=== PATIENT | female | born 1980 | race Caucasian/White ===

== ENCOUNTER 2016-11-22 12:54 | Outpatient (RCR) | payer MEDICARE, MEDICAID ==
[2016-09-03 12:15] LABS: BASOPHILS % (AUTO) 1 % (0-10); EOSINOPHILS # (AUTO) 0.4 10^3/uL (0.0-0.3); EOSINOPHILS % (AUTO) 6 % (0-10); LYMPHOCYTES # (AUTO) 2.5 X 10^3 (1.0-4.0); LYMPHOCYTES % (AUTO) 33 % (12-44); MEAN CORPUSCULAR HEMOGLOBIN 30 PG (25-34); MEAN CORPUSCULAR HGB CONC 33 G/DL (32-36); MEAN CORPUSCULAR VOLUME 91 FL (80-99); MEAN PLATELET VOLUME 10.6 FL (7.4-10.4); MONOCYTES # (AUTO) 0.5 X 10^3 (0.0-1.0); MONOCYTES % (AUTO) 6 % (0-12); NEUTROPHILS # (AUTO) 4.2 X 10^3 (1.8-7.8); NEUTROPHILS % (AUTO) 55 % (42-75); PLATELET COUNT 184 10^3/uL (130-400); RED CELL DISTRIBUTION WIDTH 13.5 % (10.0-14.5); WHITE BLOOD COUNT 7.6 10^3/uL (4.3-11.0)
[2016-09-12 11:45] LABS: BASOPHILS % (AUTO) 0 % (0-10); EOSINOPHILS # (AUTO) 0.4 10^3/uL (0.0-0.3); EOSINOPHILS % (AUTO) 6 % (0-10); LYMPHOCYTES # (AUTO) 2.1 X 10^3 (1.0-4.0); LYMPHOCYTES % (AUTO) 33 % (12-44); MEAN CORPUSCULAR HEMOGLOBIN 30 PG (25-34); MEAN CORPUSCULAR HGB CONC 33 G/DL (32-36); MEAN CORPUSCULAR VOLUME 92 FL (80-99); MEAN PLATELET VOLUME 10.3 FL (7.4-10.4); MONOCYTES # (AUTO) 0.4 X 10^3 (0.0-1.0); MONOCYTES % (AUTO) 7 % (0-12); NEUTROPHILS # (AUTO) 3.4 X 10^3 (1.8-7.8); NEUTROPHILS % (AUTO) 55 % (42-75); PLATELET COUNT 226 10^3/uL (130-400); RED BLOOD COUNT 3.45 10^6/uL (4.35-5.85); RED CELL DISTRIBUTION WIDTH 13.9 % (10.0-14.5); WHITE BLOOD COUNT 6.3 10^3/uL (4.3-11.0)
[2016-09-26 14:36] LABS: BASOPHILS % (AUTO) 1 % (0-10); EOSINOPHILS # (AUTO) 0.4 10^3/uL (0.0-0.3); EOSINOPHILS % (AUTO) 5 % (0-10); LYMPHOCYTES # (AUTO) 2.8 X 10^3 (1.0-4.0); LYMPHOCYTES % (AUTO) 37 % (12-44); MEAN CORPUSCULAR HEMOGLOBIN 30 PG (25-34); MEAN CORPUSCULAR HGB CONC 32 G/DL (32-36); MEAN CORPUSCULAR VOLUME 93 FL (80-99); MEAN PLATELET VOLUME 10.9 FL (7.4-10.4); MONOCYTES # (AUTO) 0.6 X 10^3 (0.0-1.0); MONOCYTES % (AUTO) 8 % (0-12); NEUTROPHILS # (AUTO) 3.8 X 10^3 (1.8-7.8); NEUTROPHILS % (AUTO) 50 % (42-75); PLATELET COUNT 175 10^3/uL (130-400); WHITE BLOOD COUNT 7.6 10^3/uL (4.3-11.0)
[2016-10-10 14:41] LABS: BASOPHILS % (AUTO) 1 % (0-10); EOSINOPHILS # (AUTO) 0.3 10^3/uL (0.0-0.3); EOSINOPHILS % (AUTO) 5 % (0-10); LYMPHOCYTES # (AUTO) 2.1 X 10^3 (1.0-4.0); LYMPHOCYTES % (AUTO) 32 % (12-44); MEAN CORPUSCULAR HEMOGLOBIN 30 PG (25-34); MEAN CORPUSCULAR HGB CONC 33 G/DL (32-36); MEAN CORPUSCULAR VOLUME 91 FL (80-99); MEAN PLATELET VOLUME 10.5 FL (7.4-10.4); MONOCYTES # (AUTO) 0.5 X 10^3 (0.0-1.0); MONOCYTES % (AUTO) 7 % (0-12); NEUTROPHILS # (AUTO) 3.6 X 10^3 (1.8-7.8); NEUTROPHILS % (AUTO) 56 % (42-75); PLATELET COUNT 214 10^3/uL (130-400); RED BLOOD COUNT 3.89 10^6/uL (4.35-5.85); RED CELL DISTRIBUTION WIDTH 13.9 % (10.0-14.5); WHITE BLOOD COUNT 6.5 10^3/uL (4.3-11.0)
[2016-10-24 14:36] LABS: BASOPHILS % (AUTO) 1 % (0-10); EOSINOPHILS # (AUTO) 0.4 10^3/uL (0.0-0.3); EOSINOPHILS % (AUTO) 5 % (0-10); LYMPHOCYTES # (AUTO) 2.9 X 10^3 (1.0-4.0); LYMPHOCYTES % (AUTO) 40 % (12-44); MEAN CORPUSCULAR HEMOGLOBIN 30 PG (25-34); MEAN CORPUSCULAR HGB CONC 33 G/DL (32-36); MEAN CORPUSCULAR VOLUME 90 FL (80-99); MEAN PLATELET VOLUME 11.3 FL (7.4-10.4); MONOCYTES # (AUTO) 0.5 X 10^3 (0.0-1.0); MONOCYTES % (AUTO) 6 % (0-12); NEUTROPHILS # (AUTO) 3.6 X 10^3 (1.8-7.8); NEUTROPHILS % (AUTO) 49 % (42-75); PLATELET COUNT 153 10^3/uL (130-400); RED BLOOD COUNT 3.46 10^6/uL (4.35-5.85); RED CELL DISTRIBUTION WIDTH 12.9 % (10.0-14.5); WHITE BLOOD COUNT 7.3 10^3/uL (4.3-11.0)
[2016-11-07 13:52] LABS: BASOPHILS % (AUTO) 1 % (0-10); EOSINOPHILS # (AUTO) 0.3 10^3/uL (0.0-0.3); EOSINOPHILS % (AUTO) 5 % (0-10); LYMPHOCYTES # (AUTO) 1.9 X 10^3 (1.0-4.0); LYMPHOCYTES % (AUTO) 35 % (12-44); MEAN CORPUSCULAR HEMOGLOBIN 30 PG (25-34); MEAN CORPUSCULAR HGB CONC 32 G/DL (32-36); MEAN CORPUSCULAR VOLUME 93 FL (80-99); MEAN PLATELET VOLUME 10.9 FL (7.4-10.4); MONOCYTES # (AUTO) 0.3 X 10^3 (0.0-1.0); MONOCYTES % (AUTO) 6 % (0-12); NEUTROPHILS # (AUTO) 2.9 X 10^3 (1.8-7.8); NEUTROPHILS % (AUTO) 53 % (42-75); PLATELET COUNT 184 10^3/uL (130-400); RED BLOOD COUNT 3.48 10^6/uL (4.35-5.85); RED CELL DISTRIBUTION WIDTH 13.5 % (10.0-14.5); WHITE BLOOD COUNT 5.5 10^3/uL (4.3-11.0)
[~2016-11-22 12:54] MED LIST: AMOX500C2 PO; BUTA1CAP39 PO; CEPH500C PO; CITA10TA70 PO; DARBEPOETIN 40 MCG/1 ML ARANESP IJ SCH; DICY10CA26 PO; DICY20TA10 PO; DICY20TA57 PO; FLDR.1T PO; FLUD0.1T7 PO; GEMF600T3 PO; GENT3.5O18 OU; GMFB600T PO; INSASP10V SC; INSU100I14 SC; INSU100I16 SQ; INSU100I5 SC; INSU100V16 SC; INSU100V5 SQ; LEVO500T69 PO; LORA10TA7 PO; NITR-65 PO; NOVOLOG PUMP; ONDA8TAB6 PO; ONDAN4ODT PO; SULF1TAB38 PO; TRAM50TA2 PO; TRM50T PO
[2016-11-22 13:10] LABS: BASOPHILS % (AUTO) 1 % (0-10); EOSINOPHILS # (AUTO) 0.2 10^3/uL (0.0-0.3); EOSINOPHILS % (AUTO) 3 % (0-10); LYMPHOCYTES # (AUTO) 2.6 X 10^3 (1.0-4.0); LYMPHOCYTES % (AUTO) 33 % (12-44); MEAN CORPUSCULAR HEMOGLOBIN 31 PG (25-34); MEAN CORPUSCULAR HGB CONC 34 G/DL (32-36); MEAN CORPUSCULAR VOLUME 91 FL (80-99); MEAN PLATELET VOLUME 10.2 FL (7.4-10.4); MONOCYTES # (AUTO) 0.6 X 10^3 (0.0-1.0); MONOCYTES % (AUTO) 7 % (0-12); NEUTROPHILS # (AUTO) 4.5 X 10^3 (1.8-7.8); NEUTROPHILS % (AUTO) 56 % (42-75); PLATELET COUNT 174 10^3/uL (130-400); RED BLOOD COUNT 3.73 10^6/uL (4.35-5.85); RED CELL DISTRIBUTION WIDTH 14.1 % (10.0-14.5); WHITE BLOOD COUNT 7.9 10^3/uL (4.3-11.0)
== END 2016-12-02 | disposition home or self-care (01) ==
LOC: ONC 12:54
PROVIDERS: ATTEND Internal Medicine Hematology & Oncology
DX: N18.9 Chronic kidney disease, unspecified (principal); D63.1 Anemia in chronic kidney disease; E10.21 Type 1 diabetes mellitus with diabetic nephropathy; K58.9 Irritable bowel syndrome, unspecified; Z87.891 Personal history of nicotine dependence; Z79.899 Other long term (current) drug therapy; Z79.4 Long term (current) use of insulin
CPT/HCPCS: 36415; 85025; 96372

== ENCOUNTER → 2017-01-14 | Outpatient (CLI) | payer MEDICARE, MEDICAID ==
[~2017-01-14] MED LIST changes: -DARBEPOETIN 40 MCG/1 ML ARANESP IJ SCH
--- NOTE | 2017-01-16 09:09 | ECHOCARDIOGRAPHY REPORT ---
PROCEDURE PHYSICIAN: MELCHOR ALDANA DATE OF PROCEDURE: 01/14/2017 TWO DIMENSIONAL ECHOCARDIOGRAM REPORT PRIMARY PHYSICIAN: Dr. Peralta OTHER PHYSICIAN: Shanita Soto APRN REFERRING PHYSICIAN: ORDERING PHYSICIAN: Dr. Aldana INDICATION FOR THE PROCEDURE: Shortness of breath. MEASUREMENTS DERIVED VALUES LV DIAMETER (LAX) NORMALS NORMALS Diastolic 4.4 (3.6-5.2) Eject. Fract. (60%+/-6%) Systolic (2.3-3.9) Diastolic Vol. % Shortening (0.22-0.42) Systolic Vol. Aortic Root 2.4 IVS THICKNESS Diastolic 0.9 (0.6-1.1) LVPW THICKNESS Diastolic 0.9 (0.6-1.1) LA DIAMETER Systolic 3.4 (2.1-3.7) DESCRIPTION: Two-dimensional echocardiography shows normal global left ventricular systolic function with normal regional wall motion. Aortic, mitral and tricuspid valve leaflets show good leaflet excursion. There is no significant pericardial effusion. Only minimal amount of pericardial fluid is seen which does not appear to be of any hemodynamic significance. Aortic valve leaflet structure is not very well visualized. Doppler imaging did not indicate significant valvular regurgitation or stenosis. Pulmonary artery systolic pressure is estimated to be approximately 25 mmHg. Mitral inflow is consistent with grade 1 diastolic dysfunction of the left ventricle. There is no evidence of significant intracardiac shunt on this transthoracic echocardiographic study. Inferior vena cava is of normal size and appears mostly collapsed during this study. CONCLUSION: 1. Normal global left ventricular systolic function with an ejection fraction of approximately 65%. 2. No evidence of significant valvular regurgitation or stenosis. 3. Pulmonary artery systolic pressure is estimated to be approximately 25 mmHg. 4. Mild diastolic dysfunction of the left ventricle. Job ID: [id number] Dictated Date: 01/15/2017 16:48:01 Pig Machine Operator Date: 01/16/2017 09:04:29 / heather
== END ==
LOC: CARD 11:33
PROVIDERS: ATTEND Internal Medicine Cardiovascular Disease
DX: R06.02 Shortness of breath (principal)
CPT/HCPCS: 93306

== ENCOUNTER → 2017-01-22 | Outpatient (CLI) | payer MEDICARE, MEDICAID ==
[~2017-01-22] VITALS: Ht 157.5 cm; Wt 62.1 kg
[~2017-01-22] MED LIST changes: +CATHETER FLUSH 10 ML SYR IV PRN; +ONDANSETRON 4 MG/2 ML (SDV) Z0FRAN IVP ONE; +ONDANSETRON 4 MG/2 ML (SDV) Z0FRAN ONE; +REGADENOSON 0.4 MG/5 ML SYR (LEXISCAN) IV ONE
[2017-01-22 12:54] VITALS: BP 203/86
[2017-01-22 13:07] VITALS: BP 148/61
[2017-01-22 13:11] VITALS: BP 170/62
--- NOTE | 2017-01-23 10:16 | STRESS TEST ---
PROCEDURE PHYSICIAN: MELCHOR ALDANA DATE OF PROCEDURE: 01/22/2017 RESTING AND POST REGADENOSON TECHNETIUM 99M TETROFOSMIN SPECT CT IMAGING: ORDERING PHYSICIAN: Dr. Aldana PRIMARY PHYSICIAN: Dr. Peralta. OTHER PHYSICIAN: Shanita Soto APRN CLINICAL DIAGNOSIS: Shortness of breath. Baseline images were carried out after injection of 10.61 mCi of technetium 99m tetrofosmin. This was followed by 0.4 mg of regadenoson and 29 mCi of technetium 99m tetrofosmin for stress imaging. The electrocardiogram showed sinus rhythm at baseline and it did not change significantly with the Regadenoson infusion. The patient had a headache prior to regadenoson infusion, which remained unchanged. She had some nausea with regadenoson infusion, which was treated with intravenous Zofran with success. Review of images at rest and following stress, does not indicate any distinct perfusion defects consistent with significant myocardial ischemia or infarction. Gated images show normal global left ventricular systolic function with normal regional wall motion. Left ventricular ejection fraction is 68%. Left ventricular end diastolic volume is 48 mL. TID is absent (to 0.93). The evaluation of this study is somewhat compromised because of considerable patient motion during image acquisition. CONCLUSIONS: 1. No evidence of significant myocardial ischemia or infarction on this study. 2. Normal regional wall motion. 3. Normal global left ventricular systolic function with a calculated ejection fraction of 68%. 4. Normal left ventricular cavity size. Job ID: [id number] Dictated Date: 01/22/2017 16:25:10 Academic Interventionist Date: 01/23/2017 10:11:58 / heather
== END ==
LOC: CARD 11:06
PROVIDERS: ATTEND Internal Medicine Cardiovascular Disease
DX: R06.02 Shortness of breath (principal)
CPT/HCPCS: 78452; 93017

== ENCOUNTER 2017-02-27 13:33 | Outpatient (RCR) | payer MEDICARE, MEDICAID ==
[2016-12-05 14:14] LABS: BASOPHILS % (AUTO) 1 % (0-10); EOSINOPHILS # (AUTO) 0.4 10^3/uL (0.0-0.3); EOSINOPHILS % (AUTO) 7 % (0-10); LYMPHOCYTES # (AUTO) 2.3 X 10^3 (1.0-4.0); LYMPHOCYTES % (AUTO) 38 % (12-44); MEAN CORPUSCULAR HEMOGLOBIN 30 PG (25-34); MEAN CORPUSCULAR HGB CONC 33 G/DL (32-36); MEAN CORPUSCULAR VOLUME 91 FL (80-99); MEAN PLATELET VOLUME 10.5 FL (7.4-10.4); MONOCYTES # (AUTO) 0.5 X 10^3 (0.0-1.0); MONOCYTES % (AUTO) 8 % (0-12); NEUTROPHILS # (AUTO) 2.9 X 10^3 (1.8-7.8); NEUTROPHILS % (AUTO) 47 % (42-75); PLATELET COUNT 163 10^3/uL (130-400); RED BLOOD COUNT 3.22 10^6/uL (4.35-5.85); RED CELL DISTRIBUTION WIDTH 13.3 % (10.0-14.5); WHITE BLOOD COUNT 6.1 10^3/uL (4.3-11.0)
[2016-12-05 14:49] LABS: ALBUMIN 3.4 G/DL (3.2-4.5); BILIRUBIN,TOTAL 0.2 MG/DL (0.1-1.0); CALCIUM 7.8 MG/DL (8.5-10.1); CREATININE SERUM 1.89 MG/DL (0.60-1.30); POTASSIUM 4.9 MMOL/L (3.6-5.0)
[2016-12-05 16:37] LABS: %SAT TOTAL IRON BINDING CAPIC 51 % (15-50); TIBC 181 ug/dL (280-380)
[2016-12-06 07:43] LABS: FERRITIN 145 ng/mL (15-150); UIBC 89 ug/dL (55-450)
[2016-12-26 14:34] LABS: BASOPHILS # (AUTO) 0.1 10^3/uL (0.0-0.1); BASOPHILS % (AUTO) 1 % (0-10); EOSINOPHILS # (AUTO) 0.3 10^3/uL (0.0-0.3); EOSINOPHILS % (AUTO) 4 % (0-10); LYMPHOCYTES # (AUTO) 2.8 X 10^3 (1.0-4.0); LYMPHOCYTES % (AUTO) 43 % (12-44); MEAN CORPUSCULAR HEMOGLOBIN 30 PG (25-34); MEAN CORPUSCULAR HGB CONC 34 G/DL (32-36); MEAN CORPUSCULAR VOLUME 91 FL (80-99); MONOCYTES # (AUTO) 0.5 X 10^3 (0.0-1.0); MONOCYTES % (AUTO) 8 % (0-12); NEUTROPHILS # (AUTO) 2.9 X 10^3 (1.8-7.8); NEUTROPHILS % (AUTO) 45 % (42-75); PLATELET COUNT 168 10^3/uL (130-400); RED BLOOD COUNT 3.39 10^6/uL (4.35-5.85); RED CELL DISTRIBUTION WIDTH 13.8 % (10.0-14.5); WHITE BLOOD COUNT 6.5 10^3/uL (4.3-11.0)
[2017-01-16 14:07] LABS: BASOPHILS # (AUTO) 0.1 10^3/uL (0.0-0.1); BASOPHILS % (AUTO) 1 % (0-10); EOSINOPHILS # (AUTO) 0.4 10^3/uL (0.0-0.3); EOSINOPHILS % (AUTO) 4 % (0-10); LYMPHOCYTES # (AUTO) 2.5 X 10^3 (1.0-4.0); LYMPHOCYTES % (AUTO) 29 % (12-44); MEAN CORPUSCULAR HEMOGLOBIN 31 PG (25-34); MEAN CORPUSCULAR HGB CONC 33 G/DL (32-36); MEAN CORPUSCULAR VOLUME 92 FL (80-99); MEAN PLATELET VOLUME 10.6 FL (7.4-10.4); MONOCYTES # (AUTO) 0.7 X 10^3 (0.0-1.0); MONOCYTES % (AUTO) 8 % (0-12); NEUTROPHILS # (AUTO) 5.1 X 10^3 (1.8-7.8); NEUTROPHILS % (AUTO) 59 % (42-75); PLATELET COUNT 174 10^3/uL (130-400); RED BLOOD COUNT 2.99 10^6/uL (4.35-5.85); RED CELL DISTRIBUTION WIDTH 13.7 % (10.0-14.5); WHITE BLOOD COUNT 8.7 10^3/uL (4.3-11.0)
[2017-02-06 13:31] LABS: BASOPHILS % (AUTO) 0 % (0-10); EOSINOPHILS # (AUTO) 0.4 10^3/uL (0.0-0.3); EOSINOPHILS % (AUTO) 6 % (0-10); LYMPHOCYTES # (AUTO) 2.4 X 10^3 (1.0-4.0); LYMPHOCYTES % (AUTO) 36 % (12-44); MEAN CORPUSCULAR HEMOGLOBIN 30 PG (25-34); MEAN CORPUSCULAR HGB CONC 32 G/DL (32-36); MEAN CORPUSCULAR VOLUME 92 FL (80-99); MEAN PLATELET VOLUME 10.9 FL (7.4-10.4); MONOCYTES # (AUTO) 0.5 X 10^3 (0.0-1.0); MONOCYTES % (AUTO) 7 % (0-12); NEUTROPHILS # (AUTO) 3.4 X 10^3 (1.8-7.8); NEUTROPHILS % (AUTO) 51 % (42-75); PLATELET COUNT 181 10^3/uL (130-400); RED CELL DISTRIBUTION WIDTH 13.5 % (10.0-14.5); WHITE BLOOD COUNT 6.7 10^3/uL (4.3-11.0)
[2017-02-06 13:57] LABS: ALBUMIN 3.6 G/DL (3.2-4.5); BILIRUBIN,TOTAL 0.2 MG/DL (0.1-1.0); CALCIUM 8.2 MG/DL (8.5-10.1); CREATININE SERUM 2.05 MG/DL (0.60-1.30); POTASSIUM 4.7 MMOL/L (3.6-5.0); TOTAL PROTEIN 6.2 G/DL (6.4-8.2)
[~2017-02-27 13:33] MED LIST changes: +DARBEPOETIN 40 MCG/1 ML ARANESP IJ SCH
== END 2017-03-05 | disposition home or self-care (01) ==
LOC: ONC 13:33
PROVIDERS: ATTEND Internal Medicine Hematology & Oncology
DX: N18.9 Chronic kidney disease, unspecified (principal); D63.1 Anemia in chronic kidney disease; E10.21 Type 1 diabetes mellitus with diabetic nephropathy; K58.9 Irritable bowel syndrome, unspecified; Z87.891 Personal history of nicotine dependence; Z79.899 Other long term (current) drug therapy; Z79.4 Long term (current) use of insulin
CPT/HCPCS: 36415; 80053; 82728; 83540; 85025; 96372; 99213

== ENCOUNTER → 2017-02-27 | Outpatient (CLI) | payer MEDICARE, MEDICAID ==
[~2017-02-27] MED LIST changes: -CATHETER FLUSH 10 ML SYR IV PRN; -ONDANSETRON 4 MG/2 ML (SDV) Z0FRAN IVP ONE; -ONDANSETRON 4 MG/2 ML (SDV) Z0FRAN ONE; -REGADENOSON 0.4 MG/5 ML SYR (LEXISCAN) IV ONE
[2017-02-27 14:38] LABS: BASOPHILS % (AUTO) 1 % (0-10); EOSINOPHILS # (AUTO) 0.3 10^3/uL (0.0-0.3); EOSINOPHILS % (AUTO) 5 % (0-10); LYMPHOCYTES # (AUTO) 2.5 X 10^3 (1.0-4.0); LYMPHOCYTES % (AUTO) 38 % (12-44); MEAN CORPUSCULAR HEMOGLOBIN 31 PG (25-34); MEAN CORPUSCULAR HGB CONC 33 G/DL (32-36); MEAN CORPUSCULAR VOLUME 92 FL (80-99); MEAN PLATELET VOLUME 11.8 FL (7.4-10.4); MONOCYTES # (AUTO) 0.4 X 10^3 (0.0-1.0); MONOCYTES % (AUTO) 6 % (0-12); NEUTROPHILS # (AUTO) 3.3 X 10^3 (1.8-7.8); NEUTROPHILS % (AUTO) 51 % (42-75); PLATELET COUNT 168 10^3/uL (130-400); RED CELL DISTRIBUTION WIDTH 13.2 % (10.0-14.5); WHITE BLOOD COUNT 6.4 10^3/uL (4.3-11.0)
[2017-02-27 14:56] LABS: ALBUMIN 3.5 G/DL (3.2-4.5); CALCIUM 8.3 MG/DL (8.5-10.1); CREATININE SERUM 2.03 MG/DL (0.60-1.30); PHOSPHORUS 3.3 MG/DL (2.3-4.7); POTASSIUM 5.1 MMOL/L (3.6-5.0)
[2017-02-28 07:31] LABS: CALCIUM PARA THYROID HORMONE 8.7 mg/dL (8.5-10.5)
== END ==
LOC: LAB 13:39
PROVIDERS: ATTEND Internal Medicine Nephrology
DX: N18.3 Chronic kidney disease, stage 3 (moderate) (principal); R80.9 Proteinuria, unspecified; E10.9 Type 1 diabetes mellitus without complications; D64.9 Anemia, unspecified; I95.89 Other hypotension
CPT/HCPCS: 36415; 80069; 82306; 83970; 85025

== ENCOUNTER → 2017-05-22 | Outpatient (CLI) | payer MEDICARE, MEDICAID ==
[~2017-05-22] MED LIST changes: -DARBEPOETIN 40 MCG/1 ML ARANESP IJ SCH
== END ==
LOC: LAB 12:43
PROVIDERS: ATTEND Optometrist
DX: E11.9 Type 2 diabetes mellitus without complications (principal)
CPT/HCPCS: 36415; 83036

== ENCOUNTER 2017-06-05 12:46 | Outpatient (RCR) | payer MEDICARE, MEDICAID ==
[2017-03-20 08:37] LABS: BASOPHILS # (AUTO) 0.1 10^3/uL (0.0-0.1); BASOPHILS % (AUTO) 1 % (0-10); EOSINOPHILS # (AUTO) 0.4 10^3/uL (0.0-0.3); EOSINOPHILS % (AUTO) 4 % (0-10); LYMPHOCYTES # (AUTO) 2.9 X 10^3 (1.0-4.0); LYMPHOCYTES % (AUTO) 31 % (12-44); MEAN CORPUSCULAR HEMOGLOBIN 30 PG (25-34); MEAN CORPUSCULAR HGB CONC 33 G/DL (32-36); MEAN CORPUSCULAR VOLUME 91 FL (80-99); MEAN PLATELET VOLUME 11.4 FL (7.4-10.4); MONOCYTES # (AUTO) 0.7 X 10^3 (0.0-1.0); MONOCYTES % (AUTO) 7 % (0-12); NEUTROPHILS # (AUTO) 5.4 X 10^3 (1.8-7.8); NEUTROPHILS % (AUTO) 58 % (42-75); PLATELET COUNT 195 10^3/uL (130-400); RED BLOOD COUNT 3.57 10^6/uL (4.35-5.85); RED CELL DISTRIBUTION WIDTH 13.3 % (10.0-14.5); WHITE BLOOD COUNT 9.3 10^3/uL (4.3-11.0)
[2017-04-10 14:43] LABS: BASOPHILS # (AUTO) 0.1 10^3/uL (0.0-0.1); BASOPHILS % (AUTO) 1 % (0-10); EOSINOPHILS # (AUTO) 0.4 10^3/uL (0.0-0.3); EOSINOPHILS % (AUTO) 4 % (0-10); LYMPHOCYTES # (AUTO) 2.9 X 10^3 (1.0-4.0); LYMPHOCYTES % (AUTO) 27 % (12-44); MEAN CORPUSCULAR HEMOGLOBIN 30 PG (25-34); MEAN CORPUSCULAR HGB CONC 33 G/DL (32-36); MEAN CORPUSCULAR VOLUME 92 FL (80-99); MEAN PLATELET VOLUME 10.7 FL (7.4-10.4); MONOCYTES # (AUTO) 0.6 X 10^3 (0.0-1.0); MONOCYTES % (AUTO) 5 % (0-12); NEUTROPHILS # (AUTO) 6.8 X 10^3 (1.8-7.8); NEUTROPHILS % (AUTO) 64 % (42-75); PLATELET COUNT 165 10^3/uL (130-400); RED BLOOD COUNT 3.57 10^6/uL (4.35-5.85); RED CELL DISTRIBUTION WIDTH 13.7 % (10.0-14.5); WHITE BLOOD COUNT 10.6 10^3/uL (4.3-11.0)
[2017-05-01 13:40] LABS: BASOPHILS % (AUTO) 1 % (0-10); EOSINOPHILS # (AUTO) 0.3 10^3/uL (0.0-0.3); EOSINOPHILS % (AUTO) 4 % (0-10); LYMPHOCYTES # (AUTO) 2.4 X 10^3 (1.0-4.0); LYMPHOCYTES % (AUTO) 34 % (12-44); MEAN CORPUSCULAR HEMOGLOBIN 30 PG (25-34); MEAN CORPUSCULAR HGB CONC 33 G/DL (32-36); MEAN CORPUSCULAR VOLUME 90 FL (80-99); MEAN PLATELET VOLUME 11.8 FL (7.4-10.4); MONOCYTES # (AUTO) 0.3 X 10^3 (0.0-1.0); MONOCYTES % (AUTO) 4 % (0-12); NEUTROPHILS # (AUTO) 3.9 X 10^3 (1.8-7.8); NEUTROPHILS % (AUTO) 57 % (42-75); PLATELET COUNT 173 10^3/uL (130-400); RED BLOOD COUNT 3.88 10^6/uL (4.35-5.85); RED CELL DISTRIBUTION WIDTH 13.4 % (10.0-14.5); WHITE BLOOD COUNT 6.9 10^3/uL (4.3-11.0)
[2017-05-01 13:59] LABS: ALBUMIN 3.9 G/DL (3.2-4.5); BILIRUBIN,TOTAL 0.3 MG/DL (0.1-1.0); CALCIUM 8.5 MG/DL (8.5-10.1); CREATININE SERUM 2.28 MG/DL (0.60-1.30); POTASSIUM 4.3 MMOL/L (3.6-5.0)
[2017-05-22 13:08] LABS: BASOPHILS # (AUTO) 0.1 10^3/uL (0.0-0.1); BASOPHILS % (AUTO) 1 % (0-10); EOSINOPHILS # (AUTO) 0.2 10^3/uL (0.0-0.3); EOSINOPHILS % (AUTO) 3 % (0-10); LYMPHOCYTES # (AUTO) 2.6 X 10^3 (1.0-4.0); LYMPHOCYTES % (AUTO) 38 % (12-44); MEAN CORPUSCULAR HEMOGLOBIN 30 PG (25-34); MEAN CORPUSCULAR HGB CONC 34 G/DL (32-36); MEAN CORPUSCULAR VOLUME 88 FL (80-99); MEAN PLATELET VOLUME 10.6 FL (7.4-10.4); MONOCYTES # (AUTO) 0.6 X 10^3 (0.0-1.0); MONOCYTES % (AUTO) 9 % (0-12); NEUTROPHILS # (AUTO) 3.5 X 10^3 (1.8-7.8); NEUTROPHILS % (AUTO) 50 % (42-75); PLATELET COUNT 219 10^3/uL (130-400); RED CELL DISTRIBUTION WIDTH 13.1 % (10.0-14.5)
[2017-05-22 13:43] LABS: ALBUMIN 3.9 GM/DL (3.2-4.5); BILIRUBIN,TOTAL 0.3 MG/DL (0.1-1.0); CALCIUM 8.8 MG/DL (8.5-10.1); CREATININE SERUM 2.37 MG/DL (0.60-1.30); ICTERUS 0.6 (-100-1.9); POTASSIUM 4.5 MMOL/L (3.6-5.0); TOTAL PROTEIN 7.3 GM/DL (6.4-8.2)
[~2017-06-05 12:46] MED LIST changes: +DARBEPOETIN 40 MCG/1 ML ARANESP IJ SCH; +DARBEPOETIN 40 MCG/ML (ARANESP) 1 ML VIAL SC SCH
[2017-06-05 13:09] LABS: BASOPHILS % (AUTO) 1 % (0-10); EOSINOPHILS # (AUTO) 0.2 10^3/uL (0.0-0.3); EOSINOPHILS % (AUTO) 3 % (0-10); LYMPHOCYTES # (AUTO) 1.9 X 10^3 (1.0-4.0); LYMPHOCYTES % (AUTO) 30 % (12-44); MEAN CORPUSCULAR HEMOGLOBIN 29 PG (25-34); MEAN CORPUSCULAR HGB CONC 33 G/DL (32-36); MEAN CORPUSCULAR VOLUME 90 FL (80-99); MEAN PLATELET VOLUME 10.8 FL (7.4-10.4); MONOCYTES # (AUTO) 0.4 X 10^3 (0.0-1.0); MONOCYTES % (AUTO) 7 % (0-12); NEUTROPHILS # (AUTO) 3.9 X 10^3 (1.8-7.8); NEUTROPHILS % (AUTO) 60 % (42-75); PLATELET COUNT 181 10^3/uL (130-400); RED BLOOD COUNT 3.02 10^6/uL (4.35-5.85); RED CELL DISTRIBUTION WIDTH 13.1 % (10.0-14.5); WHITE BLOOD COUNT 6.4 10^3/uL (4.3-11.0)
[2017-06-05 13:49] LABS: CALCIUM 8.7 MG/DL (8.5-10.1); CREATININE SERUM 2.19 MG/DL (0.60-1.30); POTASSIUM 5.2 MMOL/L (3.6-5.0)
== END 2017-06-18 | disposition home or self-care (01) ==
LOC: ONC 12:46
PROVIDERS: ATTEND Internal Medicine Hematology & Oncology
DX: N18.3 Chronic kidney disease, stage 3 (moderate) (principal); D63.1 Anemia in chronic kidney disease; E10.21 Type 1 diabetes mellitus with diabetic nephropathy; K58.9 Irritable bowel syndrome, unspecified; Z87.891 Personal history of nicotine dependence; Z79.899 Other long term (current) drug therapy; Z79.4 Long term (current) use of insulin
CPT/HCPCS: 36415; 80048; 80053; 82728; 83540; 85025; 96372; 99213

== ENCOUNTER → 2017-06-17 | Outpatient (CLI) | payer MEDICARE, MEDICAID ==
[~2017-06-17] MED LIST changes: -DARBEPOETIN 40 MCG/1 ML ARANESP IJ SCH; -DARBEPOETIN 40 MCG/ML (ARANESP) 1 ML VIAL SC SCH
[2017-06-17 13:01] LABS: MEAN PLATELET VOLUME 10.7 FL (7.4-10.4); RED BLOOD COUNT 3.44 10^6/uL (4.35-5.85); RED CELL DISTRIBUTION WIDTH 14.1 % (10.0-14.5); WHITE BLOOD COUNT 8.2 10^3/uL (4.3-11.0)
[2017-06-17 13:09] LABS: BILIRUBIN,URINE NEGATIVE (NEGATIVE); KETONES,URINE NEGATIVE (NEGATIVE); LEUKOCYTE ESTERASE ,URINE NEGATIVE (NEGATIVE); NITRITE,URINE NEGATIVE (NEGATIVE); PH,URINE 6 (5-9); PROTEIN,URINE 3+ (NEGATIVE); UROBILINOGEN,URINE NORMAL (NORMAL)
[2017-06-17 13:18] LABS: ALBUMIN 3.7 GM/DL (3.2-4.5); CALCIUM 8.4 MG/DL (8.5-10.1); CREATININE SERUM 2.22 MG/DL (0.60-1.30); PHOSPHORUS 3.5 MG/DL (2.3-4.7); POTASSIUM 4.5 MMOL/L (3.6-5.0)
[2017-06-17 13:20] LABS: WBC,URINE RARE /HPF
[2017-06-17 13:28] LABS: PROTEIN/CREATININE RATIO 0.51
== END ==
LOC: LAB 12:31
PROVIDERS: ATTEND Internal Medicine Nephrology
DX: E10.22 Type 1 diabetes mellitus with diabetic chronic kidney disease (principal); R80.9 Proteinuria, unspecified; D64.9 Anemia, unspecified; I95.89 Other hypotension; I95.1 Orthostatic hypotension
CPT/HCPCS: 36415; 80069; 81000; 82306; 82570; 84156; 85027

== ENCOUNTER 2017-07-31 11:29 | Outpatient (RCR) | payer MEDICARE, MEDICAID ==
[2017-07-03 14:44] LABS: BASOPHILS % (AUTO) 1 % (0-10); EOSINOPHILS # (AUTO) 0.3 10^3/uL (0.0-0.3); EOSINOPHILS % (AUTO) 4 % (0-10); LYMPHOCYTES # (AUTO) 2.6 X 10^3 (1.0-4.0); LYMPHOCYTES % (AUTO) 37 % (12-44); MEAN CORPUSCULAR HGB CONC 33 G/DL (32-36); MEAN CORPUSCULAR VOLUME 90 FL (80-99); MEAN PLATELET VOLUME 10.2 FL (7.4-10.4); MONOCYTES # (AUTO) 0.5 X 10^3 (0.0-1.0); MONOCYTES % (AUTO) 7 % (0-12); NEUTROPHILS # (AUTO) 3.7 X 10^3 (1.8-7.8); NEUTROPHILS % (AUTO) 52 % (42-75); PLATELET COUNT 198 10^3/uL (130-400); RED BLOOD COUNT 3.36 10^6/uL (4.35-5.85); RED CELL DISTRIBUTION WIDTH 13.6 % (10.0-14.5); WHITE BLOOD COUNT 7.1 10^3/uL (4.3-11.0)
[2017-07-03 14:45] LABS: MEAN CORPUSCULAR HEMOGLOBIN 29 PG (25-34)
[~2017-07-31 11:29] MED LIST changes: +DARBEPOETIN 40 MCG/1 ML ARANESP IJ SCH; +DARBEPOETIN 40 MCG/ML (ARANESP) 1 ML VIAL SC SCH
[2017-07-31 11:51] LABS: BASOPHILS # (AUTO) 0.1 10^3/uL (0.0-0.1); BASOPHILS % (AUTO) 1 % (0-10); EOSINOPHILS # (AUTO) 0.4 10^3/uL (0.0-0.3); EOSINOPHILS % (AUTO) 7 % (0-10); LYMPHOCYTES # (AUTO) 2.7 X 10^3 (1.0-4.0); LYMPHOCYTES % (AUTO) 43 % (12-44); MEAN CORPUSCULAR HEMOGLOBIN 30 PG (25-34); MEAN CORPUSCULAR HGB CONC 32 G/DL (32-36); MEAN CORPUSCULAR VOLUME 92 FL (80-99); MEAN PLATELET VOLUME 11.5 FL (7.4-10.4); MONOCYTES # (AUTO) 0.3 X 10^3 (0.0-1.0); MONOCYTES % (AUTO) 5 % (0-12); NEUTROPHILS # (AUTO) 2.9 X 10^3 (1.8-7.8); NEUTROPHILS % (AUTO) 45 % (42-75); PLATELET COUNT 191 10^3/uL (130-400); RED BLOOD COUNT 3.23 10^6/uL (4.35-5.85); RED CELL DISTRIBUTION WIDTH 12.9 % (10.0-14.5); WHITE BLOOD COUNT 6.4 10^3/uL (4.3-11.0)
== END 2017-08-24 | disposition home or self-care (01) ==
LOC: ONC 11:29
PROVIDERS: ATTEND Internal Medicine Hematology & Oncology
DX: N18.3 Chronic kidney disease, stage 3 (moderate) (principal); D63.1 Anemia in chronic kidney disease; E10.21 Type 1 diabetes mellitus with diabetic nephropathy; K58.9 Irritable bowel syndrome, unspecified; Z87.891 Personal history of nicotine dependence; Z79.899 Other long term (current) drug therapy; Z79.4 Long term (current) use of insulin
CPT/HCPCS: 36415; 85025; 96372

== ENCOUNTER → 2017-08-26 | Outpatient (CLI) | payer MEDICARE, MEDICAID ==
[~2017-08-26] MED LIST changes: -DARBEPOETIN 40 MCG/1 ML ARANESP IJ SCH; -DARBEPOETIN 40 MCG/ML (ARANESP) 1 ML VIAL SC SCH
[2017-08-26 12:10] LABS: MEAN PLATELET VOLUME 11.5 FL (7.4-10.4); RED BLOOD COUNT 3.44 10^6/uL (4.35-5.85); RED CELL DISTRIBUTION WIDTH 12.9 % (10.0-14.5); WHITE BLOOD COUNT 7.3 10^3/uL (4.3-11.0)
[2017-08-26 12:15] LABS: BILIRUBIN,URINE NEGATIVE (NEGATIVE); KETONES,URINE NEGATIVE (NEGATIVE); LEUKOCYTE ESTERASE ,URINE NEGATIVE (NEGATIVE); NITRITE,URINE POSITIVE (NEGATIVE); PH,URINE 6 (5-9); PROTEIN,URINE 2+ (NEGATIVE); UROBILINOGEN,URINE NORMAL (NORMAL)
[2017-08-26 12:29] LABS: ALBUMIN 3.7 GM/DL (3.2-4.5); CALCIUM 8.8 MG/DL (8.5-10.1); CREATININE SERUM 2.25 MG/DL (0.60-1.30); PHOSPHORUS 3.2 MG/DL (2.3-4.7); POTASSIUM 4.2 MMOL/L (3.6-5.0); URIC ACID 6.1 MG/DL (2.6-7.2)
[2017-08-26 12:34] LABS: PROTEIN/CREATININE RATIO 0.36
[2017-08-27 08:07] LABS: CALCIUM PARA THYROID HORMONE 8.7 mg/dL (8.5-10.5)
== END ==
LOC: LAB 11:40
PROVIDERS: ATTEND Internal Medicine Nephrology
DX: E10.9 Type 1 diabetes mellitus without complications (principal); N18.3 Chronic kidney disease, stage 3 (moderate); I95.1 Orthostatic hypotension; R80.9 Proteinuria, unspecified; D64.9 Anemia, unspecified
CPT/HCPCS: 36415; 80069; 81000; 82306; 82570; 82728; 83540; 83970; 84156; 84550; 85027; 87088

== ENCOUNTER 2017-11-20 14:55 | Outpatient (RCR) | payer MEDICARE, MEDICAID ==
[2017-08-28 13:31] LABS: BASOPHILS # (AUTO) 0.1 10^3/uL (0.0-0.1); BASOPHILS % (AUTO) 1 % (0-10); EOSINOPHILS # (AUTO) 0.4 10^3/uL (0.0-0.3); EOSINOPHILS % (AUTO) 6 % (0-10); HEMATOCRIT 31 % (35-52); HEMOGLOBIN 10.1 G/DL (11.5-16.0); LYMPHOCYTES # (AUTO) 2.4 X 10^3 (1.0-4.0); LYMPHOCYTES % (AUTO) 39 % (12-44); MEAN CORPUSCULAR HEMOGLOBIN 30 PG (25-34); MEAN CORPUSCULAR HGB CONC 33 G/DL (32-36); MEAN CORPUSCULAR VOLUME 91 FL (80-99); MEAN PLATELET VOLUME 11.9 FL (7.4-10.4); MONOCYTES # (AUTO) 0.4 X 10^3 (0.0-1.0); MONOCYTES % (AUTO) 6 % (0-12); NEUTROPHILS % (AUTO) 48 % (42-75); PLATELET COUNT 178 10^3/uL (130-400); RED BLOOD COUNT 3.42 10^6/uL (4.35-5.85); RED CELL DISTRIBUTION WIDTH 12.9 % (10.0-14.5); WHITE BLOOD COUNT 6.2 10^3/uL (4.3-11.0)
[2017-08-28 13:51] LABS: ALBUMIN 3.6 GM/DL (3.2-4.5); BILIRUBIN,TOTAL 0.2 MG/DL (0.1-1.0); CALCIUM 8.6 MG/DL (8.5-10.1); CREATININE SERUM 2.26 MG/DL (0.60-1.30); POTASSIUM 4.3 MMOL/L (3.6-5.0); TOTAL PROTEIN 6.4 GM/DL (6.4-8.2)
[2017-09-26 16:26] LABS: BASOPHILS % (AUTO) 1 % (0-10); EOSINOPHILS # (AUTO) 0.2 10^3/uL (0.0-0.3); EOSINOPHILS % (AUTO) 3 % (0-10); HEMATOCRIT 32 % (35-52); HEMOGLOBIN 10.4 G/DL (11.5-16.0); LYMPHOCYTES # (AUTO) 2.7 X 10^3 (1.0-4.0); LYMPHOCYTES % (AUTO) 40 % (12-44); MEAN CORPUSCULAR HEMOGLOBIN 30 PG (25-34); MEAN CORPUSCULAR HGB CONC 33 G/DL (32-36); MEAN CORPUSCULAR VOLUME 92 FL (80-99); MEAN PLATELET VOLUME 11.9 FL (7.4-10.4); MONOCYTES # (AUTO) 0.4 X 10^3 (0.0-1.0); MONOCYTES % (AUTO) 6 % (0-12); NEUTROPHILS # (AUTO) 3.4 X 10^3 (1.8-7.8); NEUTROPHILS % (AUTO) 50 % (42-75); PLATELET COUNT 188 10^3/uL (130-400); RED BLOOD COUNT 3.48 10^6/uL (4.35-5.85); WHITE BLOOD COUNT 6.8 10^3/uL (4.3-11.0)
[2017-10-23 15:17] LABS: BASOPHILS % (AUTO) 0 % (0-10); EOSINOPHILS # (AUTO) 0.3 10^3/uL (0.0-0.3); EOSINOPHILS % (AUTO) 3 % (0-10); HEMATOCRIT 31 % (35-52); HEMOGLOBIN 10.6 G/DL (11.5-16.0); LYMPHOCYTES # (AUTO) 3.1 X 10^3 (1.0-4.0); LYMPHOCYTES % (AUTO) 35 % (12-44); MEAN CORPUSCULAR HEMOGLOBIN 31 PG (25-34); MEAN CORPUSCULAR HGB CONC 34 G/DL (32-36); MEAN CORPUSCULAR VOLUME 90 FL (80-99); MEAN PLATELET VOLUME 11.6 FL (7.4-10.4); MONOCYTES # (AUTO) 0.5 X 10^3 (0.0-1.0); MONOCYTES % (AUTO) 6 % (0-12); NEUTROPHILS # (AUTO) 5.1 X 10^3 (1.8-7.8); NEUTROPHILS % (AUTO) 57 % (42-75); PLATELET COUNT 208 10^3/uL (130-400); RED BLOOD COUNT 3.47 10^6/uL (4.35-5.85); RED CELL DISTRIBUTION WIDTH 13.4 % (10.0-14.5)
[~2017-11-20 14:55] MED LIST changes: +DARBEPOETIN 40 MCG/1 ML ARANESP IJ SCH; +DARBEPOETIN 40 MCG/ML (ARANESP) 1 ML VIAL SC SCH
[2017-11-20 15:06] LABS: BASOPHILS # (AUTO) 0.1 10^3/uL (0.0-0.1); BASOPHILS % (AUTO) 1 % (0-10); EOSINOPHILS # (AUTO) 0.4 10^3/uL (0.0-0.3); EOSINOPHILS % (AUTO) 4 % (0-10); HEMATOCRIT 33 % (35-52); HEMOGLOBIN 10.8 G/DL (11.5-16.0); LYMPHOCYTES # (AUTO) 3.2 X 10^3 (1.0-4.0); LYMPHOCYTES % (AUTO) 38 % (12-44); MEAN CORPUSCULAR HEMOGLOBIN 30 PG (25-34); MEAN CORPUSCULAR HGB CONC 33 G/DL (32-36); MEAN CORPUSCULAR VOLUME 91 FL (80-99); MEAN PLATELET VOLUME 11.3 FL (7.4-10.4); MONOCYTES # (AUTO) 0.6 X 10^3 (0.0-1.0); MONOCYTES % (AUTO) 7 % (0-12); NEUTROPHILS # (AUTO) 4.3 X 10^3 (1.8-7.8); NEUTROPHILS % (AUTO) 50 % (42-75); PLATELET COUNT 213 10^3/uL (130-400); RED BLOOD COUNT 3.59 10^6/uL (4.35-5.85); RED CELL DISTRIBUTION WIDTH 13.3 % (10.0-14.5); WHITE BLOOD COUNT 8.5 10^3/uL (4.3-11.0)
== END 2017-11-26 | disposition home or self-care (01) ==
LOC: ONC 14:55
PROVIDERS: ATTEND Internal Medicine Hematology & Oncology
DX: N18.3 Chronic kidney disease, stage 3 (moderate) (principal); D63.1 Anemia in chronic kidney disease; E10.21 Type 1 diabetes mellitus with diabetic nephropathy; K58.9 Irritable bowel syndrome, unspecified; Z87.891 Personal history of nicotine dependence; Z79.899 Other long term (current) drug therapy; Z79.4 Long term (current) use of insulin
CPT/HCPCS: 36415; 80053; 85025; 96372

== ENCOUNTER → 2018-02-21 | Outpatient (CLI) | payer MEDICARE, MEDICAID ==
[~2018-02-21] MED LIST changes: -DARBEPOETIN 40 MCG/1 ML ARANESP IJ SCH; -DARBEPOETIN 40 MCG/ML (ARANESP) 1 ML VIAL SC SCH
[2018-02-21 11:35] LABS: HEMOGLOBIN 9.9 G/DL (11.5-16.0); MEAN PLATELET VOLUME 10.9 FL (7.4-10.4); RED BLOOD COUNT 3.31 10^6/uL (4.35-5.85); RED CELL DISTRIBUTION WIDTH 13.2 % (10.0-14.5); WHITE BLOOD COUNT 9.3 10^3/uL (4.3-11.0)
[2018-02-21 11:42] LABS: BILIRUBIN,URINE NEGATIVE (NEGATIVE); CLARITY,URINE CLEAR; COLOR,URINE YELLOW; GLUCOSE, URINE (UA) NEGATIVE (NEGATIVE); KETONES,URINE NEGATIVE (NEGATIVE); LEUKOCYTE ESTERASE ,URINE NEGATIVE (NEGATIVE); NITRITE,URINE NEGATIVE (NEGATIVE); PH,URINE 7 (5-9); PROTEIN,URINE 2+ (NEGATIVE); UROBILINOGEN,URINE NORMAL (NORMAL)
[2018-02-21 11:55] LABS: ALBUMIN 3.5 GM/DL (3.2-4.5); CALCIUM 8.2 MG/DL (8.5-10.1); CREATININE SERUM 2.16 MG/DL (0.60-1.30); PHOSPHORUS 3.1 MG/DL (2.3-4.7); POTASSIUM 4.1 MMOL/L (3.6-5.0); URIC ACID 6.2 MG/DL (2.6-7.2)
[2018-02-21 11:59] LABS: BACTERIA,URINE TRACE /HPF
== END ==
LOC: LAB 11:18
PROVIDERS: ATTEND Internal Medicine Nephrology
DX: E10.9 Type 1 diabetes mellitus without complications (principal); N18.3 Chronic kidney disease, stage 3 (moderate); R80.9 Proteinuria, unspecified; D64.9 Anemia, unspecified; I95.89 Other hypotension; I95.1 Orthostatic hypotension; E55.9 Vitamin D deficiency, unspecified
CPT/HCPCS: 36415; 80069; 81000; 82570; 83735; 84156; 84550; 85027

== ENCOUNTER → 2018-03-04 | Outpatient (CLI) | payer MEDICARE, MEDICAID ==
[2018-03-04 09:24] LABS: FREE T4 (FREE THYROXINE) 1.22 NG/DL (0.70-1.48)
== END ==
LOC: LAB 08:10
DX: E10.8 Type 1 diabetes mellitus with unspecified complications (principal)
CPT/HCPCS: 36415; 82024; 82533; 82607; 82784; 83516; 84439; 84443; 86255; 86376

== ENCOUNTER 2018-04-23 05:40 | Outpatient (CLI) | payer MEDICARE, MEDICAID ==
[~2018-04-23] VITALS: Ht 157.5 cm; Wt 54.4 kg
[2018-04-23] MEDS ORDERED: CITA20TA9 PO (11:07)
[2018-04-23] MEDS ORDERED: CHOL400T PO (11:07)
[2018-04-23] MEDS ORDERED: ROPI0.25 PO (11:07)
[2018-04-23] MEDS ORDERED: BUTA1CAP17 PO (11:07)
[2018-04-23] MEDS ORDERED: ONDA4TAB8 SL (11:07)
[2018-04-23] MEDS ORDERED: RIZA10TA25 PO (11:07)
[2018-04-23] MEDS ORDERED: PNV11TAB5 PO (11:07)
[2018-04-23] MEDS ORDERED: FLDR.1T PO (11:07)
[2018-04-23] MEDS ORDERED: NORG1TAB83 PO (11:07)
[2018-04-23] MEDS ORDERED: TRAM50TA2 PO (11:07)
[2018-04-23] MEDS ORDERED: SODI650T PO (11:07)
[2018-04-23] MEDS ORDERED: DICY20TA10 PO (11:07)
[2018-04-23] MEDS ORDERED: TOPI25TA10 PO (11:07)
[2018-04-23] MEDS ORDERED: FERR325T5 PO (11:07)
[2018-04-23] MEDS ORDERED: DARB40DI IJ (11:07)
== END 2018-04-23 11:13 ==
LOC: PREOP 05:40
PROVIDERS: ATTEND Specialist
DX: Z01.818 Encounter for other preprocedural examination (principal); H25.11 Age-related nuclear cataract, right eye

== ENCOUNTER 2018-04-25 06:34 | Day surgery (SDC) | payer MEDICARE, MEDICAID ==
[~2018-04-25] VITALS: Ht 157.5 cm; Wt 54.4 kg
[~2018-04-25 06:34] MED LIST changes: +BUTA1CAP17 PO; +CHOL400T PO; +CITA20TA9 PO; +DARB40DI IJ; +FERR325T5 PO; +NORG1TAB83 PO; +ONDA4TAB8 SL; +PNV11TAB5 PO; +RIZA10TA25 PO; +ROPI0.25 PO; +SODI650T PO; +TOPI25TA10 PO
--- OUTSIDE RECORDS SUMMARY | 2018-04-25 06:37 | XMS REPORT | Clinical Summary ---
Author Author [facility] Organization [facility] Address Unknown Phone Unavailable Care Team Providers Care Lyft Driver Name Role Phone Charles Shanita [facility] DIRECTOR PCP Source Comments Some departments are not documenting in the electronic medical record. If you do not see the information that you expected, contact Release of Information in the Health Information Management department at [phone] for further assistance in locating additional records.[facility] Allergies Active Allergy Reactions Severity Noted Date Comments Losartan UNKNOWN Low 02/21/2018 Gabapentin UNKNOWN Low 02/21/2018 Lisinopril UNKNOWN Low 02/21/2018 Niacin UNKNOWN Low 02/21/2018 Zghgnim-Hkf-Zph Reductase HIVES, SEE COMMENTS, Medium 02/28/2018 Difficulty breathing Inhibitors EDEMA Current Medications Prescription Sig. Disp. Refills Start End Date Status Date vitamins, w/iron Take 1 tablet by mouth Active & folate 65/1 mg tab daily. darbepoetin goyo Inject 100 mcg under the Active (ARANESP) 100 mcg/0.5 mL skin once. syrg fludrocortisone Take 0.1 mg by mouth Active (FLORINEF) 0.1 mg tablet daily. ferrous sulfate (FEOSOL, Take 325 mg by mouth Active FEROSUL) 325 mg (65 mg daily. Take on an empty iron) tablet stomach at least 1 hour before or 2 hours after food. cholecalciferol (VITAMIN Take 400 Units by mouth Active D-3) 400 unit tab tablet daily. GLUCAGON IJ Inject to area(s) as Active directed. ondansetron (ZOFRAN) 4 mg Take 4 mg by mouth every Active tablet 8 hours as needed for Nausea or Vomiting. blood sugar diagnostic Use 1 strip as directed Active test strip ten times daily. citalopram (CELEXA) 20 mg Take 20 mg by mouth Active tablet daily. rOPINIRole (REQUIP) 0.25 Take 0.25 mg by mouth Active mg tablet three times daily. dicyclomine (BENTYL) 20 Take 20 mg by mouth every Active mg tablet 6 hours. sodium bicarbonate 325 mg Take 650 mg by mouth Active tablet twice daily. rizatriptan (MAXALT-OBSTETRICIAN AND GYNAECOLOGIST) Dissolve 10 mg by mouth Active 10 mg rapid dissolve once as needed for tablet Headache. butalbital/acetaminophen/ Take 1 tablet by mouth Active caffeine(+) (FIORICET) every 4 hours as needed 50/325/40 mg tablet for Headache. traMADol (ULTRAM) 50 mg Take 50 mg by mouth every Active tablet 6 hours as needed for Pain. topiramate (TOPAMAX) 25 Take 25 mg by mouth every Active mg tablet 12 hours. norgestimate/ethinyl Take 1 tablet by mouth Active estradiol(+) (ORTHO daily. TRI-CYCLEN; TRI-SPRINTEC) .18/.215/.25-35 mg-mcg (28) tablet NOVOLOG U-100 INSULIN Inject under the skin. 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); CKD (chronic kidney disease) stage 3, GFR 30-59 ml/min; Diabetic polyneuropathy associated with type 1 diabetes mellitus (HCC); Autonomic dysfunction; Orthostatic hypotension; Supine hypertension from Last 3 Months Family History Relation Name Status Comments Son Alive Social History Tobacco Use Types Packs/Day Years Used Date Former Smoker Smokeless Tobacco: Never Used Sex Assigned at Date Recorded Not on file Last Filed Vital Signs Vital Sign Reading Time Taken Blood Pressure 163/91 02/28/2018 10:31 AM CDT Pulse 96 02/28/2018 10:31 AM CDT Temperature - - Respiratory Rate - - Oxygen Saturation - - Inhaled Oxygen - - Concentration Weight 55.4 kg (122 lb 3.2 oz) 02/28/2018 10:10 AM CDT Height 157.5 cm (5' 2") 02/28/2018 10:10 AM CDT Body Mass Index 22.35 02/28/2018 10:10 AM CDT Plan of Treatment Health Maintenance Due Date Last Done Comments PHYSICAL (COMPREHENSIVE) 1988 EXAM PERTUSSIS VACCINE 1992 HIV SCREENING 1996 TETANUS VACCINE 1998 DILATED EYE EXAM 1999 FOOT EXAM 1999 MICROALBUMIN 1999 PNEUMONIA VACCINE (DM) 1999 CERVICAL CANCER SCREENING 2011 INFLUENZA VACCINE 08/25/2018 HBA1C 08/30/2018 02/28/2018 Procedures Procedure Name Priority Date/Time Associated Diagnosis Comments INSULIN PUMP DOWNLOAD Routine 02/28/2018 Uncontrolled type 1 10:20 AM CDT diabetes mellitus with complication (HCC) from Last 3 Months Results * INSULIN PUMP DOWNLOAD (02/28/2018 10:20 AM) Specimen Performing Laboratory IN CLINIC * POC HEMOGLOBIN A1C (02/28/2018 10:20 AM) Component Value Ref Range Poc Hemoglobin A1C 7.1 Specimen Performing Laboratory Blood, capillary - Blood IN CLINIC * POC GLUCOSE QUANTITATIVE BLOOD (02/28/2018 10:15 AM) Component Value Ref Range Glucose, POC 223 Specimen Performing Laboratory Blood, capillary IN CLINIC from Last 3 Months
--- OUTSIDE RECORDS SUMMARY | 2018-04-25 06:37 | XMS REPORT | Encounter Summary ---
Author Author [facility] Organization [facility] Address Unknown Phone Unavailable Care Team Providers Care Manager Environmental Health Name Role Phone CharlesShanita ORCHID HAND PCP Reason for Visit * Reason Comments Other Med Records Encounter Details Date Type Department Care Team Description 03/04/2018 Telephone [facility] Deisy Baeza MD Other ( Med Records) Physicians - Internal [address] [facility] Medicine [address] [place] [address] Medical Office Bldg 5th [phone] [address] [place] [address] Social History Tobacco Use Types Packs/Day Years Used Date Former Smoker Smokeless Tobacco: Never Used Sex Assigned at Date Recorded Not on file as of this encounter Miscellaneous Notes * Telephone Encounter - eRyes Valerio LPN - 03/04/2018 11:41 AM CDT Received medical records from [facility]. Routing to Dr. Baeza for her review. in this encounter Plan of Treatment Not on fileas of this encounter Visit Diagnoses Not on filein this encounter
--- OUTSIDE RECORDS SUMMARY | 2018-04-25 06:37 | XMS REPORT | Encounter Summary ---
Author Author [facility] Organization [facility] Address Unknown Phone Unavailable Care Team Providers Care Waste Disposal Plant Operator Name Role Phone Shanita Soto APRN PCP Reason for Visit * Reason Comments Referral Encounter Details Date Type Department Care Team Description 03/03/2018 Telephone [facility] Deisy Baeza MD Referral Physicians - Internal [address] [facility] Medicine [address] [place] [address] Medical Office [facility] [phone] [address] [place] [address] Social History Tobacco Use Types Packs/Day Years Used Date Former Smoker Smokeless Tobacco: Never Used Sex Assigned at Date Recorded Not on file as of this encounter Miscellaneous Notes * Telephone Encounter - Reyes Valerio LPN - 03/04/2018 8:38 AM CDT Fax verifications received 03/03 at 3:27 pm. * Telephone Encounter - Reyes Valerio LPN - 03/03/2018 3:36 PM CDT Faxed referrals to Dr. Neisha Cifuentes at [phone] Shanita Soto at [phone]. * Telephone Encounter - Reyes Valerio LPN - 03/03/2018 2:11 PM CDT Called patient. LVM per MARGO with provider message. * Telephone Encounter - Deisy Baeza MD - 03/03/2018 11:17 AM CDT Please call patient and let her know that I have sent a cardiology referral here at to discuss alternative options to bubba. in this encounter Plan of Treatment Not on fileas of this encounter Visit Diagnoses Not on filein this encounter
--- OUTSIDE RECORDS SUMMARY | 2018-04-25 06:37 | XMS REPORT | Encounter Summary ---
Author Author [facility] Organization [facility] Address Unknown Phone Unavailable Care Team Providers Care System Sales Consultant Name Role Phone Shanita Soto LOCK AND DAM OPERATOR PCP Reason for Visit * Reason Comments Paperwork [facility]/Dr. Shanita Soto's office Encounter Details Date Type Department Care Team Description 03/05/2018 Telephone [facility] Deisy Baeza MD Paperwork ([facility]LE/Dr. Diehl Physicians - Internal [address] Soto's office) Medicine [address] [facility] [address] [place] [address] [place], [place] [phone] [id number] [phone] Social History Tobacco Use Types Packs/Day Years Used Date Former Smoker Smokeless Tobacco: Never Used Sex Assigned at Date Recorded Not on file as of this encounter Miscellaneous Notes * Telephone Encounter - Gisel Keith RN - 03/05/2018 2:53 PM CDT Received requested information from Dr. Shanita Soto's office/[facility] Will place in Dr Bejarano's folder for her review Closing encounter in this encounter Plan of Treatment Not on fileas of this encounter Visit Diagnoses Not on filein this encounter
--- OUTSIDE RECORDS SUMMARY | 2018-04-25 06:37 | XMS REPORT | Encounter Summary ---
Author Author [facility] Organization [facility] Address Unknown Phone Unavailable Care Team Providers Care Truck Driver Name Role Phone CharlesShanita sanchez PET SITTER PCP Reason for Visit * Reason Comments Other Diabetic Supplies Encounter Details Date Type Department Care Team Description 03/27/2018 Telephone [facility] Deisy Baeza MD Other ( Diabetic Supplies) Physicians - Internal [address] [facility] Medicine [address] [place] [address] Medical Office Bldg 5th [phone] Fl Pod [address] [place] [address] Social History Tobacco Use Types Packs/Day Years Used Date Former Smoker Smokeless Tobacco: Never Used Sex Assigned at Date Recorded Not on file as of this encounter Miscellaneous Notes * Telephone Encounter - Reyes Valerio LPN - 04/03/2018 2:01 PM CDT Received LMN for insulin pump and supplies from [employer]. Routed to Dr. Linton for signature. Faxed signed LMN to [phone]. Fax verification received 03/31. * Telephone Encounter - Reyes Valerio LPN - 03/27/2018 1:42 PM CDT Patient called back. Patient stated DME company [employer] will fax request. Will call patient if not received by Saturday 03/31. * Telephone Encounter - Reyes Valerio LPN - 03/27/2018 1:27 PM CDT Patient called and LVM. Patient is wanting to have Dr. Baeza sign for diabetic supplies. Called patient. LVM letting her know DME company needs to send request to our office. Left fax number for her. in this encounter Plan of Treatment Not on fileas of this encounter Visit Diagnoses Not on filein this encounter
--- OUTSIDE RECORDS SUMMARY | 2018-04-25 06:38 | XMS REPORT ---
Author Author ALAN CARABALLO [facility] [employer] Address Unknown Phone Unavailable Care Team Providers Care Needle Loom Setter Name Role Phone ALAN CARABALLO CP Unavailable Allergies No Known Allergies Problems Problem Type Condition ICD-9 Code Onset Dates Condition Status Problem Pain in soft tissues of limb 729.5 Active Problem Chills (without fever) 780.64 Active Problem Diabetes with neurological manifestations, type I [juvenile type], not stated as uncontrolled 250.61 Active Problem Irritable bowel syndrome 564.1 Active Problem Abdominal pain, unspecified site 789.00 Active Problem Unspecified abnormal mammogram 793.80 Active Problem Unspecified infective otitis externa 380.10 Active Problem Restless legs syndrome [RLS] 333.94 Active Problem Unspecified disorder of kidney and ureter 593.9 Active Problem Unspecified anemia 285.9 Active Problem Routine general medical examination at health care facility V70.0 Active Problem Other general symptoms 780.99 Active Problem Dysuria 788.1 Active Problem Chest pain, unspecified 786.50 Active Problem Syncope and collapse 780.2 Active Problem Unspecified breast screening V76.10 Active Problem Lump or mass in breast 611.72 Active Problem Unspecified hypotension 458.9 Active Problem Migraine without aura, without mention of intractable migraine without mention of status migrainosus 346.10 Active Problem Acute upper respiratory infections of unspecified site 465.9 Active Problem Orthostatic hypotension 458.0 Active Problem Swelling of limb 729.81 Active Problem Diabetes mellitus without mention of complication, type I [juvenile type], not stated as uncontrolled 250.01 Active Problem Special screening examination, human papillomavirus [HPV] V73.81 Active Problem Screening for malignant neoplasm of the cervix V76.2 Active Problem Irregular menstrual cycle 626.4 Active Problem Routine gynecological examination V72.31 Active Problem Anemia in chronic kidney disease 285.21 Active Problem Epistaxis 784.7 Active Problem Nausea alone 787.02 Active Problem Peritonsillar abscess 475 Active Medications Medication Code System Code Instructions Start Date End Date Status Dosage Tramadol HCl [facility] [address]-36 50 MG Orally 1 tablet QAM/2 tabs QPM March 23, 2015 1 tablet Results No Known Results Summary Purpose eClinicalWorks Submission
--- OUTSIDE RECORDS SUMMARY | 2018-04-25 06:38 | XMS REPORT ---
Author Author ALAN CARABALLO [facility] [employer] Address Unknown Phone Unavailable Care Team Providers Care Adoption Manager Name Role Phone ALAN CARABALLO CP Unavailable Allergies No Known Allergies Problems Problem Type Condition Code Onset Dates Condition Status Problem Type 1 diabetes mellitus with hyperglycemia E10.65 Active Problem Proteinuria, unspecified R80.9 Active Problem Chronic kidney disease, unspecified N18.9 Active Problem Type 1 diabetes mellitus with hypoglycemia without coma E10.649 Active Problem Type 1 diabetes mellitus without complications E10.9 Active Problem Anemia, unspecified D64.9 Active Problem Low back pain M54.5 Active Problem Irritable bowel K58.9 Active 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
--- OUTSIDE RECORDS SUMMARY | 2018-04-25 06:38 | XMS REPORT ---
Author Author ALAN CARABALLO [facility] Address [address] [place] [address] Care Team Providers Care Fuel Technician Name Role Phone ALAN CARABALLO Unavailable PROBLEMS Type Condition ICD9-CM Code [id number] Code Onset Dates Condition Status SNOMED Code Problem Irritable bowel K58.9 Active 19789060 Problem Restless legs syndrome G25.81 Active 381537161 Problem Anemia, unspecified D64.9 Active 638338251 Problem Dysthymia F34.1 Active 61923605 Problem Chronic kidney disease, stage 4 (severe) N18.4 Active 257366883 Problem Low back pain M54.5 Active 958378853 Problem Type 1 diabetes mellitus without complications E10.9 Active 938196367 Problem Migraine without aura and without status migrainosus, not intractable G43.009 Active 879577987 Problem Other insomnia G47.09 Active 997699995 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 65225770 Problem Proteinuria, unspecified R80.9 Active 48612828 Problem Type 1 diabetes mellitus with hyperglycemia E10.65 Active 99613372 Problem Chronic kidney disease, unspecified N18.9 Active 192548080 Problem Type 1 diabetes mellitus with hypoglycemia without coma E10.649 Active 84523589 Problem Migraine G43.909 Active 03415710 ALLERGIES No Information SOCIAL HISTORY Never Assessed PLAN OF CARE VITAL SIGNS MEDICATIONS Medication Instructions Dosage Frequency Start Date End Date Duration Status NovoLog 100 UNIT/ML Subcutaneous per insulin pump as directed March, Active RESULTS No Results PROCEDURES No Known procedures IMMUNIZATIONS No Known Immunizations MEDICAL (GENERAL) HISTORY Type Description Date Medical History Diabetic Surgical History Bilat tubal ligation Hospitalization History Diabetic multiple hospitalizations
--- OUTSIDE RECORDS SUMMARY | 2018-04-25 06:38 | XMS REPORT ---
Author Author MELCHOR LOREDO [facility] Address [address] [place], [place] [address] Care Team Providers Care Transverse Abdominal Muscle Nurse Name Role Phone MELCHOR LOREDO Unavailable PROBLEMS Type Condition ICD9-CM Code [id number] Code Onset Dates Condition Status SNOMED Code Problem Irritable bowel K58.9 Active 55397263 Problem Restless legs syndrome G25.81 Active 634513703 Problem Anemia, unspecified D64.9 Active 679597416 Problem Dysthymia F34.1 Active 02143454 Problem Chronic kidney disease, stage 4 (severe) N18.4 Active 442548942 Problem Low back pain M54.5 Active 539106022 Problem Type 1 diabetes mellitus without complications E10.9 Active 776408542 Problem Migraine without aura and without status migrainosus, not intractable G43.009 Active 488543878 Problem Other insomnia G47.09 Active 788742264 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 33533565 Problem Proteinuria, unspecified R80.9 Active 29284438 Problem Type 1 diabetes mellitus with hyperglycemia E10.65 Active 97498449 Problem Chronic kidney disease, unspecified N18.9 Active 516665156 Problem Type 1 diabetes mellitus with hypoglycemia without coma E10.649 Active 04809951 Problem Migraine G43.909 Active 31851906 ALLERGIES No Information SOCIAL HISTORY Never Assessed PLAN OF CARE Activity Details Follow Up 4 Weeks Reason: VITAL SIGNS Height 62 in 2017-01-02 Weight 134 lbs 2017-01-02 Heart Rate 84 bpm 2017-01-02 Respiratory Rate 20 2017-01-02 Oximetry 99 % 2017-01-02 BMI 24.51 kg/m2 2017-01-02 Blood pressure systolic 118 mmHg 2017-01-02 Blood pressure diastolic 74 mmHg 2017-01-02 MEDICATIONS Medication Instructions Dosage Frequency Start Date End Date Duration Status Bentyl 20 MG Orally Four times a day PRN 1 tablet Active GlucaGen HypoKit 1 MG Injection PRN Inject 1 mg Jun, 14 days Active Ferrous Sulfate 65 mg Orally Once a day by Oral route 325mg QD by Dr Styles 24h Nov, Active fludrocortisone 0.1 mg take 1/2 tablet by Oral route 1 time per day Nov, Active Beyqbhghul-QMFZ-Csjh-Cod 80-563-11-30 MG TAKE ONE CAPSULE BY MOUTH EVERY 4 HOURS NEEDED (NOT TO EXCEED 6 CAPSULES/24 HOURS) 30 Active Tramadol HCl 50 MG Orally 1 tablet in the morning and 2 tablets in the evening 1 tablet Feb, 28 days Active Zofran ODT 4 MG Orally every 8 hrs 1 tablet on the tongue and allow to dissolve 8h Nov, 07 days Active Tbl-Wiwkmmba-Qtzo-FA 65-1 MG Active Celexa 10 MG 1 tablet by Oral route 1 time per day 90 Active Vitamin D (Cholecalciferol) 400 UNIT Orally Once a day 1 capsule 24h Active NovoLog 100 UNIT/ML Subcutaneous per insulin pump as directed March, Active Aranesp (Alb Free) SureClick Active Geoff Contour Next Test - test blood sugar 90 days Active Requip 0.25 MG TAKE ONE TABLET BY MOUTH ONCE DAILY 90 Active RESULTS Name Result Date Reference Range Lexiscan Stress Nuclear Test 2017-01-22 Echo 2D 2017-01-14 PROCEDURES Procedure Date Ordered Result Body Site MEASURE BLOOD OXYGEN LEVEL Jan 02, 2017 CR[facility] VISIT ESTABLISHED PATIENT Jan 02, 2017 IMMUNIZATIONS No Known Immunizations MEDICAL (GENERAL) HISTORY Type Description Date Medical History Diabetic Surgical History Bilat tubal ligation Hospitalization History Diabetic multiple hospitalizations
--- OUTSIDE RECORDS SUMMARY | 2018-04-25 06:38 | XMS REPORT ---
Author Author ALAN CARABALLO [facility] eClinicalWorks Address Unknown Phone Unavailable Care Team Providers Care Casing Puller Name Role Phone ALAN CARABALLO CP Unavailable Allergies No Known Allergies Problems Problem Type Condition Code Onset Dates Condition Status Problem Type 1 diabetes mellitus with hyperglycemia E10.65 Active Problem Type 1 diabetes mellitus with hypoglycemia without coma E10.649 Active Problem Migraine G43.909 Active Problem Restless legs syndrome G25.81 Active Problem Anemia, unspecified D64.9 Active Problem Proteinuria, unspecified R80.9 Active Problem Chronic kidney disease, unspecified N18.9 Active Problem Irritable bowel K58.9 Active 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
--- OUTSIDE RECORDS SUMMARY | 2018-04-25 06:38 | XMS REPORT ---
Author Author ALAN CARABALLO [facility] eClinicalWorks Address Unknown Phone Unavailable Care Team Providers Care Healthcare Economics Consultant Name Role Phone ALAN CARABALLO CP Unavailable Allergies No Known Allergies Problems Problem Type Condition Code Onset Dates Condition Status Problem Type 1 diabetes mellitus with hyperglycemia E10.65 Active Problem Irritable bowel syndrome 564.1 Active Problem Type 1 diabetes mellitus with ketoacidosis without coma E10.10 Active Problem Type 1 diabetes mellitus with hypoglycemia without coma E10.649 Active Problem Orthostatic hypotension 458.0 Active Problem Anemia in chronic kidney disease 285.21 Active Problem Diabetes mellitus without mention of complication, type I [juvenile type], not stated as uncontrolled 250.01 Active Problem Migraine without aura, without mention of intractable migraine without mention of status migrainosus 346.10 Active Problem Restless legs syndrome [RLS] 333.94 Active Problem Screening for malignant neoplasm of the cervix V76.2 Active Problem Irregular menstrual cycle 626.4 Active Medications Medication Code System Code Instructions Start Date End Date Status Dosage NovoLog [facility] [id number] 100 UNIT/ML per insulin pump April 22, 2014 as directed Results No Known Results Summary Purpose eClinicalWorks Submission
--- OUTSIDE RECORDS SUMMARY | 2018-04-25 06:38 | XMS REPORT | Encounter Summary ---
Author Author [facility] Organization [facility] Address Unknown Phone Unavailable Care Team Providers Care Fuselage Framer Name Role Phone CharlesShanita sanchez STUDENT OFFICER PCP Reason for Visit * Reason Comments Diabetes * Consult, Test & Treat (Routine) Status Reason Specialty Diagnoses / Referred By Referred To Procedures Contact Contact Pending Review Endocrinology / Diagnoses Aryan Cifuentes Abeer, Endocrinology, NEW-TYPE 1 DM MD JONATHAN Lynne [facility] [address] [facility] Genetics rocedures [place] [address] NEW PATIENT [place], [place] [address] [place], [place] Phone: [phone] Encounter Details Date Type Department Care Team Description 02/28/2018 Office Visit [facility] Deisy Baeza MD Uncontrolled type 1 Physicians - Internal [address] [facility] diabetes mellitus with Medicine MS [address] complication (HCC) [address] [place] [address] (Primary Dx); [address] [facility] MED [phone] Hypoglycemia; OFFICE BLDG Hypoglycemia unawareness [place], [place] in type 1 diabetes [id number] mellitus (HCC); [phone] CKD (chronic kidney disease) stage 3, GFR 30-59 ml/min; Diabetic polyneuropathy associated with type 1 diabetes mellitus (HCC); Autonomic dysfunction; Orthostatic hypotension; Supine hypertension Social History Tobacco Use Types Packs/Day Years Used Date Former Smoker Smokeless Tobacco: Never Used Sex Assigned at Date Recorded Not on file as of this encounter Last Filed Vital Signs Vital Sign Reading [...] Mass Index 22.35 02/28/2018 10:10 AM CDT in this encounter Progress Notes * Deisy Baeza MD - 02/28/2018 10:20 AM CDT Formatting of this note may be different from the original. Date of Service: 02/28/2018 Subjective: Betsy Telles is a 37 y.o. female presented to the diabetes clinic today in consultation for evaluation and management of type 1 diabetes as well as autonomic failure and symptomatic orthostatic hypotension. She is under the primary care of Shanita Holland. She also has history of chronic kidney disease, diabetic retinopathy. History of Present Illness Diabetes mellitus type 1 Diabetes was diagnosed at age 7, she is currently following with primary care physician. She has been on insulin pump for the past 5 years. She currently has Medtronic [id number]. She has been using NovoLog in the pump. Her pump was downloaded today and showed significant recurrent hypoglycemia, mostly fasting in the morning without any symptoms associated with that and told her glucose is down to the 40s. She does not have a continuous glucose monitor. She also has postprandial hyperglycemia after all of her meals. It appears that she sometimes gets hypoglycemia following correction for hyperglycemia. She usually eats 3 meals per day, her first meal is around 11 PM, lunch between 24 PM and dinner between 68 PM. She denies any history of coronary artery disease or strokes, she follows with a cyber systems engineer in [place], denies any history of heart failure. She has been following with nephrology as well for chronic kidney disease at least stage III, however, I do not have any records. She also has Neuropathy at both hands and feet, diabetic retinopathy, her last eye exam was 3 months ago, she had left eye hemorrhage in the past as well as cataracts. She has symptoms of nausea and vomiting only when she gets migraine. Pump Industrial Relations Manager: [employer] Model Paradigm 723 Carbohydrate Ratio: 20 Insulin Sensitivity Factor (ISF or correction factor): 70 Insulin type novolog Insulin Time (IOB): 4 hours Target premeal and fasting blood sugar: 100 to 120 mg/dl Basal Rates Time Rate Time Rate MN 0.426 noon 0100 1300 0200 1400 0300 1500 0400 1600 0500 1700 0600 1800 0700 0.325 1900 0800 2000 0900 2100 1000 2200 0.425 1100 0.40 2300 1200 MN Orthostatic hypotension Betsy has been having issues with orthostatic hypotension for the past 45 years. She follows with cyber systems engineer in [place] and is currently on Florinef 0.05 mg daily for the past 2 years. She continues to have issues with supine hypertension and orthostatic hypotension. She reported that her orthostatic hypotension gets worse with activity. She had tried to use of gastric stockings in the past and although they wear custom-made for her, she had skin breakdown and rash secondary to using them, she had tried different brands and the same problem persisted. She has chronic anemia related to her chronic kidney disease. She has been on oral contraceptives for the past 14 months, prior to that she had heavy periods with clots. Review of Systems Comprehensive 14 point review of system was obtained from patient today and was positive for fatigue, weakness, heat sensitivity, chronic diarrhea, abdominal cramping, headaches, depression, sleep problems, dizziness, joint pain and stiffness, back pain. Remainder of review of system is negative. Past Medical History: Diagnosis Date Anemia Diabetes mellitus type 1 (HCC) Generalized headaches IBS (irritable bowel syndrome) Kidney failure Neuropathy Restless leg syndrome Past Surgical History: Procedure Laterality Date TUBAL LIGATION Bilateral No family history on file. Social History Social History Marital status: Spouse name: N/A Number of children: N/A Years of education: N/A Occupational History Not on file. Social History Main Topics Smoking status: Former Smoker Smokeless tobacco: Never Used Alcohol use Not on file Drug use: Unknown Sexual activity: Yes Partners: Male control/ protection: Condom Other Topics Concern Not on file Social History Narrative No narrative on file Objective: blood sugar diagnostic test strip Use 1 strip as directed ten times daily. butalbital/acetaminophen/caffeine(+) (FIORICET) 50/325/40 mg tablet Take 1 tablet by mouth every 4 hours as needed for Headache. cholecalciferol (VITAMIN D-3) 400 unit tab tablet Take 400 Units by mouth daily. citalopram (CELEXA) 20 mg tablet Take 20 mg by mouth daily. darbepoetin goyo (ARANESP) 100 mcg/0.5 mL syrg Inject 100 mcg under the skin once. dicyclomine (BENTYL) 20 mg tablet Take 20 mg by mouth every 6 hours. ferrous sulfate (FEOSOL, FEROSUL) 325 mg (65 mg iron) tablet Take 325 mg by mouth daily. Take on an empty stomach at least 1 hour before or 2 hours after food. fludrocortisone (FLORINEF) 0.1 mg tablet Take 0.1 mg by mouth daily. GLUCAGON IJ Inject to area(s) as directed. norgestimate/ethinyl estradiol(+) (ORTHO TRI-CYCLEN; TRI-SPRINTEC) .18/.215/ .25-35 mg-mcg (28) tablet Take 1 tablet by mouth daily. NOVOLOG U-100 INSULIN ASPART SC Inject under the skin. novolog insulin via pump ondansetron (ZOFRAN) 4 mg tablet Take 4 mg by mouth every 8 hours as needed for Nausea or Vomiting. rizatriptan ([employer]CHNOLOGY METHODOLOGY CONSULTANT) 10 mg rapid dissolve tablet Dissolve 10 mg by mouth once as needed for Headache. rOPINIRole (REQUIP) 0.25 mg tablet Take 0.25 mg by mouth three times daily. sodium bicarbonate 325 mg tablet Take 650 mg by mouth twice daily. topiramate (TOPAMAX) 25 mg tablet Take 25 mg by mouth every 12 hours. traMADol (ULTRAM) 50 mg tablet Take 50 mg by mouth every 6 hours as needed for Pain. vitamins, w/iron & folate 65/1 mg tab Take 1 tablet by mouth daily. Vitals: 02/28/18 1010 BP: (!) 195/102 Pulse: 94 Weight: 55.4 kg (122 lb 3.2 oz) Height: 157.5 cm (62") Body mass index is 22.35 kg/m. Physical Exam Vitals reviewed. Constitutional: oriented to person, place, and time. appears well-developed and well-nourished. No distress. HENT: Head: Normocephalic and atraumatic. Mouth/Throat: Oropharynx is clear and moist. Eyes: Conjunctivae normal Neck: Normal range of motion. Neck supple. No thyromegaly present. Cardiovascular: Normal rate, regular rhythm and normal heart sounds. Pulmonary/Chest: Effort normal and breath sounds normal. has no wheezes. Abdominal: Soft. Bowel sounds are normal. exhibits no distension Musculoskeletal: exhibits no edema. Neurological: alert and oriented to person, place, and time. Neuro exam is grossly unremarkable Skin is warm and dry. No rash noted. No erythema. Psychiatric: has a normal mood and affect. behavior is normal. Judgment and thought content normal. I spent 60 minutes in evaluation today discussing 2 new problems, type 1 diabetes with serious complication of hypoglycemia and hypoglycemia unawareness , orthostatic hypotension with a chronic dysfunction. More than 50% was face-to -face with patient. Insulin pump download was personally reviewed by me today and discussed with the patient. Average glucose 159 mg/dL, standard deviation 70 Glucose checks per day 7.4 Readings above target 35% Readings below target 7% Average daily carbs 94 18 Average total daily insulin 16.4 2.1 Average daily basal 9.4 units (57%) Average daily bolus 7 units (43%). significant recurrent hypoglycemia, mostly fasting in the morning without any symptoms associated with that and told her glucose is down to the 40s. She also has postprandial hyperglycemia after all of her meals. It appears that she sometimes gets hypoglycemia following correction for hyperglycemia. Assessment and Plan: Diabetes mellitus type 1 Recurrent hypoglycemia Hypoglycemia unawareness Post prandial hyperglycemia Hemoglobin A1c in the clinic today was 7.1% with a random glucose of 223 mg/ dL, target hemoglobin A1c around 7.5% without hypoglycemia. She is currently on insulin pump with the above settings. Plan Insulin pump download was reviewed today and consistent with recurrent fasting and likely nocturnal hypoglycemia with hypoglycemia unawareness. I have reduced her basal rate throughout the day by around 10% as shown below. Due to persistent postprandial hyperglycemia, I have increased her insulin to carb ratio from 1: 20 to1:16. Continue current sensitivity of 74 now, however, will consider changing to less aggressive sensitivity due to occasional hypoglycemia following correction for hyperglycemia. I discussed with her to contact [employer] to see if she is eligible for a pump upgrade to obtain a continuous glucose monitor as she has recurrent hypoglycemia with hypoglycemia unawareness. Pump Industrial Relations Manager: [employer] Model Paradigm 723 Carbohydrate Ratio: 20 --> 16 Insulin Sensitivity Factor (ISF or correction factor): 70 Insulin type novolog Insulin Time (IOB): 4 hours Target premeal and fasting blood sugar: 100 to 120 mg/dl Basal Rates Time Rate Time Rate MN 0.4260--> 0.375 noon 0100 1300 0200 1400 0300 1500 0400 1600 0500 1700 0600 1800 0700 0.325--> 0.725 1900 0800 2000 0900 2100 1000 2200 0.425 --> 0.375 1100 0.40 2300 1200 MN Diabetic retinopathy History of left eye hemorrhage Cataracts Currently follows with ophthalmology, her most recent appointment was 3 months ago. Chronic kidney disease I did not have labs for her today, it appears that her chronic kidney disease is at least stage III stage IV as she is already receiving sodium bicarbonate treatment and Aransep treatment We will obtain Records from primary care physician. Diabetic neuropathy Supine hypertension with orthostatic hypotension. Autonomic dysfunction She has significant elevation of blood pressure in the clinic today with orthostatic hypotension. She is currently on Florinef 0.05 mg daily which has not been effective in controlling her symptoms of orthostatic hypotension and is likely contributing to her supine hypertension. She did not have symptoms mostly consistent with adrenal insufficiency, however, this can happen with more frequency with type 1 diabetes. I will screen for other autoimmune disease that can be associated with type 1 diabetes with fasting 8 AM cortisol, ACTH, adrenal cortex antibiotic, thyroid function test with TPO antibodies, vitamin B12 with antiparietal cell antibody as well as celiac disease. Will refer her to cardiology for consideration of Midodrine as an alternative therapy to Florinef. Return to clinic in 3 months. Orders Placed This Encounter GLUCOSE METER DOWNLOAD INSULIN PUMP DOWNLOAD CORTISOL-AM ACTH ADRENAL CORTEX ANTIBODY THYROID STIMULATING HORMONE-TSH FREE T4 (FREE THYROXINE) ONLY ANTI-THYROPEROXIDASE (MICROSOMAL)AB VITAMIN B12 ANTI-PARIETAL CELL ANTIBODY CELIAC DISEASE PANEL POC HEMOGLOBIN A1C POC GLUCOSE QUANTITATIVE BLOOD in this encounter Plan of Treatment Name Priority Associated Diagnoses Order Schedule CORTISOL-AM Routine Uncontrolled type 1 Expected: 02/28/2018 diabetes mellitus with (Approximate), Expires: complication (HCC) 02/28/2019 ACTH Routine Uncontrolled type 1 Expected: 02/28/2018 diabetes mellitus with (Approximate), Expires: complication (HCC) 02/28/2019 ADRENAL CORTEX ANTIBODY Routine Uncontrolled type 1 Expected: 02/28/2018 diabetes mellitus with (Approximate), Expires: complication (HCC) 02/28/2019 THYROID STIMULATING HORMONE-TSH Routine Uncontrolled type 1 Expected: diabetes mellitus with (Approximate), Expires: complication (HCC) 02/28/2019 FREE T4 (FREE THYROXINE) ONLY Routine Uncontrolled type 1 Expected: 04/2018 diabetes mellitus with (Approximate), Expires: complication (HCC) 02/28/2019 ANTI-THYROPEROXIDASE (MICROSOMAL)AB Routine Uncontrolled type 1 Expected : 02/28/2018 diabetes mellitus with (Approximate), Expires: complication (HCC) 02/28/2019 VITAMIN B12 Routine Uncontrolled type 1 Expected: 02/28/2018 diabetes mellitus with (Approximate), Expires: complication (HCC) 02/28/2019 ANTI-PARIETAL CELL ANTIBODY Routine Uncontrolled type 1 Expected: 2017 diabetes mellitus with (Approximate), Expires: complication (HCC) 02/28/2019 CELIAC DISEASE PANEL Routine Uncontrolled type 1 Expected: 02/28/2018 diabetes mellitus with (Approximate), Expires: complication (HCC) 02/28/2019 as of this encounter Procedures Procedure Name Priority Date/Time Associated Diagnosis Comments INSULIN PUMP DOWNLOAD Routine 02/28/2018 Uncontrolled type 1 10:20 AM CDT diabetes mellitus with complication (HCC) in this encounter Results * POC HEMOGLOBIN A1C (02/28/2018 10:20 AM) Component Value Ref Range Poc Hemoglobin A1C 7.1 Specimen Performing Laboratory Blood, capillary - Blood IN CLINIC * POC GLUCOSE QUANTITATIVE BLOOD (02/28/2018 10:15 AM) Component Value Ref Range Glucose, POC 223 Specimen Performing Laboratory Blood, capillary IN CLINIC in this encounter Visit Diagnoses Diagnosis Uncontrolled type 1 diabetes mellitus with complication (HCC) - Primary Hypoglycemia Hypoglycemia, unspecified Hypoglycemia unawareness in type 1 diabetes mellitus (HCC) Type I (juvenile type) diabetes mellitus with other specified manifestations, not stated as uncontrolled CKD (chronic kidney disease) stage 3, GFR 30-59 ml/min Chronic kidney disease, Stage III (moderate) Diabetic polyneuropathy associated with type 1 diabetes mellitus (HCC) Autonomic dysfunction Unspecified disorder of autonomic nervous system Orthostatic hypotension Supine hypertension Diabetic retinopathy without macular edema associated with diabetes mellitus due to underlying condition, unspecified laterality, unspecified retinopathy severity (HCC) Insulin pump in place Insulin pump status
--- OUTSIDE RECORDS SUMMARY | 2018-04-25 06:38 | XMS REPORT ---
Author Author ALAN CARABALLO [facility] eClinicalWorks Address Unknown Phone Unavailable Care Team Providers Care Administrative Medical Director Name Role Phone ALAN CARABLALO CP Unavailable Allergies No Known Allergies Problems [...] Start Date End Date Status Dosage NovoLog [facility] [id number] 100 UNIT/ML per insulin pump April 22, 2014 as directed Results No Known Results Summary Purpose eClinicalWorks Submission
--- OUTSIDE RECORDS SUMMARY | 2018-04-25 06:39 | XMS REPORT ---
Author Author ALAN CARABALLO [facility] Address [address] [place] [address] Care Team Providers Care Facilities Engineering Manager Name Role Phone ALAN CARABALLO Unavailable PROBLEMS Type Condition ICD9-CM Code FSX79-UD Code Onset Dates Condition Status SNOMED Code Problem Type 1 diabetes mellitus without complications E10.9 Active 215691348 Problem Other insomnia G47.09 Active 096937368 Problem Low back pain M54.5 Active 842903298 Problem Migraine with aura and without status migrainosus, not intractable G43.109 Active 2773244 Problem Menorrhagia with regular cycle N92.0 Active 679556113 Problem Chronic kidney disease, stage 4 (severe) N18.4 Active 483346998 Problem Migraine without aura and without status migrainosus, not intractable G43.009 Active 131698348 Problem Autonomic neuropathy G90.9 Active 512784487 Problem Dysthymia F34.1 Active 04222483 Problem Type 1 diabetes mellitus with hypoglycemia without coma E10.649 Active 10462120 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 66985285 Problem Type 1 diabetes mellitus with hyperglycemia E10.65 Active 01494962 Problem Migraine G43.909 Active 97214392 Problem Irritable bowel K58.9 Active 17312744 Problem Proteinuria, unspecified R80.9 Active 87645137 Problem Anemia, unspecified D64.9 Active 051026215 Problem Chronic kidney disease, unspecified N18.9 Active 622392535 Problem Restless legs syndrome G25.81 Active 652124578 ALLERGIES No Information ENCOUNTERS Encounter Location Date Diagnosis [facility] [id number], [place] [address] Jan, Low back pain M54.5 [facility] [id number], [place] [address] Jan, [place] [id number] [place] [address] 93039- 6885 Jan, Type 1 diabetes mellitus without complications E10.9 ; Low back pain M54.5 ; Cough R05 ; Diarrhea, unspecified type R19.7 ; Migraine without aura and without status migrainosus, not intractable G43.009 and Uses control Z30.9 [place] [address] 78341- 1675 Dec, Low back pain M54.5 [place] [address] 73591- 2440 Dec, [place] [address] 03191- 6394 Nov, Well woman exam Z01.419 ; Menorrhagia with regular cycle N92.0 ; Vaginal dryness N89.8 and Migraine with aura and without status migrainosus, not intractable G43.109 [place] [address] 89053- 5846 Nov, [place] [address] 17301- 5509 Nov, Low back pain M54.5 [place] [address] 26017- 0117 Oct, Low back pain M54.5 [place] [address] 42031- 4059 Oct, Migraine without aura and without status migrainosus, not intractable G43.009 [place] [id number] [place] [address] 90585- 1031 Sep, Low back pain M54.5 [place] [address] 76363- 4798 Sep, [place] [address] 16616- 3040 Sep, Migraine without aura and without status migrainosus, not intractable G43.009 [facility] [id number] [place] [address] 91727- 7360 Sep, Type 1 diabetes mellitus with hypoglycemia without coma E10.649 ; Anemia D64.9 ; Migraine without aura and without status migrainosus, not intractable G43.009 ; Chronic kidney disease, unspecified N18.9 ; Autonomic neuropathy G90.9 and Postural hypotension I95.1 [facility] [id number] [place] [address] 17073- 5313 Sep, Low back pain M54.5 [facility] [id number] [place] [address] 29734- 5305 Aug, Low back pain M54.5 [facility] [id number] [place] [address] 02040- 7538 Jul, [facility] [address] 72764- 6527 Jul, Low back pain M54.5 [facility] [id number] [place] [address] 70734- 4382 Jun, [facility] [id number] [place] [address] 25125- 8164 Jun, Low back pain M54.5 [facility] [id number] [place] [address] 56573- 9727 Jun, Migraine without aura and without status migrainosus, not intractable G43.009 [facility] [id number] [place] [address] 80965- 5780 Jun, Type 1 diabetes mellitus with hyperglycemia E10.65 ; Dysthymia F34.1 and Migraine without aura and without status migrainosus, not intractable G43.009 [facility] [id number] [place] [address] 93076- 4430 Jun, [facility] [id number] [place] [address] 18309- 7948 May, Type 1 diabetes mellitus with hyperglycemia E10.65 [facility] [id number] [place] [address] 39874- 0198 May, Low back pain M54.5 [facility] [id number] [place] [address] 45006- 5867 May, Type 1 diabetes mellitus with hyperglycemia E10.65 [facility] [address] 91360- 2601 Apr, [facility] [id number] [place] [address] 56100- 6251 Apr, Chronic kidney disease, stage 4 (severe) N18.4 [facility] [id number] [place] [address] 87344- 7799 Apr, Low back pain M54.5 [facility] [id number] [place] [address] 19885- 6214 March, [facility] [id number] [place] [address] 58780- 8920 March, Low back pain M54.5 [facility] [id number] [place] [address] 28512- 0968 Feb, [facility] [id number] [place] [address] 55490- 0708 Feb, [facility] [id number] [place] [address] 28689- 5968 Feb, Low back pain M54.5 [facility] [id number] [place] [address] 83683- 5230 Feb, Low back pain M54.5 [facility] [id number] [place] [address] 36213- 6964 Feb, Migraine without aura and without status migrainosus, not intractable G43.009 [facility] [id number] [place] [address] 05881- 0955 Feb, [facility] [id number] [place] [address] 45133- 5408 Jan, Low back pain M54.5 [facility] [id number] [place] [address] 59213- 6497 Jan, Type 1 diabetes mellitus without complications E10.9 ; Anemia D64.9 ; Chronic kidney disease, unspecified N18.9 ; Migraine without aura and without status migrainosus, not intractable G43.009 and Other insomnia G47.09 [facility] [address] 90707- 1093 Jan, [place] [address] 89624- 6733 Dec, Low back pain M54.5 [place] [address] 90971- 8589 Dec, [place] [address] 93780- 9115 Dec, [facility] [address] 37236- 7535 Dec, Shortness of breath R06.02 ; Type 1 diabetes mellitus without complications E10.9 and Leg swelling M79.89 [place] [id number] [place] [address] 19082- 0397 Nov, Low back pain M54.5 [place] [id number] [place] [address] 37787- 9227 Nov, Viral syndrome B34.9 [place] [address] 53016- 7264 Oct, Low back pain M54.5 [facility] [id number] [place] [address] 49245- 2952 Oct, [facility] [address] 40845- 2757 Oct, Low back pain M54.5 [facility] [id number] [place] [address] 09327- 9895 Sep, [facility] [id number] [place] [address] 14037- 8955 Sep, Fatigue, unspecified type R53.83 ; Type 1 diabetes mellitus without complications E10.9 and Anemia D64.9 [facility] [id number] [place] [address] 68817- 6189 Sep, Low back pain M54.5 [facility] [id number] [place] [address] 41281- 0605 Sep, Type 1 diabetes mellitus with hyperglycemia E10.65 [facility] [id number] [place] [address] 34451- 6331 Aug, Type 1 diabetes mellitus without complications E10.9 [facility] [id number] [place] [address] 53081- 9343 Aug, [facility] [id number] [place] [address] 26241- 0400 Aug, [facility] [id number] [place] [address] 73552- 7713 Jul, [facility] [id number] [place] [address] 48046- 7216 14 Jul, 2016 Low back pain M54.5 [facility] [id number] [place] [address] 92533- 7377 12 Jul, 2016 Hyperkalemia, diminished renal excretion E87.5 [facility] [id number] [place] [address] 71220- 4707 09 Jul, 2016 Hyperkalemia, diminished renal excretion E87.5 [facility] [id number] [place] [address] 00424- 9913 Jun, [facility] [id number] [place] [address] 76299- 3230 Jun, Low back pain M54.5 [facility] [id number] [place] [address] 59931- 9069 Jun, Anemia D64.9 ; Autonomic neuropathy G90.9 and Postural hypotension I95.1 [facility] [id number] [place] [address] 40980- 7264 Jun, [facility] [address] 03116- 3955 May, Type 1 diabetes mellitus with complications E10.8 and Anemia D64.9 [facility] [id number] [place] [address] 42115- 1870 May, Low back pain M54.5 [facility] [id number] [place] [address] 71207- 5533 Apr, [facility] [address] 70831- 1317 Apr, Low back pain M54.5 [facility] [id number] [place] [address] 59137- 1267 Apr, [facility] [id number] [place] [address] 54057- 7904 Apr, [facility] [id number] [place] [address] 86078- 0572 March, Low back pain M54.5 and Other chronic pain G89.29 [facility] [id number] [place] [address] 37236- 5774 March, Type 1 diabetes mellitus without complications E10.9 [facility] [id number] [place] [address] 78857- 2290 March, [facility] [id number] [place] [address] 26982- 9416 March, [facility] [id number] [place] [address] 97379- 6636 Feb, [facility] [id number] [place] [address] 62589- 4596 Feb, Type 1 diabetes mellitus without complications E10.9 [place] [id number] [place] [address] 36918- 9631 Feb, Trochanteric bursitis, right hip M70.61 [place] [address] 84632- 8536 Jan, [facility] [address] 81103- 7102 Jan, [place] [address] 36598- 2067 Dec, Type 1 diabetes mellitus with complications E10.8 [place] [address] 07330- 9969 Dec, [place] [address] 84467- 6172 Dec, Anemia D64.9 ; Autonomic neuropathy G90.9 and Postural hypotension I95.1 [place] [address] 59928- 6311 Dec, [place] [id number] [place] [address] 96217- 2624 Nov, Sore throat J02.9 [place] [id number] [place] [address] 40800- 1000 Nov, Type 1 diabetes mellitus with complications E10.8 [place] [id number] [place] [address] 15396- 2355 Nov, 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 ; Proteinuria, unspecified R80.9 and Chronic kidney disease, unspecified N18.9 [address] [id number] [place] [address] 28309- 8372 Nov, [place] [id number] [place] [address] 35896- 9978 Nov, Trochanteric bursitis, right hip M70.61 [facility] [id number] [place] [address] 81069- 4311 Nov, [facility] [id number] [place] [address] 23980- 0136 Oct, [facility] [id number] [place] [address] 91938- 5105 Oct, [facility] [id number] [place] [address] 21930- 6147 Oct, [facility] [id number] [place] [address] 93258- 3862 Sep, [facility] [id number] [place] [address] 32241- 7769 Sep, [facility] [id number] [place] [address] 23402- 9313 Sep, Type 2 diabetes mellitus with complication E11.8 and Right hip pain M25.551 [facility] [id number] [place] [address] 11058- 1073 Sep, [facility] [id number] [place] [address] 03843- 9504 Aug, [facility] [address] [place] [address] 34171- 3378 Aug, [facility] [id number] [place] [address] 20018- 0168 Aug, [facility] [id number] [place] [address] 99425- 1428 Aug, Type 1 diabetes mellitus without complications E10.9 [facility] [address], [place] [address]- 3069 16 Jul, 2015 [facility] [id number] [place] [address] 90568- 9947 Jul, [facility] [address], [place] [address]- 3632 Jul, [facility] [address] [place] [address] 94590- 2972 Jun, [facility] [address] 1225 Jun, [facility] [id number] [place] [address] 49114- 3347 Jun, [facility] [address] [place] [address] 95605- 1957 Jun, [facility] [id number] [place] [address] 48032- 2579 Jun, [facility] [id number] [place] [address] 59707- 0432 Jun, Diabetes mellitus without mention of complication, type I [ juvenile type], not stated as uncontrolled 250.01 [facility] [address] [address]- 3072 May, [facility] [id number] [place] [address] 34931- 4351 May, [facility] [address] [address]- 4953 May, [facility] [address] [place] [address] 87959- 7635 May, Autonomic neuropathy 337.9 ; Postural hypotension 458.0 and Anemia 285.9 [facility] [address] [address]- 1579 May, [facility] [address] [place] [address] 929567- 9735 Apr, [facility] [address], [place] [address]- 8208 Apr, [facility] [id number] [place] [address]- 0202 Apr, [facility] [place] [facility] [address] [id number] [place] [address]- 1761 Apr, [facility] [place] [facility] [address] [id number] [place] [address]- 7837 Apr, [facility] [place] [facility] [address] [id number] [place] [address]- 7810 March, [facility] [place] [facility] [address] [id number] [place] [address]- 6003 March, [facility] [place] [facility] [address] [id number] [place] [address]- 0646 March, [facility] [place] [facility] [address] [id number] [place] [address]- 3317 March, [facility] [place] [facility] [address] [id number] [place] [address]- 8258 March, [facility] [place] [facility] [address] [id number] [place] [address]- 3339 Feb, [facility] [place] [facility] [address] [id number] [place] [address]- 4819 Feb, [facility] [place] [facility] [address] [id number] [place] [address]- 5859 Feb, [facility] [place] [facility] [address] [id number] [place] [address]- 5635 30 Jan, 2015 [facility] [place] [facility] [address] [id number] [place] [address]- 2664 Jan, [facility] [place] [facility] [address] [id number] [place] [address]- 7502 Jan, [facility] [place] [facility] [address] [id number] [place] [address]- 2490 Jan, [facility] [place] [facility] [address] [id number] [place] [address]- 4675 Jan, [facility] [place] [facility] [address] [id number] [place] [address]- 6181 Jan, [facility] [place] [facility] [address] [id number] [place] [address]- 5861 Jan, [facility] [place] [facility] [address] [id number] [place] 8923 Jan, [facility] [place] [facility] [address] [id number] [place] [address]- 0077 Jan, [facility] [place] [facility] [address] [id number] [place] [address]- 0929 Jan, [facility] [place] [facility] [address] [id number] [place] [address]- 9633 Jan, [facility] [place] [facility] [address] [id number] [place] [address]- 6545 Jan, [facility] [place] [facility] [address] [id number] [place] [address]- 7640 Jan, [facility] [place] [facility] [address] [id number] [place] [address]- 5242 Dec, [facility] [place] [facility] [address] [id number] [place] [address]- 9418 Dec, [facility] [place] [facility] [address] [id number] [place] [address]- 0146 Dec, [facility] [place] [facility] [address] [id number] [address]- 1519 Dec, 2014 [facility] [place] [facility] [address] [id number] [place] [address]- 8692 Dec, [facility] [place] [facility] [address] [id number] [place] [address]- 9176 Dec, 2014 [facility] [place] [facility] [address] [id number] [place] [address]- 4094 Dec, [facility] [place] [facility] [address] [id number] [place] [address]- 8705 Dec, [facility] [place] [facility] [address] [id number] [place] [address]- 2477 Nov, [facility] [place] [facility] [address] [id number] [place] [address]- 2078 Nov, [facility] [place] [facility] [address] [id number] [place] [address]- 9682 Nov, [facility] [place] [facility] [address] [id number] [place] [address]- 9081 Nov, [facility] [place] [facility] [address] [id number] [place] [address]- 2711 Nov, [facility] [place] [facility] [address] [id number] [place] [address]- 9588 Nov, [facility] [place] [facility] [address] [id number] [place] [address]- 6950 Nov, [facility] [place] [facility] [address] [id number] [place] [address]- 6112 Nov, [facility] [place] [facility] [address] [id number] [place] [address]- 8528 Nov, [facility] [place] [facility] [address] [facility] [id number] [place] [address]- 2581 Oct, [facility] [place] [facility] [address] [id number] [place] [address]- 8881 Oct, [facility] [place] [facility] [address] [id number] [place] [address]- 4424 Oct, [facility] [place] [facility] [address] [id number] [place] [address]- 3690 Oct, [facility] [place] [facility] [address] [id number] [place] [address]- 5301 Oct, [facility] [place] [facility] [address] [id number] [place] [address]- 6671 Oct, [facility] [place] [facility] [address] [id number] [place] [address]- 1646 Oct, [facility] [place] [facility] [address] [id number] [place] 2980 Oct, [facility] [place] [facility] [address] [id number] [place] [address]- 9615 Oct, [facility] [place] [facility] [address] [id number] [place] 3641 Oct, [facility] [place] [facility] [address] [id number] [place] 3004 Oct, [facility] [place] [facility] [address] [id number] [place] [address]- 7526 Oct, [facility] [place] [facility] [address] [id number] [place] [address]- 2090 Oct, [facility] [place] [facility] [address] [id number] [place] [address]- 8980 Oct, [facility] [place] [facility] [address] [id number] [place] [address]- 7855 Sep, [facility] [place] [facility] [address] [id number] [place] [address]- 8161 Sep, [facility] [place] [facility] [address] [id number] [place] [address]- 0195 Sep, [facility] [place] [facility] [address] [id number] [place] [address]- 3017 Sep, [facility] [place] [facility] [address] [id number] [place] [address] Aug, [facility] [place] [facility] [address] [id number] [place] [address] Aug, [facility] [place] [facility] [address] [id number] [place] [address] Aug, [facility] [place] [facility] [address] [id number] [place] [address] Aug, [facility] [place] [facility] [address] [id number] [place] [address] Aug, [facility] [place] [facility] [address] [id number] [place] [address] Aug, [facility] [place] [facility] [address] [id number] [place] [address] Aug, [facility] [place] [facility] [address] [id number] [place] [address] Aug, [facility] [place] [facility] [address] [id number] [place] [address] Aug, [facility] [place] [facility] [address] [id number] [place] [address] Aug, [facility] [place] [facility] [address] [id number] [place] [address] 29 Jul, 2014 [facility] [place] [facility] [address] [id number] [place] [address] 29 Jul, 2013 [facility] [place] [facility] [address] [id number] [place] [address] 29 Jul, 2013 [facility] [place] [facility] [address] [id number] [place] [address] 29 Jul, 2013 [facility] [place] [facility] [address] [id number] [place] [address]- [address]61 22 Jul, 2013 [facility] [place] [facility] [address] [id number] [place] [address]- [address] 22 Jul, 2013 [facility] [place] [facility] [address] [id number] [place] [address]- [address] 19 Jul, 2013 [facility] [place] [facility] [address] [id number] [place] [address] 19 Jul, 2013 [facility] [place] [facility] [address] [id number] [place] [address]- [address] 11 Jul, 2013 [facility] [place] [facility] [address] [id number] [place] [address]- [address] 11 Jul, 2013 [facility] [place] [facility] [address] [id number] [place] [address] 10 Jul, 2013 [facility] [place] [facility] [address] [id number] [place] [address]- [address] 10 Jul, 2013 [facility] [place] [facility] [address] [id number] [place] [address] 08 Jul, 2013 [facility] [place] [facility] [address] [id number] [place] [address]- [address] 08 Jul, 2013 [facility] [place] [facility] [address] [id number] [place] [address] Jul, 2013 [facility] [place] [facility] [address] [id number] [place] [address] Jul, 2013 [facility] [place] [facility] [address] [id number] [place] [address] Jul, 2013 [facility] [place] [facility] [address] [id number] [place] [address] Jul, 2013 [facility] [place] [facility] [address] [id number] [place] [address] Jun, [facility] [place] [facility] [address] [id number] [place] [address] Jun, [facility] [place] [facility] [address] [id number] [place] [address] Jun, [facility] [place] [facility] [address] [id number] [place] [address] Jun, [facility] [place] [facility] [address] [id number] [place] [address] Jun, [facility] [place] [facility] [address] [id number] [place] [address] Jun, [facility] [place] [facility] [address] [id number] [place] [address] Jun, [facility] [place] [facility] [address] [id number] [place] [address] Jun, [facility] [place] [facility] [address] [id number] [place] [address] Jun, [facility] [place] [facility] [address] [id number] [place] [address] Jun, [facility] [place] [facility] [address] [id number] [place] [address] Jun, [facility] [place] [facility] [address] [id number] [place] [address] 20[address] Jun, [facility] [place] [facility] [address] [id number] [place] [address] 1246 Jun, [facility] [place] [facility] [address] [id number] [place] [address] 7528 Jun, [facility] [place] [facility] [address] [id number] [place] [address] 8297 Jun, [facility] [place] [facility] [address] [id number] [place] [address] 3456 May, [facility] [place] [facility] [address] [id number] [place] [address] 9340 May, [facility] [place] [facility] [address] [id number] [place] [address] 2302 May, [facility] [place] [facility] [address] [id number] [place] [address] 5290 May, [facility] [place] [facility] [address] [id number] [place] [address]- 9158 May, [facility] [place] [facility] [address] [id number] [place] [address] 5229 May, [facility] [place] [facility] [address] [id number] [place] [address]- 3929 May, [facility] [place] [facility] [address] [id number], [place] [address] 9[address] May, [facility] [place] [facility] [address] [id number] [place] [address]- 1005 Apr, [facility] [place] [facility] [address] [id number] [place] [address]- 9413 24 Apr, 2014 [facility] [place] [facility] [address] [id number] [place] [address]- 0043 Apr, [facility] [place] [facility] [address] [id number] [place] [address]- 9420 Apr, [facility] [place] [facility] [address] [id number] [place] [address]- 1572 Apr, [facility] [place] [facility] [address] [id number] [place] [address]- 6060 Apr, [facility] [place] [facility] [address] [id number] [place] [address]- 9941 Apr, [facility] [place] [facility] [address] [id number] [place] [address]- 4236 Apr, [facility] [place] [facility] [address] [id number] [place] [address] 9446 Apr, [facility] [place] [facility] [address] [facility] [id number] [place] [address]- 1803 Apr, [facility] [place] [facility] [address] [id number] [place] [address]- 1875 Apr, [facility] [place] [facility] [address] [id number], [place] [address]- 8[address] Apr, [facility] [place] [facility] [address] [id number] [place] [address]- 7485 Apr, [facility] [place] [facility] [address] [id number] [place] [address]- 1986 Apr, [facility] [place] [facility] [address] [id number] [place] [address]- 9051 Apr, [facility] [place] [facility] [address] [id number] [place] [address]- 0984 Apr, [facility] [place] [facility] [address] [id number] [place] [address]- 2718 Apr, [facility] [place] [facility] [address] [id number] [place] [address]- 6743 Apr, [facility] [place] [facility] [address] [id number] [place] [address] 9200 March, [facility] [place] [facility] [address] [id number] [place] [address] 1945 March, [facility] [place] [facility] [address] [id number] [place] [address]- 4917 March, [facility] [place] [facility] [address] [id number] [place] [address] 3736 March, [facility] [place] [facility] [address] [id number] [place] [address]- 3644 March, [facility] [place] [facility] [address] [id number] [place] [address]- 7537 March, [facility] [place] [facility] [address] [id number] [place] [address]- 9935 March, [facility] [place] [facility] [address] [id number] [place] [address]- 8096 March, [facility] [place] [facility] [address] [id number] [place] [address]- 3642 March, [facility] [place] [facility] [address] [id number] [place] [address]- 7061 Feb, [facility] [place] [facility] [address] [id number] [place] [address]- 6975 Feb, [facility] [place] [facility] [address] [id number] [place] [address]- 4917 Feb, [facility] [place] [facility] [address] [id number] [place] [address]- 0328 Feb, [facility] [place] [facility] [address] [id number] [place] [address]- 8826 Feb, [facility] [place] [facility] [address] [id number] [place] [address]- 7476 Feb, [facility] [place] [facility] [address] [id number] [place] [address]- 9838 Feb, [facility] [place] [facility] [address] [id number] [place] [address]- 1886 Feb, [facility] [place] [facility] [address] [id number] [place] [address]- 8307 Feb, [facility] [place] [facility] [address] [id number] [place] [address]- 9167 Feb, [facility] [place] [facility] [address] [id number] [place] [address]- 7395 Feb, [facility] [place] [facility] [address] [id number] [place] [address]- 8913 Feb, [facility] [place] [facility] [address] [id number] [place] [address]- 1856 Feb, [facility] [place] [facility] [address] [id number] [place] [address]- 6279 Jan, [facility] [place] [facility] [address] [id number] [place] [address]- 6748 31 Jan, 2014 [facility] [place] [facility] [address] [id number] [place] [address]- 4590 24 Jan, 2014 [facility] [place] [facility] [address] [id number] [place] [address]- 1313 24 Jan, 2014 [facility] [place] [facility] [address] [id number] [place] [address]- 1066 17 Jan, 2014 [facility] [place] [facility] [address] [id number] [place] [address] 17 Jan, 2014 [facility] [place] [facility] [address] [id number] [place] [address]- 2379 Jan, [facility] [place] [facility] [address] [id number] [place] [address]- 4487 Jan, [facility] [place] [facility] [address] [id number] [place] [address]- 0754 Dec, [facility] [place] [facility] [address] [id number] [place] [address]- 4683 Dec, [facility] [place] [facility] [address] [id number] [place] [address]- 7874 Dec, [facility] [place] [facility] [address] [id number] [place] [address]- 8656 Dec, [facility] [place] [facility] [address] [facility] [id number] [place] [address]- 1464 Dec, [facility] [place] [facility] [address] [id number] [place] [address]- 8452 Dec, [facility] [place] [facility] [address] [id number] [place] [address]- 3445 Dec, [facility] [place] [facility] [address] [facility] [id number] [place] [address]- 4037 Dec, [facility] [place] [facility] [address] [facility] [id number] [place] [address]- 3056 Dec, [facility] [place] [facility] [address] [facility] [id number] [place] [address]- 6650 Dec, [facility] [place] [facility] [address] [id number] [place] [address]- 2211 Nov, [facility] [place] [facility] [address] [id number] [place] [address]- 3017 Nov, [facility] [place] [facility] [address] [id number] [place] [address]- 6281 Nov, [facility] [place] [facility] [address] [facility] [id number] [place] [address]- 0478 Nov, [facility] [place] [facility] [address] [id number] [place] [address]- 3087 Nov, [facility] [place] [facility] [address] [id number] [place] [address]- 3216 Nov, [facility] [place] [facility] [address] [id number] [place] [address]- 7835 Nov, [facility] [place] [facility] [address] [id number] [place] [address]- 2406 Nov, [facility] [place] [facility] [address] [id number] [place] [address]- 4652 Nov, [facility] [place] [facility] [address] [id number] [place] [address]- 9319 Nov, [facility] [place] [facility] [address] [id number] [place] [address]- 7389 19 Oct, 2013 [facility] [place] [facility] [address] [id number] [place] [address]- 1494 19 Oct, 2013 [facility] [place] [facility] [address] [id number] [place] [address]- 9673 18 Oct, 2013 [facility] [place] [facility] [address] [id number] [place] [address]- 8899 18 Oct, 2013 [facility] [place] [facility] [address] [id number] [place] [address]- 0687 17 Oct, 2013 [facility] [place] [facility] [address] [id number], [place] [address]- 8498 17 Oct, 2013 [facility] [place] [facility] [address] [id number] [place] [address]- 4586 16 Oct, 2013 [facility] [place] [facility] [address] [id number] [place] [address]- 7228 16 Oct, 2013 [facility] [place] [facility] [address] [id number] [place] [address]- 9036 11 Oct, 2013 [facility] [place] [facility] [address] [id number] [place] [address]- 0595 Oct, [facility] [address] [id number] [place] [address]- 1487 Oct, [facility] [place] [facility] [address] [id number] [place] [address]38 Oct, [facility] [address] [id number] [place] [address]- 5254 Oct, [facility] [place] [facility] [address] [id number] [place] [address]- 2944 Oct, [facility] [address] [id number] [place] [address]- 9800 Sep, [facility] [place] [facility] [address] [id number] [place] [address]- 4260 Sep, [facility] [address] [id number] [place] [address]- 3163 Sep, [facility] [address] [id number] [place] [address]- 7615 18 Sep, 2013 [facility] [address] [id number] [place] [address]- 1801 Sep, [facility] [address] [facility] [id number] [place] [address]- 1001 Sep, [facility] [place] [facility] [address] [id number] [place] [address]- 4480 Aug, [facility] [place] [facility] [address] [id number] [place] [address]- 1357 31 Aug, 2013 [facility] [place] [facility] [address] [id number] [place] [address]- 4047 17 Aug, 2013 [facility] [place] [facility] [address] [id number] [place] [address]- 1365 17 Aug, 2013 [facility] [place] [facility] [address] [id number], [place] [address]- 3479 10 Aug, 2013 [facility] [place] [facility] [address] [id number] [place] [address]- 0060 10 Aug, 2012 [facility] [place] [facility] [address] [id number] [place] [address]- 2311 07 Aug, 2013 [facility] [place] [facility] [address] [id number] [place] [address]- 6588 02 Aug, 2013 [facility] [place] [facility] [address] [id number] [place] [address]- 6589 02 Aug, 2013 [facility] [place] [facility] [address] [id number] [place] [address]- 3485 25 Jul, 2012 [facility] [place] [facility] [address] [id number] [place] [address]- 1475 23 Jul, 2012 [facility] [place] [facility] [address] [id number] [place] [address]- 9981 21 Jul, 2012 [facility] [place] [facility] [address] [id number] [place] [address]- 4648 20 Jul, 2012 [facility] [place] [facility] [address] [id number] [place] [address]- 1859 18 Sep, 2012 [facility] [place] [facility] [address] [id number] [place] [address]- 4170 17 Sep, 2012 [facility] [place] [facility] [address] [id number] [place] [address]- 3419 16 Sep, 2012 [facility] [place] [facility] [address] [id number], [place] [address]- 9929 11 Sep, 2012 [facility] [place] [facility] [address] [id number] [place] [address]- 2541 09 Sep, 2012 [facility] [place] [facility] [address] [id number] [place] [address]- 2542 09 Sep, 2012 [facility] [place] [facility] [address] [id number], [place] [address]- 3360 06 Sep, 2012 [facility] [place] [facility] [address] [id number], [place] [address]- 0634 Jul, [facility] [place] [facility] [address] [id number] [place] [address]- 0644 Jun, [facility] [place] [facility] [address] [id number] [place] [address]- 3169 Jun, [facility] [place] [facility] [address] [id number] [place] [address]- 3489 Jun, [facility] [place] [facility] [address] [id number] [place] [address]- 2511 Jun, [facility] [place] [facility] [address] [id number] [place] [address]- 0781 Jun, [facility] [place] [facility] [address] [id number] [place] [address]- 4937 Jun, [facility] [place] [facility] [address] [id number] [place] [address]- 3356 Jun, [facility] [place] [facility] [address] [id number] [place] [address]- 2896 Jun, [facility] [place] [facility] [address] [id number] [place] [address]- 1049 Jun, [facility] [place] [facility] [address] [id number] [place] [address]- 5781 May, [facility] [place] [facility] [address] [id number] [place] [address]- 8321 May, [facility] [place] [facility] [address] [id number] [place] [address]- 5808 May, [facility] [place] [facility] [address] [id number] [place] [address]- 9057 May, [facility] [place] [facility] [address] [id number] [place] [address]- 4116 May, [facility] [place] [facility] [address] [id number] [place] [address]- 7497 May, [facility] [place] [facility] [address] [id number] [place] [address]- 2546 May, [facility] [address] [id number] [place] [address]- 6566 March, [facility] [place] [facility] [address] [id number] [place] [address]- 2546 March, [facility] [place] [facility] [address] [id number] [place] [address]- 2546 March, [facility] [place] [facility] [address] [id number] [place] [address]- 2546 Dec, [facility] [place] [facility] [address] [id number] [place] [address]- 2546 Nov, [facility] [place] [facility] [address] [id number] [place] [address]- 3726 Aug, [facility] [place] [facility] [address] [id number] [place] [address]- 7016 Aug, [facility] [place] [facility] [address] [id number] [place] [address]- 4555 Jun, [facility] [place] [facility] [address] [id number] [place] [address]- 3486 Jun, [facility] [place] [facility] [address] [id number] [place] [address]- 6836 Jun, [facility] [place] [facility] [address] [id number] [place] [address]- 2546 Jun, [facility] [place] [facility] [address] [id number] [place] [address]- 2546 May, [facility] [place] [facility] [address] [id number] [place] [address]- 2546 May, [facility] [place] [facility] [address] [id number] [place] [address]- 2546 May, [facility] [place] [facility] [address] [id number] [place] [address]- 6332 May, [facility] [place] [facility] [address] [id number] [place] [address]- 1554 May, [facility] [place] [facility] [address] [id number] [place] [address]- 2176 May, [facility] [place] [facility] [address] [id number] [place] [address]- 5477 May, [facility] [place] [facility] [address] [id number] [place] [address]- 7428 Apr, [facility] [place] [facility] [address] [id number] [place] [address]- 3716 Apr, [facility] [place] [facility] [address] [id number] [place] [address]- 2115 Apr, [facility] [place] [facility] [address] [id number] [place] [address]- 3090 Apr, [facility] [place] [facility] [address] [id number] [place] [address]- 8913 March, [facility] [place] [facility] [address] [id number] [place] [address]- 9196 March, [facility] [place] [facility] [address] [id number] [place] [address]- 1656 March, [facility] [place] [facility] [address] [id number] [place] [address]- 1193 March, [facility] [place] [facility] [address] [id number] [place] [address]- 5507 March, [facility] [place] [facility] [address] [id number] [place] [address]- 2999 March, [facility] [place] [facility] [address] [id number] [place] [address]- 6724 March, [facility] [place] [facility] [address] [id number] [place] [address]- 5643 March, [facility] [place] [facility] [address] [id number] [place] [address]- 0228 March, [facility] [address] [id number] [place] [address]- 6745 Feb, [facility] [place] [facility] [address] [id number] [place] [address]- 2366 Feb, [facility] [address] [id number] [place] [address]- 0853 Jan, [facility] [place] [facility] [address] [id number] [place] [address]- 0446 27 Jan, 2012 [facility] [address] [id number] [place] [address]- 5174 16 Jan, 2012 [facility] [place] [facility] [address] [id number] [place] [address] 2546 05 Jan, 2012 [facility] [address] [id number] [place] [address]- 3233 20 Dec, 2011 [facility] [address] [id number] [place] [address]- 7732 16 Dec, 2011 [facility] [address] [id number] [place] [address]- 7211 15 Dec, 2011 [facility] [address] [id number] [place] [address]- 4727 30 Nov, 2011 [facility] [address] [id number] [place] [address] 2546 19 Oct, 2011 [facility] [place] [facility] [address] [id number] [place] [address] 2546 15 Oct, 2011 [facility] [place] [facility] [address] [id number] [place] [address]- 3366 15 Oct, 2011 [facility] [place] [facility] [address] [id number] [place] [address] 2546 14 Oct, 2011 [facility] [place] [facility] [address] [id number] [place] [address]- 0261 14 Oct, 2011 [facility] [place] [facility] [address] [id number] [place] [address]- 2608 12 Oct, 2011 [facility] [place] [facility] [address] [id number] [place] [address]- 1590 09 Oct, 2011 [facility] [place] [facility] [address] [id number] [place] [address]72 Oct, [facility] [place] [facility] [address] [id number] [place] [address]- 9205 Sep, [facility] [place] [facility] [address] [id number] [place] [address]- 9682 17 Sep, 2011 [facility] [place] [facility] [address] [id number] [place] [address]- 7215 14 Sep, 2011 [facility] [place] [facility] [address] [id number] [place] [address] Sep, [facility] [place] [facility] [address] [id number] [place] [address] Sep, [facility] [place] [facility] [address] [id number] [place] [address] Sep, [facility] [place] [facility] [address] [id number] [place] [address] Sep, [facility] [place] [facility] [address] [id number] [place] [address] Sep, [facility] [place] [facility] [address] [id number], [place] [address] Sep, [facility] [place] [facility] [address] [id number] [place] [address] 24 Aug, 2011 [facility] [place] [facility] [address] [id number] [place] [address] 15 Jul, 2011 [facility] [place] [facility] [address] [id number] [place] [address] Oct, [facility] [place] [facility] [address] [id number], [place] [address] Oct, [facility] [address] [facility] [id number] [place] [address] Oct, IMMUNIZATIONS No Known Immunizations SOCIAL HISTORY Never Assessed REASON FOR VISIT Order Request PLAN OF CARE VITAL SIGNS MEDICATIONS Unknown Medications RESULTS No Results PROCEDURES No Known procedures INSTRUCTIONS MEDICATIONS ADMINISTERED No Known Medications MEDICAL (GENERAL) HISTORY Type Description Date Medical History Diabetic Surgical History Bilat tubal ligation Hospitalization History Diabetic multiple hospitalizations
--- OUTSIDE RECORDS SUMMARY | 2018-04-25 06:39 | XMS REPORT ---
Author Author ALAN CARABALLO [facility] eClinicalWorks Address Unknown Phone Unavailable Care Team Providers Care Boat Hoist Operator Helper Name Role Phone ALAN CARABALLO CP Unavailable Allergies, Adverse Reactions, Alerts Substance Reaction Event Type Lisinopril Info Not Available Drug Allergy Gabapentin Info Not Available Drug Allergy Cozaar 25 Mg Tablet Info Not Available Non Drug Allergy Niacin 500 Mg Tablet Info Not Available Non Drug Allergy Problems Problem Type Condition Code Onset Dates Condition Status Problem Type 1 diabetes mellitus with hyperglycemia E10.65 Active Problem Proteinuria, unspecified R80.9 Active Problem Chronic kidney disease, unspecified N18.9 Active Problem Type 1 diabetes mellitus without complications E10.9 Active Problem Anemia, unspecified D64.9 Active Problem Low back pain M54.5 Active Problem Irritable bowel K58.9 Active 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 Problem Migraine G43.909 Active Problem Restless legs syndrome G25.81 Active Assessment Anemia D64.9 Active Assessment Type 1 diabetes mellitus without complications E10.9 Active Assessment Fatigue, unspecified type R53.83 Active Problem Type 1 diabetes mellitus with hypoglycemia without coma E10.649 Active Medications Medication Code System Code Instructions Start Date End Date Status Dosage Dfzowwmcqy-ESWW-Ahdg-Cod [facility] [address]-38 10-836-80-30 MG TAKE ONE CAPSULE BY MOUTH EVERY 4 HOURS NEEDED (NOT TO EXCEED 6 CAPSULES/24 HOURS) Bentyl [facility] [address]-15 20 MG Orally Four times a day PRN 1 tablet Erg-Ochgljdj-Bros-FA NDC 0 65-1 MG Orally not defined Ferrous Sulfate [facility] [address]-47 65 mg Orally Once a day Dec 01, 2014 by Oral route 325mg QD by Dr Jensen Palacios [facility] [address]-96 0.25 MG TAKE ONE TABLET BY MOUTH ONCE DAILY Aranesp (Alb Free) SureClick NDC 0 not defined Geoff Contour Next Test [facility] [address]-00 - 10 times daily (Has insulin pump) test blood sugar Celexa [facility] 88080117357 10 MG 1 tablet by Oral route 1 time per day Tramadol HCl [facility] [address]-69 50 MG Orally 1 tablet in the morning and 2 tablets in the evening March 23, 2015 1 tablet fludrocortisone [facility] 0 0.1 mg Dec 02, 2013 take 1/2 tablet by Oral route 1 time per day Vitamin D (Cholecalciferol) [facility] 9[address]77[address] 400 UNIT Orally Once a day 1 capsule GlucaGen HypoKit [facility] [address]-76 1 MG Injection PRN Jul 25, 2016 Inject 1 mg NovoLog [facility] [address]-41 100 UNIT/ML Subcutaneous per insulin pump March as directed Procedures Procedure Coding System Code Date MICROALBUMIN, SEMIQUANT CPT-4 63813 Oct 02, 2016 SLEEP STUDY, UNATTENDED CPT-4 38980 Oct 02, 2016 GLYCATED HEMOGLOBIN TEST CPT-4 02416 Oct 02, 2016 Office Visit, Est Pt., Level 3 CPT-4 60591 Oct 02, 2016 [facility] VISIT ESTABLISHED PATIENT CPT-4 G0467 Oct 02, 2016 Vital Signs Date/Time: Oct 02, 2016 Cardiac Monitoring Heart Rate 80 bpm Weight 128.2 lbs Height 62 in BMI 23.45 Index Blood Pressure Diastolic 86 mmHg Blood Pressure Systolic 144 mmHg Results Name Result Date Reference Range Unit Abnormality Flag A1C (IN HOUSE) ----A1C IN HOUSE 6.3 20161002 4.3 - 5.6 % ----Previous A1c 6.9 20161002 ----Lot [id number] 20161002 ----Exp date 20161002 MICROALBUMIN, URINE (IN HOUSE) ----CRE 300 20161002 ----ALB 150 20161002 ----Control + 20161002 ----A:C (IN HOUSE) 30-300mg/g 20161002 ----Clarity clear 20161002 ----Color yellow 20161002 ----Lot # [id number] 20161002 ----Exp date 20161002 ----MICROALBUMIN abnormal 20161002 Summary Purpose eClinicalWorks Submission
--- OUTSIDE RECORDS SUMMARY | 2018-04-25 06:40 | XMS REPORT ---
Author Author ALAN CARABALLO [facility] eClinicalWorks Address Unknown Phone Unavailable Care Team Providers Care Aviation Operations Specialist Name Role Phone ALAN CARABALLO CP Unavailable Allergies No Known Allergies Problems Problem Type Condition Code Onset Dates Condition Status Problem Type 1 diabetes mellitus with hyperglycemia E10.65 Active Problem Proteinuria, unspecified R80.9 Active Problem Chronic kidney disease, unspecified N18.9 Active Assessment Low back pain M54.5 Active Problem Type 1 diabetes mellitus with hypoglycemia without coma E10.649 Active Problem Type 1 diabetes mellitus without complications E10.9 Active Problem Anemia, unspecified D64.9 Active Problem Low back pain M54.5 Active Problem Irritable bowel K58.9 Active 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
--- OUTSIDE RECORDS SUMMARY | 2018-04-25 06:40 | XMS REPORT ---
Author Author ALAN CARABALLO [facility] eClinicalWorks Address Unknown Phone Unavailable Care Team Providers Care Mat Tester Name Role Phone ALAN CARABALLO CP Unavailable Allergies, Adverse Reactions, Alerts Substance Reaction Event Type Lisinopril Info Not Available Drug Allergy Gabapentin Info Not Available Drug Allergy Cozaar 25 Mg Tablet Info Not Available Non Drug Allergy Niacin 500 Mg Tablet Info Not Available Non Drug Allergy Problems Problem Type Condition Code Onset Dates Condition Status Assessment Type 1 diabetes mellitus without complications E10.9 Active Problem Type 1 diabetes mellitus with hyperglycemia E10.65 Active Problem Type 1 diabetes mellitus with hypoglycemia without coma E10.649 Active Problem Migraine G43.909 Active Problem Restless legs syndrome G25.81 Active Problem Anemia, unspecified D64.9 Active Problem Proteinuria, unspecified R80.9 Active Problem Chronic kidney disease, unspecified N18.9 Active Problem Irritable bowel K58.9 Active 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 Medications Medication Code System Code Instructions Start Date End Date Status Dosage Tramadol HCl [facility] [address]-32 50 MG Orally 1 tablet in the morning and 2 tablets in the evening March 23, 2015 1 tablet Fioricet with Codeine NDC 0 50-032-67-30 mg February 11, 2015 take 1 capsule by Oral route as needed not to exceed 6 capsules per 24hrs every 4 hours Aranesp (Alb Free) SureClick NDC 0 not defined Requip [facility] 28094106254 0.25 MG 1 tablet by Oral route 1 time per day Ferrous Sulfate [facility] [address]-19 65 mg Orally Once a day Dec 01, 2014 by Oral route 325mg QD by Dr Jensen Gudino [facility] [address]-16 20 MG Orally Four times a day PRN 1 tablet Fwfbtcialz-ICCO-Tusb-Cod [facility] [address]-78 63-664-55-30 MG TAKE ONE CAPSULE BY MOUTH EVERY 4 HOURS NEEDED (NOT TO EXCEED 6 CAPSULES/24 HOURS) Geoff Contour Next Test NDC [id number] TEST 10 TIMES A DAY Fdc-Eqnqiehk-Pdjm-FA NDC 0 65-1 MG Orally not defined fludrocortisone NDC 0 0.1 mg Dec 02, 2013 take 1/2 tablet by Oral route 1 time per day Citalopram Hydrobromide [facility] [id number] 10 MG TAKE ONE TABLET BY MOUTH DAILY NovoLog [facility] [address]-12 100 UNIT/ML per insulin pump April 22, 2014 as directed Celexa [facility] [id number] 10 MG 1 tablet by Oral route 1 time per day Procedures Procedure Coding System Code Date MICROALBUMIN, SEMIQUANT CPT-4 22585 March 21, 2016 [facility] VISIT ESTABLISHED PATIENT CPT-4 G0467 March 21, 2016 GLYCATED HEMOGLOBIN TEST CPT-4 54093 March 21, 2016 Office Visit, Est Pt., Level 3 CPT-4 66575 March 21, 2016 Vital Signs Date/Time: March 21, 2016 Temperature 98.9 F Weight 121.2 lbs Height 62 in BMI 22.17 Index Blood Pressure Diastolic 70 mmHg Blood Pressure Systolic 120 mmHg Cardiac Monitoring Heart Rate 92 bpm Results No Known Results Summary Purpose eClinicalWorks Submission
--- OUTSIDE RECORDS SUMMARY | 2018-04-25 06:40 | XMS REPORT ---
Author Author ALAN CARABALLO [facility] eClinicalWorks Address Unknown Phone Unavailable Care Team Providers Care Blow Down Helper Name Role Phone ALAN CARABALLO CP [...] Date End Date Status Dosage Tramadol HCl [facility] [address]-72 50 MG Orally 1 tablet QAM/2 tabs QPM March 23, 2015 1 tablet Results No Known Results Summary Purpose eClinicalWorks Submission
--- OUTSIDE RECORDS SUMMARY | 2018-04-25 06:40 | XMS REPORT ---
Author Author ALAN CARABALLO [facility] eClinicalWorks Address Unknown Phone Unavailable Care Team Providers Care Game Trapper Name Role Phone ALAN CARABALLO CP Unavailable [...] Date End Date Status Dosage Tramadol HCl [facility] [address]-49 50 MG Orally 1 tablet QAM/2 tabs QPM March 23, 2015 1 tablet Results No Known Results Summary Purpose eClinicalWorks Submission
--- OUTSIDE RECORDS SUMMARY | 2018-04-25 06:41 | XMS REPORT ---
Author Author ALAN CARABALLO [facility] eClinicalWorks Address Unknown Phone Unavailable Care Team Providers Care Crm Developer Name Role Phone ALAN CARABALLO CP Unavailable [...] Start Date End Date Status Dosage NovoLog [facility] [address]-25 100 UNIT/ML per insulin pump April 22, 2014 as directed Results No Known Results Summary Purpose eClinicalWorks Submission
--- OUTSIDE RECORDS SUMMARY | 2018-04-25 06:41 | XMS REPORT ---
Author Author ALAN CARABALLO [facility] eClinicalWorks Address Unknown Phone Unavailable Care Team Providers Care Bottle House Pumper Name Role Phone ALAN CARABALLO CP Unavailable Allergies No Known Allergies Problems Problem Type Condition Code Onset Dates Condition Status Problem Restless legs syndrome [RLS] 333.94 Active Problem Irregular menstrual cycle 626.4 Active Problem Migraine without aura, without mention of intractable migraine without mention of status migrainosus 346.10 Active Problem Proteinuria, unspecified R80.9 Active Problem Chronic kidney disease, unspecified N18.9 Active 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 Problem Anemia in chronic kidney disease 285.21 Active Problem Screening for malignant neoplasm of the cervix V76.2 Active Problem Diabetes mellitus without mention of complication, type I [juvenile type], not stated as uncontrolled 250.01 Active Problem Orthostatic hypotension 458.0 Active Problem Type 1 diabetes mellitus with hypoglycemia without coma E10.649 Active Problem Type 1 diabetes mellitus with hyperglycemia E10.65 Active Problem Type 1 diabetes mellitus with ketoacidosis without coma E10.10 Active Assessment Type 1 diabetes mellitus with complications E10.8 Active Problem Irritable bowel syndrome 564.1 Active Medications No Known Medications Results No Known Results Summary Purpose eClinicalWorks Submission
--- OUTSIDE RECORDS SUMMARY | 2018-04-25 06:41 | XMS REPORT ---
Author Author ALAN CARABALLO [facility] Address [address] [place] [address] Care Team Providers Care Internet Sales Director Name Role Phone ALAN CARABALLO Unavailable PROBLEMS Type Condition ICD9-CM Code HBN57-UG Code Onset Dates Condition Status SNOMED Code Problem Type 1 diabetes mellitus without complications E10.9 Active 572143835 Problem Other insomnia G47.09 Active 870102530 Problem Low back pain M54.5 Active 161545956 Problem Migraine with aura and without status migrainosus, not intractable G43.109 Active 9297750 Problem Menorrhagia with regular cycle N92.0 Active 369713905 Problem Chronic kidney disease, stage 4 (severe) N18.4 Active 780328834 Problem Migraine without aura and without status migrainosus, not intractable G43.009 Active 667686448 Problem Autonomic neuropathy G90.9 Active 360899088 Problem Dysthymia F34.1 Active 85457185 Problem Type 1 diabetes mellitus with hypoglycemia without coma E10.649 Active 05398453 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 23949861 Problem Type 1 diabetes mellitus with hyperglycemia E10.65 Active 00297710 Problem Migraine G43.909 Active 87929912 Problem Irritable bowel K58.9 Active 92179098 Problem Proteinuria, unspecified R80.9 Active 19900794 Problem Anemia, unspecified D64.9 Active 549278406 Problem Chronic kidney disease, unspecified N18.9 Active 292281599 Problem Restless legs syndrome G25.81 Active 197399507 ALLERGIES No Information ENCOUNTERS Encounter Location Date Diagnosis [facility] [address] [facility] [id number] [address] Jan, Restless legs syndrome G25.81 [facility] [address] [facility] [id number] [address] Jan, Low back pain M54.5 [facility] [id number] [place] [address] 09292- 0887 Jan, [facility] [id number] [place] [address] 87983- 4451 Jan, Type 1 diabetes mellitus without complications E10.9 ; Low back pain M54.5 ; Cough R05 ; Diarrhea, unspecified type R19.7 ; Migraine without aura and without status migrainosus, not intractable G43.009 and Uses control Z30.9 [facility] [id number] [place] [address] 91585- 7148 Dec, Low back pain M54.5 [place] [address] 06720- 3143 Dec, [place] [address] 90212- 0621 Nov, Well woman exam Z01.419 ; Menorrhagia with regular cycle N92.0 ; Vaginal dryness N89.8 and Migraine with aura and without status migrainosus, not intractable G43.109 [place] [address] 76157- 6789 Nov, [facility] [id number] [place] [address] 12301- 7291 Nov, Low back pain M54.5 [place] [id number] [place] [address] 11464- 7472 Oct, Low back pain M54.5 [facility] [id number] [place] [address] 28873- 0273 Oct, Migraine without aura and without status migrainosus, not intractable G43.009 [facility] [id number] [place] [address] 05918- 1174 Sep, Low back pain M54.5 [facility] [address] 14593- 9554 Sep, [facility] [id number] [place] [address] 77923- 6647 Sep, Migraine without aura and without status migrainosus, not intractable G43.009 [facility] [id number] [place] [address] 32005- 2702 Sep, Type 1 diabetes mellitus with hypoglycemia without coma E10.649 ; Anemia D64.9 ; Migraine without aura and without status migrainosus, not intractable G43.009 ; Chronic kidney disease, unspecified N18.9 ; Autonomic neuropathy G90.9 and Postural hypotension I95.1 [facility] [address] 80652- 1945 Sep, Low back pain M54.5 [facility] [address] 73912- 4342 Aug, Low back pain M54.5 [facility] [address] 52695- 2094 Jul, [facility] [address] 35661- 5661 Jul, Low back pain M54.5 [facility] [address] 78397- 6789 Jun, [facility] [id number] [place] [address] 72037- 4886 Jun, Low back pain M54.5 [facility] [address] 35411- 4193 Jun, Migraine without aura and without status migrainosus, not intractable G43.009 [facility] [address] 47142- 6858 Jun, Type 1 diabetes mellitus with hyperglycemia E10.65 ; Dysthymia F34.1 and Migraine without aura and without status migrainosus, not intractable G43.009 [facility] [address] [id number]- 2546 Jun, [facility] [address] [address] 5955 May, Type 1 diabetes mellitus with hyperglycemia E10.65 [facility] [id number] [place] [address] 22427- 4341 May, Low back pain M54.5 [facility] [id number] [place] [address] 61527- 6942 May, Type 1 diabetes mellitus with hyperglycemia E10.65 [facility] [id number] [place] [address] 72542- 6631 Apr, [facility] [id number] [place] [address] 25347- 1632 Apr, Chronic kidney disease, stage 4 (severe) N18.4 [facility] [id number] [place] [address] 76835- 9098 Apr, Low back pain M54.5 [facility] [id number] [place] [address] 05889- 4772 March, [facility] [id number] [place] [address] 71999- 5390 March, Low back pain M54.5 [facility] [id number] [place] [address] 30056- 3564 Feb, [facility] [id number] [place] [address] 07796- 8642 Feb, [facility] [id number] [place] [address] 01504- 0646 Feb, Low back pain M54.5 [facility] [id number] [place] [address] 78863- 8763 Feb, Low back pain M54.5 [facility] [id number] [place] [address] 65184- 8494 Feb, Migraine without aura and without status migrainosus, not intractable G43.009 [facility] [id number] [place] [address] 24450- 7951 Feb, [facility] [id number] [place] [address] 57910- 4183 Jan, Low back pain M54.5 [place] [id number] [place] [address] 38172- 4275 Jan, Type 1 diabetes mellitus without complications E10.9 ; Anemia D64.9 ; Chronic kidney disease, unspecified N18.9 ; Migraine without aura and without status migrainosus, not intractable G43.009 and Other insomnia G47.09 [place] [address] 62773- 7545 Jan, [place] [address] 69366- 7998 Dec, Low back pain M54.5 [place] [address] 33840- 5168 Dec, [place] [address] 26893- 7849 Dec, [place] [id number] [place] [address] 02435- 7735 Dec, Shortness of breath R06.02 ; Type 1 diabetes mellitus without complications E10.9 and Leg swelling M79.89 [place] [id number] [place] [address] 00899- 3773 Nov, Low back pain M54.5 [place] [id number] [place] [address] 11224- 2387 Nov, Viral syndrome B34.9 [facility] [id number] [place] [address] 49985- 1686 Oct, Low back pain M54.5 [place] [address] 20669- 8377 Oct, [facility] [id number] [place] [address] 05857- 6643 Oct, Low back pain M54.5 [facility] [id number] [place] [address] 99965- 1078 Sep, [facility] [id number] [place] [address] 72861- 3972 Sep, Fatigue, unspecified type R53.83 ; Type 1 diabetes mellitus without complications E10.9 and Anemia D64.9 [facility] [id number] [place] [address] 50246- 3599 Sep, Low back pain M54.5 [facility] [id number] [place] [address] 60341- 3603 Sep, Type 1 diabetes mellitus with hyperglycemia E10.65 [facility] [id number] [place] [address] 23741- 6803 Aug, Type 1 diabetes mellitus without complications E10.9 [facility] [id number] [place] [address] 39480- 4300 Aug, [facility] [id number] [place] [address] 89273- 6595 Aug, [facility] [id number] [place] [address] 47969- 6587 Jul, [facility] [id number] [place] [address] 17816- 0442 14 Jul, 2016 Low back pain M54.5 [facility] [id number] [place] [address] 41444- 1089 12 Jul, 2016 Hyperkalemia, diminished renal excretion E87.5 [facility] [id number] [place] [address] 35895- 2232 09 Jul, 2016 Hyperkalemia, diminished renal excretion E87.5 [facility] [id number] [place] [address] 92959- 9889 Jun, [facility] [id number] [place] [address] 15576- 6685 Jun, Low back pain M54.5 [facility] [id number] [place] [address] 62247- 5149 Jun, Anemia D64.9 ; Autonomic neuropathy G90.9 and Postural hypotension I95.1 [facility] [address] 40940- 2071 Jun, [facility] [id number] [place] [address] 85487- 6309 May, Type 1 diabetes mellitus with complications E10.8 and Anemia D64.9 [facility] [id number] [place] [address] 45488- 8611 May, Low back pain M54.5 [facility] [id number] [place] [address] 98976- 9726 Apr, [facility] [id number] [place] [address] 76560- 8450 Apr, Low back pain M54.5 [facility] [id number] [place] [address] 87631- 7431 Apr, [facility] [id number] [place] [address] 06847- 4864 Apr, [facility] [id number] [place] [address] 43013- 4845 March, Low back pain M54.5 and Other chronic pain G89.29 [facility] [id number] [place] [address] 56328- 6286 March, Type 1 diabetes mellitus without complications E10.9 [facility] [id number] [place] [address] 66972- 2653 March, [facility] [id number] [place] [address] 04553- 3740 March, [facility] [id number] [place] [address] 84953- 3418 Feb, [facility] [id number] [place] [address] 24894- 1861 Feb, Type 1 diabetes mellitus without complications E10.9 [facility] [id number] [place] [address] 22039- 0663 Feb, Trochanteric bursitis, right hip M70.61 [facility] [id number] [place] [address] 01793- 5141 Jan, [facility] [address] 86043- 8630 Jan, [facility] [id number] [place] [address] 85442- 8707 Dec, Type 1 diabetes mellitus with complications E10.8 [facility] [id number] [place] [address] 95362- 9761 Dec, [facility] [id number] [place] [address] 50487- 6564 Dec, Anemia D64.9 ; Autonomic neuropathy G90.9 and Postural hypotension I95.1 [place] [id number] [place] [address] 75528- 7241 Dec, [facility] [id number] [place] [address] 17181- 7010 Nov, Sore throat J02.9 [facility] [id number] [place] [address] 72299- 6470 Nov, Type 1 diabetes mellitus with complications E10.8 [facility] [id number] [place] [address] 99184- 6261 Nov, 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 ; Proteinuria, unspecified R80.9 and Chronic kidney disease, unspecified N18.9 [facility] [address], [place] [address]- 3476 14 Nov, 2015 [facility] [id number] [place] [address] 81261- 6277 Nov, Trochanteric bursitis, right hip M70.61 [facility] [address] [address]- 5476 Nov, [facility] [id number] [place] [address] 21983- 7993 Oct, [facility] [id number] [place] [address] 04969- 4334 Oct, [facility] [id number] [place] [address] 51653- 5208 Oct, [facility] [id number] [place] [address] 10192- 6986 Sep, [facility] [id number] [place] [address] 25363- 1514 Sep, [facility] [id number] [place] [address] 15465- 3481 Sep, Type 2 diabetes mellitus with complication E11.8 and Right hip pain M25.551 [facility] [address], [place] [address]- 3889 Sep, [facility] [address], [place] [address]- 7514 Aug, [facility] [address], [place] [address]- 2605 Aug, [facility] [id number] [place] [address] 24788- 5071 Aug, [facility] [address], [place] [address]- 6868 Aug, Type 1 diabetes mellitus without complications E10.9 [facility] [id number] [place] [address] 48391- 6478 16 Jul, 2015 [facility] [id number] [place] [address] 29112- 0899 Jul, [facility] [id number] [place] [address] 12810- 1769 Jul, [facility] [id number] [place] [address] 93584- 2377 Jun, [facility] [id number] [place] [address] 39903- 2024 Jun, [facility] [id number] [place] [address] 14628- 5762 Jun, [facility] [id number] [place] [address] 70838- 3992 Jun, [facility] [id number] [place] [address] 55593- 2321 Jun, [facility] [id number] [place] [address] 64317- 6424 Jun, Diabetes mellitus without mention of complication, type I [ juvenile type], not stated as uncontrolled 250.01 [facility] [id number] [place] [address] 71146- 2694 May, [facility] [id number] [place] [address] 82659- 8436 May, [facility] [id number] [place] [address] 44832- 5996 May, [facility] [id number] [place] [address] 69698- 5428 May, Autonomic neuropathy 337.9 ; Postural hypotension 458.0 and Anemia 285.9 [facility] [address] [place] [address] 00994- 2393 May, [facility] [id number] [place] [address] 42548- 8914 Apr, [facility] [place] [facility] [address] [id number] [place] [address]- 3308 Apr, [facility] [place] [facility] [address] [id number] [place] [address]- 6409 Apr, [facility] [place] [facility] [address] [id number] [place] [address]- 9831 Apr, [facility] [place] [facility] [address] [id number] [place] [address]- 4900 Apr, [facility] [place] [facility] [address] [id number] [place] [address]- 0158 March, [facility] [place] [facility] [address] [id number] [place] [address]- 6669 March, [facility] [place] [facility] [address] [id number] [place] [address]- 0939 March, [facility] [place] [facility] [address] [id number] [place] [address]- 1027 March, [facility] [place] [facility] [address] [id number] [place] [address]- 7845 March, [facility] [place] [facility] [address] [id number] [place] [address]- 5342 Feb, [facility] [place] [facility] [address] [id number] [place] [address]- 6475 Feb, [facility] [place] [facility] [address] [id number] [place] [address]- 9627 Feb, [facility] [place] [facility] [address] [id number] [place] [address]- 6629 30 Jan, 2015 [facility] [place] [facility] [address] [id number] [place] [address]- 0002 Jan, [facility] [place] [facility] [address] [id number] [place] [address]- 7095 Jan, [facility] [place] [facility] [address] [id number] [place] [address]- 3620 Jan, [facility] [place] [facility] [address] [id number] [place] [address]- 5818 Jan, [facility] [place] [facility] [address] [id number] [place] [address]- 5945 Jan, [facility] [place] [facility] [address] [id number] [place] [address]- 5127 Jan, [facility] [place] [facility] [address] [id number] [place] [address]- 0426 Jan, [facility] [place] [facility] [address] [id number] [place] [address]- 5346 Jan, [facility] [place] [facility] [address] [id number] [place] [address]- 3193 Jan, [facility] [place] [facility] [address] [id number] [place] [address]- 9817 Jan, [facility] [place] [facility] [address] [id number] [place] [address]- 0942 Jan, [facility] [place] [facility] [address] [id number] [place] [address]- 3225 Jan, [facility] [place] [facility] [address] [facility] [id number] [place] [address]- 1199 Dec, [facility] [place] [facility] [address] [id number] [place] [address]- 9552 Dec, 2014 [facility] [place] [facility] [address] [id number] [place] [address]- 6802 Dec, 2014 [facility] [place] [facility] [address] [id number] [place] [address]- 9065 Dec, 2014 [facility] [place] [facility] [address] [id number] [place] [address]- 9883 Dec, 2014 [facility] [place] [facility] [address] [id number] [place] [address]- 3468 Dec, 2014 [facility] [place] [facility] [address] [id number] [place] [address]- 0172 Dec, [facility] [place] [facility] [address] [id number] [place] [address]- 4985 Dec, [facility] [place] [facility] [address] [id number] [place] [address]- 0119 Nov, [facility] [place] [facility] [address] [id number] [place] [address]- 8901 Nov, [facility] [place] [facility] [address] [id number] [place] [address]- 4601 Nov, [facility] [place] [facility] [address] [id number] [place] [address]- 4089 Nov, [facility] [place] [facility] [address] [id number] [place] [address]- 2080 Nov, [facility] [place] [facility] [address] [id number] [place] [address]- 7529 Nov, [facility] [place] [facility] [address] [id number] [place] [address]- 4311 Nov, [facility] [place] [facility] [address] [id number] [place] [address]- 4334 Nov, [facility] [place] [facility] [address] [id number] [place] [address]- 9378 Nov, [facility] [place] [facility] [address] [id number] [place] [address]- 5671 Oct, [facility] [place] [facility] [address] [id number] [place] [address]- 6364 Oct, [facility] [place] [facility] [address] [id number] [place] [address]- 2706 Oct, [facility] [place] [facility] [address] [id number] [place] [address] Oct, [facility] [place] [facility] [address] [id number] [place] [address] Oct, [facility] [place] [facility] [address] [id number] [place] [address] Oct, [facility] [place] [facility] [address] [id number] [place] [address] Oct, [facility] [place] [facility] [address] [id number] [place] [address] Oct, [facility] [place] [facility] [address] [id number] [place] [address] Oct, [facility] [place] [facility] [address] [id number] [place] [address] Oct, [facility] [place] [facility] [address] [id number] [place] [address] Oct, [facility] [place] [facility] [address] [id number] [place] [address] Oct, [facility] [place] [facility] [address] [id number] [place] [address] Oct, [facility] [place] [facility] [address] [id number] [place] [address] Oct, [facility] [place] [facility] [address] [id number] [place] [address] Sep, [facility] [place] [facility] [address] [id number], [place] [address] Sep, [facility] [place] [facility] [address] [id number], [place] [address] Sep, [facility] [place] [facility] [address] [id number] [place] [address] Sep, [facility] [place] [facility] [address] [id number] [place] [address] Aug, [facility] [place] [facility] [address] [id number] [place] [address] Aug, [facility] [place] [facility] [address] [id number] [place] [address] Aug, [facility] [place] [facility] [address] [id number] [place] [address] Aug, [facility] [place] [facility] [address] [id number] [place] [address] Aug, [facility] [place] [facility] [address] [id number] [place] [address] Aug, [facility] [place] [facility] [address] [id number] [place] [address] Aug, [facility] [place] [facility] [address] [id number] [place] [address] Aug, [facility] [place] [facility] [address] [id number] [place] [address] Aug, [facility] [place] [facility] [address] [id number] [place] [address] Aug, [facility] [place] [facility] [address] [id number] [place] [address] 29 Sep, 2013 [facility] [place] [facility] [address] [id number] [place] [address] 29 Sep, 2013 [facility] [place] [facility] [address] [id number] [place] [address]- [address] 29 Sep, 2013 [facility] [place] [facility] [address] [id number] [place] [address] 29 Sep, 2013 [facility] [place] [facility] [address] [id number] [place] [address]- [address] 22 Sep, 2013 [facility] [place] [facility] [address] [id number] [place] [address] 25[address] 22 Sep, 2013 [facility] [place] [facility] [address] [id number] [place] [address]- [address] 19 Sep, 2013 [facility] [place] [facility] [address] [id number] [place] [address] 19 Sep, 2013 [facility] [place] [facility] [address] [id number] [place] [address] Jul, 2013 [facility] [place] [facility] [address] [id number] [place] [address] Jul, 2013 [facility] [facility] [address] [id number] [place] [address] Jul, 2013 [facility] [place] [facility] [address] [id number] [place] [address] 8627 Jul, 2013 [facility] [place] [facility] [address] [id number] [place] [address]- 1559 Jul, 2013 [facility] [place] [facility] [address] [id number] [place] [address]- 7914 Jul, 2013 [facility] [place] [facility] [address] [id number] [place] [address]- 2398 Jul, 2013 [facility] [place] [facility] [address] [id number] [place] [address] 1870 Jul, 2013 [facility] [place] [facility] [address] [id number] [place] [address]- 0140 Jul, [facility] [place] [facility] [address] [id number] [place] [address]- 9653 Jul, 2013 [facility] [place] [facility] [address] [id number] [place] [address]- 1686 Jun, [facility] [place] [facility] [address] [id number] [place] [address] 6832 Jun, [facility] [place] [facility] [address] [id number] [place] [address]- 4221 Jun, [facility] [place] [facility] [address] [id number] [place] [address] 5000 Jun, [facility] [place] [facility] [address] [id number] [place] [address]- 1348 Jun, [facility] [place] [facility] [address] [id number] [place] [address]- 8664 Jun, [facility] [place] [address] [id number] [place] [address]- [address] Jun, [facility] [place] [facility] [address] [id number] [place] [address]- 8718 Jun, [facility] [place] [facility] [address] [id number] [place] [address]- 9694 Jun, [facility] [place] [facility] [address] [id number] [place] [address]- 8756 Jun, [facility] [place] [facility] [address] [id number] [place] [address]- 5200 Jun, [facility] [place] [facility] [address] [id number] [place] [address]- 4244 Jun, [facility] [place] [facility] [address] [id number] [place] [address]- 1659 Jun, [facility] [place] [facility] [address] [id number] [place] [address]- 0041 Jun, [facility] [place] [facility] [address] [id number] [place] [address]- 3990 Jun, [facility] [place] [facility] [address] [id number] [place] [address]- 2175 May, [facility] [place] [facility] [address] [id number] [place] [address]- 8601 May, [facility] [place] [facility] [address] [id number] [place] [address]- 4658 May, [facility] [place] [facility] [address] [id number] [place] [address]- 9261 May, [facility] [place] [facility] [address] [id number] [place] [address]- 6264 May, [facility] [place] [facility] [address] [id number] [place] [address]- 3126 May, [facility] [place] [facility] [address] [id number] [place] [address]- 5747 May, [facility] [place] [facility] [address] [id number] [place] [address]- 0914 May, [facility] [place] [facility] [address] [id number] [place] [address]- 1464 Apr, [facility] [place] [address] [id number] [place] [address]- 6580 Apr, [facility] [place] [facility] [address] [id number] [place] [address]- 9553 Apr, [facility] [place] [address] [id number] [place] [address]- 6705 Apr, [facility] [address] [id number] [place] [address]- 3909 Apr, [facility] [place] [facility] [address] [id number] [place] [address]- 8553 Apr, [facility] [place] [facility] [address] [id number] [place] [address]- 5042 Apr, [facility] [place] [facility] [address] [id number] [place] [address]- 1244 Apr, [facility] [place] [facility] [address] [id number] [place] [address]- 4716 Apr, [facility] [place] [facility] [address] [id number] [place] [address]- 3450 Apr, [facility] [address] [id number] [place] [address]- 0735 Apr, [facility] [place] [facility] [address] [id number] [place] [address]- 0937 Apr, [facility] [address] [id number] [place] [address]- 1193 Apr, [facility] [address] [id number] [place] [address]- 1198 Apr, [facility] [address] [id number] [place] [address]- 2756 Apr, [facility] [address] [id number] [place] [address]- 1363 Apr, [facility] [address] [id number] [place] [address]- 5944 Apr, [facility] [address] [id number] [place] [address]- 5072 Apr, [facility] [address] [id number] [place] [address]- 1410 March, [facility] [address] [id number] [place] [address]- 3875 March, [facility] [address] [id number] [place] [address]- 0651 March, [facility] [facility] [address] [id number] [place] [address]- 7151 March, [facility] [address] [id number] [place] [address]- 9398 March, [facility] [address] [id number] [place] [address]- 9790 March, [facility] [facility] [address] [id number] [place] [address]- 7485 March, [facility] [address] [id number] [place] [address]- 8320 March, [facility] [address] [id number] [place] [address]- 1005 March, [facility] [address] [id number] [place] [address]- 3608 Feb, [facility] [address] [id number] [place] [address]- 5063 Feb, [facility] [address] [id number] [place] [address]- 2622 Feb, [facility] [address] [id number] [place] [address]- 1012 Feb, [facility] [address] [id number] [place] [address]- 2145 Feb, [facility] [address] [id number] [place] [address]- 0541 Feb, [facility] [address] [id number] [place] [address]- 8066 Feb, [facility] [address] [id number] [place] [address]- 5067 Feb, [facility] [address] [id number] [place] [address]- 7745 Feb, [facility] [address] [id number] [place] [address]- 0847 Feb, [facility] [address] [id number] [place] [address]- 4336 Feb, [facility] [address] [id number] [place] [address]- 8201 Feb, [facility] [address] [id number] [place] [address]- 3449 Feb, [facility] [address] [id number] [place] [address]- 5579 Jan, [facility] [address] [id number] [place] [address]- 6303 31 Jan, 2014 [facility] [address] [id number] [place] [address]- 6545 24 Jan, 2014 [facility] [address] [id number] [place] [address]- 6034 24 Jan, 2014 [facility] [address] [id number] [place] [address]- 1288 17 Jan, 2014 [facility] [address] [id number] [place] [address]- 8947 Jan, [facility] [address] [id number] [place] [address]- 1471 Jan, [facility] [address] [id number] [place] [address]- 7845 Jan, [facility] [address] [id number] [place] [address]- 5530 Dec, [facility] [address] [id number] [place] [address]- 1763 Dec, [facility] [address] [id number] [place] [address]- 5946 Dec, [facility] [address] [id number] [place] [address]- 2510 Dec, [facility] [address] [id number] [place] [address]- 1931 Dec, [facility] [address] [id number] [place] [address]- 4694 Dec, [facility] [address] [id number] [place] [address]- 0397 Dec, [facility] [address] [id number] [place] [address]- 5786 Dec, [facility] [address] [id number] [place] [address]- 9434 Dec, [facility] [address] [id number] [place] [address]- 2851 Dec, [facility] [address] [id number] [place] [address]- 9141 Nov, [facility] [address] [id number] [place] [address]- 0738 Nov, [facility] [address] [id number] [place] [address]- 6404 Nov, [facility] [address] [id number] [place] [address]- 9856 Nov, [facility] [address] [id number] [place] [address]- 9209 Nov, [facility] [address] [id number] [place] [address]- 7018 Nov, [facility] [address] [id number] [place] [address]- 5475 Nov, [facility] [address] [id number] [place] [address]- 2573 Nov, [facility] [address] [id number] [place] [address]- 3782 Nov, [facility] [address] [id number] [place] [address]- 2852 Nov, [facility] [address] [id number] [place] [address]- 2542 19 Oct, 2013 [facility] [address] [id number] [place] [address]- 4455 19 Oct, 2013 [facility] [address] [facility] [id number] [place] [address]- 8672 18 Oct, 2013 [facility] [address] [id number] [place] [address]- 8147 18 Oct, 2013 [facility] [address] [id number] [place] [address]- 6997 17 Oct, 2013 [facility] [address] [id number] [place] [address]- 4018 17 Oct, 2013 [facility] [address] [id number] [place]60 16 Oct, 2013 [facility] [address] [id number] [place] [address]- 2159 16 Oct, 2013 [facility] [address] [id number] [place] [address]- 9276 Oct, [facility] [address] [id number] [place] [address]- 8477 Oct, [facility] [address] [id number] [place]29 Oct, [facility] [address] [id number] [place] [address]- 1352 Oct, [facility] [address] [id number] [place] [address]- 4339 Oct, [facility] [address] [id number] [place] [address]- 3112 Oct, [facility] [address] [id number] [place] [address]- 3669 Sep, [facility] [address] [id number] [place] [address]- 8532 Sep, [facility] [address] [id number] [place] [address]- 5336 Sep, [facility] [address] [id number] [place] [address]- 9515 Sep, [facility] [address] [id number] [place] [address]- 6092 Sep, [facility] [address] [id number] [place] [address]- 8164 Sep, [facility] [address] [id number] [place] [address]- 4174 Aug, [facility] [address] [id number] [place] [address]- 5599 Aug, [facility] [address] [id number] [place] [address]- 6058 17 Aug, 2013 [facility] [address] [id number] [place] [address]- 9729 17 Aug, 2013 [facility] [address] [id number] [place] [address]- 7530 10 Aug, 2013 [facility] [address] [id number] [place] [address]- 2263 10 Aug, 2013 [facility] [address] [id number] [place] [address]- 0543 07 Aug, 2013 [facility] [address] [id number] [place] [address]- 5254 02 Aug, 2013 [facility] [address] [id number] [place] [address]- 4226 02 Aug, 2013 [facility] [address] [id number] [place] [address]- 9684 25 Jul, 2012 [facility] [address] [id number] [place] [address]- 6756 23 Sep, 2012 [facility] [address] [id number], [place] [address]- 8861 21 Sep, 2012 [facility] [address] [id number] [place] [address]- 2521 20 Sep, 2012 [facility] [address] [id number] [place] [address]- 2345 18 Sep, 2012 [facility] [address] [id number], [place] [address]- 9760 17 Sep, 2012 [facility] [address] [id number], [place] [address]- 3175 16 Sep, 2012 [facility] [address] [id number] [place] [address]- 7127 11 Sep, 2012 [facility] [address] [id number], [place] [address]- 8933 09 Sep, 2012 [facility] [address] [id number], [place] [address]- 2549 09 Sep, 2012 [facility] [address] [id number] [place] [address]- 3230 Jul, [facility] [address] [id number] [place] [address]- 2461 Jul, [facility] [address] [id number] [place] [address]- 9777 Jun, [facility] [address] [id number] [place] [address]- 2550 Jun, [facility] [address] [id number] [place] [address]- 8295 Jun, [facility] [address] [id number] [place] [address]- 2061 Jun, [facility] [address] [id number] [place] [address]- 0503 Jun, [facility] [address] [id number] [place] [address]- 5685 Jun, [facility] [address] [id number] [place] [address]- 0385 Jun, [facility] [address] [id number] [place] [address]- 8080 Jun, [facility] [address] [id number] [place] [address]- 3917 Jun, [facility] [address] [id number] [place] [address]- 3348 May, [facility] [address] [id number] [place] [address]- 8838 May, [facility] [place] [facility] [address] [id number] [place] [address]- 1947 May, [facility] [place] [facility] [address] [id number] [place] [address] 2544 May, [facility] [place] [facility] [address] [id number] [place] [address]- 3144 May, [facility] [place] [facility] [address] [id number] [place] [address]- 5118 May, [facility] [place] [facility] [address] [id number] [place] [address]- 2534 May, [facility] [place] [facility] [address] [id number] [place] [address]- 2565 March, [facility] [place] [facility] [address] [id number] [place] [address]- 4980 March, [facility] [place] [facility] [address] [id number] [place] [address]- 7238 March, [facility] [place] [facility] [address] [id number] [place] [address]- 9730 Dec, [facility] [place] [facility] [address] [id number] [place] [address]- 2486 Nov, [facility] [place] [facility] [address] [id number] [place] [address]- 0748 Aug, [facility] [place] [facility] [address] [id number] [place] [address]- 5833 Aug, [facility] [place] [facility] [address] [id number] [place] [address]- 3132 Jun, [facility] [place] [facility] [address] [id number] [place] [address]- 9974 Jun, [facility] [place] [facility] [address] [id number] [place] [address]- 3287 Jun, [facility] [place] [facility] [address] [id number] [place] [address]- 3241 Jun, [facility] [place] [facility] [address] [id number] [place] [address]- 9435 May, [facility] [place] [facility] [address] [id number] [place] [address]- 3701 May, [facility] [place] [facility] [address] [id number] [place] [address]- 2951 May, [facility] [address] [id number] [place] [address]- 4723 May, [facility] [place] [facility] [address] [id number] [place] [address]- 4346 May, [facility] [place] [facility] [address] [id number] [place] [address]- 5280 May, [facility] [place] [facility] [address] [id number] [place] [address]- 4695 May, [facility] [place] [facility] [address] [id number] [place] [address]- 2061 Apr, [facility] [place] [facility] [address] [id number] [place] [address]- 0327 Apr, [facility] [place] [facility] [address] [id number] [place] [address]- 5722 Apr, [facility] [place] [facility] [address] [id number] [place] [address]- 3296 Apr, [facility] [place] [facility] [address] [id number] [place] [address]- 2619 March, [facility] [place] [facility] [address] [id number] [place] [address]- 0254 March, [facility] [place] [facility] [address] [id number] [place] [address]- 1065 March, [facility] [place] [facility] [address] [id number] [place] [address]- 7221 March, [facility] [place] [facility] [address] [id number] [place] [address]- 9338 March, [facility] [place] [facility] [address] [id number] [place] [address]- 0243 March, [facility] [place] [facility] [address] [id number] [place] [address]- 4639 March, [facility] [place] [facility] [address] [id number] [place] [address]- 7796 March, [facility] [place] [facility] [address] [id number] [place] [address]- 5727 March, [facility] [place] [facility] [address] [id number] [place] [address]- 9306 Feb, [facility] [place] [facility] [address] [id number] [place] [address]- 5894 Feb, [facility] [place] [facility] [address] [id number] [place] [address]- 9737 Jan, [facility] [place] [facility] [address] [id number] [place] [address]- 8079 27 Jan, 2012 [facility] [place] [facility] [address] [id number] [place] [address]- 0749 Jan, [facility] [place] [facility] [address] [id number] [place] [address]- 3037 Jan, [facility] [place] [facility] [address] [id number] [place] [address]- 7175 Dec, [facility] [place] [facility] [address] [id number] [place] [address]- 1576 Dec, [facility] [place] [facility] [address] [id number] [place] [address]- 6649 Dec, [facility] [place] [facility] [address] [id number] [place] [address] Nov, [facility] [place] [facility] [address] [id number] [place] [address] Oct, [facility] [place] [facility] [address] [id number] [place] [address] Oct, [facility] [place] [facility] [address] [id number] [place] [address] Oct, [facility] [place] [facility] [address] [id number] [place] [address] 14 Oct, 2011 [facility] [place] [facility] [address] [id number] [place] [address] 14 Oct, 2011 [facility] [place] [facility] [address] [id number] [place] [address] 12 Oct, 2011 [facility] [place] [facility] [address] [id number] [place] [address] Oct, [facility] [place] [facility] [address] [id number] [place] [address] Oct, [facility] [place] [facility] [address] [id number] [place] [address] Sep, [facility] [place] [facility] [address] [id number] [place] [address] 17 Sep, 2011 [facility] [place] [facility] [address] [id number] [place] [address] 14 Sep, 2011 [facility] [place] [facility] [address] [id number], [place] [address] Sep, [facility] [place] [facility] [address] [id number] [place] [address] Sep, [facility] [place] [facility] [address] [id number] [place] [address] Sep, [facility] [place] [facility] [address] [id number], [place] [address] Sep, [facility] [place] [facility] [address] [id number], [place] [address] Sep, [facility] [place] [facility] [address] [id number] [place] [address] Sep, [facility] [place] [facility] [address] [id number], [place] [address] 24 Aug, 2011 [facility] [place] [facility] [address] [id number] [place] [address] 15 Jul, 2011 [facility] [place] [facility] [address] [facility] [id number] [place] [address] Oct, [facility] [address] [facility] [id number] [place] [address] Oct, [facility] [address] [facility] [id number] [place] [address] Oct, IMMUNIZATIONS No Known Immunizations SOCIAL HISTORY Never Assessed REASON FOR VISIT Fioricet PLAN OF CARE VITAL SIGNS MEDICATIONS Medication Instructions Dosage Frequency Start Date End Date Duration Status Fioricet 50-325-40 MG Orally every 4 hrs 1 tablet as needed 4h Jun, Active RESULTS No Results PROCEDURES No Known procedures INSTRUCTIONS MEDICATIONS ADMINISTERED No Known Medications MEDICAL (GENERAL) HISTORY Type Description Date Medical History Diabetic Surgical History Bilat tubal ligation Hospitalization History Diabetic multiple hospitalizations
--- OUTSIDE RECORDS SUMMARY | 2018-04-25 06:41 | XMS REPORT ---
Author Author ALAN CARABALLO [facility] Address [address] [place] [address] Care Team Providers Care Agent Producer Name Role Phone ALAN CARABALLO Unavailable PROBLEMS Type Condition ICD9-CM Code [id number]-NI Code Onset Dates Condition Status SNOMED Code Problem Irritable bowel K58.9 Active 94517354 Problem Restless legs syndrome G25.81 Active 647971535 Problem Anemia, unspecified D64.9 Active 754300930 Problem Dysthymia F34.1 Active 91792620 Problem Chronic kidney disease, stage 4 (severe) N18.4 Active 329289086 Problem Low back pain M54.5 Active 322081132 Problem Type 1 diabetes mellitus without complications E10.9 Active 963897921 Problem Migraine without aura and without status migrainosus, not intractable G43.009 Active 294540507 Problem Other insomnia G47.09 Active 877666128 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 45747624 Problem Proteinuria, unspecified R80.9 Active 54604144 Problem Type 1 diabetes mellitus with hyperglycemia E10.65 Active 69253830 Problem Chronic kidney disease, unspecified N18.9 Active 528051288 Problem Type 1 diabetes mellitus with hypoglycemia without coma E10.649 Active 10552539 Problem Migraine G43.909 Active 79734921 ALLERGIES No Information SOCIAL HISTORY Never Assessed PLAN OF CARE VITAL SIGNS MEDICATIONS Medication Instructions Dosage Frequency Start Date End Date Duration Status Tramadol HCl 50 MG Orally 1 tablet in the morning and 2 tablets in the evening 1 tablet Feb, 28 days Active RESULTS No Results PROCEDURES No Known procedures IMMUNIZATIONS No Known Immunizations MEDICAL (GENERAL) HISTORY Type Description Date Medical History Diabetic Surgical History Bilat tubal ligation Hospitalization History Diabetic multiple hospitalizations
--- OUTSIDE RECORDS SUMMARY | 2018-04-25 06:41 | XMS REPORT ---
Author Author ALAN CARABALLO [facility] eClinicalWorks Address Unknown Phone Unavailable Care Team Providers Care Morgue Librarian Name Role Phone ALAN CARABALLO CP Unavailable [...] Start Date End Date Status Dosage NovoLog [facility] [address]-08 100 UNIT/ML per insulin pump April 22, 2014 as directed Results No Known Results Summary Purpose eClinicalWorks Submission
--- OUTSIDE RECORDS SUMMARY | 2018-04-25 06:41 | XMS REPORT ---
Author Author ALAN CARABALLO [facility] eClinicalWorks Address Unknown Phone Unavailable Care Team Providers Care Auto Air Conditioning Installer Name Role Phone ALAN CARABALLO CP Unavailable [...]
--- OUTSIDE RECORDS SUMMARY | 2018-04-25 06:41 | XMS REPORT ---
Author Author ALAN CARABALLO [facility] eClinicalWorks Address Unknown Phone Unavailable Care Team Providers Care Security Administrator Name Role Phone ALAN CARABALLO CP Unavailable [...] Instructions Start Date End Date Status Dosage Fioricet with Codeine NDC 0 50-626-17-30 mg February 11, 2015 take 1 capsule by Oral route as needed not to exceed 6 capsules per 24hrs every 4 hours Results No Known Results Summary Purpose eClinicalWorks Submission
--- OUTSIDE RECORDS SUMMARY | 2018-04-25 06:41 | XMS REPORT ---
Author Author ALAN CARABALLO [facility] Address [address] [place] [address] Care Team Providers Care Director Of Marketing Operations Name Role Phone ALAN CARABALLO Unavailable PROBLEMS Type Condition ICD9-CM Code [id number] Code Onset Dates Condition Status SNOMED Code Problem Irritable bowel K58.9 Active 90628835 Problem Restless legs syndrome G25.81 Active 235813147 Problem Anemia, unspecified D64.9 Active 661560645 Problem Dysthymia F34.1 Active 06523318 Problem Chronic kidney disease, stage 4 (severe) N18.4 Active 798197629 Problem Low back pain M54.5 Active 388114712 Problem Type 1 diabetes mellitus without complications E10.9 Active 924659472 Problem Migraine without aura and without status migrainosus, not intractable G43.009 Active 592920855 Problem Other insomnia G47.09 Active 771237600 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
--- OUTSIDE RECORDS SUMMARY | 2018-04-25 06:41 | XMS REPORT ---
Author Author ALAN CARABALLO [facility] eClinicalWorks Address Unknown Phone Unavailable Care Team Providers Care 411 Directory Assistance Operator Name Role Phone ALAN CARABALLO CP Unavailable [...] Date End Date Status Dosage Tramadol HCl [facility] [address]-88 50 MG Orally 1 tablet in the morning and 2 tablets in the evening March 23, 2015 1 tablet Results No Known Results Summary Purpose eClinicalWorks Submission
--- OUTSIDE RECORDS SUMMARY | 2018-04-25 06:42 | XMS REPORT ---
Author Author ALAN CARABALLO [facility] Address [address] [place] [address] Care Team Providers Care Vascular Ultrasound Technologist Name Role Phone ALAN CARABALLO Unavailable PROBLEMS Type Condition ICD9-CM Code [id number]-[id number] Code Onset Dates Condition Status SNOMED Code Problem Irritable bowel K58.9 Active 90884425 Problem Restless legs syndrome G25.81 Active 857446769 Problem Anemia, unspecified D64.9 Active 228800053 Problem Dysthymia F34.1 Active 22113013 Problem Chronic kidney disease, stage 4 (severe) N18.4 Active 395562396 Problem Low back pain M54.5 Active 426714253 Problem Type 1 diabetes mellitus without complications E10.9 Active 773409192 Problem Migraine without aura and without status migrainosus, not intractable G43.009 Active 306352267 Problem Other insomnia G47.09 Active 420021205 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 37282524 Problem Proteinuria, unspecified R80.9 Active 33946038 Problem Type 1 diabetes mellitus with hyperglycemia E10.65 Active 48526608 Problem Chronic kidney disease, unspecified N18.9 Active 079658187 Problem Type 1 diabetes mellitus with hypoglycemia without coma E10.649 Active 33983575 Problem Migraine G43.909 Active 94608055 ALLERGIES No Information SOCIAL HISTORY Never Assessed PLAN OF CARE VITAL SIGNS MEDICATIONS Unknown Medications RESULTS No Results PROCEDURES No Known procedures IMMUNIZATIONS No Known Immunizations MEDICAL (GENERAL) HISTORY Type Description Date Medical History Diabetic Surgical History Bilat tubal ligation Hospitalization History Diabetic multiple hospitalizations
--- OUTSIDE RECORDS SUMMARY | 2018-04-25 06:42 | XMS REPORT ---
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 Name Role Phone ALAN CARABALLO Unavailable PROBLEMS Type Condition ICD9-CM Code PXD83-[place] Code Onset Dates Condition Status SNOMED Code Problem Type 1 diabetes mellitus without complications E10.9 Active 184790281 Problem Other insomnia G47.09 Active 638652988 Problem Low back pain M54.5 Active 716689154 Problem Migraine with aura and without status migrainosus, not intractable G43.109 Active 3742072 Problem Menorrhagia with regular cycle N92.0 Active 000014010 Problem Chronic kidney disease, stage 4 (severe) N18.4 Active 399020002 Problem Migraine without aura and without status migrainosus, not intractable G43.009 Active 316158479 Problem Autonomic neuropathy G90.9 Active 727433133 Problem Dysthymia F34.1 Active 80373870 Problem Type 1 diabetes mellitus with hypoglycemia without coma E10.649 Active 96450685 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 91116253 Problem Type 1 diabetes mellitus with hyperglycemia E10.65 Active 02638808 Problem Migraine G43.909 Active 26626965 Problem Irritable bowel K58.9 Active 05630011 Problem Proteinuria, unspecified R80.9 Active 24582483 Problem Anemia, unspecified D64.9 Active 114302165 Problem Chronic kidney disease, unspecified N18.9 Active 002926502 Problem Restless legs syndrome G25.81 Active 622298414 ALLERGIES No Information ENCOUNTERS Encounter Location Date Diagnosis [facility] [address] [facility] [id number] [address] Feb, Low back pain M54.5 [facility] [address] [id number] [address] Jan, Restless legs syndrome G25.81 [place] [id number] [place] [address] 16620- 3589 Jan, Low back pain M54.5 [place] [address] 32472- 6968 Jan, [place] [address] 65785- 4590 Jan, Type 1 diabetes mellitus without complications E10.9 ; Low back pain M54.5 ; Cough R05 ; Diarrhea, unspecified type R19.7 ; Migraine without aura and without status migrainosus, not intractable G43.009 and Uses control Z30.9 [place] [address] 11537- 9465 Dec, Low back pain M54.5 [place] [address] 60423- 4733 Dec, [place] [address] 24277- 2528 Nov, Well woman exam Z01.419 ; Menorrhagia with regular cycle N92.0 ; Vaginal dryness N89.8 and Migraine with aura and without status migrainosus, not intractable G43.109 [place] [id number] [place] [address] 74720- 4564 Nov, [place] [address] 81923- 8004 Nov, Low back pain M54.5 [place] [id number] [place] [address] 88468- 9072 Oct, Low back pain M54.5 [place] [address] 86722- 2495 Oct, Migraine without aura and without status migrainosus, not intractable G43.009 [place] [address] 23107- 7035 Sep, Low back pain M54.5 [facility] [id number] [place] [address] 15877- 6023 Sep, [facility] [id number] [place] [address] 57411- 8552 Sep, Migraine without aura and without status migrainosus, not intractable G43.009 [facility] [id number] [place] [address] 62916- 6168 Sep, Type 1 diabetes mellitus with hypoglycemia without coma E10.649 ; Anemia D64.9 ; Migraine without aura and without status migrainosus, not intractable G43.009 ; Chronic kidney disease, unspecified N18.9 ; Autonomic neuropathy G90.9 and Postural hypotension I95.1 [facility] [id number] [place] [address] 71684- 1540 Sep, Low back pain M54.5 [facility] [id number] [place] [address] 33086- 9635 Aug, Low back pain M54.5 [facility] [id number] [place] [address] 39770- 7844 Jul, [facility] [address] 64202- 2284 Jul, Low back pain M54.5 [facility] [id number] [place] [address] 88909- 1765 Jun, [facility] [id number] [place] [address] 55089- 2613 Jun, Low back pain M54.5 [facility] [id number] [place] [address] 25787- 4445 Jun, Migraine without aura and without status migrainosus, not intractable G43.009 [facility] [id number] [place] [address] 94860- 2066 Jun, Type 1 diabetes mellitus with hyperglycemia E10.65 ; Dysthymia F34.1 and Migraine without aura and without status migrainosus, not intractable G43.009 [facility] [id number] [place] [address] 77384- 9346 Jun, [facility] [id number] [place] [address] 66557- 6894 May, Type 1 diabetes mellitus with hyperglycemia E10.65 [facility] [address] 36024- 3210 May, Low back pain M54.5 [facility] [id number] [place] [address] 46775- 4746 May, Type 1 diabetes mellitus with hyperglycemia E10.65 [facility] [id number] [place] [address] 70453- 7205 Apr, [facility] [id number] [place] [address] 61268- 5419 Apr, Chronic kidney disease, stage 4 (severe) N18.4 [facility] [id number] [place] [address] 37808- 1680 Apr, Low back pain M54.5 [facility] [id number] [place] [address] 83617- 5304 March, [facility] [id number] [place] [address] 31553- 7530 March, Low back pain M54.5 [facility] [id number] [place] [address] 85508- 2684 Feb, [facility] [id number] [place] [address] 04232- 8752 Feb, [facility] [id number] [place] [address] 36649- 3896 Feb, Low back pain M54.5 [facility] [id number] [place] [address] 38914- 7240 Feb, Low back pain M54.5 [facility] [address] [place] [address] 57663- 0533 Feb, Migraine without aura and without status migrainosus, not intractable G43.009 [facility] [id number] [place] [address] 69751- 9001 Feb, [facility] [id number] [place] [address] 03737- 3984 Jan, Low back pain M54.5 [facility] [id number] [place] [address] 73786- 4478 Jan, Type 1 diabetes mellitus without complications E10.9 ; Anemia D64.9 ; Chronic kidney disease, unspecified N18.9 ; Migraine without aura and without status migrainosus, not intractable G43.009 and Other insomnia G47.09 [place] [id number] [place] [address] 94979- 6019 Jan, [facility] [id number] [place] [address] 16416- 2171 Dec, Low back pain M54.5 [facility] [id number] [place] [address] 15062- 0096 Dec, [facility] [id number] [place] [address] 56270- 1326 Dec, [facility] [id number] [place] [address] 46186- 0954 Dec, Shortness of breath R06.02 ; Type 1 diabetes mellitus without complications E10.9 and Leg swelling M79.89 [place] [id number] [place] [address] 70967- 9256 Nov, Low back pain M54.5 [facility] [id number] [place] [address] 91763- 8215 Nov, Viral syndrome B34.9 [facility] [address] 51350- 1644 Oct, Low back pain M54.5 [facility] [id number] [place] [address] 14481- 1728 Oct, [facility] [id number] [place] [address] 11244- 7419 Oct, Low back pain M54.5 [facility] [address] 60730- 2544 Sep, [facility] [address] 95941- 0899 Sep, Fatigue, unspecified type R53.83 ; Type 1 diabetes mellitus without complications E10.9 and Anemia D64.9 [facility] [id number] [place] [address] 11356- 1361 Sep, Low back pain M54.5 [facility] [id number] [place] [address] 24961- 0128 Sep, Type 1 diabetes mellitus with hyperglycemia E10.65 [facility] [id number] [place] [address] 89597- 1895 Aug, Type 1 diabetes mellitus without complications E10.9 [facility] [id number] [place] [address] 89036- 1304 Aug, [facility] [id number] [place] [address] 88650- 9070 Aug, [facility] [id number] [place] [address] 88725- 0050 Jul, [facility] [id number] [place] [address] 90461- 7720 14 Jul, 2016 Low back pain M54.5 [facility] [id number] [place] [address] 93989- 1967 12 Jul, 2016 Hyperkalemia, diminished renal excretion E87.5 [facility] [id number] [place] [address] 80081- 6632 Jul, Hyperkalemia, diminished renal excretion E87.5 [facility] [id number] [place] [address] 94907- 3200 Jun, [facility] [id number] [place] [address] 05743- 3606 Jun, Low back pain M54.5 [facility] [address] 70941- 7709 Jun, Anemia D64.9 ; Autonomic neuropathy G90.9 and Postural hypotension I95.1 [facility] [address] 80181- 0590 Jun, [facility] [address] 31131- 2866 May, Type 1 diabetes mellitus with complications E10.8 and Anemia D64.9 [facility] [address] 55489- 3429 May, Low back pain M54.5 [facility] [id number] [place] [address] 08054- 7217 Apr, [facility] [address] 73753- 6928 Apr, Low back pain M54.5 [facility] [id number] [place] [address] 97342- 5654 Apr, [facility] [id number] [place] [address] 36996- 2770 Apr, [facility] [id number] [place] [address] 79465- 9714 March, Low back pain M54.5 and Other chronic pain G89.29 [facility] [id number] [place] [address] 88850- 0794 March, Type 1 diabetes mellitus without complications E10.9 [facility] [address] 08507- 5536 March, [facility] [id number] [place] [address] 92329- 8220 March, [facility] [id number] [place] [address] 61466- 4320 Feb, [facility] [id number] [place] [address] 34394- 0997 Feb, Type 1 diabetes mellitus without complications E10.9 [facility] [id number] [place] [address] 09191- 7051 Feb, Trochanteric bursitis, right hip M70.61 [facility] [id number] [place] [address] 12094- 8422 Jan, [facility] [id number] [place] [address] 68061- 0900 Jan, [facility] [id number] [place] [address] 05020- 7045 Dec, Type 1 diabetes mellitus with complications E10.8 [facility] [id number] [place] [address] 42090- 7065 Dec, [facility] [id number] [place] [address] 62436- 9406 Dec, Anemia D64.9 ; Autonomic neuropathy G90.9 and Postural hypotension I95.1 [facility] [id number] [place] [address] 42566- 7909 Dec, [facility] [id number] [place] [address] 82219- 2937 Nov, Sore throat J02.9 [facility] [id number] [place] [address] 84963- 3931 Nov, Type 1 diabetes mellitus with complications E10.8 [facility] [id number] [place] [address] 67616- 9347 Nov, 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 ; Proteinuria, unspecified R80.9 and Chronic kidney disease, unspecified N18.9 [facility] [id number] [place] [address] 66402- 4839 Nov, [facility] [id number] [place] [address] 59577- 9505 Nov, Trochanteric bursitis, right hip M70.61 [facility] [id number] [place] [address] 67773- 2811 Nov, [facility] [id number] [place] [address] 71421- 1655 Oct, [facility] [id number] [place] [address] 20158- 8287 Oct, [facility] [id number] [place] [address] 92746- 0207 Oct, [facility] [id number] [place] [address] 50288- 6910 Sep, [facility] [id number] [place] [address] 43378- 7384 Sep, [facility] [id number] [place] [address] 13948- 7190 Sep, Type 2 diabetes mellitus with complication E11.8 and Right hip pain M25.551 [facility] [id number] [place] [address] 27174- 2467 Sep, [facility] [id number] [place] [address] 33739- 8043 Aug, [facility] [id number] [place] [address] 33455- 4566 Aug, [facility] [id number] [place] [address] 32314- 5942 Aug, [facility] [id number] [place] [address] 28472- 5484 Aug, Type 1 diabetes mellitus without complications E10.9 [facility] [address] [place] [address] 51229- 8905 16 Jul, 2015 [facility] [id number] [place] [address] 22154- 2404 Jul, [facility] [id number] [place] [address] 04948- 1058 Jul, [facility] [id number] [place] [address] 30027- 8915 Jun, [facility] [id number] [place] [address] 81068- 2885 Jun, [facility] [id number] [place] [address] 56275- 3913 Jun, [facility] [id number] [place] [address] 54049- 9105 Jun, [facility] [id number] [place] [address] 05366- 3771 Jun, [facility] [id number] [place] [address] 16761- 1320 Jun, Diabetes mellitus without mention of complication, type I [ juvenile type], not stated as uncontrolled 250.01 [facility] [id number] [place] [address] 12286- 8571 May, [facility] [id number] [place] [address] 85765- 0748 May, [facility] [id number] [place] [address] 24843- 2323 May, [facility] [id number] [place] [address] 76800- 5011 May, Autonomic neuropathy 337.9 ; Postural hypotension 458.0 and Anemia 285.9 [facility] [id number] [place] [address] 62907- 8892 May, [facility] [place] [facility] [address] [id number] [place] [address]- 3320 Apr, [facility] [place] [facility] [address] [id number] [place] [address]- 5693 Apr, [facility] [place] [facility] [address] [id number] [place] [address]- 2490 Apr, [facility] [place] [facility] [address] [id number] [place] [address]- 3195 Apr, [facility] [place] [facility] [address] [id number] [place] [address]- 9970 Apr, [facility] [place] [facility] [address] [id number] [place] [address]- 3800 March, [facility] [place] [facility] [address] [id number] [place] [address]- 3106 March, [facility] [place] [facility] [address] [id number] [place] [address]- 1012 March, [facility] [place] [facility] [address] [id number] [place] [address]- 9077 March, [facility] [place] [facility] [address] [id number] [place] [address]- 8102 March, [facility] [place] [facility] [address] [id number] [place] [address]- 4121 Feb, [facility] [place] [facility] [address] [id number] [place] [address]- 7328 14 Feb, 2015 [facility] [place] [facility] [address] [id number] [place] [address]- 5553 Feb, [facility] [place] [facility] [address] [id number] [place] [address]- 0546 30 Jan, 2015 [facility] [place] [facility] [address] [id number] [place] [address]- 8269 Jan, [facility] [place] [facility] [address] [id number] [place] [address]- 5322 Jan, [facility] [place] [facility] [address] [id number] [place] [address]- 4325 Jan, [facility] [place] [facility] [address] [id number] [place] [address]- 5739 Jan, [facility] [place] [facility] [address] [facility] [id number] [place] [address]- 2385 Jan, [facility] [place] [facility] [address] [id number] [place] [address]- 3149 Jan, [facility] [place] [facility] [address] [id number] [place] [address]- 0925 Jan, [facility] [place] [facility] [address] [facility] [id number] [place] [address]- 5327 Jan, [facility] [place] [facility] [address] [facility] [id number] [place] [address]- 9002 Jan, [facility] [place] [facility] [address] [facility] [id number] [place] [address]- 3618 Jan, [facility] [place] [facility] [address] [facility] [id number] [place] [address]- 6731 Jan, [facility] [place] [facility] [address] [facility] [id number] [place] [address]- 7823 Jan, [facility] [place] [facility] [address] [id number] [place] [address]- 5942 Dec, 2014 [facility] [place] [facility] [address] [facility] [id number] [place] [address]- 0563 Dec, 2014 [facility] [place] [facility] [address] [id number] [place] [address]- 2691 Dec, 2014 [facility] [place] [facility] [address] [id number] [place] [address]- 9290 Dec, 2014 [facility] [place] [facility] [address] [facility] [id number] [place] [address]- 5172 16 Dec, 2014 [facility] [place] [facility] [address] [id number] [place] [address]- 7616 Dec, [facility] [place] [facility] [address] [id number] [place] [address]- 6756 Dec, [facility] [place] [facility] [address] [id number] [place] [address]- 9318 Dec, [facility] [place] [facility] [address] [id number] [place] [address]- 6082 Nov, [facility] [place] [facility] [address] [id number] [place] [address]- 0104 Nov, [facility] [place] [facility] [address] [id number] [place] [address]- 0861 Nov, [facility] [place] [facility] [address] [id number] [place] [address]- 5285 Nov, [facility] [place] [facility] [address] [id number] [place] [address]- 8583 Nov, [facility] [place] [facility] [address] [id number] [place] [address]- 9782 Nov, [facility] [place] [facility] [address] [id number] [place] [address]- 6408 Nov, [facility] [place] [facility] [address] [id number] [place] [address]- 0700 Nov, [facility] [place] [facility] [address] [id number] [place] [address]- 7244 Nov, [facility] [place] [facility] [address] [id number] [place] [address] Oct, [facility] [place] [facility] [address] [id number] [place] [address] Oct, [facility] [place] [facility] [address] [id number] [place] [address] Oct, [facility] [place] [facility] [address] [id number] [place] [address] Oct, [facility] [place] [facility] [address] [id number] [place] [address] Oct, [facility] [place] [facility] [address] [id number] [place] [address] Oct, [facility] [place] [facility] [address] [id number] [place] [address] Oct, [facility] [place] [facility] [address] [id number] [place] [address] Oct, [facility] [place] [facility] [address] [id number] [place] [address] Oct, [facility] [place] [facility] [address] [id number] [place] [address] Oct, [facility] [place] [facility] [address] [facility] [id number] [place] [address] Oct, [facility] [place] [facility] [address] [id number] [place] [address] Oct, [facility] [place] [facility] [address] [facility] [id number] [place] [address] Oct, [facility] [place] [facility] [address] [facility] [id number] [place] [address] Oct, [facility] [place] [facility] [address] [id number] [place] [address] Sep, [facility] [place] [facility] [address] [id number] [place] [address] Sep, [facility] [place] [facility] [address] [id number] [place] [address] Sep, [facility] [place] [facility] [address] [id number] [place] [address] Sep, [facility] [place] [facility] [address] [facility] [id number] [place] [address] Aug, [facility] [place] [facility] [address] [id number] [place] [address] Aug, [facility] [place] [facility] [address] [id number] [place] [address] Aug, [facility] [place] [facility] [address] [id number] [place] [address] Aug, [facility] [place] [facility] [address] [id number] [place] [address] Aug, [facility] [place] [facility] [address] [id number] [place] [address] Aug, [facility] [place] [facility] [address] [id number] [place] [address] Aug, [facility] [place] [facility] [address] [id number] [place] [address] Aug, [facility] [place] [facility] [address] [id number] [place] [address] Aug, [facility] [place] [facility] [address] [id number] [place] [address] Aug, [facility] [place] [facility] [address] [id number] [place] [address] 29 Jul, 2013 [facility] [place] [facility] [address] [id number] [place] [address] 29 Sep, 2013 [facility] [place] [facility] [address] [id number] [place] [address] 29 Sep, 2013 [facility] [place] [facility] [address] [id number] [place] [address] 29 Sep, 2013 [facility] [place] [facility] [address] [id number] [place] [address] 22 Jul, 2013 [facility] [place] [facility] [address] [id number] [place] [address] 22 Jul, 2013 [facility] [place] [facility] [address] [id number] [place] [address] 19 Sep, 2013 [facility] [place] [facility] [address] [id number] [place] [address] 19 Jul, 2013 [facility] [place] [facility] [address] [id number] [place] [address] 2619 11 Jul, 2013 [facility] [place] [facility] [address] [id number] [place] [address] 2069 11 Jul, 2013 [facility] [place] [facility] [address] [id number] [place] [address]- 5636 10 Jul, 2013 [facility] [place] [facility] [address] [id number] [place] [address]- 4525 10 Jul, 2013 [facility] [place] [facility] [address] [id number] [place] [address] 5856 08 Jul, 2013 [facility] [place] [facility] [address] [id number] [place] [address]- 2359 08 Jul, 2013 [facility] [place] [facility] [address] [id number] [place] [address]- 6547 Jul, 2013 [facility] [place] [facility] [address] [id number] [place] [address]- 2971 Jul, 2013 [facility] [place] [facility] [address] [id number] [place] [address] 0638 Jul, 2013 [facility] [place] [facility] [address] [id number] [place] [address]- 9209 Jul, 2013 [facility] [place] [facility] [address] [id number] [place] [address] 8170 Jun, [facility] [place] [facility] [address] [id number] [place] [address]- 1663 Jun, [facility] [place] [facility] [address] [id number] [place] [address]- 9242 Jun, [facility] [place] [facility] [address] [id number] [place] [address]- 2417 Jun, [facility] [place] [facility] [address] [id number] [place] [address]- 8693 Jun, [facility] [place] [facility] [address] [id number] [place] [address]- 8767 Jun, [facility] [place] [facility] [address] [id number] [place] [address]- 2918 Jun, [facility] [place] [facility] [address] [id number] [place] [address]- 7443 Jun, [facility] [place] [facility] [address] [id number] [place] [address]- 1025 Jun, [facility] [place] [facility] [address] [id number] [place] [address]- 2908 Jun, [facility] [place] [facility] [address] [id number] [place] [address]- 3241 Jun, [facility] [place] [facility] [address] [id number] [place] [address]- 9503 Jun, [facility] [place] [facility] [address] [id number] [place] [address]- 5949 Jun, [facility] [place] [facility] [address] [id number] [place] [address]- 5188 Jun, [facility] [place] [facility] [address] [id number] [place] [address]- 2520 Jun, [facility] [place] [facility] [address] [id number] [place] [address]- 8620 May, [facility] [place] [facility] [address] [id number] [place] [address]- 0906 May, [facility] [place] [facility] [address] [id number] [place] [address]- 1696 May, [facility] [place] [facility] [address] [id number] [place] [address]- 6282 May, [facility] [place] [facility] [address] [id number] [place] [address]- 5653 May, [facility] [place] [facility] [address] [id number] [place] [address]- 9165 May, [facility] [place] [facility] [address] [id number] [place] [address]- 5054 May, [facility] [place] [facility] [address] [id number] [place] [address]- 0231 May, [facility] [place] [facility] [address] [id number] [place] [address]- 6837 Apr, [facility] [place] [facility] [address] [id number] [place] [address]- 8523 Apr, [facility] [place] [facility] [address] [id number] [place] [address]- 9613 Apr, [facility] [place] [facility] [address] [id number] [place] [address]- 5792 Apr, [facility] [place] [facility] [address] [id number] [place] [address]- 4987 Apr, [facility] [place] [facility] [address] [id number] [place] [address]- 0081 Apr, [facility] [place] [facility] [address] [id number] [place] [address]- 2238 Apr, [facility] [place] [facility] [address] [id number] [place] [address]- 4441 Apr, [facility] [place] [facility] [address] [id number] [place] [address]- 4208 Apr, [facility] [place] [facility] [address] [id number] [place] [address]- 5796 Apr, [facility] [place] [facility] [address] [id number] [place] [address]- 4705 Apr, [facility] [place] [facility] [address] [id number] [place] [address]- 3460 Apr, [facility] [place] [facility] [address] [id number] [place] [address]- 2700 Apr, [facility] [place] [facility] [address] [id number] [place] [address]- 7475 Apr, [facility] [place] [facility] [address] [id number] [place] [address]- 0525 Apr, [facility] [place] [facility] [address] [id number] [place] [address]- 1397 Apr, [facility] [place] [facility] [address] [id number] [place] [address]- 8495 Apr, [facility] [place] [facility] [address] [id number] [place] [address]- 6419 Apr, [facility] [place] [facility] [address] [id number] [place] [address]- 6273 March, [facility] [place] [facility] [address] [id number] [place] [address]- 1247 March, [facility] [place] [facility] [address] [id number] [place] [address]- 4723 March, [facility] [place] [facility] [address] [id number] [place] [address]- 8103 March, [facility] [place] [facility] [address] [id number] [place] [address]- 0478 March, [facility] [place] [facility] [address] [id number] [place] [address]- 8583 March, [facility] [place] [facility] [address] [id number] [place] [address]- 9596 March, [facility] [place] [facility] [address] [id number] [place] [address]- 2739 March, [facility] [place] [facility] [address] [id number] [place] [address]- 0038 March, [facility] [place] [facility] [address] [id number] [place] [address]- 1018 Feb, [facility] [place] [facility] [address] [id number] [place] [address]- 6050 Feb, [facility] [address] [id number] [place] [address]- 3529 Feb, [facility] [place] [facility] [address] [id number] [place] [address]- 9685 Feb, [facility] [address] [id number] [place] [address]- 6095 Feb, [facility] [place] [facility] [address] [id number] [place] [address]- 9280 Feb, [facility] [address] [id number] [place] [address]- 5114 Feb, [facility] [address] [id number] [place] [address]- 6920 Feb, [facility] [place] [facility] [address] [id number] [place] [address]- 4539 Feb, [facility] [address] [id number] [place] [address]- 7567 Feb, [facility] [place] [facility] [address] [id number] [place] [address]- 7553 Feb, [facility] [address] [id number] [place] [address]- 3238 Feb, [facility] [place] [facility] [address] [id number] [place] [address]- 1181 Feb, [facility] [place] [facility] [address] [id number] [place] [address]- 9943 Jan, [facility] [place] [facility] [address] [id number] [place] [address]- 6943 Jan, [facility] [place] [facility] [address] [id number] [place] [address]- 7640 Jan, [facility] [place] [facility] [address] [id number] [place] [address]- 3645 Jan, [facility] [place] [facility] [address] [id number] [place] [address]- 5383 Jan, [facility] [place] [facility] [address] [id number] [place] [address]- 6836 Jan, [facility] [place] [facility] [address] [id number] [place] [address]- 4618 Jan, [facility] [place] [facility] [address] [id number] [place] [address]- 9698 Jan, [facility] [place] [facility] [address] [id number] [place] [address]- 9191 Dec, [facility] [place] [facility] [address] [id number] [place] [address]- 4792 Dec, [facility] [place] [facility] [address] [id number] [place] [address]- 1254 Dec, [facility] [place] [facility] [address] [id number] [place] [address]- 7557 Dec, [facility] [place] [facility] [address] [id number] [place] [address]- 5220 Dec, [facility] [place] [facility] [address] [id number] [place] [address]- 4317 Dec, [facility] [place] [facility] [address] [id number] [place] [address]- 2264 Dec, [facility] [place] [facility] [address] [id number] [place] [address]- 7757 Dec, [facility] [place] [facility] [address] [id number] [place] [address]- 6072 Dec, [facility] [place] [facility] [address] [id number] [place] [address]- 5368 Dec, [facility] [place] [facility] [address] [id number] [place] [address]- 9756 Nov, [facility] [place] [facility] [address] [id number] [place] [address]- 2817 Nov, [facility] [address] [id number] [place] [address]- 4039 Nov, [facility] [address] [id number] [place] [address]- 6428 Nov, [facility] [address] [id number] [place] [address]- 0019 Nov, [facility] [address] [id number] [place] [address]- 5943 Nov, [facility] [address] [id number] [place] [address]- 1862 Nov, [facility] [address] [id number] [place] [address]- 5941 Nov, [facility] [address] [id number] [place] [address]- 7815 Nov, [facility] [address] [id number] [place] [address]- 1390 Nov, [facility] [address] [id number] [place] [address]- 1821 Oct, [facility] [address] [id number] [place] [address]- 9926 19 Oct, 2013 [facility] [address] [id number] [place] [address]- 2507 18 Oct, 2013 [facility] [address] [id number] [place] [address]- 6573 18 Oct, 2013 [facility] [place] [facility] [address] [id number] [place] [address]- 8567 17 Oct, 2013 [facility] [address] [id number] [place] [address]- 9473 17 Oct, 2013 [facility] [address] [id number] [place] [address]- 2403 Oct, [facility] [place] [facility] [address] [id number] [place] [address]- 8044 16 Oct, 2013 [facility] [place] [facility] [address] [id number] [place] [address]- 2298 Oct, [facility] [place] [facility] [address] [id number] [place] [address]- 0097 Oct, [facility] [place] [facility] [address] [id number] [place] [address]- 2605 Oct, [facility] [place] [facility] [address] [id number] [place] [address]- 0503 Oct, [facility] [place] [facility] [address] [id number] [place] [address]- 0992 Oct, [facility] [place] [facility] [address] [id number] [place] [address]- 1430 Oct, [facility] [place] [facility] [address] [id number] [place] [address]- 7628 Sep, [facility] [place] [facility] [address] [id number] [place] [address]- 4140 Sep, [facility] [place] [facility] [address] [id number] [address]- 1859 Sep, [facility] [place] [facility] [address] [id number] [place] [address]- 0567 Sep, [facility] [place] [facility] [address] [id number] [address]- 7873 Sep, [facility] [place] [facility] [address] [id number] [place] [address]- 1014 Sep, [facility] [place] [facility] [address] [id number] [address]- 4904 Aug, [facility] [place] [facility] [address] [id number] [place] [address]- 9425 Aug, [facility] [place] [facility] [address] [id number] [place] [address]- 6549 17 Aug, 2012 [facility] [address] [id number] [place] [address]- 6162 17 Aug, 2012 [facility] [place] [facility] [address] [id number] [place] [address]- 8026 10 Aug, 2012 [facility] [address] [id number] [place] [address]- 0937 10 Aug, 2012 [facility] [place] [facility] [address] [id number] [place] [address]- 5329 07 Aug, 2012 [facility] [address] [id number] [place] [address]- 6502 02 Aug, 2012 [facility] [place] [facility] [address] [id number] [place] [address]- 0108 02 Aug, 2012 [facility] [address] [id number] [place] [address]- 4640 25 Sep, 2012 [facility] [place] [facility] [address] [id number] [place] [address]- 9525 23 Sep, 2012 [facility] [place] [facility] [address] [id number] [place] [address]- 4366 21 Sep, 2012 [facility] [place] [facility] [address] [id number] [place] [address]- 7505 20 Sep, 2012 [facility] [place] [facility] [address] [id number] [place] [address]- 4010 18 Sep, 2012 [facility] [place] [facility] [address] [id number] [address]- 2543 17 Sep, 2012 [facility] [place] [facility] [address] [id number] [place] [address]- 1230 16 Sep, 2012 [facility] [place] [facility] [address] [id number] [place] [address]- 2265 11 Sep, 2012 [facility] [place] [facility] [address] [id number] [address]- 9859 09 Sep, 2012 [facility] [place] [facility] [address] [id number] [place] [address]- 4315 09 Jul, 2012 [facility] [place] [facility] [address] [id number] [place] [address]- 1756 Jul, [facility] [place] [facility] [address] [id number] [place] [address] 2546 Jul, [facility] [place] [facility] [address] [id number] [place] [address]- 8906 Jun, [facility] [place] [facility] [address] [id number] [place] [address] 2547 Jun, [facility] [place] [facility] [address] [id number] [place] [address]- 5410 Jun, [facility] [place] [facility] [address] [id number] [place] [address]- 5154 Jun, [facility] [place] [facility] [address] [id number] [place] [address]- 2299 Jun, [facility] [place] [facility] [address] [id number] [place] [address]- 5357 Jun, [facility] [place] [facility] [address] [id number] [place] [address]- 0105 Jun, [facility] [place] [facility] [address] [id number] [place] [address]- 4001 Jun, [facility] [place] [facility] [address] [id number] [place] [address]- 6618 Jun, [facility] [place] [facility] [address] [id number] [place] [address]- 3019 May, [facility] [place] [facility] [address] [id number] [place] [address] 2548 May, [facility] [place] [facility] [address] [id number] [place] [address] 2549 May, [facility] [place] [facility] [address] [id number] [place] [address]- 0799 May, [facility] [place] [facility] [address] [id number] [place] [address]- 7149 May, [facility] [place] [facility] [address] [id number] [place] [address]- 0446 May, [facility] [place] [facility] [address] [id number] [place] [address]- 2003 May, [facility] [place] [facility] [address] [id number] [place] [address]- 5496 March, [facility] [place] [facility] [address] [id number] [place] [address]- 8567 March, [facility] [place] [facility] [address] [id number] [place] [address]- 3867 March, [facility] [place] [facility] [address] [id number] [place] [address]- 9283 Dec, [facility] [place] [facility] [address] [id number] [place] [address]- 4390 Nov, [facility] [place] [facility] [address] [id number] [place] [address]- 2457 Aug, [facility] [place] [facility] [address] [id number] [place] [address]- 2432 Aug, [facility] [place] [facility] [address] [id number] [place] [address]- 1741 Jun, [facility] [place] [facility] [address] [id number] [place] [address]- 3289 Jun, [facility] [place] [facility] [address] [id number] [place] [address]- 8330 Jun, [facility] [place] [facility] [address] [id number] [place] [address]- 1169 Jun, [facility] [place] [facility] [address] [id number] [place] [address]- 3738 May, [facility] [place] [facility] [address] [id number] [place] [address]- 3541 May, [facility] [address] [id number] [place] [address]- 8075 May, [facility] [address] [id number] [place] [address]- 5646 May, [facility] [address] [id number] [place] [address]- 7110 May, [facility] [address] [id number] [place] [address]- 0355 May, [facility] [address] [id number] [place] [address]- 8655 May, [facility] [address] [id number] [place] [address]- 1263 Apr, [facility] [address] [id number] [place] [address]- 1479 Apr, [facility] [address] [id number] [place] [address]- 5962 Apr, [facility] [address] [id number] [place] [address]- 4908 Apr, [facility] [address] [id number] [place] [address]- 4979 March, [facility] [address] [id number] [place] [address]- 6149 March, [facility] [address] [id number] [place] [address]- 7704 March, [facility] [place] [facility] [address] [id number] [place] [address]- 4445 March, [facility] [place] [facility] [address] [id number] [place] [address]- 4267 March, [facility] [address] [id number] [place] [address]- 2694 March, [facility] [address] [id number] [place] [address]- 8462 March, [facility] [address] [id number] [place] [address]- 1886 March, [facility] [place] [facility] [address] [id number] [place] [address]- 1776 March, [facility] [place] [facility] [address] [id number] [place] [address]- 1380 Feb, [facility] [address] [id number] [place] [address]- 9779 Feb, [facility] [place] [facility] [address] [id number] [place] [address]- 1297 Jan, [facility] [address] [id number] [place] [address]- 6234 Jan, [facility] [address] [id number] [place] [address] 16 Jan, 2012 [facility] [address] [id number] [place] [address] Jan, [facility] [address] [id number] [place] [address] Dec, [facility] [place] [facility] [address] [id number] [place] [address] 16 Dec, 2011 [facility] [place] [facility] [address] [id number] [place] [address] 15 Dec, 2011 [facility] [place] [facility] [address] [id number] [place] [address] Nov, [facility] [place] [facility] [address] [id number] [place] [address] Oct, [facility] [place] [facility] [address] [id number] [place] [address] Oct, [facility] [place] [facility] [address] [id number] [place] [address] 15 Oct, 2011 [facility] [place] [facility] [address] [id number] [place] [address] 14 Oct, 2011 [facility] [place] [facility] [address] [id number] [place] [address] 14 Oct, 2011 [facility] [place] [facility] [address] [id number] [place] [address] 12 Oct, 2011 [facility] [place] [facility] [address] [id number] [place] [address] 09 Oct, 2011 [facility] [place] [facility] [address] [id number] [place] [address] Oct, [facility] [place] [facility] [address] [id number] [place] [address] 22 Sep, 2011 [facility] [place] [facility] [address] [id number] [place] [address] 17 Sep, 2011 [facility] [place] [facility] [address] [id number] [place] [address] 14 Sep, 2011 [facility] [place] [facility] [address] [id number] [place] [address] Sep, [facility] [place] [facility] [address] [facility] [id number] [place] [address] 10 Sep, 2011 [facility] [place] [facility] [address] [id number] [place] [address] 09 Sep, 2011 [facility] [place] [facility] [address] [id number] [address] 08 Sep, 2011 [facility] [place] [facility] [address] [id number] [place] [address] 03 Sep, 2011 [facility] [place] [facility] [address] [id number] [place] [address] Sep, [facility] [place] [facility] [address] [id number] [place] [address] 24 Aug, 2011 [facility] [place] [facility] [address] [facility] [id number] [place] [address] Jul, [facility] [address] [facility] [id number] [place] [address] Oct, [facility] [address] [facility] [id number] [place] [address] Oct, [facility] [address] [facility] [id number] [place] [address] Oct, IMMUNIZATIONS No Known Immunizations SOCIAL HISTORY Never Assessed REASON FOR VISIT Controlled Med Refill 08/01/2017 PLAN OF CARE VITAL SIGNS MEDICATIONS Medication [...]
--- OUTSIDE RECORDS SUMMARY | 2018-04-25 06:43 | XMS REPORT ---
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 22413124 Problem Proteinuria, unspecified R80.9 Active 51406407 Assessment Hyperkalemia, diminished renal excretion E87.5 Jul, Active 19438755 Problem Type 1 diabetes mellitus with hypoglycemia without coma E10.649 Active 81121874 Problem Type 1 diabetes mellitus with hyperglycemia E10.65 Active 23269913 Problem Low back pain M54.5 Active 620144887 Problem Type 1 diabetes mellitus without complications E10.9 Active 63690941 Problem Restless legs syndrome G25.81 Active 683987893 Problem Irritable bowel K58.9 Active 35859140 Problem Anemia, unspecified D64.9 Active 996452391 Problem Migraine G43.909 Active 10265717 ALLERGIES Unknown Allergies SOCIAL HISTORY No smoking Hx information available PLAN OF CARE VITAL SIGNS MEDICATIONS Medication Instructions Dosage Frequency Start Date End Date Duration Status Sodium Polystyrene Sulfonate 15 GM/60ML Orally 2 times a day 60 ml 12h Jul, 30 day(s) Active RESULTS No Results PROCEDURES No Known procedures IMMUNIZATIONS No Known Immunizations
--- OUTSIDE RECORDS SUMMARY | 2018-04-25 06:43 | XMS REPORT ---
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 42538855 Problem Proteinuria, unspecified R80.9 Active 35930415 Assessment Hyperkalemia, diminished renal excretion E87.5 12 Jul, 2016 Active 33539838 Problem Type 1 diabetes mellitus with hypoglycemia without coma E10.649 Active 50201641 Problem Type 1 diabetes mellitus with hyperglycemia E10.65 Active 97406871 Problem Low back pain M54.5 Active 698901766 Problem Type 1 diabetes mellitus without complications E10.9 Active 65380707 Problem Restless legs syndrome G25.81 Active 435340556 Problem Irritable bowel K58.9 Active 37563801 Problem Anemia, unspecified D64.9 Active 112115444 Problem Migraine G43.909 Active 06150242 ALLERGIES Unknown Allergies SOCIAL HISTORY No smoking Hx information available PLAN OF CARE VITAL SIGNS MEDICATIONS Unknown Medications RESULTS Name Result Date Reference Range [facility] 2016-08-06 Glucose, Serum 219 65-99 BUN 19 6-20 Creatinine, Serum 1.54 0.57-1.00 eGFR If NonAfricn Am 43 >59 eGFR If Africn Am 50 >59 BUN/Creatinine Ratio 12 8-20 Sodium, Serum 140 134-144 Potassium, Serum 4.7 3.5-5.2 Chloride, Serum 101 97-108 Carbon Dioxide, Total 25 18-29 Calcium, Serum 8.1 8.7-10.2 Protein, Total, Serum 6.3 6.0-8.5 Albumin, Serum 3.5 3.5-5.5 Globulin, Total 2.8 1.5-4.5 A/G Ratio 1.3 1.1-2.5 Bilirubin, Total 0.2 0.0-1.2 Alkaline Phosphatase, S 69 39-117 AST (SGOT) 17 0-40 ALT (SGPT) 10 0-32 PROCEDURES Procedure Date Ordered Related Diagnosis Body [facility] Aug 06, 2016 VENIPUNCT, ROUTINE* Aug 06, 2016 IMMUNIZATIONS No Known Immunizations
--- OUTSIDE RECORDS SUMMARY | 2018-04-25 06:43 | XMS REPORT ---
Author Author ALAN CARABALLO [facility] eClinicalWorks Address Unknown Phone Unavailable Care Team Providers Care Operation Specialist Name Role Phone ALAN ACRABALLO CP Unavailable Allergies No Known Allergies Problems [...] Start Date End Date Status Dosage NovoLog [facility] [id number] UNIT/ML per insulin pump April 22, 2014 as directed Results No Known Results Summary Purpose eClinicalWorks Submission
--- OUTSIDE RECORDS SUMMARY | 2018-04-25 06:43 | XMS REPORT ---
Author Author ALAN CARABALLO [facility] Address [address] [place] [address] Care Team Providers Care Steam Shovel Operator Name Role Phone ALAN CARABALLO Unavailable PROBLEMS Type Condition ICD9-CM Code FEZ09-BE Code Onset Dates Condition Status SNOMED Code Problem Irritable bowel K58.9 Active 28733418 Problem Restless legs syndrome G25.81 Active 974292615 Problem Anemia, unspecified D64.9 Active 091492308 Problem Dysthymia F34.1 Active 20982436 Problem Chronic kidney disease, stage 4 (severe) N18.4 Active 455236688 Problem Low back pain M54.5 Active 477870332 Problem Type 1 diabetes mellitus without complications E10.9 Active 804620434 Problem Migraine without aura and without status migrainosus, not intractable G43.009 Active 722646087 Problem Other insomnia G47.09 Active 975418031 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
--- OUTSIDE RECORDS SUMMARY | 2018-04-25 06:43 | XMS REPORT ---
Author Author ALAN CARABALLO [facility] [place] eClinicalWorks Address Unknown Phone Unavailable Care Team Providers Care Golf Instructor Name Role Phone ALAN CARABALLO CP Unavailable [...] Start Date End Date Status Dosage NovoLog [facility] [address]-14 100 UNIT/ML per insulin pump April 22, 2014 as directed Results No Known Results Summary Purpose eClinicalWorks Submission
--- OUTSIDE RECORDS SUMMARY | 2018-04-25 06:43 | XMS REPORT ---
Author Author ALAN CARABALLO [facility] Address [address] [place] [address] Care Team Providers Care Gas Engineer Name Role Phone ALAN CARABALLO Unavailable PROBLEMS Type Condition ICD9-CM Code LOT74-IF Code Onset Dates Condition Status SNOMED Code Problem Irritable bowel K58.9 Active 02424842 Problem Restless legs syndrome G25.81 Active 734837016 Problem Anemia, unspecified D64.9 Active 557986128 Problem Dysthymia F34.1 Active 19725078 Problem Chronic kidney disease, stage 4 (severe) N18.4 Active 335582454 Problem Low back pain M54.5 Active 739103383 Problem Type 1 diabetes mellitus without complications E10.9 Active 560344719 Problem Migraine without aura and without status migrainosus, not intractable G43.009 Active 877642668 Problem Other insomnia G47.09 Active 480095485 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 57617429 Problem Proteinuria, unspecified R80.9 Active 22559561 Problem Type 1 diabetes mellitus with hyperglycemia E10.65 Active 26023368 Problem Chronic kidney disease, unspecified N18.9 Active 550013886 Problem Type 1 diabetes mellitus with hypoglycemia without coma E10.649 Active 09818857 Problem Migraine G43.909 Active 16260974 ALLERGIES No Information SOCIAL HISTORY Never Assessed PLAN OF CARE VITAL SIGNS MEDICATIONS Unknown Medications RESULTS No Results PROCEDURES No Known procedures IMMUNIZATIONS No Known Immunizations MEDICAL (GENERAL) HISTORY Type Description Date Medical History Diabetic Surgical History Bilat tubal ligation Hospitalization History Diabetic multiple hospitalizations
--- OUTSIDE RECORDS SUMMARY | 2018-04-25 06:43 | XMS REPORT ---
Author Author ALAN CARABALLO [facility] eClinicalWorks Address Unknown Phone Unavailable Care Team Providers Care Steam Boiler Fireman Name Role Phone ALAN CARABALLO CP Unavailable [...] Instructions Start Date End Date Status Dosage Ehrmjtdvuk-NMKI-Xidd-Cod [facility] [address]-45 51-254-22-30 MG TAKE ONE CAPSULE BY MOUTH EVERY 4 HOURS NEEDED (NOT TO EXCEED 6 CAPSULES/24 HOURS) Results No Known Results Summary Purpose eClinicalWorks Submission
--- OUTSIDE RECORDS SUMMARY | 2018-04-25 06:43 | XMS REPORT ---
Author Author ALAN CARABALLO [facility] eClinicalWorks Address Unknown Phone Unavailable Care Team Providers Care Experimental Mechanic Electrical Name Role Phone ALAN CARABALLO CP Unavailable Allergies No Known Allergies Problems Problem Type Condition Code Onset Dates Condition Status Problem Type 1 diabetes mellitus with hyperglycemia E10.65 Active Problem Proteinuria, unspecified R80.9 Active Problem Chronic kidney disease, unspecified N18.9 Active Assessment Type 1 diabetes mellitus with hyperglycemia E10.65 [...] Instructions Start Date End Date Status Dosage Celexa [facility] [id number] 10 MG 1 tablet by Oral route 1 time per day Requip [facility] [address]-02 0.25 MG TAKE ONE TABLET BY MOUTH ONCE DAILY GlucaGen HypoKit [facility] [address]-30 1 MG Injection PRN Jul 25, 2016 Inject 1 mg Aranesp (Alb Free) SureClick ND 0 not defined Vitamin D (Cholecalciferol) [facility] [address] 400 UNIT Orally Once a day 1 capsule NovoLog [facility] [address]-60 100 UNIT/ML Subcutaneous per insulin pump March as directed Cqqpwjokzh-FWQY-Jndz-Cod [facility] [address]-66 44-088-54-30 MG TAKE ONE CAPSULE BY MOUTH EVERY 4 HOURS NEEDED (NOT TO EXCEED 6 CAPSULES/24 HOURS) Fioricet with Codeine NDC 0 01-336-41-30 mg February 11, 2015 take 1 capsule by Oral route as needed not to exceed 6 capsules per 24hrs every 4 hours Bentyl [facility] [address]-52 20 MG Orally Four times a day PRN 1 tablet Ferrous Sulfate [facility] [address]-71 65 mg Orally Once a day Dec 01, 2014 by Oral route 325mg QD by Dr Styles fludrocortisone ND 0 0.1 mg Dec 02, 2013 take 1/2 tablet by Oral route 1 time per day Geoff Contour Next Test [facility] [address]-61 - 10 times daily (Has insulin pump) test blood sugar Sodium Polystyrene Sulfonate [facility] [address]-04 15 GM/60ML Orally 2 times a day Aug 03, 2016 60 ml Tramadol HCl [facility] [address]-87 50 MG Orally 1 tablet in the morning and 2 tablets in the evening March 23, 2015 1 tablet Xpg-Jnmxgbkh-Snig-FA [facility] 0 65-1 MG Orally not defined Results No Known Results Summary Purpose eClinicalWorks Submission
--- OUTSIDE RECORDS SUMMARY | 2018-04-25 06:43 | XMS REPORT ---
Author Author ALAN CARABALLO [facility] Address [address] [place] [address] Care Team Providers Care Malt House Kiln Operator Name Role Phone ALAN CARABALLO Unavailable PROBLEMS Type Condition ICD9-CM Code DUY20-OV Code Onset Dates Condition Status SNOMED Code Problem Restless legs syndrome G25.81 Active 368516366 Problem Anemia, unspecified D64.9 Active 322943821 Problem Migraine G43.909 Active 02963805 Problem Dysthymia F34.1 Active 87636099 Problem Chronic kidney disease, stage 4 (severe) N18.4 Active 398441876 Problem Low back pain M54.5 Active 247443107 Problem Type 1 diabetes mellitus without complications E10.9 Active 838643444 Problem Migraine without aura and without status migrainosus, not intractable G43.009 Active 221698033 Problem Other insomnia G47.09 Active 861711026 Problem Chronic kidney disease, unspecified N18.9 Active 564156592 Problem Proteinuria, unspecified R80.9 Active 42120339 Problem Type 1 diabetes mellitus with hypoglycemia without coma E10.649 Active 35378437 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
--- OUTSIDE RECORDS SUMMARY | 2018-04-25 06:43 | XMS REPORT ---
Author Author ALAN CARABALLO [facility] eClinicalWorks Address Unknown Phone Unavailable Care Team Providers Care Heat Engineering Teacher Name Role Phone ALAN CARABALLO CP Unavailable Allergies No Known Allergies Problems Problem Type Condition Code Onset Dates Condition Status Problem Type 1 diabetes mellitus with hyperglycemia E10.65 Active Problem Proteinuria, unspecified R80.9 Active Problem Chronic kidney disease, unspecified N18.9 Active Assessment Type 1 diabetes mellitus without [...] Start Date End Date Status Dosage NovoLog [facility] [address]-13 100 UNIT/ML Subcutaneous per insulin pump March as directed Results No Known Results Summary Purpose eClinicalWorks Submission
--- OUTSIDE RECORDS SUMMARY | 2018-04-25 06:44 | XMS REPORT ---
Author Author ALAN CARABALLO [facility] eClinicalWorks Address Unknown Phone Unavailable Care Team Providers Care Chiseler Head Name Role Phone ALAN CARABALLO CP Unavailable [...] Date End Date Status Dosage NovoLog [facility] [address]-22 100 UNIT/ML per insulin pump April 22, 2014 as directed Results No Known Results Summary Purpose eClinicalWorks Submission
--- OUTSIDE RECORDS SUMMARY | 2018-04-25 06:44 | XMS REPORT ---
Author Author ALAN CARABALLO [facility] eClinicalWorks Address Unknown Phone Unavailable Care Team Providers Care Library Customer Service Clerk Name Role Phone ALAN CARABALLO CP Unavailable [...] Date End Date Status Dosage Tramadol HCl [facility] [address]-06 50 MG Orally 1 tablet in the morning and 2 tablets in the evening March 23, 2015 1 tablet Results No Known Results Summary Purpose eClinicalWorks Submission
--- OUTSIDE RECORDS SUMMARY | 2018-04-25 06:44 | XMS REPORT ---
Author Author SAMANTHA DEE [facility] eClinicalWorks Address Unknown Phone Unavailable Care Team Providers Care Microbiological Lab Technician Name Role Phone SAMANTHA DEE CP Unavailable Allergies No Known Allergies Problems Problem Type Condition Code Onset Dates Condition Status Problem Type 1 diabetes mellitus with hyperglycemia E10.65 Active Problem Irritable bowel syndrome 564.1 Active Problem Type 1 diabetes mellitus with ketoacidosis without coma E10.10 Active Assessment Trochanteric bursitis, right hip M70.61 Active Problem Type 1 diabetes mellitus with [...] Problem Irregular menstrual cycle 626.4 Active Medications No Known Medications Procedures Procedure Coding System Code Date Office Visit, Est Pt., Level 2 CPT-4 80739 Dec 01, 2015 [facility] VISIT ESTABLISHED PATIENT CPT-4 G0467 Dec 01, 2015 Vital Signs Date/Time: Dec 01, 2015 Blood Pressure Diastolic 72 mmHg Blood Pressure Systolic 110 mmHg Height 62 in Results No Known Results Summary Purpose eClinicalWorks Submission
--- OUTSIDE RECORDS SUMMARY | 2018-04-25 06:44 | XMS REPORT ---
Author Author ALAN CARABALLO [facility] Address [address] [place] [address] Care Team Providers Care Allergy Physician Name Role Phone ALAN CARABALLO Unavailable PROBLEMS Type Condition ICD9-CM Code LCN79-GY Code Onset Dates Condition Status SNOMED Code Problem Irritable bowel K58.9 Active 56849773 Problem Restless legs syndrome G25.81 Active 090207153 Problem Anemia, unspecified D64.9 Active 993838644 Problem Dysthymia F34.1 Active 04312688 Problem Chronic kidney disease, stage 4 (severe) N18.4 Active 068547596 Problem Low back pain M54.5 Active 380180609 Problem Type 1 diabetes mellitus without complications E10.9 Active 577411418 Problem Migraine without aura and without status migrainosus, not intractable G43.009 Active 253484186 Problem Other insomnia G47.09 Active 271562462 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 34981704 Problem Proteinuria, unspecified R80.9 Active 55191501 Problem Type 1 diabetes mellitus with hyperglycemia E10.65 Active 20981955 Problem Chronic kidney disease, unspecified N18.9 Active 000995616 Problem Type 1 diabetes mellitus with hypoglycemia without coma E10.649 Active 84846152 Problem Migraine G43.909 Active 84694187 ALLERGIES Substance Reaction Event Type Date Status Lisinopril Unknown Drug Allergy Jan, Active Gabapentin Unknown Drug Allergy Jan, Active Cozaar 25 Mg Tablet Unknown Non Drug Allergy Jan, Active Niacin 500 Mg Tablet Unknown Non Drug Allergy Jan, Active SOCIAL HISTORY Never Assessed PLAN OF CARE Activity Details Follow Up 4 Weeks Reason:insomnia VITAL SIGNS Height 62 in 2017-02-11 Weight 137.1 lbs 2017-02-11 Temperature 98.4 degrees Fahrenheit 2017-02-11 Heart Rate 74 bpm 2017-02-11 Respiratory Rate 18 2017-02-11 BMI 25.07 kg/m2 2017-02-11 Blood pressure systolic 148 mmHg 2017-02-11 Blood pressure diastolic 80 mmHg 2017-02-11 MEDICATIONS Medication Instructions Dosage Frequency Start Date End Date Duration Status Pso-Vsypolvf-Mkhk-FA 65-1 MG Active Vitamin D (Cholecalciferol) 400 UNIT Orally Once a day 1 capsule 24h Active fludrocortisone 0.1 mg take 1/2 tablet by Oral route 1 time per day Nov, Active Aranesp (Alb Free) SureClick Active Ferrous Sulfate 65 mg Orally Once a day by Oral route 325mg QD by Dr Styles 24h Nov, Active Bentyl 20 MG Orally Four times a day PRN 1 tablet 30 Active Tramadol HCl 50 MG Orally 1 tablet in the morning and 2 tablets in the evening 1 tablet Feb, 28 days Active GlucaGen HypoKit 1 MG Injection PRN Inject 1 mg Jun, 14 days Active Requip 0.25 MG TAKE ONE TABLET BY MOUTH ONCE DAILY 90 Active Topamax 50 mg Orally Twice a day 1 tablet 12h Jan, 30 day(s) Active Zofran ODT 4 MG Orally every 8 hrs 1 tablet on the tongue and allow to dissolve 8h Nov, 07 days Active Geoff Contour Next Test - test blood sugar 90 days Active Celexa 10 MG 1 tablet by Oral route 1 time per day 90 Active NovoLog 100 UNIT/ML Subcutaneous per insulin pump as directed March, Active RESULTS Name Result Date Reference Range A1C (IN HOUSE) 2017-02-11 A1C IN HOUSE 7.1 4.3 - 5.6 % Previous A1c 6.3 Lot [id number] Exp date 11/2018 PROCEDURES Procedure Date Ordered Result Body Site [facility] VISIT ESTABLISHED PATIENT February 11, 2017 GLYCATED HEMOGLOBIN TEST February 11, 2017 IMMUNIZATIONS No Known Immunizations MEDICAL (GENERAL) HISTORY Type Description Date Medical History Diabetic Surgical History Bilat tubal ligation Hospitalization History Diabetic multiple hospitalizations
[2018-04-25 06:45] VITALS: BP 167/96
[2018-04-25] MEDS ORDERED: TIMOLOL MALEATE 0.5% 5 ML (TIMOPTIC) BTL OU PRN (06:45)
[2018-04-25] MEDS ORDERED: VANCOMYCIN/BSS (COMPOUNDED) 10 MG/ML SYR OP ONE (06:45)
[2018-04-25] MEDS ORDERED: LIDOCAINE PF 1% 2 ML AMP IR PRN (06:45)
[2018-04-25] MEDS ORDERED: EPINEPHrine INJECTION 1 MG/ML AMP INJ ONE (06:45)
[2018-04-25] MEDS ORDERED: POVIDONE (BETADINE) OPHTH SOLN 5% 30 ML OP ONE (06:45)
--- OUTSIDE RECORDS SUMMARY | 2018-04-25 06:45 | XMS REPORT ---
Author Author ALAN CARABALLO [facility] eClinicalWorks Address Unknown Phone Unavailable Care Team Providers Care Vp Strategic Planning Name Role Phone ALAN CARABALLO CP Unavailable [...] Date End Date Status Dosage Tramadol HCl [facility] [address]-89 50 MG Orally 1 tablet QAM/2 tabs QPM March 23, 2015 1 tablet Results No Known Results Summary Purpose eClinicalWorks Submission
--- OUTSIDE RECORDS SUMMARY | 2018-04-25 06:45 | XMS REPORT ---
Author Author ALAN CARABALLO [facility] Address [address] [place] [address] Care Team Providers Care [employer] Director Name Role Phone ALAN CARABALLO Unavailable PROBLEMS Type Condition ICD9-CM Code PGI11-UF Code Onset Dates Condition Status SNOMED Code Problem Type 1 diabetes mellitus without complications E10.9 Active 052431970 Problem Other insomnia G47.09 Active 791315909 Problem Low back pain M54.5 Active 938015162 Problem Migraine with aura and without status migrainosus, not intractable G43.109 Active 4280890 Problem Menorrhagia with regular cycle N92.0 Active 587529273 Problem Chronic kidney disease, stage 4 (severe) N18.4 Active 057684766 Problem Migraine without aura and without status migrainosus, not intractable G43.009 Active 316418326 Problem Autonomic neuropathy G90.9 Active 851673606 Problem Dysthymia F34.1 Active 58706650 Problem Type 1 diabetes mellitus with hypoglycemia without coma E10.649 Active 17871377 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 16335863 Problem Type 1 diabetes mellitus with hyperglycemia E10.65 Active 67998574 Problem Migraine G43.909 Active 72252852 Problem Irritable bowel K58.9 Active 50490962 Problem Proteinuria, unspecified R80.9 Active 48153575 Problem Anemia, unspecified D64.9 Active 054471545 Problem Chronic kidney disease, unspecified N18.9 Active 196585760 Problem Restless legs syndrome G25.81 Active 129368223 ALLERGIES No Information ENCOUNTERS Encounter Location Date Diagnosis [facility] [id number], [place] [address] March, [facility] [address] [facility] [id number] [address] March, Low back pain M54.5 [facility] [id number] [place] [address] 17961- 1347 March, [place] [id number] [place] [address] 11846- 1187 Feb, [facility] [id number] [place] [address] 68979- 7472 Feb, Low back pain M54.5 [place] [id number] [place] [address] 55087- 9567 Jan, Restless legs syndrome G25.81 [place] [id number] [place] [address] 12339- 4355 Jan, Low back pain M54.5 [place] [id number] [place] [address] 59999- 0177 Jan, [place] [id number] [place] [address] 20455- 0354 Jan, Type 1 diabetes mellitus without complications E10.9 ; Low back pain M54.5 ; Cough R05 ; Diarrhea, unspecified type R19.7 ; Migraine without aura and without status migrainosus, not intractable G43.009 and Uses control Z30.9 [place] [id number] [place] [address] 26868- 3365 Dec, Low back pain M54.5 [place] [id number] [place] [address] 80046- 6297 Dec, [place] [id number] [place] [address] 33626- 3544 Nov, Well woman exam Z01.419 ; Menorrhagia with regular cycle N92.0 ; Vaginal dryness N89.8 and Migraine with aura and without status migrainosus, not intractable G43.109 [place] [id number] [place] [address] 95405- 3298 Nov, [place] [id number] [place] [address] 06505- 3374 Nov, Low back pain M54.5 [facility] [id number] [place] [address] 37788- 9774 Oct, Low back pain M54.5 [facility] [id number] [place] [address] 37780- 8039 Oct, Migraine without aura and without status migrainosus, not intractable G43.009 [facility] [address] 23283- 4402 Sep, Low back pain M54.5 [facility] [id number] [place] [address] 44400- 8237 Sep, [facility] [address] 61913- 4886 Sep, Migraine without aura and without status migrainosus, not intractable G43.009 [facility] [id number] [place] [address] 62572- 1330 Sep, Type 1 diabetes mellitus with hypoglycemia without coma E10.649 ; Anemia D64.9 ; Migraine without aura and without status migrainosus, not intractable G43.009 ; Chronic kidney disease, unspecified N18.9 ; Autonomic neuropathy G90.9 and Postural hypotension I95.1 [facility] [id number] [place] [address] 65077- 3616 Sep, Low back pain M54.5 [facility] [id number] [place] [address] 97048- 1660 Aug, Low back pain M54.5 [facility] [id number] [place] [address] 65777- 4580 14 Jul, 2017 [facility] [address] 12717- 0923 Jul, Low back pain M54.5 [facility] [id number] [place] [address] 89709- 2489 Jun, [facility] [id number] [place] [address] 31468- 9567 Jun, Low back pain M54.5 [facility] [id number] [place] [address] 51961- 7130 Jun, Migraine without aura and without status migrainosus, not intractable G43.009 [facility] [id number] [place] [address] 05710- 5933 Jun, Type 1 diabetes mellitus with hyperglycemia E10.65 ; Dysthymia F34.1 and Migraine without aura and without status migrainosus, not intractable G43.009 [facility] [id number] [place] [address] 89654- 2144 Jun, [facility] [id number] [place] [address] 66356- 6260 May, Type 1 diabetes mellitus with hyperglycemia E10.65 [facility] [id number] [place] [address] 79434- 0701 May, Low back pain M54.5 [facility] [id number] [place] [address] 85764- 0723 May, Type 1 diabetes mellitus with hyperglycemia E10.65 [facility] [id number] [place] [address] 01237- 0588 Apr, [facility] [id number] [place] [address] 26178- 5780 Apr, Chronic kidney disease, stage 4 (severe) N18.4 [facility] [id number] [place] [address] 20379- 6416 Apr, Low back pain M54.5 [facility] [id number] [place] [address] 59170- 2893 March, [facility] [id number] [place] [address] 29255- 5597 March, Low back pain M54.5 [facility] [address], [place] [address]- 0653 Feb, [facility] [id number] [place] [address] 77875- 8283 Feb, [facility] [address], [place] [address]- 5895 Feb, Low back pain M54.5 [facility] [id number] [place] [address] 16195- 5403 Feb, Low back pain M54.5 [facility] [id number] [place] [address] 91385- 0276 Feb, Migraine without aura and without status migrainosus, not intractable G43.009 [facility] [id number] [place] [address] 04629- 1254 Feb, [facility] [id number] [place] [address] 19954- 0097 Jan, Low back pain M54.5 [facility] [address], [place] [address]- 2604 Jan, Type 1 diabetes mellitus without complications E10.9 ; Anemia D64.9 ; Chronic kidney disease, unspecified N18.9 ; Migraine without aura and without status migrainosus, not intractable G43.009 and Other insomnia G47.09 [facility] [address], [place] [address]- 9304 Jan, [facility] [address], [place] [address]- 9718 Dec, Low back pain M54.5 [facility] [id number] [place] [address] 96467- 1309 Dec, [facility] [address], [place] [address]- 3921 Dec, [facility] [id number] [place] [address] 76392- 3629 Dec, Shortness of breath R06.02 ; Type 1 diabetes mellitus without complications E10.9 and Leg swelling M79.89 [facility] [id number] [place] [address] 81673- 2576 Nov, Low back pain M54.5 [facility] [id number] [place] [address] 83760- 5858 Nov, Viral syndrome B34.9 [facility] [address] 95152- 4621 Oct, Low back pain M54.5 [facility] [address] 25617- 6511 Oct, [facility] [id number] [place] [address] 20899- 0818 Oct, Low back pain M54.5 [facility] [id number] [place] [address] 45855- 5352 Sep, [facility] [id number] [place] [address] 19465- 7057 Sep, Fatigue, unspecified type R53.83 ; Type 1 diabetes mellitus without complications E10.9 and Anemia D64.9 [facility] [id number] [place] [address] 75738- 8366 Sep, Low back pain M54.5 [facility] [id number] [place] [address] 99169- 7582 Sep, Type 1 diabetes mellitus with hyperglycemia E10.65 [facility] [id number] [place] [address] 77369- 5422 Aug, Type 1 diabetes mellitus without complications E10.9 [facility] [id number] [place] [address] 23301- 2770 Aug, [facility] [id number] [place] [address] 20655- 6415 Aug, [place] [id number] [place] [address] 57289- 5126 26 Jul, 2016 [facility] [address] 67563- 2878 14 Jul, 2016 Low back pain M54.5 [facility] [id number] [place] [address] 25088- 1930 12 Jul, 2016 Hyperkalemia, diminished renal excretion E87.5 [facility] [address] 29784- 8932 09 Jul, 2016 Hyperkalemia, diminished renal excretion E87.5 [facility] [address] 14878- 1945 Jun, [facility] [address] 15559- 9715 Jun, Low back pain M54.5 [facility] [address] 19150- 3284 Jun, Anemia D64.9 ; Autonomic neuropathy G90.9 and Postural hypotension I95.1 [facility] [address] 06346- 4337 Jun, [facility] [id number] [place] [address] 17366- 3459 May, Type 1 diabetes mellitus with complications E10.8 and Anemia D64.9 [facility] [id number] [place] [address] 89010- 1832 May, Low back pain M54.5 [facility] [id number] [place] [address] 87129- 5279 Apr, [facility] [address] 92876- 6989 Apr, Low back pain M54.5 [facility] [id number] [place] [address] 67487- 0147 Apr, [facility] [address], [place] [address]- 5153 Apr, [facility] [id number] [place] [address] 65919- 1458 March, Low back pain M54.5 and Other chronic pain G89.29 [facility] [id number] [place] [address] 86106- 4572 March, Type 1 diabetes mellitus without complications E10.9 [facility] [id number] [place] [address] 16120- 3650 March, [facility] [id number] [place] [address] 32046- 5972 March, [facility] [id number] [place] [address] 18548- 6544 Feb, [facility] [id number] [place] [address] 07903- 6867 Feb, Type 1 diabetes mellitus without complications E10.9 [facility] [id number] [place] [address] 87043- 2317 Feb, Trochanteric bursitis, right hip M70.61 [facility] [id number] [place] [address] 14386- 1985 Jan, [facility] [id number] [place] [address] 54566- 5256 Jan, [facility] [id number] [place] [address] 83632- 2161 Dec, Type 1 diabetes mellitus with complications E10.8 [facility] [id number] [place] [address] 57968- 9858 Dec, [facility] [id number] [place] [address] 48579- 9345 Dec, Anemia D64.9 ; Autonomic neuropathy G90.9 and Postural hypotension I95.1 [facility] [id number] [place] [address] 82137- 4709 Dec, [facility] [id number] [place] [address] 75040- 6855 Nov, Sore throat J02.9 [facility] [id number] [place] [address] 72804- 5515 Nov, Type 1 diabetes mellitus with complications E10.8 [place] [id number] [place] [address] 73843- 9655 Nov, 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 ; Proteinuria, unspecified R80.9 and Chronic kidney disease, unspecified N18.9 [place] [id number] [place] [address] 85513- 3156 Nov, [place] [id number] [place] [address] 97259- 3532 Nov, Trochanteric bursitis, right hip M70.61 [place] [id number] [place] [address] 78571- 3003 Nov, [place] [id number] [place] [address] 05826- 8318 Oct, [facility] [id number] [place] [address] 91164- 6356 Oct, [place] [id number] [place] [address] 54840- 8193 Oct, [facility] [id number] [place] [address] 71169- 6997 Sep, [facility] [id number] [place] [address] 59359- 2138 Sep, [facility] [id number] [place] [address] 88621- 6766 Sep, Type 2 diabetes mellitus with complication E11.8 and Right hip pain M25.551 [facility] [id number] [place] [address] 79254- 4071 Sep, [facility] [id number] [place] [address] 70707- 6003 Aug, [facility] [id number] [place] [address] 66160- 2039 Aug, [facility] [id number] [place] [address] 13324- 7337 Aug, [facility] [id number] [place] [address] 00392- 5151 Aug, Type 1 diabetes mellitus without complications E10.9 [facility] [id number] [place] [address] 43557- 2570 16 Jul, 2015 [facility] [id number] [place] [address] 94974- 3788 15 Jul, 2015 [facility] [id number] [place] [address] 70864- 2301 Jul, [facility] [id number] [place] [address] 94264- 9884 Jun, [facility] [id number] [place] [address] 83138- 4748 Jun, [facility] [address], [place] [address]- 4360 Jun, [facility] [id number] [place] [address] 63593- 6437 Jun, [facility] [address], [place] [address]- 2600 Jun, [facility] [id number] [place] [address] 60118- 0097 Jun, Diabetes mellitus without mention of complication, type I [ juvenile type], not stated as uncontrolled 250.01 [facility] [address], [place] [address]- 6458 May, [facility] [address] [facility] [id number] [address]- 0227 May, [facility] [address], [place] [address]- 8597 May, [facility] [address], [place] [address]- 4773 May, Autonomic neuropathy 337.9 ; Postural hypotension 458.0 and Anemia 285.9 [facility] [place] [facility] [address] [facility] [id number], [place] [address]- 1715 May, [facility] [id number], [place] [address]- 8665 Apr, [facility] [address], [place] [address]- 8319 Apr, [facility] [address], [place] [address]- 0023 Apr, [facility] [address], [place] [address]- 4993 Apr, [facility] [address], [place] [address]- 7710 Apr, [facility] [address], [place] [address]- 5158 March, [facility] [address], [place] [address]- 0591 March, [facility] [place] [facility] [id number], [place] [address]- 8291 March, [facility] [place] [facility] [id number], [place] [address]- 9179 March, [facility] [place] [facility] [id number], [place] [address]- 4516 March, [facility] [place] [facility] [id number], [place] [address]- 3283 Feb, [facility] [place] [facility] [id number] [place] [address]- 0088 14 Feb, 2015 [facility] [place] [facility] [address] [id number] [place] [address]- 8923 13 Feb, 2015 [facility] [place] [facility] [address] [id number] [place] [address]- 7466 30 Jan, 2015 [facility] [place] [facility] [address] [id number] [place] [address]- 8935 24 Jan, 2015 [facility] [place] [facility] [address] [id number] [place] [address]- 4064 24 Jan, 2015 [facility] [place] [facility] [address] [id number] [place] [address]- 1898 Jan, [facility] [place] [facility] [address] [id number] [place] [address]- 5594 Jan, [facility] [place] [facility] [address] [id number] [place] [address]- 1782 Jan, [facility] [place] [facility] [address] [id number] [place] [address]- 0286 Jan, [facility] [place] [facility] [address] [id number] [place] [address]- 5261 Jan, [facility] [place] [facility] [address] [id number] [place] [address]- 3652 Jan, [facility] [place] [facility] [address] [id number] [place] [address]- 7218 Jan, [facility] [place] [facility] [address] [id number] [place] [address]- 2520 Jan, [facility] [place] [facility] [address] [id number] [place] [address]- 1065 Jan, [facility] [place] [facility] [address] [id number] [place] [address]- 4336 Jan, [facility] [place] [facility] [address] [id number] [place] [address]- 7880 Dec, [facility] [place] [facility] [address] [id number] [place] [address]- 5648 Dec, [facility] [place] [facility] [address] [id number] [place] [address]- 2056 Dec, [facility] [place] [facility] [address] [id number] [place] [address]- 6159 Dec, 2014 [facility] [place] [facility] [address] [id number] [place] [address]- 1771 Dec, 2014 [facility] [place] [facility] [address] [id number] [place] [address]- 1713 Dec, [facility] [place] [facility] [address] [id number] [place] [address]- 7126 Dec, [facility] [place] [facility] [address] [id number] [place] [address]- 4949 Dec, [facility] [place] [facility] [address] [id number] [place] [address]- 9211 Nov, [facility] [place] [facility] [address] [id number] [place] [address]- 9549 Nov, [facility] [place] [facility] [address] [id number] [place] [address]- 2757 Nov, [facility] [place] [facility] [address] [id number] [place] [address] Nov, [facility] [place] [facility] [address] [id number] [place] [address] Nov, [facility] [place] [facility] [address] [id number] [place] [address] Nov, [facility] [place] [facility] [address] [id number] [place] [address] Nov, [facility] [place] [facility] [address] [id number] [place] [address] Nov, [facility] [place] [facility] [address] [id number] [place] [address] Nov, [facility] [address] [id number] [place] [address] Oct, [facility] [address] [id number] [place] [address] Oct, [facility] [address] [id number] [place] [address] Oct, [facility] [place] [facility] [address] [id number] [place] [address] Oct, [facility] [address] [id number] [place] [address] Oct, [facility] [address] [id number] [place] [address] Oct, [facility] [address] [id number] [place] [address] Oct, [facility] [address] [id number] [place] [address] Oct, [facility] [place] [facility] [address] [id number] [place] [address] Oct, [facility] [address] [id number] [place] [address] Oct, [facility] [place] [facility] [address] [id number] [place] [address] Oct, [facility] [place] [facility] [address] [id number] [place] [address] Oct, [facility] [place] [facility] [address] [id number] [place] [address] Oct, [facility] [place] [facility] [address] [id number] [place] [address] Oct, [facility] [place] [facility] [address] [id number] [place] [address] Sep, [facility] [place] [facility] [address] [id number] [place] [address] Sep, [facility] [place] [facility] [address] [id number] [place] [address] Sep, [facility] [place] [facility] [address] [id number] [place] [address] Sep, [facility] [place] [facility] [address] [id number] [place] [address] Aug, [facility] [place] [facility] [address] [id number] [place] [address] Aug, [facility] [place] [facility] [address] [id number] [place] [address]- [address] Aug, [facility] [place] [facility] [address] [id number] [place] [address] Aug, [facility] [place] [facility] [address] [id number] [place] [address] Aug, [facility] [place] [facility] [address] [id number] [place] [address] Aug, [facility] [place] [facility] [address] [id number] [place] [address] Aug, [facility] [place] [facility] [address] [id number], [place] [address] Aug, [facility] [place] [facility] [address] [id number], [place] [address] 87[address] Aug, [facility] [place] [facility] [address] [id number] [place] [address]- 4969 Aug, [facility] [place] [facility] [address] [id number] [place] [address] 3154 Jul, [facility] [place] [facility] [address] [id number], [place] [address] 39[address] Jul, [facility] [place] [facility] [address] [id number], [place] [address] 2544 29 Sep, 2013 [facility] [place] [facility] [address] [id number] [place] [address] 2546 29 Sep, 2013 [facility] [place] [facility] [address] [id number] [place] [address] 2546 22 Sep, 2013 [facility] [place] [facility] [address] [id number] [place] [address] 2546 22 Sep, 2013 [facility] [place] [facility] [address] [id number] [place] [address] 2549 19 Sep, 2013 [facility] [place] [facility] [address] [id number] [place] [address]- 8047 19 Jul, 2013 [facility] [place] [facility] [address] [id number] [place] [address]- 1488 11 Jul, 2013 [facility] [place] [facility] [address] [id number] [place] [address]- 6759 11 Jul, 2013 [facility] [place] [facility] [address] [id number] [place] [address]- 0894 10 Jul, 2013 [facility] [place] [facility] [address] [id number] [place] [address] 2540 10 Jul, 2013 [facility] [place] [facility] [address] [id number] [place] [address]- 2549 08 Sep, 2013 [facility] [place] [facility] [address] [id number] [place] [address] 2549 08 Sep, 2013 [facility] [place] [facility] [address] [id number] [place] [address]- 2544 03 Sep, 2013 [facility] [place] [facility] [address] [id number] [place] [address] 2545 03 Sep, 2013 [facility] [place] [facility] [address] [id number] [place] [address]- 2549 02 Sep, 2013 [facility] [place] [facility] [address] [id number] [place] [address]- 2543 02 Sep, 2013 [facility] [place] [facility] [address] [id number] [place] [address]- 2909 Jun, [facility] [place] [facility] [address] [id number] [place] [address]- 2762 Jun, [facility] [place] [facility] [address] [id number] [place] [address]- 4567 Jun, [facility] [place] [facility] [address] [id number] [place] [address]- 1648 Jun, [facility] [place] [facility] [address] [id number] [place] [address]- 8657 Jun, [facility] [place] [facility] [address] [id number] [place] [address]- 5347 Jun, [facility] [place] [facility] [address] [id number] [place] [address]- 9351 Jun, [facility] [place] [facility] [address] [id number] [place] [address]- 3473 Jun, [facility] [place] [facility] [address] [id number] [place] [address]- 6837 Jun, [facility] [place] [facility] [address] [id number] [place] [address]- 5405 Jun, [facility] [place] [facility] [address] [id number] [place] [address]- 1482 Jun, [facility] [place] [facility] [address] [id number] [place] [address]- 4554 Jun, [facility] [place] [facility] [address] [id number] [place] [address]- 0123 Jun, [facility] [place] [facility] [address] [id number] [place] [address]- 5318 Jun, [facility] [place] [facility] [address] [id number] [place] [address]- 2323 Jun, [facility] [place] [facility] [address] [id number] [place] [address]- 5363 May, [facility] [place] [facility] [address] [id number] [place] [address]- 5842 May, [facility] [place] [facility] [address] [id number] [place] [address]- 2301 May, [facility] [place] [facility] [address] [id number] [place] [address]- 7654 May, [facility] [place] [facility] [address] [id number] [place] [address]- 2762 May, [facility] [place] [facility] [address] [id number] [place] [address]- 8414 May, [facility] [place] [facility] [address] [id number] [place] [address]- 5560 May, [facility] [place] [facility] [address] [id number] [place] [address]- 5591 May, [facility] [place] [facility] [address] [id number] [place] [address]- 9468 Apr, [facility] [place] [facility] [address] [id number] [place] [address]- 2833 Apr, [facility] [place] [facility] [address] [id number] [place] [address]- 9108 Apr, [facility] [place] [facility] [address] [id number] [place] [address]- 2380 Apr, [facility] [place] [facility] [address] [id number], [place] [address]- 0421 Apr, [facility] [place] [facility] [address] [id number] [place] [address]- 3453 Apr, [facility] [place] [facility] [address] [id number] [place] [address]- 5763 Apr, [facility] [place] [facility] [address] [id number] [place] [address]- 2543 Apr, [facility] [place] [facility] [address] [id number] [place] [address]- 6502 Apr, [facility] [place] [facility] [address] [id number] [place] [address]- 5849 Apr, [facility] [place] [facility] [address] [id number] [place] [address]- 6983 Apr, [facility] [place] [facility] [address] [id number] [place] [address]- 4009 Apr, [facility] [place] [facility] [address] [id number] [place] [address]- 9711 Apr, [facility] [place] [facility] [address] [id number] [place] [address]- 4027 Apr, [facility] [place] [facility] [address] [id number] [place] [address]- 9241 Apr, [facility] [place] [facility] [address] [id number] [place] [address]- 7140 Apr, [facility] [place] [facility] [address] [id number] [place] [address]- 7023 Apr, [facility] [place] [facility] [address] [id number] [place] [address]- 3580 Apr, [facility] [place] [facility] [address] [id number] [place] [address]- 2735 March, [facility] [place] [facility] [address] [id number] [place] [address]- 0833 March, [facility] [place] [facility] [address] [id number] [place] [address]- 8286 March, [facility] [place] [facility] [address] [id number] [place] [address]- 8462 March, [facility] [place] [facility] [address] [id number] [place] [address]- 3300 March, [facility] [place] [facility] [address] [id number] [place] [address]- 3578 March, [facility] [place] [facility] [address] [id number] [place] [address]- 8748 March, [facility] [place] [facility] [address] [id number] [place] [address]- 8779 March, [facility] [place] [facility] [address] [id number] [place] [address]- 4846 March, [facility] [place] [facility] [address] [id number] [place] [address]- 4498 Feb, [facility] [place] [facility] [address] [id number] [place] [address]- 0371 Feb, [facility] [place] [facility] [address] [id number] [place] [address]- 8767 Feb, [facility] [place] [facility] [address] [id number] [place] [address]- 4936 Feb, [facility] [place] [facility] [address] [id number] [place] [address]- 6384 Feb, [facility] [place] [facility] [address] [id number] [place] [address]- 4245 Feb, [facility] [place] [facility] [address] [id number] [place] [address]- 4278 Feb, [facility] [place] [facility] [address] [id number] [place] [address]- 4657 Feb, [facility] [place] [facility] [address] [id number] [place] [address]- 9196 Feb, [facility] [place] [facility] [address] [id number] [place] [address]- 6036 Feb, [facility] [place] [facility] [address] [id number] [place] [address]- 7706 Feb, [facility] [place] [facility] [address] [id number] [place] [address]- 8115 Feb, [facility] [place] [facility] [address] [id number] [place] [address]- 7852 Feb, [facility] [place] [facility] [address] [id number] [place] [address]- 0321 Jan, [facility] [place] [facility] [address] [id number] [place] [address]- 6896 Jan, [facility] [place] [facility] [address] [facility] [id number] [place] [address]- 1732 Jan, [facility] [place] [facility] [address] [id number] [place] [address]- 6256 Jan, [facility] [place] [facility] [address] [id number] [place] [address]- 5036 Jan, [facility] [place] [facility] [address] [facility] [id number] [place] [address]- 8783 Jan, [facility] [place] [facility] [address] [facility] [id number] [place] [address]- 7898 Jan, [facility] [place] [facility] [address] [id number] [place] [address]- 0669 Jan, [facility] [place] [facility] [address] [facility] [id number] [place] [address]- 4240 Dec, [facility] [place] [facility] [address] [facility] [id number] [place] [address]- 5737 Dec, [facility] [place] [facility] [address] [id number] [place] [address]- 6228 Dec, [facility] [place] [facility] [address] [facility] [id number] [place] [address]- 1244 Dec, [facility] [place] [facility] [address] [id number] [place] [address]- 4892 Dec, [facility] [place] [facility] [address] [id number] [place] [address]- 6066 Dec, [facility] [place] [facility] [address] [facility] [id number] [place] [address]- 0148 Dec, [facility] [place] [facility] [address] [id number] [place] [address]- 4274 Dec, [facility] [place] [facility] [address] [id number] [place] [address]- 7752 Dec, [facility] [place] [facility] [address] [id number] [place] [address]- 3224 Dec, [facility] [place] [facility] [address] [id number] [place] [address]- 3554 Nov, [facility] [place] [facility] [address] [id number] [place] [address]- 0540 Nov, [facility] [place] [facility] [address] [id number] [place] [address]- 4437 Nov, [facility] [place] [facility] [address] [id number] [place] [address]- 2116 Nov, [facility] [place] [facility] [address] [id number] [place] [address]- 7961 Nov, [facility] [place] [facility] [address] [id number] [place] [address]- 0596 Nov, [facility] [place] [facility] [address] [id number] [place] [address]- 8643 Nov, [facility] [place] [facility] [address] [id number] [place] [address]- 1939 Nov, [facility] [place] [facility] [address] [id number] [place] [address]- 1258 Nov, [facility] [place] [facility] [address] [id number] [place] [address] Nov, [facility] [place] [facility] [address] [id number] [place] [address]- 3242 Oct, [facility] [place] [facility] [address] [id number] [place] [address]- 6983 Oct, [facility] [place] [facility] [address] [id number] [place] [address]- 0603 18 Oct, 2013 [facility] [place] [facility] [address] [id number] [place] [address]- 9969 18 Oct, 2013 [facility] [place] [facility] [address] [id number] [place] [address]- 4906 17 Oct, 2013 [facility] [place] [facility] [address] [id number] [place] [address]- 7835 17 Oct, 2013 [facility] [place] [facility] [address] [id number] [place] [address]- 5513 16 Oct, 2013 [facility] [place] [facility] [address] [id number] [place] 3991 16 Oct, 2013 [facility] [place] [facility] [address] [id number] [place] 7892 Oct, [facility] [place] [facility] [address] [id number] [place] 1588 Oct, [facility] [place] [facility] [address] [id number] [place] [address]- 1914 04 Oct, 2013 [facility] [place] [facility] [address] [id number] [place] [address]- 2285 04 Oct, 2013 [facility] [place] [facility] [address] [id number] [place] [address]- 0425 04 Oct, 2013 [facility] [place] [facility] [address] [id number] [place] 8835 Oct, [facility] [place] [facility] [address] [id number], [place] [address]- 0498 Sep, [facility] [place] [facility] [address] [id number] [place] [address]- 9306 Sep, [facility] [place] [facility] [address] [id number] [place] [address]- 1181 Sep, [facility] [place] [facility] [address] [id number] [place] [address]- 8947 Sep, [facility] [place] [facility] [address] [id number] [place] [address]- 1010 Sep, 2012 [facility] [address] [id number] [place] [address]- 2616 Sep, [facility] [place] [facility] [address] [id number] [place] [address]- 6228 31 Aug, 2013 [facility] [address] [id number] [place] [address]- 8260 31 Aug, 2012 [facility] [place] [facility] [address] [id number] [place] [address]- 4394 Aug, [facility] [address] [id number] [place] [address]- 0298 17 Aug, 2012 [facility] [place] [facility] [address] [id number] [place] [address]- 8518 10 Aug, 2013 [facility] [place] [facility] [address] [id number] [place] [address]- 8669 10 Aug, 2013 [facility] [address] [id number] [place] [address]- 4340 07 Aug, 2013 [facility] [place] [facility] [address] [id number] [place] [address]- 2669 02 Aug, 2013 [facility] [address] [id number] [place] [address]- 3559 02 Aug, 2013 [facility] [place] [facility] [address] [id number] [place] [address]- 7916 25 Jul, 2012 [facility] [place] [facility] [address] [id number] [place] [address]- 8235 23 Sep, 2012 [facility] [place] [facility] [address] [id number] [place] [address]- 1548 21 Jul, 2012 [facility] [place] [facility] [address] [id number] [place] [address]- 4564 20 Sep, 2012 [facility] [place] [facility] [address] [id number] [place] [address]- 2165 18 Jul, 2012 [facility] [place] [facility] [address] [id number] [place] [address]- 4725 17 Jul, 2012 [facility] [place] [facility] [address] [id number] [place] [address]- 9175 16 Jul, 2012 [facility] [place] [facility] [address] [id number] [place] [address]- 0584 11 Jul, 2012 [facility] [place] [facility] [address] [id number] [place] [address]- 8582 09 Jul, 2012 [facility] [place] [facility] [address] [id number] [place] [address]- 5551 09 Jul, 2012 [facility] [place] [facility] [address] [id number] [place] [address]- 2418 06 Jul, 2012 [facility] [place] [facility] [address] [id number] [place] [address]- 9191 03 Jul, 2012 [facility] [place] [facility] [address] [id number] [place] [address]- 9524 Jun, [facility] [place] [facility] [address] [id number] [place] [address]- 5782 Jun, [facility] [place] [facility] [address] [id number] [place] [address]- 0517 Jun, [facility] [place] [facility] [address] [id number] [place] [address]- 4592 Jun, [facility] [place] [facility] [address] [id number], [place] [address]- 1844 Jun, [facility] [place] [facility] [address] [id number] [place] [address]- 8758 Jun, [facility] [place] [facility] [address] [id number] [place] [address]- 3043 Jun, [facility] [place] [facility] [address] [id number] [place] [address]- 9454 Jun, [facility] [place] [facility] [address] [id number], [place] [address]- 6848 Jun, [facility] [address] [id number] [place] [address]- 5050 May, [facility] [place] [facility] [address] [id number] [place] [address]- 5884 May, [facility] [address] [id number] [place] [address]- 3718 May, [facility] [place] [facility] [address] [id number] [place] [address]- 4307 May, [facility] [address] [id number] [place] [address]- 4676 May, [facility] [address] [id number] [place] [address]- 4963 May, [facility] [address] [id number] [place] [address]- 7546 May, [facility] [address] [id number] [place] [address]- 8672 March, [facility] [address] [id number] [place] [address]- 6294 March, [facility] [address] [id number] [place] [address]- 5273 March, [facility] [address] [id number] [place] [address]- 0536 Dec, [facility] [place] [facility] [address] [id number] [place] [address]- 0037 Nov, [facility] [place] [facility] [address] [id number] [place] [address]- 5229 Aug, [facility] [place] [facility] [address] [id number] [place] [address]- 4087 Aug, [facility] [address] [id number] [place] [address]- 1584 Jun, [facility] [place] [facility] [address] [id number] [place] [address]- 9772 Jun, [facility] [place] [facility] [address] [id number] [place] [address]- 3176 Jun, [facility] [place] [facility] [address] [id number] [place] [address]- 3406 Jun, [facility] [place] [facility] [address] [id number] [place] [address]- 9431 May, [facility] [place] [facility] [address] [id number] [place] [address]- 8780 May, [facility] [place] [facility] [address] [id number] [place] [address]- 0971 May, [facility] [place] [facility] [address] [id number] [place] [address]- 6119 May, [facility] [place] [facility] [address] [id number] [place] [address] May, [facility] [place] [facility] [address] [id number] [place] [address] May, [facility] [place] [facility] [address] [id number] [place] [address] May, [facility] [place] [facility] [address] [id number] [place] [address] Apr, [facility] [place] [facility] [address] [id number] [place] [address] Apr, [facility] [place] [facility] [address] [id number] [place] [address] Apr, [facility] [place] [facility] [address] [id number] [place] [address] Apr, [facility] [place] [facility] [address] [id number] [place] [address] March, [facility] [place] [facility] [address] [id number] [place] [address] March, [facility] [address] [id number] [place] [address] March, [facility] [place] [facility] [address] [id number] [place] [address] March, [facility] [place] [facility] [address] [id number] [place] [address] March, [facility] [place] [facility] [address] [id number] [place] [address] March, [facility] [place] [facility] [address] [id number] [place] [address] March, [facility] [place] [facility] [address] [id number] [place] [address] March, [facility] [place] [facility] [address] [id number] [place] [address]- [address] March, [facility] [place] [facility] [address] [id number] [place] [address] Feb, [facility] [place] [facility] [address] [id number] [place] [address] Feb, [facility] [place] [facility] [address] [id number] [place] [address] Jan, [facility] [place] [facility] [address] [id number] [place] [address] Jan, [facility] [place] [facility] [address] [id number] [place] [address] Jan, [facility] [place] [facility] [address] [id number] [place] [address] Jan, [facility] [place] [facility] [address] [id number] [place] [address] Dec, [facility] [place] [facility] [address] [id number] [place] [address] Dec, [facility] [place] [facility] [address] [id number] [place] [address] 15 Dec, 2011 [facility] [address] [id number] [place] [address] Nov, [facility] [address] [id number] [place] [address] 19 Oct, 2011 [facility] [address] [id number] [place] [address] 15 Oct, 2011 [facility] [address] [id number] [place] [address] 15 Oct, 2011 [facility] [address] [id number] [place] [address] 14 Oct, 2011 [facility] [address] [id number] [place] [address] 14 Oct, 2011 [facility] [address] [id number] [place] [address] Oct, [facility] [address] [id number] [place] [address] Oct, [facility] [address] [id number] [place] [address] Oct, [facility] [address] [id number] [place] [address] Sep, [facility] [address] [id number] [place] [address] 17 Sep, 2011 [facility] [address] [id number] [place] [address] 14 Sep, 2011 [facility] [place] [facility] [address] [id number] [place] [address]- [address] 10 Sep, 2011 [facility] [place] [facility] [address] [id number] [place] [address] 10 Sep, 2011 [facility] [address] [id number] [place] [address] Sep, [facility] [address] [id number] [address] Sep, [facility] [id number] [place] [address] Sep, [facility] [id number] [place] [address] Sep, [facility] [id number] [place] [address] Aug, [facility] [address] [id number] [address] Jul, [facility] [id number] [place] [address] Oct, [facility] [id number], [place] [address] Oct, [facility] [address] [id number], [place] [address] Oct, IMMUNIZATIONS No Known Immunizations SOCIAL HISTORY Never Assessed REASON FOR VISIT Controlled Med Refill-10/24/17 PLAN OF CARE VITAL SIGNS MEDICATIONS Medication [...]
--- OUTSIDE RECORDS SUMMARY | 2018-04-25 06:46 | XMS REPORT ---
Author Author ALAN CARABALLO Organization [employer] Address Unknown Phone Unavailable Care Team Providers Care Training Officer Name Role Phone ALAN CARABALLO CP Unavailable [...]
--- OUTSIDE RECORDS SUMMARY | 2018-04-25 06:46 | XMS REPORT ---
Author Author ALAN CARABALLO [facility] Address [address] [place] [address] Care Team Providers Care Cans Vacuum Tester Name Role Phone ALAN CARABALLO Unavailable PROBLEMS Type Condition ICD9-CM Code OCA82-EJ Code Onset Dates Condition Status SNOMED Code Problem Type 1 diabetes mellitus without complications E10.9 Active 964065927 Problem Other insomnia G47.09 Active 531556358 Problem Low back pain M54.5 Active 751059648 Problem Migraine with aura and without status migrainosus, not intractable G43.109 Active 8823253 Problem Menorrhagia with regular cycle N92.0 Active 135060915 Problem Chronic kidney disease, stage 4 (severe) N18.4 Active 268574407 Problem Migraine without aura and without status migrainosus, not intractable G43.009 Active 188678370 Problem Autonomic neuropathy G90.9 Active 350212330 Problem Dysthymia F34.1 Active 14446548 Problem Type 1 diabetes mellitus with hypoglycemia without coma E10.649 Active 06009289 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 23641790 Problem Type 1 diabetes mellitus with hyperglycemia E10.65 Active 58476013 Problem Migraine G43.909 Active 08250642 Problem Irritable bowel K58.9 Active 06350982 Problem Proteinuria, unspecified R80.9 Active 60708733 Problem Anemia, unspecified D64.9 Active 127486685 Problem Chronic kidney disease, unspecified N18.9 Active 839634101 Problem Restless legs syndrome G25.81 Active 840982354 ALLERGIES No Information ENCOUNTERS Encounter Location Date Diagnosis [facility] [id number], [place] [address] Feb, [facility] [address] [facility] [id number], [place] [address] Feb, Low back pain M54.5 [place] [facility] [id number] [place] [address] 30178- 1867 Jan, Restless legs syndrome G25.81 [place] [facility] [address] [address]- 1639 Jan, Low back pain M54.5 [place] [address] 94992- 6009 Jan, [place] [address] 59129- 5133 Jan, Type 1 diabetes mellitus without complications E10.9 ; Low back pain M54.5 ; Cough R05 ; Diarrhea, unspecified type R19.7 ; Migraine without aura and without status migrainosus, not intractable G43.009 and Uses control Z30.9 [place] [address] [address]87- 4885 Dec, Low back pain M54.5 [place] [address] 28444- 7703 Dec, [place] [address] 07833- 0428 Nov, Well woman exam Z01.419 ; Menorrhagia with regular cycle N92.0 ; Vaginal dryness N89.8 and Migraine with aura and without status migrainosus, not intractable G43.109 [place] [id number] [place] [address] 68882- 2873 Nov, [facility] [id number] [place] [address] 04580- 7870 Nov, Low back pain M54.5 [place] [address] 37077- 1630 Oct, Low back pain M54.5 [place] [facility] [id number] [place] [address] 23958- 0551 Oct, Migraine without aura and without status migrainosus, not intractable G43.009 [facility] [id number] [place] [address] 90012- 8479 Sep, Low back pain M54.5 [facility] [id number] [place] [address] 99908- 6146 Sep, [facility] [id number] [place] [address] 15444- 6966 Sep, Migraine without aura and without status migrainosus, not intractable G43.009 [facility] [id number] [place] [address] 09900- 0716 Sep, Type 1 diabetes mellitus with hypoglycemia without coma E10.649 ; Anemia D64.9 ; Migraine without aura and without status migrainosus, not intractable G43.009 ; Chronic kidney disease, unspecified N18.9 ; Autonomic neuropathy G90.9 and Postural hypotension I95.1 [facility] [id number] [place] [address] 01758- 3914 Sep, Low back pain M54.5 [facility] [id number] [place] [address] 01741- 2311 Aug, Low back pain M54.5 [facility] [id number] [place] [address] 37628- 3636 14 Jul, 2017 [facility] [id number] [place] [address] 00469- 0364 Jul, Low back pain M54.5 [facility] [id number] [place] [address] 36661- 2136 Jun, [facility] [id number] [place] [address] 92685 2546 Jun, Low back pain M54.5 [facility] [id number] [place] [address] 17692 2546 Jun, Migraine without aura and without status migrainosus, not intractable G43.009 [facility] [id number] [place] [address] 49185- 8977 Jun, Type 1 diabetes mellitus with hyperglycemia E10.65 ; Dysthymia F34.1 and Migraine without aura and without status migrainosus, not intractable G43.009 [facility] [id number] [place] [address] 46281- 0055 Jun, [facility] [id number] [place] [address] 61782- 1269 May, Type 1 diabetes mellitus with hyperglycemia E10.65 [facility] [id number] [place] [address] 68344- 8309 May, Low back pain M54.5 [facility] [id number] [place] [address] 44326- 1321 May, Type 1 diabetes mellitus with hyperglycemia E10.65 [facility] [id number] [place] [address] 44696- 8629 Apr, [facility] [id number] [place] [address] 20866- 5538 Apr, Chronic kidney disease, stage 4 (severe) N18.4 [facility] [id number] [place] [address] 05096- 9705 Apr, Low back pain M54.5 [facility] [id number] [place] [address] 80271- 7123 March, [facility] [id number] [place] [address] 99067- 1215 March, Low back pain M54.5 [facility] [id number] [place] [address] 17799- 9963 Feb, [facility] [id number] [place] [address] 71275- 9056 Feb, [facility] [id number] [place] [address] 71416- 3775 Feb, Low back pain M54.5 [facility] [id number] [place] [address] 87594- 2785 Feb, Low back pain M54.5 [facility] [id number] [place] [address] 80380- 7106 Feb, Migraine without aura and without status migrainosus, not intractable G43.009 [facility] [id number] [place] [address] 68243- 6964 Feb, [facility] [id number] [place] [address] 59778- 4726 Jan, Low back pain M54.5 [place] [id number] [place] [address] 71014- 9021 Jan, Type 1 diabetes mellitus without complications E10.9 ; Anemia D64.9 ; Chronic kidney disease, unspecified N18.9 ; Migraine without aura and without status migrainosus, not intractable G43.009 and Other insomnia G47.09 [place] [id number] [place] [address] 98703- 2895 Jan, [place] [id number] [place] [address] 64748- 7240 Dec, Low back pain M54.5 [place] [id number] [place] [address] 96728- 1033 Dec, [place] [id number] [place] [address] 34834- 3043 Dec, [place] [id number] [place] [address] 56344- 3591 Dec, Shortness of breath R06.02 ; Type 1 diabetes mellitus without complications E10.9 and Leg swelling M79.89 [facility] [id number] [place] [address] 64201- 2281 Nov, Low back pain M54.5 [place] [id number] [place] [address] 06044- 3372 Nov, Viral syndrome B34.9 [facility] [id number] [place] [address] 42679- 6540 Oct, Low back pain M54.5 [facility] [id number] [place] [address] 54055- 2808 Oct, [facility] [id number] [place] [address] 60545- 1477 Oct, Low back pain M54.5 [facility] [id number] [place] [address] 04106- 0436 Sep, [facility] [address] 27400- 2100 Sep, Fatigue, unspecified type R53.83 ; Type 1 diabetes mellitus without complications E10.9 and Anemia D64.9 [facility] [id number] [place] [address] 38624- 6980 Sep, Low back pain M54.5 [facility] [id number] [place] [address] 83079- 0875 Sep, Type 1 diabetes mellitus with hyperglycemia E10.65 [facility] [id number] [place] [address] 37227- 6001 Aug, Type 1 diabetes mellitus without complications E10.9 [facility] [id number] [place] [address] 71075- 2995 Aug, [facility] [id number] [place] [address] 79623- 8613 Aug, [facility] [id number] [place] [address] 87691- 2544 Jul, [facility] [id number] [place] [address] 54640- 4766 14 Jul, 2016 Low back pain M54.5 [facility] [id number] [place] [address] 77356- 7138 12 Jul, 2016 Hyperkalemia, diminished renal excretion E87.5 [facility] [id number] [place] [address] 95750- 0782 Jul, Hyperkalemia, diminished renal excretion E87.5 [facility] [id number] [place] [address] 90432 2546 Jun, [facility] [id number] [place] [address] 17535- 5559 Jun, Low back pain M54.5 [facility] [id number] [place] [address] 99923 2544 Jun, Anemia D64.9 ; Autonomic neuropathy G90.9 and Postural hypotension I95.1 [facility] [id number] [place] [address] 14190- 1347 Jun, [facility] [id number] [place] [address] 56238- 7495 May, Type 1 diabetes mellitus with complications E10.8 and Anemia D64.9 [facility] [id number] [place] [address] 00901- 9078 May, Low back pain M54.5 [facility] [id number] [place] [address] 30084- 6190 Apr, [facility] [id number] [place] [address] 15473- 1780 Apr, Low back pain M54.5 [facility] [id number] [place] [address] 45851 2547 Apr, [facility] [id number] [place] [address] 71130- 2545 Apr, [facility] [id number] [place] [address] 77410- 2540 March, Low back pain M54.5 and Other chronic pain G89.29 [facility] [id number] [place] [address] 25066- 5394 March, Type 1 diabetes mellitus without complications E10.9 [facility] [id number] [place] [address] 98865- 8716 March, [facility] [id number] [place] [address] 11373- 2058 March, [facility] [id number] [place] [address] 21498- 5705 Feb, [facility] [address] 14262- 5861 Feb, Type 1 diabetes mellitus without complications E10.9 [facility] [address] 86439- 2544 Feb, Trochanteric bursitis, right hip M70.61 [facility] [id number] [place] [address] 83383- 0577 Jan, [facility] [address] 75986- 6518 Jan, [facility] [id number] [place] [address] 28535- 8304 Dec, Type 1 diabetes mellitus with complications E10.8 [facility] [id number] [place] [address] 67196- 0516 Dec, [facility] [id number] [place] [address] 54823- 0650 Dec, Anemia D64.9 ; Autonomic neuropathy G90.9 and Postural hypotension I95.1 [facility] [id number] [place] [address] 92966- 5552 Dec, [facility] [id number] [place] [address] 62094- 0102 Nov, Sore throat J02.9 [facility] [id number] [place] [address] 70390- 4226 Nov, Type 1 diabetes mellitus with complications E10.8 [facility] [address], [place] [address]- 5328 18 Nov, 2015 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 ; Proteinuria, unspecified R80.9 and Chronic kidney disease, unspecified N18.9 [facility] [id number] [place] [address] 81352- 2340 14 Nov, 2015 [facility] [id number] [place] [address] 97697- 8398 Nov, Trochanteric bursitis, right hip M70.61 [facility] [id number] [place] [address] 24081- 4655 Nov, [facility] [id number] [place] [address] 38452- 1216 Oct, [facility] [id number] [place] [address] 34281- 2112 Oct, [facility] [id number] [place] [address] 36611- 6324 Oct, [facility] [id number] [place] [address] 48295- 4640 Sep, [facility] [id number] [place] [address] 57824- 5883 Sep, [facility] [id number] [place] [address] 20338- 3183 Sep, Type 2 diabetes mellitus with complication E11.8 and Right hip pain M25.551 [facility] [id number] [place] [address] 42889- 1399 Sep, [facility] [id number] [place] [address] 41924- 9541 Aug, [facility] [id number] [place] [address] 96774- 4753 14 Aug, 2015 [facility] [id number] [place] [address] 78030- 1763 Aug, [facility] [address], [place] [address]- 0676 Aug, Type 1 diabetes mellitus without complications E10.9 [facility] [address] 8373 16 Jul, 2015 [facility] [id number] [place] [address] 70142- 6748 Jul, [facility] [address], [place] [address]- 5337 Jul, [facility] [id number] [place] [address] 01577- 9564 Jun, [facility] [id number] [place] [address] 89011- 1688 Jun, [facility] [id number] [place] [address] 08223- 9179 Jun, [facility] [address], [place] [address]- 5807 Jun, [facility] [id number] [place] [address] 37032- 6331 Jun, [facility] [address], [place] [address]- 8507 Jun, Diabetes mellitus without mention of complication, type I [ juvenile type], not stated as uncontrolled 250.01 [facility] [address], [place] [address]- 9544 May, [facility] [address], [place] [address]- 3547 May, [facility] [id number] [place] [address] 29735- 4470 May, [facility] [address], [place] [address]- 5819 May, Autonomic neuropathy 337.9 ; Postural hypotension 458.0 and Anemia 285.9 [facility] [place] [facility] [address] [id number] [place] [address]- 7611 May, [facility] [place] [facility] [address] [id number] [place] [address]- 8905 Apr, [facility] [place] [facility] [address] [id number] [place] [address]- 5466 Apr, [facility] [place] [facility] [address] [id number] [place] [address]- 6552 Apr, [facility] [place] [facility] [address] [id number] [place] [address]- 3998 Apr, [facility] [place] [facility] [address] [id number] [place] [address]- 5906 Apr, [facility] [place] [facility] [address] [facility] [id number] [place] [address]- 8034 March, [facility] [place] [facility] [address] [facility] [id number] [place] [address]- 3934 March, [facility] [place] [facility] [address] [facility] [id number] [place] [address]- 2644 March, [facility] [place] [facility] [address] [facility] [id number] [place] [address]- 6464 March, [facility] [place] [facility] [address] [facility] [id number] [place] [address]- 4885 March, [facility] [place] [facility] [address] [facility] [id number], [place] [address]- 5190 Feb, [facility] [place] [facility] [address] [id number] [place] [address]- 0100 Feb, [facility] [place] [facility] [address] [facility] [id number] [place] [address]- 8224 Feb, [facility] [place] [facility] [address] [facility] [id number] [place] [address]- 8637 Jan, [facility] [place] [facility] [address] [id number], [place] [address]- 7837 Jan, [facility] [place] [facility] [address] [id number] [place] [address]- 8325 Jan, [facility] [place] [facility] [address] [id number] [place] [address]- 7257 Jan, [facility] [place] [facility] [address] [id number] [place] [address]- 6699 Jan, [facility] [place] [facility] [address] [id number] [place] [address]- 0370 Jan, [facility] [place] [facility] [address] [id number] [place] [address]- 1635 Jan, [facility] [place] [facility] [address] [facility] [id number] [place] [address]- 0535 Jan, [facility] [place] [facility] [address] [facility] [id number] [place] [address]- 3183 Jan, [facility] [place] [facility] [address] [facility] [id number] [place] [address]- 2636 Jan, [facility] [place] [facility] [address] [id number] [place] [address]- 0206 Jan, [facility] [place] [facility] [address] [facility] [id number] [place] [address]- 2972 Jan, [facility] [place] [facility] [address] [id number] [place] [address]- 8001 Jan, [facility] [place] [facility] [address] [facility] [id number] [place] [address]- 5914 Dec, [facility] [place] [facility] [address] [id number] [place] [address]- 3082 Dec, [facility] [place] [facility] [address] [id number] [place] [address]- 5527 Dec, [facility] [place] [facility] [address] [facility] [id number] [place] [address]- 6424 Dec, [facility] [place] [facility] [address] [id number] [place] [address]- 6988 Dec, [facility] [place] [facility] [address] [id number] [place] [address]- 9990 Dec, [facility] [place] [facility] [address] [id number] [place] [address]- 8310 Dec, [facility] [place] [facility] [address] [id number] [place] [address]- 7988 Dec, [facility] [place] [facility] [address] [id number] [place] [address]- 1951 Nov, [facility] [place] [facility] [address] [id number] [place] [address]- 4049 Nov, [facility] [place] [facility] [address] [id number] [place] [address]- 6114 Nov, [facility] [place] [facility] [address] [id number] [place] [address]- 2182 Nov, [facility] [place] [facility] [address] [id number] [place] [address]- 1878 Nov, [facility] [place] [facility] [address] [id number] [place] [address]- 7175 Nov, [facility] [place] [facility] [address] [id number] [place] [address]- 3132 Nov, [facility] [place] [facility] [address] [id number], [place] [address]- 9768 Nov, [facility] [place] [facility] [address] [id number] [place] [address]- 6473 Nov, [facility] [place] [facility] [address] [id number] [place] [address]- 5886 Oct, [facility] [place] [facility] [address] [id number] [place] [address]- 5248 Oct, [facility] [place] [facility] [address] [id number] [place] [address]- 3070 Oct, [facility] [place] [facility] [address] [id number] [place] [address]- 1125 Oct, [facility] [place] [facility] [address] [id number] [place] [address]- 5736 Oct, [facility] [place] [facility] [address] [id number] [place] [address]- 0586 Oct, [facility] [place] [facility] [address] [id number] [place] [address] Oct, [facility] [place] [facility] [address] [id number] [place] [address] Oct, [facility] [place] [facility] [address] [id number] [place] [address] Oct, [facility] [place] [facility] [address] [id number] [place] [address] Oct, [facility] [place] [facility] [address] [id number] [place] [address] Oct, [facility] [place] [facility] [address] [id number] [place] [address] Oct, [facility] [place] [facility] [address] [facility] [id number] [place] [address] Oct, [facility] [place] [facility] [address] [id number] [place] [address] Oct, [facility] [place] [facility] [address] [id number] [place] [address] Sep, [facility] [place] [facility] [address] [id number] [place] [address] Sep, [facility] [place] [facility] [address] [id number] [place] [address] Sep, [facility] [place] [facility] [address] [facility] [id number] [place] [address] Sep, [facility] [place] [facility] [address] [id number] [place] [address] Aug, [facility] [place] [facility] [address] [id number] [place] [address] Aug, [facility] [place] [facility] [address] [id number] [place] [address] Aug, [facility] [place] [facility] [address] [id number] [place] [address] Aug, [facility] [place] [facility] [address] [id number] [place] [address] Aug, [facility] [place] [facility] [address] [id number] [place] [address] Aug, [facility] [place] [facility] [address] [id number] [place] [address] Aug, [facility] [place] [facility] [address] [id number] [place] [address] Aug, [facility] [place] [facility] [address] [id number] [place] [address] Aug, [facility] [place] [facility] [address] [id number] [place] [address] Aug, [facility] [place] [facility] [address] [id number] [place] [address] 29 Jul, 2013 [facility] [place] [facility] [address] [id number] [place] [address] 29 Jul, 2013 [facility] [place] [facility] [address] [id number] [place] [address] 29 Jul, 2013 [facility] [place] [facility] [address] [id number] [place] [address] 29 Jul, 2013 [facility] [place] [facility] [address] [id number] [place] [address]- [address] 22 Jul, 2013 [facility] [place] [facility] [address] [id number] [place] [address] 22 Jul, 2013 [facility] [place] [facility] [address] [id number] [place] [address] 19 Jul, 2013 [facility] [place] [facility] [address] [id number] [place] [address] 19 Jul, 2013 [facility] [place] [facility] [address] [id number] [place] [address] 11 Jul, 2013 [facility] [place] [facility] [address] [id number] [place] [address] 11 Jul, 2013 [facility] [place] [facility] [address] [id number] [place] [address] 10 Jul, 2013 [facility] [place] [facility] [address] [id number] [place] [address] 10 Jul, 2013 [facility] [place] [facility] [address] [id number] [place] [address] 08 Jul, 2013 [facility] [place] [facility] [address] [id number] [place] [address]- [address] 08 Jul, 2013 [facility] [place] [facility] [address] [id number] [place] [address] 03 Jul, 2013 [facility] [place] [facility] [address] [id number] [place] [address] 75[address] Jul, 2013 [facility] [place] [facility] [address] [id number] [place] [address] 1728 Jul, 2013 [facility] [place] [facility] [address] [id number] [place] [address] 9922 Jul, 2013 [facility] [place] [facility] [address] [id number] [place] [address] 2106 Jun, [facility] [place] [facility] [address] [id number] [place] [address] 2415 Jun, [facility] [place] [facility] [address] [id number] [place] [address] 3511 Jun, [facility] [place] [facility] [address] [id number] [place] [address]- 4967 Jun, [facility] [place] [facility] [address] [id number] [place] [address]- 1873 Jun, [facility] [place] [facility] [address] [id number] [place] [address]- 7631 Jun, [facility] [place] [facility] [address] [id number] [place] [address]- 7595 Jun, [facility] [place] [facility] [address] [id number] [place] [address]- 9785 Jun, [facility] [place] [facility] [address] [id number] [place] [address]- 0421 Jun, [facility] [place] [facility] [address] [id number] [place] [address]- 0973 Jun, [facility] [place] [facility] [address] [id number] [place] [address]- 1261 Jun, [facility] [place] [facility] [address] [id number] [place] [address]- 5313 Jun, [facility] [place] [facility] [address] [id number] [place] [address]- 2550 Jun, [facility] [place] [facility] [address] [id number] [place] [address]- 1711 Jun, [facility] [place] [facility] [address] [id number] [place] [address]- 6458 Jun, [facility] [place] [facility] [address] [id number] [place] [address]- 4981 May, [facility] [place] [facility] [address] [id number] [place] [address]- 8322 May, [facility] [place] [facility] [address] [id number] [place] [address]- 3067 May, [facility] [place] [facility] [address] [id number] [place] [address]- 9818 May, [facility] [place] [facility] [address] [id number] [place] [address]- 4417 May, [facility] [place] [facility] [address] [id number] [place] [address]- 2053 May, [facility] [place] [facility] [address] [id number] [place] [address]- 3470 May, [facility] [place] [facility] [address] [id number] [place] [address]- 1140 May, [facility] [place] [facility] [address] [id number] [place] [address]- 5944 Apr, [facility] [place] [facility] [address] [id number] [place] [address]- 2486 Apr, [facility] [place] [facility] [address] [id number] [place] [address]- 5755 Apr, [facility] [place] [facility] [address] [id number] [place] [address]- 8732 Apr, [facility] [place] [facility] [address] [id number] [place] [address]- 3404 Apr, [facility] [place] [facility] [address] [id number] [place] [address]- 8984 Apr, [facility] [place] [facility] [address] [id number] [place] [address]- 4301 Apr, [facility] [place] [facility] [address] [id number] [place] [address]- 2634 Apr, [facility] [place] [facility] [address] [id number] [place] [address]- 5024 Apr, [facility] [place] [facility] [address] [id number] [place] [address]- 3540 Apr, [facility] [place] [facility] [address] [id number] [place] [address]- 7910 16 Apr, 2014 [facility] [place] [facility] [address] [id number] [place] [address]- 7929 Apr, [facility] [place] [facility] [address] [id number] [place] [address]- 3139 Apr, [facility] [place] [facility] [address] [id number] [place] [address]- 2995 Apr, [facility] [place] [facility] [address] [id number] [place] [address]- 0111 Apr, [facility] [place] [facility] [address] [id number] [place] [address]- 1644 Apr, [facility] [place] [facility] [address] [id number] [place] [address]- 4521 Apr, [facility] [place] [facility] [address] [id number] [place] [address]- 0448 Apr, [facility] [place] [facility] [address] [id number] [place] [address]- 6829 March, [facility] [place] [facility] [address] [id number] [place] [address]- 7083 March, [facility] [place] [facility] [address] [id number] [place] [address]- 1169 March, [facility] [place] [facility] [address] [id number] [place] [address]- 5374 March, [facility] [place] [facility] [address] [id number] [place] [address]- 2528 March, [facility] [place] [facility] [address] [id number] [place] [address]- 3163 March, [facility] [place] [facility] [address] [id number] [place] [address] 0001 March, [facility] [place] [facility] [address] [id number] [place] [address]- 8748 March, [facility] [place] [facility] [address] [id number] [place] [address]- 5371 March, [facility] [place] [facility] [address] [id number] [place] [address]- 1879 Feb, [facility] [address] [id number] [place] [address]- 0192 Feb, [facility] [place] [facility] [address] [id number] [place] [address]- 4975 Feb, [facility] [address] [id number] [place] [address]- 6364 Feb, [facility] [place] [facility] [address] [id number] [place] [address] 6593 Feb, [facility] [address] [id number] [place] [address]- 2812 Feb, [facility] [address] [id number] [place] [address]- 9878 Feb, [facility] [place] [facility] [address] [id number] [place] [address]- 2608 Feb, [facility] [address] [id number] [place] [address]- 0916 Feb, [facility] [place] [facility] [address] [id number] [place] [address]- 0302 Feb, [facility] [address] [id number] [place] [address]- 0236 Feb, [facility] [place] [facility] [address] [id number] [place] [address]- 8048 Feb, [facility] [place] [facility] [address] [id number] [place] [address]- 2285 Feb, [facility] [place] [facility] [address] [id number] [place] [address]- 7058 Jan, [facility] [place] [facility] [address] [id number] [place] [address]- 4485 Jan, [facility] [place] [facility] [address] [id number] [place] [address]- 8259 Jan, [facility] [place] [facility] [address] [id number] [place] [address]- 4772 Jan, [facility] [place] [facility] [address] [id number] [place] [address]- 3420 Jan, [facility] [place] [facility] [address] [id number] [place] [address]- 9020 Jan, [facility] [place] [facility] [address] [id number] [place] [address]- 5054 Jan, [facility] [place] [facility] [address] [id number] [place] [address]- 5986 Jan, [facility] [place] [facility] [address] [id number] [place] [address]- 0500 Dec, [facility] [place] [facility] [address] [id number] [place] [address]- 5994 Dec, [facility] [place] [facility] [address] [id number] [place] [address]- 3276 Dec, [facility] [place] [facility] [address] [id number] [place] [address]- 3897 Dec, [facility] [place] [facility] [address] [id number] [place] [address]- 5932 Dec, [facility] [place] [facility] [address] [id number] [place] [address]- 7120 Dec, [facility] [place] [facility] [address] [id number] [place] [address]- 3628 Dec, [facility] [place] [facility] [address] [id number] [place] [address]- 9712 Dec, [facility] [place] [facility] [address] [id number] [place] Dec, [facility] [place] [facility] [address] [id number] [place] [address]- 6729 Dec, [facility] [place] [facility] [address] [id number] [place] [address]- 2456 Nov, [facility] [address] [id number] [place] [address]- 0927 Nov, [facility] [address] [id number] [place] [address]- 4479 Nov, [facility] [address] [id number] [place] [address]- 4395 Nov, [facility] [address] [id number] [place] [address]- 9818 Nov, [facility] [address] [id number] [place] [address]- 8598 Nov, [facility] [address] [id number] [place] [address]- 1372 Nov, [facility] [address] [id number] [place] [address]- 6062 Nov, [facility] [address] [id number] [place] [address]- 4305 Nov, [facility] [address] [id number] [place] [address]- 4980 Nov, [facility] [address] [id number] [place] [address]- 2806 Oct, [facility] [address] [id number] [place] [address]- 7667 Oct, [facility] [address] [id number] [place] [address]- 6574 18 Oct, 2013 [facility] [place] [facility] [address] [id number] [place] [address]- 7628 18 Oct, 2013 [facility] [address] [id number] [place] [address]- 1422 17 Oct, 2013 [facility] [address] [id number] [place] [address]- 3013 17 Oct, 2013 [facility] [place] [facility] [address] [id number] [place] [address]- 5777 16 Oct, 2013 [facility] [place] [facility] [address] [id number] [place] [address]- 7143 16 Oct, 2013 [facility] [place] [facility] [address] [id number] [place] Oct, [facility] [place] [facility] [address] [id number] [place] [address]- 9125 Oct, [facility] [place] [facility] [address] [id number] [place] Oct, [facility] [place] [facility] [address] [id number] [place] [address]- 6723 Oct, [facility] [place] [facility] [address] [id number] [place] [address]- 8884 Oct, [facility] [place] [facility] [address] [id number] [place] [address]- 8778 Oct, [facility] [place] [facility] [address] [id number] [place] [address]- 9709 Sep, [facility] [place] [facility] [address] [id number] [place] [address]- 2663 27 Sep, 2013 [facility] [place] [facility] [address] [id number] [address]- 6373 18 Sep, 2013 [facility] [place] [facility] [address] [id number], [place] [address]- 8644 18 Sep, 2013 [facility] [place] [facility] [address] [id number] [place] [address]- 0880 Sep, [facility] [place] [facility] [address] [id number] [place] [address]- 4672 Sep, [facility] [place] [facility] [address] [id number] [place] [address]- 8981 31 Aug, 2013 [facility] [place] [facility] [address] [id number] [place] [address]- 9145 31 Aug, 2012 [facility] [address] [id number] [place] [address]- 3874 17 Aug, 2012 [facility] [place] [facility] [address] [id number] [place] [address]- 2243 17 Aug, 2012 [facility] [place] [facility] [address] [id number] [place] [address]- 7631 10 Aug, 2012 [facility] [place] [facility] [address] [id number] [place] [address]- 8676 10 Aug, 2012 [facility] [place] [facility] [address] [id number] [place] [address]- 2515 07 Aug, 2012 [facility] [place] [facility] [address] [id number] [place] [address]- 9771 02 Aug, 2013 [facility] [address] [id number] [place] [address]- 0477 02 Aug, 2012 [facility] [place] [facility] [address] [id number] [place] [address]- 1477 25 Sep, 2012 [facility] [place] [facility] [address] [id number] [place] [address]- 5489 23 Sep, 2012 [facility] [place] [facility] [address] [id number] [place] [address]- 3428 21 Sep, 2012 [facility] [place] [facility] [address] [id number] [place] [address]- 5442 20 Sep, 2012 [facility] [place] [facility] [address] [id number], [place] [address]- 254 18 Sep, 2012 [facility] [place] [facility] [address] [id number] [place] [address]- 6330 17 Sep, 2012 [facility] [place] [facility] [address] [id number] [place] [address]- 8571 16 Sep, 2012 [facility] [place] [facility] [address] [id number], [place] [address]- 5838 11 Sep, 2012 [facility] [place] [facility] [address] [id number] [place] [address] 2540 09 Jul, 2012 [facility] [place] [facility] [address] [id number] [place] [address]- 8706 Jul, 2012 [facility] [place] [facility] [address] [id number] [place] [address] 2546 Jul, 2012 [facility] [place] [facility] [address] [id number] [place] [address] 2546 Jul, 2012 [facility] [place] [facility] [address] [id number] [place] [address] 2542 Jun, [facility] [place] [facility] [address] [id number] [place] [address]- 7191 Jun, [facility] [place] [facility] [address] [id number] [place] [address]- 7557 Jun, [facility] [place] [facility] [address] [id number] [place] [address]- 6521 Jun, [facility] [place] [facility] [address] [id number] [place] [address]- 7269 Jun, [facility] [place] [facility] [address] [id number] [place] [address]- 7145 Jun, [facility] [place] [facility] [address] [id number] [place] [address]- 5715 Jun, [facility] [place] [facility] [address] [id number] [place] [address]- 5087 Jun, [facility] [place] [facility] [address] [id number] [place] [address]- 7982 Jun, [facility] [place] [facility] [address] [id number] [place] [address]- 1051 May, [facility] [place] [facility] [address] [id number] [place] [address] 2549 May, [facility] [place] [facility] [address] [id number] [place] [address]- 5321 May, [facility] [address] [id number] [place] [address]- 0080 May, [facility] [place] [facility] [address] [id number] [place] [address]- 2374 May, [facility] [place] [facility] [address] [id number] [place] [address]- 0655 May, [facility] [place] [facility] [address] [id number] [place] [address]- 6016 May, [facility] [place] [facility] [address] [id number] [place] [address]- 5098 March, [facility] [place] [facility] [address] [id number] [place] [address]- 1548 March, [facility] [place] [facility] [address] [id number] [place] [address]- 4404 March, [facility] [place] [facility] [address] [id number] [place] [address]- 4748 Dec, [facility] [place] [facility] [address] [id number] [place] [address]- 2195 Nov, [facility] [place] [facility] [address] [id number] [place] [address]- 8515 Aug, [facility] [place] [facility] [address] [id number] [place] [address]- 1984 Aug, [facility] [place] [facility] [address] [id number] [place] [address]- 9879 Jun, [facility] [place] [facility] [address] [id number] [place] [address]- 7746 Jun, [facility] [place] [facility] [address] [id number] [place] [address]- 7884 Jun, [facility] [place] [facility] [address] [id number] [place] [address]- 7376 Jun, [facility] [place] [facility] [address] [id number] [place] [address]- 7994 May, [facility] [address] [id number] [place] [address]- 1909 May, [facility] [address] [id number] [place] [address]- 1706 May, [facility] [address] [id number] [place] [address]- 5859 May, [facility] [address] [id number] [place] [address]- 4907 May, [facility] [address] [id number] [place] [address]- 8330 May, [facility] [address] [id number] [place] [address]- 6861 May, [facility] [address] [id number] [place] [address]- 2689 Apr, [facility] [address] [id number] [place] [address]- 2711 Apr, [facility] [address] [id number] [place] [address]- 9010 Apr, [facility] [address] [id number] [place] [address]- 3152 Apr, [facility] [address] [id number] [place] [address]- 3615 March, [facility] [address] [id number] [place] [address]- 1303 March, [facility] [place] [facility] [address] [id number] [place] [address]- 8896 March, [facility] [place] [facility] [address] [id number] [place] [address]- 7872 March, [facility] [address] [id number] [place] [address]- 4232 March, [facility] [place] [facility] [address] [id number] [place] [address]- 4933 March, [facility] [place] [facility] [address] [id number] [place] [address]- 2179 March, [facility] [place] [facility] [address] [id number] [place] [address]- 6246 March, [facility] [place] [facility] [address] [id number] [place] [address] March, [facility] [address] [id number] [place] [address] Feb, [facility] [place] [facility] [address] [id number] [place] [address] Feb, [facility] [address] [id number] [place] [address] Jan, [facility] [address] [id number] [place] [address] Jan, [facility] [place] [facility] [address] [id number] [place] [address] Jan, [facility] [place] [facility] [address] [id number] [place] [address] Jan, [facility] [place] [facility] [address] [id number] [place] [address] Dec, [facility] [place] [facility] [address] [id number] [place] [address] Dec, [facility] [place] [facility] [address] [id number] [place] [address] Dec, [facility] [place] [facility] [address] [id number] [place] [address] Nov, [facility] [place] [facility] [address] [id number] [place] [address] Oct, [facility] [place] [facility] [address] [id number] [place] [address] 15 Oct, 2011 [facility] [place] [facility] [address] [id number] [place] [address] 15 Oct, 2011 [facility] [place] [facility] [address] [id number] [place] [address] 14 Oct, 2011 [facility] [place] [facility] [address] [id number] [place] [address] 14 Oct, 2011 [facility] [place] [facility] [address] [id number] [place] [address] 12 Oct, 2011 [facility] [place] [facility] [address] [id number] [place] [address] 09 Oct, 2011 [facility] [place] [facility] [address] [id number] [place] [address] Oct, [facility] [place] [facility] [address] [id number] [place] [address] 22 Sep, 2011 [facility] [place] [facility] [address] [id number] [place] [address] 17 Sep, 2011 [facility] [place] [facility] [address] [id number] [place] [address] 14 Sep, 2011 [facility] [place] [facility] [address] [id number] [place] [address] Sep, [facility] [place] [facility] [address] [id number] [place] [address] 10 Sep, 2011 [facility] [place] [facility] [address] [id number], [place] [address] Sep, [facility] [place] [facility] [address] [id number] [place] [address] 08 Sep, 2011 [facility] [place] [facility] [address] [id number] [place] [address] Sep, [facility] [place] [facility] [address] [id number] [place] [address] Sep, [facility] [place] [facility] [address] [facility] [id number], [place] [address] Aug, [facility] [address] [facility] [id number], [place] [address] Jul, [facility] [address] [id number], [place] [address] Oct, [facility] [address] [facility] [id number], [place] [address] Oct, [facility] [address] [facility] [id number], [place] [address] Oct, IMMUNIZATIONS No Known Immunizations SOCIAL HISTORY Never Assessed REASON FOR VISIT Refill request PLAN OF CARE VITAL SIGNS MEDICATIONS Unknown Medications RESULTS No Results PROCEDURES No Known procedures INSTRUCTIONS MEDICATIONS ADMINISTERED No Known Medications MEDICAL (GENERAL) HISTORY Type Description Date Medical History Diabetic Surgical History Bilat tubal ligation Hospitalization History Diabetic multiple hospitalizations
--- OUTSIDE RECORDS SUMMARY | 2018-04-25 06:46 | XMS REPORT ---
Author Author ALAN CARABALLO [facility] e[employer] Address Unknown Phone Unavailable Care Team Providers Care Chiller Tender Name Role Phone ALAN CARABALLO CP Unavailable [...] Instructions Start Date End Date Status Dosage GlucaGen HypoKit [facility] [address]-62 1 MG Injection PRN Jul 25, 2016 Inject 1 mg Results No Known Results Summary Purpose eClinicalWorks Submission
--- OUTSIDE RECORDS SUMMARY | 2018-04-25 06:46 | XMS REPORT ---
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 Assessment Trochanteric bursitis, right hip M70.61 Active Problem Type 1 diabetes mellitus with hyperglycemia E10.65 Active Problem Type 1 diabetes mellitus with hypoglycemia without coma E10.649 Active Medications No Known Medications Procedures Procedure Coding System Code Date Office Visit, Est Pt., Level 3 CPT-4 23593 March 15, 2016 [facility] VISIT ESTABLISHED PATIENT CPT-4 G0467 March 15, 2016 Vital Signs Date/Time: March 15, 2016 Blood Pressure Diastolic 71 mmHg Blood Pressure Systolic 116 mmHg Height 62 in Results No Known Results Summary Purpose eClinicalWorks Submission
--- OUTSIDE RECORDS SUMMARY | 2018-04-25 06:47 | XMS REPORT ---
Author Author ALAN CARABALLO Organization [employer] Address Unknown Phone Unavailable Care Team Providers Care Dice Person Name Role Phone ALAN CARABALLO CP Unavailable [...]
--- OUTSIDE RECORDS SUMMARY | 2018-04-25 06:47 | XMS REPORT ---
Author Author ALAN CARABALLO [facility] Address [address] [place] [address] Care Team Providers Care Exterminator Helper Termite Name Role Phone ALAN CARABALLO Unavailable PROBLEMS Type Condition ICD9-CM Code [id number] Code Onset Dates Condition Status SNOMED Code Problem Type 1 diabetes mellitus without complications E10.9 Active 623159782 Problem Other insomnia G47.09 Active 539993288 Problem Low back pain M54.5 Active 491369450 Problem Migraine with aura and without status migrainosus, not intractable G43.109 Active 4107825 Problem Menorrhagia with regular cycle N92.0 Active 971085720 Problem Chronic kidney disease, stage 4 (severe) N18.4 Active 291520235 Problem Migraine without aura and without status migrainosus, not intractable G43.009 Active 486468839 Problem Autonomic neuropathy G90.9 Active 413849923 Problem Dysthymia F34.1 Active 20205754 Problem Type 1 diabetes mellitus with hypoglycemia without coma E10.649 Active 02623130 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 68259735 Problem Type 1 diabetes mellitus with hyperglycemia E10.65 Active 23566464 Problem Migraine G43.909 Active 65778723 Problem Irritable bowel K58.9 Active 17207531 Problem Proteinuria, unspecified R80.9 Active 41962463 Problem Anemia, unspecified D64.9 Active 254273077 Problem Chronic kidney disease, unspecified N18.9 Active 714426678 Problem Restless legs syndrome G25.81 Active 868273414 ALLERGIES No Information ENCOUNTERS Encounter Location Date Diagnosis [facility] [id number] [address] March, Low back pain M54.5 [facility] [id number], [place] [address]68 March, [facility] [id number] [place] [address] 90378- 6962 Feb, [facility] [id number] [place] [address] 09953- 3289 Feb, Low back pain M54.5 [facility] [id number] [place] [address] 09257- 8778 Jan, Restless legs syndrome G25.81 [facility] [address] [address]- 4567 Jan, Low back pain M54.5 [facility] [id number] [place] [address] 61789- 5936 Jan, [facility] [id number] [place] [address] 86855- 0123 Jan, Type 1 diabetes mellitus without complications E10.9 ; Low back pain M54.5 ; Cough R05 ; Diarrhea, unspecified type R19.7 ; Migraine without aura and without status migrainosus, not intractable G43.009 and Uses control Z30.9 [facility] [id number] [place] [address] 27987- 2819 Dec, Low back pain M54.5 [facility] [id number] [place] [address] 57510- 6091 Dec, [facility] [id number] [place] [address] 43307- 7157 Nov, Well woman exam Z01.419 ; Menorrhagia with regular cycle N92.0 ; Vaginal dryness N89.8 and Migraine with aura and without status migrainosus, not intractable G43.109 [facility] [address] 81698- 7112 Nov, [facility] [id number] [place] [address] 83868- 4715 Nov, Low back pain M54.5 [facility] [address] [place] [address]- 0706 Oct, Low back pain M54.5 [facility] [address] 84990- 6563 Oct, Migraine without aura and without status migrainosus, not intractable G43.009 [facility] [address] 11113- 7535 Sep, Low back pain M54.5 [facility] [address] 95146- 8301 Sep, [facility] [address] 56766- 1021 Sep, Migraine without aura and without status migrainosus, not intractable G43.009 [facility] [address] 38751- 0697 Sep, Type 1 diabetes mellitus with hypoglycemia without coma E10.649 ; Anemia D64.9 ; Migraine without aura and without status migrainosus, not intractable G43.009 ; Chronic kidney disease, unspecified N18.9 ; Autonomic neuropathy G90.9 and Postural hypotension I95.1 [facility] [address] 25760- 6245 Sep, Low back pain M54.5 [facility] [id number] [place] [address] 11836- 4014 Aug, Low back pain M54.5 [facility] [address] 86927- 8705 Jul, [facility] [address] 95285- 5843 Jul, Low back pain M54.5 [facility] [id number] [place] [address] 21110- 0445 Jun, [facility] [address] 99477- 8531 Jun, Low back pain M54.5 [facility] [address], [place] [address]- 6157 Jun, Migraine without aura and without status migrainosus, not intractable G43.009 [facility] [id number] [place] [address] 86900- 1174 Jun, Type 1 diabetes mellitus with hyperglycemia E10.65 ; Dysthymia F34.1 and Migraine without aura and without status migrainosus, not intractable G43.009 [facility] [id number] [place] [address] 71611- 6849 Jun, [facility] [id number] [place] [address] 61544- 3757 May, Type 1 diabetes mellitus with hyperglycemia E10.65 [facility] [id number] [place] [address] 82729- 2343 May, Low back pain M54.5 [facility] [id number] [place] [address] 64755- 4202 May, Type 1 diabetes mellitus with hyperglycemia E10.65 [facility] [id number] [place] [address] 03495- 2968 Apr, [facility] [id number] [place] [address] 75124- 0879 Apr, Chronic kidney disease, stage 4 (severe) N18.4 [facility] [id number] [place] [address] 24481- 7220 Apr, Low back pain M54.5 [facility] [id number] [place] [address] 48636- 5971 March, [facility] [id number] [place] [address] 31067- 7713 March, Low back pain M54.5 [facility] [id number] [place] [address] 01182- 5928 Feb, [facility] [address], [place] [address]- 1136 Feb, [facility] [id number] [place] [address] 82705- 1862 Feb, Low back pain M54.5 [facility] [id number] [place] [address] 22280- 6740 Feb, Low back pain M54.5 [facility] [id number] [place] [address] 07454- 2384 Feb, Migraine without aura and without status migrainosus, not intractable G43.009 [facility] [id number] [place] [address] 20907- 2404 Feb, [facility] [id number] [place] [address] 93036- 2402 Jan, Low back pain M54.5 [facility] [id number] [place] [address] 82780- 3637 Jan, Type 1 diabetes mellitus without complications E10.9 ; Anemia D64.9 ; Chronic kidney disease, unspecified N18.9 ; Migraine without aura and without status migrainosus, not intractable G43.009 and Other insomnia G47.09 [facility] [id number] [place] [address] 20677- 1321 Jan, [facility] [id number] [place] [address] 34459- 1734 Dec, Low back pain M54.5 [facility] [id number] [place] [address] 78313- 3495 Dec, [facility] [id number] [place] [address] 85626- 0908 Dec, [facility] [id number] [place] [address] 10784- 1489 08 Dec, 2016 Shortness of breath R06.02 ; Type 1 diabetes mellitus without complications E10.9 and Leg swelling M79.89 [facility] [id number] [place] [address] 73894- 7462 Nov, Low back pain M54.5 [facility] [id number] [place] [address] 85771- 0037 Nov, Viral syndrome B34.9 [facility] [id number] [place] [address] 49908- 8169 Oct, Low back pain M54.5 [facility] [address] 38283- 5540 Oct, [facility] [address] 25554- 4163 Oct, Low back pain M54.5 [facility] [id number] [place] [address] 68224- 1774 Sep, [facility] [address] 48862- 3988 Sep, Fatigue, unspecified type R53.83 ; Type 1 diabetes mellitus without complications E10.9 and Anemia D64.9 [facility] [id number] [place] [address] 88162- 5262 Sep, Low back pain M54.5 [facility] [id number] [place] [address] 06090- 7549 Sep, Type 1 diabetes mellitus with hyperglycemia E10.65 [facility] [id number] [place] [address] 89966- 4224 Aug, Type 1 diabetes mellitus without complications E10.9 [facility] [id number] [place] [address] 22089- 6059 Aug, [facility] [id number] [place] [address] 33808- 6154 Aug, [facility] [id number] [place] [address] 01421- 0208 Jul, [facility] [address], [place] [address]- 8033 14 Jul, 2016 Low back pain M54.5 [facility] [id number] [place] [address] 61808- 9348 12 Jul, 2016 Hyperkalemia, diminished renal excretion E87.5 [facility] [id number] [place] [address] 79623- 2311 09 Jul, 2016 Hyperkalemia, diminished renal excretion E87.5 [facility] [id number] [place] [address] 27018- 9225 30 Jun, 2016 [facility] [id number] [place] [address] 91209- 2306 Jun, Low back pain M54.5 [facility] [id number] [place] [address] 69459- 8042 Jun, Anemia D64.9 ; Autonomic neuropathy G90.9 and Postural hypotension I95.1 [facility] [id number] [place] [address] 87963- 9649 Jun, [facility] [id number] [place] [address] 83839- 0944 May, Type 1 diabetes mellitus with complications E10.8 and Anemia D64.9 [facility] [id number] [place] [address] 63479- 9619 May, Low back pain M54.5 [facility] [id number] [place] [address] 24001- 8083 Apr, [facility] [id number] [place] [address] 51764- 6499 Apr, Low back pain M54.5 [facility] [id number] [place] [address] 61246- 6815 Apr, [facility] [id number] [place] [address] 31159- 4245 Apr, [facility] [id number] [place] [address] 25314- 2734 March, Low back pain M54.5 and Other chronic pain G89.29 [facility] [id number] [place] [address] 85544- 8797 March, Type 1 diabetes mellitus without complications E10.9 [facility] [id number] [place] [address] 08883- 9082 March, [facility] [id number] [place] [address] 99060- 4435 March, [facility] [id number] [place] [address] 61374- 5531 Feb, [facility] [id number] [place] [address] 10180- 0658 Feb, Type 1 diabetes mellitus without complications E10.9 [facility] [id number] [place] [address] 37109- 0608 Feb, Trochanteric bursitis, right hip M70.61 [facility] [id number] [place] [address] 91844- 2707 Jan, [facility] [id number] [place] [address] 59747- 9627 Jan, [facility] [id number] [place] [address] 46761- 0815 Dec, Type 1 diabetes mellitus with complications E10.8 [facility] [id number] [place] [address] 96867- 3060 Dec, [facility] [id number] [place] [address] 45430- 4816 Dec, Anemia D64.9 ; Autonomic neuropathy G90.9 and Postural hypotension I95.1 [facility] [id number] [place] [address] 06999- 4471 Dec, [facility] [id number] [place] [address] 23923- 7105 Nov, Sore throat J02.9 [facility] [address] 24794- 8555 Nov, Type 1 diabetes mellitus with complications E10.8 [facility] [id number] [place] [address] 97554- 4660 Nov, 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 ; Proteinuria, unspecified R80.9 and Chronic kidney disease, unspecified N18.9 [facility] [id number] [place] [address] 99237- 7666 Nov, [facility] [address] 20868- 6145 Nov, Trochanteric bursitis, right hip M70.61 [facility] [id number] [place] [address] 14391- 9861 Nov, [facility] [id number] [place] [address] 09660- 7896 Oct, [facility] [id number] [place] [address] 96076- 0751 Oct, [facility] [id number] [place] [address] 31753- 4392 Oct, [facility] [id number] [place] [address] 10898- 8947 Sep, [facility] [id number] [place] [address] 38443- 6679 Sep, [facility] [id number] [place] [address] 98396- 7560 Sep, Type 2 diabetes mellitus with complication E11.8 and Right hip pain M25.551 [facility] [id number] [place] [address] 06987- 8011 Sep, [facility] [id number] [place] [address] 89259- 9322 Aug, [facility] [address], [place] [address]- 5022 Aug, [facility] [address], [place] [address]- 9869 Aug, [facility] [address] 9827 Aug, Type 1 diabetes mellitus without complications E10.9 [facility] [address], [place] [address]- 1028 16 Jul, 2015 [facility] [id number] [place] [address] 52956- 3555 15 Jul, 2015 [facility] [address], [place] [address]- 7233 14 Jul, 2015 [facility] [id number] [place] [address] 78750- 9949 Jun, [facility] [address], [place] [address]- 6883 Jun, [facility] [id number] [place] [address] 11574- 6266 Jun, [facility] [address], [place] [address]- 4678 Jun, [facility] [address], [place] [address]- 2289 Jun, [facility] [address], [place] [address]- 7229 Jun, Diabetes mellitus without mention of complication, type I [ juvenile type], not stated as uncontrolled 250.01 [facility] [address] 0771 May, [facility] [address], [place] [address]- 0162 May, [facility] [address] [facility] [id number] [address]- 4191 May, [facility] [address], [place] [address]- 2643 May, Autonomic neuropathy 337.9 ; Postural hypotension 458.0 and Anemia 285.9 [facility] [place] [facility] [address], [place] [address]- 3571 May, [facility] [address] [facility] [id number] [address]- 9245 Apr, [facility] [address] [facility] [id number] [place] [address]- 9133 Apr, [facility] [id number], [place] [address]- 9962 Apr, [facility] [address], [place] [address]- 4683 Apr, [facility] [id number] [address]- 0308 Apr, [facility] [id number] [address]- 3025 March, [facility] [address], [place] [address]- 3294 March, [facility] [id number], [place] [address]- 5298 March, [facility] [place] [facility] [address] [facility] [id number], [place] [address]- 1539 March, [facility] [place] [facility] [id number]- 3770 March, [facility] [place] [facility] [id number], [place] [address]- 6312 Feb, [facility] [place] [facility] [id number] [address]- 0616 Feb, [facility] [place] [facility] [address] [facility] [id number] [place] [address]- 9646 13 Feb, 2015 [facility] [place] [facility] [address] [id number] [place] [address]- 2487 30 Jan, 2015 [facility] [place] [facility] [address] [id number] [place] [address]- 2057 Jan, [facility] [place] [facility] [address] [id number] [place] [address]- 3942 Jan, [facility] [place] [facility] [address] [id number] [place] [address]- 7458 Jan, [facility] [place] [facility] [address] [id number] [place] [address]- 1488 Jan, [facility] [place] [facility] [address] [id number] [place] [address]- 7693 Jan, [facility] [place] [facility] [address] [id number] [place] [address]- 8968 Jan, [facility] [place] [facility] [address] [id number] [place] [address]- 5853 Jan, [facility] [place] [facility] [address] [id number] [place] [address]- 1600 Jan, [facility] [place] [facility] [address] [id number] [place] [address]- 0400 Jan, [facility] [place] [facility] [address] [id number] [place] [address]- 5768 Jan, [facility] [place] [facility] [address] [id number] [place] [address]- 6554 Jan, [facility] [place] [facility] [address] [id number] [place] [address]- 3342 Jan, [facility] [place] [facility] [address] [id number] [place] [address]- 0456 Dec, [facility] [place] [facility] [address] [id number] [place] [address]- 3856 Dec, [facility] [place] [facility] [address] [id number] [place] [address]- 7105 Dec, [facility] [place] [facility] [address] [id number] [place] [address]- 8596 Dec, [facility] [place] [facility] [address] [id number] [place] [address]- 8622 Dec, [facility] [place] [facility] [address] [id number] [place] [address]- 7698 Dec, [facility] [place] [facility] [address] [id number] [place] [address] Dec, [facility] [place] [facility] [address] [id number] [place] [address] Dec, [facility] [place] [facility] [address] [id number] [place] [address] Nov, [facility] [place] [facility] [address] [id number] [place] [address] Nov, [facility] [place] [facility] [address] [id number] [place] [address] Nov, [facility] [place] [facility] [address] [id number] [place] [address] Nov, [facility] [place] [facility] [address] [id number] [place] [address] Nov, [facility] [place] [facility] [address] [id number] [address] Nov, [facility] [place] [facility] [address] [id number] [place] [address] Nov, [facility] [place] [facility] [address] [id number] [place] [address] Nov, [facility] [place] [facility] [address] [id number] [place] [address] Nov, [facility] [place] [facility] [address] [id number] [place] [address] 30 Oct, 2014 [facility] [address] [id number] [place] [address] Oct, [facility] [place] [facility] [address] [id number] [place] [address] Oct, [facility] [address] [id number] [place] [address]- [address] Oct, [facility] [place] [facility] [address] [id number] [place] [address] Oct, [facility] [address] [id number] [place] [address] Oct, [facility] [place] [facility] [address] [id number] [place] [address] Oct, [facility] [address] [id number] [place] [address] Oct, [facility] [address] [id number] [place] [address] Oct, [facility] [place] [facility] [address] [id number] [place] [address]- [address] Oct, [facility] [address] [id number] [place] [address] Oct, [facility] [place] [facility] [address] [id number] [place] [address] Oct, [facility] [place] [facility] [address] [id number] [place] [address] Oct, [facility] [place] [facility] [address] [id number] [place] [address] Oct, [facility] [place] [facility] [address] [id number] [place] [address] Sep, [facility] [place] [facility] [address] [id number] [place] [address] Sep, [facility] [place] [facility] [address] [id number] [place] [address] Sep, [facility] [place] [facility] [address] [id number] [place] [address] Sep, [facility] [place] [facility] [address] [id number] [place] [address] Aug, [facility] [place] [facility] [address] [id number] [place] [address] Aug, [facility] [place] [facility] [address] [id number] [place] [address]- [address] Aug, [facility] [place] [facility] [address] [id number] [place] [address] Aug, [facility] [place] [facility] [address] [id number] [place] [address]- [address] Aug, [facility] [place] [facility] [address] [id number] [place] [address] Aug, [facility] [place] [facility] [address] [id number] [place] [address]- [address] Aug, [facility] [place] [facility] [address] [id number] [place] [address]70 Aug, [facility] [place] [facility] [address] [id number], [place] [address] Aug, [facility] [place] [facility] [address] [id number], [place] [address]855 Aug, [facility] [place] [facility] [address] [id number] [place] [address]- 7952 Jul, [facility] [place] [facility] [address] [id number] [place] [address] 1854 Jul, [facility] [place] [facility] [address] [id number] [address] Jul, [facility] [place] [facility] [address] [id number], [place] [address] 2827 29 Jul, 2013 [facility] [place] [facility] [address] [id number] [place] [address] 2546 22 Jul, 2013 [facility] [place] [facility] [address] [id number] [place] [address] 2546 22 Jul, 2013 [facility] [place] [facility] [address] [id number] [place] [address] 2546 19 Jul, 2013 [facility] [place] [facility] [address] [id number] [place] [address] 2544 19 Jul, 2013 [facility] [place] [facility] [address] [id number] [place] [address]- 1127 11 Jul, 2013 [facility] [place] [facility] [address] [id number] [place] [address]- 5812 11 Jul, 2013 [facility] [place] [facility] [address] [id number] [place] [address]- 0220 10 Jul, 2013 [facility] [place] [facility] [address] [id number] [place] [address]- 9104 10 Jul, 2013 [facility] [place] [facility] [address] [id number] [place] [address]- 3363 08 Jul, 2013 [facility] [place] [facility] [address] [id number] [place] [address]- 4180 08 Jul, 2013 [facility] [place] [facility] [address] [id number] [place] [address] 2549 Jul, 2013 [facility] [place] [facility] [address] [id number] [place] [address]- 2549 03 Jul, 2013 [facility] [place] [facility] [address] [id number] [place] [address] 2547 02 Jul, 2013 [facility] [place] [facility] [address] [id number] [place] [address]- 0755 Jul, 2013 [facility] [place] [facility] [address] [id number] [place] [address]- 6714 29 Jun, 2014 [facility] [place] [facility] [address] [id number] [place] [address]- 8422 Jun, [facility] [place] [facility] [address] [id number] [place] [address]- 1892 Jun, [facility] [place] [facility] [address] [id number] [place] [address]- 3666 Jun, [facility] [place] [facility] [address] [id number] [place] [address]- 4070 Jun, [facility] [place] [facility] [address] [id number] [place] [address]- 9015 Jun, [facility] [place] [facility] [address] [id number] [place] [address]- 1470 Jun, [facility] [place] [facility] [address] [id number] [place] [address]- 1896 Jun, [facility] [place] [facility] [address] [id number] [place] [address]- 2699 Jun, [facility] [place] [facility] [address] [id number] [place] [address]- 1834 Jun, [facility] [place] [facility] [address] [id number] [place] [address]- 4440 Jun, [facility] [place] [facility] [address] [id number] [place] [address]- 1053 Jun, [facility] [place] [facility] [address] [id number] [place] [address]- 5105 Jun, [facility] [place] [facility] [address] [id number] [place] [address]- 9237 Jun, [facility] [place] [facility] [address] [id number] [place] [address]- 0371 Jun, [facility] [place] [facility] [address] [id number] [place] [address]- 8748 May, [facility] [place] [facility] [address] [id number] [place] [address]- 4656 May, [facility] [place] [facility] [address] [id number] [place] [address]- 9689 May, [facility] [place] [facility] [address] [id number] [place] [address]- 7363 May, [facility] [place] [facility] [address] [id number] [place] [address]- 9739 May, [facility] [place] [facility] [address] [id number] [place] [address]- 2904 May, [facility] [place] [facility] [address] [id number] [place] [address]- 6284 May, [facility] [place] [facility] [address] [id number] [place] [address]- 5351 May, [facility] [place] [facility] [address] [id number] [place] [address]- 8973 Apr, [facility] [place] [facility] [address] [id number] [place] [address]- 6058 Apr, [facility] [place] [facility] [address] [id number] [place] [address]- 3205 Apr, [facility] [place] [facility] [address] [id number] [place] [address]- 7432 Apr, [facility] [place] [facility] [address] [id number] [place] [address]- 6106 Apr, [facility] [place] [facility] [address] [id number], [place] [address]- 1895 Apr, [facility] [place] [facility] [address] [id number] [place] [address]- 9833 Apr, [facility] [place] [facility] [address] [id number] [place] [address]- 5517 Apr, [facility] [place] [facility] [address] [id number] [place] [address]- 1491 Apr, [facility] [place] [facility] [address] [id number] [place] [address]- 6655 Apr, [facility] [place] [facility] [address] [id number] [place] [address]- 9406 Apr, [facility] [place] [facility] [address] [id number] [place] [address]- 6564 Apr, [facility] [place] [facility] [address] [id number] [place] [address]- 1430 Apr, [facility] [place] [facility] [address] [id number] [place] [address]- 6221 Apr, [facility] [place] [facility] [address] [id number] [place] [address]- 4969 Apr, [facility] [place] [facility] [address] [id number] [place] [address]- 1377 Apr, [facility] [place] [facility] [address] [id number] [place] [address]- 4633 Apr, [facility] [place] [facility] [address] [id number] [place] [address]- 4253 Apr, [facility] [place] [facility] [address] [id number] [place] [address]- 4305 March, [facility] [place] [facility] [address] [id number] [place] [address]- 9471 March, [facility] [place] [facility] [address] [id number] [place] [address]- 5901 March, [facility] [place] [facility] [address] [id number] [place] [address]- 5812 March, [facility] [place] [facility] [address] [id number] [place] [address]- 7120 March, [facility] [place] [facility] [address] [id number] [place] [address]- 8425 March, [facility] [place] [facility] [address] [id number] [place] [address] March, [facility] [place] [facility] [address] [id number] [place] [address]- 8522 March, [facility] [place] [facility] [address] [id number] [place] [address]- 1014 March, [facility] [place] [facility] [address] [id number] [place] [address]- 7492 Feb, [facility] [place] [facility] [address] [id number] [place] [address]- 7945 Feb, [facility] [place] [facility] [address] [id number] [place] [address]- 3529 Feb, [facility] [place] [facility] [address] [id number] [place] [address]- 2973 Feb, [facility] [place] [facility] [address] [id number] [place] [address]- 2330 Feb, [facility] [place] [facility] [address] [id number] [place] [address]- 2249 Feb, [facility] [place] [facility] [address] [id number] [place] [address]- 8095 Feb, [facility] [place] [facility] [address] [id number] [place] [address]- 3349 Feb, [facility] [place] [facility] [address] [id number] [place] [address]- 4592 Feb, [facility] [place] [facility] [address] [id number] [place] [address]- 8014 Feb, [facility] [place] [facility] [address] [id number] [place] [address]- 6114 Feb, [facility] [place] [facility] [address] [id number] [place] [address]- 8239 Feb, [facility] [place] [facility] [address] [id number] [place] [address]- 8552 Feb, [facility] [place] [facility] [address] [id number] [place] [address]- 4659 Jan, [facility] [place] [facility] [address] [id number] [place] [address]- 2843 Jan, [facility] [place] [facility] [address] [id number] [place] [address]- 3859 Jan, [facility] [place] [facility] [address] [facility] [id number] [place] [address]- 7478 Jan, [facility] [place] [facility] [address] [id number] [place] [address]- 2621 Jan, [facility] [place] [facility] [address] [id number] [place] [address]- 5669 Jan, [facility] [place] [facility] [address] [facility] [id number] [place] [address]- 7216 Jan, [facility] [place] [facility] [address] [facility] [id number] [place] [address]- 9180 Jan, [facility] [place] [facility] [address] [id number] [place] [address]- 1194 Dec, [facility] [place] [facility] [address] [id number] [place] [address]- 1550 Dec, [facility] [place] [facility] [address] [facility] [id number] [place] [address]- 9680 Dec, [facility] [place] [facility] [address] [id number] [place] [address]- 9041 Dec, [facility] [place] [facility] [address] [facility] [id number] [place] [address]- 1734 Dec, [facility] [place] [facility] [address] [id number] [place] [address]- 1663 Dec, [facility] [place] [facility] [address] [facility] [id number] [place] 1855 Dec, [facility] [place] [facility] [address] [facility] [id number] [place] [address]- 1356 Dec, [facility] [place] [facility] [address] [id number] [place] [address]- 7256 Dec, [facility] [place] [facility] [address] [id number] [place] [address]- 5578 Dec, [facility] [place] [facility] [address] [id number] [place] [address]- 8197 Nov, [facility] [place] [facility] [address] [id number] [place] [address]- 1153 Nov, [facility] [place] [facility] [address] [id number] [place] [address]- 2271 Nov, [facility] [place] [facility] [address] [id number] [place] [address]- 6243 Nov, [facility] [place] [facility] [address] [id number] [place] [address]- 5894 Nov, [facility] [place] [facility] [address] [id number] [place] [address]- 8382 Nov, [facility] [place] [facility] [address] [id number] [place] [address]- 5713 Nov, [facility] [place] [facility] [address] [id number] [place] [address]- 8231 Nov, [facility] [place] [facility] [address] [id number] [place] [address]- 9200 Nov, [facility] [place] [facility] [address] [id number] [place] [address]- 5610 Nov, [facility] [place] [facility] [address] [id number] [place] [address]- 2989 Oct, [facility] [place] [facility] [address] [id number] [place] [address]- 3777 Oct, [facility] [place] [facility] [address] [id number] [place] [address]- 5831 Oct, [facility] [place] [facility] [address] [id number] [place] [address]- 8247 18 Oct, 2013 [facility] [place] [facility] [address] [id number] [place] [address]- 5434 17 Oct, 2013 [facility] [place] [facility] [address] [id number] [place] [address]- 7796 17 Oct, 2013 [facility] [place] [facility] [address] [id number] [place] [address]- 6875 16 Oct, 2013 [facility] [place] [facility] [address] [id number] [place] 9941 16 Oct, 2013 [facility] [place] [facility] [address] [id number] [place] [address]- 3560 Oct, [facility] [place] [facility] [address] [id number] [place] [address]- 8299 Oct, [facility] [place] [facility] [address] [id number] [place] [address]99 Oct, [facility] [place] [facility] [address] [id number] [place] [address]- 4537 04 Oct, 2013 [facility] [place] [facility] [address] [id number] [place] [address]- 3885 04 Oct, 2013 [facility] [place] [facility] [address] [id number] [place] [address]- 0348 04 Oct, 2013 [facility] [place] [facility] [address] [id number], [place] [address]- 0974 Sep, [facility] [place] [facility] [address] [id number], [place] [address]- 2513 27 Sep, 2013 [facility] [place] [facility] [address] [id number] [place]2 18 Sep, 2013 [facility] [place] [facility] [address] [id number] [place] [address]- 4488 18 Sep, 2013 [facility] [place] [facility] [address] [id number] [place] [address]- 9764 13 Sep, 2013 [facility] [place] [facility] [address] [id number] [place] [address]- 3722 13 Sep, 2012 [facility] [place] [facility] [address] [id number] [place] [address]- 6256 31 Aug, 2012 [facility] [place] [facility] [address] [id number] [place] [address]- 7211 31 Aug, 2012 [facility] [place] [facility] [address] [id number] [place] [address]- 1573 17 Aug, 2012 [facility] [place] [facility] [address] [id number] [place] [address]- 6911 17 Aug, 2012 [facility] [place] [facility] [address] [id number] [place] [address]- 4749 10 Aug, 2012 [facility] [place] [facility] [address] [id number] [place] [address]- 5419 10 Aug, 2012 [facility] [place] [facility] [address] [id number] [place] [address]- 1283 07 Aug, 2013 [facility] [place] [facility] [address] [id number] [place] [address]- 2960 02 Aug, 2013 [facility] [place] [facility] [address] [id number] [place] [address]- 0991 02 Aug, 2013 [facility] [place] [facility] [address] [id number] [place] [address]- 5204 25 Jul, 2012 [facility] [place] [facility] [address] [id number] [place] [address]- 2549 23 Sep, 2012 [facility] [place] [facility] [address] [id number] [place] [address]- 2543 21 Sep, 2012 [facility] [place] [facility] [address] [id number] [place] [address]- 2135 20 Sep, 2012 [facility] [place] [facility] [address] [id number] [place] [address]- 7994 18 Sep, 2012 [facility] [place] [facility] [address] [id number] [place] [address]- 5240 17 Sep, 2012 [facility] [place] [facility] [address] [id number] [place] [address]- 4086 16 Jul, 2012 [facility] [place] [facility] [address] [id number] [place] [address]- 7199 11 Jul, 2012 [facility] [place] [facility] [address] [id number] [place] [address]- 2894 09 Jul, 2012 [facility] [place] [facility] [address] [id number] [place] [address]- 9711 09 Jul, 2012 [facility] [place] [facility] [address] [id number] [place] [address]- 4742 06 Jul, 2012 [facility] [place] [facility] [address] [id number] [place] [address]- 6520 03 Jul, 2012 [facility] [place] [facility] [address] [id number] [place] [address]- 3614 Jun, [facility] [place] [facility] [address] [id number] [place] [address]- 3247 Jun, [facility] [place] [facility] [address] [id number] [place] [address]- 7708 Jun, [facility] [place] [facility] [address] [id number] [place] [address]- 2394 Jun, [facility] [place] [facility] [address] [id number] [place] [address]- 1029 Jun, [facility] [place] [facility] [address] [id number], [place] [address]- 9259 Jun, [facility] [place] [facility] [address] [id number] [place] [address]- 6505 Jun, [facility] [place] [facility] [address] [id number] [place] [address]- 4587 Jun, [facility] [place] [facility] [address] [id number] [place] [address]- 1527 Jun, [facility] [place] [facility] [address] [id number], [place] [address]- 8303 May, [facility] [address] [id number] [place] [address]- 4825 May, [facility] [place] [facility] [address] [id number] [place] [address]- 6936 May, [facility] [address] [id number] [place] [address]- 2869 May, [facility] [place] [facility] [address] [id number] [place] [address]- 7080 May, [facility] [place] [address] [id number] [place] [address]- 8410 May, [facility] [place] [facility] [address] [id number] [place] [address]- 2690 May, [facility] [place] [address] [id number] [place] [address]- 1537 March, [facility] [address] [id number] [place] [address]- 2530 March, [facility] [place] [address] [id number] [place] [address]- 1370 March, [facility] [place] [address] [id number] [place] [address]- 1167 Dec, [facility] [place] [facility] [address] [id number] [place] [address]- 3084 Nov, [facility] [place] [facility] [address] [id number] [place] [address]- 1486 Aug, [facility] [place] [facility] [address] [id number] [place] [address]- 1169 Aug, [facility] [place] [facility] [address] [id number] [place] [address]- 2220 Jun, [facility] [place] [facility] [address] [id number] [place] [address]- 1315 Jun, [facility] [place] [facility] [address] [id number] [place] [address] Jun, [facility] [place] [facility] [address] [id number] [place] [address] Jun, [facility] [place] [facility] [address] [id number] [place] [address] May, [facility] [place] [facility] [address] [id number] [place] [address] May, [facility] [place] [facility] [address] [id number] [place] [address] May, [facility] [place] [facility] [address] [id number] [place] [address] May, [facility] [place] [facility] [address] [id number] [place] [address] May, [facility] [place] [facility] [address] [id number] [place] [address] May, [facility] [place] [facility] [address] [id number] [place] [address] May, [facility] [place] [facility] [address] [id number] [place] [address] Apr, [facility] [place] [facility] [address] [id number] [place] [address] Apr, [facility] [place] [facility] [address] [id number] [place] [address] Apr, [facility] [place] [facility] [address] [id number] [place] [address]- [address] Apr, [facility] [place] [facility] [address] [id number] [place] [address] March, [facility] [place] [facility] [address] [id number] [place] [address] March, [facility] [place] [facility] [address] [id number] [place] [address] March, [facility] [place] [facility] [address] [id number] [place] [address] March, [facility] [place] [facility] [address] [id number] [place] [address] March, [facility] [place] [facility] [address] [id number] [place] [address] March, [facility] [place] [facility] [address] [id number] [place] [address] March, [facility] [place] [facility] [address] [id number] [place] [address] March, [facility] [place] [facility] [address] [id number] [place] [address] March, [facility] [place] [facility] [address] [id number] [place] [address] Feb, [facility] [place] [facility] [address] [id number] [place] [address] Feb, [facility] [place] [facility] [address] [id number] [place] [address] Jan, [facility] [place] [facility] [address] [id number] [place] [address] Jan, [facility] [place] [facility] [address] [id number] [place] [address]- [address] Jan, [facility] [place] [facility] [address] [id number] [place] [address] 05 Jan, 2012 [facility] [place] [facility] [address] [id number] [place] [address] Dec, [facility] [place] [facility] [address] [id number] [place] [address] 16 Dec, 2011 [facility] [place] [facility] [address] [id number] [place] [address] 15 Dec, 2011 [facility] [place] [facility] [address] [id number] [place] [address] 30 Nov, 2011 [facility] [address] [id number] [place] [address] 19 Oct, 2011 [facility] [place] [facility] [address] [id number] [place] [address] 15 Oct, 2011 [facility] [address] [id number] [place] [address] 15 Oct, 2011 [facility] [address] [id number] [place] [address] 14 Oct, 2011 [facility] [address] [id number] [place] [address] 14 Oct, 2011 [facility] [address] [id number] [place] [address] 12 Oct, 2011 [facility] [address] [id number] [place] [address] Oct, [facility] [address] [id number] [place] [address] Oct, [facility] [address] [id number] [place] [address] 22 Sep, 2011 [facility] [address] [id number] [place] [address] 17 Sep, 2011 [facility] [address] [id number] [place] [address]- [address] 14 Sep, 2011 [facility] [address] [id number] [place] [address] Sep, [facility] [place] [facility] [address] [id number] [place] [address]- 9069 10 Sep, 2011 [facility] [place] [facility] [address] [id number] [place] [address] 09 Sep, 2011 [facility] [address] [id number] [place] [address] Sep, [facility] [address] [facility] [id number] [address] Sep, [facility] [address] [id number] [address] Sep, [facility] [address] [id number] [address] Aug, [facility] [id number] [address] Jul, [facility] [address] [id number] [address] Oct, [facility] [id number] [address] Oct, [facility] [address] [id number] [address] Oct, IMMUNIZATIONS No Known Immunizations SOCIAL HISTORY Never Assessed REASON FOR VISIT Controlled Med Refill 09/26/2017 PLAN OF CARE VITAL SIGNS MEDICATIONS Medication [...]
--- OUTSIDE RECORDS SUMMARY | 2018-04-25 06:48 | XMS REPORT ---
Author Author ALAN CARABALLO [facility] Address [address] [place] [address] Care Team Providers Care Cast [employer] Name Role Phone ALAN CARABALLO Unavailable PROBLEMS Type Condition ICD9-CM Code QEX69-IV Code Onset Dates Condition Status SNOMED Code Problem Irritable bowel K58.9 Active 27433516 Problem Restless legs syndrome G25.81 Active 237192417 Problem Anemia, unspecified D64.9 Active 319624620 Problem Dysthymia F34.1 Active 97789158 Problem Chronic kidney disease, stage 4 (severe) N18.4 Active 817024400 Problem Low back pain M54.5 Active 083904640 Problem Type 1 diabetes mellitus without complications E10.9 Active 345045057 Problem Migraine without aura and without status migrainosus, not intractable G43.009 Active 515429623 Problem Other insomnia G47.09 Active 289658033 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 27179004 Problem Proteinuria, unspecified R80.9 Active 25305324 Problem Type 1 diabetes mellitus with hyperglycemia E10.65 Active 51631648 Problem Chronic kidney disease, unspecified N18.9 Active 215072070 Problem Type 1 diabetes mellitus with hypoglycemia without coma E10.649 Active 84514004 Problem Migraine G43.909 Active 80535544 ALLERGIES No Information SOCIAL HISTORY Never Assessed PLAN OF CARE VITAL SIGNS MEDICATIONS Unknown Medications RESULTS No Results PROCEDURES No Known procedures IMMUNIZATIONS No Known Immunizations MEDICAL (GENERAL) HISTORY Type Description Date Medical History Diabetic Surgical History Bilat tubal ligation Hospitalization History Diabetic multiple hospitalizations
--- OUTSIDE RECORDS SUMMARY | 2018-04-25 06:48 | XMS REPORT ---
Author Author ALAN CARABALLO 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 84910216 Problem Proteinuria, unspecified R80.9 Active 32099374 Problem Type 1 diabetes mellitus with hypoglycemia without coma E10.649 Active 95997955 Problem Type 1 diabetes mellitus with hyperglycemia E10.65 Active 57083022 Problem Low back pain M54.5 Active 859819289 Problem Type 1 diabetes mellitus without complications E10.9 Active 60875454 Problem Restless legs syndrome G25.81 Active 123922784 Problem Irritable bowel K58.9 Active 17290624 Problem Anemia, unspecified D64.9 Active 222697382 Problem Migraine G43.909 Active 09299930 ALLERGIES Unknown Allergies SOCIAL HISTORY No smoking Hx information available PLAN OF CARE VITAL SIGNS MEDICATIONS Unknown Medications RESULTS No Results PROCEDURES No Known procedures IMMUNIZATIONS No Known Immunizations
--- OUTSIDE RECORDS SUMMARY | 2018-04-25 06:48 | XMS REPORT ---
Author Author ALAN CARABALLO [facility] Address [address] [place] [address] Care Team Providers Care Licensed Funeral Director And Embalmer Name Role Phone ALAN CARABALLO Unavailable PROBLEMS Type Condition ICD9-CM Code [id number] Code Onset Dates Condition Status SNOMED Code Problem Restless legs syndrome G25.81 Active 971519882 Problem Anemia, unspecified D64.9 Active 817570632 Problem Migraine G43.909 Active 38628868 Problem Dysthymia F34.1 Active 22294113 Problem Chronic kidney disease, stage 4 (severe) N18.4 Active 050126549 Problem Low back pain M54.5 Active 850364644 Problem Type 1 diabetes mellitus without complications E10.9 Active 031533389 Problem Migraine without aura and without status migrainosus, not intractable G43.009 Active 320579814 Problem Other insomnia G47.09 Active 102437977 Problem Chronic kidney disease, unspecified N18.9 Active 018047494 Problem Proteinuria, unspecified R80.9 Active 96862973 Problem Type 1 diabetes mellitus with hypoglycemia without coma E10.649 Active 73071206 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
--- OUTSIDE RECORDS SUMMARY | 2018-04-25 06:48 | XMS REPORT ---
Author Author PRECIOUS OLMEDO [facility] Address Unknown Phone Unavailable Care Team Providers Care Database Admin Name Role Phone PRECIOUS OLMEDO Unavailable Allergies No Known Allergies Problems Problem [...] Problem Restless legs syndrome G25.81 Active Assessment Postural hypotension I95.1 Active Assessment Autonomic neuropathy G90.9 Active Assessment Anemia D64.9 Active Problem Type 1 diabetes mellitus with hypoglycemia without coma E10.649 Active Medications Medication Code System Code Instructions Start Date End Date Status Dosage Geoff Contour Next Test [facility] [id number] TEST 10 TIMES A DAY Fioricet with Codeine ND 0 54-210-81-30 mg February 11, 2015 take 1 capsule by Oral route as needed not to exceed 6 capsules per 24hrs every 4 hours Ferrous Sulfate [facility] [address]-95 65 mg Orally Once a day Dec 01, 2014 by Oral route 325mg QD by Dr Jensen Brooks [facility] [address]-48 100 UNIT/ML Subcutaneous per insulin pump March as directed Requip [facility] 74838833952 0.25 MG 1 tablet by Oral route 1 time per day Tramadol HCl [facility] [address]-04 50 MG Orally 1 tablet in the morning and 2 tablets in the evening March 23, 2015 1 tablet Uowabseodf-DFYZ-Yfav-Cod [facility] [address]-90 27-474-53-30 MG TAKE ONE CAPSULE BY MOUTH EVERY 4 HOURS NEEDED (NOT TO EXCEED 6 CAPSULES/24 HOURS) fludrocortisone ND 0 0.1 mg Dec 02, 2013 take 1/2 tablet by Oral route 1 time per day Bentyl [facility] [address]-43 20 MG Orally Four times a day PRN 1 tablet Dma-Jutprdxg-Dbkf-FA ND 0 65-1 MG Orally not defined Vitamin D (Cholecalciferol) [facility] 31468-[address]83 400 UNIT Orally Once a day 1 capsule Celexa [facility] 71672568812 10 MG 1 tablet by Oral route 1 time per day Aranesp (Alb Free) SureClick [facility] 0 not defined Procedures Procedure Coding System Code Date [facility] VISIT ESTABLISHED PATIENT CPT-4 G0467 Jul 04, 2016 Office Visit, Est Pt., Level 3 CPT-4 87063 Jul 04, 2016 MEASURE BLOOD OXYGEN LEVEL CPT-4 96398 Jul 04, 2016 Vital Signs Date/Time: Jul 04, 2016 Cardiac Monitoring Heart Rate 70 bpm Weight 124 lbs Height 62 in BMI 22.68 Index Oximetry 100 % Blood Pressure Diastolic 62 mmHg Blood Pressure Systolic 104 mmHg Results No Known Results Summary Purpose [employer] Submission
--- OUTSIDE RECORDS SUMMARY | 2018-04-25 06:48 | XMS REPORT ---
Author Author ALAN CARABALLO Organization [employer] Address Unknown Phone Unavailable Care Team Providers Care Emery Wheel Molder Name Role Phone ALAN CARABALLO CP Unavailable [...] Active Problem Peritonsillar abscess 475 Active Medications No Known Medications Results No Known Results Summary Purpose [employer] Submission
--- OUTSIDE RECORDS SUMMARY | 2018-04-25 06:48 | XMS REPORT ---
Author Author ALAN CARABALLO [facility] Address Unknown Phone Unavailable Care Team Providers Care Agricultural Technical Officer Name Role Phone ALAN CARABALLO CP Unavailable Allergies, Adverse Reactions, Alerts Substance Reaction Event Type Lisinopril Info Not Available Drug Allergy Gabapentin Info Not Available Drug Allergy Niacin 500 Mg Tablet Info Not Available Non Drug Allergy Cozaar 25 Mg Tablet Info [...] D64.9 Active Assessment Type 1 diabetes mellitus with complications E10.8 Active Problem Type 1 diabetes mellitus with hypoglycemia without coma E10.649 Active Medications Medication Code System Code Instructions Start Date End Date Status Dosage Aranesp (Alb Free) SureClick NDC 0 not defined Gmkvvogfbh-FHZF-Pind-Cod [facility] [address]-73 69-230-81-30 MG TAKE ONE CAPSULE BY MOUTH EVERY 4 HOURS NEEDED (NOT TO EXCEED 6 CAPSULES/24 HOURS) Requip [facility] 72784295688 0.25 MG 1 tablet by Oral route 1 time per day Djm-Mgepjpia-Ntwh-FA NDC 0 65-1 MG Orally not defined Geoff Contour Next Test [facility] [id number] TEST 10 TIMES A DAY Vitamin D (Cholecalciferol) [facility] 595[address]-92112 400 UNIT Orally Once a day 1 capsule Tramadol HCl [facility] [address]-48 50 MG Orally 1 tablet in the morning and 2 tablets in the evening March 23, 2015 1 tablet Bentyl [facility] [address]-49 20 MG Orally Four times a day PRN 1 tablet NovoLog [facility] [address]-86 100 UNIT/ML Subcutaneous per insulin pump March as directed Celexa [facility] 49909606791 10 MG 1 tablet by Oral route 1 time per day Ferrous Sulfate [facility] [address]-14 65 mg Orally Once a day Dec 01, 2014 by Oral route 325mg QD by Dr Styles fludrocortisone NDC 0 0.1 mg Dec 02, 2013 take 1/2 tablet by Oral route 1 time per day Fioricet with Codeine NDC 0 87-604-82-30 mg February 11, 2015 take 1 capsule by Oral route as needed not to exceed 6 capsules per 24hrs every 4 hours Procedures Procedure Coding System Code Date Office Visit, Est Pt., Level 3 CPT-4 28889 June 20, 2016 GLYCATED HEMOGLOBIN TEST CPT-4 38507 June 20, 2016 [facility] VISIT ESTABLISHED PATIENT CPT-4 G0467 June 20, 2016 Vital Signs Date/Time: June 20, 2016 Cardiac Monitoring Heart Rate 72 bpm Weight 124.7 lbs Height 62 in BMI 22.81 Index Blood Pressure Diastolic 72 mmHg Blood Pressure Systolic 121 mmHg Results No Known Results Summary Purpose [employer]ClinicalWorks Submission
--- OUTSIDE RECORDS SUMMARY | 2018-04-25 06:48 | XMS REPORT ---
Author Author ALAN CARABALLO [facility]Clinical[employer] Address Unknown Phone Unavailable Care Team Providers Care Manufacturing Maintenance Technician Name Role Phone ALAN CARABALLO CP Unavailable [...]
--- OUTSIDE RECORDS SUMMARY | 2018-04-25 06:49 | XMS REPORT ---
Author Author ALAN CARABALLO [facility] Address [address] [place] [address] Care Team Providers Care Mlt Name Role Phone ALAN CARABALLO Unavailable PROBLEMS Type Condition ICD9-CM Code TZM11-OB Code Onset Dates Condition Status SNOMED Code Problem Type 1 diabetes mellitus without complications E10.9 Active 849598329 Problem Other insomnia G47.09 Active 865070105 Problem Low back pain M54.5 Active 203031084 Problem Migraine with aura and without status migrainosus, not intractable G43.109 Active 3030220 Problem Menorrhagia with regular cycle N92.0 Active 963272117 Problem Chronic kidney disease, stage 4 (severe) N18.4 Active 263717946 Problem Migraine without aura and without status migrainosus, not intractable G43.009 Active 595132637 Problem Autonomic neuropathy G90.9 Active 474925307 Problem Dysthymia F34.1 Active 38102758 Problem Type 1 diabetes mellitus with hypoglycemia without coma E10.649 Active 97129968 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 34665003 Problem Type 1 diabetes mellitus with hyperglycemia E10.65 Active 03007903 Problem Migraine G43.909 Active 57665171 Problem Irritable bowel K58.9 Active 41031217 Problem Proteinuria, unspecified R80.9 Active 58088327 Problem Anemia, unspecified D64.9 Active 277088872 Problem Chronic kidney disease, unspecified N18.9 Active 584303491 Problem Restless legs syndrome G25.81 Active 332462993 ALLERGIES No Information ENCOUNTERS Encounter Location Date Diagnosis [facility] [address] [id number], [place] [address] March, [facility] [address] [facility] [id number], [place] [address] Feb, [facility] [id number] [place] [address] 92030- 8252 Feb, Low back pain M54.5 [place] [address] 8[address]39- 7242 Jan, Restless legs syndrome G25.81 [facility] [address] 83307- 9406 Jan, Low back pain M54.5 [place] [address] 43612- 9710 Jan, [facility] [address] 98364- 6224 Jan, Type 1 diabetes mellitus without complications E10.9 ; Low back pain M54.5 ; Cough R05 ; Diarrhea, unspecified type R19.7 ; Migraine without aura and without status migrainosus, not intractable G43.009 and Uses control Z30.9 [place] [address] 02508- 9237 Dec, Low back pain M54.5 [place] [address] 82177- 9863 Dec, [facility] [id number] [place] [address] 08154- 4552 Nov, Well woman exam Z01.419 ; Menorrhagia with regular cycle N92.0 ; Vaginal dryness N89.8 and Migraine with aura and without status migrainosus, not intractable G43.109 [facility] [id number] [place] [address] 95202- 6249 Nov, [place] [address] 39351- 9886 Nov, Low back pain M54.5 [facility] [place] [id number] [place] [address] 29468- 9758 Oct, Low back pain M54.5 [place] [address] [place] [address]- 8860 Oct, Migraine without aura and without status migrainosus, not intractable G43.009 [facility] [id number] [place] [address] 36014- 5124 Sep, Low back pain M54.5 [facility] [address] 34423- 2223 Sep, [facility] [address] 86419- 3855 Sep, Migraine without aura and without status migrainosus, not intractable G43.009 [facility] [address] 28562- 0870 Sep, Type 1 diabetes mellitus with hypoglycemia without coma E10.649 ; Anemia D64.9 ; Migraine without aura and without status migrainosus, not intractable G43.009 ; Chronic kidney disease, unspecified N18.9 ; Autonomic neuropathy G90.9 and Postural hypotension I95.1 [facility] [id number] [place] [address] 02714- 7404 Sep, Low back pain M54.5 [facility] [address] 85010- 8593 Aug, Low back pain M54.5 [facility] [id number] [place] [address] 05338- 4364 14 Jul, 2017 [facility] [id number] [place] [address] 44551- 8844 Jul, Low back pain M54.5 [facility] [id number] [place] [address] 84828- 8953 Jun, [facility] [id number] [place] [address] 66982- 3267 Jun, Low back pain M54.5 [facility] [id number] [place] [address] 78324- 6942 Jun, Migraine without aura and without status migrainosus, not intractable G43.009 [facility] [id number] [place] [address] 44619- 3941 Jun, Type 1 diabetes mellitus with hyperglycemia E10.65 ; Dysthymia F34.1 and Migraine without aura and without status migrainosus, not intractable G43.009 [facility] [id number] [place] [address] 50676- 0412 Jun, [facility] [id number] [place] [address] 72897- 2800 May, Type 1 diabetes mellitus with hyperglycemia E10.65 [facility] [id number] [place] [address] 78183- 9185 May, Low back pain M54.5 [facility] [id number] [place] [address] 55401- 6608 May, Type 1 diabetes mellitus with hyperglycemia E10.65 [facility] [id number] [place] [address] 33996- 0708 Apr, [facility] [id number] [place] [address] 13669- 5057 Apr, Chronic kidney disease, stage 4 (severe) N18.4 [facility] [id number] [place] [address] 80007- 2185 Apr, Low back pain M54.5 [facility] [id number] [place] [address] 11401- 0400 March, [facility] [id number] [place] [address] 49670- 0019 March, Low back pain M54.5 [facility] [id number] [place] [address] 40356061- 7046 Feb, [facility] [address] [id number], [place] [address]- 4258 Feb, [facility] [id number] [place] [address] 32968- 3749 Feb, Low back pain M54.5 [facility] [id number] [place] [address] 23746- 6954 Feb, Low back pain M54.5 [facility] [id number] [place] [address] 67515- 0025 Feb, Migraine without aura and without status migrainosus, not intractable G43.009 [facility] [id number] [place] [address] 40279- 9472 Feb, [facility] [id number] [place] [address] 78487- 2424 Jan, Low back pain M54.5 [facility] [id number] [place] [address] 32266- 3269 Jan, Type 1 diabetes mellitus without complications E10.9 ; Anemia D64.9 ; Chronic kidney disease, unspecified N18.9 ; Migraine without aura and without status migrainosus, not intractable G43.009 and Other insomnia G47.09 [facility] [id number] [place] [address] 15129- 3663 Jan, [facility] [id number] [place] [address] 34803- 7527 Dec, Low back pain M54.5 [facility] [id number] [place] [address] 56927- 8137 Dec, [facility] [id number] [place] [address] 82648- 2742 Dec, [facility] [id number] [place] [address] 13618- 6207 08 Dec, 2016 Shortness of breath R06.02 ; Type 1 diabetes mellitus without complications E10.9 and Leg swelling M79.89 [facility] [id number] [place] [address] 02926- 4621 Nov, Low back pain M54.5 [facility] [address] [place] [address] 13950- 5945 Nov, Viral syndrome B34.9 [facility] [id number] [place] [address] 17295- 6686 Oct, Low back pain M54.5 [facility] [id number] [place] [address] 75630- 5094 Oct, [facility] [id number] [place] [address] 76281- 1699 Oct, Low back pain M54.5 [facility] [id number] [place] [address] 32499- 4998 Sep, [facility] [id number] [place] [address] 51849- 4170 Sep, Fatigue, unspecified type R53.83 ; Type 1 diabetes mellitus without complications E10.9 and Anemia D64.9 [facility] [id number] [place] [address] 98734- 7338 Sep, Low back pain M54.5 [facility] [id number] [place] [address] 26159- 6933 Sep, Type 1 diabetes mellitus with hyperglycemia E10.65 [facility] [id number] [place] [address] 92045- 7182 Aug, Type 1 diabetes mellitus without complications E10.9 [facility] [id number] [place] [address] 80882- 2291 Aug, [facility] [id number] [place] [address] 84793- 8780 Aug, [facility] [id number] [place] [address] 71249- 6083 Jul, [facility] [id number] [place] [address] 38254- 8722 14 Jul, 2016 Low back pain M54.5 [facility] [id number] [place] [address] 32907- 2388 Jul, Hyperkalemia, diminished renal excretion E87.5 [facility] [id number] [place] [address] 52015- 7512 Jul, Hyperkalemia, diminished renal excretion E87.5 [facility] [id number] [place] [address] 85924- 3058 Jun, [facility] [id number] [place] [address] 17471- 6994 Jun, Low back pain M54.5 [facility] [id number] [place] [address] 70052- 7308 Jun, Anemia D64.9 ; Autonomic neuropathy G90.9 and Postural hypotension I95.1 [place] [id number] [place] [address] 69490- 8661 Jun, [facility] [id number] [place] [address] 41553- 0074 May, Type 1 diabetes mellitus with complications E10.8 and Anemia D64.9 [facility] [id number] [place] [address] 86326- 8826 May, Low back pain M54.5 [facility] [id number] [place] [address] 96541- 6414 Apr, [facility] [id number] [place] [address] 62005- 7061 Apr, Low back pain M54.5 [facility] [id number] [place] [address] 08172- 3431 Apr, [facility] [id number] [place] [address] 55075- 8469 Apr, [facility] [id number] [place] [address] 41091- 3925 March, Low back pain M54.5 and Other chronic pain G89.29 [facility] [address] [place] [address] 50083- 4623 March, Type 1 diabetes mellitus without complications E10.9 [facility] [id number] [place] [address] 36986- 0209 March, [facility] [id number] [place] [address] 26570- 5369 March, [facility] [id number] [place] [address] 40888- 5836 Feb, [facility] [id number] [place] [address] 15717- 6776 Feb, Type 1 diabetes mellitus without complications E10.9 [facility] [id number] [place] [address] 01651- 2883 Feb, Trochanteric bursitis, right hip M70.61 [facility] [id number] [place] [address] 66409- 6766 Jan, [facility] [id number] [place] [address] 77828- 0982 Jan, [facility] [id number] [place] [address] 43964- 5441 Dec, Type 1 diabetes mellitus with complications E10.8 [facility] [id number] [place] [address] 73320- 5028 Dec, [facility] [id number] [place] [address] 06731- 3806 Dec, Anemia D64.9 ; Autonomic neuropathy G90.9 and Postural hypotension I95.1 [facility] [id number] [place] [address] 08953- 0559 Dec, [facility] [id number] [place] [address] 07777- 6267 Nov, Sore throat J02.9 [facility] [id number] [place] [address] 49282- 7620 Nov, Type 1 diabetes mellitus with complications E10.8 [facility] [id number] [place] [address] 18463- 4766 18 Nov, 2015 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 ; Proteinuria, unspecified R80.9 and Chronic kidney disease, unspecified N18.9 [facility] [address] 63510- 5985 14 Nov, 2015 [facility] [address] 22684- 4675 Nov, Trochanteric bursitis, right hip M70.61 [place] [address] 79802- 6238 Nov, [facility] [id number] [place] [address] 01335- 2824 30 Oct, 2015 [facility] [address] 00971- 8786 Oct, [facility] [id number] [place] [address] 04595- 1951 09 Oct, 2015 [facility] [id number] [place] [address] 24844- 1671 24 Sep, 2015 [facility] [id number] [place] [address] 97390- 5724 Sep, [facility] [id number] [place] [address] 20591- 3129 Sep, Type 2 diabetes mellitus with complication E11.8 and Right hip pain M25.551 [facility] [id number] [place] [address] 35188- 0024 Sep, [facility] [id number] [place] [address] 88234- 2017 26 Aug, 2015 [facility] [id number] [place] [address] 51039- 0840 Aug, [facility] [address], [place] [address]- 0967 Aug, [facility] [id number] [place] [address] 38801- 5276 Aug, Type 1 diabetes mellitus without complications E10.9 [facility] [id number] [address]- 5435 16 Jul, 2015 [facility] [id number] [place] [address] 32980- 7199 15 Jul, 2015 [facility] [id number] [place] [address] 25241- 1412 Jul, [facility] [id number] [place] [address] 09871- 2707 Jun, [facility] [id number] [place] [address] 52218- 7327 Jun, [facility] [address], [place] [address]- 7169 Jun, [facility] [address] [place] [address] 52444- 7454 Jun, [facility] [address], [place] [address]- 3704 Jun, [facility] [address], [place] [address]- 8267 Jun, Diabetes mellitus without mention of complication, type I [ juvenile type], not stated as uncontrolled 250.01 [facility] [address], [place] [address]- 1769 May, [facility] [id number] [place] [address] 89830- 7834 May, [facility] [address], [place] [address]- 6414 May, [facility] [id number] [address]- 7242 May, Autonomic neuropathy 337.9 ; Postural hypotension 458.0 and Anemia 285.9 [facility] [place] [facility] [id number] [address]- 6996 May, [facility] [place] [facility] [address], [place] [address]- 1954 Apr, [facility] [place] [facility] [id number] [place] [address] 39224- 1950 Apr, [facility] [place] [facility] [address], [place] [address]- 2482 Apr, [facility] [place] [facility] [id number] [place] [address] 40279- 3472 Apr, [facility] [place] [facility] [id number] [place] [address] 54313- 5603 Apr, [facility] [address] [place] [address] 54740- 7422 March, [facility] [place] [facility] [address], [place] [address]- 2760 March, [facility] [address], [place] [address]- 5635 March, [facility] [place] [facility] [address] [address]- 6535 March, [facility] [place] [facility] [address], [place] [address]- 3562 March, [facility] [place] [facility] [address], [place] [address]- 9460 Feb, [facility] [place] [facility] [address], [place] [address]- 9682 Feb, [facility] [place] [facility] [address], [place] [address]- 1878 Feb, [facility] [place] [facility] [address], [place] [address]- 3828 Jan, [facility] [place] [facility] [address] [id number] [place] [address]- 0385 Jan, [facility] [place] [facility] [address] [id number] [place] [address]- 7476 Jan, [facility] [place] [facility] [address] [id number] [place] [address]- 3498 Jan, [facility] [place] [facility] [address] [id number] [place] [address]- 1618 Jan, [facility] [place] [facility] [address] [id number] [place] [address]- 0334 Jan, [facility] [place] [facility] [address] [id number] [place] [address]- 7889 Jan, [facility] [place] [facility] [address] [facility] [id number] [place] [address]- 4371 Jan, [facility] [place] [facility] [address] [facility] [id number] [place] [address]- 1484 Jan, [facility] [place] [facility] [address] [facility] [id number] [place] [address]- 1165 Jan, [facility] [place] [facility] [address] [facility] [id number] [place] [address]- 0011 Jan, [facility] [place] [facility] [address] [id number] [place] [address]- 5326 Jan, [facility] [place] [facility] [address] [facility] [id number] [place] [address]- 7065 Jan, [facility] [place] [facility] [address] [id number] [place] [address]- 3396 Dec, [facility] [place] [facility] [address] [id number] [place] [address]- 3045 Dec, [facility] [place] [facility] [address] [facility] [id number] [place] [address]- 4394 Dec, [facility] [place] [facility] [address] [id number] [place] [address]- 7389 Dec, [facility] [place] [facility] [address] [id number] [place] [address]- 4852 Dec, [facility] [place] [facility] [address] [id number] [place] [address]- 2069 Dec, 2014 [facility] [place] [facility] [address] [id number] [place] [address]- 9912 Dec, [facility] [place] [facility] [address] [id number] [place] [address]- 5419 Dec, [facility] [place] [facility] [address] [id number] [place] [address]- 5389 Nov, [facility] [place] [facility] [address] [id number] [place] [address]- 4327 Nov, [facility] [place] [facility] [address] [id number] [place] [address]- 2816 Nov, [facility] [place] [facility] [address] [id number] [place] [address]- 2144 Nov, [facility] [place] [facility] [address] [id number] [place] [address]- 3006 Nov, [facility] [place] [facility] [address] [facility] [id number], [place] [address]- 6609 Nov, [facility] [place] [facility] [address] [id number], [place] [address]- 6042 Nov, [facility] [place] [facility] [address] [id number] [place] [address]- 7198 Nov, [facility] [place] [facility] [address] [id number] [place] [address]- 7674 Nov, [facility] [place] [facility] [address] [id number], [place] [address]- 1133 Oct, [facility] [place] [facility] [address] [id number], [place] [address]- 4540 Oct, [facility] [place] [facility] [address] [id number] [place] [address]- 2076 Oct, [facility] [place] [facility] [address] [id number] [place] [address]- 0866 Oct, [facility] [place] [facility] [address] [facility] [id number] [place] [address]- 4307 Oct, [facility] [place] [facility] [address] [id number] [place] [address] Oct, [facility] [place] [facility] [address] [id number] [place] [address] Oct, [facility] [place] [facility] [address] [id number] [place] [address] Oct, [facility] [place] [facility] [address] [facility] [id number] [place] [address] Oct, [facility] [place] [facility] [address] [id number] [place] [address] Oct, [facility] [place] [facility] [address] [id number] [place] [address] Oct, [facility] [place] [facility] [address] [facility] [id number] [place] [address] Oct, [facility] [place] [facility] [address] [id number] [place] [address] Oct, [facility] [place] [facility] [address] [id number] [place] [address] Oct, [facility] [place] [facility] [address] [id number] [place] [address] Sep, [facility] [place] [facility] [address] [id number] [place] [address] Sep, [facility] [place] [facility] [address] [facility] [id number] [place] [address] Sep, [facility] [place] [facility] [address] [id number] [place] [address] Sep, [facility] [place] [facility] [address] [id number] [place] [address] Aug, [facility] [place] [facility] [address] [id number] [place] [address] Aug, [facility] [place] [facility] [address] [id number] [place] [address] Aug, [facility] [place] [facility] [address] [id number] [place] [address] Aug, [facility] [place] [facility] [address] [id number] [place] [address] Aug, [facility] [place] [facility] [address] [id number] [place] [address] Aug, [facility] [place] [facility] [address] [id number] [place] [address] Aug, [facility] [place] [facility] [address] [id number] [place] [address] Aug, [facility] [place] [facility] [address] [id number] [place] [address]- [address]99 Aug, [facility] [place] [facility] [address] [id number] [place] [address] Aug, [facility] [place] [facility] [address] [id number] [place] [address]- [address] 29 Jul, 2013 [facility] [place] [facility] [address] [id number] [place] [address] 29 Jul, 2013 [facility] [place] [facility] [address] [id number] [place] [address]- [address] 29 Jul, 2013 [facility] [place] [facility] [address] [id number] [place] [address]- [address] 29 Jul, 2013 [facility] [place] [facility] [address] [id number] [place] [address]- [address] 22 Jul, 2013 [facility] [place] [facility] [address] [id number] [place] [address]- 408[address] 22 Jul, 2013 [facility] [place] [facility] [address] [id number] [place] [address]- [address] 19 Jul, 2013 [facility] [place] [facility] [address] [id number] [place] [address]- [address] 19 Jul, 2013 [facility] [place] [facility] [address] [id number] [place] [address] 11 Jul, 2013 [facility] [place] [facility] [address] [id number] [place] [address]- 74[address] 11 Jul, 2013 [facility] [place] [facility] [address] [id number] [place] [address]44 10 Jul, 2013 [facility] [place] [facility] [address] [id number] [place] [address]- [address] 10 Jul, 2013 [facility] [place] [facility] [address] [id number] [place] [address] 08 Jul, 2013 [facility] [place] [facility] [address] [id number] [place] [address] 08 Jul, 2013 [facility] [place] [facility] [address] [id number] [place] [address]- [address] 03 Jul, 2013 [facility] [place] [facility] [address] [id number] [place] [address]- [address] 03 Jul, 2013 [facility] [place] [facility] [address] [id number], [place] [address] Jul, 2013 [facility] [place] [facility] [address] [id number] [place] [address] Jul, 2013 [facility] [place] [facility] [address] [id number] [place] [address]- 3961 29 Jun, 2014 [facility] [place] [facility] [address] [id number] [place] [address] Jun, [facility] [place] [facility] [address] [id number] [place] [address] 8[address] Jun, [facility] [place] [facility] [address] [id number] [place] [address] 8561 Jun, [facility] [place] [facility] [address] [id number] [place] [address] 1455 Jun, [facility] [place] [facility] [address] [id number] [place] [address] 5522 Jun, [facility] [place] [facility] [address] [id number] [place] [address] 9955 Jun, [facility] [place] [facility] [address] [id number] [place] [address] 8084 Jun, [facility] [place] [facility] [address] [id number] [place] [address] 8155 Jun, [facility] [place] [facility] [address] [id number] [place] [address] 6557 Jun, [facility] [place] [facility] [address] [id number] [place] [address] 6298 Jun, [facility] [place] [facility] [address] [id number] [place] [address] 3462 Jun, [facility] [place] [facility] [address] [id number] [place] [address]- 3530 Jun, [facility] [place] [facility] [address] [id number] [place] [address]- 8883 Jun, [facility] [place] [facility] [address] [id number] [place] [address]- 2900 Jun, [facility] [place] [facility] [address] [id number] [place] [address]- 3845 May, [facility] [place] [facility] [address] [id number] [place] [address]- 1120 May, [facility] [place] [facility] [address] [id number] [place] [address]- 7683 May, [facility] [place] [facility] [address] [id number] [place] [address]- 4486 May, 2013 [facility] [place] [facility] [address] [id number] [place] [address]- 5846 May, [facility] [place] [facility] [address] [id number] [place] [address]- 5211 May, [facility] [place] [facility] [address] [id number] [place] [address]- 5573 May, [facility] [place] [facility] [address] [id number] [place] [address] 1300 May, [facility] [place] [facility] [address] [id number] [place] [address]- 7298 Apr, [facility] [place] [facility] [address] [id number] [place] [address]- 6487 Apr, [facility] [place] [facility] [address] [id number] [place] [address]- 5415 Apr, [facility] [place] [facility] [address] [id number] [place] [address]- 9422 Apr, [facility] [place] [facility] [address] [id number] [place] [address]- 3272 Apr, [facility] [place] [facility] [address] [id number] [place] [address]- 6177 Apr, [facility] [place] [facility] [address] [id number] [place] [address]- 9979 Apr, [facility] [place] [facility] [address] [id number] [place] [address]- 8886 Apr, [facility] [place] [facility] [address] [id number] [place] [address]- 6795 Apr, [facility] [place] [facility] [address] [id number] [place] [address]- 9285 16 Apr, 2014 [facility] [place] [facility] [address] [id number] [place] [address]- 5750 Apr, [facility] [place] [facility] [address] [id number] [place] [address]- 2320 Apr, [facility] [place] [facility] [address] [id number] [place] [address]- 0808 Apr, [facility] [place] [facility] [address] [id number] [place] [address]- 1976 Apr, [facility] [place] [facility] [address] [id number] [place] [address]- 5374 Apr, [facility] [place] [facility] [address] [id number] [place] [address]- 8593 Apr, [facility] [place] [facility] [address] [id number] [place] [address]- 5769 Apr, [facility] [place] [facility] [address] [id number] [place] [address]- 4123 Apr, [facility] [place] [facility] [address] [id number] [place] [address]- 1522 March, [facility] [place] [facility] [address] [id number] [place] [address]- 2787 March, [facility] [place] [facility] [address] [id number] [place] [address]- 3568 March, [facility] [place] [facility] [address] [id number] [place] [address]- 6720 March, [facility] [place] [facility] [address] [id number] [place] [address]- 6675 March, [facility] [place] [facility] [address] [id number] [place] [address]- 5023 March, [facility] [place] [facility] [address] [id number] [place] [address]- 0753 March, [facility] [place] [facility] [address] [id number] [place] [address]- 8207 March, [facility] [place] [facility] [address] [id number] [place] [address]- 0018 March, [facility] [address] [id number] [place] [address]- 8047 Feb, [facility] [place] [facility] [address] [id number] [place] [address]- 9756 Feb, [facility] [address] [id number] [place] [address]- 8617 Feb, [facility] [place] [facility] [address] [id number] [place] [address]- 1173 Feb, [facility] [address] [id number] [place] [address]- 8877 Feb, [facility] [address] [id number] [place] [address]- 4692 Feb, [facility] [place] [facility] [address] [id number] [place] [address]- 9259 Feb, [facility] [address] [id number] [place] [address]- 5457 Feb, [facility] [place] [facility] [address] [id number] [place] [address]- 0878 Feb, [facility] [address] [id number] [place] [address]- 9112 Feb, [facility] [place] [facility] [address] [id number] [place] [address]- 0149 Feb, [facility] [place] [facility] [address] [id number] [place] [address]- 8448 Feb, [facility] [place] [facility] [address] [id number] [place] [address]- 7985 Feb, [facility] [place] [facility] [address] [id number] [place] [address]- 6378 Jan, [facility] [place] [facility] [address] [id number] [place] [address]- 8035 Jan, [facility] [place] [facility] [address] [id number] [place] [address]- 5354 Jan, [facility] [place] [facility] [address] [id number] [place] [address]- 5170 Jan, [facility] [place] [facility] [address] [id number] [place] [address] Jan, [facility] [place] [facility] [address] [id number] [place] [address]- 8221 Jan, [facility] [place] [facility] [address] [id number] [place] [address]- 8200 Jan, [facility] [place] [facility] [address] [id number] [place] [address]- 6766 Jan, [facility] [place] [facility] [address] [id number] [place] [address]- 7597 Dec, [facility] [place] [facility] [address] [id number] [place] [address]- 5759 Dec, [facility] [place] [facility] [address] [id number] [place] [address]- 4703 Dec, [facility] [place] [facility] [address] [id number] [place] [address]- 2915 Dec, [facility] [place] [facility] [address] [id number] [place] [address]- 1500 Dec, [facility] [place] [facility] [address] [id number] [place] [address]- 3584 Dec, [facility] [place] [facility] [address] [id number] [place] [address]- 3562 Dec, [facility] [place] [facility] [address] [id number] [place] [address] Dec, [facility] [place] [facility] [address] [id number] [place] [address]- 3817 Dec, [facility] [place] [facility] [address] [id number] [place] [address]- 1756 Dec, [facility] [address] [id number] [place] [address]- 0004 Nov, [facility] [address] [id number] [place] [address]- 3316 Nov, [facility] [address] [id number] [place] [address]- 6198 Nov, [facility] [address] [id number] [place] [address]- 0744 Nov, [facility] [address] [id number] [place] [address]- 2031 Nov, [facility] [address] [id number] [place] [address]- 4024 Nov, [facility] [address] [id number] [place] [address]- 3979 Nov, [facility] [address] [id number] [place] [address]- 7601 Nov, [facility] [address] [id number] [place] [address]- 8062 Nov, [facility] [address] [id number] [place] [address]- 1901 Nov, [facility] [address] [id number] [place] [address]- 6417 Oct, [facility] [address] [id number] [place] [address]- 9883 Oct, [facility] [place] [facility] [address] [id number] [place] [address]- 9240 Oct, [facility] [address] [id number] [place] [address]- 2976 Oct, [facility] [address] [id number] [place] [address]- 0092 17 Oct, 2013 [facility] [address] [id number] [place] 4024 17 Oct, 2013 [facility] [place] [facility] [address] [id number] [place] [address]- 1608 16 Oct, 2013 [facility] [place] [facility] [address] [id number] [place] [address]- 4127 16 Oct, 2013 [facility] [place] [facility] [address] [id number] [place] [address]- 4289 Oct, [facility] [place] [facility] [address] [id number] [place] 9934 Oct, [facility] [place] [facility] [address] [id number] [place] [address]- 0226 Oct, [facility] [place] [facility] [address] [id number] [place] [address]- 9502 Oct, [facility] [place] [facility] [address] [id number] [place] [address]- 1154 04 Oct, 2013 [facility] [place] [facility] [address] [id number] [place] [address]- 9444 Oct, [facility] [place] [facility] [address] [id number] [place] [address]- 6424 27 Sep, 2013 [facility] [place] [facility] [address] [id number] [place] [address]- 3935 27 Sep, 2013 [facility] [place] [facility] [address] [id number], [place] [address]- 3895 18 Sep, 2013 [facility] [place] [facility] [address] [id number] [place] [address]- 3769 18 Sep, 2013 [facility] [place] [facility] [address] [id number] [place] [address]- 5856 13 Sep, 2013 [facility] [place] [facility] [address] [id number] [place] 2282 13 Sep, 2013 [facility] [place] [facility] [address] [id number] [place] [address]- 1316 31 Aug, 2012 [facility] [address] [id number] [place] [address]- 8786 31 Aug, 2012 [facility] [place] [facility] [address] [id number] [place] [address]- 3230 17 Aug, 2012 [facility] [place] [facility] [address] [id number] [place] [address]- 9052 17 Aug, 2012 [facility] [place] [facility] [address] [id number] [place] [address]- 2814 10 Aug, 2012 [facility] [place] [facility] [address] [id number] [place] [address]- 2905 10 Aug, 2012 [facility] [place] [facility] [address] [id number] [place] [address]- 5370 07 Aug, 2012 [facility] [address] [id number] [place] [address]- 2761 02 Aug, 2012 [facility] [place] [facility] [address] [id number] [place] [address]- 4111 02 Aug, 2012 [facility] [place] [facility] [address] [id number] [place] [address]- 3691 25 Sep, 2012 [facility] [place] [facility] [address] [id number] [place] [address]- 2581 23 Sep, 2012 [facility] [place] [facility] [address] [id number] [place] [address]- 9977 21 Sep, 2012 [facility] [place] [facility] [address] [id number], [place] [address]- 2545 20 Sep, 2012 [facility] [place] [facility] [address] [id number] [place] [address]- 8971 18 Sep, 2012 [facility] [place] [facility] [address] [id number] [place] [address]- 9105 17 Sep, 2012 [facility] [place] [facility] [address] [id number], [place] [address]- 7587 16 Sep, 2012 [facility] [place] [facility] [address] [id number] [place] [address]- 9793 11 Jul, 2012 [facility] [place] [facility] [address] [id number] [place] [address]- 6076 09 Jul, 2012 [facility] [place] [facility] [address] [id number] [place] [address] 2546 Jul, 2012 [facility] [place] [facility] [address] [id number] [place] [address] 2546 06 Jul, 2012 [facility] [place] [facility] [address] [id number] [place] [address] 2549 Jul, 2012 [facility] [place] [facility] [address] [id number] [place] [address]- 8053 Jun, [facility] [place] [facility] [address] [id number] [place] [address]- 4021 Jun, [facility] [place] [facility] [address] [id number] [place] [address]- 8325 Jun, [facility] [place] [facility] [address] [id number] [place] [address]- 7284 Jun, [facility] [place] [facility] [address] [id number] [place] [address]- 4293 Jun, [facility] [place] [facility] [address] [id number] [place] [address]- 5056 Jun, [facility] [place] [facility] [address] [id number] [place] [address]- 6405 Jun, [facility] [place] [facility] [address] [id number] [place] [address] 254 Jun, [facility] [place] [facility] [address] [id number] [place] [address] 254 Jun, [facility] [place] [facility] [address] [id number] [place] [address] 2544 May, [facility] [place] [facility] [address] [id number] [place] [address]- 2897 May, [facility] [address] [id number] [place] [address]- 4605 May, [facility] [place] [facility] [address] [id number] [place] [address]- 3274 May, [facility] [place] [facility] [address] [id number] [place] [address]- 2720 May, [facility] [place] [facility] [address] [id number] [place] [address]- 1351 May, [facility] [place] [facility] [address] [id number] [place] [address]- 2793 May, [facility] [place] [facility] [address] [id number] [place] [address]- 5024 March, [facility] [place] [facility] [address] [id number] [place] [address]- 3787 March, [facility] [place] [facility] [address] [id number] [place] [address]- 7227 March, [facility] [place] [facility] [address] [id number] [place] [address]- 4375 Dec, [facility] [place] [facility] [address] [id number] [place] [address]- 2652 Nov, [facility] [place] [facility] [address] [id number] [place] [address]- 5697 Aug, [facility] [place] [facility] [address] [id number] [place] [address] 2545 Aug, [facility] [place] [facility] [address] [id number] [place] [address]- 0453 Jun, [facility] [place] [facility] [address] [id number] [place] [address]- 6528 Jun, [facility] [place] [facility] [address] [id number] [place] [address]- 5755 Jun, [facility] [place] [facility] [address] [id number] [place] [address]- 6815 Jun, [facility] [address] [id number] [place] [address]- 2863 May, [facility] [address] [id number] [place] [address]- 0977 May, [facility] [address] [id number] [place] [address]- 6935 May, [facility] [address] [id number] [place] [address]- 5738 May, [facility] [address] [id number] [place] [address]- 0902 May, [facility] [address] [id number] [place] [address]- 2333 May, [facility] [address] [id number] [place] [address]- 6886 May, [facility] [address] [id number] [place] [address]- 3461 Apr, [facility] [address] [id number] [place] [address]- 3282 Apr, [facility] [address] [id number] [place] [address]- 4261 Apr, [facility] [place] [facility] [address] [id number] [place] [address]- 0234 Apr, [facility] [place] [facility] [address] [id number] [place] [address]- 0068 March, [facility] [place] [facility] [address] [id number] [place] [address]- 4756 March, [facility] [place] [facility] [address] [id number] [place] [address]- 5295 March, [facility] [address] [id number] [place] [address]- 3243 March, [facility] [place] [facility] [address] [id number] [place] [address]- 9514 March, [facility] [place] [facility] [address] [id number] [place] [address]- 0665 March, [facility] [place] [facility] [address] [id number] [place] [address]- 9956 March, [facility] [place] [facility] [address] [id number] [place] [address]- 5567 March, [facility] [address] [id number] [place] [address]- 8188 March, [facility] [place] [facility] [address] [id number] [place] [address]- 3590 Feb, [facility] [place] [facility] [address] [id number] [place] [address]- 0125 Feb, [facility] [place] [facility] [address] [id number] [place] [address]- 6718 Jan, [facility] [place] [facility] [address] [id number] [place] [address]- 5914 Jan, [facility] [place] [facility] [address] [id number] [place] [address]- 9908 Jan, [facility] [place] [facility] [address] [id number] [place] [address]- 7826 Jan, [facility] [place] [facility] [address] [id number] [place] [address]- 2310 Dec, [facility] [place] [facility] [address] [id number] [place] [address]- 8472 Dec, [facility] [place] [facility] [address] [id number] [place] [address]- 9526 15 Dec, 2011 [facility] [place] [facility] [address] [id number] [place] [address]- 4956 Nov, [facility] [place] [facility] [address] [id number] [place] [address]- 8736 19 Oct, 2011 [facility] [place] [facility] [address] [id number] [place] [address]- 8364 15 Oct, 2011 [facility] [place] [facility] [address] [id number] [place] [address]- 2151 15 Oct, 2011 [facility] [place] [facility] [address] [id number] [place] [address] 14 Oct, 2011 [facility] [place] [facility] [address] [id number] [place] [address] 14 Oct, 2011 [facility] [place] [facility] [address] [id number] [place] [address] 12 Oct, 2011 [facility] [place] [facility] [address] [id number] [place] [address] 09 Oct, 2011 [facility] [place] [facility] [address] [id number] [place] [address] Oct, [facility] [place] [facility] [address] [id number] [place] [address] 22 Sep, 2011 [facility] [place] [facility] [address] [id number] [place] [address] 17 Sep, 2011 [facility] [place] [facility] [address] [id number] [place] [address] 14 Sep, 2011 [facility] [place] [facility] [address] [id number] [place] [address] 10 Sep, 2011 [facility] [place] [facility] [address] [id number] [place] [address] Sep, [facility] [place] [facility] [address] [id number] [place] [address] 09 Sep, 2011 [facility] [place] [facility] [address] [id number] [place] [address] 08 Sep, 2011 [facility] [place] [facility] [address] [id number] [place] [address] 03 Sep, 2011 [facility] [place] [facility] [address] [facility] [id number], [place] [address] Sep, [facility] [address] [id number], [place] [address] Aug, [facility] [id number], [place] [address] Jul, [facility] [address] [id number], [place] [address] Oct, [facility] [address] [id number], [place] [address] Oct, [facility] [address] [id number] [address] Oct, IMMUNIZATIONS No Known Immunizations SOCIAL HISTORY Never Assessed REASON FOR VISIT Controlled Med Refill 08/29/2017 PLAN OF CARE VITAL SIGNS MEDICATIONS Medication [...]
--- OUTSIDE RECORDS SUMMARY | 2018-04-25 06:49 | XMS REPORT ---
Author Author ALAN CARABALLO [facility] eClinicalWorks Address Unknown Phone Unavailable Care Team Providers Care Primary Operator Name Role Phone ALAN CARABALLO CP [...] Date End Date Status Dosage Tramadol HCl [facility] [address]-44 50 MG Orally 1 tablet QAM/2 tabs QPM March 23, 2015 1 tablet Results No Known Results Summary Purpose eClinicalWorks Submission
--- OUTSIDE RECORDS SUMMARY | 2018-04-25 06:50 | XMS REPORT ---
Author Author ALAN CARABALLO [facility] eClinicalWorks Address Unknown Phone Unavailable Care Team Providers Care Louver Door Assembler Name Role Phone ALAN CARABALLO CP Unavailable [...] with ketoacidosis without coma E10.10 Active Problem Orthostatic hypotension 458.0 Active Problem [...] Active Problem Irregular menstrual cycle 626.4 Active Assessment Right hip pain M25.551 Active Assessment Type 2 diabetes mellitus with complication E11.8 Active Problem Type 1 diabetes mellitus with hypoglycemia without coma E10.649 Active Medications Medication Code System Code Instructions Start Date End Date Status Dosage Geoff Contour Next Test [facility] [id number] TEST 10 TIMES A DAY Requip [facility] 62617349865 0.25 MG 1 tablet by Oral route 1 time per day Aranesp (Alb Free) SureClick NDC 0 not defined Ferrous Sulfate [facility] [address]-34 65 mg Orally Once a day Dec 01, 2014 by Oral route 325mg QD by Dr Jensen HahnCifvyddjmk-PAJL-Foxu-Cod [facility] [id number] MG TAKE ONE CAPSULE BY MOUTH EVERY 4 HOURS NEEDED (NOT TO EXCEED 6 CAPSULES/24 HOURS) NovoLog [facility] [address]-85 100 UNIT/ML per insulin pump April 22, 2014 as directed Tramadol HCl [facility] [address]-15 50 MG Orally 1 tablet QAM/2 tabs QPM March 23, 2015 1 tablet Gemfibrozil [facility] [address]-98 600 MG Orally Twice a day 1 tablet fludrocortisone NDC 0 0.1 mg Dec 02, 2013 take 0.5 tablet by Oral route 1 time per day Wkc-Zyjjqyah-Eict-FA NDC 0 65-1 MG Orally not defined Celexa [facility] 65881967364 10 MG 1 tablet by Oral route 1 time per day Procedures Procedure Coding System Code Date MICROALBUMIN, SEMIQUANT CPT-4 12054 Oct 05, 2015 [facility] NOBLL Oct 05, 2015 GLYCATED HEMOGLOBIN TEST CPT-4 80152 Oct 05, 2015 Office Visit, Est Pt., Level 3 CPT-4 36389 Oct 05, 2015 [facility] VISIT ESTABLISHED PATIENT CPT-4 G0467 Oct 05, 2015 Vital Signs Date/Time: Oct 05, 2015 Temperature 97.7 F Weight 122.3 lbs Height 62 in BMI 22.37 Index Blood Pressure Diastolic 60 mmHg Blood Pressure Systolic 100 mmHg Cardiac Monitoring Heart Rate 76 bpm Results Name Result Date Reference Range Unit Abnormality Flag CULTURE, URINE A1C (IN HOUSE) MICROALBUMIN/CREATININE RATIO, URINE Summary Purpose eClinicalWorks Submission
--- OUTSIDE RECORDS SUMMARY | 2018-04-25 06:51 | XMS REPORT ---
Author Author ALAN CARABALLO [facility] eClinicalWorks Address Unknown Phone Unavailable Care Team Providers Care Personal Finance Instructor Name Role Phone ALAN CARABALLO CP [...] Date End Date Status Dosage Tramadol HCl [facility] [address]-95 50 MG Orally 1 tablet QAM/2 tabs QPM March 23, 2015 1 tablet Results No Known Results Summary Purpose eClinicalWorks Submission
--- OUTSIDE RECORDS SUMMARY | 2018-04-25 06:51 | XMS REPORT ---
Author Author ALAN CARABALLO [facility] Address [address] [place] [address] Care Team Providers Care Conveyor Mechanic Name Role Phone ALAN CARABALLO Unavailable PROBLEMS Type Condition ICD9-CM Code [id number] Code Onset Dates Condition Status SNOMED Code Problem Irritable bowel K58.9 Active 19178838 Problem Restless legs syndrome G25.81 Active 955597432 Problem Anemia, unspecified D64.9 Active 542902560 Problem Dysthymia F34.1 Active 55630627 Problem Chronic kidney disease, stage 4 (severe) N18.4 Active 696092562 Problem Low back pain M54.5 Active 028960513 Problem Type 1 diabetes mellitus without complications E10.9 Active 970212840 Problem Migraine without aura and without status migrainosus, not intractable G43.009 Active 797088701 Problem Other insomnia G47.09 Active 550451369 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 04663160 Problem Proteinuria, unspecified R80.9 Active 72257185 Problem Type 1 diabetes mellitus with hyperglycemia E10.65 Active 55133486 Problem Chronic kidney disease, unspecified N18.9 Active 076910975 Problem Type 1 diabetes mellitus with hypoglycemia without coma E10.649 Active 67921806 Problem Migraine G43.909 Active 89349530 ALLERGIES Substance Reaction Event Type Date Status Lisinopril Unknown Drug Allergy Nov, Active Gabapentin Unknown Drug Allergy Nov, Active Cozaar 25 Mg Tablet Unknown Non Drug Allergy Nov, Active Niacin 500 Mg Tablet Unknown Non Drug Allergy Nov, Active SOCIAL HISTORY No smoking Hx information available PLAN OF CARE Activity Details Follow Up prn Reason: VITAL SIGNS Height 62 in 2016-12-12 Weight 134.1 lbs 2016-12-12 Temperature 98.5 degrees Fahrenheit 2016-12-12 Heart Rate 86 bpm 2016-12-12 Respiratory Rate 20 2016-12-12 BMI 24.52 kg/m2 2016-12-12 Blood pressure systolic 130 mmHg 2016-12-12 Blood pressure diastolic 88 mmHg 2016-12-12 MEDICATIONS Medication Instructions Dosage Frequency Start Date End Date Duration Status Tramadol HCl 50 MG Orally 1 tablet in the morning and 2 tablets in the evening 1 tablet Feb, 28 days Active Vitamin D (Cholecalciferol) 400 UNIT Orally Once a day 1 capsule 24h Active Pgj-Pxxcxqrv-Fsbw-FA 65-1 MG Active Aranesp (Alb Free) SureClick Active fludrocortisone 0.1 mg take 1/2 tablet by Oral route 1 time per day Nov, Active NovoLog 100 UNIT/ML Subcutaneous per insulin pump as directed March, Active GlucaGen HypoKit 1 MG Injection PRN Inject 1 mg Jun, 14 days Active Ferrous Sulfate 65 mg Orally Once a day by Oral route 325mg QD by Dr Styles 24h Nov, Active Bentyl 20 MG Orally Four times a day PRN 1 tablet Active Hfdjnbcnfh-HIMB-Egvi-Cod 75-578-77-30 MG TAKE ONE CAPSULE BY MOUTH EVERY 4 HOURS NEEDED (NOT TO EXCEED 6 CAPSULES/24 HOURS) 30 Active Requip 0.25 MG TAKE ONE TABLET BY MOUTH ONCE DAILY 90 Active Zofran ODT 4 MG Orally every 8 hrs 1 tablet on the tongue and allow to dissolve 8h Nov, 07 days Active Celexa 10 MG 1 tablet by Oral route 1 time per day 90 Active Geoff Contour Next Test - test blood sugar 90 days Active RESULTS Name Result Date Reference Range INFLUENZA A & B (IN HOUSE) 2016-12-12 INFLUENZA A negative INFLUENZA B negative Control + Lot # [id number] Exp date 11/16/2107 PROCEDURES Procedure Date Ordered Related Diagnosis Body Site INFLUENZA ASSAY W/OPTIC Dec 12, 2016 COUNT INCLUDES THE [facility] VISIT ESTABLISHED PATIENT Dec 12, 2016 Office Visit, Est Pt., Level 3 Dec 12, 2016 IMMUNIZATIONS No Known Immunizations
--- OUTSIDE RECORDS SUMMARY | 2018-04-25 06:51 | XMS REPORT ---
Author Author ALAN CARABALLO [facility] Address [address] [place] [address] Care Team Providers Care Manager Relationship Name Role Phone ALAN CARABALLO Unavailable PROBLEMS Type Condition ICD9-CM Code FAR65-HI Code Onset Dates Condition Status SNOMED Code Problem Type 1 diabetes mellitus without complications E10.9 Active 555411057 Problem Other insomnia G47.09 Active 936209872 Problem Low back pain M54.5 Active 600055803 Problem Migraine with aura and without status migrainosus, not intractable G43.109 Active 8858260 Problem Menorrhagia with regular cycle N92.0 Active 996490056 Problem Chronic kidney disease, stage 4 (severe) N18.4 Active 823830401 Problem Migraine without aura and without status migrainosus, not intractable G43.009 Active 904947882 Problem Autonomic neuropathy G90.9 Active 245938046 Problem Dysthymia F34.1 Active 82455174 Problem Type 1 diabetes mellitus with hypoglycemia without coma E10.649 Active 56283625 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 49820271 Problem Type 1 diabetes mellitus with hyperglycemia E10.65 Active 20581822 Problem Migraine G43.909 Active 06880894 Problem Irritable bowel K58.9 Active 17880091 Problem Proteinuria, unspecified R80.9 Active 54503178 Problem Anemia, unspecified D64.9 Active 276728305 Problem Chronic kidney disease, unspecified N18.9 Active 913386124 Problem Restless legs syndrome G25.81 Active 450733971 ALLERGIES No Information ENCOUNTERS Encounter Location Date Diagnosis [facility] [id number], [place] [address] Jan, Low back pain M54.5 [facility] [id number], [place] [address] Jan, [id number] [place] [address] 02362- 7210 Jan, Type 1 diabetes mellitus without complications E10.9 ; Low back pain M54.5 ; Cough R05 ; Diarrhea, unspecified type R19.7 ; Migraine without aura and without status migrainosus, not intractable G43.009 and Uses control Z30.9 [address] [address] [address]- 6078 Dec, Low back pain M54.5 [facility] [address] 29958- 9544 Dec, [place] [address] 35819- 5023 Nov, Well woman exam Z01.419 ; Menorrhagia with regular cycle N92.0 ; Vaginal dryness N89.8 and Migraine with aura and without status migrainosus, not intractable G43.109 [address] [address] 76838- 7815 Nov, [place] [address] 46666- 5850 Nov, Low back pain M54.5 [facility] [address] 72689- 2968 Oct, Low back pain M54.5 [place] [address] 22157- 7831 Oct, Migraine without aura and without status migrainosus, not intractable G43.009 [facility] [place] [id number] [place] [address] 81097- 1186 Sep, Low back pain M54.5 [place] [address] 87158- 4540 Sep, [place] [address] 77579- 5934 Sep, Migraine without aura and without status migrainosus, not intractable G43.009 [facility] [id number] [place] [address] 53892- 1751 Sep, Type 1 diabetes mellitus with hypoglycemia without coma E10.649 ; Anemia D64.9 ; Migraine without aura and without status migrainosus, not intractable G43.009 ; Chronic kidney disease, unspecified N18.9 ; Autonomic neuropathy G90.9 and Postural hypotension I95.1 [facility] [id number] [place] [address] 39381- 0343 Sep, Low back pain M54.5 [facility] [id number] [place] [address] 89517- 7052 Aug, Low back pain M54.5 [facility] [id number] [place] [address] 32411- 2685 Jul, [facility] [address] 61037- 6184 Jul, Low back pain M54.5 [facility] [id number] [place] [address] 15513- 8646 Jun, [facility] [id number] [place] [address] 69790- 1924 Jun, Low back pain M54.5 [facility] [id number] [place] [address] 26008- 0784 Jun, Migraine without aura and without status migrainosus, not intractable G43.009 [facility] [id number] [place] [address] 46956- 1859 Jun, Type 1 diabetes mellitus with hyperglycemia E10.65 ; Dysthymia F34.1 and Migraine without aura and without status migrainosus, not intractable G43.009 [facility] [id number] [place] [address] 13471- 8089 Jun, [facility] [id number] [place] [address] 16014- 4902 May, Type 1 diabetes mellitus with hyperglycemia E10.65 [facility] [id number] [place] [address] 00464- 9410 May, Low back pain M54.5 [facility] [id number] [place] [address] 65105- 1224 May, Type 1 diabetes mellitus with hyperglycemia E10.65 [facility] [address] 52547- 1241 Apr, [facility] [id number] [place] [address] 69397- 0641 Apr, Chronic kidney disease, stage 4 (severe) N18.4 [facility] [id number] [place] [address] 93928- 8893 Apr, Low back pain M54.5 [facility] [id number] [place] [address] 35886- 4944 March, [facility] [id number] [place] [address] 40108- 4305 March, Low back pain M54.5 [facility] [id number] [place] [address] 91114- 1900 Feb, [facility] [id number] [place] [address] 69683- 5382 Feb, [facility] [id number] [place] [address] 10210- 8372 Feb, Low back pain M54.5 [facility] [id number] [place] [address] 83373- 7348 Feb, Low back pain M54.5 [facility] [id number] [place] [address] 98360- 5137 Feb, Migraine without aura and without status migrainosus, not intractable G43.009 [facility] [id number] [place] [address] 91762- 2761 Feb, [facility] [id number] [place] [address] 22461- 2234 Jan, Low back pain M54.5 [facility] [id number] [place] [address] 15895- 5790 Jan, Type 1 diabetes mellitus without complications E10.9 ; Anemia D64.9 ; Chronic kidney disease, unspecified N18.9 ; Migraine without aura and without status migrainosus, not intractable G43.009 and Other insomnia G47.09 [facility] [address] 84356- 9841 Jan, [address] 82560- 8692 Dec, Low back pain M54.5 [place] [address] 41627- 5149 Dec, [place] [address] 44456- 6876 Dec, [facility] [address] 99173- 6908 Dec, Shortness of breath R06.02 ; Type 1 diabetes mellitus without complications E10.9 and Leg swelling M79.89 [facility] [place] [id number] [place] [address] 70705- 3552 Nov, Low back pain M54.5 [facility] [id number] [place] [address] 50327- 5515 Nov, Viral syndrome B34.9 [facility] [address] 83879- 2314 Oct, Low back pain M54.5 [facility] [id number] [place] [address] 05679- 8207 Oct, [facility] [address] 79083- 4260 Oct, Low back pain M54.5 [facility] [id number] [place] [address] 35036- 3860 Sep, [facility] [id number] [place] [address] 72345- 1292 Sep, Fatigue, unspecified type R53.83 ; Type 1 diabetes mellitus without complications E10.9 and Anemia D64.9 [facility] [id number] [place] [address] 30633- 4251 Sep, Low back pain M54.5 [facility] [id number] [place] [address] 31977- 1372 Sep, Type 1 diabetes mellitus with hyperglycemia E10.65 [facility] [id number] [place] [address] 62893- 0214 Aug, Type 1 diabetes mellitus without complications E10.9 [facility] [id number] [place] [address] 75053- 0470 Aug, [facility] [id number] [place] [address] 48380- 7149 Aug, [facility] [id number] [place] [address] 41778- 9108 Jul, [facility] [id number] [place] [address] 33256- 3615 14 Jul, 2016 Low back pain M54.5 [facility] [id number] [place] [address] 67766- 5604 12 Jul, 2016 Hyperkalemia, diminished renal excretion E87.5 [facility] [id number] [place] [address] 64742- 3857 09 Jul, 2016 Hyperkalemia, diminished renal excretion E87.5 [facility] [id number] [place] [address] 18641- 0873 Jun, [facility] [id number] [place] [address] 01628- 7223 Jun, Low back pain M54.5 [facility] [id number] [place] [address] 05483- 5426 Jun, Anemia D64.9 ; Autonomic neuropathy G90.9 and Postural hypotension I95.1 [facility] [id number] [place] [address] 32578- 2846 Jun, [facility] [address] 65321- 5726 May, Type 1 diabetes mellitus with complications E10.8 and Anemia D64.9 [facility] [id number] [place] [address] 90524- 6007 May, Low back pain M54.5 [facility] [id number] [place] [address] 88766- 0488 Apr, [facility] [address] 43757- 4099 Apr, Low back pain M54.5 [facility] [id number] [place] [address] 97277- 6049 Apr, [facility] [id number] [place] [address] 64062- 7451 Apr, [facility] [id number] [place] [address] 58330- 2760 March, Low back pain M54.5 and Other chronic pain G89.29 [facility] [id number] [place] [address] 79061- 8275 March, Type 1 diabetes mellitus without complications E10.9 [facility] [id number] [place] [address] 98726- 4806 March, [facility] [id number] [place] [address] 04335- 6472 March, [facility] [id number] [place] [address] 49026- 8845 Feb, [facility] [id number] [place] [address] 29639- 7675 Feb, Type 1 diabetes mellitus without complications E10.9 [facility] [place] [id number] [place] [address] 19371- 0783 Feb, Trochanteric bursitis, right hip M70.61 [address] [address] 20071- 6781 Jan, [facility] [address] 03923- 5366 Jan, [address] [place] [address] 05151- 0232 Dec, Type 1 diabetes mellitus with complications E10.8 [address] [address] 87298- 2040 Dec, [address] [address] 40194- 7072 Dec, Anemia D64.9 ; Autonomic neuropathy G90.9 and Postural hypotension I95.1 [address] [place] [address] 18199- 2360 Dec, [facility] [id number] [place] [address] 60015- 9503 Nov, Sore throat J02.9 [address] [id number] [place] [address] 33445- 7928 Nov, Type 1 diabetes mellitus with complications E10.8 [address] [place] [id number] [place] [address] 71892- 3255 Nov, 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 ; Proteinuria, unspecified R80.9 and Chronic kidney disease, unspecified N18.9 [address] [place] [id number] [place] [address] 02909- 3551 Nov, [facility] [place] [id number] [place] [address] 38934- 8341 Nov, Trochanteric bursitis, right hip M70.61 [facility] [id number] [place] [address] 07807- 9133 Nov, [facility] [id number] [place] [address] 09770- 9575 Oct, [facility] [id number] [place] [address] 44775- 2173 Oct, [facility] [id number] [place] [address] 46739- 9864 Oct, [facility] [id number] [place] [address] 31360- 2593 Sep, [facility] [id number] [place] [address] 89844- 8912 Sep, [facility] [id number] [place] [address] 55218- 2530 Sep, Type 2 diabetes mellitus with complication E11.8 and Right hip pain M25.551 [facility] [id number] [place] [address] 58111- 7599 Sep, [facility] [id number] [place] [address] 34036- 5061 Aug, [facility] [address] [place] [address] 17421- 7581 Aug, [facility] [id number] [place] [address] 28481- 3182 Aug, [facility] [id number] [place] [address] 57815- 9823 Aug, Type 1 diabetes mellitus without complications E10.9 [facility] [address], [place] [address]- 6817 16 Jul, 2015 [facility] [id number] [place] [address] 72578- 8246 Jul, [facility] [address], [place] [address]- 0324 Jul, [facility] [address] [place] [address] 39072- 5642 Jun, [facility] [address] 0148 Jun, [facility] [id number] [place] [address] 49747- 9534 Jun, [facility] [address] [place] [address] 26588- 5169 Jun, [facility] [id number] [place] [address] 66014- 7074 Jun, [facility] [id number] [place] [address] 78555- 3098 Jun, Diabetes mellitus without mention of complication, type I [ juvenile type], not stated as uncontrolled 250.01 [facility] [address], [place] [address]- 0856 May, [facility] [id number] [place] [address] 67483- 6828 May, [facility] [address], [place] [address]- 0829 May, [facility] [address] [place] [address] 57905- 0695 May, Autonomic neuropathy 337.9 ; Postural hypotension 458.0 and Anemia 285.9 [facility] [address], [place] [address]- 5586 May, [facility] [address] [place] [address] 640306- 9312 Apr, [facility] [address], [place] [address]- 5942 Apr, [facility] [id number] [place] [address]- 5272 Apr, [facility] [place] [facility] [address] [id number] [place] [address]- 0373 Apr, [facility] [place] [facility] [address] [id number] [place] [address]- 0362 Apr, [facility] [place] [facility] [address] [id number] [place] [address]- 4696 March, [facility] [place] [facility] [address] [id number] [place] [address]- 6280 March, [facility] [place] [facility] [address] [id number] [place] [address]- 4386 March, [facility] [place] [facility] [address] [id number] [place] [address]- 6645 March, [facility] [place] [facility] [address] [id number] [place] [address]- 4152 March, [facility] [place] [facility] [address] [id number] [place] [address]- 3676 Feb, [facility] [place] [facility] [address] [id number] [place] [address]- 2452 Feb, [facility] [place] [facility] [address] [id number] [place] [address]- 9287 Feb, [facility] [place] [facility] [address] [id number] [place] [address]- 2407 30 Jan, 2015 [facility] [place] [facility] [address] [id number] [place] [address]- 3217 Jan, [facility] [place] [facility] [address] [id number] [place] [address]- 4020 Jan, [facility] [place] [facility] [address] [id number] [place] [address]- 7619 Jan, [facility] [place] [facility] [address] [id number] [place] [address]- 9967 Jan, [facility] [place] [facility] [address] [id number] [place] [address]- 0387 Jan, [facility] [place] [facility] [address] [id number] [place] [address]- 5091 Jan, [facility] [place] [facility] [address] [id number] [place] 4958 Jan, [facility] [place] [facility] [address] [id number] [place] [address]- 9799 Jan, [facility] [place] [facility] [address] [id number] [place] [address]- 0155 Jan, [facility] [place] [facility] [address] [id number] [place] [address]- 1103 Jan, [facility] [place] [facility] [address] [id number] [place] [address]- 2394 Jan, [facility] [place] [facility] [address] [id number] [place] [address]- 2839 Jan, [facility] [place] [facility] [address] [id number] [place] [address]- 5271 Dec, [facility] [place] [facility] [address] [id number] [place] [address]- 2153 Dec, [facility] [place] [facility] [address] [id number] [place] [address]- 1972 Dec, [facility] [place] [facility] [address] [id number], [place] [address]- 1620 Dec, 2014 [facility] [place] [facility] [address] [id number] [place] [address]- 4254 Dec, [facility] [place] [facility] [address] [id number] [place] [address]- 9297 Dec, 2014 [facility] [place] [facility] [address] [id number] [place] [address]- 8858 Dec, [facility] [place] [facility] [address] [id number] [place] [address]- 7131 Dec, [facility] [place] [facility] [address] [id number] [place] [address]- 3951 Nov, [facility] [place] [facility] [address] [id number] [place] [address]- 3055 Nov, [facility] [place] [facility] [address] [id number] [place] [address]- 3509 Nov, [facility] [place] [facility] [address] [id number] [place] [address]- 3609 Nov, [facility] [place] [facility] [address] [id number] [place] [address]- 9210 Nov, [facility] [place] [facility] [address] [id number] [place] [address]- 4542 Nov, [facility] [place] [facility] [address] [id number] [place] [address]- 4175 Nov, [facility] [place] [facility] [address] [id number] [place] [address]- 9293 Nov, [facility] [place] [facility] [address] [id number] [place] [address]- 4584 Nov, [facility] [place] [facility] [address] [facility] [id number] [place] [address]- 5570 Oct, [facility] [place] [facility] [address] [id number] [place] [address]- 8047 Oct, [facility] [place] [facility] [address] [id number] [place] [address]- 0614 Oct, [facility] [place] [facility] [address] [id number] [place] [address]- 9544 Oct, [facility] [place] [facility] [address] [id number] [place] [address] Oct, [facility] [place] [facility] [address] [id number] [place] [address] Oct, [facility] [place] [facility] [address] [id number] [place] [address] Oct, [facility] [place] [facility] [address] [id number] [place] [address] Oct, [facility] [place] [facility] [address] [id number] [place] [address] Oct, [facility] [place] [facility] [address] [id number] [place] [address] Oct, [facility] [place] [facility] [address] [id number] [place] [address] Oct, [facility] [place] [facility] [address] [id number] [place] [address] Oct, [facility] [place] [facility] [address] [id number] [place] [address] Oct, [facility] [place] [facility] [address] [id number] [place] [address] Oct, [facility] [place] [facility] [address] [id number] [place] [address] Sep, [facility] [place] [facility] [address] [id number] [place] [address] Sep, [facility] [place] [facility] [address] [id number] [place] [address] Sep, [facility] [place] [facility] [address] [id number] [place] [address] Sep, [facility] [place] [facility] [address] [id number] [place] [address] Aug, [facility] [place] [facility] [address] [id number] [place] [address] Aug, [facility] [place] [facility] [address] [id number] [place] [address] Aug, [facility] [place] [facility] [address] [id number] [place] [address] Aug, [facility] [place] [facility] [address] [id number] [place] [address] Aug, [facility] [place] [facility] [address] [id number] [place] [address] Aug, [facility] [place] [facility] [address] [id number] [place] [address] Aug, [facility] [place] [facility] [address] [id number] [place] [address] Aug, [facility] [place] [facility] [address] [id number] [place] [address] Aug, [facility] [place] [facility] [address] [id number] [place] [address] Aug, [facility] [place] [facility] [address] [id number] [place] [address] 29 Jul, 2014 [facility] [place] [facility] [address] [id number] [place] [address] 29 Jul, 2013 [facility] [place] [facility] [address] [id number] [place] [address] 29 Jul, 2013 [facility] [place] [facility] [address] [id number] [place] [address] 29 Jul, 2013 [facility] [place] [facility] [address] [id number] [place] [address] 22 Jul, 2013 [facility] [place] [facility] [address] [id number] [place] [address] 22 Jul, 2013 [facility] [place] [facility] [address] [id number] [place] [address] 19 Jul, 2013 [facility] [place] [facility] [address] [id number] [place] [address] 19 Jul, 2013 [facility] [place] [facility] [address] [id number] [place] [address] 11 Jul, 2013 [facility] [place] [facility] [address] [id number] [place] [address] 11 Jul, 2013 [facility] [place] [facility] [address] [id number] [place] [address] 10 Jul, 2013 [facility] [place] [facility] [address] [id number] [place] [address] 10 Jul, 2013 [facility] [place] [facility] [address] [id number] [place] [address] 08 Jul, 2013 [facility] [place] [facility] [address] [id number] [place] [address] 08 Jul, 2013 [facility] [place] [facility] [address] [id number] [place] [address] Jul, 2013 [facility] [place] [facility] [address] [id number] [place] [address] Jul, 2013 [facility] [place] [facility] [address] [id number] [place] [address] 0647 Jul, 2013 [facility] [place] [facility] [address] [id number] [place] [address] 90[address] Jul, 2013 [facility] [place] [facility] [address] [id number] [place] [address]- 1071 Jun, [facility] [place] [facility] [address] [id number] [place] [address]- 0348 Jun, [facility] [place] [facility] [address] [id number] [place] [address]- 2548 Jun, [facility] [place] [facility] [address] [id number] [place] [address]- 2542 Jun, [facility] [place] [facility] [address] [id number] [place] [address]- 3184 Jun, [facility] [place] [facility] [address] [id number] [place] [address]- 7289 Jun, [facility] [place] [facility] [address] [id number] [place] [address]- 3941 Jun, [facility] [place] [facility] [address] [id number] [place] [address] 9840 Jun, [facility] [place] [facility] [address] [id number] [place] [address]- 2335 Jun, [facility] [place] [facility] [address] [id number] [place] [address]- 8254 Jun, [facility] [place] [facility] [address] [id number] [place] [address]- 5577 Jun, [facility] [place] [facility] [address] [id number] [place] [address]- 6599 Jun, [facility] [place] [facility] [address] [id number] [place] [address]- 4339 Jun, [facility] [place] [facility] [address] [id number] [place] [address]- 2077 Jun, [facility] [place] [facility] [address] [id number] [place] [address] 1906 Jun, [facility] [place] [facility] [address] [id number] [place] [address]- 2350 May, [facility] [place] [facility] [address] [id number] [place] [address] 1976 May, [facility] [place] [facility] [address] [id number] [place] [address]- 7917 May, [facility] [place] [facility] [address] [id number] [place] [address]- 5837 May, [facility] [place] [facility] [address] [id number] [place] [address]- 7842 May, [facility] [place] [facility] [address] [id number] [place] [address]- 3181 May, [facility] [place] [facility] [address] [id number] [place] [address]- 9668 May, [facility] [place] [facility] [address] [id number], [place] [address] May, [facility] [place] [facility] [address] [id number] [place] [address]- 6962 Apr, [facility] [place] [facility] [address] [id number] [place] [address]- 3354 24 Apr, 2014 [facility] [place] [facility] [address] [id number] [place] [address]- 8745 Apr, [facility] [place] [facility] [address] [id number] [place] [address]- 6814 Apr, [facility] [place] [facility] [address] [id number] [place] [address]- 6719 Apr, [facility] [place] [facility] [address] [id number] [place] [address]- 2037 Apr, [facility] [place] [facility] [address] [id number] [place] [address]- 0604 Apr, [facility] [place] [facility] [address] [id number] [place] [address]- 8551 Apr, [facility] [place] [facility] [address] [id number] [place] [address] 1911 Apr, [facility] [place] [facility] [address] [facility] [id number] [place] [address]- 8425 Apr, [facility] [place] [facility] [address] [id number] [place] [address]- 8990 Apr, [facility] [place] [facility] [address] [id number], [place] [address]- 3[address] Apr, [facility] [place] [facility] [address] [id number] [place] [address]- 6183 Apr, [facility] [place] [facility] [address] [id number] [place] [address]- 9499 Apr, [facility] [place] [facility] [address] [id number] [place] [address]- 8957 Apr, [facility] [place] [facility] [address] [id number] [place] [address]- 7129 Apr, [facility] [place] [facility] [address] [id number] [place] [address]- 7509 Apr, [facility] [place] [facility] [address] [id number] [place] [address]- 0246 Apr, [facility] [place] [facility] [address] [id number] [place] [address]- 8466 March, [facility] [place] [facility] [address] [id number] [place] [address]- 6197 March, [facility] [place] [facility] [address] [id number] [place] [address]- 0012 March, [facility] [place] [facility] [address] [id number] [place] [address]- 4524 March, [facility] [place] [facility] [address] [id number] [place] [address]- 4513 March, [facility] [place] [facility] [address] [id number] [place] [address]- 4170 March, [facility] [place] [facility] [address] [id number] [place] [address]- 8209 March, [facility] [place] [facility] [address] [id number] [place] [address]- 9348 March, [facility] [place] [facility] [address] [id number] [place] [address]- 6591 March, [facility] [place] [facility] [address] [id number] [place] [address]- 1144 Feb, [facility] [place] [facility] [address] [id number] [place] [address]- 7589 Feb, [facility] [place] [facility] [address] [id number] [place] [address]- 4464 Feb, [facility] [place] [facility] [address] [id number] [place] [address]- 9520 Feb, [facility] [place] [facility] [address] [id number] [place] [address]- 2665 Feb, [facility] [place] [facility] [address] [id number] [place] [address]- 1337 Feb, [facility] [place] [facility] [address] [id number] [place] [address]- 6328 Feb, [facility] [place] [facility] [address] [id number] [place] [address]- 6247 Feb, [facility] [place] [facility] [address] [id number] [place] [address]- 5875 Feb, [facility] [place] [facility] [address] [id number] [place] [address]- 7595 Feb, [facility] [place] [facility] [address] [id number] [place] [address]- 4197 Feb, [facility] [place] [facility] [address] [id number] [place] [address]- 7515 Feb, [facility] [place] [facility] [address] [id number] [place] [address]- 2080 Feb, [facility] [place] [facility] [address] [id number] [place] [address]- 7612 Jan, [facility] [place] [facility] [address] [id number] [place] [address]- 6220 31 Jan, 2014 [facility] [place] [facility] [address] [id number] [place] [address]- 2197 24 Jan, 2014 [facility] [place] [facility] [address] [id number] [place] [address]- 9021 24 Jan, 2014 [facility] [place] [facility] [address] [id number] [place] [address]- 1581 17 Jan, 2014 [facility] [place] [facility] [address] [id number] [place] [address] 17 Jan, 2014 [facility] [place] [facility] [address] [id number] [place] [address]- 1394 Jan, [facility] [place] [facility] [address] [id number] [place] [address]- 4035 Jan, [facility] [place] [facility] [address] [id number] [place] [address]- 2418 Dec, [facility] [place] [facility] [address] [id number] [place] [address]- 5603 Dec, [facility] [place] [facility] [address] [id number] [place] [address]- 8616 Dec, [facility] [place] [facility] [address] [id number] [place] [address]- 8756 Dec, [facility] [place] [facility] [address] [facility] [id number] [place] [address]- 5466 Dec, [facility] [place] [facility] [address] [id number] [place] [address]- 0545 Dec, [facility] [place] [facility] [address] [id number] [place] [address]- 3982 Dec, [facility] [place] [facility] [address] [facility] [id number] [place] [address]- 0106 Dec, [facility] [place] [facility] [address] [facility] [id number] [place] [address]- 4695 Dec, [facility] [place] [facility] [address] [facility] [id number] [place] [address]- 6174 Dec, [facility] [place] [facility] [address] [id number] [place] [address]- 9642 Nov, [facility] [place] [facility] [address] [id number] [place] [address]- 4802 Nov, [facility] [place] [facility] [address] [id number] [place] [address]- 2319 Nov, [facility] [place] [facility] [address] [facility] [id number] [place] [address]- 1859 Nov, [facility] [place] [facility] [address] [id number] [place] [address]- 0665 Nov, [facility] [place] [facility] [address] [id number] [place] [address]- 9133 Nov, [facility] [place] [facility] [address] [id number] [place] [address]- 9429 Nov, [facility] [place] [facility] [address] [id number] [place] [address]- 9467 Nov, [facility] [place] [facility] [address] [id number] [place] [address]- 8380 Nov, [facility] [place] [facility] [address] [id number] [place] [address]- 0825 Nov, [facility] [place] [facility] [address] [id number] [place] [address]- 5720 19 Oct, 2013 [facility] [place] [facility] [address] [id number] [place] [address]- 4145 19 Oct, 2013 [facility] [place] [facility] [address] [id number] [place] [address]- 4944 18 Oct, 2013 [facility] [place] [facility] [address] [id number] [place] [address]- 1876 18 Oct, 2013 [facility] [place] [facility] [address] [id number] [place] [address]- 8730 17 Oct, 2013 [facility] [place] [facility] [address] [id number], [place] [address]- 2595 17 Oct, 2013 [facility] [place] [facility] [address] [id number] [place] [address]- 2418 16 Oct, 2013 [facility] [place] [facility] [address] [id number] [place] [address]- 3122 16 Oct, 2013 [facility] [place] [facility] [address] [id number] [place] [address]- 9770 11 Oct, 2013 [facility] [place] [facility] [address] [id number] [place] [address]- 4661 Oct, [facility] [address] [id number] [place] [address]- 5979 Oct, [facility] [place] [facility] [address] [id number] [place] [address] Oct, [facility] [address] [id number] [place] [address]- 4308 Oct, [facility] [place] [facility] [address] [id number] [place] [address]- 7191 Oct, [facility] [address] [id number] [place] [address]- 5033 Sep, [facility] [place] [facility] [address] [id number] [place] [address]- 5074 Sep, [facility] [address] [id number] [place] [address]- 0638 Sep, [facility] [address] [id number] [place] [address]- 2760 18 Sep, 2013 [facility] [address] [id number] [place] [address]- 0554 Sep, [facility] [address] [facility] [id number] [place] [address]- 6602 Sep, [facility] [place] [facility] [address] [id number] [place] [address]- 9553 Aug, [facility] [place] [facility] [address] [id number] [place] [address]- 3057 31 Aug, 2013 [facility] [place] [facility] [address] [id number] [place] [address]- 1718 17 Aug, 2013 [facility] [place] [facility] [address] [id number] [place] [address]- 4966 17 Aug, 2013 [facility] [place] [facility] [address] [id number], [place] [address]- 6866 10 Aug, 2013 [facility] [place] [facility] [address] [id number] [place] [address]- 5946 10 Aug, 2012 [facility] [place] [facility] [address] [id number] [place] [address]- 9003 07 Aug, 2013 [facility] [place] [facility] [address] [id number] [place] [address]- 0329 02 Aug, 2013 [facility] [place] [facility] [address] [id number] [place] [address]- 0284 02 Aug, 2013 [facility] [place] [facility] [address] [id number] [place] [address]- 2308 25 Jul, 2012 [facility] [place] [facility] [address] [id number] [place] [address]- 0777 23 Jul, 2012 [facility] [place] [facility] [address] [id number] [place] [address]- 1202 21 Jul, 2012 [facility] [place] [facility] [address] [id number] [place] [address]- 2037 20 Jul, 2012 [facility] [place] [facility] [address] [id number] [place] [address]- 1448 18 Sep, 2012 [facility] [place] [facility] [address] [id number] [place] [address]- 2979 17 Sep, 2012 [facility] [place] [facility] [address] [id number] [place] [address]- 4243 16 Sep, 2012 [facility] [place] [facility] [address] [id number], [place] [address]- 0311 11 Sep, 2012 [facility] [place] [facility] [address] [id number] [place] [address]- 2541 09 Sep, 2012 [facility] [place] [facility] [address] [id number] [place] [address]- 2544 09 Sep, 2012 [facility] [place] [facility] [address] [id number], [place] [address]- 7487 06 Sep, 2012 [facility] [place] [facility] [address] [id number], [place] [address]- 3557 Jul, [facility] [place] [facility] [address] [id number] [place] [address]- 1703 Jun, [facility] [place] [facility] [address] [id number] [place] [address]- 1506 Jun, [facility] [place] [facility] [address] [id number] [place] [address]- 4220 Jun, [facility] [place] [facility] [address] [id number] [place] [address]- 7984 Jun, [facility] [place] [facility] [address] [id number] [place] [address]- 5263 Jun, [facility] [place] [facility] [address] [id number] [place] [address]- 6317 Jun, [facility] [place] [facility] [address] [id number] [place] [address]- 9278 Jun, [facility] [place] [facility] [address] [id number] [place] [address]- 9320 Jun, [facility] [place] [facility] [address] [id number] [place] [address]- 8828 Jun, [facility] [place] [facility] [address] [id number] [place] [address]- 0567 May, [facility] [place] [facility] [address] [id number] [place] [address]- 0660 May, [facility] [place] [facility] [address] [id number] [place] [address]- 2578 May, [facility] [place] [facility] [address] [id number] [place] [address]- 7392 May, [facility] [place] [facility] [address] [id number] [place] [address]- 5201 May, [facility] [place] [facility] [address] [id number] [place] [address]- 1984 May, [facility] [place] [facility] [address] [id number] [place] [address]- 2546 May, [facility] [address] [id number] [place] [address]- 5696 March, [facility] [place] [facility] [address] [id number] [place] [address]- 2546 March, [facility] [place] [facility] [address] [id number] [place] [address]- 2546 March, [facility] [place] [facility] [address] [id number] [place] [address]- 2546 Dec, [facility] [place] [facility] [address] [id number] [place] [address]- 2546 Nov, [facility] [place] [facility] [address] [id number] [place] [address]- 1056 Aug, [facility] [place] [facility] [address] [id number] [place] [address]- 9926 Aug, [facility] [place] [facility] [address] [id number] [place] [address]- 2367 Jun, [facility] [place] [facility] [address] [id number] [place] [address]- 2216 Jun, [facility] [place] [facility] [address] [id number] [place] [address]- 9846 Jun, [facility] [place] [facility] [address] [id number] [place] [address]- 2546 Jun, [facility] [place] [facility] [address] [id number] [place] [address]- 2546 May, [facility] [place] [facility] [address] [id number] [place] [address]- 2546 May, [facility] [place] [facility] [address] [id number] [place] [address]- 2546 May, [facility] [place] [facility] [address] [id number] [place] [address]- 0351 May, [facility] [place] [facility] [address] [id number] [place] [address]- 5931 May, [facility] [place] [facility] [address] [id number] [place] [address]- 5446 May, [facility] [place] [facility] [address] [id number] [place] [address]- 9169 May, [facility] [place] [facility] [address] [id number] [place] [address]- 1453 Apr, [facility] [place] [facility] [address] [id number] [place] [address]- 3282 Apr, [facility] [place] [facility] [address] [id number] [place] [address]- 8257 Apr, [facility] [place] [facility] [address] [id number] [place] [address]- 9143 Apr, [facility] [place] [facility] [address] [id number] [place] [address]- 9029 March, [facility] [place] [facility] [address] [id number] [place] [address]- 6764 March, [facility] [place] [facility] [address] [id number] [place] [address]- 1572 March, [facility] [place] [facility] [address] [id number] [place] [address]- 1889 March, [facility] [place] [facility] [address] [id number] [place] [address]- 1193 March, [facility] [place] [facility] [address] [id number] [place] [address]- 6482 March, [facility] [place] [facility] [address] [id number] [place] [address]- 6741 March, [facility] [place] [facility] [address] [id number] [place] [address]- 4962 March, [facility] [place] [facility] [address] [id number] [place] [address]- 6354 March, [facility] [address] [id number] [place] [address] Feb, [facility] [place] [facility] [address] [id number] [place] [address] Feb, [facility] [address] [id number] [place] [address] Jan, [facility] [place] [facility] [address] [id number] [place] [address] 27 Jan, 2012 [facility] [address] [id number] [place] [address] 16 Jan, 2012 [facility] [place] [facility] [address] [id number] [place] [address] 05 Jan, 2012 [facility] [address] [id number] [place] [address] 20 Dec, 2011 [facility] [address] [id number] [place] [address] 16 Dec, 2011 [facility] [address] [id number] [place] [address] 15 Dec, 2011 [facility] [address] [id number] [place] [address] 30 Nov, 2011 [facility] [address] [id number] [place] [address] 19 Oct, 2011 [facility] [place] [facility] [address] [id number] [place] [address] 15 Oct, 2011 [facility] [place] [facility] [address] [id number] [place] [address] 15 Oct, 2011 [facility] [place] [facility] [address] [id number] [place] [address] 14 Oct, 2011 [facility] [place] [facility] [address] [id number] [place] [address] 14 Oct, 2011 [facility] [place] [facility] [address] [id number] [place] [address] 12 Oct, 2011 [facility] [place] [facility] [address] [id number] [place] [address] 09 Oct, 2011 [facility] [place] [facility] [address] [id number] [place] [address] Oct, [facility] [place] [facility] [address] [id number] [place] [address] Sep, [facility] [place] [facility] [address] [id number] [place] [address] 17 Sep, 2011 [facility] [place] [facility] [address] [id number] [place] [address] 14 Sep, 2011 [facility] [place] [facility] [address] [id number] [place] [address] Sep, [facility] [place] [facility] [address] [id number] [place] [address] Sep, [facility] [place] [facility] [address] [id number] [place] [address] Sep, [facility] [place] [facility] [address] [id number] [place] [address] Sep, [facility] [place] [facility] [address] [id number] [place] [address] Sep, [facility] [place] [facility] [address] [id number], [place] [address] Sep, [facility] [place] [facility] [address] [id number] [place] [address] 24 Aug, 2011 [facility] [place] [facility] [address] [id number] [place] [address] 15 Jul, 2011 [facility] [place] [facility] [address] [id number] [place] [address] Oct, [facility] [place] [facility] [address] [id number], [place] [address] Oct, [facility] [address] [facility] [id number] [place] [address] Oct, IMMUNIZATIONS No Known Immunizations SOCIAL HISTORY Never Assessed REASON FOR VISIT upload PLAN OF CARE VITAL SIGNS MEDICATIONS Medication [...]
--- OUTSIDE RECORDS SUMMARY | 2018-04-25 06:51 | XMS REPORT ---
Author Author ALAN CARABALLO [facility] eClinicalWorks Address Unknown Phone Unavailable Care Team Providers Care Explosives Engineer Name Role Phone ALAN CARABALLO CP Unavailable [...] End Date Status Dosage Tramadol HCl [facility] [address]-88 50 MG Orally 1 tablet in the morning and 2 tablets in the evening March 23, 2015 1 tablet Results No Known Results Summary Purpose eClinicalWorks Submission
--- OUTSIDE RECORDS SUMMARY | 2018-04-25 06:52 | XMS REPORT ---
Author Author ALAN CARABALLO [facility] eClinicalWorks Address Unknown Phone Unavailable Care Team Providers Care Central Supply Worker Name Role Phone ALAN CARABALLO CP Unavailable [...] 250.01 Active Problem Orthostatic hypotension 458.0 Active Assessment Chronic kidney disease, unspecified N18.9 Active Problem Type 1 diabetes mellitus with hypoglycemia without coma E10.649 Active Problem Type 1 diabetes mellitus with hyperglycemia E10.65 Active Assessment Proteinuria, unspecified R80.9 Active Problem Type 1 diabetes mellitus with ketoacidosis without coma E10.10 Active Assessment 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 Contour Next Test [facility] [id number] TEST 10 TIMES A DAY Ferrous Sulfate [facility] [address]-86 65 mg Orally Once a day Dec 01, 2014 by Oral route 325mg QD by Dr Jensen HahnZmsaganuez-WGKA-Ztbk-Cod [facility] [address]-22 [id number] MG TAKE ONE CAPSULE BY MOUTH EVERY 4 HOURS NEEDED (NOT TO EXCEED 6 CAPSULES/24 HOURS) Gig-Thdyavgi-Zsar-FA NDC 0 65-1 MG Orally not defined Tramadol HCl [facility] [address]-43 50 MG Orally 1 tablet QAM/2 tabs QPM March 23, 2015 1 tablet fludrocortisone NDC 0 0.1 mg Dec 02, 2013 take 0.5 tablet by Oral route 1 time per day Gemfibrozil [facility] [address]-66 600 MG Orally Twice a day 1 tablet Aranesp (Alb Free) SureClick NDC 0 not defined Celexa [facility] 81170790189 10 MG 1 tablet by Oral route 1 time per day Requip [facility] 48660667345 0.25 MG 1 tablet by Oral route 1 time per day Procedures Procedure Coding System Code Date Office Visit, Est Pt., Level 3 CPT-4 82978 Dec 12, 2015 [facility] VISIT ESTABLISHED PATIENT CPT-4 G0467 Dec 12, 2015 Vital Signs Date/Time: Dec 12, 2015 Temperature 98.6 F Weight 124 lbs Height 62 in BMI 22.68 Index Blood Pressure Diastolic 88 mmHg Blood Pressure Systolic 130 mmHg Cardiac Monitoring Heart Rate 78 bpm Results No Known Results Summary Purpose eClinicalWorks Submission
[2018-04-25] MEDS: TETRACAINE 0.5% OPHTH SOLN 4 ML BTL (SINGLE DOSE ONLY) OU PRN ×4 (06:55→07:05)
--- OUTSIDE RECORDS SUMMARY | 2018-04-25 06:56 | XMS REPORT | Continuity of Care Document ---
Author Author [facility] Address Unknown Phone Unavailable Allergies Active Description Code Type Severity Reaction Onset Reported/Identified Relationship to Patient Clinical Status Yes simvastatin Drug Allergy N/A N/A 10/02/2011 Yes simvastatin Drug Allergy 10/02/2011 Yes lisinopril Drug Allergy N/A N/A 01/09/2012 Yes lisinopril Drug Allergy 01/09/2012 Yes Cozaar 25 mg Tablet Drug Allergy N/A N/A 02/27/2012 Yes niacin 500 mg Tablet Drug Allergy N/A N/A 02/27/2012 Yes Cozaar 25 mg Tablet Drug Allergy 02/27/2012 Yes niacin 500 mg Tablet Drug Allergy 02/27/2012 Yes lisinopril [id number] Drug Allergy Severe ANAPHYLAXIS 03/18/2012 Yes Byeqwej-Dag-Ifa Reductase Inhibitor [id number] Drug Allergy Severe ANAPHYLAXIS 03/18/2012 Yes gabapentin Drug Allergy N/A N/A 11/09/2013 Yes Cozaar,Niacin, Simvastatin Cozaar,Niacin, Simvastatin Unknown N/A 03/10/2015 Medications There is no data. 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 10/24/1011 COREY NGUYEN MD, Ot Z79.899 OTHER [facility] (CURRENT) DRUG THERAPY 10/24/1011 COREY NGUYEN MD, Ot Z87.891 PERSONAL HISTORY OF NICOTINE DEPENDENCE 11/04/2009 RASHMI GRAVES, ALAN S 250.01 Diabetes Mellitus Type I 11/04/2009 250.01 Diabetes Mellitus Type I 11/04/2009 250.01 Diabetes Mellitus Type I 11/04/2009 250.01 Diabetes Mellitus Type I 11/04/2009 250.01 Diabetes Mellitus Type I 11/04/2009 250.01 Diabetes Mellitus Type I 11/04/2009 PIERSON DO, LORENA K 250.01 Diabetes Mellitus Type I 11/04/2009 PIERSON DO, LORENA K 250.01 Diabetes Mellitus Type I 11/04/2009 PIERSON DO, LORENA K 250.01 Diabetes Mellitus Type I 11/04/2009 PIERSON DO, LORENA K 250.01 Diabetes Mellitus Type I 11/04/2009 RASHMI GRAVES ALAN S 250.01 Diabetes Mellitus Type I 11/04/2009 PIERSON DO, LORENA K 250.01 Diabetes Mellitus Type I 11/04/2009 RASHMI GRAVES ALAN S 250.01 Diabetes Mellitus Type I 11/04/2009 RASHMI GRAVES ALAN S 250.01 Diabetes Mellitus Type I 11/04/2009 RASHMI GRAVES ALAN S 250.01 Diabetes Mellitus Type I 11/04/2009 RASHMI GRAVES, ALAN S 250.01 Diabetes Mellitus Type I 11/04/2009 PIERSON DO, LORENA K 250.01 Diabetes Mellitus Type I 11/04/2009 PIERSON DO, LORENA K 250.01 Diabetes Mellitus Type I 11/04/2009 RASHMI GRAVES, ALAN S 250.01 Diabetes Mellitus Type I 11/04/2009 RASHMI GRAVES LAAN S 250.01 Diabetes Mellitus Type I 11/04/2009 NADINE GRAVES CHEN A 250.01 Diabetes Mellitus Type I 11/04/2009 RASHMI GRAVES, ALAN S 250.01 Diabetes Mellitus Type I 11/04/2009 250.01 Diabetes Mellitus Type I 11/04/2009 RASHMI GRAVES ALAN S 250.01 Diabetes Mellitus Type I 11/04/2009 RASHMI GRAVES ALAN S 250.01 Diabetes Mellitus Type I 11/04/2009 RASHMI GRAVES ALAN S 250.01 Diabetes Mellitus Type I 11/04/2009 RASHMI GRAVES ALAN S 250.01 Diabetes Mellitus Type I 12/14/2009 RASHMI CHINESE TEACHER, ALAN S 250.03 DIABETES MELLITUS TYPE 1 - UNCONTROLLED 12/14/2009 250.03 DIABETES MELLITUS TYPE 1 - UNCONTROLLED 12/14/2009 250.03 DIABETES MELLITUS TYPE 1 - UNCONTROLLED 12/14/2009 250.03 DIABETES MELLITUS TYPE 1 - UNCONTROLLED 12/14/2009 250.03 DIABETES MELLITUS TYPE 1 - UNCONTROLLED 12/14/2009 250.03 DIABETES MELLITUS TYPE 1 - UNCONTROLLED 12/14/2009 PIERSON DO, LORENA K 250.03 DIABETES MELLITUS TYPE 1 - UNCONTROLLED 12/14/2009 PIERSON DO, LORENA K 250.03 DIABETES MELLITUS TYPE 1 - UNCONTROLLED 12/14/2009 PIERSON DO, LORENA K 250.03 DIABETES MELLITUS TYPE 1 - UNCONTROLLED 12/14/2009 PIERSON DO, LORENA K 250.03 DIABETES MELLITUS TYPE 1 - UNCONTROLLED 12/14/2009 RASHMI CHINESE TEACHER, ALAN S 250.03 DIABETES MELLITUS TYPE 1 - UNCONTROLLED 12/14/2009 PIERSON DO, LORENA K 250.03 DIABETES MELLITUS TYPE 1 - UNCONTROLLED 12/14/2009 RASHMI CHINESE TEACHER, ALAN S 250.03 DIABETES MELLITUS TYPE 1 - UNCONTROLLED 12/14/2009 RASHMI CHINESE TEACHER, ALAN S 250.03 DIABETES MELLITUS TYPE 1 - UNCONTROLLED 12/14/2009 RASHMI CHINESE TEACHER, ALAN S 250.03 DIABETES MELLITUS TYPE 1 - UNCONTROLLED 12/14/2009 RASHMI CHINESE TEACHER, ALAN S 250.03 DIABETES MELLITUS TYPE 1 - UNCONTROLLED 12/14/2009 PIERSON DO, LORENA K 250.03 DIABETES MELLITUS TYPE 1 - UNCONTROLLED 12/14/2009 PIERSON DO, LORENA K 250.03 DIABETES MELLITUS TYPE 1 - UNCONTROLLED 12/14/2009 RASHMI CHINESE TEACHER, ALAN S 250.03 DIABETES MELLITUS TYPE 1 - UNCONTROLLED 12/14/2009 RASHMI CHINESE TEACHER, ALAN S 250.03 DIABETES MELLITUS TYPE 1 - UNCONTROLLED 12/14/2009 CHEN MCCOY APRN A 250.03 DIABETES MELLITUS TYPE 1 - UNCONTROLLED 12/14/2009 RASHMI CHINESE TEACHER, ALAN S 250.03 DIABETES MELLITUS TYPE 1 - UNCONTROLLED 12/14/2009 250.03 DIABETES MELLITUS TYPE 1 - UNCONTROLLED 12/14/2009 RASHMI CHINESE TEACHER ALAN S 250.03 DIABETES MELLITUS TYPE 1 - UNCONTROLLED 12/14/2009 ALAN CARABALLO APRN S 250.03 DIABETES MELLITUS TYPE 1 - UNCONTROLLED 12/14/2009 ANTONIO CARABALLO APRNA S 250.03 DIABETES MELLITUS TYPE 1 - UNCONTROLLED 12/14/2009 ANTONIO CARABALLO APRNA S 250.03 DIABETES MELLITUS TYPE 1 - UNCONTROLLED 05/29/2010 Ot 250.81 05/29/2010 Ot 780.39 05/29/2010 Ot V58.67 06/07/2010 Ot 250.81 06/07/2010 Ot 599.0 12/17/2010 Ot 250.01 12/17/2010 Ot 789.00 12/17/2010 Ot V58.67 05/25/2011 Ot 782.1 NONSPECIF SKIN ERUPT NEC 08/05/2011 Ot 372.30 CONJUNCTIVITIS NOS 08/09/2011 NATONIO CARABALLO APRNA S 372.00 Acute Conjunctivitis Unspecified 08/09/2011 372.00 Acute Conjunctivitis Unspecified 08/09/2011 372.00 Acute Conjunctivitis Unspecified 08/09/2011 372.00 Acute Conjunctivitis Unspecified 08/09/2011 372.00 Acute Conjunctivitis Unspecified 08/09/2011 372.00 Acute Conjunctivitis Unspecified 08/09/2011 PIERSON DO, LORENA K 372.00 Acute Conjunctivitis Unspecified 08/09/2011 PIERSON DO, LORENA K 372.00 Acute Conjunctivitis Unspecified 08/09/2011 PIERSON DO, LORENA K 372.00 Acute Conjunctivitis Unspecified 08/09/2011 PIERSON DO, LORENA K 372.00 Acute Conjunctivitis Unspecified 08/09/2011 ANTONIO CARABALLO APRNA S 372.00 Acute Conjunctivitis Unspecified 08/09/2011 PIERSON DO, LORENA K 372.00 Acute Conjunctivitis Unspecified 08/09/2011 NATONIO CARABALLO APRNA S 372.00 Acute Conjunctivitis Unspecified 08/09/2011 ANTONIO CARABALLO APRNA S 372.00 Acute Conjunctivitis Unspecified 08/09/2011 ANTONIO CARABALLO APRNA S 372.00 Acute Conjunctivitis Unspecified 08/09/2011 ANTONIO CARABALLO APRNA S 372.00 Acute Conjunctivitis Unspecified 08/09/2011 PIERSON DO, LORENA K 372.00 Acute Conjunctivitis Unspecified 08/09/2011 PIERSON DO, LORENA K 372.00 Acute Conjunctivitis Unspecified 08/09/2011 RASHMI CHINESE TEACHER, ALAN S 372.00 Acute Conjunctivitis Unspecified 08/09/2011 RASHMI CHINESE TEACHER, ALAN S 372.00 Acute Conjunctivitis Unspecified 08/09/2011 NADINE CHINESE TEACHER, CHEN A 372.00 Acute Conjunctivitis Unspecified 08/09/2011 RASHMI CHINESE TEACHER, ALAN S 372.00 Acute Conjunctivitis Unspecified 08/09/2011 372.00 Acute Conjunctivitis Unspecified 08/09/2011 RASHMI CHINESE TEACHER, ALAN S 372.00 Acute Conjunctivitis Unspecified 08/09/2011 RASHMI CHINESE TEACHER, ALAN S 372.00 Acute Conjunctivitis Unspecified 08/09/2011 RASHMI CHINESE TEACHER, ALAN S 372.00 Acute Conjunctivitis Unspecified 08/09/2011 RASHMI CHINESE TEACHER, ALAN S 372.00 Acute Conjunctivitis Unspecified 08/22/2011 RASHMI GRAVES, ALAN S 272.4 HYPERLIPIDEMIA 08/22/2011 RASHMI GRAVES, ALAN S V58.69 taking high-risk medication 08/22/2011 272.4 HYPERLIPIDEMIA 08/22/2011 V58.69 taking high- risk medication 08/22/2011 272.4 HYPERLIPIDEMIA 08/22/2011 V58.69 taking high- risk medication 08/22/2011 272.4 HYPERLIPIDEMIA 08/22/2011 V58.69 taking high- risk medication 08/22/2011 272.4 HYPERLIPIDEMIA 08/22/2011 V58.69 taking high- risk medication 08/22/2011 272.4 HYPERLIPIDEMIA 08/22/2011 V58.69 taking high- risk medication 08/22/2011 PIERSON DO, LORENA K 272.4 HYPERLIPIDEMIA 08/22/2011 PIERSON DO LORENA K V58.69 taking high-risk medication 08/22/2011 PIERSON DO, LORENA K 272.4 HYPERLIPIDEMIA 08/22/2011 PIERSON DO LORENA K V58.69 taking high-risk medication 08/22/2011 PIERSON DO, LORENA K 272.4 HYPERLIPIDEMIA 08/22/2011 PIERSON DO, LORENA K V58.69 taking high-risk medication 08/22/2011 PIERSON DO LORENA K 272.4 HYPERLIPIDEMIA 08/22/2011 PIERSON DO LORENA K V58.69 taking high-risk medication 08/22/2011 RASHMI GRAVES ALAN S 272.4 HYPERLIPIDEMIA 08/22/2011 RASHMI GRAVES ALAN S V58.69 taking high-risk medication 08/22/2011 PIERSON DO, LORENA K 272.4 HYPERLIPIDEMIA 08/22/2011 PIERSON DO, LORENA K V58.69 taking high-risk medication 08/22/2011 RASHMI HARVEYN ALAN S 272.4 HYPERLIPIDEMIA 08/22/2011 RASHMI HARVEYN ALAN S V58.69 taking high-risk medication 08/22/2011 RASHMI HARVEYN ALAN S 272.4 HYPERLIPIDEMIA 08/22/2011 RASHMIMARGUERITE HARVEYN ALAN S V58.69 taking high-risk medication 08/22/2011 RASHMI GRAVES ALAN S 272.4 HYPERLIPIDEMIA 08/22/2011 RASHMI GRAVES ALAN S V58.69 taking high-risk medication 08/22/2011 RASHMI GRAVES ALAN S 272.4 HYPERLIPIDEMIA 08/22/2011 RASHMI GRAVES ALAN S V58.69 taking high-risk medication 08/22/2011 PIERSON DO, LORENA K 272.4 HYPERLIPIDEMIA 08/22/2011 PIERSON DO, LORENA K V58.69 taking high-risk medication 08/22/2011 PIERSON DO, LORENA K 272.4 HYPERLIPIDEMIA 08/22/2011 PIERSON DO, LORENA K V58.69 taking high-risk medication 08/22/2011 RASHMI GRAVES ALAN S 272.4 HYPERLIPIDEMIA 08/22/2011 RASHMI GRAVES ALAN S V58.69 taking high-risk medication 08/22/2011 RASHMI GRAVES ALAN S 272.4 HYPERLIPIDEMIA 08/22/2011 RASHMI GRAVES ALAN S V58.69 taking high-risk medication 08/22/2011 NADINE APRN, CHEN A 272.4 HYPERLIPIDEMIA 08/22/2011 NADINE CHINESE TEACHER, CHEN A V58.69 taking high-risk medication 08/22/2011 RASHMI GRAVES ALAN S 272.4 HYPERLIPIDEMIA 08/22/2011 MARTIN CARABALLO APRNNDA S V58.69 taking high-risk medication 08/22/2011 272.4 HYPERLIPIDEMIA 08/22/2011 V58.69 taking high- risk medication 08/22/2011 RASHMI CHINESE TEACHER, ALAN S 272.4 HYPERLIPIDEMIA 08/22/2011 RASHMI CHINESE TEACHER, ALAN S V58.69 taking high-risk medication 08/22/2011 RASHMI CHINESE TEACHER, ALAN S 272.4 HYPERLIPIDEMIA 08/22/2011 RASHMI CHINESE TEACHER, ALAN S V58.69 taking high-risk medication 08/22/2011 RASHMI CHINESE TEACHER, ALAN S 272.4 HYPERLIPIDEMIA 08/22/2011 RASHMI CHINESE TEACHER, ALAN S V58.69 taking high-risk medication 08/22/2011 RASHMI CHINESE TEACHER, ALAN S 272.4 HYPERLIPIDEMIA 08/22/2011 RASHMI CHINESE TEACHER, ALAN S V58.69 taking high-risk medication 11/02/2011 RASHMI CHINESE TEACHER, ALAN S 250.80 Hypoglycemia (diabetic) 11/02/2011 250.80 Hypoglycemia (diabetic) 11/02/2011 250.80 Hypoglycemia (diabetic) 11/02/2011 250.80 Hypoglycemia (diabetic) 11/02/2011 250.80 Hypoglycemia (diabetic) 11/02/2011 250.80 Hypoglycemia (diabetic) 11/02/2011 PIERSON DO, LORENA K 250.80 Hypoglycemia (diabetic) 11/02/2011 PIERSON DO, LORENA K 250.80 Hypoglycemia (diabetic) 11/02/2011 PIERSON DO, LORENA K 250.80 Hypoglycemia (diabetic) 11/02/2011 PIERSON DO, LORENA K 250.80 Hypoglycemia (diabetic) 11/02/2011 RASHMI CHINESE TEACHER, ALAN S 250.80 Hypoglycemia (diabetic) 11/02/2011 PIERSON DO, LORENA K 250.80 Hypoglycemia (diabetic) 11/02/2011 RASHMI CHINESE TEACHER, ALAN S 250.80 Hypoglycemia (diabetic) 11/02/2011 RASHMI CHINESE TEACHER, ALAN S 250.80 Hypoglycemia (diabetic) 11/02/2011 RASHMI CHINESE TEACHER, ALAN S 250.80 Hypoglycemia (diabetic) 11/02/2011 RASHMI CHINESE TEACHER, ALAN S 250.80 Hypoglycemia (diabetic) 11/02/2011 PIERSON DO, LORENA K 250.80 Hypoglycemia (diabetic) 11/02/2011 PIERSON DO, LORENA K 250.80 Hypoglycemia (diabetic) 11/02/2011 RASHMI CHINESE TEACHER, ALAN S 250.80 Hypoglycemia (diabetic) 11/02/2011 RASHMI CHINESE TEACHER, ALAN S 250.80 Hypoglycemia (diabetic) 11/02/2011 NADINE CHINESE TEACHER, CHEN A 250.80 Hypoglycemia (diabetic) 11/02/2011 RASHMI CHINESE TEACHER, ALAN S 250.80 Hypoglycemia (diabetic) 11/02/2011 250.80 Hypoglycemia (diabetic) 11/02/2011 RASHMI CHINESE TEACHER, ALAN S 250.80 Hypoglycemia (diabetic) 11/02/2011 RASHMI CHINESE TEACHER, ALAN S 250.80 Hypoglycemia (diabetic) 11/02/2011 RASHMI CHINESE TEACHER, ALAN S 250.80 Hypoglycemia (diabetic) 11/02/2011 RASHMI CHINESE TEACHER, ALAN S 250.80 Hypoglycemia (diabetic) 11/07/2011 RASHMI CHINESE TEACHER, ALAN S 791.0 MICROALBUMINURIA 11/07/2011 791.0 MICROALBUMINURIA 11/07/2011 791.0 MICROALBUMINURIA 11/07/2011 791.0 MICROALBUMINURIA 11/07/2011 791.0 MICROALBUMINURIA 11/07/2011 791.0 MICROALBUMINURIA 11/07/2011 PIERSON DO, LORENA K 791.0 MICROALBUMINURIA 11/07/2011 PIERSON DO, LORENA K 791.0 MICROALBUMINURIA 11/07/2011 PIERSON DO, LORENA K 791.0 MICROALBUMINURIA 11/07/2011 PIERSON DO, LORENA K 791.0 MICROALBUMINURIA 11/07/2011 RASHMI CHINESE TEACHER, ALAN S 791.0 MICROALBUMINURIA 11/07/2011 PIERSON DO, LORENA K 791.0 MICROALBUMINURIA 11/07/2011 RASHMI CHINESE TEACHER, ALAN S 791.0 MICROALBUMINURIA 11/07/2011 RASHMI CHINESE TEACHER, ALAN S 791.0 MICROALBUMINURIA 11/07/2011 RASHMI CHINESE TEACHER, ALAN S 791.0 MICROALBUMINURIA 11/07/2011 RASHMI CHINESE TEACHER, ALNA S 791.0 MICROALBUMINURIA 11/07/2011 PIERSON DO, LORENA K 791.0 MICROALBUMINURIA 11/07/2011 PIERSON DO, LORENA K 791.0 MICROALBUMINURIA 11/07/2011 RASHMI CHINESE TEACHER, ALAN S 791.0 MICROALBUMINURIA 11/07/2011 RASHMI CHINESE TEACHER, ALAN S 791.0 MICROALBUMINURIA 11/07/2011 NADINE CHINESE TEACHER, CHEN A 791.0 MICROALBUMINURIA 11/07/2011 RASHMI CHINESE TEACHER, ALAN S 791.0 MICROALBUMINURIA 11/07/2011 791.0 MICROALBUMINURIA 11/07/2011 RASHIM CHINESE TEACHER, ALAN S 791.0 MICROALBUMINURIA 11/07/2011 RASHMI CHINESE TEACHER, ALAN S 791.0 MICROALBUMINURIA 11/07/2011 RASHMI CHINESE TEACHER, ALAN S 791.0 MICROALBUMINURIA 11/07/2011 RASHMI CHINESE TEACHER, ALAN S 791.0 MICROALBUMINURIA 12/24/2011 RASHMI CHINESE TEACHER, ALAN S 564.1 IRRITABLE BOWEL SYNDROME 12/24/2011 RASHMI CHINESE TEACHER, ALAN S 789.00 Abdominal Pain Unspecified Site 12/24/2011 564.1 IRRITABLE BOWEL SYNDROME 12/24/2011 789.00 Abdominal Pain Unspecified Site 12/24/2011 564.1 IRRITABLE BOWEL SYNDROME 12/24/2011 789.00 Abdominal Pain Unspecified Site 12/24/2011 564.1 IRRITABLE BOWEL SYNDROME 12/24/2011 789.00 Abdominal Pain Unspecified Site 12/24/2011 564.1 IRRITABLE BOWEL SYNDROME 12/24/2011 789.00 Abdominal Pain Unspecified Site 12/24/2011 564.1 IRRITABLE BOWEL SYNDROME 12/24/2011 789.00 Abdominal Pain Unspecified Site 12/24/2011 PIERSON DO, LORENA K 564.1 IRRITABLE BOWEL SYNDROME 12/24/2011 PIERSON DO, LORENA K 789.00 Abdominal Pain Unspecified Site 12/24/2011 PIERSON DO, LORENA K 564.1 IRRITABLE BOWEL SYNDROME 12/24/2011 PIERSON DO, LORENA K 789.00 Abdominal Pain Unspecified Site 12/24/2011 PIERSON DO, LORENA K 564.1 IRRITABLE BOWEL SYNDROME 12/24/2011 PIERSON DO, LORENA K 789.00 Abdominal Pain Unspecified Site 12/24/2011 PIERSON DO, LORENA K 564.1 IRRITABLE BOWEL SYNDROME 12/24/2011 PIERSON DO, LORENA K 789.00 Abdominal Pain Unspecified Site 12/24/2011 RASHMI CHINESE TEACHER, ALAN S 564.1 IRRITABLE BOWEL SYNDROME 12/24/2011 RASHMI CHINESE TEACHER, ALAN S 789.00 Abdominal Pain Unspecified Site 12/24/2011 PIERSON DO, LORENA K 564.1 IRRITABLE BOWEL SYNDROME 12/24/2011 PIERSON DO, LORENA K 789.00 Abdominal Pain Unspecified Site 12/24/2011 RASHMI CHINESE TEACHER, ALAN S 564.1 IRRITABLE BOWEL SYNDROME 12/24/2011 RASHMI CHINESE TEACHER, ALAN S 789.00 Abdominal Pain Unspecified Site 12/24/2011 RASHMI CHINESE TEACHER, ALAN S 564.1 IRRITABLE BOWEL SYNDROME 12/24/2011 RASHMI CHINESE TEACHER, ALAN S 789.00 Abdominal Pain Unspecified Site 12/24/2011 RASHMI CHINESE TEACHER, ALAN S 564.1 IRRITABLE BOWEL SYNDROME 12/24/2011 RASHMI CHINESE TEACHER, ALAN S 789.00 Abdominal Pain Unspecified Site 12/24/2011 RASHMI CHINESE TEACHER, ALAN S 564.1 IRRITABLE BOWEL SYNDROME 12/24/2011 RASHMI CHINESE TEACHER, ALAN S 789.00 Abdominal Pain Unspecified Site 12/24/2011 PIERSON DO, LORENA K 564.1 IRRITABLE BOWEL SYNDROME 12/24/2011 PIERSON DO, LORENA K 789.00 Abdominal Pain Unspecified Site 12/24/2011 PIERSON DO, LORENA K 564.1 IRRITABLE BOWEL SYNDROME 12/24/2011 PEIRSON DO, LORENA K 789.00 Abdominal Pain Unspecified Site 12/24/2011 RASHMI CHINESE TEACHER, ALAN S 564.1 IRRITABLE BOWEL SYNDROME 12/24/2011 RASHMI CHINESE TEACHER, ALAN S 789.00 Abdominal Pain Unspecified Site 12/24/2011 RASHMI CHINESE TEACHER, ALNA S 564.1 IRRITABLE BOWEL SYNDROME 12/24/2011 RASHMI CHINESE TEACHER, ALAN S 789.00 Abdominal Pain Unspecified Site 12/24/2011 NADINE CHINESE TEACHER, CHEN A 564.1 IRRITABLE BOWEL SYNDROME 12/24/2011 NADINE CHINESE TEACHER, CHEN A 789.00 Abdominal Pain Unspecified Site 12/24/2011 RASHMI CHINESE TEACHER, ALAN S 564.1 IRRITABLE BOWEL SYNDROME 12/24/2011 RASHMI CHINESE TEACHER, ALAN S 789.00 Abdominal Pain Unspecified Site 12/24/2011 564.1 IRRITABLE BOWEL SYNDROME 12/24/2011 789.00 Abdominal Pain Unspecified Site 12/24/2011 RASHMI CHINESE TEACHER, ALAN S 564.1 IRRITABLE BOWEL SYNDROME 12/24/2011 RASHMI CHINESE TEACHER, ALAN S 789.00 Abdominal Pain Unspecified Site 12/24/2011 RASHMI CHINESE TEACHER, ALAN S 564.1 IRRITABLE BOWEL SYNDROME 12/24/2011 RASHMI CHINESE TEACHER, ALAN S 789.00 Abdominal Pain Unspecified Site 12/24/2011 RASHMI CHINESE TEACHER, ALAN S 564.1 IRRITABLE BOWEL SYNDROME 12/24/2011 RASHMI CHINESE TEACHER, ALAN S 789.00 Abdominal Pain Unspecified Site 12/24/2011 RASHMI CHINESE TEACHER, ALAN S 564.1 IRRITABLE BOWEL SYNDROME 12/24/2011 RASHMI CHINESE TEACHER, ALAN S 789.00 Abdominal Pain Unspecified Site 01/28/2012 RASHMI CHINESE TEACHER, ALAN S 465.9 Upper Respiratory Infection 01/28/2012 465.9 Upper Respiratory Infection 01/28/2012 465.9 Upper Respiratory Infection 01/28/2012 465.9 Upper Respiratory Infection 01/28/2012 465.9 Upper Respiratory Infection 01/28/2012 465.9 Upper Respiratory Infection 01/28/2012 PIERSON DO, LORENA K 465.9 Upper Respiratory Infection 01/28/2012 PIERSON DO, LORENA K 465.9 Upper Respiratory Infection 01/28/2012 PIERSON DO, LORENA K 465.9 Upper Respiratory Infection 01/28/2012 PIERSON DO, LORENA K 465.9 Upper Respiratory Infection 01/28/2012 RASHMI CHINESE TEACHER, ALAN S 465.9 Upper Respiratory Infection 01/28/2012 PIERSON DO, LORENA K 465.9 Upper Respiratory Infection 01/28/2012 RASHMI CHINESE TEACHER, ALAN S 465.9 Upper Respiratory Infection 01/28/2012 RASHMI CHINESE TEACHER, ALAN S 465.9 Upper Respiratory Infection 01/28/2012 RASHMI CHINESE TEACHER, ALAN S 465.9 Upper Respiratory Infection 01/28/2012 RASHMI CHINESE TEACHER, ALAN S 465.9 Upper Respiratory Infection 01/28/2012 PIERSON DO, LORENA K 465.9 Upper Respiratory Infection 01/28/2012 PIERSON DO, LORENA K 465.9 Upper Respiratory Infection 01/28/2012 RASHMI CHINESE TEACHER, ALAN S 465.9 Upper Respiratory Infection 01/28/2012 RASHMI CHINESE TEACHER, ALAN S 465.9 Upper Respiratory Infection 01/28/2012 NADINE CHINESE TEACHER, CHEN A 465.9 Upper Respiratory Infection 01/28/2012 RASHMI CHINESE TEACHER, ALAN S 465.9 Upper Respiratory Infection 01/28/2012 465.9 Upper Respiratory Infection 01/28/2012 RASHMI CHINESE TEACHER, ALAN S 465.9 Upper Respiratory Infection 01/28/2012 RASHMI CHINESE TEACHER, ALAN S 465.9 Upper Respiratory Infection 01/28/2012 RASHMI CHINESE TEACHER, ALAN S 465.9 Upper Respiratory Infection 01/28/2012 RASHMI CHINESE TEACHER, ALAN S 465.9 Upper Respiratory Infection 04/02/2012 RASHMI CHINESE TEACHER, ALAN S 780.99 ANHEDONIA 04/02/2012 780.99 ANHEDONIA 04/02/2012 780.99 ANHEDONIA 04/02/2012 780.99 ANHEDONIA 04/02/2012 780.99 ANHEDONIA 04/02/2012 780.99 ANHEDONIA 04/02/2012 PIERSON DO, LORENA K 780.99 ANHEDONIA 04/02/2012 PIERSON DO, LORENA K 780.99 ANHEDONIA 04/02/2012 PIERSON DO, LORENA K 780.99 ANHEDONIA 04/02/2012 PIERSON DO, LORENA K 780.99 ANHEDONIA 04/02/2012 RASHMI CHINESE TEACHER, ALAN S 780.99 ANHEDONIA 04/02/2012 PIERSON DO, LORENA K 780.99 ANHEDONIA 04/02/2012 RASHMI CHINESE TEACHER, ALAN S 780.99 ANHEDONIA 04/02/2012 RASHMI CHINESE TEACHER, ALAN S 780.99 ANHEDONIA 04/02/2012 RASHMI CHINESE TEACHER, ALAN S 780.99 ANHEDONIA 04/02/2012 RASHMI CHINESE TEACHER, ALAN S 780.99 ANHEDONIA 04/02/2012 PIERSON DO, LORENA K 780.99 ANHEDONIA 04/02/2012 PIERSON DO, LORENA K 780.99 ANHEDONIA 04/02/2012 RASHMI CHINESE TEACHER, ALAN S 780.99 ANHEDONIA 04/02/2012 RASHMI CHINESE TEACHER, ALAN S 780.99 ANHEDONIA 04/02/2012 NADINE CHINESE TEACHER, CHEN A 780.99 ANHEDONIA 04/02/2012 RASHMI CHINESE TEACHER, ALAN S 780.99 ANHEDONIA 04/02/2012 780.99 ANHEDONIA 04/02/2012 RASHMI CHINESE TEACHER, ALAN S 780.99 ANHEDONIA 04/02/2012 RASHMI CHINESE TEACHER, ALAN S 780.99 ANHEDONIA 04/02/2012 RASHMI CHINESE TEACHER, ALAN S 780.99 ANHEDONIA 04/02/2012 RASHMI CHINESE TEACHER, ALAN S 780.99 ANHEDONIA 05/26/2012 RASHMI CHINESE TEACHER, ALAN S 458.9 HYPOTENSION 05/26/2012 458.9 HYPOTENSION 05/26/2012 458.9 HYPOTENSION 05/26/2012 458.9 HYPOTENSION 05/26/2012 458.9 HYPOTENSION 05/26/2012 458.9 HYPOTENSION 05/26/2012 PIERSON DO, LORENA K 458.9 HYPOTENSION 05/26/2012 PIERSON DO, LORENA K 458.9 HYPOTENSION 05/26/2012 PIERSON DO, LORENA K 458.9 HYPOTENSION 05/26/2012 PIERSON DO, LORENA K 458.9 HYPOTENSION 05/26/2012 RASHMI CHINESE TEACHER, ALAN S 458.9 HYPOTENSION 05/26/2012 PIERSON DO, LORENA K 458.9 HYPOTENSION 05/26/2012 RASHMI CHINESE TEACHER, ALAN S 458.9 HYPOTENSION 05/26/2012 RASHMI CHINESE TEACHER, ALAN S 458.9 HYPOTENSION 05/26/2012 RASHMI CHINESE TEACHER, ALAN S 458.9 HYPOTENSION 05/26/2012 RASHMI CHINESE TEACHER, ALAN S 458.9 HYPOTENSION 05/26/2012 PIERSON DO, LORENA K 458.9 HYPOTENSION 05/26/2012 PIERSON DO, LORENA K 458.9 HYPOTENSION 05/26/2012 RASHMI CHINESE TEACHER, ALAN S 458.9 HYPOTENSION 05/26/2012 RASHMI CHINESE TEACHER, ALAN S 458.9 HYPOTENSION 05/26/2012 NADINE CHINESE TEACHER, CHEN A 458.9 HYPOTENSION 05/26/2012 RASHMI CHINESE TEACHER, ALAN S 458.9 HYPOTENSION 05/26/2012 458.9 HYPOTENSION 05/26/2012 RASHMI CHINESE TEACHER, ALAN S 458.9 HYPOTENSION 05/26/2012 RASHMI CHINESE TEACHER, ALAN S 458.9 HYPOTENSION 05/26/2012 RASHMI CHINESE TEACHER, ALAN S 458.9 HYPOTENSION 05/26/2012 RASHMI CHINESE TEACHER, ALAN S 458.9 HYPOTENSION 05/30/2012 Ot 250.01 05/30/2012 Ot 272.4 05/30/2012 Ot 276.51 05/30/2012 Ot 300.00 05/30/2012 Ot 311 05/30/2012 Ot 564.1 06/10/2012 ANTONIO CARABALLO APRNA S 380.10 Infective Otitis Externa Unspecified 06/10/2012 MARTIN CARABALLO APRNNDA S 784.7 Epistaxis 06/10/2012 380.10 Infective Otitis Externa Unspecified 06/10/2012 784.7 Epistaxis 06/10/2012 380.10 Infective Otitis Externa Unspecified 06/10/2012 784.7 Epistaxis 06/10/2012 380.10 Infective Otitis Externa Unspecified 06/10/2012 784.7 Epistaxis 06/10/2012 380.10 Infective Otitis Externa Unspecified 06/10/2012 784.7 Epistaxis 06/10/2012 380.10 Infective Otitis Externa Unspecified 06/10/2012 784.7 Epistaxis 06/10/2012 PIERSON DO, LORENA K 380.10 Infective Otitis Externa Unspecified 06/10/2012 PIERSON DO, LORENA K 784.7 Epistaxis 06/10/2012 PIERSON DO, LORENA K 380.10 Infective Otitis Externa Unspecified 06/10/2012 PIERSON DO, LORENA K 784.7 Epistaxis 06/10/2012 PIERSON DO, LORENA K 380.10 Infective Otitis Externa Unspecified 06/10/2012 PIERSON DO, LORENA K 784.7 Epistaxis 06/10/2012 PIERSON DO, LORENA K 380.10 Infective Otitis Externa Unspecified 06/10/2012 PIERSON DO, LORENA K 784.7 Epistaxis 06/10/2012 MARTIN CARABALLO APRNNDA S 380.10 Infective Otitis Externa Unspecified 06/10/2012 RASHMI CHINESE TEACHER, ALAN S 784.7 Epistaxis 06/10/2012 PIERSON DO, LORENA K 380.10 Infective Otitis Externa Unspecified 06/10/2012 PIERSON DO, LORENA K 784.7 Epistaxis 06/10/2012 RASHMI CHINESE TEACHER, ALAN S 380.10 Infective Otitis Externa Unspecified 06/10/2012 RASHMI CHINESE TEACHER, ALAN S 784.7 Epistaxis 06/10/2012 RASHMI CHINESE TEACHER, ALAN S 380.10 Infective Otitis Externa Unspecified 06/10/2012 RASHMI CHINESE TEACHER, ALAN S 784.7 Epistaxis 06/10/2012 RASHMI CHINESE TEACHER, ALAN S 380.10 Infective Otitis Externa Unspecified 06/10/2012 RASHMI CHINESE TEACHER, ALAN S 784.7 Epistaxis 06/10/2012 RASHMI CHINESE TEACHER, ALAN S 380.10 Infective Otitis Externa Unspecified 06/10/2012 RASHMI CHINESE TEACHER, ALAN S 784.7 Epistaxis 06/10/2012 PIERSON DO, LORENA K 380.10 Infective Otitis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 COREY NGUYEN MD Ot 564.1 IRRITABLE BOWEL SYNDROME 11/01/2014 COREY NGUYEN MD Ot V15.82 HISTORY OF TOBACCO USE 11/01/2014 COREY NGUYEN MD Ot V45.85 INSULIN PUMP STATUS 11/01/2014 COREY NGUYEN MD Ot V58.69 OTH MED,LT,CURRENT USE 11/22/2014 RASHMI GRAVES ALAN S 333.94 RESTLESS LEGS SYNDROME (RLS) 11/22/2014 RASHMI GRAVES ALAN S 333.94 RESTLESS LEGS SYNDROME (RLS) 11/22/2014 RASHMI GRAVES, ALAN S 333.94 RESTLESS LEGS SYNDROME (RLS) 11/22/2014 RASHMI GRAVES ALAN S 333.94 RESTLESS LEGS SYNDROME (RLS) 12/01/2014 RASHMI GRAVES ALAN S 458.0 ORTHOSTATIC HYPOTENSION 12/01/2014 RASHMI GRAVES ALAN S 458.0 ORTHOSTATIC HYPOTENSION 12/01/2014 RASHMI GRAVES ALAN S 458.0 ORTHOSTATIC HYPOTENSION 02/15/2015 RASHMI CHINESE TEACHER, ALAN S 475 PERITONSILLAR ABSCESS 02/15/2015 RASHMI CHINESE TEACHER, ALAN S 475 PERITONSILLAR ABSCESS 02/23/2015 PATRICK CASTILLO, COREY Ot 250.01 02/23/2015 PATRICK CASTILLO, COREY Ot 285.9 02/23/2015 PATRICK CASTILLO, COREY Ot 564.1 02/23/2015 PATRICK CASTILLO, COREY Ot V15.82 02/23/2015 PATRICK CASTILLO, COREY Ot V45.85 02/23/2015 PATRICK CASTILLO, COREY Ot V58.69 03/02/2015 FACUNDO CASTILLO FACC, ALI FACP CCDS Ot 780.2 03/02/2015 FACUNDO CASTILLO FACC, ALI FACP CCDS Ot 786.59 03/02/2015 FACUNDO CASTILLO FACC, ALI FACP CCDS Ot 780.2 03/02/2015 FACUNDO CASTILLO FACC, ALI FACP CCDS Ot 786.59 03/02/2015 FACUNDO CASTILLO FACC, ALI FACP CCDS Ot 729.81 03/02/2015 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 Ot 611.72 03/02/2015 PATRICK CASTILLO, COREY Ot 250.01 03/02/2015 PATRICK CASTILLO, COREY Ot 285.9 03/02/2015 PATRICK CASTILLO, COREY Ot 564.1 03/02/2015 PATRICK CASTILLO, COREY Ot V15.82 03/02/2015 PATRICK CASTILLO, CROEY Ot V45.85 03/02/2015 PATRICK CASTILLO, COREY Ot V58.69 03/02/2015 PATRICK CASTILLO, COREY Ot 250.01 03/02/2015 PATRICK CASTILLO, COREY Ot 285.9 03/02/2015 PATRICK CASTILLO, COREY Ot 564.1 03/02/2015 PATRICK CASTILLO, COREY Ot V15.82 03/02/2015 PATRICK CASTILLO, COREY Ot V45.85 03/02/2015 PATRICK CASTILLO, COREY Ot V58.69 03/03/2015 PATRICK CASTILLO, COREY Ot 250.01 03/03/2015 PATRICK CASTILLO, COREY Ot 285.9 03/03/2015 PATRICK CASTILLO, COREY Ot 564.1 03/03/2015 PATRICK CASTILLO, MANISHA-YING Ot V15.82 03/03/2015 PATRICK CASTILLO, COREY Ot V45.85 03/03/2015 PATRICK CASTILLO, COREY Ot V58.69 03/09/2015 PATRICK CASTILLO, COREY Ot 250.01 03/09/2015 PATRICK CASTILLO, COREY Ot 285.9 03/09/2015 PATRICK CASTILLO, COREY Ot 564.1 03/09/2015 PATRICK CASTILLO, COREY Ot V15.82 03/09/2015 PATRICK CASTILLO, COREY Ot V45.85 03/09/2015 PATRICK CASTILLO, COREY Ot V58.69 03/10/2015 PATRICK CASTILLO, COREY Ot 250.01 03/10/2015 PATRICK CASTILLO, COREY Ot 285.9 03/10/2015 PATRICK CASTILLO, COREY Ot 564.1 03/10/2015 PATRICK CASTILLO, COREY Ot V15.82 03/10/2015 PATRICK CASTILLO, COREY Ot V45.85 03/10/2015 PATRICK CASTILLO, COREY Ot V58.69 05/31/2015 PATRICK CASTILLO, COREY Ot 250.01 DIAB JIMY WO COMPL, TYPE I [JUVENILE TYP 05/31/2015 PATRICK CASTILLO, COREY Ot 285.9 ANEMIA NOS 05/31/2015 PATRICK CASTILLO, COREY Ot 564.1 IRRITABLE BOWEL SYNDROME 05/31/2015 PATRICK CASTILLO, COREY Ot V15.82 HISTORY OF TOBACCO USE 05/31/2015 PATRICK CASTILLO, COREY Ot V45.85 INSULIN PUMP STATUS 05/31/2015 PATRICK CASTILLO, COREY Ot V58.69 OT MED,LT,CURRENT USE 06/03/2015 PATRICK CASTILLO, COREY Ot 250.01 06/03/2015 PATRICK CASTILLO, COREY Ot 285.9 06/03/2015 PATRICK CASTILLO, COREY Ot 564.1 06/03/2015 PATRICK CASTILLO, COREY Ot V15.82 06/03/2015 PATRICK CASTILLO, COREY Ot V45.85 06/03/2015 PATRICK CASTILLO, COREY Ot V58.69 06/03/2015 PATRICK CASTILLO, COREY Ot 250.01 06/03/2015 PATRICK CASTILLO, COREY Ot 285.9 06/03/2015 PATRICK CASTILLO, COREY Ot 564.1 06/03/2015 PATRICK CASTILLO, COREY Ot V15.82 06/03/2015 PATRICK CASTILLO, MANISHA-YING Ot V45.85 06/03/2015 PATRICK CASTILLO, COREY Ot V58.69 06/06/2015 PATRICK CASTILLO, COREY Ot 250.01 06/06/2015 PATRICK CASTILLO, COREY Ot 285.9 06/06/2015 PATRICK CASTILLO, COREY Ot 564.1 06/06/2015 PATRICK CASTILLO, COREY Ot V15.82 06/06/2015 PATRICK CASTILLO, COREY Ot V45.85 06/06/2015 PATRICK CASTILLO, MANISHA-YING Ot V58.69 06/07/2015 PATRICK CASTILLO, COREY Ot 250.01 06/07/2015 PATRICK CASTILLO, COREY Ot 285.9 06/07/2015 PATRICK CASTILLO, COREY Ot 564.1 06/07/2015 PATRICK CASTILLO, COREY Ot V15.82 06/07/2015 PATRICK CASTILLO, COREY Ot V45.85 06/07/2015 PATRICK CASTILLO, COREY Ot V58.69 08/24/2015 PATRICK CASTILLO, COREY Ot 250.01 DIAB JIMY WO COMPL, TYPE I [JUVENILE TYP 08/24/2015 PATRICK CASTILLO, COREY Ot 285.9 ANEMIA NOS 08/24/2015 PATRICK CASTILLO, COREY Ot 564.1 IRRITABLE BOWEL SYNDROME 08/24/2015 PATRICK CASTILLO, COREY Ot V15.82 HISTORY OF TOBACCO USE 08/24/2015 PATRICK CASTILLO, COREY Ot V45.85 INSULIN PUMP STATUS 08/24/2015 PATRICK CASTILLO, COREY Ot V58.69 OT MED,LT,CURRENT USE 08/29/2015 PATRICK CASTILLO, COREY Ot 250.01 08/29/2015 PATRICK CASTILLO, COREY Ot 285.9 08/29/2015 PATRICK CASTILLO, COREY Ot 564.1 08/29/2015 PATRICK CASTILLO, COREY Ot V15.82 08/29/2015 PATRICK CASTILLO, COREY Ot V45.85 08/29/2015 PATRICK CASTILLO, DYER-YING Ot V58.69 10/25/2015 PATRICK CASTILLO, DYER-YING Ot 250.01 10/25/2015 PATRICK CASTILLO, DYER-YING Ot 285.9 10/25/2015 PATRICK CASTILLO, DYER-YING Ot 564.1 10/25/2015 PATRICK CASTILLO, DYER-YING Ot V15.82 10/25/2015 PATRICK CASTILLO, DYER-YING Ot V45.85 10/25/2015 PATRICK CASTILLO, MANISHA-YING Ot V58.69 11/16/2015 PATRICK CASTILLO, MANISHA-YING Ot D64.9 11/16/2015 PATRICK CASTILLO, MANISHA-YING Ot E11.9 11/16/2015 PATRICK CASTILLO, MANISHA-YING Ot K58.9 11/16/2015 PATRICK CASTILLO, COREY Ot Z79.899 11/16/2015 PATRICK CASTILLO, COREY Ot Z87.891 11/22/2015 PATRICK CASTILLO, COREY Ot D64.9 11/22/2015 PATRICK CASTILLO, COREY Ot E11.9 11/22/2015 PATRICK CASTILLO, COREY Ot K58.9 11/22/2015 PATRICK CASTILLO, COREY Ot Z79.899 11/22/2015 PATRICK CASTILLO, COREY Ot Z87.891 11/28/2015 PATRICK CASTILLO, COREY Ot D63.1 ANEMIA IN CHRONIC KIDNEY DISEASE 11/28/2015 PATRICK CASTILLO, COREY Ot D64.9 11/28/2015 PATRICK CASTILLO, COREY Ot 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 11/28/2015 PATRICK CASTILLO, COREY Ot E11.9 11/28/2015 PATRICK CASTILLO, COREY Ot K58.9 IRRITABLE BOWEL SYNDROME WITHOUT DIARRHE 11/28/2015 PATRICK CASTILLO, COREY Ot N18.9 CHRONIC KIDNEY DISEASE, UNSPECIFIED 11/28/2015 PATRICK CASTILLO, COREY Ot Z79.899 OTHER [facility] (CURRENT) DRUG THERAPY 11/28/2015 PATRICK CASTILLO, COREY Ot Z87.891 PERSONAL HISTORY OF NICOTINE DEPENDENCE 12/02/2015 PATRICK CASTILLO, COREY Ot D64.9 12/02/2015 PATRICK CASTILLO, DYER-YING Ot E11.9 12/02/2015 PATRICK CASTILLO, MANISHA-YING Ot K58.9 12/02/2015 PATRICK CASTILLO, MANIHSA-YING Ot Z79.899 12/02/2015 PATRICK CASITLLO, MANISHA-YING Ot Z87.891 12/08/2015 PATRICK CASTILLO, MANISHA-YING Ot D64.9 12/08/2015 PATRICK CASTILLO, DYER-YING Ot E11.9 12/08/2015 PATRICK CASTILLO, MANISHA-YING Ot K58.9 12/08/2015 PATRICK CASTILLO, MANISHA-YING Ot Z79.899 12/08/2015 PATRICK CASTILLO, MANISHA-YING Ot Z87.891 12/27/2015 SAMANTHA DEE SPAR FINISHER Ot M70.61 01/11/2016 APTRICK CASTILLO, MANISHA-YING Ot D63.1 01/11/2016 PATRICK CASTILLO, MANISHA-YING Ot E10.21 01/11/2016 PATRICK CASTILLO, MANISHA-YING Ot K58.9 01/11/2016 PATRICK CASTILLO, MANISHA-YING Ot N18.9 01/11/2016 PATRICK CASTILLO, MANISHA-YING Ot Z79.4 01/11/2016 PATRICK CASTILLO, MANISHA-YING Ot Z79.899 01/11/2016 PATRICK CASTILLO, MANISHA-YING Ot Z87.891 01/19/2016 SAMANTHA DEE SPAR FINISHER Ot M70.61 01/19/2016 SAMANTHA DEE SPAR FINISHER Ot M70.61 TROCHANTERIC BURSITIS, RIGHT HIP 01/30/2016 FACUNDO CASTILLO FACC, ALI FACP CCDS Ot 780.2 01/30/2016 FACUNDO CASTILLO FACC, ALI FACP CCDS Ot 786.59 01/30/2016 FACUNDO CASTILLO FACC, ALI FACP CCDS Ot 780.2 01/30/2016 FACUNDO CASTILLO FACC, ALI FACP CCDS Ot 786.59 01/30/2016 FACUNDO CASTILLO FACC, ALI FACP CCDS Ot 729.81 01/30/2016 CHEN MCCOY APRN Ot 611.72 01/30/2016 PATRICK CASTILLO, COREY Ot D63.1 01/30/2016 PATRICK CASTILLO, DYER-YING Ot E10.21 01/30/2016 PATRICK CASTILLO, MANISHA-YING Ot K58.9 01/30/2016 PATRICK CASTILLO, TRISTENYING Ot N18.9 01/30/2016 PATRICK CASTILLO, DYER-YING Ot Z79.4 01/30/2016 PATRICK CASTILLO, MANISHA-YING Ot Z79.899 01/30/2016 PATRICK CASTILLO, DYER-YING Ot Z87.891 02/21/2016 HANNAH CASTILLO, LOR Ot D64.9 02/21/2016 HANNAH CASTILLO, LOR Ot E10.22 02/21/2016 HANNAH CASTILLO, LOR Ot I12.9 02/21/2016 HANNAH CASTILLO, LOR Ot N18.3 02/21/2016 HANNAH CASTILLO, LOR Ot R80.9 02/29/2016 PATRICK CASTILLO, COREY Ot D63.1 02/29/2016 PATRICK CASTILLO, COREY Ot E10.21 02/29/2016 PATRICK CASTILLO, COREY Ot K58.9 02/29/2016 PATRICK CASTILLO, COREY Ot N18.9 02/29/2016 PATRICK CASTILLO, COREY Ot Z79.4 02/29/2016 PATRICK CASTILLO, TRISTENYING Ot Z79.899 02/29/2016 PATRICK CASTILLO, COREY Ot Z87.891 03/05/2016 HANNAH CASTILLO, LOR Ot D64.9 03/05/2016 HANNAH CASTILLO, LOR Ot E10.22 03/05/2016 HANNAH CASTILLO, LOR Ot I12.9 03/05/2016 HANNAH CASTILLO, LOR Ot N18.3 03/05/2016 HANNAH CASTILLO, LOR Ot R80.9 03/05/2016 HANNAH CASTILLO, LOR Ot D64.9 03/05/2016 HANNAH CASTILLO, LOR Ot E10.22 03/05/2016 HANNAH CASTILLO, LOR Ot I12.9 03/05/2016 HANNAH CASTILLO, LOR Ot N18.3 03/05/2016 HANNAH CASTILLO, LOR Ot R80.9 03/06/2016 PATRICK CASTILLO, COREY Ot D63.1 ANEMIA IN CHRONIC KIDNEY DISEASE 03/06/2016 XUN COREY CASTILLO Ot E10.21 TYPE 1 DIABETES MELLITUS WITH DIABETIC N 03/06/2016 COREY NGUYEN MD Ot K58.9 IRRITABLE BOWEL SYNDROME WITHOUT DIARRHE 03/06/2016 COREY NGUYEN MD Ot N18.9 CHRONIC KIDNEY DISEASE, UNSPECIFIED 03/06/2016 COREY NGUYEN MD Ot Z79.4 [facility] (CURRENT) USE OF INSULIN 03/06/2016 COREY NGUYEN MD Ot 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 03/06/2016 COREY NGUYEN MD Ot Z87.891 PERSONAL HISTORY OF NICOTINE DEPENDENCE 03/22/2016 COREY NGUYEN MD, Ot D63.1 ANEMIA IN CHRONIC KIDNEY DISEASE 03/22/2016 COREY NGUYEN MD, Ot E10.21 TYPE 1 DIABETES MELLITUS WITH DIABETIC N 03/22/2016 COREY NGUYEN MD, Ot K58.9 IRRITABLE BOWEL SYNDROME WITHOUT DIARRHE 03/22/2016 COREY NGUYEN MD, Ot N18.9 CHRONIC KIDNEY DISEASE, UNSPECIFIED 03/22/2016 COREY NGUYEN MD, Ot Z79.4 [facility] (CURRENT) USE OF INSULIN 03/22/2016 COREY NGUYEN MD Ot Z79.899 OTHER [facility] (CURRENT) DRUG THERAPY 03/22/2016 COREY NGUYEN MD, Ot Z87.891 PERSONAL HISTORY OF NICOTINE DEPENDENCE 04/16/2016 COREY NGUYEN MD Ot D63.1 ANEMIA IN CHRONIC KIDNEY DISEASE 04/16/2016 COREY NGUYEN MD Ot E10.21 TYPE 1 DIABETES MELLITUS WITH DIABETIC N 04/16/2016 COREY NGUYEN MD Ot K58.9 IRRITABLE BOWEL SYNDROME WITHOUT DIARRHE 04/16/2016 COREY NGUYEN MD, Ot N18.9 CHRONIC KIDNEY DISEASE, UNSPECIFIED 04/16/2016 COREY NGUYEN MD Ot 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 04/16/2016 COREY NGUYEN MD Ot Z79.899 OTHER [facility] (CURRENT) DRUG THERAPY 04/16/2016 COREY NGUYEN MD Ot Z87.891 PERSONAL HISTORY OF NICOTINE DEPENDENCE 04/24/2016 COREY NGUYEN MD Ot D63.1 ANEMIA IN CHRONIC KIDNEY DISEASE 04/24/2016 COREY NGUYEN MD Ot E10.21 TYPE 1 DIABETES MELLITUS WITH DIABETIC N 04/24/2016 COREY NGUYEN MD Ot K58.9 IRRITABLE BOWEL SYNDROME WITHOUT DIARRHE 04/24/2016 COREY NGUYEN MD, Ot N18.9 CHRONIC KIDNEY DISEASE, UNSPECIFIED 04/24/2016 COREY NGUYEN MD Ot 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 04/24/2016 COREY NGUYEN MD Ot 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 04/24/2016 COREY NGUYEN MD, Ot Z87.891 PERSONAL HISTORY OF NICOTINE DEPENDENCE 04/24/2016 COREY NGUYEN MD Ot D63.1 ANEMIA IN CHRONIC KIDNEY DISEASE 04/24/2016 COREY NGUYEN MD, Ot E10.21 TYPE 1 DIABETES MELLITUS WITH DIABETIC N 04/24/2016 COREY NGUYEN MD Ot K58.9 IRRITABLE BOWEL SYNDROME WITHOUT DIARRHE 04/24/2016 COREY NGUYEN MD, Ot N18.9 CHRONIC KIDNEY DISEASE, UNSPECIFIED 04/24/2016 COREY NGUYEN MD Ot 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 04/24/2016 COREY NGUYEN MD Ot 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 04/24/2016 COREY NGUYEN MD, Ot Z87.891 PERSONAL HISTORY OF NICOTINE DEPENDENCE 04/30/2016 LOR YOUNG MD Ot D64.9 ANEMIA, UNSPECIFIED 04/30/2016 LOR YOUNG MD Ot 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 04/30/2016 LRO YOUNG MD Ot I12.9 HYPERTENSIVE CHRONIC KIDNEY DISEASE W ST 04/30/2016 LOR YOUNG MD Ot N18.3 CHRONIC KIDNEY DISEASE, STAGE 3 (MODERAT 04/30/2016 LOR YOUNG MD Ot R80.9 PROTEINURIA, UNSPECIFIED 05/01/2016 LOR YOUNG MD Ot D64.9 ANEMIA, UNSPECIFIED 05/01/2016 KEVIN YOUNG MDINE Ot 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 05/01/2016 KEVIN YOUNG MDINE Ot I12.9 HYPERTENSIVE CHRONIC KIDNEY DISEASE W ST 05/01/2016 LOR YOUNG MD Ot N18.3 CHRONIC KIDNEY DISEASE, STAGE 3 (MODERAT 05/01/2016 LOR YOUNG MD Ot R80.9 PROTEINURIA, UNSPECIFIED 05/04/2016 COREY NGUYEN MD Ot D63.1 ANEMIA IN CHRONIC KIDNEY DISEASE 05/04/2016 COREY NGUYEN MD Ot E10.21 TYPE 1 DIABETES MELLITUS WITH DIABETIC N 05/04/2016 COREY NGUYEN MD Ot K58.9 IRRITABLE BOWEL SYNDROME WITHOUT DIARRHE 05/04/2016 COREY NGUYEN MD, Ot N18.9 CHRONIC KIDNEY DISEASE, UNSPECIFIED 05/04/2016 COREY NGUYEN MD, Ot Z79.4 [facility] (CURRENT) USE OF INSULIN 05/04/2016 COREY NGUYEN MD, Ot Z79.899 OTHER [facility] (CURRENT) DRUG THERAPY 05/04/2016 COREY NGUYEN MD, Ot Z87.891 PERSONAL HISTORY OF NICOTINE DEPENDENCE 05/17/2016 LOR YOUNG MD Ot D64.9 ANEMIA, UNSPECIFIED 05/17/2016 LOR YOUNG MD Ot 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 05/17/2016 LOR YOUNG MD Ot I12.9 HYPERTENSIVE CHRONIC KIDNEY DISEASE W ST 05/17/2016 LOR YOUNG MD Ot N18.3 CHRONIC KIDNEY DISEASE, STAGE 3 (MODERAT 05/17/2016 LOR YOUNG MD Ot R80.9 PROTEINURIA, UNSPECIFIED 05/22/2016 KEVIN YOUNG MDINE Ot D64.9 ANEMIA, UNSPECIFIED 05/22/2016 LOR YOUNG MD Ot 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 05/22/2016 KEVIN YOUNG MDINE Ot I12.9 HYPERTENSIVE CHRONIC KIDNEY DISEASE W ST 05/22/2016 LOR YOUNG MD Ot N18.3 CHRONIC KIDNEY DISEASE, STAGE 3 (MODERAT 05/22/2016 LOR YOUNG MD Ot R80.9 PROTEINURIA, UNSPECIFIED 06/19/2016 COREY NGUYEN MD Ot D63.1 ANEMIA IN CHRONIC KIDNEY DISEASE 06/19/2016 COREY NGUYEN MD Ot E10.21 TYPE 1 DIABETES MELLITUS WITH DIABETIC N 06/19/2016 COREY NGUYEN MD Ot K58.9 IRRITABLE BOWEL SYNDROME WITHOUT DIARRHE 06/19/2016 COREY NGUYEN MD, Ot N18.9 CHRONIC KIDNEY DISEASE, UNSPECIFIED 06/19/2016 COREY NGUYEN MD Ot Z79.4 [facility] (CURRENT) USE OF INSULIN 06/19/2016 COREY NGUYEN MD Ot Z79.899 OTHER [facility] (CURRENT) DRUG THERAPY 06/19/2016 COREY NGUYEN MD Ot Z87.891 PERSONAL HISTORY OF NICOTINE DEPENDENCE 07/05/2016 COREY NGUYEN MD Ot D63.1 ANEMIA IN CHRONIC KIDNEY DISEASE 07/05/2016 COREY NGUYEN MD, Ot E10.21 TYPE 1 DIABETES MELLITUS WITH DIABETIC N 07/05/2016 COREY NGUYEN MD Ot K58.9 IRRITABLE BOWEL SYNDROME WITHOUT DIARRHE 07/05/2016 COERY NGUYEN MD, Ot N18.9 CHRONIC KIDNEY DISEASE, UNSPECIFIED 07/05/2016 COREY NGUYEN MD, Ot Z79.4 [facility] (CURRENT) USE OF INSULIN 07/05/2016 COREY NGUYEN MD Ot Z79.899 OTHER [facility] (CURRENT) DRUG THERAPY 07/05/2016 COREY NGUYEN MD, Ot Z87.891 PERSONAL HISTORY OF NICOTINE DEPENDENCE 08/06/2016 HANNAH CASTILLO, FADI S Ot D64.9 ANEMIA, UNSPECIFIED 08/06/2016 HANNAH CASTILLO, FADI S Ot 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 08/06/2016 HANNAH CASTILLO, FADI S Ot I95.89 OTHER HYPOTENSION 08/06/2016 HANNAH CASTILLO, FADI S Ot N18.3 CHRONIC KIDNEY DISEASE, STAGE 3 (MODERAT 08/06/2016 HANNAH CASTILLO, FADI S Ot R80.9 PROTEINURIA, UNSPECIFIED 08/06/2016 HANNAH CASTILLO, FADI S Ot D64.9 ANEMIA, UNSPECIFIED 08/06/2016 HANNAH CASTILLO, FADI S Ot 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 08/06/2016 HANNAH CASTILLO, FADI S Ot I95.89 OTHER HYPOTENSION 08/06/2016 HANNAH CASTILLO, FADI S Ot N18.3 CHRONIC KIDNEY DISEASE, STAGE 3 (MODERAT 08/06/2016 HANNAH CASTILLO, GONZALOMED S Ot R80.9 PROTEINURIA, UNSPECIFIED 08/16/2016 HANNAH CASTILLO, LOR Ot D64.9 ANEMIA, UNSPECIFIED 08/16/2016 HANNAH CASTILLO, LOR Ot E10.9 TYPE 1 DIABETES MELLITUS WITHOUT COMPLIC 08/16/2016 HANNAH CASTILLO, LOR Ot I95.89 OTHER HYPOTENSION 08/16/2016 HANNAH CASTILLO, LOR Ot N18.3 CHRONIC KIDNEY DISEASE, STAGE 3 (MODERAT 08/16/2016 HANNAH CASTILLO, LOR Ot R80.9 PROTEINURIA, UNSPECIFIED 08/16/2016 COREY NGUYEN MD, Ot D63.1 ANEMIA IN CHRONIC KIDNEY DISEASE 08/16/2016 COREY NGUYEN MD Ot E10.21 TYPE 1 DIABETES MELLITUS WITH DIABETIC N 08/16/2016 COREY NGUYEN MD Ot K58.9 IRRITABLE BOWEL SYNDROME WITHOUT DIARRHE 08/16/2016 COREY NGUYEN MD Ot N18.9 CHRONIC KIDNEY DISEASE, UNSPECIFIED 08/16/2016 COREY NGUYEN MD Ot 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 08/16/2016 COREY NGUYEN MD Ot 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 08/16/2016 COREY NGUYEN MD, Ot Z87.891 PERSONAL HISTORY OF NICOTINE DEPENDENCE 08/22/2016 COREY NGUYEN MD Ot D63.1 ANEMIA IN CHRONIC KIDNEY DISEASE 08/22/2016 COREY NGUYEN MD Ot E10.21 TYPE 1 DIABETES MELLITUS WITH DIABETIC N 08/22/2016 COREY NGUYEN MD Ot K58.9 IRRITABLE BOWEL SYNDROME WITHOUT DIARRHE 08/22/2016 COREY NGUYEN MD Ot N18.9 CHRONIC KIDNEY DISEASE, UNSPECIFIED 08/22/2016 COREY NGUYEN MD Ot Z79.4 [facility] (CURRENT) USE OF INSULIN 08/22/2016 COREY NGUYEN MD Ot Z79.899 OTHER [facility] (CURRENT) DRUG THERAPY 08/22/2016 COREY NGUYEN MD Ot Z87.891 PERSONAL HISTORY OF NICOTINE DEPENDENCE 08/22/2016 LOR YOUNG MD Ot D64.9 ANEMIA, UNSPECIFIED 08/22/2016 LOR YOUNG MD Ot E10.9 TYPE 1 DIABETES MELLITUS WITHOUT COMPLIC 08/22/2016 HANNAH CASTILLO, LOR Ot I95.89 OTHER HYPOTENSION 08/22/2016 LOR YOUNG MD Ot N18.3 CHRONIC KIDNEY DISEASE, STAGE 3 (MODERAT 08/22/2016 LOR YONUG MD Ot R80.9 PROTEINURIA, UNSPECIFIED 08/22/2016 LOR YOUNG MD Ot D64.9 ANEMIA, UNSPECIFIED 08/22/2016 LOR YOUNG MD Ot E10.9 TYPE 1 DIABETES MELLITUS WITHOUT COMPLIC 08/22/2016 HANNAH CASTILLO LOR Ot I95.89 OTHER HYPOTENSION 08/22/2016 LOR YOUNG MD Ot N18.3 CHRONIC KIDNEY DISEASE, STAGE 3 (MODERAT 08/22/2016 LOR YOUNG MD Ot R80.9 PROTEINURIA, UNSPECIFIED 08/22/2016 KEVIN YOUNG MDINE Ot D64.9 ANEMIA, UNSPECIFIED 08/22/2016 KEVIN YOUNG MDINE Ot E10.9 TYPE 1 DIABETES MELLITUS WITHOUT COMPLIC 08/22/2016 HANNAH CASTILLO LOR Ot I95.89 OTHER HYPOTENSION 08/22/2016 LOR YOUNG MD Ot N18.3 CHRONIC KIDNEY DISEASE, STAGE 3 (MODERAT 08/22/2016 LOR YOUNG MD Ot R80.9 PROTEINURIA, UNSPECIFIED 08/22/2016 HANNAH CASTILLO LOR Ot D64.9 ANEMIA, UNSPECIFIED 08/22/2016 KEVIN YOUNG MDINE Ot E10.9 TYPE 1 DIABETES MELLITUS WITHOUT COMPLIC 08/22/2016 KEIVN YOUNG MDINE Ot I95.89 OTHER HYPOTENSION 08/22/2016 KEVIN YOUNG MDINE Ot N18.3 CHRONIC KIDNEY DISEASE, STAGE 3 (MODERAT 08/22/2016 LOR YOUNG MD Ot R80.9 PROTEINURIA, UNSPECIFIED 08/22/2016 HANNAH CASTILLO LOR Ot D64.9 ANEMIA, UNSPECIFIED 08/22/2016 HANNHA CASTILLO, LOR Ot E10.9 TYPE 1 DIABETES MELLITUS WITHOUT COMPLIC 08/22/2016 LOR OYUNG MD Ot I95.89 OTHER HYPOTENSION 08/22/2016 HANNAH CASTILLO, LOR Ot N18.3 CHRONIC KIDNEY DISEASE, STAGE 3 (MODERAT 08/22/2016 KEVIN YOUNG MDINE Ot R80.9 PROTEINURIA, UNSPECIFIED 08/22/2016 LOR YOUNG MD Ot D64.9 ANEMIA, UNSPECIFIED 08/22/2016 HANNAH CASTILLO, LOR Ot E10.9 TYPE 1 DIABETES MELLITUS WITHOUT COMPLIC 08/22/2016 KEVIN YOUNG MDINE Ot I95.89 OTHER HYPOTENSION 08/22/2016 LOR YOUNG MD Ot N18.3 CHRONIC KIDNEY DISEASE, STAGE 3 (MODERAT 08/22/2016 LOR YOUNG MD Ot R80.9 PROTEINURIA, UNSPECIFIED 08/27/2016 COREY NGUYEN MD Ot D63.1 ANEMIA IN CHRONIC KIDNEY DISEASE 08/27/2016 COREY NGUYEN MD Ot E10.21 TYPE 1 DIABETES MELLITUS WITH DIABETIC N 08/27/2016 COREY NGUYEN MD Ot K58.9 IRRITABLE BOWEL SYNDROME WITHOUT DIARRHE 08/27/2016 COREY NGUYEN MD, Ot N18.9 CHRONIC KIDNEY DISEASE, UNSPECIFIED 08/27/2016 COREY NGUYEN MD Ot 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 08/27/2016 COREY NGUYEN MD, Ot Z79.899 OTHER [facility] (CURRENT) DRUG THERAPY 08/27/2016 COREY NGUYEN MD, Ot Z87.891 PERSONAL HISTORY OF NICOTINE DEPENDENCE 08/27/2016 FADI YOUNG MD S Ot D64.9 ANEMIA, UNSPECIFIED 08/27/2016 GONZALO YOUNG MDMED S Ot 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 08/27/2016 GONZALO YOUNG MDMED S Ot I95.89 OTHER HYPOTENSION 08/27/2016 HANNAH CASTILLO, GONZALOMED S Ot N18.3 CHRONIC KIDNEY DISEASE, STAGE 3 (MODERAT 08/27/2016 GONZALO YOUNG MDMED S Ot R80.9 PROTEINURIA, UNSPECIFIED 08/30/2016 HANNAH CASTILLO, GONZALOMED S Ot D64.9 ANEMIA, UNSPECIFIED 08/30/2016 HANNAH CASTILLO, FADI S Ot 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 08/30/2016 HANNAH CASTILLO, GONZALOMED S Ot I95.89 OTHER HYPOTENSION 08/30/2016 HANNAH CASTILLO, FADI S Ot N18.3 CHRONIC KIDNEY DISEASE, STAGE 3 (MODERAT 08/30/2016 HANNAH CASTILLO, GONZALOMED S Ot R80.9 PROTEINURIA, UNSPECIFIED 09/04/2016 COREY NGUYEN MD Ot D63.1 ANEMIA IN CHRONIC KIDNEY DISEASE 09/04/2016 COREY NGUYEN MD Ot E10.21 TYPE 1 DIABETES MELLITUS WITH DIABETIC N 09/04/2016 COREY NGUYEN MD Ot K58.9 IRRITABLE BOWEL SYNDROME WITHOUT DIARRHE 09/04/2016 COREY NGUYEN MD Ot N18.9 CHRONIC KIDNEY DISEASE, UNSPECIFIED 09/04/2016 COREY NGUYEN MD Ot 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 09/04/2016 COREY NGUYEN MD Ot 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 09/04/2016 COREY NGUYEN MD Ot Z87.891 PERSONAL HISTORY OF NICOTINE DEPENDENCE 09/05/2016 LOR YOUNG MD Ot D64.9 ANEMIA, UNSPECIFIED 09/05/2016 LOR YOUNG MD Ot E10.9 TYPE 1 DIABETES MELLITUS WITHOUT COMPLIC 09/05/2016 LOR YOUNG MD Ot I95.89 OTHER HYPOTENSION 09/05/2016 LOR YOUNG MD Ot N18.3 CHRONIC KIDNEY DISEASE, STAGE 3 (MODERAT 09/05/2016 LOR YOUNG MD Ot R80.9 PROTEINURIA, UNSPECIFIED 09/07/2016 LOR YOUNG MD Ot D64.9 ANEMIA, UNSPECIFIED 09/07/2016 LOR YOUNG MD Ot E10.9 TYPE 1 DIABETES MELLITUS WITHOUT COMPLIC 09/07/2016 KEVIN YOUNG MDINE Ot I95.89 OTHER HYPOTENSION 09/07/2016 LOR YOUNG MD Ot N18.3 CHRONIC KIDNEY DISEASE, STAGE 3 (MODERAT 09/07/2016 LOR YOUNG MD Ot R80.9 PROTEINURIA, UNSPECIFIED 10/09/2016 COREY NGUYEN MD Ot D63.1 ANEMIA IN CHRONIC KIDNEY DISEASE 10/09/2016 COREY NGUYEN MD Ot E10.21 TYPE 1 DIABETES MELLITUS WITH DIABETIC N 10/09/2016 COREY NGUYEN MD Ot K58.9 IRRITABLE BOWEL SYNDROME WITHOUT DIARRHE 10/09/2016 COREY NGUYEN MD, Ot N18.9 CHRONIC KIDNEY DISEASE, UNSPECIFIED 10/09/2016 COREY NGUYEN MD, Ot Z79.4 [facility] (CURRENT) USE OF INSULIN 10/09/2016 COREY NGUYEN MD, Ot 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 10/09/2016 COREY NGUYEN MD, Ot Z87.891 PERSONAL HISTORY OF NICOTINE DEPENDENCE 10/09/2016 FACUNDO CASTILLO FACC, ALI FACP CCDS Ot 780.2 SYNCOPE AND COLLAPSE 10/09/2016 FACUNDO CASTILLO FACC, ALI FACP CCDS Ot 786.59 CHEST PAIN NEC 10/09/2016 FACUNDO CASTILLO FACC, ALI FACP CCDS Ot 780.2 SYNCOPE AND COLLAPSE 10/09/2016 FACUNDO CSATILLO FACC, ALI FACP CCDS Ot 786.59 CHEST PAIN NEC 10/09/2016 FACUNDO CASTILLO FACC, ALI FACP CCDS Ot 729.81 SWELLING OF LIMB 10/09/2016 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 Ot 611.72 LUMP OR MASS IN BREAST 10/09/2016 LOR YOUNG MD Ot D64.9 ANEMIA, UNSPECIFIED 10/09/2016 LOR YOUNG MD Ot 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 10/09/2016 LOR YOUNG MD Ot I12.9 HYPERTENSIVE CHRONIC KIDNEY DISEASE W ST 10/09/2016 LOR YOUNG MD Ot N18.3 CHRONIC KIDNEY DISEASE, STAGE 3 (MODERAT 10/09/2016 LOR YOUNG MD Ot R80.9 PROTEINURIA, UNSPECIFIED 10/09/2016 LOR YOUNG MD Ot D64.9 ANEMIA, UNSPECIFIED 10/09/2016 LOR YOUNG MD Ot 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 10/09/2016 LOR YOUNG MD Ot I12.9 HYPERTENSIVE CHRONIC KIDNEY DISEASE W ST 10/09/2016 LOR YOUNG MD Ot N18.3 CHRONIC KIDNEY DISEASE, STAGE 3 (MODERAT 10/09/2016 LOR YOUNG MD Ot R80.9 PROTEINURIA, UNSPECIFIED 10/09/2016 FADI YOUNG MD S Ot D64.9 ANEMIA, UNSPECIFIED 10/09/2016 FADI YOUNG MD S Ot 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 10/09/2016 GONZALO YOUNG MDMED S Ot I95.89 OTHER HYPOTENSION 10/09/2016 GONZALO YOUNG MDMED S Ot N18.3 CHRONIC KIDNEY DISEASE, STAGE 3 (MODERAT 10/09/2016 FADI YOUNG MD S Ot R80.9 PROTEINURIA, UNSPECIFIED 10/09/2016 LOR YOUNG MD Ot D64.9 ANEMIA, UNSPECIFIED 10/09/2016 LOR YOUNG MD Ot E10.9 TYPE 1 DIABETES MELLITUS WITHOUT COMPLIC 10/09/2016 LOR YOUNG MD Ot I95.89 OTHER HYPOTENSION 10/09/2016 LOR YOUNG MD Ot N18.3 CHRONIC KIDNEY DISEASE, STAGE 3 (MODERAT 10/09/2016 LOR YOUNG MD Ot R80.9 PROTEINURIA, UNSPECIFIED 10/09/2016 COREY NGUYEN MD Ot D63.1 ANEMIA IN CHRONIC KIDNEY DISEASE 10/09/2016 COREY NGUYEN MD Ot E10.21 TYPE 1 DIABETES MELLITUS WITH DIABETIC N 10/09/2016 COREY NGUYEN MD Ot K58.9 IRRITABLE BOWEL SYNDROME WITHOUT DIARRHE 10/09/2016 COREY NGUYEN MD, Ot N18.9 CHRONIC KIDNEY DISEASE, UNSPECIFIED 10/09/2016 COREY NGUYEN MD, Ot 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 10/09/2016 COREY NGUYEN MD, Ot 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 10/09/2016 COREY NGUYEN MD, Ot Z87.891 PERSONAL HISTORY OF NICOTINE DEPENDENCE 10/16/2016 COREY NGUYEN MD Ot D63.1 ANEMIA IN CHRONIC KIDNEY DISEASE 10/16/2016 COREY NGUYEN MD Ot E10.21 TYPE 1 DIABETES MELLITUS WITH DIABETIC N 10/16/2016 COREY NGUYEN MD Ot K58.9 IRRITABLE BOWEL SYNDROME WITHOUT DIARRHE 10/16/2016 COREY GNUYEN MD, Ot N18.9 CHRONIC KIDNEY DISEASE, UNSPECIFIED 10/16/2016 COREY NGUYEN MD Ot 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 10/16/2016 COREY NGUYEN MD Ot 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 10/16/2016 COREY NGUYEN MD, Ot Z87.891 PERSONAL HISTORY OF NICOTINE DEPENDENCE 10/23/2016 COREY NGUYEN MD, Ot D63.1 ANEMIA IN CHRONIC KIDNEY DISEASE 10/23/2016 COREY NGUYEN MD Ot E10.21 TYPE 1 DIABETES MELLITUS WITH DIABETIC N 10/23/2016 COREY NGUYEN MD, Ot K58.9 IRRITABLE BOWEL SYNDROME WITHOUT DIARRHE 10/23/2016 COREY NGUYEN MD, Ot N18.9 CHRONIC KIDNEY DISEASE, UNSPECIFIED 10/23/2016 COREY NGUYEN MD Ot Z79.4 [facility] (CURRENT) USE OF INSULIN 10/23/2016 COREY NGUYEN MD Ot Z79.899 OTHER [facility] (CURRENT) DRUG THERAPY 10/23/2016 COREY NGUYEN MD, Ot Z87.891 PERSONAL HISTORY OF NICOTINE DEPENDENCE 10/31/2016 FACUNDO CASTILLO FACRandolph, ALI FACP CCDS Ot 780.2 SYNCOPE AND COLLAPSE 10/31/2016 FACUNDO CASTILLO FACC, ALI FACP CCDS Ot 786.59 CHEST PAIN NEC 10/31/2016 FACUNDO CASTILLO FACC, ALI FACP CCDS Ot 780.2 SYNCOPE AND COLLAPSE 10/31/2016 FACUNDO CASTILLO FACC, ALI FACP CCDS Ot 786.59 CHEST PAIN NEC 10/31/2016 FACUNDO CASTILLO FACC, ALI FACP CCDS Ot 729.81 SWELLING OF LIMB 10/31/2016 CHEN MCCOY APRN Ot 611.72 LUMP OR MASS IN BREAST 10/31/2016 HANNAH CASTILLO, LOR Ot D64.9 ANEMIA, UNSPECIFIED 10/31/2016 HANNAH CASTILLO, LOR Ot 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 10/31/2016 HANNAH CASTILLO, LOR Ot I12.9 HYPERTENSIVE CHRONIC KIDNEY DISEASE W ST 10/31/2016 HANNAH CASTILLO, LOR Ot N18.3 CHRONIC KIDNEY DISEASE, STAGE 3 (MODERAT 10/31/2016 HANNAH CASTILLO, LOR Ot R80.9 PROTEINURIA, UNSPECIFIED 10/31/2016 HANNAH CASTILLO, LOR Ot D64.9 ANEMIA, UNSPECIFIED 10/31/2016 HANNAH CASTILLO, LOR Ot 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 10/31/2016 HANNAH CASTILLO, LOR Ot I12.9 HYPERTENSIVE CHRONIC KIDNEY DISEASE W ST 10/31/2016 LOR YOUNG MD Ot N18.3 CHRONIC KIDNEY DISEASE, STAGE 3 (MODERAT 10/31/2016 LOR YOUNG MD Ot R80.9 PROTEINURIA, UNSPECIFIED 10/31/2016 FADI YOUNG MD S Ot D64.9 ANEMIA, UNSPECIFIED 10/31/2016 HANNAH CASTILLO, FADI S Ot 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 10/31/2016 HANNAH CASTILLO, FADI Hughes Ot I95.89 OTHER HYPOTENSION 10/31/2016 HANNAH CASTILLO, FADI S Ot N18.3 CHRONIC KIDNEY DISEASE, STAGE 3 (MODERAT 10/31/2016 FADI YOUNG MD Ot R80.9 PROTEINURIA, UNSPECIFIED 10/31/2016 HANNAH CASTILLO, LOR Ot D64.9 ANEMIA, UNSPECIFIED 10/31/2016 HANNAH CASTILLO, LOR Ot E10.9 TYPE 1 DIABETES MELLITUS WITHOUT COMPLIC 10/31/2016 HANNAH CASTILLO, LOR Ot I95.89 OTHER HYPOTENSION 10/31/2016 HANNAH CASTILLO, LOR Ot N18.3 CHRONIC KIDNEY DISEASE, STAGE 3 (MODERAT 10/31/2016 LOR YOUNG MD Ot R80.9 PROTEINURIA, UNSPECIFIED 10/31/2016 PATRICK CASTILLO, COREY Ot D63.1 ANEMIA IN CHRONIC KIDNEY DISEASE 10/31/2016 COREY NGUYEN MD Ot E10.21 TYPE 1 DIABETES MELLITUS WITH DIABETIC N 10/31/2016 COREY NGUYEN MD Ot K58.9 IRRITABLE BOWEL SYNDROME WITHOUT DIARRHE 10/31/2016 COREY NGUYEN MD, Ot N18.9 CHRONIC KIDNEY DISEASE, UNSPECIFIED 10/31/2016 COREY NGUYEN MD, Ot 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 10/31/2016 COREY NGUYEN MD Ot 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 10/31/2016 COREY NGUYEN MD, Ot Z87.891 PERSONAL HISTORY OF NICOTINE DEPENDENCE 11/22/2016 LOR YOUNG MD Ot D64.9 ANEMIA, UNSPECIFIED 11/22/2016 LRO YOUNG MD Ot 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 11/22/2016 KEVIN YOUNG MDINE Ot I95.89 OTHER HYPOTENSION 11/22/2016 LOR YOUNG MD Ot N18.3 CHRONIC KIDNEY DISEASE, STAGE 3 (MODERAT 11/22/2016 LOR YOUNG MD Ot R80.9 PROTEINURIA, UNSPECIFIED 11/27/2016 LOR YOUNG MD Ot D64.9 ANEMIA, UNSPECIFIED 11/27/2016 KEVIN YOUNG MDINE Ot 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 11/27/2016 HANNAH CASTILLO LOR Ot I95.89 OTHER HYPOTENSION 11/27/2016 LOR YOUNG MD Ot N18.3 CHRONIC KIDNEY DISEASE, STAGE 3 (MODERAT 11/27/2016 LOR YOUNG MD Ot R80.9 PROTEINURIA, UNSPECIFIED 12/02/2016 COREY NGUYEN MD Ot D63.1 ANEMIA IN CHRONIC KIDNEY DISEASE 12/02/2016 COREY NGUYEN MD Ot E10.21 TYPE 1 DIABETES MELLITUS WITH DIABETIC N 12/02/2016 COREY NGUYEN MD Ot K58.9 IRRITABLE BOWEL SYNDROME WITHOUT DIARRHE 12/02/2016 COREY NGUYEN MD Ot N18.9 CHRONIC KIDNEY DISEASE, UNSPECIFIED 12/02/2016 COREY NGUYEN MD, Ot 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 12/02/2016 COREY NGUYEN MD Ot 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 12/02/2016 COREY NGUYEN MD, Ot Z87.891 PERSONAL HISTORY OF NICOTINE DEPENDENCE 12/06/2016 COREY NGUYEN MD, Ot D63.1 ANEMIA IN CHRONIC KIDNEY DISEASE 12/06/2016 COREY NGUYEN MD Ot E10.21 TYPE 1 DIABETES MELLITUS WITH DIABETIC N 12/06/2016 COREY NGUYEN MD, Ot K58.9 IRRITABLE BOWEL SYNDROME WITHOUT DIARRHE 12/06/2016 COREY NGUYEN MD, Ot N18.9 CHRONIC KIDNEY DISEASE, UNSPECIFIED 12/06/2016 COREY NGUYEN MD Ot Z79.4 [facility] (CURRENT) USE OF INSULIN 12/06/2016 COREY NGUYEN MD Ot 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 12/06/2016 COREY NGUYEN MD Ot Z87.891 PERSONAL HISTORY OF NICOTINE DEPENDENCE 12/08/2016 COREY NGUYEN MD Ot D63.1 ANEMIA IN CHRONIC KIDNEY DISEASE 12/08/2016 COREY NGUYEN MD Ot E10.21 TYPE 1 DIABETES MELLITUS WITH DIABETIC N 12/08/2016 COREY NGUYEN MD Ot K58.9 IRRITABLE BOWEL SYNDROME WITHOUT DIARRHE 12/08/2016 COREY NGUYEN MD Ot N18.9 CHRONIC KIDNEY DISEASE, UNSPECIFIED 12/08/2016 COREY NGUYEN MD Ot Z79.4 [facility] (CURRENT) USE OF INSULIN 12/08/2016 COREY NGUYEN MD Ot Z79.899 OTHER [facility] (CURRENT) DRUG THERAPY 12/08/2016 COREY NGUYEN MD Ot Z87.891 PERSONAL HISTORY OF NICOTINE DEPENDENCE 01/17/2017 FACUNDO CASTILLO FACC, MELCHOR ALAN CCDS Ot R06.02 SHORTNESS OF BREATH 01/17/2017 COREY NGUYEN MD Ot D63.1 ANEMIA IN CHRONIC KIDNEY DISEASE 01/17/2017 COREY NGUYEN MD Ot E10.21 TYPE 1 DIABETES MELLITUS WITH DIABETIC N 01/17/2017 COREY NGUYEN MD Ot K58.9 IRRITABLE BOWEL SYNDROME WITHOUT DIARRHE 01/17/2017 COREY NGUYEN MD Ot N18.9 CHRONIC KIDNEY DISEASE, UNSPECIFIED 01/17/2017 COREY NGUYEN MD Ot Z79.4 [facility] (CURRENT) USE OF INSULIN 01/17/2017 COREY NGUYEN MD Ot 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 01/17/2017 COREY NGUYEN MD Ot Z87.891 PERSONAL HISTORY OF NICOTINE DEPENDENCE 01/20/2017 FACUNDO CASTILLO FACC, ALI FACP CCDS Ot R06.02 SHORTNESS OF BREATH 01/23/2017 COREY NGUYEN MD Ot D63.1 ANEMIA IN CHRONIC KIDNEY DISEASE 01/23/2017 COREY NGUYEN MD Ot E10.21 TYPE 1 DIABETES MELLITUS WITH DIABETIC N 01/23/2017 COREY NGUYEN MD Ot K58.9 IRRITABLE BOWEL SYNDROME WITHOUT DIARRHE 01/23/2017 COREY NGUYEN MD Ot N18.9 CHRONIC KIDNEY DISEASE, UNSPECIFIED 01/23/2017 COREY NGUYEN MD Ot 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 01/23/2017 COREY NGUYEN MD Ot Z79.899 OTHER [facility] (CURRENT) DRUG THERAPY 01/23/2017 COREY NGUYEN MD Ot Z87.891 PERSONAL HISTORY OF NICOTINE DEPENDENCE 01/23/2017 FACUNDO CASTILLO FACC, ALI FACP CCDS Ot R06.02 SHORTNESS OF BREATH 02/05/2017 FACUNDO CASTILLO FACC, ALI FACP CCDS Ot R06.02 SHORTNESS OF BREATH 02/12/2017 FACUNDO CASTILLO FACC, ALI FACP CCDS Ot R06.02 SHORTNESS OF BREATH 02/12/2017 FACUNDO CASTILLO FACC, ALI FACP CCDS Ot R06.02 SHORTNESS OF BREATH 02/19/2017 FACUNDO CASTILLO FACC, ALI FACP CCDS Ot R06.02 SHORTNESS OF BREATH 02/27/2017 HANNAH CASTILLO, LOR Ot N18.3 CHRONIC KIDNEY DISEASE, STAGE 3 (MODERAT 02/27/2017 HANNAH CASTILLO, LOR Ot N18.3 CHRONIC KIDNEY DISEASE, STAGE 3 (MODERAT 02/27/2017 HANNAH CASTILLO, LOR Ot N18.3 CHRONIC KIDNEY DISEASE, STAGE 3 (MODERAT 02/27/2017 HANNAH CASTILLO, LOR Ot N18.3 CHRONIC KIDNEY DISEASE, STAGE 3 (MODERAT 03/05/2017 COREY NGUYEN MD Ot D63.1 ANEMIA IN CHRONIC KIDNEY DISEASE 03/05/2017 COREY NGUYEN MD Ot E10.21 TYPE 1 DIABETES MELLITUS WITH DIABETIC N 03/05/2017 COREY NGUYEN MD Ot K58.9 IRRITABLE BOWEL SYNDROME WITHOUT DIARRHE 03/05/2017 COREY NGUYEN MD, Ot N18.9 CHRONIC KIDNEY DISEASE, UNSPECIFIED 03/05/2017 COREY NGUYEN MD Ot 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 03/05/2017 COREY NGUYEN MD Ot 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 03/05/2017 COREY NGUYEN MD, Ot Z87.891 PERSONAL HISTORY OF NICOTINE DEPENDENCE 03/21/2017 COREY NGUYEN MD, Ot D63.1 ANEMIA IN CHRONIC KIDNEY DISEASE 03/21/2017 COREY NGUYEN MD Ot E10.21 TYPE 1 DIABETES MELLITUS WITH DIABETIC N 03/21/2017 COREY NGUYEN MD, Ot K58.9 IRRITABLE BOWEL SYNDROME WITHOUT DIARRHE 03/21/2017 COREY NGUYEN MD, Ot N18.9 CHRONIC KIDNEY DISEASE, UNSPECIFIED 03/21/2017 COREY NGUYEN MD Ot Z79.4 [facility] (CURRENT) USE OF INSULIN 03/21/2017 COREY NGUYEN MD Ot 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 03/21/2017 COREY NGUYEN MD, Ot Z87.891 PERSONAL HISTORY OF NICOTINE DEPENDENCE 04/08/2017 LOR YOUNG MD Ot D64.9 ANEMIA, UNSPECIFIED 04/08/2017 LOR YOUNG MD Ot E10.9 TYPE 1 DIABETES MELLITUS WITHOUT COMPLIC 04/08/2017 KEVIN YOUNG MDINE Ot I95.89 OTHER HYPOTENSION 04/08/2017 LOR YOUNG MD Ot N18.3 CHRONIC KIDNEY DISEASE, STAGE 3 (MODERAT 04/08/2017 KEVIN YOUNG MDINE Ot R80.9 PROTEINURIA, UNSPECIFIED 04/17/2017 COREY NGUYEN MD Ot D63.1 ANEMIA IN CHRONIC KIDNEY DISEASE 04/17/2017 COREY NGUYEN MD Ot E10.21 TYPE 1 DIABETES MELLITUS WITH DIABETIC N 04/17/2017 COREY NGUYEN MD Ot K58.9 IRRITABLE BOWEL SYNDROME WITHOUT DIARRHE 04/17/2017 COREY NGUYEN MD, Ot N18.3 CHRONIC KIDNEY DISEASE, STAGE 3 (MODERAT 04/17/2017 COREY NGUYEN MD Ot Z79.4 [facility] (CURRENT) USE OF INSULIN 04/17/2017 COREY NGUYEN MD, Ot 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 04/17/2017 COREY NGUYEN MD, Ot Z87.891 PERSONAL HISTORY OF NICOTINE DEPENDENCE 04/22/2017 LOR YOUNG MD Ot D64.9 ANEMIA, UNSPECIFIED 04/22/2017 LOR YOUNG MD Ot E10.9 TYPE 1 DIABETES MELLITUS WITHOUT COMPLIC 04/22/2017 KEVIN YOUNG MDINE Ot I95.89 OTHER HYPOTENSION 04/22/2017 LOR YOUNG MD Ot N18.3 CHRONIC KIDNEY DISEASE, STAGE 3 (MODERAT 04/22/2017 LOR YOUNG MD Ot R80.9 PROTEINURIA, UNSPECIFIED 04/29/2017 COREY NGUYEN MD Ot D63.1 ANEMIA IN CHRONIC KIDNEY DISEASE 04/29/2017 COREY NGUYEN MD Ot E10.21 TYPE 1 DIABETES MELLITUS WITH DIABETIC N 04/29/2017 COREY NGUYEN MD, Ot K58.9 IRRITABLE BOWEL SYNDROME WITHOUT DIARRHE 04/29/2017 COREY NGYUEN MD, Ot N18.3 CHRONIC KIDNEY DISEASE, STAGE 3 (MODERAT 04/29/2017 COREY NGUYEN MD, Ot Z79.4 [facility] (CURRENT) USE OF INSULIN 04/29/2017 COREY NGUYEN MD, Ot 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 04/29/2017 COREY NGUYEN MD, Ot Z87.891 PERSONAL HISTORY OF NICOTINE DEPENDENCE 05/22/2017 ALAYNA ZUÑIGA OD Ot E11.9 TYPE 2 DIABETES MELLITUS WITHOUT COMPLIC 05/22/2017 ALAYNA ZUÑIGA OD Ot E11.9 TYPE 2 DIABETES MELLITUS WITHOUT COMPLIC 05/22/2017 ALAYNA ZUÑIGA OD Ot E11.9 TYPE 2 DIABETES MELLITUS WITHOUT COMPLIC 05/22/2017 KANNARR, ALAYNA R OD Ot E11.9 TYPE 2 DIABETES MELLITUS WITHOUT COMPLIC 05/22/2017 ALAYNA ZUÑIGA R OD Ot E11.9 TYPE 2 DIABETES MELLITUS WITHOUT COMPLIC 06/13/2017 ALAYNA ZUÑIGA R OD Ot E11.9 TYPE 2 DIABETES MELLITUS WITHOUT COMPLIC 2017 COREY NGUYEN MD, Ot D63.1 ANEMIA IN CHRONIC KIDNEY DISEASE 2017 COREY NGUYEN MD, Ot E10.21 TYPE 1 DIABETES MELLITUS WITH DIABETIC N 2017 COREY NGUYEN MD, Ot K58.9 IRRITABLE BOWEL SYNDROME WITHOUT DIARRHE 2017 COREY NGUYEN MD, Ot N18.3 CHRONIC KIDNEY DISEASE, STAGE 3 (MODERAT 2017 COREY NGUYEN MD, Ot Z79.4 [facility] (CURRENT) USE OF INSULIN 2017 COREY NGUYEN MD, Ot Z79.899 OTHER [facility] (CURRENT) DRUG THERAPY 2017 COREY NGUYEN MD, Ot Z87.891 PERSONAL HISTORY OF NICOTINE DEPENDENCE 2017 LOR YOUNG MD Ot D64.9 ANEMIA, UNSPECIFIED 2017 OLR YOUNG MD Ot 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 2017 LOR YOUNG MD Ot I95.1 ORTHOSTATIC HYPOTENSION 2017 HANNAH CASTILLO, LOR Ot I95.89 OTHER HYPOTENSION 2017 HANNAH CASTILLO, LOR Ot R80.9 PROTEINURIA, UNSPECIFIED 06/21/2017 ALAYNA ZUÑIGA R OD Ot E11.9 TYPE 2 DIABETES MELLITUS WITHOUT COMPLIC 06/21/2017 ALAYNA ZUÑIGA R OD Ot E11.9 TYPE 2 DIABETES MELLITUS WITHOUT COMPLIC 07/04/2017 COREY NGUYEN MD, Ot D63.1 ANEMIA IN CHRONIC KIDNEY DISEASE 07/04/2017 COREY NGUYEN MD, Ot E10.21 TYPE 1 DIABETES MELLITUS WITH DIABETIC N 07/04/2017 COREY NGUYEN MD, Ot K58.9 IRRITABLE BOWEL SYNDROME WITHOUT DIARRHE 07/04/2017 COREY NGUYEN MD, Ot N18.3 CHRONIC KIDNEY DISEASE, STAGE 3 (MODERAT 07/04/2017 COREY NGUYEN MD, Ot 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 07/04/2017 COREY NGUYEN MD Ot 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 07/04/2017 COREY NGUYEN MD Ot Z87.891 PERSONAL HISTORY OF NICOTINE DEPENDENCE 07/24/2017 LOR YOUNG MD Ot D64.9 ANEMIA, UNSPECIFIED 07/24/2017 LOR YOUNG MD Ot 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 07/24/2017 HANNAH CASTILLO LOR Ot I95.1 ORTHOSTATIC HYPOTENSION 07/24/2017 HANNAH CASTILLO, LOR Ot I95.89 OTHER HYPOTENSION 07/24/2017 LOR YOUNG MD Ot R80.9 PROTEINURIA, UNSPECIFIED 08/05/2017 HANNAH CASTILLO LOR Ot D64.9 ANEMIA, UNSPECIFIED 08/05/2017 LOR YOUNG MD Ot 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 08/05/2017 HANNAH CASTILLO LOR Ot I95.1 ORTHOSTATIC HYPOTENSION 08/05/2017 HANNAH CASTILLO LOR Ot I95.89 OTHER HYPOTENSION 08/05/2017 LOR YOUNG MD Ot R80.9 PROTEINURIA, UNSPECIFIED 08/05/2017 HANNAH CASTILLO, LOR Ot D64.9 ANEMIA, UNSPECIFIED 08/05/2017 HANNAH CASTILLO, LOR Ot 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 08/05/2017 HANNAH CASTILLO LOR Ot I95.1 ORTHOSTATIC HYPOTENSION 08/05/2017 HANNAH CASTILLO, LOR Ot I95.89 OTHER HYPOTENSION 08/05/2017 KEVIN YOUNG MDINE Ot R80.9 PROTEINURIA, UNSPECIFIED 08/16/2017 COREY NGUYEN MD Ot D63.1 ANEMIA IN CHRONIC KIDNEY DISEASE 08/16/2017 COREY NGUYEN MD Ot E10.21 TYPE 1 DIABETES MELLITUS WITH DIABETIC N 08/16/2017 COREY NGUYEN MD Ot K58.9 IRRITABLE BOWEL SYNDROME WITHOUT DIARRHE 08/16/2017 COREY NGUYEN MD Ot N18.3 CHRONIC KIDNEY DISEASE, STAGE 3 (MODERAT 08/16/2017 COREY NGUYEN MD Ot 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 08/16/2017 COREY NGUYEN MD Ot Z79.899 OTHER [facility] (CURRENT) DRUG THERAPY 08/16/2017 COREY NGUYEN MD Ot Z87.891 PERSONAL HISTORY OF NICOTINE DEPENDENCE 08/23/2017 COREY NGUYEN MD Ot D63.1 ANEMIA IN CHRONIC KIDNEY DISEASE 08/23/2017 COREY NGUYEN MD Ot E10.21 TYPE 1 DIABETES MELLITUS WITH DIABETIC N 08/23/2017 COREY NGUYEN MD Ot K58.9 IRRITABLE BOWEL SYNDROME WITHOUT DIARRHE 08/23/2017 COREY NGUYEN MD Ot N18.3 CHRONIC KIDNEY DISEASE, STAGE 3 (MODERAT 08/23/2017 COREY NGUYEN MD Ot 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 08/23/2017 COREY NGUYEN MD Ot Z79.899 OTHER [facility] (CURRENT) DRUG THERAPY 08/23/2017 COREY NGUYEN MD Ot Z87.891 PERSONAL HISTORY OF NICOTINE DEPENDENCE 08/24/2017 COREY NGUYEN MD Ot D63.1 ANEMIA IN CHRONIC KIDNEY DISEASE 08/24/2017 COREY NGUYEN MD Ot E10.21 TYPE 1 DIABETES MELLITUS WITH DIABETIC N 08/24/2017 COREY NGUYEN MD Ot K58.9 IRRITABLE BOWEL SYNDROME WITHOUT DIARRHE 08/24/2017 COREY NGUYEN MD Ot N18.3 CHRONIC KIDNEY DISEASE, STAGE 3 (MODERAT 08/24/2017 COREY NGUYEN MD Ot 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 08/24/2017 COREY NGUYEN MD Ot 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 08/24/2017 COREY NGUYEN MD Ot Z87.891 PERSONAL HISTORY OF NICOTINE DEPENDENCE 08/29/2017 COREY NGUYEN MD Ot D63.1 ANEMIA IN CHRONIC KIDNEY DISEASE 08/29/2017 COREY NGUYEN MD Ot E10.21 TYPE 1 DIABETES MELLITUS WITH DIABETIC N 08/29/2017 COREY NGUYEN MD Ot K58.9 IRRITABLE BOWEL SYNDROME WITHOUT DIARRHE 08/29/2017 COREY NGUYEN MD Ot N18.3 CHRONIC KIDNEY DISEASE, STAGE 3 (MODERAT 08/29/2017 COREY NGUYEN MD, Ot Z79.4 [facility] (CURRENT) USE OF INSULIN 08/29/2017 COREY NGUYEN MD, Ot 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 08/29/2017 COREY NGUYEN MD, Ot Z87.891 PERSONAL HISTORY OF NICOTINE DEPENDENCE 08/30/2017 COREY NGUYEN MD Ot D63.1 ANEMIA IN CHRONIC KIDNEY DISEASE 08/30/2017 COREY NGUYEN MD Ot E10.21 TYPE 1 DIABETES MELLITUS WITH DIABETIC N 08/30/2017 COREY NGUYEN MD, Ot K58.9 IRRITABLE BOWEL SYNDROME WITHOUT DIARRHE 08/30/2017 COREY NGUYEN MD, Ot N18.9 CHRONIC KIDNEY DISEASE, UNSPECIFIED 08/30/2017 COREY NGUYEN MD, Ot 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 08/30/2017 COREY NGUYEN MD, Ot 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 08/30/2017 COREY NGUYEN MD, Ot Z87.891 PERSONAL HISTORY OF NICOTINE DEPENDENCE 08/30/2017 FACUNDO CASTILLO FACC, ALI FACP CCDS Ot 780.2 SYNCOPE AND COLLAPSE 08/30/2017 FACUNDO CASTILLO FACC, ALI FACP CCDS Ot 786.59 CHEST PAIN NEC 08/30/2017 FACUNDO CASTILLO FACC, ALI FACP CCDS Ot 780.2 SYNCOPE AND COLLAPSE 08/30/2017 FACUNDO CASTILLO FACC, ALI FACP CCDS Ot 786.59 CHEST PAIN NEC 08/30/2017 FACUNDO CASTILLO FACC, ALI FACP CCDS Ot 729.81 SWELLING OF LIMB 08/30/2017 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 Ot 611.72 LUMP OR MASS IN BREAST 08/30/2017 LOR YOUNG MD Ot D64.9 ANEMIA, UNSPECIFIED 08/30/2017 LOR YOUNG MD Ot 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 08/30/2017 LOR YOUNG MD Ot I12.9 HYPERTENSIVE CHRONIC KIDNEY DISEASE W ST 08/30/2017 LOR YOUNG MD Ot N18.3 CHRONIC KIDNEY DISEASE, STAGE 3 (MODERAT 08/30/2017 ABOUL-MAGD MD, LOR Ot R80.9 PROTEINURIA, UNSPECIFIED 08/30/2017 HANNAH CASTILLO, LOR Ot D64.9 ANEMIA, UNSPECIFIED 08/30/2017 HANNAH CASTILLO, LOR Ot 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 08/30/2017 KEVIN YOUNG MDINE Ot I12.9 HYPERTENSIVE CHRONIC KIDNEY DISEASE W ST 08/30/2017 LOR YOUNG MD Ot N18.3 CHRONIC KIDNEY DISEASE, STAGE 3 (MODERAT 08/30/2017 KEVIN YOUNG MDINE Ot R80.9 PROTEINURIA, UNSPECIFIED 08/30/2017 HANNAH CASTILLO, AHMED S Ot D64.9 ANEMIA, UNSPECIFIED 08/30/2017 HANNAH CASTILLO, AHMED S Ot 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 08/30/2017 HANNAH CASTILLO, AHMED S Ot I95.89 OTHER HYPOTENSION 08/30/2017 HANNAH CASTILLO, AHMED S Ot N18.3 CHRONIC KIDNEY DISEASE, STAGE 3 (MODERAT 08/30/2017 HANNAH CASTILLO, AHMED S Ot R80.9 PROTEINURIA, UNSPECIFIED 08/30/2017 LOR YOUNG MD Ot D64.9 ANEMIA, UNSPECIFIED 08/30/2017 HANNAH CASTILLO, LOR Ot E10.9 TYPE 1 DIABETES MELLITUS WITHOUT COMPLIC 08/30/2017 HANNAH CASTILLO, LOR Ot I95.89 OTHER HYPOTENSION 08/30/2017 LOR YOUNG MD Ot N18.3 CHRONIC KIDNEY DISEASE, STAGE 3 (MODERAT 08/30/2017 KEVIN YOUNG MDINE Ot R80.9 PROTEINURIA, UNSPECIFIED 08/30/2017 LOR YOUNG MD Ot D64.9 ANEMIA, UNSPECIFIED 08/30/2017 HANNAH CASTILLO, LOR Ot 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 08/30/2017 HANNAH CASTILLO LOR Ot I95.89 OTHER HYPOTENSION 08/30/2017 LOR YOUNG MD Ot N18.3 CHRONIC KIDNEY DISEASE, STAGE 3 (MODERAT 08/30/2017 ABOUL-MAGD MD, LOR Ot R80.9 PROTEINURIA, UNSPECIFIED 08/30/2017 FACUNDO CASTILLO FAC, ALI DIEGOP CCDS Ot R06.02 SHORTNESS OF BREATH 08/30/2017 FACUNDO CASTILLO FACC, ALI FACP CCDS Ot R06.02 SHORTNESS OF BREATH 08/30/2017 LOR YOUNG MD Ot D64.9 ANEMIA, UNSPECIFIED 08/30/2017 LOR YOUNG MD Ot E10.9 TYPE 1 DIABETES MELLITUS WITHOUT COMPLIC 08/30/2017 LOR YOUNG MD Ot I95.89 OTHER HYPOTENSION 08/30/2017 LOR YOUNG MD Ot N18.3 CHRONIC KIDNEY DISEASE, STAGE 3 (MODERAT 08/30/2017 LOR YOUNG MD Ot R80.9 PROTEINURIA, UNSPECIFIED 08/30/2017 ALAYNA ZUÑIGA OD Ot E11.9 TYPE 2 DIABETES MELLITUS WITHOUT COMPLIC 08/30/2017 LOR YOUNG MD Ot D64.9 ANEMIA, UNSPECIFIED 08/30/2017 LOR YOUNG MD Ot 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 08/30/2017 LOR YOUNG MD Ot I95.1 ORTHOSTATIC HYPOTENSION 08/30/2017 LOR YOUNG MD Ot I95.89 OTHER HYPOTENSION 08/30/2017 LOR YOUNG MD Ot R80.9 PROTEINURIA, UNSPECIFIED 08/30/2017 COREY NGUYEN MD Ot D63.1 ANEMIA IN CHRONIC KIDNEY DISEASE 08/30/2017 COREY NGUYEN MD Ot E10.21 TYPE 1 DIABETES MELLITUS WITH DIABETIC N 08/30/2017 COREY NGUYEN MD Ot K58.9 IRRITABLE BOWEL SYNDROME WITHOUT DIARRHE 08/30/2017 COREY NGUYEN MD Ot N18.3 CHRONIC KIDNEY DISEASE, STAGE 3 (MODERAT 08/30/2017 COREY NGUYEN MD, Ot 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 08/30/2017 COREY NGUYEN MD, Ot 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 08/30/2017 COREY NGUYEN MD, Ot Z87.891 PERSONAL HISTORY OF NICOTINE DEPENDENCE 08/30/2017 LOR YOUNG MD Ot D64.9 ANEMIA, UNSPECIFIED 08/30/2017 KEVIN YOUNG MDINE Ot E10.9 TYPE 1 DIABETES MELLITUS WITHOUT COMPLIC 08/30/2017 KEVIN YOUNG MDINE Ot I95.1 ORTHOSTATIC HYPOTENSION 08/30/2017 LOR YOUNG MD Ot N18.3 CHRONIC KIDNEY DISEASE, STAGE 3 (MODERAT 08/30/2017 LOR YOUNG MD Ot R80.9 PROTEINURIA, UNSPECIFIED 09/02/2017 COREY NGUYEN MD Ot D63.1 ANEMIA IN CHRONIC KIDNEY DISEASE 09/02/2017 COREY NGUYEN MD Ot E10.21 TYPE 1 DIABETES MELLITUS WITH DIABETIC N 09/02/2017 COREY NGUYEN MD Ot K58.9 IRRITABLE BOWEL SYNDROME WITHOUT DIARRHE 09/02/2017 COREY NGUYEN MD Ot N18.3 CHRONIC KIDNEY DISEASE, STAGE 3 (MODERAT 09/02/2017 COREY NGUYEN MD Ot Z79.4 [facility] (CURRENT) USE OF INSULIN 09/02/2017 COREY NGUYEN MD Ot 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 09/02/2017 COREY NGUYEN MD Ot Z87.891 PERSONAL HISTORY OF NICOTINE DEPENDENCE 09/06/2017 COREY NGUYEN MD Ot D63.1 ANEMIA IN CHRONIC KIDNEY DISEASE 09/06/2017 COREY NGUYEN MD Ot E10.21 TYPE 1 DIABETES MELLITUS WITH DIABETIC N 09/06/2017 COREY NGUYEN MD Ot K58.9 IRRITABLE BOWEL SYNDROME WITHOUT DIARRHE 09/06/2017 COREY NGUYEN MD Ot N18.9 CHRONIC KIDNEY DISEASE, UNSPECIFIED 09/06/2017 COREY NGUYEN MD Ot 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 09/06/2017 COREY NGUYEN MD Ot Z79.899 OTHER [facility] (CURRENT) DRUG THERAPY 09/06/2017 COREY NGUYEN MD Ot Z87.891 PERSONAL HISTORY OF NICOTINE DEPENDENCE 09/18/2017 LOR YOUNG MD Ot D64.9 ANEMIA, UNSPECIFIED 09/18/2017 LOR YOUNG MD Ot E10.9 TYPE 1 DIABETES MELLITUS WITHOUT COMPLIC 09/18/2017 KEVIN YOUNG MDINE Ot I95.1 ORTHOSTATIC HYPOTENSION 09/18/2017 HANNAH CASTILLO, LOR Ot N18.3 CHRONIC KIDNEY DISEASE, STAGE 3 (MODERAT 09/18/2017 HANNAH CASTILLO, LOR Ot R80.9 PROTEINURIA, UNSPECIFIED 10/18/2017 COREY NGUYEN MD Ot D63.1 ANEMIA IN CHRONIC KIDNEY DISEASE 10/18/2017 COREY NGUYEN MD Ot E10.21 TYPE 1 DIABETES MELLITUS WITH DIABETIC N 10/18/2017 COREY NGUYEN MD Ot K58.9 IRRITABLE BOWEL SYNDROME WITHOUT DIARRHE 10/18/2017 COREY NGUYEN MD Ot N18.3 CHRONIC KIDNEY DISEASE, STAGE 3 (MODERAT 10/18/2017 COREY NGUYEN MD Ot 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 10/18/2017 COREY NGUYEN MD Ot 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 10/18/2017 COREY NGUYEN MD Ot Z87.891 PERSONAL HISTORY OF NICOTINE DEPENDENCE 10/25/2017 COREY NGUYEN MD Ot D63.1 ANEMIA IN CHRONIC KIDNEY DISEASE 10/25/2017 CORYE NGUYEN MD Ot E10.21 TYPE 1 DIABETES MELLITUS WITH DIABETIC N 10/25/2017 COREY NGUYEN MD Ot K58.9 IRRITABLE BOWEL SYNDROME WITHOUT DIARRHE 10/25/2017 COREY NGUYEN MD Ot N18.3 CHRONIC KIDNEY DISEASE, STAGE 3 (MODERAT 10/25/2017 COREY NGUYEN MD Ot 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 10/25/2017 COREY NGUYEN MD Ot 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 10/25/2017 CORYE NGUYEN MD Ot Z87.891 PERSONAL HISTORY OF NICOTINE DEPENDENCE 10/30/2017 COREY NGUYEN MD Ot D63.1 ANEMIA IN CHRONIC KIDNEY DISEASE 10/30/2017 COREY NGUYEN MD Ot E10.21 TYPE 1 DIABETES MELLITUS WITH DIABETIC N 10/30/2017 COREY NGUYEN MD Ot K58.9 IRRITABLE BOWEL SYNDROME WITHOUT DIARRHE 10/30/2017 COREY NGUYEN MD Ot N18.3 CHRONIC KIDNEY DISEASE, STAGE 3 (MODERAT 10/30/2017 COREY NGUYEN MD Ot Z79.4 [facility] (CURRENT) USE OF INSULIN 10/30/2017 COREY NGUYEN MD Ot Z79.899 OTHER [facility] (CURRENT) DRUG THERAPY 10/30/2017 COREY NGUYEN MD Ot Z87.891 PERSONAL HISTORY OF NICOTINE DEPENDENCE 10/30/2017 COREY NGUYEN MD Ot D63.1 ANEMIA IN CHRONIC KIDNEY DISEASE 10/30/2017 COREY NGUYEN MD Ot E10.21 TYPE 1 DIABETES MELLITUS WITH DIABETIC N 10/30/2017 COREY NGUYEN MD Ot K58.9 IRRITABLE BOWEL SYNDROME WITHOUT DIARRHE 10/30/2017 COREY NGUYEN MD Ot N18.3 CHRONIC KIDNEY DISEASE, STAGE 3 (MODERAT 10/30/2017 COREY NGUYEN MD Ot 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 10/30/2017 COREY NGUYEN MD Ot 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 10/30/2017 COREY NGUYEN MD Ot Z87.891 PERSONAL HISTORY OF NICOTINE DEPENDENCE 11/26/2017 COREY NGUYEN MD Ot D63.1 ANEMIA IN CHRONIC KIDNEY DISEASE 11/26/2017 COREY NGUYEN MD Ot E10.21 TYPE 1 DIABETES MELLITUS WITH DIABETIC N 11/26/2017 COREY NGUYEN MD Ot K58.9 IRRITABLE BOWEL SYNDROME WITHOUT DIARRHE 11/26/2017 COREY NGUYEN MD Ot N18.3 CHRONIC KIDNEY DISEASE, STAGE 3 (MODERAT 11/26/2017 COREY NGUYEN MD Ot Z79.4 [facility] (CURRENT) USE OF INSULIN 11/26/2017 COREY NGUYEN MD Ot 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 11/26/2017 COREY NGUYEN MD Ot Z87.891 PERSONAL HISTORY OF NICOTINE DEPENDENCE 01/17/2018 COREY NGUYEN MD Ot D63.1 ANEMIA IN CHRONIC KIDNEY DISEASE 01/17/2018 COREY NGUYEN MD Ot E10.21 TYPE 1 DIABETES MELLITUS WITH DIABETIC N 01/17/2018 COREY NGUYEN MD Ot K58.9 IRRITABLE BOWEL SYNDROME WITHOUT DIARRHE 01/17/2018 COREY NGUYEN MD Ot N18.3 CHRONIC KIDNEY DISEASE, STAGE 3 (MODERAT 01/17/2018 COREY NGUYEN MD Ot 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 01/17/2018 COREY NGUYEN MD Ot 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 01/17/2018 COREY NGUYEN MD Ot Z87.891 PERSONAL HISTORY OF NICOTINE DEPENDENCE 02/24/2018 LOR YOUNG MD Ot D64.9 ANEMIA, UNSPECIFIED 02/24/2018 LOR YOUNG MD Ot E10.9 TYPE 1 DIABETES MELLITUS WITHOUT COMPLIC 02/24/2018 LOR YOUNG MD Ot E55.9 VITAMIN D DEFICIENCY, UNSPECIFIED 02/24/2018 KEVIN YOUNG MDINE Ot I95.1 ORTHOSTATIC HYPOTENSION 02/24/2018 HANNAH CASTILLO, LOR Ot I95.89 OTHER HYPOTENSION 02/24/2018 LOR YOUNG MD Ot N18.3 CHRONIC KIDNEY DISEASE, STAGE 3 (MODERAT 02/24/2018 LOR YOUNG MD Ot R80.9 PROTEINURIA, UNSPECIFIED 03/05/2018 REJI CASTILLO, DARNELL W Ot E10.8 TYPE 1 DIABETES MELLITUS WITH UNSPECIFIE 03/12/2018 DARNELL MENDOZA MD W Ot E10.8 TYPE 1 DIABETES MELLITUS WITH UNSPECIFIE 03/14/2018 LOR YOUNG MD Ot D64.9 ANEMIA, UNSPECIFIED 03/14/2018 LOR YOUNG MD Ot E10.9 TYPE 1 DIABETES MELLITUS WITHOUT COMPLIC 03/14/2018 LOR YOUNG MD Ot E55.9 VITAMIN D DEFICIENCY, UNSPECIFIED 03/14/2018 HANNAH CASTILLO, LOR Ot I95.1 ORTHOSTATIC HYPOTENSION 03/14/2018 HANNAH CASTILLO, LOR Ot I95.89 OTHER HYPOTENSION 03/14/2018 LOR YOUNG MD Ot N18.3 CHRONIC KIDNEY DISEASE, STAGE 3 (MODERAT 03/14/2018 LOR YOUNG MD Ot R80.9 PROTEINURIA, UNSPECIFIED 03/18/2018 COREY NGUYEN MD Ot D63.1 ANEMIA IN CHRONIC KIDNEY DISEASE 03/18/2018 COREY NGUYEN MD Ot E10.21 TYPE 1 DIABETES MELLITUS WITH DIABETIC N 03/18/2018 COREY NGUYEN MD Ot K58.9 IRRITABLE BOWEL SYNDROME WITHOUT DIARRHE 03/18/2018 COREY NGUYEN MD, Ot N18.3 CHRONIC KIDNEY DISEASE, STAGE 3 (MODERAT 03/18/2018 COREY NGUYEN MD Ot Z79.4 [facility] (CURRENT) USE OF INSULIN 03/18/2018 COREY NGUYEN MD Ot 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 03/18/2018 COREY NGUYEN MD, Ot Z87.891 PERSONAL HISTORY OF NICOTINE DEPENDENCE 03/19/2018 COREY NGUYEN MD Ot D63.1 ANEMIA IN CHRONIC KIDNEY DISEASE 03/19/2018 COREY NGUYEN MD Ot E10.21 TYPE 1 DIABETES MELLITUS WITH DIABETIC N 03/19/2018 COREY NGUYEN MD Ot K58.9 IRRITABLE BOWEL SYNDROME WITHOUT DIARRHE 03/19/2018 COREY NGUYEN MD Ot N18.3 CHRONIC KIDNEY DISEASE, STAGE 3 (MODERAT 03/19/2018 COREY NGUYEN MD Ot Z79.4 [facility] (CURRENT) USE OF INSULIN 03/19/2018 COREY NGUYEN MD Ot Z79.899 OTHER [facility] (CURRENT) DRUG THERAPY 03/19/2018 COREY NGUYEN MD, Ot Z87.891 PERSONAL HISTORY OF NICOTINE DEPENDENCE 03/21/2018 LOR YOUNG MD Ot D64.9 ANEMIA, UNSPECIFIED 03/21/2018 LOR YOUNG MD Ot E10.9 TYPE 1 DIABETES MELLITUS WITHOUT COMPLIC 03/21/2018 LOR YOUNG MD Ot E55.9 VITAMIN D DEFICIENCY, UNSPECIFIED 03/21/2018 LOR YOUNG MD Ot I95.1 ORTHOSTATIC HYPOTENSION 03/21/2018 KEVIN YOUNG MDINE Ot I95.89 OTHER HYPOTENSION 03/21/2018 LOR YOUNG MD Ot N18.3 CHRONIC KIDNEY DISEASE, STAGE 3 (MODERAT 03/21/2018 LOR YOUNG MD Ot R80.9 PROTEINURIA, UNSPECIFIED 03/28/2018 REJI CASTILLO, DARNELL Johnson Ot E10.8 TYPE 1 DIABETES MELLITUS WITH UNSPECIFIE 04/04/2018 COREY NGUYEN MD, Ot D63.1 ANEMIA IN CHRONIC KIDNEY DISEASE 04/04/2018 COREY NGUYEN MD, Ot E10.21 TYPE 1 DIABETES MELLITUS WITH DIABETIC N 04/04/2018 COREY NGUYEN MD, Ot K58.9 IRRITABLE BOWEL SYNDROME WITHOUT DIARRHE 04/04/2018 COREY NGUYEN MD, Ot N18.3 CHRONIC KIDNEY DISEASE, STAGE 3 (MODERAT 04/04/2018 COREY NGUYEN MD, Ot 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 04/04/2018 COREY NGUYEN MD, Ot Z79.899 OTHER [facility] (CURRENT) DRUG THERAPY 04/04/2018 COREY NGUYEN MD, Ot Z87.891 PERSONAL HISTORY OF NICOTINE DEPENDENCE Procedures Code Description [place] [address] ROUTINE VENIPUNCTURE 04/08/2013 50023 MICRO ALBUMIN-IN HOUSE 04/08/2013 02811 CBC 04/08/2013 59406 CMP 04/08/2013 71103 LIPID PANEL 04/08/2013 [id number] GFR CALC (RESULT ONLY) 04/08/2013 85006 MICROALBUMIN 04/08/2013 31416 A1C (RML) 04/09/2013 01924 ROUTINE VENIPUNCTURE 07/20/2013 83266 CMP 07/20/2013 70405 LIPID PANEL 07/20/2013 24607 A1C (IN-HOUSE) 07/20/2013 40166 MICRO ALBUMIN-IN HOUSE 08/03/2013 07706 A1C (IN-HOUSE) 08/03/2013 32025 CULTURE URINE 08/05/2013 91634 ROUTINE VENIPUNCTURE 08/14/2013 70219 EKG, TRACING (IN-HOUSE) 08/14/2013 34020 MAGNESIUM 08/14/2013 40407 TSH 08/14/2013 03588 CULTURE URINE 08/15/2013 02138 STRESS TEST, CARDIAC ( SPECIFY TYPE) 08/26/2013 96786 ECHO 2D 08/26/2013 28624 VENOUS DOPPLER UNILATERAL/ LIMITED 10/28/2013 39766 OXIMETRY 10/28/2013 76448 ROUTINE VENIPUNCTURE 11/09/2013 88423 MICRO ALBUMIN-IN HOUSE 11/09/2013 33831 A1C (IN-HOUSE) 11/09/2013 36188 UA LONG DIP 11/09/2013 31097 CBC 11/09/2013 5286046 GFR CALC (RESULT ONLY) 11/09/2013 97920 CMP 11/09/2013 76362 LIPID PANEL 11/09/2013 84104 TSH 11/09/2013 21730 MICROALBUMIN 11/09/2013 83253 MICRO ALBUMIN-IN HOUSE 03/02/2014 14056 A1C (IN-HOUSE) 03/02/2014 13133 MICROALBUMIN 03/03/2014 30841 ROUTINE VENIPUNCTURE 03/23/2014 2007164 GFR CALC (RESULT ONLY) 03/23/2014 28695 CMP 03/23/2014 56102 IRON SERUM 03/23/2014 64872 IRON BNDNG CAP 03/23/2014 98687 CBC 03/23/2014 34567 FERRITIN 03/23/2014 76011 VIT B 12 03/23/2014 28323 FOLATE 03/23/2014 General S Patricia Saavedra 03/24/2014 IRGROUP IRON GROUP (Iron,TIBC, Ferritin) 03/24/2014 40306 EKG, TRACING (IN-HOUSE) 04/28/2014 33263 ROUTINE VENIPUNCTURE 05/13/2014 87763 CBC 05/13/2014 99619 LIPID PANEL 05/13/2014 0944755 IMMATURE PLATELET FRACTION (RESULT ONLY) 05/13/2014 61944 RETICULOCYTE COUNT 05/13/2014 4991986 ANEM JI 05/14/2014 [id number] HEMATOLOGY OTHER REPORT 05/14/2014 ANEMIAANA ANEMIA ANALYZER 05/18/2014 55376 ROUTINE VENIPUNCTURE 07/08/2014 27726 A1C (IN-HOUSE) 07/08/2014 06948 CBC 07/08/2014 63961 CMP 07/08/2014 5856225 GFR CALC (RESULT ONLY) 07/08/2014 93899 MICROALBUMIN 07/08/2014 16511 MAMMOGRAM DX, DIONNE 07/21/2014 21254 PAP SMEAR 07/21/2014 64359 OXIMETRY 07/21/2014 Medical O [facility] 07/21/2014 Q0091 PAP SMEAR OBTAIN SMEAR 07/21/2014 35960 MRI BREAST LEFT 08/02/2014 23200 ROUTINE VENIPUNCTURE 11/22/2014 36080 A1C (IN-HOUSE) 11/22/2014 61942 TEST, URINE (IN- HOUSE) 11/22/2014 14885 MICROALBUMIN 11/22/2014 4332999 GFR CALC (RESULT ONLY) 11/22/2014 09413 BMP 11/22/2014 25405 LIPID PANEL 11/22/2014 32719 OXIMETRY 02/15/2015 51438 A1C (IN-HOUSE) 03/16/2015 01148 MICROALBUMIN 03/17/2015 Results Test Result Range Automated blood complete blood count (hemogram) panel - 08/03/16 12:25 Blood leukocytes automated count (number/volume) 8.3 10*3/uL 4.3-11.0 Blood erythrocytes automated count (number/volume) 3.44 10*6/uL 4.35-5.85 Venous blood hemoglobin measurement (mass/volume) 10.5 g/dL 11.5-16.0 Blood hematocrit (volume fraction) 31 % 35-52 Automated erythrocyte mean corpuscular volume 91 [foz_us] 80-99 Automated erythrocyte mean corpuscular hemoglobin (mass per erythrocyte) 31 pg 25-34 Automated erythrocyte mean corpuscular hemoglobin concentration measurement ( mass/volume) 34 g/dL 32-36 Automated erythrocyte distribution width ratio 13.1 % 10.0-14.5 Automated blood platelet count (count/volume) 221 10*3/uL 130-400 Automated blood platelet mean volume measurement 11.1 [foz_us] 7.4-10.4 Complete urinalysis with reflex to culture - 08/03/16 12:25 Urine color determination YELLOW NRG Urine clarity determination CLEAR NRG Urine pH measurement by test strip 7 5-9 Specific gravity of urine by test strip 1.005 1.016- 1.022 Urine protein assay by test strip, semi-quantitative 2+ NEGATIVE Urine glucose detection by automated test strip 4+ NEGATIVE Erythrocytes detection in urine sediment by light microscopy NEGATIVE NEGATIVE Urine ketones detection by automated test strip NEGATIVE NEGATIVE Urine nitrite detection by test strip NEGATIVE NEGATIVE Urine total bilirubin detection by test strip NEGATIVE NEGATIVE Urine urobilinogen measurement by automated test strip (mass/volume) NORMAL NORMAL Urine leukocyte esterase detection by dipstick NEGATIVE NEGATIVE Automated urine sediment erythrocyte count by microscopy (number/high power field) NONE NRG Automated urine sediment leukocyte count by microscopy (number/high power field ) [HPF] NRG Bacteria detection in urine sediment by light microscopy FEW NRG Squamous epithelial cells detection in urine sediment by light microscopy 25-50 NRG Crystals detection in urine sediment by light microscopy NONE NRG Casts detection in urine sediment by light microscopy NONE NRG Mucus detection in urine sediment by light microscopy NEGATIVE NRG Complete urinalysis with reflex to culture NO NRG Urine protein/creatinine mass ratio - 08/03/16 12:25 Urine protein measurement (mass/volume) 37 mg/dL 6-12 Urine creatinine measurement (mass/volume) 71 mg/dL 30- 125 Urine protein/creatinine mass ratio 0.52 NRG Serum or plasma renal function panel (Na, K, Cl, CO2, BUN, Cr, glucose,Ca, phos , alb) - 08/03/16 12:25 Serum or plasma sodium measurement (moles/volume) 131 mmol/L 135-145 Serum or plasma potassium measurement (moles/volume) 6.0 mmol/L 3.6-5.0 Serum or plasma chloride measurement (moles/volume) 101 mmol/L 98-107 Carbon dioxide 22 mmol/L 21-32 Serum or plasma anion gap determination (moles/volume) 8 mmol/L 5-14 Serum or plasma urea nitrogen measurement (mass/volume) 29 mg/dL 7-18 Serum or plasma creatinine measurement (mass/volume) 2.32 mg/dL 0.60-1.30 Serum or plasma urea nitrogen/creatinine mass ratio 13 NRG Serum or plasma creatinine measurement with calculation of estimated glomerular filtration rate 24 NRG Serum or plasma glucose measurement (mass/volume) 543 mg/dL 70-105 Serum or plasma calcium measurement (mass/volume) 8.6 mg/dL 8.5-10.1 Serum or plasma albumin measurement (mass/volume) 3.7 g/dL 3.2-4.5 Serum or plasma phosphate measurement (mass/volume) 2.3 mg/dL 2.3-4.7 Serum or plasma uric acid measurement (mass/volume) - 08/03/16 12:25 Serum or plasma uric acid measurement (mass/volume) 5.8 mg/dL 2.6-7.2 Comp. Metabolic Panel (14) - 08/06/16 08:44 Glucose, Serum 219 mg/dL 65-99 BUN 19 mg/dL 6-20 Creatinine, Serum 1.54 mg/dL 0.57-1.00 eGFR If NonAfricn Am 43 mL/min/1.73 >59 eGFR If Africn Am 50 mL/min/1.73 >59 BUN/Creatinine Ratio 12 8-20 Sodium, Serum 140 mmol/L 134-144 Potassium, Serum 4.7 mmol/L 3.5-5.2 Chloride, Serum 101 mmol/L 97-108 Carbon Dioxide, Total 25 mmol/L 18-29 Calcium, Serum 8.1 mg/dL 8.7-10.2 Protein, Total, Serum 6.3 g/dL 6.0-8.5 Albumin, Serum 3.5 g/dL 3.5-5.5 Globulin, Total 2.8 g/dL 1.5-4.5 A/G Ratio 1.3 1.1-2.5 Bilirubin, Total 0.2 mg/dL 0.0-1.2 Alkaline Phosphatase, S 69 IU/L 39-117 AST (SGOT) 17 IU/L 0-40 ALT (SGPT) 10 IU/L 0-32 Serum or plasma renal function panel (Na, K, Cl, CO2, BUN, Cr, glucose,Ca, phos , alb) - 08/15/16 13:30 Serum or plasma sodium measurement (moles/volume) 141 mmol/L 135-145 Serum or plasma potassium measurement (moles/volume) 4.5 mmol/L 3.6-5.0 Serum or plasma chloride measurement (moles/volume) 111 mmol/L 98-107 Carbon dioxide 27 mmol/L 21-32 Serum or plasma anion gap determination (moles/volume) 3 mmol/L 5-14 Serum or plasma urea nitrogen measurement (mass/volume) 20 mg/dL 7-18 Serum or plasma creatinine measurement (mass/volume) 1.51 mg/dL 0.60-1.30 Serum or plasma urea nitrogen/creatinine mass ratio 13 NRG Serum or plasma creatinine measurement with calculation of estimated glomerular filtration rate 39 NRG Serum or plasma glucose measurement (mass/volume) 122 mg/dL 70-105 Serum or plasma calcium measurement (mass/volume) 8.6 mg/dL 8.5-10.1 Serum or plasma albumin measurement (mass/volume) 3.4 g/dL 3.2-4.5 Serum or plasma phosphate measurement (mass/volume) 3.2 mg/dL 2.3-4.7 Complete blood count (CBC) with automated white blood cell (WBC) differential - 10/31/16 12:58 Blood leukocytes automated count (number/volume) 6.7 10*3/uL 4.3-11.0 Blood erythrocytes automated count (number/volume) 3.61 10*6/uL 4.35-5.85 Venous blood hemoglobin measurement (mass/volume) 10.9 g/dL 11.5-16.0 Blood hematocrit (volume fraction) 33 % 35-52 Automated erythrocyte mean corpuscular volume 90 [foz_us] 80-99 Automated erythrocyte mean corpuscular hemoglobin (mass per erythrocyte) 30 pg 25-34 Automated erythrocyte mean corpuscular hemoglobin concentration measurement ( mass/volume) 34 g/dL 32-36 Automated erythrocyte distribution width ratio 13.0 % 10.0-14.5 Automated blood platelet count (count/volume) 216 10*3/uL 130-400 Automated blood platelet mean volume measurement 10.4 [foz_us] 7.4-10.4 Automated blood neutrophils/100 leukocytes 50 % 42-75 Automated blood lymphocytes/100 leukocytes 37 % 12-44 Blood monocytes/100 leukocytes 7 % 0-12 Automated blood eosinophils/100 leukocytes 6 % 0-10 Automated blood basophils/100 leukocytes 1 % 0-10 Blood neutrophils automated count (number/volume) 3.3 10*3 1.8-7.8 Blood lymphocytes automated count (number/volume) 2.5 10*3 1.0-4.0 Blood monocytes automated count (number/volume) 0.5 10*3 0.0-1.0 Automated eosinophil count 0.4 10*3/uL 0.0-0.3 Automated blood basophil count (count/volume) 0.0 10*3/uL 0.0-0.1 Urine protein/creatinine mass ratio - 10/31/16 12:58 Urine protein measurement (mass/volume) 122 mg/dL 6-12 Urine creatinine measurement (mass/volume) 65 mg/dL 30- 125 Urine protein/creatinine mass ratio 1.88 NR Serum or plasma renal function panel (Na, K, Cl, CO2, BUN, Cr, glucose,Ca, phos , alb) - 10/31/16 12:58 Serum or plasma sodium measurement (moles/volume) 139 mmol/L 135-145 Serum or plasma potassium measurement (moles/volume) 4.1 mmol/L 3.6-5.0 Serum or plasma chloride measurement (moles/volume) 109 mmol/L 98-107 Carbon dioxide 23 mmol/L 21-32 Serum or plasma anion gap determination (moles/volume) 7 mmol/L 5-14 Serum or plasma urea nitrogen measurement (mass/volume) 21 mg/dL 7-18 Serum or plasma creatinine measurement (mass/volume) 1.68 mg/dL 0.60-1.30 Serum or plasma urea nitrogen/creatinine mass ratio 13 NRG Serum or plasma creatinine measurement with calculation of estimated glomerular filtration rate 35 NRG Serum or plasma glucose measurement (mass/volume) 58 mg/dL 70-105 Serum or plasma calcium measurement (mass/volume) 8.4 mg/dL 8.5-10.1 Serum or plasma albumin measurement (mass/volume) 3.5 g/dL 3.2-4.5 Serum or plasma phosphate measurement (mass/volume) 3.8 mg/dL 2.3-4.7 Hemoglobin A1c - 05/22/17 13:05 Hemoglobin A1c 6.3 % 4.5-6.2 Automated blood complete blood count (hemogram) panel - 06/17/17 12:55 Blood leukocytes automated count (number/volume) 8.2 10*3/uL 4.3-11.0 Blood erythrocytes automated count (number/volume) 3.44 10*6/uL 4.35-5.85 Venous blood hemoglobin measurement (mass/volume) 10.3 g/dL 11.5-16.0 Blood hematocrit (volume fraction) 31 % 35-52 Automated erythrocyte mean corpuscular volume 91 [foz_us] 80-99 Automated erythrocyte mean corpuscular hemoglobin (mass per erythrocyte) 30 pg 25-34 Automated erythrocyte mean corpuscular hemoglobin concentration measurement ( mass/volume) 33 g/dL 32-36 Automated erythrocyte distribution width ratio 14.1 % 10.0-14.5 Automated blood platelet count (count/volume) 220 10*3/uL 130-400 Automated blood platelet mean volume measurement 10.7 [foz_us] 7.4-10.4 Serum or plasma renal function panel (Na, K, Cl, CO2, BUN, Cr, glucose,Ca, phos , alb) - 06/17/17 12:55 Serum or plasma sodium measurement (moles/volume) 138 mmol/L 135-145 Serum or plasma potassium measurement (moles/volume) 4.5 mmol/L 3.6-5.0 Serum or plasma chloride measurement (moles/volume) 112 mmol/L 98-107 Carbon dioxide 19 mmol/L 21-32 Serum or plasma anion gap determination (moles/volume) 7 mmol/L 5-14 Serum or plasma urea nitrogen measurement (mass/volume) 32 mg/dL 7-18 Serum or plasma creatinine measurement (mass/volume) 2.22 mg/dL 0.60-1.30 Serum or plasma urea nitrogen/creatinine mass ratio 14 NRG Serum or plasma creatinine measurement with calculation of estimated glomerular filtration rate 25 NRG Serum or plasma glucose measurement (mass/volume) 179 mg/dL 70-105 Serum or plasma calcium measurement (mass/volume) 8.4 mg/dL 8.5-10.1 Serum or plasma albumin measurement (mass/volume) 3.7 g/dL 3.2-4.5 Serum or plasma phosphate measurement (mass/volume) 3.5 mg/dL 2.3-4.7 25-hydroxyvitamin D measurement - 06/17/17 12:55 25-hydroxy vitamin D measurement 18 % 30-100 Complete urinalysis with reflex to culture - 06/17/17 13:05 Urine color determination YELLOW NRG Urine clarity determination CLEAR NRG Urine pH measurement by test strip 6 5-9 Specific gravity of urine by test strip 1.015 1.016- 1.022 Urine protein assay by test strip, semi-quantitative 3+ NEGATIVE Urine glucose detection by automated test strip NEGATIVE NEGATIVE Erythrocytes detection in urine sediment by light microscopy NEGATIVE NEGATIVE Urine ketones detection by automated test strip NEGATIVE NEGATIVE Urine nitrite detection by test strip NEGATIVE NEGATIVE Urine total bilirubin detection by test strip NEGATIVE NEGATIVE Urine urobilinogen measurement by automated test strip (mass/volume) NORMAL NORMAL Urine leukocyte esterase detection by dipstick NEGATIVE NEGATIVE Automated urine sediment erythrocyte count by microscopy (number/high power field) NONE NRG Automated urine sediment leukocyte count by microscopy (number/high power field ) RARE NRG Bacteria detection in urine sediment by light microscopy TRACE NRG Squamous epithelial cells detection in urine sediment by light microscopy 10-25 NRG Crystals detection in urine sediment by light microscopy NONE NRG Casts detection in urine sediment by light microscopy NONE NRG Mucus detection in urine sediment by light microscopy NEGATIVE NRG Complete urinalysis with reflex to culture NO NRG Urine protein/creatinine mass ratio - 06/17/17 13:05 Urine protein measurement (mass/volume) 46 mg/dL 6-12 Urine creatinine measurement (mass/volume) 90 mg/dL 30- 125 Urine protein/creatinine mass ratio 0.51 NRG Bacterial urine culture - 08/26/17 12:10 Bacterial urine culture [id number] NRG COLONY COUNT >100,000/ML NRG FTX;REPORTABLE PLUS, MIXED CHRISTIANE <10,000/ML NRG Complete blood count (CBC) with automated white blood cell (WBC) differential - 11/20/17 15:00 Blood leukocytes automated count (number/volume) 8.5 10*3/uL 4.3-11.0 Blood erythrocytes automated count (number/volume) 3.59 10*6/uL 4.35-5.85 Venous blood hemoglobin measurement (mass/volume) 10.8 g/dL 11.5-16.0 Blood hematocrit (volume fraction) 33 % 35-52 Automated erythrocyte mean corpuscular volume 91 [foz_us] 80-99 Automated erythrocyte mean corpuscular hemoglobin (mass per erythrocyte) 30 pg 25-34 Automated erythrocyte mean corpuscular hemoglobin concentration measurement ( mass/volume) 33 g/dL 32-36 Automated erythrocyte distribution width ratio 13.3 % 10.0-14.5 Automated blood platelet count (count/volume) 213 10*3/uL 130-400 Automated blood platelet mean volume measurement 11.3 [foz_us] 7.4-10.4 Automated blood neutrophils/100 leukocytes 50 % 42-75 Automated blood lymphocytes/100 leukocytes 38 % 12-44 Blood monocytes/100 leukocytes 7 % 0-12 Automated blood eosinophils/100 leukocytes 4 % 0-10 Automated blood basophils/100 leukocytes 1 % 0-10 Blood neutrophils automated count (number/volume) 4.3 10*3 1.8-7.8 Blood lymphocytes automated count (number/volume) 3.2 10*3 1.0-4.0 Blood monocytes automated count (number/volume) 0.6 10*3 0.0-1.0 Automated eosinophil count 0.4 10*3/uL 0.0-0.3 Automated blood basophil count (count/volume) 0.1 10*3/uL 0.0-0.1 SUREPATH PAP AND HPV mRNA E6/E7 - 12/25/17 16:48 CLINICAL INFORMATION: NRG LMP: 12/16/2017 NRG PREV. PAP: 2014 NRG PREV. BX: NONE NRG SOURCE: [employer] NRG STATEMENT OF ADEQUACY: NRG INTERPRETATION/RESULT: NRG COREMAKER EXPERIMENTAL: NRG HPV mRNA E6/E7, SUREPATH VIAL Not Detected NOT DETECTED Automated blood complete blood count (hemogram) panel - 02/21/18 11:31 Blood leukocytes automated count (number/volume) 9.3 10*3/uL 4.3-11.0 Blood erythrocytes automated count (number/volume) 3.31 10*6/uL 4.35-5.85 Venous blood hemoglobin measurement (mass/volume) 9.9 g/dL 11.5-16.0 Blood hematocrit (volume fraction) 30 % 35-52 Automated erythrocyte mean corpuscular volume 90 [foz_us] 80-99 Automated erythrocyte mean corpuscular hemoglobin (mass per erythrocyte) 30 pg 25-34 Automated erythrocyte mean corpuscular hemoglobin concentration measurement ( mass/volume) 33 g/dL 32-36 Automated erythrocyte distribution width ratio 13.2 % 10.0-14.5 Automated blood platelet count (count/volume) 163 10*3/uL 130-400 Automated blood platelet mean volume measurement 10.9 [foz_us] 7.4-10.4 Serum or plasma renal function panel (Na, K, Cl, CO2, BUN, Cr, glucose,Ca, phos , alb) - 02/21/18 11:31 Serum or plasma sodium measurement (moles/volume) 141 mmol/L 135-145 Serum or plasma potassium measurement (moles/volume) 4.1 mmol/L 3.6-5.0 Serum or plasma chloride measurement (moles/volume) 112 mmol/L 98-107 Carbon dioxide 24 mmol/L 21-32 Serum or plasma anion gap determination (moles/volume) 5 mmol/L 5-14 Serum or plasma urea nitrogen measurement (mass/volume) 35 mg/dL 7-18 Serum or plasma creatinine measurement (mass/volume) 2.16 mg/dL 0.60-1.30 Serum or plasma urea nitrogen/creatinine mass ratio 16 NRG Serum or plasma creatinine measurement with calculation of estimated glomerular filtration rate 26 NRG Serum or plasma glucose measurement (mass/volume) 124 mg/dL 70-105 Serum or plasma calcium measurement (mass/volume) 8.2 mg/dL 8.5-10.1 Serum or plasma albumin measurement (mass/volume) 3.5 g/dL 3.2-4.5 Serum or plasma phosphate measurement (mass/volume) 3.1 mg/dL 2.3-4.7 Serum or plasma uric acid measurement (mass/volume) - 02/21/18 11:31 Serum or plasma uric acid measurement (mass/volume) 6.2 mg/dL 2.6-7.2 Magnesium - 02/21/18 11:31 Magnesium 2.0 mg/dL 1.8-2.4 Complete urinalysis with reflex to culture - 02/21/18 11:37 Urine color determination YELLOW NRG Urine clarity determination CLEAR NRG Urine pH measurement by test strip 7 5-9 Specific gravity of urine by test strip 1.010 1.016- 1.022 Urine protein assay by test strip, semi-quantitative 2+ NEGATIVE Urine glucose detection by automated test strip NEGATIVE NEGATIVE Erythrocytes detection in urine sediment by light microscopy 1+ NEGATIVE Urine ketones detection by automated test strip NEGATIVE NEGATIVE Urine nitrite detection by test strip NEGATIVE NEGATIVE Urine total bilirubin detection by test strip NEGATIVE NEGATIVE Urine urobilinogen measurement by automated test strip (mass/volume) NORMAL NORMAL Urine leukocyte esterase detection by dipstick NEGATIVE NEGATIVE Automated urine sediment erythrocyte count by microscopy (number/high power field) NONE NRG Automated urine sediment leukocyte count by microscopy (number/high power field ) NONE NRG Bacteria detection in urine sediment by light microscopy TRACE NRG Squamous epithelial cells detection in urine sediment by light microscopy 2-5 NRG Crystals detection in urine sediment by light microscopy NONE NRG Casts detection in urine sediment by light microscopy NONE NRG Mucus detection in urine sediment by light microscopy NEGATIVE NRG Complete urinalysis with reflex to culture NO NRG Urine protein/creatinine mass ratio - 02/21/18 11:37 Urine protein measurement (mass/volume) 26 mg/dL 6-12 Urine creatinine measurement (mass/volume) 78 mg/dL 30- 125 Urine protein/creatinine mass ratio 0.33 NRG THYROID STIMULATING HORMONE - 03/04/18 08:37 THYROID STIMULATING HORMONE 3.79 u[iU]/mL 0.35-4.94 Serum or plasma thyroxine (T4) free measurement (mass/volume) - 03/04/18 08:37 Serum or plasma thyroxine (T4) free measurement (mass/volume) 1.22 ng/dL 0.70-1.48 Adrenocorticotropic hormone (ACTH) measurement - 03/04/18 08:37 Adrenocorticotropic hormone (ACTH) measurement 59 pg/mL 5 -27 Serum or plasma thyroperoxidase antibody assay (units/volume) - 03/04/18 08:37 Serum or plasma thyroperoxidase antibody assay (units/volume) 25.69 % 0.00-100.00 Morning cortisol measurement - 03/04/18 08:37 Cortisol AM 40.8 % 6.0-28.0 Cyanocobalamin measurement - 03/04/18 08:37 Vitamin B12 1929 pg/mL 200-1000 [id number] - 03/04/18 08:37 Serum tissue transglutaminase IgA antibody detection <20.0 0.0-19.9 Serum gliadin IgA antibody assay (units/volume) < % 0.0- 19.9 Gliadin IgG antibody assay < % 0.0-19.9 Serum or plasma IgA measurement (mass/volume) 144 % 71- 263 Gastric fluid parietal cell antibody detection by immunofluorescence - 08:37 Gastric parietal cell antibody titer < <1:20 ADRENAL ANTIBODY SCREEN T TITE - 03/04/18 08:37 [id number] NEGATIVE NRG Encounters ACCT No. Visit Date/Time Discharge Status Pt. Type Provider Facility Loc./Unit Complaint [id number] 03/16/2015 15:58:00 03/16/2015 23:59:59 [facility] Outpatient ALAN CARABALLO APRN [id number] 02/15/2015 15:37:00 02/15/2015 23:59:59 [facility] Outpatient ALAN CARABALLO APRN [id number] 11/22/2014 10:38:00 11/22/2014 23:59:59 [facility] Outpatient ALAN CARABALLO APRN [id number] 11/22/2014 10:38:00 11/22/2014 23:59:59 CLS Outpatient ALAN CARABALLO APRN [id number] 08/02/2014 15:15:00 08/02/2014 23:59:59 CLS Outpatient [id number] 07/21/2014 11:01:00 07/21/2014 23:59:59 CLS Outpatient CHEN MCCOY APRN [id number] 07/08/2014 11:50:00 07/08/2014 23:59:59 CLS Outpatient ALAN CARABALLO APRN [id number] 07/08/2014 11:50:00 07/08/2014 23:59:59 CLS Outpatient RASHMI GRAVES, ALAN S [id number] 05/13/2014 11:35:00 05/13/2014 23:59:59 CLS Outpatient RASHMI CHINESE TEACHERANTONIOA S [id number] 04/28/2014 08:39:00 04/28/2014 23:59:59 CLS Outpatient PIERSON DOLORENA [id number] 04/28/2014 08:39:00 04/28/2014 23:59:59 CLS Outpatient PIERSON DOLORENA [id number] 03/23/2014 08:40:00 03/23/2014 23:59:59 CLS Outpatient RASHMI CHINESE TEACHERALAN S [id number] 03/02/2014 14:51:00 03/02/2014 23:59:59 CLS Outpatient RASHMI CHINESE TEACHERALAN S [id number] 03/02/2014 14:51:00 03/02/2014 23:59:59 CLS Outpatient RASHMIALAN INTERIANO APRN S [id number] 11/09/2013 10:26:00 11/09/2013 23:59:59 CLS Outpatient RASHMI CHINESE TEACHERALAN Anderson S [id number] 11/09/2013 10:26:00 11/09/2013 23:59:59 CLS Outpatient RASHMI CHINESE TEACHERANTONIOA S [id number] 10/28/2013 09:30:00 10/28/2013 23:59:59 CLS Outpatient PIERSON DOLORENA [id number] 10/28/2013 09:30:00 10/28/2013 23:59:59 CLS Outpatient PIERSON DOLORENA Richard [id number] 08/26/2013 10:49:00 08/26/2013 23:59:59 CLS Outpatient PIERSON DOLORENA [id number] 08/14/2013 12:12:00 08/14/2013 23:59:59 CLS Outpatient PIERSON DOLORENA [id number] 08/03/2013 10:51:00 08/03/2013 23:59:59 CLS Outpatient PIERSON DOLORENA [id number] 10/20/2012 00:00:00 10/20/2012 23:59:59 CLS Outpatient RASHMI CHINESE TEACHERMARTINALAN S [id number] 08/03/2013 10:51:00 Document Registration [id number] 07/20/2013 10:23:00 Document Registration [id number] 06/24/2013 10:11:00 Document Registration [id number] 04/08/2013 10:13:00 Document Registration [id number] 04/08/2013 10:13:00 Document Registration [id number] 04/03/2018 08:20:00 04/03/2018 23:59:59 CLS Outpatient COREY NGUYEN MD [facility] ONC [id number] 03/12/2018 13:21:00 03/18/2018 00:01:00 DIS Outpatient COREY NGUYEN MD [facility] ONC [id number] 03/04/2018 08:10:00 03/04/2018 23:59:59 CLS Outpatient DARNELL MENDOZA MD [facility] LAB E10.8 E10.65 [id number] 02/21/2018 11:18:00 02/21/2018 23:59:59 CLS Outpatient LOR YOUNG MD [facility] LAB N18.3,R80.9,E10.9, D64.9 [id number] 11/20/2017 14:55:00 11/26/2017 00:01:00 DIS Outpatient COREY NGUYEN MD [facility] ONC [id number] 08/26/2017 11:40:00 08/26/2017 23:59:59 CLS Outpatient LOR YOUNG MD [facility] LAB N18.3 R80.9 E10.9 I95.1 [id number] 07/31/2017 11:29:00 08/24/2017 00:01:00 DIS Outpatient COREY NGUYEN MD [facility] ONC [id number] 06/05/2017 12:46:00 2017 00:01:00 DIS Outpatient COREY NGUYEN MD [facility] ONC [id number] 06/17/2017 12:31:00 06/17/2017 23:59:59 CLS Outpatient LOR YOUNG MD [facility] LAB N18.3 R80.9 [id number] 05/22/2017 12:43:00 05/22/2017 23:59:59 CLS Outpatient ALAYNA ZUÑIGA BAILEY [facility] LAB [id number] 02/27/2017 13:33:00 03/05/2017 00:01:00 DIS Outpatient COREY NGUYEN MD [facility] ONC [id number] 02/27/2017 13:39:00 02/27/2017 23:59:59 CLS Outpatient LOR YOUNG MD [facility] LAB [id number] 01/22/2017 11:06:00 01/22/2017 23:59:59 CLS Outpatient FACUNDO CASTILLO FACC, ALI FACP CCDS [facility] CARD SOB [id number] 01/14/2017 11:33:00 01/14/2017 23:59:59 CLS Outpatient FACUNDO CASTILLO FACC, ALI FACP CCDS [facility] CARD SOB [id number] 11/22/2016 12:54:00 12/02/2016 00:01:00 DIS Outpatient COREY NGUYEN MD [facility] ONC [id number] 10/31/2016 12:38:00 10/31/2016 23:59:59 CLS Outpatient LOR YOUNG MD [facility] LAB N18.3,R80.9,E10.9, D64.9,I95.89 [id number] 08/15/2016 13:17:00 08/27/2016 10:12:00 DIS Outpatient COREY NGUYEN MD [facility] ONC [id number] 08/15/2016 13:19:00 08/15/2016 23:59:59 CLS Outpatient LOR YOUNG MD [facility] LAB [id number] 08/03/2016 12:14:00 08/03/2016 23:59:59 CLS Outpatient FADI YOUNG MD [facility] LAB CHRONIC KIDNEY DISEASE,PROTEINURIA,ANEMIA [id number] 06/13/2016 11:26:00 06/19/2016 00:01:00 DIS Outpatient COREY NGUYEN MD [facility] ONC [id number] 04/27/2016 14:33:00 04/27/2016 23:59:59 CLS Outpatient LOR YOUNG MD [facility] LAB CKD STAGE III, PROTEINURIA, DM W/O COMPLICATION [id number] 02/29/2016 13:09:00 03/06/2016 00:01:00 DIS Outpatient COREY NGUYEN MD [facility] ONC [id number] 01/30/2016 11:12:00 01/30/2016 23:59:59 CLS Outpatient LOR YOUNG MD [facility] RAD CHRONIC KIDNEY DISEASE [id number] 01/19/2016 11:02:00 01/19/2016 12:24:00 DIS Outpatient SAMANTHA DEE [facility] REHAB R HIP TROCHANTERIC BURSITIS [id number] 11/15/2015 13:57:00 11/28/2015 00:01:00 DIS Outpatient COREY NGUYEN MD [facility] ONC [id number] 08/24/2015 13:29:00 08/24/2015 00:01:00 DIS Outpatient COREY NGUYEN MD [facility] ONC [id number] 05/26/2015 14:25:00 05/31/2015 00:01:00 DIS Outpatient COREY NGUYEN MD [facility] ONC [id number] 09/01/2014 13:20:00 11/01/2014 00:01:00 DIS Outpatient COREY NGUYEN MD [facility] ONC [id number] 09/13/2014 10:44:00 09/13/2014 12:25:00 DIS Emergency ROLANDA MENDES [facility] ER LEFT THUMB LAC [id number] 07/28/2014 07:59:00 07/28/2014 23:59:59 CLS Outpatient CHEN MCCOY APRN [facility] RAD LEFT BREAST LUMP [id number] 03/17/2014 20:41:00 03/17/2014 22:37:00 DIS Emergency TIESHA MCKEON CHINESE TEACHER [facility] ER HEADACHE [id number] 11/02/2013 14:30:00 11/02/2013 23:59:59 CLS Outpatient FACUNDO CASTILLO FACRandolph, ALI FACP CCDS [facility] RAD RT LEG SWELLING [id number] 09/17/2013 10:46:00 09/18/2013 11:45:00 DIS Inpatient FACUNDO CASTILLO FACRandolph, ALI FACP CCDS [facility] CSD CP [id number] 09/17/2013 07:25:00 09/17/2013 23:59:59 CLS Outpatient FACUNDO CASTILLO FACRandolph, ALI FACP CCDS [facility] RAD CHEST DISCOMFORT, POSTURAL SYNCOPE [id number] 09/15/2013 08:49:00 09/15/2013 23:59:59 CLS Outpatient FACUNDO CASTILLO FACC, ALI FACP CCDS [facility] CARD CHEST DISCOMFORT, POSTURAL SYNCOPE [id number] 07/14/2013 18:32:00 07/14/2013 23:59:59 CLS Outpatient [id number] 05/28/2013 19:45:00 05/28/2013 20:28:00 DIS Emergency JOANNE ALLEN MD [facility] ER HYPOGLYCEMIA [id number] 04/25/2018 08:00:00 PEN Preadmit DAYAN ORTEGA MD [facility] CATARACT RIGHT EYE [id number] 10/06/2012 19:47:00 Document Registration [id number] 05/29/2012 14:40:00 Document Registration [id number] 08/05/2011 22:38:00 Document Registration [id number] 05/25/2011 01:24:00 Document Registration [id number] 12/17/2010 05:54:00 Document Registration [id number] 06/07/2010 13:04:00 Document Registration [id number] 05/29/2010 18:44:00 Document Registration [id number] 01/27/2018 14:20:00 01/27/2018 23:59:59 CLS Outpatient ALAN CARABALLO APRN [facility] [id number] 12/25/2017 14:20:00 Document Registration [id number] 08/07/2016 08:06:00 Document Registration
[2018-04-25] MEDS: CYCLOPENTOLATE 1% (CYCLOGYL) 2 ML DROPS OP SCH ×3 (06:58→07:05)
[2018-04-25] MEDS: PHENYLEPHRINE 10% OPHTH (NEO-SYN) 5 ML BTL OU SCH ×3 (06:58→07:05)
[2018-04-25] MEDS ORDERED: MIDAZOLAM 2 MG/2 ML (VERSED) VIAL ONE (07:17)
--- NOTE | 2018-04-25 07:31 | Ophthalmologist Pre-Op Note ---
Pre-Operative Progress Note H&P Reviewed The H&P was reviewed, patient examined and no changes noted. Date H&P Reviewed: Apr 25, 2018 Time H&P Reviewed: 07:31 Pre-Op Dx Cataract, Right Eye DAYAN ORTEGA MD Apr 25, 2018 07:31
--- NOTE | 2018-04-25 07:54 | Ophthalmology Operative Report ---
Cataract removal/placement IOL PREOPERATIVE DIAGNOSIS: Cataract Right Eye POSTOPERATIVE DIAGNOSIS: Cataract Right Eye PROCEDURE: Cataract removal and placement of posterior chamber implant, right eye SURGEON: Sami Ortega ANESTHESIA: Topical with sedation COMPLICATIONS: None ESTIMATED BLOOD LOSS: Minimal DESCRIPTION OF PROCEDURE: After proper informed consent was obtained, the patient, a 37 female, was taken to the Operating Room and the right eye was anesthetized with tetracaine. The right eye was then prepped and draped in the usual manner. A wire lid speculum was placed. A paracentesis was made at the left hand position. Preservative free lidocaine was injected into the anterior chamber followed by viscoelastic. A clear corneal incision was made in the temporal position. A capsulorrhexis was preformed and the central nuclear and cortical material were removed. The posterior capsule was polished and Fabiano 25.5 SN6CWS IOL was placed into the capsular bag. The residual viscoelastic was aspirated and balanced saline solution was injected into the anterior chamber. 0.1ml of Vancomycin (10mg/0.1ml ) was injected into the anterior chamber. The wound was checked and found to be water tight. The patient tolerated the procedure well without complications. SAMI ORTEGA MD Apr 25, 2018 07:54
[2018-04-25 08:00] VITALS: BP 180/90
--- NOTE | 2018-04-25 13:45 | Anesthesia-General Post-Op ---
MAC Patient Condition Mental Status/LOC: Same as Preop Cardiovascular: Satisfactory Nausea/Vomiting: Absent Respiratory: Satisfactory Pain: Controlled Complications: Absent Post Op Complications Complications None Follow Up Care/Instructions Patient Instructions None needed. Anesthesiology Discharge Order Discharge Order Patient is doing well, no complaints, stable vital signs, no apparent adverse anesthesia problems. No complications reported per nursing. BRAULIO RAMSEY CRNA Apr 25, 2018 13:45
--- NOTE | 2018-05-05 12:56 | Progress Note-Standard ---
Standard Progress Note Progress Notes/Assess & Plan Date Seen by Provider: Apr 25, 2018 Time Seen by Provider: 07:05 Progress/Assessment & Plan Addendum to Anesthesia Record ASA Class 2 MORRO IRVIN DO May 05, 2018 12:55
== END 2018-04-25 08:00 | disposition home or self-care (01) ==
LOC: SDC 06:34
PROVIDERS: ATTEND Specialist
DX: H25.11 Age-related nuclear cataract, right eye (principal); E10.9 Type 1 diabetes mellitus without complications; Z79.899 Other long term (current) drug therapy
CPT/HCPCS: 84703

== ENCOUNTER 2018-06-04 05:41 | Outpatient (CLI) | payer MEDICARE, MEDICAID ==
[~2018-06-04] VITALS: Ht 157.5 cm; Wt 54.4 kg
== END 2018-06-04 13:17 | disposition home or self-care (01) ==
LOC: PREOP 05:41
PROVIDERS: ATTEND Specialist
DX: Z01.818 Encounter for other preprocedural examination (principal)

== ENCOUNTER → 2018-06-04 | Outpatient (CLI) | payer MEDICARE, MEDICAID ==
[2018-06-04 15:14] LABS: BASOPHILS % (AUTO) 1 % (0-10); EOSINOPHILS # (AUTO) 0.2 10^3/uL (0.0-0.3); EOSINOPHILS % (AUTO) 2 % (0-10); HEMATOCRIT 30 % (35-52); LYMPHOCYTES # (AUTO) 2.2 X 10^3 (1.0-4.0); LYMPHOCYTES % (AUTO) 28 % (12-44); MEAN CORPUSCULAR HEMOGLOBIN 31 PG (25-34); MEAN CORPUSCULAR HGB CONC 33 G/DL (32-36); MEAN CORPUSCULAR VOLUME 92 FL (80-99); MEAN PLATELET VOLUME 11.3 FL (7.4-10.4); MONOCYTES # (AUTO) 0.3 X 10^3 (0.0-1.0); MONOCYTES % (AUTO) 3 % (0-12); NEUTROPHILS # (AUTO) 5.3 X 10^3 (1.8-7.8); NEUTROPHILS % (AUTO) 66 % (42-75); PLATELET COUNT 218 10^3/uL (130-400); RED BLOOD COUNT 3.26 10^6/uL (4.35-5.85); RED CELL DISTRIBUTION WIDTH 14.3 % (10.0-14.5)
[2018-06-04 15:17] LABS: BILIRUBIN,URINE NEGATIVE (NEGATIVE); CLARITY,URINE VERY CLOUDY; COLOR,URINE YELLOW; GLUCOSE, URINE (UA) NEGATIVE (NEGATIVE); KETONES,URINE NEGATIVE (NEGATIVE); LEUKOCYTE ESTERASE ,URINE 3+ (NEGATIVE); NITRITE,URINE POSITIVE (NEGATIVE); PH,URINE 5 (5-9); PROTEIN,URINE 3+ (NEGATIVE); UROBILINOGEN,URINE NORMAL (NORMAL)
[2018-06-04 15:29] LABS: BACTERIA,URINE MODERATE /HPF; RBC,URINE 0-2 /HPF; WBC,URINE TNTC /HPF
[2018-06-04 15:32] LABS: ALBUMIN 3.6 GM/DL (3.2-4.5); CALCIUM 8.7 MG/DL (8.5-10.1); CREATININE SERUM 2.74 MG/DL (0.60-1.30); PHOSPHORUS 2.8 MG/DL (2.3-4.7); POTASSIUM 4.4 MMOL/L (3.6-5.0)
== END ==
LOC: LAB 14:41
PROVIDERS: ATTEND Internal Medicine
DX: E10.22 Type 1 diabetes mellitus with diabetic chronic kidney disease (principal); N18.3 Chronic kidney disease, stage 3 (moderate); R80.9 Proteinuria, unspecified; D64.9 Anemia, unspecified; I95.89 Other hypotension; I95.1 Orthostatic hypotension; E55.9 Vitamin D deficiency, unspecified
CPT/HCPCS: 36415; 80069; 81000; 82306; 82570; 83970; 84156; 85025; 87077; 87088; 87186

== ENCOUNTER 2018-06-06 09:00 | Day surgery (SDC) | payer MEDICARE, MEDICAID ==
[~2018-06-06] VITALS: Ht 157.5 cm; Wt 54.4 kg
--- OUTSIDE RECORDS SUMMARY | 2018-06-06 09:04 | XMS REPORT | Encounter Summary ---
Author Author [facility] Organization [facility] Address Unknown Phone Unavailable Care Team Providers Care Membership Secretary Name Role Phone CharlesShanita sanchez TRIM STENCIL MAKER PCP Reason for Visit * Reason Comments Other Diabetic Supplies Encounter Details Date Type Department Care Team Description 03/27/2018 Telephone [facility] Deisy Baeza MD Other ( Diabetic Supplies) Physicians - Internal [address] [facility] Medicine [address] [place] [address] Medical [address] [phone] [address] [place] [address] Social History Tobacco Use Types Packs/Day Years Used Date Former Smoker Smokeless Tobacco: Never Used Sex Assigned at Date Recorded Not on file as of this encounter Miscellaneous Notes * Telephone Encounter - Reyes Valerio LPN - 04/03/2018 2:01 PM CDT Received LMN for insulin pump and supplies from [employer]. Routed to Dr. Linton for signature. Faxed signed LMN to [phone]. Fax verification received 03/31. * Telephone Encounter - Reyes Valerio LPN - 03/27/2018 1:42 PM CDT Patient called back. Patient stated DME company [employer] will fax request. Will call patient if [...]
--- OUTSIDE RECORDS SUMMARY | 2018-06-06 09:04 | XMS REPORT | Clinical Summary ---
Author Author [facility] Organization [facility] Address Unknown Phone Unavailable Care Team Providers Care Meeting Manager Name Role Phone Charles Shanita TALENT ASSISTANT PCP Source Comments Some departments are not documenting in the electronic medical record. If you do not see the information that you expected, contact Release of Information in the Health Information Management department at [phone] for further assistance in locating additional records.[facility] Allergies Active Allergy Reactions Severity Noted Date Comments Losartan UNKNOWN Low 02/21/2018 Gabapentin UNKNOWN Low 02/21/2018 Lisinopril UNKNOWN Low 02/21/2018 Niacin UNKNOWN Low 02/21/2018 Hqfbnln-Fva-Dub Reductase HIVES, SEE COMMENTS, Medium 02/28/2018 Difficulty [...] by mouth Active tablet twice daily. rizatriptan (MAXALT-PITCH WORKER) Dissolve 10 mg by mouth Active 10 [...] kidney disease) stage 3, GFR 30-59 ml/min ([facility]) 03/03/2018 Diabetic polyneuropathy associated with type 1 diabetes mellitus (HCC) 03/03 Autonomic dysfunction 03/03/2018 Orthostatic hypotension 03/03/2018 Diabetic retinopathy without macular edema associated with diabetes 2017 mellitus due to underlying condition ([facility]) Encounters Date Type Specialty Care Team Description 03/27/2018 Telephone Endocrinology, Metabolism Deisy Baeza MD Other (Diabetic Supplies) & Genetics from Last 3 Months Family History Relation [...] 2011 INFLUENZA VACCINE 08/25/2018 HBA1C 08/30/2018 02/28/2018 Results Not on filefrom Last 3 Months
--- OUTSIDE RECORDS SUMMARY | 2018-06-06 09:05 | XMS REPORT ---
Author Author ALAN CARABALLO [facility] Address [address] [place] [address] Care Team Providers Care Restaurant Recruiter Name Role Phone ALAN CARABALLO Unavailable PROBLEMS Type Condition ICD9-CM Code IUB69-BO Code Onset Dates Condition Status SNOMED Code Problem Low back pain M54.5 Active 961241514 Problem Migraine without aura and without status migrainosus, not intractable G43.009 Active 596401188 Problem Other insomnia G47.09 Active 217263273 Problem Type 1 diabetes mellitus with complications E10.8 Active 738109585 Problem Migraine with aura and without status migrainosus, not intractable G43.109 Active 2701812 Problem Dysthymia F34.1 Active 90883879 Problem Chronic kidney disease, stage 4 (severe) N18.4 Active 149101184 Problem Menorrhagia with regular cycle N92.0 Active 563754402 Problem Autonomic neuropathy G90.9 Active 717600742 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 36546909 Problem Proteinuria, unspecified R80.9 Active 86400062 Problem Type 1 diabetes mellitus with hyperglycemia E10.65 Active 36574104 Problem Type 1 diabetes mellitus with hypoglycemia without coma E10.649 Active 02104696 Problem Irritable bowel K58.9 Active 41415477 Problem Anemia, unspecified D64.9 Active 138788985 Problem Chronic kidney disease, unspecified N18.9 Active 707886415 Problem Restless legs syndrome G25.81 Active 051840492 Problem Migraine G43.909 Active 03595019 Problem Type 1 diabetes mellitus without complications E10.9 Active 158304247 ALLERGIES No Information ENCOUNTERS Encounter Location Date Diagnosis [facility] [facility] [address] [facility] [id number] [address] Jun, [facility] [facility] [address] [facility] [id number], [place] [address] May, [facility] [place] [facility] [address], [place] [address] May, Orthostatic hypotension I95.1 ; Shortness of breath R06.02 ; Type 1 diabetes mellitus with complications E10.8 and Leg swelling M79.89 [facility] [place] [facility] [address], [place] [address] May, [facility] [place] [facility] [address] [place] [id number] [place] [address] 56498- 1090 May, Low back pain M54.5 [facility] [place] [facility] [id number] [place] [address] 15786- 7294 Apr, Type 1 diabetes mellitus with hyperglycemia E10.65 [facility] [place] [facility] [id number] [place] [address] 57993- 1825 Apr, Low back pain M54.5 [facility] [place] [facility] [id number] [place] [address] 08733- 6464 Apr, [facility] [place] [facility] [id number] [place] [address] 87287- 8866 Apr, [facility] [place] [facility] [id number] [place] [address] 94731- 2125 March, [facility] [place] [facility] [address], [place] [address] 8602 March, Low back pain M54.5 [facility] [place] [facility] [id number] [place] [address] 85678- 0454 March, [facility] [place] [facility] [address], [place] [address] 0881 Feb, [facility] [place] [facility] [id number] [place] [address] 47952- 8646 Feb, Low back pain M54.5 [facility] [place] [facility] [address], [place] [address] 9179 Jan, Restless legs syndrome G25.81 [facility] [id number] [place] [address] 10656- 7717 Jan, Low back pain M54.5 [facility] [address] 67903- 3779 Jan, [facility] [facility] [address] 43808- 8762 Jan, Type 1 diabetes mellitus without complications E10.9 ; Low back pain M54.5 ; Cough R05 ; Diarrhea, unspecified type R19.7 ; Migraine without aura and without status migrainosus, not intractable G43.009 and Uses control Z30.9 [facility] [facility] [address] 04330- 3731 Dec, Low back pain M54.5 [facility] [address] 00949- 3859 Dec, [facility] [address] 21288- 2745 Nov, Well woman exam Z01.419 ; Menorrhagia with regular cycle N92.0 ; Vaginal dryness N89.8 and Migraine with aura and without status migrainosus, not intractable G43.109 [facility] [address] [id number] [place] [address] 92847- 1056 Nov, [facility] [address] 80143- 3767 Nov, Low back pain M54.5 [facility] [address] [id number] [place] [address] 27641- 5257 Oct, Low back pain M54.5 [facility] [facility] [address] 82303- 9293 Oct, Migraine without aura and without status migrainosus, not intractable G43.009 [facility] [address] [id number] [place] [address] 97760- 4228 Sep, Low back pain M54.5 [facility] [place] [facility] [id number] [place] [address] 21175- 1381 Sep, [facility] [place] [facility] [id number] [place] [address] 10373- 7295 Sep, Migraine without aura and without status migrainosus, not intractable G43.009 [facility] [place] [facility] [id number] [place] [address] 18353- 2179 Sep, Type 1 diabetes mellitus with hypoglycemia without coma E10.649 ; Anemia D64.9 ; Migraine without aura and without status migrainosus, not intractable G43.009 ; Chronic kidney disease, unspecified N18.9 ; Autonomic neuropathy G90.9 and Postural hypotension I95.1 [facility] [place] [facility] [id number] [place] [address] 13570- 9723 Sep, Low back pain M54.5 [facility] [place] [facility] [id number] [place] [address] 17916- 0288 Aug, Low back pain M54.5 [facility] [place] [facility] [id number] [place] [address] 13204- 2886 Jul, [facility] [place] [facility] [id number] [place] [address] 33812- 7825 Jul, Low back pain M54.5 [facility] [place] [facility] [id number] [place] [address] 78018- 7000 Jun, [facility] [place] [facility] [id number] [place] [address] 82519- 1780 Jun, Low back pain M54.5 [facility] [place] [facility] [id number] [place] [address] 35453- 1307 Jun, Migraine without aura and without status migrainosus, not intractable G43.009 [facility] [place] [facility] [id number] [place] [address] 85631- 3437 Jun, Type 1 diabetes mellitus with hyperglycemia E10.65 ; Dysthymia F34.1 and Migraine without aura and without status migrainosus, not intractable G43.009 [facility] [facility] [address] [id number] [address] 9246 Jun, [facility] [facility] [id number] [place] [address] 06236- 8989 May, Type 1 diabetes mellitus with hyperglycemia E10.65 [facility] [place] [facility] [id number] [place] [address] 83915- 4913 May, Low back pain M54.5 [facility] [facility] [id number] [place] [address] 87529- 9049 May, Type 1 diabetes mellitus with hyperglycemia E10.65 [facility] [place] [facility] [id number] [place] [address] 50827- 0827 Apr, [facility] [place] [facility] [id number] [place] [address] 35312- 3843 Apr, Chronic kidney disease, stage 4 (severe) N18.4 [facility] [facility] [id number] [place] [address] 37066- 0203 Apr, Low back pain M54.5 [facility] [place] [facility] [id number] [place] [address] 11277- 8312 March, [facility] [place] [facility] [id number] [place] [address] 08928- 5635 March, Low back pain M54.5 [facility] [facility] [id number] [place] [address] 17084- 9839 Feb, [facility] [facility] [id number] [place] [address] 19403- 3036 Feb, [facility] [facility] [id number] [place] [address] 40100- 3616 Feb, Low back pain M54.5 [facility] [facility] [id number] [place] [address] 90607- 5260 Feb, Low back pain M54.5 [facility] [facility] [id number] [place] [address] 01689- 3612 Feb, Migraine without aura and without status migrainosus, not intractable G43.009 [facility] [facility] [id number] [place] [address] 45174- 8905 Feb, [facility] [facility] [address] [address] [id number] [place] [address] 51409- 6495 Jan, Low back pain M54.5 [facility] [facility] [id number] [place] [address] 40875- 4730 Jan, Type 1 diabetes mellitus without complications E10.9 ; Anemia D64.9 ; Chronic kidney disease, unspecified N18.9 ; Migraine without aura and without status migrainosus, not intractable G43.009 and Other insomnia G47.09 [place] [id number] [place] [address] 82209- 3139 Jan, [facility] [facility] [id number] [place] [address] 83663- 6343 Dec, Low back pain M54.5 [facility] [id number] [place] [address] 80976- 1865 Dec, [place] [id number] [place] [address] 59581- 4836 Dec, [facility] [id number] [place] [address] 04212- 7725 08 Dec, 2016 Shortness of breath R06.02 ; Type 1 diabetes mellitus without complications E10.9 and Leg swelling M79.89 [place] [id number] [place] [address] 93919- 7379 Nov, Low back pain M54.5 [facility] [id number] [place] [address] 41347- 8092 Nov, Viral syndrome B34.9 [facility] [id number] [place] [address] 53665- 4359 Oct, Low back pain M54.5 [facility] [facility] [id number] [place] [address] 43242- 9957 Oct, [facility] [facility] [id number] [place] [address] 78148- 9514 Oct, Low back pain M54.5 [facility] [facility] [id number] [place] [address] 97711- 9615 Sep, [facility] [facility] [id number] [place] [address] 89349- 5960 Sep, Fatigue, unspecified type R53.83 ; Type 1 diabetes mellitus without complications E10.9 and Anemia D64.9 [facility] [id number] [place] [address] 01606- 2787 Sep, Low back pain M54.5 [facility] [facility] [id number] [place] [address] 60316- 0712 Sep, Type 1 diabetes mellitus with hyperglycemia E10.65 [facility] [facility] [id number] [place] [address] 80119- 8312 Aug, Type 1 diabetes mellitus without complications E10.9 [facility] [id number] [place] [address] 08214- 1591 Aug, [facility] [facility] [id number] [place] [address] 36918- 6189 Aug, [facility] [facility] [id number] [place] [address] 28991- 6818 Jul, [facility] [facility] [id number] [place] [address] 22429- 8128 14 Jul, 2016 Low back pain M54.5 [facility] [facility] [id number] [place] [address] 88123- 7914 12 Jul, 2016 Hyperkalemia, diminished renal excretion E87.5 [facility] [id number] [place] [address] 67691- 0967 Jul, Hyperkalemia, diminished renal excretion E87.5 [facility] [facility] [id number] [place] [address] 10725- 9824 Jun, [facility] [id number] [place] [address] 75421- 2121 Jun, Low back pain M54.5 [facility] [address] 48958- 9780 Jun, Anemia D64.9 ; Autonomic neuropathy G90.9 and Postural hypotension I95.1 [facility] [id number] [place] [address] 38574- 3643 Jun, [facility] [id number] [place] [address] 80861- 3449 May, Type 1 diabetes mellitus with complications E10.8 and Anemia D64.9 [facility] [id number] [place] [address] 32237- 3122 May, Low back pain M54.5 [facility] [id number] [place] [address] 62199- 6333 Apr, [facility] [facility] [id number] [place] [address] 69124- 1110 Apr, Low back pain M54.5 [facility] [facility] [id number] [place] [address] 15608- 2270 Apr, [facility] [facility] [id number] [place] [address] 49672- 9997 Apr, [facility] [facility] [id number] [place] [address] 65285- 7376 March, Low back pain M54.5 and Other chronic pain G89.29 [facility] [facility] [id number] [place] [address] 41918- 7629 March, Type 1 diabetes mellitus without complications E10.9 [facility] [facility] [address] 13503- 1229 March, [facility] [facility] [id number] [place] [address] 02249- 0759 March, [facility] [facility] [address] [id number] [place] [address] 31820- 5988 Feb, [facility] [facility] [address] [id number] [place] [address] 55168- 0431 Feb, Type 1 diabetes mellitus without complications E10.9 [facility] [facility] [id number] [place] [address] 98588- 7877 Feb, Trochanteric bursitis, right hip M70.61 [facility] [facility] [id number] [place] [address] 14769- 8724 Jan, [facility] [facility] [id number] [place] [address] 91834- 0463 Jan, [facility] [facility] [address] [id number] [place] [address] 24385- 3388 Dec, Type 1 diabetes mellitus with complications E10.8 [facility] [facility] [address] [address] [id number] [place] [address] 36006- 1640 Dec, [facility] [facility] [address] [address] [id number] [place] [address] 64042- 3313 Dec, Anemia D64.9 ; Autonomic neuropathy G90.9 and Postural hypotension I95.1 [facility] [facility] [address] [address] [id number] [place] [address] 17314- 2918 Dec, [facility] [facility] [id number] [place] [address] 86456- 7036 Nov, Sore throat J02.9 [facility] [facility] [id number] [place] [address] 21505- 4274 Nov, Type 1 diabetes mellitus with complications E10.8 [facility] [facility] [id number] [place] [address] 40875- 4513 Nov, 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 ; Proteinuria, unspecified R80.9 and Chronic kidney disease, unspecified N18.9 [facility] [facility] [id number] [place] [address] 51582- 0308 Nov, [facility] [facility] [id number] [place] [address] 42949- 4107 Nov, Trochanteric bursitis, right hip M70.61 [facility] [facility] [id number] [place] [address] 40691- 8133 Nov, [facility] [facility] [id number] [place] [address] 26003- 0924 Oct, [facility] [facility] [id number] [place] [address] 71864- 4193 Oct, [facility] [facility] [id number] [place] [address] 90202- 9397 Oct, [facility] [facility] [id number] [place] [address] 04222- 9859 Sep, [facility] [facility] [id number] [place] [address] 00589- 1593 Sep, [facility] [facility] [id number] [place] [address] 04381- 3556 Sep, Type 2 diabetes mellitus with complication E11.8 and Right hip pain M25.551 [facility] [facility] [id number] [place] [address] 26586- 3129 Sep, [facility] [facility] [id number] [place] [address] 35761- 8933 Aug, [facility] [facility] [id number] [place] [address] 25775- 6880 Aug, [facility] [facility] [id number] [place] [address] 56616- 8639 Aug, [facility] [facility] [id number] [place] [address] 05076- 9634 Aug, Type 1 diabetes mellitus without complications E10.9 [facility] [facility] [address], [place] [address]- 0428 Jul, [facility] [facility] [id number] [place] [address] 703357- 8181 Jul, [facility] [facility] [address], [place] [address]- 1928 Jul, [facility] [facility] [id number] [place] [address] 484947- 2299 Jun, [facility] [facility] [id number] [place] [address] 42518- 9040 Jun, [facility] [facility] [id number] [place] [address] 91558- 6561 Jun, [facility] [place] [facility] [id number] [place] [address] 32710- 7227 Jun, [facility] [place] [facility] [id number] [place] [address] 63371- 3779 Jun, [facility] [place] [facility] [id number] [place] [address] 45562- 7206 Jun, Diabetes mellitus without mention of complication, type I [ juvenile type], not stated as uncontrolled 250.01 [facility] [facility] [address], [place] [address]- 1878 May, [facility] [place] [facility] [id number] [place] [address] 37894- 8210 May, [facility] [place] [facility] [address], [place] [address]- 8607 May, [facility] [place] [facility] [id number] [place] [address] 46172- 1740 May, Autonomic neuropathy 337.9 ; Postural hypotension 458.0 and Anemia 285.9 [facility] [facility] [address] [address]- 4255 May, [facility] [place] [facility] [address] [id number] [place] [address]- 8569 Apr, [facility] [place] [facility] [address] [id number] [place] [address]- 5513 Apr, [facility] [place] [facility] [address] [id number] [place] [address]- 0974 Apr, [facility] [place] [facility] [address] [id number] [place] [address]- 7201 Apr, [facility] [place] [facility] [address] [id number] [place] [address]- 6315 Apr, [facility] [place] [facility] [address] [id number] [place] [address]- 4442 March, [facility] [place] [facility] [address] [id number] [place] [address]- 1924 March, [facility] [place] [facility] [address] [id number] [place] [address]- 7694 March, [facility] [place] [facility] [address] [id number] [place] [address]- 7720 March, [facility] [place] [facility] [address] [id number] [place] [address]- 2309 March, [facility] [place] [facility] [address] [id number] [place] [address]- 4013 Feb, [facility] [place] [facility] [address] [id number] [place] [address]- 8429 14 Feb, 2015 [facility] [place] [facility] [address] [id number] [place] [address]- 7693 Feb, [facility] [place] [facility] [address] [id number] [place] 8833 30 Jan, 2015 [facility] [place] [facility] [address] [id number] [place] [address]- 9775 24 Jan, 2015 [facility] [place] [facility] [address] [id number] [place] [address]- 4626 Jan, [facility] [place] [facility] [address] [id number] [place] [address]- 2235 Jan, [facility] [place] [facility] [address] [id number] [place] [address]- 9680 Jan, [facility] [place] [facility] [address] [id number] [place] 4983 Jan, [facility] [place] [facility] [address] [id number] [place] [address] Jan, [facility] [place] [facility] [address] [id number] [place] [address] Jan, [facility] [place] [facility] [address] [id number] [place] [address] Jan, [facility] [place] [facility] [address] [id number] [place] [address] Jan, [facility] [place] [facility] [address] [id number] [place] [address] Jan, [facility] [place] [facility] [address] [id number] [place] [address] Jan, [facility] [place] [facility] [address] [id number] [place] [address] Jan, [facility] [place] [facility] [address] [id number] [place] [address] Dec, [facility] [place] [facility] [address] [id number] [place] [address] Dec, [facility] [place] [facility] [address] [id number] [place] [address] Dec, 2014 [facility] [place] [facility] [address] [id number] [place] [address] Dec, 2014 [facility] [place] [facility] [address] [id number] [place] [address] 16 Dec, 2014 [facility] [place] [facility] [address] [id number] [place] [address] 16 Dec, 2014 [facility] [place] [facility] [address] [id number] [place] [address] Dec, [facility] [place] [facility] [address] [id number] [place] [address] Dec, [facility] [place] [facility] [address] [id number] [place] [address] Nov, [facility] [place] [facility] [address] [id number] [place] [address] Nov, [facility] [place] [facility] [address] [id number] [place] [address] Nov, [facility] [place] [facility] [address] [id number] [place] [address] Nov, [facility] [place] [facility] [address] [id number] [place] [address] Nov, [facility] [place] [facility] [address] [id number] [place] [address] Nov, [facility] [place] [facility] [address] [id number] [place] [address] Nov, [facility] [place] [facility] [address] [id number] [place] [address] Nov, [facility] [place] [facility] [address] [id number] [place] [address] Nov, [facility] [place] [facility] [address] [id number] [place] [address] Oct, [facility] [place] [facility] [address] [id number] [place] [address] Oct, [facility] [place] [facility] [address] [id number] [place] [address] Oct, [facility] [place] [facility] [address] [id number] [place] [address] Oct, [facility] [place] [facility] [address] [id number] [place] [address] Oct, [facility] [place] [facility] [address] [id number] [place] [address] Oct, [facility] [place] [facility] [address] [id number] [place] [address] Oct, [facility] [place] [facility] [address] [id number] [place] [address] Oct, [facility] [place] [facility] [address] [id number] [place] [address] Oct, [facility] [place] [facility] [address] [id number] [place] [address] Oct, [facility] [place] [facility] [address] [id number] [place] [address] Oct, [facility] [place] [facility] [address] [id number] [place] [address] Oct, [facility] [place] [facility] [address] [id number] [place] [address] Oct, [facility] [place] [facility] [address] [id number] [place] [address] Oct, [facility] [place] [facility] [address] [id number], [place] [address] Sep, [facility] [place] [facility] [address] [id number], [place] [address] Sep, [facility] [place] [facility] [address] [id number] [place] [address] Sep, [facility] [place] [facility] [address] [id number], [place] [address] Sep, [facility] [place] [facility] [address] [id number] [place] [address] Aug, [facility] [place] [facility] [address] [id number] [place] [address] Aug, [facility] [place] [facility] [address] [id number] [place] [address] 3[address] Aug, [facility] [place] [facility] [address] [id number] [place] [address] 8056 Aug, [facility] [place] [facility] [address] [id number] [place] [address] 3520 Aug, [facility] [place] [facility] [address] [id number] [place] [address] 7428 Aug, [facility] [place] [facility] [address] [id number] [place] [address] 7395 Aug, [facility] [place] [facility] [address] [id number] [place] [address] Aug, [facility] [place] [facility] [address] [id number] [place] [address] 2018 Aug, [facility] [place] [facility] [address] [id number] [place] [address] 1750 Aug, [facility] [place] [facility] [address] [id number] [place] [address]- 0039 29 Jul, 2013 [facility] [place] [facility] [address] [id number] [place] [address] 6377 29 Sep, 2013 [facility] [place] [facility] [address] [id number] [place] [address]- 2546 29 Sep, 2013 [facility] [place] [facility] [address] [id number] [place] [address]- 2545 29 Sep, 2013 [facility] [place] [facility] [address] [id number] [place] [address] 2549 22 Sep, 2013 [facility] [place] [facility] [address] [id number] [place] [address]- 2545 22 Jul, 2013 [facility] [place] [facility] [address] [id number] [place] [address]- 0677 19 Sep, 2013 [facility] [place] [facility] [address] [id number] [place] [address]- 5643 19 Jul, 2013 [facility] [place] [facility] [address] [id number] [place] [address]- 2183 11 Jul, 2013 [facility] [place] [facility] [address] [id number] [place] [address]- 2776 11 Jul, 2013 [facility] [place] [facility] [address] [id number] [place] [address]- 7449 10 Jul, 2013 [facility] [place] [facility] [address] [id number] [place] [address]- 0667 10 Jul, 2013 [facility] [place] [facility] [address] [id number] [place] [address]- 4342 08 Jul, 2013 [facility] [place] [facility] [address] [id number] [place] [address]- 9682 08 Jul, 2013 [facility] [place] [facility] [address] [id number] [place] [address]- 7216 Jul, 2013 [facility] [place] [facility] [address] [id number] [place] [address]- 2857 Jul, 2013 [facility] [place] [facility] [address] [id number] [place] [address]- 0059 02 Jul, 2013 [facility] [place] [facility] [address] [id number] [place] [address]- 3353 Jul, 2013 [facility] [place] [facility] [address] [id number] [place] [address]- 6079 Jun, [facility] [place] [facility] [address] [id number] [place] [address]- 8383 Jun, [facility] [place] [facility] [address] [id number] [place] [address]- 2602 Jun, [facility] [place] [facility] [address] [id number] [place] [address]- 8805 Jun, [facility] [place] [facility] [address] [id number] [place] [address]- 9563 Jun, [facility] [place] [facility] [address] [id number] [place] [address]- 3806 Jun, [facility] [place] [facility] [address] [id number] [place] [address]- 0430 Jun, [facility] [place] [facility] [address] [id number] [place] [address]- 3958 Jun, [facility] [place] [facility] [address] [id number] [place] [address]- 8168 Jun, [facility] [place] [facility] [address] [id number] [place] [address]- 2020 Jun, [facility] [place] [facility] [address] [id number] [place] [address]- 5834 Jun, [facility] [place] [facility] [address] [id number] [place] [address]- 6792 Jun, [facility] [place] [facility] [address] [id number] [place] [address]- 2105 Jun, [facility] [place] [facility] [address] [id number] [place] [address]- 2183 Jun, [facility] [place] [facility] [address] [id number] [place] [address]- 4887 Jun, [facility] [place] [facility] [address] [id number] [place] [address]- 3593 May, [facility] [place] [facility] [address] [id number] [place] [address]- 4098 May, [facility] [place] [facility] [address] [id number] [place] [address]- 0594 May, [facility] [place] [facility] [address] [id number] [place] [address]- 9506 May, [facility] [place] [facility] [address] [id number] [place] [address]- 7751 May, [facility] [place] [facility] [address] [id number] [place] [address]- 8234 May, [facility] [place] [facility] [address] [id number] [place] [address]- 4688 May, [facility] [place] [facility] [address] [id number] [place] [address]- 0092 May, [facility] [place] [facility] [address] [id number] [place] [address]- 7861 Apr, [facility] [place] [facility] [address] [id number] [place] [address]- 5288 Apr, [facility] [place] [facility] [address] [id number] [place] [address]- 0396 Apr, [facility] [place] [facility] [address] [id number] [place] [address]- 0926 Apr, [facility] [place] [facility] [address] [id number] [place] [address]- 6958 Apr, [facility] [place] [facility] [address] [id number] [place] [address]- 2496 Apr, [facility] [place] [facility] [address] [id number] [place] [address]- 2091 Apr, [facility] [place] [facility] [address] [id number] [place] [address]- 7934 Apr, [facility] [place] [facility] [address] [id number] [place] [address]- 5803 Apr, [facility] [place] [facility] [address] [id number] [place] [address]- 8376 Apr, [facility] [place] [facility] [address] [id number] [place] [address]- 8652 Apr, [facility] [place] [facility] [address] [id number] [place] [address]- 3225 Apr, [facility] [place] [facility] [address] [id number] [place] [address]- 4693 Apr, [facility] [place] [facility] [address] [id number] [place] [address]- 7048 Apr, [facility] [place] [facility] [address] [id number] [place] [address]- 6326 Apr, [facility] [place] [facility] [address] [id number] [place] [address]- 7587 Apr, [facility] [place] [facility] [address] [id number] [place] [address]- 7610 Apr, [facility] [place] [facility] [address] [id number] [place] [address]- 1057 Apr, [facility] [place] [facility] [address] [id number] [place] [address]- 2303 March, [facility] [place] [facility] [address] [id number] [place] [address]- 7067 March, [facility] [place] [facility] [address] [id number] [place] [address]- 1382 March, [facility] [place] [facility] [address] [id number] [place] [address]- 0970 March, [facility] [place] [facility] [address] [id number] [place] [address]- 5620 March, [facility] [place] [facility] [address] [id number] [place] [address]- 7910 March, [facility] [place] [facility] [address] [id number] [place] [address]- 8983 March, [facility] [place] [facility] [address] [id number] [place] [address]- 1065 March, [facility] [place] [facility] [address] [id number] [place] [address]- 7686 March, [facility] [place] [facility] [address] [id number] [place] [address]- 6460 Feb, [facility] [place] [facility] [address] [id number] [place] [address]- 6101 Feb, [facility] [place] [facility] [address] [id number] [place] [address]- 6236 Feb, [facility] [place] [facility] [address] [id number] [place] [address]- 3103 Feb, [facility] [place] [facility] [address] [id number] [place] [address]- 2661 Feb, [facility] [place] [facility] [address] [id number] [place] [address]- 3132 Feb, [facility] [place] [facility] [address] [id number] [place] [address]- 1692 Feb, [facility] [place] [facility] [address] [id number] [place] [address]- 5275 Feb, [facility] [place] [facility] [address] [id number] [place] [address]- 3334 Feb, [facility] [place] [facility] [address] [id number] [place] [address]- 2312 Feb, [facility] [place] [facility] [address] [id number] [place] [address]- 0143 Feb, [facility] [place] [facility] [address] [id number] [place] [address]- 7296 Feb, [facility] [place] [facility] [address] [id number] [place] [address]- 2423 Feb, [facility] [place] [facility] [address] [id number] [place] [address]- 6635 Jan, [facility] [place] [facility] [address] [id number] [place] [address]- 9953 Jan, [facility] [place] [facility] [address] [id number] [place] [address]- 4370 Jan, [facility] [place] [facility] [address] [id number] [place] [address]- 5128 Jan, [facility] [place] [facility] [address] [id number] [place] [address]- 5181 Jan, [facility] [place] [facility] [address] [id number] [place] [address]- 8036 Jan, [facility] [place] [facility] [address] [id number] [place] [address]- 9991 Jan, [facility] [place] [facility] [address] [id number] [place] [address]- 3917 Jan, [facility] [place] [facility] [address] [id number] [place] [address]- 4258 Dec, [facility] [place] [facility] [address] [id number] [place] [address]- 5722 Dec, [facility] [place] [facility] [address] [id number] [place] [address]- 0184 Dec, [facility] [place] [facility] [address] [id number] [place] [address]- 7631 Dec, [facility] [place] [facility] [address] [id number] [place] [address]- 2001 Dec, [facility] [place] [facility] [address] [id number] [place] [address]- 3683 Dec, [facility] [place] [facility] [address] [id number] [place] [address]- 5474 Dec, [facility] [place] [facility] [address] [id number] [place] [address]- 1857 Dec, [facility] [place] [facility] [address] [id number] [place] [address]- 8247 Dec, [facility] [place] [facility] [address] [id number] [place] [address]- 5162 Dec, [facility] [place] [facility] [address] [id number] [place] [address]- 5295 Nov, [facility] [place] [facility] [address] [id number] [place] [address]- 8517 Nov, [facility] [address] [id number] [place] [address]- 2400 Nov, [facility] [place] [facility] [address] [id number] [place] [address]- 2117 Nov, [facility] [address] [id number] [place] [address]- 1009 Nov, [facility] [place] [facility] [address] [id number] [place] [address]- 0402 Nov, [facility] [address] [id number] [place] [address]- 7719 Nov, [facility] [place] [facility] [address] [id number] [place] [address]- 2638 Nov, [facility] [address] [id number] [place] [address]- 4014 Nov, [facility] [place] [facility] [address] [id number] [place] [address]- 3470 Nov, [facility] [address] [id number] [place] [address]- 9492 Oct, [facility] [address] [id number] [place] [address]- 8430 Oct, [facility] [place] [facility] [address] [id number] [place] [address]- 2497 18 Oct, 2013 [facility] [place] [facility] [address] [id number] [place] [address]- 0510 18 Oct, 2013 [facility] [place] [facility] [address] [id number] [place] [address]- 0609 17 Oct, 2013 [facility] [place] [facility] [address] [id number] [place] [address]- 1907 17 Oct, 2013 [facility] [place] [facility] [address] [id number] [place] [address]- 4603 16 Oct, 2013 [facility] [place] [facility] [address] [id number] [place] [address]- 3587 16 Oct, 2013 [facility] [place] [facility] [address] [id number] [place] [address]- 0422 Oct, [facility] [place] [facility] [address] [id number] [place] [address]- 1783 Oct, [facility] [place] [facility] [address] [id number] [place] [address]- 4150 Oct, [facility] [place] [facility] [address] [id number] [place] [address]- 8486 Oct, [facility] [place] [facility] [address] [id number] [place] [address]- 3443 Oct, [facility] [place] [facility] [address] [id number] [place] [address]- 5012 Oct, [facility] [place] [facility] [address] [id number] [place] [address]- 0275 Sep, [facility] [place] [facility] [address] [id number] [place] [address]- 2995 Sep, [facility] [place] [facility] [address] [id number] [place] [address]- 4285 Sep, [facility] [place] [facility] [address] [id number] [place] [address]- 6546 18 Sep, 2013 [facility] [place] [facility] [address] [id number] [place] [address]- 9995 Sep, [facility] [place] [facility] [address] [id number] [place] [address]- 4430 Sep, [facility] [place] [facility] [address] [id number] [place] [address]- 0483 Aug, [facility] [place] [facility] [address] [id number] [place] [address]- 3328 31 Aug, 2013 [facility] [place] [facility] [address] [id number], [place] [address]- 7074 17 Aug, 2013 [facility] [place] [facility] [address] [id number] [place] [address]- 9897 17 Aug, 2013 [facility] [place] [facility] [address] [id number] [place] [address]- 1114 10 Aug, 2013 [facility] [place] [facility] [address] [id number] [place] [address]- 6859 10 Aug, 2013 [facility] [place] [facility] [address] [id number] [place] [address]- 5611 07 Aug, 2013 [facility] [place] [facility] [address] [id number] [place] [address]- 4102 02 Aug, 2013 [facility] [place] [facility] [address] [id number] [place] [address]- 6538 02 Aug, 2013 [facility] [place] [facility] [address] [id number] [place] [address]- 7904 25 Jul, 2012 [facility] [place] [facility] [address] [id number] [place] [address]- 4525 23 Sep, 2012 [facility] [place] [facility] [address] [id number], [place] [address]- 6248 21 Sep, 2012 [facility] [place] [facility] [address] [id number] [place] [address]- 3086 20 Sep, 2012 [facility] [place] [facility] [address] [id number], [place] [address]- 0410 18 Sep, 2012 [facility] [place] [facility] [address] [id number], [place] [address]- 9886 17 Sep, 2012 [facility] [place] [facility] [address] [id number] [place] [address]- 9688 16 Sep, 2012 [facility] [place] [facility] [address] [id number], [place] [address]- 0293 11 Sep, 2012 [facility] [place] [facility] [address] [id number], [place] [address]- 2543 09 Sep, 2012 [facility] [place] [facility] [address] [id number] [place] [address]- 0257 Jul, 2012 [facility] [address] [id number] [place] [address]- 0739 Jul, [facility] [address] [id number] [place] [address]- 2546 Jul, [facility] [address] [id number] [place] [address]- 0005 Jun, [facility] [address] [id number] [place] [address]- 9862 Jun, [facility] [address] [id number] [place] [address]- 1657 Jun, [facility] [address] [id number] [place] [address]- 2193 Jun, [facility] [address] [id number] [place] [address]- 7466 Jun, [facility] [address] [id number] [place] [address]- 3223 Jun, [facility] [address] [id number] [place] [address]- 5776 Jun, [facility] [address] [id number] [place] [address]- 2808 Jun, [facility] [place] [facility] [address] [id number] [place] [address]- 0722 Jun, [facility] [address] [id number] [place] [address]- 9660 May, [facility] [place] [facility] [address] [id number] [place] [address]- 8788 May, [facility] [place] [facility] [address] [id number] [place] [address]- 8140 May, [facility] [place] [facility] [address] [id number] [place] [address]- 7683 May, [facility] [place] [facility] [address] [id number] [place] [address]- 3438 May, [facility] [place] [facility] [address] [id number] [place] [address]- 8816 May, [facility] [place] [facility] [address] [id number] [place] [address]- 3706 May, [facility] [place] [facility] [address] [id number] [place] [address]- 8146 March, [facility] [place] [facility] [address] [id number] [place] [address]- 9267 March, [facility] [place] [facility] [address] [id number] [place] [address]- 6026 March, [facility] [place] [facility] [address] [id number] [place] [address]- 9916 Dec, [facility] [place] [facility] [address] [id number] [place] [address]- 2007 Nov, [facility] [place] [facility] [address] [id number] [place] [address] Aug, [facility] [place] [facility] [address] [id number] [place] [address] Aug, [facility] [place] [facility] [address] [id number] [place] [address] Jun, [facility] [place] [facility] [address] [id number] [place] [address] Jun, [facility] [place] [facility] [address] [id number] [place] [address] Jun, [facility] [place] [facility] [address] [id number] [place] [address] Jun, [facility] [place] [facility] [address] [id number] [place] [address] May, [facility] [place] [facility] [address] [id number] [place] [address] May, [facility] [address] [id number] [place] [address] May, [facility] [place] [facility] [address] [id number] [place] [address] May, [facility] [place] [facility] [address] [id number] [place] [address] May, [facility] [place] [facility] [address] [id number] [place] [address] May, [facility] [place] [facility] [address] [id number] [place] [address] May, [facility] [place] [facility] [address] [id number] [place] [address] Apr, [facility] [address] [id number] [place] [address] Apr, [facility] [place] [facility] [address] [id number] [place] [address] Apr, [facility] [place] [facility] [address] [id number] [place] [address] Apr, [facility] [place] [facility] [address] [id number] [place] [address] March, [facility] [place] [facility] [address] [id number] [place] [address] March, [facility] [place] [facility] [address] [id number] [place] [address] March, [facility] [place] [facility] [address] [id number] [place] [address] March, [facility] [place] [facility] [address] [id number] [place] [address] March, [facility] [place] [facility] [address] [id number] [place] [address] March, [facility] [place] [facility] [address] [id number] [place] [address] March, [facility] [place] [facility] [address] [id number] [place] [address] March, [facility] [place] [facility] [address] [id number] [place] [address] March, [facility] [place] [facility] [address] [id number] [place] [address] Feb, [facility] [place] [facility] [address] [id number] [place] [address] Feb, [facility] [place] [facility] [address] [id number] [place] [address] Jan, [facility] [place] [facility] [address] [id number] [place] [address] Jan, [facility] [place] [facility] [address] [id number] [place] [address] 16 Jan, 2012 [facility] [place] [facility] [address] [id number] [place] [address] 05 Jan, 2012 [facility] [place] [facility] [address] [id number] [place] [address] Dec, [facility] [place] [facility] [address] [id number] [place] [address] 16 Dec, 2011 [facility] [place] [facility] [address] [id number] [place] [address] 15 Dec, 2011 [facility] [place] [facility] [address] [id number] [place] [address] Nov, [facility] [place] [facility] [address] [id number] [place] [address] Oct, [facility] [place] [facility] [address] [id number] [place] [address] Oct, [facility] [place] [facility] [address] [id number], [place] [address] 15 Oct, 2011 [facility] [place] [facility] [address] [id number] [place] [address] 14 Oct, 2011 [facility] [place] [facility] [address] [id number] [place] [address] 14 Oct, 2011 [facility] [place] [facility] [address] [id number] [place] [address] 12 Oct, 2011 [facility] [place] [facility] [address] [id number] [place] [address] 09 Oct, 2011 [facility] [place] [facility] [address] [id number] [place] [address] Oct, [facility] [place] [facility] [address] [id number] [place] [address] 22 Sep, 2011 [facility] [place] [facility] [address] [id number] [place] [address] 17 Sep, 2011 [facility] [place] [facility] [address] [id number] [place] [address] 14 Sep, 2011 [facility] [place] [facility] [address] [id number], [place] [address] Sep, [facility] [place] [facility] [address] [id number] [place] [address] Sep, [facility] [place] [facility] [address] [id number], [place] [address] Sep, [facility] [place] [facility] [address] [id number], [place] [address] 08 Sep, 2011 [facility] [place] [facility] [address] [id number] [place] [address] Sep, [facility] [place] [facility] [address] [id number], [place] [address] Sep, [facility] [place] [facility] [address] [id number] [place] [address] 24 Aug, 2011 [facility] [place] [facility] [address] [facility] [id number] [place] [address] 15 Jul, 2011 [facility] [place] [facility] [address] [facility] [id number], [place] [address] Oct, [facility] [place] [facility] [address] [facility] [id number] [address] Oct, [facility] [place] [facility] [address] [facility] [id number], [place] [address] Oct, IMMUNIZATIONS No Known Immunizations SOCIAL HISTORY Never Assessed REASON FOR VISIT medication change PLAN OF CARE VITAL SIGNS MEDICATIONS Unknown Medications RESULTS No Results PROCEDURES No Known procedures INSTRUCTIONS MEDICATIONS ADMINISTERED No Known Medications MEDICAL (GENERAL) HISTORY Type Description Date Medical History Diabetic Surgical History Bilat tubal ligation Hospitalization History Diabetic multiple hospitalizations
--- OUTSIDE RECORDS SUMMARY | 2018-06-06 09:07 | XMS REPORT ---
Author Author ALAN CARABALLO [facility] Address [address] [place] [address] Care Team Providers Care Package Line Relief Operator Name Role Phone ALAN CARABALLO Unavailable PROBLEMS Type Condition ICD9-CM Code DSO32-OA Code Onset Dates Condition Status SNOMED Code Problem Type 1 diabetes mellitus without complications E10.9 Active 535309565 Problem Other insomnia G47.09 Active 457073352 Problem Low back pain M54.5 Active 605122660 Problem Migraine with aura and without status migrainosus, not intractable G43.109 Active 7631826 Problem Menorrhagia with regular cycle N92.0 Active 342265743 Problem Chronic kidney disease, stage 4 (severe) N18.4 Active 610680700 Problem Migraine without aura and without status migrainosus, not intractable G43.009 Active 100438805 Problem Autonomic neuropathy G90.9 Active 933645746 Problem Dysthymia F34.1 Active 34490067 Problem Type 1 diabetes mellitus with hypoglycemia without coma E10.649 Active 10403255 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 51557293 Problem Type 1 diabetes mellitus with hyperglycemia E10.65 Active 45417191 Problem Migraine G43.909 Active 81751397 Problem Irritable bowel K58.9 Active 63949098 Problem Proteinuria, unspecified R80.9 Active 91993210 Problem Anemia, unspecified D64.9 Active 871538530 Problem Chronic kidney disease, unspecified N18.9 Active 828713017 Problem Restless legs syndrome G25.81 Active 094797201 ALLERGIES No Information ENCOUNTERS Encounter Location Date Diagnosis [facility] [address] [facility] [id number], [place] [address] May, [facility] [address] [facility] [id number], [place] [address] 2519 Apr, Low back pain M54.5 [facility] [address], [place] [address] 6[address] Apr, [facility] [id number] [place] [address] 19346- 8893 Apr, [facility] [id number] [place] [address] 54573- 8811 March, [facility] [id number] [place] [address] 36771- 8109 March, Low back pain M54.5 [facility] [id number] [place] [address] 10526- 7072 March, [facility] [id number] [place] [address] 24297- 5306 Feb, [facility] [id number] [place] [address] 40050- 8236 Feb, Low back pain M54.5 [facility] [id number] [place] [address] 50476- 0918 Jan, Restless legs syndrome G25.81 [facility] [id number] [place] [address] 78100- 8282 Jan, Low back pain M54.5 [facility] [id number] [place] [address] 67033- 8825 Jan, [facility] [id number] [place] [address] 75008- 6307 Jan, Type 1 diabetes mellitus without complications E10.9 ; Low back pain M54.5 ; Cough R05 ; Diarrhea, unspecified type R19.7 ; Migraine without aura and without status migrainosus, not intractable G43.009 and Uses control Z30.9 [facility] [address], [place] [address] 1686 Dec, Low back pain M54.5 [facility] [id number] [place] [address] 11970- 7836 Dec, [facility] [id number] [place] [address] 40535- 7478 Nov, Well woman exam Z01.419 ; Menorrhagia with regular cycle N92.0 ; Vaginal dryness N89.8 and Migraine with aura and without status migrainosus, not intractable G43.109 [facility] [address] [address]39- 6040 Nov, [facility] [address] 18436- 9262 Nov, Low back pain M54.5 [facility] [address] 33303- 9527 Oct, Low back pain M54.5 [facility] [address] 09254- 2758 Oct, Migraine without aura and without status migrainosus, not intractable G43.009 [facility] [address] 19116- 7618 Sep, Low back pain M54.5 [facility] [address] 78521- 8465 Sep, [facility] [address] 00864- 3432 Sep, Migraine without aura and without status migrainosus, not intractable G43.009 [facility] [address] 29666- 5399 Sep, Type 1 diabetes mellitus with hypoglycemia without coma E10.649 ; Anemia D64.9 ; Migraine without aura and without status migrainosus, not intractable G43.009 ; Chronic kidney disease, unspecified N18.9 ; Autonomic neuropathy G90.9 and Postural hypotension I95.1 [facility] [address] 13283- 1911 Sep, Low back pain M54.5 [facility] [address], [place] [address] 3649 Aug, Low back pain M54.5 [facility] [id number] [place] [address] 09512- 2236 Jul, [facility] [id number] [place] [address] 89426- 2649 Jul, Low back pain M54.5 [facility] [id number] [place] [address] 39535- 1898 Jun, [facility] [id number] [place] [address] 54974- 9928 Jun, Low back pain M54.5 [facility] [id number] [place] [address] 37883- 8334 Jun, Migraine without aura and without status migrainosus, not intractable G43.009 [facility] [id number] [place] [address] 97206- 8277 Jun, Type 1 diabetes mellitus with hyperglycemia E10.65 ; Dysthymia F34.1 and Migraine without aura and without status migrainosus, not intractable G43.009 [facility] [address] [place] [address] 19271- 2213 Jun, [facility] [address] [place] [address] 70708- 1761 May, Type 1 diabetes mellitus with hyperglycemia E10.65 [facility] [id number] [place] [address] 41878- 0351 May, Low back pain M54.5 [facility] [id number] [place] [address] 29327- 8565 May, Type 1 diabetes mellitus with hyperglycemia E10.65 [facility] [address], [place] [address]- 8136 Apr, [facility] [id number] [place] [address] 67263- 2274 Apr, Chronic kidney disease, stage 4 (severe) N18.4 [facility] [id number] [place] [address] 11896- 9606 Apr, Low back pain M54.5 [facility] [id number] [place] [address] 52674- 0408 March, [facility] [id number] [place] [address] 26598- 6884 March, Low back pain M54.5 [facility] [id number] [place] [address] 80674- 6882 Feb, [facility] [id number] [place] [address] 53453- 6033 Feb, [facility] [id number] [place] [address] 77107- 2881 Feb, Low back pain M54.5 [facility] [id number] [place] [address] 00125- 8628 Feb, Low back pain M54.5 [facility] [id number] [place] [address] 48120- 1056 Feb, Migraine without aura and without status migrainosus, not intractable G43.009 [facility] [id number] [place] [address] 44861- 2575 Feb, [facility] [id number] [place] [address] 39398- 6215 Jan, Low back pain M54.5 [facility] [id number] [place] [address] 48670- 4317 Jan, Type 1 diabetes mellitus without complications E10.9 ; Anemia D64.9 ; Chronic kidney disease, unspecified N18.9 ; Migraine without aura and without status migrainosus, not intractable G43.009 and Other insomnia G47.09 [facility] [id number] [place] [address] 43518- 6672 Jan, [facility] [address] [place] [address] 57654- 9819 Dec, Low back pain M54.5 [facility] [id number] [place] [address] 54791- 6966 Dec, [facility] [id number] [place] [address] 91755- 3601 Dec, [facility] [address] 56719- 2878 Dec, Shortness of breath R06.02 ; Type 1 diabetes mellitus without complications E10.9 and Leg swelling M79.89 [facility] [id number] [place] [address] 84498- 6209 Nov, Low back pain M54.5 [facility] [id number] [place] [address] 75557- 5934 Nov, Viral syndrome B34.9 [facility] [id number] [place] [address] 07702- 6668 Oct, Low back pain M54.5 [facility] [id number] [place] [address] 42417- 7416 Oct, [facility] [id number] [place] [address] 26606- 2114 Oct, Low back pain M54.5 [facility] [id number] [place] [address] 53007- 1662 Sep, [facility] [id number] [place] [address] 23304- 1239 Sep, Fatigue, unspecified type R53.83 ; Type 1 diabetes mellitus without complications E10.9 and Anemia D64.9 [facility] [id number] [place] [address] 00801- 8913 03 Sep, 2016 Low back pain M54.5 [facility] [address] [place] [address]- 5827 Sep, Type 1 diabetes mellitus with hyperglycemia E10.65 [facility] [id number] [place] [address] 56675- 5321 Aug, Type 1 diabetes mellitus without complications E10.9 [facility] [id number] [place] [address] 57616- 1852 Aug, [facility] [id number] [place] [address] 78177- 8330 Aug, [facility] [id number] [place] [address] 74970- 1621 Jul, [facility] [id number] [place] [address] 78757- 6791 14 Jul, 2016 Low back pain M54.5 [facility] [id number] [place] [address] 78625- 0390 12 Jul, 2016 Hyperkalemia, diminished renal excretion E87.5 [facility] [id number] [place] [address] 57493- 0794 09 Jul, 2016 Hyperkalemia, diminished renal excretion E87.5 [facility] [id number] [place] [address] 94180- 7806 Jun, [facility] [id number] [place] [address] 09732- 9645 Jun, Low back pain M54.5 [facility] [id number] [place] [address] 69110- 7686 Jun, Anemia D64.9 ; Autonomic neuropathy G90.9 and Postural hypotension I95.1 [facility] [id number] [place] [address] 18407- 9516 Jun, [facility] [id number] [place] [address] 27104- 2115 May, Type 1 diabetes mellitus with complications E10.8 and Anemia D64.9 [facility] [address], [place] [address]- 8486 May, Low back pain M54.5 [facility] [address] [facility] [id number], [place] [address]- 8593 Apr, [facility] [address] [facility] [id number], [place] [address]- 3634 Apr, Low back pain M54.5 [facility] [id number] [place] [address] 51971- 3601 Apr, [facility] [address] [facility] [id number] [place] [address] 60274- 8698 Apr, [facility] [id number] [place] [address] 19469- 9475 March, Low back pain M54.5 and Other chronic pain G89.29 [facility] [id number] [place] [address] 78450- 2708 March, Type 1 diabetes mellitus without complications E10.9 [facility] [address], [place] [address]- 2641 March, [facility] [address] [place] [address] 69389- 0230 March, [facility] [address], [place] [address]- 9073 Feb, [facility] [address], [place] [address]- 4573 Feb, Type 1 diabetes mellitus without complications E10.9 [facility] [address] [facility] [id number], [place] [address]- 3377 Feb, Trochanteric bursitis, right hip M70.61 [facility] [id number], [place] [address]- 4949 Jan, [facility] [address], [place] [address]- 5005 Jan, [facility] [address] [place] [address] 86264- 2497 Dec, Type 1 diabetes mellitus with complications E10.8 [facility] [id number] [place] [address] 34461- 1624 Dec, [facility] [id number] [place] [address] 90871- 5867 Dec, Anemia D64.9 ; Autonomic neuropathy G90.9 and Postural hypotension I95.1 [facility] [id number] [place] [address] 29920- 8776 Dec, [facility] [id number] [place] [address] 93085- 4336 Nov, Sore throat J02.9 [facility] [id number] [place] [address] 41308- 5435 Nov, Type 1 diabetes mellitus with complications E10.8 [facility] [id number] [place] [address] 45965- 5282 Nov, 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 ; Proteinuria, unspecified R80.9 and Chronic kidney disease, unspecified N18.9 [facility] [address] [place] [address] 38742- 4495 Nov, [facility] [id number] [place] [address] 23385- 0743 Nov, Trochanteric bursitis, right hip M70.61 [facility] [address] [place] [address] 22066- 3663 Nov, [facility] [id number] [place] [address] 65581- 5110 Oct, [facility] [id number] [place] [address] 81226- 2132 Oct, [facility] [id number] [place] [address] 26038- 1345 Oct, [facility] [address] [facility] [id number], [place] [address]- 3136 Sep, [facility] [id number] [place] [address] 82735- 3319 Sep, [facility] [address] [place] [address] 68819- 4072 Sep, Type 2 diabetes mellitus with complication E11.8 and Right hip pain M25.551 [facility] [address] [facility] [id number] [place] [address] 36187- 2437 Sep, [facility] [id number] [place] [address] 56063- 4403 Aug, [facility] [id number] [place] [address] 41893- 7036 Aug, [facility] [id number] [place] [address] 74134- 4345 Aug, [facility] [address] [place] [address] 59971- 1704 Aug, Type 1 diabetes mellitus without complications E10.9 [facility] [address] [place] [address] 85699- 0942 16 Jul, 2015 [facility] [address] [place] [address] 38744- 9002 15 Jul, 2015 [facility] [address] [place] [address] 63230- 2106 14 Jul, 2015 [facility] [id number], [place] [address]- 4550 Jun, [facility] [id number] [place] [address] 76484- 2155 Jun, [facility] [address], [place] [address]- 3491 Jun, [facility] [id number] [place] [address] 51643- 4499 Jun, [facility] [address] [place] [address] 68015- 5894 Jun, [facility] [address] [place] [address] 13343- 2834 Jun, Diabetes mellitus without mention of complication, type I [ juvenile type], not stated as uncontrolled 250.01 [facility] [id number] [place] [address] 36514- 3108 May, [facility] [id number] [place] [address] 22889- 9792 May, [facility] [id number] [place] [address] 87600- 0064 May, [facility] [id number] [place] [address] 14363- 1795 May, Autonomic neuropathy 337.9 ; Postural hypotension 458.0 and Anemia 285.9 [facility] [address], [place] [address]- 3891 May, [facility] [id number] [place] [address] 63208- 8947 Apr, [facility] [id number] [place] [address] 23886- 4740 Apr, [facility] [address] [place] [address] 16059- 1070 Apr, [facility] [address], [place] [address]- 1268 Apr, [facility] [id number] [place] [address] 78020- 4342 Apr, [facility] [id number] [place] [address] 93334- 4733 March, [facility] [id number] [place] [address] 11415- 7916 March, [facility] [place] [facility] [address] [id number] [place] [address]- 4808 March, [facility] [place] [facility] [address] [id number] [place] [address]- 5202 March, [facility] [place] [facility] [address] [id number] [place] [address]- 4206 March, [facility] [place] [facility] [address] [id number] [place] [address]- 6070 Feb, [facility] [place] [facility] [address] [id number] [place] [address]- 6898 Feb, [facility] [place] [facility] [address] [id number] [place] [address]- 1680 Feb, [facility] [place] [facility] [address] [id number] [place] [address]- 6646 Jan, [facility] [place] [facility] [address] [id number] [place] [address]- 1956 Jan, [facility] [place] [facility] [address] [id number] [place] [address]- 1324 Jan, [facility] [place] [facility] [address] [id number] [place] [address]- 8043 Jan, [facility] [place] [facility] [address] [id number] [place] [address]- 7795 Jan, [facility] [place] [facility] [address] [id number] [place] [address]- 7662 Jan, [facility] [place] [facility] [address] [id number] [place] [address]- 4001 Jan, [facility] [place] [facility] [address] [id number] [place] [address]- 4320 Jan, [facility] [place] [facility] [address] [id number] [place] [address]- 3646 Jan, [facility] [place] [facility] [address] [id number] [place] [address]- 6687 Jan, [facility] [place] [facility] [address] [id number] [place] [address]- 2129 Jan, [facility] [place] [facility] [address] [id number] [place] [address]- 4073 Jan, [facility] [place] [facility] [address] [facility] [id number] [place] [address]- 7681 Jan, [facility] [place] [facility] [address] [facility] [id number] [place] [address]- 5949 Dec, [facility] [place] [facility] [address] [id number] [place] [address]- 4827 Dec, [facility] [place] [facility] [address] [facility] [id number] [place] [address]- 2754 Dec, [facility] [place] [facility] [address] [facility] [id number] [place] [address]- 6427 Dec, [facility] [place] [facility] [address] [facility] [id number], [place] [address]- 7379 Dec, [facility] [place] [facility] [address] [facility] [id number] [place] [address]- 8954 Dec, [facility] [place] [facility] [address] [facility] [id number] [place] [address]- 7554 Dec, [facility] [place] [facility] [address] [facility] [id number], [place] [address]- 6226 Dec, [facility] [place] [facility] [address] [facility] [id number], [place] [address]- 6969 Nov, [facility] [place] [facility] [address] [facility] [id number], [place] [address]- 3870 Nov, [facility] [place] [facility] [address] [facility] [id number], [place] [address]- 3530 Nov, [facility] [place] [facility] [address] [facility] [id number], [place] [address]- 6927 Nov, [facility] [place] [facility] [address] [id number] [place] [address]- 7332 Nov, [facility] [place] [facility] [address] [id number] [place] 4467 Nov, [facility] [place] [facility] [address] [id number] [place] [address]- 3716 Nov, [facility] [place] [facility] [address] [id number] [place] [address]- 4018 Nov, [facility] [place] [facility] [address] [id number] [place] [address]- 6630 Nov, [facility] [place] [facility] [address] [id number] [place] [address]- 9458 Oct, [facility] [place] [facility] [address] [id number] [place] [address] Oct, [facility] [place] [facility] [address] [id number] [place] [address] Oct, [facility] [place] [facility] [address] [id number] [place] [address] Oct, [facility] [place] [facility] [address] [id number] [place] [address] Oct, [facility] [place] [facility] [address] [id number] [place] [address] Oct, [facility] [place] [facility] [address] [id number] [place] [address] Oct, [facility] [place] [facility] [address] [id number] [place] [address] 29 Oct, 2014 [facility] [place] [facility] [address] [id number] [place] [address] Oct, [facility] [place] [facility] [address] [id number] [place] [address] 17 Oct, 2014 [facility] [place] [facility] [address] [id number] [place] [address] Oct, [facility] [place] [facility] [address] [id number] [place] [address] Oct, [facility] [place] [facility] [address] [id number] [place] [address] Oct, [facility] [place] [facility] [address] [id number] [place] [address] Oct, [facility] [place] [facility] [address] [id number] [place] [address] Sep, [facility] [place] [facility] [address] [id number] [place] [address] Sep, [facility] [place] [facility] [address] [id number] [place] [address] Sep, [facility] [place] [facility] [address] [id number] [place] [address] Sep, [facility] [place] [facility] [address] [id number], [place] [address] Aug, [facility] [place] [facility] [address] [id number], [place] [address] Aug, [facility] [place] [facility] [address] [id number], [place] [address] Aug, [facility] [place] [facility] [address] [id number], [place] [address] Aug, [facility] [place] [facility] [address] [id number], [place] [address] Aug, [facility] [place] [facility] [address] [id number], [place] [address] Aug, [facility] [place] [facility] [address] [id number], [place] [address] Aug, [facility] [place] [facility] [address] [id number], [place] [address] Aug, [facility] [place] [facility] [address] [id number] [place] [address] 02 Aug, 2014 [facility] [place] [facility] [address] [id number] [place] [address] 02 Aug, 2014 [facility] [place] [facility] [address] [id number] [place] [address] 29 Jul, 2013 [facility] [place] [facility] [address] [id number] [place] [address] 29 Jul, 2013 [facility] [facility] [address] [id number] [place] [address] 2542 29 Jul, 2013 [facility] [place] [facility] [address] [id number] [place] [address] 6322 29 Jul, 2013 [facility] [place] [facility] [address] [id number] [place] [address] 5007 22 Jul, 2013 [facility] [place] [facility] [address] [id number] [place] [address]- 0732 22 Jul, 2013 [facility] [place] [facility] [address] [id number] [place] [address]- 2540 19 Jul, 2013 [facility] [place] [facility] [address] [id number] [place] [address] 2548 19 Jul, 2013 [facility] [place] [facility] [address] [id number] [place] [address]- 2548 11 Jul, 2013 [facility] [place] [facility] [address] [id number] [place] [address] 2546 11 Jul, 2013 [facility] [place] [facility] [address] [id number] [place] [address]- 2547 10 Jul, 2013 [facility] [place] [facility] [address] [id number] [place] [address] 254 10 Jul, 2013 [facility] [place] [facility] [address] [id number] [place] [address]- 2548 08 Jul, 2013 [facility] [place] [facility] [address] [id number] [place] [address] 2546 Jul, 2013 [facility] [place] [facility] [address] [id number] [place] [address]- 6070 Jul, 2013 [facility] [place] [facility] [address] [id number] [place] [address]- 1195 Jul, [facility] [place] [facility] [address] [id number] [place] [address]- 1618 Jul, [facility] [place] [address] [id number] [place] [address]- 1471 Jul, [facility] [place] [facility] [address] [id number] [place] [address]- 1290 Jun, [facility] [place] [facility] [address] [id number] [place] [address]- 1607 Jun, [facility] [place] [facility] [address] [id number] [place] [address]- 2460 Jun, [facility] [place] [address] [id number] [place] [address]- 6229 Jun, [facility] [place] [facility] [address] [id number] [place] [address]- 6543 Jun, [facility] [address] [id number] [place] [address]- 3765 Jun, [facility] [address] [id number] [place] [address]- 8809 Jun, [facility] [place] [facility] [address] [id number] [place] [address]- 8089 Jun, [facility] [address] [id number] [place] [address]- 1491 Jun, [facility] [address] [id number] [place] [address]- 4712 Jun, [facility] [place] [address] [id number] [place] [address]- 6018 Jun, [facility] [address] [id number] [place] [address]- 9790 Jun, [facility] [address] [id number] [place] [address]- 4322 Jun, [facility] [place] [address] [id number] [place] [address]- 4778 Jun, [facility] [address] [id number] [place] [address]- 6087 Jun, [facility] [address] [id number] [place] [address]- 0350 May, [facility] [address] [id number] [place] [address]- 7115 May, [facility] [address] [id number] [place] [address]- 9734 May, [facility] [place] [facility] [address] [id number] [place] [address]- 5403 May, [facility] [address] [id number] [place] [address]- 4655 May, [facility] [address] [id number] [place] [address]- 4068 May, [facility] [place] [address] [id number] [place] [address]- 0143 May, [facility] [place] [address] [id number] [place] [address]- 5043 May, [facility] [address] [id number] [place] [address]- 3334 Apr, [facility] [address] [id number] [place] [address]- 2918 Apr, [facility] [address] [id number] [place] [address]- 2889 Apr, [facility] [address] [id number] [place] [address]- 0185 Apr, [facility] [address] [id number] [place] [address]- 1297 Apr, [facility] [address] [id number] [place] [address]- 4628 Apr, [facility] [address] [id number] [place] [address]- 9361 Apr, [facility] [address] [id number] [place] [address]- 0015 Apr, [facility] [address] [id number] [place] [address]- 4179 Apr, [facility] [address] [id number] [place] [address]- 1341 Apr, [facility] [address] [id number] [place] [address]- 7665 Apr, [facility] [address] [id number] [place] [address]- 6993 Apr, [facility] [address] [id number] [place] [address]- 5301 Apr, [facility] [address] [id number] [place] [address]- 7141 Apr, [facility] [address] [id number] [place] [address]- 1714 Apr, [facility] [address] [id number] [place] [address]- 7821 Apr, [facility] [address] [id number] [place] [address]- 5330 Apr, [facility] [address] [id number] [place] [address]- 0230 Apr, [facility] [address] [id number] [place] [address]- 7935 March, [facility] [address] [id number] [place] [address]- 9076 March, [facility] [address] [id number] [place] [address]- 0962 March, [facility] [address] [id number] [place] [address]- 0931 March, [facility] [address] [id number] [place] [address]- 0035 March, [facility] [address] [id number] [place] [address]- 7942 March, [facility] [address] [id number] [place] [address]- 2565 March, [facility] [address] [id number] [place] [address]- 2799 March, [facility] [address] [id number] [place] [address]- 9031 March, [facility] [address] [id number] [place] [address]- 4621 Feb, [facility] [address] [id number] [place] [address]- 0971 Feb, [facility] [address] [id number] [place] [address]- 3123 Feb, [facility] [address] [id number] [place] [address]- 9668 Feb, [facility] [address] [id number] [place] [address]- 9522 Feb, [facility] [address] [id number] [place] [address]- 1596 Feb, [facility] [address] [id number] [place] [address]- 9395 Feb, [facility] [address] [id number] [place] [address]- 8894 Feb, [facility] [address] [id number] [place] [address]- 5922 Feb, [facility] [address] [id number] [place] [address]- 1405 Feb, [facility] [address] [id number] [place] [address]- 4888 Feb, [facility] [address] [id number] [place] [address]- 1175 Feb, [facility] [address] [id number] [place] [address]- 3455 Feb, [facility] [address] [id number] [place] [address]- 0778 Jan, [facility] [address] [id number] [place] [address]- 5546 Jan, [facility] [address] [id number] [place] [address]- 0878 Jan, [facility] [address] [id number] [place] [address]- 2180 Jan, [facility] [address] [id number] [place] [address]- 8795 Jan, [facility] [address] [id number] [place] [address]- 5123 Jan, [facility] [address] [id number] [place] [address]- 4663 Jan, [facility] [address] [id number] [place] [address]- 1541 Jan, [facility] [address] [id number] [place] [address]- 6333 Dec, [facility] [address] [id number] [place] [address]- 7233 Dec, [facility] [address] [id number] [place] [address]- 4127 Dec, [facility] [address] [id number] [place] [address]- 1206 Dec, [facility] [address] [id number] [place] [address]- 6196 Dec, [facility] [address] [id number] [place] [address]- 6486 Dec, [facility] [address] [id number] [place] [address]- 8790 Dec, [facility] [address] [id number] [place] [address]- 7408 Dec, [facility] [address] [id number] [place] [address]- 2862 Dec, [facility] [address] [id number] [place] [address]- 6403 Dec, [facility] [address] [id number] [place] [address]- 4621 Nov, [facility] [address] [id number] [place] [address]- 0997 Nov, [facility] [address] [id number] [place] [address]- 8831 Nov, [facility] [address] [id number] [place] [address]- 4371 Nov, [facility] [address] [id number], [place] [address]- 8133 Nov, [facility] [address] [id number] [place] [address]- 4479 Nov, [facility] [address] [id number] [place] [address]- 5905 Nov, [facility] [address] [id number] [place] [address]- 5865 Nov, [facility] [address] [id number] [place] [address]- 7985 02 Nov, 2013 [facility] [address] [id number] [place] [address]- 6484 02 Nov, 2013 [facility] [address] [id number] [place] [address]188 19 Oct, 2013 [facility] [address] [id number] [place] [address]- 1478 19 Oct, 2013 [facility] [address] [id number] [place] [address]- 7080 18 Oct, 2013 [facility] [address] [id number] [place] [address]- 8036 18 Oct, 2013 [facility] [address] [id number] [place] [address]- 7966 17 Oct, 2013 [facility] [address] [id number] [place] [address]- 7493 17 Oct, 2013 [facility] [address] [id number] [place] [address]- 3928 16 Oct, 2013 [facility] [address] [id number] [place] [address]- 3057 16 Oct, 2013 [facility] [address] [id number] [place] [address]- 3083 11 Oct, 2013 [facility] [address] [id number] [place] [address]- 7550 11 Oct, 2013 [facility] [address] [id number] [place] [address]- 5284 04 Oct, 2013 [facility] [address] [id number] [place] [address]- 4101 04 Oct, 2013 [facility] [address] [id number] [place] [address]- 9149 04 Oct, 2013 [facility] [address] [id number] [place]8 04 Oct, 2013 [facility] [address] [id number] [place] [address]- 0623 Sep, [facility] [address] [id number] [place] [address]- 3697 Sep, [facility] [address] [id number] [place] [address]- 9501 Sep, [facility] [address] [id number] [place] [address]- 3974 Sep, [facility] [address] [id number] [place] [address]- 7473 Sep, [facility] [address] [id number] [place] [address]- 2012 Sep, [facility] [address] [id number] [place] [address]- 8759 Aug, [facility] [address] [id number] [place] [address]- 3601 Aug, [facility] [address] [id number] [place] [address]- 8623 Aug, [facility] [address] [id number] [place] [address]- 4177 Aug, [facility] [address] [id number] [place] [address]- 7774 Aug, [facility] [address] [id number] [place] [address]- 5928 10 Aug, 2013 [facility] [address] [id number] [place] [address]- 5674 Aug, [facility] [address] [id number] [place] [address]- 8727 Aug, [facility] [address] [id number] [place] [address]- 2995 Aug, [facility] [address] [id number] [place] [address]- 0066 25 Jul, 2012 [facility] [address] [id number] [place] [address] 2546 23 Jul, 2012 [facility] [address] [id number] [place] [address] 2546 21 Jul, 2012 [facility] [address] [id number] [place] [address] 2546 20 Jul, 2012 [facility] [address] [id number] [place] [address] 2545 18 Jul, 2012 [facility] [address] [id number] [place] [address]- 8999 17 Jul, 2012 [facility] [address] [id number] [place] [address]- 9469 16 Jul, 2012 [facility] [place] [address] [id number] [place] [address]- 8768 11 Jul, 2012 [facility] [place] [address] [id number] [place] [address]- 4392 09 Jul, 2012 [facility] [place] [address] [id number] [place] [address] 2541 09 Jul, 2012 [facility] [place] [facility] [address] [id number] [place] [address]- 9222 06 Jul, 2012 [facility] [place] [address] [id number] [place] [address]- 3276 Jul, 2012 [facility] [place] [facility] [address] [id number] [place] [address]- 8694 Jun, [facility] [place] [facility] [address] [id number] [place] [address]- 0002 Jun, [facility] [place] [facility] [address] [id number] [place] [address]- 4953 Jun, [facility] [place] [facility] [address] [id number] [place] [address]- 1984 Jun, [facility] [place] [facility] [address] [id number] [place] [address]- 9971 Jun, [facility] [address] [id number] [place] [address]- 1213 Jun, [facility] [address] [id number] [place] [address] 2546 Jun, [facility] [address] [id number] [place] [address]- 8966 Jun, [facility] [address] [id number] [place] [address] 2549 Jun, [facility] [address] [id number] [place] [address]- 7528 May, [facility] [address] [id number] [place] [address]- 3190 May, [facility] [address] [id number] [place] [address]- 7794 May, [facility] [address] [id number] [place] [address]- 3397 May, [facility] [address] [id number] [place] [address]- 1061 May, [facility] [address] [id number] [place] [address]- 8203 May, [facility] [address] [id number] [place] [address]- 2549 May, [facility] [address] [id number] [place] [address]- 254 March, [facility] [address] [id number] [place] [address]- 2542 March, [facility] [address] [id number] [place] [address]- 2546 March, [facility] [address] [id number] [place] [address]- 2333 Dec, [facility] [place] [facility] [address] [id number] [place] [address]- 5001 Nov, [facility] [place] [facility] [address] [id number] [place] [address]- 5069 Aug, [facility] [place] [facility] [address] [id number] [place] [address]- 4262 Aug, [facility] [place] [facility] [address] [id number] [place] [address]- 1936 Jun, [facility] [place] [facility] [address] [id number] [place] [address]- 1977 Jun, [facility] [place] [facility] [address] [id number] [place] [address]- 5467 Jun, [facility] [place] [facility] [address] [id number] [place] [address]- 0280 Jun, [facility] [place] [facility] [address] [id number] [place] [address]- 5531 May, [facility] [place] [facility] [address] [id number] [place] [address]- 0668 May, [facility] [place] [facility] [address] [id number] [place] [address]- 2602 May, [facility] [place] [facility] [address] [id number] [place] [address]- 5226 May, [facility] [place] [facility] [address] [id number], [place] [address]- 1662 May, [facility] [place] [facility] [address] [id number] [place] [address]- 4932 May, [facility] [place] [facility] [address] [id number] [place] [address]- 8026 May, [facility] [place] [facility] [address] [id number] [place] [address] Apr, [facility] [place] [facility] [address] [id number], [place] [address] Apr, [facility] [address] [id number] [place] [address] Apr, [facility] [place] [facility] [address] [id number] [place] [address] Apr, [facility] [address] [id number] [place] [address] March, [facility] [address] [id number] [place] [address] March, [facility] [address] [id number] [place] [address] March, [facility] [address] [id number] [place] [address] March, [facility] [address] [id number] [place] [address] March, [facility] [address] [id number] [place] [address] March, [facility] [address] [id number] [place] [address] March, [facility] [address] [id number] [place] [address] March, [facility] [address] [id number] [place] [address] March, [facility] [place] [facility] [address] [id number] [place] [address] Feb, [facility] [place] [facility] [address] [id number] [place] [address] Feb, [facility] [place] [facility] [address] [id number] [place] [id number] [address] Jan, [facility] [place] [facility] [address] [id number] [place] [address] Jan, [facility] [place] [facility] [address] [id number] [place] [address] 16 Jan, 2012 [facility] [address] [id number] [place] [address] 05 Jan, 2012 [facility] [place] [facility] [address] [id number] [place] [address] 20 Dec, 2011 [facility] [place] [facility] [address] [id number] [place] [address] 16 Dec, 2011 [facility] [place] [facility] [address] [id number] [place] [address] 15 Dec, 2011 [facility] [place] [facility] [address] [id number] [place] [address] Nov, [facility] [address] [id number] [place] [address] Oct, [facility] [place] [facility] [address] [id number] [place] [address] 15 Oct, 2011 [facility] [place] [facility] [address] [id number] [place] [address] 15 Oct, 2011 [facility] [place] [facility] [address] [id number] [place] [address] 14 Oct, 2011 [facility] [place] [facility] [address] [id number] [place] [address] 14 Oct, 2011 [facility] [place] [facility] [address] [id number] [place] [address] 12 Oct, 2011 [facility] [place] [facility] [address] [id number] [place] [address] 09 Oct, 2011 [facility] [place] [facility] [address] [id number] [place] [address] Oct, [facility] [place] [facility] [address] [id number] [place] [address] 22 Sep, 2011 [facility] [place] [facility] [address] [id number], [place] [address] Sep, [facility] [address] [facility] [id number], [place] [address] 14 Sep, 2011 [facility] [address] [facility] [id number], [place] [address] Sep, [facility] [address] [facility] [id number], [place] [address] Sep, [facility] [address] [facility] [id number], [place] [address] Sep, [facility] [address] [facility] [id number], [place] [address] Sep, [facility] [address] [facility] [id number], [place] [address] Sep, [facility] [id number], [place] [address] Sep, [facility] [address] [facility] [id number], [place] [address] Aug, [facility] [id number], [place] [address] Jul, [facility] [id number], [place] [address] Oct, [facility] [address] [id number], [place] [address] Oct, [facility] [id number], [place] [address] Oct, IMMUNIZATIONS No Known Immunizations SOCIAL HISTORY Never Assessed REASON FOR VISIT Controlled Med Refill 11/21 PLAN OF CARE VITAL SIGNS MEDICATIONS Medication Instructions Dosage Frequency Start Date End Date Duration Status Topamax 25 MG Orally Twice a day 1 tablet 12h 20 Jan, 2017 30 days Active RESULTS No Results PROCEDURES No Known procedures INSTRUCTIONS MEDICATIONS ADMINISTERED No Known Medications MEDICAL (GENERAL) HISTORY Type Description Date Medical History Diabetic Surgical History Bilat tubal ligation Hospitalization History Diabetic multiple hospitalizations
--- OUTSIDE RECORDS SUMMARY | 2018-06-06 09:08 | XMS REPORT ---
Author Author ALAN CARABALLO [facility] Address [address] [place] [address] Care Team Providers Care Dress Fitter Name Role Phone ALAN CARABALLO Unavailable PROBLEMS Type Condition ICD9-CM Code INH88-GA Code Onset Dates Condition Status SNOMED Code Problem Type 1 diabetes mellitus without complications E10.9 Active 082526694 Problem Other insomnia G47.09 Active 819698632 Problem Low back pain M54.5 Active 030540403 Problem Migraine with aura and without status migrainosus, not intractable G43.109 Active 7819752 Problem Menorrhagia with regular cycle N92.0 Active 134150460 Problem Chronic kidney disease, stage 4 (severe) N18.4 Active 934278102 Problem Migraine without aura and without status migrainosus, not intractable G43.009 Active 101938611 Problem Autonomic neuropathy G90.9 Active 265750002 Problem Dysthymia F34.1 Active 92317072 Problem Type 1 diabetes mellitus with hypoglycemia without coma E10.649 Active 26895159 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 24089099 Problem Type 1 diabetes mellitus with hyperglycemia E10.65 Active 36816201 Problem Migraine G43.909 Active 96332923 Problem Irritable bowel K58.9 Active 88421466 Problem Proteinuria, unspecified R80.9 Active 33697718 Problem Anemia, unspecified D64.9 Active 856063848 Problem Chronic kidney disease, unspecified N18.9 Active 073452100 Problem Restless legs syndrome G25.81 Active [id number] ALLERGIES No Information ENCOUNTERS Encounter Location Date Diagnosis [facility] [id number], [place] [address] May, [facility] [address] [facility] [id number], [place] [address] 0[address] May, [facility] [id number], [place] [address] 6489 May, [facility] [address] [facility] [id number] [place] [address] 58440- 6897 May, Low back pain M54.5 [facility] [address] [facility] [id number], [place] [address] Apr, Type 1 diabetes mellitus with hyperglycemia E10.65 [facility] [address] [facility] [id number] [place] [address] 04830- 9188 Apr, Low back pain M54.5 [facility] [address] [facility] [id number] [place] [address], [place] [address]- 9865 Apr, [facility] [id number] [place] [address] 27896- 5516 Apr, [facility] [id number] [place] [address] 29775- 8952 March, [facility] [id number] [place] [address] 59865- 3738 March, Low back pain M54.5 [facility] [id number] [place] [address] 29452- 7144 March, [facility] [address], [place] [address] 2567 Feb, [facility] [address], [place] [address] 9592 Feb, Low back pain M54.5 [facility] [address] [facility] [id number], [place] [address] 1618 Jan, Restless legs syndrome G25.81 [facility] [id number], [place] [address] 5402 Jan, Low back pain M54.5 [facility] [address], [place] [address] 7938 Jan, [facility] [id number] [place] [address] 71623- 9624 Jan, Type 1 diabetes mellitus without complications E10.9 ; Low back pain M54.5 ; Cough R05 ; Diarrhea, unspecified type R19.7 ; Migraine without aura and without status migrainosus, not intractable G43.009 and Uses control Z30.9 [facility] [address] [address]- [address]99 Dec, Low back pain M54.5 [facility] [address] [address]- 9799 Dec, [place] [address] [address]- 3926 Nov, Well woman exam Z01.419 ; Menorrhagia with regular cycle N92.0 ; Vaginal dryness N89.8 and Migraine with aura and without status migrainosus, not intractable G43.109 [place] [address] 12903- 9320 Nov, [facility] [address] 40137- 8286 Nov, Low back pain M54.5 [facility] [address] [address]- 3519 Oct, Low back pain M54.5 [facility] [address] 07845- 6460 Oct, Migraine without aura and without status migrainosus, not intractable G43.009 [facility] [id number] [place] [address] 31436- 4806 Sep, Low back pain M54.5 [facility] [address] 46143- 9095 Sep, [facility] [address] 61218- 8107 Sep, Migraine without aura and without status migrainosus, not intractable G43.009 [facility] [id number] [place] [address] 44556- 5284 Sep, Type 1 diabetes mellitus with hypoglycemia without coma E10.649 ; Anemia D64.9 ; Migraine without aura and without status migrainosus, not intractable G43.009 ; Chronic kidney disease, unspecified N18.9 ; Autonomic neuropathy G90.9 and Postural hypotension I95.1 [facility] [id number] [place] [address] 56494- 9155 Sep, Low back pain M54.5 [facility] [id number] [place] [address] 89492- 1520 Aug, Low back pain M54.5 [facility] [id number] [place] [address] 48501- 5127 Jul, [facility] [address] 17471- 7959 Jul, Low back pain M54.5 [facility] [id number] [place] [address] 84723- 9557 Jun, [facility] [address] 43836- 5687 Jun, Low back pain M54.5 [facility] [id number] [place] [address] 87849- 9523 Jun, Migraine without aura and without status migrainosus, not intractable G43.009 [facility] [id number] [place] [address] 52256- 5112 Jun, Type 1 diabetes mellitus with hyperglycemia E10.65 ; Dysthymia F34.1 and Migraine without aura and without status migrainosus, not intractable G43.009 [facility] [id number] [place] [address] 58557- 6377 Jun, [facility] [id number] [place] [address] 78893- 5144 May, Type 1 diabetes mellitus with hyperglycemia E10.65 [facility] [id number] [place] [address] 73962- 5546 May, Low back pain M54.5 [facility] [id number] [place] [address] 66264 2546 May, Type 1 diabetes mellitus with hyperglycemia E10.65 [facility] [id number] [place] [address] 58704- 8125 Apr, [facility] [id number] [place] [address] 21581- 5935 Apr, Chronic kidney disease, stage 4 (severe) N18.4 [facility] [id number] [place] [address] 28838- 0168 Apr, Low back pain M54.5 [facility] [id number] [place] [address] 15864- 0589 March, [facility] [id number] [place] [address] 74723- 3053 March, Low back pain M54.5 [facility] [id number] [place] [address] 30508- 5872 Feb, [facility] [id number] [place] [address] 02086- 3312 Feb, [facility] [id number] [place] [address] 72760- 7111 Feb, Low back pain M54.5 [facility] [id number] [place] [address] 24299- 0796 Feb, Low back pain M54.5 [facility] [id number] [place] [address] 31114- 0376 Feb, Migraine without aura and without status migrainosus, not intractable G43.009 [facility] [id number] [place] [address] 99446- 8537 Feb, [facility] [id number] [place] [address] 40467- 4166 Jan, Low back pain M54.5 [place] [address] 44568- 1654 Jan, Type 1 diabetes mellitus without complications E10.9 ; Anemia D64.9 ; Chronic kidney disease, unspecified N18.9 ; Migraine without aura and without status migrainosus, not intractable G43.009 and Other insomnia G47.09 [facility] [address] 75414- 9792 Jan, [place] [address] 66357- 5135 Dec, Low back pain M54.5 [place] [address] 91471- 6798 Dec, [place] [address] 41085- 8404 Dec, [place] [id number] [place] [address] 72966- 2902 Dec, Shortness of breath R06.02 ; Type 1 diabetes mellitus without complications E10.9 and Leg swelling M79.89 [place] [id number] [place] [address] 07664- 7517 Nov, Low back pain M54.5 [place] [id number] [place] [address] 41997- 5961 Nov, Viral syndrome B34.9 [place] [id number] [place] [address] 85897- 1116 Oct, Low back pain M54.5 [place] [id number] [place] [address] 21502- 1226 Oct, [facility] [id number] [place] [address] 58963- 9805 Oct, Low back pain M54.5 [facility] [id number] [place] [address] 00870- 1653 15 Sep, 2016 [facility] [id number] [place] [address] 49383- 2956 Sep, Fatigue, unspecified type R53.83 ; Type 1 diabetes mellitus without complications E10.9 and Anemia D64.9 [facility] [id number] [place] [address] 60048- 4679 Sep, Low back pain M54.5 [facility] [id number] [place] [address] 72619- 0319 Sep, Type 1 diabetes mellitus with hyperglycemia E10.65 [facility] [id number] [place] [address] 88996- 7154 Aug, Type 1 diabetes mellitus without complications E10.9 [facility] [id number] [place] [address] 69862- 5201 Aug, [facility] [id number] [place] [address] 59879- 4453 Aug, [facility] [id number] [place] [address] 10608- 5097 Jul, [facility] [id number] [place] [address] 22397- 1677 14 Jul, 2016 Low back pain M54.5 [facility] [id number] [place] [address] 92456 2545 12 Jul, 2016 Hyperkalemia, diminished renal excretion E87.5 [facility] [id number] [place] [address] 61491- 2210 09 Jul, 2016 Hyperkalemia, diminished renal excretion E87.5 [facility] [id number] [place] [address] 51565- 7839 Jun, [facility] [id number] [place] [address] 08322- 9866 Jun, Low back pain M54.5 [facility] [id number] [place] [address] 87020- 2361 Jun, Anemia D64.9 ; Autonomic neuropathy G90.9 and Postural hypotension I95.1 [facility] [id number] [place] [address] 38972- 9735 Jun, [facility] [id number] [place] [address] 96201- 8568 May, Type 1 diabetes mellitus with complications E10.8 and Anemia D64.9 [facility] [id number] [place] [address] 44855- 9836 May, Low back pain M54.5 [facility] [id number] [place] [address] 61943- 6830 Apr, [facility] [id number] [place] [address] 29398- 6865 Apr, Low back pain M54.5 [facility] [id number] [place] [address] 64510- 7309 Apr, [facility] [id number] [place] [address] 30405- 1347 Apr, [facility] [id number] [place] [address] 73288- 4500 March, Low back pain M54.5 and Other chronic pain G89.29 [facility] [id number] [place] [address] 74204- 2768 March, Type 1 diabetes mellitus without complications E10.9 [facility] [id number] [place] [address] 36947- 3840 March, [facility] [id number] [place] [address] 36294- 0753 March, [facility] [id number] [place] [address] 65260- 1335 Feb, [facility] [id number] [place] [address] 67923- 8464 Feb, Type 1 diabetes mellitus without complications E10.9 [facility] [id number] [place] [address] 07469- 5183 Feb, Trochanteric bursitis, right hip M70.61 [facility] [id number] [place] [address] 76582- 2400 Jan, [facility] [address] 80340- 5493 Jan, [facility] [id number] [place] [address] 01249- 6755 Dec, Type 1 diabetes mellitus with complications E10.8 [place] [id number] [place] [address] 77994- 2696 Dec, [place] [address] 06671- 9506 Dec, Anemia D64.9 ; Autonomic neuropathy G90.9 and Postural hypotension I95.1 [place] [id number] [place] [address] 32549- 5447 Dec, [facility] [id number] [place] [address] 52900- 9961 Nov, Sore throat J02.9 [place] [id number] [place] [address] 76607- 0786 Nov, Type 1 diabetes mellitus with complications E10.8 [place] [id number] [place] [address] 25123- 0088 Nov, 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 ; Proteinuria, unspecified R80.9 and Chronic kidney disease, unspecified N18.9 [place] [id number] [place] [address] 07728- 1426 Nov, [facility] [id number] [place] [address] 89525- 4334 Nov, Trochanteric bursitis, right hip M70.61 [facility] [id number] [place] [address] 62238- 4856 Nov, [facility] [id number] [place] [address] 41648- 7576 Oct, [facility] [id number] [place] [address] 78774- 5134 Oct, [facility] [id number] [place] [address] 18023- 8188 Oct, [facility] [id number] [place] [address] 90066- 5085 Sep, [facility] [id number] [place] [address] 79207- 2540 Sep, [facility] [id number] [place] [address] 51365- 1878 Sep, Type 2 diabetes mellitus with complication E11.8 and Right hip pain M25.551 [facility] [id number] [place] [address] 56333- 1124 Sep, [facility] [id number] [place] [address] 17545- 4123 Aug, [facility] [id number] [place] [address] 35602- 1270 Aug, [facility] [id number] [place] [address] 79338- 3018 Aug, [facility] [id number] [place] [address] 82608- 7564 Aug, Type 1 diabetes mellitus without complications E10.9 [facility] [id number] [place] [address] 739534- 0412 16 Jul, 2015 [facility] [id number] [place] [address] 63344- 7754 15 Jul, 2015 [facility] [address], [place] [address]- 6447 Jul, [facility] [address], [place] [address]- 0925 Jun, [facility] [address], [place] [address]- 3702 Jun, [facility] [id number] [place] [address] 50656- 1760 Jun, [facility] [id number] [place] [address] 92251- 2094 Jun, [facility] [id number] [place] [address] 59557- 2472 Jun, [facility] [id number] [place] [address] 26185- 7440 Jun, Diabetes mellitus without mention of complication, type I [ juvenile type], not stated as uncontrolled 250.01 [facility] [address], [place] [address]- 7362 May, [facility] [id number] [place] [address] 70795- 9828 May, [facility] [address], [place] [address]- 6565 May, [facility] [id number] [place] [address] 95825- 1147 May, Autonomic neuropathy 337.9 ; Postural hypotension 458.0 and Anemia 285.9 [facility] [address] [address]- 7190 May, [facility] [id number] [place] [address] 02792- 1277 Apr, [facility] [address], [place] [address]- 4089 Apr, [facility] [id number] [place] [address] 37412- 5108 Apr, [facility] [place] [facility] [address] [id number] [place] [address]- 0093 Apr, [facility] [place] [facility] [address] [id number] [place] [address]- 8147 Apr, [facility] [place] [facility] [address] [id number] [place] [address]- 1853 March, [facility] [place] [facility] [address] [id number] [place] [address]- 9056 March, [facility] [place] [facility] [address] [id number] [place] [address]- 7333 March, [facility] [place] [facility] [address] [id number] [place] [address]- 5869 March, [facility] [place] [facility] [address] [id number] [place] [address]- 6667 March, [facility] [place] [facility] [address] [id number] [place] [address]- 7517 Feb, [facility] [place] [facility] [address] [id number] [place] [address]- 9542 Feb, [facility] [place] [facility] [address] [id number] [place] [address]- 8587 Feb, [facility] [place] [facility] [address] [id number] [place] [address]- 1542 Jan, [facility] [place] [facility] [address] [id number] [place] [address]- 7696 Jan, [facility] [place] [facility] [address] [id number] [place] [address]- 4392 Jan, [facility] [place] [facility] [address] [id number] [place] [address]- 8856 Jan, [facility] [place] [facility] [address] [id number] [place] [address]- 1943 Jan, [facility] [place] [facility] [address] [id number] [place] [address]- 9366 Jan, [facility] [place] [facility] [address] [id number] [place] [address]- 4013 Jan, [facility] [place] [facility] [address] [id number] [place] [address]- 3012 Jan, [facility] [place] [facility] [address] [id number] [place] [address]- 8251 Jan, 2014 [facility] [place] [facility] [address] [id number] [place] [address]- 4283 Jan, [facility] [place] [facility] [address] [id number] [place] [address]- 5212 Jan, [facility] [place] [facility] [address] [facility] [id number] [place] [address]- 7810 Jan, [facility] [place] [facility] [address] [facility] [id number] [place] [address] Jan, [facility] [place] [facility] [address] [facility] [id number] [place] [address] Dec, 2014 [facility] [place] [facility] [address] [facility] [id number] [place] [address] Dec, 2014 [facility] [place] [facility] [address] [facility] [id number] [place] [address] Dec, 2014 [facility] [place] [facility] [address] [facility] [id number] [place] [address] Dec, 2014 [facility] [place] [facility] [address] [facility] [id number] [place] [address] Dec, 2014 [facility] [place] [facility] [address] [id number] [place] [address] Dec, 2014 [facility] [place] [facility] [address] [facility] [id number] [place] [address] Dec, 2014 [facility] [place] [facility] [address] [facility] [id number], [place] [address] Dec, [facility] [place] [facility] [address] [id number] [place] [address] Nov, [facility] [place] [facility] [address] [id number] [place] [address] Nov, [facility] [place] [facility] [address] [id number] [place] [address] Nov, [facility] [place] [facility] [address] [id number] [place] [address] Nov, [facility] [place] [facility] [address] [id number] [place] [address] Nov, [facility] [place] [facility] [address] [id number] [place] [address] Nov, [facility] [place] [facility] [address] [id number] [place] [address] Nov, [facility] [place] [facility] [address] [id number] [place] [address] Nov, [facility] [place] [facility] [address] [id number] [place] [address] Nov, [facility] [place] [facility] [address] [id number] [place] [address] Oct, [facility] [place] [facility] [address] [id number] [place] [address] Oct, [facility] [place] [facility] [address] [id number] [place] [address] Oct, [facility] [place] [facility] [address] [id number] [place] [address] Oct, [facility] [place] [facility] [address] [id number] [place] [address] Oct, [facility] [place] [facility] [address] [id number] [place] [address] Oct, [facility] [place] [facility] [address] [id number] [place] [address] Oct, [facility] [place] [facility] [address] [id number] [place] [address] Oct, [facility] [place] [facility] [address] [id number] [place] [address] Oct, [facility] [place] [facility] [address] [id number] [place] [address] Oct, [facility] [place] [facility] [address] [id number] [place] [address] Oct, [facility] [place] [facility] [address] [id number] [place] [address] Oct, [facility] [place] [facility] [address] [id number] [place] [address] Oct, [facility] [place] [facility] [address] [id number] [place] [address] Oct, [facility] [place] [facility] [address] [id number] [place] [address] Sep, [facility] [place] [facility] [address] [id number] [place] [address] Sep, [facility] [place] [facility] [address] [id number] [place] [address] Sep, [facility] [place] [facility] [address] [id number] [place] [address] Sep, [facility] [place] [facility] [address] [id number] [place] [address] Aug, [facility] [place] [facility] [address] [id number] [place] [address] Aug, [facility] [place] [facility] [address] [id number] [place] [address] Aug, [facility] [place] [facility] [address] [id number] [place] [id number] Aug, [facility] [place] [facility] [address] [id number] [place] [address]- 1088 Aug, [facility] [place] [facility] [address] [id number] [place] [address] 9870 Aug, [facility] [place] [facility] [address] [id number] [place] [address] 4037 Aug, [facility] [place] [facility] [address] [id number] [place] [address] Aug, [facility] [place] [facility] [address] [id number] [place] [address] 4332 Aug, [facility] [place] [facility] [address] [id number] [place] [address]- 9783 Aug, [facility] [place] [facility] [address] [id number] [place] [address]- 5800 29 Jul, 2014 [facility] [place] [facility] [address] [id number] [place] [address]- 4930 29 Jul, 2013 [facility] [place] [facility] [address] [id number] [place] [address]- 7962 29 Jul, 2013 [facility] [place] [facility] [address] [id number] [place] [address]- 2401 29 Jul, 2013 [facility] [place] [facility] [address] [id number] [place] [address]- 2540 22 Jul, 2013 [facility] [place] [facility] [address] [id number] [place] [address]- 8229 22 Jul, 2013 [facility] [place] [facility] [address] [id number] [place] [address] 2540 19 Jul, 2013 [facility] [place] [facility] [address] [id number] [place] [address]- 2543 19 Jul, 2013 [facility] [place] [facility] [address] [id number] [place] [address]- 0446 11 Jul, 2013 [facility] [place] [facility] [address] [id number] [place] [address]- 6839 11 Jul, 2013 [facility] [place] [facility] [address] [id number] [place] [address]- 5826 10 Jul, 2013 [facility] [place] [facility] [address] [id number] [place] [address]- 0986 10 Jul, 2013 [facility] [place] [facility] [address] [id number] [place] [address]- 5746 08 Jul, 2013 [facility] [place] [facility] [address] [id number] [place] [address]- 5191 08 Jul, 2013 [facility] [place] [facility] [address] [id number] [place] [address]- 1952 03 Jul, 2013 [facility] [place] [facility] [address] [id number] [place] [address]- 8651 Jul, 2013 [facility] [place] [facility] [address] [id number] [place] [address]- 3434 Jul, 2013 [facility] [place] [facility] [address] [id number] [place] [address]- 2419 Jul, 2013 [facility] [place] [facility] [address] [id number] [place] [address]- 8479 Jun, [facility] [place] [facility] [address] [id number] [place] [address]- 3440 Jun, [facility] [place] [facility] [address] [id number] [place] [address]- 3234 Jun, [facility] [place] [facility] [address] [id number] [place] [address]- 254 Jun, [facility] [place] [facility] [address] [id number] [place] [address]- 6695 Jun, [facility] [place] [facility] [address] [id number] [place] [address]- 8022 Jun, [facility] [place] [facility] [address] [id number] [place] [address]- 2187 Jun, [facility] [place] [facility] [address] [id number] [place] [address]- 2454 Jun, [facility] [place] [facility] [address] [id number] [place] [address]- 2229 Jun, [facility] [place] [facility] [address] [id number] [place] [address]- 2109 Jun, [facility] [place] [facility] [address] [id number] [place] [address]- 1378 Jun, [facility] [place] [facility] [address] [id number] [place] [address]- 0991 Jun, [facility] [place] [facility] [address] [id number] [place] [address]- 6652 Jun, [facility] [place] [facility] [address] [id number] [place] [address]- 4679 Jun, [facility] [place] [facility] [address] [id number] [place] [address]- 5074 Jun, [facility] [place] [facility] [address] [id number] [place] [address]- 4895 May, [facility] [place] [facility] [address] [id number] [place] [address]- 7502 May, [facility] [place] [facility] [address] [id number] [place] [address]- 1025 May, [facility] [place] [facility] [address] [id number] [place] [address]- 5968 May, [facility] [place] [facility] [address] [id number] [place] [address]- 4157 May, [facility] [place] [facility] [address] [id number] [place] [address]- 2654 May, [facility] [place] [facility] [address] [id number] [place] [address]- 3281 May, [facility] [place] [facility] [address] [id number] [place] [address]- 9950 May, [facility] [place] [facility] [address] [id number] [place] [address]- 1718 Apr, [facility] [place] [facility] [address] [id number] [place] [address]- 3856 24 Apr, 2014 [facility] [place] [facility] [address] [id number] [place] [address]- 2755 Apr, [facility] [place] [facility] [address] [id number] [place] [address]- 6118 Apr, [facility] [place] [facility] [address] [id number] [place] [address]- 6796 Apr, [facility] [place] [facility] [address] [id number] [place] [address]- 6178 Apr, [facility] [place] [facility] [address] [id number] [place] [address]- 8995 Apr, [facility] [place] [facility] [address] [id number], [place] [address]- 2764 Apr, [facility] [place] [facility] [address] [id number] [place] [address]- 3272 Apr, [facility] [place] [facility] [address] [id number] [place] [address]- 7930 Apr, [facility] [place] [facility] [address] [id number], [place] [address]- 5117 Apr, [facility] [place] [facility] [address] [id number], [place] [address]- 9947 Apr, [facility] [place] [facility] [address] [id number] [place] [address]- 4745 Apr, [facility] [place] [facility] [address] [id number], [place] [address]- 0455 Apr, [facility] [place] [facility] [address] [id number], [place] [address]- 4563 Apr, [facility] [place] [facility] [address] [id number] [place] [address]- 5584 Apr, [facility] [place] [facility] [address] [id number] [place] [address]- 5780 Apr, [facility] [place] [facility] [address] [id number] [place] [address]- 3935 Apr, [facility] [place] [facility] [address] [id number] [place] [address]- 5454 March, [facility] [place] [facility] [address] [id number] [place] [address]- 7064 March, [facility] [place] [facility] [address] [id number] [place] [address]- 5540 March, [facility] [place] [facility] [address] [id number] [place] [address]- 3538 March, [facility] [place] [facility] [address] [id number] [place] [address]- 6206 March, [facility] [place] [facility] [address] [id number] [place] [address]- 7619 March, [facility] [place] [facility] [address] [id number] [place] [address]- 8194 March, [facility] [place] [facility] [address] [id number] [place] [address]- 4698 March, [facility] [place] [facility] [address] [id number] [place] [address]- 5351 March, [facility] [place] [facility] [address] [id number] [place] [address]- 8503 Feb, [facility] [place] [facility] [address] [id number] [place] [address]- 2258 Feb, [facility] [place] [facility] [address] [id number] [place] [address]- 7734 Feb, [facility] [place] [facility] [address] [id number] [place] [address]- 5638 Feb, [facility] [place] [facility] [address] [id number] [place] [address]- 0538 Feb, [facility] [place] [facility] [address] [id number] [place] [address]- 5451 Feb, [facility] [place] [facility] [address] [id number] [place] [address]- 4691 Feb, [facility] [place] [facility] [address] [id number] [place] [address]- 8215 Feb, [facility] [place] [facility] [address] [id number] [place] [address]- 9439 Feb, [facility] [place] [facility] [address] [id number] [place] [address]- 7076 Feb, [facility] [place] [facility] [address] [id number] [place] [address]- 3931 Feb, [facility] [place] [facility] [address] [id number] [place] [address]- 5963 Feb, [facility] [place] [facility] [address] [id number] [place] [address]- 6223 Feb, [facility] [place] [facility] [address] [id number] [place] [address]- 6769 Jan, [facility] [place] [facility] [address] [id number] [place] [address]- 2429 Jan, [facility] [place] [facility] [address] [id number] [place] [address]- 6865 Jan, [facility] [place] [facility] [address] [id number] [place] [address]- 5548 24 Jan, 2014 [facility] [place] [facility] [address] [id number] [place] [address]- 1489 Jan, [facility] [place] [facility] [address] [id number] [place] [address]- 8454 Jan, [facility] [place] [facility] [address] [id number] [place] [address]- 1586 Jan, [facility] [place] [facility] [address] [id number] [place] [address]- 8016 Jan, [facility] [place] [facility] [address] [id number] [place] [address]- 1716 Dec, [facility] [place] [facility] [address] [id number] [place] [address]- 6426 Dec, [facility] [place] [facility] [address] [id number] [place] [address]- 9731 Dec, [facility] [place] [facility] [address] [id number] [place] [address]- 4642 Dec, [facility] [place] [facility] [address] [id number] [place] [address]- 0846 Dec, [facility] [place] [facility] [address] [id number] [place] [address]- 2216 Dec, [facility] [place] [facility] [address] [id number] [place] [address]- 3104 Dec, [facility] [place] [facility] [address] [id number] [place] [address]- 3394 Dec, [facility] [place] [facility] [address] [facility] [id number] [place] [address]- 8735 Dec, [facility] [place] [facility] [address] [id number] [place] [address]- 2547 Dec, [facility] [place] [facility] [address] [id number] [place] [address]- 5644 Nov, [facility] [place] [facility] [address] [id number] [place] [address]- 0967 Nov, [facility] [place] [facility] [address] [id number] [place] [address]- 7188 Nov, [facility] [place] [facility] [address] [id number] [place] [address]- 9123 Nov, [facility] [address] [id number] [place] [address]- 0305 Nov, [facility] [place] [facility] [address] [id number] [place] [address]- 9442 Nov, [facility] [place] [facility] [address] [id number] [place] [address]- 4853 Nov, [facility] [place] [facility] [address] [id number] [place] [address]- 2606 Nov, [facility] [place] [facility] [address] [id number] [place] [address]- 1495 Nov, [facility] [place] [facility] [address] [id number] [place] [address]- 0833 Nov, [facility] [place] [facility] [address] [id number] [place] [address]- 0777 19 Oct, 2013 [facility] [place] [facility] [address] [id number] [place] [address]- 6473 19 Oct, 2013 [facility] [place] [facility] [address] [id number] [place] [address]- 3943 18 Oct, 2013 [facility] [place] [facility] [address] [id number] [place] [address]- 3790 18 Oct, 2013 [facility] [place] [facility] [address] [id number] [place] [address]- 0072 17 Oct, 2013 [facility] [place] [facility] [address] [id number], [place] [address]- 2810 17 Oct, 2013 [facility] [place] [facility] [address] [id number] [place] [address]- 2249 16 Oct, 2013 [facility] [place] [facility] [address] [id number] [place] [address]- 8990 16 Oct, 2013 [facility] [place] [facility] [address] [id number], [place] [address]- 4069 11 Oct, 2013 [facility] [place] [facility] [address] [id number], [place] [address]- 9605 Oct, [facility] [place] [facility] [address] [id number] [place] [address]- 4930 Oct, [facility] [place] [facility] [address] [id number] 9537 Oct, [facility] [place] [facility] [address] [facility] [id number] [place] [address]- 0708 Oct, [facility] [place] [facility] [address] [id number], [place] [address]- 2285 Oct, [facility] [place] [facility] [address] [id number] [place] [address]- 6132 Sep, [facility] [place] [facility] [address] [id number] [place] [address]- 2274 Sep, [facility] [place] [facility] [address] [facility] [id number], [place] [address]- 2822 Sep, [facility] [place] [facility] [address] [facility] [id number] [place] [address]- 9431 Sep, [facility] [place] [facility] [address] [facility] [id number], [place] [address]- 3879 Sep, [facility] [place] [facility] [address] [facility] [id number], [place] [address]- 0387 Sep, [facility] [place] [facility] [address] [facility] [id number], [place] [address]- 2259 Aug, [facility] [place] [facility] [address] [id number], [place] [address]- 1297 31 Aug, 2013 [facility] [place] [facility] [address] [id number], [place] [address]- 7254 17 Aug, 2013 [facility] [place] [facility] [address] [facility] [id number], [place] [address]- 8715 17 Aug, 2013 [facility] [place] [facility] [address] [facility] [id number], [place] [address]- 1221 10 Aug, 2013 [facility] [place] [facility] [address] [id number] [place] [address]- 9291 10 Aug, 2012 [facility] [place] [facility] [address] [id number] [place] [address]- 5360 07 Aug, 2012 [facility] [place] [facility] [address] [id number] [place] [address]- 9038 02 Aug, 2012 [facility] [place] [facility] [address] [id number] [place] [address]- 6310 02 Aug, 2012 [facility] [place] [facility] [address] [id number] [place] [address]- 5511 25 Jul, 2012 [facility] [place] [facility] [address] [id number] [place] [address]- 6341 23 Sep, 2012 [facility] [place] [facility] [address] [id number] [place] [address]- 4340 21 Jul, 2012 [facility] [place] [facility] [address] [id number] [place] [address]- 6141 20 Jul, 2012 [facility] [place] [facility] [address] [id number] [place] [address]- 2542 18 Sep, 2012 [facility] [place] [facility] [address] [id number] [place] [address]- 7110 17 Sep, 2012 [facility] [place] [facility] [address] [id number] [place] [address]- 9775 16 Sep, 2012 [facility] [place] [facility] [address] [id number] [place] [address]- 2540 11 Sep, 2012 [facility] [place] [facility] [address] [id number] [place] [address] 2540 09 Sep, 2012 [facility] [place] [facility] [address] [id number] [place] [address] 2546 09 Sep, 2012 [facility] [place] [facility] [address] [id number] [place] [address]- 2546 06 Sep, 2012 [facility] [place] [facility] [address] [id number] [place] [address]- 7618 Jul, [facility] [place] [facility] [address] [id number] [place] [address]- 1198 Jun, [facility] [place] [facility] [address] [id number] [place] [address]- 0954 Jun, [facility] [place] [facility] [address] [id number] [place] [address]- 6981 Jun, [facility] [place] [facility] [address] [id number] [place] [address]- 6481 Jun, [facility] [place] [facility] [address] [id number] [place] [address]- 2117 Jun, [facility] [place] [facility] [address] [id number] [place] [address]- 7117 Jun, [facility] [place] [facility] [address] [id number] [place] [address]- 4988 Jun, [facility] [place] [facility] [address] [id number] [place] [address]- 1640 Jun, [facility] [place] [facility] [address] [id number] [place] [address]- 6769 Jun, [facility] [place] [facility] [address] [id number] [place] [address]- 8954 May, [facility] [place] [facility] [address] [id number] [place] [address]- 6034 May, [facility] [place] [facility] [address] [id number] [place] [address]- 3530 May, [facility] [place] [facility] [address] [id number] [place] [address]- 5141 May, [facility] [place] [facility] [address] [id number] [place] [address]- 2806 May, [facility] [place] [facility] [address] [id number] [place] [address]- 8879 May, [facility] [place] [facility] [address] [id number] [place] [address]- 3249 May, [facility] [place] [facility] [address] [id number] [place] [address]- 4635 March, [facility] [place] [facility] [address] [id number] [place] [address] 2546 March, [facility] [place] [facility] [address] [id number] [place] [address]- 3596 March, [facility] [place] [facility] [address] [id number] [place] [address] 2548 Dec, [facility] [place] [facility] [address] [id number] [place] [address]- 1488 Nov, [facility] [place] [facility] [address] [id number] [place] [address]- 2458 Aug, [facility] [place] [facility] [address] [id number] [place] [address]- 0822 Aug, [facility] [place] [facility] [address] [id number] [place] [address]- 3905 Jun, [facility] [place] [facility] [address] [id number] [place] [address]- 5455 Jun, [facility] [place] [facility] [address] [id number] [place] [address]- 0604 Jun, [facility] [place] [facility] [address] [id number] [place] [address]- 3131 Jun, [facility] [place] [facility] [address] [id number] [place] [address] 2542 May, [facility] [place] [facility] [address] [id number] [place] [address]- 1823 May, [facility] [place] [facility] [address] [id number] [place] [address]- 2546 May, [facility] [place] [facility] [address] [id number] [place] [address]- 5331 May, [facility] [place] [facility] [address] [id number] [place] [address]- 6385 May, [facility] [place] [facility] [address] [id number] [place] [address]- 7780 May, [facility] [place] [facility] [address] [id number] [place] [address] May, [facility] [place] [facility] [address] [id number] [place] [address] Apr, [facility] [address] [id number] [place] [address] Apr, [facility] [place] [facility] [address] [id number] [place] [address] Apr, [facility] [address] [id number] [place] [address] Apr, [facility] [address] [id number] [place] [address] March, [facility] [address] [id number] [place] [address] March, [facility] [address] [id number] [place] [address] March, [facility] [place] [facility] [address] [id number] [place] [address] March, [facility] [place] [facility] [address] [id number] [place] [address] March, [facility] [place] [facility] [address] [id number] [place] [address] March, [facility] [place] [facility] [address] [id number] [place] [address] March, [facility] [place] [facility] [address] [id number] [place] [address] March, [facility] [place] [facility] [address] [id number] [place] [address] March, [facility] [address] [id number] [place] [address] Feb, [facility] [place] [facility] [address] [id number] [place] [address] Feb, [facility] [place] [facility] [address] [id number] [place] [address] Jan, [facility] [place] [facility] [address] [id number] [place] [address] 27 Jan, 2012 [facility] [place] [facility] [address] [id number] [place] [address] Jan, [facility] [place] [facility] [address] [id number] [place] [address] 05 Jan, 2012 [facility] [place] [facility] [address] [facility] [id number] [place] [address] 20 Dec, 2011 [facility] [place] [facility] [address] [id number] [place] [address] 16 Dec, 2011 [facility] [place] [facility] [address] [facility] [id number] [place] [address] 15 Dec, 2011 [facility] [place] [facility] [address] [facility] [id number] [place] [address] Nov, [facility] [place] [facility] [address] [facility] [id number] [place] [address] 19 Oct, 2011 [facility] [place] [facility] [address] [id number] [place] [address] 15 Oct, 2011 [facility] [place] [facility] [address] [id number] [place] [address] 15 Oct, 2011 [facility] [place] [facility] [address] [id number] [place] [address] 14 Oct, 2011 [facility] [place] [facility] [address] [facility] [id number] [place] [address] 14 Oct, 2011 [facility] [place] [facility] [address] [id number] [place] [address] 12 Oct, 2011 [facility] [place] [facility] [address] [id number] [place] [address] Oct, [facility] [place] [facility] [address] [id number] [place] [address] Oct, [facility] [place] [facility] [address] [id number] [place] [address] Sep, [facility] [place] [facility] [address] [id number] [place] [address] 17 Sep, 2011 [facility] [place] [facility] [address] [id number] [place] [address] 14 Sep, 2011 [facility] [place] [facility] [address] [id number] [place] [address] Sep, [facility] [place] [facility] [address] [id number] [place] [address] Sep, [facility] [place] [facility] [address] [id number] [place] [address] Sep, [facility] [place] [facility] [address] [id number] [place] [address] Sep, [facility] [place] [facility] [address] [id number] [place] [address] Sep, [facility] [place] [facility] [address] [id number] [place] [address] Sep, [facility] [place] [facility] [address] [id number] [place] [address] 24 Aug, 2011 [facility] [place] [facility] [address] [id number] [place] [address] 15 Jul, 2011 [facility] [place] [facility] [address] [id number] [place] [address] 31 Oct, 2009 [facility] [place] [facility] [address] [id number] [place] [address] Oct, [facility] [address] [facility] [id number] [place] [address] Oct, IMMUNIZATIONS No Known Immunizations SOCIAL HISTORY Never Assessed REASON FOR VISIT Controlled Med Refill 01/16/18 PLAN OF CARE VITAL SIGNS MEDICATIONS Medication [...]
--- OUTSIDE RECORDS SUMMARY | 2018-06-06 09:09 | XMS REPORT ---
Author Author ALAN CARABALLO [facility] Address [address] [place] [address] Care Team Providers Care Clinical Physician Assistant Name Role Phone ALAN CARABALLO Unavailable PROBLEMS Type Condition ICD9-CM Code IDX87-SE Code Onset Dates Condition Status SNOMED Code Problem Type 1 diabetes mellitus without complications E10.9 Active 046371164 Problem Other insomnia G47.09 Active 346942985 Problem Low back pain M54.5 Active 497325590 Problem Migraine with aura and without status migrainosus, not intractable G43.109 Active 3411098 Problem Menorrhagia with regular cycle N92.0 Active 660604631 Problem Chronic kidney disease, stage 4 (severe) N18.4 Active 039850975 Problem Migraine without aura and without status migrainosus, not intractable G43.009 Active 723456555 Problem Autonomic neuropathy G90.9 Active 565457296 Problem Dysthymia F34.1 Active 76758588 Problem Type 1 diabetes mellitus with hypoglycemia without coma E10.649 Active 00948359 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 29196270 Problem Type 1 diabetes mellitus with hyperglycemia E10.65 Active 36759841 Problem Migraine G43.909 Active 49278509 Problem Irritable bowel K58.9 Active 11509311 Problem Proteinuria, unspecified R80.9 Active 19579357 Problem Anemia, unspecified D64.9 Active 561882812 Problem Chronic kidney disease, unspecified N18.9 Active 590976432 Problem Restless legs syndrome G25.81 Active 702810801 ALLERGIES Substance Reaction Event Type Date Status Lisinopril Unknown Drug Allergy Sep, Active Gabapentin Unknown Drug Allergy Sep, Active Cozaar 25 Mg Tablet Unknown Non Drug Allergy Sep, Active Niacin 500 Mg Tablet Unknown Non Drug Allergy Sep, Active ENCOUNTERS Encounter Location Date Diagnosis [facility] [address] [facility] [id number] [address] March, [facility] [id number] [place] [address] 94262- 2167 March, Low back pain M54.5 [facility] [id number] [place] [address] 28809- 6279 March, [facility] [id number] [place] [address] 44159- 0785 Feb, [facility] [id number] [place] [address] 95749- 3953 Feb, Low back pain M54.5 [facility] [address] 55021- 2581 Jan, Restless legs syndrome G25.81 [facility] [id number] [place] [address] 93951- 4304 Jan, Low back pain M54.5 [facility] [id number] [place] [address] 42574- 1534 Jan, [facility] [id number] [place] [address] 89742- 7511 Jan, Type 1 diabetes mellitus without complications E10.9 ; Low back pain M54.5 ; Cough R05 ; Diarrhea, unspecified type R19.7 ; Migraine without aura and without status migrainosus, not intractable G43.009 and Uses control Z30.9 [facility] [id number] [place] [address] 06073- 8343 Dec, Low back pain M54.5 [facility] [id number] [place] [address] 39480- 3777 Dec, [facility] [id number] [place] [address] 48233- 4512 Nov, Well woman exam Z01.419 ; Menorrhagia with regular cycle N92.0 ; Vaginal dryness N89.8 and Migraine with aura and without status migrainosus, not intractable G43.109 [facility] [id number] [place] [address] 14572- 6340 Nov, [facility] [address] 24176- 6481 Nov, Low back pain M54.5 [facility] [address] 66880- 4091 Oct, Low back pain M54.5 [facility] [address] 86477- 6349 Oct, Migraine without aura and without status migrainosus, not intractable G43.009 [place] [address] 83207- 1126 Sep, Low back pain M54.5 [place] [address] 37964- 0590 Sep, [facility] [address] 88836- 3305 Sep, Migraine without aura and without status migrainosus, not intractable G43.009 [place] [address] 89559- 9809 Sep, Type 1 diabetes mellitus with hypoglycemia without coma E10.649 ; Anemia D64.9 ; Migraine without aura and without status migrainosus, not intractable G43.009 ; Chronic kidney disease, unspecified N18.9 ; Autonomic neuropathy G90.9 and Postural hypotension I95.1 [facility] [id number] [place] [address] 01755- 6203 Sep, Low back pain M54.5 [place] [address] 20320- 3230 Aug, Low back pain M54.5 [facility] [id number] [place] [address] 61104- 9005 14 Jul, 2017 [place] [address] [id number] 2546 Jul, Low back pain M54.5 [facility] [address] [place] [address] 64214- 8958 Jun, [facility] [id number] [place] [address] 50336- 5641 Jun, Low back pain M54.5 [facility] [id number] [place] [address] 70598- 4459 Jun, Migraine without aura and without status migrainosus, not intractable G43.009 [facility] [address] [place] [address] 44875- 0831 Jun, Type 1 diabetes mellitus with hyperglycemia E10.65 ; Dysthymia F34.1 and Migraine without aura and without status migrainosus, not intractable G43.009 [facility] [id number] [place] [address] 88582- 0768 Jun, [facility] [address] [place] [address] 28407- 6736 May, Type 1 diabetes mellitus with hyperglycemia E10.65 [facility] [id number] [place] [address] 21856- 5163 May, Low back pain M54.5 [facility] [address] [place] [address] 92232- 7997 May, Type 1 diabetes mellitus with hyperglycemia E10.65 [facility] [address] [place] [address] 15636- 7498 Apr, [facility] [address] [place] [address] 21542- 2997 Apr, Chronic kidney disease, stage 4 (severe) N18.4 [facility] [address] [place] [address] 61168- 0272 Apr, Low back pain M54.5 [facility] [id number] [place] [address] 41197- 9248 March, [facility] [address] [place] [address] 16532- 6200 March, Low back pain M54.5 [facility] [id number] [place] [address] 67309- 7238 Feb, [facility] [id number] [place] [address] 42277- 9135 Feb, [facility] [id number] [place] [address] 09195- 6506 Feb, Low back pain M54.5 [facility] [id number] [place] [address] 42714- 5223 Feb, Low back pain M54.5 [facility] [id number] [place] [address] 11206- 5507 Feb, Migraine without aura and without status migrainosus, not intractable G43.009 [facility] [id number] [place] [address] 98095- 1947 Feb, [facility] [id number] [place] [address] 59542- 8576 Jan, Low back pain M54.5 [facility] [id number] [place] [address] 89722- 7592 Jan, Type 1 diabetes mellitus without complications E10.9 ; Anemia D64.9 ; Chronic kidney disease, unspecified N18.9 ; Migraine without aura and without status migrainosus, not intractable G43.009 and Other insomnia G47.09 [facility] [address] [place] [address] 78132- 5650 Jan, [facility] [id number] [place] [address] 00958- 0387 Dec, Low back pain M54.5 [facility] [id number] [place] [address] 16327- 7042 Dec, [facility] [id number] [place] [address] 30169- 0840 Dec, [facility] [address] 86021- 1403 Dec, Shortness of breath R06.02 ; Type 1 diabetes mellitus without complications E10.9 and Leg swelling M79.89 [place] [address] 33177- 0130 Nov, Low back pain M54.5 [place] [address] 38881- 8684 Nov, Viral syndrome B34.9 [place] [address] 91501- 2249 Oct, Low back pain M54.5 [place] [address] 71047- 1471 Oct, [facility] [address] 55416- 6128 Oct, Low back pain M54.5 [place] [address] 19670- 3230 Sep, [facility] [id number] [place] [address] 39454- 2579 Sep, Fatigue, unspecified type R53.83 ; Type 1 diabetes mellitus without complications E10.9 and Anemia D64.9 [facility] [id number] [place] [address] 22611- 3024 Sep, Low back pain M54.5 [facility] [address] 13896- 4231 Sep, Type 1 diabetes mellitus with hyperglycemia E10.65 [place] [id number] [place] [address] 00908- 0148 Aug, Type 1 diabetes mellitus without complications E10.9 [place] [address] [place] [address]- 9069 Aug, [facility] [id number] [place] [address] 00003- 8275 Aug, [facility] [id number] [place] [address] 44408- 0947 Jul, [facility] [id number] [place] [address] 30407- 0960 14 Jul, 2016 Low back pain M54.5 [facility] [id number] [place] [address] 76446- 3428 12 Jul, 2016 Hyperkalemia, diminished renal excretion E87.5 [facility] [id number] [place] [address] 81671- 6738 09 Jul, 2016 Hyperkalemia, diminished renal excretion E87.5 [facility] [id number] [place] [address] 90241- 4243 Jun, [facility] [id number] [place] [address] 93027- 2337 Jun, Low back pain M54.5 [facility] [id number] [place] [address] 82669- 7004 Jun, Anemia D64.9 ; Autonomic neuropathy G90.9 and Postural hypotension I95.1 [facility] [id number] [place] [address] 41801- 8399 Jun, [facility] [id number] [place] [address] 60876- 6979 May, Type 1 diabetes mellitus with complications E10.8 and Anemia D64.9 [facility] [id number] [place] [address] 78244- 1045 May, Low back pain M54.5 [facility] [id number] [place] [address] 09760- 0830 Apr, [facility] [id number] [place] [address] 74811- 6752 Apr, Low back pain M54.5 [facility] [address] [place] [address]- 3759 Apr, [facility] [address] [place] [address]- 5057 Apr, [facility] [address] [place] [address] 98864- 8101 March, Low back pain M54.5 and Other chronic pain G89.29 [facility] [address] [place] [address]- 1370 March, Type 1 diabetes mellitus without complications E10.9 [facility] [address] [place] [address] 91290- 9746 March, [facility] [id number] [place] [address] 58655- 8347 March, [facility] [address] [place] [address]- 7756 Feb, [facility] [address] [place] [address] 60923- 5199 Feb, Type 1 diabetes mellitus without complications E10.9 [facility] [address] [place] [address]- 3017 Feb, Trochanteric bursitis, right hip M70.61 [facility] [address] [place] [address]- 5446 Jan, [facility] [address] [place] [address]- 0075 Jan, [facility] [address] [place] [address]- 7211 Dec, Type 1 diabetes mellitus with complications E10.8 [facility] [address] [place] [address]- 9161 Dec, [facility] [id number] [place] [address] 69076- 4217 10 Dec, 2015 Anemia D64.9 ; Autonomic neuropathy G90.9 and Postural hypotension I95.1 [facility] [id number] [place] [address] 15981- 6973 03 Dec, 2015 [facility] [id number] [place] [address] 96601- 2075 Nov, Sore throat J02.9 [facility] [id number] [place] [address] 23540- 9332 Nov, Type 1 diabetes mellitus with complications E10.8 [place] [address] 48963- 2553 Nov, 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 ; Proteinuria, unspecified R80.9 and Chronic kidney disease, unspecified N18.9 [place] [address] 70407- 6519 Nov, [place] [address] 18565- 9753 Nov, Trochanteric bursitis, right hip M70.61 [place] [id number] [place] [address] 65911- 0594 Nov, [place] [id number] [place] [address] 83603- 2370 Oct, [facility] [id number] [place] [address] 66312- 3589 Oct, [facility] [id number] [place] [address] 25475- 6526 Oct, [facility] [id number] [place] [address] 19342- 6648 Sep, [facility] [id number] [place] [address] 36027- 1189 Sep, [facility] [address] [place] [address]- 9653 Sep, Type 2 diabetes mellitus with complication E11.8 and Right hip pain M25.551 [facility] [id number] [place] [address] 46391- 3305 Sep, [facility] [id number] [place] [address] 01973- 2284 Aug, [facility] [id number] [place] [address] 52670- 8727 Aug, [facility] [id number] [place] [address] 03281- 5059 Aug, [facility] [id number] [place] [address] 19557- 0738 Aug, Type 1 diabetes mellitus without complications E10.9 [facility] [id number] [place] [address] 98603- 3558 16 Jul, 2015 [facility] [id number] [place] [address] 43161- 6115 15 Jul, 2015 [facility] [id number] [place] [address] 50513- 3195 Jul, [facility] [id number] [place] [address] 64328- 7812 Jun, [facility] [id number] [place] [address] 86111- 9614 Jun, [facility] [id number] [place] [address] 37465- 5538 Jun, [facility] [id number] [place] [address] 00151- 6390 Jun, [facility] [id number] [place] [address] 20512- 0493 Jun, [facility] [address] [place] [address] 33433- 5371 Jun, Diabetes mellitus without mention of complication, type I [ juvenile type], not stated as uncontrolled 250.01 [facility] [id number] [place] [address] 11346- 1505 May, [facility] [id number] [place] [address] 39693- 4853 May, [facility] [id number] [place] [address] 44332- 1681 May, [facility] [address] 33119- 4557 May, Autonomic neuropathy 337.9 ; Postural hypotension 458.0 and Anemia 285.9 [facility] [id number] [place] [address] 58490- 1008 May, [facility] [id number] [place] [address] 08694- 8704 Apr, [facility] [id number] [place] [address] 75756- 8876 Apr, [facility] [id number] [place] [address] 68379- 3867 Apr, [facility] [id number] [place] [address] 46611- 7611 Apr, [facility] [id number] [place] [address] 43659- 4228 Apr, [facility] [id number] [place] [address] 50929- 8805 March, [facility] [id number] [place] [address] 49743- 4119 March, [facility] [id number] [place] [address] 91109- 3296 March, [facility] [id number] [place] [address] 28711- 8924 March, [facility] [id number] [place] [address] 24745- 2546 March, [facility] [place] [facility] [address] [id number] [place] [address]- 4926 29 Feb, 2015 [facility] [place] [facility] [address] [id number] [place] [address]- 7242 Feb, [facility] [place] [facility] [address] [id number] [place] [address]- 9191 Feb, [facility] [place] [facility] [address] [id number] [place] [address]- 5419 30 Jan, 2015 [facility] [place] [facility] [address] [id number] [place] [address]- 0849 Jan, [facility] [place] [facility] [address] [id number] [place] [address]- 2486 Jan, [facility] [place] [facility] [address] [id number] [place] [address]- 2331 Jan, [facility] [place] [facility] [address] [id number] [place] [address]- 5601 Jan, [facility] [place] [facility] [address] [id number] [place] [address]- 7176 Jan, [facility] [place] [facility] [address] [id number] [place] [address]- 0207 Jan, [facility] [place] [facility] [address] [id number] [place] [address]- 2765 Jan, [facility] [place] [facility] [address] [id number] [place] [address]- 0676 Jan, [facility] [place] [facility] [address] [id number] [place] [address]- 5708 Jan, [facility] [place] [facility] [address] [id number] [place] [address]- 3817 Jan, [facility] [place] [facility] [address] [id number] [place] [address]- 4930 Jan, [facility] [place] [facility] [address] [id number] [place] [address]- 3793 Jan, [facility] [place] [facility] [address] [id number] [place] [address]- 4626 Dec, 2014 [facility] [place] [facility] [address] [id number] [place] [address]- 2136 Dec, 2014 [facility] [place] [facility] [address] [id number] [place] [address]- 2520 Dec, 2014 [facility] [place] [facility] [address] [id number] [place] [address]- 0332 Dec, 2014 [facility] [place] [facility] [address] [id number] [place] [address]- 8313 Dec, 2014 [facility] [place] [facility] [address] [id number] [place] [address]- 6426 Dec, 2014 [facility] [place] [facility] [address] [id number] [place] [address]- 1031 Dec, [facility] [place] [facility] [address] [id number] [place] [address]- 7283 Dec, [facility] [place] [facility] [address] [facility] [id number] [place] [address]- 7732 Nov, [facility] [place] [facility] [address] [id number] [place] [address]- 1319 Nov, [facility] [place] [facility] [address] [id number] [place] [address]- 2323 Nov, [facility] [place] [facility] [address] [id number] [place] [address]- 2714 Nov, [facility] [place] [facility] [address] [id number] [place] [address]- 9048 Nov, [facility] [place] [facility] [address] [id number] [place] [address]- 3914 Nov, [facility] [place] [facility] [address] [id number] [place] [address]- 8153 Nov, [facility] [place] [facility] [address] [id number] [place] [address]- 8033 Nov, [facility] [place] [facility] [address] [id number] [place] 7396 Nov, [facility] [place] [facility] [address] [id number] [place] [address]- 4369 Oct, [facility] [place] [facility] [address] [id number] [place] [address]- 0811 Oct, [facility] [place] [facility] [address] [id number] [place] [address]- 4594 Oct, [facility] [place] [facility] [address] [id number] [place] [address]- [address] Oct, [facility] [place] [facility] [address] [id number] [place] [address] Oct, [facility] [place] [facility] [address] [id number] [place] [address] Oct, [facility] [place] [facility] [address] [id number] [place] [address] Oct, [facility] [place] [facility] [address] [id number] [place] [address] Oct, [facility] [place] [facility] [address] [id number] [place] [address] Oct, [facility] [place] [facility] [address] [id number] [place] [address] Oct, [facility] [place] [facility] [address] [id number] [place] [address] Oct, [facility] [place] [facility] [address] [id number] [place] [address] Oct, [facility] [place] [facility] [address] [id number] [place] [address] Oct, [facility] [place] [facility] [address] [id number] [place] [address] Oct, [facility] [place] [facility] [address] [id number] [place] [address] Sep, [facility] [place] [facility] [address] [id number] [place] [address] Sep, [facility] [place] [facility] [address] [id number] [place] [address] Sep, [facility] [place] [facility] [address] [id number] [place] [address] Sep, [facility] [place] [facility] [address] [id number] [place] [address] Aug, [facility] [place] [facility] [address] [id number] [place] [address] Aug, [facility] [place] [facility] [address] [id number] [place] [address] Aug, [facility] [place] [facility] [address] [id number] [place] [address] Aug, [facility] [place] [facility] [address] [id number] [place] [address] Aug, [facility] [place] [facility] [address] [facility] [id number] [place] [address] Aug, [facility] [place] [facility] [address] [id number] [place] [address] Aug, [facility] [place] [facility] [address] [id number] [place] [address] Aug, [facility] [place] [facility] [address] [id number] [place] [address] Aug, [facility] [place] [facility] [address] [id number] [place] [address] Aug, [facility] [place] [facility] [address] [id number] [place] [address] Jul, [facility] [place] [facility] [address] [id number] [place] [address] 29 Sep, 2013 [facility] [place] [facility] [address] [id number] [place] [address] 29 Sep, 2013 [facility] [place] [facility] [address] [id number] [place] [address] 29 Sep, 2013 [facility] [place] [facility] [address] [id number] [place] [address] 22 Sep, 2013 [facility] [place] [facility] [address] [id number] [place] [address] 22 Jul, 2013 [facility] [place] [facility] [address] [id number] [place] [address]- [address] 19 Jul, 2013 [facility] [place] [facility] [address] [id number] [place] [address] 19 Jul, 2013 [facility] [place] [facility] [address] [id number] [place] [address] 11 Jul, 2013 [facility] [place] [facility] [address] [id number] [place] [address]- [address] 11 Jul, 2013 [facility] [place] [facility] [address] [id number] [place] [address] 10 Jul, 2013 [facility] [place] [facility] [address] [id number] [place] [address] 10 Jul, 2013 [facility] [place] [facility] [address] [id number] [place] [address] 08 Sep, 2013 [facility] [place] [facility] [address] [id number] [place] [address] 08 Sep, 2013 [facility] [place] [facility] [address] [id number] [place] [address] 8970 03 Sep, 2013 [facility] [place] [facility] [address] [id number] [place] [address] 03 Sep, 2013 [facility] [place] [facility] [address] [id number] [place] [address] 0810 Jul, [facility] [place] [facility] [address] [id number] [place] [address] 4112 Jul, [facility] [place] [facility] [address] [id number] [place] [address]- 6194 Jun, [facility] [place] [facility] [address] [id number] [place] [address] 3804 Jun, [facility] [place] [facility] [address] [id number] [place] [address]- 3430 Jun, [facility] [place] [facility] [address] [id number] [place] [address]- 9236 Jun, [facility] [place] [facility] [address] [id number] [place] [address]- 9827 Jun, [facility] [place] [facility] [address] [id number] [place] [address]- 8848 Jun, [facility] [place] [facility] [address] [id number] [place] [address]- 4389 Jun, [facility] [place] [facility] [address] [id number] [place] [address]- 6457 Jun, [facility] [place] [facility] [address] [id number] [place] [address]- 4954 Jun, [facility] [place] [facility] [address] [id number] [place] [address]- 8746 Jun, [facility] [place] [facility] [address] [id number] [place] [address]- 2646 Jun, [facility] [place] [facility] [address] [id number] [place] [address]- 5636 Jun, [facility] [place] [facility] [address] [id number] [place] [address]- 9884 Jun, [facility] [place] [facility] [address] [id number] [place] [address]- 6505 Jun, [facility] [place] [facility] [address] [id number] [place] [address]- 4616 Jun, [facility] [place] [facility] [address] [id number] [place] [address]- 4098 May, [facility] [place] [facility] [address] [id number] [place] [address]- 3650 May, [facility] [place] [facility] [address] [id number] [place] [address]- 8266 May, [facility] [place] [facility] [address] [id number] [place] [address]- 8022 May, [facility] [place] [facility] [address] [id number] [place] [address]- 7467 May, [facility] [place] [facility] [address] [id number] [place] [address]- 2188 May, [facility] [place] [facility] [address] [id number] [place] [address]- 7599 May, [facility] [place] [facility] [address] [id number] [place] [address]- 0190 May, [facility] [place] [facility] [address] [id number] [place] [address]- 4266 Apr, [facility] [place] [facility] [address] [id number] [place] [address]- 4306 Apr, [facility] [place] [facility] [address] [id number] [place] [address]- 7807 Apr, [facility] [place] [facility] [address] [id number] [place] [address]- 1663 Apr, [facility] [place] [facility] [address] [id number] [place] [address]- 2445 Apr, [facility] [place] [facility] [address] [id number] [place] [address]- 7149 Apr, [facility] [place] [facility] [address] [id number] [place] [address]- 5880 Apr, [facility] [place] [facility] [address] [id number] [place] [address]- 4576 Apr, [facility] [place] [facility] [address] [id number] [place] [address]- 8134 Apr, [facility] [place] [facility] [address] [id number] [place] [address]- 2442 Apr, [facility] [place] [facility] [address] [id number] [place] [address]- 2879 Apr, [facility] [place] [facility] [address] [id number] [place] [address]- 1902 Apr, [facility] [place] [facility] [address] [id number] [place] [address]- 5975 Apr, [facility] [place] [facility] [address] [id number] [place] [address]- 9975 Apr, [facility] [place] [facility] [address] [id number] [place] [address]- 7585 Apr, [facility] [place] [facility] [address] [id number] [place] [address]- 4531 Apr, [facility] [place] [facility] [address] [id number] [place] [address]- 2082 Apr, [facility] [place] [facility] [address] [id number] [place] [address]- 1753 Apr, [facility] [place] [facility] [address] [id number] [place] [address]- 0970 March, [facility] [place] [facility] [address] [id number] [place] [address]- 5977 March, [facility] [place] [facility] [address] [id number] [place] [address]- 4850 March, [facility] [place] [facility] [address] [id number] [place] [address]- 1110 March, [facility] [place] [facility] [address] [id number] [place] [address]- 3550 March, [facility] [place] [facility] [address] [id number] [place] [address]- 0284 March, [facility] [place] [facility] [address] [id number] [place] [address]- 1217 March, [facility] [place] [facility] [address] [id number] [place] [address]- 9906 March, [facility] [place] [facility] [address] [id number] [place] [address]- 8811 March, [facility] [place] [facility] [address] [id number] [place] [address]- 2808 Feb, [facility] [place] [facility] [address] [id number] [place] [address]- 8789 Feb, [facility] [place] [facility] [address] [id number] [place] [address]- 5425 Feb, [facility] [place] [facility] [address] [id number] [place] [address]- 4961 Feb, [facility] [place] [facility] [address] [id number] [place] [address]- 3396 Feb, [facility] [place] [facility] [address] [id number] [place] [address]- 1262 Feb, [facility] [place] [facility] [address] [id number] [place] [address]- 1266 Feb, [facility] [place] [facility] [address] [id number] [place] [address]- 6162 Feb, [facility] [place] [facility] [address] [id number] [place] [address]- 5394 Feb, [facility] [place] [facility] [address] [id number] [place] [address]- 5297 Feb, [facility] [place] [facility] [address] [id number] [place] [address]- 7914 Feb, [facility] [place] [facility] [address] [id number] [place] [address]- 4814 Feb, [facility] [place] [facility] [address] [id number] [place] [address]- 5605 Feb, [facility] [place] [facility] [address] [id number] [place] [address]- 4535 Jan, [facility] [place] [facility] [address] [id number] [place] [address]- 8068 Jan, [facility] [place] [facility] [address] [id number] [place] [address]- 5739 Jan, [facility] [place] [facility] [address] [id number] [place] [address]- 6331 Jan, [facility] [place] [facility] [address] [id number] [place] [address]- 3412 Jan, [facility] [place] [facility] [address] [id number] [place] [address]- 4596 Jan, [facility] [place] [facility] [address] [id number] [place] [address]- 3463 Jan, [facility] [place] [facility] [address] [id number] [place] [address]- 0209 Jan, [facility] [place] [facility] [address] [id number] [place] [address]- 6805 Dec, [facility] [place] [facility] [address] [id number] [place] [address]- 4733 Dec, [facility] [place] [facility] [address] [id number] [place] [address]- 0096 Dec, [facility] [place] [facility] [address] [id number] [place] [address]- 1886 Dec, [facility] [place] [facility] [address] [id number] [place] [address]- 5496 Dec, [facility] [place] [facility] [address] [id number] [place] [address]- 7617 17 Dec, 2013 [facility] [address] [id number] [place] [address]- 4546 Dec, [facility] [place] [facility] [address] [id number] [place] [address]- 3056 Dec, [facility] [place] [facility] [address] [id number] [place] [address]- 2526 Dec, [facility] [place] [facility] [address] [id number] [place] [address]- 6331 Dec, [facility] [place] [facility] [address] [id number] [place] [address]- 6365 Nov, [facility] [place] [facility] [address] [id number] [place] [address]- 1483 Nov, [facility] [place] [facility] [address] [id number] [place] [address]- 7116 Nov, [facility] [place] [facility] [address] [id number] [place] [address]- 9206 Nov, [facility] [place] [facility] [address] [id number] [place] [address]- 5479 Nov, [facility] [place] [facility] [address] [id number] [place] [address]- 2325 Nov, [facility] [place] [facility] [address] [id number] [place] [address]- 6380 Nov, [facility] [place] [facility] [address] [id number] [place] [address]- 1806 Nov, [facility] [place] [facility] [address] [id number] [place] [address]- 7425 Nov, [facility] [place] [facility] [address] [id number] [place] [address]- 5824 Nov, [facility] [place] [facility] [address] [id number] [place] [address]- 6758 Oct, [facility] [place] [facility] [address] [id number] [place] [address]- 3483 19 Oct, 2013 [facility] [address] [id number] [place] [address]61 18 Oct, 2013 [facility] [address] [id number] [place] [address]- 9214 18 Oct, 2013 [facility] [place] [facility] [address] [id number] [place] [address]- 8391 17 Oct, 2013 [facility] [address] [id number] [place] [address]- 2074 17 Oct, 2013 [facility] [address] [id number] [place] 3785 16 Oct, 2013 [facility] [address] [id number] [place] [address]- 9963 16 Oct, 2013 [facility] [address] [id number] [place] [address]- 2073 Oct, [facility] [place] [facility] [address] [id number] [place] [address]- 0147 Oct, [facility] [place] [facility] [address] [id number] [place] [address]600 Oct, [facility] [place] [facility] [address] [id number] [place] [address]- 4149 Oct, [facility] [place] [facility] [address] [id number] [place] [address]- 3032 Oct, [facility] [place] [facility] [address] [id number] [place] [address]- 7493 Oct, [facility] [place] [facility] [address] [id number] [place] [address]- 7921 Sep, [facility] [place] [facility] [address] [id number] [place] [address]- 3088 Sep, [facility] [place] [facility] [address] [id number] [place] [address]- 1789 Sep, [facility] [place] [facility] [address] [id number] [place] [address]- 1689 Sep, [facility] [place] [facility] [address] [id number] [place] 9379 Sep, [facility] [place] [facility] [address] [id number] [place] [address]- 6384 Sep, [facility] [place] [facility] [address] [id number] [place] [address]- 2728 Aug, [facility] [place] [facility] [address] [id number] [place] [address]- 0459 Aug, [facility] [place] [facility] [address] [id number] [place] [address]- 9307 Aug, [facility] [place] [facility] [address] [id number] [place] [address]- 8408 Aug, [facility] [place] [facility] [address] [id number] [place] [address]- 5599 Aug, [facility] [place] [facility] [address] [id number] [place] [address]- 1580 Aug, [facility] [place] [facility] [address] [id number] [place] [address]- 6722 Aug, [facility] [place] [facility] [address] [id number] [place] [address]- 3860 Aug, [facility] [place] [facility] [address] [id number] [place] [address]- 6631 Aug, [facility] [place] [facility] [address] [id number] [place] [address]- 5171 25 Jul, 2013 [facility] [place] [facility] [address] [id number] [place] 6247 23 Jul, 2013 [facility] [place] [facility] [address] [id number] [place] [address]- 7699 Jul, [facility] [place] [facility] [address] [id number] [place] [address]- 5649 20 Jul, 2012 [facility] [place] [facility] [address] [id number] [place] [address]- 0620 18 Sep, 2012 [facility] [place] [facility] [address] [id number] [place] [address]- 2546 17 Jul, 2012 [facility] [place] [facility] [address] [id number] [place] [address] 2546 16 Sep, 2012 [facility] [place] [facility] [address] [id number] [place] [address]- 2541 11 Jul, 2012 [facility] [place] [facility] [address] [id number] [place] [address]- 6154 09 Jul, 2012 [facility] [place] [facility] [address] [id number] [place] [address]- 2547 09 Jul, 2012 [facility] [place] [facility] [address] [id number] [place] [address]- 0398 06 Jul, 2012 [facility] [place] [facility] [address] [id number] [place] [address]- 8166 03 Jul, 2012 [facility] [place] [facility] [address] [id number] [place] [address]- 9322 Jun, [facility] [place] [facility] [address] [id number] [place] [address]- 7832 Jun, [facility] [place] [facility] [address] [id number] [place] [address]- 2544 Jun, [facility] [place] [facility] [address] [id number] [place] [address]- 2547 Jun, [facility] [place] [facility] [address] [id number] [place] [address]- 6091 Jun, [facility] [place] [facility] [address] [id number] [place] [address]- 2546 Jun, [facility] [place] [facility] [address] [id number] [place] [address]- 2543 Jun, [facility] [address] [id number] [place] [address]- 7550 Jun, [facility] [place] [facility] [address] [id number] [place] [address]- 0744 Jun, [facility] [place] [facility] [address] [id number] [place] [address]- 5948 May, [facility] [place] [facility] [address] [id number] [place] [address]- 1868 May, [facility] [place] [facility] [address] [id number] [place] [address]- 1977 May, [facility] [place] [facility] [address] [id number] [place] [address]- 7080 May, [facility] [place] [facility] [address] [id number] [place] [address]- 0558 May, [facility] [place] [facility] [address] [id number] [place] [address]- 5685 May, [facility] [place] [facility] [address] [id number] [place] [address]- 2630 May, [facility] [place] [facility] [address] [id number] [place] [address]- 6923 March, [facility] [place] [facility] [address] [id number] [place] [address]- 9349 March, [facility] [place] [facility] [address] [id number] [place] [address]- 7157 March, [facility] [place] [facility] [address] [id number] [place] [address]- 2237 Dec, [facility] [place] [facility] [address] [id number] [place] [address]- 6983 Nov, [facility] [place] [facility] [address] [id number] [place] [address]- 2524 Aug, [facility] [place] [facility] [address] [id number] [place] [address]- 7381 Aug, [facility] [place] [facility] [address] [id number] [place] [address]- 2295 Jun, [facility] [place] [facility] [address] [id number] [place] [address]- 2772 Jun, [facility] [place] [facility] [address] [id number] [place] [address]- 9729 Jun, [facility] [place] [facility] [address] [id number] [place] [address]- 3890 Jun, [facility] [place] [facility] [address] [id number] [place] [address]- 8105 May, [facility] [place] [facility] [address] [id number] [place] [address]- 3830 May, [facility] [place] [facility] [address] [id number] [place] [address]- 1406 May, [facility] [place] [facility] [address] [id number] [place] [address]- 8503 May, [facility] [place] [facility] [address] [id number] [place] [address]- 0153 May, [facility] [place] [facility] [address] [id number] [place] [address]- 5684 May, [facility] [place] [facility] [address] [id number] [place] [address]- 6697 May, [facility] [place] [facility] [address] [id number] [place] [address]- 5113 Apr, [facility] [place] [facility] [address] [id number] [place] [address]- 2766 Apr, [facility] [place] [facility] [address] [id number] [place] [address]- 5019 Apr, [facility] [place] [facility] [address] [id number] [place] [address]- 9824 Apr, [facility] [place] [facility] [address] [id number] [place] [address]- 2090 March, [facility] [address] [id number] [place] [address]- 7243 March, [facility] [place] [facility] [address] [id number] [place] [address]- 3057 March, [facility] [address] [id number] [place] [address]- 2541 March, [facility] [address] [id number] [place] [address]- 9576 March, [facility] [address] [id number] [place] [address]- 3887 March, [facility] [address] [id number] [place] [address]- 6642 March, [facility] [address] [id number] [place] [address]- 7391 March, [facility] [address] [id number] [place] [address]- 8296 March, [facility] [address] [id number] [place] [address]- 4214 Feb, [facility] [place] [facility] [address] [id number] [place] [address]- 1086 Feb, [facility] [place] [facility] [address] [id number] [place] [address]- 9116 Jan, [facility] [place] [facility] [address] [id number] [place] [address]- 0637 27 Jan, 2012 [facility] [place] [facility] [address] [id number] [place] [address]- 5199 16 Jan, 2012 [facility] [place] [facility] [address] [id number] [place] [address]- 0481 05 Jan, 2012 [facility] [place] [facility] [address] [id number] [place] [address]- 2248 20 Dec, 2011 [facility] [address] [id number] [place] [address]- 7746 16 Dec, 2011 [facility] [place] [facility] [address] [id number] [place] [address]- 3406 15 Dec, 2011 [facility] [address] [id number] [place] [address]- 5471 30 Nov, 2011 [facility] [address] [id number] [place] [address]- 1749 19 Oct, 2011 [facility] [address] [id number] [place] [address]- 9658 15 Oct, 2011 [facility] [place] [facility] [address] [id number] [place] [address]- 1436 15 Oct, 2011 [facility] [address] [id number] [place] [address]- 0839 14 Oct, 2011 [facility] [place] [facility] [address] [id number] [place] [address]- 4838 14 Oct, 2011 [facility] [address] [id number] [place] [address]- 2832 Oct, [facility] [place] [facility] [address] [id number] [place] [address]- 0005 09 Oct, 2011 [facility] [address] [id number] [place] [address]- 7561 Oct, [facility] [place] [facility] [address] [id number] [place] [address] 22 Sep, 2011 [facility] [place] [facility] [address] [id number] [place] [address] 17 Sep, 2011 [facility] [place] [facility] [address] [id number] [place] [address] 14 Sep, 2011 [facility] [place] [facility] [address] [id number] [place] [address] 10 Sep, 2011 [facility] [place] [facility] [id number] [address] Sep, [facility] [id number] [place] [address] Sep, [facility] [id number] [address] Sep, [facility] [id number] [address] Sep, [facility] [id number] [address] Sep, [facility] [id number] [place] [address] Aug, [facility] [id number] [address] Jul, [facility] [id number] [place] [address] Oct, [facility] [id number] [place] [address] Oct, [facility] [id number] [place] [address] Oct, IMMUNIZATIONS No Known Immunizations SOCIAL HISTORY Never Assessed REASON FOR VISIT DM, with no other concerns-Moris PULIDO PLAN OF CARE Activity Details Follow Up 3 Months Reason:DM VITAL SIGNS Height 62 in 2017-10-07 Weight 123.6 lbs 2017-10-07 Temperature 98.5 degrees Fahrenheit 2017-10-07 Heart Rate 82 bpm 2017-10-07 Respiratory Rate 18 2017-10-07 BMI 22.60 kg/m2 2017-10-07 Blood pressure systolic 106 mmHg 2017-10-07 Blood pressure diastolic 68 mmHg 2017-10-07 MEDICATIONS Medication Instructions Dosage Frequency Start Date End Date Duration Status Aranesp (Alb Free) SureClick Active Celexa 20 MG 1 tablet by Oral route 1 time per day 90 Active Vitamin D (Cholecalciferol) 400 UNIT Orally Once a day 1 capsule 24h Active fludrocortisone 0.1 mg take 1/2 tablet by Oral route 1 time per day Nov, Active Geoff Contour Next Test - subcutaneously 10 times daily (Has insulin pump) test blood sugar 30 days Active NovoLog 100 UNIT/ML Subcutaneous per insulin pump as directed 28 Active Sodium Bicarbonate Orally 2 times a day 1 tablet 12h Active Zofran ODT 4 MG Orally every 8 hrs 1 tablet on the tongue and allow to dissolve 8h Nov, 07 days Active Bentyl 20 MG Orally Four times a day PRN 1 tablet 30 Active Requip 0.25 MG TAKE ONE TABLET BY MOUTH ONCE DAILY 90 Active Topamax 25 MG Orally Twice a day 1 tablet 12h Jan, Active Tramadol HCl 50 MG Orally 1 tablet in the morning and 2 tablets in the evening 1 tablet Feb, 28 days Active Ferrous Sulfate 65 mg Orally Once a day by Oral route 325mg QD by Dr Styles 24h Nov, Active GlucaGen HypoKit 1 MG Injection PRN Inject 1 mg Jun, 14 days Active Fioricet 50-300-40 mg Orally every 4 hrs 1 tablet as needed 4h Jun, Active Pzu-Ghxqslsr-Npkb-FA 65-1 MG Active Rizatriptan Benzoate 10 mg Orally Once a day May repeat in 2 hours if needed 1 tablet on the tongue and allow to dissolve as needed one time Sep, 1 day(s) Active RESULTS Name Result Date Reference Range A1C (IN HOUSE) 2017-10-07 A1C IN HOUSE 6.5 4.3 - 5.6 % Previous A1c 6.4 Lot [id number] Exp date 05/2019 PROCEDURES Procedure Date Ordered Result Body Site GLYCATED HEMOGLOBIN TEST Oct 07, 2017 [facility] VISIT ESTABLISHED PATIENT Oct 07, 2017 INSTRUCTIONS MEDICATIONS ADMINISTERED No Known Medications MEDICAL (GENERAL) HISTORY Type Description Date Medical History Diabetic Surgical History Bilat tubal ligation Hospitalization History Diabetic multiple hospitalizations
--- OUTSIDE RECORDS SUMMARY | 2018-06-06 09:10 | XMS REPORT ---
Author Author ALAN CARABALLO [facility] Address [address] [place] [address] Care Team Providers Care Employment Manager Name Role Phone ALAN CARABALLO Unavailable PROBLEMS Type Condition ICD9-CM Code IUW77-TB Code Onset Dates Condition Status SNOMED Code Problem Type 1 diabetes mellitus without complications E10.9 Active 207615644 Problem Other insomnia G47.09 Active 914565233 Problem Low back pain M54.5 Active 406765552 Problem Migraine with aura and without status migrainosus, not intractable G43.109 Active 6878395 Problem Menorrhagia with regular cycle N92.0 Active 774017406 Problem Chronic kidney disease, stage 4 (severe) N18.4 Active 262998454 Problem Migraine without aura and without status migrainosus, not intractable G43.009 Active 478087388 Problem Autonomic neuropathy G90.9 Active 134437167 Problem Dysthymia F34.1 Active 02053841 Problem Type 1 diabetes mellitus with hypoglycemia without coma E10.649 Active 22177934 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 02418798 Problem Type 1 diabetes mellitus with hyperglycemia E10.65 Active 88326835 Problem Migraine G43.909 Active 28805790 Problem Irritable bowel K58.9 Active 43404059 Problem Proteinuria, unspecified R80.9 Active 05236163 Problem Anemia, unspecified D64.9 Active 308351844 Problem Chronic kidney disease, unspecified N18.9 Active 763992498 Problem Restless legs syndrome G25.81 Active 024267951 ALLERGIES No Information ENCOUNTERS Encounter Location Date Diagnosis [facility] [id number] [address] 8024 May, [facility] [address] [facility] [id number] [address] May, [facility] [id number] [address] 0857 Apr, Type 1 diabetes mellitus with hyperglycemia E10.65 [facility] [id number] [place] [address] 02157- 1054 Apr, Low back pain M54.5 [facility] [id number] [place] [address] 51219- 3390 Apr, [facility] [id number] [place] [address] 11157- 5275 Apr, [facility] [id number] [place] [address] 70453- 2035 March, [facility] [id number] [place] [address] 32344- 4871 March, Low back pain M54.5 [facility] [id number] [place] [address] 12230- 4334 March, [facility] [id number] [place] [address] 35154- 9070 Feb, [facility] [id number] [place] [address] 76297- 1672 Feb, Low back pain M54.5 [facility] [id number] [place] [address] 03079- 1467 Jan, Restless legs syndrome G25.81 [facility] [id number] [place] [address] 49884- 0942 Jan, Low back pain M54.5 [facility] [id number] [place] [address] 53797- 4361 Jan, [facility] [id number] [place] [address] 78950- 5086 Jan, Type 1 diabetes mellitus without complications E10.9 ; Low back pain M54.5 ; Cough R05 ; Diarrhea, unspecified type R19.7 ; Migraine without aura and without status migrainosus, not intractable G43.009 and Uses control Z30.9 [facility] [id number] [place] [address] 24000- 4140 Dec, Low back pain M54.5 [facility] [id number] [place] [id number]46 Dec, [facility] [address]202 875 Nov, Well woman exam Z01.419 ; Menorrhagia with regular cycle N92.0 ; Vaginal dryness N89.8 and Migraine with aura and without status migrainosus, not intractable G43.109 [address] 72759- 0886 Nov, [facility] [address] 00030- 6695 Nov, Low back pain M54.5 [place] [address] 87175- 2826 Oct, Low back pain M54.5 [facility] [address] 84270- 4226 Oct, Migraine without aura and without status migrainosus, not intractable G43.009 [facility] [id number] [place] [address] 43878- 4154 Sep, Low back pain M54.5 [facility] [id number] [place] [address] 35762- 6666 Sep, [facility] [id number] [place] [address] 39075- 2547 Sep, Migraine without aura and without status migrainosus, not intractable G43.009 [facility] [id number] [place] [address] 62071- 2541 Sep, Type 1 diabetes mellitus with hypoglycemia without coma E10.649 ; Anemia D64.9 ; Migraine without aura and without status migrainosus, not intractable G43.009 ; Chronic kidney disease, unspecified N18.9 ; Autonomic neuropathy G90.9 and Postural hypotension I95.1 [facility] [id number] [place] [address] 30236- 4034 Sep, Low back pain M54.5 [facility] [id number] [place] [address] 29848- 9999 Aug, Low back pain M54.5 [facility] [id number] [place] [address] 17522- 7917 Jul, [facility] [id number] [place] [address] 41149- 0028 Jul, Low back pain M54.5 [facility] [id number] [place] [address] 76596- 4059 Jun, [facility] [address] 73850- 1014 Jun, Low back pain M54.5 [facility] [id number] [place] [address] 84605- 3209 Jun, Migraine without aura and without status migrainosus, not intractable G43.009 [facility] [id number] [place] [address] 64516- 8729 Jun, Type 1 diabetes mellitus with hyperglycemia E10.65 ; Dysthymia F34.1 and Migraine without aura and without status migrainosus, not intractable G43.009 [facility] [id number] [place] [address] 51540- 2005 Jun, [facility] [id number] [place] [address] 11387- 8248 May, Type 1 diabetes mellitus with hyperglycemia E10.65 [facility] [id number] [place] [address] 79458- 9034 May, Low back pain M54.5 [facility] [id number] [place] [address] 80057- 9492 May, Type 1 diabetes mellitus with hyperglycemia E10.65 [facility] [id number] [place] [address] 52571- 7161 Apr, [facility] [id number] [place] [address] 94515- 6497 Apr, Chronic kidney disease, stage 4 (severe) N18.4 [facility] [id number] [place] [address] 06385- 0185 Apr, Low back pain M54.5 [facility] [id number] [place] [address] 78097- 5762 March, [facility] [id number] [place] [address] 72032- 2842 March, Low back pain M54.5 [facility] [id number] [place] [address] 72221- 2965 Feb, [facility] [id number] [place] [address] 14810- 0107 Feb, [facility] [id number] [place] [address] 21481- 9065 Feb, Low back pain M54.5 [facility] [id number] [place] [address] 52760- 4950 Feb, Low back pain M54.5 [facility] [id number] [place] [address] 72130- 2539 Feb, Migraine without aura and without status migrainosus, not intractable G43.009 [facility] [address] [place] [address] 30420- 0020 Feb, [facility] [id number] [place] [address] 15760- 9132 Jan, Low back pain M54.5 [facility] [id number] [place] [address] 29447- 7901 20 Mar, 2017 Type 1 diabetes mellitus without complications E10.9 ; Anemia D64.9 ; Chronic kidney disease, unspecified N18.9 ; Migraine without aura and without status migrainosus, not intractable G43.009 and Other insomnia G47.09 [place] [id number] [place] [address] 59220- 2764 Jan, [place] [address] 43919- 6566 Dec, Low back pain M54.5 [place] [address] 11714- 4822 Dec, [place] [address] 40935- 9688 Dec, [place] [address] 82646- 3676 08 Dec, 2016 Shortness of breath R06.02 ; Type 1 diabetes mellitus without complications E10.9 and Leg swelling M79.89 [place] [address] 23915- 3799 Nov, Low back pain M54.5 [place] [address] 11346- 1532 Nov, Viral syndrome B34.9 [place] [address] 99202- 0859 Oct, Low back pain M54.5 [place] [id number] [place] [address] 49217- 9381 Oct, [place] [id number] [place] [address] 97716- 3240 Oct, Low back pain M54.5 [place] [id number] [place] [address] 80608- 2262 Sep, [place] [address] 75353- 2060 Sep, Fatigue, unspecified type R53.83 ; Type 1 diabetes mellitus without complications E10.9 and Anemia D64.9 [facility] [id number] [place] [address] 38191- 6398 Sep, Low back pain M54.5 [facility] [id number] [place] [address] 12135- 9814 Sep, Type 1 diabetes mellitus with hyperglycemia E10.65 [facility] [address] 64802- 4232 Aug, Type 1 diabetes mellitus without complications E10.9 [facility] [id number] [place] [address] 45717- 1902 Aug, [facility] [address] 00957- 7843 Aug, [facility] [address] 44308- 5691 Jul, [facility] [id number] [place] [address] 19143- 0108 14 Jul, 2016 Low back pain M54.5 [place] [address] 73330- 8535 Jul, Hyperkalemia, diminished renal excretion E87.5 [place] [id number] [place] [address] 84490- 9892 09 Jul, 2016 Hyperkalemia, diminished renal excretion E87.5 [facility] [id number] [place] [address] 11322- 4747 Jun, [facility] [id number] [place] [address] 53604- 8954 Jun, Low back pain M54.5 [facility] [id number] [place] [address] 07134- 5652 Jun, Anemia D64.9 ; Autonomic neuropathy G90.9 and Postural hypotension I95.1 [place] [address] [place] [address]- 3507 Jun, [facility] [id number] [place] [address] 38143- 7257 May, Type 1 diabetes mellitus with complications E10.8 and Anemia D64.9 [facility] [id number] [place] [address] 56909- 8825 May, Low back pain M54.5 [facility] [id number] [place] [address] 68381- 2117 Apr, [facility] [id number] [place] [address] 29413- 2443 Apr, Low back pain M54.5 [facility] [id number] [place] [address] 21610- 5820 Apr, [facility] [id number] [place] [address] 03568- 6586 Apr, [facility] [id number] [place] [address] 56477- 6707 March, Low back pain M54.5 and Other chronic pain G89.29 [facility] [id number] [place] [address] 79819- 5475 March, Type 1 diabetes mellitus without complications E10.9 [facility] [id number] [place] [address] 15130- 2457 March, [facility] [id number] [place] [address] 29124- 7708 March, [facility] [id number] [place] [address] 87800- 3879 Feb, [facility] [id number] [place] [address] 50528- 2268 Feb, Type 1 diabetes mellitus without complications E10.9 [facility] [address] [place] [address] 71711- 2898 Feb, Trochanteric bursitis, right hip M70.61 [facility] [id number] [place] [address] 06956- 5952 Jan, [facility] [address] 37027- 5240 Jan, [facility] [id number] [place] [address] 65988- 7149 Dec, Type 1 diabetes mellitus with complications E10.8 [facility] [address] 70648- 2332 Dec, [place] [address] 79535- 1583 Dec, Anemia D64.9 ; Autonomic neuropathy G90.9 and Postural hypotension I95.1 [place] [address] 68811- 5471 Dec, [place] [id number] [place] [address] 41725- 8244 Nov, Sore throat J02.9 [place] [address] 32986- 1955 Nov, Type 1 diabetes mellitus with complications E10.8 [place] [id number] [place] [address] 00846- 8943 Nov, 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 ; Proteinuria, unspecified R80.9 and Chronic kidney disease, unspecified N18.9 [place] [id number] [place] [address] 16824- 6571 Nov, [place] [address] 60883- 9114 Nov, Trochanteric bursitis, right hip M70.61 [facility] [id number] [place] [address] 76375- 6220 Nov, [facility] [id number] [place] [address] 34804- 8328 Oct, [facility] [address], [place] [address]- 7555 Oct, [facility] [address] [place] [address] 942364- 7450 Oct, [facility] [address], [place] [address]- 3269 Sep, [facility] [id number] [place] [address] 15141- 5000 Sep, [facility] [address] [place] [address] 75772- 5621 Sep, Type 2 diabetes mellitus with complication E11.8 and Right hip pain M25.551 [facility] [address], [place] [address]- 6113 Sep, [facility] [id number] [place] [address] 80124- 1122 Aug, [facility] [address], [place] [address]- 0641 Aug, [facility] [address] [place] [address] 79698- 3644 Aug, [facility] [address], [place] [address]- 4948 Aug, Type 1 diabetes mellitus without complications E10.9 [facility] [address], [place] [address]- 3718 16 Jul, 2015 [facility] [address] [address]- 1746 15 Jul, 2015 [facility] [address] [place] [address] 54919- 0587 14 Jul, 2015 [facility] [address] [address]- 0316 Jun, [facility] [address] [place] [address]- 3158 Jun, [facility] [address] [place] [address] 62405- 3421 Jun, [facility] [address], [place] [address]- 8045 Jun, [facility] [id number] [place] [address] 532935- 2874 Jun, [facility] [id number] [place] [address] 99762- 1132 Jun, Diabetes mellitus without mention of complication, type I [ juvenile type], not stated as uncontrolled 250.01 [facility] [id number] [place] [address] 24468- 7315 May, [facility] [id number] [place] [address] 96814- 9276 May, [facility] [id number] [place] [address] 36830- 9371 May, [facility] [id number] [place] [address] 20572- 3745 May, Autonomic neuropathy 337.9 ; Postural hypotension 458.0 and Anemia 285.9 [facility] [address], [place] [address]- 7721 May, [facility] [address], [place] [address]- 5498 Apr, [facility] [address], [place] [address]- 1104 Apr, [facility] [id number] [place] [address] 06814- 0225 Apr, [facility] [address]- 0581 Apr, [facility] [address] [place] [address] 689424- 0897 Apr, [facility] [place] [facility] [address] [id number] [place] [address]- 7334 March, [facility] [place] [facility] [address] [id number] [place] [address]- 0743 March, [facility] [place] [facility] [address] [id number] [place] [address]- 4385 March, [facility] [place] [facility] [address] [id number] [place] [address]- 6075 March, [facility] [place] [facility] [address] [id number] [place] [address]- 9770 March, [facility] [place] [facility] [address] [id number] [place] [address]- 2447 Feb, [facility] [place] [facility] [address] [id number] [place] [address]- 8855 Feb, [facility] [place] [facility] [address] [id number] [place] [address]- 7403 Feb, [facility] [place] [facility] [address] [id number] [place] [address]- 3174 Jan, [facility] [place] [facility] [address] [id number] [place] [address]- 6897 Jan, [facility] [place] [facility] [address] [id number] [place] [address]- 2468 Jan, [facility] [place] [facility] [address] [id number] [place] [address]- 1087 Jan, [facility] [place] [facility] [address] [id number] [place] [address]- 9578 Jan, [facility] [place] [facility] [address] [id number] [place] [address]- 4906 Jan, [facility] [place] [facility] [address] [id number] [place] [address]- 0938 Jan, [facility] [place] [facility] [address] [id number] [place] [address]- 2270 Jan, [facility] [place] [facility] [address] [id number] [place] [address]- 5212 Jan, [facility] [place] [facility] [address] [id number] [place] [address]- 5048 Jan, [facility] [place] [facility] [address] [id number] [place] [address]- 1613 Jan, [facility] [place] [facility] [address] [id number] [place] [address]- 6688 Jan, [facility] [place] [facility] [address] [id number] [place] [address]- 1240 Jan, [facility] [place] [facility] [address] [id number] [place] [address]- 9113 Dec, [facility] [place] [facility] [address] [id number] [place] [address]- 0379 Dec, [facility] [place] [facility] [address] [id number] [place] [address]- 3345 Dec, [facility] [place] [facility] [address] [id number] [place] [address]- 8094 Dec, [facility] [place] [facility] [address] [facility] [id number] [place] [address]- 0133 Dec, [facility] [place] [facility] [address] [id number] [place] [address]- 6000 Dec, [facility] [place] [facility] [address] [id number] [place] [address]- 2288 Dec, [facility] [place] [facility] [address] [id number] [place] [address]- 5911 Dec, [facility] [place] [facility] [address] [facility] [id number] [place] [address]- 2100 Nov, [facility] [place] [facility] [address] [facility] [id number] [place] [address]- 2827 Nov, [facility] [place] [facility] [address] [id number] [place] [address]- [address] Nov, [facility] [place] [facility] [address] [id number] [place] [address] Nov, [facility] [place] [facility] [address] [id number] [place] [address] Nov, [facility] [place] [facility] [address] [id number] [place] [address] Nov, [facility] [place] [facility] [address] [id number] [place] [address] Nov, [facility] [place] [facility] [address] [id number] [place] [address] Nov, [facility] [place] [facility] [address] [id number] [place] [address] Nov, [facility] [place] [facility] [address] [id number] [place] [address] Oct, [facility] [place] [facility] [address] [id number] [place] [address] Oct, [facility] [place] [facility] [address] [id number] [place] [address] Oct, [facility] [place] [facility] [address] [id number] [place] [address] Oct, [facility] [place] [facility] [address] [id number] [place] [address] Oct, [facility] [place] [facility] [address] [id number] [place] [address] Oct, [facility] [place] [facility] [address] [id number] [place] [address] Oct, [facility] [place] [facility] [address] [id number] [place] [address] Oct, [facility] [place] [facility] [address] [id number] [place] [address] Oct, [facility] [place] [facility] [address] [id number] [place] [address] Oct, [facility] [place] [facility] [address] [id number] [place] [address] Oct, [facility] [place] [facility] [address] [id number] [place] [address] Oct, [facility] [place] [facility] [address] [id number] [place] [address] Oct, [facility] [place] [facility] [address] [id number] [place] [address] Oct, [facility] [place] [facility] [address] [id number] [place] [address] Sep, [facility] [place] [facility] [address] [id number] [place] [address] Sep, [facility] [place] [facility] [address] [id number] [place] [address] Sep, [facility] [place] [facility] [address] [id number] [place] [address] Sep, [facility] [place] [facility] [address] [facility] [id number] [place] [address] Aug, [facility] [place] [facility] [address] [id number] [place] [address] Aug, [facility] [place] [facility] [address] [id number] [place] [address] Aug, [facility] [place] [facility] [address] [id number] [place] [address] Aug, [facility] [place] [facility] [address] [id number] [place] [address] Aug, [facility] [place] [facility] [address] [facility] [id number] [place] [address] Aug, [facility] [place] [facility] [address] [id number] [place] [address] Aug, [facility] [place] [facility] [address] [id number] [place] [address] Aug, [facility] [place] [facility] [address] [id number] [place] [address] Aug, [facility] [place] [facility] [address] [id number] [place] [address] Aug, [facility] [place] [facility] [address] [id number] [place] [address]- [address] 29 Jul, 2013 [facility] [place] [facility] [address] [id number] [place] [address]- [address] 29 Jul, 2013 [facility] [place] [facility] [address] [id number] [place] [address] 29 Jul, 2013 [facility] [place] [facility] [address] [id number] [place] [address]- [address] 29 Jul, 2013 [facility] [place] [facility] [address] [id number] [place] [address]- 0389 22 Jul, 2013 [facility] [place] [facility] [address] [id number] [place] [address] 2548 22 Jul, 2013 [facility] [place] [facility] [address] [id number] [place] [address] 2540 19 Jul, 2013 [facility] [place] [facility] [address] [id number] [place] [address]- 2541 19 Jul, 2013 [facility] [place] [facility] [address] [id number] [place] [address] 2546 11 Jul, 2013 [facility] [place] [facility] [address] [id number] [place] [address] 2546 11 Jul, 2013 [facility] [place] [facility] [address] [id number] [place] [address]- 2543 10 Jul, 2013 [facility] [place] [facility] [address] [id number] [place] [address]- 2470 10 Jul, 2013 [facility] [place] [facility] [address] [id number] [place] [address]- 3897 08 Jul, 2013 [facility] [place] [facility] [address] [id number] [place] [address]- 6296 08 Jul, 2013 [facility] [place] [facility] [address] [id number] [place] [address]- 9677 Jul, 2013 [facility] [place] [facility] [address] [id number] [place] [address]- 4510 Jul, 2013 [facility] [place] [facility] [address] [id number] [place] [address]- 4323 Jul, [facility] [place] [facility] [address] [id number] [place] [address]- 9822 Jul, [facility] [place] [facility] [address] [id number] [place] [address]- 5444 Jun, [facility] [place] [facility] [address] [id number] [place] [address]- 7750 Jun, [facility] [place] [facility] [address] [id number] [place] [address]- 0260 Jun, [facility] [place] [facility] [address] [id number] [place] [address]- 8075 Jun, [facility] [place] [facility] [address] [id number] [place] [address]- 0015 Jun, [facility] [place] [facility] [address] [id number] [place] [address]- 8737 Jun, [facility] [place] [facility] [address] [id number] [place] [address]- 4293 Jun, [facility] [place] [facility] [address] [id number] [place] [address]- 7301 Jun, [facility] [place] [facility] [address] [id number] [place] [address]- 0266 Jun, [facility] [place] [facility] [address] [id number] [place] [address]- 4434 Jun, [facility] [place] [facility] [address] [id number] [place] [address]- 6387 Jun, [facility] [place] [facility] [address] [id number] [place] [address]- 0430 Jun, [facility] [place] [facility] [address] [id number] [place] [address]- 0514 Jun, [facility] [place] [facility] [address] [id number] [place] [address]- 2633 Jun, [facility] [place] [facility] [address] [id number] [place] [address]- 0171 Jun, [facility] [place] [facility] [address] [id number] [place] [address]- 8706 May, [facility] [place] [facility] [address] [id number] [place] [address]- 7171 May, [facility] [place] [facility] [address] [id number] [place] [address]- 1908 May, [facility] [place] [facility] [address] [id number] [place] [address]- 9784 May, [facility] [place] [facility] [address] [id number] [place] [address]- 9192 May, [facility] [place] [facility] [address] [id number] [place] [address]- 0570 May, [facility] [place] [facility] [address] [id number] [place] [address]- 3626 May, [facility] [place] [facility] [address] [id number] [place] [address]- 1759 May, [facility] [place] [facility] [address] [id number] [place] [address]- 1695 Apr, [facility] [place] [facility] [address] [id number] [place] [address]- 2515 Apr, [facility] [place] [facility] [address] [id number] [place] [address]- 8037 Apr, [facility] [place] [facility] [address] [id number] [place] [address]- 9409 Apr, [facility] [place] [facility] [address] [id number] [place] [address]- 7541 Apr, [facility] [place] [facility] [address] [id number] [place] [address]- 4218 Apr, [facility] [place] [facility] [address] [id number] [place] [address]- 1716 Apr, [facility] [place] [facility] [address] [id number] [place] [address]- 6135 Apr, [facility] [place] [facility] [address] [id number] [place] [address]- 5139 Apr, [facility] [place] [facility] [address] [id number] [place] [address]- 2462 Apr, [facility] [place] [facility] [address] [id number] [place] [address]- 3603 Apr, [facility] [place] [facility] [address] [id number] [place] [address]- 4824 Apr, [facility] [place] [facility] [address] [id number] [place] [address]- 7660 Apr, [facility] [place] [facility] [address] [id number] [address]- 6468 Apr, [facility] [place] [facility] [address] [id number] [place] [address]- 6204 Apr, [facility] [place] [facility] [address] [id number] [place] [address]- 3101 Apr, [facility] [place] [facility] [address] [id number] [place] [address]- 0640 Apr, [facility] [place] [facility] [address] [id number], [place] [address]- 4887 Apr, [facility] [place] [facility] [address] [id number] [place] [address]- 6542 March, [facility] [place] [facility] [address] [id number] [place] [address]- 3115 March, [facility] [place] [facility] [address] [id number] [place] [address]- 6861 March, [facility] [place] [facility] [address] [id number] [place] [address]- 4937 March, [facility] [place] [facility] [address] [id number] [place] [address]- 6598 March, [facility] [place] [facility] [address] [id number] [place] [address]- 7405 March, [facility] [place] [facility] [address] [id number] [place] [address]- 5177 March, [facility] [place] [facility] [address] [id number] [place] [address]- 1548 March, [facility] [place] [facility] [address] [id number] [place] [address]- 6448 March, [facility] [place] [facility] [address] [id number] [place] [address]- 8365 Feb, [facility] [place] [facility] [address] [id number] [place] [address]- 6998 Feb, [facility] [place] [facility] [address] [id number] [place] [address]- 5148 Feb, [facility] [place] [facility] [address] [id number] [place] [address]- 2191 Feb, [facility] [place] [facility] [address] [id number] [place] [address]- 3529 Feb, [facility] [place] [facility] [address] [id number] [place] [address]- 3052 Feb, [facility] [place] [facility] [address] [id number] [place] [address]- 3640 Feb, [facility] [place] [facility] [address] [id number] [place] [address]- 6786 Feb, [facility] [place] [facility] [address] [id number] [place] [address]- 5126 Feb, [facility] [place] [facility] [address] [id number] [place] [address]- 9706 Feb, [facility] [place] [facility] [address] [id number] [place] [address]- 3898 Feb, [facility] [place] [facility] [address] [id number] [place] [address]- 9794 Feb, [facility] [place] [facility] [address] [id number] [place] [address]- 6868 Feb, [facility] [place] [facility] [address] [id number] [place] [address]- 4285 Jan, [facility] [place] [facility] [address] [id number] [place] [address]- 6480 Jan, [facility] [place] [facility] [address] [id number] [place] [address]- 4062 Jan, [facility] [place] [facility] [address] [id number] [place] [address]- 0287 Jan, [facility] [place] [facility] [address] [id number] [place] [address]- 0858 Jan, [facility] [place] [facility] [address] [id number] [place] [address]- 8051 Jan, [facility] [place] [facility] [address] [id number] [place] [address]- 1166 Jan, [facility] [place] [facility] [address] [id number] [place] [address]- 2546 Jan, [facility] [place] [facility] [address] [id number] [place] [address]- 9303 Dec, [facility] [place] [facility] [address] [id number] [place] [address]- 6978 Dec, [facility] [place] [facility] [address] [id number] [place] [address]- 9326 Dec, [facility] [place] [facility] [address] [facility] [id number] [place] [address]- 3056 Dec, [facility] [place] [facility] [address] [id number] [place] [address]- 8638 Dec, [facility] [place] [facility] [address] [id number] [place] [address]- 9178 Dec, [facility] [place] [facility] [address] [facility] [id number] [place] [address]- 1681 Dec, [facility] [place] [facility] [address] [facility] [id number] [place] [address]- 5215 Dec, [facility] [place] [facility] [address] [facility] [id number] [place] [address]- 4027 Dec, [facility] [place] [facility] [address] [facility] [id number] [place] [address]- 1902 Dec, [facility] [place] [facility] [address] [facility] [id number] [place] [address]- 7994 Nov, [facility] [place] [facility] [address] [facility] [id number] [place] [address]- 1128 Nov, [facility] [place] [facility] [address] [id number] [place] [address]- 3536 Nov, [facility] [place] [facility] [address] [id number] [place] [address]- 0185 Nov, [facility] [place] [facility] [address] [facility] [id number] [place] [address]- 2204 Nov, [facility] [place] [facility] [address] [facility] [id number] [place] [address]- 6237 Nov, [facility] [place] [facility] [address] [id number] [place] [address]- 3200 Nov, [facility] [place] [facility] [address] [id number] [place] Nov, [facility] [place] [facility] [address] [id number] [place] [address]- 5964 Nov, [facility] [place] [facility] [address] [id number] [place] [address]- 5319 Nov, [facility] [place] [facility] [address] [id number] [place] [address]- 7324 Oct, [facility] [place] [facility] [address] [id number] [place] [address]- 6205 19 Oct, 2013 [facility] [place] [facility] [address] [id number] [place] [address]- 9365 18 Oct, 2013 [facility] [place] [facility] [address] [id number] [place] [address]- 3616 18 Oct, 2013 [facility] [place] [facility] [address] [id number] [place] [address]- 9762 17 Oct, 2013 [facility] [place] [facility] [address] [id number] [place] [address]- 4099 17 Oct, 2013 [facility] [place] [facility] [address] [id number] [place] [address]- 3146 16 Oct, 2013 [facility] [place] [facility] [address] [id number] [place] [address]- 3141 16 Oct, 2013 [facility] [place] [facility] [address] [id number] [place] [address]- 5239 11 Oct, 2013 [facility] [place] [facility] [address] [id number] [place] [address]- 2509 11 Oct, 2013 [facility] [place] [facility] [address] [id number] [place] [address]- 1069 04 Oct, 2013 [facility] [place] [facility] [address] [id number] [place] [address] Oct, [facility] [place] [facility] [address] [id number] [place] [address]- 2348 Oct, [facility] [place] [facility] [address] [id number] [place] [address]- 5643 Oct, [facility] [place] [facility] [address] [id number] [place] [address]- 0904 Sep, [facility] [place] [facility] [address] [id number] [place] [address]- 9705 Sep, [facility] [place] [facility] [address] [id number] [place] [address]- 9498 Sep, [facility] [place] [facility] [address] [id number] [place] [address]- 4381 Sep, [facility] [place] [facility] [address] [id number] [place] [address]- 7468 Sep, [facility] [place] [facility] [address] [id number], [place] [address]- 7988 Sep, [facility] [place] [facility] [address] [id number], [place] [address]- 7697 Aug, [facility] [place] [facility] [address] [id number], [place] [address]- 5013 31 Aug, 2013 [facility] [place] [facility] [address] [id number], [place] [address]- 1127 Aug, [facility] [place] [facility] [address] [id number][place] [address]- 1250 17 Aug, 2013 [facility] [place] [facility] [address] [id number][place] [address]- 3087 10 Aug, 2013 [facility] [place] [facility] [address] [id number][place] [address]- 7594 10 Aug, 2013 [facility] [place] [facility] [address] [facility] [id number][place] [address]- 4564 07 Aug, 2013 [facility] [place] [facility] [address] [id number] [place] [address]- 7861 02 Aug, 2013 [facility] [address] [id number] [place] [address]- 8207 02 Aug, 2013 [facility] [place] [facility] [address] [id number] [place] [address]- 2006 25 Jul, 2012 [facility] [address] [id number] [place] [address] 2544 23 Jul, 2012 [facility] [place] [facility] [address] [id number] [place] [address] 2547 21 Jul, 2012 [facility] [address] [id number] [place] [address]- 3157 20 Jul, 2012 [facility] [address] [id number] [place] [address]- 7603 18 Jul, 2012 [facility] [address] [id number] [place] [address]- 0151 17 Jul, 2012 [facility] [address] [id number] [place] [address]- 8069 16 Jul, 2012 [facility] [place] [facility] [address] [id number] [place] [address]- 9047 11 Jul, 2012 [facility] [address] [id number] [place] [address]- 2540 09 Jul, 2012 [facility] [place] [facility] [address] [id number] [place] [address] 2542 09 Jul, 2012 [facility] [place] [facility] [address] [id number] [place] [address] 2541 06 Jul, 2012 [facility] [place] [facility] [address] [id number] [place] [address] 2545 03 Jul, 2012 [facility] [place] [facility] [address] [id number] [place] [address]- 2542 Jun, [facility] [place] [facility] [address] [id number] [place] [address]- 2429 Jun, [facility] [place] [facility] [address] [id number] [place] [address]- 2433 Jun, [facility] [place] [facility] [address] [id number] [place] [address]- 4240 Jun, [facility] [place] [facility] [address] [id number] [place] [address]- 0911 Jun, [facility] [place] [facility] [address] [id number] [place] [address]- 9303 Jun, [facility] [address] [id number] [place] [address]- 1027 Jun, [facility] [place] [facility] [address] [id number] [place] [address]- 6479 Jun, [facility] [address] [id number] [place] [address]- 2795 Jun, [facility] [address] [id number] [place] [address]- 0324 May, [facility] [place] [facility] [address] [id number] [place] [address]- 6114 May, [facility] [place] [facility] [address] [id number] [place] [address]- 6628 May, [facility] [place] [facility] [address] [id number] [place] [address]- 0416 May, [facility] [place] [facility] [address] [id number] [place] [address]- 5060 May, [facility] [place] [facility] [address] [id number] [place] [address]- 0035 May, [facility] [place] [facility] [address] [id number] [place] [address]- 6405 May, [facility] [place] [facility] [address] [id number] [place] [address]- 1468 March, [facility] [place] [facility] [address] [id number] [place] [address]- 2546 March, [facility] [place] [facility] [address] [id number] [place] [address]46 March, [facility] [place] [facility] [address] [id number] [place] [address]- 9826 Dec, [facility] [place] [facility] [address] [id number] [place] [address]- 4787 Nov, [facility] [place] [facility] [address] [id number] [place] [address]- 7104 Aug, [facility] [place] [facility] [address] [id number] [place] [address]- 5821 Aug, [facility] [place] [facility] [address] [id number] [place] [address]- 4646 Jun, [facility] [place] [facility] [address] [id number] [place] [address]- 1450 Jun, [facility] [place] [facility] [address] [id number] [place] [address]- 7185 Jun, [facility] [place] [facility] [address] [id number] [place] [address]- 7483 Jun, [facility] [place] [facility] [address] [id number] [place] [address]- 3872 May, [facility] [place] [facility] [address] [id number] [place] [address]- 0484 May, [facility] [place] [facility] [address] [id number] [place] [address]- 8816 May, [facility] [place] [facility] [address] [id number] [place] [address]- 1109 May, [facility] [place] [facility] [address] [id number] [place] [address]- 0121 May, [facility] [place] [facility] [address] [id number] [place] [address]- 2485 May, [facility] [place] [facility] [address] [id number] [place] [address]- 5316 May, [facility] [address] [id number] [place] [address]- 4252 Apr, [facility] [address] [id number] [place] [address]- 7516 Apr, [facility] [address] [id number] [place] [address]- 0674 Apr, [facility] [address] [id number] [place] [address]- 7707 Apr, [facility] [address] [id number] [place] [address]- 5404 March, [facility] [address] [id number] [place] [address] March, [facility] [address] [id number] [place] [address] March, [facility] [address] [id number] [place] [address] March, [facility] [address] [id number] [place] [address] March, [facility] [address] [id number] [place] [address] March, [facility] [address] [id number] [place] [address] March, [facility] [address] [id number] [place] [address] March, [facility] [place] [facility] [address] [id number] [place] [address] March, [facility] [address] [id number] [place] [address] Feb, [facility] [address] [id number] [place] [address] Feb, [facility] [address] [id number] [place] [address] 28 Jan, 2012 [facility] [place] [facility] [address] [id number] [place] [address] 27 Jan, 2012 [facility] [place] [facility] [address] [id number] [place] [address] 16 Jan, 2012 [facility] [place] [facility] [address] [id number] [place] [address] 05 Jan, 2012 [facility] [place] [facility] [address] [id number] [place] [address] 20 Dec, 2011 [facility] [place] [facility] [address] [id number] [place] [address] 16 Dec, 2011 [facility] [place] [facility] [address] [id number] [place] [address] 15 Dec, 2011 [facility] [place] [facility] [address] [id number] [place] [address] 30 Nov, 2011 [facility] [place] [facility] [address] [id number] [place] [address] Oct, [facility] [place] [facility] [address] [id number] [place] [address] 15 Oct, 2011 [facility] [place] [facility] [address] [id number] [place] [address] 15 Oct, 2011 [facility] [place] [facility] [address] [id number] [place] [address] 14 Oct, 2011 [facility] [place] [facility] [address] [id number] [place] [address] 14 Oct, 2011 [facility] [place] [facility] [address] [id number] [place] [address] 12 Oct, 2011 [facility] [place] [facility] [address] [id number] [place] [address] 09 Oct, 2011 [facility] [place] [facility] [id number] [address] Oct, [facility] [id number] [address] Sep, [facility] [id number] [address] Sep, [facility] [id number] [address] 14 Sep, 2011 [facility] [id number] [address] Sep, [facility] [id number] [place] [address] Sep, [facility] [id number] [address] Sep, [facility] [id number] [place] [address] Sep, [facility] [id number] [address] Sep, [facility] [id number] [address] Sep, [facility] [id number] [place] [address] 24 Aug, 2011 [facility] [address] [place] [address] Jul, [facility] [id number] [place] [address] Oct, [facility] [id number] [address] Oct, [facility] [id number] [address] Oct, IMMUNIZATIONS No Known Immunizations SOCIAL HISTORY Never Assessed REASON FOR VISIT Photoengraver hx updated--ADaviedRN PLAN OF CARE VITAL SIGNS MEDICATIONS Unknown Medications RESULTS No Results PROCEDURES No Known procedures INSTRUCTIONS MEDICATIONS ADMINISTERED No Known Medications MEDICAL (GENERAL) HISTORY Type Description Date Medical History Diabetic Surgical History Bilat tubal ligation Hospitalization History Diabetic multiple hospitalizations
--- OUTSIDE RECORDS SUMMARY | 2018-06-06 09:13 | XMS REPORT ---
Author Author ALAN CARABALLO [facility] Address [address] [place] [address] Care Team Providers Care Cost Accounting Analyst Name Role Phone ALAN CARABALLO Unavailable PROBLEMS Type Condition ICD9-CM Code PQM48-XN Code Onset Dates Condition Status SNOMED Code Problem Type 1 diabetes mellitus without complications E10.9 Active 966401519 Problem Other insomnia G47.09 Active 298127137 Problem Low back pain M54.5 Active 546936282 Problem Migraine with aura and without status migrainosus, not intractable G43.109 Active 3431702 Problem Menorrhagia with regular cycle N92.0 Active 971793615 Problem Chronic kidney disease, stage 4 (severe) N18.4 Active 859307199 Problem Migraine without aura and without status migrainosus, not intractable G43.009 Active 133840623 Problem Autonomic neuropathy G90.9 Active 607976638 Problem Dysthymia F34.1 Active 73145317 Problem Type 1 diabetes mellitus with hypoglycemia without coma E10.649 Active 72663377 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 96721131 Problem Type 1 diabetes mellitus with hyperglycemia E10.65 Active 48412977 Problem Migraine G43.909 Active 80325238 Problem Irritable bowel K58.9 Active 58446394 Problem Proteinuria, unspecified R80.9 Active 71686454 Problem Anemia, unspecified D64.9 Active 032544034 Problem Chronic kidney disease, unspecified N18.9 Active 975530977 Problem Restless legs syndrome G25.81 Active 344057946 ALLERGIES No Information ENCOUNTERS Encounter Location Date Diagnosis [facility] [id number], [place] [address] May, [facility] [address] [facility] [id number], [place] [address] May, [facility] [address], [place] [address] 20[address] Apr, Low back pain M54.5 [facility] [id number] [place] [address] 41082- 6792 Apr, [facility] [id number] [place] [address] 87249- 4666 Apr, [facility] [id number] [place] [address] 41684- 1475 March, [facility] [id number] [place] [address] 92957- 4083 March, Low back pain M54.5 [facility] [id number] [place] [address] 27712- 9486 March, [facility] [id number] [place] [address] 28806- 3243 Feb, [facility] [id number] [place] [address] 34653- 7868 Feb, Low back pain M54.5 [facility] [id number] [place] [address] 05464- 9169 Jan, Restless legs syndrome G25.81 [facility] [id number] [place] [address] 57108- 3393 Jan, Low back pain M54.5 [facility] [id number] [place] [address] 98416- 1209 Jan, [facility] [id number] [place] [address] 75145- 8154 Jan, Type 1 diabetes mellitus without complications E10.9 ; Low back pain M54.5 ; Cough R05 ; Diarrhea, unspecified type R19.7 ; Migraine without aura and without status migrainosus, not intractable G43.009 and Uses control Z30.9 [facility] [address], [place] [address] 4381 Dec, Low back pain M54.5 [facility] [id number] [place] [address] 39700- 9797 Dec, [facility] [address] [address] 908 Nov, Well woman exam Z01.419 ; Menorrhagia with regular cycle N92.0 ; Vaginal dryness N89.8 and Migraine with aura and without status migrainosus, not intractable G43.109 [facility] [address] [address]12- 8056 Nov, [place] [address] 37715- 1739 Nov, Low back pain M54.5 [place] [address] 67195- 0759 Oct, Low back pain M54.5 [facility] [address] 33476- 3057 Oct, Migraine without aura and without status migrainosus, not intractable G43.009 [place] [address] 29044- 1539 Sep, Low back pain M54.5 [facility] [address] 28743- 0437 Sep, [facility] [address] 99139- 5533 Sep, Migraine without aura and without status migrainosus, not intractable G43.009 [facility] [id number] [place] [address] 05306- 6110 Sep, Type 1 diabetes mellitus with hypoglycemia without coma E10.649 ; Anemia D64.9 ; Migraine without aura and without status migrainosus, not intractable G43.009 ; Chronic kidney disease, unspecified N18.9 ; Autonomic neuropathy G90.9 and Postural hypotension I95.1 [place] [address] [place] [address]- 6818 Sep, Low back pain M54.5 [facility] [id number] [place] [address] 89200- 2102 Aug, Low back pain M54.5 [facility] [id number] [place] [address] 43977- 0931 Jul, [facility] [id number] [place] [address] 68551- 7846 Jul, Low back pain M54.5 [facility] [id number] [place] [address] 64211- 0133 Jun, [facility] [id number] [place] [address] 47332- 3287 Jun, Low back pain M54.5 [facility] [id number] [place] [address] 07358- 0364 Jun, Migraine without aura and without status migrainosus, not intractable G43.009 [facility] [id number] [place] [address] 79377- 0844 Jun, Type 1 diabetes mellitus with hyperglycemia E10.65 ; Dysthymia F34.1 and Migraine without aura and without status migrainosus, not intractable G43.009 [facility] [id number] [place] [address] 25628- 1128 Jun, [facility] [id number] [place] [address] 23350- 4224 May, Type 1 diabetes mellitus with hyperglycemia E10.65 [facility] [id number] [place] [address] 78136- 7067 May, Low back pain M54.5 [facility] [id number] [place] [address] 38136- 6065 May, Type 1 diabetes mellitus with hyperglycemia E10.65 [facility] [id number] [place] [address] 20266- 2801 Apr, [facility] [address], [place] [address]- 0325 Apr, Chronic kidney disease, stage 4 (severe) N18.4 [facility] [id number] [place] [address] 63101- 9703 Apr, Low back pain M54.5 [facility] [id number] [place] [address] 33662- 3749 March, [facility] [id number] [place] [address] 70015- 4512 March, Low back pain M54.5 [facility] [id number] [place] [address] 43763- 3119 Feb, [facility] [id number] [place] [address] 15912- 3656 Feb, [facility] [id number] [place] [address] 60511- 1730 Feb, Low back pain M54.5 [facility] [id number] [place] [address] 90947- 4971 Feb, Low back pain M54.5 [facility] [id number] [place] [address] 17978- 1364 Feb, Migraine without aura and without status migrainosus, not intractable G43.009 [facility] [id number] [place] [address] 08947- 8654 Feb, [facility] [id number] [place] [address] 14341- 9598 Jan, Low back pain M54.5 [facility] [id number] [place] [address] 79945- 8162 Jan, Type 1 diabetes mellitus without complications E10.9 ; Anemia D64.9 ; Chronic kidney disease, unspecified N18.9 ; Migraine without aura and without status migrainosus, not intractable G43.009 and Other insomnia G47.09 [facility] [id number] [place] [address] 79844- 7205 Jan, [facility] [id number] [place] [address] 87145- 0914 Dec, Low back pain M54.5 [facility] [id number] [place] [address] 78252- 5311 Dec, [facility] [address] 90829- 6728 Dec, [place] [id number] [place] [address] 18916- 7581 Dec, Shortness of breath R06.02 ; Type 1 diabetes mellitus without complications E10.9 and Leg swelling M79.89 [place] [id number] [place] [address] 24274- 2576 Nov, Low back pain M54.5 [facility] [id number] [place] [address] 92502- 3939 Nov, Viral syndrome B34.9 [place] [address] 33338- 3989 Oct, Low back pain M54.5 [facility] [id number] [place] [address] 14182- 2775 Oct, [facility] [id number] [place] [address] 55290- 5551 Oct, Low back pain M54.5 [facility] [id number] [place] [address] 33668- 8719 Sep, [facility] [id number] [place] [address] 02163- 5377 Sep, Fatigue, unspecified type R53.83 ; Type 1 diabetes mellitus without complications E10.9 and Anemia D64.9 [facility] [id number] [place] [address] 62212- 3357 Sep, Low back pain M54.5 [facility] [id number] [place] [address] 42150- 9082 Sep, Type 1 diabetes mellitus with hyperglycemia E10.65 [facility] [id number] [place] [address] 35076- 2766 Aug, Type 1 diabetes mellitus without complications E10.9 [facility] [id number] [place] [address] 27071- 9016 Aug, [facility] [id number] [place] [address] 98355- 4154 Aug, [facility] [id number] [place] [address] 61269- 1483 Jul, [facility] [id number] [place] [address] 49724- 7419 14 Jul, 2016 Low back pain M54.5 [facility] [id number] [place] [address] 50738- 5784 12 Jul, 2016 Hyperkalemia, diminished renal excretion E87.5 [facility] [id number] [place] [address] 62074- 3202 09 Jul, 2016 Hyperkalemia, diminished renal excretion E87.5 [facility] [id number] [place] [address] 46615- 1520 Jun, [facility] [id number] [place] [address] 91487- 8273 Jun, Low back pain M54.5 [facility] [id number] [place] [address] 24890- 8243 Jun, Anemia D64.9 ; Autonomic neuropathy G90.9 and Postural hypotension I95.1 [facility] [id number] [place] [address] 60511- 2357 Jun, [facility] [id number] [place] [address] 99947- 3596 May, Type 1 diabetes mellitus with complications E10.8 and Anemia D64.9 [facility] [id number] [place] [address] 54434- 0981 May, Low back pain M54.5 [facility] [address] [facility] [id number] [place] [address] 82222- 4511 Apr, [facility] [id number] [place] [address] 59964- 9616 Apr, Low back pain M54.5 [facility] [id number] [place] [address] 93746- 0096 Apr, [facility] [id number] [place] [address] 55703- 0220 Apr, [facility] [id number] [place] [address] 35102- 0870 March, Low back pain M54.5 and Other chronic pain G89.29 [facility] [id number] [place] [address] 26167- 7954 March, Type 1 diabetes mellitus without complications E10.9 [facility] [id number] [place] [address] 93635- 1343 March, [facility] [id number] [place] [address] 73161- 3995 March, [facility] [id number] [place] [address] 53589- 9429 Feb, [facility] [id number] [place] [address] 97544- 2595 Feb, Type 1 diabetes mellitus without complications E10.9 [facility] [id number] [place] [address] 02011- 8297 Feb, Trochanteric bursitis, right hip M70.61 [facility] [id number] [place] [address] 61925- 1370 Jan, [place] [id number] [place] [address] 82346- 9096 Jan, [place] [address] 80252- 2470 Dec, Type 1 diabetes mellitus with complications E10.8 [place] [address] 12297- 1137 Dec, [place] [address] 51483- 8841 Dec, Anemia D64.9 ; Autonomic neuropathy G90.9 and Postural hypotension I95.1 [place] [address] 74058- 0196 Dec, [place] [address] 48900- 3315 Nov, Sore throat J02.9 [place] [address] 35741- 6841 Nov, Type 1 diabetes mellitus with complications E10.8 [place] [address] 32535- 9122 Nov, 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 ; Proteinuria, unspecified R80.9 and Chronic kidney disease, unspecified N18.9 [place] [id number] [place] [address] 81287- 7658 Nov, [place] [address] 22886- 8578 Nov, Trochanteric bursitis, right hip M70.61 [place] [address] 07234- 3767 Nov, [place] [id number] [place] [address] 92289- 9776 Oct, [place] [address] 05296- 7517 Oct, [facility] [address], [place] [address]- 4792 Oct, [facility] [id number] [place] [address] 00498- 9701 Sep, [facility] [id number] [place] [address] 59480- 0007 Sep, [facility] [id number] [place] [address] 73544- 9427 Sep, Type 2 diabetes mellitus with complication E11.8 and Right hip pain M25.551 [facility] [id number] [place] [address] 19847- 8999 Sep, [facility] [id number] [place] [address] 21154- 3070 Aug, [facility] [id number] [place] [address] 84033- 4857 Aug, [facility] [id number] [place] [address] 90789- 4659 Aug, [facility] [id number] [place] [address] 21290- 5395 Aug, Type 1 diabetes mellitus without complications E10.9 [facility] [address] [place] [address] 98538- 4968 16 Jul, 2015 [facility] [address] [place] [address] 63012- 1105 15 Jul, 2015 [facility] [address] [place] [address] 23101- 9902 14 Jul, 2015 [facility] [id number] [place] [address] 89914- 2802 Jun, [facility] [id number] [place] [address] 61918- 8322 Jun, [facility] [id number] [place] [address] 23793- 1281 Jun, [facility] [address], [place] [address]- 3470 Jun, [facility] [id number] [place] [address] 900308- 7893 Jun, [facility] [id number] [place] [address] 84780- 9259 Jun, Diabetes mellitus without mention of complication, type I [ juvenile type], not stated as uncontrolled 250.01 [facility] [id number] [place] [address] 72283- 9326 May, [facility] [id number] [place] [address] 51399- 5393 May, [facility] [id number] [place] [address] 32012- 6643 May, [facility] [id number] [place] [address] 43459- 8477 May, Autonomic neuropathy 337.9 ; Postural hypotension 458.0 and Anemia 285.9 [facility] [id number] [place] [address] 72461- 0487 May, [facility] [id number] [place] [address] 96816- 4472 Apr, [facility] [id number] [place] [address] 22827- 1582 Apr, [facility] [id number] [place] [address] 33467- 8009 Apr, [facility] [id number] [place] [address] 67178- 1276 Apr, [facility] [id number] [place] [address] 81442- 8484 Apr, [facility] [id number] [place] [address] 49485- 0548 March, [facility] [place] [facility] [address] [id number] [place] [address]- 7347 March, [facility] [place] [facility] [address] [id number] [place] [address]- 2257 March, [facility] [place] [facility] [address] [id number] [place] [address]- 6006 March, [facility] [place] [facility] [address] [id number] [place] [address]- 0787 March, [facility] [place] [facility] [address] [id number] [place] [address]- 7027 Feb, [facility] [place] [facility] [address] [id number] [place] [address]- 4816 Feb, [facility] [place] [facility] [address] [id number] [place] [address]- 5122 Feb, [facility] [place] [facility] [address] [id number] [place] [address]- 1641 30 Jan, 2015 [facility] [place] [facility] [address] [id number] [place] [address]- 3886 Jan, [facility] [place] [facility] [address] [id number] [place] [address]- 8955 24 Jan, 2015 [facility] [place] [facility] [address] [id number] [place] [address]- 4228 Jan, [facility] [place] [facility] [address] [id number] [place] [address]- 0324 Jan, [facility] [place] [facility] [address] [id number] [place] [address]- 3274 Jan, [facility] [place] [facility] [address] [id number] [place] [address]- 7928 Jan, [facility] [place] [facility] [address] [id number] [place] [address]- 8594 04 Jan, 2015 [facility] [place] [facility] [address] [id number] [place] [address]- 5610 Jan, [facility] [place] [facility] [address] [id number] [place] [address]- 4794 Jan, [facility] [place] [facility] [address] [id number] [place] [address]- 0814 Jan, [facility] [place] [facility] [address] [facility] [id number] [place] [address]- 7375 Jan, [facility] [place] [facility] [address] [id number] [place] [address]- 9713 Jan, [facility] [place] [facility] [address] [id number] [place] [address]- 4550 Dec, [facility] [place] [facility] [address] [id number] [place] [address]- 4907 Dec, [facility] [place] [facility] [address] [facility] [id number] [place] [address]- 7898 Dec, [facility] [place] [facility] [address] [id number] [place] [address]- 1480 Dec, [facility] [place] [facility] [address] [facility] [id number], [place] [address]- 7005 Dec, [facility] [place] [facility] [address] [facility] [id number] [place] [address]- 5495 Dec, [facility] [place] [facility] [address] [facility] [id number], [place] [address]- 9207 Dec, [facility] [place] [facility] [address] [facility] [id number], [place] [address]- 4033 Dec, [facility] [place] [facility] [address] [facility] [id number], [place] [address]- 5678 Nov, [facility] [place] [facility] [address] [facility] [id number], [place] [address]- 0016 Nov, [facility] [place] [facility] [address] [facility] [id number], [place] [address]- 4618 Nov, [facility] [place] [facility] [address] [id number] [place] [address]- 9472 14 Nov, 2014 [facility] [place] [facility] [address] [id number] [place] [address]- 8225 14 Nov, 2014 [facility] [place] [facility] [address] [id number] [place] [address]- 0066 Nov, [facility] [place] [facility] [address] [id number] [place] [address]- 6133 Nov, [facility] [place] [facility] [address] [id number] [place] [address]- 4329 Nov, [facility] [place] [facility] [address] [id number] [place] [address]- 6569 Nov, [facility] [place] [facility] [address] [id number] [place] [address]- 9223 Oct, [facility] [place] [facility] [address] [id number] [place] [address]- 4837 30 Oct, 2014 [facility] [place] [facility] [address] [id number] [place] [address]- 9114 Oct, [facility] [place] [facility] [address] [id number] [place] [address]- 5734 Oct, [facility] [place] [facility] [address] [id number] [place] [address]- 5130 Oct, [facility] [place] [facility] [address] [id number] [place] [address]- 3541 Oct, [facility] [place] [facility] [address] [id number] [place] [address]- 0366 Oct, [facility] [place] [facility] [address] [id number] [place] [address] 2546 Oct, [facility] [place] [facility] [address] [id number] [place] [address]- 8856 17 Oct, 2014 [facility] [place] [facility] [address] [id number] [place] [address] Oct, [facility] [place] [facility] [address] [id number] [place] [address] Oct, [facility] [place] [facility] [address] [id number] [place] [address] Oct, [facility] [place] [facility] [address] [id number] [place] [address] Oct, [facility] [place] [facility] [address] [id number] [place] [address] Oct, [facility] [place] [facility] [address] [id number] [place] [address] Sep, [facility] [place] [facility] [address] [id number] [place] [address] Sep, [facility] [place] [facility] [address] [id number] [place] [address] Sep, [facility] [place] [facility] [address] [id number], [place] [address] Sep, [facility] [place] [facility] [address] [id number] [place] [address] Aug, [facility] [place] [facility] [address] [id number] [place] [address] Aug, [facility] [place] [facility] [address] [id number], [place] [address] Aug, [facility] [place] [facility] [address] [id number], [place] [address] Aug, [facility] [place] [facility] [address] [id number] [place] [address] Aug, [facility] [place] [facility] [address] [id number], [place] [address] Aug, [facility] [place] [facility] [address] [id number], [place] [address] Aug, [facility] [place] [facility] [address] [id number] [place] [address] 06 Aug, 2013 [facility] [place] [facility] [address] [id number] [place] [address] 02 Aug, 2014 [facility] [place] [facility] [address] [id number] [place] [address] 02 Aug, 2014 [facility] [place] [facility] [address] [id number] [place] [address] 29 Jul, 2013 [facility] [place] [facility] [address] [id number] [place] [address] 29 Jul, 2013 [facility] [place] [facility] [address] [id number] [place] [address] 29 Jul, 2013 [facility] [place] [facility] [address] [id number] [place] [address] 29 Jul, 2013 [facility] [place] [facility] [address] [id number] [place] [address]- [address] 22 Jul, 2013 [facility] [place] [facility] [address] [id number] [place] [address] 22 Jul, 2013 [facility] [place] [facility] [address] [id number] [place] [address] 19 Jul, 2013 [facility] [place] [facility] [address] [id number] [place] [address] 19 Jul, 2013 [facility] [place] [facility] [address] [id number] [place] [address] 2546 11 Jul, 2013 [facility] [place] [facility] [address] [id number] [place] [address] 2541 11 Jul, 2013 [facility] [place] [facility] [address] [id number] [place] [address] 2540 10 Jul, 2013 [facility] [place] [facility] [address] [id number] [place] [address]- 2546 10 Jul, 2013 [facility] [place] [facility] [address] [id number] [place] [address] 2546 08 Jul, 2013 [facility] [place] [facility] [address] [id number] [place] [address]- 4748 08 Jul, 2013 [facility] [place] [facility] [address] [id number] [place] [address]- 2239 Jul, 2013 [facility] [place] [facility] [address] [id number] [place] [address]- 4194 Jul, 2013 [facility] [place] [facility] [address] [id number] [place] [address]- 6359 Jul, 2013 [facility] [place] [facility] [address] [id number] [place] [address]- 4252 Jul, [facility] [place] [facility] [address] [id number] [place] [address] Jun, [facility] [place] [facility] [address] [id number] [place] [address]- 8021 Jun, [facility] [place] [facility] [address] [id number] [place] [address]- 0282 Jun, [facility] [place] [facility] [address] [id number] [place] [address]- 0308 Jun, [facility] [place] [facility] [address] [id number] [place] [address]- 1168 Jun, [facility] [place] [facility] [address] [id number] [place] [address]- 2440 Jun, [facility] [place] [facility] [address] [id number] [place] [address]- 8266 Jun, [facility] [place] [facility] [address] [id number] [place] [address]- 6211 Jun, [facility] [place] [facility] [address] [id number] [place] [address]- 3715 Jun, [facility] [place] [facility] [address] [id number] [place] [address]- 4101 Jun, [facility] [place] [facility] [address] [id number] [place] [address]- 2248 Jun, [facility] [place] [facility] [address] [id number] [place] [address]- 7472 Jun, [facility] [place] [facility] [address] [id number] [place] [address]- 9823 Jun, [facility] [place] [facility] [address] [id number] [place] [address]- 5067 Jun, [facility] [place] [facility] [address] [id number] [place] [address]- 9993 Jun, [facility] [place] [facility] [address] [id number] [place] [address]- 1401 May, [facility] [place] [facility] [address] [id number] [place] [address]- 3521 May, [facility] [place] [facility] [address] [id number] [place] [address]- 1684 May, [facility] [place] [facility] [address] [id number] [place] [address]- 5890 May, [facility] [place] [facility] [address] [id number] [place] [address]- 3186 May, [facility] [place] [facility] [address] [id number] [place] [address]- 0266 May, [facility] [place] [facility] [address] [id number] [place] [address]- 7429 May, [facility] [place] [facility] [address] [id number] [place] [address]- 0861 May, [facility] [place] [facility] [address] [id number] [place] [address]- 4316 Apr, [facility] [place] [facility] [address] [id number] [place] [address]- 5573 Apr, [facility] [place] [facility] [address] [id number] [place] [address]- 4681 Apr, [facility] [place] [facility] [address] [id number] [place] [address]- 2656 Apr, [facility] [place] [facility] [address] [id number] [place] [address]- 3285 Apr, [facility] [place] [facility] [address] [id number] [place] [address]- 3400 Apr, [facility] [place] [facility] [address] [id number] [place] [address]- 4232 Apr, [facility] [place] [facility] [address] [id number] [place] [address]- 4563 Apr, [facility] [place] [facility] [address] [id number] [place] [address]- 2679 Apr, [facility] [place] [facility] [address] [id number] [place] [address]- 5733 Apr, [facility] [place] [facility] [address] [id number] [place] [address]- 6172 Apr, [facility] [place] [facility] [address] [id number] [place] [address]- 7993 Apr, [facility] [place] [facility] [address] [id number] [place] [address]- 6368 Apr, [facility] [place] [facility] [address] [id number] [place] [address]- 4126 Apr, [facility] [place] [facility] [address] [id number] [place] [address]- 2494 Apr, [facility] [place] [facility] [address] [id number] [place] [address]- 7263 Apr, [facility] [place] [facility] [address] [id number] [place] [address]- 5165 Apr, [facility] [place] [facility] [address] [id number] [place] [address]- 3222 Apr, [facility] [place] [facility] [address] [id number] [place] [address]- 2282 March, [facility] [place] [facility] [address] [id number] [place] [address]- 2160 March, [facility] [place] [facility] [address] [id number] [place] [address]- 3863 March, [facility] [place] [facility] [address] [id number] [place] [address]- 8957 March, [facility] [place] [facility] [address] [id number] [place] [address]- 4525 March, [facility] [place] [facility] [address] [id number] [place] [address]- 8955 March, [facility] [place] [facility] [address] [id number] [place] [address]- 3245 March, [facility] [place] [facility] [address] [id number] [place] [address]- 1670 March, [facility] [place] [facility] [address] [id number] [place] [address]- 6167 March, [facility] [place] [facility] [address] [id number] [place] [address]- 5416 Feb, [facility] [place] [facility] [address] [id number] [place] [address]- 1751 Feb, [facility] [place] [facility] [address] [id number] [place] [address]- 0489 Feb, [facility] [place] [facility] [address] [id number] [place] [address]- 9581 Feb, [facility] [place] [facility] [address] [id number] [place] [address]- 0398 Feb, [facility] [place] [facility] [address] [id number] [place] [address]- 4078 Feb, [facility] [place] [facility] [address] [id number] [place] [address]- 1044 Feb, [facility] [place] [facility] [address] [id number] [place] [address]- 0636 Feb, [facility] [place] [facility] [address] [id number] [place] [address]- 2339 Feb, [facility] [place] [facility] [address] [id number] [place] [address]- 6508 Feb, [facility] [place] [facility] [address] [id number] [place] [address]- 7884 Feb, [facility] [place] [facility] [address] [id number] [place] [address]- 9616 Feb, [facility] [place] [facility] [address] [id number] [place] [address]- 8430 Feb, [facility] [place] [facility] [address] [id number] [place] [address]- 4153 Jan, [facility] [place] [facility] [address] [id number] [place] [address]- 5787 Jan, [facility] [place] [facility] [address] [id number] [place] [address]- 6867 Jan, [facility] [place] [facility] [address] [id number] [place] [address]- 0252 Jan, [facility] [place] [facility] [address] [id number] [place] [address]- 8802 Jan, [facility] [place] [facility] [address] [id number] [place] [address]- 4015 Jan, [facility] [place] [facility] [address] [id number] [place] [address]- 8210 Jan, [facility] [place] [facility] [address] [id number] [place] [address]- 6262 Jan, [facility] [place] [facility] [address] [id number] [place] [address]- 7183 Dec, [facility] [place] [facility] [address] [id number] [place] [address]- 6446 Dec, [facility] [place] [facility] [address] [id number] [place] [address]- 2423 Dec, [facility] [place] [facility] [address] [id number] [place] [address]- 1316 Dec, [facility] [place] [facility] [address] [id number] [place] [address]- 5096 Dec, [facility] [place] [facility] [address] [id number] [place] [address]- 2886 Dec, [facility] [place] [facility] [address] [id number] [place] [address]- 1196 Dec, [facility] [place] [facility] [address] [id number] [place] [address]- 2246 Dec, [facility] [place] [facility] [address] [id number] [place] [address]- 4306 Dec, [facility] [place] [facility] [address] [id number] [place] [address]- 3071 Dec, [facility] [place] [facility] [address] [id number] [place] [address]- 3277 Nov, [facility] [place] [facility] [address] [id number] [place] [address]- 2473 Nov, [facility] [place] [facility] [address] [id number] [place] [address]- 5762 Nov, [facility] [place] [facility] [address] [id number] [place] [address]- 7110 Nov, [facility] [place] [facility] [address] [id number] [place] [address]- 2963 Nov, [facility] [place] [facility] [address] [id number] [place] [address]- 1441 Nov, [facility] [place] [facility] [address] [id number] [place] [address]- 3049 Nov, [facility] [place] [facility] [address] [id number] [place] [address]- 0233 03 Nov, 2013 [facility] [address] [id number] [place] [address]- 1514 Nov, [facility] [address] [id number] [place] [address]- 3721 Nov, [facility] [address] [id number] [place] [address]- 4758 19 Oct, 2013 [facility] [address] [id number] [place] [address]- 7657 19 Oct, 2013 [facility] [address] [id number] [place] [address]- 5178 18 Oct, 2013 [facility] [address] [id number] [place] [address]- 8981 18 Oct, 2013 [facility] [address] [id number] [place] [address]- 7984 17 Oct, 2013 [facility] [address] [id number] [place] [address]- 9653 17 Oct, 2013 [facility] [address] [id number] [place] [address]- 4194 16 Oct, 2013 [facility] [address] [id number] [place] [address]- 8106 16 Oct, 2013 [facility] [address] [id number] [place] [address]- 9043 11 Oct, 2013 [facility] [place] [facility] [address] [id number] [place] [address]- 4145 11 Oct, 2013 [facility] [place] [facility] [address] [id number] [place] [address]- 8961 04 Oct, 2013 [facility] [place] [facility] [address] [id number] [place] [address]- 4156 04 Oct, 2013 [facility] [address] [id number] [place] [address]- 7115 04 Oct, 2013 [facility] [place] [facility] [address] [id number] [place] [address]- 8526 Oct, [facility] [place] [facility] [address] [id number] [place] [address]- 3811 Sep, [facility] [place] [facility] [address] [id number] [place] [address]- 9755 Sep, [facility] [place] [facility] [address] [id number] [place] [address]- 6573 Sep, [facility] [place] [facility] [address] [id number] [place] [address]- 1309 Sep, [facility] [place] [facility] [address] [id number] [place] [address]- 8150 Sep, [facility] [place] [facility] [address] [id number] [place] [address]- 3798 Sep, [facility] [place] [facility] [address] [id number] [place] [address]- 3931 Aug, [facility] [place] [facility] [address] [id number] [place] [address]- 0157 Aug, [facility] [place] [facility] [address] [id number] [place] [address]- 3868 Aug, [facility] [place] [facility] [address] [id number] [place] [address]- 6047 Aug, [facility] [place] [facility] [address] [id number] [place] [address]- 5876 Aug, [facility] [place] [facility] [address] [id number] [place] [address]- 1796 10 Aug, 2013 [facility] [place] [facility] [address] [id number] [place] [address]- 4134 Aug, [facility] [place] [facility] [address] [id number] [place] [address]- 6221 Aug, [facility] [place] [facility] [address] [id number] [place] [address]- 3289 02 Aug, 2013 [facility] [address] [id number] [place] [address]- 7954 25 Jul, 2012 [facility] [place] [facility] [address] [id number] [place] [address]- 1196 23 Jul, 2012 [facility] [place] [facility] [address] [id number] [place] [address] 254 21 Jul, 2012 [facility] [place] [facility] [address] [id number] [place] [address]- 7192 20 Jul, 2012 [facility] [place] [facility] [address] [id number] [place] [address]- 3063 18 Jul, 2012 [facility] [place] [facility] [address] [id number] [place] [address]- 0296 17 Jul, 2012 [facility] [place] [facility] [address] [id number] [place] [address]- 2433 16 Jul, 2012 [facility] [place] [facility] [address] [id number] [place] [address]- 5016 11 Jul, 2012 [facility] [place] [facility] [address] [id number] [place] [address]- 0420 09 Jul, 2012 [facility] [place] [facility] [address] [id number] [place] [address]- 3836 09 Jul, 2012 [facility] [place] [facility] [address] [id number] [place] [address]- 5582 06 Jul, 2012 [facility] [place] [facility] [address] [id number], [place] [address]- 2295 03 Jul, 2012 [facility] [place] [facility] [address] [id number] [place] [address]- 3267 Jun, [facility] [place] [facility] [address] [id number] [place] [address]- 7781 Jun, [facility] [place] [facility] [address] [id number] [place] [address]- 8703 Jun, [facility] [place] [facility] [address] [id number] [place] [address]- 1122 Jun, [facility] [address] [id number] [place] [address]- 3158 Jun, [facility] [address] [id number] [place] [address]- 8812 Jun, [facility] [address] [id number] [place] [address]- 7805 Jun, [facility] [address] [id number] [place] [address]- 1267 Jun, [facility] [address] [id number] [place] [address]- 9776 Jun, [facility] [address] [id number] [place] [address]- 9969 May, [facility] [address] [id number] [place] [address]- 1910 May, [facility] [address] [id number] [place] [address]- 0624 May, [facility] [address] [id number] [place] [address]- 4476 May, [facility] [address] [id number] [place] [address]- 2734 May, [facility] [address] [id number] [place] [address]- 5033 May, [facility] [address] [id number] [place] [address]- 2540 May, [facility] [place] [facility] [address] [id number] [place] [address]- 4886 March, [facility] [address] [id number] [place] [address]- 2546 March, [facility] [address] [id number] [place] [address]- 8930 March, [facility] [place] [facility] [address] [id number] [place] [address]- 8669 Dec, [facility] [place] [facility] [address] [id number] [place] [address]- 8206 Nov, [facility] [place] [facility] [address] [id number] [place] [address]- 2440 Aug, [facility] [place] [facility] [address] [id number] [place] [address]- 7376 Aug, [facility] [place] [facility] [address] [id number] [place] [address]- 8830 Jun, [facility] [place] [facility] [address] [id number] [place] [address]- 6489 Jun, [facility] [place] [facility] [address] [id number] [place] [address]- 6469 Jun, [facility] [place] [facility] [address] [id number] [place] [address]- 6920 Jun, [facility] [place] [facility] [address] [id number] [place] [address]- 7021 May, [facility] [place] [facility] [address] [id number] [place] [address]- 5030 May, [facility] [place] [facility] [address] [id number] [place] [address]- 4536 May, [facility] [place] [facility] [address] [id number] [place] [address]- 8692 May, [facility] [place] [facility] [address] [id number] [place] [address]- 8189 May, [facility] [place] [facility] [address] [id number] [place] [address]- 0496 May, [facility] [place] [facility] [address] [id number] [place] [address]- 8926 May, [facility] [place] [facility] [address] [id number], [place] [address]- 3251 Apr, [facility] [address] [id number] [place] [address]- 7836 Apr, [facility] [place] [facility] [address] [id number] [place] [address]- 8340 Apr, [facility] [address] [id number] [place] [address]- 0843 Apr, [facility] [place] [facility] [address] [id number] [place] [address]- 2630 March, [facility] [address] [id number] [place] [address]- 8387 March, [facility] [place] [facility] [address] [id number] [place] [address]- 8018 March, [facility] [address] [id number] [place] [address]- 9876 March, [facility] [address] [id number] [place] [address]- 3288 March, [facility] [address] [id number] [place] [address]- 0512 March, [facility] [place] [facility] [address] [id number] [place] [address]- 7515 March, [facility] [address] [id number] [place] [address]- 9893 March, [facility] [place] [facility] [address] [id number] [place] [address]- 1480 March, [facility] [place] [facility] [address] [id number] [place] [address]- 3106 Feb, [facility] [place] [facility] [address] [id number] [place] [address] Feb, [facility] [place] [facility] [address] [id number] [place] [address] Jan, [facility] [place] [facility] [address] [id number] [place] [address] 27 Jan, 2012 [facility] [place] [facility] [address] [id number] [place] [address] 16 Jan, 2012 [facility] [place] [facility] [address] [id number] [place] [address] 05 Jan, 2012 [facility] [place] [facility] [address] [id number] [place] [address] 20 Dec, 2011 [facility] [place] [facility] [address] [id number] [place] [address] 16 Dec, 2011 [facility] [place] [facility] [address] [id number] [place] [address] 15 Dec, 2011 [facility] [place] [facility] [address] [id number] [place] [address] 30 Nov, 2011 [facility] [place] [facility] [address] [id number] [place] [address] Oct, [facility] [place] [facility] [address] [id number] [place] [address] 15 Oct, 2011 [facility] [place] [facility] [address] [id number] [place] [address] 15 Oct, 2011 [facility] [place] [facility] [address] [id number] [place] [address] 14 Oct, 2011 [facility] [place] [facility] [address] [id number] [place] [address] 14 Oct, 2011 [facility] [place] [facility] [address] [id number] [place] [address] 12 Oct, 2011 [facility] [place] [facility] [address] [id number] [place] [address]- [address]46 09 Oct, 2011 [facility] [place] [facility] [address] [id number] [place] [address] Oct, [facility] [place] [facility] [address] [id number], [place] [address] Sep, [facility] [id number], [place] [address] Sep, [facility] [id number] [address] Sep, [facility] [id number], [place] [address] Sep, [facility] [address] [facility] [id number] [address] Sep, [facility] [id number] [address] Sep, [facility] [id number] [place] [address] Sep, [facility] [id number] [place] [id number]- [address] Sep, [facility] [id number] [place] [address] Sep, [facility] [id number], [place] [address] Aug, [facility] [id number], [place] [address] Jul, [facility] [id number] [address] Oct, [facility] [id number], [place] [address] Oct, [facility] [id number], [place] [address] Oct, IMMUNIZATIONS No Known Immunizations SOCIAL HISTORY Never Assessed REASON FOR VISIT Controlled Med Refill 11/21/2017 PLAN OF CARE VITAL SIGNS MEDICATIONS Medication [...]
--- OUTSIDE RECORDS SUMMARY | 2018-06-06 09:14 | XMS REPORT ---
Author Author ALAN CARABALLO [facility] Address [address] [place] [address] Care Team Providers Care Stepdown Nurse Name Role Phone ALAN CARABALLO Unavailable PROBLEMS Type Condition ICD9-CM Code MMQ13-ZP Code Onset Dates Condition Status SNOMED Code Problem Type 1 diabetes mellitus without complications E10.9 Active 461864218 Problem Other insomnia G47.09 Active 316912634 Problem Low back pain M54.5 Active 662034468 Problem Migraine with aura and without status migrainosus, not intractable G43.109 Active 2940215 Problem Menorrhagia with regular cycle N92.0 Active 803074090 Problem Chronic kidney disease, stage 4 (severe) N18.4 Active 645138143 Problem Migraine without aura and without status migrainosus, not intractable G43.009 Active 716553714 Problem Autonomic neuropathy G90.9 Active 637789754 Problem Dysthymia F34.1 Active 25380641 Problem Type 1 diabetes mellitus with hypoglycemia without coma E10.649 Active 21133748 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 61861899 Problem Type 1 diabetes mellitus with hyperglycemia E10.65 Active 63931200 Problem Migraine G43.909 Active 25062823 Problem Irritable bowel K58.9 Active 04364897 Problem Proteinuria, unspecified R80.9 Active 57517881 Problem Anemia, unspecified D64.9 Active 441526442 Problem Chronic kidney disease, unspecified N18.9 Active 524751394 Problem Restless legs syndrome G25.81 Active 728267192 ALLERGIES No Information ENCOUNTERS Encounter Location Date Diagnosis [facility] [id number] [address] May, [facility] [address] [id number], [place] [address] May, [facility] [address], [place] [address] Apr, Low back pain M54.5 [facility] [id number] [place] [address] 79910- 6888 Apr, [facility] [id number] [place] [address] 76202- 3399 Apr, [facility] [id number] [place] [address] 46506- 2832 March, [facility] [id number] [place] [address] 85113- 8142 March, Low back pain M54.5 [facility] [id number] [place] [address] 40915- 7311 March, [facility] [id number] [place] [address] 28188- 4206 Feb, [facility] [id number] [place] [address] 60103- 6035 Feb, Low back pain M54.5 [facility] [id number] [place] [address] 08613- 1724 Jan, Restless legs syndrome G25.81 [facility] [id number] [place] [address] 45376- 5241 Jan, Low back pain M54.5 [facility] [id number] [place] [address] 95338- 4054 Jan, [facility] [id number] [place] [address] 43227- 2193 Jan, Type 1 diabetes mellitus without complications E10.9 ; Low back pain M54.5 ; Cough R05 ; Diarrhea, unspecified type R19.7 ; Migraine without aura and without status migrainosus, not intractable G43.009 and Uses control Z30.9 [facility] [address], [place] [address] 5813 Dec, Low back pain M54.5 [facility] [id number] [place] [address] 78347- 9411 Dec, [facility] [address] 335162 080 Nov, Well woman exam Z01.419 ; Menorrhagia with regular cycle N92.0 ; Vaginal dryness N89.8 and Migraine with aura and without status migrainosus, not intractable G43.109 [facility] [address] 46464- 5159 Nov, [place] [address] 03844- 8807 Nov, Low back pain M54.5 [place] [facility] [address] 56776- 9574 Oct, Low back pain M54.5 [facility] [address] 47425- 9014 Oct, Migraine without aura and without status migrainosus, not intractable G43.009 [place] [address] 17109- 8366 Sep, Low back pain M54.5 [facility] [address] 87728- 8426 Sep, [facility] [address] 09373- 4971 Sep, Migraine without aura and without status migrainosus, not intractable G43.009 [facility] [id number] [place] [address] 96254- 3313 Sep, Type 1 diabetes mellitus with hypoglycemia without coma E10.649 ; Anemia D64.9 ; Migraine without aura and without status migrainosus, not intractable G43.009 ; Chronic kidney disease, unspecified N18.9 ; Autonomic neuropathy G90.9 and Postural hypotension I95.1 [place] [address] [place] [address]- 0875 Sep, Low back pain M54.5 [facility] [id number] [place] [address] 51443- 1456 Aug, Low back pain M54.5 [facility] [id number] [place] [address] 65118- 0942 Jul, [facility] [id number] [place] [address] 27150- 3626 Jul, Low back pain M54.5 [facility] [id number] [place] [address] 05088- 0779 Jun, [facility] [id number] [place] [address] 29836- 0389 Jun, Low back pain M54.5 [facility] [id number] [place] [address] 91686- 2980 Jun, Migraine without aura and without status migrainosus, not intractable G43.009 [facility] [id number] [place] [address] 23119- 9060 Jun, Type 1 diabetes mellitus with hyperglycemia E10.65 ; Dysthymia F34.1 and Migraine without aura and without status migrainosus, not intractable G43.009 [facility] [id number] [place] [address] 75335- 1012 Jun, [facility] [id number] [place] [address] 62672- 4334 May, Type 1 diabetes mellitus with hyperglycemia E10.65 [facility] [id number] [place] [address] 07940- 7064 May, Low back pain M54.5 [facility] [id number] [place] [address] 61376- 9950 May, Type 1 diabetes mellitus with hyperglycemia E10.65 [facility] [id number] [place] [address] 19469- 0774 Apr, [facility] [address], [place] [address] 2765 Apr, Chronic kidney disease, stage 4 (severe) N18.4 [facility] [id number] [place] [address] 86093- 1676 Apr, Low back pain M54.5 [facility] [id number] [place] [address] 38974- 0347 March, [facility] [id number] [place] [address] 91241- 8558 March, Low back pain M54.5 [facility] [id number] [place] [address] 34136- 7753 Feb, [facility] [id number] [place] [address] 52895- 2470 Feb, [facility] [id number] [place] [address] 83924- 1823 Feb, Low back pain M54.5 [facility] [id number] [place] [address] 54018- 2184 Feb, Low back pain M54.5 [facility] [id number] [place] [address] 89040- 4561 Feb, Migraine without aura and without status migrainosus, not intractable G43.009 [facility] [id number] [place] [address] 93364- 6952 Feb, [facility] [id number] [place] [address] 38033- 8264 Jan, Low back pain M54.5 [facility] [id number] [place] [address] 30182- 0278 Jan, Type 1 diabetes mellitus without complications E10.9 ; Anemia D64.9 ; Chronic kidney disease, unspecified N18.9 ; Migraine without aura and without status migrainosus, not intractable G43.009 and Other insomnia G47.09 [facility] [id number] [place] [address] 86796- 3984 Jan, [facility] [id number] [place] [address] 48433- 7220 Dec, Low back pain M54.5 [facility] [id number] [place] [address] 84366- 8304 Dec, [facility] [address] 84430- 2013 Dec, [place] [facility] [id number] [place] [address] 00057- 7765 Dec, Shortness of breath R06.02 ; Type 1 diabetes mellitus without complications E10.9 and Leg swelling M79.89 [place] [facility] [id number] [place] [address] 23617- 8309 Nov, Low back pain M54.5 [facility] [id number] [place] [address] 62419- 8634 Nov, Viral syndrome B34.9 [place] [address] 69703- 9701 Oct, Low back pain M54.5 [facility] [id number] [place] [address] 28006- 4189 Oct, [facility] [id number] [place] [address] 50095- 0852 Oct, Low back pain M54.5 [facility] [id number] [place] [address] 34193- 0789 Sep, [facility] [id number] [place] [address] 95056- 7971 Sep, Fatigue, unspecified type R53.83 ; Type 1 diabetes mellitus without complications E10.9 and Anemia D64.9 [facility] [id number] [place] [address] 16046- 9655 Sep, Low back pain M54.5 [facility] [id number] [place] [address] 20533- 7058 Sep, Type 1 diabetes mellitus with hyperglycemia E10.65 [facility] [id number] [place] [address] 44329- 4286 Aug, Type 1 diabetes mellitus without complications E10.9 [facility] [id number] [place] [address] 18097- 6780 Aug, [facility] [id number] [place] [address] 46378- 9394 Aug, [facility] [id number] [place] [address] 19458- 8233 Jul, [facility] [id number] [place] [address] 11229- 1794 14 Jul, 2016 Low back pain M54.5 [facility] [id number] [place] [address] 60848- 3515 12 Jul, 2016 Hyperkalemia, diminished renal excretion E87.5 [facility] [id number] [place] [address] 74509- 5465 09 Jul, 2016 Hyperkalemia, diminished renal excretion E87.5 [facility] [id number] [place] [address] 38864- 1802 Jun, [facility] [id number] [place] [address] 07711- 3791 Jun, Low back pain M54.5 [facility] [id number] [place] [address] 22541- 6324 Jun, Anemia D64.9 ; Autonomic neuropathy G90.9 and Postural hypotension I95.1 [facility] [id number] [place] [address] 83697- 8081 Jun, [facility] [id number] [place] [address] 99931- 0060 May, Type 1 diabetes mellitus with complications E10.8 and Anemia D64.9 [facility] [id number] [place] [address] 31247- 9997 May, Low back pain M54.5 [facility] [id number] [place] [address] 58123- 3976 Apr, [facility] [id number] [place] [address] 58481- 0812 Apr, Low back pain M54.5 [facility] [id number] [place] [address] 35798- 0597 Apr, [facility] [id number] [place] [address] 56783- 8984 Apr, [facility] [id number] [place] [address] 86566- 0411 March, Low back pain M54.5 and Other chronic pain G89.29 [facility] [id number] [place] [address] 45878- 3574 March, Type 1 diabetes mellitus without complications E10.9 [facility] [id number] [place] [address] 93908- 1222 March, [facility] [id number] [place] [address] 97615- 9205 March, [facility] [id number] [place] [address] 53466- 5323 Feb, [facility] [id number] [place] [address] 29112- 8411 Feb, Type 1 diabetes mellitus without complications E10.9 [facility] [id number] [place] [address] 96029- 6361 Feb, Trochanteric bursitis, right hip M70.61 [facility] [id number] [place] [address] 54102- 0363 Jan, [place] [place] [id number] [place] [address] 46853- 3322 Jan, [place] [address] 62006- 1136 Dec, Type 1 diabetes mellitus with complications E10.8 [place] [address] 87255- 7962 Dec, [place] [address] 52400- 8860 Dec, Anemia D64.9 ; Autonomic neuropathy G90.9 and Postural hypotension I95.1 [place] [address] 96933- 9591 Dec, [place] [address] 45553- 0935 Nov, Sore throat J02.9 [place] [address] 15391- 8231 Nov, Type 1 diabetes mellitus with complications E10.8 [place] [address] 96135- 5942 Nov, 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 ; Proteinuria, unspecified R80.9 and Chronic kidney disease, unspecified N18.9 [place] [facility] [id number] [place] [address] 96453- 7262 Nov, [place] [address] 56611- 5983 Nov, Trochanteric bursitis, right hip M70.61 [place] [address] 32301- 0058 Nov, [place] [facility] [id number] [place] [address] 50007- 1547 Oct, [place] 33361- 6256 Oct, [facility] [address], [place] [address]- 6215 Oct, [facility] [id number] [place] [address] 03003- 7908 Sep, [facility] [id number] [place] [address] 19928- 9123 Sep, [facility] [id number] [place] [address] 73167- 8653 Sep, Type 2 diabetes mellitus with complication E11.8 and Right hip pain M25.551 [facility] [id number] [place] [address] 74223- 5278 Sep, [facility] [id number] [place] [address] 86344- 4137 Aug, [facility] [id number] [place] [address] 38504- 1839 Aug, [facility] [id number] [place] [address] 61182- 3663 Aug, [facility] [id number] [place] [address] 69856- 7806 Aug, Type 1 diabetes mellitus without complications E10.9 [facility] [id number] [place] [address] 65871- 2412 16 Jul, 2015 [facility] [id number] [place] [address] 76856- 8789 15 Jul, 2015 [facility] [id number] [place] [address] 00988- 9012 14 Jul, 2015 [facility] [id number] [place] [address] 29145- 0073 Jun, [facility] [id number] [place] [address] 06841- 1906 Jun, [facility] [id number] [place] [address] 36465- 8052 Jun, [facility] [address], [place] [address]- 6094 Jun, [facility] [id number] [place] [address] 661343- 7747 Jun, [facility] [id number] [place] [address] 48702- 3758 Jun, Diabetes mellitus without mention of complication, type I [ juvenile type], not stated as uncontrolled 250.01 [facility] [id number] [place] [address] 68664- 4220 May, [facility] [id number] [place] [address] 56606- 1411 May, [facility] [id number] [place] [address] 17564- 6499 May, [facility] [id number] [place] [address] 99838- 8752 May, Autonomic neuropathy 337.9 ; Postural hypotension 458.0 and Anemia 285.9 [facility] [id number] [place] [address] 79136- 1536 May, [facility] [id number] [place] [address] 90429- 2999 Apr, [facility] [id number] [place] [address] 33922- 2031 Apr, [facility] [id number] [place] [address] 39035- 6711 Apr, [facility] [id number] [place] [address] 15099- 4653 Apr, [facility] [id number] [place] [address] 20743- 4278 Apr, [facility] [id number] [place] [address] 93098- 9036 March, [facility] [place] [facility] [address] [id number] [place] [address]- 9506 March, [facility] [place] [facility] [address] [id number] [place] [address]- 8515 March, [facility] [place] [facility] [address] [id number] [place] [address]- 5916 March, [facility] [place] [facility] [address] [id number] [place] [address]- 2888 March, [facility] [place] [facility] [address] [id number] [place] [address]- 2701 Feb, [facility] [place] [facility] [address] [id number] [place] [address]- 0061 Feb, [facility] [place] [facility] [address] [id number] [place] [address]- 8759 Feb, [facility] [place] [facility] [address] [id number] [place] [address]- 6710 30 Jan, 2015 [facility] [place] [facility] [address] [id number] [place] [address]- 0456 Jan, [facility] [place] [facility] [address] [id number] [place] [address]- 0945 24 Jan, 2015 [facility] [place] [facility] [address] [id number] [place] [address]- 0777 Jan, [facility] [place] [facility] [address] [id number] [place] [address]- 8157 Jan, [facility] [place] [facility] [address] [id number] [place] [address]- 3572 Jan, [facility] [place] [facility] [address] [id number] [place] [address]- 0937 Jan, [facility] [place] [facility] [address] [id number] [place] [address]- 9206 04 Jan, 2015 [facility] [place] [facility] [address] [id number] [place] [address]- 9210 Jan, [facility] [place] [facility] [address] [id number] [place] [address]- 8469 Jan, [facility] [place] [facility] [address] [id number] [place] [address]- 1841 Jan, [facility] [place] [facility] [address] [id number] [place] [address]- 3763 Jan, [facility] [place] [facility] [address] [id number] [place] [address]- 1809 Jan, [facility] [place] [facility] [address] [id number] [place] [address]- 8492 Dec, [facility] [place] [facility] [address] [id number] [place] [address]- 8237 Dec, [facility] [place] [facility] [address] [id number] [place] [address]- 4501 Dec, [facility] [place] [facility] [address] [id number] [place] [address]- 7137 Dec, [facility] [place] [facility] [address] [id number], [place] [address] Dec, [facility] [place] [facility] [address] [id number] [place] [address] Dec, [facility] [place] [facility] [address] [id number], [place] [address] Dec, [facility] [place] [facility] [address] [id number], [place] [address] Dec, [facility] [place] [facility] [address] [id number], [place] [address] Nov, [facility] [place] [facility] [address] [id number], [place] [address] Nov, [facility] [place] [facility] [address] [id number], [place] [address] Nov, [facility] [place] [facility] [address] [id number] [place] [address] 14 Nov, 2014 [facility] [place] [facility] [address] [id number] [place] [address] 14 Nov, 2014 [facility] [place] [facility] [address] [id number] [place] [address] Nov, [facility] [place] [facility] [address] [id number] [place] [address] Nov, [facility] [place] [facility] [address] [id number] [place] [address] Nov, [facility] [place] [facility] [address] [id number] [place] [address] Nov, [facility] [place] [facility] [address] [id number] [place] [address] Oct, [facility] [place] [facility] [address] [id number] [place] [address] 30 Oct, 2014 [facility] [place] [facility] [address] [id number] [place] [address] Oct, [facility] [place] [facility] [address] [id number] [place] [address] Oct, [facility] [place] [facility] [address] [id number] [place] [address] 49[address] Oct, [facility] [place] [facility] [address] [id number] [place] [address] Oct, [facility] [place] [facility] [address] [id number] [place] [address] Oct, [facility] [place] [facility] [address] [id number] [place] [address] 2546 Oct, [facility] [place] [facility] [address] [id number] [place] [address] 17 Oct, 2014 [facility] [place] [facility] [address] [id number] [place] [address]- [address] Oct, [facility] [place] [facility] [address] [id number] [place] [address] Oct, [facility] [place] [facility] [address] [id number] [place] [address] Oct, [facility] [place] [facility] [address] [id number] [place] [address] 97[address] Oct, [facility] [place] [facility] [address] [id number] [place] [address] Oct, [facility] [place] [facility] [address] [id number] [place] [address] Sep, [facility] [place] [facility] [address] [id number] [place] [address] Sep, [facility] [place] [facility] [address] [id number] [place] [address]841 Sep, [facility] [place] [facility] [address] [id number], [place] [address] Sep, [facility] [place] [facility] [address] [id number] [place] [address] Aug, [facility] [place] [facility] [address] [id number] [place] [address] 1066 Aug, [facility] [place] [facility] [address] [id number], [place] [address] Aug, [facility] [place] [facility] [address] [id number], [place] [address] Aug, [facility] [place] [facility] [address] [id number] [place] [address] Aug, [facility] [place] [facility] [address] [id number], [place] [address] Aug, [facility] [place] [facility] [address] [id number], [place] [address] Aug, [facility] [place] [facility] [address] [id number] [place] [address] 06 Aug, 2013 [facility] [place] [facility] [address] [id number] [place] [address]- [address] 02 Aug, 2014 [facility] [place] [facility] [address] [id number] [place] [address] 02 Aug, 2014 [facility] [place] [facility] [address] [id number] [place] [address] 254 29 Jul, 2013 [facility] [place] [facility] [address] [id number] [place] [address]46 29 Jul, 2013 [facility] [place] [facility] [address] [id number] [place] [address] 29 Jul, 2013 [facility] [facility] [address] [id number] [place] [address] 29 Jul, 2013 [facility] [place] [facility] [address] [id number] [place] [address] 5438 22 Jul, 2013 [facility] [place] [facility] [address] [id number] [place] [address]- 2543 22 Jul, 2013 [facility] [place] [facility] [address] [id number] [place] [address] 2540 19 Jul, 2013 [facility] [place] [facility] [address] [id number] [place] [address]- 2541 19 Jul, 2013 [facility] [place] [facility] [address] [id number] [place] [address] 2546 11 Jul, 2013 [facility] [place] [facility] [address] [id number] [place] [address]- 2549 11 Jul, 2013 [facility] [place] [facility] [address] [id number] [place] [address] 2543 10 Jul, 2013 [facility] [place] [facility] [address] [id number] [place] [address]- 2546 10 Jul, 2013 [facility] [place] [facility] [address] [id number] [place] [address] 2546 08 Jul, 2013 [facility] [place] [facility] [address] [id number] [place] [address]- 7770 08 Jul, 2013 [facility] [place] [facility] [address] [id number] [place] [address]- 4601 Jul, 2013 [facility] [place] [facility] [address] [id number] [place] [address]- 7522 Jul, 2013 [facility] [place] [facility] [address] [id number] [place] [address]- 5109 Jul, 2013 [facility] [place] [facility] [address] [id number] [place] [address]- 6821 Jul, [facility] [place] [facility] [address] [id number] [place] [address]- 4417 Jun, [facility] [place] [facility] [address] [id number] [place] [address]- 4991 Jun, [facility] [place] [facility] [address] [id number] [place] [address]- 9500 Jun, [facility] [place] [facility] [address] [id number] [place] [address]- 6723 Jun, [facility] [place] [facility] [address] [id number] [place] [address]- 6796 Jun, [facility] [place] [facility] [address] [id number] [place] [address]- 7470 Jun, [facility] [place] [facility] [address] [id number] [place] [address]- 6641 Jun, [facility] [place] [address] [id number] [place] [address]- 4116 Jun, [facility] [place] [address] [id number] [place] [address]- 6904 Jun, [facility] [place] [facility] [address] [id number] [place] [address]- 5170 Jun, [facility] [place] [address] [id number] [place] [address]- 0723 Jun, [facility] [place] [address] [id number] [place] [address]- 9592 Jun, [facility] [place] [facility] [address] [id number] [place] [address]- 6881 Jun, [facility] [address] [id number] [place] [address]- 3575 Jun, [facility] [address] [id number] [place] [address]- 5331 Jun, [facility] [place] [facility] [address] [id number] [place] [address]- 8078 May, [facility] [place] [address] [id number] [place] [address]- 3700 May, [facility] [address] [id number] [place] [address]- 9641 May, [facility] [place] [address] [id number] [place] [address]- 6647 May, [facility] [place] [address] [id number] [place] [address]- 8568 May, [facility] [address] [id number] [place] [address]- 2152 May, [facility] [place] [address] [id number] [place] [address]- 1187 May, [facility] [place] [address] [id number] [place] [address]- 2777 May, [facility] [place] [address] [id number] [place] [address]- 1330 Apr, [facility] [place] [address] [id number] [place] [address]- 6625 Apr, [facility] [place] [address] [id number] [place] [address]- 5337 Apr, [facility] [address] [id number] [place] [address]- 3369 Apr, [facility] [address] [id number] [place] [address]- 4430 Apr, [facility] [address] [id number] [place] [address]- 4866 Apr, [facility] [address] [id number] [place] [address]- 0207 Apr, [facility] [address] [id number] [place] [address]- 4874 Apr, [facility] [address] [id number] [place] [address]- 9342 Apr, [facility] [address] [id number] [place] [address]- 9779 Apr, [facility] [address] [id number] [place] [address]- 4356 Apr, [facility] [address] [id number] [place] [address]- 8331 Apr, [facility] [address] [id number] [place] [address]- 0800 Apr, [facility] [address] [id number] [place] [address]- 1638 Apr, [facility] [address] [id number] [place] [address]- 0297 Apr, [facility] [address] [id number] [place] [address]- 2282 Apr, [facility] [address] [id number] [place] [address]- 1189 Apr, [facility] [address] [id number] [place] [address]- 0840 Apr, [facility] [address] [id number] [place] [address]- 6712 March, [facility] [address] [id number] [place] [address]- 4204 March, [facility] [address] [id number] [place] [address]- 1535 March, [facility] [address] [id number] [place] [address]- 8699 March, [facility] [address] [id number] [place] [address]- 2800 March, [facility] [address] [id number] [place] [address]- 6170 March, [facility] [address] [id number] [place] [address]- 5368 March, [facility] [address] [id number] [place] [address]- 1296 March, [facility] [address] [id number] [place] [address]- 9246 March, [facility] [address] [id number] [place] [address]- 7524 Feb, [facility] [address] [id number] [place] [address]- 4766 Feb, [facility] [address] [id number] [place] [address]- 4385 Feb, [facility] [address] [id number] [place] [address]- 2014 Feb, [facility] [address] [id number] [place] [address]- 2634 Feb, [facility] [address] [id number] [place] [address]- 5083 Feb, [facility] [address] [id number] [place] [address]- 7785 Feb, [facility] [address] [id number] [place] [address]- 2246 Feb, [facility] [address] [id number] [place] [address]- 6143 Feb, [facility] [address] [id number] [place] [address]- 4018 Feb, [facility] [address] [id number] [place] [address]- 3106 Feb, [facility] [address] [id number] [place] [address]- 4770 Feb, [facility] [address] [id number] [place] [address]- 8486 Feb, [facility] [address] [id number] [place] [address]- 8175 Jan, [facility] [address] [id number] [place] [address]- 4680 Jan, [facility] [address] [id number] [place] [address]- 7234 Jan, [facility] [address] [id number] [place] [address]- 4999 Jan, [facility] [address] [id number] [place] [address]- 0576 Jan, [facility] [address] [id number] [place] [address]- 0904 Jan, [facility] [address] [id number] [place] [address]- 8206 Jan, [facility] [address] [id number] [place] [address]- 8756 Jan, [facility] [address] [id number] [place] [address]- 3022 Dec, [facility] [address] [id number] [place] [address]- 3805 Dec, [facility] [address] [id number] [place] [address]- 0073 Dec, [facility] [address] [id number] [place] [address]- 8466 Dec, [facility] [address] [id number] [place] [address]- 6676 Dec, [facility] [address] [id number] [place] [address]- 8296 Dec, [facility] [address] [id number] [place] [address]- 6176 Dec, [facility] [address] [id number] [place] [address]- 4266 Dec, [facility] [address] [id number] [place] [address]- 1996 Dec, [facility] [address] [id number] [place] [address]- 1237 Dec, [facility] [address] [id number] [place] [address]- 0015 Nov, [facility] [address] [id number] [place] [address]- 5206 Nov, [facility] [address] [id number] [place] [address]- 1603 Nov, [facility] [address] [id number] [place] [address]- 3885 Nov, [facility] [address] [id number] [place] [address]- 2274 Nov, [facility] [address] [id number] [place] [address]- 6717 Nov, [facility] [address] [id number] [place] [address]- 9841 Nov, [facility] [address] [id number] [place] [address]- 0206 03 Nov, 2013 [facility] [address] [id number] [place] [address]- 2437 Nov, [facility] [address] [id number] [place] [address]- 3994 Nov, [facility] [address] [id number] [place] [address]- 1089 19 Oct, 2013 [facility] [address] [id number] [place] [address]- 4183 19 Oct, 2013 [facility] [address] [id number] [place] [address]- 9030 18 Oct, 2013 [facility] [address] [id number] [place] [address]- 2499 18 Oct, 2013 [facility] [address] [id number] [place] [address]- 8308 17 Oct, 2013 [facility] [address] [id number] [place] [address]- 7341 17 Oct, 2013 [facility] [address] [id number] [place] [address]- 2154 16 Oct, 2013 [facility] [address] [id number] [place] [address]- 2425 16 Oct, 2013 [facility] [address] [id number] [place] [address]- 6322 11 Oct, 2013 [facility] [address] [id number] [place] [address]- 8712 11 Oct, 2013 [facility] [address] [id number] [place] [address]- 1039 04 Oct, 2013 [facility] [address] [id number] [place] [address]- 7477 04 Oct, 2013 [facility] [address] [id number] [place] [address]- 9337 04 Oct, 2013 [facility] [address] [id number] [place] [address]- 8097 Oct, [facility] [address] [id number] [place] [address]- 7076 Sep, [facility] [address] [id number] [place] [address]- 4297 Sep, [facility] [address] [id number] [place] [address]- 4196 Sep, [facility] [address] [id number] [place] [address]- 7204 Sep, [facility] [address] [id number] [place] [address]- 9638 Sep, [facility] [address] [id number] [place] [address]- 5715 Sep, [facility] [address] [id number] [place] [address]- 6203 Aug, [facility] [address] [id number] [place] [address]- 6425 Aug, [facility] [address] [id number] [place] [address]- 2114 Aug, [facility] [address] [id number] [place] [address]- 5728 Aug, [facility] [address] [id number] [place] [address]- 0417 Aug, [facility] [address] [id number] [place] [address]- 5612 10 Aug, 2013 [facility] [address] [id number] [place] [address]- 9883 Aug, [facility] [address] [id number] [place] [address]- 2925 Aug, [facility] [address] [id number] [place] [address]- 4255 02 Aug, 2013 [facility] [address] [id number] [place] [address]- 3781 25 Jul, 2012 [facility] [address] [id number] [place] [address]- 8776 23 Jul, 2012 [facility] [address] [id number] [place] [address] 2540 21 Jul, 2012 [facility] [address] [id number] [place] [address]- 3613 20 Jul, 2012 [facility] [address] [id number] [place] [address]- 3398 18 Jul, 2012 [facility] [address] [id number] [place] [address]- 4444 17 Jul, 2012 [facility] [place] [address] [id number] [place] [address]- 1359 16 Jul, 2012 [facility] [place] [address] [id number] [place] [address]- 7558 11 Jul, 2012 [facility] [address] [id number] [place] [address]- 0668 09 Jul, 2012 [facility] [place] [address] [id number] [place] [address]- 6032 09 Jul, 2012 [facility] [place] [address] [id number] [place] [address]- 8423 06 Jul, 2012 [facility] [place] [address] [id number], [place] [address]- 0471 03 Jul, 2012 [facility] [address] [id number] [place] [address]- 7794 Jun, [facility] [place] [facility] [address] [id number] [place] [address]- 0927 Jun, [facility] [place] [facility] [address] [id number] [place] [address]- 6118 Jun, [facility] [place] [facility] [address] [id number] [place] [address]- 6283 Jun, [facility] [address] [id number] [place] [address]- 6024 Jun, [facility] [address] [id number] [place] [address]- 0590 Jun, [facility] [address] [id number] [place] [address]- 6390 Jun, [facility] [address] [id number] [place] [address]- 2983 Jun, [facility] [address] [id number] [place] [address]- 2183 Jun, [facility] [address] [id number] [place] [address]- 8688 May, [facility] [address] [id number] [place] [address]- 6899 May, [facility] [address] [id number] [place] [address]- 0059 May, [facility] [address] [id number] [place] [address]- 4157 May, [facility] [address] [id number] [place] [address]- 9045 May, [facility] [address] [id number] [place] [address]- 8234 May, [facility] [address] [id number] [place] [address]- 254 May, [facility] [place] [facility] [address] [id number] [place] [address]- 7673 March, [facility] [address] [id number] [place] [address]- 2546 March, [facility] [address] [id number] [place] [address]- 1019 March, [facility] [place] [facility] [address] [id number] [place] [address]- 1548 Dec, [facility] [place] [facility] [address] [id number] [place] [address]- 8346 Nov, [facility] [place] [facility] [address] [id number] [place] [address]- 0908 Aug, [facility] [place] [facility] [address] [id number] [place] [address]- 5806 Aug, [facility] [place] [facility] [address] [id number] [place] [address]- 9929 Jun, [facility] [place] [facility] [address] [id number] [place] [address]- 8836 Jun, [facility] [place] [facility] [address] [id number] [place] [address]- 3365 Jun, [facility] [place] [facility] [address] [id number] [place] [address]- 3722 Jun, [facility] [place] [facility] [address] [id number] [place] [address]- 7535 May, [facility] [place] [facility] [address] [id number] [place] [address]- 6810 May, [facility] [place] [facility] [address] [id number] [place] [address]- 3946 May, [facility] [place] [facility] [address] [id number] [place] [address]- 0985 May, [facility] [place] [facility] [address] [id number] [place] [address]- 1688 May, [facility] [place] [facility] [address] [id number] [place] [address]- 4306 May, [facility] [place] [facility] [address] [id number] [place] [address]- 8546 May, [facility] [place] [facility] [address] [id number], [place] [address]- 0393 Apr, [facility] [address] [id number] [place] [address]- 9117 Apr, [facility] [place] [facility] [address] [id number] [place] [address]- 8988 Apr, [facility] [address] [id number] [place] [address]- 7709 Apr, [facility] [place] [facility] [address] [id number] [place] [address]- 8395 March, [facility] [address] [id number] [place] [address]- 4749 March, [facility] [place] [facility] [address] [id number] [place] [address]- 6406 March, [facility] [address] [id number] [place] [address]- 1268 March, [facility] [address] [id number] [place] [address]- 4847 March, [facility] [address] [id number] [place] [address]- 2651 March, [facility] [place] [facility] [address] [id number] [place] [address]- 9734 March, [facility] [address] [id number] [place] [address]- 0590 March, [facility] [place] [facility] [address] [id number] [place] [address]- 7767 March, [facility] [place] [facility] [address] [id number] [place] [address] Feb, [facility] [place] [facility] [address] [id number] [place] [address] Feb, [facility] [place] [facility] [address] [id number] [place] [address] Jan, [facility] [place] [facility] [address] [id number] [place] [address] 27 Jan, 2012 [facility] [place] [facility] [address] [id number] [place] [address] 16 Jan, 2012 [facility] [place] [facility] [address] [id number] [place] [address] 05 Jan, 2012 [facility] [place] [facility] [address] [id number] [place] [address] 20 Dec, 2011 [facility] [place] [facility] [address] [id number] [place] [address] 16 Dec, 2011 [facility] [place] [facility] [address] [id number] [place] [address] 15 Dec, 2011 [facility] [place] [facility] [address] [id number] [place] [address] 30 Nov, 2011 [facility] [place] [facility] [address] [id number] [place] [address] Oct, [facility] [place] [facility] [address] [id number] [place] [address] 15 Oct, 2011 [facility] [place] [facility] [address] [id number] [place] [address] 15 Oct, 2011 [facility] [place] [facility] [address] [id number] [place] [address] 14 Oct, 2011 [facility] [place] [facility] [address] [id number] [place] [address] 14 Oct, 2011 [facility] [place] [facility] [address] [id number] [place] [address] 12 Oct, 2011 [facility] [place] [facility] [address] [id number] [place] [address] 09 Oct, 2011 [facility] [place] [facility] [address] [id number] [place] [address] Oct, [facility] [place] [facility] [address] [id number], [place] [address] Sep, [facility] [address] [id number], [place] [address] Sep, [facility] [address] [id number], [place] [address] Sep, [facility] [address] [id number], [place] [address] Sep, [facility] [address] [id number], [place] [address] Sep, [facility] [address] [id number], [place] [address] Sep, [facility] [id number] [place] [address] Sep, [facility] [id number], [place] [address] Sep, [facility] [id number], [place] [address] Sep, [facility] [address] [id number], [place] [address] Aug, [facility] [id number], [place] [address] Jul, [facility] [address] [id number], [place] [address] Oct, [facility] [id number], [place] [address] Oct, [facility] [address] [id number], [place] [address] Oct, IMMUNIZATIONS No Known Immunizations SOCIAL HISTORY Never Assessed REASON FOR VISIT refill PLAN OF CARE VITAL SIGNS MEDICATIONS Medication Instructions Dosage Frequency Start Date End Date Duration Status NovoLog 100 UNIT/ML Subcutaneous per insulin pump as directed 28 Active RESULTS No Results PROCEDURES No Known procedures INSTRUCTIONS MEDICATIONS ADMINISTERED No Known Medications MEDICAL (GENERAL) HISTORY Type Description Date Medical History Diabetic Surgical History Bilat tubal ligation Hospitalization History Diabetic multiple hospitalizations
[2018-06-06] MEDS: TETRACAINE 0.5% OPHTH SOLN 4 ML BTL (SINGLE DOSE ONLY) OU PRN ×4 (09:15→09:31)
[2018-06-06] MEDS ORDERED: POVIDONE (BETADINE) OPHTH SOLN 5% 30 ML OP ONE (09:15)
[2018-06-06] MEDS ORDERED: EPINEPHrine INJECTION 1 MG/ML AMP INJ ONE (09:15)
[2018-06-06] MEDS ORDERED: TIMOLOL MALEATE 0.5% 5 ML (TIMOPTIC) BTL OU PRN (09:15)
[2018-06-06] MEDS ORDERED: VANCOMYCIN/BSS (COMPOUNDED) 10 MG/ML SYR OP ONE (09:15)
[2018-06-06] MEDS ORDERED: LIDOCAINE PF 1% 2 ML AMP IR PRN (09:15)
--- OUTSIDE RECORDS SUMMARY | 2018-06-06 09:15 | XMS REPORT ---
Author Author ALAN CARABALLO [facility] Address [address] [place] [address] Care Team Providers Care Manager Of Construction Name Role Phone ALAN CARABALLO Unavailable PROBLEMS Type Condition ICD9-CM Code [id number] Code Onset Dates Condition Status SNOMED Code Problem Type 1 diabetes mellitus without complications E10.9 Active 132729325 Problem Other insomnia G47.09 Active 965216840 Problem Low back pain M54.5 Active 626073233 Problem Migraine with aura and without status migrainosus, not intractable G43.109 Active 2339658 Problem Menorrhagia with regular cycle N92.0 Active 548048667 Problem Chronic kidney disease, stage 4 (severe) N18.4 Active 157199190 Problem Migraine without aura and without status migrainosus, not intractable G43.009 Active 033648661 Problem Autonomic neuropathy G90.9 Active 970554874 Problem Dysthymia F34.1 Active 24186257 Problem Type 1 diabetes mellitus with hypoglycemia without coma E10.649 Active 72036613 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 96222927 Problem Type 1 diabetes mellitus with hyperglycemia E10.65 Active 86266710 Problem Migraine G43.909 Active 47409799 Problem Irritable bowel K58.9 Active 68250896 Problem Proteinuria, unspecified R80.9 Active 32036913 Problem Anemia, unspecified D64.9 Active 526975343 Problem Chronic kidney disease, unspecified N18.9 Active 061606073 Problem Restless legs syndrome G25.81 Active 939713485 ALLERGIES No Information ENCOUNTERS Encounter Location Date Diagnosis [facility] [id number] [address] May, [facility] [address] [facility] [id number] [address] May, [facility] [address] [address] 7362 Apr, Low back pain M54.5 [facility] [id number] [place] [address] 60819- 0050 Apr, [facility] [id number] [place] [address] 10308- 8415 Apr, [facility] [id number] [place] [address] 07800- 4520 March, [facility] [id number] [place] [address] 58930- 4605 March, Low back pain M54.5 [facility] [id number] [place] [address] 31823- 4478 March, [facility] [id number] [place] [address] 56516- 2767 Feb, [facility] [id number] [place] [address] 75119- 7887 Feb, Low back pain M54.5 [facility] [id number] [place] [address] 69550- 9956 Jan, Restless legs syndrome G25.81 [facility] [id number] [place] [address] 61663- 0969 Jan, Low back pain M54.5 [facility] [id number] [place] [address] 08865- 9579 Jan, [facility] [id number] [place] [address] 38498- 8966 Jan, Type 1 diabetes mellitus without complications E10.9 ; Low back pain M54.5 ; Cough R05 ; Diarrhea, unspecified type R19.7 ; Migraine without aura and without status migrainosus, not intractable G43.009 and Uses control Z30.9 [facility] [address] [address] 7633 Dec, Low back pain M54.5 [facility] [id number] [place] [address] 02369- 7930 Dec, [facility] [address] [address]372 360 Nov, Well woman exam Z01.419 ; Menorrhagia with regular cycle N92.0 ; Vaginal dryness N89.8 and Migraine with aura and without status migrainosus, not intractable G43.109 [facility] [address] [address]- 1428 Nov, [address] [address] 27403- 1235 Nov, Low back pain M54.5 [place] [address] 35570- 4244 Oct, Low back pain M54.5 [facility] [address] 21493- 0407 Oct, Migraine without aura and without status migrainosus, not intractable G43.009 [place] [address] 40859- 0984 Sep, Low back pain M54.5 [facility] [address] 28761- 7184 Sep, [facility] [address] 69346- 6058 Sep, Migraine without aura and without status migrainosus, not intractable G43.009 [facility] [id number] [place] [address] 06925- 8259 Sep, Type 1 diabetes mellitus with hypoglycemia without coma E10.649 ; Anemia D64.9 ; Migraine without aura and without status migrainosus, not intractable G43.009 ; Chronic kidney disease, unspecified N18.9 ; Autonomic neuropathy G90.9 and Postural hypotension I95.1 [place] [address] [place] [address]- 5418 Sep, Low back pain M54.5 [facility] [id number] [place] [address] 79621- 6608 Aug, Low back pain M54.5 [facility] [id number] [place] [address] 25341- 9483 Jul, [facility] [id number] [place] [address] 61074- 2930 Jul, Low back pain M54.5 [facility] [id number] [place] [address] 85741- 1140 Jun, [facility] [id number] [place] [address] 05645- 9926 Jun, Low back pain M54.5 [facility] [id number] [place] [address] 16390- 3031 Jun, Migraine without aura and without status migrainosus, not intractable G43.009 [facility] [id number] [place] [address] 05189- 9554 Jun, Type 1 diabetes mellitus with hyperglycemia E10.65 ; Dysthymia F34.1 and Migraine without aura and without status migrainosus, not intractable G43.009 [facility] [id number] [place] [address] 00323- 0608 Jun, [facility] [id number] [place] [address] 55212- 5791 May, Type 1 diabetes mellitus with hyperglycemia E10.65 [facility] [id number] [place] [address] 74759- 0456 May, Low back pain M54.5 [facility] [id number] [place] [address] 27165- 0429 May, Type 1 diabetes mellitus with hyperglycemia E10.65 [facility] [id number] [place] [address] 10542- 9559 Apr, [facility] [address] [address]- 0607 Apr, Chronic kidney disease, stage 4 (severe) N18.4 [facility] [id number] [place] [address] 43435- 6514 Apr, Low back pain M54.5 [facility] [id number] [place] [address] 57214- 0205 March, [facility] [id number] [place] [address] 09515- 6861 March, Low back pain M54.5 [facility] [id number] [place] [address] 32923- 3471 Feb, [facility] [id number] [place] [address] 22669- 1036 Feb, [facility] [id number] [place] [address] 06260- 1961 Feb, Low back pain M54.5 [facility] [id number] [place] [address] 24064- 5884 Feb, Low back pain M54.5 [facility] [id number] [place] [address] 22688- 1723 Feb, Migraine without aura and without status migrainosus, not intractable G43.009 [facility] [id number] [place] [address] 42404- 4528 Feb, [facility] [id number] [place] [address] 38040- 2923 Jan, Low back pain M54.5 [facility] [address] [place] [address] 98019- 8369 Jan, Type 1 diabetes mellitus without complications E10.9 ; Anemia D64.9 ; Chronic kidney disease, unspecified N18.9 ; Migraine without aura and without status migrainosus, not intractable G43.009 and Other insomnia G47.09 [facility] [id number] [place] [address] 47490- 7986 Jan, [facility] [id number] [place] [address] 47342- 3582 Dec, Low back pain M54.5 [facility] [id number] [place] [address] 80472- 7690 Dec, [facility] [address] 98529- 0315 Dec, [facility] [facility] [id number] [place] [address] 99143- 3455 Dec, Shortness of breath R06.02 ; Type 1 diabetes mellitus without complications E10.9 and Leg swelling M79.89 [place] [facility] [id number] [place] [address] 84297- 1126 Nov, Low back pain M54.5 [facility] [id number] [place] [address] 52578- 0758 Nov, Viral syndrome B34.9 [place] [address] 51204- 5755 Oct, Low back pain M54.5 [facility] [id number] [place] [address] 10714- 3414 Oct, [facility] [id number] [place] [address] 25796- 2857 Oct, Low back pain M54.5 [facility] [id number] [place] [address] 56905- 0244 Sep, [facility] [id number] [place] [address] 70144- 1244 Sep, Fatigue, unspecified type R53.83 ; Type 1 diabetes mellitus without complications E10.9 and Anemia D64.9 [facility] [id number] [place] [address] 55933- 5941 Sep, Low back pain M54.5 [facility] [id number] [place] [address] 18708- 5584 Sep, Type 1 diabetes mellitus with hyperglycemia E10.65 [facility] [id number] [place] [address] 00594- 3446 Aug, Type 1 diabetes mellitus without complications E10.9 [facility] [id number] [place] [address] 32059- 9040 Aug, [facility] [id number] [place] [address] 81165- 2305 Aug, [facility] [id number] [place] [address] 31526- 8812 Jul, [facility] [id number] [place] [address] 92785- 6793 14 Jul, 2016 Low back pain M54.5 [facility] [id number] [place] [address] 54058- 9578 12 Jul, 2016 Hyperkalemia, diminished renal excretion E87.5 [facility] [id number] [place] [address] 00012- 4642 09 Jul, 2016 Hyperkalemia, diminished renal excretion E87.5 [facility] [id number] [place] [address] 04535- 9826 Jun, [facility] [id number] [place] [address] 79250- 8686 Jun, Low back pain M54.5 [facility] [id number] [place] [address] 07622- 6089 Jun, Anemia D64.9 ; Autonomic neuropathy G90.9 and Postural hypotension I95.1 [facility] [id number] [place] [address] 89640- 8395 Jun, [facility] [id number] [place] [address] 85918- 1190 May, Type 1 diabetes mellitus with complications E10.8 and Anemia D64.9 [facility] [id number] [place] [address] 19857- 5013 May, Low back pain M54.5 [facility] [address] [facility] [id number] [place] [address] 04179- 3454 Apr, [facility] [id number] [place] [address] 69964- 7953 Apr, Low back pain M54.5 [facility] [id number] [place] [address] 65153- 3870 Apr, [facility] [id number] [place] [address] 59097- 6422 Apr, [facility] [id number] [place] [address] 30360- 0849 March, Low back pain M54.5 and Other chronic pain G89.29 [facility] [id number] [place] [address] 29095- 5202 March, Type 1 diabetes mellitus without complications E10.9 [facility] [id number] [place] [address] 42164- 4806 March, [facility] [id number] [place] [address] 85569- 6571 March, [facility] [id number] [place] [address] 37260- 2520 Feb, [facility] [address] [place] [address] 52856- 2946 Feb, Type 1 diabetes mellitus without complications E10.9 [facility] [id number] [place] [address] 05232- 0758 Feb, Trochanteric bursitis, right hip M70.61 [facility] [address] [place] [address] 74377- 9491 Jan, [facility] [facility] [id number] [place] [address] 10911- 2890 Jan, [place] [address] 30031- 9235 Dec, Type 1 diabetes mellitus with complications E10.8 [place] [address] 17356- 0036 Dec, [place] [address] 43237- 2512 Dec, Anemia D64.9 ; Autonomic neuropathy G90.9 and Postural hypotension I95.1 [place] [address] 03710- 9544 Dec, [place] [address] 36474- 2200 Nov, Sore throat J02.9 [place] [address] 88676- 4666 Nov, Type 1 diabetes mellitus with complications E10.8 [place] [address] 41961- 9725 Nov, 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 ; Proteinuria, unspecified R80.9 and Chronic kidney disease, unspecified N18.9 [place] [id number] [place] [address] 58192- 9824 Nov, [place] [address] 64407- 6085 Nov, Trochanteric bursitis, right hip M70.61 [place] [address] 69960- 7401 Nov, [place] [id number] [place] [address] 32252- 6528 Oct, [place] [address] 80794- 0821 Oct, [facility] [address] [address]- 0103 Oct, [facility] [id number] [place] [address] 82266- 1499 Sep, [facility] [id number] [place] [address] 65608- 5135 Sep, [facility] [id number] [place] [address] 10112- 1439 Sep, Type 2 diabetes mellitus with complication E11.8 and Right hip pain M25.551 [facility] [id number] [place] [address] 05243- 2878 Sep, [facility] [id number] [place] [address] 47207- 0519 Aug, [facility] [id number] [place] [address] 27702- 3036 Aug, [facility] [id number] [place] [address] 10034- 8779 Aug, [facility] [id number] [place] [address] 12305- 3275 Aug, Type 1 diabetes mellitus without complications E10.9 [facility] [id number] [place] [address] 62748- 1804 16 Jul, 2015 [facility] [address] [place] [address] 61043- 8449 15 Jul, 2015 [facility] [address] [place] [address] 90973- 4503 14 Jul, 2015 [facility] [id number] [place] [address] 46988- 1995 Jun, [facility] [address] [place] [address] 09273- 3323 Jun, [facility] [id number] [place] [address] 55083- 0980 Jun, [facility] [address] [address]- 1171 Jun, [facility] [address] [place] [address] 391551- 1228 Jun, [facility] [id number] [place] [address] 98571- 0546 Jun, Diabetes mellitus without mention of complication, type I [ juvenile type], not stated as uncontrolled 250.01 [facility] [id number] [place] [address] 54807- 3542 May, [facility] [id number] [place] [address] 69701- 0958 May, [facility] [id number] [place] [address] 68250- 0206 May, [facility] [id number] [place] [address] 09633- 0788 May, Autonomic neuropathy 337.9 ; Postural hypotension 458.0 and Anemia 285.9 [facility] [id number] [place] [address] 25098- 0388 May, [facility] [id number] [place] [address] 27173- 8878 Apr, [facility] [address] [place] [address] 62524- 4429 Apr, [facility] [address] [place] [address] 66728- 4071 Apr, [facility] [id number] [place] [address] 72020- 4870 Apr, [facility] [id number] [place] [address] 36438- 5858 Apr, [facility] [id number] [place] [address] 80549- 7538 March, [facility] [place] [facility] [address] [id number] [place] [address]- 6641 March, [facility] [place] [facility] [address] [id number] [place] [address]- 9149 March, [facility] [place] [facility] [address] [id number] [place] [address]- 6306 March, [facility] [place] [facility] [address] [id number] [place] [address]- 0697 March, [facility] [place] [facility] [address] [id number] [place] [address]- 8958 Feb, [facility] [place] [facility] [address] [id number] [place] [address]- 5594 Feb, [facility] [place] [facility] [address] [id number] [place] [address]- 1417 Feb, [facility] [place] [facility] [address] [id number] [place] [address]- 3319 30 Jan, 2015 [facility] [place] [facility] [address] [id number] [place] [address]- 7276 Jan, [facility] [place] [facility] [address] [id number] [place] [address]- 2966 24 Jan, 2015 [facility] [place] [facility] [address] [id number] [place] [address]- 9025 Jan, [facility] [place] [facility] [address] [id number] [place] [address]- 5225 Jan, [facility] [place] [facility] [address] [id number] [place] [address]- 0262 Jan, [facility] [place] [facility] [address] [id number] [place] [address]- 1514 Jan, [facility] [place] [facility] [address] [id number] [place] [address]- 4036 04 Jan, 2015 [facility] [place] [facility] [address] [id number] [place] [address]- 3726 Jan, [facility] [place] [facility] [address] [id number] [place] [address]- 7134 Jan, [facility] [place] [facility] [address] [id number] [place] [address]- 0201 Jan, [facility] [place] [facility] [address] [facility] [id number] [place] [address]- 5704 Jan, [facility] [place] [facility] [address] [id number] [place] [address]- 6356 Jan, [facility] [place] [facility] [address] [id number] [place] [address]- 4114 Dec, [facility] [place] [facility] [address] [id number] [place] [address]- 8516 Dec, [facility] [place] [facility] [address] [facility] [id number] [place] [address]- 0455 Dec, [facility] [place] [facility] [address] [id number] [place] [address]- 5661 Dec, [facility] [place] [facility] [address] [facility] [id number] [address]- 4979 Dec, [facility] [place] [facility] [address] [facility] [id number] [place] [address]- 0106 Dec, [facility] [place] [facility] [address] [facility] [id number] [place] [address]- 8602 Dec, [facility] [place] [facility] [address] [facility] [id number] [place] [address]- 2167 Dec, [facility] [place] [facility] [address] [facility] [id number] [place] [address]- 6929 Nov, [facility] [place] [facility] [address] [facility] [id number] [place] [address]- 5248 Nov, [facility] [place] [facility] [address] [facility] [id number] [place] [address]- 0059 Nov, [facility] [place] [facility] [address] [id number] [place] [address]- 2800 14 Nov, 2014 [facility] [place] [facility] [address] [id number] [place] [address]- 3978 14 Nov, 2014 [facility] [place] [facility] [address] [id number] [place] [address] Nov, [facility] [place] [facility] [address] [id number] [place] [address] Nov, [facility] [place] [facility] [address] [id number] [place] [address] Nov, [facility] [place] [facility] [address] [id number] [place] [address] Nov, [facility] [place] [facility] [address] [id number] [place] [address] Oct, [facility] [place] [facility] [address] [id number] [place] [address] 30 Oct, 2014 [facility] [place] [facility] [address] [id number] [place] [address] Oct, [facility] [place] [facility] [address] [id number] [place] [address] Oct, [facility] [place] [facility] [address] [id number] [place] [address] Oct, [facility] [place] [facility] [address] [id number] [place] [address] Oct, [facility] [place] [facility] [address] [id number] [place] [address] Oct, [facility] [place] [facility] [address] [id number] [place] [address] Oct, [facility] [place] [facility] [address] [id number] [place] [address] 17 Oct, 2014 [facility] [place] [facility] [address] [id number] [place] [address] Oct, [facility] [place] [facility] [address] [id number] [place] [address] Oct, [facility] [place] [facility] [address] [id number] [place] [address] Oct, [facility] [place] [facility] [address] [id number] [place] [address] Oct, [facility] [place] [facility] [address] [id number] [place] [address] Oct, [facility] [place] [facility] [address] [id number] [place] [address] Sep, [facility] [place] [facility] [address] [id number] [place] [address] Sep, [facility] [place] [facility] [address] [id number] [place] [address] Sep, [facility] [place] [facility] [address] [id number] [place] [address] Sep, [facility] [place] [facility] [address] [id number] [place] [address] Aug, [facility] [place] [facility] [address] [id number] [place] [address] Aug, [facility] [place] [facility] [address] [id number] [place] [address] Aug, [facility] [place] [facility] [address] [id number] [place] [address] Aug, [facility] [place] [facility] [address] [id number] [place] [address] Aug, [facility] [place] [facility] [address] [id number] [place] [address] Aug, [facility] [place] [facility] [address] [id number] [place] [address] Aug, [facility] [place] [facility] [address] [id number] [place] [address] 06 Aug, 2013 [facility] [place] [facility] [address] [id number] [place] [address] 02 Aug, 2014 [facility] [place] [facility] [address] [id number] [place] [address] 02 Aug, 2014 [facility] [place] [facility] [address] [id number] [place] [address] 29 Jul, 2013 [facility] [place] [facility] [address] [id number] [place] [address] 29 Jul, 2013 [facility] [place] [facility] [address] [id number] [place] [address] 2569 29 Jul, 2013 [facility] [place] [facility] [address] [id number] [place] [address] 6604 29 Jul, 2013 [facility] [place] [facility] [address] [id number] [place] [address] 6711 22 Jul, 2013 [facility] [place] [facility] [address] [id number] [place] [address]- 2544 22 Jul, 2013 [facility] [place] [facility] [address] [id number] [place] [address] 254 19 Jul, 2013 [facility] [place] [facility] [address] [id number] [place] [address]- 2540 19 Jul, 2013 [facility] [place] [facility] [address] [id number] [place] [address] 2546 11 Jul, 2013 [facility] [place] [facility] [address] [id number] [place] [address]- 254 11 Jul, 2013 [facility] [place] [facility] [address] [id number] [place] [address] 2548 10 Jul, 2013 [facility] [place] [facility] [address] [id number] [place] [address]- 2546 10 Jul, 2013 [facility] [place] [facility] [address] [id number] [place] [address] 2546 08 Jul, 2013 [facility] [place] [facility] [address] [id number] [place] [address]- 6041 08 Jul, 2013 [facility] [place] [facility] [address] [id number] [place] [address]- 0796 Jul, 2013 [facility] [place] [facility] [address] [id number] [place] [address]- 2681 Jul, 2013 [facility] [place] [facility] [address] [id number] [place] [address]- 8548 Jul, 2013 [facility] [place] [facility] [address] [id number] [place] [address]- 0227 Jul, [facility] [place] [facility] [address] [id number] [place] [address]- 8340 Jun, [facility] [place] [facility] [address] [id number] [place] [address]- 0754 Jun, [facility] [place] [facility] [address] [id number] [place] [address]- 5790 Jun, [facility] [place] [facility] [address] [id number] [place] [address]- 3875 Jun, [facility] [place] [facility] [address] [id number] [place] [address]- 6682 Jun, [facility] [place] [facility] [address] [id number] [place] [address] 1941 Jun, [facility] [place] [facility] [address] [id number] [place] [address]- 0888 Jun, [facility] [place] [facility] [address] [id number] [place] [address]- 9188 Jun, [facility] [place] [facility] [address] [id number] [place] [address]- 8622 Jun, [facility] [place] [facility] [address] [id number] [place] [address]- 7769 Jun, [facility] [place] [facility] [address] [id number] [place] [address]- 3296 Jun, [facility] [place] [facility] [address] [id number] [place] [address]- 0529 Jun, [facility] [place] [facility] [address] [id number] [place] [address]- 7237 Jun, [facility] [place] [facility] [address] [id number] [place] [address]- 3533 Jun, [facility] [place] [facility] [address] [id number] [place] [address]- 1355 Jun, [facility] [place] [facility] [address] [id number] [place] [address]- 9566 May, [facility] [place] [facility] [address] [id number] [place] [address]- 0992 May, [facility] [place] [facility] [address] [id number] [place] [address]- 3819 May, [facility] [place] [facility] [address] [id number] [place] [address]- 0100 May, [facility] [place] [facility] [address] [id number] [place] [address]- 9185 May, [facility] [place] [facility] [address] [id number] [place] [address]- 7986 May, [facility] [place] [facility] [address] [id number] [place] [address]- 7780 May, [facility] [place] [facility] [address] [id number] [place] [address]- 1727 May, [facility] [place] [facility] [address] [id number] [place] [address]- 2290 Apr, [facility] [place] [facility] [address] [id number] [place] [address]- 6254 Apr, [facility] [place] [facility] [address] [id number] [place] [address]- 1539 Apr, [facility] [place] [facility] [address] [id number] [place] [address]- 2416 Apr, [facility] [place] [facility] [address] [id number] [place] [address]- 4084 Apr, [facility] [place] [facility] [address] [id number] [place] [address]- 4705 Apr, [facility] [place] [facility] [address] [id number] [place] [address]- 1028 Apr, [facility] [place] [facility] [address] [id number] [place] [address]- 5475 Apr, [facility] [place] [facility] [address] [id number] [place] [address]- 0989 Apr, [facility] [place] [facility] [address] [id number] [place] [address]- 0526 Apr, [facility] [place] [facility] [address] [id number] [place] [address]- 2767 Apr, [facility] [place] [facility] [address] [id number] [place] [address]- 4028 Apr, [facility] [place] [facility] [address] [id number] [place] [address]- 5845 Apr, [facility] [place] [facility] [address] [id number] [place] [address]- 9791 Apr, [facility] [place] [facility] [address] [id number] [place] [address]- 4241 Apr, [facility] [place] [facility] [address] [id number] [place] [address]- 5428 Apr, [facility] [place] [facility] [address] [id number] [place] [address]- 5447 Apr, [facility] [place] [facility] [address] [id number] [place] [address]- 1679 Apr, [facility] [place] [facility] [address] [id number] [place] [address]- 8610 March, [facility] [place] [facility] [address] [id number] [place] [address]- 2835 March, [facility] [place] [facility] [address] [id number] [place] [address]- 3405 March, [facility] [place] [facility] [address] [id number] [place] [address]- 3930 March, [facility] [place] [facility] [address] [id number] [place] [address]- 9709 March, [facility] [place] [facility] [address] [id number] [place] [address]- 2108 March, [facility] [place] [facility] [address] [id number] [place] [address]- 9071 March, [facility] [place] [facility] [address] [id number] [place] [address]- 8910 March, [facility] [place] [facility] [address] [id number] [place] [address]- 9950 March, [facility] [place] [facility] [address] [id number] [place] [address]- 2854 Feb, [facility] [place] [facility] [address] [id number] [place] [address]- 5375 Feb, [facility] [place] [facility] [address] [id number] [place] [address]- 1521 Feb, [facility] [place] [facility] [address] [id number] [place] [address]- 8503 Feb, [facility] [place] [facility] [address] [id number] [place] [address]- 4313 Feb, [facility] [place] [facility] [address] [id number] [place] [address]- 4334 Feb, [facility] [place] [facility] [address] [id number] [place] [address]- 5079 Feb, [facility] [place] [facility] [address] [id number] [place] [address]- 4273 Feb, [facility] [place] [facility] [address] [id number] [place] [address]- 0283 Feb, [facility] [place] [facility] [address] [id number] [place] [address]- 8623 Feb, [facility] [place] [facility] [address] [id number] [place] [address]- 5330 Feb, [facility] [place] [facility] [address] [id number] [place] [address]- 6286 Feb, [facility] [place] [facility] [address] [id number] [place] [address]- 9277 Feb, [facility] [place] [facility] [address] [id number] [place] [address]- 3564 Jan, [facility] [place] [facility] [address] [id number] [place] [address]- 1959 Jan, [facility] [place] [facility] [address] [id number] [place] [address]- 6154 Jan, [facility] [place] [facility] [address] [id number] [place] [address]- 1097 Jan, [facility] [place] [facility] [address] [id number] [place] [address]- 3326 Jan, [facility] [place] [facility] [address] [id number] [place] [address]- 6194 Jan, [facility] [place] [facility] [address] [id number] [place] [address]- 6747 Jan, [facility] [place] [facility] [address] [id number] [place] [address]- 5333 Jan, [facility] [place] [facility] [address] [id number] [place] [address]- 3623 Dec, [facility] [place] [facility] [address] [id number] [place] [address]- 3921 Dec, [facility] [place] [facility] [address] [id number] [place] [address]- 8999 Dec, [facility] [place] [facility] [address] [id number] [place] [address]- 8626 Dec, [facility] [place] [facility] [address] [id number] [place] [address]- 9976 Dec, [facility] [place] [facility] [address] [id number] [place] [address]- 5136 Dec, [facility] [place] [facility] [address] [id number] [place] [address]- 7446 Dec, [facility] [place] [facility] [address] [id number] [place] [address]- 7356 Dec, [facility] [place] [facility] [address] [id number] [place] [address]- 1426 Dec, [facility] [place] [facility] [address] [id number] [place] [address]- 0500 Dec, [facility] [place] [facility] [address] [id number] [place] [address]- 7299 Nov, [facility] [place] [facility] [address] [id number] [place] [address]- 4505 Nov, [facility] [place] [facility] [address] [id number] [place] [address]- 6166 Nov, [facility] [place] [facility] [address] [id number] [place] [address]- 1329 Nov, [facility] [place] [facility] [address] [id number] [place] [address]- 3399 Nov, [facility] [place] [facility] [address] [id number] [place] [address]- 5170 Nov, [facility] [place] [facility] [address] [id number] [place] [address]- 3130 Nov, [facility] [place] [facility] [address] [id number] [place] [address]- 5025 03 Nov, 2013 [facility] [address] [id number] [place] [address]- 0178 Nov, [facility] [address] [id number] [place] [address]- 9630 Nov, [facility] [address] [id number] [place] [address]- 1032 19 Oct, 2013 [facility] [address] [id number] [place] [address]- 5094 19 Oct, 2013 [facility] [address] [id number] [place] [address]- 0612 18 Oct, 2013 [facility] [address] [id number] [place] [address]- 0461 18 Oct, 2013 [facility] [address] [id number] [place] [address]- 9326 17 Oct, 2013 [facility] [address] [id number] [place] [address]- 3862 17 Oct, 2013 [facility] [address] [id number] [place] [address]- 7656 16 Oct, 2013 [facility] [address] [id number] [place] [address]- 6693 16 Oct, 2013 [facility] [address] [id number] [place] [address]- 1709 11 Oct, 2013 [facility] [place] [facility] [address] [id number] [place] [address]- 6351 11 Oct, 2013 [facility] [place] [facility] [address] [id number] [place] [address]- 6268 04 Oct, 2013 [facility] [place] [facility] [address] [id number] [place] [address]- 1107 04 Oct, 2013 [facility] [address] [id number] [place] [address]- 3710 04 Oct, 2013 [facility] [place] [facility] [address] [id number] [place] [address]- 9367 Oct, [facility] [place] [facility] [address] [id number] [place] [address]- 0067 Sep, [facility] [place] [facility] [address] [id number] [place] [address]- 3691 Sep, [facility] [place] [facility] [address] [id number] [place] [address]- 7484 Sep, [facility] [place] [facility] [address] [id number] [place] [address]- 5189 Sep, [facility] [place] [facility] [address] [id number] [place] [address]- 6511 Sep, [facility] [place] [facility] [address] [id number] [place] [address]- 8615 Sep, [facility] [place] [facility] [address] [id number] [place] [address]- 5090 Aug, [facility] [place] [facility] [address] [id number] [place] [address]- 5941 Aug, [facility] [place] [facility] [address] [id number] [place] [address]- 2830 Aug, [facility] [place] [facility] [address] [id number] [place] [address]- 3102 Aug, [facility] [place] [facility] [address] [id number] [place] [address]- 8374 Aug, [facility] [place] [facility] [address] [id number] [place] [address]- 4870 10 Aug, 2013 [facility] [place] [facility] [address] [id number] [place] [address]- 0638 Aug, [facility] [place] [facility] [address] [id number] [place] [address]- 3356 Aug, [facility] [place] [facility] [address] [id number] [place] [address]- 8801 02 Aug, 2013 [facility] [address] [id number] [place] [address]- 4817 25 Jul, 2012 [facility] [place] [facility] [address] [id number] [place] [address]- 0186 23 Jul, 2012 [facility] [place] [facility] [address] [id number] [place] [address] 2541 21 Jul, 2012 [facility] [place] [facility] [address] [id number] [place] [address]- 3040 20 Jul, 2012 [facility] [place] [facility] [address] [id number] [place] [address]- 2333 18 Jul, 2012 [facility] [place] [facility] [address] [id number] [place] [address]- 8279 17 Jul, 2012 [facility] [place] [facility] [address] [id number] [place] [address]- 2969 16 Jul, 2012 [facility] [place] [facility] [address] [id number] [place] [address]- 7479 11 Jul, 2012 [facility] [place] [facility] [address] [id number] [place] [address]- 9816 09 Jul, 2012 [facility] [place] [facility] [address] [id number] [place] [address]- 6255 09 Jul, 2012 [facility] [place] [facility] [address] [id number] [place] [address]- 7510 06 Jul, 2012 [facility] [place] [facility] [address] [id number] [address]- 9175 03 Jul, 2012 [facility] [place] [facility] [address] [id number] [place] [address]- 6176 Jun, [facility] [place] [facility] [address] [id number] [place] [address]- 1697 Jun, [facility] [place] [facility] [address] [id number] [place] [address]- 8178 Jun, [facility] [place] [facility] [address] [id number] [place] [address]- 8556 Jun, [facility] [address] [id number] [place] [address]- 8179 Jun, [facility] [address] [id number] [place] [address]- 3979 Jun, [facility] [address] [id number] [place] [address]- 2141 Jun, [facility] [address] [id number] [place] [address]- 0547 Jun, [facility] [address] [id number] [place] [address]- 0905 Jun, [facility] [address] [id number] [place] [address]- 7268 May, [facility] [address] [id number] [place] [address]- 3045 May, [facility] [address] [id number] [place] [address]- 4777 May, [facility] [address] [id number] [place] [address]- 7073 May, [facility] [address] [id number] [place] [address]- 5904 May, [facility] [address] [id number] [place] [address]- 8891 May, [facility] [address] [id number] [place] [address]- 254 May, [facility] [place] [facility] [address] [id number] [place] [address]- 4439 March, [facility] [address] [id number] [place] [address]- 2546 March, [facility] [address] [id number] [place] [address]- 0360 March, [facility] [place] [facility] [address] [id number] [place] [address]- 9275 Dec, [facility] [place] [facility] [address] [id number] [place] [address]- 9556 Nov, [facility] [place] [facility] [address] [id number] [place] [address]- 9591 Aug, [facility] [place] [facility] [address] [id number] [place] [address]- 7786 Aug, [facility] [place] [facility] [address] [id number] [place] [address]- 7253 Jun, [facility] [place] [facility] [address] [id number] [place] [address]- 2359 Jun, [facility] [place] [facility] [address] [id number] [place] [address]- 0701 Jun, [facility] [place] [facility] [address] [id number] [place] [address]- 5491 Jun, [facility] [place] [facility] [address] [id number] [place] [address]- 5234 May, [facility] [place] [facility] [address] [id number] [place] [address]- 1331 May, [facility] [place] [facility] [address] [id number] [place] [address]- 5526 May, [facility] [place] [facility] [address] [id number] [place] [address]- 5202 May, [facility] [place] [facility] [address] [id number] [place] [address]- 4440 May, [facility] [place] [facility] [address] [id number] [place] [address]- 7606 May, [facility] [place] [facility] [address] [id number] [place] [address]- 9146 May, [facility] [place] [facility] [address] [id number] [address]- 3879 Apr, [facility] [address] [id number] [place] [address]- 8240 Apr, [facility] [place] [facility] [address] [id number] [place] [address]- 7923 Apr, [facility] [address] [id number] [place] [address]- 9071 Apr, [facility] [place] [facility] [address] [id number] [place] [address]- 2784 March, [facility] [address] [id number] [place] [address]- 8763 March, [facility] [place] [facility] [address] [id number] [place] [address] March, [facility] [address] [id number] [place] [address] March, [facility] [address] [id number] [place] [address] March, [facility] [address] [id number] [place] [address] March, [facility] [place] [facility] [address] [id number] [place] [address] March, [facility] [address] [id number] [place] [address] March, [facility] [place] [facility] [address] [id number] [place] [address] March, [facility] [place] [facility] [address] [id number] [place] [address] Feb, [facility] [place] [facility] [address] [id number] [place] [address] Feb, [facility] [place] [facility] [address] [id number] [place] [address] Jan, [facility] [place] [facility] [address] [id number] [place] [address] 27 Jan, 2012 [facility] [place] [facility] [address] [id number] [place] [address] 16 Jan, 2012 [facility] [place] [facility] [address] [id number] [place] [address] 05 Jan, 2012 [facility] [place] [facility] [address] [id number] [place] [address] 20 Dec, 2011 [facility] [place] [facility] [address] [id number] [place] [address] 16 Dec, 2011 [facility] [place] [facility] [address] [id number] [place] [address] 15 Dec, 2011 [facility] [place] [facility] [address] [id number] [place] [address] 30 Nov, 2011 [facility] [place] [facility] [address] [id number] [place] [address] Oct, [facility] [place] [facility] [address] [id number] [place] [address] 15 Oct, 2011 [facility] [place] [facility] [address] [id number] [place] [address] 15 Oct, 2011 [facility] [place] [facility] [address] [id number] [place] [address] 14 Oct, 2011 [facility] [place] [facility] [address] [id number] [place] [address] 14 Oct, 2011 [facility] [place] [facility] [address] [id number] [place] [address] 12 Oct, 2011 [facility] [place] [facility] [address] [id number] [place] [address] 09 Oct, 2011 [facility] [place] [facility] [address] [id number] [place] [address] Oct, [facility] [place] [facility] [address] [id number] [address] Sep, [facility] [id number] [address] Sep, [facility] [id number] [address] 2011 Sep, [facility] [id number] Sep, [facility] [address] [facility] [id number] [address] Sep, [facility] [id number] [address] Sep, [facility] [id number] [place] [address]40[address] Sep, [facility] [id number] [place] [address] Sep, [facility] [id number] [place] [address]- [address] Sep, [facility] [id number] [address] Aug, [facility] [id number] [address] Jul, [facility] [id number] [address] [address] Oct, [facility] [id number] [address] Oct, [facility] [id number] [address] Oct, IMMUNIZATIONS No Known Immunizations SOCIAL HISTORY Never Assessed REASON FOR VISIT Controlled Med Refill 12/19/17 PLAN OF CARE VITAL SIGNS MEDICATIONS Medication [...]
[2018-06-06 09:23] VITALS: BP 180/69
[2018-06-06] MEDS: PHENYLEPHRINE 10% OPHTH (NEO-SYN) 5 ML BTL OU SCH ×3 (09:23→09:31)
[2018-06-06] MEDS: CYCLOPENTOLATE 1% (CYCLOGYL) 2 ML DROPS OP SCH ×3 (09:23→09:31)
--- OUTSIDE RECORDS SUMMARY | 2018-06-06 09:29 | XMS REPORT | Continuity of Care Document ---
Author Author [facility] Address Unknown Phone Unavailable Allergies Active [...] mg Tablet Drug Allergy 02/27/2012 Yes lisinopril [id number] Drug Allergy Severe ANAPHYLAXIS 03/18/2012 Yes Uosbong-Hxg-Roe Reductase Inhibitor [id number] Drug Allergy Severe ANAPHYLAXIS 03/18/2012 Yes gabapentin Drug Allergy N/A N/A 11/09/2013 Yes Cozaar,Niacin, Simvastatin Cozaar,Niacin, Simvastatin Unknown N/A 03/10/2015 Yes gabapentin [id number] Drug Allergy Unknown N/A 04/23/2018 Yes losartan [id number] Drug Allergy Unknown N/A 04/23/2018 Yes niacin [id number] Drug Allergy Unknown N/A 04/23/2018 Medications There is no data. 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 10/24/1011 PATRICK CASTILLO, MANISHAYING Ot Z87.891 PERSONAL HISTORY OF NICOTINE DEPENDENCE 11/04/2009 MARTIN CARABALLO APRNNDA S 250.01 Diabetes Mellitus Type I 11/04/2009 [...] S 250.01 Diabetes Mellitus Type I 11/04/2009 CHEN MCCOY APRN A 250.01 Diabetes Mellitus Type I 11/04/2009 RASHMI GRAVES ALAN S 250.01 Diabetes Mellitus Type I 11/04/2009 250.01 Diabetes Mellitus Type I 11/04/2009 RASHMI GRAVES ALAN S 250.01 Diabetes Mellitus Type I 11/04/2009 RASHMI MUD MILL TENDER, ALAN S 250.01 Diabetes Mellitus Type I 11/04/2009 RASHMI MUD MILL TENDER, ALAN S 250.01 Diabetes Mellitus Type I 11/04/2009 RASHMI MUD MILL TENDER, ALAN S 250.01 Diabetes Mellitus Type I 12/14/2009 RASHMI MUD MILL TENDER, ALAN S 250.03 DIABETES MELLITUS TYPE 1 - UNCONTROLLED 12/14/2009 250.03 DIABETES MELLITUS TYPE 1 - UNCONTROLLED 12/14/2009 250.03 DIABETES MELLITUS TYPE 1 - UNCONTROLLED 12/14/2009 250.03 DIABETES MELLITUS TYPE 1 - UNCONTROLLED 12/14/2009 250.03 DIABETES MELLITUS TYPE 1 - UNCONTROLLED 12/14/2009 250.03 DIABETES MELLITUS TYPE 1 - UNCONTROLLED 12/14/2009 PIERSON DO LORENA K 250.03 DIABETES MELLITUS TYPE 1 - UNCONTROLLED 12/14/2009 PIERSON DO, LORENA K 250.03 DIABETES MELLITUS TYPE 1 - UNCONTROLLED 12/14/2009 PIERSON DO, LORENA K 250.03 DIABETES MELLITUS TYPE 1 - UNCONTROLLED 12/14/2009 PIERSON DO, LORENA K 250.03 DIABETES MELLITUS TYPE 1 - UNCONTROLLED 12/14/2009 RASHMI HARVEYN, ALAN S 250.03 DIABETES MELLITUS TYPE 1 - UNCONTROLLED 12/14/2009 PIERSON DO, LORENA K 250.03 DIABETES MELLITUS TYPE 1 - UNCONTROLLED 12/14/2009 RASHMI HARVEYN, ALAN S 250.03 DIABETES MELLITUS TYPE 1 - UNCONTROLLED 12/14/2009 RASHMI MUD MILL TENDER, ALAN S 250.03 DIABETES MELLITUS TYPE 1 - UNCONTROLLED 12/14/2009 RASHMI HARVEYN, ALAN S 250.03 DIABETES MELLITUS TYPE 1 - UNCONTROLLED 12/14/2009 RASHMI HARVEYN, ALAN S 250.03 DIABETES MELLITUS TYPE 1 - UNCONTROLLED 12/14/2009 PIERSON DO LORENA K 250.03 DIABETES MELLITUS TYPE 1 - UNCONTROLLED 12/14/2009 PIERSON DO, LORENA K 250.03 DIABETES MELLITUS TYPE 1 - UNCONTROLLED 12/14/2009 RASHMI HARVEYN, ALAN S 250.03 DIABETES MELLITUS TYPE 1 - UNCONTROLLED 12/14/2009 RASHMI MUD MILL TENDER, ALAN S 250.03 DIABETES MELLITUS TYPE 1 - UNCONTROLLED 12/14/2009 CHEN MCCOY APRN 250.03 DIABETES MELLITUS TYPE 1 - UNCONTROLLED 12/14/2009 RASHMI HARVEYN, ALAN S 250.03 DIABETES MELLITUS TYPE 1 - UNCONTROLLED 12/14/2009 250.03 DIABETES MELLITUS TYPE 1 - UNCONTROLLED 12/14/2009 ANTONIO CARABALLO APRNA S 250.03 DIABETES MELLITUS TYPE 1 - UNCONTROLLED 12/14/2009 RASHMI GRAVES, ALAN S 250.03 DIABETES MELLITUS TYPE 1 - UNCONTROLLED 12/14/2009 RASHMI GRAVES, ALAN S 250.03 DIABETES MELLITUS TYPE 1 - UNCONTROLLED 12/14/2009 RASHMI GRAVES, ALAN S 250.03 DIABETES MELLITUS TYPE 1 - UNCONTROLLED 05/29/2010 Ot 250.81 05/29/2010 Ot 780.39 05/29/2010 Ot V58.67 06/07/2010 Ot 250.81 06/07/2010 Ot 599.0 12/17/2010 Ot 250.01 12/17/2010 Ot 789.00 12/17/2010 Ot V58.67 05/25/2011 Ot 782.1 NONSPECIF SKIN ERUPT NEC 08/05/2011 Ot 372.30 CONJUNCTIVITIS NOS 08/09/2011 ANTONIO CARABALLO APRNA S 372.00 Acute [...] APRNA S 372.00 Acute Conjunctivitis Unspecified 08/09/2011 RASHMI MUD MILL TENDER, ALAN S 372.00 Acute Conjunctivitis Unspecified 08/09/2011 PIERSON DO, LORENA K 372.00 Acute Conjunctivitis Unspecified 08/09/2011 PIERSON DO, LORENA K 372.00 Acute Conjunctivitis Unspecified 08/09/2011 RASHMI MUD MILL TENDER, ALAN S 372.00 Acute Conjunctivitis Unspecified 08/09/2011 RASHMI MUD MILL TENDER, ALAN S 372.00 Acute Conjunctivitis Unspecified 08/09/2011 NADINE MUD MILL TENDER, CHEN A 372.00 Acute Conjunctivitis Unspecified 08/09/2011 RASHMI MUD MILL TENDER, ALAN S 372.00 Acute Conjunctivitis Unspecified 08/09/2011 372.00 Acute Conjunctivitis Unspecified 08/09/2011 RASHMI MUD MILL TENDER, ALAN S 372.00 Acute Conjunctivitis Unspecified 08/09/2011 RASHMI MUD MILL TENDER, ALAN S 372.00 Acute Conjunctivitis Unspecified 08/09/2011 RASHMI MUD MILL TENDER, ALAN S 372.00 Acute Conjunctivitis Unspecified 08/09/2011 RASHMI MUD MILL TENDER, ALAN S 372.00 Acute Conjunctivitis Unspecified 08/22/2011 RASHMI MUD MILL TENDER, ALAN S 272.4 HYPERLIPIDEMIA 08/22/2011 MARTIN CARABALLO APRNNDA S V58.69 taking high-risk medication 08/22/2011 272.4 HYPERLIPIDEMIA 08/22/2011 V58.69 taking high- risk medication 08/22/2011 272.4 HYPERLIPIDEMIA 08/22/2011 V58.69 taking high- risk medication 08/22/2011 272.4 HYPERLIPIDEMIA 08/22/2011 V58.69 taking high- risk medication 08/22/2011 272.4 HYPERLIPIDEMIA 08/22/2011 V58.69 taking high- risk medication 08/22/2011 272.4 HYPERLIPIDEMIA 08/22/2011 V58.69 taking high- risk medication 08/22/2011 PIERSON DO LORENA K 272.4 HYPERLIPIDEMIA 08/22/2011 PIERSON DO, LORENA K V58.69 taking high-risk medication 08/22/2011 PIERSON DO, LORENA K 272.4 HYPERLIPIDEMIA 08/22/2011 PIERSON DO LORENA K V58.69 taking high-risk medication 08/22/2011 PIERSON DO LORENA K 272.4 HYPERLIPIDEMIA 08/22/2011 PIERSON DO, LORENA K V58.69 taking high-risk medication 08/22/2011 PIERSON DO, LORENA K 272.4 HYPERLIPIDEMIA 08/22/2011 PIERSON DO, LORENA K V58.69 taking high-risk medication 08/22/2011 RASHMI MUD MILL TENDER, ALAN S 272.4 HYPERLIPIDEMIA 08/22/2011 RASHMI GRAVES ALAN S V58.69 taking high-risk medication 08/22/2011 PIERSON DO, LORENA K 272.4 HYPERLIPIDEMIA 08/22/2011 PIERSON DO, LORENA K V58.69 taking high-risk medication 08/22/2011 RASHMI MUD MILL TENDER, ALAN S 272.4 HYPERLIPIDEMIA 08/22/2011 RASHMI MUD MILL TENDER, ALAN S V58.69 taking high-risk medication 08/22/2011 [...] ALAN S V58.69 taking high-risk medication 08/22/2011 NADINEJustin GRAVES CHEN A 272.4 HYPERLIPIDEMIA 08/22/2011 NADINEJustin GRAVES CHEN A V58.69 taking high-risk medication 08/22/2011 RASHMI MUD MILL TENDER, ALAN S 272.4 HYPERLIPIDEMIA 08/22/2011 RASHMI MUD MILL TENDER, ALAN S V58.69 taking high-risk medication 08/22/2011 272.4 HYPERLIPIDEMIA 08/22/2011 V58.69 taking high- risk medication 08/22/2011 RASHMI MUD MILL TENDER, ALAN S 272.4 HYPERLIPIDEMIA 08/22/2011 RASHMI MUD MILL TENDER, ALAN S V58.69 taking high-risk medication 08/22/2011 RASHMI MUD MILL TENDER, ALAN S 272.4 HYPERLIPIDEMIA 08/22/2011 RASHMI MUD MILL TENDER, ALAN S V58.69 taking high-risk medication 08/22/2011 RASHMI MUD MILL TENDER, ALAN S 272.4 HYPERLIPIDEMIA 08/22/2011 RASHMI MUD MILL TENDER, ALAN S V58.69 taking high-risk medication 08/22/2011 RASHMI MUD MILL TENDER, ALAN S 272.4 HYPERLIPIDEMIA 08/22/2011 RASHMI MUD MILL TENDER, ALAN S V58.69 taking high-risk medication 11/02/2011 RASHMI MUD MILL TENDER, ALAN S 250.80 Hypoglycemia (diabetic) 11/02/2011 250.80 Hypoglycemia (diabetic) 11/02/2011 250.80 Hypoglycemia (diabetic) 11/02/2011 250.80 Hypoglycemia (diabetic) 11/02/2011 250.80 Hypoglycemia (diabetic) 11/02/2011 250.80 Hypoglycemia (diabetic) 11/02/2011 PIERSON DO, LORENA K 250.80 Hypoglycemia (diabetic) 11/02/2011 PIERSON DO, LORENA K 250.80 Hypoglycemia (diabetic) 11/02/2011 PIERSON DO, LORENA K 250.80 Hypoglycemia (diabetic) 11/02/2011 PIERSON DO, LORENA K 250.80 Hypoglycemia (diabetic) 11/02/2011 RASHMI MUD MILL TENDER, ALAN S 250.80 Hypoglycemia (diabetic) 11/02/2011 PIERSON DO, LORENA K 250.80 Hypoglycemia (diabetic) 11/02/2011 RASHMI MUD MILL TENDER, ALAN S 250.80 Hypoglycemia (diabetic) 11/02/2011 RASHMI MUD MILL TENDER, ALAN S 250.80 Hypoglycemia (diabetic) 11/02/2011 RASHMI HARVEYN, ALAN S 250.80 Hypoglycemia (diabetic) 11/02/2011 RASHMI MUD MILL TENDER, ALAN S 250.80 Hypoglycemia (diabetic) 11/02/2011 PIERSON DO, LORENA K 250.80 Hypoglycemia (diabetic) 11/02/2011 PIERSON DO, LORENA K 250.80 Hypoglycemia (diabetic) 11/02/2011 RASHMI MUD MILL TENDER, ALAN S 250.80 Hypoglycemia (diabetic) 11/02/2011 RASHMI MUD MILL TENDER, ALAN S 250.80 Hypoglycemia (diabetic) 11/02/2011 NADINE MUD MILL TENDER, CHEN A 250.80 Hypoglycemia (diabetic) 11/02/2011 RASHMI MUD MILL TENDER, ALAN S 250.80 Hypoglycemia (diabetic) 11/02/2011 250.80 Hypoglycemia (diabetic) 11/02/2011 RASHMI MUD MILL TENDER, ALAN S 250.80 Hypoglycemia (diabetic) 11/02/2011 RASHMI MUD MILL TENDER, ALAN S 250.80 Hypoglycemia (diabetic) 11/02/2011 RASHMI MUD MILL TENDER, ALAN S 250.80 Hypoglycemia (diabetic) 11/02/2011 RASHMI MUD MILL TENDER, ALAN S 250.80 Hypoglycemia (diabetic) 11/07/2011 RASHMI MUD MILL TENDER, ALAN S 791.0 MICROALBUMINURIA 11/07/2011 791.0 MICROALBUMINURIA 11/07/2011 791.0 MICROALBUMINURIA 11/07/2011 791.0 MICROALBUMINURIA 11/07/2011 791.0 MICROALBUMINURIA 11/07/2011 791.0 MICROALBUMINURIA 11/07/2011 PIERSON DO, LORENA K 791.0 MICROALBUMINURIA 11/07/2011 PIERSON DO, LORENA K 791.0 MICROALBUMINURIA 11/07/2011 PIERSON DO, LORENA K 791.0 MICROALBUMINURIA 11/07/2011 PIERSON DO, LORENA K 791.0 MICROALBUMINURIA 11/07/2011 RASHMI MUD MILL TENDER, ALAN S 791.0 MICROALBUMINURIA 11/07/2011 PIERSON DO, LORENA K 791.0 MICROALBUMINURIA 11/07/2011 RASHMI MUD MILL TENDER, ALAN S 791.0 MICROALBUMINURIA 11/07/2011 RASHMI MUD MILL TENDER, ALAN S 791.0 MICROALBUMINURIA 11/07/2011 RASHMI MUD MILL TENDER, ALAN S 791.0 MICROALBUMINURIA 11/07/2011 RASHMI MUD MILL TENDER, ALAN S 791.0 MICROALBUMINURIA 11/07/2011 PIERSON DO, LORENA K 791.0 MICROALBUMINURIA 11/07/2011 PIERSON DO, LORENA K 791.0 MICROALBUMINURIA 11/07/2011 RASHMI MUD MILL TENDER, ALAN S 791.0 MICROALBUMINURIA 11/07/2011 RASHMI MUD MILL TENDER, ALAN S 791.0 MICROALBUMINURIA 11/07/2011 NADINE MUD MILL TENDER, CHEN A 791.0 MICROALBUMINURIA 11/07/2011 RASHMI MUD MILL TENDER, ALAN S 791.0 MICROALBUMINURIA 11/07/2011 791.0 MICROALBUMINURIA 11/07/2011 RASHMI MUD MILL TENDER, ALAN S 791.0 MICROALBUMINURIA 11/07/2011 RASHMI MUD MILL TENDER, ALAN S 791.0 MICROALBUMINURIA 11/07/2011 RASHMI MUD MILL TENDER, ALAN S 791.0 MICROALBUMINURIA 11/07/2011 RASHMI MUD MILL TENDER, ALAN S 791.0 MICROALBUMINURIA 12/24/2011 RASHMI MUD MILL TENDER, ALAN S 564.1 IRRITABLE BOWEL SYNDROME 12/24/2011 RASHMI MUD MILL TENDER, ALAN S 789.00 Abdominal Pain Unspecified Site [...] 789.00 Abdominal Pain Unspecified Site 12/24/2011 RASHMI MUD MILL TENDER, ALAN S 564.1 IRRITABLE BOWEL SYNDROME 12/24/2011 RASHMI MUD MILL TENDER, ALAN S 789.00 Abdominal Pain Unspecified Site 12/24/2011 PIERSON DO, LORENA K 564.1 IRRITABLE BOWEL SYNDROME 12/24/2011 PIERSON DO, LORENA K 789.00 Abdominal Pain Unspecified Site 12/24/2011 RASHMI MUD MILL TENDER, ALAN S 564.1 IRRITABLE BOWEL SYNDROME 12/24/2011 RASHMI MUD MILL TENDER, ALAN S 789.00 Abdominal Pain Unspecified Site 12/24/2011 RASHMI MUD MILL TENDER, ALAN S 564.1 IRRITABLE BOWEL SYNDROME 12/24/2011 RASHMI MUD MILL TENDER, ALAN S 789.00 Abdominal Pain Unspecified Site 12/24/2011 RASHMI MUD MILL TENDER, ALAN S 564.1 IRRITABLE BOWEL SYNDROME 12/24/2011 RASHMI MUD MILL TENDER, ALAN S 789.00 Abdominal Pain Unspecified Site 12/24/2011 RASHMI MUD MILL TENDER, ALAN S 564.1 IRRITABLE BOWEL SYNDROME 12/24/2011 RASHMI MUD MILL TENDER, ALAN S 789.00 Abdominal Pain Unspecified Site 12/24/2011 PIERSON DO, LORENA K 564.1 IRRITABLE BOWEL SYNDROME 12/24/2011 PIERSON DO, LORENA K 789.00 Abdominal Pain Unspecified Site 12/24/2011 PIERSON DO, LORENA K 564.1 IRRITABLE BOWEL SYNDROME 12/24/2011 PIERSON DO, LORENA K 789.00 Abdominal Pain Unspecified Site 12/24/2011 RASHMI MUD MILL TENDER, ALAN S 564.1 IRRITABLE BOWEL SYNDROME 12/24/2011 RASHMI MUD MILL TENDER, ALAN S 789.00 Abdominal Pain Unspecified Site 12/24/2011 RASHMI MUD MILL TENDER, ALAN S 564.1 IRRITABLE BOWEL SYNDROME 12/24/2011 RASHMI MUD MILL TENDER, ALAN S 789.00 Abdominal Pain Unspecified Site 12/24/2011 NADINE MUD MILL TENDER, CHEN A 564.1 IRRITABLE BOWEL SYNDROME 12/24/2011 NADINE MUD MILL TENDER, CHEN A 789.00 Abdominal Pain Unspecified Site 12/24/2011 RASHMI MUD MILL TENDER, ALAN S 564.1 IRRITABLE BOWEL SYNDROME 12/24/2011 RASHMI MUD MILL TENDER, ALAN S 789.00 Abdominal Pain Unspecified Site 12/24/2011 564.1 IRRITABLE BOWEL SYNDROME 12/24/2011 789.00 Abdominal Pain Unspecified Site 12/24/2011 RASHMI MUD MILL TENDER, ALAN S 564.1 IRRITABLE BOWEL SYNDROME 12/24/2011 RASHMI MUD MILL TENDER, ALAN S 789.00 Abdominal Pain Unspecified Site 12/24/2011 RASHMI MUD MILL TENDER, ALAN S 564.1 IRRITABLE BOWEL SYNDROME 12/24/2011 RASHMI MUD MILL TENDER, ALAN S 789.00 Abdominal Pain Unspecified Site 12/24/2011 RASHMI MUD MILL TENDER, ALAN S 564.1 IRRITABLE BOWEL SYNDROME 12/24/2011 RASHMI MUD MILL TENDER, ALAN S 789.00 Abdominal Pain Unspecified Site 12/24/2011 RASHMI MUD MILL TENDER, ALAN S 564.1 IRRITABLE BOWEL SYNDROME 12/24/2011 RASHMI MUD MILL TENDER, ALAN S 789.00 Abdominal Pain Unspecified Site 01/28/2012 RASHMI MUD MILL TENDER, ALAN S 465.9 Upper Respiratory Infection 01/28/2012 465.9 Upper Respiratory Infection 01/28/2012 465.9 Upper Respiratory Infection 01/28/2012 465.9 Upper Respiratory Infection 01/28/2012 465.9 Upper Respiratory Infection 01/28/2012 465.9 Upper Respiratory Infection 01/28/2012 PIERSON DOJOSÉA K 465.9 Upper Respiratory Infection 01/28/2012 PIERSON DOLORENA K 465.9 Upper Respiratory Infection 01/28/2012 DANGELO DOLORENA K 465.9 Upper Respiratory Infection 01/28/2012 PIERSON DOJOSÉA K 465.9 Upper Respiratory Infection 01/28/2012 RASHMI GRAVES, ALAN S 465.9 Upper Respiratory Infection 01/28/2012 PIERSON DOLORENA K 465.9 Upper Respiratory Infection 01/28/2012 RASHMI MUD MILL TENDER, ALAN S 465.9 Upper Respiratory Infection 01/28/2012 RASHMI MUD MILL TENDER, ALAN S 465.9 Upper Respiratory Infection 01/28/2012 RASHMI MUD MILL TENDER, ALAN S 465.9 Upper Respiratory Infection 01/28/2012 RASHMI MUD MILL TENDER, ALAN S 465.9 Upper Respiratory Infection 01/28/2012 PIERSON DO, LORENA K 465.9 Upper Respiratory Infection 01/28/2012 PIERSON DO, LORENA K 465.9 Upper Respiratory Infection 01/28/2012 RASHMI MUD MILL TENDER, ALAN S 465.9 Upper Respiratory Infection 01/28/2012 RASHMI MUD MILL TENDER, ALAN S 465.9 Upper Respiratory Infection 01/28/2012 NADINE MUD MILL TENDER, CHEN A 465.9 Upper Respiratory Infection 01/28/2012 RASHMI MUD MILL TENDER, ALAN S 465.9 Upper Respiratory Infection 01/28/2012 465.9 Upper Respiratory Infection 01/28/2012 RASHMI MUD MILL TENDER, ALAN S 465.9 Upper Respiratory Infection 01/28/2012 RASHMI MUD MILL TENDER, ALAN S 465.9 Upper Respiratory Infection 01/28/2012 RASHMI MUD MILL TENDER, ALAN S 465.9 Upper Respiratory Infection 01/28/2012 RASHMI MUD MILL TENDER, ALAN S 465.9 Upper Respiratory Infection 04/02/2012 RASHMI MUD MILL TENDER, ALAN S 780.99 ANHEDONIA 04/02/2012 780.99 ANHEDONIA 04/02/2012 780.99 ANHEDONIA 04/02/2012 780.99 ANHEDONIA 04/02/2012 780.99 ANHEDONIA 04/02/2012 780.99 ANHEDONIA 04/02/2012 PIERSON DO, LORENA K 780.99 ANHEDONIA 04/02/2012 PIERSON DO, LORENA K 780.99 ANHEDONIA 04/02/2012 PIERSON DO, LORENA K 780.99 ANHEDONIA 04/02/2012 PIERSON DO, LORENA K 780.99 ANHEDONIA 04/02/2012 RASHMI MUD MILL TENDER, ALAN S 780.99 ANHEDONIA 04/02/2012 PIERSON DO, LORENA K 780.99 ANHEDONIA 04/02/2012 RASHMI MUD MILL TENDER, ALAN S 780.99 ANHEDONIA 04/02/2012 RASHMI MUD MILL TENDER, ALAN S 780.99 ANHEDONIA 04/02/2012 RASHMI MUD MILL TENDER, ALAN S 780.99 ANHEDONIA 04/02/2012 RASHMI MUD MILL TENDER, ALAN S 780.99 ANHEDONIA 04/02/2012 PIERSON DO, LORENA K 780.99 ANHEDONIA 04/02/2012 PIERSON DO, LORENA K 780.99 ANHEDONIA 04/02/2012 RASHMI MUD MILL TENDER, ALAN S 780.99 ANHEDONIA 04/02/2012 RASHMI MUD MILL TENDER, ALAN S 780.99 ANHEDONIA 04/02/2012 NADINE MUD MILL TENDER, CHEN A 780.99 ANHEDONIA 04/02/2012 RASHMI MUD MILL TENDER, ALAN S 780.99 ANHEDONIA 04/02/2012 780.99 ANHEDONIA 04/02/2012 RASHMI MUD MILL TENDER, ALAN S 780.99 ANHEDONIA 04/02/2012 RASHMI MUD MILL TENDER, ALAN S 780.99 ANHEDONIA 04/02/2012 RASHMI MUD MILL TENDER, ALAN S 780.99 ANHEDONIA 04/02/2012 RASHMI MUD MILL TENDER, ALAN S 780.99 ANHEDONIA 05/26/2012 RASHMI MUD MILL TENDER, ALAN S 458.9 HYPOTENSION 05/26/2012 458.9 HYPOTENSION 05/26/2012 458.9 HYPOTENSION 05/26/2012 458.9 HYPOTENSION 05/26/2012 458.9 HYPOTENSION 05/26/2012 458.9 HYPOTENSION 05/26/2012 PIERSON DO, LORENA K 458.9 HYPOTENSION 05/26/2012 PIERSON DO, LORENA K 458.9 HYPOTENSION 05/26/2012 PIERSON DO, LORENA K 458.9 HYPOTENSION 05/26/2012 PIERSON DO, LORENA K 458.9 HYPOTENSION 05/26/2012 RASHMI MUD MILL TENDER, ALAN S 458.9 HYPOTENSION 05/26/2012 PIERSON DO, LORENA K 458.9 HYPOTENSION 05/26/2012 RASHMI MUD MILL TENDER, ALAN S 458.9 HYPOTENSION 05/26/2012 RASHMI MUD MILL TENDER, ALAN S 458.9 HYPOTENSION 05/26/2012 RASHMI MUD MILL TENDER, ALAN S 458.9 HYPOTENSION 05/26/2012 RASHMI MUD MILL TENDER, ALAN S 458.9 HYPOTENSION 05/26/2012 PIERSON DO, LORENA K 458.9 HYPOTENSION 05/26/2012 PIERSON DO, LORENA K 458.9 HYPOTENSION 05/26/2012 RASHMI MUD MILL TENDER, ALAN S 458.9 HYPOTENSION 05/26/2012 RASHMI MUD MILL TENDER, ALAN S 458.9 HYPOTENSION 05/26/2012 NADINE HARVEYJustin CHEN A 458.9 HYPOTENSION 05/26/2012 RASHMI MUD MILL TENDER, ALAN S 458.9 HYPOTENSION 05/26/2012 458.9 HYPOTENSION 05/26/2012 RASHMI MUD MILL TENDER, ALAN S 458.9 HYPOTENSION 05/26/2012 RASHMI MUD MILL TENDER, ALAN S 458.9 HYPOTENSION 05/26/2012 RASHMI MUD MILL TENDER, ALAN S 458.9 HYPOTENSION 05/26/2012 RASHMI MUD MILL TENDER, ALAN S 458.9 HYPOTENSION 05/30/2012 Ot 250.01 DIAB JIMY WO COMPL, TYPE I [JUVENILE TYP 05/30/2012 Ot 272.4 HYPERLIPIDEMIA NEC/NOS 05/30/2012 Ot 276.51 DEHYDRATION 05/30/2012 Ot 300.00 ANXIETY STATE NOS 05/30/2012 Ot 311 DEPRESSIVE DISORDER NEC 05/30/2012 Ot 564.1 IRRITABLE BOWEL SYNDROME 06/10/2012 MARTIN CARABALLO APRNNDA S 380.10 Infective Otitis Externa Unspecified 06/10/2012 MARTIN CARABALLO APRNNDA S 784.7 Epistaxis 06/10/2012 380.10 Infective Otitis Externa Unspecified 06/10/2012 784.7 Epistaxis 06/10/2012 380.10 Infective Otitis Externa Unspecified 06/10/2012 784.7 Epistaxis 06/10/2012 380.10 Infective Otitis Externa Unspecified 06/10/2012 784.7 Epistaxis 06/10/2012 380.10 Infective Otitis Externa Unspecified 06/10/2012 784.7 Epistaxis 06/10/2012 380.10 Infective Otitis Externa Unspecified 06/10/2012 784.7 Epistaxis 06/10/2012 DANGELO YOUSSEF LORENA K 380.10 Infective Otitis Externa Unspecified 06/10/2012 PIERSON DO LORENA K 784.7 Epistaxis 06/10/2012 PIERSON DO LORENA K 380.10 Infective Otitis Externa Unspecified 06/10/2012 PIERSON DO LORENA K 784.7 Epistaxis 06/10/2012 PIERSON DO LORENA K 380.10 Infective Otitis Externa Unspecified 06/10/2012 PIERSON DO, LORENA K 784.7 Epistaxis 06/10/2012 PIERSON DO, LORENA K 380.10 Infective Otitis Externa Unspecified 06/10/2012 PIERSON DO, LORENA K 784.7 Epistaxis 06/10/2012 RASHMI MUD MILL TENDER, ALAN S 380.10 Infective Otitis Externa Unspecified 06/10/2012 RASHMI MUD MILL TENDER, ALAN S 784.7 Epistaxis 06/10/2012 PIERSON DO, LORENA K 380.10 Infective Otitis Externa Unspecified 06/10/2012 PIERSON DO, LORENA K 784.7 Epistaxis 06/10/2012 RASHMI MUD MILL TENDER, ALAN S 380.10 Infective Otitis Externa Unspecified 06/10/2012 RASHMI MUD MILL TENDER, ALAN S 784.7 Epistaxis 06/10/2012 RASHMI MUD MILL TENDER, ALAN S 380.10 Infective Otitis Externa Unspecified 06/10/2012 RASHMI MUD MILL TENDER, ALAN S 784.7 Epistaxis 06/10/2012 RASHMI MUD MILL TENDER, ALAN S 380.10 Infective Otitis Externa Unspecified 06/10/2012 RASHMI MUD MILL TENDER, ALAN S 784.7 Epistaxis 06/10/2012 RASHMI MUD MILL TENDER, ALAN S 380.10 Infective Otitis Externa Unspecified 06/10/2012 RASHMI MUD MILL TENDER, ALAN S 784.7 Epistaxis 06/10/2012 PIERSON DO, LORENA K 380.10 Infective Otitis Externa Unspecified 06/10/2012 PIERSON DO, LORENA K 784.7 Epistaxis 06/10/2012 PIERSON DO, LORENA K 380.10 Infective Otitis Externa Unspecified 06/10/2012 PIERSON DO, LORENA K 784.7 Epistaxis 06/10/2012 RSAHMI MUD MILL TENDER, ALAN S 380.10 Infective Otitis Externa Unspecified 06/10/2012 RASHMI MUD MILL TENDER, ALAN S 784.7 Epistaxis 06/10/2012 RASHMI MUD MILL TENDER, ALAN S 380.10 Infective Otitis Externa Unspecified 06/10/2012 RASHMI MUD MILL TENDER, ALAN S 784.7 Epistaxis 06/10/2012 NADINE MUD MILL TENDER, CHEN A 380.10 Infective Otitis Externa Unspecified 06/10/2012 NADINE MUD MILL TENDER, CHEN A 784.7 Epistaxis 06/10/2012 RASHMI MUD MILL TENDER, ALAN S 380.10 Infective Otitis Externa Unspecified 06/10/2012 RASHMI MUD MILL TENDER, ALAN S 784.7 Epistaxis 06/10/2012 380.10 Infective Otitis Externa Unspecified 06/10/2012 784.7 Epistaxis 06/10/2012 RASHMI MUD MILL TENDER, ALAN S 380.10 Infective Otitis Externa Unspecified 06/10/2012 RASHMI MUD MILL TENDER, ALAN S 784.7 Epistaxis 06/10/2012 RASHMI MUD MILL TENDER, ALAN S 380.10 Infective Otitis Externa Unspecified 06/10/2012 RASHMI MUD MILL TENDER, ALAN S 784.7 Epistaxis 06/10/2012 RASHMI MUD MILL TENDER, ALAN S 380.10 Infective Otitis Externa Unspecified 06/10/2012 RASHMI MUD MILL TENDER, ALAN S 784.7 Epistaxis 06/10/2012 RASHMI MUD MILL TENDER, ALAN S 380.10 Infective Otitis Externa Unspecified 06/10/2012 RASMHI MUD MILL TENDER, ALAN S 784.7 Epistaxis 06/23/2012 RASHMI MUD MILL TENDER, ALAN S 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 06/23/2012 RASHMI MUD MILL TENDER, ALAN S 458.0 Orthostatic Hypotension 06/23/2012 250.61 [...] AUTONOMIC NEUROPATHY 06/23/2012 458.0 Orthostatic Hypotension 06/23/2012 LORENA PIERSON DO 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 06/23/2012 LORENA PIERSON DO 458.0 Orthostatic Hypotension 06/23/2012 PIERSON DO, LORENA [...] LORENA K 458.0 Orthostatic Hypotension 06/23/2012 RASHMI MUD MILL TENDER, ALAN S 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 06/23/2012 RASHMI MUD MILL TENDER, ALAN S 458.0 Orthostatic Hypotension 06/23/2012 PIERSON DO, LORENA K 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 06/23/2012 PIERSON DO, LORENA K 458.0 Orthostatic Hypotension 06/23/2012 RASHMI MUD MILL TENDER, ALAN S 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 06/23/2012 RASHMI MUD MILL TENDER, ALAN S 458.0 Orthostatic Hypotension 06/23/2012 RASHMI MUD MILL TENDER, ALAN S 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 06/23/2012 RASHMI MUD MILL TENDER, ALAN S 458.0 Orthostatic Hypotension 06/23/2012 RASHMI MUD MILL TENDER, ALAN S 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 06/23/2012 RASHMI MUD MILL TENDER, ALAN S 458.0 Orthostatic Hypotension 06/23/2012 RASHMI MUD MILL TENDER, ALAN S 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 06/23/2012 RASHMI MUD MILL TENDER, ALAN S 458.0 Orthostatic Hypotension 06/23/2012 PIERSON DO, LORENA K 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 06/23/2012 PIERSON DO, LORENA K 458.0 Orthostatic Hypotension 06/23/2012 PIERSON DO, LORENA K 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 06/23/2012 PIERSON DO, LORENA K 458.0 Orthostatic Hypotension 06/23/2012 RASHMI MUD MILL TENDER, ALAN S 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 06/23/2012 RASHMI MUD MILL TENDER, ALAN S 458.0 Orthostatic Hypotension 06/23/2012 RASHMI MUD MILL TENDER, ALAN S 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 06/23/2012 RASHMI MUD MILL TENDER, ALAN S 458.0 Orthostatic Hypotension 06/23/2012 NADINE MUD MILL TENDER, CHEN A 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 06/23/2012 NADINE MUD MILL TENDER, CHEN A 458.0 Orthostatic Hypotension 06/23/2012 RASHMI MUD MILL TENDER, ALAN S 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 06/23/2012 RASHMI MUD MILL TENDER, ALAN S 458.0 Orthostatic Hypotension 06/23/2012 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 06/23/2012 458.0 Orthostatic Hypotension 06/23/2012 RASHMI MUD MILL TENDER, ALAN S 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 06/23/2012 RASHMI MUD MILL TENDER, ALAN S 458.0 Orthostatic Hypotension 06/23/2012 RASHMI MUD MILL TENDER, ALAN S 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 06/23/2012 RASHMI MUD MILL TENDER, ALAN S 458.0 Orthostatic Hypotension 06/23/2012 RASHMI MUD MILL TENDER, ALAN S 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 06/23/2012 RASHMI MUD MILL TENDER, ALAN S 458.0 Orthostatic Hypotension 06/23/2012 RASHMI MUD MILL TENDER, ALAN S 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 06/23/2012 RASHMI MUD MILL TENDER, ALAN S 458.0 Orthostatic Hypotension 10/06/2012 Ot 372.30 CONJUNCTIVITIS NOS 10/06/2012 Ot 379.93 REDNESS/ DISCHARGE OF EYE 05/28/2013 JOANNE ALLEN MD Ot 250.80 DIAB W OTH SPEC MANIFEST, TYPE II OR UNS 05/28/2013 JOANNE ALLEN MD Ot V58.67 LONG-TERM (CURRENT) USE OF INSULIN 06/24/2013 729.5 PAIN IN LIMB 06/24/2013 780.64 CHILLS ( WITHOUT FEVER) 06/24/2013 729.5 PAIN IN LIMB 06/24/2013 780.64 CHILLS ( WITHOUT FEVER) 06/24/2013 729.5 PAIN IN LIMB 06/24/2013 780.64 CHILLS ( WITHOUT FEVER) 06/24/2013 PIERSON DO, LORENA K 729.5 [...] K 780.64 CHILLS (WITHOUT FEVER) 06/24/2013 RASHMI MUD MILL TENDER, ALAN S 729.5 PAIN IN LIMB 06/24/2013 RASHMI MUD MILL TENDER, ALAN S 780.64 CHILLS (WITHOUT FEVER) 06/24/2013 PIERSON DO, LORENA K 729.5 PAIN IN LIMB 06/24/2013 PIERSON DO, LORENA K 780.64 CHILLS (WITHOUT FEVER) 06/24/2013 RASHMI MUD MILL TENDER, ALAN S 729.5 PAIN IN LIMB 06/24/2013 RASHMI MUD MILL TENDER, ALAN S 780.64 CHILLS (WITHOUT FEVER) 06/24/2013 RASHMI MUD MILL TENDER, ALAN S 729.5 PAIN IN LIMB 06/24/2013 RASHMI MUD MILL TENDER, ALAN S 780.64 CHILLS (WITHOUT FEVER) 06/24/2013 RASHMI MUD MILL TENDER, ALAN S 729.5 PAIN IN LIMB 06/24/2013 RASHMI MUD MILL TENDER, ALAN S 780.64 CHILLS (WITHOUT FEVER) 06/24/2013 RASHMI MUD MILL TENDER, ALAN S 729.5 PAIN IN LIMB 06/24/2013 RASHMI MUD MILL TENDER, ALAN S 780.64 CHILLS (WITHOUT FEVER) 06/24/2013 PIERSON DO, LORENA K 729.5 PAIN IN LIMB 06/24/2013 PIERSON DO, LORENA K 780.64 CHILLS (WITHOUT FEVER) 06/24/2013 PIERSON DO, LORENA K 729.5 PAIN IN LIMB 06/24/2013 PIERSON DO, LORENA K 780.64 CHILLS (WITHOUT FEVER) 06/24/2013 RASHMI MUD MILL TENDER, ALAN S 729.5 PAIN IN LIMB 06/24/2013 RASHMI MUD MILL TENDER, ALAN S 780.64 CHILLS (WITHOUT FEVER) 06/24/2013 RASHMI MUD MILL TENDER, ALAN S 729.5 PAIN IN LIMB 06/24/2013 RASHMI MUD MILL TENDER, ALAN S 780.64 CHILLS (WITHOUT FEVER) 06/24/2013 NADINE MUD MILL TENDER, CHEN A 729.5 PAIN IN LIMB 06/24/2013 NADINE MUD MILL TENDER, HCEN A 780.64 CHILLS (WITHOUT FEVER) 06/24/2013 RASHMI MUD MILL TENDER, ALAN S 729.5 PAIN IN LIMB 06/24/2013 RASHMI MUD MILL TENDER, ALAN S 780.64 CHILLS (WITHOUT FEVER) 06/24/2013 729.5 PAIN IN LIMB 06/24/2013 780.64 CHILLS ( WITHOUT FEVER) 06/24/2013 RASHMI MUD MILL TENDER, ALAN S 729.5 PAIN IN LIMB 06/24/2013 RASHMI MUD MILL TENDER, ALAN S 780.64 CHILLS (WITHOUT FEVER) 06/24/2013 RASHMI MUD MILL TENDER, ALAN S 729.5 PAIN IN LIMB 06/24/2013 RASHMI MUD MILL TENDER, ALAN S 780.64 CHILLS (WITHOUT FEVER) 06/24/2013 RASHMI MUD MILL TENDER, ALAN S 729.5 PAIN IN LIMB 06/24/2013 RASHMI MUD MILL TENDER, ALAN S 780.64 CHILLS (WITHOUT FEVER) 06/24/2013 RASHMI MUD MILL TENDER, ALAN S 729.5 PAIN IN LIMB 06/24/2013 RASHMI MUD MILL TENDER, ALAN S 780.64 CHILLS (WITHOUT FEVER) 07/20/2013 787.02 NAUSEA ALONE 07/20/2013 787.02 NAUSEA ALONE 07/20/2013 PIERSON DO, LORENA K 787.02 NAUSEA ALONE 07/20/2013 PIERSON DO, LORENA K 787.02 NAUSEA ALONE 07/20/2013 PIERSON DO, LORENA K 787.02 NAUSEA ALONE 07/20/2013 PIERSON DO, LORENA K 787.02 NAUSEA ALONE 07/20/2013 RASHMI MUD MILL TENDER, ALAN S 787.02 NAUSEA ALONE 07/20/2013 PIERSON DO, LORENA K 787.02 NAUSEA ALONE 07/20/2013 RASHMI MUD MILL TENDER ALAN S 787.02 NAUSEA ALONE 07/20/2013 RASHMI MUD MILL TENDER, ALAN S 787.02 NAUSEA ALONE 07/20/2013 RASHMI MUD MILL TENDER, ALAN S 787.02 NAUSEA ALONE 07/20/2013 RASHMI MUD MILL TENDER, ALAN S 787.02 NAUSEA ALONE 07/20/2013 PIERSON DO, LORENA K 787.02 NAUSEA ALONE 07/20/2013 PIERSON DO, LORENA K 787.02 NAUSEA ALONE 07/20/2013 RASHMI MUD MILL TENDER, ALAN S 787.02 NAUSEA ALONE 07/20/2013 RASHMI MUD MILL TENDER, ALAN S 787.02 NAUSEA ALONE 07/20/2013 NADINE GRAVES CHEN A 787.02 NAUSEA ALONE 07/20/2013 RASHMI MUD MILL TENDER, ALAN S 787.02 NAUSEA ALONE 07/20/2013 787.02 NAUSEA ALONE 07/20/2013 RASHMI MUD MILL TENDER, ALAN S 787.02 NAUSEA ALONE 07/20/2013 RASHMI MUD MILL TENDER, ALAN S 787.02 NAUSEA ALONE 07/20/2013 RASHMI MUD MILL TENDER, ALAN S 787.02 NAUSEA ALONE 07/20/2013 RASHMI MUD MILL TENDER, ALAN S 787.02 NAUSEA ALONE 08/03/2013 788.1 DYSURIA 08/03/2013 PIERSON DO, LORENA K 788.1 DYSURIA 08/03/2013 PIERSON DO, LORENA K 788.1 DYSURIA 08/03/2013 PIERSON DO, LORENA K 788.1 DYSURIA 08/03/2013 PIERSON DO, LORENA K 788.1 DYSURIA 08/03/2013 RASHMI MUD MILL TENDER, ALAN S 788.1 DYSURIA 08/03/2013 PIERSON DO, LORENA K 788.1 DYSURIA 08/03/2013 RASHMI MUD MILL TENDER, ALAN S 788.1 DYSURIA 08/03/2013 RASHMI MUD MILL TENDER ALAN S 788.1 DYSURIA 08/03/2013 RASHMI MUD MILL TENDER, ALAN S 788.1 DYSURIA 08/03/2013 RASHMI MUD MILL TENDER, ALAN S 788.1 DYSURIA 08/03/2013 PIERSON DO, LORENA K 788.1 DYSURIA 08/03/2013 PIERSON DO, LORENA K 788.1 DYSURIA 08/03/2013 RASHMI MUD MILL TENDER, ALAN S 788.1 DYSURIA 08/03/2013 RASHMI MUD MILL TENDER, ALAN S 788.1 DYSURIA 08/03/2013 NADINE MUD MILL TENDER, CHEN A 788.1 DYSURIA 08/03/2013 RASHMI MUD MILL TENDER, ALAN S 788.1 DYSURIA 08/03/2013 788.1 DYSURIA 08/03/2013 RASHMI MUD MILL TENDER, ALAN S 788.1 DYSURIA 08/03/2013 RASHMI MUD MILL TENDER, ALAN S 788.1 DYSURIA 08/03/2013 RASHMI MUD MILL TENDER, ALAN S 788.1 DYSURIA 08/03/2013 RASHMI MUD MILL TENDER, ALAN S 788.1 DYSURIA 08/26/2013 PIERSON DO, LORENA K 780.2 SYNCOPE 08/26/2013 PIERSON DO, LORENA K 786.50 CHEST PAIN 08/26/2013 PIERSON DO, LORENA K 780.2 SYNCOPE 08/26/2013 PIERSON DO, LORENA K 786.50 CHEST PAIN 08/26/2013 PIERSON DO, LORENA K 780.2 SYNCOPE 08/26/2013 PIERSON DO, LORENA K 786.50 CHEST PAIN 08/26/2013 RASHMI MUD MILL TENDER, ALAN S 780.2 SYNCOPE 08/26/2013 RASHMI MUD MILL TENDER, ALAN S 786.50 CHEST PAIN 08/26/2013 PIERSON DO, LORENA K 780.2 SYNCOPE 08/26/2013 PIERSON DO, LORENA K 786.50 CHEST PAIN 08/26/2013 RASHMI MUD MILL TENDER, ALAN S 780.2 SYNCOPE 08/26/2013 RASHMI MUD MILL TENDER, ALAN S 786.50 CHEST PAIN 08/26/2013 RASHMI MUD MILL TENDER, ALAN S 780.2 SYNCOPE 08/26/2013 RASHMI MUD MILL TENDER, ALAN S 786.50 CHEST PAIN 08/26/2013 RASHMI MUD MILL TENDER, ALAN S 780.2 SYNCOPE 08/26/2013 RASHMI MUD MILL TENDER, ALAN S 786.50 CHEST PAIN 08/26/2013 RASHMI MUD MILL TENDER, ALAN S 780.2 SYNCOPE 08/26/2013 RASHMI MUD MILL TENDER, ALAN S 786.50 CHEST PAIN 08/26/2013 PIERSON DO, LORENA K 780.2 SYNCOPE 08/26/2013 PIERSON DO, LORENA K 786.50 CHEST PAIN 08/26/2013 PIERSON DO, LORENA K 780.2 SYNCOPE 08/26/2013 PIERSON DO, LORENA K 786.50 CHEST PAIN 08/26/2013 RASHMI MUD MILL TENDER, ALAN S 780.2 SYNCOPE 08/26/2013 RASHMI MUD MILL TENDER, ALAN S 786.50 CHEST PAIN 08/26/2013 RASHMI MUD MILL TENDER, ALAN S 780.2 SYNCOPE 08/26/2013 RASHMI MUD MILL TENDER, ALAN S 786.50 CHEST PAIN 08/26/2013 NADINE MUD MILL TENDER, CHEN A 780.2 SYNCOPE 08/26/2013 NADINE MUD MILL TENDER, CHEN A 786.50 CHEST PAIN 08/26/2013 RASHMI MUD MILL TENDER, ALAN S 780.2 SYNCOPE 08/26/2013 RASHMI MUD MILL TENDER, ALAN S 786.50 CHEST PAIN 08/26/2013 780.2 SYNCOPE 08/26/2013 786.50 CHEST PAIN 08/26/2013 RASHMI MUD MILL TENDER, ALAN S 780.2 SYNCOPE 08/26/2013 RASHMI MUD MILL TENDER, ALAN S 786.50 CHEST PAIN 08/26/2013 RASHMI MUD MILL TENDER, ALAN S 780.2 SYNCOPE 08/26/2013 RASHMI MUD MILL TENDER, ALAN S 786.50 CHEST PAIN 08/26/2013 RASHMI MUD MILL TENDER, ALAN S 780.2 SYNCOPE 08/26/2013 RASHMI MUD MILL TENDER, ALAN S 786.50 CHEST PAIN 08/26/2013 RASHMI MUD MILL TENDER, ALAN S 780.2 SYNCOPE 08/26/2013 RASHMI MUD MILL TENDER, ALAN S 786.50 CHEST PAIN 09/18/2013 FACUNDO CASTILLO FACC, MELCHOR CORTEZP CCDS Ot 250.01 DIAB JIMY WO COMPL, TYPE I [JUVENILE TYP 09/18/2013 FACUNDO CASTILLO FACC, MELCHOR ALAN CCDS Ot 305.1 TOBACCO USE DISORDER 09/18/2013 FACUNDO CASTILLO [facility], [facility] CCDS Ot 458.0 ORTHOSTATIC HYPOTENSION 09/18/2013 FACUNDO CORTEZ, [facility] CCDS Ot 786.59 CHEST PAIN NEC 09/18/2013 FACUNDO CORTEZ, [facility] CCDS Ot V45.85 INSULIN PUMP STATUS 10/28/2013 JOSÉ PIERSON DOA K 729.81 SWELLING OF LIMB 10/28/2013 RASHMI GRAVES ALAN S 729.81 SWELLING OF LIMB 10/28/2013 JOSÉ PIERSON DOA K 729.81 SWELLING OF LIMB 10/28/2013 RASHMI MUD MILL TENDER, ALAN S 729.81 SWELLING OF LIMB 10/28/2013 RASHMI GRAVES, ALAN S 729.81 SWELLING OF LIMB 10/28/2013 RASHMI GRAVES, ALAN S 729.81 SWELLING OF LIMB 10/28/2013 RASHMI GRAVES ALAN S 729.81 SWELLING OF LIMB 10/28/2013 LORENA PIERSON DO K 729.81 SWELLING OF LIMB 10/28/2013 LORENA PIERSON DO K 729.81 SWELLING OF LIMB 10/28/2013 RASHMI MUD MILL TENDER, ALAN S 729.81 SWELLING OF LIMB 10/28/2013 RASHMI MUD MILL TENDER, ALAN S 729.81 SWELLING OF LIMB 10/28/2013 NADINE GRAVES CHEN A 729.81 SWELLING OF LIMB 10/28/2013 RASHMI MUD MILL TENDER, ALAN S 729.81 SWELLING OF LIMB 10/28/2013 729.81 SWELLING OF LIMB 10/28/2013 RASHMI MUD MILL TENDER, ALAN S 729.81 SWELLING OF LIMB 10/28/2013 RASHMI MUD MILL TENDER, ALAN S 729.81 SWELLING OF LIMB 10/28/2013 RASHMI MUD MILL TENDER, ALAN S 729.81 SWELLING OF LIMB 10/28/2013 RASHMI MUD MILL TENDER, ALAN S 729.81 SWELLING OF LIMB 11/09/2013 RASHMI GRAVES, ALAN S V70.0 EXAM - ROUTINE H&P 11/09/2013 LORENA PIERSON DO K V70.0 EXAM - ROUTINE H&P 11/09/2013 RASHMI MUD MILL TENDER, ALAN S V70.0 EXAM - ROUTINE H&P 11/09/2013 RASHMI MUD MILL TENDER, ALAN S V70.0 EXAM - ROUTINE H&P 11/09/2013 RASHMI MUD MILL TENDER, ALAN S V70.0 EXAM - ROUTINE H&P 11/09/2013 RASHMI MUD MILL TENDER, ALAN S V70.0 EXAM - ROUTINE H&P 11/09/2013 PIERSON DO, LORENA K V70.0 EXAM - ROUTINE H&P 11/09/2013 PIERSON DO, LORENA K V70.0 EXAM - ROUTINE H&P 11/09/2013 RASHMI MUD MILL TENDER, ALAN S V70.0 EXAM - ROUTINE H&P 11/09/2013 RASHMI MUD MILL TENDER, ALAN S V70.0 EXAM - ROUTINE H&P 11/09/2013 NADINE MUD MILL TENDER, CHEN A V70.0 EXAM - ROUTINE H&P 11/09/2013 RASHMI MUD MILL TENDER, ALAN S V70.0 EXAM - ROUTINE H&P 11/09/2013 V70.0 EXAM - ROUTINE H&P 11/09/2013 RASHMI MUD MILL TENDER, ALAN S V70.0 EXAM - ROUTINE H&P 11/09/2013 RASHMI MUD MILL TENDER, ALAN S V70.0 EXAM - ROUTINE H&P 11/09/2013 RASHMI MUD MILL TENDER, ALAN S V70.0 EXAM - ROUTINE H&P 11/09/2013 RASHMI MUD MILL TENDER, ALAN S V70.0 EXAM - ROUTINE H&P 11/10/2013 RASHMI MUD MILL TENDER, ALAN S 593.9 RENAL INSUFFICIENCY 11/10/2013 PIERSON DO, LORENA K 593.9 RENAL INSUFFICIENCY 11/10/2013 RASHMI MUD MILL TENDER, ALAN S 593.9 RENAL INSUFFICIENCY 11/10/2013 RASHMI MUD MILL TENDER, ALAN S 593.9 RENAL INSUFFICIENCY 11/10/2013 RASHMI MUD MILL TENDER, ALAN S 593.9 RENAL INSUFFICIENCY 11/10/2013 RASHMI MUD MILL TENDER, ALAN S 593.9 RENAL INSUFFICIENCY 11/10/2013 PIERSON DO, LORENA K 593.9 RENAL INSUFFICIENCY 11/10/2013 PIERSON DO, LORENA K 593.9 RENAL INSUFFICIENCY 11/10/2013 RASHMI MUD MILL TENDER, ALAN S 593.9 RENAL INSUFFICIENCY 11/10/2013 RASHMI MUD MILL TENDER, ALAN S 593.9 RENAL INSUFFICIENCY 11/10/2013 NADINE MUD MILL TENDER, CHEN A 593.9 RENAL INSUFFICIENCY 11/10/2013 RASHMI MUD MILL TENDER, ALAN S 593.9 RENAL INSUFFICIENCY 11/10/2013 593.9 RENAL INSUFFICIENCY 11/10/2013 RASHMI MUD MILL TENDER, ALAN S 593.9 RENAL INSUFFICIENCY 11/10/2013 RASHMI MUD MILL TENDER, ALAN S 593.9 RENAL INSUFFICIENCY 11/10/2013 RASHMI MUD MILL TENDER, ALAN S 593.9 RENAL INSUFFICIENCY 11/10/2013 RASHMI MUD MILL TENDER, ALAN S 593.9 RENAL INSUFFICIENCY 03/17/2014 TIESHA MCKEON MUD MILL TENDER Ot 784.0 HEADACHE 03/23/2014 RASHMI MUD MILL TENDER, ALAN S 285.9 ANEMIA 03/23/2014 RASHMI MUD MILL TENDER, ALAN S 346.10 MIGRAINE WITHOUT AURA WITHOUT [...] WITHOUT MENTION OF STATUS MIGRAINOSUS 03/23/2014 RASHMI MUD MILL TENDER, ALAN S 285.9 ANEMIA 03/23/2014 RASHMI MUD MILL TENDER, ALAN S 346.10 MIGRAINE WITHOUT AURA WITHOUT MENTION OF INTRACTABLE MIGRAINE WITHOUT MENTION OF STATUS MIGRAINOSUS 03/23/2014 RASHMI MUD MILL TENDER, ALAN S 285.9 ANEMIA 03/23/2014 RASHMI MUD MILL TENDER, ALAN S 346.10 MIGRAINE WITHOUT AURA WITHOUT MENTION OF INTRACTABLE MIGRAINE WITHOUT MENTION OF STATUS MIGRAINOSUS 03/23/2014 NADINE MUD MILL TENDER, CHEN A 285.9 ANEMIA 03/23/2014 NADINE MUD MILL TENDER, HCEN A 346.10 MIGRAINE WITHOUT AURA WITHOUT MENTION OF INTRACTABLE MIGRAINE WITHOUT MENTION OF STATUS MIGRAINOSUS 03/23/2014 RASHMI MUD MILL TENDER, ALAN S 285.9 ANEMIA 03/23/2014 RASHMI MUD MILL TENDER, ALAN S 346.10 MIGRAINE WITHOUT AURA WITHOUT MENTION OF INTRACTABLE MIGRAINE WITHOUT MENTION OF STATUS MIGRAINOSUS 03/23/2014 285.9 ANEMIA 03/23/2014 346.10 MIGRAINE WITHOUT AURA WITHOUT MENTION OF INTRACTABLE MIGRAINE WITHOUT MENTION OF STATUS MIGRAINOSUS 03/23/2014 RASHMI MUD MILL TENDER, ALAN S 285.9 ANEMIA 03/23/2014 RASHMI MUD MILL TENDER, ALAN S 346.10 MIGRAINE WITHOUT AURA WITHOUT MENTION OF INTRACTABLE MIGRAINE WITHOUT MENTION OF STATUS MIGRAINOSUS 03/23/2014 RASHMI MUD MILL TENDER, ALAN S 285.9 ANEMIA 03/23/2014 RASHMI MUD MILL TENDER ALAN S 346.10 MIGRAINE WITHOUT AURA WITHOUT MENTION OF INTRACTABLE MIGRAINE WITHOUT MENTION OF STATUS MIGRAINOSUS 03/23/2014 RASHMI MUD MILL TENDER, ALAN S 285.9 ANEMIA 03/23/2014 RASHMI GRAVES ALAN S 346.10 MIGRAINE WITHOUT AURA WITHOUT MENTION OF INTRACTABLE MIGRAINE WITHOUT MENTION OF STATUS MIGRAINOSUS 03/23/2014 RASHMI MUD MILL TENDER, ALAN S 285.9 ANEMIA 03/23/2014 RASHMI MUD MILL TENDER, ALAN S 346.10 MIGRAINE WITHOUT AURA WITHOUT MENTION OF INTRACTABLE MIGRAINE WITHOUT MENTION OF STATUS MIGRAINOSUS 04/28/2014 PIERSON DO, LORENA K 250.01 DIABETES 1 CONTROLLED 04/28/2014 PIERSON DO, LORENA K 250.01 DIABETES 1 CONTROLLED 04/28/2014 RASHMI MUD MILL TENDERMARTIN AndersonNDA S 250.01 DIABETES 1 CONTROLLED 04/28/2014 RASHMI MUD MILL TENDERMARTIN AndersonNDA S 250.01 DIABETES 1 CONTROLLED 04/28/2014 NADINE GRAVES CHEN A 250.01 DIABETES 1 CONTROLLED 04/28/2014 RASHMI MUD MILL TENDERMARTIN AndersonNDA S 250.01 DIABETES 1 CONTROLLED 04/28/2014 250.01 DIABETES 1 CONTROLLED 04/28/2014 RASHMI MUD MILL TENDER, ALAN S 250.01 DIABETES 1 CONTROLLED 04/28/2014 RASHMI MUD MILL TENDER ALAN S 250.01 DIABETES 1 CONTROLLED 04/28/2014 RASHMI MUD MILL TENDER, ALAN S 250.01 DIABETES 1 CONTROLLED 04/28/2014 ALAN CARABALLO APRN S 250.01 DIABETES 1 CONTROLLED 05/18/2014 ANTONIO CARABALLO APRNA S 285.21 ANEMIA IN CHRONIC KIDNEY DISEASE 05/18/2014 ANTONIO CARABALLO APRNA S 285.21 ANEMIA IN CHRONIC KIDNEY DISEASE 05/18/2014 CHEN MCCOY APRN A 285.21 ANEMIA IN CHRONIC KIDNEY DISEASE [...] 285.21 ANEMIA IN CHRONIC KIDNEY DISEASE 07/21/2014 CHEN MCCOY APRN A 611.72 LUMP OR MASS IN BREAST 07/21/2014 CHEN MCCOY APRN A 626.4 IRREGULAR MENSTRUAL CYCLE 07/21/2014 CHEN MCCOY APRN A V72.31 ERGONOMICS TECHNICIAN EXAM, ROUTINE 07/21/2014 CHEN MCCOY APRN A V73.81 HPV SCREENING 07/21/2014 CHEN MCCOY APRN A V76.10 BREAST CANCER SCREENING 07/21/2014 CHEN MCCOY APRN A V76.2 CERVICAL CANCER SCREENING (PAP SMEAR) 07/21/2014 ALAN CARABALLO APRN S 611.72 LUMP OR MASS IN BREAST 07/21/2014 ALAN CARABALLO APRN S 626.4 IRREGULAR MENSTRUAL CYCLE 07/21/2014 ALAN CARABALLO APRN S V72.31 ERGONOMICS TECHNICIAN EXAM, ROUTINE 07/21/2014 ALAN CARABALLO APRN S V73.81 HPV SCREENING 07/21/2014 ALAN CARABALLO APRN S V76.10 BREAST CANCER SCREENING 07/21/2014 ALAN CARABALLO APRN S V76.2 CERVICAL CANCER SCREENING (PAP SMEAR) 07/21/2014 611.72 LUMP OR MASS IN BREAST 07/21/2014 626.4 IRREGULAR MENSTRUAL CYCLE 07/21/2014 V72.31 ERGONOMICS TECHNICIAN EXAM, ROUTINE 07/21/2014 V73.81 HPV SCREENING 07/21/2014 V76.10 BREAST CANCER SCREENING 07/21/2014 V76.2 CERVICAL CANCER SCREENING (PAP SMEAR) 07/21/2014 RASHMI MUD MILL TENDER, ALAN S 611.72 LUMP OR MASS IN BREAST 07/21/2014 RASHMI MUD MILL TENDER, ALAN S 626.4 IRREGULAR MENSTRUAL CYCLE 07/21/2014 RASHMI HARVEYN, ALAN S V72.31 ERGONOMICS TECHNICIAN EXAM, ROUTINE 07/21/2014 RASHMI MUD MILL TENDER, ALAN S V73.81 HPV SCREENING 07/21/2014 RASHMI MUD MILL TENDER, ALAN S V76.10 BREAST CANCER SCREENING 07/21/2014 RASHMI MUD MILL TENDER, ALAN S V76.2 CERVICAL CANCER SCREENING (PAP SMEAR) 07/21/2014 RASHMI MUD MILL TENDER, ALAN S 611.72 LUMP OR MASS IN BREAST 07/21/2014 RASHMI MUD MILL TENDER, LAAN S 626.4 IRREGULAR MENSTRUAL CYCLE 07/21/2014 RASHMI MUD MILL TENDER, ALAN S V72.31 ERGONOMICS TECHNICIAN EXAM, ROUTINE 07/21/2014 RASHMI GRAEVS, ALAN S V73.81 HPV SCREENING 07/21/2014 RASHMI MUD MILL TENDER, ALAN S V76.10 BREAST CANCER SCREENING 07/21/2014 RASHMI MUD MILL TENDER, ALAN S V76.2 CERVICAL CANCER SCREENING (PAP SMEAR) 07/21/2014 RASHMI GRAVES, ALAN S 611.72 LUMP OR MASS IN BREAST 07/21/2014 RASHMI MUD MILL TENDER, ALAN S 626.4 IRREGULAR MENSTRUAL CYCLE 07/21/2014 RASHMI MUD MILL TENDER, ALAN S V72.31 ERGONOMICS TECHNICIAN EXAM, ROUTINE 07/21/2014 RASHMI MUD MILL TENDER, ALAN S V73.81 HPV SCREENING 07/21/2014 RASHMI MUD MILL TENDER, ALAN S V76.10 BREAST CANCER SCREENING 07/21/2014 RASHMI MUD MILL TENDER, ALAN S V76.2 CERVICAL CANCER SCREENING (PAP SMEAR) 07/21/2014 RASHMI GRAVES, ALAN S 611.72 LUMP OR MASS IN BREAST 07/21/2014 ANTONIO CARABALLO APRNA S 626.4 IRREGULAR MENSTRUAL CYCLE 07/21/2014 ANTONIO CARABALLO APRNA S V72.31 ERGONOMICS TECHNICIAN EXAM, ROUTINE 07/21/2014 MARTIN CARABALLO APRNNDA S V73.81 HPV SCREENING 07/21/2014 MARTIN CARABALLO APRNNDA S V76.10 BREAST CANCER SCREENING 07/21/2014 MARTIN CARABALLO APRNNDA S V76.2 CERVICAL CANCER SCREENING (PAP SMEAR) 08/23/2014 793.80 ABNORMAL MAMMOGRAM 08/23/2014 MARTIN CARABALLO APRNNDA S 793.80 ABNORMAL MAMMOGRAM 08/23/2014 MARTIN CARABALLO APRNNDA S 793.80 ABNORMAL MAMMOGRAM 08/23/2014 MARTIN CARABALLO APRNNDA S 793.80 ABNORMAL MAMMOGRAM 08/23/2014 MARTIN CARABALLO APRNNDA S 793.80 ABNORMAL MAMMOGRAM 09/13/2014 ROLANDA MENDES [...] MD Ot V58.69 OTH MED,LT,CURRENT USE 11/22/2014 ANTONIO CARABALLO APRNA S 333.94 RESTLESS LEGS SYNDROME (RLS) 11/22/2014 MARTIN CARABALLO APRNNDA S 333.94 RESTLESS LEGS SYNDROME (RLS) 11/22/2014 MARTIN CARABALLO APRNNDA S 333.94 RESTLESS LEGS SYNDROME (RLS) 11/22/2014 RASHMI MUD MILL TENDER, ALAN S 333.94 RESTLESS LEGS SYNDROME (RLS) 12/01/2014 RASHMI MUD MILL TENDER, ALAN S 458.0 ORTHOSTATIC HYPOTENSION 12/01/2014 RASHMI MUD MILL TENDER, ALAN S 458.0 ORTHOSTATIC HYPOTENSION 12/01/2014 RASHMI MUD MILL TENDER, ALAN S 458.0 ORTHOSTATIC HYPOTENSION 02/15/2015 RASHMI MUD MILL TENDER, ALAN S 475 PERITONSILLAR ABSCESS 02/15/2015 RASHMI MUD MILL TENDER, ALAN S 475 PERITONSILLAR ABSCESS 02/23/2015 PATRICK [...] FACP CCDS Ot 729.81 03/02/2015 CHEN MCCOY MUD MILL TENDER Ot 611.72 03/02/2015 PATRICK CASTILLO, COREY Ot [...] CASTILLO, COREY Ot V15.82 03/02/2015 PATRICK CASTILLO, MANISHA-YING Ot V45.85 03/02/2015 PATRICK CASTILLO, MANISHA-YING Ot V58.69 03/03/2015 PATRICK CASTILLO, MANISHA-YING Ot 250.01 03/03/2015 PATRICK CASTILLO, DYER-YING Ot 285.9 03/03/2015 PATRICK CASTILLO, MANISHA-YING Ot 564.1 03/03/2015 PATRICK CASTILLO, COREY Ot V15.82 03/03/2015 PATRICK CASTILLO, MANISHA-YING Ot V45.85 03/03/2015 PATRICK CASTILLO, COREY Ot V58.69 03/09/2015 PATRICK CASTILLO, COREY Ot 250.01 03/09/2015 PATRICK CASTILLO, COREY Ot 285.9 03/09/2015 PATRICK CASTILLO, COREY Ot 564.1 03/09/2015 PATRICK CASTILLO, COREY Ot V15.82 03/09/2015 PATRICK CASTILLO, COREY Ot V45.85 03/09/2015 PATRICK CASTILLO, COREY Ot V58.69 03/10/2015 PATRICK CASTILLO, MANISHA-YING Ot 250.01 03/10/2015 PATRICK CASTILLO, COREY Ot [...] STATUS 05/31/2015 PATRICK CASTILLO, COREY Ot V58.69 OTH MED,LT,CURRENT USE 06/03/2015 PATRICK CASTILLO, COREY Ot 250.01 06/03/2015 PATRICK CASTILLO, COREY Ot 285.9 06/03/2015 PATRICK CASTILLO, COREY Ot 564.1 06/03/2015 PATRICK CASTILLO, COREY Ot V15.82 06/03/2015 PATRICK CASTILLO, MANISHA-YING Ot V45.85 06/03/2015 PATRICK CASTILLO, MANISHA-YING Ot V58.69 06/03/2015 PATRICK CASTILLO, MANISHA-YING Ot 250.01 06/03/2015 PATRIKC CASTILLO, MANISHA-YING Ot 285.9 06/03/2015 PATRICK CASTILLO, COREY Ot 564.1 06/03/2015 PATRICK CASTILLO, COREY Ot V15.82 06/03/2015 PATRICK CASTILLO, COREY Ot V45.85 06/03/2015 PATRICK CASTILLO, COREY Ot V58.69 06/06/2015 PATRICK CASTILLO, COREY Ot 250.01 06/06/2015 PATRICK CASTILLO, COREY Ot 285.9 06/06/2015 PATRICK CASTILLO, COREY Ot 564.1 06/06/2015 PATRICK CASTILLO, COREY Ot V15.82 06/06/2015 PATRICK CASTILLO, COREY Ot V45.85 06/06/2015 PATRICK CASTILLO, COREY Ot V58.69 06/07/2015 PATRICK CASTILLO, COREY Ot [...] STATUS 08/24/2015 PATRICK CASTILLO, COREY Ot V58.69 OTH MED,LT,CURRENT USE 08/29/2015 PATRICK CASTILLO, DYER-YING Ot 250.01 08/29/2015 PATRICK CASTILLO, DYER-YING Ot 285.9 08/29/2015 PATRICK CASTILLO, DYER-YING Ot 564.1 08/29/2015 PATRICK CASTILLO, DYER-YING Ot V15.82 08/29/2015 PATRICK CASTILLO, DYER-YING Ot V45.85 08/29/2015 PATRICK CASTILLO, DYER-YING Ot V58.69 10/25/2015 PATRICK CASTILLO, DYER-YING Ot 250.01 10/25/2015 PATRICK CASTILLO, DYER-YING Ot 285.9 10/25/2015 PATRICK CASTILLO, DYER-YING Ot 564.1 10/25/2015 PATRICK CASTILLO, MANISHA-YING Ot V15.82 10/25/2015 PATRICK CASTILLO, MANISHA-YING Ot V45.85 10/25/2015 PATRICK CASTILLO, COREY Ot V58.69 11/16/2015 PATRICK CASTILLO, COREY Ot D64.9 11/16/2015 PATRICK CASTILLO, COREY Ot E11.9 11/16/2015 PATRICK CASTILLO, MANISHA-YING Ot K58.9 11/16/2015 PATRICK CASTILLO, MANISHA-YING Ot Z79.899 11/16/2015 PATRICK CASTILLO, COREY Ot Z87.891 11/22/2015 PATRICK CASTILLO, COREY Ot D64.9 11/22/2015 PATRICK CASTILLO, COREY Ot E11.9 11/22/2015 PATRICK CASTILLO, MANISHA-YING Ot K58.9 11/22/2015 PATRICK CASTILLO, MANISHA-YING Ot Z79.899 11/22/2015 PATRICK CASTILLO, MANISHA-YING Ot Z87.891 11/28/2015 PATRICK CASTILLO, COREY Ot D63.1 ANEMIA IN CHRONIC KIDNEY DISEASE 11/28/2015 PATRICK CASTILLO, COREY Ot D64.9 11/28/2015 PATRICK CASTILLO, COREY Ot 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 ADMINISTRATIVE PROCESSOR 11/28/2015 PATRICK CASTILLO, COREY Ot E11.9 11/28/2015 PATRICK CASTILLO, COREY Ot K58.9 IRRITABLE BOWEL SYNDROME WITHOUT DIARRHE 11/28/2015 PATRICK CASTILLO, COREY Ot N18.9 CHRONIC KIDNEY DISEASE, UNSPECIFIED 11/28/2015 PATRICK CASTILLO, DYERFELICITAS Ot Z79.899 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 PATROLLER (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) DRUG THERAPY 11/28/2015 PATRICK CASTILLO, DYER-YING Ot Z87.891 PERSONAL HISTORY OF NICOTINE DEPENDENCE 12/02/2015 PATRICK CASTILLO, DYER-YING Ot D64.9 12/02/2015 PATRICK CASTILLO, DYER-YING Ot E11.9 12/02/2015 PATRICK CASTILLO, DYER-YING Ot K58.9 12/02/2015 PATRICK CASTILLO, DYER-YING Ot Z79.899 12/02/2015 PATRICK CASTILLO, DYER-YING Ot Z87.891 12/08/2015 PATRICK CASTILLO, DYER-YING Ot D64.9 12/08/2015 PATRICK CASTILLO, DYER-YING Ot E11.9 12/08/2015 PATRICK CASTILLO, DYER-YING Ot K58.9 12/08/2015 PATRICK CASTILLO, MANISHA-YING Ot Z79.899 12/08/2015 PATRICK CASTILLO, DYER-YING Ot Z87.891 12/27/2015 SAMANTHA DEE MEDICAL PHYSICS PROFESSOR Ot M70.61 01/11/2016 PATRICK CASTILLO, DYER-YING Ot D63.1 01/11/2016 PATRICK CASTILLO, DYER-YING Ot E10.21 01/11/2016 PATRICK CASTILLO, DYER-YING Ot K58.9 01/11/2016 PATRICK CASTILLO, DYER-YING Ot N18.9 01/11/2016 PATRICK CASTILLO, MANISHA-YING Ot Z79.4 01/11/2016 PATRICK CASTILLO, DYER-YING Ot Z79.899 01/11/2016 PATRICK CASTILLO, DYER-YING Ot Z87.891 01/19/2016 SAMANTHA DEE MEDICAL PHYSICS PROFESSOR Ot M70.61 01/19/2016 SAMANTHA DEE MEDICAL PHYSICS PROFESSOR Ot M70.61 TROCHANTERIC BURSITIS, RIGHT HIP 01/30/2016 FACUNDO CASTILLO FACC, ALI FACP CCDS Ot 780.2 01/30/2016 FACUNDO CASTILLO FACC, ALI FACP CCDS Ot 786.59 01/30/2016 FACUNDO CASTILLO FACC, ALI FACP CCDS Ot 780.2 01/30/2016 FACUNDO CASTILLO FACC, ALI FACP CCDS Ot 786.59 01/30/2016 FACUNDO CASTILLO FACC, ALI FACP CCDS Ot 729.81 01/30/2016 CHEN MCCOY MUD MILL TENDER Ot 611.72 01/30/2016 PATRICK CASTILLO, COREY Ot D63.1 01/30/2016 PATRICK CASTILLO, DYERFELICITAS Ot E10.21 01/30/2016 PATRICK CASTILLO, COREY Ot K58.9 01/30/2016 PATRICK CASTILLO, MANISHA-YING Ot N18.9 01/30/2016 PATRICK CASTILLO, MANISHAYING Ot Z79.4 01/30/2016 PATRICK CASTILLO, COREY Ot Z79.899 01/30/2016 PATRICK CASTILLO, COREY Ot Z87.891 02/21/2016 HANNAH CASTILLO, LOR Ot D64.9 02/21/2016 HANNAH CASTILLO, LOR Ot E10.22 02/21/2016 HANNAH CASTILLO, LOR Ot I12.9 02/21/2016 HANNAH CASTILLO, LOR Ot N18.3 02/21/2016 HANNAH CASTILLO, LOR Ot R80.9 02/29/2016 PATRICK CASTILLO, COREY Ot D63.1 02/29/2016 PATRICK CASTILLO, MANISHA-YING Ot E10.21 02/29/2016 PATRICK CASTILLO, COREY Ot K58.9 02/29/2016 PATRICK CASTILLO, DYERStoneYING Ot N18.9 02/29/2016 PATRICK CASTILLO, COREY Ot Z79.4 02/29/2016 PATRICK CASTILLO, COREY Ot Z79.899 02/29/2016 PATRICK CASTILLO, COREY Ot Z87.891 03/05/2016 HANNAH CASTILLO, LOR Ot D64.9 03/05/2016 HANNAH CASTILLO, LOR Ot E10.22 03/05/2016 HANNAH CASTILLO, LOR Ot I12.9 03/05/2016 HANNAH CASTILLO, LOR Ot N18.3 03/05/2016 HANNAH CASTILLO, LOR Ot R80.9 03/05/2016 HANNAH CASTILLO, OLR Ot D64.9 03/05/2016 HANNAH CASTILLO, LOR Ot E10.22 03/05/2016 HANNAH CASTILLO, LOR Ot I12.9 03/05/2016 HANNAH CASTILLO, LOR Ot N18.3 03/05/2016 HANNAH CASTILLO, LOR Ot R80.9 03/06/2016 COREY NGUYEN MD, Ot D63.1 ANEMIA IN CHRONIC KIDNEY DISEASE 03/06/2016 COREY NGUYEN MD Ot E10.21 TYPE 1 DIABETES MELLITUS WITH DIABETIC N 03/06/2016 COREY NGUYEN MD, Ot K58.9 IRRITABLE BOWEL SYNDROME WITHOUT DIARRHE 03/06/2016 COREY NGUYEN MD, Ot N18.9 CHRONIC KIDNEY DISEASE, UNSPECIFIED 03/06/2016 COREY NGUYEN MD, Ot Z79.4 FPC (CURRENT) USE OF INSULIN 03/06/2016 COREY NGUYEN MD, Ot Z79.899 OTHER PARKING PATROLLER (CURRENT) DRUG THERAPY 03/06/2016 COREY NGUYEN MD, Ot Z87.891 PERSONAL HISTORY OF NICOTINE DEPENDENCE 03/22/2016 COREY NGUYEN MD, Ot D63.1 ANEMIA IN CHRONIC KIDNEY DISEASE 03/22/2016 COREY NGUYEN MD Ot E10.21 TYPE 1 DIABETES MELLITUS WITH DIABETIC N 03/22/2016 COREY NGUYEN MD, Ot K58.9 IRRITABLE BOWEL SYNDROME WITHOUT DIARRHE 03/22/2016 COREY NGUYEN MD, Ot N18.9 CHRONIC KIDNEY DISEASE, UNSPECIFIED 03/22/2016 COREY NGUYEN MD, Ot Z79.4 PARKING PATROLLER (CURRENT) USE OF INSULIN 03/22/2016 COREY NGUYEN MD, Ot Z79.899 OTHER PARKING PATROLLER (CURRENT) DRUG THERAPY 03/22/2016 COREY NGUYEN MD, Ot Z87.891 PERSONAL HISTORY OF NICOTINE DEPENDENCE 04/16/2016 COREY NGUYEN MD, Ot D63.1 ANEMIA IN CHRONIC KIDNEY DISEASE 04/16/2016 COREY NGUYEN MD Ot E10.21 TYPE 1 DIABETES MELLITUS WITH DIABETIC N 04/16/2016 COREY NGUYEN MD, Ot K58.9 IRRITABLE BOWEL SYNDROME WITHOUT DIARRHE 04/16/2016 COREY NGUYEN MD, Ot N18.9 CHRONIC KIDNEY DISEASE, UNSPECIFIED 04/16/2016 COREY NGUYEN MD, Ot Z79.4 FPC (CURRENT) USE OF INSULIN 04/16/2016 COREY NGUYEN MD Ot Z79.899 OTHER FPC (CURRENT) DRUG THERAPY 04/16/2016 COREY NGUYEN MD Ot Z87.891 PERSONAL HISTORY OF NICOTINE DEPENDENCE 04/24/2016 COREY NGUYEN MD Ot D63.1 ANEMIA IN CHRONIC KIDNEY DISEASE 04/24/2016 COREY NGUYEN MD Ot E10.21 TYPE 1 DIABETES MELLITUS WITH DIABETIC N 04/24/2016 COREY NGUYEN MD Ot K58.9 IRRITABLE BOWEL SYNDROME WITHOUT DIARRHE 04/24/2016 COREY NGUYEN MD Ot N18.9 CHRONIC KIDNEY DISEASE, UNSPECIFIED 04/24/2016 COREY NGUYEN MD Ot Z79.4 FPC (CURRENT) USE OF INSULIN 04/24/2016 COREY NGUYEN MD Ot Z79.899 OTHER FPC (CURRENT) DRUG THERAPY 04/24/2016 COREY NGUYEN MD, Ot Z87.891 PERSONAL HISTORY OF NICOTINE DEPENDENCE 04/24/2016 COREY NGUYEN MD, Ot D63.1 ANEMIA IN CHRONIC KIDNEY DISEASE 04/24/2016 COREY NGUYEN MD Ot E10.21 TYPE 1 DIABETES MELLITUS WITH DIABETIC N 04/24/2016 COREY NGUYEN MD Ot K58.9 IRRITABLE BOWEL SYNDROME WITHOUT DIARRHE 04/24/2016 COREY NGUYEN MD Ot N18.9 CHRONIC KIDNEY DISEASE, UNSPECIFIED 04/24/2016 COREY NGUYEN MD Ot Z79.4 PARKING PATROLLER (CURRENT) USE OF INSULIN 04/24/2016 COREY NGUYEN MD Ot Z79.899 OTHER FPC (CURRENT) DRUG THERAPY 04/24/2016 COREY NGUYEN MD Ot Z87.891 PERSONAL HISTORY OF NICOTINE DEPENDENCE 04/30/2016 LOR YOUNG MD Ot D64.9 ANEMIA, UNSPECIFIED 04/30/2016 LOR YOUNG MD Ot 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 ADMINISTRATIVE PROCESSOR 04/30/2016 KEVIN YOUNG MDINE Ot I12.9 HYPERTENSIVE CHRONIC KIDNEY DISEASE W ST 04/30/2016 KEVIN YOUNG MDINE Ot N18.3 CHRONIC KIDNEY DISEASE, STAGE 3 (MODERAT 04/30/2016 KEVIN YOUNG MDINE Ot R80.9 PROTEINURIA, UNSPECIFIED 05/01/2016 HANNAH CASTILLO, LOR Ot D64.9 ANEMIA, UNSPECIFIED 05/01/2016 HANNAH CASTILLO, LOR Ot 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 ADMINISTRATIVE PROCESSOR 05/01/2016 HANNAH CASTILLO, LOR Ot I12.9 HYPERTENSIVE CHRONIC KIDNEY DISEASE W ST 05/01/2016 HANNAH CASTILLO, LOR Ot N18.3 CHRONIC KIDNEY DISEASE, STAGE 3 (MODERAT 05/01/2016 LOR YOUNG MD Ot R80.9 PROTEINURIA, UNSPECIFIED 05/04/2016 COREY NGUYEN MD Ot D63.1 ANEMIA IN CHRONIC KIDNEY DISEASE 05/04/2016 COREY NGUYEN MD Ot E10.21 TYPE 1 DIABETES MELLITUS WITH DIABETIC N 05/04/2016 COREY NGUYEN MD Ot K58.9 IRRITABLE BOWEL SYNDROME WITHOUT DIARRHE 05/04/2016 COREY NGUYEN MD Ot N18.9 CHRONIC KIDNEY DISEASE, UNSPECIFIED 05/04/2016 COREY NGUYEN MD Ot Z79.4 PARKING PATROLLER (CURRENT) USE OF INSULIN 05/04/2016 COREY NGUYEN MD Ot Z79.899 OTHER PARKING PATROLLER (CURRENT) DRUG THERAPY 05/04/2016 COREY NGUYEN MD Ot Z87.891 PERSONAL HISTORY OF NICOTINE DEPENDENCE 05/17/2016 LOR YOUNG MD Ot D64.9 ANEMIA, UNSPECIFIED 05/17/2016 LOR YOUNG MD Ot 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 ADMINISTRATIVE PROCESSOR 05/17/2016 KEVIN YOUNG MDINE Ot I12.9 HYPERTENSIVE CHRONIC KIDNEY DISEASE W ST 05/17/2016 HANNAH CASTILLO, LOR Ot N18.3 CHRONIC KIDNEY DISEASE, STAGE 3 (MODERAT 05/17/2016 LOR YOUNG MD Ot R80.9 PROTEINURIA, UNSPECIFIED 05/22/2016 HANNAH CASTILLO, LOR Ot D64.9 ANEMIA, UNSPECIFIED 05/22/2016 HANNAH CASTILLO, LOR Ot 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 ADMINISTRATIVE PROCESSOR 05/22/2016 KEVIN YOUNG MDINE Ot I12.9 HYPERTENSIVE CHRONIC KIDNEY DISEASE W ST 05/22/2016 LOR YOUNG MD Ot N18.3 CHRONIC KIDNEY DISEASE, STAGE 3 (MODERAT 05/22/2016 HANNAH CASTILLO, LOR Ot R80.9 PROTEINURIA, UNSPECIFIED 06/19/2016 COREY NGUYEN MD, Ot D63.1 ANEMIA IN CHRONIC KIDNEY DISEASE 06/19/2016 COREY NGUYEN MD Ot E10.21 TYPE 1 DIABETES MELLITUS WITH DIABETIC N 06/19/2016 COREY NGUYEN MD Ot K58.9 IRRITABLE BOWEL SYNDROME WITHOUT DIARRHE 06/19/2016 COREY NGUYEN MD, Ot N18.9 CHRONIC KIDNEY DISEASE, UNSPECIFIED 06/19/2016 COREY NGUYEN MD, Ot Z79.4 FPC (CURRENT) USE OF INSULIN 06/19/2016 COREY NGUYEN MD Ot Z79.899 OTHER PARKING PATROLLER (CURRENT) DRUG THERAPY 06/19/2016 COREY NGUYEN MD, Ot Z87.891 PERSONAL HISTORY OF NICOTINE DEPENDENCE 07/05/2016 OCREY NGUYEN MD Ot D63.1 ANEMIA IN CHRONIC KIDNEY DISEASE 07/05/2016 COREY NGUYEN MD Ot E10.21 TYPE 1 DIABETES MELLITUS WITH DIABETIC N 07/05/2016 COREY NGUYEN MD Ot K58.9 IRRITABLE BOWEL SYNDROME WITHOUT DIARRHE 07/05/2016 COREY NGUYEN MD, Ot N18.9 CHRONIC KIDNEY DISEASE, UNSPECIFIED 07/05/2016 COREY NGUYEN MD, Ot Z79.4 FPC (CURRENT) USE OF INSULIN 07/05/2016 COREY NGUYEN MD, Ot Z79.899 OTHER FPC (CURRENT) DRUG THERAPY 07/05/2016 COREY NGUYEN MD, Ot Z87.891 PERSONAL HISTORY OF NICOTINE DEPENDENCE 08/06/2016 HANNAH CASTILLO, FADI S Ot D64.9 ANEMIA, UNSPECIFIED 08/06/2016 HANNAH CASTILLO, FADI S Ot 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 ADMINISTRATIVE PROCESSOR 08/06/2016 HANNAH CASTILLO, GONZALOMED S Ot I95.89 OTHER HYPOTENSION 08/06/2016 HANNAH CASTILLO, FADI S Ot N18.3 CHRONIC KIDNEY DISEASE, STAGE 3 (MODERAT 08/06/2016 HANNAH CASTILLO, GONZALOMED S Ot R80.9 PROTEINURIA, UNSPECIFIED 08/06/2016 HANNAH CASTILLO, FADI S Ot D64.9 ANEMIA, UNSPECIFIED 08/06/2016 HANNAH CASTILLO, FADI S Ot 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 ADMINISTRATIVE PROCESSOR 08/06/2016 HANNAH CASTILLO, AHMED S Ot I95.89 OTHER HYPOTENSION 08/06/2016 HANNAH CASTILLO, GONZALOMED S Ot N18.3 CHRONIC KIDNEY DISEASE, STAGE 3 (MODERAT 08/06/2016 HANNAH CASTILLO, FADI S Ot R80.9 PROTEINURIA, UNSPECIFIED 08/16/2016 HANNAH [...] MELLITUS WITH DIABETIC N 08/16/2016 COREY NGUYEN MD, Ot K58.9 IRRITABLE BOWEL SYNDROME WITHOUT DIARRHE 08/16/2016 COREY NGUYEN MD, Ot N18.9 CHRONIC KIDNEY DISEASE, UNSPECIFIED 08/16/2016 COREY NGUYEN MD, Ot Z79.4 PARKING PATROLLER (CURRENT) USE OF INSULIN 08/16/2016 COREY NGUYEN MD Ot Z79.899 OTHER PARKING PATROLLER (CURRENT) DRUG THERAPY 08/16/2016 COREY NGUYEN MD, Ot Z87.891 PERSONAL HISTORY OF NICOTINE DEPENDENCE 08/22/2016 COREY NGUYEN MD, Ot D63.1 ANEMIA IN CHRONIC KIDNEY DISEASE 08/22/2016 COREY NGUYEN MD Ot E10.21 TYPE 1 DIABETES MELLITUS WITH DIABETIC N 08/22/2016 COREY NGUYEN MD Ot K58.9 IRRITABLE BOWEL SYNDROME WITHOUT DIARRHE 08/22/2016 COREY NGUYEN MD, Ot N18.9 CHRONIC KIDNEY DISEASE, UNSPECIFIED 08/22/2016 COREY NGUYEN MD Ot Z79.4 FPC (CURRENT) USE OF INSULIN 08/22/2016 COREY NGUYEN MD Ot Z79.899 OTHER FPC (CURRENT) DRUG THERAPY 08/22/2016 COREY NGUYEN MD Ot Z87.891 PERSONAL HISTORY OF NICOTINE DEPENDENCE 08/22/2016 LOR YOUNG MD Ot D64.9 ANEMIA, UNSPECIFIED 08/22/2016 KEVIN YOUNG MDINE Ot E10.9 TYPE 1 DIABETES MELLITUS WITHOUT COMPLIC 08/22/2016 HANNAH CASTILLO LOR Ot I95.89 OTHER HYPOTENSION 08/22/2016 LOR YOUNG MD Ot N18.3 CHRONIC KIDNEY DISEASE, STAGE 3 (MODERAT 08/22/2016 LOR YOUNG MD Ot R80.9 PROTEINURIA, UNSPECIFIED 08/22/2016 LOR YOUNG MD Ot D64.9 ANEMIA, UNSPECIFIED 08/22/2016 HANNAH CASTILLO LOR Ot E10.9 TYPE 1 DIABETES MELLITUS WITHOUT COMPLIC 08/22/2016 HANNAH CASTILLO LOR Ot I95.89 OTHER HYPOTENSION 08/22/2016 LOR YOUNG MD Ot N18.3 CHRONIC KIDNEY DISEASE, STAGE 3 (MODERAT 08/22/2016 HANNAH CASTILLO LOR Ot R80.9 PROTEINURIA, UNSPECIFIED 08/22/2016 HANNAH CASTILLO LOR Ot D64.9 ANEMIA, UNSPECIFIED 08/22/2016 HANNAH CASTILLO LOR Ot E10.9 TYPE 1 DIABETES MELLITUS WITHOUT COMPLIC 08/22/2016 HANNAH CASTILLO LOR Ot I95.89 OTHER HYPOTENSION 08/22/2016 LOR YOUNG MD Ot N18.3 CHRONIC KIDNEY DISEASE, STAGE 3 (MODERAT 08/22/2016 KEVIN YOUNG MDINE Ot R80.9 PROTEINURIA, UNSPECIFIED 08/22/2016 HANNAH CASTILLO LOR Ot D64.9 ANEMIA, UNSPECIFIED 08/22/2016 HANNAH CASTILLO LOR Ot E10.9 TYPE 1 DIABETES MELLITUS WITHOUT COMPLIC 08/22/2016 HANNAH CASTILLO LOR Ot I95.89 OTHER HYPOTENSION 08/22/2016 LOR YOUNG MD Ot N18.3 CHRONIC KIDNEY DISEASE, STAGE 3 (MODERAT 08/22/2016 LOR YOUNG MD Ot R80.9 PROTEINURIA, UNSPECIFIED 08/22/2016 LOR YOUNG MD Ot D64.9 ANEMIA, UNSPECIFIED 08/22/2016 LOR YOUNG MD Ot E10.9 TYPE 1 DIABETES MELLITUS WITHOUT COMPLIC 08/22/2016 LOR YOUNG MD Ot I95.89 OTHER HYPOTENSION 08/22/2016 LOR YOUNG MD Ot N18.3 CHRONIC KIDNEY DISEASE, STAGE 3 (MODERAT 08/22/2016 LOR YOUNG MD Ot R80.9 PROTEINURIA, UNSPECIFIED 08/22/2016 LOR YOUNG MD Ot D64.9 ANEMIA, UNSPECIFIED 08/22/2016 LOR YOUNG MD Ot E10.9 TYPE 1 DIABETES MELLITUS WITHOUT COMPLIC 08/22/2016 LOR YOUNG MD Ot I95.89 OTHER HYPOTENSION 08/22/2016 LOR YOUNG MD Ot N18.3 CHRONIC KIDNEY DISEASE, STAGE 3 (MODERAT 08/22/2016 LOR YOUNG MD Ot R80.9 PROTEINURIA, UNSPECIFIED 08/27/2016 COREY NGUYEN MD Ot D63.1 ANEMIA IN CHRONIC KIDNEY DISEASE 08/27/2016 COREY NGUYEN MD Ot E10.21 TYPE 1 DIABETES MELLITUS WITH DIABETIC N 08/27/2016 COREY NGUYEN MD Ot K58.9 IRRITABLE BOWEL SYNDROME WITHOUT DIARRHE 08/27/2016 COREY NGUYEN MD Ot N18.9 CHRONIC KIDNEY DISEASE, UNSPECIFIED 08/27/2016 COREY NGUYEN MD Ot Z79.4 FPC (CURRENT) USE OF INSULIN 08/27/2016 COERY NGUYEN MD Ot Z79.899 OTHER PARKING PATROLLER (CURRENT) DRUG THERAPY 08/27/2016 COREY NGUYEN MD, Ot Z87.891 PERSONAL HISTORY OF NICOTINE DEPENDENCE 08/27/2016 FADI YOUNG MD S Ot D64.9 ANEMIA, UNSPECIFIED 08/27/2016 HANNAH CASTILLO AHMED S Ot 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 ADMINISTRATIVE PROCESSOR 08/27/2016 HANNAH CASTILLO, FADI S Ot I95.89 OTHER HYPOTENSION 08/27/2016 HANNAH CASTILLO, FADI S Ot N18.3 CHRONIC KIDNEY DISEASE, STAGE 3 (MODERAT 08/27/2016 HANNAH CASTILLO, GONZALOMED S Ot R80.9 PROTEINURIA, UNSPECIFIED 08/30/2016 HANNAH CASTILLO, GONZALOMED S Ot D64.9 ANEMIA, UNSPECIFIED 08/30/2016 HANNAH CASTILLO, FADI S Ot 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 ADMINISTRATIVE PROCESSOR 08/30/2016 FADI YOUNG MD S Ot I95.89 OTHER HYPOTENSION 08/30/2016 HANNAH CASTILLO, FADI S Ot N18.3 CHRONIC KIDNEY DISEASE, STAGE 3 (MODERAT 08/30/2016 FADI YOUNG MD S Ot R80.9 PROTEINURIA, UNSPECIFIED 09/04/2016 COREY NGUYEN MD Ot D63.1 ANEMIA IN CHRONIC KIDNEY DISEASE 09/04/2016 COREY NGUYEN MD Ot E10.21 TYPE 1 DIABETES MELLITUS WITH DIABETIC N 09/04/2016 COREY NGUYEN MD Ot K58.9 IRRITABLE BOWEL SYNDROME WITHOUT DIARRHE 09/04/2016 COREY NGUYEN MD, Ot N18.9 CHRONIC KIDNEY DISEASE, UNSPECIFIED 09/04/2016 COREY NGUYEN MD Ot Z79.4 PARKING PATROLLER (CURRENT) USE OF INSULIN 09/04/2016 COREY NGUYEN MD Ot Z79.899 OTHER FPC (CURRENT) DRUG THERAPY 09/04/2016 COREY NGUYEN MD Ot Z87.891 PERSONAL HISTORY OF NICOTINE DEPENDENCE 09/05/2016 LOR YOUNG MD Ot D64.9 ANEMIA, UNSPECIFIED 09/05/2016 LOR YOUNG MD Ot E10.9 TYPE 1 DIABETES MELLITUS WITHOUT COMPLIC 09/05/2016 KEVIN YOUNG MDINE Ot I95.89 OTHER HYPOTENSION 09/05/2016 LOR YOUNG MD Ot N18.3 CHRONIC KIDNEY DISEASE, STAGE 3 (MODERAT 09/05/2016 KEVIN YOUNG MDINE Ot R80.9 PROTEINURIA, UNSPECIFIED 09/07/2016 LOR YOUNG MD Ot D64.9 ANEMIA, UNSPECIFIED 09/07/2016 LOR YOUNG MD Ot E10.9 TYPE 1 DIABETES MELLITUS WITHOUT COMPLIC 09/07/2016 LOR YOUNG MD Ot I95.89 OTHER HYPOTENSION 09/07/2016 LOR YOUNG MD Ot N18.3 CHRONIC KIDNEY DISEASE, STAGE 3 (MODERAT 09/07/2016 LOR YOUNG MD Ot R80.9 PROTEINURIA, UNSPECIFIED 10/09/2016 COREY NGUYEN MD, Ot D63.1 ANEMIA IN CHRONIC KIDNEY DISEASE 10/09/2016 COREY NGUYEN MD Ot E10.21 TYPE 1 DIABETES MELLITUS WITH DIABETIC N 10/09/2016 COREY NGUYEN MD, Ot K58.9 IRRITABLE BOWEL SYNDROME WITHOUT DIARRHE 10/09/2016 COREY NGUYEN MD, Ot N18.9 CHRONIC KIDNEY DISEASE, UNSPECIFIED 10/09/2016 COREY NGUYEN MD, Ot Z79.4 FPC (CURRENT) USE OF INSULIN 10/09/2016 COREY NGUYEN MD, Ot Z79.899 OTHER PARKING PATROLLER (CURRENT) DRUG THERAPY 10/09/2016 COREY NGUYEN MD, Ot Z87.891 PERSONAL HISTORY OF NICOTINE DEPENDENCE 10/09/2016 FACUNDO CASTILLO FACC, MELCHOR FACP CCDS Ot 780.2 SYNCOPE AND COLLAPSE 10/09/2016 FACUNDO CASTILLO FACC, ALI FACP CCDS Ot 786.59 CHEST PAIN NEC 10/09/2016 FACUNDO CASTILLO FACC, ALI FACP CCDS Ot 780.2 SYNCOPE AND COLLAPSE 10/09/2016 FACUNDO CASTILLO FACC, ALI FACP CCDS Ot 786.59 CHEST PAIN NEC 10/09/2016 FACUNDO CASTILLO FACRandolph, ALI FACP CCDS Ot 729.81 SWELLING OF LIMB 10/09/2016 CHEN MCCOY APRN Ot 611.72 LUMP OR MASS IN BREAST 10/09/2016 LOR YOUNG MD Ot D64.9 ANEMIA, UNSPECIFIED 10/09/2016 LOR YOUNG MD Ot 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 ADMINISTRATIVE PROCESSOR 10/09/2016 LOR YOUNG MD Ot I12.9 HYPERTENSIVE CHRONIC KIDNEY DISEASE W ST 10/09/2016 HANNAH CASTILLO, LOR Ot N18.3 CHRONIC KIDNEY DISEASE, STAGE 3 (MODERAT 10/09/2016 HANNAH CASTILLO, LOR Ot R80.9 PROTEINURIA, UNSPECIFIED 10/09/2016 HANNAH CASTILLO, LOR Ot D64.9 ANEMIA, UNSPECIFIED 10/09/2016 HANNAH CASTILLO, LOR Ot 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 ADMINISTRATIVE PROCESSOR 10/09/2016 HANNAH CASTILLO, LOR Ot I12.9 HYPERTENSIVE CHRONIC KIDNEY DISEASE W ST 10/09/2016 HANNAH CASTILLO, LOR Ot N18.3 CHRONIC KIDNEY DISEASE, STAGE 3 (MODERAT 10/09/2016 LOR YOUNG MD Ot R80.9 PROTEINURIA, UNSPECIFIED 10/09/2016 HANNAH CASTILLO, GONZALOMED S Ot D64.9 ANEMIA, UNSPECIFIED 10/09/2016 HANNAH CASTILLO, GONZALOMED S Ot 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 ADMINISTRATIVE PROCESSOR 10/09/2016 HANNAH CASTILLO, AHMED S Ot I95.89 OTHER HYPOTENSION 10/09/2016 HANNAH CASTILLO, GONZALOMED S Ot N18.3 CHRONIC KIDNEY DISEASE, STAGE 3 (MODERAT 10/09/2016 HANNAH CASTILLO, FADI S Ot R80.9 PROTEINURIA, UNSPECIFIED 10/09/2016 HANNAH CASTILLO, LOR Ot D64.9 ANEMIA, UNSPECIFIED 10/09/2016 HANNAH CASTILLO, LOR Ot E10.9 TYPE 1 DIABETES MELLITUS WITHOUT COMPLIC 10/09/2016 HANNAH CASTILLO, LOR Ot I95.89 OTHER HYPOTENSION 10/09/2016 HANNAH CASTILLO, LOR Ot N18.3 CHRONIC KIDNEY DISEASE, STAGE 3 (MODERAT 10/09/2016 LOR YOUNG MD Ot R80.9 PROTEINURIA, UNSPECIFIED 10/09/2016 COREY NGUYEN MD Ot D63.1 ANEMIA IN CHRONIC KIDNEY DISEASE 10/09/2016 COREY NGUYEN MD Ot E10.21 TYPE 1 DIABETES MELLITUS WITH DIABETIC N 10/09/2016 COREY NGUYEN MD Ot K58.9 IRRITABLE BOWEL SYNDROME WITHOUT DIARRHE 10/09/2016 COREY NGUYEN MD Ot N18.9 CHRONIC KIDNEY DISEASE, UNSPECIFIED 10/09/2016 COREY NGUYEN MD Ot Z79.4 PARKING PATROLLER (CURRENT) USE OF INSULIN 10/09/2016 COREY NGUYEN MD Ot Z79.899 OTHER FPC (CURRENT) DRUG THERAPY 10/09/2016 COREY NGUYEN MD Ot Z87.891 PERSONAL HISTORY OF NICOTINE DEPENDENCE 10/16/2016 COREY NGUYEN MD Ot D63.1 ANEMIA IN CHRONIC KIDNEY DISEASE 10/16/2016 COREY NGUYEN MD Ot E10.21 TYPE 1 DIABETES MELLITUS WITH DIABETIC N 10/16/2016 COREY NGUYEN MD Ot K58.9 IRRITABLE BOWEL SYNDROME WITHOUT DIARRHE 10/16/2016 COREY NGUYEN MD, Ot N18.9 CHRONIC KIDNEY DISEASE, UNSPECIFIED 10/16/2016 COREY NGUYEN MD Ot Z79.4 PARKING PATROLLER (CURRENT) USE OF INSULIN 10/16/2016 COREY NGUYEN MD Ot Z79.899 OTHER PARKING PATROLLER (CURRENT) DRUG THERAPY 10/16/2016 COREY NGUYEN MD Ot Z87.891 PERSONAL HISTORY OF NICOTINE DEPENDENCE 10/23/2016 COREY NGUYEN MD Ot D63.1 ANEMIA IN CHRONIC KIDNEY DISEASE 10/23/2016 COREY NGUYEN MD Ot E10.21 TYPE 1 DIABETES MELLITUS WITH DIABETIC N 10/23/2016 COREY NGUYEN MD Ot K58.9 IRRITABLE BOWEL SYNDROME WITHOUT DIARRHE 10/23/2016 COREY NGUYEN MD, Ot N18.9 CHRONIC KIDNEY DISEASE, UNSPECIFIED 10/23/2016 COREY NGUYEN MD Ot Z79.4 FPC (CURRENT) USE OF INSULIN 10/23/2016 COREY NGUYEN MD Ot Z79.899 OTHER FPC (CURRENT) DRUG THERAPY 10/23/2016 COREY NGUYEN MD Ot Z87.891 PERSONAL HISTORY OF NICOTINE DEPENDENCE 10/31/2016 FACUNDO CASTILLO FACC, ALI FACP CCDS Ot 780.2 SYNCOPE AND COLLAPSE 10/31/2016 FACUNDO CASTILLO FACC, ALI FACP CCDS Ot 786.59 CHEST PAIN NEC 10/31/2016 FACUNDO CASTILLO FACC, ALI FACP CCDS Ot 780.2 SYNCOPE AND COLLAPSE 10/31/2016 FACUNDO CASTILLO FACC, ALI FACP CCDS Ot 786.59 CHEST PAIN NEC 10/31/2016 FACUNDO CASTILLO FAC, ALI FACP CCDS Ot 729.81 SWELLING OF LIMB 10/31/2016 CHEN MCCOY ELY Ot 611.72 LUMP OR MASS IN BREAST 10/31/2016 LOR YOUNG MD Ot D64.9 ANEMIA, UNSPECIFIED 10/31/2016 LOR YOUNG MD Ot 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 ADMINISTRATIVE PROCESSOR 10/31/2016 LOR YOUNG MD Ot I12.9 HYPERTENSIVE CHRONIC KIDNEY DISEASE W ST 10/31/2016 LOR YOUNG MD Ot N18.3 CHRONIC KIDNEY DISEASE, STAGE 3 (MODERAT 10/31/2016 LOR YOUNG MD Ot R80.9 PROTEINURIA, UNSPECIFIED 10/31/2016 LOR YOUNG MD Ot D64.9 ANEMIA, UNSPECIFIED 10/31/2016 LOR YOUNG MD Ot 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 ADMINISTRATIVE PROCESSOR 10/31/2016 LOR YOUNG MD Ot I12.9 HYPERTENSIVE CHRONIC KIDNEY DISEASE W ST 10/31/2016 LOR YOUNG MD Ot N18.3 CHRONIC KIDNEY DISEASE, STAGE 3 (MODERAT 10/31/2016 LOR YOUNG MD Ot R80.9 PROTEINURIA, UNSPECIFIED 10/31/2016 FADI YOUNG MD S Ot D64.9 ANEMIA, UNSPECIFIED 10/31/2016 FADI YOUNG MD S Ot 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 ADMINISTRATIVE PROCESSOR 10/31/2016 FADI YOUNG MD S Ot I95.89 OTHER HYPOTENSION 10/31/2016 FADI YOUNG MD S Ot N18.3 CHRONIC KIDNEY DISEASE, STAGE 3 (MODERAT 10/31/2016 FADI YOUNG MD S Ot R80.9 PROTEINURIA, UNSPECIFIED 10/31/2016 LOR YOUNG MD Ot D64.9 ANEMIA, UNSPECIFIED 10/31/2016 LOR YOUNG MD Ot E10.9 TYPE 1 DIABETES MELLITUS WITHOUT COMPLIC 10/31/2016 KEVIN YOUNG MDINE Ot I95.89 OTHER HYPOTENSION 10/31/2016 LOR YOUNG MD Ot N18.3 CHRONIC KIDNEY DISEASE, STAGE 3 (MODERAT 10/31/2016 LOR YOUNG MD Ot R80.9 PROTEINURIA, UNSPECIFIED 10/31/2016 COREY NGUYEN MD Ot D63.1 ANEMIA IN CHRONIC KIDNEY DISEASE 10/31/2016 COREY NGUYEN MD Ot E10.21 TYPE 1 DIABETES MELLITUS WITH DIABETIC N 10/31/2016 COREY NGUYEN MD Ot K58.9 IRRITABLE BOWEL SYNDROME WITHOUT DIARRHE 10/31/2016 COREY NGUYEN MD, Ot N18.9 CHRONIC KIDNEY DISEASE, UNSPECIFIED 10/31/2016 COREY NGUYEN MD, Ot Z79.4 FPC (CURRENT) USE OF INSULIN 10/31/2016 COREY NGUYEN MD, Ot Z79.899 OTHER PARKING PATROLLER (CURRENT) DRUG THERAPY 10/31/2016 COREY NGUYEN MD, Ot Z87.891 PERSONAL HISTORY OF NICOTINE DEPENDENCE 11/22/2016 LOR YOUNG MD Ot D64.9 ANEMIA, UNSPECIFIED 11/22/2016 LOR YOUNG MD Ot 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 ADMINISTRATIVE PROCESSOR 11/22/2016 HANNAH CASTILLO LOR Ot I95.89 OTHER HYPOTENSION 11/22/2016 LOR YOUNG MD Ot N18.3 CHRONIC KIDNEY DISEASE, STAGE 3 (MODERAT 11/22/2016 LOR YOUNG MD Ot R80.9 PROTEINURIA, UNSPECIFIED 11/27/2016 LOR YOUNG MD Ot D64.9 ANEMIA, UNSPECIFIED 11/27/2016 LOR YOUNG MD Ot 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 ADMINISTRATIVE PROCESSOR 11/27/2016 KEVIN YOUNG MDINE Ot I95.89 OTHER HYPOTENSION 11/27/2016 LOR YOUNG [...] CHRONIC KIDNEY DISEASE, UNSPECIFIED 12/02/2016 COREY NGUYEN MD Ot Z79.4 FPC (CURRENT) USE OF INSULIN 12/02/2016 COREY NGUYEN MD Ot Z79.899 OTHER FPC (CURRENT) DRUG THERAPY 12/02/2016 COREY NGUYEN MD Ot Z87.891 PERSONAL HISTORY OF NICOTINE DEPENDENCE 12/06/2016 COREY NGUYEN MD Ot D63.1 ANEMIA IN CHRONIC KIDNEY DISEASE 12/06/2016 COREY NGUYEN MD Ot E10.21 TYPE 1 DIABETES MELLITUS WITH DIABETIC N 12/06/2016 COREY NGUYEN MD Ot K58.9 IRRITABLE BOWEL SYNDROME WITHOUT DIARRHE 12/06/2016 COREY NGUYEN MD, Ot N18.9 CHRONIC KIDNEY DISEASE, UNSPECIFIED 12/06/2016 COREY NGUYEN MD Ot Z79.4 FPC (CURRENT) USE OF INSULIN 12/06/2016 COREY NGUYEN MD Ot Z79.899 OTHER FPC (CURRENT) DRUG THERAPY 12/06/2016 COREY NGUYEN MD Ot Z87.891 PERSONAL HISTORY OF NICOTINE DEPENDENCE 12/08/2016 COREY NGUYEN MD Ot D63.1 ANEMIA IN CHRONIC KIDNEY DISEASE 12/08/2016 COREY NGUYEN MD Ot E10.21 TYPE 1 DIABETES MELLITUS WITH DIABETIC N 12/08/2016 COREY NGYUEN MD Ot K58.9 IRRITABLE BOWEL SYNDROME WITHOUT DIARRHE 12/08/2016 COREY NGUYEN MD Ot N18.9 CHRONIC KIDNEY DISEASE, UNSPECIFIED 12/08/2016 COREY NGUYEN MD Ot Z79.4 PARKING PATROLLER (CURRENT) USE OF INSULIN 12/08/2016 COREY NGUYEN MD Ot Z79.899 OTHER FPC (CURRENT) DRUG THERAPY 12/08/2016 COREY NGUYEN MD [...] UNSPECIFIED 01/17/2017 COREY NGUYEN MD Ot Z79.4 FPC (CURRENT) USE OF INSULIN 01/17/2017 COREY NGUYEN MD Ot Z79.899 OTHER FPC (CURRENT) DRUG THERAPY 01/17/2017 COREY NGUYEN MD [...] UNSPECIFIED 01/23/2017 COREY NGUYEN MD Ot Z79.4 PARKING PATROLLER (CURRENT) USE OF INSULIN 01/23/2017 COREY NGUYEN MD Ot Z79.899 OTHER FPC (CURRENT) DRUG THERAPY 01/23/2017 COREY NGUYEN MD [...] BOWEL SYNDROME WITHOUT DIARRHE 03/05/2017 COREY NGUYEN MD Ot N18.9 CHRONIC KIDNEY DISEASE, UNSPECIFIED 03/05/2017 COREY NGUYEN MD Ot Z79.4 FPC (CURRENT) USE OF INSULIN 03/05/2017 COREY NGUYEN MD Ot Z79.899 OTHER FPC (CURRENT) DRUG THERAPY 03/05/2017 COREY NGUYEN MD Ot Z87.891 PERSONAL HISTORY OF NICOTINE DEPENDENCE 03/21/2017 COREY NGUYEN MD Ot D63.1 ANEMIA IN CHRONIC KIDNEY DISEASE 03/21/2017 COREY NGUYEN MD Ot E10.21 TYPE 1 DIABETES MELLITUS WITH DIABETIC N 03/21/2017 COREY NGUYEN MD Ot K58.9 IRRITABLE BOWEL SYNDROME WITHOUT DIARRHE 03/21/2017 COREY NGUYEN MD Ot N18.9 CHRONIC KIDNEY DISEASE, UNSPECIFIED 03/21/2017 COREY NGUYEN MD Ot Z79.4 FPC (CURRENT) USE OF INSULIN 03/21/2017 COREY NGUYEN MD Ot Z79.899 OTHER PARKING PATROLLER (CURRENT) DRUG THERAPY 03/21/2017 COREY NGUYEN MD Ot Z87.891 PERSONAL HISTORY OF NICOTINE DEPENDENCE 04/08/2017 LOR YOUNG MD Ot D64.9 ANEMIA, UNSPECIFIED 04/08/2017 LOR YOUNG MD Ot E10.9 TYPE 1 DIABETES MELLITUS WITHOUT COMPLIC 04/08/2017 KEVIN YOUNG MDINE Ot I95.89 OTHER HYPOTENSION 04/08/2017 LOR YOUNG MD Ot N18.3 CHRONIC KIDNEY DISEASE, STAGE 3 (MODERAT 04/08/2017 LOR YOUNG MD Ot R80.9 PROTEINURIA, UNSPECIFIED 04/17/2017 COREY NGUYEN MD Ot D63.1 ANEMIA IN CHRONIC KIDNEY DISEASE 04/17/2017 COREY NGUYEN MD Ot E10.21 TYPE 1 DIABETES MELLITUS WITH DIABETIC N 04/17/2017 COREY NGUYEN MD Ot K58.9 IRRITABLE BOWEL SYNDROME WITHOUT DIARRHE 04/17/2017 COREY NGUYEN MD, Ot N18.3 CHRONIC KIDNEY DISEASE, STAGE 3 (MODERAT 04/17/2017 COREY NGUYEN MD, Ot Z79.4 PARKING PATROLLER (CURRENT) USE OF INSULIN 04/17/2017 COREY NGUYEN MD, Ot Z79.899 OTHER FPC (CURRENT) DRUG THERAPY 04/17/2017 COREY NGUYEN MD, Ot Z87.891 PERSONAL HISTORY OF NICOTINE DEPENDENCE 04/22/2017 LOR YOUNG MD Ot D64.9 ANEMIA, UNSPECIFIED 04/22/2017 LOR YOUNG MD Ot E10.9 TYPE 1 DIABETES MELLITUS WITHOUT COMPLIC 04/22/2017 KEVIN YOUNG MDINE Ot I95.89 OTHER HYPOTENSION 04/22/2017 OLR YOUNG MD Ot N18.3 CHRONIC KIDNEY DISEASE, STAGE 3 (MODERAT 04/22/2017 LOR YOUNG MD Ot R80.9 PROTEINURIA, UNSPECIFIED 04/29/2017 COREY NGUYEN MD Ot D63.1 ANEMIA IN CHRONIC KIDNEY DISEASE 04/29/2017 COREY NGUYEN MD Ot E10.21 TYPE 1 DIABETES MELLITUS WITH DIABETIC N 04/29/2017 COREY NGUYEN MD, Ot K58.9 IRRITABLE BOWEL SYNDROME WITHOUT DIARRHE 04/29/2017 COREY NGUYEN MD, Ot N18.3 CHRONIC KIDNEY DISEASE, STAGE 3 (MODERAT 04/29/2017 COREY NGUYEN MD Ot Z79.4 PARKING PATROLLER (CURRENT) USE OF INSULIN 04/29/2017 COREY NGUYEN MD Ot Z79.899 OTHER FPC (CURRENT) DRUG THERAPY 04/29/2017 COREY NGUYEN MD, Ot Z87.891 PERSONAL HISTORY OF NICOTINE DEPENDENCE 05/22/2017 BONIFACIO ZUÑIGAE R OD Ot E11.9 TYPE 2 DIABETES MELLITUS WITHOUT COMPLIC 05/22/2017 KANSEJALR, ALAYNA R OD Ot E11.9 TYPE 2 DIABETES MELLITUS WITHOUT COMPLIC 05/22/2017 KANSEJALR, ALAYNA R OD Ot E11.9 TYPE 2 DIABETES MELLITUS WITHOUT COMPLIC 05/22/2017 KANNARR, ALAYNA R OD Ot E11.9 TYPE 2 DIABETES MELLITUS WITHOUT COMPLIC 05/22/2017 KANSEJALR, ALAYNA R OD Ot E11.9 TYPE 2 DIABETES MELLITUS WITHOUT COMPLIC 06/13/2017 ZARA, ALAYNA R OD Ot E11.9 TYPE 2 DIABETES MELLITUS WITHOUT COMPLIC 2017 COREY NGUYEN MD, Ot D63.1 ANEMIA IN CHRONIC KIDNEY DISEASE 2017 COREY NGUYEN MD, Ot E10.21 TYPE 1 DIABETES MELLITUS WITH DIABETIC N 2017 CORYE NGUYEN MD, Ot K58.9 IRRITABLE BOWEL SYNDROME WITHOUT DIARRHE 2017 COREY NGUYEN MD, Ot N18.3 CHRONIC KIDNEY DISEASE, STAGE 3 (MODERAT 2017 COREY NGUYEN MD, Ot Z79.4 PARKING PATROLLER (CURRENT) USE OF INSULIN 2017 COREY NGUYEN MD, Ot Z79.899 OTHER [facility] (CURRENT) DRUG THERAPY 2017 COREY NGUYEN MD, Ot Z87.891 PERSONAL HISTORY OF NICOTINE DEPENDENCE 2017 LOR YOUNG MD Ot D64.9 ANEMIA, UNSPECIFIED 2017 LOR YOUNG MD Ot 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 ADMINISTRATIVE PROCESSOR 2017 LOR YOUNG MD Ot I95.1 ORTHOSTATIC HYPOTENSION 2017 LOR YOUNG MD Ot I95.89 OTHER HYPOTENSION 2017 LOR YOUNG MD Ot R80.9 PROTEINURIA, UNSPECIFIED 06/21/2017 BONIFACIO ZUÑIGAE R OD Ot E11.9 TYPE 2 DIABETES MELLITUS WITHOUT COMPLIC 06/21/2017 BONIFACIO ZUÑIGAE R OD Ot E11.9 TYPE 2 DIABETES MELLITUS WITHOUT COMPLIC 07/04/2017 COREY NGUYEN MD, Ot D63.1 ANEMIA IN CHRONIC KIDNEY DISEASE 07/04/2017 COREY NGUYEN MD Ot E10.21 TYPE 1 DIABETES MELLITUS WITH DIABETIC N 07/04/2017 COREY NGUYEN MD Ot K58.9 IRRITABLE BOWEL SYNDROME WITHOUT DIARRHE 07/04/2017 COREY NGUYEN MD Ot N18.3 CHRONIC KIDNEY DISEASE, STAGE 3 (MODERAT 07/04/2017 COREY NGUYEN MD Ot Z79.4 PARKING PATROLLER (CURRENT) USE OF INSULIN 07/04/2017 COREY NGUYEN MD Ot Z79.899 OTHER PARKING PATROLLER (CURRENT) DRUG THERAPY 07/04/2017 COREY NGUYEN MD, Ot Z87.891 PERSONAL HISTORY OF NICOTINE DEPENDENCE 07/24/2017 LOR YOUNG MD Ot D64.9 ANEMIA, UNSPECIFIED 07/24/2017 LOR YOUNG MD Ot 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 ADMINISTRATIVE PROCESSOR 07/24/2017 HANNAH CASTILLO LOR Ot I95.1 ORTHOSTATIC HYPOTENSION 07/24/2017 HANNAH CASTILLO LOR Ot I95.89 OTHER HYPOTENSION 07/24/2017 KEVIN YOUNG MDINE Ot R80.9 PROTEINURIA, UNSPECIFIED 08/05/2017 HANNAH CASTILLO LOR Ot D64.9 ANEMIA, UNSPECIFIED 08/05/2017 LOR YOUNG MD Ot 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 ADMINISTRATIVE PROCESSOR 08/05/2017 HANNAH CASTILLO LOR Ot I95.1 ORTHOSTATIC HYPOTENSION 08/05/2017 HANNAH CASTILLO LOR Ot I95.89 OTHER HYPOTENSION 08/05/2017 KEVIN YOUNG MDINE Ot R80.9 PROTEINURIA, UNSPECIFIED 08/05/2017 KEVIN YOUNG MDINE Ot D64.9 ANEMIA, UNSPECIFIED 08/05/2017 KEVIN YOUNG MDINE Ot 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 ADMINISTRATIVE PROCESSOR 08/05/2017 HANNAH CASTILLO LOR Ot I95.1 ORTHOSTATIC HYPOTENSION 08/05/2017 HANNAH CASTILLO LOR Ot I95.89 OTHER HYPOTENSION 08/05/2017 LOR YOUNG MD Ot R80.9 PROTEINURIA, UNSPECIFIED 08/16/2017 COREY NGUYEN MD Ot D63.1 ANEMIA IN CHRONIC KIDNEY DISEASE 08/16/2017 COREY NGUYEN MD Ot E10.21 TYPE 1 DIABETES MELLITUS WITH DIABETIC N 08/16/2017 COREY NGUYEN MD Ot K58.9 IRRITABLE BOWEL SYNDROME WITHOUT DIARRHE 08/16/2017 COREY NGUYEN MD Ot N18.3 CHRONIC KIDNEY DISEASE, STAGE 3 (MODERAT 08/16/2017 COREY NGUYEN MD Ot Z79.4 PARKING PATROLLER (CURRENT) USE OF INSULIN 08/16/2017 COREY NGUYEN MD Ot Z79.899 OTHER PARKING PATROLLER (CURRENT) DRUG THERAPY 08/16/2017 COREY NGUYEN MD Ot Z87.891 PERSONAL HISTORY OF NICOTINE DEPENDENCE 08/23/2017 COREY NGUYEN MD, Ot D63.1 ANEMIA IN CHRONIC KIDNEY DISEASE 08/23/2017 COREY NGUYEN MD Ot E10.21 TYPE 1 DIABETES MELLITUS WITH DIABETIC N 08/23/2017 COREY NGUYEN MD Ot K58.9 IRRITABLE BOWEL SYNDROME WITHOUT DIARRHE 08/23/2017 COREY NGUYEN MD Ot N18.3 CHRONIC KIDNEY DISEASE, STAGE 3 (MODERAT 08/23/2017 COREY NGUYEN MD Ot Z79.4 PARKING PATROLLER (CURRENT) USE OF INSULIN 08/23/2017 COREY NGUYEN MD Ot Z79.899 OTHER FPC (CURRENT) DRUG THERAPY 08/23/2017 COREY NGUYEN MD [...] (MODERAT 08/24/2017 COREY NGUYEN MD Ot Z79.4 PARKING PATROLLER (CURRENT) USE OF INSULIN 08/24/2017 COREY NGUYEN MD Ot Z79.899 OTHER FPC (CURRENT) DRUG THERAPY 08/24/2017 COREY NGUYEN MD Ot Z87.891 PERSONAL HISTORY OF NICOTINE DEPENDENCE 08/29/2017 COREY NGUYEN MD, Ot D63.1 ANEMIA IN CHRONIC KIDNEY DISEASE 08/29/2017 COREY NGUYEN MD Ot E10.21 TYPE 1 DIABETES MELLITUS WITH DIABETIC N 08/29/2017 COREY NGUYEN MD, Ot K58.9 IRRITABLE BOWEL SYNDROME WITHOUT DIARRHE 08/29/2017 COREY NGUYEN MD, Ot N18.3 CHRONIC KIDNEY DISEASE, STAGE 3 (MODERAT 08/29/2017 COREY NGUYEN MD Ot Z79.4 PARKING PATROLLER (CURRENT) USE OF INSULIN 08/29/2017 COREY NGUYEN MD Ot Z79.899 OTHER FPC (CURRENT) DRUG THERAPY 08/29/2017 COREY NGUYEN MD, Ot Z87.891 PERSONAL HISTORY OF NICOTINE DEPENDENCE 08/30/2017 COREY NGUYEN MD, Ot D63.1 ANEMIA IN CHRONIC KIDNEY DISEASE 08/30/2017 OCREY NGUYEN MD Ot E10.21 TYPE 1 DIABETES MELLITUS WITH DIABETIC N 08/30/2017 COREY NGUYEN MD, Ot K58.9 IRRITABLE BOWEL SYNDROME WITHOUT DIARRHE 08/30/2017 COREY NGUYEN MD, Ot N18.9 CHRONIC KIDNEY DISEASE, UNSPECIFIED 08/30/2017 COREY NGUYEN MD Ot Z79.4 FPC (CURRENT) USE OF INSULIN 08/30/2017 COREY NGUYEN MD, Ot Z79.899 OTHER FPC (CURRENT) DRUG THERAPY 08/30/2017 COREY NGUYEN MD, [...] 729.81 SWELLING OF LIMB 08/30/2017 CHEN MCCOY APRN Ot 611.72 LUMP OR MASS IN BREAST 08/30/2017 LOR YOUNG MD Ot D64.9 ANEMIA, UNSPECIFIED 08/30/2017 LOR YOUNG MD Ot 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 ADMINISTRATIVE PROCESSOR 08/30/2017 LOR YOUNG MD Ot I12.9 HYPERTENSIVE CHRONIC KIDNEY DISEASE W ST 08/30/2017 LOR YOUNG MD Ot N18.3 CHRONIC KIDNEY DISEASE, STAGE 3 (MODERAT 08/30/2017 LOR YOUNG MD Ot R80.9 PROTEINURIA, UNSPECIFIED 08/30/2017 LOR YOUNG MD Ot D64.9 ANEMIA, UNSPECIFIED 08/30/2017 HANNAH CASTILLO, LOR Ot 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 ADMINISTRATIVE PROCESSOR 08/30/2017 LOR YOUNG MD Ot I12.9 HYPERTENSIVE CHRONIC KIDNEY DISEASE W ST 08/30/2017 LOR YOUNG MD Ot N18.3 CHRONIC KIDNEY DISEASE, STAGE 3 (MODERAT 08/30/2017 LOR YOUNG MD Ot R80.9 PROTEINURIA, UNSPECIFIED 08/30/2017 FADI YOUNG MD S Ot D64.9 ANEMIA, UNSPECIFIED 08/30/2017 FADI YOUNG MD S Ot 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 ADMINISTRATIVE PROCESSOR 08/30/2017 HANNAH CASTILLO, FADI S Ot I95.89 OTHER HYPOTENSION 08/30/2017 HANNAH CASTILLO, FADI S Ot N18.3 CHRONIC KIDNEY DISEASE, STAGE 3 (MODERAT 08/30/2017 HANNAH CASTILLO, GONZALOMED S Ot R80.9 PROTEINURIA, UNSPECIFIED 08/30/2017 LOR YOUNG MD Ot D64.9 ANEMIA, UNSPECIFIED 08/30/2017 HANNAH CASTILLO, LOR Ot E10.9 TYPE 1 DIABETES MELLITUS WITHOUT COMPLIC 08/30/2017 LOR YOUNG MD Ot I95.89 OTHER HYPOTENSION 08/30/2017 LOR YOUNG MD Ot N18.3 CHRONIC KIDNEY DISEASE, STAGE 3 (MODERAT 08/30/2017 LOR YOUNG MD Ot R80.9 PROTEINURIA, UNSPECIFIED 08/30/2017 LOR YOUNG MD Ot D64.9 ANEMIA, UNSPECIFIED 08/30/2017 OLR YOUNG MD Ot 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 ADMINISTRATIVE PROCESSOR 08/30/2017 HANNAH CASTILLO LOR Ot I95.89 OTHER HYPOTENSION 08/30/2017 LOR YOUNG MD Ot N18.3 CHRONIC KIDNEY DISEASE, STAGE 3 (MODERAT 08/30/2017 KEVIN YOUNG MDINE Ot R80.9 PROTEINURIA, UNSPECIFIED 08/30/2017 FACUNDO CASTILLO FAC, ALI FACP CCDS Ot R06.02 SHORTNESS OF BREATH 08/30/2017 FACUNDO CASTILLO FACC, ALI FACP CCDS Ot R06.02 SHORTNESS OF BREATH 08/30/2017 LOR YOUNG MD Ot D64.9 ANEMIA, UNSPECIFIED 08/30/2017 LOR YOUNG MD Ot E10.9 TYPE 1 DIABETES MELLITUS WITHOUT COMPLIC 08/30/2017 HANNAH CASTILLO LOR Ot I95.89 OTHER HYPOTENSION 08/30/2017 LOR YOUNG MD Ot N18.3 CHRONIC KIDNEY DISEASE, STAGE 3 (MODERAT 08/30/2017 HANNAH CASTILLO LOR Ot R80.9 PROTEINURIA, UNSPECIFIED 08/30/2017 ALAYNA ZUÑIGA OD Ot E11.9 TYPE 2 DIABETES MELLITUS WITHOUT COMPLIC 08/30/2017 LOR YOUNG MD Ot D64.9 ANEMIA, UNSPECIFIED 08/30/2017 HANNAH CASTILLO LOR Ot 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 ADMINISTRATIVE PROCESSOR 08/30/2017 LOR YOUNG MD Ot I95.1 ORTHOSTATIC HYPOTENSION 08/30/2017 HANNAH CASTILLO LOR Ot I95.89 OTHER [...] CHRONIC KIDNEY DISEASE, STAGE 3 (MODERAT 08/30/2017 XUCOREY Anderson MD, Ot Z79.4 PARKING PATROLLER (CURRENT) USE OF INSULIN 08/30/2017 COREY NGUYEN MD Ot Z79.899 OTHER FPC (CURRENT) DRUG THERAPY 08/30/2017 COREY NGUYEN MD, Ot Z87.891 PERSONAL HISTORY OF NICOTINE DEPENDENCE 08/30/2017 LOR YOUNG MD Ot D64.9 ANEMIA, UNSPECIFIED 08/30/2017 LOR YOUNG MD Ot E10.9 TYPE 1 DIABETES MELLITUS WITHOUT COMPLIC 08/30/2017 LOR YOUNG MD Ot I95.1 ORTHOSTATIC [...] DISEASE, STAGE 3 (MODERAT 09/02/2017 COREY NGUYEN MD, Ot Z79.4 PARKING PATROLLER (CURRENT) USE OF INSULIN 09/02/2017 COREY NGUYEN MD Ot Z79.899 OTHER PARKING PATROLLER (CURRENT) DRUG THERAPY 09/02/2017 COREY NGUYEN MD, Ot Z87.891 PERSONAL HISTORY OF NICOTINE DEPENDENCE 09/06/2017 COREY NGUYEN MD, Ot D63.1 ANEMIA IN CHRONIC KIDNEY DISEASE 09/06/2017 COREY NGUYEN MD Ot E10.21 TYPE 1 DIABETES MELLITUS WITH DIABETIC N 09/06/2017 COREY NGUYEN MD Ot K58.9 IRRITABLE BOWEL SYNDROME WITHOUT DIARRHE 09/06/2017 COREY NGUYEN MD Ot N18.9 CHRONIC KIDNEY DISEASE, UNSPECIFIED 09/06/2017 COREY NGUYEN MD Ot Z79.4 PARKING PATROLLER (CURRENT) USE OF INSULIN 09/06/2017 COREY NGUYEN MD Ot Z79.899 OTHER FPC (CURRENT) DRUG THERAPY 09/06/2017 COREY NGUYEN MD Ot Z87.891 PERSONAL HISTORY OF NICOTINE DEPENDENCE 09/18/2017 HANNAH CASTILLO, LOR Ot D64.9 ANEMIA, UNSPECIFIED 09/18/2017 HANNAH CASTILLO, LOR Ot E10.9 TYPE 1 DIABETES MELLITUS WITHOUT COMPLIC 09/18/2017 HANNAH CASTILLO, LOR Ot I95.1 ORTHOSTATIC HYPOTENSION 09/18/2017 HANNAH CASTILLO, [...] (MODERAT 10/18/2017 COREY NGUYEN MD Ot Z79.4 PARKING PATROLLER (CURRENT) USE OF INSULIN 10/18/2017 COREY NGUYEN MD Ot Z79.899 OTHER FPC (CURRENT) DRUG THERAPY 10/18/2017 COREY NGUYEN MD Ot Z87.891 PERSONAL HISTORY OF NICOTINE DEPENDENCE 10/25/2017 COREY NGUYEN MD Ot D63.1 ANEMIA IN CHRONIC KIDNEY DISEASE 10/25/2017 COREY NGUYEN MD Ot E10.21 TYPE 1 DIABETES MELLITUS WITH DIABETIC N 10/25/2017 COREY NGUYEN MD Ot K58.9 IRRITABLE BOWEL SYNDROME WITHOUT DIARRHE 10/25/2017 COREY NGUYEN MD Ot N18.3 CHRONIC KIDNEY DISEASE, STAGE 3 (MODERAT 10/25/2017 COREY NGUYEN MD Ot Z79.4 PARKING PATROLLER (CURRENT) USE OF INSULIN 10/25/2017 COREY NGUYEN MD Ot Z79.899 OTHER FPC (CURRENT) DRUG THERAPY 10/25/2017 COREY NGUYEN MD Ot Z87.891 PERSONAL HISTORY OF NICOTINE DEPENDENCE 10/30/2017 COREY NGUYEN MD Ot D63.1 ANEMIA IN CHRONIC KIDNEY DISEASE 10/30/2017 COREY NGUYEN MD Ot E10.21 TYPE 1 DIABETES MELLITUS WITH DIABETIC N 10/30/2017 COREY NGUYEN MD Ot K58.9 IRRITABLE BOWEL SYNDROME WITHOUT DIARRHE 10/30/2017 COREY NGUYEN MD Ot N18.3 CHRONIC KIDNEY DISEASE, STAGE 3 (MODERAT 10/30/2017 COREY NGUYEN MD Ot Z79.4 PARKING PATROLLER (CURRENT) USE OF INSULIN 10/30/2017 COREY NGUYEN MD Ot Z79.899 OTHER PARKING PATROLLER (CURRENT) DRUG THERAPY 10/30/2017 COREY NGUYEN MD Ot Z87.891 PERSONAL HISTORY OF NICOTINE DEPENDENCE 10/30/2017 COREY NGUYEN MD Ot D63.1 ANEMIA IN CHRONIC KIDNEY DISEASE 10/30/2017 CORYE NGUYEN MD Ot E10.21 TYPE 1 DIABETES MELLITUS WITH DIABETIC N 10/30/2017 COREY NGUYEN MD Ot K58.9 IRRITABLE BOWEL SYNDROME WITHOUT DIARRHE 10/30/2017 COREY NGUYEN MD Ot N18.3 CHRONIC KIDNEY DISEASE, STAGE 3 (MODERAT 10/30/2017 COREY NGUYEN MD Ot Z79.4 FPC (CURRENT) USE OF INSULIN 10/30/2017 COREY NGUYEN MD Ot Z79.899 OTHER FPC (CURRENT) DRUG THERAPY 10/30/2017 COREY NGUYEN MD [...] (MODERAT 11/26/2017 COREY NGUYEN MD Ot Z79.4 PARKING PATROLLER (CURRENT) USE OF INSULIN 11/26/2017 COREY NGUYEN MD Ot Z79.899 OTHER PARKING PATROLLER (CURRENT) DRUG THERAPY 11/26/2017 COREY NGUYEN MD Ot Z87.891 PERSONAL HISTORY OF NICOTINE DEPENDENCE 01/17/2018 COREY NGUYEN MD Ot D63.1 ANEMIA IN CHRONIC KIDNEY DISEASE 01/17/2018 COREY NGUYEN MD Ot E10.21 TYPE 1 DIABETES MELLITUS WITH DIABETIC N 01/17/2018 COREY NGUYEN MD Ot K58.9 IRRITABLE BOWEL SYNDROME WITHOUT DIARRHE 01/17/2018 COREY NGUYEN MD, Ot N18.3 CHRONIC KIDNEY DISEASE, STAGE 3 (MODERAT 01/17/2018 COREY NGUYEN MD Ot Z79.4 FPC (CURRENT) USE OF INSULIN 01/17/2018 COREY NGUYEN MD Ot Z79.899 OTHER FPC (CURRENT) DRUG THERAPY 01/17/2018 COREY NGUYEN MD Ot Z87.891 PERSONAL HISTORY OF NICOTINE DEPENDENCE 02/24/2018 LOR YOUNG MD Ot D64.9 ANEMIA, UNSPECIFIED 02/24/2018 LOR YOUNG MD Ot E10.9 TYPE 1 DIABETES MELLITUS WITHOUT COMPLIC 02/24/2018 LOR YOUNG MD Ot E55.9 VITAMIN D DEFICIENCY, UNSPECIFIED 02/24/2018 HANNAH CASTILLO LOR Ot I95.1 ORTHOSTATIC HYPOTENSION 02/24/2018 HANNAH CASTILLO LOR Ot I95.89 OTHER HYPOTENSION 02/24/2018 LOR YOUNG MD Ot N18.3 CHRONIC KIDNEY DISEASE, STAGE 3 (MODERAT 02/24/2018 KEVIN YOUNG MDINE Ot R80.9 PROTEINURIA, UNSPECIFIED 03/05/2018 DARNELL MENDOZA MD Ot E10.8 TYPE 1 DIABETES MELLITUS WITH UNSPECIFIE 03/12/2018 DARNELL MENDOZA MD Ot E10.8 TYPE 1 DIABETES MELLITUS WITH UNSPECIFIE 03/14/2018 LOR YOUNG MD Ot D64.9 ANEMIA, UNSPECIFIED 03/14/2018 LOR YOUNG MD Ot E10.9 TYPE 1 DIABETES MELLITUS WITHOUT COMPLIC 03/14/2018 LOR YOUNG MD Ot E55.9 VITAMIN D DEFICIENCY, UNSPECIFIED 03/14/2018 HANNAH CASTILLO LOR Ot I95.1 ORTHOSTATIC HYPOTENSION 03/14/2018 HANNAH CASTILLO LOR Ot I95.89 OTHER HYPOTENSION 03/14/2018 LOR YOUNG MD Ot N18.3 CHRONIC KIDNEY DISEASE, STAGE 3 (MODERAT 03/14/2018 LOR YOUNG MD Ot R80.9 PROTEINURIA, UNSPECIFIED 03/18/2018 COREY NGUYEN MD Ot D63.1 ANEMIA IN CHRONIC KIDNEY DISEASE 03/18/2018 COREY NGUYEN MD Ot E10.21 TYPE 1 DIABETES MELLITUS WITH DIABETIC N 03/18/2018 COREY NGUYEN MD Ot K58.9 IRRITABLE BOWEL SYNDROME WITHOUT DIARRHE 03/18/2018 COREY NGUYEN MD Ot N18.3 CHRONIC KIDNEY DISEASE, STAGE 3 (MODERAT 03/18/2018 COREY NGUYEN MD Ot Z79.4 FPC (CURRENT) USE OF INSULIN 03/18/2018 COREY NGUYEN MD Ot Z79.899 OTHER PARKING PATROLLER (CURRENT) DRUG THERAPY 03/18/2018 COREY NGUYEN MD Ot Z87.891 PERSONAL HISTORY OF NICOTINE DEPENDENCE 03/19/2018 COREY NGUYEN MD Ot D63.1 ANEMIA IN CHRONIC KIDNEY DISEASE 03/19/2018 COREY NGUYEN MD Ot E10.21 TYPE 1 DIABETES MELLITUS WITH DIABETIC N 03/19/2018 COREY NGUYEN MD Ot K58.9 IRRITABLE BOWEL SYNDROME WITHOUT DIARRHE 03/19/2018 COREY NGUYEN MD, Ot N18.3 CHRONIC KIDNEY DISEASE, STAGE 3 (MODERAT 03/19/2018 COREY NGUYEN MD Ot Z79.4 FPC (CURRENT) USE OF INSULIN 03/19/2018 COREY NGUYEN MD Ot Z79.899 OTHER FPC (CURRENT) DRUG THERAPY 03/19/2018 COREY NGUYEN MD Ot Z87.891 PERSONAL HISTORY OF NICOTINE DEPENDENCE 03/21/2018 LOR YOUNG MD Ot D64.9 ANEMIA, UNSPECIFIED 03/21/2018 LOR YOUNG MD Ot E10.9 TYPE 1 DIABETES MELLITUS WITHOUT COMPLIC 03/21/2018 LOR YOUNG MD Ot E55.9 VITAMIN D DEFICIENCY, UNSPECIFIED 03/21/2018 LOR YOUNG MD Ot I95.1 ORTHOSTATIC HYPOTENSION 03/21/2018 KEVIN YOUNG MDINE Ot I95.89 OTHER HYPOTENSION 03/21/2018 HANNAH CASTILLO, LOR Ot N18.3 CHRONIC KIDNEY DISEASE, STAGE 3 (MODERAT 03/21/2018 HANNAH CASTILLO, LOR Ot R80.9 PROTEINURIA, UNSPECIFIED 03/28/2018 REJI CASTILLO, DARNELL Johnson Ot E10.8 TYPE 1 DIABETES MELLITUS WITH UNSPECIFIE 04/04/2018 COREY NGUYEN MD Ot D63.1 ANEMIA IN CHRONIC KIDNEY DISEASE 04/04/2018 COREY NGUYEN MD Ot E10.21 TYPE 1 DIABETES MELLITUS WITH DIABETIC N 04/04/2018 COREY NGUYEN MD, Ot K58.9 IRRITABLE BOWEL SYNDROME WITHOUT DIARRHE 04/04/2018 COREY NGUYEN MD, Ot N18.3 CHRONIC KIDNEY DISEASE, STAGE 3 (MODERAT 04/04/2018 COREY NGUYEN MD Ot Z79.4 PARKING PATROLLER (CURRENT) USE OF INSULIN 04/04/2018 COREY NGUYEN MD, Ot Z79.899 OTHER FPC (CURRENT) DRUG THERAPY 04/04/2018 COREY NGUYEN MD, Ot Z87.891 PERSONAL HISTORY OF NICOTINE DEPENDENCE 04/23/2018 DAYAN ORTEGA MD Ot H25.11 AGE-RELATED NUCLEAR CATARACT, RIGHT EYE 04/23/2018 DAYAN ORTEGA MD Ot Z01.818 ENCOUNTER FOR OTHER PREPROCEDURAL EXAMIN 04/25/2018 DAYAN ORTEGA MD Ot E10.9 TYPE 1 DIABETES MELLITUS WITHOUT COMPLIC 04/25/2018 DAYAN ORTEGA MD Ot H25.11 AGE-RELATED NUCLEAR CATARACT, RIGHT EYE 04/25/2018 DAYAN ORTEGA MD Ot Z79.899 OTHER PARKING PATROLLER (CURRENT) DRUG THERAPY 04/28/2018 DAYAN ORTEGA MD Ot E10.9 TYPE 1 DIABETES MELLITUS WITHOUT COMPLIC 04/28/2018 DAYAN ORTEGA MD Ot H25.11 AGE-RELATED NUCLEAR CATARACT, RIGHT EYE 04/28/2018 DAYAN ORTEGA MD Ot Z79.899 OTHER FPC (CURRENT) DRUG THERAPY 06/04/2018 DAYAN ORTEGA MD Ot Z01.818 ENCOUNTER FOR OTHER PREPROCEDURAL EXAMIN Procedures Code Description [place] [address] ROUTINE VENIPUNCTURE 04/08/2013 06950 MICRO ALBUMIN-IN HOUSE 04/08/2013 26733 CBC 04/08/2013 50471 CMP 04/08/2013 94944 LIPID PANEL 04/08/2013 9245883 GFR CALC (RESULT ONLY) 04/08/2013 42107 MICROALBUMIN 04/08/2013 39477 A1C (RML) 04/09/2013 52142 ROUTINE VENIPUNCTURE 07/20/2013 66434 CMP 07/20/2013 10864 LIPID PANEL 07/20/2013 30227 A1C (IN-HOUSE) 07/20/2013 95144 MICRO ALBUMIN-IN HOUSE 08/03/2013 71979 A1C (IN-HOUSE) 08/03/2013 36923 CULTURE URINE 08/05/2013 23045 ROUTINE VENIPUNCTURE 08/14/2013 94879 EKG, TRACING (IN-HOUSE) 08/14/2013 72103 MAGNESIUM 08/14/2013 88445 TSH 08/14/2013 01703 CULTURE URINE 08/15/2013 89781 STRESS TEST, CARDIAC ( SPECIFY TYPE) 08/26/2013 57652 ECHO 2D 08/26/2013 32994 VENOUS DOPPLER UNILATERAL/ LIMITED 10/28/2013 92278 OXIMETRY 10/28/2013 10553 ROUTINE VENIPUNCTURE 11/09/2013 54990 MICRO ALBUMIN-IN HOUSE 11/09/2013 20656 A1C (IN-HOUSE) 11/09/2013 16295 UA LONG DIP 11/09/2013 55413 CBC 11/09/2013 [id number] GFR CALC (RESULT ONLY) 11/09/2013 96255 CMP 11/09/2013 01898 LIPID PANEL 11/09/2013 30777 TSH 11/09/2013 61730 MICROALBUMIN 11/09/2013 04277 MICRO ALBUMIN-IN HOUSE 03/02/2014 98699 A1C (IN-HOUSE) 03/02/2014 26939 MICROALBUMIN 03/03/2014 48865 ROUTINE VENIPUNCTURE 03/23/2014 0929360 GFR CALC (RESULT ONLY) 03/23/2014 79967 CMP 03/23/2014 20679 IRON SERUM 03/23/2014 19961 IRON BNDNG CAP 03/23/2014 15118 CBC 03/23/2014 14745 FERRITIN 03/23/2014 53034 VIT B 12 03/23/2014 45724 FOLATE 03/23/2014 Patricia Cortés 03/24/2014 IRGROUP IRON GROUP (Iron,TIBC, Ferritin) 03/24/2014 66307 EKG, TRACING (IN-HOUSE) 04/28/2014 50428 ROUTINE VENIPUNCTURE 05/13/2014 75351 CBC 05/13/2014 30812 LIPID PANEL 05/13/2014 8604824 IMMATURE PLATELET FRACTION (RESULT ONLY) 05/13/2014 82548 RETICULOCYTE COUNT 05/13/2014 1986198 ANEM JIC 05/14/2014 [id number] HEMATOLOGY OTHER REPORT 05/14/2014 ANEMIAANA ANEMIA ANALYZER 05/18/2014 70646 ROUTINE VENIPUNCTURE 07/08/2014 40160 A1C (IN-HOUSE) 07/08/2014 18691 CBC 07/08/2014 97225 CMP 07/08/2014 8457880 GFR CALC (RESULT ONLY) 07/08/2014 64358 MICROALBUMIN 07/08/2014 14638 MAMMOGRAM DX, DIONNE 07/21/2014 63706 PAP SMEAR 07/21/2014 63975 OXIMETRY 07/21/2014 Medical O [facility] 07/21/2014 Q0091 PAP SMEAR OBTAIN SMEAR 07/21/2014 25958 MRI BREAST LEFT 08/02/2014 87558 ROUTINE VENIPUNCTURE 11/22/2014 97439 A1C (IN-HOUSE) 11/22/2014 91323 TEST, URINE (IN- HOUSE) 11/22/2014 61881 MICROALBUMIN 11/22/2014 5039022 GFR CALC (RESULT ONLY) 11/22/2014 38972 BMP 11/22/2014 23185 LIPID PANEL 11/22/2014 55785 OXIMETRY 02/15/2015 73457 A1C (IN-HOUSE) 03/16/2015 80397 MICROALBUMIN 03/17/2015 Results Test Result Range Automated [...] 30- 125 Urine protein/creatinine mass ratio 1.88 NRG Serum or plasma renal function panel [...] culture - 08/26/17 12:10 Bacterial urine culture [id number] NRG COLONY COUNT >100,000/ML NRG FTX;REPORTABLE PLUS, [...] NRG STATEMENT OF ADEQUACY: NRG INTERPRETATION/RESULT: NRG FLAG DECORATOR: [place] HPV mRNA E6/E7, SUREPATH VIAL Not Detected [...] 03/04/18 08:37 Vitamin B12 1929 pg/mL 200-1000 [id number] - 03/04/18 08:37 Serum tissue transglutaminase IgA antibody detection <20.0 0.0-19.9 Serum gliadin IgA antibody assay (units/volume) < % 0.0- 19.9 Gliadin IgG antibody assay < % 0.0-19.9 Serum or plasma IgA measurement (mass/volume) 144 % 71- 263 Gastric fluid parietal cell antibody detection by immunofluorescence - 08:37 Gastric parietal cell antibody titer < <1:20 ADRENAL ANTIBODY SCREEN T TITE - 03/04/18 08:37 [id number] NEGATIVE NRG Urine beta human chorionic gonadotropin (hCG) measurement - 04/25/18 06:42 Urine beta human chorionic gonadotropin (hCG) measurement NEGATIVE NEGATIVE Bacterial urine culture - 06/04/18 15:05 Bacterial urine culture RML NRG COLONY COUNT . NRG Encounters ACCT No. Visit Date/Time Discharge Status Pt. Type Provider Facility Loc./Unit Complaint [id number] 03/16/2015 15:58:00 03/16/2015 23:59:59 CLS Outpatient ALAN CARABALLO APRN [id number] 02/15/2015 15:37:00 02/15/2015 23:59:59 CLS Outpatient ALAN CARABALLO APRN S [id number] 11/22/2014 10:38:00 11/22/2014 23:59:59 CLS Outpatient ALAN CARABALLO APRN S [id number] 11/22/2014 10:38:00 11/22/2014 23:59:59 CLS Outpatient ANTONIO CARABALLO APRNA S [id number] 08/02/2014 15:15:00 08/02/2014 23:59:59 CLS Outpatient [id number] 07/21/2014 11:01:00 07/21/2014 23:59:59 CLS Outpatient CHEN MCCOY APRN [id number] 07/08/2014 11:50:00 07/08/2014 23:59:59 CLS Outpatient ANTONIO CARABALLO APRNA S [id number] 07/08/2014 11:50:00 07/08/2014 23:59:59 CLS Outpatient ANTONIO CARABALLO APRNA S [id number] 05/13/2014 11:35:00 05/13/2014 23:59:59 CLS Outpatient ANTONIO CARABALLO APRNA S [id number] 04/28/2014 08:39:00 04/28/2014 23:59:59 CLS Outpatient LORENA PIERSON DO [id number] 04/28/2014 08:39:00 04/28/2014 23:59:59 CLS Outpatient LORENA IPERSON DO [id number] 03/23/2014 08:40:00 03/23/2014 23:59:59 CLS Outpatient ALAN CARABALLO APRN [id number] 03/02/2014 14:51:00 03/02/2014 23:59:59 CLS Outpatient ALAN CARABALLO APRN [id number] 03/02/2014 14:51:00 03/02/2014 23:59:59 CLS Outpatient ALAN CARABALLO APRN [id number] 11/09/2013 10:26:00 11/09/2013 23:59:59 CLS Outpatient ALAN CARABALLO APRN S [id number] 11/09/2013 10:26:00 11/09/2013 23:59:59 CLS Outpatient ALAN CARABALLO APRN S [id number] 10/28/2013 09:30:00 10/28/2013 23:59:59 CLS Outpatient LORENA PIERSON DO [id number] 10/28/2013 09:30:00 10/28/2013 23:59:59 CLS Outpatient LORENA PIERSON DO [id number] 08/26/2013 10:49:00 08/26/2013 23:59:59 CLS Outpatient LORENA PIERSON DO [id number] 08/14/2013 12:12:00 08/14/2013 23:59:59 CLS Outpatient LORENA PIERSON DO [id number] 08/03/2013 10:51:00 08/03/2013 23:59:59 CLS Outpatient LORENA PIERSON DO [id number] 10/20/2012 00:00:00 10/20/2012 23:59:59 CLS Outpatient ALAN CARABALLO APRN [id number] 08/03/2013 10:51:00 Document Registration [id number] 07/20/2013 10:23:00 Document Registration [id number] 06/24/2013 10:11:00 Document Registration [id number] 04/08/2013 10:13:00 Document Registration [id number] 04/08/2013 10:13:00 Document Registration [id number] 06/04/2018 05:41:00 06/04/2018 13:17:00 DIS Outpatient DAYAN ORTEGA MD [facility] PREOP CATARACT LEFT EYE [id number] 04/25/2018 06:34:00 04/25/2018 08:00:00 DIS Outpatient DAYAN ORTEGA MD [facility] SDC CATARACT RIGHT EYE [id number] 04/23/2018 05:40:00 04/23/2018 11:13:00 DIS Outpatient DAYAN ORTEGA MD [facility] PREOP CATARACT RIGHT EYE [id number] 03/12/2018 13:21:00 03/18/2018 00:01:00 DIS Outpatient COREY NGUYEN MD [facility] ONC [id number] 03/04/2018 08:10:00 03/04/2018 23:59:59 CLS Outpatient DARNELL MENDOZA MD [facility] LAB E10.8 E10.65 [id number] 02/21/2018 11:18:00 02/21/2018 23:59:59 CLS Outpatient LOR YOUNG MD [facility] LAB N18.3,R80.9,E10.9, D64.9 [id number] 11/20/2017 14:55:00 11/26/2017 00:01:00 DIS Outpatient COREY NGUYEN MD [facility] ONC [id number] 08/26/2017 11:40:00 08/26/2017 23:59:59 CLS Outpatient LOR YOUNG MD [facility] LAB N18.3 R80.9 E10.9 I95.1 [id number] 07/31/2017 11:29:00 08/24/2017 00:01:00 DIS Outpatient COREY NGUYEN MD [facility] ONC [id number] 06/05/2017 12:46:00 2017 00:01:00 DIS Outpatient COREY NGUYEN MD [facility] ONC [id number] 06/17/2017 12:31:00 06/17/2017 23:59:59 CLS Outpatient LOR YOUNG MD [facility] LAB N18.3 R80.9 [id number] 05/22/2017 12:43:00 05/22/2017 23:59:59 CLS Outpatient ALAYNA ZUÑIGA OD [facility] LAB [id number] 02/27/2017 13:33:00 03/05/2017 00:01:00 DIS Outpatient COREY NGUYEN MD [facility] ONC [id number] 02/27/2017 13:39:00 02/27/2017 23:59:59 CLS Outpatient LOR YOUNG MD [facility] LAB [id number] 01/22/2017 11:06:00 01/22/2017 23:59:59 CLS Outpatient FACUNDO CASTILLO FACC, ALI FACP CCDS [facility] CARD SOB [id number] 01/14/2017 11:33:00 01/14/2017 23:59:59 CLS Outpatient FACUNDO CASTILLO FAC, ALI FACP CCDS [facility] CARD SOB [id number] 11/22/2016 12:54:00 12/02/2016 00:01:00 DIS Outpatient COREY NGUYEN MD [facility] ONC [id number] 10/31/2016 12:38:00 10/31/2016 23:59:59 CLS Outpatient LOR YOUNG MD [facility] LAB N18.3,R80.9,E10.9, D64.9,I95.89 [id number] 08/15/2016 13:17:00 08/27/2016 10:12:00 DIS Outpatient COREY NGUYEN MD [facility] ONC [id number] 08/15/2016 13:19:00 08/15/2016 23:59:59 CLS Outpatient LOR YOUNG MD [facility] LAB [id number] 08/03/2016 12:14:00 08/03/2016 23:59:59 CLS Outpatient FADI YOUNG MD [facility] LAB CHRONIC KIDNEY DISEASE,PROTEINURIA,ANEMIA [id number] 06/13/2016 11:26:00 06/19/2016 00:01:00 DIS Outpatient COREY NGUYEN MD [facility] ONC [id number] 04/27/2016 14:33:00 04/27/2016 23:59:59 CLS Outpatient LOR YOUNG MD [facility] LAB CKD STAGE III, PROTEINURIA, DM W/O COMPLICATION [id number] 02/29/2016 13:09:00 03/06/2016 00:01:00 DIS Outpatient CORYE NGUYEN MD [facility] ONC [id number] 01/30/2016 11:12:00 01/30/2016 23:59:59 CLS Outpatient LOR YOUNG MD [facility] RAD CHRONIC KIDNEY DISEASE [id number] 01/19/2016 11:02:00 01/19/2016 12:24:00 DIS Outpatient SAMANTHA DEE [facility] REHAB R HIP TROCHANTERIC BURSITIS [id number] 11/15/2015 13:57:00 11/28/2015 00:01:00 DIS Outpatient COREY NGUYEN MD [facility] ONC [id number] 08/24/2015 13:29:00 08/24/2015 00:01:00 DIS Outpatient COREY NGUYEN MD [facility] ONC [id number] 05/26/2015 14:25:00 05/31/2015 00:01:00 DIS Outpatient COREY NGUYEN MD [facility] ONC [id number] 09/01/2014 13:20:00 11/01/2014 00:01:00 DIS Outpatient COREY NGUYEN MD [facility] ONC [id number] 09/13/2014 10:44:00 09/13/2014 12:25:00 DIS Emergency ROLANDA MENDES [facility] ER LEFT THUMB LAC [id number] 07/28/2014 07:59:00 07/28/2014 23:59:59 CLS Outpatient CHEN MCCOY APRN [facility] RAD LEFT BREAST LUMP [id number] 03/17/2014 20:41:00 03/17/2014 22:37:00 DIS Emergency TIESHA MCKEON APRN [facility] ER HEADACHE [id number] 11/02/2013 14:30:00 11/02/2013 23:59:59 CLS Outpatient FACUNDO CASTILLO FACC, ALI FACP CCDS [facility] RAD RT LEG SWELLING [id number] 09/17/2013 10:46:00 09/18/2013 11:45:00 DIS Inpatient FACUNDO CASTILLO FACC, ALI FACP CCDS [facility] CSD CP [id number] 09/17/2013 07:25:00 09/17/2013 23:59:59 CLS Outpatient FACUNDO CASTILLO FACC, ALI FACP CCDS [facility] RAD CHEST DISCOMFORT, POSTURAL SYNCOPE [id number] 09/15/2013 08:49:00 09/15/2013 23:59:59 CLS Outpatient FACUNDO CASTILLO FACC, ALI FACP CCDS [facility] CARD CHEST DISCOMFORT, POSTURAL SYNCOPE [id number] 07/14/2013 18:32:00 07/14/2013 23:59:59 CLS Outpatient [id number] 05/28/2013 19:45:00 05/28/2013 20:28:00 DIS Emergency TIFFANY CASTILLO, JOANNE Gutierrez [facility] ER HYPOGLYCEMIA [id number] 06/06/2018 10:30:00 PEN Preadmit DAYAN ORTEGA MD [facility] CATARACT LEFT EYE [id number] 06/04/2018 14:41:00 ACT Outpatient FADI TYLER MD [facility] LAB [id number] 06/04/2018 14:36:00 ACT Outpatient COREY NGUYEN MD [facility] ONC [id number] 10/06/2012 19:47:00 Document Registration [id number] 05/29/2012 14:40:00 Document Registration [id number] 08/05/2011 22:38:00 Document Registration [id number] 05/25/2011 01:24:00 Document Registration [id number] 12/17/2010 05:54:00 Document Registration [id number] 06/07/2010 13:04:00 Document Registration [id number] 05/29/2010 18:44:00 Document Registration [id number] 06/04/2018 08:45:00 ACT Outpatient ALAN CARABALLO APRN [facility] [id number] 12/25/2017 14:20:00 Document Registration [id number] 08/07/2016 08:06:00 Document Registration
[2018-06-06] MEDS ORDERED: fentaNYL INJECTION 100 MCG/2 ML AMP ONE (09:33)
--- NOTE | 2018-06-06 09:42 | Ophthalmologist Pre-Op Note ---
Pre-Operative Progress Note H&P Reviewed The H&P was reviewed, patient examined and no changes noted. Date H&P Reviewed: Jun 06, 2018 Time H&P Reviewed: 09:42 Pre-Op Dx Cataract, Left Eye DAYAN ORTEGA MD Jun 06, 2018 09:42
--- NOTE | 2018-06-06 10:04 | Ophthalmology Operative Report ---
Cataract removal/placement IOL PREOPERATIVE DIAGNOSIS: Cataract Left Eye POSTOPERATIVE DIAGNOSIS: Cataract Left Eye PROCEDURE: Cataract removal and placement of posterior chamber implant, left eye SURGEON: Sami Ortega ANESTHESIA: Topical with sedation COMPLICATIONS: None ESTIMATED BLOOD LOSS: Minimal DESCRIPTION OF PROCEDURE: After proper informed consent was obtained, the patient, a 37 female, was taken to the Operating Room and the left eye was anesthetized with tetracaine. The left eye was then prepped and draped in the usual manner. A wire lid speculum was placed. A paracentesis was made at the left hand position. Preservative free lidocaine was injected into the anterior chamber followed by viscoelastic. A clear corneal incision was made in the temporal position. A capsulorrhexis was preformed and the central nuclear and cortical material were removed. The posterior capsule was polished and an Fabiano 25.0 [id number] IOL was placed into the capsular bag. The residual viscoelastic was aspirated and balanced saline solution was injected into the anterior chamber. Vancomycin was injected into the anterior chamber. The wound was checked and found to be water tight. The patient tolerated the procedure well without complications. SAMI ORTEGA MD Jun 06, 2018 10:04
[2018-06-06 10:15] VITALS: BP 172/87
--- NOTE | 2018-06-06 12:25 | Anesthesia-General Post-Op ---
MAC Patient Condition Mental Status/LOC: Same as Preop Cardiovascular: Satisfactory Nausea/Vomiting: Absent Respiratory: Satisfactory Pain: Controlled Complications: Absent Post Op Complications Complications None Follow Up Care/Instructions Patient Instructions None needed. Anesthesiology Discharge Order Discharge Order Patient is doing well, no complaints, stable vital signs, no apparent adverse anesthesia problems. No complications reported per nursing. JULISSA DRAKE CRNA Jun 06, 2018 12:25
== END 2018-06-06 10:15 | disposition home or self-care (01) ==
LOC: SDC 09:00
PROVIDERS: ATTEND Specialist
DX: E10.36 Type 1 diabetes mellitus with diabetic cataract (principal); E10.22 Type 1 diabetes mellitus with diabetic chronic kidney disease; N18.3 Chronic kidney disease, stage 3 (moderate); R80.9 Proteinuria, unspecified; D64.9 Anemia, unspecified; I95.89 Other hypotension; I95.1 Orthostatic hypotension; E55.9 Vitamin D deficiency, unspecified; R56.9 Unspecified convulsions; Z79.4 Long term (current) use of insulin; Z79.899 Other long term (current) drug therapy
CPT/HCPCS: 36415; 80069; 81000; 82306; 82570; 83970; 84156; 84703; 85025; 87077; 87088; 87186

== ENCOUNTER 2018-06-24 13:04 | Outpatient (RCR) | payer MEDICARE, MEDICAID ==
[2018-04-03 08:07] LABS: BASOPHILS # (AUTO) 0.1 10^3/uL (0.0-0.1); BASOPHILS % (AUTO) 1 % (0-10); EOSINOPHILS # (AUTO) 0.4 10^3/uL (0.0-0.3); EOSINOPHILS % (AUTO) 5 % (0-10); HEMATOCRIT 32 % (35-52); HEMOGLOBIN 10.7 G/DL (11.5-16.0); LYMPHOCYTES # (AUTO) 3.6 X 10^3 (1.0-4.0); LYMPHOCYTES % (AUTO) 42 % (12-44); MEAN CORPUSCULAR HEMOGLOBIN 30 PG (25-34); MEAN CORPUSCULAR HGB CONC 33 G/DL (32-36); MEAN CORPUSCULAR VOLUME 90 FL (80-99); MONOCYTES # (AUTO) 0.5 X 10^3 (0.0-1.0); MONOCYTES % (AUTO) 6 % (0-12); NEUTROPHILS # (AUTO) 3.9 X 10^3 (1.8-7.8); NEUTROPHILS % (AUTO) 47 % (42-75); PLATELET COUNT 181 10^3/uL (130-400); RED BLOOD COUNT 3.56 10^6/uL (4.35-5.85); RED CELL DISTRIBUTION WIDTH 13.9 % (10.0-14.5); WHITE BLOOD COUNT 8.5 10^3/uL (4.3-11.0)
[2018-04-23 15:15] LABS: BASOPHILS # (AUTO) 0.1 10^3/uL (0.0-0.1); BASOPHILS % (AUTO) 1 % (0-10); EOSINOPHILS # (AUTO) 0.4 10^3/uL (0.0-0.3); EOSINOPHILS % (AUTO) 5 % (0-10); HEMATOCRIT 33 % (35-52); HEMOGLOBIN 11.1 G/DL (11.5-16.0); LYMPHOCYTES # (AUTO) 3.1 X 10^3 (1.0-4.0); LYMPHOCYTES % (AUTO) 37 % (12-44); MEAN CORPUSCULAR HEMOGLOBIN 31 PG (25-34); MEAN CORPUSCULAR HGB CONC 33 G/DL (32-36); MEAN CORPUSCULAR VOLUME 92 FL (80-99); MEAN PLATELET VOLUME 11.1 FL (7.4-10.4); MONOCYTES # (AUTO) 0.5 X 10^3 (0.0-1.0); MONOCYTES % (AUTO) 7 % (0-12); NEUTROPHILS # (AUTO) 4.2 X 10^3 (1.8-7.8); NEUTROPHILS % (AUTO) 51 % (42-75); PLATELET COUNT 194 10^3/uL (130-400); RED BLOOD COUNT 3.62 10^6/uL (4.35-5.85); RED CELL DISTRIBUTION WIDTH 14.6 % (10.0-14.5); WHITE BLOOD COUNT 8.3 10^3/uL (4.3-11.0)
[2018-05-14 16:42] LABS: BASOPHILS % (AUTO) 1 % (0-10); EOSINOPHILS # (AUTO) 0.3 10^3/uL (0.0-0.3); EOSINOPHILS % (AUTO) 5 % (0-10); HEMATOCRIT 30 % (35-52); HEMOGLOBIN 10.2 G/DL (11.5-16.0); LYMPHOCYTES # (AUTO) 2.3 X 10^3 (1.0-4.0); LYMPHOCYTES % (AUTO) 30 % (12-44); MEAN CORPUSCULAR HEMOGLOBIN 31 PG (25-34); MEAN CORPUSCULAR HGB CONC 35 G/DL (32-36); MEAN CORPUSCULAR VOLUME 88 FL (80-99); MEAN PLATELET VOLUME 11.5 FL (7.4-10.4); MONOCYTES # (AUTO) 0.3 X 10^3 (0.0-1.0); MONOCYTES % (AUTO) 4 % (0-12); NEUTROPHILS # (AUTO) 4.6 X 10^3 (1.8-7.8); NEUTROPHILS % (AUTO) 61 % (42-75); PLATELET COUNT 182 10^3/uL (130-400); RED BLOOD COUNT 3.34 10^6/uL (4.35-5.85); RED CELL DISTRIBUTION WIDTH 13.1 % (10.0-14.5); WHITE BLOOD COUNT 7.6 10^3/uL (4.3-11.0)
[~2018-06-24 13:04] MED LIST changes: +DARBEPOETIN 40 MCG/ML (ARANESP) 1 ML VIAL SC SCH
[2018-06-24 13:19] LABS: BASOPHILS # (AUTO) 0.1 10^3/uL (0.0-0.1); BASOPHILS % (AUTO) 1 % (0-10); EOSINOPHILS # (AUTO) 0.2 10^3/uL (0.0-0.3); EOSINOPHILS % (AUTO) 3 % (0-10); HEMATOCRIT 34 % (35-52); HEMOGLOBIN 11.1 G/DL (11.5-16.0); LYMPHOCYTES # (AUTO) 1.8 X 10^3 (1.0-4.0); LYMPHOCYTES % (AUTO) 28 % (12-44); MEAN CORPUSCULAR HEMOGLOBIN 31 PG (25-34); MEAN CORPUSCULAR HGB CONC 33 G/DL (32-36); MEAN CORPUSCULAR VOLUME 93 FL (80-99); MEAN PLATELET VOLUME 10.7 FL (7.4-10.4); MONOCYTES # (AUTO) 0.4 X 10^3 (0.0-1.0); MONOCYTES % (AUTO) 5 % (0-12); NEUTROPHILS # (AUTO) 4.2 X 10^3 (1.8-7.8); NEUTROPHILS % (AUTO) 63 % (42-75); PLATELET COUNT 197 10^3/uL (130-400); RED BLOOD COUNT 3.63 10^6/uL (4.35-5.85); RED CELL DISTRIBUTION WIDTH 14.6 % (10.0-14.5); WHITE BLOOD COUNT 6.7 10^3/uL (4.3-11.0)
[2018-06-24 13:37] LABS: ALBUMIN 3.6 GM/DL (3.2-4.5); BILIRUBIN,TOTAL 0.3 MG/DL (0.1-1.0); CALCIUM 8.8 MG/DL (8.5-10.1); CREATININE SERUM 2.57 MG/DL (0.60-1.30); POTASSIUM 4.3 MMOL/L (3.6-5.0); TOTAL PROTEIN 6.7 GM/DL (6.4-8.2)
== END 2018-07-02 | disposition home or self-care (01) ==
LOC: ONC 13:04
PROVIDERS: ATTEND Internal Medicine Hematology & Oncology
DX: N18.3 Chronic kidney disease, stage 3 (moderate) (principal); D63.1 Anemia in chronic kidney disease; E10.21 Type 1 diabetes mellitus with diabetic nephropathy; K58.9 Irritable bowel syndrome, unspecified; Z87.891 Personal history of nicotine dependence; Z79.899 Other long term (current) drug therapy; Z79.4 Long term (current) use of insulin
CPT/HCPCS: 36415; 80053; 85025; 96372; 99213

== ENCOUNTER 2018-08-05 13:36 | Outpatient (RCR) | payer MEDICARE, MEDICAID ==
[2018-07-15 14:50] LABS: HEMOGLOBIN 10.1 G/DL (11.5-16.0); RED BLOOD COUNT 3.35 10^6/uL (4.35-5.85); WHITE BLOOD COUNT 8.3 10^3/uL (4.3-11.0)
[2018-07-15 14:51] LABS: BASOPHILS % (AUTO) 1 % (0-10); EOSINOPHILS # (AUTO) 0.3 10^3/uL (0.0-0.3); EOSINOPHILS % (AUTO) 4 % (0-10); HEMATOCRIT 30 % (35-52); LYMPHOCYTES # (AUTO) 2.6 X 10^3 (1.0-4.0); LYMPHOCYTES % (AUTO) 31 % (12-44); MEAN CORPUSCULAR HEMOGLOBIN 30 PG (25-34); MEAN CORPUSCULAR HGB CONC 33 G/DL (32-36); MEAN CORPUSCULAR VOLUME 90 FL (80-99); MEAN PLATELET VOLUME 11.4 FL (7.4-10.4); MONOCYTES # (AUTO) 0.5 X 10^3 (0.0-1.0); MONOCYTES % (AUTO) 6 % (0-12); NEUTROPHILS # (AUTO) 4.9 X 10^3 (1.8-7.8); NEUTROPHILS % (AUTO) 60 % (42-75); PLATELET COUNT 201 10^3/uL (130-400); RED CELL DISTRIBUTION WIDTH 13.5 % (10.0-14.5)
[~2018-08-05 13:36] MED LIST changes: +DARBEPOETIN 40 MCG/ML (ARANESP) 1 ML VIAL SC SCH
[2018-08-05 13:51] LABS: BASOPHILS % (AUTO) 1 % (0-10); EOSINOPHILS # (AUTO) 0.2 10^3/uL (0.0-0.3); EOSINOPHILS % (AUTO) 3 % (0-10); HEMATOCRIT 31 % (35-52); HEMOGLOBIN 10.5 G/DL (11.5-16.0); LYMPHOCYTES # (AUTO) 2.5 X 10^3 (1.0-4.0); LYMPHOCYTES % (AUTO) 41 % (12-44); MEAN CORPUSCULAR HEMOGLOBIN 31 PG (25-34); MEAN CORPUSCULAR HGB CONC 34 G/DL (32-36); MEAN CORPUSCULAR VOLUME 92 FL (80-99); MEAN PLATELET VOLUME 10.8 FL (7.4-10.4); MONOCYTES # (AUTO) 0.4 X 10^3 (0.0-1.0); MONOCYTES % (AUTO) 6 % (0-12); NEUTROPHILS # (AUTO) 3.1 X 10^3 (1.8-7.8); NEUTROPHILS % (AUTO) 50 % (42-75); PLATELET COUNT 219 10^3/uL (130-400); RED BLOOD COUNT 3.37 10^6/uL (4.35-5.85); RED CELL DISTRIBUTION WIDTH 13.8 % (10.0-14.5); WHITE BLOOD COUNT 6.2 10^3/uL (4.3-11.0)
[2018-08-26 14:36] LABS: BASOPHILS # (AUTO) 0.1 10^3/uL (0.0-0.1); BASOPHILS % (AUTO) 1 % (0-10); EOSINOPHILS # (AUTO) 0.3 10^3/uL (0.0-0.3); EOSINOPHILS % (AUTO) 4 % (0-10); HEMATOCRIT 29 % (35-52); HEMOGLOBIN 9.9 G/DL (11.5-16.0); LYMPHOCYTES # (AUTO) 2.8 X 10^3 (1.0-4.0); LYMPHOCYTES % (AUTO) 36 % (12-44); MEAN CORPUSCULAR HEMOGLOBIN 32 PG (25-34); MEAN CORPUSCULAR HGB CONC 34 G/DL (32-36); MEAN CORPUSCULAR VOLUME 93 FL (80-99); MEAN PLATELET VOLUME 10.6 FL (7.4-10.4); MONOCYTES # (AUTO) 0.5 X 10^3 (0.0-1.0); MONOCYTES % (AUTO) 6 % (0-12); NEUTROPHILS # (AUTO) 4.2 X 10^3 (1.8-7.8); NEUTROPHILS % (AUTO) 54 % (42-75); PLATELET COUNT 156 10^3/uL (130-400); RED BLOOD COUNT 3.12 10^6/uL (4.35-5.85); RED CELL DISTRIBUTION WIDTH 13.1 % (10.0-14.5); WHITE BLOOD COUNT 7.9 10^3/uL (4.3-11.0)
== END 2018-08-26 13:59 | disposition home or self-care (01) ==
LOC: ONC 13:36
PROVIDERS: ATTEND Internal Medicine Hematology & Oncology
DX: N18.3 Chronic kidney disease, stage 3 (moderate) (principal); D63.1 Anemia in chronic kidney disease; E10.21 Type 1 diabetes mellitus with diabetic nephropathy; K58.9 Irritable bowel syndrome, unspecified; Z87.891 Personal history of nicotine dependence; Z79.899 Other long term (current) drug therapy; Z79.4 Long term (current) use of insulin
CPT/HCPCS: 36415; 85025; 96372

== ENCOUNTER → 2018-08-05 | Outpatient (CLI) | payer MEDICARE, MEDICAID ==
[~2018-08-05] MED LIST changes: -DARBEPOETIN 40 MCG/ML (ARANESP) 1 ML VIAL SC SCH; -ROPI0.25 PO; +ROPI0.253 PO
[2018-08-05 13:55] LABS: RED CELL DISTRIBUTION WIDTH 13.8 % (10.0-14.5)
[2018-08-05 13:56] LABS: HEMOGLOBIN 10.5 G/DL (11.5-16.0); MEAN PLATELET VOLUME 10.8 FL (7.4-10.4); RED BLOOD COUNT 3.37 10^6/uL (4.35-5.85); WHITE BLOOD COUNT 6.2 10^3/uL (4.3-11.0)
[2018-08-05 14:23] LABS: ALBUMIN 3.9 GM/DL (3.2-4.5); CALCIUM 9.2 MG/DL (8.5-10.1); CREATININE SERUM 2.62 MG/DL (0.60-1.30); PHOSPHORUS 2.9 MG/DL (2.3-4.7); POTASSIUM 4.6 MMOL/L (3.6-5.0); URIC ACID 6.4 MG/DL (2.6-7.2)
== END ==
LOC: LAB 13:40
PROVIDERS: ATTEND Internal Medicine Nephrology
DX: N18.3 Chronic kidney disease, stage 3 (moderate) (principal); R80.9 Proteinuria, unspecified; E10.22 Type 1 diabetes mellitus with diabetic chronic kidney disease; I95.89 Other hypotension; E55.9 Vitamin D deficiency, unspecified; I95.1 Orthostatic hypotension
CPT/HCPCS: 36415; 80069; 82306; 82570; 83970; 84156; 84550; 85027

== ENCOUNTER → 2018-10-07 | Outpatient (CLI) | payer MEDICARE, MEDICAID ==
[~2018-10-07] MED LIST changes: -DARBEPOETIN 40 MCG/ML (ARANESP) 1 ML VIAL SC SCH
== END ==
LOC: LAB 13:45
PROVIDERS: ATTEND Internal Medicine Endocrinology, Diabetes & Metabolism
DX: E10.65 Type 1 diabetes mellitus with hyperglycemia (principal)
CPT/HCPCS: 82784; 83516; 86255

== ENCOUNTER 2018-10-29 15:20 | Outpatient (RCR) | payer MEDICARE, MEDICAID ==
[2018-09-16 15:07] LABS: BASOPHILS % (AUTO) 1 % (0-10); EOSINOPHILS # (AUTO) 0.2 10^3/uL (0.0-0.3); EOSINOPHILS % (AUTO) 3 % (0-10); HEMATOCRIT 30 % (35-52); HEMOGLOBIN 9.6 G/DL (11.5-16.0); LYMPHOCYTES # (AUTO) 2.5 X 10^3 (1.0-4.0); LYMPHOCYTES % (AUTO) 39 % (12-44); MEAN CORPUSCULAR HEMOGLOBIN 30 PG (25-34); MEAN CORPUSCULAR HGB CONC 32 G/DL (32-36); MEAN CORPUSCULAR VOLUME 94 FL (80-99); MEAN PLATELET VOLUME 10.8 FL (7.4-10.4); MONOCYTES # (AUTO) 0.4 X 10^3 (0.0-1.0); MONOCYTES % (AUTO) 7 % (0-12); NEUTROPHILS # (AUTO) 3.2 X 10^3 (1.8-7.8); NEUTROPHILS % (AUTO) 51 % (42-75); PLATELET COUNT 207 10^3/uL (130-400); RED BLOOD COUNT 3.16 10^6/uL (4.35-5.85); RED CELL DISTRIBUTION WIDTH 12.9 % (10.0-14.5); WHITE BLOOD COUNT 6.4 10^3/uL (4.3-11.0)
[2018-10-07 14:15] LABS: BASOPHILS % (AUTO) 1 % (0-10); EOSINOPHILS # (AUTO) 0.3 10^3/uL (0.0-0.3); EOSINOPHILS % (AUTO) 5 % (0-10); HEMATOCRIT 28 % (35-52); HEMOGLOBIN 9.1 G/DL (11.5-16.0); LYMPHOCYTES # (AUTO) 1.9 X 10^3 (1.0-4.0); LYMPHOCYTES % (AUTO) 31 % (12-44); MEAN CORPUSCULAR HEMOGLOBIN 31 PG (25-34); MEAN CORPUSCULAR HGB CONC 32 G/DL (32-36); MEAN CORPUSCULAR VOLUME 95 FL (80-99); MEAN PLATELET VOLUME 10.1 FL (7.4-10.4); MONOCYTES # (AUTO) 0.5 X 10^3 (0.0-1.0); MONOCYTES % (AUTO) 7 % (0-12); NEUTROPHILS # (AUTO) 3.5 X 10^3 (1.8-7.8); NEUTROPHILS % (AUTO) 57 % (42-75); PLATELET COUNT 117 10^3/uL (130-400); RED BLOOD COUNT 2.96 10^6/uL (4.35-5.85); RED CELL DISTRIBUTION WIDTH 13.2 % (10.0-14.5); WHITE BLOOD COUNT 6.2 10^3/uL (4.3-11.0)
[~2018-10-29 15:20] MED LIST changes: +DARBEPOETIN 40 MCG/ML (ARANESP) 1 ML VIAL SC SCH
[2018-10-29 15:59] LABS: BASOPHILS % (AUTO) 1 % (0-10); EOSINOPHILS # (AUTO) 0.3 10^3/uL (0.0-0.3); EOSINOPHILS % (AUTO) 4 % (0-10); HEMATOCRIT 25 % (35-52); LYMPHOCYTES # (AUTO) 1.9 X 10^3 (1.0-4.0); LYMPHOCYTES % (AUTO) 31 % (12-44); MEAN CORPUSCULAR HEMOGLOBIN 31 PG (25-34); MEAN CORPUSCULAR HGB CONC 32 G/DL (32-36); MEAN CORPUSCULAR VOLUME 96 FL (80-99); MEAN PLATELET VOLUME 11.7 FL (7.4-10.4); MONOCYTES # (AUTO) 0.3 X 10^3 (0.0-1.0); MONOCYTES % (AUTO) 5 % (0-12); NEUTROPHILS # (AUTO) 3.6 X 10^3 (1.8-7.8); NEUTROPHILS % (AUTO) 59 % (42-75); PLATELET COUNT 128 10^3/uL (130-400); RED BLOOD COUNT 2.58 10^6/uL (4.35-5.85); RED CELL DISTRIBUTION WIDTH 13.1 % (10.0-14.5); WHITE BLOOD COUNT 6.1 10^3/uL (4.3-11.0)
[2018-10-29] MEDS ORDERED: DARBEPOETIN 40 MCG/ML (ARANESP) 1 ML VIAL SC SCH (16:15)
== END 2018-11-24 | disposition home or self-care (01) ==
LOC: ONC 15:20
PROVIDERS: ATTEND Internal Medicine Hematology & Oncology
DX: N18.3 Chronic kidney disease, stage 3 (moderate) (principal); D63.1 Anemia in chronic kidney disease; E10.21 Type 1 diabetes mellitus with diabetic nephropathy; K58.9 Irritable bowel syndrome, unspecified; Z87.891 Personal history of nicotine dependence; Z79.899 Other long term (current) drug therapy; Z79.4 Long term (current) use of insulin
CPT/HCPCS: 36415; 85025; 96372; 99213

== ENCOUNTER → 2018-10-29 | Outpatient (CLI) | payer MEDICARE, MEDICAID ==
[2018-10-29 16:00] LABS: BILIRUBIN,URINE NEGATIVE (NEGATIVE); CLARITY,URINE CLEAR; COLOR,URINE YELLOW; GLUCOSE, URINE (UA) NEGATIVE (NEGATIVE); KETONES,URINE NEGATIVE (NEGATIVE); LEUKOCYTE ESTERASE ,URINE 1+ (NEGATIVE); NITRITE,URINE NEGATIVE (NEGATIVE); PH,URINE 7 (5-9); PROTEIN,URINE 4+ (NEGATIVE); UROBILINOGEN,URINE NORMAL (NORMAL)
[2018-10-29 16:02] LABS: RED BLOOD COUNT 2.58 10^6/uL (4.35-5.85); WHITE BLOOD COUNT 6.1 10^3/uL (4.3-11.0)
[2018-10-29 16:03] LABS: MEAN PLATELET VOLUME 11.7 FL (7.4-10.4); RED CELL DISTRIBUTION WIDTH 13.1 % (10.0-14.5)
[2018-10-29 16:15] LABS: BACTERIA,URINE FEW /HPF; SQUAMOUS EPITHELIAL CELL,UR >50 /HPF; WBC,URINE 25-50 /HPF
[2018-10-29 16:21] LABS: ALBUMIN 3.5 GM/DL (3.2-4.5); CALCIUM 8.4 MG/DL (8.5-10.1); CREATININE SERUM 3.19 MG/DL (0.60-1.30); PHOSPHORUS 3.6 MG/DL (2.3-4.7); POTASSIUM 4.5 MMOL/L (3.6-5.0)
== END ==
LOC: LAB 15:27
PROVIDERS: ATTEND Internal Medicine Nephrology
DX: D64.9 Anemia, unspecified (principal); N18.3 Chronic kidney disease, stage 3 (moderate); R80.9 Proteinuria, unspecified; E10.9 Type 1 diabetes mellitus without complications; I95.89 Other hypotension; I95.1 Orthostatic hypotension; E55.9 Vitamin D deficiency, unspecified; N39.0 Urinary tract infection, site not specified
CPT/HCPCS: 36415; 80069; 81000; 82306; 82570; 82728; 83540; 83970; 84156; 87077; 87088

== ENCOUNTER → 2018-11-11 | Outpatient (CLI) | payer MEDICARE, MEDICAID ==
[~2018-11-11] MED LIST changes: -DARBEPOETIN 40 MCG/ML (ARANESP) 1 ML VIAL SC SCH
--- NOTE | 2018-11-11 13:36 | Diagnostic Imaging Report ---
PROCEDURE: US right lower extremity venous. TECHNIQUE: Multiple real-time grayscale images were obtained over the right lower extremity in various projections. Additional spectral analysis and color Doppler duplex images were also obtained. INDICATION: Right leg swelling. FINDINGS: There is no evidence of a right lower extremity DVT. Right lower extremity deep venous system shows normal compressibility with normal response to augmentation and Valsalva. No fluid collection or mass is seen. IMPRESSION: No evidence of right lower extremity DVT. Dictated by: Dictated on workstation # [id number]
== END ==
LOC: RAD 12:16
PROVIDERS: ATTEND Nurse Practitioner Family
DX: I73.9 Peripheral vascular disease, unspecified (principal); E10.9 Type 1 diabetes mellitus without complications; I95.1 Orthostatic hypotension; M79.89 Other specified soft tissue disorders
CPT/HCPCS: 93923

== ENCOUNTER → 2018-12-18 | Outpatient (CLI) | payer MEDICARE, MEDICAID ==
[~2018-12-18] MED LIST changes: +CATHETER FLUSH 10 ML SYR IV PRN
--- NOTE | 2018-12-18 14:32 | Diagnostic Imaging Report ---
CLINICAL INDICATION: Patient with irritable bowel syndrome. COMPARISON: None. PROCEDURE: The patient was administered 4.75 millicuries of technetium-99m Choletec. After 60 minutes of the images, one can of Ensure was drunk followed by another 60 minutes of imaging. A nuclear medicine hepatobiliary scan with ejection fraction was performed. FINDINGS: There is prompt uptake and excretion of radiotracer by the liver. Activity is visible in the gallbladder by 15 minutes and the small bowel by 30 minutes. Ejection fraction of the gallbladder is calculated at 77% (normal >33%). The gallbladder visibly empties on the scans following the ingestion of Ensure. IMPRESSION: Normal hepatobiliary scan with normal gallbladder ejection fraction. Dictated by: Dictated on workstation # [id number]
== END ==
LOC: CARD 09:53
PROVIDERS: ATTEND Nurse Practitioner Community Health
DX: K58.0 Irritable bowel syndrome with diarrhea (principal)
CPT/HCPCS: 78227

== ENCOUNTER → 2019-01-07 | Outpatient (CLI) | payer MEDICARE, MEDICAID ==
[~2019-01-07] MED LIST changes: -CATHETER FLUSH 10 ML SYR IV PRN
[2019-01-07 11:10] LABS: BASOPHILS # (AUTO) 0.1 10^3/uL (0.0-0.1); BASOPHILS % (AUTO) 1 % (0-10); EOSINOPHILS # (AUTO) 0.3 10^3/uL (0.0-0.3); EOSINOPHILS % (AUTO) 4 % (0-10); HEMATOCRIT 28 % (35-52); HEMOGLOBIN 9.1 G/DL (11.5-16.0); LYMPHOCYTES # (AUTO) 2.3 X 10^3 (1.0-4.0); LYMPHOCYTES % (AUTO) 31 % (12-44); MEAN CORPUSCULAR HEMOGLOBIN 32 PG (25-34); MEAN CORPUSCULAR HGB CONC 33 G/DL (32-36); MEAN CORPUSCULAR VOLUME 97 FL (80-99); MEAN PLATELET VOLUME 10.7 FL (7.4-10.4); MONOCYTES # (AUTO) 0.5 X 10^3 (0.0-1.0); MONOCYTES % (AUTO) 7 % (0-12); NEUTROPHILS # (AUTO) 4.3 X 10^3 (1.8-7.8); NEUTROPHILS % (AUTO) 59 % (42-75); PLATELET COUNT 143 10^3/uL (130-400); WHITE BLOOD COUNT 7.4 10^3/uL (4.3-11.0)
[2019-01-07 11:38] LABS: CALCIUM 8.4 MG/DL (8.5-10.1); CREATININE SERUM 3.51 MG/DL (0.60-1.30); PHOSPHORUS 4.6 MG/DL (2.3-4.7); POTASSIUM 4.4 MMOL/L (3.6-5.0); URIC ACID 5.8 MG/DL (2.6-7.2)
== END ==
LOC: LAB 10:40
PROVIDERS: ATTEND Internal Medicine Nephrology
DX: E10.22 Type 1 diabetes mellitus with diabetic chronic kidney disease (principal); N18.3 Chronic kidney disease, stage 3 (moderate); R80.9 Proteinuria, unspecified; D64.9 Anemia, unspecified; I95.89 Other hypotension; I95.1 Orthostatic hypotension; E55.9 Vitamin D deficiency, unspecified; N39.0 Urinary tract infection, site not specified
CPT/HCPCS: 36415; 80069; 82570; 83883; 84155; 84156; 84165; 84550; 85025; 86021; 86038; 86160; 86334

== ENCOUNTER → 2019-01-16 | Outpatient (CLI) | payer MEDICARE, MEDICAID ==
--- NOTE | 2019-01-16 07:52 | Diagnostic Imaging Report ---
PROCEDURE: US Gallbladder. TECHNIQUE: Multiple real-time grayscale images were obtained over the right upper quadrant in various projections. INDICATION: Epigastric pain. FINDINGS: Liver parenchyma is homogeneous with normal echotexture. Gallbladder is clear with no stones or wall thickening. The common duct is not dilated. Portal vein is patent with hepatopetal flow. Pancreas is obscured by bowel gas. Right kidney measured 8.6 cm in length and appears normal. There is no ascites. IMPRESSION: Negative gallbladder sonogram. Dictated by: Dictated on workstation # [id number]
== END ==
LOC: RAD 06:50
PROVIDERS: ATTEND Surgery
DX: R10.13 Epigastric pain (principal); R11.0 Nausea; R19.7 Diarrhea, unspecified
CPT/HCPCS: 76705

== ENCOUNTER 2019-01-19 13:45 | Outpatient (RCR) | payer MEDICARE, MEDICAID | END 2019-01-19 16:29 | disposition home or self-care (01) | PROVIDERS: ATTEND Nurse Practitioner Community Health | DX: M25.511 Pain in right shoulder (principal) ==

== ENCOUNTER → 2019-01-21 | Outpatient (CLI) | payer MEDICARE, MEDICAID ==
[~2019-01-21] MED LIST changes: +HYDR-3923 PO
[2019-01-21 12:45] LABS: ALBUMIN 3.3 GM/DL (3.2-4.5); CALCIUM 9.8 MG/DL (8.5-10.1); CREATININE SERUM 4.08 MG/DL (0.60-1.30); PHOSPHORUS 4.6 MG/DL (2.3-4.7)
== END ==
LOC: LAB 12:09
PROVIDERS: ATTEND Internal Medicine Nephrology
DX: N18.3 Chronic kidney disease, stage 3 (moderate) (principal); E10.22 Type 1 diabetes mellitus with diabetic chronic kidney disease; R80.9 Proteinuria, unspecified; D64.9 Anemia, unspecified; I95.89 Other hypotension; I95.1 Orthostatic hypotension; E55.9 Vitamin D deficiency, unspecified; N39.0 Urinary tract infection, site not specified
CPT/HCPCS: 36415; 80069

== ENCOUNTER 2019-01-23 17:11 | Emergency (ER) | payer MEDICARE, MEDICAID ==
[~2019-01-23] VITALS: Ht 157.5 cm; Wt 58.1 kg
[~2019-01-23 17:11] MED LIST changes: -HYDR-3923 PO
[2019-01-23] MEDS ORDERED: hydrALAZINE (APESOLINE) 20 MG/ML VIAL IV ONE (18:00)
--- NOTE | 2019-01-23 18:17 | ED Cardiac General ---
History of Present Illness General Chief Complaint: Cardiac/General Problems Stated Complaint: BLOOD PRESSURE HIGH Nursing Triage Note: PT STATES HAS HTN, PT STATES WAS GOING TO ADMIT HERE FOR HTN BUT WANTS TO BE HERE IN HER HOME TOWN. STATES B/P WAS 250/180. PT IS AN IDDM AND HAS A PUMP Source: patient, family Exam Limitations: no limitations (LIBBY GODOY MD) History of Present Illness Date Seen by Provider: Jan 23, 2019 Time Seen by Provider: 18:13 Initial Comments This 38-year-old white female presents with history of uncontrolled hypertension. The patient was seen at today and declined admission for treatment of same. The patient relates that she has had marked hypertension for the last several weeks secondary to her progressive renal disease. Patient is a type I diabetic. The patient has had headaches but no other symptoms potentially related to her hypertension. (LIBBY GODOY MD) Allergies and Home Medications Allergies Coded Allergies: Ghxxale-Xrc-Egv Reductase Inhibitor (Verified Allergy, Severe, ANAPHYLAXIS , 03/18/12) difficulty breathing, BLE swelling lisinopril (Verified Allergy, Severe, ANAPHYLAXIS, 03/18/12) difficulty breathing, swelling of extremities gabapentin (Verified Allergy, Unknown, 04/23/18) losartan (Verified Allergy, Unknown, 04/23/18) midazolam (Verified Allergy, Unknown, HIVES, 06/06/18) niacin (Verified Allergy, Unknown, 04/23/18) Home Medications Butalbital/Aspirin/Caffeine 1 Each Capsule, 1 EACH PO Q4H PRN for MIGRAINE, ( Reported) Cholecalciferol (Vitamin D3) 400 Unit Tablet, 400 UNIT PO DAILY, (Reported) Citalopram Hydrobromide 20 Mg Tablet, 20 MG PO DAILY, (Reported) Darbepoetin Benjie in Polysorbat 40 Mcg/0.4 Ml Syringe, 40 MCG IJ every 3 weeks PRN for hgb less than 11, (Reported) Dicyclomine HCl 20 Mg Tablet, 20 MG PO QID PRN for STOMACH UPSET, (Reported) Ferrous Sulfate 325 Mg Tablet.dr, 325 MG PO DAILY, (Reported) Fludrocortisone Acetate 0.1 Mg Tab, 0.5 MG PO DAILY, (Reported) Norgestimate-Ethinyl Estradiol 1 Each Tablet, 1 EACH PO DAILY, (Reported) Ondansetron 4 Mg Tab.rapdis, 4 MG SL Q4H PRN for NAUSEA/VOMITING-1ST LINE, ( Reported) Xgd181/FA/Omega3/Dha/Fish Oil 1 Each Tab.chew, 1 EACH PO BID, (Reported) Rizatriptan Benzoate 10 Mg Tab.rapdis, 10 MG PO UD, (Reported) take at onset of migraine Ropinirole HCl 0.25 Mg Tablet, 0.25 MG PO HS, (Reported) Sodium Bicarbonate 650 Mg Tablet, 650 MG PO BID, (Reported) Topiramate 25 Mg Tablet, 25 MG PO BID, (Reported) Tramadol HCl 50 Mg Tablet, 50 MG PO BID, (Reported) Patient Home Medication List Home Medication List Reviewed: Yes (LIBBY GODOY MD) Review of Systems Review of Systems Constitutional: No chills, No fever EENTM: No Double Vision; Other (headache) Respiratory: Denies Cough, Denies Shortness of Air Cardiovascular: Denies Chest Pain Gastrointestinal: Denies Abdominal Pain Genitourinary: Denies Burning Musculoskeletal: No back pain Skin: No rash Psychiatric/Neurological: No Symptoms Reported Endocrine: No Symptoms Reported Hematologic/Lymphatic: No Symptoms Reported (LIBBY GODOY MD) Past Nicllks-Gezlvc-Tpmynl Hx Past Med/Social Hx: Reviewed Nursing Past Med/Soc Hx (LIBBY GODOY MD) Patient Social History Alcohol Use: Denies Use Recreational Drug Use: No Smoking Status: Never a Smoker Recent Foreign Travel: No Contact w/Someone Who Travel: No Recent Infectious Disease Expo: No (LIBBY GODOY MD) Immunizations Up To Date Tetanus Booster (TDap): Less than 5yrs (LIBBY GODOY MD) Seasonal Allergies Seasonal Allergies: No (LIBBY GODOY MD) Past Medical History Tubal Ligation Reproductive Disorders: No 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 0.0oz. 58.409777ml; 25.1 BMI Method:Stated General Appearance: No Apparent Distress, WD/WN HEENT: Normal ENT Inspection Neck: Normal Inspection Respiratory: Lungs Clear Cardiovascular: Regular Rate, Rhythm Gastrointestinal: Normal Bowel Sounds Extremity: Normal Inspection Neurologic/Psychiatric: Oriented x3, No Motor/Sensory Deficits Skin: Normal Color, Warm/Dry (LIBBY GODOY MD) Progress/Results/Core Measures Results/Orders Lab Results Laboratory Tests Test 01/23/19 18:10 01/23/19 18:28 Range/Units White Blood Count 8.8 4.3-11.0 10^3/uL Red Blood Count 2.69 L 4.35-5.85 10^6/uL Hemoglobin 8.7 L 11.5-16.0 G/DL Hematocrit 26 L 35-52 % Mean Corpuscular Volume 97 80-99 FL Mean Corpuscular Hemoglobin 32 25-34 PG Mean Corpuscular Hemoglobin Concent 34 32-36 G/DL Red Cell Distribution Width 14.3 10.0-14.5 % Platelet Count 194 130-400 10^3/uL Mean Platelet Volume 10.3 7.4-10.4 FL Neutrophils (%) (Auto) 55 42-75 % Lymphocytes (%) (Auto) 32 12-44 % Monocytes (%) (Auto) 8 0-12 % Eosinophils (%) (Auto) 5 0-10 % Basophils (%) (Auto) 1 0-10 % Neutrophils # (Auto) 4.8 1.8-7.8 X 10^3 Lymphocytes # (Auto) 2.8 1.0-4.0 X 10^3 Monocytes # (Auto) 0.7 0.0-1.0 X 10^3 Eosinophils # (Auto) 0.4 H 0.0-0.3 10^3/uL Basophils # (Auto) 0.1 0.0-0.1 10^3/uL Sodium Level 139 135-145 MMOL/L Potassium Level 4.4 3.6-5.0 MMOL/L Chloride Level 101 98-107 MMOL/L Carbon Dioxide Level 27 21-32 MMOL/L Anion Gap 11 5-14 MMOL/L Blood Urea Nitrogen 72 H 7-18 MG/DL Creatinine 4.01 H 0.60-1.30 MG/DL Estimat Glomerular Filtration Rate 13 BUN/Creatinine Ratio 18 Glucose Level 140 H 70-105 MG/DL Calcium Level 9.7 8.5-10.1 MG/DL Corrected Calcium 10.0 8.5-10.1 MG/DL Total Bilirubin 0.2 0.1-1.0 MG/DL Aspartate Amino Transf (AST/SGOT) 16 5-34 U/L Alanine Aminotransferase (ALT/SGPT) 8 0-55 U/L Alkaline Phosphatase 45 40-136 U/L Total Protein 6.8 6.4-8.2 GM/DL Albumin 3.6 3.2-4.5 GM/DL Urine Color YELLOW Urine Clarity CLEAR Urine pH 7 5-9 Urine Specific [place] 1.010 L 1.016-1.022 Urine Protein 3+ H NEGATIVE Urine Glucose (UA) 2+ H NEGATIVE Urine Ketones NEGATIVE NEGATIVE Urine Nitrite NEGATIVE NEGATIVE Urine Bilirubin NEGATIVE NEGATIVE Urine Urobilinogen NORMAL NORMAL MG/DL Urine Leukocyte Esterase NEGATIVE NEGATIVE Urine RBC (Auto) 1+ H NEGATIVE Urine RBC RARE /HPF Urine WBC RARE /HPF Urine Squamous Epithelial Cells RARE /HPF Urine Crystals NONE /LPF Urine Bacteria NEGATIVE /HPF Urine Casts NONE /LPF Urine Mucus NEGATIVE /LPF Urine Culture Indicated NO (LUI VILLAFANA) Medications Given in ED Current Medications Medications Dose Ordered Sig/Iza Route Start Time Stop Time Status Last Admin Dose Admin Hydralazine HCl 10 mg ONCE ONCE IV 01/23/19 18:00 01/23/19 18:01 DC 01/23/19 18:14 10 MG (LUI VILLAFANA) Vital Signs/I&O 01/23/19 17:25 Temp 97.5 Pulse 80 Resp 18 B/P (MAP) 164/94 (117) Pulse Ox 100 (LUI VILLAFANA) Blood Pressure Mean: 117 Progress Progress Note : Time: 18:16 Progress Note I gave the patient [address] Villafana was kind enough to accept the patient at change of shifts. (LIBBY GODOY MD) Progress Note #1: Progress Note Assume care of the patient at shift change. I agree with the history and physical as documented above the Dr. Godoy. We will attempt for blood pressure with some IV hydralazine. She has an appointment with her supervisor electronics testing in 2 days on Saturday. We can try and get her to that with some by mouth hydralazine to control her blood pressure. She is currently asymptomatic except for a mild headache for which she usually uses Fioricet historically for. She's declining any Tylenol at this time. Progress Note #2: Time: 19:16 Progress Note Blood pressure went down 164/88. She is comfortable has no headache or any symptoms. Written and allow her to go home on some hydralazine and follow-up with a supervisor electronics testing in 2 days. She is okay with the plan. Since prescription [facility] to cover her through the weekend and then she can follow up with nephrology. (LUI VILLAFANA) Diagnostic Imaging Diagonstic Imaging: Xray Plain Films/CT/US/NM/MRI: chest (1v) Comments NAME: [facility] REC#: [id number] PHYSICIAN: LIBBY GODOY MD CC: ALEYDA AVILA MD; LIBBY GODOY MD Page 1 of 1 RADIOLOGY REPORT [facility] [place], [place] CC: ALEYDA AVILA MD; LIBBY GODOY MD Page 1 of 1 RADIOLOGY REPORT NAME: [facility] PAT[facility] REC#: [id number] PT STATUS: REG ER : 1980 PHYSICIAN: LIBBY GODOY MD ADMIT DATE: 01/23/19/ER Signed Date of Exam: 01/23/19 CHEST 1 VIEW, AP/PA ONLY INDICATION: Hypertension. FINDINGS: The heart size, mediastinal configuration, and pulmonary vascularity are within normal limits. There is no pleural effusion, pneumothorax, or pneumonia. The osseous structures are unremarkable. IMPRESSION: No acute cardiopulmonary abnormality. Dictated by: Dictated on workstation # [id number] Dict: 01/23/191836 Trans: 01/23/191857 Interpreted by: ALEYDA AVILA MD Electronically signed by: ALEYDA AVILA MD 01/23/191857 Reviewed: Reviewed by Me (LUI VILLAFANA) Departure Impression Primary Impression: Asymptomatic hypertensive urgency Disposition: HOME, SELF-CARE Condition: Improved Departure-Patient Inst. Decision time for Depature: 19:17 (LUI VILLAFANA) Referrals: [facility] (PCP) Primary Care Physician ALAN CARABALLO (Family) Primary Care Physician Patient Instructions: High Blood Pressure (DC) Add. Discharge Instructions: Take the hydralazine 1 tablet 4 times a day until you see the supervisor electronics testing on Saturday. All discharge instructions reviewed with patient and/or family. Voiced understanding. Scripts Hydralazine HCl (Hydralazine HCl) 25 Mg Tablet 25 MG PO QID for 7 Days, #28 TAB 0 Refills Prov: LUI VILLAFANA 01/23/19 LIBBY GODOY MD Jan 23, 2019 18:17 LUI VILLAFANA Jan 23, 2019 18:24
[2019-01-23 18:21] LABS: BASOPHILS # (AUTO) 0.1 10^3/uL (0.0-0.1); BASOPHILS % (AUTO) 1 % (0-10); EOSINOPHILS # (AUTO) 0.4 10^3/uL (0.0-0.3); EOSINOPHILS % (AUTO) 5 % (0-10); HEMATOCRIT 26 % (35-52); HEMOGLOBIN 8.7 G/DL (11.5-16.0); LYMPHOCYTES # (AUTO) 2.8 X 10^3 (1.0-4.0); LYMPHOCYTES % (AUTO) 32 % (12-44); MEAN CORPUSCULAR HEMOGLOBIN 32 PG (25-34); MEAN CORPUSCULAR HGB CONC 34 G/DL (32-36); MEAN CORPUSCULAR VOLUME 97 FL (80-99); MEAN PLATELET VOLUME 10.3 FL (7.4-10.4); MONOCYTES # (AUTO) 0.7 X 10^3 (0.0-1.0); MONOCYTES % (AUTO) 8 % (0-12); NEUTROPHILS # (AUTO) 4.8 X 10^3 (1.8-7.8); NEUTROPHILS % (AUTO) 55 % (42-75); PLATELET COUNT 194 10^3/uL (130-400); RED CELL DISTRIBUTION WIDTH 14.3 % (10.0-14.5); WHITE BLOOD COUNT 8.8 10^3/uL (4.3-11.0)
[2019-01-23 18:32] LABS: BILIRUBIN,URINE NEGATIVE (NEGATIVE); CLARITY,URINE CLEAR; COLOR,URINE YELLOW; GLUCOSE, URINE (UA) 2+ (NEGATIVE); KETONES,URINE NEGATIVE (NEGATIVE); LEUKOCYTE ESTERASE ,URINE NEGATIVE (NEGATIVE); NITRITE,URINE NEGATIVE (NEGATIVE); PH,URINE 7 (5-9); PROTEIN,URINE 3+ (NEGATIVE); UROBILINOGEN,URINE NORMAL (NORMAL)
[2019-01-23 18:39] LABS: BACTERIA,URINE NEGATIVE /HPF; RBC,URINE RARE /HPF; SQUAMOUS EPITHELIAL CELL,UR RARE /HPF; WBC,URINE RARE /HPF
[2019-01-23 18:40] LABS: ALBUMIN 3.6 GM/DL (3.2-4.5); BILIRUBIN,TOTAL 0.2 MG/DL (0.1-1.0); CALCIUM 9.7 MG/DL (8.5-10.1); CREATININE SERUM 4.01 MG/DL (0.60-1.30); POTASSIUM 4.4 MMOL/L (3.6-5.0); TOTAL PROTEIN 6.8 GM/DL (6.4-8.2)
--- NOTE | 2019-01-23 18:41 | Diagnostic Imaging Report ---
INDICATION: Hypertension. FINDINGS: The heart size, mediastinal configuration, and pulmonary vascularity are within normal limits. There is no pleural effusion, pneumothorax, or pneumonia. The osseous structures are unremarkable. IMPRESSION: No acute cardiopulmonary abnormality. Dictated by: Dictated on workstation # [id number]
[2019-01-23] MEDS ORDERED: HYDR-3923 PO (19:19)
[2019-01-23] MEDS ORDERED: RX-CLOnidine 0.1 MG TAB PPK# 6 PO STA (19:20)
[2019-01-23 19:27] VITALS: BP 181/84
== END 2019-01-23 19:27 | disposition home or self-care (01) ==
LOC: EDUNIT# 17:11 → ER 17:12
DX: I16.0 Hypertensive urgency (principal); E11.9 Type 2 diabetes mellitus without complications; K58.9 Irritable bowel syndrome, unspecified; F32.9 Major depressive disorder, single episode, unspecified; Z88.8 Allergy status to other drugs, medicaments and biological substances; Z79.51 Long term (current) use of inhaled steroids; Z98.51 Tubal ligation status; Z87.448 Personal history of other diseases of urinary system
CPT/HCPCS: 36415; 71045; 80053; 81000; 85025; 93005

== ENCOUNTER → 2019-02-09 | Outpatient (CLI) | payer MEDICARE, MEDICAID ==
[~2019-02-09] MED LIST changes: +HYDR-3923 PO
== END | disposition home or self-care (01) ==
LOC: PREOP 05:41
PROVIDERS: ATTEND Surgery
DX: Z01.818 Encounter for other preprocedural examination (principal)

== ENCOUNTER 2019-02-10 14:21 | Outpatient (RCR) | payer MEDICARE, MEDICAID ==
[2018-11-26 15:24] LABS: BASOPHILS % (AUTO) 1 % (0-10); EOSINOPHILS # (AUTO) 0.4 10^3/uL (0.0-0.3); EOSINOPHILS % (AUTO) 6 % (0-10); HEMATOCRIT 24 % (35-52); HEMOGLOBIN 7.8 G/DL (11.5-16.0); LYMPHOCYTES # (AUTO) 2.3 X 10^3 (1.0-4.0); LYMPHOCYTES % (AUTO) 35 % (12-44); MEAN CORPUSCULAR HEMOGLOBIN 31 PG (25-34); MEAN CORPUSCULAR HGB CONC 32 G/DL (32-36); MEAN CORPUSCULAR VOLUME 96 FL (80-99); MONOCYTES # (AUTO) 0.3 X 10^3 (0.0-1.0); MONOCYTES % (AUTO) 4 % (0-12); NEUTROPHILS # (AUTO) 3.6 X 10^3 (1.8-7.8); NEUTROPHILS % (AUTO) 54 % (42-75); PLATELET COUNT 154 10^3/uL (130-400); RED CELL DISTRIBUTION WIDTH 13.6 % (10.0-14.5); WHITE BLOOD COUNT 6.6 10^3/uL (4.3-11.0)
[2018-12-16 13:50] LABS: BASOPHILS % (AUTO) 1 % (0-10); EOSINOPHILS # (AUTO) 0.3 10^3/uL (0.0-0.3); EOSINOPHILS % (AUTO) 5 % (0-10); HEMATOCRIT 26 % (35-52); HEMOGLOBIN 8.6 G/DL (11.5-16.0); LYMPHOCYTES # (AUTO) 2.6 X 10^3 (1.0-4.0); LYMPHOCYTES % (AUTO) 41 % (12-44); MEAN CORPUSCULAR HEMOGLOBIN 32 PG (25-34); MEAN CORPUSCULAR HGB CONC 33 G/DL (32-36); MEAN CORPUSCULAR VOLUME 95 FL (80-99); MEAN PLATELET VOLUME 10.6 FL (7.4-10.4); MONOCYTES # (AUTO) 0.3 X 10^3 (0.0-1.0); MONOCYTES % (AUTO) 5 % (0-12); NEUTROPHILS # (AUTO) 3.1 X 10^3 (1.8-7.8); NEUTROPHILS % (AUTO) 49 % (42-75); PLATELET COUNT 139 10^3/uL (130-400); RED CELL DISTRIBUTION WIDTH 13.8 % (10.0-14.5); WHITE BLOOD COUNT 6.3 10^3/uL (4.3-11.0)
[2018-12-16 14:14] LABS: ALANINE AMINOTRANSFERASE < 6 U/L (0-55); ALBUMIN 3.2 GM/DL (3.2-4.5); ALKALINE PHOSPHATASE 33 U/L (40-136); BILIRUBIN,TOTAL 0.2 MG/DL (0.1-1.0); BUN/CREATININE RATIO 17; CALCIUM 8.9 MG/DL (8.5-10.1); CARBON DIOXIDE 29 MMOL/L (21-32); CHLORIDE 98 MMOL/L (98-107); GFR ESTIMATED 12; GLUCOSE 235 MG/DL (70-105); POTASSIUM 4.1 MMOL/L (3.6-5.0); SODIUM 137 MMOL/L (135-145)
[2019-01-07 11:10] LABS: BASOPHILS % (AUTO) 1 % (0-10); EOSINOPHILS # (AUTO) 0.3 10^3/uL (0.0-0.3); EOSINOPHILS % (AUTO) 4 % (0-10); HEMATOCRIT 28 % (35-52); HEMOGLOBIN 9.1 G/DL (11.5-16.0); LYMPHOCYTES # (AUTO) 2.2 X 10^3 (1.0-4.0); LYMPHOCYTES % (AUTO) 30 % (12-44); MEAN CORPUSCULAR HEMOGLOBIN 32 PG (25-34); MEAN CORPUSCULAR HGB CONC 33 G/DL (32-36); MEAN CORPUSCULAR VOLUME 98 FL (80-99); MEAN PLATELET VOLUME 10.9 FL (7.4-10.4); MONOCYTES # (AUTO) 0.5 X 10^3 (0.0-1.0); MONOCYTES % (AUTO) 7 % (0-12); NEUTROPHILS # (AUTO) 4.4 X 10^3 (1.8-7.8); NEUTROPHILS % (AUTO) 59 % (42-75); PLATELET COUNT 148 10^3/uL (130-400); RED CELL DISTRIBUTION WIDTH 14.1 % (10.0-14.5); WHITE BLOOD COUNT 7.5 10^3/uL (4.3-11.0)
[2019-01-27 13:20] LABS: BASOPHILS % (AUTO) 0 % (0-10); EOSINOPHILS # (AUTO) 0.3 10^3/uL (0.0-0.3); EOSINOPHILS % (AUTO) 4 % (0-10); HEMATOCRIT 26 % (35-52); HEMOGLOBIN 8.6 G/DL (11.5-16.0); LYMPHOCYTES % (AUTO) 28 % (12-44); MEAN CORPUSCULAR HEMOGLOBIN 32 PG (25-34); MEAN CORPUSCULAR HGB CONC 33 G/DL (32-36); MEAN CORPUSCULAR VOLUME 96 FL (80-99); MEAN PLATELET VOLUME 10.6 FL (7.4-10.4); MONOCYTES # (AUTO) 0.6 X 10^3 (0.0-1.0); MONOCYTES % (AUTO) 8 % (0-12); NEUTROPHILS # (AUTO) 4.4 X 10^3 (1.8-7.8); NEUTROPHILS % (AUTO) 60 % (42-75); PLATELET COUNT 159 10^3/uL (130-400); RED CELL DISTRIBUTION WIDTH 14.3 % (10.0-14.5); WHITE BLOOD COUNT 7.3 10^3/uL (4.3-11.0)
[2019-01-27 13:43] LABS: ALBUMIN 3.6 GM/DL (3.2-4.5); BILIRUBIN,TOTAL 0.2 MG/DL (0.1-1.0); CREATININE SERUM 4.25 MG/DL (0.60-1.30); POTASSIUM 4.6 MMOL/L (3.6-5.0); TOTAL PROTEIN 6.8 GM/DL (6.4-8.2)
[~2019-02-10 14:21] MED LIST changes: +DARBEPOETIN 40 MCG/ML (ARANESP) 1 ML VIAL SC SCH
[2019-02-10 14:34] LABS: BASOPHILS % (AUTO) 0 % (0-10); EOSINOPHILS % (AUTO) 0 % (0-10); HEMATOCRIT 23 % (35-52); HEMOGLOBIN 7.8 G/DL (11.5-16.0); LYMPHOCYTES # (AUTO) 1.4 X 10^3 (1.0-4.0); LYMPHOCYTES % (AUTO) 27 % (12-44); MEAN CORPUSCULAR HEMOGLOBIN 32 PG (25-34); MEAN CORPUSCULAR HGB CONC 34 G/DL (32-36); MEAN CORPUSCULAR VOLUME 94 FL (80-99); MEAN PLATELET VOLUME 11.1 FL (7.4-10.4); MONOCYTES # (AUTO) 0.2 X 10^3 (0.0-1.0); MONOCYTES % (AUTO) 3 % (0-12); NEUTROPHILS # (AUTO) 3.6 X 10^3 (1.8-7.8); NEUTROPHILS % (AUTO) 69 % (42-75); PLATELET COUNT 171 10^3/uL (130-400); WHITE BLOOD COUNT 5.2 10^3/uL (4.3-11.0)
[2019-02-10 14:58] LABS: CALCIUM 8.3 MG/DL (8.5-10.1); CREATININE SERUM 4.19 MG/DL (0.60-1.30); POTASSIUM 4.2 MMOL/L (3.6-5.0)
== END 2019-02-24 | disposition home or self-care (01) ==
LOC: ONC 14:21
PROVIDERS: ATTEND Internal Medicine Hematology & Oncology
DX: N18.3 Chronic kidney disease, stage 3 (moderate) (principal); D63.1 Anemia in chronic kidney disease; E10.21 Type 1 diabetes mellitus with diabetic nephropathy; K58.9 Irritable bowel syndrome, unspecified; Z87.891 Personal history of nicotine dependence; Z79.899 Other long term (current) drug therapy; Z79.4 Long term (current) use of insulin
CPT/HCPCS: 36415; 80048; 80053; 85025; 96372; 99213

== ENCOUNTER → 2019-05-01 | Outpatient (CLI) | payer MEDICARE, MEDICAID ==
[~2019-05-01] MED LIST changes: -DARBEPOETIN 40 MCG/ML (ARANESP) 1 ML VIAL SC SCH
[2019-05-01 13:23] LABS: BASOPHILS % (AUTO) 1 % (0-10); EOSINOPHILS # (AUTO) 0.3 10^3/uL (0.0-0.3); EOSINOPHILS % (AUTO) 4 % (0-10); HEMATOCRIT 24 % (35-52); HEMOGLOBIN 8.1 G/DL (11.5-16.0); LYMPHOCYTES % (AUTO) 39 % (12-44); MEAN CORPUSCULAR HEMOGLOBIN 33 PG (25-34); MEAN CORPUSCULAR HGB CONC 33 G/DL (32-36); MEAN CORPUSCULAR VOLUME 98 FL (80-99); MEAN PLATELET VOLUME 10.9 FL (7.4-10.4); MONOCYTES # (AUTO) 0.5 X 10^3 (0.0-1.0); MONOCYTES % (AUTO) 6 % (0-12); NEUTROPHILS # (AUTO) 3.9 X 10^3 (1.8-7.8); NEUTROPHILS % (AUTO) 51 % (42-75); PLATELET COUNT 152 10^3/uL (130-400); WHITE BLOOD COUNT 7.7 10^3/uL (4.3-11.0)
[2019-05-01 13:34] LABS: BILIRUBIN,URINE NEGATIVE (NEGATIVE); CLARITY,URINE CLEAR; COLOR,URINE YELLOW; GLUCOSE, URINE (UA) 4+ (NEGATIVE); KETONES,URINE NEGATIVE (NEGATIVE); LEUKOCYTE ESTERASE ,URINE 1+ (NEGATIVE); NITRITE,URINE NEGATIVE (NEGATIVE); PH,URINE 7 (5-9); PROTEIN,URINE 3+ (NEGATIVE); UROBILINOGEN,URINE NORMAL (NORMAL)
[2019-05-01 13:35] LABS: BACTERIA,URINE TRACE /HPF; WBC,URINE 0-2 /HPF
[2019-05-01 13:42] LABS: ALBUMIN 3.5 GM/DL (3.2-4.5); CALCIUM 8.7 MG/DL (8.5-10.1); CREATININE SERUM 5.01 MG/DL (0.60-1.30); PHOSPHORUS 5.9 MG/DL (2.3-4.7); POTASSIUM 4.6 MMOL/L (3.6-5.0); URIC ACID 5.1 MG/DL (2.6-7.2)
== END ==
LOC: LAB 13:00
PROVIDERS: ATTEND Internal Medicine Nephrology
DX: N18.3 Chronic kidney disease, stage 3 (moderate) (principal); R80.9 Proteinuria, unspecified; E10.9 Type 1 diabetes mellitus without complications; D64.9 Anemia, unspecified; I95.89 Other hypotension; I95.1 Orthostatic hypotension; E55.9 Vitamin D deficiency, unspecified; N39.0 Urinary tract infection, site not specified
CPT/HCPCS: 36415; 80069; 81000; 82306; 82570; 83970; 84156; 84550; 85025

== ENCOUNTER 2019-05-26 14:06 | Outpatient (RCR) | payer MEDICARE, MEDICAID ==
[2019-02-27 11:22] LABS: BASOPHILS % (AUTO) 1 % (0-10); EOSINOPHILS # (AUTO) 0.1 10^3/uL (0.0-0.3); EOSINOPHILS % (AUTO) 1 % (0-10); HEMATOCRIT 28 % (35-52); HEMOGLOBIN 9.4 G/DL (11.5-16.0); LYMPHOCYTES # (AUTO) 2.1 X 10^3 (1.0-4.0); LYMPHOCYTES % (AUTO) 28 % (12-44); MEAN CORPUSCULAR HEMOGLOBIN 33 PG (25-34); MEAN CORPUSCULAR HGB CONC 34 G/DL (32-36); MEAN CORPUSCULAR VOLUME 98 FL (80-99); MEAN PLATELET VOLUME 10.2 FL (7.4-10.4); MONOCYTES # (AUTO) 0.5 X 10^3 (0.0-1.0); MONOCYTES % (AUTO) 7 % (0-12); NEUTROPHILS # (AUTO) 4.9 X 10^3 (1.8-7.8); NEUTROPHILS % (AUTO) 64 % (42-75); PLATELET COUNT 150 10^3/uL (130-400); RED CELL DISTRIBUTION WIDTH 14.6 % (10.0-14.5); WHITE BLOOD COUNT 7.7 10^3/uL (4.3-11.0)
[2019-03-26 13:43] LABS: BASOPHILS % (AUTO) 0 % (0-10); EOSINOPHILS # (AUTO) 0.5 10^3/uL (0.0-0.3); EOSINOPHILS % (AUTO) 6 % (0-10); HEMATOCRIT 23 % (35-52); HEMOGLOBIN 7.7 G/DL (11.5-16.0); LYMPHOCYTES # (AUTO) 2.1 X 10^3 (1.0-4.0); LYMPHOCYTES % (AUTO) 28 % (12-44); MEAN CORPUSCULAR HEMOGLOBIN 32 PG (25-34); MEAN CORPUSCULAR HGB CONC 33 G/DL (32-36); MEAN CORPUSCULAR VOLUME 98 FL (80-99); MEAN PLATELET VOLUME 10.4 FL (7.4-10.4); MONOCYTES # (AUTO) 0.5 X 10^3 (0.0-1.0); MONOCYTES % (AUTO) 6 % (0-12); NEUTROPHILS # (AUTO) 4.6 X 10^3 (1.8-7.8); NEUTROPHILS % (AUTO) 60 % (42-75); PLATELET COUNT 166 10^3/uL (130-400); RED CELL DISTRIBUTION WIDTH 13.5 % (10.0-14.5); WHITE BLOOD COUNT 7.7 10^3/uL (4.3-11.0)
[2019-03-26 13:57] LABS: ALBUMIN 3.1 GM/DL (3.2-4.5); BILIRUBIN,TOTAL 0.2 MG/DL (0.1-1.0); CREATININE SERUM 4.67 MG/DL (0.60-1.30); POTASSIUM 4.3 MMOL/L (3.6-5.0); TOTAL PROTEIN 6.1 GM/DL (6.4-8.2)
[2019-05-06 14:44] LABS: BASOPHILS % (AUTO) 0 % (0-10); EOSINOPHILS # (AUTO) 0.3 10^3/uL (0.0-0.3); EOSINOPHILS % (AUTO) 5 % (0-10); HEMATOCRIT 21 % (35-52); LYMPHOCYTES # (AUTO) 2.3 X 10^3 (1.0-4.0); LYMPHOCYTES % (AUTO) 37 % (12-44); MEAN CORPUSCULAR HEMOGLOBIN 32 PG (25-34); MEAN CORPUSCULAR HGB CONC 33 G/DL (32-36); MEAN CORPUSCULAR VOLUME 98 FL (80-99); MEAN PLATELET VOLUME 10.2 FL (7.4-10.4); MONOCYTES # (AUTO) 0.4 X 10^3 (0.0-1.0); MONOCYTES % (AUTO) 7 % (0-12); NEUTROPHILS # (AUTO) 3.2 X 10^3 (1.8-7.8); NEUTROPHILS % (AUTO) 52 % (42-75); PLATELET COUNT 156 10^3/uL (130-400); RED CELL DISTRIBUTION WIDTH 13.2 % (10.0-14.5); WHITE BLOOD COUNT 6.2 10^3/uL (4.3-11.0)
[~2019-05-26 14:06] MED LIST changes: -CATHETER FLUSH 10 ML SYR IV PRN; +DARBEPOETIN 40 MCG/ML (ARANESP) 1 ML VIAL SC SCH; -ONDANSETRON 4 MG/2 ML (SDV) Z0FRAN IVP ONE; -ONDANSETRON 4 MG/2 ML (SDV) Z0FRAN ONE; -REGADENOSON 0.4 MG/5 ML SYR (LEXISCAN) IV ONE
[2019-05-26 14:21] LABS: BASOPHILS % (AUTO) 0 % (0-10); EOSINOPHILS # (AUTO) 0.1 10^3/uL (0.0-0.3); EOSINOPHILS % (AUTO) 2 % (0-10); HEMATOCRIT 24 % (35-52); LYMPHOCYTES # (AUTO) 1.3 X 10^3 (1.0-4.0); LYMPHOCYTES % (AUTO) 18 % (12-44); MEAN CORPUSCULAR HEMOGLOBIN 33 PG (25-34); MEAN CORPUSCULAR HGB CONC 34 G/DL (32-36); MEAN CORPUSCULAR VOLUME 98 FL (80-99); MONOCYTES # (AUTO) 0.6 X 10^3 (0.0-1.0); MONOCYTES % (AUTO) 9 % (0-12); NEUTROPHILS # (AUTO) 4.9 X 10^3 (1.8-7.8); NEUTROPHILS % (AUTO) 70 % (42-75); PLATELET COUNT 194 10^3/uL (130-400)
== END 2019-05-28 | disposition home or self-care (01) ==
LOC: ONC 14:06
PROVIDERS: ATTEND Internal Medicine Hematology & Oncology
DX: N18.3 Chronic kidney disease, stage 3 (moderate) (principal); D63.1 Anemia in chronic kidney disease; E10.21 Type 1 diabetes mellitus with diabetic nephropathy; K58.9 Irritable bowel syndrome, unspecified; Z87.891 Personal history of nicotine dependence; Z79.899 Other long term (current) drug therapy; Z79.4 Long term (current) use of insulin
CPT/HCPCS: 36415; 80053; 85025; 96372

== ENCOUNTER → 2019-05-26 | Outpatient (CLI) | payer MEDICARE, MEDICAID ==
[~2019-05-26] MED LIST changes: +CATHETER FLUSH 10 ML SYR IV PRN; +ONDANSETRON 4 MG/2 ML (SDV) Z0FRAN IVP ONE; +ONDANSETRON 4 MG/2 ML (SDV) Z0FRAN ONE; +REGADENOSON 0.4 MG/5 ML SYR (LEXISCAN) IV ONE
[2019-05-26 12:47] VITALS: BP 237/90
[2019-05-26 12:48] VITALS: BP 243/83
--- NOTE | 2019-05-26 23:58 | STRESS TEST ---
DATE OF SERVICE: 05/26/2019 RESTING AND POST REGADENOSON TECHNETIUM-99M TETROFOSMIN SPECT CT IMAGING CLINICAL DIAGNOSES: Hypertension, diabetes, chronic kidney disease stage IV, preoperative evaluation. Baseline images were carried out after injection of 10.75 mCi technetium-99m Tetrofosmin. This was followed by 0.4 mg regadenoson and 28.7 mCi of technetium-99m Tetrofosmin for stress imaging. The electrocardiogram showed sinus rhythm at baseline. The patient remained in sinus rhythm and the electrocardiogram did not change significantly with regadenoson infusion. He did experience nausea during the study for which he received 4 mg of intravenous Zofran. He did not report any other symptoms. Review of images at rest and following stress does not indicate any significant perfusion defects consistent with myocardial ischemia or infarction. Gated images show normal global left ventricular systolic function with normal regional wall motion. Left ventricular ejection fraction is calculated to be 71%. Left ventricular end-diastolic volume is 50 mL. TID is absent (0.85). CONCLUSIONS: 1. No evidence of any significant myocardial ischemia or infarction on this study. 2. Normal regional wall motion. 3. Normal global left ventricular systolic function with a calculated ejection fraction 71%. 4. Normal left ventricular cavity size. Job ID: [id number] DocumentID: [id number] Dictated Date: 05/26/2019 19:55:37 Individual Small Group Instructor Date: 05/26/2019 23:57:42 Dictated By: MELCHOR LOREDO MD, MA, FACP, FACC,
== END ==
LOC: CARD 11:26
PROVIDERS: ATTEND Internal Medicine Cardiovascular Disease
DX: E11.22 Type 2 diabetes mellitus with diabetic chronic kidney disease (principal); N18.4 Chronic kidney disease, stage 4 (severe); I12.9 Hypertensive chronic kidney disease with stage 1 through stage 4 chronic kidney disease, or unspecified chronic kidney disease
CPT/HCPCS: 78452; 93017; 93306

== ENCOUNTER → 2019-06-09 | Outpatient (CLI) | payer MEDICARE, MEDICAID ==
[~2019-06-09] MED LIST changes: -DARBEPOETIN 40 MCG/ML (ARANESP) 1 ML VIAL SC SCH
[2019-06-09 13:52] LABS: HEMOGLOBIN 8.1 G/DL (11.5-16.0); MEAN PLATELET VOLUME 10.7 FL (7.4-10.4); RED CELL DISTRIBUTION WIDTH 13.5 % (10.0-14.5); WHITE BLOOD COUNT 7.2 10^3/uL (4.3-11.0)
[2019-06-09 14:01] LABS: BILIRUBIN,URINE NEGATIVE (NEGATIVE); CLARITY,URINE CLEAR; COLOR,URINE YELLOW; GLUCOSE, URINE (UA) 4+ (NEGATIVE); KETONES,URINE NEGATIVE (NEGATIVE); LEUKOCYTE ESTERASE ,URINE NEGATIVE (NEGATIVE); NITRITE,URINE NEGATIVE (NEGATIVE); PH,URINE 6.5 (5-9); PROTEIN,URINE 3+ (NEGATIVE); UROBILINOGEN,URINE NORMAL (NORMAL)
[2019-06-09 14:09] LABS: BACTERIA,URINE NEGATIVE /HPF; RBC,URINE RARE /HPF; SQUAMOUS EPITHELIAL CELL,UR RARE /HPF
[2019-06-09 14:11] LABS: ALBUMIN 3.3 GM/DL (3.2-4.5); CALCIUM 8.5 MG/DL (8.5-10.1); CREATININE SERUM 6.28 MG/DL (0.60-1.30); PHOSPHORUS 5.9 MG/DL (2.3-4.7); POTASSIUM 4.6 MMOL/L (3.6-5.0); URIC ACID 7.2 MG/DL (2.6-7.2)
== END ==
LOC: LAB 13:12
PROVIDERS: ATTEND Internal Medicine Nephrology
DX: E55.9 Vitamin D deficiency, unspecified (principal); E10.9 Type 1 diabetes mellitus without complications; D63.1 Anemia in chronic kidney disease; I95.89 Other hypotension; I95.1 Orthostatic hypotension; N39.0 Urinary tract infection, site not specified; N18.5 Chronic kidney disease, stage 5
CPT/HCPCS: 36415; 80069; 81000; 82306; 82570; 83970; 84156; 84550; 85027

== ENCOUNTER 2019-07-08 14:02 | Outpatient (RCR) | payer MEDICARE, MEDICAID, OTHER ==
[2019-06-15 13:07] LABS: BASOPHILS # (AUTO) 0.1 10^3/uL (0.0-0.1); BASOPHILS % (AUTO) 1 % (0-10); EOSINOPHILS # (AUTO) 0.4 10^3/uL (0.0-0.3); EOSINOPHILS % (AUTO) 6 % (0-10); HEMATOCRIT 23 % (35-52); HEMOGLOBIN 7.8 G/DL (11.5-16.0); LYMPHOCYTES # (AUTO) 1.9 X 10^3 (1.0-4.0); LYMPHOCYTES % (AUTO) 32 % (12-44); MEAN CORPUSCULAR HEMOGLOBIN 33 PG (25-34); MEAN CORPUSCULAR HGB CONC 34 G/DL (32-36); MEAN CORPUSCULAR VOLUME 97 FL (80-99); MONOCYTES # (AUTO) 0.4 X 10^3 (0.0-1.0); MONOCYTES % (AUTO) 6 % (0-12); NEUTROPHILS # (AUTO) 3.2 X 10^3 (1.8-7.8); NEUTROPHILS % (AUTO) 55 % (42-75); PLATELET COUNT 142 10^3/uL (130-400); WHITE BLOOD COUNT 5.8 10^3/uL (4.3-11.0)
[~2019-07-08 14:02] MED LIST changes: +DARBEPOETIN 40 MCG/ML (ARANESP) 1 ML VIAL SC SCH
== END 2019-08-27 | disposition home or self-care (01) ==
LOC: ONC 14:02
PROVIDERS: ATTEND Internal Medicine Hematology & Oncology
DX: N18.3 Chronic kidney disease, stage 3 (moderate) (principal); D63.1 Anemia in chronic kidney disease; E10.21 Type 1 diabetes mellitus with diabetic nephropathy; K58.9 Irritable bowel syndrome, unspecified; Z87.891 Personal history of nicotine dependence; Z79.899 Other long term (current) drug therapy; Z79.4 Long term (current) use of insulin
CPT/HCPCS: 36415; 85025; 96372; 99213

== ENCOUNTER → 2019-08-28 | Outpatient (CLI) | payer MEDICARE, MEDICAID ==
[~2019-08-28] MED LIST changes: -DARBEPOETIN 40 MCG/ML (ARANESP) 1 ML VIAL SC SCH
[2019-08-28 15:00] LABS: TSH (THYROID ANALYZER) 5.27 UIU/ML (0.35-4.94)
[2019-08-28 15:45] LABS: FREE T4 (FREE THYROXINE) 0.89 NG/DL (0.70-1.48)
--- NOTE | 2019-08-28 17:14 | Diagnostic Imaging Report ---
PROCEDURE: CT abdomen and pelvis without contrast. TECHNIQUE: Multiple contiguous axial images were obtained through the abdomen and pelvis without the use of intravenous contrast. Auto Exposure Controls were utilized during the CT exam to meet ALARA standards for radiation dose reduction. DATE: August 28, 2019. COMPARISON: Right upper quadrant abdominal ultrasound January 16, 2019. INDICATION: 39-year-old female, proteinuria. Patient is on dialysis. Left lower quadrant abdominal pain. FINDINGS: There are limitations for evaluation of the abdominal organs, neoplastic processes, abscess, and limited evaluation of the vasculature relating to the lack of intravenous contrast. The visualized portions of the lung bases are clear. The heart is not enlarged. There is no pericardial effusion. The liver is unremarkable in size and contour. There is a small amount of fluid immediately subjacent to the liver as well as a small amount of free intraperitoneal air seen on axial image 17. The gallbladder is unremarkable. There is an area of very high attenuation near the duodenal insertion of the common bile duct which is not projecting definitely within the common bile duct. There is also no intrahepatic bile duct dilation. Recommend correlation with laboratory values. Comparison imaging is not available to assess for possible stability. There is no evidence of acute pancreatitis. The spleen is normal in size. The adrenal glands are unremarkable. Unremarkable appearance of the renal parenchyma. The urinary collecting systems are not distended. There is no identified renal or ureteral stone. The urinary bladder is unremarkable. Gross unremarkable appearance of the uterus and adnexa. The intestinal tract is not distended. There is an abdominal drainage catheter with tip in the right lower quadrant. There is adjacent fluid. The appendix is unremarkable. There is no well-demarcated drainable fluid collection. There is minimal additional free fluid in the pelvis. There is no identified abnormally enlarged lymph node in the abdomen or pelvis which meet CT size criteria for adenopathy. There is no identified acute bony abnormality. IMPRESSION: CT abdomen and pelvis: 1. Small amount of free intraperitoneal air and very small volume of free fluid in the abdomen and pelvis. Recommend correlation with timing of placement of abdominal drainage catheter or other recent intervention. 2. No focal drainable fluid collection. 3. No additionally identified potential acute abnormality in the abdomen or pelvis. Report was called to Dr. Naye Cifuentes at 5:06 p.m., by cali, and report was faxed to his office. Dictated by: Dictated on workstation # [id number]
== END ==
LOC: RAD 14:03
PROVIDERS: ATTEND Internal Medicine Nephrology
DX: E10.22 Type 1 diabetes mellitus with diabetic chronic kidney disease (principal); N18.3 Chronic kidney disease, stage 3 (moderate); E10.65 Type 1 diabetes mellitus with hyperglycemia; R18.8 Other ascites
CPT/HCPCS: 36415; 74176; 84439; 84443

== ENCOUNTER → 2019-08-28 | Outpatient (CLI) | payer MEDICARE, MEDICAID | LOC: LAB 01:24 | PROVIDERS: ATTEND Internal Medicine Endocrinology, Diabetes & Metabolism | DX: E10.22 Type 1 diabetes mellitus with diabetic chronic kidney disease (principal); E10.65 Type 1 diabetes mellitus with hyperglycemia; N18.3 Chronic kidney disease, stage 3 (moderate) ==

== ENCOUNTER 2019-10-15 14:37 | Emergency (ER) | payer MEDICARE, MEDICAID ==
[~2019-10-15] VITALS: Ht 157 cm; Wt 63.5 kg
[2019-10-15] MEDS ORDERED: NS IV 1000 ML 1,000 ML IV SCH ×2 (14:52→15:44)
--- NOTE | 2019-10-15 14:59 | ED General ---
General Chief Complaint: Glucose Problems Stated Complaint: ELEVATED BLOOD SUGAR Nursing Triage Note: HAS METER IN L ARM THAT HAS BEEN READING "HIGH" SINCE LAST NIGHT AT 2330, PT ALSO HAS AN INSULIN PUMP AND HAS BEEN TAKING, ALONG WITH PUMP, 10 U OF NOVOLOG EVERY TWO HOURS AND IS NOT ABLE TO GET BLOOD SUGAR DOWN Nursing Sepsis Screen: No Definite Risk Source of Information: Patient Exam Limitations: No Limitations History of Present Illness Date Seen by Provider: Oct 15, 2019 Time Seen by Provider: 14:50 Initial Comments 39-year-old female presents to the high blood sugar reading. Patient reports she has an anal arm blood sugar monitoring with an insulin pump. She reports that since 11 PM last night her meter has been reading high. She reports she changed her insulin pump today, has been taking 10 units of NovoLog every 2 hours but has been unable to get the views were read in the high. Patient reports some generalized malaise. No nausea, vomiting, fever, chills or other systemic complaints at this time. Allergies and Home Medications Allergies Coded Allergies: Bxxszij-Nlh-Fjv Reductase Inhibitor (Verified Allergy, Severe, ANAPHYLAXIS, 03/18/12) difficulty breathing, BLE swelling lisinopril (Verified Allergy, Severe, ANAPHYLAXIS, 03/18/12) difficulty breathing, swelling of extremities gabapentin (Verified Allergy, Unknown, 04/23/18) losartan (Verified Allergy, Unknown, 04/23/18) midazolam (Verified Allergy, Unknown, HIVES, 06/06/18) niacin (Verified Allergy, Unknown, 04/23/18) Home Medications Butalbital/Aspirin/Caffeine 1 Each Capsule, 1 EACH PO Q4H PRN for MIGRAINE, (Reported) Cholecalciferol (Vitamin D3) 400 Unit Tablet, 400 UNIT PO DAILY, (Reported) Citalopram Hydrobromide 20 Mg Tablet, 20 MG PO DAILY, (Reported) Darbepoetin Benjie in Polysorbat 40 Mcg/0.4 Ml Syringe, 40 MCG IJ every 3 weeks PRN for hgb less than 11, (Reported) Dicyclomine HCl 20 Mg Tablet, 20 MG PO QID PRN for STOMACH UPSET, (Reported) Ferrous Sulfate 325 Mg Tablet.dr, 325 MG PO DAILY, (Reported) Fludrocortisone Acetate 0.1 Mg Tab, 0.5 MG PO DAILY, (Reported) Hydralazine HCl 25 Mg Tablet, 25 MG PO QID Prescribed by: LUI GARCIA on 01/23/191918 Norgestimate-Ethinyl Estradiol 1 Each Tablet, 1 EACH PO DAILY, (Reported) Ondansetron 4 Mg Tab.rapdis, 4 MG SL Q4H PRN for NAUSEA/VOMITING-1ST LINE, ( Reported) Bev107/FA/Omega3/Dha/Fish Oil 1 Each Tab.chew, 1 EACH PO BID, (Reported) Rizatriptan Benzoate 10 Mg Tab.rapdis, 10 MG PO UD, (Reported) take at onset of migraine Ropinirole HCl 0.25 Mg Tablet, 0.25 MG PO HS, (Reported) Sodium Bicarbonate 650 Mg Tablet, 650 MG PO BID, (Reported) Topiramate 25 Mg Tablet, 25 MG PO BID, (Reported) Tramadol HCl 50 Mg Tablet, 50 MG PO BID, (Reported) Patient Home Medication List Home Medication List Reviewed: Yes Review of Systems Review of Systems Constitutional: No chills, No fever EENTM: no symptoms reported Respiratory: No cough, No short of breath Cardiovascular: No chest pain Gastrointestinal: No diarrhea, No nausea, No vomiting Genitourinary: no symptoms reported Musculoskeletal: no symptoms reported Skin: no symptoms reported Hematologic/Lymphatic: See HPI Past Jycisjo-Rsfebt-Ossnbt Hx Past Med/Social Hx: Reviewed Nursing Past Med/Soc Hx Patient Social History Alcohol Use: Denies Use Recreational Drug Use: No 2nd Hand Smoke Exposure: No Recent Foreign Travel: No Contact w/Someone Who Travel: No Recent Infectious Disease Expo: No Recent Hopitalizations: Yes (diabetes) Physical Abuse: No Sexual Abuse: No Mistreated: No Fear: No Immunizations Up To Date Tetanus Booster (TDap): Less than 5yrs Seasonal Allergies Seasonal Allergies: No Past Medical History Surgeries: Yes (bilat tubal ligation) Tubal Ligation Respiratory: No Cardiac: Yes (Hypotension) Neurological: No Reproductive 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 0.0oz. 58.099107vt; 25.00 BMI Method:Stated General Appearance: No Apparent Distress, WD/WN HEENT: PERRL/EOMI Neck: Non Tender, Supple Respiratory: Chest Non Tender, Lungs Clear Cardiovascular: Regular Rate, Rhythm Back: Normal Inspection Extremity: Normal Capillary Refill, Normal Inspection Neurologic/Psychiatric: Oriented x3, No Motor/Sensory Deficits, Normal Mood/Affect, stereo operator II-XII Norm as Tested Progress/Results/Core Measures Suspected Sepsis Recent Fever Within 48 Hours: No Infection Criteria Present: None New/Unexplained Altered Menta: No Sepsis Screen: No Definite Risk SIRS Temperature: Pulse: 106 Respiratory Rate: 18 Laboratory Tests 10/15/19 15:05: White Blood Count 10.4 Blood Pressure 109 /65 Mean: 80 Laboratory Tests 10/15/19 15:05: Creatinine 6.46H, Platelet Count 244, Total Bilirubin 0.3 Results/Orders Lab Results Laboratory Tests Test 10/15/19 14:48 10/15/19 15:05 10/15/19 15:15 10/15/19 15:27 Range/Units Glucometer > 600 *H 70-110 MG/DL White Blood Count 10.4 4.3-11.0 10^3/uL Red Blood Count 2.62 L 4.35-5.85 10^6/uL Hemoglobin 8.4 L 11.5-16.0 G/DL Hematocrit 25 L 35-52 % Mean Corpuscular Volume 96 80-99 FL Mean Corpuscular Hemoglobin 32 25-34 PG Mean Corpuscular Hemoglobin Concent 33 32-36 G/DL Red Cell Distribution Width 12.9 10.0-14.5 % Platelet Count 244 130-400 10^3/uL Mean Platelet Volume 10.2 7.4-10.4 FL Urine Test NEGATIVE NEGATIVE Sodium Level 124 *L 135-145 MMOL/L Potassium Level 4.6 3.6-5.0 MMOL/L Chloride Level 89 L 98-107 MMOL/L Carbon Dioxide Level 10 L 21-32 MMOL/L Anion Gap 25 H 5-14 MMOL/L Blood Urea Nitrogen 94 H 7-18 MG/DL Creatinine 6.46 H 0.60-1.30 MG/DL Estimat Glomerular Filtration Rate 7 BUN/Creatinine Ratio 15 Glucose Level 751 *H 70-105 MG/DL Calcium Level 8.0 L 8.5-10.1 MG/DL Corrected Calcium 8.6 8.5-10.1 MG/DL Total Bilirubin 0.3 0.1-1.0 MG/DL Aspartate Amino Transf (AST/SGOT) 18 5-34 U/L Alanine Aminotransferase (ALT/SGPT) 15 0-55 U/L Alkaline Phosphatase 78 40-136 U/L Total Protein 6.0 L 6.4-8.2 GM/DL Albumin 3.3 3.2-4.5 GM/DL Urine Color YELLOW Urine Clarity SL CLOUDY Urine pH 5.5 5-9 Urine Specific Cocoa 1.010 L 1.016-1.022 Urine Protein TRACE NEGATIVE Urine Glucose (UA) 3+ H NEGATIVE Urine Ketones 2+ H NEGATIVE Urine Nitrite POSITIVE NEGATIVE Urine Bilirubin NEGATIVE NEGATIVE Urine Urobilinogen 0.2 < = 1.0 MG/DL Urine Leukocyte Esterase 1+ H NEGATIVE Urine RBC (Auto) 1+ H NEGATIVE Urine RBC 2-5 H /HPF Urine WBC 50-100 H /HPF Urine Squamous Epithelial Cells 2-5 /HPF Urine Crystals NONE /LPF Urine Bacteria MODERATE H /HPF Urine Casts NONE /LPF Urine Mucus NEGATIVE /LPF Urine Culture Indicated YES Blood Gas Puncture Site RIGHT RADIAL Blood Gas Patient Temperature 36.8 Arterial Blood pH 7.24 *L 7.37-7.43 Arterial Blood Partial Pressure CO2 31 L 35-45 MMHG Arterial Blood Partial Pressure O2 38 *L 79-93 MMHG Arterial Blood HCO3 13 *L 23-27 MMOL/L Arterial Blood Total CO2 13.6 L 21.0-31.0 MMOL/L Arterial Blood Oxygen Saturation 64 L 94-100 % Arterial Blood Base Excess -13.3 L -2.5-2.5 MMOL/L Hang Test POSITIVE Blood Gas Ventilator Setting NO Blood Gas Inspired Oxygen N/A My Orders Orders - MRAY LOU GREENEVOR L DO Cbc No Diff (10/15/19 14:52) Comprehensive Metabolic Panel (10/15/19 14:52) Hcg,Qualitative Urine (10/15/19 14:52) Ua Culture If Indicated (10/15/19 14:52) Accucheck Stat ONCE (10/15/19 14:52) Ed Iv/Invasive Line Start (10/15/19 14:52) Ed Iv/Invasive Line Start (10/15/19 14:52) Ns Iv 1000 Ml (Sodium Chloride 0.9%) (10/15/19 14:52) Arterial Blood Gas (10/15/19 14:52) Urine Culture (10/15/19 15:15) Ed Iv/Invasive Line Start (10/15/19 15:44) Ns Iv 1000 Ml (Sodium Chloride 0.9%) (10/15/19 15:44) Insulin Regular Tpn/Drip Only (Humulin R (10/15/19 15:45) Vital Signs/I&O 10/15/19 14:41 Temp 37.2 Pulse 106 Resp 18 B/P (MAP) 109/65 (80) Capillary Refill : Less Than 3 Seconds Blood Pressure Mean: 80 POS Departure Impression Primary Impression: DKA, type 1 Qualified Codes: E10.10 - Type 1 diabetes mellitus with ketoacidosis without coma Additional Impression: Dependence on peritoneal dialysis Disposition: XFER SHT-TRM HOSP Condition: Critical Transfer Transfer Reason: Exceeds level of care Time Spoke to Accepting Phy: 16:09 Transfer Progress Notes Patient is in DKA and dependent on peritoneal dialysis. We're unable to care for dialysis patients in this facility so she will be transferred to Dr. Gustafson in the ICU at [facility] Transfer Facility: [facility] Method of Transfer: EMS Departure-Patient Inst. Referrals: [facility] (PCP) Primary Care Physician ALAN CARABALLO (Family) Primary Care Physician DUANE GREENE DO Oct 15, 2019 14:59 POS
[2019-10-15 15:14] LABS: HEMOGLOBIN 8.4 G/DL (11.5-16.0); MEAN PLATELET VOLUME 10.2 FL (7.4-10.4); RED CELL DISTRIBUTION WIDTH 12.9 % (10.0-14.5); WHITE BLOOD COUNT 10.4 10^3/uL (4.3-11.0)
[2019-10-15 15:25] LABS: BILIRUBIN,URINE NEGATIVE (NEGATIVE); CLARITY,URINE SL CLOUDY; COLOR,URINE YELLOW; GLUCOSE, URINE (UA) 3+ (NEGATIVE); KETONES,URINE 2+ (NEGATIVE); LEUKOCYTE ESTERASE ,URINE 1+ (NEGATIVE); NITRITE,URINE POSITIVE (NEGATIVE); PH,URINE 5.5 (5-9); PROTEIN,URINE TRACE (NEGATIVE)
[2019-10-15 15:37] LABS: ALBUMIN 3.3 GM/DL (3.2-4.5); BILIRUBIN,TOTAL 0.3 MG/DL (0.1-1.0); CREATININE SERUM 6.46 MG/DL (0.60-1.30); POTASSIUM 4.6 MMOL/L (3.6-5.0)
[2019-10-15 15:39] LABS: BACTERIA,URINE MODERATE /HPF; WBC,URINE 50-100 /HPF
[2019-10-15 15:45] LABS: ABG BASE EXCESS -13.3 MMOL/L (-2.5-2.5); ABG OXYGEN SATURATION 64 % (94-100); ABG PCO2 31 MMHG (35-45); ABG TCO2 13.6 MMOL/L (21.0-31.0)
[2019-10-15] MEDS ORDERED: inSUlin REGULAR TPN/DRIP ONLY 250 UNITS in NORMAL SALINE 250 ML IV SCH (15:45)
[2019-10-15 15:46] LABS: ABG PH 7.24 (7.37-7.43); ABG PO2 38 MMHG (79-93)
[2019-10-15 15:47] LABS: ALLENS TEST POSITIVE; PATIENT TEMP 36.8; VENTILATOR NO
[2019-10-15] MEDS ORDERED: ONDANSETRON 4 MG/2 ML (SDV) Z0FRAN IVP ONE (17:00)
[2019-10-15 17:12] VITALS: BP 133/77
== END 2019-10-15 17:17 | disposition short-term general hospital (02) ==
LOC: EDUNIT# 14:37 → ER 14:38
DX: E10.10 Type 1 diabetes mellitus with ketoacidosis without coma (principal); K58.9 Irritable bowel syndrome, unspecified; F32.9 Major depressive disorder, single episode, unspecified; Z99.2 Dependence on renal dialysis; Z79.4 Long term (current) use of insulin; Z88.8 Allergy status to other drugs, medicaments and biological substances; Z98.51 Tubal ligation status
CPT/HCPCS: 36415; 80053; 81000; 82805; 82962; 84703; 85027; 87077; 87088; 87186

== ENCOUNTER 2020-03-19 05:39 | Emergency (ER) | payer MEDICARE, MEDICAID ==
[~2020-03-19] VITALS: Ht 157 cm; Wt 63.5 kg
[~2020-03-19 05:39] MED LIST changes: -RIZA10TA25 PO; +RIZA10TA94 PO
--- OUTSIDE RECORDS SUMMARY | 2020-03-19 05:45 | XMS REPORT | Clinical Summary ---
Author Author [facility] Organization [facility] Address Unknown Phone Unavailable Care Team Providers Care Mobile Sales Technician Name Role Phone Shanita Soto APRN PCP Kendra Aldana MD Unavailable Guera Cifuentes MD 21 Source Comments Some departments are not documenting in the electronic medical record. If you d o not see the information that you expected, contact Release of Information in [facility] [employer] Information Management department at [phone] for further assistan ce in locating additional records.[facility] Allergies Comments Active Allergy Reactions Severity Noted Date Losartan RASH, Medium 02/21/2018 ITCHING, EDEMA Gabapentin ANAPHYLAXIS, High 02/21/2018 EDEMA Joint swelling Lisinopril FEVER, HIVES, Medium 02/21/2018 SHORTNESS OF BREATH Niacin ANAPHYLAXIS, High 02/21/2018 HIVES, EDEMA Difficulty breathing Uqjiahw-Lov-Vox Reductase ANAPHYLAXIS, High 04/04/2018 Inhibitors HIVES, SEE COMMENTS, EDEMA Midazolam HIVES Medium 05/04/2019 Medications End Date Status Medication Sig Dispensed Refills Start Date Active vitamins, w/iron Take 1 tablet 0 & folate 65/1 mg tab by mouth twice daily. Active darbepoetin goyo Inject 40 mcg 0 (ARANESP) 100 mcg/0.5 mL under the syrg skin every 21 days. Active ferrous sulfate (FEOSOL, Take 325 mg 0 FEROSUL) 325 mg (65 mg by mouth iron) tablet daily. Take on an empty stomach at least 1 hour before or 2 hours after food. Active cholecalciferol (VITAMIN Take 500 0 D-3) 400 unit tab tablet Units by mouth daily. Active ondansetron (ZOFRAN) 4 mg Take 4 mg by 0 tablet mouth every 8 hours as needed for Nausea or Vomiting. Active citalopram (CELEXA) 20 mg Take 20 mg by 0 tablet mouth daily. Active rOPINIRole (REQUIP) 0.25 Take 0.5 mg 0 mg tablet by mouth daily. Active sodium bicarbonate 325 mg Take 1,300 mg 0 tablet by mouth twice daily. Active butalbital/acetaminophen/ Take 1 tablet 0 caffeine(+) (FIORICET) by mouth 50/325/40 mg tablet every 4 hours as needed for Headache. Active traMADol (ULTRAM) 50 mg Take 25 mg by 0 tablet mouth at bedtime daily. Active norgestimate/ethinyl Take 1 tablet 0 estradiol(+) (ORTHO by mouth TRI-CYCLEN; TRI-SPRINTEC) daily. .18/.215/.25-35 mg-mcg (28) tablet Active cyanocobalamin (vitamin Place 5,000 0 B-12) (VITAMIN B-12) mcg under 5,000 mcg subl tongue daily. Active vitamin E 400 unit Take 400 0 capsule Units by mouth daily. Active midodrine (PROAMATINE) Take 2.5 mg 0 2.5 mg tablet by mouth daily as needed (BP<100/70). Active CONTOUR NEXT TEST STRIPS Test up to 8 700 strip 3 test strip times per 8 day. Active divalproex (DEPAKOTE ER) Take 750 mg 0 500 mg ER tablet by mouth daily. Take with food. Active fluticasone (FLONASE) 50 Apply to 0 mcg/actuation nasal spray each nostril as directed daily. Shake bottle gently before using. Active calcitriol (ROCALTROL) Take 0.25 mcg 0 0.25 mcg capsule by mouth daily. Active fexofenadine(+) (EDWIN) Take 60 mg by 0 60 mg tablet mouth daily. Active blood sugar diagnostic Use one strip 360 strip 3 1 test strip as directed 8 four times daily. Please fill with only BGStar Blood Glucose Test Strips Active hyoscyamine sulfate Take 125 mcg 0 (LEVSIN) 0.125 mg tablet by mouth every 4 hours as needed for Cramps. Active propranolol (INDERAL) 10 Take 10 mg by 0 mg tablet mouth twice daily. Active cloNIDine (CATAPRESS) 0.1 Take 0.1 mg 0 mg tablet by mouth daily as needed (BP >160/90). Active oxymetazoline (AFRIN) Apply 2 0 0.05 % nasal spray sprays to each nostril as directed twice daily as needed. Active aspirin/acetaminophen/caf Take 1 tablet 0 feine (EXCEDRIN MIGRAINE) by mouth 250/250/65 mg tab every 8 hours as needed. Active insulin aspart U-100 Up to 30 30 mL 3 05/18 (NOVOLOG) 100 unit/mL units/ day 9 injectionIndications: Indications: type 1 diabetes mellitus type 1 diabetes mellitus Active insulin glargine (LANTUS Take 8 units 15 mL 3 SOLOSTAR, BASAGLAR) 100 once every 24 9 unit/mL (3 mL) injection hours for PENIndications: type 1 pump failure diabetes mellitus Indications: type 1 diabetes mellitus Active heparin 0-4,000 0 sodium,porcine/D5W Units/hr by (HEPARIN (PORCINE)) Apheresis 30,000 unit/30mL solp route. Active cefTAZidime (TAZICEF) 1 Administer 1 0 G/5 mL injection g through vein. Active ceFAZolin (ANCEF) 1 g/5 Administer 1 0 mL injection g through vein every 8 hours. Active LEUCINE PO Take by 0 mouth. Active furosemide (LASIX PO) Take by 0 mouth. Active epoetin beta, methoxy peg Inject to 0 (MIRCERA) 50 mcg/0.3 mL area(s) as syrg directed. Active levothyroxine (SYNTHROID) Take 25 mcg 0 25 mcg tablet by mouth daily 30 minutes before breakfast. Active traZODone (DESYREL) 100 Take 100 mg 0 mg tablet by mouth at bedtime daily. Active calcium carbonate (TUMS Take by 0 PO) mouth. Active calcium carb/vitamin Take by 0 D3/vit K1 (SOFT CHEWS mouth. CALCIUM PO) Active Problems Problem Noted Date Hypocalcemia 01/01/2020 Uncontrolled type 1 diabetes with stage 3 chronic kid aki disease 03/03/2018 CKD (chronic kidney disease) stage 3, GFR 30-59 ml/mi n 03/03/2018 Diabetic polyneuropathy associated with type 1 diabet es mellitus 03/03/2018 Autonomic dysfunction 03/03/2018 Orthostatic hypertension 03/03/2018 Diabetic retinopathy without macular edema associated with diabetes 03/03/2018 mellitus due to underlying condition Encounters Care Team Description Date Type Specialty Marli Moffett RN Kidney/Pancreas Evaluation 03/15/2020 Telephone Transplant Surgery Marli Moffett RN Kidney/Pancreas Evaluation 03/14/2020 Telephone Transplant Surgery Marli Moffett RN Kidney/Pancreas Evaluation 03/11/2020 Telephone Transplant Surgery Dipika Rodriguez APRN Paperwork ([facility]) 02/29/2020 Telephone Endocrinology, [place] [facility] Marli Moffett RN Kidney/Pancreas Evaluation 01/19/2020 Telephone Transplant Surgery Dipika Rodriguez APRN Low Blood Sugar 01/15/2020 Telephone Diabetes Services Dipika Rodriguez APRN Low Blood Sugar 01/15/2020 Telephone Endocrinology, [place] [facility] Marli Moffett RN Kidney Evaluation 01/08/2020 Telephone Transplant Surgery Dipika Rodriguez APRN Type 1 diabetes mellitus with diabetic c hronic kidney disease (HCC) 01/01/2020 Hospital Lab Encounter Dipika Rodriguez APRN Uncontrolled type 1 diabetes with stage 3 chronic kidney disease (HCC) (Primary Dx); Hypocalcemia 01/01/2020 Office Visit Diabetes Services from Last 3 Months Family History Medical History Relation Name Comments None Reported Father None Reported Mother adopted parents None Reported Son Relation Name Status Comments Father Alive Mother Alive Son Alive Social History Date Tobacco Use Types Packs/Day Years Used Quit: 09/2013 Former Smoker 1 16 Smokeless Tobacco: Never Used Drinks/Week oz/Week Comments Alcohol Use No Education Answer Date Recorded What is the highest level of school you have 12th grade 05/04/2019 completed or the highest degree you hav e received? Sex Assigned at Date Recorded Not on file Industry Job Start Date Occupation Not on file Not on file Not on file Travel End Travel History Travel Start No recent travel history available. Last Filed Vital Signs Reading Time Taken Comments Vital Sign 152/81 01/01/2020 1:46 PM MEDICAL ASSISTING INSTRUCTOR Blood Pressure 74 01/01/2020 1:46 PM MEDICAL ASSISTING INSTRUCTOR Pulse 36.6 C (97.8 F) 05/04/2019 11:15 AM CDT Temperature 16 01/01/2020 1:46 PM MEDICAL ASSISTING INSTRUCTOR Respiratory Rate 100% 01/01/2020 1:46 PM MEDICAL ASSISTING INSTRUCTOR Oxygen Saturation - - Inhaled Oxygen Concentration 63 kg (139 lb) 01/01/2020 1:46 PM MEDICAL ASSISTING INSTRUCTOR Weight 157.5 cm (5' 2") 01/01/2020 1:46 PM MEDICAL ASSISTING INSTRUCTOR Height 25.42 01/01/2020 1:46 PM MEDICAL ASSISTING INSTRUCTOR Body Mass Index Plan of Treatment Health Maintenance Due Date Last Done Comments MEDICARE ANNUAL WELLNESS 1981 VISIT DILATED EYE EXAM 1999 DTAP/TDAP VACCINES (1 - 1999 Tdap) FOOT EXAM 1999 MICROALBUMIN 1999 PHYSICAL (COMPREHENSIVE) 1999 EXAM PNEUMONIA VACCINE (DM) 1999 CERVICAL CANCER SCREENING 2002 HBA1C 02/24/2020 08/25/2019, 05/15/2019, 01/23/2019, Additional history exists INFLUENZA VACCINE 06/25/2020 HEPATITIS C SCREENING Completed 05/04/2019 HIV SCREENING Completed 05/04/2019 Procedures Comments Procedure Name Priority Date/Time Associated Diag nosis HC 25-OH VITAMIN D Routine 01/01/2020 Hypocalcemi a 3:09 PM MEDICAL ASSISTING INSTRUCTOR HC COMPREHENSIVE Routine 01/01/2020 Hypocalcemia METABOLIC PANEL 3:09 PM MEDICAL ASSISTING INSTRUCTOR Uncontrolled type 1 diabetes with stage 3 chronic kidney disease (HCC) INSULIN PUMP DOWNLOAD Routine 01/01/2020 Uncontro lled type 1 diabetes with stage 3 chronic kidney disease (HCC) GLUCOSE METER DOWNLOAD Routine 01/01/2020 Uncontr olled type 1 diabetes with stage 3 chronic kidney disease (HCC) from Last 3 Months Results * 25-OH VITAMIN D (D2 + D3) (01/01/2020 3:09 PM MEDICAL ASSISTING INSTRUCTOR) Vitamin 30.1 30 - 80 NG/ML [facility] D(25-OH)Total Specimen Blood Performing Organization Address City/State/Zipcode Ph one Number [facility] [address] [place] [address] * COMPREHENSIVE METABOLIC PANEL (01/01/2020 3:09 PM MEDICAL ASSISTING INSTRUCTOR) Sodium 138 137 - 147 MMOL/L [facility] Potassium 4.0 3.5 - 5.1 MMOL/L [facility] Chloride 101 98 - 110 MMOL/L [facility] Glucose 144 (H) 70 - 100 MG/DL [facility] Blood Urea 47 (H) 7 - 25 MG/DL [facility] Nitrogen Creatinine 4.71 (H) 0.4 - 1.00 MG/DL [facility] Calcium 8.5 8.5 - 10.6 MG/DL [facility] Total Protein 6.3 6.0 - 8.0 G/DL [facility] Total Bilirubin 0.2 (L) 0.3 - 1.2 MG/DL [facility] Albumin 3.2 (L) 3.5 - 5.0 G/DL [facility] Alk Phosphatase 37 25 - 110 U/L [facility] AST (SGOT) 10 7 - 40 U/L [facility] CO2 32 (H) 21 - 30 MMOL/L [facility] ALT (SGPT) 5 (L) 7 - 56 U/L [facility] Anion Gap 5 3 - 12 [facility] eGFR Non 10 (L) >60 mL/min [facility] Comment: Samoan The eGFR is not validated f or use in drug dosing adjustments. Continue to use estimated creatinine clearance per dosing reference text. Please contact the Clinical Pharmacist for questions. eGFR 13 (L) >60 mL/min [facility] [place] Comment: The eGFR is not validated for use in drug dosing adjustments. Continue to use estimated creatinine clearance per dosing reference text. Please contact the Clinical Pharmacist for questions. Specimen Blood Performing Organization Address City/[facility] Ph one Number [facility] [address] [place] [address] * INSULIN PUMP DOWNLOAD (01/01/2020) Narrative Performed At This result has an attachment that is n ot available. Performing Organization Address City/State/[facility] * GLUCOSE METER DOWNLOAD (01/01/2020) Narrative Performed At This result has an attachment that is n ot available. Performing Organization Address [facility] from Last 3 Months Insurance Type Payer Benefit Subscriber ID Effective Phone Address Plan / Dates Group Medicare MEDICARE MEDICARE xxxxxxxxxxx 2014-P PART [place] 2018-P [place], [place] Medicare MEDICARE MEDICARE xxxxxxxxxxx 2019- TRANSPL[place] 2019- [place], [place] Advance Directives Patient Trimmer Press Clippings Explanation Type Date Recorded Advance Directive/DPOA
--- OUTSIDE RECORDS SUMMARY | 2020-03-19 05:46 | XMS REPORT | Encounter Summary ---
Author Author [facility] Organization [facility] Address Unknown Phone Unavailable Care Team Providers Care Row Boss Hoeing Name Role Phone Charles Shanita APRN PCP Kendra Aldana MD Unavailable Guera Cifuentes MD 21 Reason for Visit * Reason Comments Kidney Evaluation Encounter Details Care Team Description Date Type Department Marli Moffett RN Kidney Evaluation 01/08/[address] [phone] Social History Date Tobacco Use Types Packs/Day [...] Travel Start No recent travel history available. documented as of this encounter Functional Status Date of Assessment Functional Status Response 05/04/2019 Does the patient have a hearing impairment: No 05/04/2019 Does the patient have a visual impairment: Yes 05/04/2019 Does the patient have impaired ambulation: No 05/04/2019 Does the patient have an activity of daily living No (ADL) impairment: 05/04/2019 Does the patient have an instrumental activity of No daily living (IADL) impairment: Date of Assessment Cognitive Status Response 05/04/2019 Does the patient have a cognitive impairment: No documented as of this encounter Miscellaneous Notes * Telephone Encounter - Marli Moffett RN - 01/08/2020 12:10 PM REPRODUCTION ARTIST Called and left a message for Betsy to call me back to talk about her progress t hrough the evaluation. ODUCTION ARTIST documented in this encounter Plan of Treatment Not on filedocumented as of this encounter Visit Diagnoses Not on filedocumented in this encounter
--- OUTSIDE RECORDS SUMMARY | 2020-03-19 05:46 | XMS REPORT | Encounter Summary ---
Author Author [facility] Organization [facility] Address Unknown Phone Unavailable Care Team Providers Care Laminating Machine Operator Helper Name Role Phone CharlesShanita sanchez MARBLE SUPERVISOR PCP Kendra Aldana MD Unavailable Guera Cifuentes MD 21 Reason for Visit * Reason Comments Paperwork [facility] s Encounter Details Care Team Description Date Type Department Dipika Rodriguez APRN [address] [facility] [address] [place] [address] [phone] Paperwork ([facility]) 02/29/2020 Telephone [facility] [address] [place] [address] Social History Date Tobacco Use Types Packs/Day [...] encounter Miscellaneous Notes * Telephone Encounter - Kiara Hodges LPN - 03/03/2020 8:15 AM CDT Faxed signed and dated LMN for Insulin pump and insulin pump supplies to [facility] at [phone]. * Telephone Encounter - Kiara Hodges LPN - 02/29/2020 11:45 AM CDT Completed LMN for Insulin Pump and Insulin Pump Supplies and placed for Dipika song APRN to sign. documented in this encounter Plan of Treatment Not on filedocumented as of this encounter Visit Diagnoses Not on filedocumented in this encounter
--- OUTSIDE RECORDS SUMMARY | 2020-03-19 05:46 | XMS REPORT | Encounter Summary ---
Author Author [facility] Organization [facility] Address Unknown Phone Unavailable Care Team Providers Care Traveling Construction Superintendent Name Role Phone Charles Shanita APRN PCP Kendra Aldana MD Unavailable Guera Cifuentes MD 21 Reason for Visit * Reason Comments Kidney/Pancreas Evaluation Encounter Details Care Team Description Date Type Department Marli Moffett RN Kidney/Pancreas Evaluation 03/15/[address] [address] Social History Date Tobacco Use Types Packs/Day [...] Telephone Encounter - Marli Moffett RN - 03/15/2020 3:20 PM CDT Returned Betsy's voicemail again. She stated she has a lot of pain issues with h er lower back and shoulder. She [place] done physical therapy and [place] for [place] pain but she wanted to try CBD oil to see if that would be approved t hrough our team to use. RN stated she could use CBD oil but not the ones with TH C in them. She stated understanding and will give it a try. documented in this encounter Plan of Treatment Not on filedocumented as of this encounter Visit Diagnoses Not on filedocumented in this encounter
--- OUTSIDE RECORDS SUMMARY | 2020-03-19 05:46 | XMS REPORT | Encounter Summary ---
Author Author [facility] Organization [facility] Address Unknown Phone Unavailable Care Team Providers Care Ditto Machine Operator Name Role Phone CharlesShanita sanchez SCIENTIST PCP Kendra Aldana MD Unavailable Guera Cifuentes MD 21 Reason for Visit * Reason Comments Diabetes Encounter Details Care Team Description Date Type Department Dipika Rodriguez APRN [address] [facility] [address] [place] [address] Uncontrolled type 1 diabetes with stage 3 chronic kidney disease (HCC) (Primary Dx); Hypocalcemia 01/01/2020 Office Visit The [facility] [address] [address] Social History Date Tobacco Use Types Packs/Day [...] history available. documented as of this encounter Last Filed Vital Signs Reading Time Taken Comments Vital Sign 152/81 01/01/2020 1:46 PM CARGO VESSEL STEWARDESS Blood Pressure 74 01/01/2020 1:46 PM CARGO VESSEL STEWARDESS Pulse - - Temperature 16 01/01/2020 1:46 PM CARGO VESSEL STEWARDESS Respiratory Rate 100% 01/01/2020 1:46 PM CARGO VESSEL STEWARDESS Oxygen Saturation - - Inhaled Oxygen Concentration 63 kg (139 lb) 01/01/2020 1:46 PM CARGO VESSEL STEWARDESS Weight 157.5 cm (5' 2") 01/01/2020 1:46 PM CARGO VESSEL STEWARDESS Height 25.42 01/01/2020 1:46 PM CARGO VESSEL STEWARDESS Body Mass Index documented in this encounter Functional Status Date of Assessment [...] impairment: No documented as of this encounter Patient Instructions * Patient Instructions* Dipika Rodriguez APRN - 01/01/2020 1:30 PM CARGO VESSEL STEWARDESS It was nice to see you today! Goals we discussed today: Use temp basal at 140% during dialysis Once you change to the 1.5 dialysis solution you can use a temp basal at 110% Please contact [facility] for any questions or abnorma l glucose values (above 300 or less than 70 repeatedly). [phone] My nurse, Chikis, can be reached at [phone] Helpful Resources: Books - Bright Spots and [place] by Julio Cesar Hernandez, free online download, paper back $6 .42, tere $1.99 - Diabetes Friendly Table (cookbook) by [employer] [place] and [facility] MS RD Alycia CHAN Online: - Stockpile, learn about what's new in diabetes, sign up for their weekly caro il - Diabetes.org, the [place] [employer] Association's website is full of great inf ormation and resources - TapFunder, online cooking class, options $10/ month or $50/ 60 day course Health goals for a person with diabetes to avoid complications are: Check your FingerStick blood glucose: Each time you take medications for your g lucose, goals are: Fasting and pre-meal glucose: 70-130 mg/dl Bedtime blood glucose: 90-180 mg/dl LDL Cholesterol: <100 mg/dl Triglycerides: <150 mg/dl HDL >40 for men, >50 for women Blood pressure: Less than 130/90 mm HG Maintain a Healthy Weight , Exercise: 30 minutes 5 times per week Foot care: Take good care of your feet. Never cut your nails close to the tips of the toes. Promptly call your doctor if you have an infection, ulcer or cut a nywhere on your feet. Wear shoes with a wide toe box and that fit comfortably. Avoid walking barefoot. Your recent lab values: Glucose, POC Date/Time Value Ref Range Status 05/15/2019 198 Final Glucose POC Date/Time Value Ref Range Status 08/25/2019 197 (A) 65 - 110 mg/dL Final No results found for: CHOL, HDL, LDL No results found for: TRIG Diabetes Support Group Monthly DM Support Group facilitated by UDSTIN. There is no fee or Registration required for attendance. Meets the first Saturday of each month from 6-7:30pm at the [facility], [address] [place] [address], [address], [place] [address]. [facility] Diabetes Classes and Education Opportunities To schedule Diabetes Education please call , Option 3 Contact your insurance company to determine coverage for diabetes education. O VESSEL STEWARDESS documented in this encounter Progress Notes * Dipika Rodriguez APRN - 01/01/2020 1:30 PM CARGO VESSEL STEWARDESS Date of Service: 01/01/2020 Subjective: Betsy Telles is a 39 y.o. female presented to the diabetes clinic today f or ongoing evaluation and management of type 1 diabetes. She was last seen by me in April [address] Baeza in September,. She also has autonomic failure and symptomatic orthostatic hypotension. She is under the primary care of Shanita Holland. She also has history of diabetic retinopathy and ESRD she follows with Nephrolog y in [place] with Dr. Guera Roberts. She is currently working on getting a kidn ey/ pancrease transplant. She met with our transplant team May 04, 2019. She is working on all the pre-steps needed to be a candidate. She also struggles with memory issues Also, went into DKA in September,, treated in [place], [place]. History of Present Illness Diabetes mellitus type 1 Diabetes was diagnosed at age 7, previously followed by primary care physician. She has been on an insulin pump since 2013. She currently has Medtronic 630G, w ithout CGM. She has been using NovoLog in the pump. Since her last visit she has started using a Dexcom CGM and has started peritone al dialysis, currently using 2.5 dextrose solution, this will change next week t o 1.5. She runs her dialysis from 10 PM to 6:30 AM, she increases her basal 1 h our before and continues 1 hour after at 160% temp basal. She continues to have overnight global hyperglycemia into the mid to upper 200s She is now changing sites every 4 days Since starting dialysis has been having low calcium levels, has been taking tums 1000 mg QID, viactive calcium chews, and having 3-4 servings of dairy/ day. She does have a hx of broken fingers and toes. She denies any history of coronary artery disease or strokes, she follows with a baby attendant in [place], denies any history of heart failure. She has been following with nephrology as well for ESRD. She also has Neuropathy at both silva ds and feet, diabetic retinopathy, her last eye exam was October 2019. Last de ntal exam December 31, 2019previously not seen for many years, she needs to henry ve a few tooth extractions prior to transplant. Pump Teacher Learning Disabled: Medtronic 630G without CGM Infusion Set: Bledsoe Insulin type Novolog Insulin Time: 4 hours Insulin Pump Settings Time Basal Rate ISF I:C Ratio Time Basal Rate ISF I:C Ratio MN 0.35 --> 0.425 77 25 noon 0100 1330 70 16 0200 1400 0300 1500 0400 1600 0500 1700 0600 1800 0700 0.325 1900 0800 2000 0900 2100 1000 2200 0.375 --> 0.45 1100 0.4 2300 1200 MN BG Targets: 100-120 Basal Conversion: 10 units Average B 102 BG readings: 3.6/day Reading above target: 64% Readings below target: 0% TDD: 20.86 per day Average Basal 10.22 units (49%) Average Bolus 10.65 units (51%) Review of Systems Comprehensive 14 point review of system was obtained from patient today and was positive for heat sensitivity, cold sensitivity, fatigue, weakness, dry skin, sk in itching, dental infection, neck stiffness, shortness of breath, abdominal aviation 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 TO LIVE" Medical History: Diagnosis Date Anemia Diabetes mellitus type 1 (HCC) Generalized headaches IBS (irritable bowel syndrome) Kidney failure Lymphoma (HCC) Neuropathy Restless leg syndrome Surgical History: Procedure Laterality Date TUBAL LIGATION Bilateral Family History Problem Relation Age of Onset None Reported Son None Reported Mother adopted parents None Reported Father Social History Socioeconomic History Marital status: Spouse name: Not on file Number of children: 1 Years of education: 12th grade Highest education level: 12th grade Occupational History Occupation: disabled Tobacco Use Smoking status: Former Smoker Packs/day: 1.00 Years: 16.00 Pack years: 16.00 Last attempt to quit: 09/2013 Years since quittin.2 Smokeless tobacco: Never Used Substance and Sexual Activity Alcohol use: No Drug use: No Sexual activity: Yes Partners: Male Other Topics Concern Service Not Asked Blood Transfusions No Caffeine Concern Not Asked Occupational Exposure Not Asked Hobby Hazards Not Asked Sleep Concern Not Asked Stress Concern Not Asked Weight Concern Not Asked Special Diet Not Asked Back Care Not Asked Exercise No Bike Helmet Not Asked Seat Belt Not Asked Self-Exams Not Asked Social History Narrative Not on file Objective: aspirin/acetaminophen/caffeine (EXCEDRIN MIGRAINE) 250/250/65 mg tab Take 1 tablet by mouth every 8 hours as needed. blood sugar diagnostic test strip Use one strip as directed four times daily . Please fill with only BGStar Blood Glucose Test Strips butalbital/acetaminophen/caffeine(+) (FIORICET) 50/325/40 mg tablet Take 1 t ablet by mouth every 4 hours as needed for Headache. calcitriol (ROCALTROL) 0.25 mcg capsule Take 0.25 mcg by mouth daily. calcium carb/vitamin D3/vit K1 (SOFT CHEWS CALCIUM PO) Take by mouth. calcium carbonate (TUMS PO) Take by mouth. ceFAZolin (ANCEF) 1 g/5 mL injection Administer 1 g through vein every 8 [place] rs. cefTAZidime (TAZICEF) 1 G/5 mL injection Administer 1 g through vein. cholecalciferol (VITAMIN D-3) 400 unit tab tablet Take 500 Units by mouth da jessee. citalopram (CELEXA) 20 mg tablet Take 20 mg by mouth daily. cloNIDine (CATAPRESS) 0.1 mg tablet Take 0.1 mg by mouth daily as needed (BP >160/90). CONTOUR NEXT TEST STRIPS test strip Test up to 8 times per day. cyanocobalamin (vitamin B-12) (VITAMIN B-12) 5,[address] 5,000 mcg under tongue daily. darbepoetin goyo (ARANESP) 100 mcg/0.5 mL syrg Inject 40 mcg under the skin every 21 days. divalproex (DEPAKOTE ER) 500 mg ER tablet Take 750 mg by mouth daily. Take w ith food. epoetin beta, methoxy peg (MIRCERA) 50 mcg/0.3 mL syrg Inject to area(s) as directed. ferrous sulfate (FEOSOL, FEROSUL) 325 mg (65 mg iron) tablet Take 325 mg by mouth daily. Take on an empty stomach at least 1 hour before or 2 hours after fo od. fexofenadine(+) (EDWIN) 60 mg tablet Take 60 mg by mouth daily. fluticasone (FLONASE) 50 mcg/actuation nasal spray Apply to each nostril as directed daily. Shake bottle gently before using. furosemide (LASIX PO) Take by mouth. heparin sodium,porcine/D5W (HEPARIN (PORCINE)) 30,000 unit/30mL solp 0-4,000 Units/hr by Apheresis route. hyoscyamine sulfate (LEVSIN) 0.125 mg tablet Take 125 mcg by mouth every 4 h ours as needed for Cramps. insulin aspart U-100 (NOVOLOG) 100 unit/mL injection Up to 30 units/ day In dications: type 1 diabetes mellitus insulin glargine (LANTUS SOLOSTAR, BASAGLAR) 100 unit/mL (3 mL) injection PE N Take 8 units once every 24 hours for pump failure Indications: type 1 diabete s mellitus LEUCINE PO Take by mouth. levothyroxine (SYNTHROID) 25 mcg tablet Take 25 mcg by mouth daily 30 minute s before breakfast. midodrine (PROAMATINE) 2.5 mg tablet Take 2.5 mg by mouth daily as needed (B P<100/70). norgestimate/ethinyl estradiol(+) (ORTHO TRI-CYCLEN; TRI-SPRINTEC) .18/.215/ .25-35 mg-mcg (28) tablet Take 1 tablet by mouth daily. ondansetron (ZOFRAN) 4 mg tablet Take 4 mg by mouth every 8 hours as needed for Nausea or Vomiting. oxymetazoline (AFRIN) 0.05 % nasal spray Apply 2 sprays to each nostril as d irected twice daily as needed. propranolol (INDERAL) 10 mg tablet Take 10 mg by mouth twice daily. rOPINIRole (REQUIP) 0.25 mg tablet Take 0.5 mg by mouth daily. sodium bicarbonate 325 mg tablet Take 1,300 mg by mouth twice daily. traMADol (ULTRAM) 50 mg tablet Take 25 mg by mouth at bedtime daily. traZODone (DESYREL) 100 mg tablet Take 100 mg by mouth at bedtime daily. vitamin E 400 unit capsule Take 400 Units by mouth daily. vitamins, w/iron & folate 65/1 mg tab Take 1 tablet by mouth twice daily. There were no vitals filed for this visit. There is no height or weight on file to calculate BMI. Physical Exam Constitutional: Appearance: She is well-developed. HENT: Head: Normocephalic and atraumatic. Mouth/Throat: Dentition: Abnormal dentition (multiple missing teeth). Eyes: Pupils: Pupils are equal, round, and reactive to light. Neck: Musculoskeletal: Normal range of motion. Cardiovascular: Rate and Rhythm: Regular rhythm. Heart sounds: Normal heart sounds. Pulmonary: Effort: Pulmonary effort is normal. Breath sounds: Normal breath sounds. Musculoskeletal: Normal range of motion. Skin: General: Skin is warm and dry. Neurological: Mental Status: She is alert and oriented to person, place, and time. Psychiatric: Behavior: Behavior normal. Thought Content: Thought content normal. Assessment and Plan: Diabetes mellitus type 1, uncontrolled Hemoglobin A1c in the clinic today was 6.9%-- unreliable due to dialysis Random glucose of 143 mg/dL, target hemoglobin A1c around 7.5% without hypogl ycemia. She is currently on insulin pump with the above settings. Plan Insulin pump download was reviewed today Most nights glucose runs 200-250 even with increased basal of 160% We've increased her overnight basals by 20%, next week dialysis solution will change to 1.5 dextrose. At that time use 110% temp basal. Continue current I:C ratios Continue Dexcom Pt is due for pump upgrade in 2 years, would benefit from hybrid closed loop system Hypocalcemia Pt reports having low Ca+ since starting dialysis, Also reports frequent falls, has had broken fingers and toes, Currently taking tums 1000 mg QID viactive calcium chews, and eating 3-4 serv ings of dairy/ day Pt also with a hx of low vitamin D Plan: Check Vitamin D and CMP Diabetic retinopathy History of left eye hemorrhage Cataracts Following with ophthalmology Last seen Mar, 2019 Chronic kidney disease Follows with Nephrology, Dr. Guera Roberts, in [place], [place] Is being worked up for a kidney/ pancrease transplant at [facility] Total time 40 minutes. Estimated counseling time 30 minutes. Counseled patient regarding diabetes and hypertension. Return to clinic in 3 months with MD. Patient Instructions It was nice to see you today! Goals we discussed today: Use temp basal at 140% during dialysis Once you change to the 1.5 dialysis solution you can use a temp basal at 110% Please contact [facility] for any questions or abnorma l glucose values (above 300 or less than 70 repeatedly). [phone] My nurse, Chikis, can be reached at [phone] Helpful Resources: Books - Bright Spots and [place] by Julio Cesar Hernandez, free online download, paper back $6 .42, tere $1.99 - Diabetes Friendly Table (cookbook) by [employer] [place] and [facility] MS RD CDEAlycia Online: - Stockpile, learn about what's new in diabetes, sign up for their weekly caro il - Diabetes.org, the [place] [employer]'s website is full of great inf ormation and resources - TapFunder, online cooking class, options $10/ month or $50/ 60 day course Health goals for a person with diabetes to avoid complications are: Check your FingerStick blood glucose: Each time you take medications for your g lucose, goals are: Fasting and pre-meal glucose: 70-130 mg/dl Bedtime blood glucose: 90-180 mg/dl LDL Cholesterol: <100 mg/dl Triglycerides: <150 mg/dl HDL >40 for men, >50 for women Blood pressure: Less than 130/90 mm HG Maintain a Healthy Weight , Exercise: 30 minutes 5 times per week Foot care: Take good care of your feet. Never cut your nails close to the tips of the toes. Promptly call your doctor if you have an infection, ulcer or cut a nywhere on your feet. Wear shoes with a wide toe box and that fit comfortably. Avoid walking barefoot. Your recent lab values: Glucose, POC Date/Time Value Ref Range Status 05/15/2019 198 Final Glucose POC Date/Time Value Ref Range Status 08/25/2019 197 (A) 65 - 110 mg/dL Final No results found for: CHOL, HDL, LDL No results found for: TRIG Diabetes Support Group Monthly DM Support Group facilitated by DUSTIN. There is no fee or Registration required for attendance. Meets the first Saturday of each month from 6-7:30pm at the [facility], [address] [place] [address], [address], [place] [address]. [facility] Diabetes Classes and Education Opportunities To schedule Diabetes Education please call , Option 3 Contact your insurance company to determine coverage for diabetes education. Future Appointments Date Time Provider Department Center 05/17/2020 1:00 PM Deisy Baeza MD [facility] O VESSEL STEWARDESS documented in this encounter Plan of Treatment Order Schedule Name Type Priority Associated Diag noses Ordered: 01/01/2020 POC GLUCOSE QUANTITATIVE Point of Care Routine Uncon trolled type 1 BLOOD Testing diabetes with stage 3 chronic kidney disease (HCC) Ordered: 01/01/2020 POC HEMOGLOBIN A1C Point of Care Routine Uncontrolle d type 1 Testing diabetes with stage 3 chronic kidney disease (HCC) documented as of this encounter Procedures Comments Procedure Name Priority Date/Time Associated Diag nosis INSULIN PUMP DOWNLOAD Routine 01/01/2020 Uncontro lled type 1 diabetes with stage 3 chronic kidney disease (HCC) GLUCOSE METER DOWNLOAD Routine 01/01/2020 Uncontr olled type 1 diabetes with stage 3 chronic kidney disease (HCC) documented in this encounter Results * COMPREHENSIVE METABOLIC PANEL (01/01/2020 3:09 PM CARGO VESSEL STEWARDESS) Sodium 138 137 - 147 MMOL/L [facility] [...] (L) >60 mL/min [facility] Comment: [place] The eGFR is not validated f or use in drug dosing adjustments. Continue to use estimated creatinine clearance per dosing reference text. Please contact the Clinical Pharmacist for questions. eGFR 13 (L) >60 mL/min [facility] [place] Comment: The eGFR is not validated for use in drug dosing adjustments. Continue to use estimated creatinine clearance per dosing reference text. Please contact the Clinical Pharmacist for questions. Specimen Blood Performing Organization Address [facility] [address] [place] [address] * 25-OH VITAMIN D (D2 + D3) (01/01/2020 3:09 PM CARGO VESSEL STEWARDESS) Vitamin 30.1 30 - 80 NG/ML [facility] D(25-OH)Total Specimen Blood Performing Organization Address [facility] [address] [place] [address] documented in this encounter Visit Diagnoses Diagnosis Hypocalcemia Uncontrolled type 1 diabetes with stage 3 chronic kidney disease (HCC) Type I (juvenile type) diabetes mellitu s with renal manifestations, uncontrolled documented in this encounter
--- OUTSIDE RECORDS SUMMARY | 2020-03-19 05:46 | XMS REPORT | Encounter Summary ---
Author Author [facility] Organization [facility] Address Unknown Phone Unavailable Care Team Providers Care Sand Cleaning Machine Operator Name Role Phone Charles Shanita APRN PCP Kendra Aldana MD Unavailable Guera Cifuentes MD 21 Reason for Visit * Reason Comments Kidney/Pancreas Evaluation Encounter Details Care Team Description Date Type Department Marli Moffett RN Kidney/Pancreas Evaluation 03/11/2020 Telephone [address] [address] Social History Date Tobacco Use [...] Telephone Encounter - Marli Moffett RN - 03/11/2020 4:13 PM CDT Returned Betsy's call and left a voicemail with contact information so she can r eturn my message. She was reaching out about pain management questions but would explain when I called her. 03/11/2020 4:37 PM Received another message from Betsy. Called her back and left a message detailin g current situation leaving us calling from blocked numbers. Her phone sends my calls directly to voicemail so she needed to unblock the feature on her phone to block blocked calls. Left contact information for a return call. documented in this encounter Plan of Treatment Not on filedocumented as of this encounter Visit Diagnoses Not on filedocumented in this encounter
--- OUTSIDE RECORDS SUMMARY | 2020-03-19 05:46 | XMS REPORT | Encounter Summary ---
Author Author [facility] Organization [facility] Address Unknown Phone Unavailable Care Team Providers Care Watch Leader Name Role Phone CharlesShanita sanchez ROLLER PRESSER OPERATOR PCP Kendra Aldana MD Unavailable Guera Cifuentes MD 21 Encounter Details Care Team Description Date Type Department Dipika Rodriguez APRN [address] Ortho[facility] [address] [place] [address] [phone] Type 1 diabetes mellitus with diabetic c hronic kidney disease (HCC) 01/01/2020 [facility] [address] [address] Social History Date Tobacco Use Types Packs/Day [...] impairment: No documented as of this encounter Medications at Time of Discharge Start Date End Date Medication Sig Dispensed Refills aspirin/acetaminophen/caf Take 1 tablet 0 feine (EXCEDRIN MIGRAINE) by mouth 250/250/65 mg tab every 8 hours as needed. 10/20/2018 blood sugar diagnostic Use one strip 360 strip 3 test strip as directed four times daily. Please fill with only [facility]Star Blood Glucose Test Strips butalbital/acetaminophen/ Take 1 tablet 0 caffeine(+) (FIORICET) by mouth 50/325/40 mg tablet every 4 hours as needed for Headache. calcitriol (ROCALTROL) Take 0.25 mcg 0 0.25 mcg capsule by mouth daily. calcium carb/vitamin Take by 0 D3/vit K1 (SOFT CHEWS mouth. CALCIUM PO) calcium carbonate (TUMS Take by 0 PO) mouth. ceFAZolin (ANCEF) 1 g/5 Administer 1 0 mL injection g through vein every 8 hours. cefTAZidime (TAZICEF) 1 Administer 1 0 G/5 mL injection g through vein. cholecalciferol (VITAMIN Take 500 0 D-3) 400 unit tab tablet Units by mouth daily. citalopram (CELEXA) 20 mg Take 20 mg by 0 tablet mouth daily. cloNIDine (CATAPRESS) 0.1 Take 0.1 mg 0 mg tablet by mouth daily as needed (BP >160/90). 07/04/2018 CONTOUR NEXT TEST STRIPS Test up to 8 700 strip 3 test strip times per day. cyanocobalamin (vitamin Place 5,000 0 B-12) (VITAMIN B-12) mcg under 5,000 mcg subl tongue daily. darbepoetin goyo Inject 40 mcg 0 (ARANESP) 100 mcg/0.5 mL under the syrg skin every 21 days. divalproex (DEPAKOTE ER) Take 750 mg 0 500 mg ER tablet by mouth daily. Take with food. epoetin beta, methoxy peg Inject to 0 (MIRCERA) 50 mcg/0.3 mL area(s) as syrg directed. ferrous sulfate (FEOSOL, Take 325 mg 0 FEROSUL) 325 mg (65 mg by mouth iron) tablet daily. Take on an empty stomach at least 1 hour before or 2 hours after food. fexofenadine(+) (EDWNI) Take 60 mg by 0 60 mg tablet mouth daily. fluticasone (FLONASE) 50 Apply to 0 mcg/actuation nasal spray each nostril as directed daily. Shake bottle gently before using. furosemide (LASIX PO) Take by 0 mouth. heparin 0-4,000 0 sodium,porcine/D5W Units/hr by (HEPARIN (PORCINE)) Apheresis 30,000 unit/30mL solp route. hyoscyamine sulfate Take 125 mcg 0 (LEVSIN) 0.125 mg tablet by mouth every 4 hours as needed for Cramps. 05/18/2019 insulin aspart U-100 Up to 30 30 mL 3 (NOVOLOG) 100 unit/mL units/ day injectionIndications: Indications: type 1 diabetes mellitus type 1 diabetes mellitus 05/18/2019 insulin glargine (LANTUS Take 8 units 15 mL 3 SOLOSTAR, BASAGLAR) 100 once every 24 unit/mL (3 mL) injection hours for PENIndications: type 1 pump failure diabetes mellitus Indications: type 1 diabetes mellitus LEUCINE PO Take by 0 mouth. levothyroxine (SYNTHROID) Take 25 mcg 0 25 mcg tablet by mouth daily 30 minutes before breakfast. midodrine (PROAMATINE) Take 2.5 mg 0 2.5 mg tablet by mouth daily as needed (BP<100/70). norgestimate/ethinyl Take 1 tablet 0 estradiol(+) (ORTHO by mouth TRI-CYCLEN; TRI-SPRINTEC) daily. .18/.215/.25-35 mg-mcg (28) tablet ondansetron (ZOFRAN) 4 mg Take 4 mg by 0 tablet mouth every 8 hours as needed for Nausea or Vomiting. oxymetazoline (AFRIN) Apply 2 0 0.05 % nasal spray sprays to each nostril as directed twice daily as needed. propranolol (INDERAL) 10 Take 10 mg by 0 mg tablet mouth twice daily. rOPINIRole (REQUIP) 0.25 Take 0.5 mg 0 mg tablet by mouth daily. sodium bicarbonate 325 mg Take 1,300 mg 0 tablet by mouth twice daily. traMADol (ULTRAM) 50 mg Take 25 mg by 0 tablet mouth at bedtime daily. traZODone (DESYREL) 100 Take 100 mg 0 mg tablet by mouth at bedtime daily. vitamin E 400 unit Take 400 0 capsule Units by mouth daily. vitamins, w/iron Take 1 tablet 0 & folate 65/1 mg tab by mouth twice daily. documented as of this encounter Plan of Treatment Not on filedocumented as of this encounter Procedures Comments Procedure Name Priority Date/Time Associated Diag nosis HC 25-OH VITAMIN D Routine 01/01/2020 Hypocalcemi a 3:09 PM WELT CUTTER HC COMPREHENSIVE Routine 01/01/2020 Hypocalcemia METABOLIC PANEL 3:09 PM WELT CUTTER Uncontrolled type 1 diabetes with stage 3 chronic kidney disease (HCC) documented in this encounter Results * 25-OH VITAMIN D (D2 + D3) (01/01/2020 3:09 PM WELT CUTTER) Vitamin 30.1 30 - 80 NG/ML [facility] D(25-OH)Total Specimen Blood Performing Organization Address City/State/Zipcode Ph one Number [facility] [address] [place] [address] * COMPREHENSIVE METABOLIC PANEL (01/01/2020 3:09 PM WELT CUTTER) Sodium 138 137 - 147 MMOL/L [facility] [...] (L) >60 mL/min [facility] Comment: [place] The eGFR is not validated f or use in drug dosing adjustments. Continue to use estimated creatinine clearance per dosing reference text. Please contact the Clinical Pharmacist for questions. eGFR 13 (L) >60 mL/min [facility] [place] Comment: The eGFR is not validated for use in drug dosing adjustments. Continue to use estimated creatinine clearance per dosing reference text. Please contact the Clinical Pharmacist for questions. Specimen Blood Performing Organization Address City/State/Zipcode Ph one Number [facility] [address] [place] [address] documented in this encounter Visit Diagnoses Diagnosis Hypocalcemia Uncontrolled type 1 diabetes with stage 3 chronic kidney disease (HCC) Type I (juvenile type) diabetes mellitu s with renal manifestations, uncontrolled documented in this encounter
--- OUTSIDE RECORDS SUMMARY | 2020-03-19 05:46 | XMS REPORT | Encounter Summary ---
Author Author [facility] Organization [facility] Address Unknown Phone Unavailable Care Team Providers Care District Manager Name Role Phone CharlesShanita sanchez ELY PCP Kendra Aldana MD Unavailable Guera Cifuentes MD 21 Reason for Visit * Reason Comments Low Blood Sugar Encounter Details Care Team Description Date Type Department Dipika Rodriguez APRN [address] Ortho[facility]Med [facility] [address] [place] [address] [phone] Low Blood Sugar 01/15/2020 Telephone [facility] [address] [place] [address] Social History Date Tobacco Use Types Packs/Day [...] Telephone Encounter - Kiara Hodges LPN - 01/15/2020 2:28 PM ANESTHETIC ASSISTANT Patient states that since her last visit with Dipika she has been having issues with her blood sugars running between 70 and 32 almost every day. She is asking what adjustments she should be making. THETIC ASSISTANT documented in this encounter Plan of Treatment Not on filedocumented as of this encounter Visit Diagnoses Not on filedocumented in this encounter
--- OUTSIDE RECORDS SUMMARY | 2020-03-19 05:46 | XMS REPORT | Encounter Summary ---
Author Author [facility] Organization [facility] Address Unknown Phone Unavailable Care Team Providers Care On Car Supervisor Name Role Phone Shanita Soto APRN PCP Kendra Aldana MD Unavailable Guera Cifuentes MD 21 Reason for Visit * Reason Comments Kidney/Pancreas Evaluation Encounter Details Care Team Description Date Type Department Marli Moffett RN Kidney/Pancreas Evaluation 01/19/[address] [address] Social History Date Tobacco Use [...] Telephone Encounter - Marli Moffett RN - 01/19/2020 11:48 AM HEBER Meyer called returning my phone call. She stated that she had been working with her dentist in her community called [facility] and they offered to obinna tami the dental work for $35/ tooth. She could not afford that amount for her teeth being pulled and they offered no assistance with dentures. She finally heard raj wooten from a group called [facility] and they accepted her application . She is waiting to hear back from them on what dentist is going to do all her d ental work for free and provide assistance with the cost of dentures. She also w as able to find a support person. She has a friend that lives in [place] and is willing to come up and live with her for a month to help her post transplant. S he is still dialyzing through [facility] in [place] doing PD. It is going well. Melissa e also just upgraded to a newer Dexcom pump and it is going well as well. FREDY fournier ised with this information we will just wait for her to complete her dental work . Once it is done then we will just bring her back into clinic for her annual up date in order to list her. She could bring her friend with her to this appointme nt to complete the SW eval. She stated understanding. RN gave her my direct numb er so she can reach me easily in the future. EAR RADIATION ENGINEER documented in this encounter Plan of Treatment Not on filedocumented as of this encounter Visit Diagnoses Not on filedocumented in this encounter
--- OUTSIDE RECORDS SUMMARY | 2020-03-19 05:46 | XMS REPORT | Encounter Summary ---
Author Author [facility] Organization [facility] Address Unknown Phone Unavailable Care Team Providers Care Coring Machine Operator Name Role Phone CharlesShanita sanchez ELY PCP Kendra Aldana MD Unavailable Guera Cifuentes MD 21 Reason for Visit * Reason Comments Low Blood Sugar Encounter Details Care Team Description Date Type Department Dipika Rodriguez APRN [address] [facility] Ortho/Med [place] [address] [place] [address] Low Blood Sugar 01/15/2020 Telephone [facility] [address] [place] [address] Social History Date Tobacco Use Types Packs/Day [...] encounter Miscellaneous Notes * Telephone Encounter - Dipika Rodriguez APRN - 01/15/2020 4:57 PM OB/GYN DOCTOR Returned pt's call. Reports low BG throughout the day. During peritoneal dialysi s with 1.5 solution she's using 110% temp basal, with 3.5 solution she's using 1 40% temp basal Plan: Decrease Basal settings by 20%, if she continues to run low during the day may use temp basal at 20% less. During peritoneal dialysis 1.5 solution do not use temp basal, with 3.5 solution use 120% temp basal Pump Retail Sales Merchandiser: [employer] 630G without CGM Infusion Set: Micheal Insulin type Novolog Insulin Time: 4 hours Insulin Pump Settings Time Basal Rate ISF I:C Ratio Time Basal Rate ISF I:C Ratio MN 0.425--> 0.35 77 25 noon 0100 1330 70 16 0200 1400 0300 1500 0400 1600 0500 1700 0600 1800 0700 0.325--> 0.25 1900 0800 2000 0900 2100 1000 2200 0.45 --> 0.375 1100 0.4 --> 0.3 2300 1200 [place] /GYN DOCTOR documented in this encounter Plan of Treatment Not on filedocumented as of this encounter Visit Diagnoses Not on filedocumented in this encounter
--- OUTSIDE RECORDS SUMMARY | 2020-03-19 05:46 | XMS REPORT | Encounter Summary ---
Author Author [facility] Organization [facility] Address Unknown Phone Unavailable Care Team Providers Care Tax Intern Name Role Phone CharlesShanita ELY PCP Kendra Aldana MD Unavailable Guera Cifuentes MD 21 Reason for Visit * Reason Comments Other Trazadone-blood sugar probl ems Encounter Details Care Team Description Date Type Department eDisy Baeza MD [address] Ortho/Med Pav[facility] [address] [place] [address] [phone] Other (Trazadone-blood sugar problems) 10/15/2019 Telephone [facility] [address] [place] [address] Social History Date Tobacco Use Types Packs/Day [...] encounter Miscellaneous Notes * Telephone Encounter - Angie Joe RN - 10/15/2019 2:20 PM WARP SPINNER Called pt to relay provider recommendations Pt's roommate is driving her to ER SPINNER * Telephone Encounter - Deisy Baeza MD - 10/15/2019 2:16 PM WARP SPINNER I agree if she is vomiting she should proceed to the ER for evaluation, not urge nt care. Either someone drive her or call 911. SPINNER * Telephone Encounter - Angie Joe RN - 10/15/2019 1:53 PM WARP SPINNER Pt called States PCP started her on Trazadone 50mg daily yesterday Pt took first dose yesterday evening at 2130 Started to feel poorly around 2 hours after taking new medication Checked blood sugar at 2330, read [facility] Every 2 hours since then she has been checking it still says [facility] Started at 2330 last night, pt has given herself 10 units novolog bolus through pump It has still read [facility] all night and throughout the day today Pt reports she feels "cruddy feeling," throwing up on and off all day, urine odo r, excessive thirst Medications given: RN asked if patient has changed her infusion site Pt changed infusion site about 30 minutes ago (1330) Would like advisement on what to do next RN asked if she had ketone strips at home, she does not RN advised it might be time to head to urgent care or ER if able to drive Pt does not think she can drive, but states she has roommate that can drive her Routing to Dr. Baeza for advisement SPINNER documented in this encounter Plan of Treatment Not on filedocumented as of this encounter Visit Diagnoses Not on filedocumented in this encounter
--- OUTSIDE RECORDS SUMMARY | 2020-03-19 05:46 | XMS REPORT | Encounter Summary ---
Author Author [facility] Organization [facility] Address Unknown Phone Unavailable Care Team Providers Care Nascar Racer Name Role Phone Charles Shanita APRN PCP Kendra Aldana MD Unavailable Guera Cifuentes MD 21 Reason for Visit * Reason Comments Kidney/Pancreas Evaluation Encounter Details Care Team Description Date Type Department Marli Moffett RN Kidney/Pancreas Evaluation 03/14/[address] [address] Social History Date Tobacco Use [...] Telephone Encounter - Marli Moffett RN - 03/14/2020 1:07 PM CDT Returned message and left a voicemail with contact information to return my call . documented in this encounter Plan of Treatment Not on filedocumented as of this encounter Visit Diagnoses Not on filedocumented in this encounter
--- OUTSIDE RECORDS SUMMARY | 2020-03-19 05:49 | XMS REPORT ---
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 41671208 Problem Chronic kidney disease, unspecified N18.9 Active 613945829 Problem Anemia, unspecified D64.9 Active 606388998 Problem Irritable bowel K58.9 Active 1074 3008 Problem Type 1 diabetes mellitus without complications E10 .9 Active 599424250 Problem Migraine G43.909 Active 96485853 Problem Irritable bowel syndrome with diarrhea K58.0 Active 009247635 Problem Peritoneal dialysis status Z99.2 Act moody 437506532 Problem Essential hypertension I10 Active 84802154 Problem Intractable migraine without aura and with status migr ainosus G43.011 Active 304946141 Problem Type 1 diabetes mellitus with hypoglycemia without coma E10.649 Active 83343841 Problem Type 1 diabetes mellitus with hyperglycemia E10.65 Active 00189941 Problem Dysthymia F34.1 Active 19489680 Problem Chronic kidney disease, stage 4 (severe) N18.4 Active 111924501 Problem Migraine with aura and without status migrainosu s, not intractable G43.109 Active 4508438 Problem Autonomic neuropathy G90.9 Active 230723628 Problem Type 1 diabetes mellitus with complications E10.8 Active 002693211 Problem Menorrhagia with regular cycle N92.0 Active 828605020 Problem Lymphedema I89.0 Active 288447664 Problem Claudication I73.9 Active 6098484 6 Problem Other chronic pain G89.29 Active 8 7959352 Problem Diastolic dysfunction I51.89 Active 6133897 Problem ESRF (end stage renal failure) N18.6 Active 31668390 Problem 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 Active 831231460 Problem Migraine without aura and without status migrain osus, not intractable G43.009 Active 511900895 Problem Type 1 diabetes mellitus with foot ulcer E10.621 Active [id number] Problem Low back pain M54.5 Active 425962 009 Problem Other insomnia G47.09 Active 84049 2000 Problem Restless legs G25.81 Active 563569 08 Problem Hyperthyroidism E05.90 Active 3448 6009 Problem Moderate episode of recurrent major depressive disorder F33.1 Active 914080958 Problem Primary insomnia F51.01 Active 397 2004 ALLERGIES No Information ENCOUNTERS Encounter Location Date Diagnosis [facility] [address] [facility] [id number] [address] [place] [id number] 15 Apr, 2020 [place] [address] [place] [id number] [place] [phone] 19 Feb, 2020 Migraine without aura and wi thout status migrainosus, not intractable G43.009 ; Restless legs G25.81 and Peritoneal dialysis status Z99.2 [place] [address] [facility] [id number] [address] [place] [id number] 13 Feb, 2020 Irritable bowel syndrome wit h diarrhea K58.0 [facility] [address] [facility] [id number] [address] [place] [id number] 13 Feb, 2020 Irritable bowel syndrome wit h diarrhea K58.0 [facility] [address] [facility] [id number] [address] [place] [id number] 13 Feb, 2020 [facility] [address] [facility] [id number] [address] [place] [id number] 28 Jan, 2020 Type 1 diabetes mellitus wit h foot ulcer E10.621 and Non-pressure chronic ulcer of other part of right foot limited to breakdown of skin L97.511 [facility] [address] [facility] [id number] [address] [place] [id number] 23 Jan, 2020 Type 1 diabetes mellitus wit h diabetic nephropathy E10.21 [facility] [address] [facility] [id number] [address] [place] [id number] 20 Jan, 2020 [facility] [address] [place] [id number] [address] [place] [id number] 16 Jan, 2020 Migraine without aura and wi thout status migrainosus, not intractable G43.009 and Type 1 diabetes mellitus with hypoglycemia without coma E10.649 [facility] [address] [facility] [id number] [address] [place] [id number] 11 Jan, 2020 [facility] [address] [facility] [id number] [address] [place] [id number] 10 Jan, 2020 Type 1 diabetes mellitus wit h hyperglycemia E10.65 ; Orthostatic hypotension I95.1 and Restless legs G25.81 [facility] [address] [facility] [id number] [address] [place] [address] [id number] 06 Dec, 2019 Caries K02.9 and Dental exam ination Z01.20 [place] [address] [place] [id number] [address] [place] [id number] 30 Oct, 2019 Restless legs G25.81 [place] [id number] [place] [id number] Oct, Encounter for Medicare annua l wellness exam Z00.00 ; 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 ; Migraine without aura and without status migrainosus, not intractable G43.009 ; Chronic kidney disease, stage 4 (severe) N18.4 ; Claudication I73.9 ; Peritoneal dialysis status Z99.2 ; Diastolic dysfunction I51.89 ; Primary insomnia F51.01 and Burn T30.0 [place] [address] [place] [id number] [address] [place] [id number] Sep, Moderate episode of recurren t major depressive disorder F33.1 and Primary insomnia F51.01 [place] [address] [facility] [id number] [address] [place] [id number] Aug, Hyperthyroidism E05.90 [place] [address] [place] [id number] [address] [place] [id number] May, Restless legs G25.81 [place] [address] [place] [id number] [address] [place] [id number] May, [facility] [address] [id number] [address] [place] [id number] May, [facility] [address] [id number] [address] [place] [id number] May, Type 1 diabetes mellitus wit h hypoglycemia without coma E10.649 ; ESRF (end stage renal failure) N18.6 ; Leg cramps R25.2 ; Restless legs G25.81 and Low back pain M54.5 [facility] [address] [id number] [address] [place] [id number] Apr, Low back pain M54.5 [facility] [address] [id number] [address] [place] [id number] Apr, [facility] [address] [id number] [address] [place] [id number] March, Low back pain M54.5 [facility] [address] [id number] [address] [place] [id number] March, [facility] [address] [id number] [address] [place] [id number] Feb, Low back pain M54.5 [facility] [address] [id number] [address] [place] [phone] Jan, Low back pain M54.5 [facility] [address] [id number] [address] [place] [id number] Jan, [facility] [address] [id number] [place] [id number] Jan, [facility] [address] [id number] [address] [place] [id number] Jan, [facility] [address] [id number] [address] [place] [id number] Dec, Type 1 diabetes mellitus wit h hypoglycemia without coma E10.649 and Low back pain M54.5 [facility] [address] [id number] 21 Dec, 2018 Low back pain M54.5 [place] [address] [address] 13 Dec, 2018 Diastolic dysfunction I51.89 ; Essential hypertension I10 and Chronic kidney disease, stage 4 (severe) N18.4 [place] [address] [id number] 11 Dec, 2018 RUQ abdominal pain R10.11 ; Type 1 diabetes mellitus without complications E10.9 ; Therapeutic drug monitoring Z51.81 ; Migraine with aura and without status migrainosus, not intractable G43.109 and Intractable migraine without aura and with status migrainosus G43.011 [place] [address] [address] Nov, Low back pain M54.5 [place] [address] [address] Nov, [place] [address] [address] Nov, Intractable migraine without aura and with status migrainosus G43.011 ; Lymphedema I89.0 ; Pain in right shoulder M25.511 ; Other chronic pain G89.29 ; Irritable bowel syndrome with diarrhea K58.0 ; Type 1 diabetes mellitus without complications E10.9 and Essential hypertension I10 [place] [address] [address] Oct, Low back pain M54.5 [place] [address] [address] Oct, [address] [address] Oct, Orthostatic hypotension I95. 1 ; Shortness of breath R06.02 ; Leg swelling M79.89 ; Type 1 diabetes mellitus without complications E10.9 and Claudication I73.[address] [place] [id number] Sep, Low back pain M54.5 [facility] [address] [facility] [id number] [address] [place] [id number] Sep, Low back pain M54.5 [facility] [address] [facility] [id number] [address] [place] [id number] Aug, [facility] [address] [facility] [id number] [address] [place] [id number] Aug, Migraine without aura and wi thout status migrainosus, not intractable G43.009 [facility] [address] [facility] [id number] [address] [place] [id number] Aug, Low back pain M54.5 [facility] [address] [facility] [id number] [address] [place] [id number] Aug, Acute rhinosinusitis J01.90 [address] Sore throat [address]02.9 [facility] [address] [facility] [id number] [address] [place] [id number] 28 Jul, 2018 Low back pain M54.5 [facility] [address] [facility] [id number] [address] [place] [id number] Jul, Migraine without aura and wi thout status migrainosus, not intractable G43.009 [facility] [address] [facility] [id number] [address] [place] [id number] Jun, Low back pain M54.5 [facility] [address] [facility] [id number] [address] [place] [id number] Jun, [facility] [address] [facility] [id number] [address] [place] [id number] Jun, Orthostatic hypotension I95. 1 ; Shortness of breath R06.02 ; Type 1 diabetes mellitus without complications E10.9 [address] Leg [address]79.89 [facility] [address] [facility] [id number] [address] [place] [id number] Jun, Low back pain M54.5 [facility] [address] [place] [id number] [address] [place] [id number] Jun, [facility] [address] [facility] [id number] [address] [place] [id number] May, Migraine without aura and wi thout status migrainosus, not intractable G43.009 [facility] [address] [place] [id number] [address] [place] [id number] May, Migraine without aura and wi thout status migrainosus, not intractable G43.009 ; Restless legs syndrome G25.81 ; Leg cramps R25.2 ; Chronic kidney disease, unspecified N18.9 ; Postural hypotension I95.1 ; Diarrhea, unspecified type R19.7 and Cough R05 [place] [address] [place] [id number] [address] [place] [id number] May, [place] [address] [place] [id number] [address] [place] [id number] May, [place] [address] [place] [id number] [address] [place] [id number] May, Orthostatic hypotension I95. 1 ; Shortness of breath R06.02 ; Type 1 diabetes mellitus with complications E10.8 and Leg swelling M79.89 [place] [id number] [place] [id number] [address] [place] [id number] May, [place] [address] [place] [id number] [address] [place] [id number] May, Low back pain M54.5 [place] [address] [place] [id number] [address] [place] [id number] Apr, Type 1 diabetes mellitus wit h hyperglycemia E10.65 [place] [address] [facility] [id number] [address] [place] [phone] Apr, Low back pain M54.5 [place] [address] [place] [id number] [address] [place] [id number] Apr, [facility] [address] [id number] [address] [place] [phone] Apr, [facility] [address] [id number] [address] [place] [id number] March, [facility] [address] [facility] [id number] [address] [place] [id number] March, Low back pain M54.5 [facility] [address] [facility] [id number] [address] [place] [phone] March, [facility] [address] [id number] [place] [id number] Feb, [facility] [address] [facility] [id number] [address] [place] [id number] Feb, Low back pain M54.5 [facility] [address] [facility] [id number] [address] [place] [id number] Jan, Restless legs syndrome G25.[address] [facility] [address] [id number] [address] [place] [id number] Jan, Low back pain M54.5 [facility] [address] [facility] [id number] [address] [place] [id number] Jan, [facility] [address] [facility] [id number] [address] [place] [id number] Jan, Type 1 diabetes mellitus wit hout complications E10.9 ; Low back pain M54.5 ; Cough R05 ; Diarrhea, unspecified type R19.7 ; Migraine without aura and without status migrainosus, not intractable G43.009 and Uses control Z30.9 [facility] [address] [facility] [id number] [address] [place] [id number] Dec, Low back pain M54.5 [facility] [address] [facility] [id number] [address] [place] [id number] Dec, [facility] [address] [place] [id number] [place] [phone] Nov, Well woman exam Z01.419 ; Me norrhagia with regular cycle N92.0 ; Vaginal dryness N89.8 and Migraine with aura and without status migrainosus, not intractable G43.109 [facility] [address] [place] [id number] [address] [place] [id number] Nov, [facility] [address] [place] [id number] [place] [phone] Nov, Low back pain M54.5 [facility] [address] [place] [id number] [place] [phone] Oct, Low back pain M54.5 [facility] [address] [place] [id number] [place] [address] Oct, Migraine without aura and wi thout status migrainosus, not intractable G43.009 [place] [address] [address] Sep, Low back pain M54.5 [facility] [address] [id number] Sep, [facility] [address] [address] Sep, Migraine without aura and wi thout status migrainosus, not intractable G43.009 [facility] [address] [address] Sep, Type 1 diabetes mellitus wit h hypoglycemia without coma E10.649 ; Anemia D64.9 ; Migraine without aura and without status migrainosus, not intractable G43.009 ; Chronic kidney disease, unspecified N18.9 ; Autonomic neuropathy G90.9 and Postural hypotension I95.1 [facility] [address] [place] [id number] [address] [place] [id number] Sep, Low back pain M54.5 [facility] [address] [place] [id number] [place] [address] Aug, Low back pain M54.5 [facility] [address] [id number] [address] [place] [id number] Jul, [facility] [address] [facility] [id number] [address] [place] [id number] Jul, Low back pain M54.5 [facility] [address] [id number] [address] [place] [id number] Jun, [facility] [address] [id number] [address] [place] [id number] Jun, Low back pain M54.5 [facility] [address] [id number] [address] [place] [id number] Jun, Migraine without aura and wi thout status migrainosus, not intractable G43.009 [facility] [address] [facility] [id number] [address] [place] [id number] Jun, Type 1 diabetes mellitus wit h hyperglycemia E10.65 ; Dysthymia F34.1 and Migraine without aura and without status migrainosus, not intractable G43.009 [facility] [address] [id number] [address] [place] [id number] Jun, [facility] [address] [id number] [address] [place] [id number] May, Type 1 diabetes mellitus wit h hyperglycemia E10.65 [facility] [address] [id number] [address] [place] [id number] May, Low back pain M54.5 [facility] [address] [id number] [address] [place] [id number] May, Type 1 diabetes mellitus wit h hyperglycemia E10.65 [facility] [address] [id number] [address] [place] [id number] Apr, [facility] [address] [facility] [id number] [address] [place] [id number] Apr, Chronic kidney disease, stag e 4 (severe) N18.4 [facility] [address] [id number] [address] [place] [id number] Apr, Low back pain M54.5 [facility] [address] [id number] [address] [place] [id number] March, [facility] [address] [id number] [address] [place] [id number] March, Low back pain M54.5 [facility] [address] [id number] [address] [place] [id number] Feb, [facility] [address] [id number] [place] [id number] Feb, [facility] [address] [id number] [address] [place] [id number] Feb, Low back pain M54.5 [facility] [address] [id number] [address] [place] [id number] Feb, Low back pain M54.5 [facility] [address] [id number] [address] [place] [id number] Feb, Migraine without aura and wi thout status migrainosus, not intractable G43.009 [facility] [address] [id number] [address] [place] [id number] Feb, [facility] [address] [id number] [address] [place] [id number] Jan, Low back pain M54.5 [facility] [address] [id number] [address] [place] [id number] Jan, Type 1 diabetes mellitus wit hout complications E10.9 ; Anemia D64.9 ; Chronic kidney disease, unspecified N18.9 ; Migraine without aura and without status migrainosus, not intractable G43.009 and Other insomnia G47.09 [facility] [address] [id number] [address] [place] [id number] Jan, [facility] [address] [facility] [id number] [address] [place] [id number] Dec, Low back pain M54.5 [facility] [address] [id number] [address] [place] [id number] Dec, [facility] [address] [facility] [id number] [address] [place] [id number] Dec, [facility] [address] [facility] [id number] [address] [place] [id number] Dec, Shortness of breath R06.02 ; Type 1 diabetes mellitus without complications E10.9 and Leg swelling M79.89 [facility] [address] [facility] [id number] [address] [place] [id number] Nov, Low back pain M54.5 [facility] [address] [facility] [id number] [address] [place] [id number] Nov, Viral syndrome B34.9 [facility] [address] [id number] [address] [place] [phone] Oct, Low back pain M54.5 [facility] [address] [facility] [id number] [address] [place] [id number] Oct, [facility] [address] [facility] [id number] [address] [place] [id number] Oct, Low back pain M54.5 [facility] [address] [facility] [id number] [address] [place] [id number] Sep, [facility] [address] [facility] [id number] [address] [place] [id number] Sep, Fatigue, unspecified type R5 3.83 ; Type 1 diabetes mellitus without complications E10.[address] [facility] [address] [id number] [address] [place] [id number] Sep, Low back pain M54.5 [facility] [address] [id number] [address] [place] [id number] Sep, Type 1 diabetes mellitus wit h hyperglycemia E10.65 [facility] [address] [facility] [id number] [place] [id number] Aug, Type 1 diabetes mellitus wit hout complications E10.9 [facility] [address] [facility] [id number] [place] [id number] Aug, [facility] [address] [id number] Aug, [facility] [address] [facility] [id number] [address] [place] [phone] Jul, [facility] [address] [id number] 14 Jul, 2016 Low back pain M54.5 [place] [address] [id number] 12 Jul, 2016 Hyperkalemia, diminished anna al excretion E87.5 [facility] [address] [id number] 09 Jul, 2016 Hyperkalemia, diminished anna al excretion E87.5 [facility] [address] [id number] Jun, [place] [address] [id number] Jun, Low back pain M54.5 [facility] [address] [address] Jun, Anemia D64.9 ; Autonomic ayush ropathy G90.9 and Postural hypotension I95.1 [facility] [address] [id number] Jun, [facility] [address] [id number] May, Type 1 diabetes mellitus wit h complications E10.8 and Anemia D64.9 [facility] [address] [id number] [address] [place] [id number] May, Low back pain M54.5 [facility] [address] [id number] [address] [place] [id number] Apr, [facility] [address] [id number] [address] [place] [phone] Apr, Low back pain M54.5 [facility] [address] [id number] [address] [place] [id number] Apr, [facility] [address] [id number] [address] [place] [id number] Apr, [facility] [address] [id number] [address] [place] [id number] March, Low back pain M54.5 and Othe r chronic pain G89.29 [facility] [address] [id number] [address] [place] [id number] March, Type 1 diabetes mellitus wit hout complications E10.9 [facility] [address] [id number] [address] [place] [id number] March, [facility] [address] [id number] [address] [place] [id number] March, [facility] [address] [id number] [address] [place] [id number] Feb, [facility] [address] [id number] [address] [place] [id number] Feb, Type 1 diabetes mellitus wit hout complications E10.9 [facility] [address] [id number] [address] [place] [id number] Feb, Trochanteric bursitis, right hip M70.61 [facility] [address] [id number] [address] [place] [id number] Jan, [facility] [address] [id number] [address] [place] [id number] Jan, [facility] [address] [facility] [id number] [address] [place] [id number] Dec, Type 1 diabetes mellitus wit complications E10.8 [facility] [address] [facility] [id number] [address] [place] [id number] Dec, [facility] [address] [facility] [id number] [address] [place] [id number] Dec, Anemia D64.9 ; Autonomic ayush ropathy G90.9 and Postural hypotension I95.1 [facility] [address] [facility] [id number] [address] [place] [id number] Dec, [facility] [address] [facility] [id number] [address] [place] [id number] Nov, Sore throat J02.9 [facility] [address] [place] [id number] [address] [place] [id number] Nov, Type 1 diabetes mellitus wit h complications E10.8 [facility] [address] [facility] [id number] [address] [place] [id number] Nov, Type 1 diabetes mellitus wit diabetic nephropathy E10.21 ; Proteinuria, unspecified R80.9 and Chronic kidney disease, unspecified N18.9 [facility] [address] [place] [id number] [address] [place] [id number] Nov, [facility] [address] [facility] [id number] [address] [place] [id number] Nov, Trochanteric bursitis, right hip M70.61 [facility] [address] [facility] [id number] [address] [place] [id number] Nov, [facility] [address] [place] [id number] [address] [place] [id number] Oct, [facility] [address] [place] [id number] [address] [place] [id number] Oct, [facility] [address] [place] [id number] [address] [place] [phone] Oct, [facility] [address] [id number] [address] [place] [phone] Sep, [facility] [address] [id number] [address] [place] [id number] Sep, [facility] [address] [id number] [address] [place] [id number] Sep, Type 2 diabetes mellitus wit h complication E11.8 and Right hip pain M25.551 [facility] [address] [id number] [address] [place] [id number] Sep, [facility] [address] [id number] [address] [place] [id number] Aug, [facility] [address] [id number] [address] [place] [id number] Aug, [facility] [address] [id number] [address] [place] [id number] Aug, [facility] [address] [id number] [address] [place] [id number] Aug, Type 1 diabetes mellitus wit hout complications E10.9 [facility] [address] [id number] [address] [place] [id number] [address], 2015 [facility] [address] [id number] [address] [place] [id number] [address], [address] [facility] [address] [id number] [address] [place] [id number] 14 [address], 2015 [facility] [address] [id number] [address] [place] [id number] Jun, [facility] [address] [id number] [address] [place] [phone] Jun, [facility] [address] [id number] [address] [place] [id number] Jun, [facility] [address] [id number] [address] [place] [phone] Jun, [facility] [address] [id number] [address] [place] [id number] Jun, [facility] [address] [id number] [address] [place] [id number] Jun, Diabetes mellitus without me ntion of complication, type I [juvenile type], not stated as uncontrolled 250.01 [facility] [address] [id number] [address] [place] [id number] May, [facility] [address] [id number] [address] [place] [id number] May, [facility] [address] [id number] [address] [place] [id number] May, [facility] [address] [facility] [id number] [address] [place] [id number] May, Autonomic neuropathy 337.9 ; Postural hypotension 458.[address] [facility] [address] [id number] [address] [place] [id number] May, [facility] [address] [facility] [id number] [address] [place] [phone] Apr, [facility] [address] [id number] [address] [place] [phone] Apr, [facility] [address] [id number] [address] [place] [phone] Apr, [facility] [address] [id number] [address] [place] [phone] Apr, [facility] [address] [id number] [address] [place] [phone] Apr, [facility] [address] [facility] [id number] [address] [place] [id number] March, [facility] [address] [id number] [address] [place] [address] [place] [id number] March, [facility] [address] [id number] [address] [place] [address], [place] [id number] March, [facility] [address] [id number] [address] [place] [address], [place] [id number] March, [facility] [address] [id number] [address] [place] [address], [place] [id number] March, [facility] [address] [id number] [address] [place] [address], [place] [id number] Feb, [facility] [address] [id number] [address] [place] [address], [place] [id number] Feb, [facility] [address] [id number] [address] [place] [address], [place] [id number] Feb, [facility] [address] [id number] [address] [place] [address], [place] [id number] Jan, [facility] [address] [id number] [address] [place] [address], [place] [id number] Jan, [facility] [address] [id number] [address] [place] [address], [place] [id number] Jan, [facility] [address] [id number] [address] [place] [address], [place] [id number] Jan, [facility] [address] [id number] [address] [place] [address], [place] [id number] Jan, [facility] [address] [id number] [address] [place] [address], [place] [id number] Jan, [facility] [address] [id number] [address] [place] [address], [place] [id number] Jan, [facility] [address] [id number] [address] [place] [address], [place] [id number] Jan, [facility] [address] [id number] [address] [place] [address], [place] [id number] Jan, [facility] [address] [id number] [address] [place] [address], [place] [id number] Jan, [facility] [address] [id number] [address] [place] [address], [place] [id number] Jan, [facility] [address] [id number] [address] [place] [address], [place] [id number] Jan, [facility] [address] [id number] [address] [place] [address], [place] [id number] Jan, [facility] [address] [id number] [address] [place] [address], [place] [id number] Dec, [facility] [address] [id number] [address] [place] [address], [place] [id number] Dec, [facility] [address] [id number] [address] [place] [address], [place] [id number] Dec, [facility] [address] [id number] [address] [place] [address], [place] [id number] Dec, [facility] [address] [id number] [address] [place] [address], [place] [id number] Dec, [facility] [address] [id number] [address] [place] [address], [place] [id number] Dec, [facility] [address] [id number] [address] [place] [address], [place] [id number] Dec, [facility] [address] [id number] [address] [place] [address], [place] [id number] Dec, [facility] [address] [id number] [address] [place] [address], [place] [id number] Nov, [facility] [address] [id number] [address] [place] [address], [place] [id number] Nov, [facility] [address] [id number] [address] [place] [address], [place] [id number] Nov, [facility] [address] [id number] [address] [place] [address] [place] [id number] 14 Nov, 2014 [facility] [address] [id number] [address] [place] [address], [place] [id number] 14 Nov, 2014 [facility] [address] [id number] [address] [place] [address], [place] [id number] Nov, [facility] [address] [id number] [address] [place] [address], [place] [id number] Nov, [facility] [address] [id number] [address] [place] [address], [place] [id number] Nov, [facility] [address] [id number] [address] [place] [address], [place] [id number] Nov, [facility] [address] [id number] [address] [place] [address], [place] [id number] Oct, [facility] [address] [id number] [address] [place] [address], [place] [id number] Oct, [facility] [address] [id number] [address] [place] [address], [place] [id number] Oct, [facility] [address] [id number] [address] [place] [address], [place] [id number] Oct, [facility] [address] [id number] [address] [place] [address], [place] [id number] Oct, [facility] [address] [id number] [address] [place] [address], [place] [id number] Oct, [facility] [address] [id number] [address] [place] [address], [place] [id number] Oct, [facility] [address] [id number] [address] [place] [address], [place] [id number] Oct, [facility] [address] [id number] [address] [place] [address], [place] [id number] Oct, [facility] [address] [id number] [address] [place] [address], [place] [id number] Oct, [facility] [address] [id number] [address] [place] [address], [place] [id number] Oct, [facility] [address] [id number] [address] [place] [address], [place] [id number] Oct, [facility] [address] [id number] [address] [place] [address], [place] [id number] Oct, [facility] [address] [id number] [address] [place] [address], [place] [id number] Oct, [facility] [address] [id number] [address] [place] [address], [place] [id number] Sep, [facility] [address] [id number] [address] [place] [address], [place] [id number] Sep, [facility] [address] [id number] [address] [place] [address], [place] [id number] Sep, [facility] [address] [id number] [address] [place] [address], [place] [id number] Sep, [facility] [address] [id number] [address] [place] [address], [place] [id number] Aug, [facility] [address] [id number] [address] [place] [address], [place] [id number] Aug, [facility] [address] [id number] [address] [place] [address], [place] [id number] Aug, [facility] [address] [id number] [address] [place] [address], [place] [id number] Aug, [facility] [address] [id number] [address] [place] [address], [place] [id number] Aug, [facility] [address] [id number] [address] [place] [address], [place] [id number] Aug, [facility] [address] [id number] [address] [place] [address], [place] [id number] Aug, [facility] [address] [id number] [address] [place] [address], [place] [id number] Aug, [facility] [address] [id number] [address] [place] [address], [place] [id number] Aug, [facility] [address] [id number] [address] [place] [address], [place] [id number] Aug, [facility] [address] [id number] [address] [place] [address], [place] [id number] 29 Jul, 2013 [facility] [address] [id number] [address] [place] [address], [place] [id number] 29 Jul, 2013 [facility] [address] [id number] [address] [place] [address], [place] [id number] 29 Jul, 2013 [facility] [address] [id number] [address] [place] [address], [place] [id number] 29 Jul, 2013 [facility] [address] [id number] [address] [place] [address], [place] [id number] 22 Jul, 2013 [facility] [address] [id number] [address] [place] [address], [place] [id number] 22 Jul, 2013 [facility] [address] [id number] [address] [place] [address], [place] [id number] 19 Jul, 2013 [facility] [address] [id number] [address] [place] [address], [place] [id number] 19 Jul, 2013 [facility] [address] [id number] [address] [place] [address], [place] [id number] 11 Jul, 2013 [facility] [address] [id number] [address] [place] [address], [place] [id number] 11 Jul, 2013 [facility] [address] [id number] [address] [place] [address], [place] [id number] 10 Jul, 2013 [facility] [address] [id number] [address] [place] [address], [place] [id number] 10 Jul, 2013 [facility] [address] [id number] [address] [place] [address], [place] [id number] 08 Jul, 2013 [facility] [address] [id number] [facility] [id number] 08 Jul, 2013 [facility] [address] [id number] [facility] [place] [id number] 03 Jul, 2013 [facility] [address] [id number] [facility] [place] [id number] 03 Jul, 2013 [facility] [address] [id number] [address] [place] [address], [place] [id number] 02 Jul, 2013 [facility] [address] [id number] [address] [place] [address], [place] [id number] Jul, 2013 [facility] [address] [id number] [address] [place] [address], [place] [id number] Jun, [facility] [address] [id number] [address] [place] [address], [place] [id number] Jun, [facility] [address] [id number] [address] [place] [address], [place] [id number] Jun, [facility] [address] [id number] [address] [place] [address], [place] [id number] Jun, [facility] [address] [id number] [address] [place] [address], [place] [id number] Jun, [facility] [address] [id number] [address] [place] [address], [place] [id number] Jun, [facility] [address] [id number] [address] [place] [address], [place] [id number] Jun, [facility] [address] [id number] [address] [place] [address], [place] [id number] Jun, [facility] [address] [id number] [address] [place] [address], [place] [id number] Jun, [facility] [address] [id number] [address] [place] [address], [place] [id number] Jun, [facility] [address] [id number] [address] [place] [address], [place] [id number] Jun, [facility] [address] [id number] [address] [place] [address], [place] [id number] Jun, [facility] [address] [id number] [address] [place] [address], [place] [id number] Jun, [facility] [address] [id number] [address] [place] [address], [place] [id number] Jun, [facility] [address] [id number] [address] [place] [address], [place] [id number] Jun, [facility] [address] [id number] [address] [place] [address], [place] [id number] May, [facility] [address] [id number] [address] [place] [address], [place] [id number] May, [facility] [address] [id number] [address] [place] [address], [place] [id number] May, [facility] [address] [id number] [address] [place] [address], [place] [id number] May, [facility] [address] [id number] [address] [place] [address], [place] [id number] May, [facility] [address] [id number] [address] [place] [address], [place] [id number] May, [facility] [address] [id number] [address] [place] [address], [place] [id number] May, [facility] [address] [id number] [address] [place] [address], [place] [id number] May, [facility] [address] [id number] [address] [place] [address], [place] [id number] Apr, [facility] [address] [id number] [address] [place] [address], [place] [id number] Apr, [facility] [address] [id number] [address] [place] [address], [place] [id number] Apr, [facility] [address] [id number] [address] [place] [address], [place] [id number] Apr, [facility] [address] [id number] [facility] [place] [id number] Apr, [facility] [address] [id number] [address] [place] [address], [place] [id number] Apr, [facility] [address] [id number] [address] [place] [address], [place] [id number] Apr, [facility] [address] [id number] [address] [place] [address], [place] [id number] Apr, [facility] [address] [id number] [address] [place] [address], [place] [id number] Apr, [facility] [address] [id number] [address] [place] [address], [place] [id number] Apr, [facility] [address] [id number] [address] [place] [address], [place] [id number] Apr, [facility] [address] [id number] [address] [place] [address], [place] [id number] Apr, [facility] [address] [id number] [address] [place] [address], [place] [id number] Apr, [facility] [address] [id number] [address] [place] [address], [place] [id number] Apr, [facility] [address] [id number] [address] [place] [address], [place] [id number] Apr, [facility] [address] [id number] [address] [place] [address], [place] [id number] Apr, [facility] [address] [id number] [address] [place] [address], [place] [id number] Apr, [facility] [address] [id number] [address] [place] [address], [place] [id number] Apr, [facility] [address] [id number] [address] [place] [address], [place] [id number] March, [facility] [address] [id number] [address] [place] [address], [place] [id number] March, [facility] [address] [id number] [address] [place] [address], [place] [id number] March, [facility] [address] [id number] [address] [place] [address], [place] [id number] March, [facility] [address] [id number] [address] [place] [address], [place] [id number] March, [facility] [address] [id number] [address] [place] [address], [place] [id number] March, [facility] [address] [id number] [address] [place] [address], [place] [id number] March, [facility] [address] [id number] [address] [place] [address], [place] [id number] March, [facility] [address] [id number] [address] [place] [address], [place] [id number] March, [facility] [address] [id number] [address] [place] [address], [place] [id number] Feb, [facility] [address] [id number] [address] [place] [address], [place] [id number] Feb, [facility] [address] [id number] [address] [place] [address], [place] [id number] Feb, [facility] [address] [id number] [address] [place] [address], [place] [id number] Feb, [facility] [address] [id number] [address] [place] [address], [place] [id number] Feb, [facility] [address] [id number] [address] [place] [address], [place] [id number] Feb, [facility] [address] [id number] [address] [place] [address], [place] [id number] Feb, [facility] [address] [id number] [address] [place] [address], [place] [id number] Feb, [facility] [address] [id number] [facility] [place] [id number] Feb, [facility] [address] [id number] [address] [place] [address], [place] [id number] Feb, [facility] [address] [id number] [address] [place] [address], [place] [id number] Feb, [facility] [address] [id number] [address] [place] [address], [place] [id number] Feb, [facility] [address] [id number] [address] [place] [address], [place] [id number] Feb, [facility] [address] [id number] [address] [place] [address], [place] [id number] Jan, [facility] [address] [id number] [address] [place] [address], [place] [id number] Jan, [facility] [address] [id number] [address] [place] [address], [place] [id number] Jan, [facility] [address] [id number] [address] [place] [address], [place] [id number] Jan, [facility] [address] [id number] [address] [place] [address], [place] [id number] Jan, [facility] [address] [id number] [address] [place] [address], [place] [id number] Jan, [facility] [address] [id number] [address] [place] [address], [place] [id number] Jan, [facility] [address] [id number] [address] [place] [address], [place] [id number] Jan, [facility] [address] [id number] [address] [place] [address], [place] [id number] Dec, [facility] [address] [id number] [address] [place] [address], [place] [id number] Dec, [facility] [address] [id number] [address] [place] [address], [place] [id number] Dec, [facility] [address] [id number] [address] [place] [address], [place] [id number] Dec, [facility] [address] [id number] [address] [place] [address], [place] [id number] Dec, [facility] [address] [id number] [address] [place] [address], [place] [id number] Dec, [facility] [address] [id number] [address] [place] [address], [place] [id number] Dec, [facility] [address] [id number] [address] [place] [address], [place] [id number] Dec, [facility] [address] [id number] [address] [place] [address], [place] [id number] Dec, [facility] [address] [id number] [address] [place] [address], [place] [id number] Dec, [facility] [address] [id number] [address] [place] [address], [place] [id number] Nov, [facility] [address] [id number] [address] [place] [address], [place] [id number] Nov, [facility] [address] [id number] [address] [place] [address], [place] [id number] Nov, [facility] [address] [id number] [address] [place] [address], [place] [id number] Nov, [facility] [address] [id number] [address] [place] [address], [place] [id number] Nov, [facility] [address] [id number] [address] [place] [address], [place] [id number] Nov, [facility] [address] [id number] [address] [place] [address], [place] [id number] Nov, [facility] [address] [id number] [address] [place] [address], [place] [id number] Nov, [facility] [address] [id number] [address] [place] [address], [place] [id number] Nov, [facility] [address] [id number] [address] [place] [address], [place] [id number] Nov, [facility] [address] [id number] [address] [place] [address], [place] [id number] 19 Oct, 2013 [facility] [address] [id number] [address] [place] [address], [place] [id number] 19 Oct, 2013 [facility] [address] [id number] [address] [place] [address], [place] [id number] 18 Oct, 2013 [facility] [address] [id number] [address] [place] [address], [place] [id number] 18 Oct, 2013 [facility] [address] [id number] [address] [place] [address], [place] [id number] 17 Oct, 2013 [facility] [address] [id number] [address] [place] [address], [place] [id number] 17 Oct, 2013 [facility] [address] [id number] [address] [place] [address], [place] [id number] 16 Oct, 2013 [facility] [address] [id number] [address] [place] [address], [place] [id number] 16 Oct, 2013 [facility] [address] [id number] [address] [place] [address], [place] [id number] 11 Oct, 2013 [facility] [address] [id number] [address] [place] [address], [place] [id number] 11 Oct, 2013 [facility] [address] [id number] [address] [place] [address], [place] [id number] 04 Oct, 2013 [facility] [address] [id number] [address] [place] [address], [place] [id number] 04 Oct, 2013 [facility] [address] [id number] [address] [place] [address], [place] [id number] 04 Oct, 2013 [facility] [address] [id number] [address] [place] [address], [place] [id number] 04 Oct, 2013 [facility] [address] [id number] [address] [place] [address], [place] [id number] Sep, [facility] [address] [id number] [address] [place] [address], [place] [id number] Sep, [facility] [address] [id number] [address] [place] [address], [place] [id number] Sep, [facility] [address] [id number] [address] [place] [address], [place] [id number] Sep, [facility] [address] [id number] [address] [place] [address], [place] [id number] Sep, [facility] [address] [id number] [address] [place] [address], [place] [id number] Sep, [facility] [address] [id number] [address] [place] [address], [place] [id number] Aug, [facility] [address] [id number] [address] [place] [address], [place] [id number] Aug, [facility] [address] [id number] [address] [place] [address], [place] [id number] Aug, [facility] [address] [id number] [address] [place] [address], [place] [id number] 17 Aug, 2013 [facility] [address] [id number] [address] [place] [address], [place] [id number] 10 Aug, 2013 [facility] [address] [id number] [address] [place] [id number] 10 Aug, 2013 [facility] [address] [id number] [address] [place] [address], [place] [id number] 07 Aug, 2013 [facility] [address] [id number] [address] [place] [address], [place] [id number] 02 Aug, 2013 [facility] [address] [id number] [address] [place] [id number] 02 Aug, 2013 [facility] [address] [id number] [address] [place] [address], [place] [id number] 25 Jul, 2012 [facility] [address] [id number] [address] [place] [address], [place] [id number] 23 Jul, 2012 [facility] [address] [id number] [address] [place] [address], [place] [id number] 21 Jul, 2012 [facility] [address] [id number] [address] [place] [address], [place] [id number] 20 Jul, 2012 [facility] [address] [id number] [address] [place] [address], [place] [id number] 18 Jul, 2012 [facility] [address] [id number] [address] [place] [address], [place] [id number] 17 Jul, 2012 [facility] [address] [id number] [address] [place] [address], [place] [id number] 16 Jul, 2012 [facility] [address] [id number] [address] [place] [address], [place] [id number] 11 Jul, 2012 [facility] [address] [id number] [address] [place] [address], [place] [id number] 09 Jul, 2012 [facility] [address] [id number] [address] [place] [address], [place] [id number] 09 Jul, 2012 [facility] [address] [id number] [address] [place] [address], [place] [id number] 06 Jul, 2012 [facility] [address] [id number] [address] [place] [address], [place] [id number] 03 Jul, 2012 [facility] [address] [id number] [address] [place] [address], [place] [id number] Jun, [facility] [address] [id number] [address] [place] [address], [place] [id number] Jun, [facility] [address] [id number] [address] [place] [address], [place] [id number] 22 Jun, 2013 [facility] [address] [id number] [address] [place] [address], [place] [id number] Jun, [facility] [address] [id number] [address] [place] [address], [place] [id number] Jun, [facility] [address] [id number] [address] [place] [address], [place] [id number] Jun, [facility] [address] [id number] [address] [place] [address], [place] [id number] Jun, [facility] [address] [id number] [address] [place] [address], [place] [id number] Jun, [facility] [address] [id number] [address] [place] [address], [place] [id number] Jun, [facility] [address] [id number] [address] [place] [address], [place] [id number] May, [facility] [address] [id number] [address] [place] [address], [place] [id number] May, [facility] [address] [id number] [address] [place] [address], [place] [id number] May, [facility] [address] [id number] [address] [place] [address], [place] [id number] May, [facility] [address] [id number] [address] [place] [address], [place] [id number] May, [facility] [address] [id number] [address] [place] [address], [place] [id number] May, [facility] [address] [id number] [address] [place] [address], [place] [id number] May, [facility] [address] [id number] [address] [place] [address], [place] [id number] March, [facility] [address] [id number] [address] [place] [address], [place] [id number] March, [facility] [address] [id number] [address] [place] [address], [place] [id number] March, [facility] [address] [id number] [address] [place] [address], [place] [id number] Dec, [facility] [address] [id number] [address] [place] [address], [place] [id number] Nov, [facility] [address] [id number] [address] [place] [address], [place] [id number] Aug, [facility] [address] [id number] [address] [place] [address], [place] [id number] Aug, [facility] [address] [id number] [address] [place] [address], [place] [id number] Jun, [facility] [address] [id number] [address] [place] [address], [place] [id number] Jun, [facility] [address] [id number] [address] [place] [address], [place] [id number] Jun, [facility] [address] [id number] [address] [place] [address], [place] [id number] Jun, [facility] [address] [id number] [address] [place] [address], [place] [id number] May, [facility] [address] [id number] [address] [place] [address], [place] [id number] May, [facility] [address] [id number] [address] [place] [address], [place] [id number] May, [facility] [address] [id number] [address] [place] [address], [place] [id number] May, [facility] [address] [id number] [address] [place] [address], [place] [id number] May, [facility] [address] [id number] [address] [place] [address], [place] [id number] May, [facility] [address] [id number] [address] [place] [address], [place] [id number] May, [facility] [address] [id number] [address] [place] [address], [place] [id number] Apr, [facility] [address] [id number] [address] [place] [address], [place] [id number] Apr, [facility] [address] [id number] [address] [place] [address], [place] [id number] Apr, [facility] [address] [id number] [address] [place] [address], [place] [id number] Apr, [facility] [address] [id number] [address] [place] [address], [place] [id number] March, [facility] [address] [id number] [address] [place] [address], [place] [id number] March, [facility] [address] [id number] [address] [place] [address], [place] [id number] March, [facility] [address] [id number] [address] [place] [address], [place] [id number] March, [facility] [address] [id number] [address] [place] [address], [place] [id number] March, [facility] [address] [id number] [address] [place] [address], [place] [id number] March, [facility] [address] [id number] [address] [place] [address], [place] [id number] March, [facility] [address] [id number] [address] [place] [address], [place] [id number] March, [facility] [address] [id number] [address] [place] [address], [place] [id number] March, [facility] [address] [id number] [address] [place] [address], [place] [id number] Feb, [facility] [address] [id number] [address] [place] [address], [place] [id number] Feb, [facility] [address] [id number] [address] [place] [address], [place] [id number] Jan, [facility] [address] [id number] [address] [place] [address], [place] [id number] 27 Jan, 2012 [facility] [address] [id number] [address] [place] [address], [place] [id number] 16 Jan, 2012 [facility] [address] [id number] [address] [place] [address], [place] [id number] 05 Jan, 2012 [facility] [address] [id number] [address] [place] [address], [place] [id number] 20 Dec, 2011 [facility] [address] [id number] [address] [place] [address], [place] [id number] 16 Dec, 2011 [facility] [address] [id number] [address] [place] [address], [place] [id number] 15 Dec, 2011 [facility] [address] [id number] [address] [place] [address], [place] [id number] 30 Nov, 2011 [facility] [address] [id number] [address] [place] [address], [place] [id number] 19 Oct, 2011 [facility] [address] [id number] [address] [place] [address], [place] [id number] 15 Oct, 2011 [facility] [address] [id number] [address] [place] [address], [place] [id number] 15 Oct, 2011 [facility] [address] [id number] [address] [place] [address], [place] [id number] 14 Oct, 2011 [facility] [address] [id number] [address] [place] [address], [place] [id number] 14 Oct, 2011 [facility] [address] [id number] [address] [place] [address], [place] [id number] 12 Oct, 2011 [facility] [address] [id number] [address] [place] [address], [place] [id number] 09 Oct, 2011 [facility] [address] [id number] [address] [place] [address], [place] [id number] Oct, [facility] [address] [id number] [address] [place] [address], [place] [id number] [place], [facility] [address] [id number] [address] [place] [id number] 17 Sep, [address] [facility] [address] [id number] [address] [place] [id number] 14 Sep, [address] [facility] [address] [id number] [address] [place] [id number] Sep, [facility] [address] [id number] [address] [place] [id number] Sep, [facility] [address] [id number] [address] [place] [id number] Sep, [facility] [address] [id number] [address] [place] [id number] Sep, [facility] [address] [id number] [address] [place] [id number] Sep, [facility] [address] [id number] [address] [place] [id number] Sep, [facility] [address] [id number] [address] [place] [id number] Aug, [facility] [address] [id number] [address] [place] [id number] Jul, [facility] [address] [id number] [address] [place] [id number] Oct, [facility] [address] [id number] [address] [place] [id number] Oct, [facility] [address] [id number] [address] [place] [id number] Oct, IMMUNIZATIONS No Known Immunizations SOCIAL HISTORY Never Assessed REASON FOR VISIT PLAN OF CARE VITAL SIGNS MEDICATIONS Unknown Medications RESULTS No Results PROCEDURES No Known procedures INSTRUCTIONS MEDICATIONS ADMINISTERED No Known Medications MEDICAL (GENERAL) HISTORY Type Description Date Medical History Diabetic Medical History kidney failure,and pancreatic failure Surgical History Bilat tubal ligation Surgical History Lt cataract surgery 04/2018 Surgical History Rt cataract surgery 05/2018 Surgical History pearateeal tube 05/2019 Hospitalization History Diabetic multiple hospitalizations Hospitalization History [facility] 10/14-10/19
--- OUTSIDE RECORDS SUMMARY | 2020-03-19 05:50 | XMS REPORT ---
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 14164803 Problem Chronic kidney disease, unspecified N18.9 Active 073274636 Problem Anemia, unspecified D64.9 Active 004527296 Problem Irritable bowel K58.9 Active 1074 3008 Problem Type 1 diabetes mellitus without complications E10 .9 Active 209814805 Problem Migraine G43.909 Active 36923193 Problem Irritable bowel syndrome with diarrhea K58.0 Active 604819037 Problem Peritoneal dialysis status Z99.2 Act moody 689616786 Problem Essential hypertension I10 Active 63003852 Problem Intractable migraine without aura and with status migr ainosus G43.011 Active 436730977 Problem Type 1 diabetes mellitus with hypoglycemia without coma E10.649 Active 70795450 Problem Type 1 diabetes mellitus with hyperglycemia E10.65 Active 14071198 Problem Dysthymia F34.1 Active 65083736 Problem Chronic kidney disease, stage 4 (severe) N18.4 Active 961997138 Problem Migraine with aura and without status migrainosu s, not intractable G43.109 Active 1485645 Problem Autonomic neuropathy G90.9 Active 479291876 Problem Type 1 diabetes mellitus with complications E10.8 Active 497619148 Problem Menorrhagia with regular cycle N92.0 Active 961811335 Problem Lymphedema I89.0 Active 191461535 Problem Claudication I73.9 Active 4865801 6 Problem Other chronic pain G89.29 Active 8 3232001 Problem Diastolic dysfunction I51.89 Active 9760434 Problem ESRF (end stage renal failure) N18.6 Active 75867491 Problem 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 Active 868491314 Problem Migraine without aura and without status migrain osus, not intractable G43.009 Active 544136234 Problem Type 1 diabetes mellitus with foot ulcer E10.621 Active [id number] Problem Low back pain M54.5 Active 914056 009 Problem Other insomnia G47.09 Active 74666 2000 Problem Restless legs G25.81 Active 912822 08 Problem Hyperthyroidism E05.90 Active 3448 6009 Problem Moderate episode of recurrent major depressive disorder F33.1 Active 729133389 Problem Primary insomnia F51.01 Active 397 2004 ALLERGIES No Information ENCOUNTERS Encounter Location Date Diagnosis [facility] [address] [id number] 15 Apr, 2020 [place] [address] [phone] 13 Feb, 2020 Irritable bowel syndrome wit h diarrhea K58.0 [facility] [address] [place] [id number] [place] [phone] 13 Feb, 2020 Irritable bowel syndrome wit h diarrhea K58.0 [facility] [address] [place] [id number] [place] [id number] 13 Feb, 2020 [facility] [address] [place] [id number] [address] [place] [phone] 28 Jan, 2020 Type 1 diabetes mellitus wit h foot ulcer E10.621 and Non-pressure chronic ulcer of other part of right foot limited to breakdown of skin L97.511 [facility] [address] [place] [id number] [address] [place] [id number] 23 Jan, 2020 Type 1 diabetes mellitus wit h diabetic nephropathy E10.21 [facility] [address] [place] [id number] [address] [place] [phone] 20 Jan, 2020 [facility] [address] [place] [id number] [address] [place] [id number] 16 Jan, 2020 Migraine without aura and wi thout status migrainosus, not intractable G43.009 and Type 1 diabetes mellitus with hypoglycemia without coma E10.649 [facility] [address] [place] [id number] [address] [place] [phone] Jan, [facility] [address] [place] [id number] [address] [place] [id number] 10 Jan, 2020 Type 1 diabetes mellitus wit h hyperglycemia E10.65 ; Orthostatic hypotension I95.1 and Restless legs G25.81 [facility] [address] [facility] [id number] [address] [place] [id number] 06 Dec, 2019 Caries K02.9 and Dental exam ination Z01.20 [facility] [address] [place] [id number] [place] [id number] 30 Oct, 2019 Restless legs G25.81 [place] [address] [place] [id number] [place] [phone] 16 Oct, 2019 Encounter for Medicare annua l wellness exam Z00.00 ; 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 ; Migraine without aura and without status migrainosus, not intractable G43.009 ; Chronic kidney disease, stage 4 (severe) N18.4 ; Claudication I73.9 ; Peritoneal dialysis status Z99.2 ; Diastolic dysfunction I51.89 ; Primary insomnia F51.01 and Burn T30.0 [facility] [address] [place] [id number] [address] [place] [phone] Sep, Moderate episode of recurren t major depressive disorder F33.1 and Primary insomnia F51.01 [facility] [address] [place] [id number] [address] [place] [phone] Aug, Hyperthyroidism E05.90 [facility] [address] [place] [id number] [address] [place] [phone] May, Restless legs G25.81 [facility] [address] [place] [id number] [address] [place] [phone] May, [facility] [address] [place] [id number] [place] [phone] May, [facility] [address] [id number] [address] [place] [id number] May, Type 1 diabetes mellitus wit h hypoglycemia without coma E10.649 ; ESRF (end stage renal failure) N18.6 ; Leg cramps R25.2 ; Restless legs G25.81 and Low back pain M54.5 [facility] [address] [id number] [address] [place] [phone] Apr, Low back pain M54.5 [facility] [address] [id number] [address] [place] [phone] Apr, [facility] [address] [id number] [address] [place] [phone] March, Low back pain M54.5 [facility] [address] [id number] [address] [place] [phone] March, [facility] [address] [id number] [address] [place] [phone] Feb, Low back pain M54.5 [facility] [address] [id number] [address] [place] [phone] Jan, Low back pain M54.5 [facility] [address] [id number] [address] [place] [phone] Jan, [facility] [address] [id number] [address] [place] [phone] Jan, [facility] [address] [id number] [address] [place] [phone] Jan, [facility] [address] [id number] [address] [place] [phone] Dec, Type 1 diabetes mellitus wit h hypoglycemia without coma E10.649 and Low back pain M54.5 [facility] [address] [id number] [address] [place] [phone] Dec, Low back pain M54.5 [facility] [address] [id number] [address] [place] [phone] 13 Dec, 2018 Diastolic dysfunction I51.89 ; Essential hypertension I10 and Chronic kidney disease, stage 4 (severe) N18.4 [place] [address] [place] [id number] [address] [place] [id number] 11 Dec, 2018 RUQ abdominal pain R10.11 ; Type 1 diabetes mellitus without complications E10.9 ; Therapeutic drug monitoring Z51.81 ; Migraine with aura and without status migrainosus, not intractable G43.109 and Intractable migraine without aura and with status migrainosus G43.011 [place] [address] [place] [id number] [address] [place] [phone] Nov, Low back pain M54.5 [place] [address] [place] [id number] [place] [phone] Nov, [place] [address] [place] [id number] [place] [phone] Nov, Intractable migraine without aura and with status migrainosus G43.011 ; Lymphedema I89.0 ; Pain in right shoulder M25.511 ; Other chronic pain G89.29 ; Irritable bowel syndrome with diarrhea K58.0 ; Type 1 diabetes mellitus without complications E10.9 and Essential hypertension I10 [place] [address] [place] [id number] [place] [phone] Oct, Low back pain M54.5 [place] [address] [place] [id number] [address] [place] [phone] Oct, [place] [address] [place] [id number] [address] [place] [phone] Oct, Orthostatic hypotension I95. 1 ; Shortness of breath R06.02 ; Leg swelling M79.89 ; Type 1 diabetes mellitus without complications E10.9 and Claudication I73.9 [place] [address] [place] [id number] [place] [phone] Sep, Low back pain M54.5 [place] [address] [id number] [address] [place] [phone] Sep, Low back pain M54.5 [facility] [address] [facility] [id number] [address] [place] [phone] Aug, [facility] [address] [facility] [id number] [address] [place] [phone] Aug, Migraine without aura and wi thout status migrainosus, not intractable G43.009 [facility] [address] [id number] [address] [place] [phone] Aug, Low back pain M54.5 [facility] [address] [facility] [id number] [address] [place] [phone] Aug, Acute rhinosinusitis J01.90 and Sore throat J02.9 [facility] [address] [facility] [id number] [address] [place] [phone] Jul, Low back pain M54.5 [facility] [address] [facility] [id number] [address] [place] [phone] Jul, Migraine without aura and wi thout status migrainosus, not intractable G43.009 [facility] [address] [facility] [id number] [address] [place] [phone] Jun, Low back pain M54.5 [facility] [address] [facility] [id number] [address] [place] [phone] Jun, [facility] [address] [facility] [id number] [address] [place] [id number] Jun, Orthostatic hypotension I95. 1 ; Shortness of breath R06.02 ; Type 1 diabetes mellitus without complications E10.9 and Leg swelling M79.89 [facility] [address] [facility] [id number] [address] [place] [phone] Jun, Low back pain M54.5 [facility] [address] [facility] [id number] [address] [place] [phone] Jun, [facility] [address] [facility] [id number] [address] [place] [phone] May, Migraine without aura and wi thout status migrainosus, not intractable G43.009 [facility] [address] [facility] [id number] [address] [place] [phone] May, Migraine without aura and wi thout status migrainosus, not intractable G43.009 ; Restless legs syndrome G25.81 ; Leg cramps R25.2 ; Chronic kidney disease, unspecified N18.9 ; Postural hypotension I95.1 ; Diarrhea, unspecified type R19.7 and Cough R05 [facility] [address] [facility] [id number] [address] [place] [phone] May, [facility] [address] [facility] [id number] [address] [place] [phone] May, [facility] [address] [place] [id number] [address] [place] [phone] May, Orthostatic hypotension I95. 1 ; Shortness of breath R06.02 ; Type 1 diabetes mellitus with complications E10.8 and Leg swelling M79.89 [facility] [address] [place] [id number] [address] [place] [id number] May, [facility] [address] [place] [id number] [address] [place] [phone] May, Low back pain M54.5 [facility] [address] [place] [id number] [address] [place] [id number] Apr, Type 1 diabetes mellitus wit h hyperglycemia E10.65 [facility] [address] [facility] [id number] [address] [place] [phone] Apr, Low back pain M54.5 [facility] [address] [facility] [id number] [address] [place] [id number] Apr, [facility] [address] [place] [id number] [address] [place] [phone] Apr, [facility] [address] [facility] [id number] [address] [place] [phone] March, [facility] [address] [facility] [id number] [address] [place] [phone] March, Low back pain M54.5 [facility] [address] [facility] [id number] [address] [place] [id number] March, [facility] [address] [facility] [id number] [address] [place] [phone] Feb, [facility] [address] [facility] [id number] [address] [place] [id number] Feb, Low back pain M54.5 [facility] [address] [facility] [id number] [address] [place] [phone] Jan, Restless legs syndrome G25.8 1 [facility] [address] [place] [id number] [place] [phone] Jan, Low back pain M54.5 [facility] [address] [facility] [id number] [address] [place] [phone] Jan, [facility] [address] [facility] [id number] [address] [place] [phone] Jan, Type 1 diabetes mellitus wit hout complications E10.9 ; Low back pain M54.5 ; Cough R05 ; Diarrhea, unspecified type R19.7 ; Migraine without aura and without status migrainosus, not intractable G43.009 and Uses control Z30.9 [facility] [address] [facility] [id number] [address] [place] [phone] Dec, Low back pain M54.5 [facility] [address] [facility] [id number] [address] [place] [phone] Dec, [facility] [address] [facility] [id number] [address] [place] [phone] Nov, Well woman exam Z01.419 ; Me norrhagia with regular cycle N92.0 ; Vaginal dryness N89.8 and Migraine with aura and without status migrainosus, not intractable G43.109 [facility] [address] [facility] [id number] [address] [place] [phone] Nov, [facility] [address] [facility] [id number] [address] [place] [phone] Nov, Low back pain M54.5 [facility] [address] [place] [id number] [address] [place] [phone] Oct, Low back pain M54.5 [facility] [address] [place] [id number] [place] [phone] Oct, Migraine without aura and wi thout status migrainosus, not intractable G43.009 [facility] [address] [place] [id number] [address] [place] [phone] Sep, Low back pain M54.5 [facility] [address] [place] [id number] [address] [place] [phone] Sep, [facility] [address] [place] [id number] [place] [phone] Sep, Migraine without aura and wi thout status migrainosus, not intractable G43.009 [facility] [address] [place] [id number] [place] [phone] Sep, Type 1 diabetes mellitus wit h hypoglycemia without coma E10.649 ; Anemia D64.9 ; Migraine without aura and without status migrainosus, not intractable G43.009 ; Chronic kidney disease, unspecified N18.9 ; Autonomic neuropathy G90.9 and Postural hypotension I95.1 [facility] [address] [facility] [id number] [address] [place] [phone] Sep, Low back pain M54.5 [facility] [address] [place] [id number] [address] [place] [phone] Aug, Low back pain M54.5 [facility] [address] [place] [id number] [place] [phone] 14 Jul, 2017 [facility] [address] [facility] [id number] [address] [place] [phone] Jul, Low back pain M54.5 [facility] [address] [facility] [id number] [address] [place] [phone] Jun, [facility] [address] [facility] [id number] [address] [place] [phone] Jun, Low back pain M54.5 [facility] [address] [facility] [id number] [address] [place] [phone] Jun, Migraine without aura and wi thout status migrainosus, not intractable G43.009 [facility] [address] [facility] [id number] [address] [place] [phone] Jun, Type 1 diabetes mellitus wit h hyperglycemia E10.65 ; Dysthymia F34.1 and Migraine without aura and without status migrainosus, not intractable G43.009 [facility] [address] [facility] [id number] [address] [place] [phone] Jun, [facility] [address] [facility] [id number] [address] [place] [phone] May, Type 1 diabetes mellitus wit h hyperglycemia E10.65 [facility] [address] [facility] [id number] [address] [place] [phone] May, Low back pain M54.5 [facility] [address] [facility] [id number] [address] [place] [phone] May, Type 1 diabetes mellitus wit h hyperglycemia E10.65 [facility] [address] [facility] [id number] [address] [place] [id number] Apr, [facility] [address] [facility] [id number] [address] [place] [phone] Apr, Chronic kidney disease, stag e 4 (severe) N18.4 [facility] [address] [facility] [id number] [address] [place] [phone] Apr, Low back pain M54.5 [facility] [address] [id number] [address] [place] [phone] March, [facility] [address] [facility] [id number] [address] [place] [id number] March, Low back pain M54.5 [facility] [address] [id number] [address] [place] [phone] Feb, [facility] [address] [facility] [id number] [address] [place] [phone] Feb, [facility] [address] [facility] [id number] [address] [place] [phone] Feb, Low back pain M54.5 [facility] [address] [facility] [id number] [address] [place] [phone] Feb, Low back pain M54.5 [facility] [address] [facility] [id number] [address] [place] [phone] Feb, Migraine without aura and wi thout status migrainosus, not intractable G43.009 [facility] [address] [facility] [id number] [address] [place] [id number] Feb, [facility] [address] [facility] [id number] [address] [place] [phone] Jan, Low back pain M54.5 [facility] [address] [facility] [id number] [address] [place] [id number] Jan, Type 1 diabetes mellitus wit hout complications E10.9 ; Anemia D64.9 ; Chronic kidney disease, unspecified N18.9 ; Migraine without aura and without status migrainosus, not intractable G43.009 and Other insomnia G47.09 [facility] [address] [facility] [id number] [address] [place] [phone] Jan, [facility] [address] [facility] [id number] [address] [place] [phone] Dec, Low back pain M54.5 [facility] [address] [facility] [id number] [address] [place] [phone] Dec, [facility] [address] [facility] [id number] [address] [place] [phone] Dec, [facility] [address] [facility] [id number] [address] [place] [phone] Dec, Shortness of breath R06.02 ; Type 1 diabetes mellitus without complications E10.9 and Leg swelling M79.89 [facility] [address] [id number] [address] [place] [phone] Nov, Low back pain M54.5 [facility] [address] [facility] [id number] [address] [place] [id number] Nov, Viral syndrome B34.9 [facility] [address] [facility] [id number] [address] [place] [phone] Oct, Low back pain M54.5 [facility] [address] [facility] [id number] [address] [place] [phone] Oct, [facility] [address] [facility] [id number] [address] [place] [phone] Oct, Low back pain M54.5 [facility] [address] [facility] [id number] [address] [place] [phone] Sep, [facility] [address] [facility] [id number] [address] [place] [phone] Sep, Fatigue, unspecified type R5 3.83 ; Type 1 diabetes mellitus without complications E10.9 and Anemia D64.9 [facility] [address] [facility] [id number] [address] [place] [phone] Sep, Low back pain M54.5 [facility] [address] [facility] [id number] [address] [place] [id number] Sep, Type 1 diabetes mellitus wit h hyperglycemia E10.65 [facility] [address] [facility] [id number] [address] [place] [phone] Aug, Type 1 diabetes mellitus wit hout complications E10.9 [facility] [address] [facility] [id number] [place] [phone] Aug, [facility] [address] [facility] [id number] [address] [place] [phone] Aug, [facility] [address] [place] [id number] [place] [phone] Jul, [facility] [address] [facility] [id number] [address] [place] [phone] 14 Jul, 2016 Low back pain M54.5 [facility] [id number] [place] [id number] 12 Jul, 2016 Hyperkalemia, diminished anna al excretion E87.5 [facility] [address] [id number] 09 Jul, 2016 Hyperkalemia, diminished anna al excretion E87.5 [facility] [address] [id number] [address] [place] [phone] Jun, [facility] [id number] [place] [id number] Jun, Low back pain M54.5 [facility] [address] [id number] [address] [place] [phone] Jun, Anemia D64.9 ; Autonomic ayush ropathy G90.9 and Postural hypotension I95.1 [facility] [address] [facility] [id number] [address] [place] [id number] Jun, [facility] [id number] [place] [phone] May, Type 1 diabetes mellitus wit h complications E10.8 and Anemia D64.9 [facility] [address] [id number] [address] [place] [id number] May, Low back pain M54.5 [facility] [address] [id number] [address] [place] [phone] Apr, [facility] [address] [id number] [address] [place] [phone] Apr, Low back pain M54.5 [facility] [address] [id number] [address] [place] [id number] Apr, [facility] [address] [id number] [address] [place] [phone] Apr, [facility] [address] [id number] [address] [place] [phone] March, Low back pain M54.5 and Othe r chronic pain G89.29 [facility] [address] [id number] [address] [place] [id number] March, Type 1 diabetes mellitus wit hout complications E10.9 [facility] [address] [id number] [address] [place] [phone] March, [facility] [address] [id number] [address] [place] [id number] March, [facility] [address] [id number] [address] [place] [phone] Feb, [facility] [address] [id number] [address] [place] [id number] Feb, Type 1 diabetes mellitus wit hout complications E10.9 [facility] [address] [id number] [address] [place] [id number] Feb, Trochanteric bursitis, right hip M70.61 [facility] [address] [id number] [address] [place] [id number] Jan, [facility] [address] [id number] [address] [place] [id number] Jan, [facility] [address] [id number] [address] [place] [phone] Dec, Type 1 diabetes mellitus wit h complications E10.8 [facility] [id number] [place] [address] Dec, [facility] [address] [id number] Dec, Anemia D64.9 ; Autonomic ayush ropathy G90.9 and Postural hypotension I95.1 [facility] [address] [address] Dec, [facility] [address] [id number] Nov, Sore throat J02.9 [place] [address] [id number] Nov, Type 1 diabetes mellitus wit h complications E10.8 [place] [address] [id number] Nov, Type 1 diabetes mellitus wit h diabetic nephropathy E10.21 ; Proteinuria, unspecified R80.9 and Chronic kidney disease, unspecified N18.9 [place] [address] [id number] Nov, [facility] [address] [address] Nov, Trochanteric bursitis, right hip M70.61 [facility] [address] [address] [id number] [address] [place] [address] Nov, [facility] [address] [id number] [address] [place] [phone] Oct, [facility] [address] [address] Oct, [facility] [address] [id number] Oct, [facility] [address] [id number] Sep, [facility] [address] [id number] [address] [place] [phone] Sep, [facility] [address] [id number] [address] [place] [phone] Sep, Type 2 diabetes mellitus wit h complication E11.8 and Right hip pain M25.551 [facility] [address] [id number] [address] [place] [phone] Sep, [facility] [address] [id number] [address] [place] [phone] Aug, [facility] [address] [id number] [address] [place] [phone] Aug, [facility] [address] [id number] [address] [place] [phone] Aug, [facility] [address] [id number] [address] [place] [id number] Aug, Type 1 diabetes mellitus wit hout complications E10.9 [facility] [address] [id number] [address] [place] [phone] 16 Jul, 2015 [facility] [address] [id number] [address] [place] [id number] 15 Jul, 2015 [facility] [address] [id number] [address] [place] [phone] 14 Jul, 2015 [facility] [address] [id number] [address] [place] [phone] Jun, [facility] [address] [id number] [address] [place] [id number] Jun, [facility] [address] [id number] [address] [place] [phone] Jun, [facility] [address] [id number] [address] [place] [phone] Jun, [facility] [address] [id number] [address] [place] [phone] Jun, [facility] [address] [id number] [address] [place] [id number] Jun, Diabetes mellitus without me ntion of complication, type I [juvenile type], not stated as uncontrolled 250.01 [facility] [address] [id number] [address] [place] [phone] May, [facility] [address] [id number] [address] [place] [phone] May, [facility] [address] [id number] [address] [place] [phone] May, [facility] [address] [facility] [id number] [address] [place] [address] May, Autonomic neuropathy 337.9 ; Postural hypotension 458.0 and Anemia 285.9 [facility] [address] [facility] [id number] [address] [place] [phone] May, [facility] [address] [facility] [id number] [address] [place] [phone] Apr, [facility] [address] [facility] [id number] [address] [place] [phone] Apr, [facility] [address] [facility] [id number] [address] [place] [phone] Apr, [facility] [address] [id number] [address] [place] [phone] Apr, [facility] [address] [facility] [id number] [address] [place] [phone] Apr, [facility] [address] [facility] [id number] [address] [place] [phone] March, [facility] [address] [facility] [id number] [address] [place] [phone] March, [facility] [address] [id number] [address] [place] [phone] March, [facility] [address] [id number] [address] [place] [address], [place] [address] March, [facility] [address] [id number] [address] [place] [address], [place] [address] March, [facility] [address] [id number] [address] [place] [address], [place] [id number] Feb, [facility] [address] [id number] [address] [place] [address], [place] [address] Feb, [facility] [address] [id number] [address] [place] [address], [place] [address] Feb, [facility] [address] [id number] [address] [place] [address], [place] [address] Jan, [facility] [address] [id number] [address] [place] [address], [place] [address] Jan, [facility] [address] [id number] [address] [place] [address], [place] [address] Jan, [facility] [address] [id number] [address] [place] [address], [place] [address] Jan, [facility] [address] [id number] [address] [place] [address], [place] [address] Jan, [facility] [address] [id number] [address] [place] [address], [place] [address] Jan, [facility] [address] [id number] [address] [place] [address], [place] [address] Jan, [facility] [address] [id number] [address] [place] [address], [place] [address] Jan, [facility] [address] [id number] [address] [place] [address], [place] [address] Jan, [facility] [address] [id number] [address] [place] [address], [place] [address] Jan, [facility] [address] [id number] [address] [place] [address], [place] [address] Jan, [facility] [address] [id number] [address] [place] [address], [place] [address] Jan, [facility] [address] [id number] [address] [place] [address], [place] [address] Jan, [facility] [address] [id number] [address] [place] [address], [place] [address] Dec, [facility] [address] [id number] [address] [place] [address], [place] [id number] Dec, [facility] [address] [id number] [address] [place] [address], [place] [address] Dec, [facility] [address] [id number] [address] [place] [address], [place] [address] Dec, [facility] [address] [id number] [address] [place] [address], [place] [id number] Dec, [facility] [address] [id number] [address] [place] [address], [place] [address] Dec, [facility] [address] [id number] [address] [place] [address], [place] [id number] Dec, [facility] [address] [id number] [address] [place] [address], [place] [address] Dec, [facility] [address] [id number] [address] [place] [address], [place] [address] Nov, [facility] [address] [id number] [address] [place] [address], [place] [address] Nov, [facility] [address] [id number] [address] [place] [address], [place] [address] Nov, [facility] [address] [id number] [address] [place] [address], [place] [address] Nov, [facility] [address] [id number] [address] [place] [address], [place] [address] Nov, [facility] [address] [id number] [address] [place] [address], [place] [address] Nov, [facility] [address] [id number] [address] [place] [address], [place] [address] Nov, [facility] [address] [id number] [address] [place] [address], [place] [address] Nov, [facility] [address] [id number] [address] [place] [address], [place] [address] Nov, [facility] [address] [id number] [address] [place] [address], [place] [address] Oct, [facility] [address] [id number] [address] [place] [address], [place] [address] Oct, [facility] [address] [id number] [address] [place] [address], [place] [address] Oct, [facility] [address] [id number] [address] [place] [address], [place] [address] Oct, [facility] [address] [id number] [address] [place] [address], [place] [address] Oct, [facility] [address] [id number] [address] [place] [address], [place] [address] Oct, [facility] [address] [id number] [address] [place] [address], [place] [address] Oct, [facility] [address] [id number] [address] [place] [address], [place] [id number] Oct, [facility] [address] [id number] [address] [place] [address], [place] [address] Oct, [facility] [address] [id number] [address] [place] [address], [place] [address] Oct, [facility] [address] [id number] [address] [place] [address], [place] [address] Oct, [facility] [address] [id number] [address] [place] [address], [place] [address] Oct, [facility] [address] [id number] [address] [place] [address], [place] [address] Oct, [facility] [address] [id number] [address] [place] [address], [place] [address] Oct, [facility] [address] [id number] [address] [place] [address], [place] [address] Sep, [facility] [address] [id number] [address] [place] [address], [place] [address] Sep, [facility] [address] [id number] [address] [place] [address], [place] [address] Sep, [facility] [address] [id number] [address] [place] [address], [place] [address] Sep, [facility] [address] [id number] [address] [place] [address], [place] [address] Aug, [facility] [address] [id number] [address] [place] [address], [place] [address] Aug, [facility] [address] [id number] [address] [place] [address], [place] [address] Aug, [facility] [address] [id number] [address] [place] [address], [place] [address] Aug, [facility] [address] [id number] [address] [place] [address], [place] [address] Aug, [facility] [address] [id number] [address] [place] [address], [place] [address] Aug, [facility] [address] [id number] [address] [place] [address], [place] [address] Aug, [facility] [address] [id number] [address] [place] [address], [place] [address] Aug, [facility] [address] [id number] [address] [place] [address], [place] [address] Aug, [facility] [address] [id number] [address] [place] [address], [place] [address] Aug, [facility] [address] [id number] [address] [place] [address], [place] [address] 29 Jul, 2013 [facility] [address] [id number] [address] [place] [address], [place] [address] 29 Jul, 2013 [facility] [address] [id number] [address] [place] [address], [place] [address] 29 Jul, 2013 [facility] [address] [id number] [address] [place] [address], [place] [address] 29 Jul, 2013 [facility] [address] [id number] [address] [place] [address], [place] [address] 22 Jul, 2013 [facility] [address] [id number] [address] [place] [address], [place] [address] Jul, 2013 [facility] [address] [id number] [address] [place] [address], [place] [address] Jul, 2013 [facility] [address] [id number] [address] [place] [address], [place] [address] 19 Jul, 2013 [facility] [address] [id number] [address] [place] [address], [place] [address] 11 Jul, 2013 [facility] [address] [id number] [address] [place] [address], [place] [address] 11 Jul, 2013 [facility] [address] [id number] [address] [place] [address], [place] [address] 10 Jul, 2013 [facility] [address] [id number] [address] [place] [address], [place] [address] 10 Jul, 2013 [facility] [address] [id number] [address] [place] [address], [place] [address] 08 Jul, 2013 [facility] [address] [id number] [address] [place] [address], [place] [address] 08 Jul, 2013 [facility] [address] [id number] [address] [place] [id number] Jul, 2013 [facility] [address] [id number] [facility] [address] 03 Jul, 2013 [facility] [address] [id number] [address] [place] [address], [place] [address] Jul, [facility] [address] [id number] [address] [place] [address], [place] [address] Jul, [facility] [address] [id number] [address] [place] [address], [place] [address] Jun, [facility] [address] [id number] [address] [place] [address], [place] [address] Jun, [facility] [address] [id number] [address] [place] [address], [place] [address] Jun, [facility] [address] [id number] [address] [place] [address], [place] [address] Jun, [facility] [address] [id number] [address] [place] [address], [place] [address] Jun, [facility] [address] [id number] [address] [place] [address], [place] [address] Jun, [facility] [address] [id number] [address] [place] [address], [place] [address] Jun, [facility] [address] [id number] [address] [place] [address], [place] [address] Jun, [facility] [address] [id number] [address] [place] [address], [place] [address] Jun, [facility] [address] [id number] [address] [place] [address], [place] [address] Jun, [facility] [address] [id number] [address] [place] [address], [place] [address] Jun, [facility] [address] [id number] [address] [place] [address], [place] [address] Jun, [facility] [address] [id number] [facility] [address] Jun, [facility] [address] [id number] [facility] [address] Jun, [facility] [address] [id number] [address] [place] [address], [place] [address] Jun, [facility] [address] [id number] [address] [place] [address], [place] [address] May, [facility] [address] [id number] [address] [place] [address], [place] [address] May, [facility] [address] [id number] [address] [place] [address], [place] [address] May, [facility] [address] [id number] [address] [place] [address], [place] [address] May, [facility] [address] [id number] [address] [place] [address], [place] [address] May, [facility] [place] [facility] [address] [id number] [address] [place] [address], [place] [address] May, [facility] [place] [facility] [address] [id number] [address] [place] [address], [place] [address] May, [facility] [place] [facility] [address] [id number] [address] [place] [address], [place] [address] May, [facility] [place] [facility] [address] [id number] [address] [place] [address], [place] [address] Apr, [facility] [place] [facility] [address] [id number] [address] [place] [address], [place] [address] Apr, [facility] [place] [facility] [address] [id number] [address] [place] [address], [place] [address] Apr, [facility] [place] [facility] [address] [id number] [address] [place] [address], [place] [address] Apr, [facility] [place] [facility] [address] [id number] [address] [place] [address], [place] [address] Apr, [facility] [place] [facility] [address] [id number] [facility] [address] Apr, [facility] [place] [facility] [address] [id number] [facility] [place] [address] Apr, [facility] [place] [facility] [address] [id number] [facility] [address] Apr, [facility] [place] [facility] [address] [id number] [facility] [address] Apr, [facility] [place] [facility] [address] [id number] [facility] [address] Apr, [facility] [place] [facility] [address] [id number] [address] [place] [address], [place] [address] Apr, [facility] [place] [facility] [address] [id number] [address] [place] [address], [place] [address] Apr, [facility] [place] [facility] [address] [id number] [address] [place] [address], [place] [address] Apr, [facility] [place] [facility] [address] [id number] [address] [place] [address], [place] [address] Apr, [facility] [place] [facility] [address] [id number] [address] [place] [address], [place] [address] Apr, [facility] [place] [facility] [address] [id number] [address] [place] [address], [place] [address] Apr, [facility] [place] [facility] [address] [id number] [address] [place] [address], [place] [address] Apr, [facility] [place] [facility] [address] [id number] [address] [place] [address], [place] [address] Apr, [facility] [place] [facility] [address] [id number] [address] [place] [address], [place] [address] March, [facility] [place] [facility] [address] [id number] [address] [place] [address], [place] [address] March, [facility] [place] [facility] [address] [id number] [address] [place] [address] March, [facility] [address] [id number] [address] [place] [address], [place] [address] March, [facility] [address] [id number] [address] [place] [address], [place] [address] March, [facility] [address] [id number] [address] [place] [address], [place] [address] March, [facility] [address] [id number] [address] [place] [address], [place] [address] March, [facility] [address] [id number] [address] [place] [address], [place] [address] March, [facility] [address] [id number] [address] [place] [address], [place] [address] March, [facility] [address] [id number] [address] [place] [address], [place] [address] Feb, [facility] [address] [id number] [address] [place] [address], [place] [address] Feb, [facility] [address] [id number] [address] [place] [address], [place] [address] Feb, [facility] [address] [id number] [address] [place] [address], [place] [address] Feb, [facility] [address] [id number] [address] [place] [address], [place] [address] Feb, [facility] [address] [id number] [address] [place] [address], [place] [address] Feb, [facility] [address] [id number] [address] [place] [address], [place] [address] Feb, [facility] [address] [id number] [address] [place] [address], [place] [address] Feb, [facility] [address] [id number] [address] [place] [address], [place] [address] Feb, [facility] [facility] [address] [id number] [address] [place] [address], [place] [id number] Feb, [facility] [address] [id number] [address] [place] [address], [place] [address] Feb, [facility] [address] [id number] [address] [place] [address], [place] [address] Feb, [facility] [address] [id number] [address] [place] [address], [place] [address] Feb, [facility] [address] [id number] [address] [place] [address], [place] [address] Jan, [facility] [address] [id number] [address] [place] [address], [place] [address] Jan, [facility] [address] [id number] [address] [place] [address], [place] [address] Jan, [facility] [address] [id number] [address] [place] [address], [place] [address] Jan, [facility] [address] [id number] [address] [place] [address], [place] [address] Jan, [facility] [address] [id number] [address] [place] [address], [place] [address] Jan, [facility] [address] [id number] [address] [place] [address], [place] [address] Jan, [facility] [address] [id number] [address] [place] [address], [place] [address] Jan, [facility] [address] [id number] [address] [place] [address], [place] [address] Dec, [facility] [address] [id number] [address] [place] [address], [place] [address] Dec, [facility] [address] [id number] [address] [place] [address], [place] [id number] Dec, [facility] [address] [id number] [address] [place] [address], [place] [address] Dec, [facility] [address] [id number] [address] [place] [address], [place] [address] Dec, [facility] [address] [id number] [address] [place] [address], [place] [id number] Dec, [facility] [address] [id number] [address] [place] [address], [place] [address] Dec, [facility] [address] [id number] [address] [place] [address], [place] [address] Dec, [facility] [address] [id number] [address] [place] [address], [place] [address] Dec, [facility] [address] [id number] [address] [place] [address], [place] [address] Dec, [facility] [address] [id number] [address] [place] [address], [place] [address] Nov, [facility] [address] [id number] [address] [place] [address], [place] [address] Nov, [facility] [address] [id number] [address] [place] [address], [place] [address] Nov, [facility] [address] [id number] [address] [place] [address], [place] [address] Nov, [facility] [address] [id number] [address] [place] [address], [place] [address] Nov, [facility] [address] [id number] [address] [place] [address], [place] [address] Nov, [facility] [address] [id number] [address] [place] [address], [place] [address] Nov, [facility] [address] [id number] [address] [place] [address], [place] [address] Nov, [facility] [address] [id number] [address] [place] [address], [place] [address] Nov, [facility] [address] [id number] [address] [place] [address], [place] [address] Nov, [facility] [address] [id number] [address] [place] [address], [place] [address] Oct, [facility] [address] [id number] [address] [place] [address], [place] [address] Oct, [facility] [address] [id number] [address] [place] [address], [place] [address] 18 Oct, 2013 [facility] [address] [id number] [address] [place] [address], [place] [address] 18 Oct, 2013 [facility] [address] [id number] [address] [place] [address], [place] [address] 17 Oct, 2013 [facility] [address] [id number] [address] [place] [address], [place] [address] 17 Oct, 2013 [facility] [address] [id number] [address] [place] [address], [place] [address] 16 Oct, 2013 [facility] [address] [id number] [address] [place] [address], [place] [address] 16 Oct, 2013 [facility] [address] [id number] [address] [place] [address], [place] [address] Oct, [facility] [address] [id number] [address] [place] [address], [place] [address] Oct, [facility] [address] [id number] [address] [place] [address], [place] [address] 04 Oct, 2013 [facility] [address] [id number] [address] [place] [address], [place] [address] Oct, [facility] [address] [id number] [address] [place] [address], [place] [address] 04 Oct, 2013 [facility] [address] [id number] [address] [place] [address], [place] [id number] 04 Oct, 2013 [facility] [address] [id number] [address] [place] [phone] Sep, [facility] [address] [id number] [address] [place] [address], [place] [address] Sep, [facility] [address] [id number] [address] [place] [id number] Sep, [facility] [address] [id number] [address] [place] [phone] Sep, [facility] [address] [id number] [address] [place] [phone] Sep, [facility] [address] [id number] [address] [place] [address], [place] [address] Sep, [facility] [address] [id number] [address] [place] [phone] Aug, [facility] [address] [id number] [address] [place] [phone] Aug, [facility] [address] [id number] [address] [place] [phone] Aug, [facility] [address] [id number] [address] [place] [id number] Aug, [facility] [address] [id number] [address] [place] [phone] Aug, [facility] [address] [id number] [address] [place] [phone] Aug, [facility] [address] [id number] [address] [place] [phone] Aug, [facility] [address] [id number] [address] [place] [phone] Aug, [facility] [address] [id number] [address] [place] [phone] Aug, [facility] [address] [id number] [address] [place] [phone] 25 Jul, 2013 [facility] [address] [id number] [address] [place] [address], [place] [address] 23 Jul, 2012 [facility] [address] [id number] [address] [place] [address], [place] [address] 21 Jul, 2012 [facility] [address] [id number] [address] [place] [address], [place] [address] 20 Jul, 2012 [facility] [address] [id number] [address] [place] [address], [place] [address] 18 Jul, 2012 [facility] [address] [id number] [address] [place] [address], [place] [address] 17 Jul, 2012 [facility] [address] [id number] [address] [place] [address], [place] [address] 16 Jul, 2012 [facility] [address] [id number] [address] [place] [address], [place] [address] 11 Jul, 2012 [facility] [address] [id number] [address] [place] [address], [place] [address] 09 Jul, 2012 [facility] [address] [id number] [address] [place] [address], [place] [address] 09 Jul, 2012 [facility] [address] [id number] [address] [place] [address], [place] [address] 06 Jul, 2012 [facility] [address] [id number] [address] [place] [address], [place] [address] 03 Jul, 2012 [facility] [address] [id number] [address] [place] [address], [place] [address] Jun, [facility] [address] [id number] [address] [place] [address], [place] [address] Jun, [facility] [address] [id number] [address] [place] [address], [place] [address] Jun, [facility] [address] [id number] [address] [place] [address], [place] [address] Jun, [facility] [address] [id number] [address] [place] [address], [place] [address] Jun, [facility] [address] [id number] [address] [place] [address], [place] [address] Jun, [facility] [address] [id number] [address] [place] [address], [place] [address] Jun, [facility] [address] [id number] [address] [place] [address], [place] [address] Jun, [facility] [address] [id number] [address] [place] [address], [place] [address] Jun, [facility] [address] [id number] [address] [place] [address], [place] [address] May, [facility] [address] [id number] [address] [place] [address], [place] [address] May, [facility] [address] [id number] [address] [place] [address], [place] [address] May, [facility] [address] [id number] [address] [place] [address], [place] [address] May, [facility] [address] [id number] [address] [place] [address], [place] [address] May, [facility] [address] [id number] [address] [place] [address], [place] [address] May, [facility] [address] [id number] [address] [place] [address], [place] [address] May, [facility] [address] [id number] [address] [place] [address], [place] [address] March, [facility] [address] [id number] [address] [place] [address], [place] [address] March, [facility] [address] [id number] [address] [place] [address], [place] [address] March, [facility] [address] [id number] [address] [place] [address], [place] [address] Dec, [facility] [address] [id number] [address] [place] [address], [place] [address] Nov, [facility] [address] [id number] [address] [place] [address], [place] [address] Aug, [facility] [address] [id number] [address] [place] [address], [place] [address] Aug, [facility] [address] [id number] [address] [place] [address], [place] [address] Jun, [facility] [address] [id number] [address] [place] [address], [place] [address] Jun, [facility] [address] [id number] [address] [place] [address], [place] [address] Jun, [facility] [address] [id number] [address] [place] [address], [place] [address] Jun, [facility] [address] [id number] [address] [place] [address], [place] [address] May, [facility] [address] [id number] [address] [place] [address], [place] [address] May, [facility] [address] [id number] [address] [place] [address], [place] [address] May, [facility] [address] [id number] [address] [place] [address], [place] [address] May, [facility] [address] [id number] [address] [place] [address], [place] [address] May, [facility] [address] [id number] [address] [place] [address], [place] [address] May, [facility] [address] [id number] [address] [place] [address], [place] [address] May, [facility] [address] [id number] [address] [place] [address], [place] [address] Apr, [facility] [address] [id number] [address] [place] [address], [place] [address] Apr, [facility] [address] [id number] [address] [place] [address], [place] [address] Apr, [facility] [address] [id number] [address] [place] [address], [place] [address] Apr, [facility] [address] [id number] [address] [place] [address], [place] [address] March, [facility] [address] [id number] [address] [place] [address], [place] [address] March, [facility] [address] [id number] [address] [place] [address], [place] [address] March, [facility] [address] [id number] [address] [place] [address], [place] [address] March, [facility] [address] [id number] [address] [place] [address], [place] [address] March, [facility] [address] [id number] [address] [place] [address], [place] [address] March, [facility] [address] [id number] [address] [place] [address], [place] [address] March, [facility] [address] [id number] [address] [place] [address], [place] [address] March, [facility] [address] [id number] [address] [place] [address], [place] [address] March, [facility] [address] [id number] [address] [place] [address], [place] [address] Feb, [facility] [address] [id number] [address] [place] [address], [place] [address] Feb, [facility] [address] [id number] [address] [place] [address], [place] [address] Jan, [facility] [address] [id number] [address] [place] [address], [place] [address] Jan, [facility] [address] [id number] [address] [place] [address], [place] [address] 16 Jan, 2012 [facility] [address] [id number] [address] [place] [address], [place] [address] 05 Jan, 2012 [facility] [address] [id number] [address] [place] [address], [place] [address] 20 Dec, 2011 [facility] [address] [id number] [address] [place] [address], [place] [address] 16 Dec, 2011 [facility] [address] [id number] [address] [place] [address], [place] [address] 15 Dec, 2011 [facility] [address] [id number] [address] [place] [address], [place] [address] 30 Nov, 2011 [facility] [address] [id number] [address] [place] [address], [place] [address] 19 Oct, 2011 [facility] [address] [id number] [address] [place] [address], [place] [address] 15 Oct, 2011 [facility] [address] [id number] [address] [place] [address], [place] [address] 15 Oct, 2011 [facility] [address] [id number] [address] [place] [address], [place] [address] 14 Oct, 2011 [facility] [address] [id number] [address] [place] [address], [place] [address] 14 Oct, 2011 [facility] [address] [id number] [address] [place] [address], [place] [address] 12 Oct, 2011 [facility] [address] [id number] [address] [place] [address], [place] [address] 09 Oct, 2011 [facility] [address] [id number] [address] [place] [address], [place] [address] Oct, [facility] [address] [id number] [address] [place] [address], [place] [id number] 22 Sep, 2011 [facility] [address] [id number] [address] [place] [address], [place] [address] 17 Sep, 2011 [facility] [address] [id number] [address] [place] [id number] 14 Sep, 2011 [facility] [address] [id number] [address] [place] [id number] 10 Sep, 2011 [facility] [address] [id number] [address] [place] [id number] 10 Sep, 2011 [facility] [address] [id number] [address] [place] [id number] 09 Sep, 2011 [facility] [address] [id number] [address] [place] [phone] Sep, [facility] [address] [id number] [address] [place] [id number] Sep, [facility] [address] [id number] [address] [place] [id number] Sep, [facility] [address] [id number] [address] [place] [id number] Aug, [facility] [address] [id number] [address] [place] [id number] Jul, [facility] [address] [id number] [address] [place] [id number] Oct, [facility] [address] [id number] [address] [place] [id number] Oct, [facility] [address] [id number] [address] [place] [id number] Oct, IMMUNIZATIONS No Known Immunizations SOCIAL HISTORY [...]
--- OUTSIDE RECORDS SUMMARY | 2020-03-19 05:50 | XMS REPORT ---
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 03161795 Problem Chronic kidney disease, unspecified N18.9 Active 801361243 Problem Anemia, unspecified D64.9 Active 907200026 Problem Irritable bowel K58.9 Active 1074 3008 Problem Type 1 diabetes mellitus without complications E10 .9 Active 202624228 Problem Migraine G43.909 Active 82768576 Problem Irritable bowel syndrome with diarrhea K58.0 Active 767907688 Problem Peritoneal dialysis status Z99.2 Act moody 290187277 Problem Essential hypertension I10 Active 86585743 Problem Intractable migraine without aura and with status migr ainosus G43.011 Active 974760532 Problem Type 1 diabetes mellitus with hypoglycemia without coma E10.649 Active 56553229 Problem Type 1 diabetes mellitus with hyperglycemia E10.65 Active 64966609 Problem Dysthymia F34.1 Active 79778907 Problem Chronic kidney disease, stage 4 (severe) N18.4 Active 361447169 Problem Migraine with aura and without status migrainosu s, not intractable G43.109 Active 9681186 Problem Autonomic neuropathy G90.9 Active 101782574 Problem Type 1 diabetes mellitus with complications E10.8 Active 769173295 Problem Menorrhagia with regular cycle N92.0 Active 899238317 Problem Lymphedema I89.0 Active 456018142 Problem Claudication I73.9 Active 6346184 6 Problem Other chronic pain G89.29 Active 8 5774749 Problem Diastolic dysfunction I51.89 Active 6014084 Problem ESRF (end stage renal failure) N18.6 Active 99420623 Problem 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 Active 857669706 Problem Migraine without aura and without status migrain osus, not intractable G43.009 Active 299192075 Problem Type 1 diabetes mellitus with foot ulcer E10.621 Active 36863675960967819 Problem Low back pain M54.5 Active 560797 009 Problem Other insomnia G47.09 Active 53617 2000 Problem Restless legs G25.81 Active 116708 08 Problem Hyperthyroidism E05.90 Active 3448 6009 Problem Moderate episode of recurrent major depressive disorder F33.1 Active 089688118 Problem Primary insomnia F51.01 Active 397 2004 ALLERGIES No Information ENCOUNTERS Encounter Location Date Diagnosis [facility] [address] [address] 15 Apr, 2020 [place] [address] [address] 13 Feb, 2020 Irritable bowel syndrome wit h diarrhea K58.0 [facility] [address] [place] [id number] [address] [place] [id number] 13 Feb, 2020 Irritable bowel syndrome wit h diarrhea K58.0 [facility] [address] [place] [id number] [address] [place] [address] 13 Feb, 2020 [facility] [address] [place] [id number] [place] [id number] 28 Jan, 2020 Type 1 diabetes mellitus wit h foot ulcer E10.621 and Non-pressure chronic ulcer of other part of right foot limited to breakdown of skin L97.511 [facility] [address] [place] [id number] [address] [place] [id number] 23 Jan, 2020 Type 1 diabetes mellitus wit h diabetic nephropathy E10.21 [facility] [address] [place] [id number] [address] [place] [id number] 20 Jan, 2020 [facility] [address] [place] [id number] [place] [id number] 16 Jan, 2020 Migraine without aura and wi thout status migrainosus, not intractable G43.009 and Type 1 diabetes mellitus with hypoglycemia without coma E10.649 [facility] [address] [place] [id number] [address] [place] [address] Jan, [facility] [address] [place] [id number] [place] [id number] 10 Jan, 2020 Type 1 diabetes mellitus wit h hyperglycemia E10.65 ; Orthostatic hypotension I95.1 and Restless legs G25.81 [facility] [address] [facility] [id number] [address] [place] [id number] 06 Dec, 2019 Caries K02.9 and Dental exam ination Z01.20 [facility] [address] [place] [id number] [place] [id number] 30 Oct, 2019 Restless legs G25.81 [place] [address] [place] [id number] [place] [address] 16 Oct, 2019 Encounter for Medicare annua l wellness exam Z00.00 ; 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 ; Migraine without aura and without status migrainosus, not intractable G43.009 ; Chronic kidney disease, stage 4 (severe) N18.4 ; Claudication I73.9 ; Peritoneal dialysis status Z99.2 ; Diastolic dysfunction I51.89 ; Primary insomnia F51.01 and Burn T30.0 [facility] [address] [place] [id number] [place] [id number] Sep, Moderate episode of recurren t major depressive disorder F33.1 and Primary insomnia F51.01 [facility] [address] [place] [id number] [place] [address] Aug, Hyperthyroidism E05.90 [facility] [address] [place] [id number] [place] [address] May, Restless legs G25.81 [facility] [address] [place] [id number] [place] [id number] May, [facility] [address] [place] [id number] [place] [id number] May, [facility] [address] [id number] [address] [place] [id number] May, Type 1 diabetes mellitus wit h hypoglycemia without coma E10.649 ; ESRF (end stage renal failure) N18.6 ; Leg cramps R25.2 ; Restless legs G25.81 and Low back pain M54.5 [facility] [address] [id number] [address] [place] [phone] Apr, Low back pain M54.5 [facility] [address] [id number] [address] [place] [phone] Apr, [facility] [address] [id number] [address] [place] [id number] March, Low back pain M54.5 [facility] [address] [id number] [address] [place] [phone] March, [facility] [address] [id number] [address] [place] [id number] Feb, Low back pain M54.5 [facility] [address] [id number] [address] [place] [phone] Jan, Low back pain M54.5 [facility] [address] [id number] [address] [place] [phone] Jan, [facility] [address] [id number] [address] [place] [id number] Jan, [facility] [address] [id number] [address] [place] [address] Jan, [facility] [address] [id number] [address] [place] [phone] Dec, Type 1 diabetes mellitus wit h hypoglycemia without coma E10.649 and Low back pain M54.5 [facility] [address] [id number] [address] [place] [phone] Dec, Low back pain M54.5 [facility] [address] [id number] [address] [place] [id number] 13 Dec, 2018 Diastolic dysfunction I51.89 ; Essential hypertension I10 and Chronic kidney disease, stage 4 (severe) N18.4 [place] [address] [place] [id number] [place] [id number] 11 Dec, 2018 RUQ abdominal pain R10.11 ; Type 1 diabetes mellitus without complications E10.9 ; Therapeutic drug monitoring Z51.81 ; Migraine with aura and without status migrainosus, not intractable G43.109 and Intractable migraine without aura and with status migrainosus G43.011 [place] [address] [place] [id number] [place] [phone] Nov, Low back pain M54.5 [place] [address] [place] [id number] [place] [address] Nov, [place] [address] [place] [id number] [place] [address] Nov, Intractable migraine without aura and with status migrainosus G43.011 ; Lymphedema I89.0 ; Pain in right shoulder M25.511 ; Other chronic pain G89.29 ; Irritable bowel syndrome with diarrhea K58.0 ; Type 1 diabetes mellitus without complications E10.9 and Essential hypertension I10 [place] [address] [place] [id number] [place] [phone] Oct, Low back pain M54.5 [place] [address] [place] [id number] [place] [id number] Oct, [place] [address] [place] [id number] [place] [id number] Oct, Orthostatic hypotension I95. 1 ; Shortness of breath R06.02 ; Leg swelling M79.89 ; Type 1 diabetes mellitus without complications E10.9 and Claudication I73.9 [place] [address] [place] [id number] [place] [address] Sep, Low back pain M54.5 [place] [address] [id number] [address] [place] [phone] Sep, Low back pain M54.5 [facility] [address] [facility] [id number] [address] [place] [id number] Aug, [facility] [address] [facility] [id number] [address] [place] [address] Aug, Migraine without aura and wi thout status migrainosus, not intractable G43.009 [facility] [address] [id number] [address] [place] [address] Aug, Low back pain M54.5 [facility] [address] [facility] [id number] [address] [place] [address] Aug, Acute rhinosinusitis J01.90 and Sore throat J02.9 [facility] [address] [facility] [id number] [address] [place] [address] Jul, Low back pain M54.5 [facility] [address] [facility] [id number] [address] [place] [address] Jul, Migraine without aura and wi thout status migrainosus, not intractable G43.009 [facility] [address] [facility] [id number] [address] [place] [address] Jun, Low back pain M54.5 [facility] [address] [facility] [id number] [address] [place] [id number] Jun, [facility] [address] [facility] [id number] [address] [place] [address] Jun, Orthostatic hypotension I95. 1 ; Shortness of breath R06.02 ; Type 1 diabetes mellitus without complications E10.9 and Leg swelling M79.89 [facility] [address] [facility] [id number] [address] [place] [phone] Jun, Low back pain M54.5 [facility] [address] [facility] [id number] [address] [place] [phone] Jun, [facility] [address] [facility] [id number] [address] [place] [address] May, Migraine without aura and wi thout status migrainosus, not intractable G43.009 [facility] [address] [facility] [id number] [address] [place] [address] May, Migraine without aura and wi thout status migrainosus, not intractable G43.009 ; Restless legs syndrome G25.81 ; Leg cramps R25.2 ; Chronic kidney disease, unspecified N18.9 ; Postural hypotension I95.1 ; Diarrhea, unspecified type R19.7 and Cough R05 [facility] [address] [facility] [id number] [address] [place] [phone] May, [facility] [address] [facility] [id number] [address] [place] [phone] May, [facility] [address] [place] [id number] [place] [address] May, Orthostatic hypotension I95. 1 ; Shortness of breath R06.02 ; Type 1 diabetes mellitus with complications E10.8 and Leg swelling M79.89 [facility] [address] [place] [id number] [place] [address] May, [facility] [address] [place] [id number] [place] [phone] May, Low back pain M54.5 [facility] [address] [place] [id number] [place] [id number] Apr, Type 1 diabetes mellitus wit h hyperglycemia E10.65 [facility] [address] [facility] [id number] [address] [place] [address] Apr, Low back pain M54.5 [facility] [address] [facility] [id number] [address] [place] [address] Apr, [facility] [address] [place] [id number] [place] [phone] Apr, [facility] [address] [facility] [id number] [address] [place] [phone] March, [facility] [address] [facility] [id number] [address] [place] [address] March, Low back pain M54.5 [facility] [address] [facility] [id number] [address] [place] [id number] March, [facility] [address] [facility] [id number] [address] [place] [phone] Feb, [facility] [address] [facility] [id number] [address] [place] [id number] Feb, Low back pain M54.5 [facility] [address] [facility] [id number] [address] [place] [phone] Jan, Restless legs syndrome G25.8 1 [facility] [address] [place] [id number] [place] [phone] Jan, Low back pain M54.5 [facility] [address] [facility] [id number] [address] [place] [phone] Jan, [facility] [address] [facility] [id number] [address] [place] [address] Jan, Type 1 diabetes mellitus wit hout complications E10.9 ; Low back pain M54.5 ; Cough R05 ; Diarrhea, unspecified type R19.7 ; Migraine without aura and without status migrainosus, not intractable G43.009 and Uses control Z30.9 [facility] [address] [facility] [id number] [address] [place] [id number] Dec, Low back pain M54.5 [facility] [address] [facility] [id number] [address] [place] [phone] Dec, [facility] [address] [facility] [id number] [address] [place] [address] Nov, Well woman exam Z01.419 ; Me norrhagia with regular cycle N92.0 ; Vaginal dryness N89.8 and Migraine with aura and without status migrainosus, not intractable G43.109 [facility] [address] [facility] [id number] [address] [place] [address] Nov, [facility] [address] [facility] [id number] [address] [place] [phone] Nov, Low back pain M54.5 [facility] [address] [place] [id number] [place] [phone] Oct, Low back pain M54.5 [facility] [address] [place] [id number] [place] [address] Oct, Migraine without aura and wi thout status migrainosus, not intractable G43.009 [facility] [address] [place] [id number] [place] [id number] Sep, Low back pain M54.5 [facility] [address] [place] [id number] [place] [address] Sep, [facility] [address] [place] [id number] [place] [address] Sep, Migraine without aura and wi thout status migrainosus, not intractable G43.009 [facility] [address] [place] [id number] [place] [address] Sep, Type 1 diabetes mellitus wit h hypoglycemia without coma E10.649 ; Anemia D64.9 ; Migraine without aura and without status migrainosus, not intractable G43.009 ; Chronic kidney disease, unspecified N18.9 ; Autonomic neuropathy G90.9 and Postural hypotension I95.1 [facility] [address] [facility] [id number] [address] [place] [address] Sep, Low back pain M54.5 [facility] [address] [place] [id number] [address] [place] [id number] Aug, Low back pain M54.5 [facility] [address] [place] [id number] [place] [phone] 14 Jul, 2017 [facility] [address] [facility] [id number] [address] [place] [address] Jul, Low back pain M54.5 [facility] [address] [facility] [id number] [address] [place] [phone] Jun, [facility] [address] [facility] [id number] [address] [place] [address] Jun, Low back pain M54.5 [facility] [address] [facility] [id number] [address] [place] [address] Jun, Migraine without aura and wi thout status migrainosus, not intractable G43.009 [facility] [address] [facility] [id number] [address] [place] [address] Jun, Type 1 diabetes mellitus wit h hyperglycemia E10.65 ; Dysthymia F34.1 and Migraine without aura and without status migrainosus, not intractable G43.009 [facility] [address] [facility] [id number] [address] [place] [address] Jun, [facility] [address] [facility] [id number] [address] [place] [id number] May, Type 1 diabetes mellitus wit h hyperglycemia E10.65 [facility] [address] [facility] [id number] [address] [place] [address] May, Low back pain M54.5 [facility] [address] [facility] [id number] [address] [place] [address] May, Type 1 diabetes mellitus wit h hyperglycemia E10.65 [facility] [address] [facility] [id number] [address] [place] [address] Apr, [facility] [address] [facility] [id number] [address] [place] [id number] Apr, Chronic kidney disease, stag e 4 (severe) N18.4 [facility] [address] [facility] [id number] [address] [place] [address] Apr, Low back pain M54.5 [facility] [address] [id number] [address] [place] [id number] March, [facility] [address] [facility] [id number] [address] [place] [address] March, Low back pain M54.5 [facility] [address] [id number] [address] [place] [phone] Feb, [facility] [address] [facility] [id number] [address] [place] [id number] Feb, [facility] [address] [facility] [id number] [address] [place] [address] Feb, Low back pain M54.5 [facility] [address] [facility] [id number] [address] [place] [address] Feb, Low back pain M54.5 [facility] [address] [facility] [id number] [address] [place] [id number] Feb, Migraine without aura and wi thout status migrainosus, not intractable G43.009 [facility] [address] [facility] [id number] [address] [place] [address] Feb, [facility] [address] [facility] [id number] [address] [place] [id number] Jan, Low back pain M54.5 [facility] [address] [facility] [id number] [address] [place] [address] Jan, Type 1 diabetes mellitus wit hout complications E10.9 ; Anemia D64.9 ; Chronic kidney disease, unspecified N18.9 ; Migraine without aura and without status migrainosus, not intractable G43.009 and Other insomnia G47.09 [facility] [address] [facility] [id number] [address] [place] [phone] Jan, [facility] [address] [facility] [id number] [address] [place] [address] Dec, Low back pain M54.5 [facility] [address] [facility] [id number] [address] [place] [id number] Dec, [facility] [address] [facility] [id number] [address] [place] [address] Dec, [facility] [address] [facility] [id number] [address] [place] [id number] Dec, Shortness of breath R06.02 ; Type 1 diabetes mellitus without complications E10.9 and Leg swelling M79.89 [facility] [address] [id number] [address] [place] [address] Nov, Low back pain M54.5 [facility] [address] [facility] [id number] [address] [place] [address] Nov, Viral syndrome B34.9 [facility] [address] [facility] [id number] [address] [place] [phone] Oct, Low back pain M54.5 [facility] [address] [facility] [id number] [address] [place] [phone] Oct, [facility] [address] [facility] [id number] [address] [place] [phone] Oct, Low back pain M54.5 [facility] [address] [facility] [id number] [address] [place] [phone] Sep, [facility] [address] [facility] [id number] [address] [place] [address] Sep, Fatigue, unspecified type R5 3.83 ; Type 1 diabetes mellitus without complications E10.9 and Anemia D64.9 [facility] [address] [facility] [id number] [address] [place] [id number] Sep, Low back pain M54.5 [facility] [address] [facility] [id number] [address] [place] [phone] Sep, Type 1 diabetes mellitus wit h hyperglycemia E10.65 [facility] [address] [facility] [id number] [address] [place] [address] Aug, Type 1 diabetes mellitus wit hout complications E10.9 [facility] [address] [facility] [id number] [place] [phone] Aug, [facility] [address] [facility] [id number] [address] [place] [phone] Aug, [facility] [address] [place] [id number] [place] [phone] Jul, [facility] [address] [facility] [id number] [address] [place] [id number] 14 Jul, 2016 Low back pain M54.5 [facility] [id number] [place] [id number] 12 Jul, 2016 Hyperkalemia, diminished anna al excretion E87.5 [facility] [address] [phone] 09 Jul, 2016 Hyperkalemia, diminished anna al excretion E87.5 [facility] [address] [id number] [address] [place] [id number] Jun, [facility] [id number] [place] [phone] Jun, Low back pain M54.5 [facility] [id number] [place] [phone] Jun, Anemia D64.9 ; Autonomic ayush ropathy G90.9 and Postural hypotension I95.1 [facility] [address] [facility] [id number] [address] [place] [phone] Jun, [facility] [id number] [place] [phone] May, Type 1 diabetes mellitus wit h complications E10.8 and Anemia D64.9 [facility] [address] [id number] [place] [id number] May, Low back pain M54.5 [facility] [address] [id number] [address] [place] [phone] Apr, [facility] [address] [id number] [address] [place] [phone] Apr, Low back pain M54.5 [facility] [address] [id number] [address] [place] [id number] Apr, [facility] [address] [id number] [address] [place] [id number] Apr, [facility] [address] [id number] [address] [place] [id number] March, Low back pain M54.5 and Othe r chronic pain G89.29 [facility] [address] [id number] [address] [place] [id number] March, Type 1 diabetes mellitus wit hout complications E10.9 [facility] [address] [id number] [address] [place] [id number] March, [facility] [address] [id number] [address] [place] [id number] March, [facility] [address] [id number] [address] [place] [id number] Feb, [facility] [address] [id number] [address] [place] [id number] Feb, Type 1 diabetes mellitus wit hout complications E10.9 [facility] [address] [id number] [address] [place] [address] Feb, Trochanteric bursitis, right hip M70.61 [facility] [address] [id number] [address] [place] [id number] Jan, [facility] [address] [id number] [address] [place] [address] Jan, [facility] [address] [id number] [address] [place] [id number] Dec, Type 1 diabetes mellitus wit h complications E10.8 [facility] [id number] [place] [address] Dec, [facility] [address] [address] Dec, Anemia D64.9 ; Autonomic ayush ropathy G90.9 and Postural hypotension I95.1 [facility] [address] [address] Dec, [facility] [address] [address] Nov, Sore throat J02.9 [facility] [address] [address] Nov, Type 1 diabetes mellitus wit h complications E10.8 [facility] [address] [address] Nov, Type 1 diabetes mellitus wit h diabetic nephropathy E10.21 ; Proteinuria, unspecified R80.9 and Chronic kidney disease, unspecified N18.9 [facility] [address] [address] Nov, [facility] [address] [address] Nov, Trochanteric bursitis, right hip M70.61 [facility] [address] [place] [id number] [address] [place] [address] Nov, [facility] [address] [place] [id number] [address] [place] [phone] Oct, [facility] [address] [address] Oct, [facility] [address] [address] Oct, [facility] [address] [address] Sep, [facility] [address] [id number] [address] [place] [address] Sep, [facility] [address] [id number] [address] [place] [id number] Sep, Type 2 diabetes mellitus wit h complication E11.8 and Right hip pain M25.551 [facility] [address] [id number] [address] [place] [address] Sep, [facility] [address] [id number] [address] [place] [phone] Aug, [facility] [address] [id number] [address] [place] [address] Aug, [facility] [address] [id number] [address] [place] [address] Aug, [facility] [address] [id number] [address] [place] [id number] Aug, Type 1 diabetes mellitus wit hout complications E10.9 [facility] [address] [id number] [address] [place] [id number] 16 Jul, 2015 [facility] [address] [id number] [address] [place] [id number] 15 Jul, 2015 [facility] [address] [id number] [address] [place] [id number] 14 Jul, 2015 [facility] [address] [id number] [address] [place] [phone] Jun, [facility] [address] [id number] [address] [place] [phone] Jun, [facility] [address] [id number] [address] [place] [id number] Jun, [facility] [address] [id number] [address] [place] [id number] Jun, [facility] [address] [id number] [address] [place] [address] Jun, [facility] [address] [id number] [address] [place] [address] Jun, Diabetes mellitus without me ntion of complication, type I [juvenile type], not stated as uncontrolled 250.01 [facility] [address] [id number] [address] [place] [address] May, [facility] [address] [id number] [address] [place] [phone] May, [facility] [address] [id number] [address] [place] [address] May, [facility] [address] [facility] [id number] [address] [place] [address] May, Autonomic neuropathy 337.9 ; Postural hypotension 458.0 and Anemia 285.9 [facility] [address] [facility] [id number] [address] [place] [address] May, [facility] [address] [facility] [id number] [address] [place] [id number] Apr, [facility] [address] [facility] [id number] [address] [place] [address] Apr, [facility] [address] [facility] [id number] [address] [place] [phone] Apr, [facility] [address] [id number] [address] [place] [phone] Apr, [facility] [address] [facility] [id number] [address] [place] [phone] Apr, [facility] [address] [facility] [id number] [address] [place] [address] March, [facility] [address] [facility] [id number] [address] [place] [phone] March, [facility] [address] [id number] [address] [place] [address] March, [facility] [address] [id number] [address] [place] [address], [place] [address] March, [facility] [address] [id number] [address] [place] [address], [place] [address] March, [facility] [address] [id number] [address] [place] [address], [place] [id number] Feb, [facility] [address] [id number] [address] [place] [address], [place] [id number] Feb, [facility] [address] [id number] [address] [place] [address], [place] [id number] Feb, [facility] [address] [id number] [address] [place] [address], [place] [address] Jan, [facility] [address] [id number] [address] [place] [address], [place] [id number] Jan, [facility] [address] [id number] [address] [place] [address], [place] [id number] Jan, [facility] [address] [id number] [address] [place] [address], [place] [id number] Jan, [facility] [address] [id number] [address] [place] [address], [place] [id number] Jan, [facility] [address] [id number] [address] [place] [address], [place] [id number] Jan, [facility] [address] [id number] [address] [place] [address], [place] [address] Jan, [facility] [address] [id number] [address] [place] [address], [place] [id number] Jan, [facility] [address] [id number] [address] [place] [address], [place] [id number] Jan, [facility] [address] [id number] [address] [place] [address], [place] [id number] Jan, [facility] [address] [id number] [address] [place] [address], [place] [id number] Jan, [facility] [address] [id number] [address] [place] [address], [place] [id number] Jan, [facility] [address] [id number] [address] [place] [address], [place] [id number] Jan, [facility] [address] [id number] [address] [place] [address], [place] [id number] Dec, [facility] [address] [id number] [address] [place] [address], [place] [id number] Dec, [facility] [address] [id number] [address] [place] [address], [place] [id number] Dec, [facility] [address] [id number] [address] [place] [address], [place] [id number] Dec, [facility] [address] [id number] [address] [place] [address], [place] [id number] Dec, [facility] [address] [id number] [address] [place] [address], [place] [id number] Dec, [facility] [address] [id number] [address] [place] [address], [place] [id number] Dec, [facility] [address] [id number] [address] [place] [address], [place] [id number] Dec, [facility] [address] [id number] [address] [place] [address], [place] [address] Nov, [facility] [address] [id number] [address] [place] [address], [place] [id number] Nov, [facility] [address] [id number] [address] [place] [address], [place] [id number] Nov, [facility] [address] [id number] [address] [place] [address], [place] [id number] Nov, [facility] [address] [id number] [address] [place] [address], [place] [id number] Nov, [facility] [address] [id number] [address] [place] [address], [place] [address] Nov, [facility] [address] [id number] [address] [place] [address], [place] [id number] Nov, [facility] [address] [id number] [address] [place] [address], [place] [address] Nov, [facility] [address] [id number] [address] [place] [address], [place] [id number] Nov, [facility] [address] [id number] [address] [place] [address], [place] [id number] Oct, [facility] [address] [id number] [address] [place] [address], [place] [id number] Oct, [facility] [address] [id number] [address] [place] [address], [place] [id number] Oct, [facility] [address] [id number] [address] [place] [address], [place] [id number] Oct, [facility] [address] [id number] [address] [place] [address], [place] [address] Oct, [facility] [address] [id number] [address] [place] [address], [place] [id number] Oct, [facility] [address] [id number] [address] [place] [address], [place] [id number] Oct, [facility] [address] [id number] [address] [place] [address], [place] [id number] Oct, [facility] [address] [id number] [address] [place] [address], [place] [id number] Oct, [facility] [address] [id number] [address] [place] [address], [place] [id number] Oct, [facility] [address] [id number] [address] [place] [address], [place] [id number] Oct, [facility] [address] [id number] [address] [place] [address], [place] [id number] Oct, [facility] [address] [id number] [address] [place] [address], [place] [id number] Oct, [facility] [address] [id number] [address] [place] [address], [place] [id number] Oct, [facility] [address] [id number] [address] [place] [address], [place] [id number] Sep, [facility] [address] [id number] [address] [place] [address], [place] [id number] Sep, [facility] [address] [id number] [address] [place] [address], [place] [id number] Sep, [facility] [address] [id number] [address] [place] [address], [place] [id number] Sep, [facility] [address] [id number] [address] [place] [address], [place] [id number] Aug, [facility] [address] [id number] [address] [place] [address], [place] [id number] Aug, [facility] [address] [id number] [address] [place] [address], [place] [id number] Aug, [facility] [address] [id number] [address] [place] [address], [place] [address] Aug, [facility] [address] [id number] [address] [place] [address], [place] [id number] Aug, [facility] [address] [id number] [address] [place] [address], [place] [id number] Aug, [facility] [address] [id number] [address] [place] [address], [place] [id number] Aug, [facility] [address] [id number] [address] [place] [address], [place] [id number] Aug, [facility] [address] [id number] [address] [place] [address], [place] [id number] Aug, [facility] [address] [id number] [address] [place] [address], [place] [id number] Aug, [facility] [address] [id number] [address] [place] [address], [place] [id number] 29 Jul, 2013 [facility] [address] [id number] [address] [place] [address], [place] [id number] 29 Jul, 2013 [facility] [address] [id number] [address] [place] [address], [place] [id number] 29 Jul, 2013 [facility] [address] [id number] [address] [place] [address], [place] [id number] 29 Jul, 2013 [facility] [address] [id number] [address] [place] [address], [place] [id number] 22 Jul, 2013 [facility] [address] [id number] [address] [place] [address], [place] [id number] Jul, 2013 [facility] [address] [id number] [address] [place] [address], [place] [id number] Jul, 2013 [facility] [address] [id number] [address] [place] [address], [place] [id number] 19 Jul, 2013 [facility] [address] [id number] [address] [place] [address], [place] [id number] 11 Jul, 2013 [facility] [address] [id number] [address] [place] [address], [place] [id number] 11 Jul, 2013 [facility] [address] [id number] [address] [place] [address], [place] [id number] 10 Jul, 2013 [facility] [address] [id number] [address] [place] [address], [place] [id number] 10 Jul, 2013 [facility] [address] [id number] [address] [place] [address], [place] [id number] 08 Jul, 2013 [facility] [address] [id number] [address] [place] [address], [place] [id number] 08 Jul, 2013 [facility] [address] [id number] [address] [place] [id number] Jul, 2013 [facility] [address] [id number] [facility] [place] [address] 03 Jul, 2013 [facility] [address] [id number] [address] [place] [address], [place] [id number] Jul, [facility] [address] [id number] [address] [place] [address], [place] [id number] Jul, [facility] [address] [id number] [address] [place] [address], [place] [id number] Jun, [facility] [address] [id number] [address] [place] [address], [place] [address] Jun, [facility] [address] [id number] [address] [place] [address], [place] [id number] Jun, [facility] [address] [id number] [address] [place] [address], [place] [id number] Jun, [facility] [address] [id number] [address] [place] [address], [place] [id number] Jun, [facility] [address] [id number] [address] [place] [address], [place] [id number] Jun, [facility] [address] [id number] [address] [place] [address], [place] [id number] Jun, [facility] [address] [id number] [address] [place] [address], [place] [id number] Jun, [facility] [address] [id number] [address] [place] [address], [place] [id number] Jun, [facility] [address] [id number] [address] [place] [address], [place] [id number] Jun, [facility] [address] [id number] [address] [place] [address], [place] [id number] Jun, [facility] [address] [id number] [address] [place] [address], [place] [address] Jun, [facility] [address] [id number] [facility] [place] [address] Jun, [facility] [address] [id number] [facility] [place] [address] Jun, [facility] [address] [id number] [address] [place] [address], [place] [id number] Jun, [facility] [address] [id number] [address] [place] [address], [place] [address] May, [facility] [address] [id number] [address] [place] [address], [place] [id number] May, [facility] [address] [id number] [address] [place] [address], [place] [id number] May, [facility] [address] [id number] [address] [place] [address], [place] [id number] May, [facility] [address] [id number] [address] [place] [address], [place] [id number] May, [facility] [address] [id number] [address] [place] [address], [place] [id number] May, [facility] [address] [id number] [address] [place] [address], [place] [id number] May, [facility] [address] [id number] [address] [place] [address], [place] [address] May, [facility] [address] [id number] [address] [place] [address], [place] [address] Apr, [facility] [address] [id number] [address] [place] [address], [place] [id number] Apr, [facility] [address] [id number] [address] [place] [address], [place] [id number] Apr, [facility] [address] [id number] [address] [place] [address], [place] [id number] Apr, [facility] [address] [id number] [address] [place] [address], [place] [id number] Apr, [facility] [address] [id number] [facility] [place] [id number] Apr, [facility] [place] [facility] [address] [id number] [facility] [place] [place] [id number] Apr, [facility] [place] [facility] [address] [id number] [facility] [place] [place] [id number] Apr, [facility] [place] [facility] [address] [id number] [facility] [place] [id number] Apr, [facility] [place] [facility] [address] [id number] [facility] [place] [id number] Apr, [facility] [place] [facility] [address] [id number] [address] [place] [address], [place] [id number] Apr, [facility] [place] [facility] [address] [id number] [address] [place] [address], [place] [id number] Apr, [facility] [place] [facility] [address] [id number] [address] [place] [address], [place] [id number] Apr, [facility] [place] [facility] [address] [id number] [address] [place] [address], [place] [id number] Apr, [facility] [place] [facility] [address] [id number] [address] [place] [address], [place] [id number] Apr, [facility] [place] [facility] [address] [id number] [address] [place] [address], [place] [id number] Apr, [facility] [place] [facility] [address] [id number] [address] [place] [address], [place] [id number] Apr, [facility] [place] [facility] [address] [id number] [address] [place] [address], [place] [id number] Apr, [facility] [place] [facility] [address] [id number] [address] [place] [address], [place] [id number] March, [facility] [place] [facility] [address] [id number] [address] [place] [address], [place] [id number] March, [facility] [place] [facility] [address] [id number] [address] [place] [address] March, [facility] [address] [id number] [address] [place] [address], [place] [id number] March, [facility] [address] [id number] [address] [place] [address], [place] [id number] March, [facility] [address] [id number] [address] [place] [address], [place] [id number] March, [facility] [address] [id number] [address] [place] [address], [place] [id number] March, [facility] [address] [id number] [address] [place] [address], [place] [id number] March, [facility] [address] [id number] [address] [place] [address], [place] [id number] March, [facility] [address] [id number] [address] [place] [address], [place] [id number] Feb, [facility] [address] [id number] [address] [place] [address], [place] [id number] Feb, [facility] [address] [id number] [address] [place] [address], [place] [id number] Feb, [facility] [address] [id number] [address] [place] [address], [place] [id number] Feb, [facility] [address] [id number] [address] [place] [address], [place] [id number] Feb, [facility] [address] [id number] [address] [place] [address], [place] [id number] Feb, [facility] [address] [id number] [address] [place] [address], [place] [id number] Feb, [facility] [address] [id number] [address] [place] [address], [place] [id number] Feb, [facility] [address] [id number] [address] [place] [address], [place] [id number] Feb, [facility] [address] [id number] [address] [place] [address], [place] [id number] Feb, [facility] [address] [id number] [address] [place] [address], [place] [id number] Feb, [facility] [address] [id number] [address] [place] [address], [place] [id number] Feb, [facility] [address] [id number] [address] [place] [address], [place] [id number] Feb, [facility] [address] [id number] [address] [place] [address], [place] [id number] Jan, [facility] [address] [id number] [address] [place] [address], [place] [id number] Jan, [facility] [address] [id number] [address] [place] [address], [place] [id number] Jan, [facility] [address] [id number] [address] [place] [address], [place] [id number] Jan, [facility] [address] [id number] [address] [place] [address], [place] [id number] Jan, [facility] [address] [id number] [address] [place] [address], [place] [id number] Jan, [facility] [address] [id number] [address] [place] [address], [place] [id number] Jan, [facility] [address] [id number] 10 [place] [address], [place] [id number] Jan, [facility] [address] [id number] [address] [place] [address], [place] [id number] Dec, [facility] [address] [id number] [address] [place] [address], [place] [id number] Dec, [facility] [address] [id number] [address] [place] [address], [place] [id number] Dec, [facility] [address] [id number] [address] [place] [address], [place] [id number] Dec, [facility] [address] [id number] [address] [place] [address], [place] [id number] Dec, [facility] [address] [id number] [address] [place] [address], [place] [id number] Dec, [facility] [address] [id number] [address] [place] [address], [place] [id number] Dec, [facility] [address] [id number] [address] [place] [address], [place] [id number] Dec, [facility] [address] [id number] [address] [place] [address], [place] [id number] Dec, [facility] [address] [id number] [address] [place] [address], [place] [id number] Dec, [facility] [address] [id number] [address] [place] [address], [place] [id number] Nov, [facility] [address] [id number] [address] [place] [address], [place] [id number] Nov, [facility] [address] [id number] [address] [place] [address], [place] [id number] Nov, [facility] [address] [id number] [address] [place] [address], [place] [id number] Nov, [facility] [address] [id number] [address] [place] [address], [place] [id number] Nov, [facility] [address] [id number] [address] [place] [address], [place] [id number] Nov, [facility] [address] [id number] [address] [place] [address], [place] [id number] Nov, [facility] [address] [id number] [address] [place] [address], [place] [id number] Nov, [facility] [address] [id number] [address] [place] [address], [place] [id number] Nov, [facility] [address] [id number] [address] [place] [address], [place] [id number] Nov, [facility] [address] [id number] [address] [place] [address], [place] [id number] Oct, [facility] [address] [id number] [address] [place] [address], [place] [id number] Oct, [facility] [address] [id number] [address] [place] [address], [place] [id number] 18 Oct, 2013 [facility] [address] [id number] [address] [place] [address], [place] [id number] 18 Oct, 2013 [facility] [address] [id number] [address] [place] [address], [place] [id number] 17 Oct, 2013 [facility] [address] [id number] [address] [place] [address], [place] [id number] 17 Oct, 2013 [facility] [address] [id number] [address] [place] [address], [place] [id number] 16 Oct, 2013 [facility] [address] [id number] [address] [place] [address], [place] [id number] 16 Oct, 2013 [facility] [address] [id number] [address] [place] [address], [place] [id number] Oct, [facility] [address] [id number] [address] [place] [address], [place] [id number] Oct, [facility] [address] [id number] [address] [place] [address], [place] [id number] 04 Oct, 2013 [facility] [address] [id number] [address] [place] [address], [place] [id number] Oct, [facility] [address] [id number] [address] [place] [address], [place] [id number] 04 Oct, 2013 [facility] [address] [id number] [address] [place] [address], [place] [id number] 04 Oct, 2013 [facility] [address] [id number] [address] [place] [id number] Sep, [facility] [address] [id number] [address] [place] [address], [place] [id number] Sep, [facility] [address] [id number] [address] [place] [id number] Sep, [facility] [address] [id number] [address] [place] [id number] Sep, [facility] [address] [id number] [address] [place] [id number] Sep, [facility] [address] [id number] [address] [place] [address], [place] [id number] Sep, [facility] [address] [id number] [address] [place] [id number] Aug, [facility] [address] [id number] [address] [place] [id number] Aug, [facility] [address] [id number] [address] [place] [id number] Aug, [facility] [address] [id number] [address] [place] [id number] Aug, [facility] [address] [id number] [address] [place] [id number] Aug, [facility] [address] [id number] [address] [place] [id number] Aug, [facility] [address] [id number] [address] [place] [id number] Aug, [facility] [address] [id number] [address] [place] [id number] Aug, [facility] [address] [id number] [address] [place] [id number] Aug, [facility] [address] [id number] [address] [place] [id number] 25 Jul, 2013 [facility] [address] [id number] [address] [place] [address], [place] [id number] 23 Jul, 2012 [facility] [address] [id number] [address] [place] [address], [place] [id number] 21 Jul, 2012 [facility] [address] [id number] [address] [place] [address], [place] [id number] 20 Jul, 2012 [facility] [address] [id number] [address] [place] [address], [place] [id number] 18 Jul, 2012 [facility] [address] [id number] [address] [place] [address], [place] [id number] 17 Jul, 2012 [facility] [address] [id number] [address] [place] [address], [place] [id number] 16 Jul, 2012 [facility] [address] [id number] [address] [place] [address], [place] [id number] 11 Jul, 2012 [facility] [address] [id number] [address] [place] [address], [place] [id number] 09 Jul, 2012 [facility] [address] [id number] [address] [place] [address], [place] [id number] 09 Jul, 2012 [facility] [address] [id number] [address] [place] [address], [place] [id number] 06 Jul, 2012 [facility] [address] [id number] [address] [place] [address], [place] [id number] 03 Jul, 2012 [facility] [address] [id number] [address] [place] [address], [place] [id number] Jun, [facility] [address] [id number] [address] [place] [address], [place] [id number] Jun, [facility] [address] [id number] [address] [place] [address], [place] [id number] Jun, [facility] [address] [id number] [address] [place] [address], [place] [id number] Jun, [facility] [address] [id number] [address] [place] [address], [place] [id number] Jun, [facility] [address] [id number] [address] [place] [address], [place] [id number] Jun, [facility] [address] [id number] [address] [place] [address], [place] [id number] Jun, [facility] [address] [id number] [address] [place] [address], [place] [id number] Jun, [facility] [address] [id number] [address] [place] [address], [place] [id number] Jun, [facility] [address] [id number] [address] [place] [address], [place] [id number] May, [facility] [address] [id number] [address] [place] [address], [place] [id number] May, [facility] [address] [id number] [address] [place] [address], [place] [id number] May, [facility] [address] [id number] [address] [place] [address], [place] [id number] May, [facility] [address] [id number] [address] [place] [address], [place] [id number] May, [facility] [address] [id number] [address] [place] [address], [place] [id number] May, [facility] [address] [id number] [address] [place] [address], [place] [id number] May, [facility] [address] [id number] [address] [place] [address], [place] [id number] March, [facility] [address] [id number] [address] [place] [address], [place] [id number] March, [facility] [address] [id number] [address] [place] [address], [place] [id number] March, [facility] [address] [id number] [address] [place] [address], [place] [id number] Dec, [facility] [address] [id number] [address] [place] [address], [place] [id number] Nov, [facility] [address] [id number] [address] [place] [address], [place] [id number] Aug, [facility] [address] [id number] [address] [place] [address], [place] [id number] Aug, [facility] [address] [id number] [address] [place] [address], [place] [id number] Jun, [facility] [address] [id number] [address] [place] [address], [place] [id number] Jun, [facility] [address] [id number] [address] [place] [address], [place] [id number] Jun, [facility] [address] [id number] [address] [place] [address], [place] [id number] Jun, [facility] [address] [id number] [address] [place] [address], [place] [id number] May, [facility] [address] [id number] [address] [place] [address], [place] [id number] May, [facility] [address] [id number] [address] [place] [address], [place] [id number] May, [facility] [address] [id number] [address] [place] [address], [place] [id number] May, [facility] [address] [id number] [address] [place] [address], [place] [id number] May, [facility] [address] [id number] [address] [place] [address], [place] [id number] May, [facility] [address] [id number] [address] [place] [address], [place] [id number] May, [facility] [address] [id number] [address] [place] [address], [place] [id number] Apr, [facility] [address] [id number] [address] [place] [address], [place] [id number] Apr, [facility] [address] [id number] [address] [place] [address], [place] [id number] Apr, [facility] [address] [id number] [address] [place] [address], [place] [id number] Apr, [facility] [address] [id number] [address] [place] [address], [place] [id number] March, [facility] [address] [id number] [address] [place] [address], [place] [id number] March, [facility] [address] [id number] [address] [place] [address], [place] [id number] March, [facility] [address] [id number] [address] [place] [address], [place] [id number] March, [facility] [address] [id number] [address] [place] [address], [place] [id number] March, [facility] [address] [id number] [address] [place] [address], [place] [id number] March, [facility] [address] [id number] [address] [place] [address], [place] [id number] March, [facility] [address] [id number] [address] [place] [address], [place] [id number] March, [facility] [address] [id number] [address] [place] [address], [place] [id number] March, [facility] [address] [id number] [address] [place] [address], [place] [id number] Feb, [facility] [address] [id number] [address] [place] [address], [place] [id number] Feb, [facility] [address] [id number] [address] [place] [address], [place] [id number] Jan, [facility] [address] [id number] [address] [place] [address], [place] [id number] Jan, [facility] [address] [id number] [address] [place] [address], [place] [id number] 16 Jan, 2012 [facility] [address] [id number] [address] [place] [address], [place] [id number] 05 Jan, 2012 [facility] [address] [id number] [address] [place] [address], [place] [id number] 20 Dec, 2011 [facility] [address] [id number] [address] [place] [address], [place] [id number] 16 Dec, 2011 [facility] [address] [id number] [address] [place] [address], [place] [id number] 15 Dec, 2011 [facility] [address] [id number] [address] [place] [address], [place] [id number] 30 Nov, 2011 [facility] [address] [id number] [address] [place] [address], [place] [id number] 19 Oct, 2011 [facility] [address] [id number] [address] [place] [address], [place] [id number] 15 Oct, 2011 [facility] [address] [id number] [address] [place] [address], [place] [id number] 15 Oct, 2011 [facility] [address] [id number] [address] [place] [address], [place] [id number] 14 Oct, 2011 [facility] [address] [id number] [address] [place] [address], [place] [id number] 14 Oct, 2011 [facility] [address] [id number] [address] [place] [address], [place] [id number] 12 Oct, 2011 [facility] [address] [id number] [address] [place] [address], [place] [id number] 09 Oct, 2011 [facility] [address] [id number] [address] [place] [address], [place] [id number] Oct, [facility] [address] [id number] [address] [place] [address], [place] [id number] 22 Sep, 2011 [facility] [address] [id number] [address] [place] [address], [place] [id number] 17 Sep, 2011 [facility] [address] [id number] [address] [place] [id number] 14 Sep, 2011 [facility] [address] [id number] [address] [place] [id number] 10 Sep, 2011 [facility] [address] [id number] [address] [place] [id number] 10 Sep, 2011 [facility] [address] [id number] [address] [place] [id number] 09 Sep, 2011 [facility] [address] [id number] [address] [place] [id number] Sep, [facility] [address] [id number] [address] [place] [id number] Sep, [facility] [address] [id number] [address] [place] [id number] Sep, [facility] [address] [id number] [address] [place] [id number] Aug, [facility] [address] [id number] [address] [place] [id number] Jul, [facility] [address] [id number] [address] [place] [id number] Oct, [facility] [address] [id number] [address] [place] [id number] Oct, [facility] [address] [id number] [address] [place] [id number] Oct, IMMUNIZATIONS No Known Immunizations SOCIAL HISTORY [...]
--- OUTSIDE RECORDS SUMMARY | 2020-03-19 05:51 | XMS REPORT ---
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 89199924 Problem Chronic kidney disease, unspecified N18.9 Active 845143562 Problem Anemia, unspecified D64.9 Active 010399401 Problem Irritable bowel K58.9 Active 1074 3008 Problem Type 1 diabetes mellitus without complications E10 .9 Active 596369519 Problem Migraine G43.909 Active 96829964 Problem Irritable bowel syndrome with diarrhea K58.0 Active 116536988 Problem Peritoneal dialysis status Z99.2 Act moody 314291223 Problem Essential hypertension I10 Active 33386554 Problem Intractable migraine without aura and with status migr ainosus G43.011 Active 010773319 Problem Type 1 diabetes mellitus with hypoglycemia without coma E10.649 Active 92081236 Problem Type 1 diabetes mellitus with hyperglycemia E10.65 Active 12462307 Problem Dysthymia F34.1 Active 00491340 Problem Chronic kidney disease, stage 4 (severe) N18.4 Active 111344553 Problem Migraine with aura and without status migrainosu s, not intractable G43.109 Active 9670729 Problem Autonomic neuropathy G90.9 Active 098558485 Problem Type 1 diabetes mellitus with complications E10.8 Active 853833312 Problem Menorrhagia with regular cycle N92.0 Active 305092966 Problem Lymphedema I89.0 Active 116443216 Problem Claudication I73.9 Active 3016663 6 Problem Other chronic pain G89.29 Active 8 2924515 Problem Diastolic dysfunction I51.89 Active 9917847 Problem ESRF (end stage renal failure) N18.6 Active 89016247 Problem 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 Active 093640256 Problem Migraine without aura and without status migrain osus, not intractable G43.009 Active 190870939 Problem Type 1 diabetes mellitus with foot ulcer E10.621 Active 09012686580714485 Problem Low back pain M54.5 Active 754281 009 Problem Other insomnia G47.09 Active 81103 2000 Problem Restless legs G25.81 Active 809283 08 Problem Hyperthyroidism E05.90 Active 3448 6009 Problem Moderate episode of recurrent major depressive disorder F33.1 Active 020070293 Problem Primary insomnia F51.01 Active 397 2004 ALLERGIES No Information ENCOUNTERS Encounter Location Date Diagnosis [facility] [address] [facility] [id number] [address] [place] [id number] 15 Apr, 2020 [place] [address] [place] [id number] [place] [id number] 13 Feb, 2020 Irritable bowel syndrome wit h diarrhea K58.0 [place] [id number] [place] [id number] 13 Feb, 2020 Irritable bowel syndrome wit h diarrhea K58.0 [place] [address] [place] [id number] [address] [place] [id number] 13 Feb, 2020 [facility] [address] [place] [id number] [address] [place] [id number] 28 Jan, 2020 Type 1 diabetes mellitus wit h foot ulcer E10.621 and Non-pressure chronic ulcer of other part of right foot limited to breakdown of skin L97.511 [facility] [address] [place] [id number] [address] [place] [phone] 23 Jan, 2020 Type 1 diabetes mellitus wit h diabetic nephropathy E10.21 [facility] [address] [place] [id number] [address] [place] [id number] 20 Jan, 2020 [place] [address] [place] [id number] [address] [place] [id number] 16 Jan, 2020 Migraine without aura and wi thout status migrainosus, not intractable G43.009 and Type 1 diabetes mellitus with hypoglycemia without coma E10.649 [facility] [address] [place] [id number] [address] [place] [phone] Jan, [facility] [address] [facility] [id number] [address] [place] [phone] 10 Jan, 2020 Type 1 diabetes mellitus wit h hyperglycemia E10.65 ; Orthostatic hypotension I95.1 and Restless legs G25.81 [facility] [address] [id number] [address] [place] [id number] 06 Dec, 2019 Caries K02.9 and Dental exam ination Z01.20 [facility] [address] [facility] [id number] [address] [place] [phone] Oct, Restless legs G25.81 [place] [address] [facility] [id number] [address] [place] [phone] 16 Oct, 2019 Encounter for Medicare darian l wellness exam Z00.00 ; 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 ; Migraine without aura and without status migrainosus, not intractable G43.009 ; Chronic kidney disease, stage 4 (severe) N18.4 ; Claudication I73.9 ; Peritoneal dialysis status Z99.2 ; Diastolic dysfunction I51.89 ; Primary insomnia F51.01 and Burn T30.0 [place] [address] [place] [id number] [address] [place] [phone] Sep, Moderate episode of recurren t major depressive disorder F33.1 and Primary insomnia F51.01 [place] [address] [facility] [id number] [address] [place] [phone] Aug, Hyperthyroidism E05.90 [facility] [address] [facility] [id number] [address] [place] [phone] May, Restless legs G25.81 [facility] [address] [facility] [id number] [address] [place] [phone] May, [facility] [address] [facility] [id number] [address] [place] [phone] May, [place] [address] [place] [id number] [address] [place] [phone] May, Type 1 diabetes mellitus wit h hypoglycemia without coma E10.649 ; ESRF (end stage renal failure) N18.6 ; Leg cramps R25.2 ; Restless legs G25.81 and Low back pain M54.5 [facility] [address] [id number] [address] [place] [id number] Apr, Low back pain M54.5 [facility] [address] [id number] [address] [place] [id number] Apr, [facility] [address] [id number] [address] [place] [phone] March, Low back pain M54.5 [facility] [address] [id number] [address] [place] [id number] March, [facility] [address] [id number] [address] [place] [id number] Feb, Low back pain M54.5 [facility] [address] [id number] [address] [place] [phone] Jan, Low back pain M54.5 [facility] [address] [id number] [address] [place] [phone] Jan, [facility] [address] [id number] [address] [place] [id number] Jan, [facility] [address] [id number] [address] [place] [phone] Jan, [facility] [address] [id number] [address] [place] [id number] Dec, Type 1 diabetes mellitus wit h hypoglycemia without coma E10.649 and Low back pain M54.5 [facility] [address] [id number] [address] [place] [phone] Dec, Low back pain M54.5 [facility] [address] [id number] [address] [place] [phone] Dec, Diastolic dysfunction I51.89 ; Essential hypertension I10 and Chronic kidney disease, stage 4 (severe) N18.4 [place] [address] [place] [id number] [address] [place] [phone] 11 Dec, 2018 RUQ abdominal pain R10.11 ; Type 1 diabetes mellitus without complications E10.9 ; Therapeutic drug monitoring Z51.81 ; Migraine with aura and without status migrainosus, not intractable G43.109 and Intractable migraine without aura and with status migrainosus G43.011 [place] [address] [place] [id number] [place] [phone] Nov, Low back pain M54.5 [place] [address] [place] [id number] [place] [phone] Nov, [place] [address] [place] [id number] [place] [phone] Nov, Intractable migraine without aura and with status migrainosus G43.011 ; Lymphedema I89.0 ; Pain in right shoulder M25.511 ; Other chronic pain G89.29 ; Irritable bowel syndrome with diarrhea K58.0 ; Type 1 diabetes mellitus without complications E10.9 and Essential hypertension I10 [place] [address] [place] [id number] [place] [phone] Oct, Low back pain M54.5 [place] [address] [place] [id number] [place] [id number] Oct, [place] [address] [place] [id number] [place] [phone] Oct, Orthostatic hypotension I95. 1 ; Shortness of breath R06.02 ; Leg swelling M79.89 ; Type 1 diabetes mellitus without complications E10.9 and Claudication I73.9 [place] [address] [place] [id number] [address] [place] [id number] Sep, Low back pain M54.5 [place] [address] [place] [id number] [place] [phone] Sep, Low back pain M54.5 [facility] [address] [id number] [address] [place] [id number] Aug, [facility] [address] [facility] [id number] [address] [place] [id number] Aug, Migraine without aura and wi thout status migrainosus, not intractable G43.009 [facility] [address] [facility] [id number] [address] [place] [phone] Aug, Low back pain M54.5 [facility] [address] [id number] [address] [place] [id number] Aug, Acute rhinosinusitis J01.90 and Sore throat J02.9 [facility] [address] [facility] [id number] [address] [place] [phone] Jul, Low back pain M54.5 [facility] [address] [facility] [id number] [address] [place] [phone] Jul, Migraine without aura and wi thout status migrainosus, not intractable G43.009 [facility] [address] [facility] [id number] [address] [place] [phone] Jun, Low back pain M54.5 [facility] [address] [facility] [id number] [address] [place] [id number] Jun, [facility] [address] [facility] [id number] [address] [place] [id number] Jun, Orthostatic hypotension I95. 1 ; Shortness of breath R06.02 ; Type 1 diabetes mellitus without complications E10.9 and Leg swelling M79.89 [facility] [address] [facility] [id number] [address] [place] [phone] Jun, Low back pain M54.5 [facility] [address] [facility] [id number] [address] [place] [phone] Jun, [facility] [address] [facility] [id number] [address] [place] [id number] May, Migraine without aura and wi thout status migrainosus, not intractable G43.009 [facility] [address] [facility] [id number] [address] [place] [id number] May, Migraine without aura and wi thout status migrainosus, not intractable G43.009 ; Restless legs syndrome G25.81 ; Leg cramps R25.2 ; Chronic kidney disease, unspecified N18.9 ; Postural hypotension I95.1 ; Diarrhea, unspecified type R19.7 and Cough R05 [facility] [address] [id number] [address] [place] [id number] May, [facility] [address] [facility] [id number] [address] [place] [phone] May, [place] [address] [facility] [id number] [address] [place] [id number] May, Orthostatic hypotension I95. 1 ; Shortness of breath R06.02 ; Type 1 diabetes mellitus with complications E10.8 and Leg swelling M79.89 [facility] [address] [facility] [id number] [address] [place] [phone] May, [facility] [address] [facility] [id number] [address] [place] [phone] May, Low back pain M54.5 [facility] [address] [facility] [id number] [address] [place] [phone] Apr, Type 1 diabetes mellitus wit h hyperglycemia E10.65 [facility] [address] [id number] [address] [place] [id number] Apr, Low back pain M54.5 [facility] [address] [facility] [id number] [address] [place] [id number] Apr, [facility] [address] [facility] [id number] [address] [place] [id number] Apr, [facility] [address] [facility] [id number] [address] [place] [phone] March, [facility] [address] [facility] [id number] [address] [place] [phone] March, Low back pain M54.5 [facility] [address] [facility] [id number] [address] [place] [id number] March, [facility] [address] [facility] [id number] [address] [place] [phone] Feb, [facility] [address] [facility] [id number] [address] [place] [phone] Feb, Low back pain M54.5 [facility] [address] [facility] [id number] [address] [place] [phone] Jan, Restless legs syndrome G25.8 1 [facility] [address] [facility] [id number] [address] [place] [id number] Jan, Low back pain M54.5 [facility] [address] [facility] [id number] [address] [place] [phone] Jan, [facility] [address] [facility] [id number] [address] [place] [phone] Jan, Type 1 diabetes mellitus wit hout complications E10.9 ; Low back pain M54.5 ; Cough R05 ; Diarrhea, unspecified type R19.7 ; Migraine without aura and without status migrainosus, not intractable G43.009 and Uses control Z30.9 [facility] [address] [facility] [id number] [address] [place] [phone] Dec, Low back pain M54.5 [facility] [address] [facility] [id number] [address] [place] [id number] Dec, [facility] [address] [facility] [id number] [address] [place] [phone] Nov, Well woman exam Z01.419 ; Me norrhagia with regular cycle N92.0 ; Vaginal dryness N89.8 and Migraine with aura and without status migrainosus, not intractable G43.109 [facility] [address] [facility] [id number] [address] [place] [phone] Nov, [facility] [address] [facility] [id number] [address] [place] [id number] Nov, Low back pain M54.5 [facility] [address] [facility] [id number] [address] [place] [phone] Oct, Low back pain M54.5 [facility] [address] [facility] [id number] [address] [place] [phone] Oct, Migraine without aura and wi thout status migrainosus, not intractable G43.009 [place] [address] [place] [id number] [place] [phone] Sep, Low back pain M54.5 [facility] [address] [place] [id number] [place] [phone] Sep, [facility] [address] [place] [id number] [place] [phone] Sep, Migraine without aura and wi thout status migrainosus, not intractable G43.009 [place] [address] [place] [id number] [place] [phone] Sep, Type 1 diabetes mellitus wit h hypoglycemia without coma E10.649 ; Anemia D64.9 ; Migraine without aura and without status migrainosus, not intractable G43.009 ; Chronic kidney disease, unspecified N18.9 ; Autonomic neuropathy G90.9 and Postural hypotension I95.1 [facility] [address] [facility] [id number] [address] [place] [phone] Sep, Low back pain M54.5 [facility] [address] [place] [id number] [address] [place] [phone] 04 Aug, 2017 Low back pain M54.5 [facility] [address] [place] [id number] [address] [place] [phone] 14 Jul, 2017 [facility] [address] [place] [id number] [address] [place] [phone] Jul, Low back pain M54.5 [facility] [address] [id number] [address] [place] [phone] Jun, [facility] [address] [id number] [address] [place] [phone] Jun, Low back pain M54.5 [facility] [address] [id number] [address] [place] [id number] Jun, Migraine without aura and wi thout status migrainosus, not intractable G43.009 [facility] [address] [id number] [address] [place] [id number] Jun, Type 1 diabetes mellitus wit h hyperglycemia E10.65 ; Dysthymia F34.1 and Migraine without aura and without status migrainosus, not intractable G43.009 [facility] [address] [id number] [address] [place] [phone] Jun, [facility] [address] [id number] [address] [place] [phone] May, Type 1 diabetes mellitus wit h hyperglycemia E10.65 [facility] [address] [id number] [address] [place] [id number] May, Low back pain M54.5 [facility] [address] [id number] [address] [place] [id number] May, Type 1 diabetes mellitus wit h hyperglycemia E10.65 [facility] [address] [id number] [address] [place] [id number] Apr, [facility] [address] [id number] [address] [place] [id number] Apr, Chronic kidney disease, stag e 4 (severe) N18.4 [facility] [address] [id number] [address] [place] [phone] Apr, Low back pain M54.5 [facility] [address] [facility] [id number] [address] [place] [id number] March, [facility] [address] [id number] [address] [place] [phone] March, Low back pain M54.5 [facility] [address] [id number] [address] [place] [phone] Feb, [facility] [address] [id number] [address] [place] [phone] Feb, [facility] [address] [id number] [address] [place] [phone] Feb, Low back pain M54.5 [facility] [address] [facility] [id number] [address] [place] [id number] Feb, Low back pain M54.5 [facility] [address] [facility] [id number] [address] [place] [phone] Feb, Migraine without aura and wi thout status migrainosus, not intractable G43.009 [facility] [address] [id number] [address] [place] [id number] Feb, [facility] [address] [facility] [id number] [address] [place] [phone] Jan, Low back pain M54.5 [facility] [address] [facility] [id number] [address] [place] [phone] Jan, Type 1 diabetes mellitus wit hout complications E10.9 ; Anemia D64.9 ; Chronic kidney disease, unspecified N18.9 ; Migraine without aura and without status migrainosus, not intractable G43.009 and Other insomnia G47.09 [facility] [address] [id number] [address] [place] [phone] Jan, [facility] [address] [facility] [id number] [address] [place] [phone] Dec, Low back pain M54.5 [facility] [address] [facility] [id number] [address] [place] [id number] Dec, [facility] [address] [facility] [id number] [address] [place] [phone] Dec, [facility] [address] [facility] [id number] [address] [place] [phone] Dec, Shortness of breath R06.02 ; Type 1 diabetes mellitus without complications E10.9 and Leg swelling M79.89 [facility] [address] [facility] [id number] [address] [place] [phone] Nov, Low back pain M54.5 [facility] [address] [facility] [id number] [address] [place] [phone] Nov, Viral syndrome B34.9 [facility] [address] [facility] [id number] [address] [place] [id number] Oct, Low back pain M54.5 [facility] [address] [facility] [id number] [address] [place] [phone] Oct, [facility] [address] [facility] [id number] [address] [place] [id number] Oct, Low back pain M54.5 [facility] [address] [facility] [id number] [address] [place] [phone] Sep, [facility] [address] [facility] [id number] [address] [place] [id number] Sep, Fatigue, unspecified type R5 3.83 ; Type 1 diabetes mellitus without complications E10.9 and Anemia D64.9 [facility] [address] [facility] [id number] [address] [place] [phone] Sep, Low back pain M54.5 [facility] [address] [facility] [id number] [address] [place] [phone] Sep, Type 1 diabetes mellitus wit h hyperglycemia E10.65 [facility] [address] [facility] [id number] [address] [place] [phone] Aug, Type 1 diabetes mellitus wit hout complications E10.9 [facility] [address] [facility] [id number] [address] [place] [phone] Aug, [facility] [address] [facility] [id number] [place] [id number] Aug, [facility] [address] [facility] [id number] [address] [place] [phone] Jul, [facility] [address] [place] [id number] [place] [phone] 14 Jul, 2016 Low back pain M54.5 [facility] [address] [facility] [id number] [place] [id number] 12 Jul, 2016 Hyperkalemia, diminished anna al excretion E87.5 [facility] [address] [facility] [id number] [place] [id number] 09 Jul, 2016 Hyperkalemia, diminished anna al excretion E87.5 [facility] [address] [place] [id number] [address] [place] [id number] Jun, [facility] [address] [place] [id number] [place] [phone] Jun, Low back pain M54.5 [facility] [address] [place] [id number] [place] [id number] Jun, Anemia D64.9 ; Autonomic ayush ropathy G90.9 and Postural hypotension I95.1 [facility] [id number] [place] [id number] Jun, [facility] [address] [place] [id number] [address] [place] [id number] May, Type 1 diabetes mellitus wit h complications E10.8 and Anemia D64.9 [facility] [address] [facility] [facility] [id number] [address] [place] [id number] May, Low back pain M54.5 [facility] [address] [facility] [id number] [address] [place] [address] Apr, [facility] [address] [id number] [address] [place] [address] Apr, Low back pain M54.5 [facility] [address] [id number] [address] [place] [address] Apr, [facility] [address] [id number] [address] [place] [address] Apr, [facility] [address] [id number] [address] [place] [address] March, Low back pain M54.5 and Othe r chronic pain G89.29 [facility] [address] [id number] [address] [place] [address] March, Type 1 diabetes mellitus wit hout complications E10.9 [facility] [address] [id number] [address] [place] [address] March, [facility] [address] [id number] [address] [place] [address] March, [facility] [address] [id number] [address] [place] [address] Feb, [facility] [address] [id number] [address] [place] [address] Feb, Type 1 diabetes mellitus wit hout complications E10.9 [facility] [address] [id number] [address] [place] [id number] Feb, Trochanteric bursitis, right hip M70.61 [facility] [address] [id number] [address] [place] [address] Jan, [facility] [address] [id number] [address] [place] [address] Jan, [facility] [address] [id number] [address] [place] [address] Dec, Type 1 diabetes mellitus wit h complications E10.8 [facility] [address] [id number] [address] [place] [address] Dec, [facility] [address] [facility] [id number] [address] [place] [id number] Dec, Anemia D64.9 ; Autonomic ayush ropathy G90.9 and Postural hypotension I95.1 [facility] [address] [place] [id number] [address] [place] [address] Dec, [facility] [address] [address] Nov, Sore throat J02.9 [facility] [address] [place] [id number] [place] [address] Nov, Type 1 diabetes mellitus wit h complications E10.8 [facility] [address] [place] [id number] [place] [address] Nov, Type 1 diabetes mellitus wit h diabetic nephropathy E10.21 ; Proteinuria, unspecified R80.9 and Chronic kidney disease, unspecified N18.9 [facility] [id number] [place] [address] Nov, [facility] [address] [address] Nov, Trochanteric bursitis, right hip M70.61 [facility] [id number] [place] [address] Nov, [facility] [address] [place] [id number] [address] [place] [address] Oct, [facility] [address] [place] [id number] [address] [place] [address] Oct, [facility] [address] [place] [id number] [address] [place] [address] Oct, [facility] [address] [place] [id number] [address] [place] [address] Sep, [facility] [address] [place] [id number] [place] [address] [place] [address] Sep, [facility] [address] [id number] [address] [place] [address] Sep, Type 2 diabetes mellitus wit h complication E11.8 and Right hip pain M25.551 [facility] [address] [id number] [address] [place] [address] Sep, [facility] [address] [id number] [address] [place] [address] Aug, [facility] [address] [id number] [address] [place] [address] Aug, [facility] [address] [id number] [address] [place] [address] Aug, [facility] [address] [id number] [address] [place] [address] Aug, Type 1 diabetes mellitus wit hout complications E10.9 [facility] [address] [id number] [address] [place] [id number] 16 Jul, 2015 [facility] [address] [id number] [address] [place] [id number] 15 Jul, 2015 [facility] [address] [id number] [address] [place] [id number] 14 Jul, 2015 [facility] [address] [id number] [address] [place] [phone] Jun, [facility] [address] [id number] [address] [place] [address] Jun, [facility] [address] [id number] [address] [place] [phone] Jun, [facility] [address] [id number] [address] [place] [id number] Jun, [facility] [address] [id number] [address] [place] [address] Jun, [facility] [address] [id number] [address] [place] [address] Jun, Diabetes mellitus without me ntion of complication, type I [juvenile type], not stated as uncontrolled 250.01 [facility] [address] [id number] [address] [place] [address] May, [facility] [address] [id number] [address] [place] [address] May, [facility] [address] [id number] [address] [place] [address] May, [facility] [address] [id number] [address] [place] [address] May, Autonomic neuropathy 337.9 ; Postural hypotension 458.0 and Anemia 285.9 [facility] [address] [id number] [address] [place] [address] May, [facility] [address] [id number] [address] [place] [address] Apr, [facility] [address] [id number] [address] [place] [id number] Apr, [facility] [address] [id number] [address] [place] [id number] Apr, [facility] [address] [id number] [address] [place] [id number] Apr, [facility] [address] [id number] [address] [place] [address] Apr, [facility] [address] [id number] [address] [place] [id number] March, [facility] [address] [id number] [address] [place] [address] March, [facility] [address] [id number] [address] [place] [id number] March, [facility] [address] [id number] [address] [place] [id number] March, [facility] [address] [id number] [address] [place] [address], [place] [address] March, [facility] [address] [id number] [address] [place] [address], [place] [address] Feb, [facility] [address] [id number] [address] [place] [address], [place] [address] Feb, [facility] [address] [id number] [address] [place] [address], [place] [address] Feb, [facility] [address] [id number] [address] [place] [address], [place] [address] 30 Jan, 2015 [facility] [address] [id number] [address] [place] [address], [place] [address] Jan, [facility] [address] [id number] [address] [place] [address], [place] [address] Jan, [facility] [address] [id number] [address] [place] [address], [place] [address] Jan, [facility] [address] [id number] [address] [place] [address], [place] [address] Jan, [facility] [address] [id number] [address] [place] [address], [place] [address] Jan, [facility] [address] [id number] [address] [place] [address], [place] [address] Jan, [facility] [address] [id number] [address] [place] [address], [place] [address] Jan, [facility] [address] [id number] [address] [place] [address], [place] [address] Jan, [facility] [address] [id number] [address] [place] [address], [place] [address] Jan, [facility] [address] [id number] [address] [place] [address], [place] [address] Jan, [facility] [address] [id number] [address] [place] [address], [place] [address] Jan, [facility] [address] [id number] [address] [place] [address], [place] [address] Jan, [facility] [address] [id number] [address] [place] [address], [place] [address] Dec, [facility] [address] [id number] [address] [place] [address], [place] [address] Dec, [facility] [address] [id number] [address] [place] [address], [place] [address] Dec, [facility] [address] [id number] [address] [place] [address], [place] [address] Dec, [facility] [address] [id number] [address] [place] [address], [place] [address] Dec, [facility] [address] [id number] [address] [place] [address], [place] [address] Dec, [facility] [address] [id number] [address] [place] [address], [place] [address] Dec, [facility] [address] [id number] [address] [place] [address], [place] [address] Dec, [facility] [address] [id number] [address] [place] [address], [place] [address] Nov, [facility] [address] [id number] [address] [place] [phone] Nov, [facility] [address] [id number] [address] [place] [address], [place] [address] Nov, [facility] [address] [id number] [address] [place] [address], [place] [address] Nov, [facility] [address] [id number] [address] [place] [address] Nov, [facility] [address] [id number] [address] [place] [id number] Nov, [facility] [address] [id number] [address] [place] [address], [place] [address] Nov, [facility] [address] [id number] [address] [place] [address], [place] [address] Nov, [facility] [address] [id number] [address] [place] [address], [place] [address] Nov, [facility] [address] [id number] [address] [place] [address], [place] [address] Oct, [facility] [address] [id number] [address] [place] [address], [place] [address] Oct, [facility] [address] [id number] [address] [place] [address], [place] [address] Oct, [facility] [address] [id number] [address] [place] [address], [place] [address] Oct, [facility] [address] [id number] [address] [place] [address], [place] [address] Oct, [facility] [address] [id number] [address] [place] [address], [place] [address] Oct, [facility] [address] [id number] [address] [place] [address], [place] [address] Oct, [facility] [address] [id number] [address] [place] [address], [place] [address] Oct, [facility] [address] [id number] [address] [place] [address], [place] [address] Oct, [facility] [address] [id number] [address] [place] [address], [place] [address] Oct, [facility] [address] [id number] [address] [place] [address], [place] [address] Oct, [facility] [address] [id number] [address] [place] [address], [place] [address] Oct, [facility] [address] [id number] [address] [place] [address], [place] [address] Oct, [facility] [address] [id number] [address] [place] [address], [place] [address] Oct, [facility] [address] [id number] [address] [place] [address], [place] [address] Sep, [facility] [address] [id number] [address] [place] [address], [place] [address] Sep, [facility] [address] [id number] [address] [place] [address], [place] [address] Sep, [facility] [address] [id number] [address] [place] [address], [place] [address] Sep, [facility] [address] [id number] [address] [place] [address], [place] [address] Aug, [facility] [address] [id number] [address] [place] [address], [place] [address] Aug, [facility] [address] [id number] [address] [place] [address], [place] [address] Aug, [facility] [address] [id number] [address] [place] [address], [place] [address] Aug, [facility] [address] [id number] [address] [place] [address], [place] [address] Aug, [facility] [address] [id number] [address] [place] [address], [place] [address] Aug, [facility] [address] [id number] [address] [place] [address], [place] [address] Aug, [facility] [address] [id number] [address] [place] [address], [place] [address] Aug, [facility] [address] [id number] [address] [place] [address], [place] [address] Aug, [facility] [address] [id number] [address] [place] [address], [place] [address] Aug, [facility] [address] [id number] [facility] [place] [address] 29 Sep, 2013 [facility] [address] [id number] [address] [place] [address], [place] [address] 29 Jul, 2013 [facility] [address] [id number] [address] [place] [address], [place] [address] 29 Jul, 2013 [facility] [address] [id number] [address] [place] [address], [place] [address] 29 Jul, 2013 [facility] [address] [id number] [address] [place] [address], [place] [address] 22 Jul, 2013 [facility] [address] [id number] [address] [place] [address], [place] [address] 22 Jul, 2013 [facility] [address] [id number] [address] [place] [address], [place] [address] 19 Jul, 2013 [facility] [address] [id number] [address] [place] [address], [place] [address] 19 Jul, 2013 [facility] [address] [id number] [address] [place] [address], [place] [address] 11 Jul, 2013 [facility] [address] [id number] [address] [place] [address], [place] [address] 11 Jul, 2013 [facility] [address] [id number] [address] [place] [address], [place] [address] 10 Jul, 2013 [facility] [address] [id number] [address] [place] [address], [place] [address] 10 Jul, 2013 [facility] [address] [id number] [address] [place] [address], [place] [address] 08 Jul, 2013 [facility] [address] [id number] [address] [place] [address], [place] [address] 08 Jul, 2013 [facility] [address] [id number] [address] [place] [address], [place] [address] 03 Jul, 2013 [facility] [address] [id number] [address] [place] [address], [place] [address] Jul, [facility] [address] [id number] [facility] [place] [address] Jul, [facility] [address] [id number] [address] [place] [address], [place] [address] Jul, [facility] [address] [id number] [address] [place] [address], [place] [address] Jun, [facility] [address] [id number] [address] [place] [address], [place] [address] Jun, [facility] [address] [id number] [address] [place] [address], [place] [address] Jun, [facility] [address] [id number] [address] [place] [address], [place] [address] Jun, [facility] [address] [id number] [address] [place] [address], [place] [address] Jun, [facility] [address] [id number] [address] [place] [address], [place] [address] Jun, [facility] [address] [id number] [address] [place] [address], [place] [address] Jun, [facility] [address] [id number] [address] [place] [address], [place] [address] Jun, [facility] [address] [id number] [address] [place] [address], [place] [address] Jun, [facility] [address] [id number] [address] [place] [address], [place] [address] Jun, [facility] [address] [id number] [address] [place] [address], [place] [address] Jun, [facility] [address] [id number] [address] [place] [address], [place] [address] Jun, [facility] [address] [id number] [address] [place] [address], [place] [address] Jun, [facility] [address] [id number] [address] [place] [address], [place] [address] Jun, [facility] [address] [id number] [address] [place] [address], [place] [address] Jun, [facility] [address] [id number] [address] [place] [address], [place] [address] May, [facility] [address] [id number] [address] [place] [address], [place] [address] May, [facility] [address] [id number] [address] [place] [address], [place] [address] May, [facility] [address] [id number] [address] [place] [address], [place] [address] May, [facility] [address] [id number] [address] [place] [address], [place] [address] May, [facility] [address] [id number] [address] [place] [address], [place] [address] May, [facility] [address] [id number] [address] [place] [address], [place] [address] May, [facility] [address] [id number] [address] [place] [address], [place] [address] May, [facility] [address] [id number] [address] [place] [address], [place] [address] Apr, [facility] [address] [id number] [address] [place] [address], [place] [address] Apr, [facility] [address] [id number] [address] [place] [address], [place] [address] Apr, [facility] [address] [id number] [address] [place] [address], [place] [address] Apr, [facility] [address] [id number] [address] [place] [address], [place] [address] Apr, [facility] [address] [id number] [address] [place] [address], [place] [address] Apr, [facility] [address] [id number] [facility] [place] [address] Apr, [facility] [address] [id number] [address] [place] [address], [place] [address] Apr, [facility] [address] [id number] [address] [place] [address], [place] [address] Apr, [facility] [address] [id number] [address] [place] [address], [place] [address] Apr, [facility] [address] [id number] [address] [place] [address], [place] [address] Apr, [facility] [address] [id number] [address] [place] [address], [place] [address] Apr, [facility] [address] [id number] [address] [place] [address], [place] [address] Apr, [facility] [address] [id number] [address] [place] [address], [place] [address] Apr, [facility] [address] [id number] [address] [place] [address], [place] [address] Apr, [facility] [address] [id number] [address] [place] [address], [place] [address] Apr, [facility] [address] [id number] [address] [place] [address], [place] [address] Apr, [facility] [address] [id number] [address] [place] [address], [place] [address] Apr, [facility] [address] [id number] [address] [place] [address], [place] [address] March, [facility] [address] [id number] [address] [place] [address], [place] [address] March, [facility] [address] [id number] [address] [place] [address], [place] [address] March, [facility] [address] [id number] [address] [place] [address], [place] [address] March, [facility] [address] [id number] [address] [place] [address], [place] [address] March, [facility] [address] [id number] [address] [place] [address], [place] [address] March, [facility] [address] [id number] [address] [place] [address], [place] [address] March, [facility] [address] [id number] [address] [place] [address], [place] [address] March, [facility] [address] [id number] [address] [place] [address], [place] [address] March, [facility] [address] [id number] [address] [place] [address], [place] [address] Feb, [facility] [address] [id number] [address] [place] [address], [place] [address] Feb, [facility] [address] [id number] [address] [place] [address], [place] [address] Feb, [facility] [address] [id number] [address] [place] [address], [place] [address] Feb, [facility] [address] [id number] [address] [place] [address], [place] [address] Feb, [facility] [address] [id number] [address] [place] [address], [place] [address] Feb, [facility] [address] [id number] [address] [place] [address], [place] [address] Feb, [facility] [address] [id number] [address] [place] [address], [place] [address] Feb, [facility] [address] [id number] [address] [place] [address], [place] [address] Feb, [facility] [address] [id number] [address] [place] [address], [place] [address] Feb, [facility] [facility] [address] [id number] [address] [place] [address], [place] [address] Feb, [facility] [address] [id number] [address] [place] [address], [place] [address] Feb, [facility] [address] [id number] [address] [place] [address], [place] [address] Feb, [facility] [address] [id number] [address] [place] [address], [place] [address] Jan, [facility] [address] [id number] [address] [place] [address], [place] [address] Jan, [facility] [address] [id number] [address] [place] [address], [place] [address] Jan, [facility] [address] [id number] [address] [place] [address], [place] [address] Jan, [facility] [address] [id number] [address] [place] [address], [place] [address] Jan, [facility] [address] [id number] [address] [place] [address], [place] [address] Jan, [facility] [address] [id number] [address] [place] [address], [place] [address] Jan, [facility] [address] [id number] [address] [place] [address], [place] [address] Jan, [facility] [address] [id number] [address] [place] [address], [place] [address] Dec, [facility] [address] [id number] [address] [place] [address], [place] [address] Dec, [facility] [address] [id number] [address] [place] [address], [place] [address] Dec, [facility] [address] [id number] [address] [place] [address], [place] [address] Dec, [facility] [address] [id number] [address] [place] [address], [place] [address] Dec, [facility] [address] [id number] [address] [place] [address], [place] [address] Dec, [facility] [address] [id number] [address] [place] [address], [place] [address] Dec, [facility] [address] [id number] [address] [place] [address], [place] [address] Dec, [facility] [address] [id number] [address] [place] [address], [place] [address] Dec, [facility] [address] [id number] [address] [place] [address], [place] [address] Dec, [facility] [address] [id number] [address] [place] [address], [place] [address] Nov, [facility] [address] [id number] [address] [place] [address], [place] [address] Nov, [facility] [address] [id number] [address] [place] [address], [place] [address] Nov, [facility] [address] [id number] [address] [place] [address], [place] [address] Nov, [facility] [address] [id number] [address] [place] [address], [place] [address] Nov, [facility] [address] [id number] [address] [place] [address], [place] [address] Nov, [facility] [address] [id number] [address] [place] [address], [place] [address] Nov, [facility] [address] [id number] [address] [place] [address], [place] [address] Nov, [facility] [address] [id number] [address] [place] [address], [place] [address] Nov, [facility] [address] [id number] [address] [place] [address], [place] [address] Nov, [facility] [address] [id number] [address] [place] [address], [place] [address] Oct, [facility] [address] [id number] [address] [place] [address], [place] [address] Oct, [facility] [address] [id number] [address] [place] [address], [place] [address] 18 Oct, 2013 [facility] [address] [id number] [address] [place] [address], [place] [address] 18 Oct, 2013 [facility] [address] [id number] [address] [place] [address], [place] [address] 17 Oct, 2013 [facility] [address] [id number] [address] [place] [address], [place] [address] 17 Oct, 2013 [facility] [address] [id number] [address] [place] [address], [place] [address] 16 Oct, 2013 [facility] [address] [id number] [address] [place] [address], [place] [address] 16 Oct, 2013 [facility] [address] [id number] [address] [place] [address], [place] [address] Oct, [facility] [address] [id number] [address] [place] [address], [place] [address] Oct, [facility] [address] [id number] [address] [place] [address], [place] [address] Oct, [facility] [address] [id number] [address] [place] [address] Oct, [facility] [address] [id number] [address] [place] [address], [place] [address] Oct, [facility] [address] [id number] [address] [place] [address], [place] [address] Oct, [facility] [address] [id number] [address] [place] [address], [place] [address] Sep, [facility] [address] [id number] [address] [place] [address] Sep, [facility] [address] [id number] [address] [place] [address], [place] [address] Sep, [facility] [address] [id number] [address] [place] [address] 18 Sep, 2013 [facility] [address] [id number] [address] [place] [address], [place] [address] Sep, [facility] [address] [id number] [address] [place] [address] Sep, [facility] [address] [id number] [address] [place] [address], [place] [address] Aug, [facility] [address] [id number] [address] [place] [address], [place] [address] 31 Aug, 2013 [facility] [address] [id number] [address] [place] [address] Aug, [facility] [address] [id number] [address] [place] [address] 17 Aug, 2013 [facility] [address] [id number] [address] [place] [address] 10 Aug, 2013 [facility] [address] [id number] [address] [place] [address] 10 Aug, 2013 [facility] [address] [id number] [address] [place] [address] 07 Aug, 2013 [facility] [address] [id number] [address] [place] [address] 02 Aug, 2013 [facility] [address] [id number] [address] [place] [address] 02 Aug, 2013 [facility] [address] [id number] [address] [place] [address] 25 Jul, 2013 [facility] [address] [id number] [address] [place] [id number] 23 Jul, 2013 [facility] [address] [id number] [facility] [place] [address] 21 Sep, 2012 [facility] [address] [id number] [address] [place] [address], [place] [address] 20 Sep, 2012 [facility] [address] [id number] [address] [place] [address], [place] [address] 18 Sep, 2012 [facility] [address] [id number] [address] [place] [address], [place] [address] 17 Sep, 2012 [facility] [address] [id number] [address] [place] [address], [place] [address] 16 Sep, 2012 [facility] [address] [id number] [address] [place] [address], [place] [address] 11 Jul, 2012 [facility] [address] [id number] [address] [place] [address], [place] [address] 09 Jul, 2012 [facility] [address] [id number] [address] [place] [address], [place] [address] 09 Jul, 2012 [facility] [address] [id number] [address] [place] [address], [place] [address] 06 Jul, 2012 [facility] [address] [id number] [address] [place] [address], [place] [address] 03 Jul, 2012 [facility] [address] [id number] [address] [place] [address], [place] [address] Jun, [facility] [address] [id number] [address] [place] [address], [place] [address] Jun, [facility] [address] [id number] [address] [place] [address], [place] [address] Jun, [facility] [address] [id number] [address] [place] [address], [place] [address] Jun, [facility] [address] [id number] [address] [place] [address], [place] [address] Jun, [facility] [address] [id number] [address] [place] [address], [place] [address] Jun, [facility] [address] [id number] [address] [place] [address], [place] [address] Jun, [facility] [address] [id number] [address] [place] [address], [place] [address] Jun, [facility] [address] [id number] [address] [place] [address], [place] [address] Jun, [facility] [address] [id number] [address] [place] [address], [place] [address] May, [facility] [address] [id number] [address] [place] [address], [place] [address] May, [facility] [address] [id number] [address] [place] [address], [place] [address] May, [facility] [address] [id number] [address] [place] [address], [place] [address] May, [facility] [address] [id number] [address] [place] [address], [place] [address] May, [facility] [address] [id number] [address] [place] [address], [place] [address] May, [facility] [address] [id number] [address] [place] [address], [place] [address] May, [facility] [address] [id number] [address] [place] [address], [place] [address] March, [facility] [address] [id number] [address] [place] [address], [place] [address] March, [facility] [address] [id number] [address] [place] [address], [place] [address] March, [facility] [address] [id number] [address] [place] [address], [place] [address] Dec, [facility] [address] [id number] [address] [place] [address], [place] [address] Nov, [facility] [address] [id number] [address] [place] [address], [place] [address] Aug, [facility] [address] [id number] [address] [place] [address], [place] [address] Aug, [facility] [address] [id number] [address] [place] [address], [place] [address] Jun, [facility] [address] [id number] [address] [place] [address], [place] [address] Jun, [facility] [address] [id number] [address] [place] [address], [place] [address] Jun, [facility] [address] [id number] [address] [place] [address], [place] [address] Jun, [facility] [address] [id number] [address] [place] [address], [place] [address] May, [facility] [address] [id number] [address] [place] [address], [place] [address] May, [facility] [address] [id number] [address] [place] [address], [place] [address] May, [facility] [address] [id number] [address] [place] [address], [place] [address] May, [facility] [address] [id number] [address] [place] [address], [place] [address] May, [facility] [address] [id number] [address] [place] [address], [place] [address] May, [facility] [address] [id number] [address] [place] [address], [place] [address] May, [facility] [address] [id number] [address] [place] [address], [place] [address] Apr, [facility] [address] [id number] [address] [place] [address], [place] [address] Apr, [facility] [address] [id number] [address] [place] [address], [place] [address] Apr, [facility] [address] [id number] [address] [place] [address], [place] [address] Apr, [facility] [address] [id number] [address] [place] [address], [place] [address] March, [facility] [address] [id number] [address] [place] [address], [place] [address] March, [facility] [address] [id number] [address] [place] [address], [place] [address] March, [facility] [address] [id number] [address] [place] [address], [place] [address] March, [facility] [address] [id number] [address] [place] [address], [place] [address] March, [facility] [address] [id number] [address] [place] [address], [place] [address] March, [facility] [address] [id number] [address] [place] [address], [place] [address] March, [facility] [address] [id number] [address] [place] [address], [place] [address] March, [facility] [address] [id number] [address] [place] [address], [place] [address] March, [facility] [address] [id number] [address] [place] [address], [place] [address] Feb, [facility] [address] [id number] [address] [place] [address], [place] [address] Feb, [facility] [address] [id number] [address] [place] [address], [place] [address] Jan, [facility] [address] [id number] [address] [place] [address], [place] [address] Jan, [facility] [address] [id number] [address] [place] [address], [place] [address] Jan, [facility] [address] [id number] [address] [place] [address], [place] [address] 05 Jan, 2012 [facility] [address] [id number] [address] [place] [address], [place] [address] 20 Dec, 2011 [facility] [address] [id number] [address] [place] [address], [place] [address] 16 Dec, 2011 [facility] [address] [id number] [address] [place] [address], [place] [address] 15 Dec, 2011 [facility] [address] [id number] [address] [place] [address], [place] [address] 30 Nov, 2011 [facility] [address] [id number] [address] [place] [address], [place] [address] 19 Oct, 2011 [facility] [address] [id number] [address] [place] [address], [place] [address] 15 Oct, 2011 [facility] [address] [id number] [address] [place] [address], [place] [address] 15 Oct, 2011 [facility] [address] [id number] [address] [place] [address], [place] [address] 14 Oct, 2011 [facility] [address] [id number] [address] [place] [address], [place] [address] 14 Oct, 2011 [facility] [address] [id number] [address] [place] [address], [place] [address] 12 Oct, 2011 [facility] [address] [id number] [address] [place] [address], [place] [address] 09 Oct, 2011 [facility] [address] [id number] [address] [place] [address], [place] [address] Oct, [facility] [address] [id number] [address] [place] [address], [place] [address] 22 Sep, 2011 [facility] [address] [id number] [address] [place] [address], [place] [address] 17 Sep, 2011 [facility] [address] [id number] [address] [place] [address], [place] [address] 14 Sep, 2011 [facility] [address] [id number] [address] [place] [address] Sep, [facility] [address] [id number] [address] [place] [address] Sep, [facility] [address] [id number] [address] [place] [address] Sep, [facility] [address] [id number] [address] [place] [address] Sep, [facility] [address] [id number] [address] [place] [address] Sep, [facility] [address] [id number] [address] [place] [address] Sep, [facility] [address] [id number] [address] [place] [address] Aug, [facility] [address] [id number] [address] [place] [address] Jul, [facility] [address] [id number] [address] [place] [address] Oct, [facility] [address] [id number] [address] [place] [address] Oct, [facility] [address] [id number] [address] [place] [address] Oct, IMMUNIZATIONS No Known Immunizations SOCIAL HISTORY [...]
--- OUTSIDE RECORDS SUMMARY | 2020-03-19 05:51 | XMS REPORT ---
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 59463015 Problem Chronic kidney disease, unspecified N18.9 Active 331037026 Problem Anemia, unspecified D64.9 Active 094529602 Problem Irritable bowel K58.9 Active 1074 3008 Problem Type 1 diabetes mellitus without complications E10 .9 Active 035735514 Problem Migraine G43.909 Active 65762525 Problem Irritable bowel syndrome with diarrhea K58.0 Active 045447673 Problem Peritoneal dialysis status Z99.2 Act moody 999353037 Problem Essential hypertension I10 Active 50662477 Problem Intractable migraine without aura and with status migr ainosus G43.011 Active 675948423 Problem Type 1 diabetes mellitus with hypoglycemia without coma E10.649 Active 16493089 Problem Type 1 diabetes mellitus with hyperglycemia E10.65 Active 92023689 Problem Dysthymia F34.1 Active 92557385 Problem Chronic kidney disease, stage 4 (severe) N18.4 Active 346269082 Problem Migraine with aura and without status migrainosu s, not intractable G43.109 Active 3025047 Problem Autonomic neuropathy G90.9 Active 481293271 Problem Type 1 diabetes mellitus with complications E10.8 Active 628143821 Problem Menorrhagia with regular cycle N92.0 Active 598888550 Problem Lymphedema I89.0 Active 871146043 Problem Claudication I73.9 Active 3149319 6 Problem Other chronic pain G89.29 Active 8 5007821 Problem Diastolic dysfunction I51.89 Active 2577124 Problem ESRF (end stage renal failure) N18.6 Active 11411812 Problem 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 Active 684460887 Problem Migraine without aura and without status migrain osus, not intractable G43.009 Active 128940571 Problem Type 1 diabetes mellitus with foot ulcer E10.621 Active [id number] Problem Low back pain M54.5 Active 394158 009 Problem Other insomnia G47.09 Active 00924 2000 Problem Restless legs G25.81 Active 626239 08 Problem Hyperthyroidism E05.90 Active 3448 6009 Problem Moderate episode of recurrent major depressive disorder F33.1 Active 286771413 Problem Primary insomnia F51.01 Active 397 2004 ALLERGIES No Information ENCOUNTERS Encounter Location Date Diagnosis [facility] [address] [facility] [id number] [address] [place] [phone] 15 Apr, 2020 [place] [address] [place] [id number] [place] [phone] 13 Feb, 2020 Irritable bowel syndrome wit h diarrhea K58.0 [place] [id number] [place] [id number] 13 Feb, 2020 Irritable bowel syndrome wit h diarrhea K58.0 [place] [address] [place] [id number] [address] [place] [phone] 13 Feb, 2020 [facility] [address] [place] [id number] [address] [place] [phone] 28 Jan, 2020 Type 1 diabetes mellitus wit h foot ulcer E10.621 and Non-pressure chronic ulcer of other part of right foot limited to breakdown of skin L97.511 [facility] [address] [place] [id number] [address] [place] [phone] 23 Jan, 2020 Type 1 diabetes mellitus wit h diabetic nephropathy E10.21 [facility] [address] [place] [id number] [place] [id number] 20 Jan, 2020 [place] [address] [place] [id number] [address] [place] [id number] 16 Jan, 2020 Migraine without aura and wi thout status migrainosus, not intractable G43.009 and Type 1 diabetes mellitus with hypoglycemia without coma E10.649 [facility] [address] [place] [id number] [place] [id number] Jan, [facility] [address] [facility] [id number] [address] [place] [id number] 10 Jan, 2020 Type 1 diabetes mellitus wit h hyperglycemia E10.65 ; Orthostatic hypotension I95.1 and Restless legs G25.81 [facility] [address] [id number] [address] [place] [id number] 06 Dec, 2019 Caries K02.9 and Dental exam ination Z01.20 [facility] [address] [facility] [id number] [address] [place] [phone] Oct, Restless legs G25.81 [place] [address] [facility] [id number] [address] [place] [id number] 16 Oct, 2019 Encounter for Medicare darian l wellness exam Z00.00 ; 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 ; Migraine without aura and without status migrainosus, not intractable G43.009 ; Chronic kidney disease, stage 4 (severe) N18.4 ; Claudication I73.9 ; Peritoneal dialysis status Z99.2 ; Diastolic dysfunction I51.89 ; Primary insomnia F51.01 and Burn T30.0 [place] [address] [place] [id number] [address] [place] [phone] Sep, Moderate episode of recurren t major depressive disorder F33.1 and Primary insomnia F51.01 [place] [address] [facility] [id number] [address] [place] [phone] Aug, Hyperthyroidism E05.90 [facility] [address] [facility] [id number] [address] [place] [phone] May, Restless legs G25.81 [facility] [address] [facility] [id number] [address] [place] [phone] May, [facility] [address] [facility] [id number] [address] [place] [phone] May, [place] [address] [place] [id number] [place] [id number] May, Type 1 diabetes mellitus wit h hypoglycemia without coma E10.649 ; ESRF (end stage renal failure) N18.6 ; Leg cramps R25.2 ; Restless legs G25.81 and Low back pain M54.5 [facility] [address] [id number] [address] [place] [id number] Apr, Low back pain M54.5 [facility] [address] [id number] [address] [place] [id number] Apr, [facility] [address] [id number] [address] [place] [phone] March, Low back pain M54.5 [facility] [address] [id number] [address] [place] [id number] March, [facility] [address] [id number] [address] [place] [phone] Feb, Low back pain M54.5 [facility] [address] [id number] [address] [place] [phone] Jan, Low back pain M54.5 [facility] [address] [id number] [address] [place] [id number] Jan, [facility] [address] [id number] [address] [place] [phone] Jan, [facility] [address] [id number] [address] [place] [phone] Jan, [facility] [address] [id number] [address] [place] [phone] Dec, Type 1 diabetes mellitus wit h hypoglycemia without coma E10.649 and Low back pain M54.5 [facility] [address] [id number] [address] [place] [phone] Dec, Low back pain M54.5 [facility] [address] [id number] [address] [place] [id number] Dec, Diastolic dysfunction I51.89 ; Essential hypertension I10 and Chronic kidney disease, stage 4 (severe) N18.4 [place] [address] [place] [id number] [address] [place] [id number] 11 Dec, 2018 RUQ abdominal pain R10.11 ; Type 1 diabetes mellitus without complications E10.9 ; Therapeutic drug monitoring Z51.81 ; Migraine with aura and without status migrainosus, not intractable G43.109 and Intractable migraine without aura and with status migrainosus G43.011 [place] [address] [place] [id number] [place] [phone] Nov, Low back pain M54.5 [place] [address] [place] [id number] [place] [phone] Nov, [place] [address] [place] [id number] [place] [phone] Nov, Intractable migraine without aura and with status migrainosus G43.011 ; Lymphedema I89.0 ; Pain in right shoulder M25.511 ; Other chronic pain G89.29 ; Irritable bowel syndrome with diarrhea K58.0 ; Type 1 diabetes mellitus without complications E10.9 and Essential hypertension I10 [place] [address] [place] [id number] [place] [phone] Oct, Low back pain M54.5 [place] [address] [place] [id number] [place] [phone] Oct, [place] [address] [place] [id number] [place] [phone] Oct, Orthostatic hypotension I95. 1 ; Shortness of breath R06.02 ; Leg swelling M79.89 ; Type 1 diabetes mellitus without complications E10.9 and Claudication I73.9 [place] [address] [place] [id number] [place] [phone] Sep, Low back pain M54.5 [place] [address] [place] [id number] [place] [phone] Sep, Low back pain M54.5 [facility] [address] [id number] [address] [place] [phone] Aug, [facility] [address] [facility] [id number] [address] [place] [phone] Aug, Migraine without aura and wi thout status migrainosus, not intractable G43.009 [facility] [address] [facility] [id number] [address] [place] [phone] Aug, Low back pain M54.5 [facility] [address] [id number] [address] [place] [phone] Aug, Acute rhinosinusitis J01.90 and Sore throat J02.9 [facility] [address] [facility] [id number] [address] [place] [id number] Jul, Low back pain M54.5 [facility] [address] [facility] [id number] [address] [place] [phone] Jul, Migraine without aura and wi thout status migrainosus, not intractable G43.009 [facility] [address] [facility] [id number] [address] [place] [phone] Jun, Low back pain M54.5 [facility] [address] [facility] [id number] [address] [place] [phone] Jun, [facility] [address] [facility] [id number] [address] [place] [phone] Jun, Orthostatic hypotension I95. 1 ; Shortness of breath R06.02 ; Type 1 diabetes mellitus without complications E10.9 and Leg swelling M79.89 [facility] [address] [facility] [id number] [address] [place] [phone] Jun, Low back pain M54.5 [facility] [address] [facility] [id number] [address] [place] [id number] Jun, [facility] [address] [facility] [id number] [address] [place] [phone] May, Migraine without aura and wi thout status migrainosus, not intractable G43.009 [facility] [address] [facility] [id number] [address] [place] [phone] May, Migraine without aura and wi thout status migrainosus, not intractable G43.009 ; Restless legs syndrome G25.81 ; Leg cramps R25.2 ; Chronic kidney disease, unspecified N18.9 ; Postural hypotension I95.1 ; Diarrhea, unspecified type R19.7 and Cough R05 [facility] [address] [id number] [address] [place] [id number] May, [facility] [address] [facility] [id number] [address] [place] [phone] May, [place] [address] [facility] [id number] [address] [place] [phone] May, Orthostatic hypotension I95. 1 ; Shortness of breath R06.02 ; Type 1 diabetes mellitus with complications E10.8 and Leg swelling M79.89 [facility] [address] [facility] [id number] [address] [place] [id number] May, [facility] [address] [facility] [id number] [address] [place] [id number] May, Low back pain M54.5 [facility] [address] [facility] [id number] [address] [place] [id number] Apr, Type 1 diabetes mellitus wit h hyperglycemia E10.65 [facility] [address] [id number] [address] [place] [phone] Apr, Low back pain M54.5 [facility] [address] [facility] [id number] [address] [place] [phone] Apr, [facility] [address] [facility] [id number] [address] [place] [phone] Apr, [facility] [address] [facility] [id number] [address] [place] [phone] March, [facility] [address] [facility] [id number] [address] [place] [phone] March, Low back pain M54.5 [facility] [address] [facility] [id number] [address] [place] [phone] March, [facility] [address] [facility] [id number] [address] [place] [id number] Feb, [facility] [address] [facility] [id number] [address] [place] [phone] Feb, Low back pain M54.5 [facility] [address] [facility] [id number] [address] [place] [phone] Jan, Restless legs syndrome G25.8 1 [facility] [address] [facility] [id number] [address] [place] [phone] Jan, Low back pain M54.5 [facility] [address] [facility] [id number] [address] [place] [phone] Jan, [facility] [address] [facility] [id number] [address] [place] [phone] Jan, Type 1 diabetes mellitus wit hout complications E10.9 ; Low back pain M54.5 ; Cough R05 ; Diarrhea, unspecified type R19.7 ; Migraine without aura and without status migrainosus, not intractable G43.009 and Uses control Z30.9 [facility] [address] [facility] [id number] [address] [place] [phone] Dec, Low back pain M54.5 [facility] [address] [facility] [id number] [address] [place] [phone] Dec, [facility] [address] [facility] [id number] [address] [place] [id number] Nov, Well woman exam Z01.419 ; Me norrhagia with regular cycle N92.0 ; Vaginal dryness N89.8 and Migraine with aura and without status migrainosus, not intractable G43.109 [facility] [address] [facility] [id number] [address] [place] [phone] Nov, [facility] [address] [facility] [id number] [address] [place] [phone] Nov, Low back pain M54.5 [facility] [address] [facility] [id number] [address] [place] [phone] Oct, Low back pain M54.5 [facility] [address] [facility] [id number] [address] [place] [phone] Oct, Migraine without aura and wi thout status migrainosus, not intractable G43.009 [place] [address] [place] [id number] [place] [id number] Sep, Low back pain M54.5 [facility] [address] [place] [id number] [place] [phone] Sep, [facility] [address] [place] [id number] [place] [phone] Sep, Migraine without aura and wi thout status migrainosus, not intractable G43.009 [place] [address] [place] [id number] [place] [address] Sep, Type 1 diabetes mellitus wit h hypoglycemia without coma E10.649 ; Anemia D64.9 ; Migraine without aura and without status migrainosus, not intractable G43.009 ; Chronic kidney disease, unspecified N18.9 ; Autonomic neuropathy G90.9 and Postural hypotension I95.1 [facility] [address] [facility] [id number] [address] [place] [phone] Sep, Low back pain M54.5 [facility] [address] [place] [id number] [address] [place] [id number] 04 Aug, 2017 Low back pain M54.5 [facility] [address] [place] [id number] [address] [place] [phone] 14 Jul, 2017 [facility] [address] [place] [id number] [address] [place] [phone] Jul, Low back pain M54.5 [facility] [address] [id number] [address] [place] [phone] Jun, [facility] [address] [id number] [address] [place] [phone] Jun, Low back pain M54.5 [facility] [address] [id number] [address] [place] [phone] Jun, Migraine without aura and wi thout status migrainosus, not intractable G43.009 [facility] [address] [id number] [address] [place] [id number] Jun, Type 1 diabetes mellitus wit h hyperglycemia E10.65 ; Dysthymia F34.1 and Migraine without aura and without status migrainosus, not intractable G43.009 [facility] [address] [id number] [address] [place] [phone] Jun, [facility] [address] [id number] [address] [place] [phone] May, Type 1 diabetes mellitus wit h hyperglycemia E10.65 [facility] [address] [id number] [address] [place] [phone] May, Low back pain M54.5 [facility] [address] [id number] [address] [place] [id number] May, Type 1 diabetes mellitus wit h hyperglycemia E10.65 [facility] [address] [id number] [address] [place] [id number] Apr, [facility] [address] [id number] [address] [place] [phone] Apr, Chronic kidney disease, stag e 4 (severe) N18.4 [facility] [address] [id number] [address] [place] [id number] Apr, Low back pain M54.5 [facility] [address] [facility] [id number] [address] [place] [phone] March, [facility] [address] [id number] [address] [place] [id number] March, Low back pain M54.5 [facility] [address] [id number] [address] [place] [phone] Feb, [facility] [address] [id number] [address] [place] [phone] Feb, [facility] [address] [id number] [address] [place] [phone] Feb, Low back pain M54.5 [facility] [address] [facility] [id number] [address] [place] [phone] Feb, Low back pain M54.5 [facility] [address] [facility] [id number] [address] [place] [phone] Feb, Migraine without aura and wi thout status migrainosus, not intractable G43.009 [facility] [address] [id number] [address] [place] [id number] Feb, [facility] [address] [facility] [id number] [address] [place] [phone] Jan, Low back pain M54.5 [facility] [address] [facility] [id number] [address] [place] [phone] Jan, Type 1 diabetes mellitus wit hout complications E10.9 ; Anemia D64.9 ; Chronic kidney disease, unspecified N18.9 ; Migraine without aura and without status migrainosus, not intractable G43.009 and Other insomnia G47.09 [facility] [address] [id number] [address] [place] [phone] Jan, [facility] [address] [facility] [id number] [address] [place] [phone] Dec, Low back pain M54.5 [facility] [address] [facility] [id number] [address] [place] [phone] Dec, [facility] [address] [facility] [id number] [address] [place] [phone] Dec, [facility] [address] [facility] [id number] [address] [place] [phone] Dec, Shortness of breath R06.02 ; Type 1 diabetes mellitus without complications E10.9 and Leg swelling M79.89 [facility] [address] [facility] [id number] [address] [place] [phone] Nov, Low back pain M54.5 [facility] [address] [facility] [id number] [address] [place] [phone] Nov, Viral syndrome B34.9 [facility] [address] [facility] [id number] [address] [place] [phone] Oct, Low back pain M54.5 [facility] [address] [facility] [id number] [address] [place] [id number] Oct, [facility] [address] [facility] [id number] [address] [place] [phone] Oct, Low back pain M54.5 [facility] [address] [facility] [id number] [address] [place] [id number] Sep, [facility] [address] [facility] [id number] [address] [place] [phone] Sep, Fatigue, unspecified type R5 3.83 ; Type 1 diabetes mellitus without complications E10.9 and Anemia D64.9 [facility] [address] [facility] [id number] [address] [place] [phone] Sep, Low back pain M54.5 [facility] [address] [facility] [id number] [address] [place] [phone] Sep, Type 1 diabetes mellitus wit h hyperglycemia E10.65 [facility] [address] [facility] [id number] [address] [place] [phone] Aug, Type 1 diabetes mellitus wit hout complications E10.9 [facility] [address] [facility] [id number] [address] [place] [phone] Aug, [facility] [address] [facility] [id number] [place] [phone] Aug, [facility] [address] [facility] [id number] [address] [place] [phone] Jul, [facility] [address] [place] [id number] [place] [phone] [id number] Jul, 2016 Low back pain M54.5 [facility] [address] [facility] [id number] [place] [id number] 12 Jul, 2016 Hyperkalemia, diminished anna al excretion E87.5 [facility] [address] [facility] [id number] [place] [id number] 09 Jul, 2016 Hyperkalemia, diminished anna al excretion E87.5 [facility] [address] [place] [id number] [address] [place] [phone] Jun, [facility] [address] [place] [id number] [place] [phone] Jun, Low back pain M54.5 [facility] [address] [id number] [place] [phone] Jun, Anemia D64.9 ; Autonomic ayush ropathy G90.9 and Postural hypotension I95.1 [facility] [id number] [place] [phone] Jun, [facility] [address] [place] [id number] [place] [phone] May, Type 1 diabetes mellitus wit h complications E10.8 and Anemia D64.9 [facility] [address] [facility] [id number] [address] [place] [phone] May, Low back pain M54.5 [facility] [address] [facility] [id number] [address] [place] [phone] Apr, [facility] [facility] [address] [id number] [address] [place] [id number] Apr, Low back pain M54.5 [facility] [address] [id number] [address] [place] [id number] Apr, [facility] [address] [id number] [address] [place] [id number] Apr, [facility] [address] [id number] [address] [place] [id number] March, Low back pain M54.5 and Othe r chronic pain G89.29 [facility] [address] [id number] [address] [place] [id number] March, Type 1 diabetes mellitus wit hout complications E10.9 [facility] [address] [id number] [address] [place] [id number] March, [facility] [address] [id number] [address] [place] [id number] March, [facility] [address] [id number] [address] [place] [id number] Feb, [facility] [address] [id number] [address] [place] [id number] Feb, Type 1 diabetes mellitus wit hout complications E10.9 [facility] [address] [id number] [address] [place] [address] Feb, Trochanteric bursitis, right hip M70.61 [facility] [address] [id number] [address] [place] [id number] Jan, [facility] [address] [id number] [address] [place] [phone] Jan, [facility] [address] [id number] [address] [place] [id number] Dec, Type 1 diabetes mellitus wit h complications E10.8 [facility] [address] [id number] [address] [place] [id number] Dec, [facility] [address] [facility] [id number] [address] [place] [id number] Dec, Anemia D64.9 ; Autonomic ayush ropathy G90.9 and Postural hypotension I95.1 [facility] [address] [id number] [address] [place] [address] Dec, [facility] [address] [address] Nov, Sore throat J02.9 [facility] [id number] [place] [address] Nov, Type 1 diabetes mellitus wit h complications E10.8 [facility] [id number] [place] [address] Nov, Type 1 diabetes mellitus wit h diabetic nephropathy E10.21 ; Proteinuria, unspecified R80.9 and Chronic kidney disease, unspecified N18.9 [facility] [id number] [place] [address] Nov, [facility] [address] [address] Nov, Trochanteric bursitis, right hip M70.61 [facility] [id number] [place] [address] Nov, [facility] [address] [id number] [address] [place] [phone] Oct, [facility] [address] [id number] [address] [place] [phone] Oct, [facility] [address] [id number] [address] [place] [id number] Oct, [facility] [address] [id number] [address] [place] [phone] Sep, [facility] [id number] [place] [address] [place] [address] Sep, [facility] [address] [id number] [address] [place] [id number] Sep, Type 2 diabetes mellitus wit h complication E11.8 and Right hip pain M25.551 [facility] [address] [id number] [address] [place] [address] Sep, [facility] [address] [id number] [address] [place] [phone] Aug, [facility] [address] [id number] [address] [place] [id number] Aug, [facility] [address] [id number] [address] [place] [id number] Aug, [facility] [address] [id number] [address] [place] [id number] Aug, Type 1 diabetes mellitus wit hout complications E10.9 [facility] [address] [id number] [address] [place] [id number] 16 Jul, 2015 [facility] [address] [id number] [address] [place] [id number] 15 Jul, 2015 [facility] [address] [id number] [address] [place] [id number] 14 Jul, 2015 [facility] [address] [id number] [address] [place] [id number] Jun, [facility] [address] [id number] [address] [place] [id number] Jun, [facility] [address] [id number] [address] [place] [phone] Jun, [facility] [address] [id number] [address] [place] [id number] Jun, [facility] [address] [id number] [address] [place] [id number] Jun, [facility] [address] [id number] [address] [place] [id number] Jun, Diabetes mellitus without me ntion of complication, type I [juvenile type], not stated as uncontrolled 250.01 [facility] [address] [id number] [address] [place] [id number] May, [facility] [address] [id number] [address] [place] [phone] May, [facility] [address] [id number] [address] [place] [id number] May, [facility] [address] [id number] [address] [place] [id number] May, Autonomic neuropathy 337.9 ; Postural hypotension 458.0 and Anemia 285.9 [facility] [address] [id number] [address] [place] [id number] May, [facility] [address] [id number] [address] [place] [phone] Apr, [facility] [address] [id number] [address] [place] [id number] Apr, [facility] [address] [id number] [address] [place] [phone] Apr, [facility] [address] [id number] [address] [place] [phone] Apr, [facility] [address] [id number] [address] [place] [phone] Apr, [facility] [address] [id number] [address] [place] [id number] March, [facility] [address] [id number] [address] [place] [id number] March, [facility] [address] [id number] [address] [place] [id number] March, [facility] [address] [id number] [address] [place] [id number] March, [facility] [address] [id number] [address] [place] [address], [place] [address] March, [facility] [address] [id number] [address] [place] [address], [place] [address] Feb, [facility] [address] [id number] [address] [place] [address], [place] [address] Feb, [facility] [address] [id number] [address] [place] [address], [place] [address] Feb, [facility] [address] [id number] [address] [place] [address], [place] [address] 30 Jan, 2015 [facility] [address] [id number] [address] [place] [address], [place] [address] Jan, [facility] [address] [id number] [address] [place] [address], [place] [address] Jan, [facility] [address] [id number] [address] [place] [address], [place] [address] Jan, [facility] [address] [id number] [address] [place] [address], [place] [address] Jan, [facility] [address] [id number] [address] [place] [address], [place] [address] Jan, [facility] [address] [id number] [address] [place] [address], [place] [address] Jan, [facility] [address] [id number] [address] [place] [address], [place] [address] Jan, [facility] [address] [id number] [address] [place] [address], [place] [address] Jan, [facility] [address] [id number] [address] [place] [address], [place] [address] Jan, [facility] [address] [id number] [address] [place] [address], [place] [address] Jan, [facility] [address] [id number] [address] [place] [address], [place] [address] Jan, [facility] [address] [id number] [address] [place] [address], [place] [address] Jan, [facility] [address] [id number] [address] [place] [address], [place] [address] Dec, [facility] [address] [id number] [address] [place] [address], [place] [address] Dec, [facility] [address] [id number] [address] [place] [address], [place] [address] Dec, [facility] [address] [id number] [address] [place] [address], [place] [address] Dec, [facility] [address] [id number] [address] [place] [address], [place] [address] Dec, [facility] [address] [id number] [address] [place] [address], [place] [address] Dec, [facility] [address] [id number] [address] [place] [address], [place] [address] Dec, [facility] [address] [id number] [address] [place] [address], [place] [address] Dec, [facility] [address] [id number] [address] [place] [address], [place] [address] Nov, [facility] [address] [id number] [address] [place] [phone] Nov, [facility] [address] [id number] [address] [place] [address], [place] [address] Nov, [facility] [address] [id number] [address] [place] [address], [place] [address] Nov, [facility] [address] [id number] [address] [place] [phone] Nov, [facility] [address] [id number] [address] [place] [id number] Nov, [facility] [address] [id number] [address] [place] [address], [place] [address] Nov, [facility] [address] [id number] [address] [place] [address], [place] [address] Nov, [facility] [address] [id number] [address] [place] [address], [place] [address] Nov, [facility] [address] [id number] [address] [place] [address], [place] [address] Oct, [facility] [address] [id number] [address] [place] [address], [place] [address] Oct, [facility] [address] [id number] [address] [place] [address], [place] [address] Oct, [facility] [address] [id number] [address] [place] [address], [place] [address] Oct, [facility] [address] [id number] [address] [place] [address], [place] [address] Oct, [facility] [address] [id number] [address] [place] [address], [place] [address] Oct, [facility] [address] [id number] [address] [place] [address], [place] [address] Oct, [facility] [address] [id number] [address] [place] [address], [place] [address] Oct, [facility] [address] [id number] [address] [place] [address], [place] [address] Oct, [facility] [address] [id number] [address] [place] [address], [place] [address] Oct, [facility] [address] [id number] [address] [place] [address], [place] [address] Oct, [facility] [address] [id number] [address] [place] [address], [place] [address] Oct, [facility] [address] [id number] [address] [place] [address], [place] [address] Oct, [facility] [address] [id number] [address] [place] [address], [place] [address] Oct, [facility] [address] [id number] [address] [place] [address], [place] [address] Sep, [facility] [address] [id number] [address] [place] [address], [place] [address] Sep, [facility] [address] [id number] [address] [place] [address], [place] [address] Sep, [facility] [address] [id number] [address] [place] [address], [place] [address] Sep, [facility] [address] [id number] [address] [place] [address], [place] [address] Aug, [facility] [address] [id number] [address] [place] [address], [place] [address] Aug, [facility] [address] [id number] [address] [place] [address], [place] [address] Aug, [facility] [address] [id number] [address] [place] [address], [place] [address] Aug, [facility] [address] [id number] [address] [place] [address], [place] [address] Aug, [facility] [address] [id number] [address] [place] [address], [place] [address] Aug, [facility] [address] [id number] [address] [place] [address], [place] [address] Aug, [facility] [address] [id number] [address] [place] [address], [place] [address] Aug, [facility] [address] [id number] [address] [place] [address], [place] [address] Aug, [facility] [address] [id number] [address] [place] [address], [place] [address] Aug, [facility] [address] [id number] [facility] [place] [address] 29 Sep, 2013 [facility] [address] [id number] [address] [place] [address], [place] [address] 29 Jul, 2013 [facility] [address] [id number] [address] [place] [address], [place] [address] 29 Jul, 2013 [facility] [address] [id number] [address] [place] [address], [place] [address] 29 Jul, 2013 [facility] [address] [id number] [address] [place] [address], [place] [address] 22 Jul, 2013 [facility] [address] [id number] [address] [place] [address], [place] [address] 22 Jul, 2013 [facility] [address] [id number] [address] [place] [address], [place] [address] 19 Jul, 2013 [facility] [address] [id number] [address] [place] [address], [place] [address] 19 Jul, 2013 [facility] [address] [id number] [address] [place] [address], [place] [address] 11 Jul, 2013 [facility] [address] [id number] [address] [place] [address], [place] [address] 11 Jul, 2013 [facility] [address] [id number] [address] [place] [address], [place] [address] 10 Jul, 2013 [facility] [address] [id number] [address] [place] [address], [place] [address] 10 Jul, 2013 [facility] [address] [id number] [address] [place] [address], [place] [address] 08 Jul, 2013 [facility] [address] [id number] [address] [place] [address], [place] [address] 08 Jul, 2013 [facility] [address] [id number] [address] [place] [address], [place] [address] 03 Jul, 2013 [facility] [address] [id number] [address] [place] [address], [place] [address] Jul, [facility] [address] [id number] [facility] [place] [address] Jul, [facility] [address] [id number] [address] [place] [address], [place] [address] Jul, [facility] [address] [id number] [address] [place] [address], [place] [address] Jun, [facility] [address] [id number] [address] [place] [address], [place] [address] Jun, [facility] [address] [id number] [address] [place] [address], [place] [address] Jun, [facility] [address] [id number] [address] [place] [address], [place] [address] Jun, [facility] [address] [id number] [address] [place] [address], [place] [address] Jun, [facility] [address] [id number] [address] [place] [address], [place] [address] Jun, [facility] [address] [id number] [address] [place] [address], [place] [address] Jun, [facility] [address] [id number] [address] [place] [address], [place] [address] Jun, [facility] [address] [id number] [address] [place] [address], [place] [address] Jun, [facility] [address] [id number] [address] [place] [address], [place] [address] Jun, [facility] [address] [id number] [address] [place] [address], [place] [address] Jun, [facility] [address] [id number] [address] [place] [address], [place] [address] Jun, [facility] [address] [id number] [address] [place] [address], [place] [address] Jun, [facility] [address] [id number] [address] [place] [address], [place] [address] Jun, [facility] [address] [id number] [address] [place] [address], [place] [address] Jun, [facility] [address] [id number] [address] [place] [address], [place] [address] May, [facility] [address] [id number] [address] [place] [address], [place] [address] May, [facility] [address] [id number] [address] [place] [address], [place] [address] May, [facility] [address] [id number] [address] [place] [address], [place] [address] May, [facility] [address] [id number] [address] [place] [address], [place] [address] May, [facility] [address] [id number] [address] [place] [address], [place] [address] May, [facility] [address] [id number] [address] [place] [address], [place] [address] May, [facility] [address] [id number] [address] [place] [address], [place] [address] May, [facility] [address] [id number] [address] [place] [address], [place] [address] Apr, [facility] [address] [id number] [address] [place] [address], [place] [address] Apr, [facility] [address] [id number] [address] [place] [address], [place] [address] Apr, [facility] [address] [id number] [address] [place] [address], [place] [address] Apr, [facility] [address] [id number] [address] [place] [address], [place] [address] Apr, [facility] [address] [id number] [address] [place] [address], [place] [address] Apr, [facility] [address] [id number] [facility] [place] [address] Apr, [facility] [address] [id number] [address] [place] [address], [place] [address] Apr, [facility] [address] [id number] [address] [place] [address], [place] [address] Apr, [facility] [address] [id number] [address] [place] [address], [place] [address] Apr, [facility] [address] [id number] [address] [place] [address], [place] [address] Apr, [facility] [address] [id number] [address] [place] [address], [place] [address] Apr, [facility] [address] [id number] [address] [place] [address], [place] [address] Apr, [facility] [address] [id number] [address] [place] [address], [place] [address] Apr, [facility] [address] [id number] [address] [place] [address], [place] [address] Apr, [facility] [address] [id number] [address] [place] [address], [place] [address] Apr, [facility] [address] [id number] [address] [place] [address], [place] [address] Apr, [facility] [address] [id number] [address] [place] [address], [place] [address] Apr, [facility] [address] [id number] [address] [place] [address], [place] [address] March, [facility] [address] [id number] [address] [place] [address], [place] [address] March, [facility] [address] [id number] [address] [place] [address], [place] [address] March, [facility] [address] [id number] [address] [place] [address], [place] [address] March, [facility] [address] [id number] [address] [place] [address], [place] [address] March, [facility] [address] [id number] [address] [place] [address], [place] [address] March, [facility] [address] [id number] [address] [place] [address], [place] [address] March, [facility] [address] [id number] [address] [place] [address], [place] [address] March, [facility] [address] [id number] [address] [place] [address], [place] [address] March, [facility] [address] [id number] [address] [place] [address], [place] [address] Feb, [facility] [address] [id number] [address] [place] [address], [place] [address] Feb, [facility] [address] [id number] [address] [place] [address], [place] [address] Feb, [facility] [address] [id number] [address] [place] [address], [place] [address] Feb, [facility] [address] [id number] [address] [place] [address], [place] [address] Feb, [facility] [address] [id number] [address] [place] [address], [place] [address] Feb, [facility] [address] [id number] [address] [place] [address], [place] [address] Feb, [facility] [address] [id number] [address] [place] [address], [place] [address] Feb, [facility] [address] [id number] [address] [place] [address], [place] [address] Feb, [facility] [address] [id number] [address] [place] [address], [place] [address] Feb, [facility] [address] [id number] [address] [place] [address], [place] [address] Feb, [facility] [address] [id number] [address] [place] [address], [place] [address] Feb, [facility] [address] [id number] [address] [place] [address], [place] [address] Feb, [facility] [address] [id number] [address] [place] [address], [place] [address] Jan, [facility] [address] [id number] [address] [place] [address], [place] [address] Jan, [facility] [address] [id number] [address] [place] [address], [place] [address] Jan, [facility] [address] [id number] [address] [place] [address], [place] [address] Jan, [facility] [facility] [address] [id number] [address] [place] [address], [place] [address] Jan, [facility] [address] [id number] [address] [place] [address], [place] [address] Jan, [facility] [address] [id number] [address] [place] [address], [place] [address] Jan, [facility] [address] [id number] [address] [place] [address], [place] [address] Jan, [facility] [address] [id number] [address] [place] [address], [place] [address] Dec, [facility] [address] [id number] [address] [place] [address], [place] [address] Dec, [facility] [address] [id number] [address] [place] [address], [place] [address] Dec, [facility] [address] [id number] [address] [place] [address], [place] [address] Dec, [facility] [address] [id number] [address] [place] [address], [place] [address] Dec, [facility] [address] [id number] [address] [place] [address], [place] [address] Dec, [facility] [address] [id number] [address] [place] [address], [place] [address] Dec, [facility] [address] [id number] [address] [place] [address], [place] [address] Dec, [facility] [address] [id number] [address] [place] [address], [place] [address] Dec, [facility] [address] [id number] [address] [place] [address], [place] [address] Dec, [facility] [address] [id number] [address] [place] [address], [place] [address] Nov, [facility] [address] [id number] [address] [place] [address], [place] [address] Nov, [facility] [address] [id number] [address] [place] [address], [place] [address] Nov, [facility] [address] [id number] [address] [place] [address], [place] [address] Nov, [facility] [address] [id number] [address] [place] [address], [place] [address] Nov, [facility] [address] [id number] [address] [place] [address], [place] [address] Nov, [facility] [address] [id number] [address] [place] [address], [place] [address] Nov, [facility] [address] [id number] [address] [place] [address], [place] [address] Nov, [facility] [address] [id number] [address] [place] [address], [place] [address] Nov, [facility] [address] [id number] [address] [place] [address], [place] [address] Nov, [facility] [address] [id number] [address] [place] [address], [place] [address] Oct, [facility] [address] [id number] [address] [place] [address], [place] [address] Oct, [facility] [address] [id number] [address] [place] [address], [place] [address] 18 Oct, 2013 [facility] [address] [id number] [address] [place] [address], [place] [address] 18 Oct, 2013 [facility] [address] [id number] [address] [place] [address], [place] [address] 17 Oct, 2013 [facility] [address] [id number] [address] [place] [address], [place] [address] 17 Oct, 2013 [facility] [address] [id number] [address] [place] [address], [place] [address] 16 Oct, 2013 [facility] [address] [id number] [address] [place] [address], [place] [address] 16 Oct, 2013 [facility] [address] [id number] [address] [place] [address], [place] [address] Oct, [facility] [address] [id number] [address] [place] [address], [place] [address] Oct, [facility] [address] [id number] [address] [place] [address], [place] [address] Oct, [facility] [address] [id number] [address] [place] [id number] Oct, [facility] [address] [id number] [address] [place] [address], [place] [address] Oct, [facility] [address] [id number] [address] [place] [address], [place] [address] Oct, [facility] [address] [id number] [address] [place] [address], [place] [address] Sep, [facility] [address] [id number] [address] [place] [phone] Sep, [facility] [address] [id number] [address] [place] [address], [place] [address] Sep, [facility] [address] [id number] [address] [place] [id number] 18 Sep, 2013 [facility] [address] [id number] [address] [place] [address], [place] [address] Sep, [facility] [address] [id number] [address] [place] [phone] Sep, [facility] [address] [id number] [address] [place] [address], [place] [address] Aug, [facility] [address] [id number] [address] [place] [address], [place] [address] 31 Aug, 2013 [facility] [address] [id number] [address] [place] [address] Aug, [facility] [address] [id number] [address] [place] [id number] 17 Aug, 2013 [facility] [address] [id number] [address] [place] [address] 10 Aug, 2013 [facility] [address] [id number] [address] [place] [id number] 10 Aug, 2013 [facility] [address] [id number] [address] [place] [id number] 07 Aug, 2013 [facility] [address] [id number] [address] [place] [id number] 02 Aug, 2013 [facility] [address] [id number] [address] [place] [id number] 02 Aug, 2013 [facility] [address] [id number] [address] [place] [phone] 25 Jul, 2013 [facility] [address] [id number] [address] [place] [id number] 23 Jul, 2013 [facility] [address] [id number] [facility] [place] [address] 21 Sep, 2012 [facility] [address] [id number] [address] [place] [address], [place] [address] 20 Sep, 2012 [facility] [address] [id number] [address] [place] [address], [place] [address] 18 Sep, 2012 [facility] [address] [id number] [address] [place] [address], [place] [address] 17 Sep, 2012 [facility] [address] [id number] [address] [place] [address], [place] [address] 16 Sep, 2012 [facility] [address] [id number] [address] [place] [address], [place] [address] 11 Jul, 2012 [facility] [address] [id number] [address] [place] [address], [place] [address] 09 Jul, 2012 [facility] [address] [id number] [address] [place] [address], [place] [address] 09 Jul, 2012 [facility] [address] [id number] [address] [place] [address], [place] [address] 06 Jul, 2012 [facility] [address] [id number] [address] [place] [address], [place] [address] 03 Jul, 2012 [facility] [address] [id number] [address] [place] [address], [place] [address] Jun, [facility] [address] [id number] [address] [place] [address], [place] [address] Jun, [facility] [address] [id number] [address] [place] [address], [place] [address] Jun, [facility] [address] [id number] [address] [place] [address], [place] [address] Jun, [facility] [address] [id number] [address] [place] [address], [place] [address] Jun, [facility] [address] [id number] [address] [place] [address], [place] [address] Jun, [facility] [address] [id number] [address] [place] [address], [place] [address] Jun, [facility] [address] [id number] [address] [place] [address], [place] [address] Jun, [facility] [address] [id number] [address] [place] [address], [place] [address] Jun, [facility] [address] [id number] [address] [place] [address], [place] [address] May, [facility] [address] [id number] [address] [place] [address], [place] [address] May, [facility] [address] [id number] [address] [place] [address], [place] [address] May, [facility] [address] [id number] [address] [place] [address], [place] [address] May, [facility] [address] [id number] [address] [place] [address], [place] [address] May, [facility] [address] [id number] [address] [place] [address], [place] [address] May, [facility] [address] [id number] [address] [place] [address], [place] [address] May, [facility] [address] [id number] [address] [place] [address], [place] [address] March, [facility] [address] [id number] [address] [place] [address], [place] [address] March, [facility] [address] [id number] [address] [place] [address], [place] [address] March, [facility] [address] [id number] [address] [place] [address], [place] [address] Dec, [facility] [address] [id number] [address] [place] [address], [place] [address] Nov, [facility] [address] [id number] [address] [place] [address], [place] [address] Aug, [facility] [address] [id number] [address] [place] [address], [place] [address] Aug, [facility] [address] [id number] [address] [place] [address], [place] [address] Jun, [facility] [address] [id number] [address] [place] [address], [place] [address] Jun, [facility] [address] [id number] [address] [place] [address], [place] [address] Jun, [facility] [address] [id number] [address] [place] [address], [place] [address] Jun, [facility] [address] [id number] [address] [place] [address], [place] [address] May, [facility] [address] [id number] [address] [place] [address], [place] [address] May, [facility] [address] [id number] [address] [place] [address], [place] [address] May, [facility] [address] [id number] [address] [place] [address], [place] [address] May, [facility] [address] [id number] [address] [place] [address], [place] [address] May, [facility] [address] [id number] [address] [place] [address], [place] [address] May, [facility] [address] [id number] [address] [place] [address], [place] [address] May, [facility] [address] [id number] [address] [place] [address], [place] [address] Apr, [facility] [address] [id number] [address] [place] [address], [place] [address] Apr, [facility] [address] [id number] [address] [place] [address], [place] [address] Apr, [facility] [address] [id number] [address] [place] [address], [place] [address] Apr, [facility] [address] [id number] [address] [place] [address], [place] [address] March, [facility] [address] [id number] [address] [place] [address], [place] [address] March, [facility] [address] [id number] [address] [place] [address], [place] [address] March, [facility] [address] [id number] [address] [place] [address], [place] [address] March, [facility] [address] [id number] [address] [place] [address], [place] [address] March, [facility] [address] [id number] [address] [place] [address], [place] [address] March, [facility] [address] [id number] [address] [place] [address], [place] [address] March, [facility] [address] [id number] [address] [place] [address], [place] [address] March, [facility] [address] [id number] [address] [place] [address], [place] [address] March, [facility] [address] [id number] [address] [place] [address], [place] [address] Feb, [facility] [address] [id number] [address] [place] [address], [place] [address] Feb, [facility] [address] [id number] [address] [place] [address], [place] [address] Jan, [facility] [address] [id number] [address] [place] [address], [place] [address] Jan, [facility] [address] [id number] [address] [place] [address], [place] [address] Jan, [facility] [address] [id number] [address] [place] [address], [place] [address] 05 Jan, 2012 [facility] [address] [id number] [address] [place] [address], [place] [address] 20 Dec, 2011 [facility] [address] [id number] [address] [place] [address], [place] [address] 16 Dec, 2011 [facility] [address] [id number] [address] [place] [address], [place] [address] 15 Dec, 2011 [facility] [address] [id number] [address] [place] [address], [place] [address] 30 Nov, 2011 [facility] [address] [id number] [address] [place] [address], [place] [address] 19 Oct, 2011 [facility] [address] [id number] [address] [place] [address], [place] [address] 15 Oct, 2011 [facility] [address] [id number] [address] [place] [address], [place] [address] 15 Oct, 2011 [facility] [address] [id number] [address] [place] [address], [place] [address] 14 Oct, 2011 [facility] [address] [id number] [address] [place] [address], [place] [address] 14 Oct, 2011 [facility] [address] [id number] [address] [place] [address], [place] [address] 12 Oct, 2011 [facility] [address] [id number] [address] [place] [address], [place] [address] 09 Oct, 2011 [facility] [address] [id number] [address] [place] [address], [place] [address] Oct, [facility] [address] [id number] [address] [place] [address], [place] [address] 22 Sep, 2011 [facility] [address] [id number] [address] [place] [address], [place] [address] 17 Sep, 2011 [facility] [address] [id number] [address] [place] [address], [place] [address] 14 Sep, 2011 [facility] [address] [id number] [address] [place] [id number] Sep, [facility] [address] [id number] [address] [place] [id number] Sep, [facility] [address] [id number] [address] [place] [phone] Sep, [facility] [address] [id number] [address] [place] [id number] Sep, [facility] [address] [id number] [address] [place] [id number] Sep, [facility] [address] [id number] [address] [place] [address] Sep, [facility] [address] [id number] [address] [place] [id number] Aug, [facility] [address] [id number] [address] [place] [phone] Jul, [facility] [address] [id number] [address] [place] [id number] Oct, [facility] [address] [id number] [address] [place] [id number] Oct, [facility] [address] [id number] [address] [place] [address] Oct, IMMUNIZATIONS No Known Immunizations SOCIAL HISTORY [...]
--- OUTSIDE RECORDS SUMMARY | 2020-03-19 05:52 | XMS REPORT ---
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 46732371 Problem Chronic kidney disease, unspecified N18.9 Active 646060919 Problem Anemia, unspecified D64.9 Active 479999869 Problem Irritable bowel K58.9 Active 1074 3008 Problem Type 1 diabetes mellitus without complications E10 .9 Active 085774459 Problem Migraine G43.909 Active 77615580 Problem Irritable bowel syndrome with diarrhea K58.0 Active 377215699 Problem Peritoneal dialysis status Z99.2 Act moody 930285266 Problem Essential hypertension I10 Active 91536042 Problem Intractable migraine without aura and with status migr ainosus G43.011 Active 218556043 Problem Type 1 diabetes mellitus with hypoglycemia without coma E10.649 Active 75825257 Problem Type 1 diabetes mellitus with hyperglycemia E10.65 Active 91274859 Problem Dysthymia F34.1 Active 08729225 Problem Chronic kidney disease, stage 4 (severe) N18.4 Active 810181860 Problem Migraine with aura and without status migrainosu s, not intractable G43.109 Active 3870138 Problem Autonomic neuropathy G90.9 Active 081040708 Problem Type 1 diabetes mellitus with complications E10.8 Active 430851078 Problem Menorrhagia with regular cycle N92.0 Active 203009320 Problem Lymphedema I89.0 Active 799697179 Problem Claudication I73.9 Active 3591985 6 Problem Other chronic pain G89.29 Active 8 0309443 Problem Diastolic dysfunction I51.89 Active 7144465 Problem ESRF (end stage renal failure) N18.6 Active 45873821 Problem 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 Active 193671733 Problem Migraine without aura and without status migrain osus, not intractable G43.009 Active 498769014 Problem Type 1 diabetes mellitus with foot ulcer E10.621 Active [id number] Problem Low back pain M54.5 Active 716817 009 Problem Other insomnia G47.09 Active 98609 2000 Problem Restless legs G25.81 Active 152948 08 Problem Hyperthyroidism E05.90 Active 3448 6009 Problem Moderate episode of recurrent major depressive disorder F33.1 Active 305765888 Problem Primary insomnia F51.01 Active 397 2004 ALLERGIES No Information ENCOUNTERS Encounter Location Date Diagnosis [facility] [address] [facility] [id number] [address] [place] [id number] 15 Apr, 2020 [facility] [address] [address] 28 Jan, 2020 Type 1 diabetes mellitus wit h foot ulcer E10.621 and Non-pressure chronic ulcer of other part of right foot limited to breakdown of skin L97.511 [facility] [address] [place] [id number] [address] [place] [id number] 23 Jan, 2020 Type 1 diabetes mellitus wit h diabetic nephropathy E10.21 [facility] [address] [place] [place] [id number] [place] [phone] 20 Jan, 2020 [facility] [address] [address] 16 Jan, 2020 Migraine without aura and wi thout status migrainosus, not intractable G43.009 and Type 1 diabetes mellitus with hypoglycemia without coma E10.649 [facility] [address] [place] [id number] [address] [place] [phone] 11 Jan, 2020 [facility] [address] [place] [id number] [address] [place] [id number] 10 Jan, 2020 Type 1 diabetes mellitus wit h hyperglycemia E10.65 ; Orthostatic hypotension I95.1 and Restless legs G25.81 [facility] [address] [id number] [address] [place] [id number] 06 Dec, 2019 Caries K02.9 and Dental exam ination Z01.20 [place] [id number] [place] [address] 30 Oct, 2019 Restless legs G25.81 [place] [address] [id number] 16 Oct, 2019 Encounter for Medicare darian [facility] wellness exam Z00.00 ; 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 ; Migraine without aura and without status migrainosus, not intractable G43.009 ; Chronic kidney disease, stage 4 (severe) N18.4 ; Claudication I73.9 ; Peritoneal dialysis status Z99.2 ; Diastolic dysfunction I51.89 ; Primary insomnia F51.01 and Burn T30.0 [place] [address] [id number] Sep, Moderate episode of recurren t major depressive disorder F33.1 and Primary insomnia F51.01 [place] [address] [address] Aug, Hyperthyroidism E05.90 [place] [address] [address] May, Restless legs G25.81 [place] [address] [id number] May, [place] [address] [address] May, [place] [address] [address] May, Type 1 diabetes mellitus wit h hypoglycemia without coma E10.649 ; ESRF (end stage renal failure) N18.6 ; Leg cramps R25.2 ; Restless legs G25.81 and Low back pain M54.5 [place] [address] [place] [id number] [address] [place] [id number] 13 Apr, 2019 Low back pain M54.5 [place] [address] [address] Apr, [facility] [address] [id number] [address] [place] [id number] March, Low back pain M54.5 [facility] [address] [id number] [address] [place] [id number] March, [facility] [address] [facility] [id number] [address] [place] [address] Feb, Low back pain M54.5 [facility] [address] [id number] [address] [place] [phone] Jan, Low back pain M54.5 [facility] [address] [facility] [id number] [address] [place] [phone] Jan, [facility] [address] [facility] [id number] [address] [place] [phone] Jan, [facility] [address] [facility] [id number] [address] [place] [phone] Jan, [facility] [address] [facility] [id number] [address] [place] [phone] Dec, Type 1 diabetes mellitus wit h hypoglycemia without coma E10.649 and Low back pain M54.5 [facility] [address] [facility] [id number] [address] [place] [id number] Dec, Low back pain M54.5 [facility] [address] [facility] [id number] [address] [place] [id number] 13 Dec, 2018 Diastolic dysfunction I51.89 ; Essential hypertension I10 and Chronic kidney disease, stage 4 (severe) N18.4 [facility] [address] [facility] [id number] [address] [place] [id number] 11 Dec, 2018 RUQ abdominal pain R10.11 ; Type 1 diabetes mellitus without complications E10.9 ; Therapeutic drug monitoring Z51.81 ; Migraine with aura and without status migrainosus, not intractable G43.109 and Intractable migraine without aura and with status migrainosus G43.011 [place] [address] [facility] [id number] [address] [place] [phone] Nov, Low back pain M54.5 [place] [address] [facility] [id number] [address] [place] [phone] Nov, [place] [address] [facility] [id number] [address] [place] [id number] Nov, Intractable migraine without aura and with status migrainosus G43.011 ; Lymphedema I89.0 ; Pain in right shoulder M25.511 ; Other chronic pain G89.29 ; Irritable bowel syndrome with diarrhea K58.0 ; Type 1 diabetes mellitus without complications E10.9 and Essential hypertension I10 [place] [address] [facility] [id number] [address] [place] [address] Oct, Low back pain M54.5 [place] [address] [place] [id number] [address] [place] [phone] Oct, [place] [address] [place] [id number] [address] [place] [address] Oct, Orthostatic hypotension I95. 1 ; Shortness of breath R06.02 ; Leg swelling M79.89 ; Type 1 diabetes mellitus without complications E10.9 and Claudication I73.9 [place] [address] [facility] [id number] [address] [place] [id number] Sep, Low back pain M54.5 [place] [address] [place] [id number] [address] [place] [phone] Sep, Low back pain M54.5 [place] [address] [facility] [id number] [address] [place] [address] Aug, [place] [address] [place] [id number] [address] [place] [address] Aug, Migraine without aura and wi thout status migrainosus, not intractable G43.009 [place] [address] [facility] [id number] [address] [place] [phone] Aug, Low back pain M54.5 [facility] [address] [facility] [id number] [address] [place] [address] Aug, Acute rhinosinusitis J01.90 and Sore throat J02.9 [facility] [address] [facility] [id number] [address] [place] [phone] Jul, Low back pain M54.5 [facility] [address] [facility] [id number] [address] [place] [phone] Jul, Migraine without aura and wi thout status migrainosus, not intractable G43.009 [facility] [address] [facility] [id number] [address] [place] [phone] Jun, Low back pain M54.5 [facility] [address] [facility] [id number] [address] [place] [id number] Jun, [facility] [address] [place] [id number] [place] [address] Jun, Orthostatic hypotension I95. 1 ; Shortness of breath R06.02 ; Type 1 diabetes mellitus without complications E10.9 and Leg swelling M79.89 [facility] [address] [place] [id number] [address] [place] [phone] Jun, Low back pain M54.5 [facility] [address] [place] [id number] [address] [place] [id number] Jun, [facility] [address] [place] [id number] [address] [place] [id number] May, Migraine without aura and wi thout status migrainosus, not intractable G43.009 [facility] [address] [facility] [id number] [address] [place] [id number] May, Migraine without aura and wi thout status migrainosus, not intractable G43.009 ; Restless legs syndrome G25.81 ; Leg cramps R25.2 ; Chronic kidney disease, unspecified N18.9 ; Postural hypotension I95.1 ; Diarrhea, unspecified type R19.7 and Cough R05 [facility] [address] [id number] [address] [place] [id number] May, [facility] [address] [id number] [address] [place] [id number] May, [facility] [address] [facility] [id number] [address] [place] [address] May, Orthostatic hypotension I95. 1 ; Shortness of breath R06.02 ; Type 1 diabetes mellitus with complications E10.8 and Leg swelling M79.89 [facility] [address] [id number] [address] [place] [phone] May, [facility] [address] [id number] [address] [place] [id number] May, Low back pain M54.5 [facility] [address] [facility] [id number] [address] [place] [address] Apr, Type 1 diabetes mellitus wit h hyperglycemia E10.65 [facility] [address] [id number] [address] [place] [id number] Apr, Low back pain M54.5 [facility] [address] [id number] [address] [place] [phone] Apr, [facility] [address] [facility] [id number] [address] [place] [phone] Apr, [facility] [address] [id number] [address] [place] [id number] March, [facility] [address] [facility] [id number] [address] [place] [id number] March, Low back pain M54.5 [facility] [address] [id number] [address] [place] [id number] March, [facility] [address] [facility] [id number] [address] [place] [id number] Feb, [facility] [address] [facility] [id number] [address] [place] [id number] Feb, Low back pain M54.5 [facility] [address] [facility] [id number] [address] [place] [id number] Jan, Restless legs syndrome G25.8 1 [facility] [address] [place] [id number] [address] [place] [id number] Jan, Low back pain M54.5 [facility] [address] [place] [id number] [address] [place] [id number] Jan, [facility] [address] [place] [id number] [place] [address] Jan, Type 1 diabetes mellitus wit hout complications E10.9 ; Low back pain M54.5 ; Cough R05 ; Diarrhea, unspecified type R19.7 ; Migraine without aura and without status migrainosus, not intractable G43.009 and Uses control Z30.9 [facility] [address] [place] [id number] [place] [address] Dec, Low back pain M54.5 [facility] [address] [place] [id number] [place] [address] Dec, [facility] [address] [place] [id number] [place] [address] Nov, Well woman exam Z01.419 ; Me norrhagia with regular cycle N92.0 ; Vaginal dryness N89.8 and Migraine with aura and without status migrainosus, not intractable G43.109 [facility] [address] [place] [id number] [address] [place] [id number] Nov, [facility] [address] [place] [id number] [place] [id number] Nov, Low back pain M54.5 [facility] [address] [place] [id number] [address] [place] [address] Oct, Low back pain M54.5 [facility] [address] [place] [address] Oct, Migraine without aura and wi thout status migrainosus, not intractable G43.009 [facility] [address] [facility] [id number] [address] [place] [id number] Sep, Low back pain M54.5 [facility] [address] [place] [id number] [address] [place] [id number] Sep, [facility] [address] [facility] [id number] [address] [place] [id number] Sep, Migraine without aura and wi thout status migrainosus, not intractable G43.009 [facility] [address] [place] [id number] [address] [place] [address] Sep, Type 1 diabetes mellitus wit h hypoglycemia without coma E10.649 ; Anemia D64.9 ; Migraine without aura and without status migrainosus, not intractable G43.009 ; Chronic kidney disease, unspecified N18.9 ; Autonomic neuropathy G90.9 and Postural hypotension I95.1 [facility] [address] [place] [id number] [place] [address] Sep, Low back pain M54.5 [facility] [address] [place] [id number] [address] [place] [address] Aug, Low back pain M54.5 [facility] [address] [place] [id number] [place] [address] Jul, [facility] [address] [place] [id number] [place] [address] Jul, Low back pain M54.5 [facility] [address] [facility] [id number] [address] [place] [address] Jun, [facility] [address] [place] [id number] [place] [address] Jun, Low back pain M54.5 [facility] [address] [place] [id number] [address] [place] [id number] Jun, Migraine without aura and wi thout status migrainosus, not intractable G43.009 [facility] [address] [id number] [address] [place] [address] Jun, Type 1 diabetes mellitus wit h hyperglycemia E10.65 ; Dysthymia F34.1 and Migraine without aura and without status migrainosus, not intractable G43.009 [facility] [address] [id number] [address] [place] [id number] Jun, [facility] [address] [id number] [address] [place] [address] May, Type 1 diabetes mellitus wit hyperglycemia E10.65 [facility] [address] [facility] [id number] [address] [place] [id number] May, Low back pain M54.5 [facility] [address] [id number] [address] [place] [address] May, Type 1 diabetes mellitus wit hyperglycemia E10.65 [facility] [address] [id number] [address] [place] [address] Apr, [facility] [address] [facility] [id number] [address] [place] [address] Apr, Chronic kidney disease, stag e 4 (severe) N18.4 [facility] [address] [facility] [id number] [address] [place] [address] Apr, Low back pain M54.5 [facility] [address] [id number] [address] [place] [id number] March, [facility] [address] [id number] [address] [place] [address] March, Low back pain M54.5 [facility] [address] [facility] [id number] [address] [place] [address] Feb, [facility] [address] [facility] [id number] [address] [place] [phone] Feb, [facility] [address] [facility] [id number] [address] [place] [id number] Feb, Low back pain M54.5 [facility] [address] [facility] [id number] [address] [place] [phone] Feb, Low back pain M54.5 [facility] [address] [facility] [id number] [address] [place] [id number] Feb, Migraine without aura and wi thout status migrainosus, not intractable G43.009 [facility] [address] [facility] [id number] [address] [place] [id number] Feb, [facility] [address] [facility] [id number] [address] [place] [address] Jan, Low back pain M54.5 [facility] [address] [facility] [id number] [address] [place] [address] Jan, Type 1 diabetes mellitus wit hout complications E10.9 ; Anemia D64.9 ; Chronic kidney disease, unspecified N18.9 ; Migraine without aura and without status migrainosus, not intractable G43.009 and Other insomnia G47.09 [facility] [address] [facility] [id number] [address] [place] [address] Jan, [facility] [address] [place] [id number] [address] [place] [address] Dec, Low back pain M54.5 [facility] [address] [facility] [id number] [address] [place] [id number] Dec, [facility] [address] [facility] [id number] [address] [place] [id number] Dec, [facility] [address] [place] [id number] [place] [id number] 08 Dec, 2016 Shortness of breath R06.02 ; Type 1 diabetes mellitus without complications E10.9 and Leg swelling M79.89 [facility] [address] [place] [id number] [place] [address] Nov, Low back pain M54.5 [facility] [address] [id number] [address] [place] [address] Nov, Viral syndrome B34.9 [facility] [address] [id number] [address] [place] [id number] Oct, Low back pain M54.5 [facility] [address] [id number] [address] [place] [id number] Oct, [facility] [address] [id number] [address] [place] [id number] Oct, Low back pain M54.5 [facility] [address] [id number] [address] [place] [id number] Sep, [facility] [address] [id number] [address] [place] [id number] Sep, Fatigue, unspecified type R5 3.83 ; Type 1 diabetes mellitus without complications E10.9 and Anemia D64.9 [facility] [address] [id number] [address] [place] [phone] Sep, Low back pain M54.5 [facility] [address] [id number] [address] [place] [phone] Sep, Type 1 diabetes mellitus wit h hyperglycemia E10.65 [facility] [address] [id number] [address] [place] [id number] Aug, Type 1 diabetes mellitus wit hout complications E10.9 [facility] [address] [id number] [address] [place] [id number] Aug, [facility] [address] [id number] [address] [place] [phone] Aug, [facility] [address] [id number] [address] [place] [phone] Jul, [facility] [address] [id number] [address] [place] [id number] 14 Jul, 2016 Low back pain M54.5 [facility] [address] [facility] [id number] [address] [place] [id number] 12 Jul, 2016 Hyperkalemia, diminished anna al excretion E87.5 [facility] [address] [facility] [id number] [address] [place] [id number] 09 Jul, 2016 Hyperkalemia, diminished anna al excretion E87.5 [facility] [address] [facility] [id number] [address] [place] [id number] 30 Jun, 2016 [facility] [address] [facility] [id number] [address] [place] [id number] Jun, Low back pain M54.5 [facility] [address] [facility] [id number] [address] [place] [id number] Jun, Anemia D64.9 ; Autonomic ayush ropathy G90.9 and Postural hypotension I95.1 [facility] [address] [facility] [id number] [address] [place] [phone] Jun, [facility] [address] [facility] [id number] [address] [place] [id number] May, Type 1 diabetes mellitus wit h complications E10.8 and Anemia D64.9 [facility] [address] [facility] [id number] [address] [place] [id number] May, Low back pain M54.5 [facility] [address] [facility] [id number] [address] [place] [phone] Apr, [facility] [address] [facility] [id number] [address] [place] [id number] Apr, Low back pain M54.5 [facility] [address] [facility] [id number] [address] [place] [address] [id number] Apr, [facility] [address] [facility] [id number] [address] [place] [id number] Apr, [facility] [address] [facility] [id number] [address] [place] [id number] March, Low back pain M54.5 and Othe r chronic pain G89.29 [facility] [address] [facility] [id number] [address] [place] [id number] March, Type 1 diabetes mellitus wit hout complications E10.9 [facility] [address] [facility] [id number] [address] [place] [id number] March, [facility] [address] [facility] [id number] [address] [place] [id number] March, [facility] [address] [facility] [id number] [address] [place] [id number] Feb, [facility] [address] [facility] [id number] [address] [place] [id number] Feb, Type 1 diabetes mellitus wit hout complications E10.9 [facility] [address] [facility] [id number] [address] [place] [id number] Feb, Trochanteric bursitis, right hip M70.61 [facility] [address] [facility] [id number] [address] [place] [id number] Jan, [facility] [address] [facility] [id number] [address] [place] [id number] Jan, [facility] [address] [facility] [id number] [address] [place] [id number] Dec, Type 1 diabetes mellitus wit h complications E10.8 [facility] [address] [facility] [id number] [address] [place] [id number] Dec, [facility] [address] [facility] [id number] [address] [place] [id number] Dec, Anemia D64.9 ; Autonomic ayush ropathy G90.9 and Postural hypotension I95.1 [facility] [address] [facility] [id number] [address] [place] [id number] Dec, [facility] [address] [place] [id number] [address] [place] [id number] Nov, Sore throat J02.9 [facility] [address] [place] [id number] [address] [place] [id number] Nov, Type 1 diabetes mellitus wit h complications E10.8 [facility] [address] [place] [id number] [address] [place] [id number] Nov, Type 1 diabetes mellitus wit h diabetic nephropathy E10.21 ; Proteinuria, unspecified R80.9 and Chronic kidney disease, unspecified N18.9 [facility] [address] [place] [id number] [address] [place] [id number] Nov, [facility] [address] [id number] Nov, Trochanteric bursitis, right hip M70.61 [facility] [address] [id number] Nov, [facility] [address] [place] [id number] [address] [place] [phone] Oct, [facility] [address] [id number] Oct, [facility] [address] [place] [id number] [address] [place] [phone] Oct, [facility] [address] [place] [id number] [address] [place] [id number] Sep, [facility] [address] [place] [id number] [address] [place] [phone] Sep, [facility] [address] [id number] Sep, Type 2 diabetes mellitus wit h complication E11.8 and Right hip pain M25.551 [facility] [address] [place] [id number] [address] [place] [id number] Sep, [facility] [address] [place] [id number] [address] [place] [id number] Aug, [facility] [address] [id number] [address] [place] [phone] Aug, [facility] [address] [id number] [address] [place] [id number] Aug, [facility] [address] [id number] [address] [place] [id number] Aug, Type 1 diabetes mellitus wit hout complications E10.9 [facility] [address] [id number] [address] [place] [id number] 16 Jul, 2015 [facility] [address] [id number] [address] [place] [id number] 15 Jul, 2015 [facility] [address] [id number] [address] [place] [id number] 14 Jul, 2015 [facility] [address] [id number] [address] [place] [phone] Jun, [facility] [address] [id number] [address] [place] [phone] Jun, [facility] [address] [id number] [address] [place] [id number] Jun, [facility] [address] [id number] [address] [place] [id number] Jun, [facility] [address] [id number] [address] [place] [phone] Jun, [facility] [address] [id number] [address] [place] [id number] Jun, Diabetes mellitus without me ntion of complication, type I [juvenile type], not stated as uncontrolled 250.01 [facility] [address] [id number] [address] [place] [id number] May, [facility] [address] [id number] [address] [place] [id number] May, [facility] [address] [id number] [address] [place] [id number] May, [facility] [address] [id number] [address] [place] [id number] May, Autonomic neuropathy 337.9 ; Postural hypotension 458.0 and Anemia 285.9 [facility] [address] [id number] [address] [place] [id number] May, [facility] [address] [id number] [address] [place] [phone] Apr, [facility] [address] [id number] [address] [place] [address], [place] [address] Apr, [facility] [address] [id number] [address] [place] [phone] Apr, [facility] [address] [id number] [address] [place] [id number] Apr, [facility] [address] [id number] [address] [place] [phone] Apr, [facility] [address] [id number] [address] [place] [phone] March, [facility] [address] [id number] [address] [place] [id number] March, [facility] [address] [id number] [address] [place] [id number] March, [facility] [address] [id number] [address] [place] [phone] March, [facility] [address] [id number] [address] [place] [id number] March, [facility] [address] [id number] [address] [place] [phone] Feb, [facility] [address] [id number] [address] [place] [phone] Feb, [facility] [address] [id number] [address] [place] [address], [place] [id number] 13 Feb, 2015 [facility] [address] [id number] [address] [place] [address], [place] [id number] 30 Jan, 2015 [facility] [address] [id number] [address] [place] [address], [place] [address] 24 Jan, 2015 [facility] [address] [id number] [address] [place] [address], [place] [address] Jan, [facility] [address] [id number] [address] [place] [address], [place] [address] Jan, [facility] [address] [id number] [address] [place] [address], [place] [address] Jan, [facility] [address] [id number] [address] [place] [address], [place] [address] Jan, [facility] [address] [id number] [address] [place] [address], [place] [address] Jan, [facility] [address] [id number] [address] [place] [address], [place] [address] Jan, [facility] [address] [id number] [address] [place] [address], [place] [address] Jan, [facility] [address] [id number] [address] [place] [address], [place] [address] Jan, [facility] [address] [id number] [address] [place] [address], [place] [address] Jan, [facility] [address] [id number] [address] [place] [address], [place] [address] Jan, [facility] [address] [id number] [address] [place] [address], [place] [address] Jan, [facility] [address] [id number] [address] [place] [address], [place] [address] Dec, [facility] [address] [id number] [address] [place] [address], [place] [address] Dec, [facility] [address] [id number] [address] [place] [address], [place] [address] Dec, [facility] [address] [id number] [address] [place] [address], [place] [address] Dec, [facility] [address] [id number] [address] [place] [address], [place] [address] Dec, [facility] [address] [id number] [address] [place] [address], [place] [address] Dec, [facility] [address] [id number] [address] [place] [address], [place] [address] Dec, [facility] [address] [id number] [address] [place] [address], [place] [address] Dec, [facility] [address] [id number] [address] [place] [address], [place] [address] Nov, [facility] [address] [id number] [address] [place] [address], [place] [address] Nov, [facility] [address] [id number] [address] [place] [address], [place] [address] Nov, [facility] [address] [id number] [address] [place] [address], [place] [address] Nov, [facility] [address] [id number] [address] [place] [address], [place] [address] Nov, [facility] [address] [id number] [address] [place] [address], [place] [address] Nov, [facility] [address] [id number] [address] [place] [address], [place] [address] Nov, [facility] [address] [id number] [address] [place] [address], [place] [address] Nov, [facility] [address] [id number] [address] [place] [address], [place] [address] Nov, [facility] [address] [id number] [address] [place] [address], [place] [address] Oct, [facility] [address] [id number] [address] [place] [address], [place] [address] Oct, [facility] [address] [id number] [address] [place] [address], [place] [address] Oct, [facility] [address] [id number] [address] [place] [address], [place] [address] Oct, [facility] [address] [id number] [address] [place] [address], [place] [address] Oct, [facility] [address] [id number] [address] [place] [address], [place] [address] Oct, [facility] [address] [id number] [address] [place] [address], [place] [address] Oct, [facility] [address] [id number] [address] [place] [address], [place] [address] Oct, [facility] [address] [id number] [address] [place] [address], [place] [address] Oct, [facility] [address] [id number] [address] [place] [address], [place] [address] Oct, [facility] [address] [id number] [address] [place] [address], [place] [address] Oct, [facility] [address] [id number] [address] [place] [address], [place] [address] Oct, [facility] [address] [id number] [address] [place] [address], [place] [address] Oct, [facility] [address] [id number] [address] [place] [address], [place] [address] Oct, [facility] [address] [id number] [address] [place] [address], [place] [address] Sep, [facility] [address] [id number] [address] [place] [address], [place] [address] Sep, [facility] [address] [id number] [address] [place] [address], [place] [address] Sep, [facility] [address] [id number] [address] [place] [address], [place] [address] Sep, [facility] [address] [id number] [address] [place] [address], [place] [address] Aug, [facility] [address] [id number] [address] [place] [address], [place] [address] Aug, [facility] [address] [id number] [address] [place] [address], [place] [address] Aug, [facility] [address] [id number] [address] [place] [address], [place] [address] Aug, [facility] [address] [id number] [address] [place] [address], [place] [address] Aug, [facility] [address] [id number] [address] [place] [id number] Aug, [facility] [address] [id number] [address] [place] [address], [place] [address] Aug, [facility] [address] [id number] [address] [place] [id number] Aug, [facility] [address] [id number] [address] [place] [id number] Aug, [facility] [address] [id number] [address] [place] [id number] Aug, [facility] [address] [id number] [address] [place] [address], [place] [address] Jul, [facility] [address] [id number] [address] [place] [address], [place] [address] Jul, [facility] [address] [id number] [address] [place] [id number] Jul, [facility] [address] [id number] [address] [place] [id number] 29 Sep, 2013 [facility] [address] [id number] [facility] [place] [address] 22 Sep, 2013 [facility] [address] [id number] [address] [place] [address], [place] [address] 22 Sep, 2013 [facility] [address] [id number] [address] [place] [address], [place] [address] 19 Sep, 2013 [facility] [address] [id number] [address] [place] [address], [place] [address] 19 Sep, 2013 [facility] [address] [id number] [address] [place] [address], [place] [address] 11 Jul, 2013 [facility] [address] [id number] [address] [place] [address], [place] [address] 11 Jul, 2013 [facility] [address] [id number] [address] [place] [address], [place] [address] 10 Jul, 2013 [facility] [address] [id number] [address] [place] [address], [place] [address] 10 Jul, 2013 [facility] [address] [id number] [address] [place] [address], [place] [address] 08 Jul, 2013 [facility] [address] [id number] [address] [place] [address], [place] [address] 08 Jul, 2013 [facility] [address] [id number] [address] [place] [address], [place] [address] 03 Sep, 2013 [facility] [address] [id number] [address] [place] [address], [place] [address] 03 Sep, 2013 [facility] [address] [id number] [address] [place] [address], [place] [address] 02 Sep, 2013 [facility] [address] [id number] [address] [place] [address], [place] [address] 02 Jul, 2013 [facility] [address] [id number] [address] [place] [address], [place] [address] 29 Jun, 2013 [facility] [address] [id number] [facility] [place] [address] Jun, [facility] [address] [id number] [facility] [place] [address] Jun, [facility] [address] [id number] [facility] [place] [address] Jun, [facility] [address] [id number] [facility] [place] [address] Jun, [facility] [address] [id number] [facility] [place] [address] Jun, [facility] [address] [id number] [address] [place] [address], [place] [address] Jun, [facility] [address] [id number] [address] [place] [address], [place] [address] Jun, [facility] [address] [id number] [address] [place] [address], [place] [address] Jun, [facility] [address] [id number] [address] [place] [address], [place] [address] Jun, [facility] [address] [id number] [address] [place] [address], [place] [address] Jun, [facility] [address] [id number] [address] [place] [address], [place] [address] Jun, [facility] [address] [id number] [address] [place] [address], [place] [address] Jun, [facility] [address] [id number] [address] [place] [address], [place] [address] Jun, [facility] [address] [id number] [address] [place] [address], [place] [address] Jun, [facility] [address] [id number] [address] [place] [address], [place] [address] May, [facility] [address] [id number] [address] [place] [address], [place] [address] May, [facility] [address] [id number] [facility] [place] [address] May, [facility] [address] [id number] [address] [place] [address], [place] [address] May, [facility] [address] [id number] [address] [place] [address], [place] [address] May, [facility] [address] [id number] [address] [place] [address], [place] [address] May, [facility] [address] [id number] [address] [place] [address], [place] [address] May, [facility] [address] [id number] [address] [place] [address], [place] [address] May, [facility] [address] [id number] [address] [place] [address], [place] [address] Apr, [facility] [address] [id number] [address] [place] [address], [place] [address] Apr, [facility] [address] [id number] [address] [place] [address], [place] [address] Apr, [facility] [address] [id number] [address] [place] [address], [place] [address] Apr, [facility] [address] [id number] [address] [place] [address], [place] [address] Apr, [facility] [address] [id number] [address] [place] [address], [place] [address] Apr, [facility] [address] [id number] [address] [place] [address], [place] [address] Apr, [facility] [address] [id number] [address] [place] [address], [place] [address] Apr, [facility] [address] [id number] [address] [place] [address], [place] [address] Apr, [facility] [address] [id number] [address] [place] [address], [place] [id number] Apr, [facility] [address] [id number] [address] [place] [address], [place] [address] Apr, [facility] [address] [id number] [address] [place] [address], [place] [address] Apr, [facility] [address] [id number] [address] [place] [address], [place] [address] Apr, [facility] [address] [id number] [address] [place] [address], [place] [id number] Apr, [facility] [address] [id number] [address] [place] [address], [place] [id number] Apr, [facility] [address] [id number] [address] [place] [address], [place] [id number] Apr, [facility] [address] [id number] [address] [place] [address], [place] [address] Apr, [facility] [address] [id number] [address] [place] [address], [place] [address] Apr, [facility] [address] [id number] [address] [place] [address], [place] [address] March, [facility] [address] [id number] [address] [place] [address], [place] [id number] March, [facility] [address] [id number] [address] [place] [address], [place] [id number] March, [facility] [address] [id number] [address] [place] [address], [place] [address] March, [facility] [address] [id number] [address] [place] [address], [place] [id number] March, [facility] [address] [id number] [address] [place] [address], [place] [address] March, [facility] [address] [id number] [address] [place] [address], [place] [id number] March, [facility] [address] [id number] [address] [place] [address], [place] [address] March, [facility] [address] [id number] [address] [place] [address], [place] [address] March, [facility] [address] [id number] [address] [place] [address], [place] [address] Feb, [facility] [address] [id number] [address] [place] [address], [place] [id number] Feb, [facility] [address] [id number] [address] [place] [address], [place] [address] Feb, [facility] [address] [id number] [address] [place] [address], [place] [id number] Feb, [facility] [address] [id number] [address] [place] [address], [place] [address] Feb, [facility] [address] [id number] [address] [place] [address], [place] [address] Feb, [facility] [address] [id number] [address] [place] [address], [place] [address] Feb, [facility] [address] [id number] [address] [place] [address], [place] [address] Feb, [facility] [address] [id number] [address] [place] [address], [place] [address] Feb, [facility] [address] [id number] [address] [place] [address], [place] [address] Feb, [facility] [address] [id number] [address] [place] [address], [place] [address] Feb, [facility] [address] [id number] [address] [place] [address], [place] [id number] Feb, [facility] [address] [id number] [address] [place] [address], [place] [id number] Feb, [facility] [address] [id number] [address] [place] [address], [place] [id number] Jan, [facility] [address] [id number] [address] [place] [address], [place] [address] Jan, [facility] [address] [id number] [address] [place] [address], [place] [address] Jan, [facility] [address] [id number] [address] [place] [address], [place] [address] Jan, [facility] [address] [id number] [address] [place] [address], [place] [address] Jan, [facility] [address] [id number] [address] [place] [address], [place] [address] Jan, [facility] [address] [id number] [address] [place] [address], [place] [address] Jan, [facility] [address] [id number] [address] [place] [address], [place] [address] Jan, [facility] [facility] [address] [id number] [address] [place] [address], [place] [address] Dec, [facility] [address] [id number] [address] [place] [address], [place] [address] Dec, [facility] [address] [id number] [address] [place] [address], [place] [address] Dec, [facility] [address] [id number] [address] [place] [address], [place] [address] Dec, [facility] [address] [id number] [address] [place] [address], [place] [address] Dec, [facility] [address] [id number] [address] [place] [address], [place] [address] Dec, [facility] [address] [id number] [address] [place] [address], [place] [address] Dec, [facility] [address] [id number] [address] [place] [address], [place] [address] Dec, [facility] [address] [id number] [address] [place] [address], [place] [address] Dec, [facility] [address] [id number] [address] [place] [address], [place] [address] Dec, [facility] [address] [id number] [address] [place] [address], [place] [address] Nov, [facility] [address] [id number] [address] [place] [address], [place] [address] Nov, [facility] [address] [id number] [address] [place] [address], [place] [address] Nov, [facility] [address] [id number] [address] [place] [address], [place] [address] Nov, [facility] [address] [id number] [address] [place] [address], [place] [address] Nov, [facility] [address] [id number] [address] [place] [address], [place] [address] Nov, [facility] [address] [id number] [address] [place] [address], [place] [address] Nov, [facility] [address] [id number] [address] [place] [address], [place] [address] Nov, [facility] [address] [id number] [address] [place] [address], [place] [address] Nov, [facility] [address] [id number] [address] [place] [address], [place] [address] Nov, [facility] [address] [id number] [address] [place] [address], [place] [address] Oct, [facility] [address] [id number] [address] [place] [address], [place] [address] Oct, [facility] [address] [id number] [address] [place] [address], [place] [address] Oct, [facility] [address] [id number] [address] [place] [id number] 18 Oct, 2013 [facility] [address] [id number] [address] [place] [address], [place] [address] 17 Oct, 2013 [facility] [address] [id number] [address] [place] [address], [place] [address] 17 Oct, 2013 [facility] [address] [id number] [address] [place] [address], [place] [address] 16 Oct, 2013 [facility] [address] [id number] [address] [place] [address], [place] [address] 16 Oct, 2013 [facility] [address] [id number] [address] [place] [address], [place] [address] 11 Oct, 2013 [facility] [address] [id number] [address] [place] [address], [place] [address] 11 Oct, 2013 [facility] [address] [id number] [address] [place] [address], [place] [address] 04 Oct, 2013 [facility] [address] [id number] [address] [place] [address], [place] [id number] 04 Oct, 2013 [facility] [address] [id number] [address] [place] [address], [place] [address] 04 Oct, 2013 [facility] [address] [id number] [address] [place] [address], [place] [address] 04 Oct, 2013 [facility] [address] [id number] [address] [place] [address], [place] [address] 27 Sep, 2013 [facility] [address] [id number] [address] [place] [id number] 27 Sep, 2013 [facility] [address] [id number] [address] [place] [address], [place] [address] 18 Sep, 2013 [facility] [address] [id number] [address] [place] [address], [place] [address] 18 Sep, 2013 [facility] [address] [id number] [address] [place] [address], [place] [address] 13 Sep, 2013 [facility] [address] [id number] [address] [place] [address], [place] [address] 13 Sep, 2013 [facility] [address] [id number] [address] [place] [address], [place] [address] 31 Aug, 2012 [facility] [address] [id number] [address] [place] [address], [place] [address] 31 Aug, 2013 [facility] [address] [id number] [address] [place] [address], [place] [address] 17 Aug, 2012 [facility] [address] [id number] [address] [place] [address], [place] [address] 17 Aug, 2012 [facility] [address] [id number] [address] [place] [address], [place] [address] 10 Aug, 2013 [facility] [address] [id number] [address] [place] [address], [place] [address] 10 Aug, 2012 [facility] [address] [id number] [address] [place] [address], [place] [address] 07 Aug, 2013 [facility] [address] [id number] [address] [place] [address], [place] [address] 02 Aug, 2013 [facility] [address] [id number] [address] [place] [address], [place] [address] 02 Aug, 2013 [facility] [address] [id number] [address] [place] [address], [place] [address] 25 Jul, 2012 [facility] [address] [id number] [address] [place] [address], [place] [id number] 23 Sep, 2012 [facility] [address] [id number] [address] [place] [address], [place] [address] 21 Sep, 2012 [facility] [address] [id number] [address] [place] [address], [place] [address] 20 Sep, 2012 [facility] [address] [id number] [address] [place] [address], [place] [address] 18 Sep, 2012 [facility] [address] [id number] [address] [place] [address], [place] [id number] 17 Sep, 2012 [facility] [address] [id number] [address] [place] [address], [place] [address] 16 Jul, 2012 [facility] [address] [id number] [address] [place] [address], [place] [address] 11 Jul, 2012 [facility] [address] [id number] [address] [place] [address], [place] [address] 09 Jul, 2012 [facility] [address] [id number] [address] [place] [address], [place] [address] 09 Jul, 2012 [facility] [address] [id number] [address] [place] [address], [place] [address] 06 Jul, 2012 [facility] [address] [id number] [address] [place] [address], [place] [address] 03 Jul, 2012 [facility] [address] [id number] [address] [place] [address], [place] [address] Jun, [facility] [address] [id number] [address] [place] [address], [place] [address] Jun, [facility] [address] [id number] [address] [place] [address], [place] [address] Jun, [facility] [address] [id number] [address] [place] [address], [place] [address] Jun, [facility] [address] [id number] [address] [place] [address], [place] [address] Jun, [facility] [address] [id number] [address] [place] [address], [place] [address] Jun, [facility] [address] [id number] [address] [place] [address], [place] [address] Jun, [facility] [address] [id number] [address] [place] [address], [place] [address] Jun, [facility] [address] [id number] [address] [place] [address], [place] [address] Jun, [facility] [address] [id number] [address] [place] [address], [place] [address] May, [facility] [address] [id number] [address] [place] [address], [place] [address] May, [facility] [address] [id number] [address] [place] [address], [place] [address] May, [facility] [address] [id number] [address] [place] [address], [place] [address] May, [facility] [address] [id number] [address] [place] [address], [place] [address] May, [facility] [address] [id number] [address] [place] [address], [place] [address] May, [facility] [address] [id number] [address] [place] [address], [place] [address] May, [facility] [address] [id number] [address] [place] [address], [place] [address] March, [facility] [address] [id number] [address] [place] [address], [place] [address] March, [facility] [address] [id number] [address] [place] [address], [place] [address] March, [facility] [address] [id number] [address] [place] [address], [place] [address] Dec, [facility] [address] [id number] [address] [place] [address], [place] [address] Nov, [facility] [address] [id number] [address] [place] [address], [place] [address] Aug, [facility] [address] [id number] [address] [place] [address], [place] [address] Aug, [facility] [address] [id number] [address] [place] [address], [place] [address] Jun, [facility] [address] [id number] [address] [place] [address], [place] [address] Jun, [facility] [address] [id number] [address] [place] [address], [place] [address] Jun, [facility] [address] [id number] [address] [place] [address], [place] [address] Jun, [facility] [address] [id number] [address] [place] [address], [place] [address] May, [facility] [address] [id number] [address] [place] [address], [place] [address] May, [facility] [address] [id number] [address] [place] [address], [place] [address] May, [facility] [address] [id number] [address] [place] [address], [place] [address] May, [facility] [address] [id number] [address] [place] [address], [place] [address] May, [facility] [address] [id number] [address] [place] [address], [place] [address] May, [facility] [address] [id number] [address] [place] [address], [place] [address] May, [facility] [address] [id number] [address] [place] [address], [place] [address] Apr, [facility] [address] [id number] [address] [place] [address], [place] [address] Apr, [facility] [address] [id number] [address] [place] [address], [place] [address] Apr, [facility] [address] [id number] [address] [place] [address], [place] [address] Apr, [facility] [address] [id number] [address] [place] [address], [place] [address] March, [facility] [address] [id number] [address] [place] [address], [place] [address] March, [facility] [address] [id number] [address] [place] [address], [place] [address] March, [facility] [address] [id number] [address] [place] [address], [place] [address] March, [facility] [address] [id number] [address] [place] [address], [place] [address] March, [facility] [address] [id number] [address] [place] [address], [place] [address] March, [facility] [address] [id number] [address] [place] [address], [place] [address] March, [facility] [address] [id number] [address] [place] [address], [place] [address] March, [facility] [address] [id number] [address] [place] [address], [place] [address] March, [facility] [address] [id number] [address] [place] [address], [place] [address] Feb, [facility] [address] [id number] [address] [place] [address], [place] [address] Feb, [facility] [address] [id number] [address] [place] [address], [place] [address] Jan, [facility] [address] [id number] [address] [place] [address], [place] [address] Jan, [facility] [address] [id number] [address] [place] [address], [place] [address] Jan, [facility] [address] [id number] [address] [place] [address], [place] [address] 05 Jan, 2012 [facility] [address] [id number] [address] [place] [address], [place] [address] Dec, [facility] [address] [id number] [address] [place] [address], [place] [address] 16 Dec, 2011 [facility] [address] [id number] [address] [place] [address], [place] [address] 15 Dec, 2011 [facility] [address] [id number] [address] [place] [address], [place] [address] 30 Nov, 2011 [facility] [address] [id number] [address] [place] [address], [place] [address] 19 Oct, 2011 [facility] [address] [id number] [address] [place] [address], [place] [id number] 15 Oct, 2011 [facility] [address] [id number] [address] [place] [address], [place] [address] 15 Oct, 2011 [facility] [address] [id number] [address] [place] [address], [place] [address] 14 Oct, 2011 [facility] [address] [id number] [address] [place] [address], [place] [address] Oct, [facility] [address] [id number] [address] [place] [address], [place] [address] 12 Oct, 2011 [facility] [address] [id number] [address] [place] [address], [place] [address] Oct, [facility] [address] [id number] [address] [place] [address], [place] [address] Oct, [facility] [address] [id number] [address] [place] [address], [place] [address] Sep, [facility] [address] [id number] [address] [place] [address], [place] [address] 17 Sep, 2011 [facility] [address] [id number] [address] [place] [address], [place] [address] 14 Sep, 2011 [facility] [address] [id number] [address] [place] [address], [place] [address] Sep, [facility] [address] [id number] [address] [place] [address], [place] [address] 10 Sep, 2011 [facility] [address] [id number] [address] [place] [address], [place] [address] 09 Sep, 2011 [facility] [address] [id number] [address] [place] [address], [place] [address] Sep, [facility] [address] [id number] [address] [place] [id number] Sep, [facility] [address] [id number] [address] [place] [id number] Sep, [facility] [address] [id number] [address] [place] [id number] Aug, [facility] [address] [facility] [id number] [address] [place] [id number] Jul, [facility] [address] [facility] [id number] [address] [place] [id number] Oct, [facility] [address] [facility] [id number] [address] [place] [id number] Oct, [facility] [address] [facility] [id number] [address] [place] [id number] Oct, IMMUNIZATIONS No Known Immunizations SOCIAL HISTORY [...]
--- OUTSIDE RECORDS SUMMARY | 2020-03-19 05:52 | XMS REPORT ---
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 47330618 Problem Chronic kidney disease, unspecified N18.9 Active 196834637 Problem Anemia, unspecified D64.9 Active 024614702 Problem Irritable bowel K58.9 Active 1074 3008 Problem Type 1 diabetes mellitus without complications E10 .9 Active 967439766 Problem Migraine G43.909 Active 95200312 Problem Irritable bowel syndrome with diarrhea K58.0 Active 600869788 Problem Peritoneal dialysis status Z99.2 Act moody 797601762 Problem Essential hypertension I10 Active 41100144 Problem Intractable migraine without aura and with status migr ainosus G43.011 Active 365099482 Problem Type 1 diabetes mellitus with hypoglycemia without coma E10.649 Active 22499335 Problem Type 1 diabetes mellitus with hyperglycemia E10.65 Active 98857856 Problem Dysthymia F34.1 Active 31981431 Problem Chronic kidney disease, stage 4 (severe) N18.4 Active 239304834 Problem Migraine with aura and without status migrainosu s, not intractable G43.109 Active 1510324 Problem Autonomic neuropathy G90.9 Active 810138453 Problem Type 1 diabetes mellitus with complications E10.8 Active 249129656 Problem Menorrhagia with regular cycle N92.0 Active 582495115 Problem Lymphedema I89.0 Active 412083884 Problem Claudication I73.9 Active 4169718 6 Problem Other chronic pain G89.29 Active 8 4842850 Problem Diastolic dysfunction I51.89 Active 1749667 Problem ESRF (end stage renal failure) N18.6 Active 22684998 Problem 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 Active 212306880 Problem Migraine without aura and without status migrain osus, not intractable G43.009 Active 159703674 Problem Type 1 diabetes mellitus with foot ulcer E10.621 Active [id number] Problem Low back pain M54.5 Active 026359 009 Problem Other insomnia G47.09 Active 88711 2000 Problem Restless legs G25.81 Active 239439 08 Problem Hyperthyroidism E05.90 Active 3448 6009 Problem Moderate episode of recurrent major depressive disorder F33.1 Active 833319121 Problem Primary insomnia F51.01 Active 397 2004 ALLERGIES No Information ENCOUNTERS Encounter Location Date Diagnosis [facility] [address] [phone] 15 Apr, 2020 [facility] [id number] [place] [id number] 28 Jan, 2020 Type 1 diabetes mellitus wit h foot ulcer E10.621 and Non-pressure chronic ulcer of other part of right foot limited to breakdown of skin L97.511 [facility] [address] [id number] [place] [id number] 23 Jan, 2020 Type 1 diabetes mellitus wit h diabetic nephropathy E10.21 [facility] [id number] [place] [id number] 20 Jan, 2020 [facility] [id number] [place] [id number] 16 Jan, 2020 Migraine without aura and wi thout status migrainosus, not intractable G43.009 and Type 1 diabetes mellitus with hypoglycemia without coma E10.649 [facility] [address] [facility] [id number] [address] [place] [id number] 11 Jan, 2020 [facility] [address] [facility] [id number] [address] [place] [id number] 10 Jan, 2020 Type 1 diabetes mellitus wit h hyperglycemia E10.65 ; Orthostatic hypotension I95.1 and Restless legs G25.81 [facility] [address] [id number] [address] [place] [id number] 06 Dec, 2019 Caries K02.9 and Dental exam ination Z01.20 [place] [address] [id number] [place] [id number] 30 Oct, 2019 Restless legs G25.81 [place] [address] [id number] [place] [id number] 16 Oct, 2019 Encounter for Medicare darian chauhan wellness exam Z00.00 ; 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 ; Migraine without aura and without status migrainosus, not intractable G43.009 ; Chronic kidney disease, stage 4 (severe) N18.4 ; Claudication I73.9 ; Peritoneal dialysis status Z99.2 ; Diastolic dysfunction I51.89 ; Primary insomnia F51.01 and Burn T30.0 [place] [address] [id number] [place] [id number] Sep, Moderate episode of recurren t major depressive disorder F33.1 and Primary insomnia F51.01 [place] [address] [address] [id number] [place] [id number] Aug, Hyperthyroidism E05.90 [place] [address] [id number] [place] [id number] May, Restless legs G25.81 [place] [address] [id number] [place] [id number] May, [place] [address] [address] [id number] [place] [phone] May, [place] [address] [id number] [place] [id number] May, Type 1 diabetes mellitus wit h hypoglycemia without coma E10.649 ; ESRF (end stage renal failure) N18.6 ; Leg cramps R25.2 ; Restless legs G25.81 and Low back pain M54.5 [place] [address] [address] [id number] [place] [id number] Apr, Low back pain M54.5 [facility] [address] [id number] [address] [place] [phone] Apr, [facility] [address] [id number] [address] [place] [id number] March, Low back pain M54.5 [facility] [address] [facility] [id number] [address] [place] [id number] March, [facility] [address] [id number] [address] [place] [id number] Feb, Low back pain M54.5 [facility] [address] [id number] [address] [place] [id number] Jan, Low back pain M54.5 [facility] [address] [id number] [address] [place] [phone] Jan, [facility] [address] [facility] [id number] [address] [place] [id number] Jan, [facility] [address] [id number] [address] [place] [id number] Jan, [facility] [address] [facility] [id number] [address] [place] [id number] Dec, Type 1 diabetes mellitus wit h hypoglycemia without coma E10.649 and Low back pain M54.5 [facility] [address] [facility] [id number] [address] [place] [id number] Dec, Low back pain M54.5 [facility] [address] [facility] [id number] [address] [place] [id number] 13 Dec, 2018 Diastolic dysfunction I51.89 ; Essential hypertension I10 and Chronic kidney disease, stage 4 (severe) N18.4 [facility] [address] [facility] [id number] [address] [place] [id number] 11 Dec, 2018 RUQ abdominal pain R10.11 ; Type 1 diabetes mellitus without complications E10.9 ; Therapeutic drug monitoring Z51.81 ; Migraine with aura and without status migrainosus, not intractable G43.109 and Intractable migraine without aura and with status migrainosus G43.011 [facility] [address] [facility] [id number] [address] [place] [id number] Nov, Low back pain M54.5 [facility] [address] [facility] [id number] [address] [place] [phone] Nov, [facility] [address] [id number] [place] [phone] Nov, Intractable migraine without aura and with status migrainosus G43.011 ; Lymphedema I89.0 ; Pain in right shoulder M25.511 ; Other chronic pain G89.29 ; Irritable bowel syndrome with diarrhea K58.0 ; Type 1 diabetes mellitus without complications E10.9 and Essential hypertension I10 [place] [address] [id number] [place] [id number] Oct, Low back pain M54.5 [place] [address] [place] [id number] [place] [id number] Oct, [place] [address] [facility] [id number] [address] [place] [id number] Oct, Orthostatic hypotension I95. 1 ; Shortness of breath R06.02 ; Leg swelling M79.89 ; Type 1 diabetes mellitus without complications E10.9 and Claudication I73.9 [place] [address] [place] [id number] [place] [id number] 30 Sep, 2018 Low back pain M54.5 [place] [address] [facility] [id number] [address] [place] [id number] Sep, Low back pain M54.5 [facility] [address] [facility] [id number] [address] [place] [phone] Aug, [place] [address] [facility] [id number] [address] [place] [id number] Aug, Migraine without aura and wi thout status migrainosus, not intractable G43.009 [place] [address] [id number] [address] [place] [id number] Aug, Low back pain M54.5 [facility] [address] [id number] [address] [place] [id number] Aug, Acute rhinosinusitis J01.90 and Sore throat J02.9 [facility] [address] [id number] [address] [place] [id number] Jul, Low back pain M54.5 [facility] [address] [id number] [address] [place] [id number] Jul, Migraine without aura and wi thout status migrainosus, not intractable G43.009 [facility] [address] [facility] [id number] [address] [place] [id number] Jun, Low back pain M54.5 [facility] [address] [facility] [id number] [address] [place] [id number] Jun, [facility] [address] [facility] [id number] [address] [place] [id number] Jun, Orthostatic hypotension I95. 1 ; Shortness of breath R06.02 ; Type 1 diabetes mellitus without complications E10.9 and Leg swelling M79.89 [facility] [address] [facility] [id number] [address] [place] [phone] Jun, Low back pain M54.5 [facility] [address] [facility] [id number] [address] [place] [id number] Jun, [facility] [address] [facility] [id number] [address] [place] [id number] May, Migraine without aura and wi thout status migrainosus, not intractable G43.009 [facility] [address] [facility] [id number] [address] [place] [id number] May, Migraine without aura and wi thout status migrainosus, not intractable G43.009 ; Restless legs syndrome G25.81 ; Leg cramps R25.2 ; Chronic kidney disease, unspecified N18.9 ; Postural hypotension I95.1 ; Diarrhea, unspecified type R19.7 and Cough R05 [facility] [address] [facility] [id number] [address] [place] [id number] May, [facility] [address] [facility] [id number] [address] [place] [phone] May, [facility] [address] [facility] [id number] [address] [place] [id number] May, Orthostatic hypotension I95. 1 ; Shortness of breath R06.02 ; Type 1 diabetes mellitus with complications E10.8 and Leg swelling M79.89 [facility] [address] [facility] [id number] [address] [place] [phone] May, [facility] [address] [id number] [place] [id number] May, Low back pain M54.5 [facility] [address] [facility] [id number] [address] [place] [id number] Apr, Type 1 diabetes mellitus wit h hyperglycemia E10.65 [place] [address] [facility] [id number] [address] [place] [id number] Apr, Low back pain M54.5 [facility] [address] [facility] [id number] [address] [place] [id number] Apr, [facility] [address] [facility] [id number] [address] [place] [phone] Apr, [facility] [address] [facility] [id number] [address] [place] [id number] March, [facility] [address] [facility] [id number] [address] [place] [id number] March, Low back pain M54.5 [facility] [address] [facility] [id number] [address] [place] [id number] March, [facility] [address] [facility] [id number] [address] [place] [id number] Feb, [facility] [address] [facility] [id number] [address] [place] [phone] Feb, Low back pain M54.5 [facility] [address] [facility] [id number] [address] [place] [id number] Jan, Restless legs syndrome G25.8 1 [facility] [address] [facility] [id number] [address] [place] [id number] Jan, Low back pain M54.5 [facility] [address] [facility] [id number] [address] [place] [phone] Jan, [facility] [address] [facility] [id number] [address] [place] [id number] Jan, Type 1 diabetes mellitus wit hout complications E10.9 ; Low back pain M54.5 ; Cough R05 ; Diarrhea, unspecified type R19.7 ; Migraine without aura and without status migrainosus, not intractable G43.009 and Uses control Z30.9 [facility] [address] [facility] [id number] [address] [place] [id number] Dec, Low back pain M54.5 [facility] [address] [facility] [id number] [address] [place] [id number] Dec, [facility] [address] [facility] [id number] [address] [place] [id number] Nov, Well woman exam Z01.419 ; Me norrhagia with regular cycle N92.0 ; Vaginal dryness N89.8 and Migraine with aura and without status migrainosus, not intractable G43.109 [facility] [address] [facility] [id number] [address] [place] [id number] Nov, [facility] [address] [facility] [id number] [address] [place] [phone] Nov, Low back pain M54.5 [facility] [address] [facility] [id number] [address] [place] [id number] Oct, Low back pain M54.5 [facility] [address] [facility] [id number] [address] [place] [id number] Oct, Migraine without aura and wi thout status migrainosus, not intractable G43.009 [facility] [address] [id number] [address] [place] [id number] Sep, Low back pain M54.5 [facility] [address] [facility] [id number] [address] [place] [phone] Sep, [facility] [address] [facility] [id number] [address] [place] [id number] Sep, Migraine without aura and wi thout status migrainosus, not intractable G43.009 [facility] [address] [facility] [id number] [address] [place] [id number] Sep, Type 1 diabetes mellitus wit h hypoglycemia without coma E10.649 ; Anemia D64.9 ; Migraine without aura and without status migrainosus, not intractable G43.009 ; Chronic kidney disease, unspecified N18.9 ; Autonomic neuropathy G90.9 and Postural hypotension I95.1 [facility] [address] [facility] [id number] [address] [place] [id number] Sep, Low back pain M54.5 [facility] [address] [facility] [id number] [address] [place] [id number] Aug, Low back pain M54.5 [facility] [address] [facility] [id number] [address] [place] [id number] 14 Jul, 2017 [facility] [address] [facility] [id number] [address] [place] [id number] Jul, Low back pain M54.5 [facility] [address] [facility] [id number] [address] [place] [id number] Jun, [facility] [address] [facility] [id number] [address] [place] [id number] Jun, Low back pain M54.5 [facility] [address] [id number] [address] [place] [id number] 02 Jun, 2017 Migraine without aura and wi thout status migrainosus, not intractable G43.009 [facility] [address] [id number] [address] [place] [id number] 02 Jun, 2017 Type 1 diabetes mellitus wit h hyperglycemia E10.65 ; Dysthymia F34.1 and Migraine without aura and without status migrainosus, not intractable G43.009 [facility] [address] [id number] [address] [place] [id number] Jun, [facility] [address] [id number] [address] [place] [id number] May, Type 1 diabetes mellitus wit h hyperglycemia E10.65 [facility] [address] [facility] [id number] [address] [place] [id number] May, Low back pain M54.5 [facility] [address] [id number] [address] [place] [phone] May, Type 1 diabetes mellitus wit h hyperglycemia E10.65 [facility] [address] [id number] [address] [place] [phone] Apr, [facility] [address] [id number] [address] [place] [id number] Apr, Chronic kidney disease, stag e 4 (severe) N18.4 [facility] [address] [id number] [address] [place] [id number] Apr, Low back pain M54.5 [facility] [address] [id number] [address] [place] [id number] March, [facility] [address] [facility] [id number] [address] [place] [id number] March, Low back pain M54.5 [facility] [address] [facility] [id number] [address] [place] [id number] Feb, [facility] [address] [facility] [id number] [address] [place] [id number] Feb, [facility] [address] [facility] [id number] [address] [place] [id number] Feb, Low back pain M54.5 [facility] [address] [place] [id number] [place] [id number] Feb, Low back pain M54.5 [facility] [address] [place] [id number] [place] [id number] Feb, Migraine without aura and wi thout status migrainosus, not intractable G43.009 [facility] [address] [place] [id number] [place] [phone] Feb, [facility] [address] [place] [id number] [place] [phone] Jan, Low back pain M54.5 [facility] [address] [id number] Jan, Type 1 diabetes mellitus wit hout complications E10.9 ; Anemia D64.9 ; Chronic kidney disease, unspecified N18.9 ; Migraine without aura and without status migrainosus, not intractable G43.009 and Other insomnia G47.09 [facility] [address] [place] [id number] [place] [id number] Jan, [facility] [address] [place] [id number] [place] [id number] Dec, Low back pain M54.5 [facility] [address] [place] [id number] [place] [id number] Dec, [facility] [address] [place] [id number] [place] [id number] Dec, [facility] [address] [place] [id number] [place] [phone] Dec, Shortness of breath R06.02 ; Type 1 diabetes mellitus without complications E10.9 and Leg swelling M79.89 [facility] [address] [id number] [address] [place] [id number] Nov, Low back pain M54.5 [facility] [address] [id number] [address] [place] [id number] Nov, Viral syndrome B34.9 [facility] [address] [id number] [address] [place] [id number] Oct, Low back pain M54.5 [facility] [address] [id number] [address] [place] [id number] Oct, [facility] [address] [id number] [address] [place] [id number] Oct, Low back pain M54.5 [facility] [address] [facility] [id number] [address] [place] [id number] Sep, [facility] [address] [facility] [id number] [address] [place] [id number] Sep, Fatigue, unspecified type R5 3.83 ; Type 1 diabetes mellitus without complications E10.9 and Anemia D64.9 [facility] [address] [id number] [address] [place] [id number] Sep, Low back pain M54.5 [facility] [address] [id number] [address] [place] [id number] Sep, Type 1 diabetes mellitus wit h hyperglycemia E10.65 [facility] [address] [id number] [address] [place] [phone] Aug, Type 1 diabetes mellitus wit hout complications E10.9 [facility] [address] [id number] [address] [place] [phone] Aug, [facility] [address] [id number] [address] [place] [phone] Aug, [facility] [address] [facility] [id number] [address] [place] [phone] Jul, [facility] [address] [facility] [id number] [address] [place] [phone] 14 Jul, 2016 Low back pain M54.5 [facility] [address] [facility] [id number] [address] [place] [phone] 12 Jul, 2016 Hyperkalemia, diminished anna al excretion E87.5 [facility] [address] [facility] [id number] [address] [place] [phone] 09 Jul, 2016 Hyperkalemia, diminished anna al excretion E87.5 [facility] [address] [facility] [id number] [address] [place] [phone] Jun, [facility] [address] [facility] [id number] [address] [place] [phone] Jun, Low back pain M54.5 [facility] [address] [facility] [id number] [address] [place] [phone] Jun, Anemia D64.9 ; Autonomic ayush ropathy G90.9 and Postural hypotension I95.1 [facility] [address] [facility] [id number] [address] [place] [phone] Jun, [facility] [address] [place] [id number] [address] [place] [phone] May, Type 1 diabetes mellitus wit h complications E10.8 and Anemia D64.9 [facility] [address] [facility] [id number] [address] [place] [id number] May, Low back pain M54.5 [facility] [address] [facility] [id number] [address] [place] [phone] Apr, [facility] [address] [facility] [id number] [address] [place] [phone] Apr, Low back pain M54.5 [facility] [address] [place] [id number] [address] [place] [phone] Apr, [facility] [address] [facility] [id number] [address] [place] [phone] Apr, [facility] [address] [facility] [id number] [address] [place] [phone] March, Low back pain M54.5 and Othe r chronic pain G89.29 [facility] [address] [facility] [id number] [address] [place] [phone] March, Type 1 diabetes mellitus wit hout complications E10.9 [facility] [address] [facility] [id number] [address] [place] [phone] March, [facility] [address] [facility] [id number] [address] [place] [phone] March, [facility] [address] [facility] [id number] [address] [place] [phone] Feb, [facility] [address] [facility] [id number] [address] [place] [id number] Feb, Type 1 diabetes mellitus wit hout complications E10.9 [facility] [address] [facility] [id number] [address] [place] [phone] Feb, Trochanteric bursitis, right hip M70.61 [facility] [address] [facility] [id number] [address] [place] [phone] Jan, [facility] [address] [facility] [id number] [address] [place] [phone] Jan, [facility] [address] [facility] [id number] [address] [place] [id number] Dec, Type 1 diabetes mellitus wit h complications E10.8 [facility] [address] [facility] [id number] [address] [place] [phone] Dec, [facility] [address] [place] [id number] [address] [place] [id number] Dec, Anemia D64.9 ; Autonomic ayush ropathy G90.9 and Postural hypotension I95.1 [facility] [address] [facility] [id number] [address] [place] [phone] Dec, [facility] [address] [facility] [id number] [address] [place] [phone] Nov, Sore throat J02.9 [facility] [address] [facility] [id number] [address] [place] [phone] Nov, Type 1 diabetes mellitus wit h complications E10.8 [facility] [address] [facility] [id number] [address] [place] [id number] Nov, Type 1 diabetes mellitus wit h diabetic nephropathy E10.21 ; Proteinuria, unspecified R80.9 and Chronic kidney disease, unspecified N18.9 [facility] [address] [place] [id number] [address] [place] [phone] Nov, [place] [address] [id number] Nov, Trochanteric bursitis, right hip M70.61 [facility] [address] [place] [id number] [address] [place] [phone] Nov, [facility] [address] [place] [id number] [address] [place] [phone] Oct, [facility] [address] [place] [id number] [address] [place] [phone] Oct, [facility] [id number] [place] [phone] Oct, [facility] [address] [place] [id number] [address] [place] [phone] Sep, [facility] [address] [facility] [id number] [address] [place] [phone] Sep, [facility] [address] [place] [id number] [address] [place] [id number] Sep, Type 2 diabetes mellitus wit h complication E11.8 and Right hip pain M25.551 [facility] [address] [place] [id number] [address] [place] [phone] Sep, [facility] [address] [id number] [address] [place] [phone] Aug, [facility] [address] [id number] [address] [place] [phone] Aug, [facility] [address] [id number] [address] [place] [phone] Aug, [facility] [address] [id number] [address] [place] [id number] Aug, Type 1 diabetes mellitus wit hout complications E10.9 [facility] [address] [id number] [address] [place] [id number] 16 Jul, 2015 [facility] [address] [id number] [address] [place] [phone] 15 Jul, 2015 [facility] [address] [id number] [address] [place] [phone] Jul, [facility] [address] [id number] [address] [place] [phone] Jun, [facility] [address] [id number] [address] [place] [phone] Jun, [facility] [address] [id number] [address] [place] [phone] Jun, [facility] [address] [id number] [address] [place] [phone] Jun, [facility] [address] [id number] [address] [place] [phone] Jun, [facility] [address] [id number] [address] [place] [phone] Jun, Diabetes mellitus without me ntion of complication, type I [juvenile type], not stated as uncontrolled 250.01 [facility] [address] [id number] [address] [place] [phone] May, [facility] [address] [id number] [address] [place] [phone] May, [facility] [address] [id number] [address] [place] [phone] May, [facility] [address] [id number] [address] [place] [phone] May, Autonomic neuropathy 337.9 ; Postural hypotension 458.0 and Anemia 285.9 [facility] [address] [id number] [address] [place] [phone] May, [facility] [address] [id number] [address] [place] [phone] Apr, [facility] [address] [id number] [address] [place] [id number] Apr, [facility] [address] [id number] [address] [place] [phone] Apr, [facility] [address] [id number] [address] [place] [phone] Apr, [facility] [address] [id number] [address] [place] [phone] Apr, [facility] [address] [id number] [address] [place] [phone] March, [facility] [address] [id number] [address] [place] [phone] March, [facility] [address] [id number] [address] [place] [phone] March, [facility] [address] [id number] [address] [place] [phone] March, [facility] [address] [id number] [address] [place] [phone] March, [facility] [address] [id number] [address] [place] [phone] Feb, [facility] [address] [id number] [address] [place] [address], [place] [id number] 14 Feb, 2015 [facility] [address] [id number] [address] [place] [address], [place] [id number] 13 Feb, 2015 [facility] [address] [id number] [address] [place] [address], [place] [id number] 30 Jan, 2015 [facility] [address] [id number] [address] [place] [address], [place] [id number] 24 Jan, 2015 [facility] [address] [id number] [address] [place] [address], [place] [id number] 24 Jan, 2015 [facility] [address] [id number] [address] [place] [address], [place] [id number] 20 Jan, 2015 [facility] [address] [id number] [address] [place] [address], [place] [address] Jan, [facility] [address] [id number] [address] [place] [address], [place] [address] Jan, [facility] [address] [id number] [address] [place] [address], [place] [address] Jan, [facility] [address] [id number] [address] [place] [address], [place] [id number] 04 Jan, 2015 [facility] [address] [id number] [address] [place] [address], [place] [address] Jan, [facility] [address] [id number] [address] [place] [address], [place] [id number] Jan, [facility] [address] [id number] [address] [place] [address], [place] [address] Jan, [facility] [address] [id number] [address] [place] [address], [place] [id number] Jan, [facility] [address] [id number] [address] [place] [address], [place] [address] Jan, [facility] [address] [id number] [address] [place] [address], [place] [address] Dec, [facility] [address] [id number] [address] [place] [address], [place] [address] Dec, [facility] [address] [id number] [address] [place] [address], [place] [address] Dec, [facility] [address] [id number] [address] [place] [address], [place] [address] Dec, [facility] [address] [id number] [address] [place] [address], [place] [address] Dec, 2014 [facility] [address] [id number] [address] [place] [address], [place] [address] Dec, [facility] [address] [id number] [address] [place] [address], [place] [id number] Dec, [facility] [address] [id number] [address] [place] [address], [place] [address] Dec, [facility] [address] [id number] [address] [place] [address], [place] [address] Nov, [facility] [address] [id number] [address] [place] [address], [place] [address] Nov, [facility] [address] [id number] [address] [place] [address], [place] [id number] Nov, [facility] [address] [id number] [address] [place] [address], [place] [address] Nov, [facility] [address] [id number] [address] [place] [address], [place] [address] Nov, [facility] [address] [id number] [address] [place] [address], [place] [address] Nov, [facility] [address] [id number] [address] [place] [address], [place] [address] Nov, [facility] [address] [id number] [address] [place] [address], [place] [address] Nov, [facility] [address] [id number] [address] [place] [address], [place] [address] Nov, [facility] [address] [id number] [address] [place] [address], [place] [address] Oct, [facility] [address] [id number] [address] [place] [address], [place] [address] Oct, [facility] [address] [id number] [address] [place] [address], [place] [address] Oct, [facility] [address] [id number] [address] [place] [address], [place] [address] Oct, [facility] [address] [id number] [address] [place] [address], [place] [address] Oct, [facility] [address] [id number] [address] [place] [address], [place] [address] Oct, [facility] [address] [id number] [address] [place] [address], [place] [address] Oct, [facility] [address] [id number] [address] [place] [address], [place] [address] Oct, [facility] [address] [id number] [address] [place] [address], [place] [address] Oct, [facility] [address] [id number] [address] [place] [address], [place] [address] Oct, [facility] [address] [id number] [address] [place] [address], [place] [address] Oct, [facility] [address] [id number] [address] [place] [address], [place] [address] Oct, [facility] [address] [id number] [address] [place] [address], [place] [address] Oct, [facility] [address] [id number] [address] [place] [address], [place] [address] Oct, [facility] [address] [id number] [address] [place] [address], [place] [address] Sep, [facility] [address] [id number] [address] [place] [address], [place] [address] Sep, [facility] [address] [id number] [address] [place] [address], [place] [address] Sep, [facility] [address] [id number] [address] [place] [address], [place] [address] Sep, [facility] [address] [id number] [address] [place] [address], [place] [address] Aug, [facility] [address] [id number] [address] [place] [address], [place] [address] Aug, [facility] [address] [id number] [address] [place] [address], [place] [address] Aug, [facility] [address] [id number] [address] [place] [address], [place] [address] Aug, [facility] [address] [id number] [address] [place] [address], [place] [id number] Aug, [facility] [address] [id number] [address] [place] [address], [place] [address] Aug, [facility] [address] [id number] [address] [place] [id number] Aug, [facility] [address] [id number] [address] [place] [id number] Aug, [facility] [address] [id number] [address] [place] [id number] Aug, [facility] [address] [id number] [address] [place] [id number] Aug, [facility] [address] [id number] [address] [place] [id number] Jul, [facility] [address] [id number] [address] [place] [id number] Jul, [facility] [address] [id number] [address] [place] [id number] 29 Sep, 2013 [facility] [address] [id number] [address] [place] [address], [place] [id number] 29 Sep, 2013 [facility] [address] [id number] [address] [place] [address], [place] [id number] 22 Sep, 2013 [facility] [address] [id number] [address] [place] [address], [place] [address] 22 Sep, 2013 [facility] [address] [id number] [address] [place] [address], [place] [id number] 19 Sep, 2013 [facility] [address] [id number] [address] [place] [address], [place] [id number] 19 Sep, 2013 [facility] [address] [id number] [address] [place] [address], [place] [address] 11 Jul, 2013 [facility] [address] [id number] [address] [place] [address], [place] [address] 11 Jul, 2013 [facility] [address] [id number] [address] [place] [address], [place] [id number] 10 Jul, 2013 [facility] [address] [id number] [address] [place] [address], [place] [address] 10 Jul, 2013 [facility] [address] [id number] [address] [place] [address], [place] [id number] 08 Sep, 2013 [facility] [address] [id number] [address] [place] [address], [place] [address] 08 Sep, 2013 [facility] [address] [id number] [address] [place] [address], [place] [address] 03 Sep, 2013 [facility] [address] [id number] [address] [place] [address], [place] [address] 03 Sep, 2013 [facility] [address] [id number] [address] [place] [address], [place] [id number] 02 Sep, 2013 [facility] [address] [id number] [address] [place] [address], [place] [address] 02 Sep, 2013 [facility] [address] [id number] [facility] [place] [address] Jun, [facility] [address] [id number] [facility] [place] [address] Jun, [facility] [address] [id number] [facility] [place] [address] Jun, [facility] [address] [id number] [facility] [place] [address] Jun, [facility] [address] [id number] [facility] [place] [address] Jun, [facility] [address] [id number] [address] [place] [address], [place] [address] Jun, [facility] [address] [id number] [address] [place] [address], [place] [address] Jun, [facility] [address] [id number] [address] [place] [address], [place] [address] Jun, [facility] [address] [id number] [address] [place] [address], [place] [address] Jun, [facility] [address] [id number] [address] [place] [address], [place] [address] Jun, [facility] [address] [id number] [address] [place] [address], [place] [address] Jun, [facility] [address] [id number] [address] [place] [address], [place] [address] Jun, [facility] [address] [id number] [address] [place] [address], [place] [address] Jun, [facility] [address] [id number] [address] [place] [address], [place] [address] Jun, [facility] [address] [id number] [address] [place] [address], [place] [address] Jun, [facility] [address] [id number] [address] [place] [address], [place] [address] May, [facility] [address] [id number] [address] [place] [address] May, [facility] [address] [id number] [address] [place] [address], [place] [address] May, [facility] [address] [id number] [address] [place] [address], [place] [address] May, [facility] [address] [id number] [address] [place] [address], [place] [address] May, [facility] [address] [id number] [address] [place] [address], [place] [address] May, [facility] [address] [id number] [address] [place] [address], [place] [address] May, [facility] [address] [id number] [address] [place] [address], [place] [address] May, [facility] [address] [id number] [address] [place] [address], [place] [address] Apr, [facility] [address] [id number] [address] [place] [address], [place] [address] Apr, [facility] [address] [id number] [address] [place] [address], [place] [address] Apr, [facility] [address] [id number] [address] [place] [address], [place] [address] Apr, [facility] [address] [id number] [address] [place] [address], [place] [address] Apr, [facility] [address] [id number] [address] [place] [address], [place] [address] Apr, [facility] [address] [id number] [address] [place] [address], [place] [address] Apr, [facility] [address] [id number] [address] [place] [address], [place] [address] Apr, [facility] [address] [id number] [address] [place] [address], [place] [address] Apr, [facility] [address] [id number] [facility] [place] [address] Apr, [facility] [address] [id number] [address] [place] [address], [place] [address] Apr, [facility] [address] [id number] [address] [place] [address], [place] [address] Apr, [facility] [address] [id number] [address] [place] [address], [place] [address] Apr, [facility] [address] [id number] [address] [place] [address], [place] [address] Apr, [facility] [address] [id number] [address] [place] [address], [place] [address] Apr, [facility] [address] [id number] [address] [place] [address], [place] [address] Apr, [facility] [address] [id number] [address] [place] [address], [place] [address] Apr, [facility] [address] [id number] [address] [place] [address], [place] [address] Apr, [facility] [address] [id number] [address] [place] [address], [place] [address] March, [facility] [address] [id number] [address] [place] [address], [place] [address] March, [facility] [address] [id number] [address] [place] [address], [place] [address] March, [facility] [address] [id number] [address] [place] [address], [place] [address] March, [facility] [address] [id number] [address] [place] [address], [place] [address] March, [facility] [address] [id number] [address] [place] [address], [place] [address] March, [facility] [address] [id number] [address] [place] [address], [place] [address] March, [facility] [address] [id number] [address] [place] [address], [place] [address] March, [facility] [address] [id number] [address] [place] [address], [place] [address] March, [facility] [address] [id number] [address] [place] [address], [place] [address] Feb, [facility] [address] [id number] [address] [place] [address], [place] [address] Feb, [facility] [address] [id number] [address] [place] [address], [place] [address] Feb, [facility] [address] [id number] [address] [place] [address], [place] [address] Feb, [facility] [address] [id number] [address] [place] [address], [place] [address] Feb, [facility] [address] [id number] [address] [place] [address], [place] [address] Feb, [facility] [address] [id number] [address] [place] [address], [place] [address] Feb, [facility] [address] [id number] [address] [place] [address], [place] [address] Feb, [facility] [address] [id number] [address] [place] [place] [address], [place] [address] Feb, [facility] [address] [id number] [address] [place] [address], [place] [address] Feb, [facility] [address] [id number] [address] [place] [address], [place] [address] Feb, [facility] [address] [id number] [address] [place] [address], [place] [address] Feb, [facility] [address] [id number] [address] [place] [address], [place] [address] Feb, [facility] [address] [id number] [address] [place] [address], [place] [address] Jan, [facility] [address] [id number] [address] [place] [address], [place] [address] Jan, [facility] [address] [id number] [address] [place] [address], [place] [address] Jan, [facility] [address] [id number] [address] [place] [address], [place] [address] Jan, [facility] [address] [id number] [address] [place] [address], [place] [address] Jan, [facility] [address] [id number] [address] [place] [address], [place] [address] Jan, [facility] [address] [id number] [address] [place] [address], [place] [address] Jan, [facility] [address] [id number] [address] [place] [address], [place] [address] Jan, [facility] [address] [id number] [address] [place] [address], [place] [address] Dec, [facility] [address] [id number] [address] [place] [address], [place] [address] Dec, [facility] [address] [id number] [address] [place] [address], [place] [address] Dec, [facility] [address] [id number] [address] [place] [address], [place] [address] Dec, [facility] [address] [id number] [address] [place] [address], [place] [address] Dec, [facility] [address] [id number] [address] [place] [address], [place] [address] Dec, [facility] [address] [id number] [address] [place] [address], [place] [address] Dec, [facility] [address] [id number] [address] [place] [address], [place] [address] Dec, [facility] [address] [id number] [address] [place] [address], [place] [address] Dec, [facility] [address] [id number] [address] [place] [address], [place] [address] Dec, [facility] [address] [id number] [address] [place] [address], [place] [address] Nov, [facility] [address] [id number] [address] [place] [address], [place] [address] Nov, [facility] [address] [id number] [address] [place] [address], [place] [address] Nov, [facility] [address] [id number] [address] [place] [address], [place] [address] Nov, [facility] [address] [id number] [address] [place] [address], [place] [address] Nov, [facility] [address] [id number] [address] [place] [address], [place] [address] Nov, [facility] [address] [id number] [address] [place] [address], [place] [address] Nov, [facility] [address] [id number] [address] [place] [address], [place] [address] Nov, [facility] [address] [id number] [address] [place] [address], [place] [address] Nov, [facility] [address] [id number] [address] [place] [address], [place] [address] Nov, [facility] [address] [id number] [address] [place] [address], [place] [address] Oct, [facility] [address] [id number] [address] [place] [address], [place] [address] Oct, [facility] [address] [id number] [address] [place] [address], [place] [address] 18 Oct, 2013 [facility] [address] [id number] [address] [place] [address], [place] [id number] 18 Oct, 2013 [facility] [address] [id number] [address] [place] [address], [place] [address] 17 Oct, 2013 [facility] [address] [id number] [address] [place] [address], [place] [address] 17 Oct, 2013 [facility] [address] [id number] [address] [place] [address], [place] [address] 16 Oct, 2013 [facility] [address] [id number] [address] [place] [address], [place] [address] 16 Oct, 2013 [facility] [address] [id number] [address] [place] [address], [place] [address] 11 Oct, 2013 [facility] [address] [id number] [address] [place] [address], [place] [address] Oct, [facility] [address] [id number] [address] [place] [address], [place] [address] 04 Oct, 2013 [facility] [address] [id number] [address] [place] [address], [place] [address] 04 Oct, 2013 [facility] [address] [id number] [address] [place] [address], [place] [address] 04 Oct, 2013 [facility] [address] [id number] [address] [place] [address], [place] [address] 04 Oct, 2013 [facility] [address] [id number] [address] [place] [address], [place] [address] Sep, [facility] [address] [id number] [address] [place] [address], [place] [address] Sep, [facility] [address] [id number] [address] [place] [address], [place] [address] Sep, [facility] [address] [id number] [address] [place] [address], [place] [address] Sep, [facility] [address] [id number] [address] [place] [address], [place] [address] Sep, [facility] [address] [id number] [address] [place] [address], [place] [address] Sep, [facility] [address] [id number] [address] [place] [address], [place] [address] 31 Aug, 2013 [facility] [address] [id number] [address] [place] [address], [place] [address] 31 Aug, 2013 [facility] [address] [id number] [address] [place] [address], [place] [address] 17 Aug, 2013 [facility] [address] [id number] [address] [place] [address], [place] [address] 17 Aug, 2013 [facility] [address] [id number] [address] [place] [address], [place] [address] 10 Aug, 2013 [facility] [address] [id number] [address] [place] [address], [place] [address] 10 Aug, 2013 [facility] [address] [id number] [address] [place] [address], [place] [address] 07 Aug, 2013 [facility] [address] [id number] [address] [place] [address], [place] [address] 02 Aug, 2013 [facility] [address] [id number] [address] [place] [address], [place] [address] 02 Aug, 2013 [facility] [address] [id number] [address] [place] [address], [place] [address] 25 Jul, 2012 [facility] [address] [id number] [address] [place] [address], [place] [address] 23 Sep, 2012 [facility] [address] [id number] [address] [place] [address], [place] [address] 21 Jul, 2012 [facility] [address] [id number] [address] [place] [address], [place] [address] 20 Sep, 2012 [facility] [address] [id number] [address] [place] [address], [place] [address] 18 Jul, 2012 [facility] [address] [id number] [address] [place] [address], [place] [address] 17 Jul, 2012 [facility] [address] [id number] [address] [place] [address], [place] [address] 16 Jul, 2012 [facility] [address] [id number] [address] [place] [address], [place] [address] 11 Jul, 2012 [facility] [address] [id number] [address] [place] [address], [place] [address] 09 Jul, 2012 [facility] [address] [id number] [address] [place] [address], [place] [address] 09 Jul, 2012 [facility] [address] [id number] [address] [place] [address], [place] [address] 06 Jul, 2012 [facility] [address] [id number] [address] [place] [address], [place] [address] 03 Jul, 2012 [facility] [address] [id number] [address] [place] [address], [place] [address] Jun, [facility] [address] [id number] [address] [place] [address], [place] [address] Jun, [facility] [address] [id number] [address] [place] [address], [place] [address] Jun, [facility] [address] [id number] [address] [place] [address], [place] [address] Jun, [facility] [address] [id number] [address] [place] [address], [place] [address] Jun, [facility] [address] [id number] [address] [place] [address], [place] [address] Jun, [facility] [address] [id number] [address] [place] [address], [place] [address] Jun, [facility] [address] [id number] [address] [place] [address], [place] [address] Jun, [facility] [address] [id number] [address] [place] [address], [place] [address] Jun, [facility] [address] [id number] [address] [place] [address], [place] [address] May, [facility] [address] [id number] [address] [place] [address], [place] [address] May, [facility] [address] [id number] [address] [place] [address], [place] [address] May, [facility] [address] [id number] [address] [place] [address], [place] [address] May, [facility] [address] [id number] [address] [place] [address], [place] [address] May, [facility] [address] [id number] [address] [place] [address], [place] [address] May, [facility] [address] [id number] [address] [place] [address], [place] [address] May, [facility] [address] [id number] [address] [place] [address], [place] [address] March, [facility] [address] [id number] [address] [place] [address], [place] [address] March, [facility] [address] [id number] [address] [place] [address], [place] [address] March, [facility] [address] [id number] [address] [place] [address], [place] [address] Dec, [facility] [address] [id number] [address] [place] [address], [place] [address] Nov, [facility] [address] [id number] [address] [place] [address], [place] [address] Aug, [facility] [address] [id number] [address] [place] [address], [place] [address] Aug, [facility] [address] [id number] [address] [place] [address], [place] [address] Jun, [facility] [address] [id number] [address] [place] [address], [place] [address] Jun, [facility] [address] [id number] [address] [place] [address], [place] [address] Jun, [facility] [address] [id number] [address] [place] [address], [place] [address] Jun, [facility] [address] [id number] [address] [place] [address], [place] [address] May, [facility] [address] [id number] [address] [place] [address], [place] [address] May, [facility] [address] [id number] [address] [place] [address], [place] [address] May, [facility] [address] [id number] [address] [place] [address], [place] [address] May, [facility] [address] [id number] [address] [place] [address], [place] [address] May, [facility] [address] [id number] [address] [place] [address], [place] [address] May, [facility] [address] [id number] [address] [place] [address], [place] [address] May, [facility] [address] [id number] [address] [place] [address], [place] [address] Apr, [facility] [address] [id number] [address] [place] [address], [place] [address] Apr, [facility] [address] [id number] [address] [place] [address], [place] [address] Apr, [facility] [address] [id number] [address] [place] [address], [place] [address] Apr, [facility] [address] [id number] [address] [place] [address], [place] [address] March, [facility] [address] [id number] [address] [place] [address], [place] [address] March, [facility] [address] [id number] [address] [place] [address], [place] [address] March, [facility] [address] [id number] [address] [place] [address], [place] [address] March, [facility] [address] [id number] [address] [place] [address], [place] [address] March, [facility] [address] [id number] [address] [place] [address], [place] [address] March, [facility] [address] [id number] [address] [place] [address], [place] [address] March, [facility] [address] [id number] [address] [place] [address], [place] [address] March, [facility] [address] [id number] [address] [place] [address], [place] [address] March, [facility] [address] [id number] [address] [place] [address], [place] [address] Feb, [facility] [address] [id number] [address] [place] [address], [place] [address] Feb, [facility] [address] [id number] [address] [place] [address], [place] [address] Jan, [facility] [address] [id number] [address] [place] [address], [place] [address] Jan, [facility] [address] [id number] [address] [place] [address], [place] [address] Jan, [facility] [address] [id number] [address] [place] [address], [place] [address] 05 Jan, 2012 [facility] [address] [id number] [address] [place] [address], [place] [address] Dec, [facility] [address] [id number] [address] [place] [address], [place] [address] Dec, [facility] [address] [id number] [address] [place] [address], [place] [id number] 15 Dec, 2011 [facility] [address] [id number] [address] [place] [address], [place] [address] Nov, [facility] [address] [id number] [address] [place] [address], [place] [address] 19 Oct, 2011 [facility] [address] [id number] [address] [place] [address], [place] [address] 15 Oct, 2011 [facility] [address] [id number] [address] [place] [address], [place] [address] 15 Oct, 2011 [facility] [address] [id number] [address] [place] [address], [place] [address] 14 Oct, 2011 [facility] [address] [id number] [address] [place] [address], [place] [address] 14 Oct, 2011 [facility] [address] [id number] [address] [place] [address], [place] [address] Oct, [facility] [address] [id number] [address] [place] [address], [place] [address] Oct, [facility] [address] [id number] [address] [place] [address], [place] [address] Oct, [facility] [address] [id number] [address] [place] [address], [place] [address] Sep, [facility] [address] [id number] [address] [place] [address], [place] [address] 17 Sep, 2011 [facility] [address] [id number] [address] [place] [address], [place] [address] 14 Sep, 2011 [facility] [address] [id number] [address] [place] [address], [place] [address] 10 Sep, 2011 [facility] [address] [id number] [address] [place] [address], [place] [address] 10 Sep, 2011 [facility] [address] [id number] [address] [place] [address], [place] [address] Sep, [facility] [address] [id number] [address] [place] [id number] Sep, [facility] [address] [id number] [address] [place] [id number] Sep, [facility] [address] [id number] [address] [place] [id number] Sep, [facility] [address] [id number] [address] [place] [id number] Aug, [facility] [address] [id number] [address] [place] [id number] Jul, [facility] [address] [facility] [id number] [address] [place] [id number] Oct, [facility] [address] [facility] [id number] [address] [place] [id number] Oct, [facility] [address] [facility] [id number] [address] [place] [id number] Oct, IMMUNIZATIONS No Known Immunizations SOCIAL HISTORY [...]
--- OUTSIDE RECORDS SUMMARY | 2020-03-19 05:52 | XMS REPORT ---
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 76136607 Problem Chronic kidney disease, unspecified N18.9 Active 245943032 Problem Anemia, unspecified D64.9 Active 758191613 Problem Irritable bowel K58.9 Active 1074 3008 Problem Type 1 diabetes mellitus without complications E10 .9 Active 208891794 Problem Migraine G43.909 Active 49744860 Problem Irritable bowel syndrome with diarrhea K58.0 Active 912348314 Problem Peritoneal dialysis status Z99.2 Act moody 017299632 Problem Essential hypertension I10 Active 33348912 Problem Intractable migraine without aura and with status migr ainosus G43.011 Active 260477083 Problem Type 1 diabetes mellitus with hypoglycemia without coma E10.649 Active 79752098 Problem Type 1 diabetes mellitus with hyperglycemia E10.65 Active 50506436 Problem Dysthymia F34.1 Active 60197994 Problem Chronic kidney disease, stage 4 (severe) N18.4 Active 800294389 Problem Migraine with aura and without status migrainosu s, not intractable G43.109 Active 5315824 Problem Autonomic neuropathy G90.9 Active 792160257 Problem Type 1 diabetes mellitus with complications E10.8 Active 805003810 Problem Menorrhagia with regular cycle N92.0 Active 253283572 Problem Lymphedema I89.0 Active 860057646 Problem Claudication I73.9 Active 0869129 6 Problem Other chronic pain G89.29 Active 8 8474880 Problem Diastolic dysfunction I51.89 Active 4927061 Problem ESRF (end stage renal failure) N18.6 Active 39970062 Problem 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 Active 751307694 Problem Migraine without aura and without status migrain osus, not intractable G43.009 Active 053162394 Problem Type 1 diabetes mellitus with foot ulcer E10.621 Active 36522572090774475 Problem Low back pain M54.5 Active 554195 009 Problem Other insomnia G47.09 Active 60356 2000 Problem Restless legs G25.81 Active 181167 08 Problem Hyperthyroidism E05.90 Active 3448 6009 Problem Moderate episode of recurrent major depressive disorder F33.1 Active 244538812 Problem Primary insomnia F51.01 Active 397 2004 ALLERGIES No Information ENCOUNTERS Encounter Location Date Diagnosis [facility] [address] [id number] 15 Apr, 2020 [place] [address] [address] 13 Feb, 2020 Irritable bowel syndrome wit h diarrhea K58.0 [facility] [address] [place] [id number] [place] [id number] 13 Feb, 2020 Irritable bowel syndrome wit h diarrhea K58.0 [facility] [address] [place] [id number] [address] [place] [phone] 13 Feb, 2020 [facility] [address] [place] [id number] [place] [id number] 28 Jan, 2020 Type 1 diabetes mellitus wit h foot ulcer E10.621 and Non-pressure chronic ulcer of other part of right foot limited to breakdown of skin L97.511 [facility] [address] [place] [id number] [place] [phone] 23 Jan, 2020 Type 1 diabetes mellitus wit h diabetic nephropathy E10.21 [facility] [address] [place] [id number] [place] [id number] 20 Jan, 2020 [facility] [address] [place] [id number] [place] [id number] 16 Jan, 2020 Migraine without aura and wi thout status migrainosus, not intractable G43.009 and Type 1 diabetes mellitus with hypoglycemia without coma E10.649 [facility] [address] [place] [id number] [place] [address] Jan, [facility] [address] [place] [id number] [place] [phone] 10 Jan, 2020 Type 1 diabetes mellitus wit h hyperglycemia E10.65 ; Orthostatic hypotension I95.1 and Restless legs G25.81 [facility] [address] [facility] [id number] [address] [place] [id number] 06 Dec, 2019 Caries K02.9 and Dental exam ination Z01.20 [facility] [address] [place] [id number] [address] [place] [phone] 30 Oct, 2019 Restless legs G25.81 [place] [address] [place] [id number] [place] [id number] 16 Oct, 2019 Encounter for Medicare annua l wellness exam Z00.00 ; 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 ; Migraine without aura and without status migrainosus, not intractable G43.009 ; Chronic kidney disease, stage 4 (severe) N18.4 ; Claudication I73.9 ; Peritoneal dialysis status Z99.2 ; Diastolic dysfunction I51.89 ; Primary insomnia F51.01 and Burn T30.0 [facility] [address] [place] [id number] [place] [phone] Sep, Moderate episode of recurren t major depressive disorder F33.1 and Primary insomnia F51.01 [facility] [address] [place] [id number] [place] [address] Aug, Hyperthyroidism E05.90 [facility] [address] [place] [id number] [address] [place] [address] May, Restless legs G25.81 [facility] [address] [place] [id number] [place] [id number] May, [facility] [address] [place] [id number] [address] [place] [address] May, [facility] [address] [id number] [address] [place] [id number] May, Type 1 diabetes mellitus wit h hypoglycemia without coma E10.649 ; ESRF (end stage renal failure) N18.6 ; Leg cramps R25.2 ; Restless legs G25.81 and Low back pain M54.5 [facility] [address] [id number] [address] [place] [address] Apr, Low back pain M54.5 [facility] [address] [id number] [address] [place] [id number] Apr, [facility] [address] [id number] [address] [place] [phone] March, Low back pain M54.5 [facility] [address] [id number] [address] [place] [phone] March, [facility] [address] [id number] [address] [place] [address] Feb, Low back pain M54.5 [facility] [address] [id number] [address] [place] [phone] Jan, Low back pain M54.5 [facility] [address] [id number] [address] [place] [phone] Jan, [facility] [address] [id number] [address] [place] [phone] Jan, [facility] [address] [id number] [address] [place] [id number] Jan, [facility] [address] [id number] [address] [place] [address] Dec, Type 1 diabetes mellitus wit h hypoglycemia without coma E10.649 and Low back pain M54.5 [facility] [address] [id number] [address] [place] [address] Dec, Low back pain M54.5 [facility] [address] [id number] [address] [place] [address] 13 Dec, 2018 Diastolic dysfunction I51.89 ; Essential hypertension I10 and Chronic kidney disease, stage 4 (severe) N18.4 [place] [address] [place] [id number] [place] [phone] 11 Dec, 2018 RUQ abdominal pain R10.11 ; Type 1 diabetes mellitus without complications E10.9 ; Therapeutic drug monitoring Z51.81 ; Migraine with aura and without status migrainosus, not intractable G43.109 and Intractable migraine without aura and with status migrainosus G43.011 [place] [address] [place] [id number] [place] [phone] Nov, Low back pain M54.5 [place] [address] [place] [id number] [place] [phone] Nov, [place] [address] [place] [id number] [place] [address] Nov, Intractable migraine without aura and with status migrainosus G43.011 ; Lymphedema I89.0 ; Pain in right shoulder M25.511 ; Other chronic pain G89.29 ; Irritable bowel syndrome with diarrhea K58.0 ; Type 1 diabetes mellitus without complications E10.9 and Essential hypertension I10 [place] [address] [place] [id number] [place] [address] Oct, Low back pain M54.5 [place] [address] [place] [id number] [place] [address] Oct, [place] [address] [place] [id number] [place] [address] Oct, Orthostatic hypotension I95. 1 ; Shortness of breath R06.02 ; Leg swelling M79.89 ; Type 1 diabetes mellitus without complications E10.9 and Claudication I73.9 [place] [address] [place] [id number] [place] [phone] Sep, Low back pain M54.5 [place] [address] [id number] [address] [place] [address] Sep, Low back pain M54.5 [facility] [address] [facility] [id number] [address] [place] [address] Aug, [facility] [address] [facility] [id number] [address] [place] [address] Aug, Migraine without aura and wi thout status migrainosus, not intractable G43.009 [facility] [address] [id number] [address] [place] [address] Aug, Low back pain M54.5 [facility] [address] [facility] [id number] [address] [place] [address] Aug, Acute rhinosinusitis J01.90 and Sore throat J02.9 [facility] [address] [facility] [id number] [address] [place] [address] Jul, Low back pain M54.5 [facility] [address] [facility] [id number] [address] [place] [address] Jul, Migraine without aura and wi thout status migrainosus, not intractable G43.009 [facility] [address] [facility] [id number] [address] [place] [address] Jun, Low back pain M54.5 [facility] [address] [facility] [id number] [address] [place] [phone] Jun, [facility] [address] [facility] [id number] [address] [place] [address] Jun, Orthostatic hypotension I95. 1 ; Shortness of breath R06.02 ; Type 1 diabetes mellitus without complications E10.9 and Leg swelling M79.89 [facility] [address] [facility] [id number] [address] [place] [address] Jun, Low back pain M54.5 [facility] [address] [facility] [id number] [address] [place] [id number] Jun, [facility] [address] [facility] [id number] [address] [place] [address] May, Migraine without aura and wi thout status migrainosus, not intractable G43.009 [facility] [address] [facility] [id number] [address] [place] [address] May, Migraine without aura and wi thout status migrainosus, not intractable G43.009 ; Restless legs syndrome G25.81 ; Leg cramps R25.2 ; Chronic kidney disease, unspecified N18.9 ; Postural hypotension I95.1 ; Diarrhea, unspecified type R19.7 and Cough R05 [facility] [address] [facility] [id number] [address] [place] [phone] May, [facility] [address] [facility] [id number] [address] [place] [address] May, [facility] [address] [place] [id number] [place] [address] May, Orthostatic hypotension I95. 1 ; Shortness of breath R06.02 ; Type 1 diabetes mellitus with complications E10.8 and Leg swelling M79.89 [facility] [address] [place] [id number] [place] [address] May, [facility] [address] [place] [id number] [place] [address] May, Low back pain M54.5 [facility] [address] [place] [id number] [place] [address] Apr, Type 1 diabetes mellitus wit h hyperglycemia E10.65 [facility] [address] [facility] [id number] [address] [place] [address] Apr, Low back pain M54.5 [facility] [address] [facility] [id number] [address] [place] [address] Apr, [facility] [address] [place] [id number] [place] [address] Apr, [facility] [address] [facility] [id number] [address] [place] [id number] March, [facility] [address] [facility] [id number] [address] [place] [id number] March, Low back pain M54.5 [facility] [address] [facility] [id number] [address] [place] [phone] March, [facility] [address] [facility] [id number] [address] [place] [address] Feb, [facility] [address] [facility] [id number] [address] [place] [address] Feb, Low back pain M54.5 [facility] [address] [facility] [id number] [address] [place] [address] Jan, Restless legs syndrome G25.8 1 [facility] [address] [place] [id number] [place] [address] Jan, Low back pain M54.5 [facility] [address] [facility] [id number] [address] [place] [id number] Jan, [facility] [address] [facility] [id number] [address] [place] [address] Jan, Type 1 diabetes mellitus wit hout complications E10.9 ; Low back pain M54.5 ; Cough R05 ; Diarrhea, unspecified type R19.7 ; Migraine without aura and without status migrainosus, not intractable G43.009 and Uses control Z30.9 [facility] [address] [facility] [id number] [address] [place] [address] Dec, Low back pain M54.5 [facility] [address] [facility] [id number] [address] [place] [address] Dec, [facility] [address] [facility] [id number] [address] [place] [address] Nov, Well woman exam Z01.419 ; Me norrhagia with regular cycle N92.0 ; Vaginal dryness N89.8 and Migraine with aura and without status migrainosus, not intractable G43.109 [facility] [address] [facility] [id number] [address] [place] [address] Nov, [facility] [address] [facility] [id number] [address] [place] [address] Nov, Low back pain M54.5 [facility] [address] [place] [id number] [address] [place] [address] Oct, Low back pain M54.5 [facility] [address] [place] [id number] [place] [address] Oct, Migraine without aura and wi thout status migrainosus, not intractable G43.009 [facility] [address] [place] [id number] [address] [place] [address] Sep, Low back pain M54.5 [facility] [address] [place] [id number] [place] [address] Sep, [facility] [address] [place] [id number] [place] [address] Sep, Migraine without aura and wi thout status migrainosus, not intractable G43.009 [facility] [address] [place] [id number] [place] [address] Sep, Type 1 diabetes mellitus wit h hypoglycemia without coma E10.649 ; Anemia D64.9 ; Migraine without aura and without status migrainosus, not intractable G43.009 ; Chronic kidney disease, unspecified N18.9 ; Autonomic neuropathy G90.9 and Postural hypotension I95.1 [facility] [address] [facility] [id number] [address] [place] [address] Sep, Low back pain M54.5 [facility] [address] [place] [id number] [place] [address] Aug, Low back pain M54.5 [facility] [address] [place] [id number] [place] [address] 14 Jul, 2017 [facility] [address] [facility] [id number] [address] [place] [address] Jul, Low back pain M54.5 [facility] [address] [facility] [id number] [address] [place] [id number] Jun, [facility] [address] [facility] [id number] [address] [place] [address] Jun, Low back pain M54.5 [facility] [address] [facility] [id number] [address] [place] [address] Jun, Migraine without aura and wi thout status migrainosus, not intractable G43.009 [facility] [address] [facility] [id number] [address] [place] [address] Jun, Type 1 diabetes mellitus wit h hyperglycemia E10.65 ; Dysthymia F34.1 and Migraine without aura and without status migrainosus, not intractable G43.009 [facility] [address] [facility] [id number] [address] [place] [phone] Jun, [facility] [address] [facility] [id number] [address] [place] [address] May, Type 1 diabetes mellitus wit h hyperglycemia E10.65 [facility] [address] [facility] [id number] [address] [place] [address] May, Low back pain M54.5 [facility] [address] [facility] [id number] [address] [place] [phone] May, Type 1 diabetes mellitus wit h hyperglycemia E10.65 [facility] [address] [facility] [id number] [address] [place] [phone] Apr, [facility] [address] [facility] [id number] [address] [place] [address] Apr, Chronic kidney disease, stag e 4 (severe) N18.4 [facility] [address] [facility] [id number] [address] [place] [address] Apr, Low back pain M54.5 [facility] [address] [id number] [address] [place] [phone] March, [facility] [address] [facility] [id number] [address] [place] [address] March, Low back pain M54.5 [facility] [address] [id number] [address] [place] [phone] Feb, [facility] [address] [facility] [id number] [address] [place] [phone] Feb, [facility] [address] [facility] [id number] [address] [place] [address] Feb, Low back pain M54.5 [facility] [address] [facility] [id number] [address] [place] [address] Feb, Low back pain M54.5 [facility] [address] [facility] [id number] [address] [place] [address] Feb, Migraine without aura and wi thout status migrainosus, not intractable G43.009 [facility] [address] [facility] [id number] [address] [place] [id number] Feb, [facility] [address] [facility] [id number] [address] [place] [address] Jan, Low back pain M54.5 [facility] [address] [facility] [id number] [address] [place] [address] Jan, Type 1 diabetes mellitus wit hout complications E10.9 ; Anemia D64.9 ; Chronic kidney disease, unspecified N18.9 ; Migraine without aura and without status migrainosus, not intractable G43.009 and Other insomnia G47.09 [facility] [address] [facility] [id number] [address] [place] [phone] Jan, [facility] [address] [facility] [id number] [address] [place] [address] Dec, Low back pain M54.5 [facility] [address] [facility] [id number] [address] [place] [id number] Dec, [facility] [address] [facility] [id number] [address] [place] [address] Dec, [facility] [address] [facility] [id number] [address] [place] [address] Dec, Shortness of breath R06.02 ; Type 1 diabetes mellitus without complications E10.9 and Leg swelling M79.89 [facility] [address] [id number] [address] [place] [phone] Nov, Low back pain M54.5 [facility] [address] [facility] [id number] [address] [place] [address] Nov, Viral syndrome B34.9 [facility] [address] [facility] [id number] [address] [place] [address] Oct, Low back pain M54.5 [facility] [address] [facility] [id number] [address] [place] [phone] Oct, [facility] [address] [facility] [id number] [address] [place] [address] Oct, Low back pain M54.5 [facility] [address] [facility] [id number] [address] [place] [phone] Sep, [facility] [address] [facility] [id number] [address] [place] [phone] Sep, Fatigue, unspecified type R5 3.83 ; Type 1 diabetes mellitus without complications E10.9 and Anemia D64.9 [facility] [address] [facility] [id number] [address] [place] [address] Sep, Low back pain M54.5 [facility] [address] [facility] [id number] [address] [place] [id number] Sep, Type 1 diabetes mellitus wit h hyperglycemia E10.65 [facility] [address] [facility] [id number] [address] [place] [id number] Aug, Type 1 diabetes mellitus wit hout complications E10.9 [facility] [address] [facility] [id number] [place] [phone] Aug, [facility] [address] [facility] [id number] [address] [place] [phone] Aug, [facility] [address] [place] [id number] [place] [phone] Jul, [facility] [address] [facility] [id number] [address] [place] [id number] 14 Jul, 2016 Low back pain M54.5 [facility] [address] [place] [id number] [place] [phone] 12 Jul, 2016 Hyperkalemia, diminished anna al excretion E87.5 [facility] [address] [phone] [id number] Jul, 2016 Hyperkalemia, diminished anna al excretion E87.5 [facility] [address] [place] [id number] [address] [place] [phone] Jun, [facility] [address] [place] [id number] [place] [phone] Jun, Low back pain M54.5 [facility] [address] [place] [id number] [place] [phone] Jun, Anemia D64.9 ; Autonomic ayush ropathy G90.9 and Postural hypotension I95.1 [facility] [address] [facility] [id number] [address] [place] [phone] Jun, [facility] [address] [place] [id number] [place] [phone] May, Type 1 diabetes mellitus wit h complications E10.8 and Anemia D64.9 [facility] [address] [id number] [address] [place] [address] May, Low back pain M54.5 [facility] [address] [id number] [address] [place] [id number] Apr, [facility] [address] [id number] [address] [place] [address] Apr, Low back pain M54.5 [facility] [address] [id number] [address] [place] [address] Apr, [facility] [address] [id number] [address] [place] [address] Apr, [facility] [address] [id number] [address] [place] [address] March, Low back pain M54.5 and Othe r chronic pain G89.29 [facility] [address] [id number] [address] [place] [address] March, Type 1 diabetes mellitus wit hout complications E10.9 [facility] [address] [id number] [address] [place] [address] March, [facility] [address] [id number] [address] [place] [address] March, [facility] [address] [id number] [address] [place] [id number] Feb, [facility] [address] [id number] [address] [place] [id number] Feb, Type 1 diabetes mellitus wit hout complications E10.9 [facility] [address] [id number] [address] [place] [address] Feb, Trochanteric bursitis, right hip M70.61 [facility] [address] [id number] [address] [place] [address] Jan, [facility] [address] [id number] [address] [place] [address] Jan, [facility] [address] [id number] [address] [place] [id number] Dec, Type 1 diabetes mellitus wit h complications E10.8 [facility] [id number] [place] [address] Dec, [facility] [address] [address] Dec, Anemia D64.9 ; Autonomic ayush ropathy G90.9 and Postural hypotension I95.1 [facility] [address] [address] Dec, [facility] [address] [address] Nov, Sore throat J02.9 [place] [address] [id number] Nov, Type 1 diabetes mellitus wit h complications E10.8 [place] [address] [address] Nov, Type 1 diabetes mellitus wit h diabetic nephropathy E10.21 ; Proteinuria, unspecified R80.9 and Chronic kidney disease, unspecified N18.9 [place] [address] [id number] Nov, [facility] [address] [id number] Nov, Trochanteric bursitis, right hip M70.61 [facility] [address] [id number] [address] [place] [address] Nov, [facility] [address] [id number] [address] [place] [address] Oct, [facility] [address] [address] Oct, [facility] [address] [address] Oct, [facility] [address] [address] Sep, [facility] [address] [id number] [address] [place] [id number] Sep, [facility] [address] [id number] [address] [place] [address] Sep, Type 2 diabetes mellitus wit h complication E11.8 and Right hip pain M25.551 [facility] [address] [id number] [address] [place] [address] Sep, [facility] [address] [id number] [address] [place] [address] Aug, [facility] [address] [id number] [address] [place] [phone] Aug, [facility] [address] [id number] [address] [place] [address] Aug, [facility] [address] [id number] [address] [place] [address] Aug, Type 1 diabetes mellitus wit hout complications E10.9 [facility] [address] [id number] [address] [place] [id number] 16 Jul, 2015 [facility] [address] [id number] [address] [place] [phone] 15 Jul, 2015 [facility] [address] [id number] [address] [place] [id number] 14 Jul, 2015 [facility] [address] [id number] [address] [place] [address] Jun, [facility] [address] [id number] [address] [place] [address] Jun, [facility] [address] [id number] [address] [place] [address] Jun, [facility] [address] [id number] [address] [place] [id number] Jun, [facility] [address] [id number] [address] [place] [address] Jun, [facility] [address] [id number] [address] [place] [id number] Jun, Diabetes mellitus without me ntion of complication, type I [juvenile type], not stated as uncontrolled 250.01 [facility] [address] [id number] [address] [place] [address] May, [facility] [address] [id number] [address] [place] [address] May, [facility] [address] [id number] [address] [place] [address] May, [facility] [address] [facility] [id number] [address] [place] [address] May, Autonomic neuropathy 337.9 ; Postural hypotension 458.0 and Anemia 285.9 [facility] [address] [facility] [id number] [address] [place] [address] May, [facility] [address] [facility] [id number] [address] [place] [address] Apr, [facility] [address] [facility] [id number] [address] [place] [address] Apr, [facility] [address] [facility] [id number] [address] [place] [address] Apr, [facility] [address] [id number] [address] [place] [phone] Apr, [facility] [address] [facility] [id number] [address] [place] [address] Apr, [facility] [address] [facility] [id number] [address] [place] [phone] March, [facility] [address] [facility] [id number] [address] [place] [address] March, [facility] [address] [id number] [address] [place] [id number] March, [facility] [address] [id number] [address] [place] [address], [place] [address] March, [facility] [address] [id number] [address] [place] [address], [place] [id number] March, [facility] [address] [id number] [address] [place] [address], [place] [id number] Feb, [facility] [address] [id number] [address] [place] [address], [place] [id number] Feb, [facility] [address] [id number] [address] [place] [address], [place] [address] Feb, [facility] [address] [id number] [address] [place] [address], [place] [address] Jan, [facility] [address] [id number] [address] [place] [address], [place] [id number] Jan, [facility] [address] [id number] [address] [place] [address], [place] [address] Jan, [facility] [address] [id number] [address] [place] [address], [place] [address] Jan, [facility] [address] [id number] [address] [place] [address], [place] [address] Jan, [facility] [address] [id number] [address] [place] [address], [place] [address] Jan, [facility] [address] [id number] [address] [place] [address], [place] [address] Jan, [facility] [address] [id number] [address] [place] [address], [place] [id number] Jan, [facility] [address] [id number] [address] [place] [address], [place] [id number] Jan, [facility] [address] [id number] [address] [place] [address], [place] [address] Jan, [facility] [address] [id number] [address] [place] [address], [place] [id number] Jan, [facility] [address] [id number] [address] [place] [address], [place] [id number] Jan, [facility] [address] [id number] [address] [place] [address], [place] [address] Jan, [facility] [address] [id number] [address] [place] [address], [place] [address] Dec, [facility] [address] [id number] [address] [place] [address], [place] [address] Dec, [facility] [address] [id number] [address] [place] [address], [place] [id number] Dec, [facility] [address] [id number] [address] [place] [address], [place] [address] Dec, [facility] [address] [id number] [address] [place] [address], [place] [address] Dec, [facility] [address] [id number] [address] [place] [address], [place] [id number] Dec, [facility] [address] [id number] [address] [place] [address], [place] [address] Dec, [facility] [address] [id number] [address] [place] [address], [place] [address] Dec, [facility] [address] [id number] [address] [place] [address], [place] [address] Nov, [facility] [address] [id number] [address] [place] [address], [place] [address] Nov, [facility] [address] [id number] [address] [place] [address], [place] [address] Nov, [facility] [address] [id number] [address] [place] [address], [place] [address] Nov, [facility] [address] [id number] [address] [place] [address], [place] [address] Nov, [facility] [address] [id number] [address] [place] [address], [place] [address] Nov, [facility] [address] [id number] [address] [place] [address], [place] [address] Nov, [facility] [address] [id number] [address] [place] [address], [place] [address] Nov, [facility] [address] [id number] [address] [place] [address], [place] [id number] Nov, [facility] [address] [id number] [address] [place] [address], [place] [id number] Oct, [facility] [address] [id number] [address] [place] [address], [place] [id number] Oct, [facility] [address] [id number] [address] [place] [address], [place] [id number] Oct, [facility] [address] [id number] [address] [place] [address], [place] [address] Oct, [facility] [address] [id number] [address] [place] [address], [place] [id number] Oct, [facility] [address] [id number] [address] [place] [address], [place] [id number] Oct, [facility] [address] [id number] [address] [place] [address], [place] [address] Oct, [facility] [address] [id number] [address] [place] [address], [place] [address] Oct, [facility] [address] [id number] [address] [place] [address], [place] [address] Oct, [facility] [address] [id number] [address] [place] [address], [place] [id number] Oct, [facility] [address] [id number] [address] [place] [address], [place] [id number] Oct, [facility] [address] [id number] [address] [place] [address], [place] [address] Oct, [facility] [address] [id number] [address] [place] [address], [place] [address] Oct, [facility] [address] [id number] [address] [place] [address], [place] [address] Oct, [facility] [address] [id number] [address] [place] [address], [place] [address] Sep, [facility] [address] [id number] [address] [place] [address], [place] [id number] Sep, [facility] [address] [id number] [address] [place] [address], [place] [address] Sep, [facility] [address] [id number] [address] [place] [address], [place] [id number] Sep, [facility] [address] [id number] [address] [place] [address], [place] [id number] Aug, [facility] [address] [id number] [address] [place] [address], [place] [address] Aug, [facility] [address] [id number] [address] [place] [address], [place] [address] Aug, [facility] [address] [id number] [address] [place] [address], [place] [id number] Aug, [facility] [address] [id number] [address] [place] [address], [place] [address] Aug, [facility] [address] [id number] [address] [place] [address], [place] [address] Aug, [facility] [address] [id number] [address] [place] [address], [place] [address] Aug, [facility] [address] [id number] [address] [place] [address], [place] [address] Aug, [facility] [address] [id number] [address] [place] [address], [place] [address] Aug, [facility] [address] [id number] [address] [place] [address], [place] [address] Aug, [facility] [address] [id number] [address] [place] [address], [place] [id number] 29 Jul, 2013 [facility] [address] [id number] [address] [place] [address], [place] [id number] 29 Jul, 2013 [facility] [address] [id number] [address] [place] [address], [place] [id number] 29 Jul, 2013 [facility] [address] [id number] [address] [place] [address], [place] [id number] 29 Jul, 2013 [facility] [address] [id number] [address] [place] [address], [place] [id number] 22 Jul, 2013 [facility] [address] [id number] [address] [place] [address], [place] [id number] Jul, 2013 [facility] [address] [id number] [address] [place] [address], [place] [address] Jul, 2013 [facility] [address] [id number] [address] [place] [address], [place] [id number] 19 Jul, 2013 [facility] [address] [id number] [address] [place] [address], [place] [id number] 11 Jul, 2013 [facility] [address] [id number] [address] [place] [address], [place] [id number] 11 Jul, 2013 [facility] [address] [id number] [address] [place] [address], [place] [address] 10 Jul, 2013 [facility] [address] [id number] [address] [place] [address], [place] [id number] 10 Jul, 2013 [facility] [address] [id number] [address] [place] [address], [place] [id number] 08 Jul, 2013 [facility] [address] [id number] [address] [place] [address], [place] [id number] 08 Jul, 2013 [facility] [address] [id number] [address] [place] [id number] Jul, 2013 [facility] [address] [id number] [facility] [address] 03 Jul, 2013 [facility] [address] [id number] [address] [place] [address], [place] [address] Jul, [facility] [address] [id number] [address] [place] [address], [place] [address] Jul, [facility] [address] [id number] [address] [place] [address], [place] [address] Jun, [facility] [address] [id number] [address] [place] [address], [place] [address] Jun, [facility] [address] [id number] [address] [place] [address], [place] [address] Jun, [facility] [address] [id number] [address] [place] [address], [place] [address] Jun, [facility] [address] [id number] [address] [place] [address], [place] [address] Jun, [facility] [address] [id number] [address] [place] [address], [place] [address] Jun, [facility] [address] [id number] [address] [place] [address], [place] [address] Jun, [facility] [address] [id number] [address] [place] [address], [place] [address] Jun, [facility] [address] [id number] [address] [place] [address], [place] [address] Jun, [facility] [address] [id number] [address] [place] [address], [place] [address] Jun, [facility] [address] [id number] [address] [place] [address], [place] [address] Jun, [facility] [address] [id number] [address] [place] [address], [place] [address] Jun, [facility] [address] [id number] [facility] [address] Jun, [facility] [address] [id number] [facility] [address] Jun, [facility] [address] [id number] [address] [place] [address], [place] [id number] Jun, [facility] [address] [id number] [address] [place] [address], [place] [address] May, [facility] [address] [id number] [address] [place] [address], [place] [address] May, [facility] [address] [id number] [address] [place] [address], [place] [address] May, [facility] [address] [id number] [address] [place] [address], [place] [address] May, [facility] [facility] [address] [id number] [address] [place] [address], [place] [id number] May, [facility] [place] [facility] [address] [id number] [address] [place] [address], [place] [id number] May, [facility] [place] [facility] [address] [id number] [address] [place] [address], [place] [id number] May, [facility] [place] [facility] [address] [id number] [address] [place] [address], [place] [address] May, [facility] [place] [facility] [address] [id number] [address] [place] [address], [place] [address] Apr, [facility] [place] [facility] [address] [id number] [address] [place] [address], [place] [id number] Apr, [facility] [place] [facility] [address] [id number] [address] [place] [address], [place] [id number] Apr, [facility] [place] [facility] [address] [id number] [address] [place] [address], [place] [id number] Apr, [facility] [place] [facility] [address] [id number] [address] [place] [address], [place] [id number] Apr, [facility] [place] [facility] [address] [id number] [facility] [address] Apr, [facility] [place] [facility] [address] [id number] [facility] [id number] Apr, [facility] [place] [facility] [address] [id number] [facility] [address] Apr, [facility] [place] [facility] [address] [id number] [facility] [id number] Apr, [facility] [place] [facility] [address] [id number] [facility] [address] Apr, [facility] [place] [facility] [address] [id number] [address] [place] [address], [place] [address] Apr, [facility] [place] [facility] [address] [id number] [address] [place] [address], [place] [id number] Apr, [facility] [place] [facility] [address] [id number] [address] [place] [address], [place] [id number] Apr, [facility] [place] [facility] [address] [id number] [address] [place] [address], [place] [id number] Apr, [facility] [place] [facility] [address] [id number] [address] [place] [address], [place] [id number] Apr, [facility] [place] [facility] [address] [id number] [address] [place] [address], [place] [id number] Apr, [facility] [place] [facility] [address] [id number] [address] [place] [address], [place] [id number] Apr, [facility] [place] [facility] [address] [id number] [address] [place] [address], [place] [id number] Apr, [facility] [place] [facility] [address] [id number] [address] [place] [address], [place] [id number] March, [facility] [place] [facility] [address] [id number] [address] [place] [address], [place] [id number] March, [facility] [place] [facility] [address] [id number] [address] [place] [id number] March, [facility] [address] [id number] [address] [place] [address], [place] [id number] March, [facility] [address] [id number] [address] [place] [address], [place] [id number] March, [facility] [address] [id number] [address] [place] [address], [place] [id number] March, [facility] [address] [id number] [address] [place] [address], [place] [id number] March, [facility] [address] [id number] [address] [place] [address], [place] [id number] March, [facility] [address] [id number] [address] [place] [address], [place] [id number] March, [facility] [address] [id number] [address] [place] [address], [place] [id number] Feb, [facility] [address] [id number] [address] [place] [address], [place] [id number] Feb, [facility] [address] [id number] [address] [place] [address], [place] [id number] Feb, [facility] [address] [id number] [address] [place] [address], [place] [id number] Feb, [facility] [address] [id number] [address] [place] [address], [place] [id number] Feb, [facility] [address] [id number] [address] [place] [address], [place] [id number] Feb, [facility] [address] [id number] [address] [place] [address], [place] [address] Feb, [facility] [address] [id number] [address] [place] [address], [place] [id number] Feb, [facility] [address] [id number] [address] [place] [address], [place] [id number] Feb, [facility] [address] [id number] [address] [place] [address], [place] [id number] Feb, [facility] [address] [id number] [address] [place] [address], [place] [id number] Feb, [facility] [facility] [address] [id number] [address] [place] [address], [place] [id number] Feb, [facility] [address] [id number] [address] [place] [address], [place] [phone] Feb, [facility] [address] [id number] [address] [place] [address], [place] [id number] Jan, [facility] [address] [id number] [address] [place] [address], [place] [phone] Jan, [facility] [address] [id number] [address] [place] [address], [place] [id number] Jan, [facility] [address] [id number] [address] [place] [address], [place] [id number] Jan, [facility] [address] [id number] [address] [place] [address], [place] [id number] Jan, [facility] [address] [id number] [address] [place] [address], [place] [id number] Jan, [facility] [address] [id number] [address] [place] [address], [place] [id number] Jan, [facility] [address] [id number] [address] [place] [address], [place] [id number] Jan, [facility] [address] [id number] [address] [place] [address], [place] [id number] Dec, [facility] [address] [id number] [address] [place] [address], [place] [id number] Dec, [facility] [address] [id number] [address] [place] [address], [place] [id number] Dec, [facility] [address] [id number] [address] [place] [address], [place] [id number] Dec, [facility] [address] [id number] [address] [place] [address], [place] [id number] Dec, [facility] [address] [id number] [address] [place] [address], [place] [id number] Dec, [facility] [address] [id number] [address] [place] [address], [place] [id number] Dec, [facility] [address] [id number] [address] [place] [address], [place] [id number] Dec, [facility] [address] [id number] [address] [place] [address], [place] [id number] Dec, [facility] [address] [id number] [address] [place] [address], [place] [id number] Dec, [facility] [address] [id number] [address] [place] [address], [place] [phone] Nov, [facility] [address] [id number] [address] [place] [address], [place] [id number] Nov, [facility] [address] [id number] [address] [place] [address], [place] [id number] Nov, [facility] [address] [id number] [address] [place] [address], [place] [id number] Nov, [facility] [address] [id number] [address] [place] [address], [place] [id number] Nov, [facility] [address] [id number] [address] [place] [address], [place] [id number] Nov, [facility] [address] [id number] [address] [place] [address], [place] [id number] Nov, [facility] [address] [id number] [address] [place] [address], [place] [id number] Nov, [facility] [address] [id number] [address] [place] [address], [place] [id number] Nov, [facility] [address] [id number] [address] [place] [address], [place] [id number] Nov, [facility] [address] [id number] [address] [place] [address], [place] [id number] Oct, [facility] [address] [id number] [address] [place] [address], [place] [id number] Oct, [facility] [address] [id number] [address] [place] [address], [place] [id number] 18 Oct, 2013 [facility] [address] [id number] [address] [place] [address], [place] [id number] 18 Oct, 2013 [facility] [address] [id number] [address] [place] [address], [place] [id number] 17 Oct, 2013 [facility] [address] [id number] [address] [place] [address], [place] [id number] 17 Oct, 2013 [facility] [address] [id number] [address] [place] [address], [place] [id number] 16 Oct, 2013 [facility] [address] [id number] [address] [place] [address], [place] [id number] 16 Oct, 2013 [facility] [address] [id number] [address] [place] [address], [place] [id number] Oct, [facility] [address] [id number] [address] [place] [address], [place] [id number] Oct, [facility] [address] [id number] [address] [place] [address], [place] [id number] 04 Oct, 2013 [facility] [address] [id number] [address] [place] [address], [place] [id number] Oct, [facility] [address] [id number] [address] [place] [address], [place] [id number] 04 Oct, 2013 [facility] [address] [id number] [address] [place] [address], [place] [id number] 04 Oct, 2013 [facility] [address] [id number] [address] [place] [phone] Sep, [facility] [address] [id number] [address] [place] [address], [place] [id number] Sep, [facility] [address] [id number] [address] [place] [phone] Sep, [facility] [address] [id number] [address] [place] [id number] Sep, [facility] [address] [id number] [address] [place] [phone] Sep, [facility] [address] [id number] [address] [place] [address], [place] [id number] Sep, [facility] [address] [id number] [address] [place] [phone] Aug, [facility] [address] [id number] [address] [place] [id number] Aug, [facility] [address] [id number] [address] [place] [id number] Aug, [facility] [address] [id number] [address] [place] [phone] Aug, [facility] [address] [id number] [address] [place] [phone] Aug, [facility] [address] [id number] [address] [place] [id number] Aug, [facility] [address] [id number] [address] [place] [id number] Aug, [facility] [address] [id number] [address] [place] [phone] Aug, [facility] [address] [id number] [address] [place] [id number] Aug, [facility] [address] [id number] [address] [place] [id number] 25 Jul, 2013 [facility] [address] [id number] [address] [place] [address], [place] [id number] 23 Jul, 2012 [facility] [address] [id number] [address] [place] [address], [place] [id number] 21 Jul, 2012 [facility] [address] [id number] [address] [place] [address], [place] [id number] 20 Jul, 2012 [facility] [address] [id number] [address] [place] [address], [place] [id number] 18 Jul, 2012 [facility] [address] [id number] [address] [place] [address], [place] [id number] 17 Jul, 2012 [facility] [address] [id number] [address] [place] [address], [place] [id number] 16 Jul, 2012 [facility] [address] [id number] [address] [place] [address], [place] [id number] 11 Jul, 2012 [facility] [address] [id number] [address] [place] [address], [place] [id number] 09 Jul, 2012 [facility] [address] [id number] [address] [place] [address], [place] [id number] 09 Jul, 2012 [facility] [address] [id number] [address] [place] [address], [place] [id number] 06 Jul, 2012 [facility] [address] [id number] [address] [place] [address], [place] [id number] 03 Jul, 2012 [facility] [address] [id number] [address] [place] [address], [place] [id number] Jun, [facility] [address] [id number] [address] [place] [address], [place] [phone] Jun, [facility] [address] [id number] [address] [place] [address], [place] [id number] Jun, [facility] [address] [id number] [address] [place] [address], [place] [id number] Jun, [facility] [address] [id number] [address] [place] [address], [place] [id number] Jun, [facility] [address] [id number] [address] [place] [address], [place] [id number] Jun, [facility] [address] [id number] [address] [place] [address], [place] [phone] Jun, [facility] [address] [id number] [address] [place] [address], [place] [id number] Jun, [facility] [address] [id number] [address] [place] [address], [place] [id number] Jun, [facility] [address] [id number] [address] [place] [address], [place] [id number] May, [facility] [address] [id number] [address] [place] [address], [place] [id number] May, [facility] [address] [id number] [address] [place] [address], [place] [id number] May, [facility] [address] [id number] [address] [place] [address], [place] [id number] May, [facility] [address] [id number] [address] [place] [address], [place] [id number] May, [facility] [address] [id number] [address] [place] [address], [place] [id number] May, [facility] [address] [id number] [address] [place] [address], [place] [address] May, [facility] [address] [id number] [address] [place] [address], [place] [id number] March, [facility] [address] [id number] [address] [place] [address], [place] [id number] March, [facility] [address] [id number] [address] [place] [address], [place] [id number] March, [facility] [address] [id number] [address] [place] [address], [place] [id number] Dec, [facility] [address] [id number] [address] [place] [address], [place] [id number] Nov, [facility] [address] [id number] [address] [place] [address], [place] [id number] Aug, [facility] [address] [id number] [address] [place] [address], [place] [id number] Aug, [facility] [address] [id number] [address] [place] [address], [place] [address] Jun, [facility] [address] [id number] [address] [place] [address], [place] [id number] Jun, [facility] [address] [id number] [address] [place] [address], [place] [id number] Jun, [facility] [address] [id number] [address] [place] [address], [place] [id number] Jun, [facility] [address] [id number] [address] [place] [address], [place] [id number] May, [facility] [address] [id number] [address] [place] [address], [place] [id number] May, [facility] [address] [id number] [address] [place] [address], [place] [id number] May, [facility] [address] [id number] [address] [place] [address], [place] [address] May, [facility] [address] [id number] [address] [place] [address], [place] [id number] May, [facility] [address] [id number] [address] [place] [address], [place] [id number] May, [facility] [address] [id number] [address] [place] [address], [place] [id number] May, [facility] [address] [id number] [address] [place] [address], [place] [id number] Apr, [facility] [address] [id number] [address] [place] [address], [place] [id number] Apr, [facility] [address] [id number] [address] [place] [address], [place] [id number] Apr, [facility] [address] [id number] [address] [place] [address], [place] [phone] Apr, [facility] [address] [id number] [address] [place] [address], [place] [id number] March, [facility] [address] [id number] [address] [place] [address], [place] [id number] March, [facility] [address] [id number] [address] [place] [address], [place] [id number] March, [facility] [address] [id number] [address] [place] [address], [place] [id number] March, [facility] [address] [id number] [address] [place] [address], [place] [id number] March, [facility] [address] [id number] [address] [place] [address], [place] [id number] March, [facility] [address] [id number] [address] [place] [address], [place] [id number] March, [facility] [address] [id number] [address] [place] [address], [place] [id number] March, [facility] [address] [id number] [address] [place] [address], [place] [id number] March, [facility] [address] [id number] [address] [place] [address], [place] [id number] Feb, [facility] [address] [id number] [address] [place] [address], [place] [id number] Feb, [facility] [address] [id number] [address] [place] [address], [place] [id number] Jan, [facility] [address] [id number] [address] [place] [address], [place] [id number] Jan, [facility] [address] [id number] [address] [place] [address], [place] [id number] 16 Jan, 2012 [facility] [address] [id number] [address] [place] [address], [place] [id number] 05 Jan, 2012 [facility] [address] [id number] [address] [place] [address], [place] [id number] 20 Dec, 2011 [facility] [address] [id number] [address] [place] [address], [place] [id number] 16 Dec, 2011 [facility] [address] [id number] [address] [place] [address], [place] [id number] 15 Dec, 2011 [facility] [address] [id number] [address] [place] [address], [place] [id number] 30 Nov, 2011 [facility] [address] [id number] [address] [place] [address], [place] [id number] 19 Oct, 2011 [facility] [address] [id number] [address] [place] [address], [place] [id number] 15 Oct, 2011 [facility] [address] [id number] [address] [place] [address], [place] [id number] 15 Oct, 2011 [facility] [address] [id number] [address] [place] [address], [place] [id number] 14 Oct, 2011 [facility] [address] [id number] [address] [place] [address], [place] [id number] 14 Oct, 2011 [facility] [address] [id number] [address] [place] [address], [place] [id number] 12 Oct, 2011 [facility] [address] [id number] [address] [place] [address], [place] [id number] 09 Oct, 2011 [facility] [address] [id number] [address] [place] [address], [place] [id number] Oct, [facility] [address] [id number] [address] [place] [address], [place] [id number] 22 Sep, 2011 [facility] [address] [id number] [address] [place] [address], [place] [id number] 17 Sep, 2011 [facility] [address] [id number] [address] [place] [id number] 14 Sep, 2011 [facility] [address] [id number] [address] [place] [id number] 10 Sep, 2011 [facility] [address] [id number] [address] [place] [id number] 10 Sep, 2011 [facility] [address] [id number] [address] [place] [id number] 09 Sep, 2011 [facility] [address] [id number] [address] [place] [id number] 08 Sep, 2011 [facility] [address] [id number] [address] [place] [phone] Sep, [facility] [address] [id number] [address] [place] [phone] Sep, [facility] [address] [id number] [address] [place] [phone] 24 Aug, 2011 [facility] [address] [id number] [address] [place] [phone] Jul, [facility] [address] [id number] [address] [place] [phone] Oct, [facility] [address] [id number] [address] [place] [phone] Oct, [facility] [address] [id number] [address] [place] [phone] Oct, IMMUNIZATIONS No Known Immunizations SOCIAL HISTORY Never Assessed REASON FOR VISIT PLAN OF CARE VITAL SIGNS MEDICATIONS Unknown Medications RESULTS No Results PROCEDURES Procedure Date Ordered Result Body Site COMPUTER DX MAMMOGRAM ADD-ON Jul 28, 2014 INSTRUCTIONS MEDICATIONS ADMINISTERED No Known Medications MEDICAL (GENERAL) HISTORY Type Description Date Medical History Diabetic Medical History kidney failure,and pancreatic failure Surgical History Bilat tubal ligation Surgical History Lt cataract surgery 04/2018 Surgical History Rt cataract surgery 05/2018 Surgical History pearateeal tube 05/2019 Hospitalization History Diabetic multiple hospitalizations Hospitalization History DKA 10/14-10/19
--- OUTSIDE RECORDS SUMMARY | 2020-03-19 05:53 | XMS REPORT ---
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 97748459 Problem Chronic kidney disease, unspecified N18.9 Active 051710034 Problem Anemia, unspecified D64.9 Active 638008246 Problem Irritable bowel K58.9 Active 1074 3008 Problem Type 1 diabetes mellitus without complications E10 .9 Active 672596491 Problem Migraine G43.909 Active 81489845 Problem Irritable bowel syndrome with diarrhea K58.0 Active 858355739 Problem Peritoneal dialysis status Z99.2 Act moody 364415326 Problem Essential hypertension I10 Active 97725933 Problem Intractable migraine without aura and with status migr ainosus G43.011 Active 552245809 Problem Type 1 diabetes mellitus with hypoglycemia without coma E10.649 Active 54494738 Problem Type 1 diabetes mellitus with hyperglycemia E10.65 Active 23134166 Problem Dysthymia F34.1 Active 18861171 Problem Chronic kidney disease, stage 4 (severe) N18.4 Active 786033729 Problem Migraine with aura and without status migrainosu s, not intractable G43.109 Active 2448730 Problem Autonomic neuropathy G90.9 Active 359083301 Problem Type 1 diabetes mellitus with complications E10.8 Active 969199217 Problem Menorrhagia with regular cycle N92.0 Active 305064195 Problem Lymphedema I89.0 Active 174914286 Problem Claudication I73.9 Active 1875196 6 Problem Other chronic pain G89.29 Active 8 3025795 Problem Diastolic dysfunction I51.89 Active 8964374 Problem ESRF (end stage renal failure) N18.6 Active 17176184 Problem 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 Active 481189793 Problem Migraine without aura and without status migrain osus, not intractable G43.009 Active 307042803 Problem Type 1 diabetes mellitus with foot ulcer E10.621 Active [id number] Problem Low back pain M54.5 Active 669630 009 Problem Other insomnia G47.09 Active 87950 2000 Problem Restless legs G25.81 Active 064761 08 Problem Hyperthyroidism E05.90 Active 3448 6009 Problem Moderate episode of recurrent major depressive disorder F33.1 Active 946975379 Problem Primary insomnia F51.01 Active 397 2004 ALLERGIES No Information ENCOUNTERS Encounter Location Date Diagnosis [facility] [address] [facility] [id number] [address] [place] [address] 15 Apr, 2020 [facility] [address] [address] 28 Jan, 2020 Type 1 diabetes mellitus wit h foot ulcer E10.621 and Non-pressure chronic ulcer of other part of right foot limited to breakdown of skin L97.511 [facility] [address] [place] [id number] [address] [place] [address] 23 Jan, 2020 Type 1 diabetes mellitus wit h diabetic nephropathy E10.21 [facility] [address] [place] [id number] [address] [place] [address] 20 Jan, 2020 [facility] [address] [address] 16 Jan, 2020 Migraine without aura and wi thout status migrainosus, not intractable G43.009 and Type 1 diabetes mellitus with hypoglycemia without coma E10.649 [facility] [address] [place] [id number] [address] [place] [address] 11 Jan, 2020 [facility] [address] [place] [id number] [address] [place] [id number] 10 Jan, 2020 Type 1 diabetes mellitus wit h hyperglycemia E10.65 ; Orthostatic hypotension I95.1 and Restless legs G25.81 [facility] [address] [id number] [address] [place] [address] [id number] 06 Dec, 2019 Caries K02.9 and Dental exam ination Z01.20 [place] [id number] [place] [address] 30 Oct, 2019 Restless legs G25.81 [place] [address] [address] 16 Oct, 2019 Encounter for Medicare darian chauhan wellness exam Z00.00 ; 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 ; Migraine without aura and without status migrainosus, not intractable G43.009 ; Chronic kidney disease, stage 4 (severe) N18.4 ; Claudication I73.9 ; Peritoneal dialysis status Z99.2 ; Diastolic dysfunction I51.89 ; Primary insomnia F51.01 and Burn T30.0 [place] [address] [address] Sep, Moderate episode of recurren t major depressive disorder F33.1 and Primary insomnia F51.01 [place] [address] [address] Aug, Hyperthyroidism E05.90 [place] [address] [address] May, Restless legs G25.81 [place] [address] [address] May, [place] [address] [address] May, [place] [address] [address] May, Type 1 diabetes mellitus wit h hypoglycemia without coma E10.649 ; ESRF (end stage renal failure) N18.6 ; Leg cramps R25.2 ; Restless legs G25.81 and Low back pain M54.5 [place] [address] [place] [id number] [address] [place] [address] 13 Apr, 2019 Low back pain M54.5 [place] [address] [address] Apr, [facility] [address] [id number] [address] [place] [phone] March, Low back pain M54.5 [facility] [address] [id number] [address] [place] [id number] March, [facility] [address] [facility] [id number] [address] [place] [address] Feb, Low back pain M54.5 [facility] [address] [id number] [address] [place] [address] Jan, Low back pain M54.5 [facility] [address] [facility] [id number] [address] [place] [address] Jan, [facility] [address] [facility] [id number] [address] [place] [address] Jan, [facility] [address] [facility] [id number] [address] [place] [address] Jan, [facility] [address] [facility] [id number] [address] [place] [address] Dec, Type 1 diabetes mellitus wit h hypoglycemia without coma E10.649 and Low back pain M54.5 [facility] [address] [facility] [id number] [address] [place] [address] Dec, Low back pain M54.5 [facility] [address] [facility] [id number] [address] [place] [address] 13 Dec, 2018 Diastolic dysfunction I51.89 ; Essential hypertension I10 and Chronic kidney disease, stage 4 (severe) N18.4 [facility] [address] [facility] [id number] [address] [place] [address] 11 Dec, 2018 RUQ abdominal pain R10.11 ; Type 1 diabetes mellitus without complications E10.9 ; Therapeutic drug monitoring Z51.81 ; Migraine with aura and without status migrainosus, not intractable G43.109 and Intractable migraine without aura and with status migrainosus G43.011 [place] [address] [facility] [id number] [address] [place] [address] Nov, Low back pain M54.5 [place] [address] [facility] [id number] [address] [place] [address] Nov, [place] [address] [facility] [id number] [address] [place] [address] Nov, Intractable migraine without aura and with status migrainosus G43.011 ; Lymphedema I89.0 ; Pain in right shoulder M25.511 ; Other chronic pain G89.29 ; Irritable bowel syndrome with diarrhea K58.0 ; Type 1 diabetes mellitus without complications E10.9 and Essential hypertension I10 [place] [address] [facility] [id number] [address] [place] [address] Oct, Low back pain M54.5 [place] [address] [place] [id number] [address] [place] [address] Oct, [place] [address] [place] [id number] [address] [place] [address] Oct, Orthostatic hypotension I95. 1 ; Shortness of breath R06.02 ; Leg swelling M79.89 ; Type 1 diabetes mellitus without complications E10.9 and Claudication I73.9 [place] [address] [facility] [id number] [address] [place] [address] Sep, Low back pain M54.5 [place] [address] [place] [id number] [address] [place] [address] Sep, Low back pain M54.5 [place] [address] [facility] [id number] [address] [place] [phone] Aug, [place] [address] [place] [id number] [address] [place] [address] Aug, Migraine without aura and wi thout status migrainosus, not intractable G43.009 [place] [address] [facility] [id number] [address] [place] [phone] Aug, Low back pain M54.5 [facility] [address] [facility] [id number] [address] [place] [address] Aug, Acute rhinosinusitis J01.90 and Sore throat J02.9 [facility] [address] [facility] [id number] [address] [place] [phone] Jul, Low back pain M54.5 [facility] [address] [facility] [id number] [address] [place] [address] Jul, Migraine without aura and wi thout status migrainosus, not intractable G43.009 [facility] [address] [facility] [id number] [address] [place] [address] Jun, Low back pain M54.5 [facility] [address] [facility] [id number] [address] [place] [address] Jun, [facility] [address] [place] [id number] [place] [address] Jun, Orthostatic hypotension I95. 1 ; Shortness of breath R06.02 ; Type 1 diabetes mellitus without complications E10.9 and Leg swelling M79.89 [facility] [address] [place] [id number] [address] [place] [address] Jun, Low back pain M54.5 [facility] [address] [place] [id number] [address] [place] [address] Jun, [facility] [address] [place] [id number] [address] [place] [address] May, Migraine without aura and wi thout status migrainosus, not intractable G43.009 [facility] [address] [facility] [id number] [address] [place] [address] May, Migraine without aura and wi thout status migrainosus, not intractable G43.009 ; Restless legs syndrome G25.81 ; Leg cramps R25.2 ; Chronic kidney disease, unspecified N18.9 ; Postural hypotension I95.1 ; Diarrhea, unspecified type R19.7 and Cough R05 [facility] [address] [id number] [address] [place] [address] May, [facility] [address] [id number] [address] [place] [phone] May, [facility] [address] [facility] [id number] [address] [place] [address] May, Orthostatic hypotension I95. 1 ; Shortness of breath R06.02 ; Type 1 diabetes mellitus with complications E10.8 and Leg swelling M79.89 [facility] [address] [id number] [address] [place] [address] May, [facility] [address] [id number] [address] [place] [address] May, Low back pain M54.5 [facility] [address] [facility] [id number] [address] [place] [address] Apr, Type 1 diabetes mellitus wit h hyperglycemia E10.65 [facility] [address] [id number] [address] [place] [address] Apr, Low back pain M54.5 [facility] [address] [id number] [address] [place] [address] Apr, [facility] [address] [facility] [id number] [address] [place] [address] Apr, [facility] [address] [id number] [address] [place] [address] March, [facility] [address] [facility] [id number] [address] [place] [address] March, Low back pain M54.5 [facility] [address] [id number] [address] [place] [address] March, [facility] [address] [facility] [id number] [address] [place] [address] Feb, [facility] [address] [facility] [id number] [address] [place] [address] Feb, Low back pain M54.5 [facility] [address] [facility] [id number] [address] [place] [address] Jan, Restless legs syndrome G25.8 1 [facility] [address] [place] [id number] [address] [place] [address] Jan, Low back pain M54.5 [facility] [address] [place] [id number] [address] [place] [address] Jan, [facility] [address] [place] [id number] [place] [address] Jan, Type 1 diabetes mellitus wit hout complications E10.9 ; Low back pain M54.5 ; Cough R05 ; Diarrhea, unspecified type R19.7 ; Migraine without aura and without status migrainosus, not intractable G43.009 and Uses control Z30.9 [facility] [address] [place] [id number] [address] [place] [address] Dec, Low back pain M54.5 [facility] [address] [place] [id number] [place] [address] Dec, [facility] [address] [place] [id number] [place] [address] Nov, Well woman exam Z01.419 ; Me norrhagia with regular cycle N92.0 ; Vaginal dryness N89.8 and Migraine with aura and without status migrainosus, not intractable G43.109 [facility] [address] [place] [id number] [address] [place] [address] Nov, [facility] [address] [place] [id number] [address] [place] [address] Nov, Low back pain M54.5 [facility] [address] [place] [id number] [address] [place] [address] Oct, Low back pain M54.5 [facility] [address] [place] [address] Oct, Migraine without aura and wi thout status migrainosus, not intractable G43.009 [facility] [address] [facility] [id number] [address] [place] [address] Sep, Low back pain M54.5 [facility] [address] [place] [id number] [address] [place] [address] Sep, [facility] [address] [facility] [id number] [address] [place] [address] Sep, Migraine without aura and wi thout status migrainosus, not intractable G43.009 [facility] [address] [place] [id number] [address] [place] [address] Sep, Type 1 diabetes mellitus wit h hypoglycemia without coma E10.649 ; Anemia D64.9 ; Migraine without aura and without status migrainosus, not intractable G43.009 ; Chronic kidney disease, unspecified N18.9 ; Autonomic neuropathy G90.9 and Postural hypotension I95.1 [facility] [address] [place] [id number] [address] [place] [address] Sep, Low back pain M54.5 [facility] [address] [place] [id number] [address] [place] [address] Aug, Low back pain M54.5 [facility] [address] [place] [id number] [address] [place] [address] Jul, [facility] [address] [place] [id number] [address] [place] [address] Jul, Low back pain M54.5 [facility] [address] [facility] [id number] [address] [place] [address] Jun, [facility] [address] [place] [id number] [address] [place] [address] Jun, Low back pain M54.5 [facility] [address] [place] [id number] [address] [place] [address] Jun, Migraine without aura and wi thout status migrainosus, not intractable G43.009 [facility] [address] [id number] [address] [place] [address] Jun, Type 1 diabetes mellitus wit h hyperglycemia E10.65 ; Dysthymia F34.1 and Migraine without aura and without status migrainosus, not intractable G43.009 [facility] [address] [id number] [address] [place] [address] Jun, [facility] [address] [id number] [address] [place] [address] May, Type 1 diabetes mellitus wit hyperglycemia E10.65 [facility] [address] [facility] [id number] [address] [place] [address] May, Low back pain M54.5 [facility] [address] [id number] [address] [place] [address] May, Type 1 diabetes mellitus wit hyperglycemia E10.65 [facility] [address] [id number] [address] [place] [address] Apr, [facility] [address] [facility] [id number] [address] [place] [address] Apr, Chronic kidney disease, stag e 4 (severe) N18.4 [facility] [address] [facility] [id number] [address] [place] [address] Apr, Low back pain M54.5 [facility] [address] [id number] [address] [place] [address] March, [facility] [address] [id number] [address] [place] [address] March, Low back pain M54.5 [facility] [address] [facility] [id number] [address] [place] [address] Feb, [facility] [address] [facility] [id number] [address] [place] [address] Feb, [facility] [address] [facility] [id number] [address] [place] [address] Feb, Low back pain M54.5 [facility] [address] [facility] [id number] [address] [place] [address] Feb, Low back pain M54.5 [facility] [address] [facility] [id number] [address] [place] [address] Feb, Migraine without aura and wi thout status migrainosus, not intractable G43.009 [facility] [address] [facility] [id number] [address] [place] [address] Feb, [facility] [address] [facility] [id number] [address] [place] [address] Jan, Low back pain M54.5 [facility] [address] [facility] [id number] [address] [place] [address] Jan, Type 1 diabetes mellitus wit hout complications E10.9 ; Anemia D64.9 ; Chronic kidney disease, unspecified N18.9 ; Migraine without aura and without status migrainosus, not intractable G43.009 and Other insomnia G47.09 [facility] [address] [facility] [id number] [address] [place] [id number] Jan, [facility] [address] [place] [id number] [address] [place] [id number] Dec, Low back pain M54.5 [facility] [address] [facility] [id number] [address] [place] [phone] Dec, [facility] [address] [facility] [id number] [address] [place] [id number] Dec, [facility] [address] [place] [id number] [address] [place] [phone] 08 Dec, 2016 Shortness of breath R06.02 ; Type 1 diabetes mellitus without complications E10.9 and Leg swelling M79.89 [facility] [address] [place] [id number] [address] [place] [phone] Nov, Low back pain M54.5 [facility] [address] [id number] [address] [place] [id number] Nov, Viral syndrome B34.9 [facility] [address] [id number] [address] [place] [phone] Oct, Low back pain M54.5 [facility] [address] [id number] [address] [place] [phone] Oct, [facility] [address] [id number] [address] [place] [phone] Oct, Low back pain M54.5 [facility] [address] [id number] [address] [place] [phone] Sep, [facility] [address] [id number] [address] [place] [id number] Sep, Fatigue, unspecified type R5 3.83 ; Type 1 diabetes mellitus without complications E10.9 and Anemia D64.9 [facility] [address] [id number] [address] [place] [id number] Sep, Low back pain M54.5 [facility] [address] [id number] [address] [place] [id number] Sep, Type 1 diabetes mellitus wit h hyperglycemia E10.65 [facility] [address] [id number] [address] [place] [phone] Aug, Type 1 diabetes mellitus wit hout complications E10.9 [facility] [address] [id number] [address] [place] [id number] Aug, [facility] [address] [id number] [address] [place] [phone] Aug, [facility] [address] [id number] [address] [place] [id number] Jul, [facility] [address] [id number] [address] [place], [place] [id number] 14 Jul, 2016 Low back pain M54.5 [facility] [address] [facility] [id number] [address] [place] [id number] 12 Jul, 2016 Hyperkalemia, diminished anna al excretion E87.5 [facility] [address] [facility] [id number] [address] [place] [id number] 09 Jul, 2016 Hyperkalemia, diminished anna al excretion E87.5 [facility] [address] [facility] [id number] [address] [place] [id number] 30 Jun, 2016 [facility] [address] [facility] [id number] [address] [place] [id number] Jun, Low back pain M54.5 [facility] [address] [facility] [id number] [address] [place] [id number] Jun, Anemia D64.9 ; Autonomic ayush ropathy G90.9 and Postural hypotension I95.1 [facility] [address] [facility] [id number] [address] [place] [id number] Jun, [facility] [address] [facility] [id number] [address] [place] [id number] May, Type 1 diabetes mellitus wit h complications E10.8 and Anemia D64.9 [facility] [address] [facility] [id number] [address] [place] [phone] May, Low back pain M54.5 [facility] [address] [facility] [id number] [address] [place] [id number] Apr, [facility] [address] [facility] [id number] [address] [place] [phone] Apr, Low back pain M54.5 [facility] [address] [facility] [id number] [address] [place] [id number] Apr, [facility] [address] [facility] [id number] [address] [place] [phone] Apr, [facility] [address] [facility] [id number] [address] [place] [phone] March, Low back pain M54.5 and Othe r chronic pain G89.29 [facility] [address] [facility] [id number] [address] [place] [phone] March, Type 1 diabetes mellitus wit hout complications E10.9 [facility] [address] [facility] [id number] [address] [place] [id number] March, [facility] [address] [facility] [id number] [address] [place] [phone] March, [facility] [address] [facility] [id number] [address] [place] [phone] Feb, [facility] [address] [facility] [id number] [address] [place] [phone] Feb, Type 1 diabetes mellitus wit hout complications E10.9 [facility] [address] [facility] [id number] [address] [place] [id number] Feb, Trochanteric bursitis, right hip M70.61 [facility] [address] [facility] [id number] [address] [place] [address] Jan, [facility] [address] [facility] [id number] [address] [place] [phone] Jan, [facility] [address] [facility] [id number] [address] [place] [id number] Dec, Type 1 diabetes mellitus wit h complications E10.8 [facility] [address] [facility] [id number] [address] [place] [id number] Dec, [facility] [address] [facility] [id number] [address] [place] [address] Dec, Anemia D64.9 ; Autonomic ayush ropathy G90.9 and Postural hypotension I95.1 [facility] [address] [facility] [id number] [address] [place] [phone] Dec, [facility] [address] [place] [id number] [address] [place] [phone] Nov, Sore throat J02.9 [facility] [address] [place] [id number] [address] [place] [id number] Nov, Type 1 diabetes mellitus wit h complications E10.8 [facility] [address] [place] [id number] [address] [place] [address] Nov, Type 1 diabetes mellitus wit h diabetic nephropathy E10.21 ; Proteinuria, unspecified R80.9 and Chronic kidney disease, unspecified N18.9 [facility] [address] [place] [id number] [address] [place] [address] Nov, [facility] [address] [id number] Nov, Trochanteric bursitis, right hip M70.61 [facility] [address] [address] Nov, [facility] [address] [place] [id number] [address] [place] [address] Oct, [facility] [address] [id number] Oct, [facility] [address] [place] [id number] [address] [place] [phone] Oct, [facility] [address] [place] [id number] [address] [place] [address] Sep, [facility] [address] [place] [id number] [address] [place] [address] Sep, [facility] [address] [address] Sep, Type 2 diabetes mellitus wit h complication E11.8 and Right hip pain M25.551 [facility] [address] [place] [id number] [address] [place] [id number] Sep, [facility] [address] [place] [id number] [address] [place] [id number] Aug, [facility] [address] [id number] [address] [place] [id number] Aug, [facility] [address] [id number] [address] [place] [phone] Aug, [facility] [address] [id number] [address] [place] [id number] Aug, Type 1 diabetes mellitus wit hout complications E10.9 [facility] [address] [id number] [address] [place] [id number] 16 Jul, 2015 [facility] [address] [id number] [address] [place] [id number] 15 Jul, 2015 [facility] [address] [id number] [address] [place] [phone] 14 Jul, 2015 [facility] [address] [id number] [address] [place] [phone] Jun, [facility] [address] [id number] [address] [place] [id number] Jun, [facility] [address] [id number] [address] [place] [id number] Jun, [facility] [address] [id number] [address] [place] [id number] Jun, [facility] [address] [id number] [address] [place] [phone] Jun, [facility] [address] [id number] [address] [place] [phone] Jun, Diabetes mellitus without me ntion of complication, type I [juvenile type], not stated as uncontrolled 250.01 [facility] [address] [id number] [address] [place] [phone] May, [facility] [address] [id number] [address] [place] [address] May, [facility] [address] [id number] [address] [place] [id number] May, [facility] [address] [id number] [address] [place] [id number] May, Autonomic neuropathy 337.9 ; Postural hypotension 458.0 and Anemia 285.9 [facility] [address] [id number] [address] [place] [phone] May, [facility] [address] [id number] [address] [place] [phone] Apr, [facility] [address] [id number] [address] [place] [address], [place] [address] Apr, [facility] [address] [id number] [address] [place] [id number] Apr, [facility] [address] [id number] [address] [place] [id number] Apr, [facility] [address] [id number] [address] [place] [phone] Apr, [facility] [address] [id number] [address] [place] [phone] March, [facility] [address] [id number] [address] [place] [id number] March, [facility] [address] [id number] [address] [place] [phone] March, [facility] [address] [id number] [address] [place] [phone] March, [facility] [address] [id number] [address] [place] [phone] March, [facility] [address] [id number] [address] [place] [id number] Feb, [facility] [address] [id number] [address] [place] [phone] Feb, [facility] [address] [id number] [address] [place] [address], [place] [address] 13 Feb, 2015 [facility] [address] [id number] [address] [place] [address], [place] [address] 30 Jan, 2015 [facility] [address] [id number] [address] [place] [address], [place] [address] 24 Jan, 2015 [facility] [address] [id number] [address] [place] [address], [place] [address] Jan, [facility] [address] [id number] [address] [place] [address], [place] [address] Jan, [facility] [address] [id number] [address] [place] [address], [place] [address] Jan, [facility] [address] [id number] [address] [place] [address], [place] [address] Jan, [facility] [address] [id number] [address] [place] [address], [place] [address] Jan, [facility] [address] [id number] [address] [place] [address], [place] [address] Jan, [facility] [address] [id number] [address] [place] [address], [place] [address] Jan, [facility] [address] [id number] [address] [place] [address], [place] [address] Jan, [facility] [address] [id number] [address] [place] [address], [place] [address] Jan, [facility] [address] [id number] [address] [place] [address], [place] [address] Jan, [facility] [address] [id number] [address] [place] [address], [place] [address] Jan, [facility] [address] [id number] [address] [place] [address], [place] [address] Dec, [facility] [address] [id number] [address] [place] [address], [place] [address] Dec, [facility] [address] [id number] [address] [place] [address], [place] [address] Dec, [facility] [address] [id number] [address] [place] [address], [place] [address] Dec, [facility] [address] [id number] [address] [place] [address], [place] [address] Dec, [facility] [address] [id number] [address] [place] [address], [place] [address] Dec, [facility] [address] [id number] [address] [place] [address], [place] [address] Dec, [facility] [address] [id number] [address] [place] [address], [place] [address] Dec, [facility] [address] [id number] [address] [place] [address], [place] [address] Nov, [facility] [address] [id number] [address] [place] [address], [place] [address] Nov, [facility] [address] [id number] [address] [place] [address], [place] [address] Nov, [facility] [address] [id number] [address] [place] [address], [place] [address] Nov, [facility] [address] [id number] [address] [place] [address], [place] [address] Nov, [facility] [address] [id number] [address] [place] [address], [place] [address] Nov, [facility] [address] [id number] [address] [place] [address], [place] [address] Nov, [facility] [address] [id number] [address] [place] [address], [place] [address] Nov, [facility] [address] [id number] [address] [place] [address], [place] [address] Nov, [facility] [address] [id number] [address] [place] [address], [place] [address] Oct, [facility] [address] [id number] [address] [place] [address], [place] [address] Oct, [facility] [address] [id number] [address] [place] [address], [place] [address] Oct, [facility] [address] [id number] [address] [place] [address], [place] [address] Oct, [facility] [address] [id number] [address] [place] [address], [place] [address] Oct, [facility] [address] [id number] [address] [place] [address], [place] [address] Oct, [facility] [address] [id number] [address] [place] [address], [place] [address] Oct, [facility] [address] [id number] [address] [place] [address], [place] [address] Oct, [facility] [address] [id number] [address] [place] [address], [place] [address] Oct, [facility] [address] [id number] [address] [place] [address], [place] [address] Oct, [facility] [address] [id number] [address] [place] [address], [place] [address] Oct, [facility] [address] [id number] [address] [place] [address], [place] [address] Oct, [facility] [address] [id number] [address] [place] [address], [place] [address] Oct, [facility] [address] [id number] [address] [place] [address], [place] [address] Oct, [facility] [address] [id number] [address] [place] [address], [place] [address] Sep, [facility] [address] [id number] [address] [place] [address], [place] [address] Sep, [facility] [address] [id number] [address] [place] [address], [place] [address] Sep, [facility] [address] [id number] [address] [place] [address], [place] [address] Sep, [facility] [address] [id number] [address] [place] [address], [place] [address] Aug, [facility] [address] [id number] [address] [place] [address], [place] [address] Aug, [facility] [address] [id number] [address] [place] [address], [place] [address] Aug, [facility] [address] [id number] [address] [place] [address], [place] [address] Aug, [facility] [address] [id number] [address] [place] [address], [place] [address] Aug, [facility] [address] [id number] [address] [place] [address] Aug, [facility] [address] [id number] [address] [place] [address], [place] [address] Aug, [facility] [address] [id number] [address] [place] [address] Aug, [facility] [address] [id number] [address] [place] [address] Aug, [facility] [address] [id number] [address] [place] [address] Aug, [facility] [address] [id number] [address] [place] [address], [place] [address] Jul, [facility] [address] [id number] [address] [place] [address], [place] [address] Jul, [facility] [address] [id number] [address] [place] [address] Jul, [facility] [address] [id number] [address] [place] [id number] 29 Sep, 2013 [facility] [address] [id number] [facility] [place] [address] 22 Sep, 2013 [facility] [address] [id number] [address] [place] [address], [place] [address] 22 Sep, 2013 [facility] [address] [id number] [address] [place] [address], [place] [address] 19 Sep, 2013 [facility] [address] [id number] [address] [place] [address], [place] [address] 19 Sep, 2013 [facility] [address] [id number] [address] [place] [address], [place] [address] 11 Jul, 2013 [facility] [address] [id number] [address] [place] [address], [place] [address] 11 Jul, 2013 [facility] [address] [id number] [address] [place] [address], [place] [address] 10 Jul, 2013 [facility] [address] [id number] [address] [place] [address], [place] [address] 10 Jul, 2013 [facility] [address] [id number] [address] [place] [address], [place] [address] 08 Jul, 2013 [facility] [address] [id number] [address] [place] [address], [place] [address] 08 Jul, 2013 [facility] [address] [id number] [address] [place] [address], [place] [address] 03 Sep, 2013 [facility] [address] [id number] [address] [place] [address], [place] [address] 03 Sep, 2013 [facility] [address] [id number] [address] [place] [address], [place] [address] 02 Sep, 2013 [facility] [address] [id number] [address] [place] [address], [place] [address] 02 Jul, 2013 [facility] [address] [id number] [address] [place] [address], [place] [address] 29 Jun, 2013 [facility] [address] [id number] [facility] [place] [address] Jun, [facility] [address] [id number] [facility] [place] [address] Jun, [facility] [address] [id number] [facility] [place] [address] Jun, [facility] [address] [id number] [facility] [place] [address] Jun, [facility] [address] [id number] [facility] [place] [address] Jun, [facility] [address] [id number] [address] [place] [address], [place] [address] Jun, [facility] [address] [id number] [address] [place] [address], [place] [address] Jun, [facility] [address] [id number] [address] [place] [address], [place] [address] Jun, [facility] [address] [id number] [address] [place] [address], [place] [address] Jun, [facility] [address] [id number] [address] [place] [address], [place] [address] Jun, [facility] [address] [id number] [address] [place] [address], [place] [address] Jun, [facility] [address] [id number] [address] [place] [address], [place] [address] Jun, [facility] [address] [id number] [address] [place] [address], [place] [address] Jun, [facility] [address] [id number] [address] [place] [address], [place] [address] Jun, [facility] [address] [id number] [address] [place] [address], [place] [address] May, [facility] [address] [id number] [address] [place] [address], [place] [address] May, [facility] [address] [id number] [facility] [place] [address] May, [facility] [address] [id number] [address] [place] [address], [place] [address] May, [facility] [address] [id number] [address] [place] [address], [place] [address] May, [facility] [address] [id number] [address] [place] [address], [place] [address] May, [facility] [address] [id number] [address] [place] [address], [place] [address] May, [facility] [address] [id number] [address] [place] [address], [place] [address] May, [facility] [address] [id number] [address] [place] [address], [place] [address] Apr, [facility] [address] [id number] [address] [place] [address], [place] [address] Apr, [facility] [address] [id number] [address] [place] [address], [place] [address] Apr, [facility] [address] [id number] [address] [place] [address], [place] [address] Apr, [facility] [address] [id number] [address] [place] [address], [place] [address] Apr, [facility] [address] [id number] [address] [place] [address], [place] [address] Apr, [facility] [address] [id number] [address] [place] [address], [place] [address] Apr, [facility] [address] [id number] [address] [place] [address], [place] [address] Apr, [facility] [address] [id number] [address] [place] [address], [place] [address] Apr, [facility] [address] [id number] [address] [place] [address], [place] [address] Apr, [facility] [address] [id number] [address] [place] [address], [place] [address] Apr, [facility] [address] [id number] [address] [place] [address], [place] [address] Apr, [facility] [address] [id number] [address] [place] [address], [place] [address] Apr, [facility] [address] [id number] [address] [place] [address], [place] [address] Apr, [facility] [address] [id number] [address] [place] [address], [place] [address] Apr, [facility] [address] [id number] [address] [place] [address], [place] [address] Apr, [facility] [address] [id number] [address] [place] [address], [place] [address] Apr, [facility] [address] [id number] [address] [place] [address], [place] [address] Apr, [facility] [address] [id number] [address] [place] [address], [place] [address] March, [facility] [address] [id number] [address] [place] [address], [place] [address] March, [facility] [address] [id number] [address] [place] [address], [place] [address] March, [facility] [address] [id number] [address] [place] [address], [place] [address] March, [facility] [address] [id number] [address] [place] [address], [place] [address] March, [facility] [facility] [address] [id number] [address] [place] [address], [place] [address] March, [facility] [address] [id number] [address] [place] [address], [place] [address] March, [facility] [address] [id number] [address] [place] [address], [place] [address] March, [facility] [address] [id number] [address] [place] [address], [place] [address] March, [facility] [address] [id number] [address] [place] [address], [place] [address] Feb, [facility] [address] [id number] [address] [place] [address], [place] [address] Feb, [facility] [address] [id number] [address] [place] [address], [place] [address] Feb, [facility] [address] [id number] [address] [place] [address], [place] [address] Feb, [facility] [address] [id number] [address] [place] [address], [place] [address] Feb, [facility] [address] [id number] [address] [place] [address], [place] [address] Feb, [facility] [address] [id number] [address] [place] [address], [place] [address] Feb, [facility] [address] [id number] [address] [place] [address], [place] [address] Feb, [facility] [address] [id number] [address] [place] [address], [place] [address] Feb, [facility] [address] [id number] [address] [place] [address], [place] [address] Feb, [facility] [address] [id number] [address] [place] [address], [place] [address] Feb, [facility] [address] [id number] [address] [place] [address], [place] [address] Feb, [facility] [address] [id number] [address] [place] [address], [place] [address] Feb, [facility] [address] [id number] [address] [place] [address], [place] [address] Jan, [facility] [address] [id number] [address] [place] [address], [place] [address] Jan, [facility] [address] [id number] [address] [place] [address], [place] [address] Jan, [facility] [address] [id number] [address] [place] [address], [place] [address] Jan, [facility] [address] [id number] [address] [place] [address], [place] [address] Jan, [facility] [address] [id number] [address] [place] [address], [place] [address] Jan, [facility] [address] [id number] [address] [place] [address], [place] [address] Jan, [facility] [address] [id number] [address] [place] [address], [place] [address] Jan, [facility] [address] [id number] [address] [place] [address], [place] [address] Dec, [facility] [address] [id number] [address] [place] [address], [place] [address] Dec, [facility] [address] [id number] [address] [place] [address], [place] [address] Dec, [facility] [address] [id number] [address] [place] [address], [place] [address] Dec, [facility] [address] [id number] [address] [place] [address], [place] [address] Dec, [facility] [address] [id number] [address] [place] [address], [place] [address] Dec, [facility] [address] [id number] [address] [place] [address], [place] [address] Dec, [facility] [address] [id number] [address] [place] [address], [place] [address] Dec, [facility] [address] [id number] [address] [place] [address], [place] [address] Dec, [facility] [address] [id number] [address] [place] [address], [place] [address] Dec, [facility] [address] [id number] [address] [place] [address], [place] [address] Nov, [facility] [address] [id number] [address] [place] [address], [place] [address] Nov, [facility] [address] [id number] [address] [place] [address], [place] [address] Nov, [facility] [address] [id number] [address] [place] [address], [place] [address] Nov, [facility] [address] [id number] [address] [place] [address], [place] [address] Nov, [facility] [address] [id number] [address] [place] [address], [place] [address] Nov, [facility] [address] [id number] [address] [place] [address], [place] [address] Nov, [facility] [address] [id number] [address] [place] [address], [place] [address] Nov, [facility] [address] [id number] [address] [place] [address], [place] [address] Nov, [facility] [address] [id number] [address] [place] [address], [place] [address] Nov, [facility] [address] [id number] [address] [place] [address], [place] [address] Oct, [facility] [address] [id number] [address] [place] [address], [place] [address] Oct, [facility] [address] [id number] [address] [place] [address], [place] [address] Oct, [facility] [address] [id number] [address] [place] [address] 18 Oct, 2013 [facility] [address] [id number] [address] [place] [address], [place] [address] 17 Oct, 2013 [facility] [address] [id number] [address] [place] [address], [place] [address] 17 Oct, 2013 [facility] [address] [id number] [address] [place] [address], [place] [address] 16 Oct, 2013 [facility] [address] [id number] [address] [place] [address], [place] [address] 16 Oct, 2013 [facility] [address] [id number] [address] [place] [address], [place] [address] 11 Oct, 2013 [facility] [address] [id number] [address] [place] [address], [place] [address] 11 Oct, 2013 [facility] [address] [id number] [address] [place] [address], [place] [address] 04 Oct, 2013 [facility] [address] [id number] [address] [place] [address], [place] [address] 04 Oct, 2013 [facility] [address] [id number] [address] [place] [address], [place] [address] 04 Oct, 2013 [facility] [address] [id number] [address] [place] [address], [place] [address] 04 Oct, 2013 [facility] [address] [id number] [address] [place] [address], [place] [address] 27 Sep, 2013 [facility] [address] [id number] [address] [place] [id number] 27 Sep, 2013 [facility] [address] [id number] [address] [place] [address], [place] [address] 18 Sep, 2013 [facility] [address] [id number] [address] [place] [address], [place] [address] 18 Sep, 2013 [facility] [address] [id number] [address] [place] [address], [place] [address] 13 Sep, 2013 [facility] [address] [id number] [address] [place] [address], [place] [address] 13 Sep, 2013 [facility] [address] [id number] [address] [place] [address], [place] [address] 31 Aug, 2012 [facility] [address] [id number] [address] [place] [address], [place] [address] 31 Aug, 2013 [facility] [address] [id number] [address] [place] [address], [place] [address] 17 Aug, 2012 [facility] [address] [id number] [address] [place] [address], [place] [address] 17 Aug, 2012 [facility] [address] [id number] [address] [place] [address], [place] [address] 10 Aug, 2013 [facility] [address] [id number] [address] [place] [address], [place] [address] 10 Aug, 2012 [facility] [address] [id number] [address] [place] [address], [place] [address] 07 Aug, 2013 [facility] [address] [id number] [address] [place] [address], [place] [address] 02 Aug, 2013 [facility] [address] [id number] [address] [place] [address], [place] [address] 02 Aug, 2013 [facility] [address] [id number] [address] [place] [address], [place] [address] 25 Jul, 2012 [facility] [address] [id number] [address] [place] [address], [place] [address] 23 Sep, 2012 [facility] [address] [id number] [address] [place] [address], [place] [address] 21 Sep, 2012 [facility] [address] [id number] [address] [place] [address], [place] [address] 20 Sep, 2012 [facility] [address] [id number] [address] [place] [address], [place] [address] 18 Sep, 2012 [facility] [address] [id number] [address] [place] [address], [place] [address] 17 Sep, 2012 [facility] [address] [id number] [address] [place] [address], [place] [address] 16 Jul, 2012 [facility] [address] [id number] [address] [place] [address], [place] [address] 11 Jul, 2012 [facility] [address] [id number] [address] [place] [address], [place] [address] 09 Jul, 2012 [facility] [address] [id number] [address] [place] [address], [place] [address] 09 Jul, 2012 [facility] [address] [id number] [address] [place] [address], [place] [address] 06 Jul, 2012 [facility] [address] [id number] [address] [place] [address], [place] [address] 03 Jul, 2012 [facility] [address] [id number] [address] [place] [address], [place] [address] Jun, [facility] [address] [id number] [address] [place] [address], [place] [address] Jun, [facility] [address] [id number] [address] [place] [address], [place] [address] Jun, [facility] [address] [id number] [address] [place] [address], [place] [address] Jun, [facility] [address] [id number] [address] [place] [address], [place] [address] Jun, [facility] [address] [id number] [address] [place] [address], [place] [address] Jun, [facility] [address] [id number] [address] [place] [address], [place] [address] Jun, [facility] [address] [id number] [address] [place] [address], [place] [address] Jun, [facility] [address] [id number] [address] [place] [address], [place] [address] Jun, [facility] [address] [id number] [address] [place] [address], [place] [address] May, [facility] [address] [id number] [address] [place] [address], [place] [address] May, [facility] [address] [id number] [address] [place] [address], [place] [address] May, [facility] [address] [id number] [address] [place] [address], [place] [address] May, [facility] [address] [id number] [address] [place] [address], [place] [address] May, [facility] [address] [id number] [address] [place] [address], [place] [address] May, [facility] [address] [id number] [address] [place] [address], [place] [address] May, [facility] [address] [id number] [address] [place] [address], [place] [address] March, [facility] [address] [id number] [address] [place] [address], [place] [address] March, [facility] [address] [id number] [address] [place] [address], [place] [address] March, [facility] [address] [id number] [address] [place] [address], [place] [address] Dec, [facility] [address] [id number] [address] [place] [address], [place] [address] Nov, [facility] [address] [id number] [address] [place] [address], [place] [address] Aug, [facility] [address] [id number] [address] [place] [address], [place] [address] Aug, [facility] [address] [id number] [address] [place] [address], [place] [address] Jun, [facility] [address] [id number] [address] [place] [address], [place] [address] Jun, [facility] [address] [id number] [address] [place] [address], [place] [address] Jun, [facility] [address] [id number] [address] [place] [address], [place] [address] Jun, [facility] [address] [id number] [address] [place] [address], [place] [address] May, [facility] [address] [id number] [address] [place] [address], [place] [address] May, [facility] [address] [id number] [address] [place] [address], [place] [address] May, [facility] [address] [id number] [address] [place] [address], [place] [address] May, [facility] [address] [id number] [address] [place] [address], [place] [address] May, [facility] [address] [id number] [address] [place] [address], [place] [address] May, [facility] [address] [id number] [address] [place] [address], [place] [address] May, [facility] [address] [id number] [address] [place] [address], [place] [address] Apr, [facility] [address] [id number] [address] [place] [address], [place] [address] Apr, [facility] [address] [id number] [address] [place] [address], [place] [address] Apr, [facility] [address] [id number] [address] [place] [address], [place] [address] Apr, [facility] [address] [id number] [address] [place] [address], [place] [address] March, [facility] [address] [id number] [address] [place] [address], [place] [address] March, [facility] [address] [id number] [address] [place] [address], [place] [address] March, [facility] [address] [id number] [address] [place] [address], [place] [address] March, [facility] [address] [id number] [address] [place] [address], [place] [address] March, [facility] [address] [id number] [address] [place] [address], [place] [address] March, [facility] [address] [id number] [address] [place] [address], [place] [address] March, [facility] [address] [id number] [address] [place] [address], [place] [address] March, [facility] [address] [id number] [address] [place] [address], [place] [address] March, [facility] [address] [id number] [address] [place] [address], [place] [address] Feb, [facility] [address] [id number] [address] [place] [address], [place] [address] Feb, [facility] [address] [id number] [address] [place] [address], [place] [address] Jan, [facility] [address] [id number] [address] [place] [address], [place] [address] Jan, [facility] [address] [id number] [address] [place] [address], [place] [address] Jan, [facility] [address] [id number] [address] [place] [address], [place] [address] 05 Jan, 2012 [facility] [address] [id number] [address] [place] [address], [place] [address] Dec, [facility] [address] [id number] [address] [place] [address], [place] [address] 16 Dec, 2011 [facility] [address] [id number] [address] [place] [address], [place] [address] 15 Dec, 2011 [facility] [address] [id number] [address] [place] [address], [place] [address] 30 Nov, 2011 [facility] [address] [id number] [address] [place] [address], [place] [address] 19 Oct, 2011 [facility] [address] [id number] [address] [place] [address], [place] [address] 15 Oct, 2011 [facility] [address] [id number] [address] [place] [address], [place] [address] 15 Oct, 2011 [facility] [address] [id number] [address] [place] [address], [place] [address] 14 Oct, 2011 [facility] [address] [id number] [address] [place] [address], [place] [address] Oct, [facility] [address] [id number] [address] [place] [address], [place] [address] 12 Oct, 2011 [facility] [address] [id number] [address] [place] [address], [place] [address] Oct, [facility] [address] [id number] [address] [place] [address], [place] [address] Oct, [facility] [address] [id number] [address] [place] [address], [place] [address] Sep, [facility] [address] [id number] [address] [place] [address], [place] [address] 17 Sep, 2011 [facility] [address] [id number] [address] [place] [address], [place] [id number] 14 Sep, 2011 [facility] [address] [id number] [address] [place] [address], [place] [id number] Sep, [facility] [address] [id number] [address] [place] [address], [place] [id number] 10 Sep, 2011 [facility] [address] [id number] [address] [place] [address], [place] [id number] 09 Sep, 2011 [facility] [address] [id number] [address] [place] [address], [place] [address] Sep, [facility] [address] [id number] [address] [place] [id number] Sep, [facility] [address] [id number] [address] [place] [id number] Sep, [facility] [address] [id number] [address] [place] [id number] Aug, [facility] [address] [facility] [id number] [address] [place] [phone] Jul, [facility] [address] [facility] [id number] [address] [place] [id number] Oct, [facility] [address] [facility] [id number] [address] [place] [phone] Oct, [facility] [address] [facility] [id number] [address] [place] [phone] Oct, IMMUNIZATIONS No Known Immunizations SOCIAL HISTORY [...]
--- OUTSIDE RECORDS SUMMARY | 2020-03-19 05:53 | XMS REPORT ---
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 60653363 Problem Chronic kidney disease, unspecified N18.9 Active 160588274 Problem Anemia, unspecified D64.9 Active 133426028 Problem Irritable bowel K58.9 Active 1074 3008 Problem Type 1 diabetes mellitus without complications E10 .9 Active 956995892 Problem Migraine G43.909 Active 20652233 Problem Irritable bowel syndrome with diarrhea K58.0 Active 293962041 Problem Peritoneal dialysis status Z99.2 Act moody 150490194 Problem Essential hypertension I10 Active 01104768 Problem Intractable migraine without aura and with status migr ainosus G43.011 Active 532662148 Problem Type 1 diabetes mellitus with hypoglycemia without coma E10.649 Active 38840586 Problem Type 1 diabetes mellitus with hyperglycemia E10.65 Active 55498328 Problem Dysthymia F34.1 Active 22180304 Problem Chronic kidney disease, stage 4 (severe) N18.4 Active 170750886 Problem Migraine with aura and without status migrainosu s, not intractable G43.109 Active 1478517 Problem Autonomic neuropathy G90.9 Active 322008654 Problem Type 1 diabetes mellitus with complications E10.8 Active 518872484 Problem Menorrhagia with regular cycle N92.0 Active 162356964 Problem Lymphedema I89.0 Active 295128041 Problem Claudication I73.9 Active 5893454 6 Problem Other chronic pain G89.29 Active 8 6183967 Problem Diastolic dysfunction I51.89 Active 2725190 Problem ESRF (end stage renal failure) N18.6 Active 92135386 Problem 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 Active 615038433 Problem Migraine without aura and without status migrain osus, not intractable G43.009 Active 127666458 Problem Type 1 diabetes mellitus with foot ulcer E10.621 Active 70414264877980521 Problem Low back pain M54.5 Active 443161 009 Problem Other insomnia G47.09 Active 93827 2000 Problem Restless legs G25.81 Active 988359 08 Problem Hyperthyroidism E05.90 Active 3448 6009 Problem Moderate episode of recurrent major depressive disorder F33.1 Active 234663431 Problem Primary insomnia F51.01 Active 397 2004 ALLERGIES No Information ENCOUNTERS Encounter Location Date Diagnosis [facility] [address] [facility] [id number] [address] [place] [phone] 15 Apr, 2020 [facility] [address] [address] 28 Jan, 2020 Type 1 diabetes mellitus wit h foot ulcer E10.621 and Non-pressure chronic ulcer of other part of right foot limited to breakdown of skin L97.511 [facility] [address] [place] [id number] [address] [place] [phone] 23 Jan, 2020 Type 1 diabetes mellitus wit h diabetic nephropathy E10.21 [facility] [address] [place] [id number] [address] [place] [phone] 20 Jan, 2020 [facility] [address] [address] 16 Jan, 2020 Migraine without aura and wi thout status migrainosus, not intractable G43.009 and Type 1 diabetes mellitus with hypoglycemia without coma E10.649 [facility] [address] [place] [id number] [address] [place] [address] 11 Jan, 2020 [facility] [address] [place] [id number] [address] [place] [phone] 10 Jan, 2020 Type 1 diabetes mellitus wit h hyperglycemia E10.65 ; Orthostatic hypotension I95.1 and Restless legs G25.81 [facility] [address] [id number] [address] [place] [id number] 06 Dec, 2019 Caries K02.9 and Dental exam ination Z01.20 [place] [id number] [place] [phone] 30 Oct, 2019 Restless legs G25.81 [place] [address] [address] 16 Oct, 2019 Encounter for Medicare darian chauhan wellness exam Z00.00 ; 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 ; Migraine without aura and without status migrainosus, not intractable G43.009 ; Chronic kidney disease, stage 4 (severe) N18.4 ; Claudication I73.9 ; Peritoneal dialysis status Z99.2 ; Diastolic dysfunction I51.89 ; Primary insomnia F51.01 and Burn T30.0 [place] [address] [address] Sep, Moderate episode of recurren t major depressive disorder F33.1 and Primary insomnia F51.01 [place] [address] [address] Aug, Hyperthyroidism E05.90 [place] [address] [address] May, Restless legs G25.81 [place] [address] [address] May, [place] [address] [address] May, [place] [address] [address] May, Type 1 diabetes mellitus wit h hypoglycemia without coma E10.649 ; ESRF (end stage renal failure) N18.6 ; Leg cramps R25.2 ; Restless legs G25.81 and Low back pain M54.5 [place] [address] [place] [id number] [address] [place] [address] 13 Apr, 2019 Low back pain M54.5 [place] [address] [address] Apr, [facility] [address] [id number] [address] [place] [address] March, Low back pain M54.5 [facility] [address] [id number] [address] [place] [address] March, [facility] [address] [facility] [id number] [address] [place] [phone] Feb, Low back pain M54.5 [facility] [address] [id number] [address] [place] [address] Jan, Low back pain M54.5 [facility] [address] [facility] [id number] [address] [place] [address] Jan, [facility] [address] [facility] [id number] [address] [place] [address] Jan, [facility] [address] [facility] [id number] [address] [place] [address] Jan, [facility] [address] [facility] [id number] [address] [place] [address] Dec, Type 1 diabetes mellitus wit h hypoglycemia without coma E10.649 and Low back pain M54.5 [facility] [address] [facility] [id number] [address] [place] [address] Dec, Low back pain M54.5 [facility] [address] [facility] [id number] [address] [place] [address] 13 Dec, 2018 Diastolic dysfunction I51.89 ; Essential hypertension I10 and Chronic kidney disease, stage 4 (severe) N18.4 [facility] [address] [facility] [id number] [address] [place] [address] 11 Dec, 2018 RUQ abdominal pain R10.11 ; Type 1 diabetes mellitus without complications E10.9 ; Therapeutic drug monitoring Z51.81 ; Migraine with aura and without status migrainosus, not intractable G43.109 and Intractable migraine without aura and with status migrainosus G43.011 [place] [address] [facility] [id number] [address] [place] [address] Nov, Low back pain M54.5 [place] [address] [facility] [id number] [address] [place] [address] Nov, [place] [address] [facility] [id number] [address] [place] [address] Nov, Intractable migraine without aura and with status migrainosus G43.011 ; Lymphedema I89.0 ; Pain in right shoulder M25.511 ; Other chronic pain G89.29 ; Irritable bowel syndrome with diarrhea K58.0 ; Type 1 diabetes mellitus without complications E10.9 and Essential hypertension I10 [place] [address] [facility] [id number] [address] [place] [address] Oct, Low back pain M54.5 [place] [address] [place] [id number] [address] [place] [address] Oct, [place] [address] [place] [id number] [address] [place] [address] Oct, Orthostatic hypotension I95. 1 ; Shortness of breath R06.02 ; Leg swelling M79.89 ; Type 1 diabetes mellitus without complications E10.9 and Claudication I73.9 [place] [address] [facility] [id number] [address] [place] [address] Sep, Low back pain M54.5 [place] [address] [place] [id number] [address] [place] [address] Sep, Low back pain M54.5 [place] [address] [facility] [id number] [address] [place] [address] Aug, [place] [address] [place] [id number] [address] [place] [address] Aug, Migraine without aura and wi thout status migrainosus, not intractable G43.009 [place] [address] [facility] [id number] [address] [place] [address] Aug, Low back pain M54.5 [facility] [address] [facility] [id number] [address] [place] [address] Aug, Acute rhinosinusitis J01.90 and Sore throat J02.9 [facility] [address] [facility] [id number] [address] [place] [address] Jul, Low back pain M54.5 [facility] [address] [facility] [id number] [address] [place] [address] Jul, Migraine without aura and wi thout status migrainosus, not intractable G43.009 [facility] [address] [facility] [id number] [address] [place] [address] Jun, Low back pain M54.5 [facility] [address] [facility] [id number] [address] [place] [address] Jun, [facility] [address] [place] [id number] [place] [address] Jun, Orthostatic hypotension I95. 1 ; Shortness of breath R06.02 ; Type 1 diabetes mellitus without complications E10.9 and Leg swelling M79.89 [facility] [address] [place] [id number] [address] [place] [address] Jun, Low back pain M54.5 [facility] [address] [place] [id number] [address] [place] [address] Jun, [facility] [address] [place] [id number] [address] [place] [address] May, Migraine without aura and wi thout status migrainosus, not intractable G43.009 [facility] [address] [facility] [id number] [address] [place] [address] May, Migraine without aura and wi thout status migrainosus, not intractable G43.009 ; Restless legs syndrome G25.81 ; Leg cramps R25.2 ; Chronic kidney disease, unspecified N18.9 ; Postural hypotension I95.1 ; Diarrhea, unspecified type R19.7 and Cough R05 [facility] [address] [id number] [address] [place] [address] May, [facility] [address] [id number] [address] [place] [address] May, [facility] [address] [facility] [id number] [address] [place] [address] May, Orthostatic hypotension I95. 1 ; Shortness of breath R06.02 ; Type 1 diabetes mellitus with complications E10.8 and Leg swelling M79.89 [facility] [address] [id number] [address] [place] [address] May, [facility] [address] [id number] [address] [place] [phone] May, Low back pain M54.5 [facility] [address] [facility] [id number] [address] [place] [address] Apr, Type 1 diabetes mellitus wit h hyperglycemia E10.65 [facility] [address] [id number] [address] [place] [address] Apr, Low back pain M54.5 [facility] [address] [id number] [address] [place] [address] Apr, [facility] [address] [facility] [id number] [address] [place] [address] Apr, [facility] [address] [id number] [address] [place] [address] March, [facility] [address] [facility] [id number] [address] [place] [address] March, Low back pain M54.5 [facility] [address] [id number] [address] [place] [address] March, [facility] [address] [facility] [id number] [address] [place] [address] Feb, [facility] [address] [facility] [id number] [address] [place] [address] Feb, Low back pain M54.5 [facility] [address] [facility] [id number] [address] [place] [address] Jan, Restless legs syndrome G25.8 1 [facility] [address] [place] [id number] [address] [place] [phone] Jan, Low back pain M54.5 [facility] [address] [place] [id number] [address] [place] [phone] Jan, [facility] [address] [place] [id number] [place] [address] Jan, Type 1 diabetes mellitus wit hout complications E10.9 ; Low back pain M54.5 ; Cough R05 ; Diarrhea, unspecified type R19.7 ; Migraine without aura and without status migrainosus, not intractable G43.009 and Uses control Z30.9 [facility] [address] [place] [id number] [address] [place] [address] Dec, Low back pain M54.5 [facility] [address] [place] [id number] [place] [phone] Dec, [facility] [address] [place] [id number] [place] [address] Nov, Well woman exam Z01.419 ; Me norrhagia with regular cycle N92.0 ; Vaginal dryness N89.8 and Migraine with aura and without status migrainosus, not intractable G43.109 [facility] [address] [place] [id number] [address] [place] [address] Nov, [facility] [address] [place] [id number] [address] [place] [phone] Nov, Low back pain M54.5 [facility] [address] [place] [id number] [address] [place] [address] Oct, Low back pain M54.5 [facility] [address] [place] [address] Oct, Migraine without aura and wi thout status migrainosus, not intractable G43.009 [facility] [address] [facility] [id number] [address] [place] [address] Sep, Low back pain M54.5 [facility] [address] [place] [id number] [address] [place] [address] Sep, [facility] [address] [facility] [id number] [address] [place] [address] Sep, Migraine without aura and wi thout status migrainosus, not intractable G43.009 [facility] [address] [place] [id number] [address] [place] [address] Sep, Type 1 diabetes mellitus wit h hypoglycemia without coma E10.649 ; Anemia D64.9 ; Migraine without aura and without status migrainosus, not intractable G43.009 ; Chronic kidney disease, unspecified N18.9 ; Autonomic neuropathy G90.9 and Postural hypotension I95.1 [facility] [address] [place] [id number] [address] [place] [address] Sep, Low back pain M54.5 [facility] [address] [place] [id number] [address] [place] [address] Aug, Low back pain M54.5 [facility] [address] [place] [id number] [address] [place] [address] Jul, [facility] [address] [place] [id number] [address] [place] [address] Jul, Low back pain M54.5 [facility] [address] [facility] [id number] [address] [place] [address] Jun, [facility] [address] [place] [id number] [address] [place] [id number] Jun, Low back pain M54.5 [facility] [address] [place] [id number] [address] [place] [address] Jun, Migraine without aura and wi thout status migrainosus, not intractable G43.009 [facility] [address] [id number] [address] [place] [address] Jun, Type 1 diabetes mellitus wit h hyperglycemia E10.65 ; Dysthymia F34.1 and Migraine without aura and without status migrainosus, not intractable G43.009 [facility] [address] [id number] [address] [place] [address] Jun, [facility] [address] [id number] [address] [place] [address] May, Type 1 diabetes mellitus wit hyperglycemia E10.65 [facility] [address] [facility] [id number] [address] [place] [address] May, Low back pain M54.5 [facility] [address] [id number] [address] [place] [address] May, Type 1 diabetes mellitus wit hyperglycemia E10.65 [facility] [address] [id number] [address] [place] [address] Apr, [facility] [address] [facility] [id number] [address] [place] [address] Apr, Chronic kidney disease, stag e 4 (severe) N18.4 [facility] [address] [facility] [id number] [address] [place] [address] Apr, Low back pain M54.5 [facility] [address] [id number] [address] [place] [phone] March, [facility] [address] [id number] [address] [place] [address] March, Low back pain M54.5 [facility] [address] [facility] [id number] [address] [place] [phone] Feb, [facility] [address] [facility] [id number] [address] [place] [address] Feb, [facility] [address] [facility] [id number] [address] [place] [address] Feb, Low back pain M54.5 [facility] [address] [facility] [id number] [address] [place] [address] Feb, Low back pain M54.5 [facility] [address] [facility] [id number] [address] [place] [address] Feb, Migraine without aura and wi thout status migrainosus, not intractable G43.009 [facility] [address] [facility] [id number] [address] [place] [address] Feb, [facility] [address] [facility] [id number] [address] [place] [phone] Jan, Low back pain M54.5 [facility] [address] [facility] [id number] [address] [place] [address] Jan, Type 1 diabetes mellitus wit hout complications E10.9 ; Anemia D64.9 ; Chronic kidney disease, unspecified N18.9 ; Migraine without aura and without status migrainosus, not intractable G43.009 and Other insomnia G47.09 [facility] [address] [facility] [id number] [address] [place] [address] Jan, [facility] [address] [place] [id number] [address] [place] [phone] Dec, Low back pain M54.5 [facility] [address] [facility] [id number] [address] [place] [address] Dec, [facility] [address] [facility] [id number] [address] [place] [address] Dec, [facility] [address] [place] [id number] [address] [place] [phone] 08 Dec, 2016 Shortness of breath R06.02 ; Type 1 diabetes mellitus without complications E10.9 and Leg swelling M79.89 [facility] [address] [place] [id number] [address] [place] [address] Nov, Low back pain M54.5 [facility] [address] [id number] [address] [place] [phone] Nov, Viral syndrome B34.9 [facility] [address] [id number] [address] [place] [address] Oct, Low back pain M54.5 [facility] [address] [id number] [address] [place] [id number] Oct, [facility] [address] [id number] [address] [place] [phone] Oct, Low back pain M54.5 [facility] [address] [id number] [address] [place] [address] Sep, [facility] [address] [id number] [address] [place] [address] Sep, Fatigue, unspecified type R5 3.83 ; Type 1 diabetes mellitus without complications E10.9 and Anemia D64.9 [facility] [address] [id number] [address] [place] [address] Sep, Low back pain M54.5 [facility] [address] [id number] [address] [place] [phone] Sep, Type 1 diabetes mellitus wit h hyperglycemia E10.65 [facility] [address] [id number] [address] [place] [id number] Aug, Type 1 diabetes mellitus wit hout complications E10.9 [facility] [address] [id number] [address] [place] [phone] Aug, [facility] [address] [id number] [address] [place] [id number] Aug, [facility] [address] [id number] [address] [place] [phone] Jul, [facility] [address] [id number] [address] [place] [id number] 14 Jul, 2016 Low back pain M54.5 [facility] [address] [facility] [id number] [address] [place] [phone] 12 Jul, 2016 Hyperkalemia, diminished anna al excretion E87.5 [facility] [address] [facility] [id number] [address] [place] [id number] 09 Jul, 2016 Hyperkalemia, diminished anna al excretion E87.5 [facility] [address] [facility] [id number] [address] [place] [id number] 30 Jun, 2016 [facility] [address] [facility] [id number] [address] [place] [id number] Jun, Low back pain M54.5 [facility] [address] [facility] [id number] [address] [place] [address] Jun, Anemia D64.9 ; Autonomic ayush ropathy G90.9 and Postural hypotension I95.1 [facility] [address] [facility] [id number] [address] [place] [address] Jun, [facility] [address] [facility] [id number] [address] [place] [address] May, Type 1 diabetes mellitus wit h complications E10.8 and Anemia D64.9 [facility] [address] [facility] [id number] [address] [place] [address] May, Low back pain M54.5 [facility] [address] [facility] [id number] [address] [place] [address] Apr, [facility] [address] [facility] [id number] [address] [place] [address] Apr, Low back pain M54.5 [facility] [address] [facility] [id number] [address] [place] [address] Apr, [facility] [address] [facility] [id number] [address] [place] [address] Apr, [facility] [address] [facility] [id number] [address] [place] [address] March, Low back pain M54.5 and Othe r chronic pain G89.29 [facility] [address] [facility] [id number] [address] [place] [address] March, Type 1 diabetes mellitus wit hout complications E10.9 [facility] [address] [facility] [id number] [address] [place] [address] March, [facility] [address] [facility] [id number] [address] [place] [address] March, [facility] [address] [facility] [id number] [address] [place] [address] Feb, [facility] [address] [facility] [id number] [address] [place] [address] Feb, Type 1 diabetes mellitus wit hout complications E10.9 [facility] [address] [facility] [id number] [address] [place] [address] Feb, Trochanteric bursitis, right hip M70.61 [facility] [address] [facility] [id number] [address] [place] [address] Jan, [facility] [address] [facility] [id number] [address] [place] [address] Jan, [facility] [address] [facility] [id number] [address] [place] [address] Dec, Type 1 diabetes mellitus wit h complications E10.8 [facility] [address] [facility] [id number] [address] [place] [address] Dec, [facility] [address] [facility] [id number] [address] [place] [address] Dec, Anemia D64.9 ; Autonomic ayush ropathy G90.9 and Postural hypotension I95.1 [facility] [address] [facility] [id number] [address] [place] [address] Dec, [facility] [address] [place] [id number] [address] [place] [address] Nov, Sore throat J02.9 [facility] [address] [place] [id number] [address] [place] [address] Nov, Type 1 diabetes mellitus wit h complications E10.8 [facility] [address] [place] [id number] [address] [place] [address] Nov, Type 1 diabetes mellitus wit h diabetic nephropathy E10.21 ; Proteinuria, unspecified R80.9 and Chronic kidney disease, unspecified N18.9 [facility] [address] [place] [id number] [address] [place] [address] Nov, [facility] [address] [address] Nov, Trochanteric bursitis, right hip M70.61 [facility] [address] [address] Nov, [facility] [address] [place] [id number] [address] [place] [address] Oct, [facility] [address] [address] Oct, [facility] [address] [place] [id number] [address] [place] [address] Oct, [facility] [address] [place] [id number] [address] [place] [address] Sep, [facility] [address] [place] [id number] [address] [place] [address] Sep, [facility] [address] [address] Sep, Type 2 diabetes mellitus wit h complication E11.8 and Right hip pain M25.551 [facility] [address] [place] [id number] [address] [place] [address] Sep, [facility] [address] [place] [id number] [address] [place] [address] Aug, [facility] [address] [id number] [address] [place] [address] Aug, [facility] [address] [id number] [address] [place] [address] Aug, [facility] [address] [id number] [address] [place] [address] Aug, Type 1 diabetes mellitus wit hout complications E10.9 [facility] [address] [id number] [address] [place] [address] 16 Jul, 2015 [facility] [address] [id number] [address] [place] [address] 15 Jul, 2015 [facility] [address] [id number] [address] [place] [address] 14 Jul, 2015 [facility] [address] [id number] [address] [place] [address] Jun, [facility] [address] [id number] [address] [place] [address] Jun, [facility] [address] [id number] [address] [place] [address] Jun, [facility] [address] [id number] [address] [place] [address] Jun, [facility] [address] [id number] [address] [place] [address] Jun, [facility] [address] [id number] [address] [place] [address] Jun, Diabetes mellitus without me ntion of complication, type I [juvenile type], not stated as uncontrolled 250.01 [facility] [address] [id number] [address] [place] [address] May, [facility] [address] [id number] [address] [place] [address] May, [facility] [address] [id number] [address] [place] [address] May, [facility] [address] [id number] [address] [place] [address] May, Autonomic neuropathy 337.9 ; Postural hypotension 458.0 and Anemia 285.9 [facility] [address] [id number] [address] [place] [address] May, [facility] [address] [id number] [address] [place] [address] Apr, [facility] [address] [id number] [address] [place] [address], [place] [address] Apr, [facility] [address] [id number] [address] [place] [address] Apr, [facility] [address] [id number] [address] [place] [address] Apr, [facility] [address] [id number] [address] [place] [address] Apr, [facility] [address] [id number] [address] [place] [address] March, [facility] [address] [id number] [address] [place] [address] March, [facility] [address] [id number] [address] [place] [address] March, [facility] [address] [id number] [address] [place] [address] March, [facility] [address] [id number] [address] [place] [address] March, [facility] [address] [id number] [address] [place] [address] Feb, [facility] [address] [id number] [address] [place] [address] Feb, [facility] [address] [id number] [address] [place] [address], [place] [address] 13 Feb, 2015 [facility] [address] [id number] [address] [place] [address], [place] [address] 30 Jan, 2015 [facility] [address] [id number] [address] [place] [address], [place] [address] 24 Jan, 2015 [facility] [address] [id number] [address] [place] [address], [place] [address] Jan, [facility] [address] [id number] [address] [place] [address], [place] [address] Jan, [facility] [address] [id number] [address] [place] [address], [place] [address] Jan, [facility] [address] [id number] [address] [place] [address], [place] [address] Jan, [facility] [address] [id number] [address] [place] [address], [place] [address] Jan, [facility] [address] [id number] [address] [place] [address], [place] [address] Jan, [facility] [address] [id number] [address] [place] [address], [place] [address] Jan, [facility] [address] [id number] [address] [place] [address], [place] [address] Jan, [facility] [address] [id number] [address] [place] [address], [place] [address] Jan, [facility] [address] [id number] [address] [place] [address], [place] [address] Jan, [facility] [address] [id number] [address] [place] [address], [place] [address] Jan, [facility] [address] [id number] [address] [place] [address], [place] [address] Dec, [facility] [address] [id number] [address] [place] [address], [place] [address] Dec, [facility] [address] [id number] [address] [place] [address], [place] [address] Dec, [facility] [address] [id number] [address] [place] [address], [place] [address] Dec, [facility] [address] [id number] [address] [place] [address], [place] [address] Dec, [facility] [address] [id number] [address] [place] [address], [place] [address] Dec, [facility] [address] [id number] [address] [place] [address], [place] [address] Dec, [facility] [address] [id number] [address] [place] [address], [place] [address] Dec, [facility] [address] [id number] [address] [place] [address], [place] [address] Nov, [facility] [address] [id number] [address] [place] [address], [place] [address] Nov, [facility] [address] [id number] [address] [place] [address], [place] [address] Nov, [facility] [address] [id number] [address] [place] [address], [place] [address] Nov, [facility] [address] [id number] [address] [place] [address], [place] [address] Nov, [facility] [address] [id number] [address] [place] [address], [place] [address] Nov, [facility] [address] [id number] [address] [place] [address], [place] [address] Nov, [facility] [address] [id number] [address] [place] [address], [place] [address] Nov, [facility] [address] [id number] [address] [place] [address], [place] [address] Nov, [facility] [address] [id number] [address] [place] [address], [place] [address] Oct, [facility] [address] [id number] [address] [place] [address], [place] [address] Oct, [facility] [address] [id number] [address] [place] [address], [place] [address] Oct, [facility] [address] [id number] [address] [place] [address], [place] [address] Oct, [facility] [address] [id number] [address] [place] [address], [place] [address] Oct, [facility] [address] [id number] [address] [place] [address], [place] [address] Oct, [facility] [address] [id number] [address] [place] [address], [place] [address] Oct, [facility] [address] [id number] [address] [place] [address], [place] [address] Oct, [facility] [address] [id number] [address] [place] [address], [place] [address] Oct, [facility] [address] [id number] [address] [place] [address], [place] [address] Oct, [facility] [address] [id number] [address] [place] [address], [place] [address] Oct, [facility] [address] [id number] [address] [place] [address], [place] [address] Oct, [facility] [address] [id number] [address] [place] [address], [place] [address] Oct, [facility] [address] [id number] [address] [place] [address], [place] [address] Oct, [facility] [address] [id number] [address] [place] [address], [place] [address] Sep, [facility] [address] [id number] [address] [place] [address], [place] [address] Sep, [facility] [address] [id number] [address] [place] [address], [place] [address] Sep, [facility] [address] [id number] [address] [place] [address], [place] [address] Sep, [facility] [address] [id number] [address] [place] [address], [place] [address] Aug, [facility] [address] [id number] [address] [place] [address], [place] [address] Aug, [facility] [address] [id number] [address] [place] [address], [place] [address] Aug, [facility] [address] [id number] [address] [place] [address], [place] [address] Aug, [facility] [address] [id number] [address] [place] [address], [place] [address] Aug, [facility] [address] [id number] [address] [place] [address] Aug, [facility] [address] [id number] [address] [place] [address], [place] [address] Aug, [facility] [address] [id number] [address] [place] [address] Aug, [facility] [address] [id number] [address] [place] [address] Aug, [facility] [address] [id number] [address] [place] [address] Aug, [facility] [address] [id number] [address] [place] [address], [place] [address] Jul, [facility] [address] [id number] [address] [place] [address], [place] [address] Jul, [facility] [address] [id number] [address] [place] [address] Jul, [facility] [address] [id number] [address] [place] [address] 29 Sep, 2013 [facility] [address] [id number] [facility] [place] [facility] [place] [address] 22 Sep, 2013 [facility] [address] [id number] [address] [place] [address], [place] [address] 22 Sep, 2013 [facility] [address] [id number] [address] [place] [address], [place] [address] 19 Sep, 2013 [facility] [address] [id number] [address] [place] [address], [place] [address] 19 Sep, 2013 [facility] [address] [id number] [address] [place] [address], [place] [address] 11 Jul, 2013 [facility] [address] [id number] [address] [place] [address], [place] [address] 11 Jul, 2013 [facility] [address] [id number] [address] [place] [address], [place] [address] 10 Jul, 2013 [facility] [address] [id number] [address] [place] [address], [place] [address] 10 Jul, 2013 [facility] [address] [id number] [address] [place] [address], [place] [address] 08 Jul, 2013 [facility] [address] [id number] [address] [place] [address], [place] [address] 08 Jul, 2013 [facility] [address] [id number] [address] [place] [address], [place] [address] 03 Sep, 2013 [facility] [address] [id number] [address] [place] [address], [place] [address] 03 Sep, 2013 [facility] [address] [id number] [address] [place] [address], [place] [address] 02 Sep, 2013 [facility] [address] [id number] [address] [place] [address], [place] [address] 02 Jul, 2013 [facility] [address] [id number] [address] [place] [address], [place] [address] 29 Jun, 2013 [facility] [address] [id number] [facility] [place] [address] Jun, [facility] [address] [id number] [facility] [place] [address] Jun, [facility] [address] [id number] [facility] [place] [address] Jun, [facility] [address] [id number] [facility] [place] [address] Jun, [facility] [address] [id number] [facility] [place] [address] Jun, [facility] [address] [id number] [address] [place] [address], [place] [address] Jun, [facility] [address] [id number] [address] [place] [address], [place] [address] Jun, [facility] [address] [id number] [address] [place] [address], [place] [address] Jun, [facility] [address] [id number] [address] [place] [address], [place] [address] Jun, [facility] [address] [id number] [address] [place] [address], [place] [address] Jun, [facility] [address] [id number] [address] [place] [address], [place] [address] Jun, [facility] [address] [id number] [address] [place] [address], [place] [address] Jun, [facility] [address] [id number] [address] [place] [address], [place] [address] Jun, [facility] [address] [id number] [address] [place] [address], [place] [address] Jun, [facility] [address] [id number] [address] [place] [address], [place] [address] May, [facility] [address] [id number] [address] [place] [address], [place] [address] May, [facility] [address] [id number] [facility] [place] [address] May, [facility] [address] [id number] [address] [place] [address], [place] [address] May, [facility] [address] [id number] [address] [place] [address], [place] [address] May, [facility] [address] [id number] [address] [place] [address], [place] [address] May, [facility] [address] [id number] [address] [place] [address], [place] [address] May, [facility] [address] [id number] [address] [place] [address], [place] [address] May, [facility] [address] [id number] [address] [place] [address], [place] [address] Apr, [facility] [address] [id number] [address] [place] [address], [place] [address] Apr, [facility] [address] [id number] [address] [place] [address], [place] [address] Apr, [facility] [address] [id number] [address] [place] [address], [place] [address] Apr, [facility] [address] [id number] [address] [place] [address], [place] [address] Apr, [facility] [address] [id number] [address] [place] [address], [place] [address] Apr, [facility] [address] [id number] [address] [place] [address], [place] [address] Apr, [facility] [address] [id number] [address] [place] [address], [place] [address] Apr, [facility] [address] [id number] [address] [place] [address], [place] [address] Apr, [facility] [address] [id number] [address] [place] [address], [place] [address] Apr, [facility] [address] [id number] [address] [place] [address], [place] [address] Apr, [facility] [address] [id number] [address] [place] [address], [place] [address] Apr, [facility] [address] [id number] [address] [place] [address], [place] [address] Apr, [facility] [address] [id number] [address] [place] [address], [place] [address] Apr, [facility] [address] [id number] [address] [place] [address], [place] [address] Apr, [facility] [address] [id number] [address] [place] [address], [place] [address] Apr, [facility] [address] [id number] [address] [place] [address], [place] [address] Apr, [facility] [address] [id number] [address] [place] [address], [place] [address] Apr, [facility] [address] [id number] [address] [place] [address], [place] [address] March, [facility] [address] [id number] [address] [place] [address], [place] [address] March, [facility] [address] [id number] [address] [place] [address], [place] [address] March, [facility] [address] [id number] [address] [place] [address], [place] [address] March, [facility] [address] [id number] [address] [place] [address], [place] [address] March, [facility] [address] [id number] [address] [place] [address], [place] [address] March, [facility] [address] [id number] [address] [place] [address], [place] [address] March, [facility] [address] [id number] [address] [place] [address], [place] [address] March, [facility] [address] [id number] [address] [place] [address], [place] [address] March, [facility] [address] [id number] [address] [place] [address], [place] [address] Feb, [facility] [address] [id number] [address] [place] [address], [place] [address] Feb, [facility] [address] [id number] [address] [place] [address], [place] [address] Feb, [facility] [address] [id number] [address] [place] [address], [place] [address] Feb, [facility] [address] [id number] [address] [place] [address], [place] [address] Feb, [facility] [address] [id number] [address] [place] [address], [place] [address] Feb, [facility] [address] [id number] [address] [place] [address], [place] [address] Feb, [facility] [address] [id number] [address] [place] [address], [place] [address] Feb, [facility] [address] [id number] [address] [place] [address], [place] [address] Feb, [facility] [address] [id number] [address] [place] [address], [place] [address] Feb, [facility] [address] [id number] [address] [place] [address], [place] [address] Feb, [facility] [address] [id number] [address] [place] [address], [place] [address] Feb, [facility] [address] [id number] [address] [place] [address], [place] [address] Feb, [facility] [address] [id number] [address] [place] [address], [place] [address] Jan, [facility] [address] [id number] [address] [place] [address], [place] [address] Jan, [facility] [address] [id number] [address] [place] [address], [place] [address] Jan, [facility] [address] [id number] [address] [place] [address], [place] [address] Jan, [facility] [address] [id number] [address] [place] [address], [place] [address] Jan, [facility] [address] [id number] [address] [place] [address], [place] [address] Jan, [facility] [address] [id number] [address] [place] [address], [place] [address] Jan, [facility] [address] [id number] [address] [place] [address], [place] [address] Jan, [facility] [address] [id number] [address] [place] [address], [place] [address] Dec, [facility] [address] [id number] [address] [place] [address], [place] [address] Dec, [facility] [address] [id number] [address] [place] [address], [place] [address] Dec, [facility] [address] [id number] [address] [place] [address], [place] [address] Dec, [facility] [address] [id number] [address] [place] [address], [place] [address] Dec, [facility] [address] [id number] [address] [place] [address], [place] [address] Dec, [facility] [address] [id number] [address] [place] [address], [place] [address] Dec, [facility] [address] [id number] [address] [place] [address], [place] [address] Dec, [facility] [address] [id number] [address] [place] [address], [place] [address] Dec, [facility] [address] [id number] [address] [place] [address], [place] [address] Dec, [facility] [address] [id number] [address] [place] [address], [place] [address] Nov, [facility] [address] [id number] [address] [place] [address], [place] [address] Nov, [facility] [address] [id number] [address] [place] [address], [place] [address] Nov, [facility] [address] [id number] [address] [place] [address], [place] [address] Nov, [facility] [address] [id number] [address] [place] [address], [place] [address] Nov, [facility] [address] [id number] [address] [place] [address], [place] [address] Nov, [facility] [address] [id number] [address] [place] [address], [place] [address] Nov, [facility] [address] [id number] [address] [place] [address], [place] [address] Nov, [facility] [address] [id number] [address] [place] [address], [place] [address] Nov, [facility] [address] [id number] [address] [place] [address], [place] [address] Nov, [facility] [address] [id number] [address] [place] [address], [place] [address] Oct, [facility] [address] [id number] [address] [place] [address], [place] [address] Oct, [facility] [address] [id number] [address] [place] [address], [place] [address] Oct, [facility] [address] [id number] [address] [place] [address] 18 Oct, 2013 [facility] [address] [id number] [address] [place] [address], [place] [address] 17 Oct, 2013 [facility] [address] [id number] [address] [place] [address], [place] [address] 17 Oct, 2013 [facility] [address] [id number] [address] [place] [address], [place] [address] 16 Oct, 2013 [facility] [address] [id number] [address] [place] [address], [place] [address] 16 Oct, 2013 [facility] [address] [id number] [address] [place] [address], [place] [address] 11 Oct, 2013 [facility] [address] [id number] [address] [place] [address], [place] [address] 11 Oct, 2013 [facility] [address] [id number] [address] [place] [address], [place] [address] 04 Oct, 2013 [facility] [address] [id number] [address] [place] [address], [place] [address] 04 Oct, 2013 [facility] [address] [id number] [address] [place] [address], [place] [address] 04 Oct, 2013 [facility] [address] [id number] [address] [place] [address], [place] [address] 04 Oct, 2013 [facility] [address] [id number] [address] [place] [address], [place] [address] 27 Sep, 2013 [facility] [address] [id number] [address] [place] [address] 27 Sep, 2013 [facility] [address] [id number] [address] [place] [address], [place] [address] 18 Sep, 2013 [facility] [address] [id number] [address] [place] [address], [place] [address] 18 Sep, 2013 [facility] [address] [id number] [address] [place] [address], [place] [address] 13 Sep, 2013 [facility] [address] [id number] [address] [place] [address], [place] [address] 13 Sep, 2013 [facility] [address] [id number] [address] [place] [address], [place] [address] 31 Aug, 2012 [facility] [address] [id number] [address] [place] [address], [place] [address] 31 Aug, 2013 [facility] [address] [id number] [address] [place] [address], [place] [address] 17 Aug, 2012 [facility] [address] [id number] [address] [place] [address], [place] [address] 17 Aug, 2012 [facility] [address] [id number] [address] [place] [address], [place] [address] 10 Aug, 2013 [facility] [address] [id number] [address] [place] [address], [place] [address] 10 Aug, 2012 [facility] [address] [id number] [address] [place] [address], [place] [address] 07 Aug, 2013 [facility] [address] [id number] [address] [place] [address], [place] [address] 02 Aug, 2013 [facility] [address] [id number] [address] [place] [address], [place] [address] 02 Aug, 2013 [facility] [address] [id number] [address] [place] [address], [place] [address] 25 Jul, 2012 [facility] [address] [id number] [address] [place] [address], [place] [address] 23 Sep, 2012 [facility] [address] [id number] [address] [place] [address], [place] [address] 21 Sep, 2012 [facility] [address] [id number] [address] [place] [address], [place] [address] 20 Sep, 2012 [facility] [address] [id number] [address] [place] [address], [place] [address] 18 Sep, 2012 [facility] [address] [id number] [address] [place] [address], [place] [address] 17 Sep, 2012 [facility] [address] [id number] [address] [place] [address], [place] [address] 16 Jul, 2012 [facility] [address] [id number] [address] [place] [address], [place] [address] 11 Jul, 2012 [facility] [address] [id number] [address] [place] [address], [place] [address] 09 Jul, 2012 [facility] [address] [id number] [address] [place] [address], [place] [address] 09 Jul, 2012 [facility] [address] [id number] [address] [place] [address], [place] [address] 06 Jul, 2012 [facility] [address] [id number] [address] [place] [address], [place] [address] 03 Jul, 2012 [facility] [address] [id number] [address] [place] [address], [place] [address] Jun, [facility] [address] [id number] [address] [place] [address], [place] [address] Jun, [facility] [address] [id number] [address] [place] [address], [place] [address] Jun, [facility] [address] [id number] [address] [place] [address], [place] [address] Jun, [facility] [address] [id number] [address] [place] [address], [place] [address] Jun, [facility] [address] [id number] [address] [place] [address], [place] [address] Jun, [facility] [address] [id number] [address] [place] [address], [place] [address] Jun, [facility] [address] [id number] [address] [place] [address], [place] [address] Jun, [facility] [address] [id number] [address] [place] [address], [place] [address] Jun, [facility] [address] [id number] [address] [place] [address], [place] [address] May, [facility] [address] [id number] [address] [place] [address], [place] [address] May, [facility] [address] [id number] [address] [place] [address], [place] [address] May, [facility] [address] [id number] [address] [place] [address], [place] [address] May, [facility] [address] [id number] [address] [place] [address], [place] [address] May, [facility] [address] [id number] [address] [place] [address], [place] [address] May, [facility] [address] [id number] [address] [place] [address], [place] [address] May, [facility] [address] [id number] [address] [place] [address], [place] [address] March, [facility] [address] [id number] [address] [place] [address], [place] [address] March, [facility] [address] [id number] [address] [place] [address], [place] [address] March, [facility] [address] [id number] [address] [place] [address], [place] [address] Dec, [facility] [address] [id number] [address] [place] [address], [place] [address] Nov, [facility] [address] [id number] [address] [place] [address], [place] [address] Aug, [facility] [address] [id number] [address] [place] [address], [place] [address] Aug, [facility] [address] [id number] [address] [place] [address], [place] [address] Jun, [facility] [address] [id number] [address] [place] [address], [place] [address] Jun, [facility] [address] [id number] [address] [place] [address], [place] [address] Jun, [facility] [address] [id number] [address] [place] [address], [place] [address] Jun, [facility] [address] [id number] [address] [place] [address], [place] [address] May, [facility] [address] [id number] [address] [place] [address], [place] [address] May, [facility] [address] [id number] [address] [place] [address], [place] [address] May, [facility] [address] [id number] [address] [place] [address], [place] [address] May, [facility] [address] [id number] [address] [place] [address], [place] [address] May, [facility] [address] [id number] [address] [place] [address], [place] [address] May, [facility] [address] [id number] [address] [place] [address], [place] [address] May, [facility] [address] [id number] [address] [place] [address], [place] [address] Apr, [facility] [address] [id number] [address] [place] [address], [place] [address] Apr, [facility] [address] [id number] [address] [place] [address], [place] [address] Apr, [facility] [address] [id number] [address] [place] [address], [place] [address] Apr, [facility] [address] [id number] [address] [place] [address], [place] [address] March, [facility] [address] [id number] [address] [place] [address], [place] [address] March, [facility] [address] [id number] [address] [place] [address], [place] [address] March, [facility] [address] [id number] [address] [place] [address], [place] [address] March, [facility] [address] [id number] [address] [place] [address], [place] [address] March, [facility] [address] [id number] [address] [place] [address], [place] [address] March, [facility] [address] [id number] [address] [place] [address], [place] [address] March, [facility] [address] [id number] [address] [place] [address], [place] [address] March, [facility] [address] [id number] [address] [place] [address], [place] [address] March, [facility] [address] [id number] [address] [place] [address], [place] [address] Feb, [facility] [address] [id number] [address] [place] [address], [place] [address] Feb, [facility] [address] [id number] [address] [place] [address], [place] [address] Jan, [facility] [address] [id number] [address] [place] [address], [place] [address] Jan, [facility] [address] [id number] [address] [place] [address], [place] [address] Jan, [facility] [address] [id number] [address] [place] [address], [place] [address] 05 Jan, 2012 [facility] [address] [id number] [address] [place] [address], [place] [address] Dec, [facility] [address] [id number] [address] [place] [address], [place] [address] 16 Dec, 2011 [facility] [address] [id number] [address] [place] [address], [place] [address] 15 Dec, 2011 [facility] [address] [id number] [address] [place] [address], [place] [address] 30 Nov, 2011 [facility] [address] [id number] [address] [place] [address], [place] [address] 19 Oct, 2011 [facility] [address] [id number] [address] [place] [address], [place] [address] 15 Oct, 2011 [facility] [address] [id number] [address] [place] [address], [place] [address] 15 Oct, 2011 [facility] [address] [id number] [address] [place] [address], [place] [address] 14 Oct, 2011 [facility] [address] [id number] [address] [place] [address], [place] [address] Oct, [facility] [address] [id number] [address] [place] [address], [place] [address] 12 Oct, 2011 [facility] [address] [id number] [address] [place] [address], [place] [address] Oct, [facility] [address] [id number] [address] [place] [address], [place] [address] Oct, [facility] [address] [id number] [address] [place] [address], [place] [address] Sep, [facility] [address] [id number] [address] [place] [address], [place] [address] 17 Sep, 2011 [facility] [address] [id number] [address] [place] [address], [place] [address] 14 Sep, 2011 [facility] [address] [id number] [address] [place] [address], [place] [address] Sep, [facility] [address] [id number] [address] [place] [address], [place] [address] 10 Sep, 2011 [facility] [address] [id number] [address] [place] [address], [place] [address] 09 Sep, 2011 [facility] [address] [id number] [address] [place] [address], [place] [address] Sep, [facility] [address] [id number] [address] [place] [address] Sep, [facility] [address] [id number] [address] [place] [address] Sep, [facility] [address] [id number] [address] [place] [address] Aug, [facility] [address] [facility] [id number] [address] [place] [id number] Jul, [facility] [address] [facility] [id number] [address] [place] [id number] Oct, [facility] [address] [facility] [id number] [address] [place] [phone] Oct, [facility] [address] [facility] [id number] [address] [place] [phone] Oct, IMMUNIZATIONS No Known Immunizations SOCIAL HISTORY [...]
--- OUTSIDE RECORDS SUMMARY | 2020-03-19 05:54 | XMS REPORT ---
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 87710521 Problem Chronic kidney disease, unspecified N18.9 Active 428114452 Problem Anemia, unspecified D64.9 Active 371692678 Problem Irritable bowel K58.9 Active 1074 3008 Problem Type 1 diabetes mellitus without complications E10 .9 Active 729678147 Problem Migraine G43.909 Active 67373530 Problem Irritable bowel syndrome with diarrhea K58.0 Active 497587773 Problem Peritoneal dialysis status Z99.2 Act moody 272114422 Problem Essential hypertension I10 Active 42854187 Problem Intractable migraine without aura and with status migr ainosus G43.011 Active 294536600 Problem Type 1 diabetes mellitus with hypoglycemia without coma E10.649 Active 52717822 Problem Type 1 diabetes mellitus with hyperglycemia E10.65 Active 57675095 Problem Dysthymia F34.1 Active 67921100 Problem Chronic kidney disease, stage 4 (severe) N18.4 Active 713078458 Problem Migraine with aura and without status migrainosu s, not intractable G43.109 Active 4763031 Problem Autonomic neuropathy G90.9 Active 528465323 Problem Type 1 diabetes mellitus with complications E10.8 Active 185001522 Problem Menorrhagia with regular cycle N92.0 Active 763218414 Problem Lymphedema I89.0 Active 122926003 Problem Claudication I73.9 Active 6761824 6 Problem Other chronic pain G89.29 Active 8 8094678 Problem Diastolic dysfunction I51.89 Active 3914154 Problem ESRF (end stage renal failure) N18.6 Active 02630096 Problem 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 Active 800298601 Problem Migraine without aura and without status migrain osus, not intractable G43.009 Active 699853262 Problem Type 1 diabetes mellitus with foot ulcer E10.621 Active [id number] Problem Low back pain M54.5 Active 616970 009 Problem Other insomnia G47.09 Active 58492 2000 Problem Restless legs G25.81 Active 836228 08 Problem Hyperthyroidism E05.90 Active 3448 6009 Problem Moderate episode of recurrent major depressive disorder F33.1 Active 655075230 Problem Primary insomnia F51.01 Active 397 2004 ALLERGIES No Information ENCOUNTERS Encounter Location Date Diagnosis [facility] [id number] [place] [id number] 15 Apr, 2020 [facility] [address] [facility] [id number] [address] [place] [phone] Jan, Type 1 diabetes mellitus wit h foot ulcer E10.621 and Non-pressure chronic ulcer of other part of right foot limited to breakdown of skin L97.511 [facility] [id number] [place] [phone] 23 Jan, 2020 Type 1 diabetes mellitus wit h diabetic nephropathy E10.21 [facility] [id number] [place] [id number] 20 Jan, 2020 [facility] [id number] [place] [id number] 16 Jan, 2020 Migraine without aura and wi thout status migrainosus, not intractable G43.009 and Type 1 diabetes mellitus with hypoglycemia without coma E10.649 [facility] [address] [facility] [id number] [address] [place] [phone] 11 Jan, 2020 [facility] [address] [facility] [id number] [address] [place] [id number] 10 Jan, 2020 Type 1 diabetes mellitus wit h hyperglycemia E10.65 ; Orthostatic hypotension I95.1 and Restless legs G25.81 [facility] [address] [id number] [address] [place] [id number] 06 Dec, 2019 Caries K02.9 and Dental exam ination Z01.20 [place] [address] [phone] 30 Oct, 2019 Restless legs G25.81 [place] [address] [id number] [place] [id number] 16 Oct, 2019 Encounter for Medicare darian [facility] wellness exam Z00.00 ; 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 ; Migraine without aura and without status migrainosus, not intractable G43.009 ; Chronic kidney disease, stage 4 (severe) N18.4 ; Claudication I73.9 ; Peritoneal dialysis status Z99.2 ; Diastolic dysfunction I51.89 ; Primary insomnia F51.01 and Burn T30.0 [place] [address] [place] [id number] [place] [phone] Sep, Moderate episode of recurren t major depressive disorder F33.1 and Primary insomnia F51.01 [place] [address] [place] [id number] [place] [phone] Aug, Hyperthyroidism E05.90 [place] [address] [id number] May, Restless legs G25.81 [place] [address] [id number] May, [place] [address] [phone] May, [place] [address] [id number] [place] [phone] May, Type 1 diabetes mellitus wit h hypoglycemia without coma E10.649 ; ESRF (end stage renal failure) N18.6 ; Leg cramps R25.2 ; Restless legs G25.81 and Low back pain M54.5 [place] [address] [id number] [place] [phone] Apr, Low back pain M54.5 [facility] [address] [id number] [address] [place] [phone] Apr, [facility] [address] [id number] [address] [place] [phone] March, Low back pain M54.5 [facility] [address] [facility] [id number] [address] [place] [phone] March, [facility] [address] [id number] [address] [place] [phone] Feb, Low back pain M54.5 [facility] [address] [id number] [address] [place] [phone] Jan, Low back pain M54.5 [facility] [address] [id number] [address] [place] [id number] Jan, [facility] [address] [facility] [id number] [address] [place] [phone] Jan, [facility] [address] [id number] [address] [place] [phone] Jan, [facility] [address] [facility] [id number] [address] [place] [phone] Dec, Type 1 diabetes mellitus wit h hypoglycemia without coma E10.649 and Low back pain M54.5 [facility] [address] [facility] [id number] [address] [place] [id number] Dec, Low back pain M54.5 [facility] [address] [facility] [id number] [address] [place] [id number] 13 Dec, 2018 Diastolic dysfunction I51.89 ; Essential hypertension I10 and Chronic kidney disease, stage 4 (severe) N18.4 [facility] [address] [facility] [id number] [address] [place] [id number] 11 Dec, 2018 RUQ abdominal pain R10.11 ; Type 1 diabetes mellitus without complications E10.9 ; Therapeutic drug monitoring Z51.81 ; Migraine with aura and without status migrainosus, not intractable G43.109 and Intractable migraine without aura and with status migrainosus G43.011 [facility] [address] [facility] [id number] [address] [place] [phone] Nov, Low back pain M54.5 [facility] [address] [facility] [id number] [address] [place] [id number] Nov, [facility] [address] [facility] [id number] [address] [place] [phone] Nov, Intractable migraine without aura and with status migrainosus G43.011 ; Lymphedema I89.0 ; Pain in right shoulder M25.511 ; Other chronic pain G89.29 ; Irritable bowel syndrome with diarrhea K58.0 ; Type 1 diabetes mellitus without complications E10.9 and Essential hypertension I10 [place] [address] [place] [id number] [place] [id number] Oct, Low back pain M54.5 [place] [address] [place] [id number] [place] [id number] Oct, [facility] [address] [facility] [id number] [address] [place] [id number] Oct, Orthostatic hypotension I95. 1 ; Shortness of breath R06.02 ; Leg swelling M79.89 ; Type 1 diabetes mellitus without complications E10.9 and Claudication I73.9 [place] [address] [facility] [id number] [address] [place] [id number] Sep, Low back pain M54.5 [facility] [address] [facility] [id number] [address] [place] [id number] Sep, Low back pain M54.5 [facility] [id number] [place] [phone] Aug, [place] [address] [facility] [id number] [address] [place] [id number] Aug, Migraine without aura and wi thout status migrainosus, not intractable G43.009 [place] [address] [facility] [id number] [address] [place] [phone] 05 Aug, 2018 Low back pain M54.5 [facility] [address] [facility] [id number] [address] [place] [phone] 05 Aug, 2018 Acute rhinosinusitis J01.90 and Sore throat J02.9 [facility] [address] [facility] [id number] [address] [place] [id number] 28 Jul, 2018 Low back pain M54.5 [facility] [address] [facility] [id number] [address] [place] [id number] Jul, Migraine without aura and wi thout status migrainosus, not intractable G43.009 [facility] [address] [facility] [id number] [address] [place] [id number] Jun, Low back pain M54.5 [facility] [address] [facility] [id number] [address] [place] [id number] Jun, [facility] [address] [facility] [id number] [address] [place] [id number] Jun, Orthostatic hypotension I95. 1 ; Shortness of breath R06.02 ; Type 1 diabetes mellitus without complications E10.9 and Leg swelling M79.89 [facility] [address] [facility] [id number] [address] [place] [phone] Jun, Low back pain M54.5 [facility] [address] [facility] [id number] [address] [place] [phone] Jun, [facility] [address] [facility] [id number] [address] [place] [id number] May, Migraine without aura and wi thout status migrainosus, not intractable G43.009 [facility] [address] [facility] [id number] [address] [place] [id number] May, Migraine without aura and wi thout status migrainosus, not intractable G43.009 ; Restless legs syndrome G25.81 ; Leg cramps R25.2 ; Chronic kidney disease, unspecified N18.9 ; Postural hypotension I95.1 ; Diarrhea, unspecified type R19.7 and Cough R05 [facility] [address] [facility] [id number] [address] [place] [phone] May, [facility] [address] [facility] [id number] [address] [place] [phone] May, [facility] [address] [facility] [id number] [address] [place] [phone] May, Orthostatic hypotension I95. 1 ; Shortness of breath R06.02 ; Type 1 diabetes mellitus with complications E10.8 and Leg swelling M79.89 [facility] [address] [facility] [id number] [address] [place] [phone] May, [facility] [address] [id number] [place] [phone] May, Low back pain M54.5 [facility] [address] [facility] [id number] [address] [place] [phone] Apr, Type 1 diabetes mellitus wit h hyperglycemia E10.65 [facility] [address] [facility] [id number] [address] [place] [id number] Apr, Low back pain M54.5 [facility] [address] [facility] [id number] [address] [place] [phone] Apr, [facility] [address] [facility] [id number] [address] [place] [phone] Apr, [facility] [address] [id number] [address] [place] [phone] March, [facility] [address] [facility] [id number] [address] [place] [id number] March, Low back pain M54.5 [facility] [address] [facility] [id number] [address] [place] [phone] March, [facility] [id number] [place] [phone] Feb, [facility] [address] [facility] [id number] [address] [place] [id number] Feb, Low back pain M54.5 [facility] [address] [facility] [id number] [address] [place] [id number] Jan, Restless legs syndrome G25.8 1 [facility] [address] [facility] [id number] [address] [place] [phone] Jan, Low back pain M54.5 [facility] [address] [facility] [id number] [address] [place] [phone] Jan, [facility] [address] [facility] [id number] [address] [place] [phone] Jan, Type 1 diabetes mellitus wit hout complications E10.9 ; Low back pain M54.5 ; Cough R05 ; Diarrhea, unspecified type R19.7 ; Migraine without aura and without status migrainosus, not intractable G43.009 and Uses control Z30.9 [facility] [address] [facility] [id number] [address] [place] [id number] Dec, Low back pain M54.5 [facility] [address] [facility] [id number] [address] [place] [phone] Dec, [facility] [address] [facility] [id number] [address] [place] [id number] Nov, Well woman exam Z01.419 ; Me norrhagia with regular cycle N92.0 ; Vaginal dryness N89.8 and Migraine with aura and without status migrainosus, not intractable G43.109 [facility] [address] [facility] [id number] [address] [place] [id number] Nov, [facility] [address] [facility] [id number] [address] [place] [id number] Nov, Low back pain M54.5 [facility] [address] [facility] [id number] [address] [place] [id number] Oct, Low back pain M54.5 [facility] [address] [id number] [address] [place] [id number] Oct, Migraine without aura and wi thout status migrainosus, not intractable G43.009 [facility] [address] [id number] [address] [place] [phone] Sep, Low back pain M54.5 [facility] [address] [id number] [address] [place] [id number] Sep, [facility] [address] [facility] [id number] [address] [place] [id number] Sep, Migraine without aura and wi thout status migrainosus, not intractable G43.009 [facility] [address] [id number] [address] [place] [id number] Sep, Type 1 diabetes mellitus wit h hypoglycemia without coma E10.649 ; Anemia D64.9 ; Migraine without aura and without status migrainosus, not intractable G43.009 ; Chronic kidney disease, unspecified N18.9 ; Autonomic neuropathy G90.9 and Postural hypotension I95.1 [facility] [address] [id number] [address] [place] [id number] Sep, Low back pain M54.5 [facility] [address] [facility] [id number] [address] [place] [phone] Aug, Low back pain M54.5 [facility] [address] [id number] [address] [place] [id number] Jul, [facility] [address] [id number] [address] [place] [id number] Jul, Low back pain M54.5 [facility] [address] [facility] [id number] [address] [place] [id number] Jun, [facility] [address] [facility] [id number] [address] [place] [id number] Jun, Low back pain M54.5 [facility] [address] [id number] [address] [place] [id number] 02 Jun, 2017 Migraine without aura and wi thout status migrainosus, not intractable G43.009 [facility] [address] [id number] [address] [place] [id number] 02 Jun, 2017 Type 1 diabetes mellitus wit h hyperglycemia E10.65 ; Dysthymia F34.1 and Migraine without aura and without status migrainosus, not intractable G43.009 [facility] [address] [id number] [address] [place] [phone] Jun, [facility] [address] [facility] [id number] [address] [place] [phone] May, Type 1 diabetes mellitus wit h hyperglycemia E10.65 [facility] [address] [facility] [id number] [address] [place] [phone] May, Low back pain M54.5 [facility] [address] [facility] [id number] [address] [place] [phone] May, Type 1 diabetes mellitus wit h hyperglycemia E10.65 [facility] [address] [facility] [id number] [address] [place] [id number] Apr, [facility] [address] [facility] [id number] [address] [place] [id number] Apr, Chronic kidney disease, stag e 4 (severe) N18.4 [facility] [address] [facility] [id number] [address] [place] [id number] Apr, Low back pain M54.5 [facility] [address] [facility] [id number] [address] [place] [phone] March, [facility] [address] [facility] [id number] [address] [place] [phone] March, Low back pain M54.5 [facility] [address] [facility] [id number] [address] [place] [id number] Feb, [facility] [address] [facility] [id number] [address] [place] [id number] Feb, [facility] [address] [address] [id number] [place] [phone] Feb, Low back pain M54.5 [facility] [address] [id number] [place] [id number] Feb, Low back pain M54.5 [facility] [address] [place] [id number] [place] [id number] Feb, Migraine without aura and wi thout status migrainosus, not intractable G43.009 [facility] [address] [place] [id number] [place] [phone] Feb, [facility] [address] [place] [id number] [place] [phone] Jan, Low back pain M54.5 [facility] [address] [place] [id number] [place] [phone] Jan, Type 1 diabetes mellitus wit hout complications E10.9 ; Anemia D64.9 ; Chronic kidney disease, unspecified N18.9 ; Migraine without aura and without status migrainosus, not intractable G43.009 and Other insomnia G47.09 [facility] [address] [place] [id number] [place] [id number] Jan, [facility] [address] [place] [id number] [place] [phone] Dec, Low back pain M54.5 [facility] [address] [place] [id number] [place] [id number] Dec, [facility] [address] [place] [id number] [place] [id number] Dec, [facility] [address] [place] [id number] [place] [id number] Dec, Shortness of breath R06.02 ; Type 1 diabetes mellitus without complications E10.9 and Leg swelling M79.89 [facility] [address] [id number] [address] [place] [id number] Nov, Low back pain M54.5 [facility] [address] [id number] [address] [place] [phone] Nov, Viral syndrome B34.9 [facility] [address] [id number] [address] [place] [id number] Oct, Low back pain M54.5 [facility] [address] [id number] [address] [place] [id number] Oct, [facility] [address] [facility] [id number] [address] [place] [phone] Oct, Low back pain M54.5 [facility] [address] [facility] [id number] [address] [place] [id number] Sep, [facility] [address] [facility] [id number] [address] [place] [id number] Sep, Fatigue, unspecified type R5 3.83 ; Type 1 diabetes mellitus without complications E10.9 and Anemia D64.9 [facility] [address] [id number] [address] [place] [id number] Sep, Low back pain M54.5 [facility] [address] [facility] [id number] [address] [place] [id number] Sep, Type 1 diabetes mellitus wit h hyperglycemia E10.65 [facility] [address] [id number] [address] [place] [phone] Aug, Type 1 diabetes mellitus wit hout complications E10.9 [facility] [address] [id number] [address] [place] [id number] Aug, [facility] [address] [facility] [id number] [address] [place] [phone] Aug, [facility] [address] [facility] [id number] [address] [place] [id number] Jul, [facility] [address] [facility] [id number] [address] [place] [phone] 14 Jul, 2016 Low back pain M54.5 [facility] [address] [facility] [id number] [address] [place] [phone] 12 Jul, 2016 Hyperkalemia, diminished anna al excretion E87.5 [facility] [address] [facility] [id number] [address] [place] [phone] 09 Jul, 2016 Hyperkalemia, diminished anna al excretion E87.5 [facility] [address] [facility] [id number] [address] [place] [phone] Jun, [facility] [address] [facility] [id number] [address] [place] [phone] 17 Jun, 2016 Low back pain M54.5 [facility] [address] [facility] [id number] [address] [place] [phone] Jun, Anemia D64.9 ; Autonomic ayush ropathy G90.9 and Postural hypotension I95.1 [facility] [address] [facility] [id number] [address] [place] [phone] Jun, [facility] [facility] [address] [facility] [id number] [address] [place] [id number] May, Type 1 diabetes mellitus wit h complications E10.8 and Anemia D64.9 [facility] [address] [facility] [id number] [address] [place] [phone] May, Low back pain M54.5 [facility] [address] [facility] [id number] [address] [place] [phone] Apr, [facility] [address] [facility] [id number] [address] [place] [phone] Apr, Low back pain M54.5 [facility] [address] [facility] [id number] [address] [place] [phone] Apr, [facility] [address] [facility] [id number] [address] [place] [phone] Apr, [facility] [address] [facility] [id number] [address] [place] [phone] March, Low back pain M54.5 and Othe r chronic pain G89.29 [facility] [address] [facility] [id number] [address] [place] [phone] March, Type 1 diabetes mellitus wit hout complications E10.9 [facility] [address] [facility] [id number] [address] [place] [phone] March, [facility] [address] [facility] [id number] [address] [place] [phone] March, [facility] [address] [facility] [id number] [address] [place] [phone] Feb, [facility] [address] [facility] [id number] [address] [place] [phone] Feb, Type 1 diabetes mellitus wit hout complications E10.9 [facility] [address] [facility] [id number] [address] [place] [phone] Feb, Trochanteric bursitis, right hip M70.61 [facility] [address] [facility] [id number] [address] [place] [phone] Jan, [facility] [address] [facility] [id number] [address] [place] [id number] Jan, [facility] [address] [facility] [id number] [address] [place] [id number] Dec, Type 1 diabetes mellitus wit h complications E10.8 [facility] [address] [facility] [id number] [address] [place] [phone] Dec, [facility] [address] [place] [id number] [address] [place] [phone] Dec, Anemia D64.9 ; Autonomic ayush ropathy G90.9 and Postural hypotension I95.1 [facility] [address] [facility] [id number] [address] [place] [phone] Dec, [facility] [address] [facility] [id number] [address] [place] [phone] Nov, Sore throat J02.9 [facility] [address] [facility] [id number] [address] [place] [phone] Nov, Type 1 diabetes mellitus wit h complications E10.8 [facility] [address] [facility] [id number] [address] [place] [phone] Nov, Type 1 diabetes mellitus wit h diabetic nephropathy E10.21 ; Proteinuria, unspecified R80.9 and Chronic kidney disease, unspecified N18.9 [facility] [address] [facility] [id number] [address] [place] [phone] Nov, [facility] [address] [place] [id number] [place] [address] Nov, Trochanteric bursitis, right hip M70.61 [facility] [address] [place] [id number] [address] [place] [phone] Nov, [facility] [address] [facility] [id number] [address] [place] [phone] Oct, [facility] [address] [place] [id number] [address] [place] [phone] Oct, [facility] [address] [place] [id number] [address] [place] [phone] Oct, [facility] [address] [facility] [id number] [address] [place] [phone] Sep, [facility] [address] [facility] [id number] [address] [place] [phone] Sep, [facility] [address] [place] [id number] [address] [place] [phone] Sep, Type 2 diabetes mellitus wit h complication E11.8 and Right hip pain M25.551 [facility] [address] [place] [id number] [address] [place] [phone] Sep, [facility] [address] [id number] [address] [place] [phone] Aug, [facility] [address] [id number] [address] [place] [phone] Aug, [facility] [address] [id number] [address] [place] [phone] Aug, [facility] [address] [id number] [address] [place] [phone] Aug, Type 1 diabetes mellitus wit hout complications E10.9 [facility] [address] [id number] [address] [place] [id number] 16 Jul, 2015 [facility] [address] [id number] [address] [place] [phone] 15 Jul, 2015 [facility] [address] [id number] [address] [place] [phone] Jul, [facility] [address] [id number] [address] [place] [phone] Jun, [facility] [address] [id number] [address] [place] [phone] Jun, [facility] [address] [id number] [address] [place] [id number] Jun, [facility] [address] [id number] [address] [place] [phone] Jun, [facility] [address] [id number] [address] [place] [phone] Jun, [facility] [address] [id number] [address] [place] [phone] Jun, Diabetes mellitus without me ntion of complication, type I [juvenile type], not stated as uncontrolled 250.01 [facility] [address] [id number] [address] [place] [id number] May, [facility] [address] [id number] [address] [place] [phone] May, [facility] [address] [id number] [address] [place] [phone] May, [facility] [address] [id number] [address] [place] [phone] May, Autonomic neuropathy 337.9 ; Postural hypotension 458.0 and Anemia 285.9 [facility] [address] [id number] [address] [place] [phone] May, [facility] [address] [id number] [address] [place] [phone] Apr, [facility] [address] [id number] [address] [place] [phone] Apr, [facility] [address] [id number] [address] [place] [phone] Apr, [facility] [address] [id number] [address] [place] [id number] Apr, [facility] [address] [id number] [address] [place] [phone] Apr, [facility] [address] [id number] [address] [place] [phone] March, [facility] [address] [id number] [address] [place] [phone] March, [facility] [address] [id number] [address] [place] [phone] March, [facility] [address] [id number] [address] [place] [phone] March, [facility] [address] [id number] [address] [place] [phone] March, [facility] [address] [id number] [address] [place] [phone] Feb, [facility] [address] [id number] [address] [place] [address], [place] [address] 14 Feb, 2015 [facility] [address] [id number] [address] [place] [address], [place] [phone] 13 Feb, 2015 [facility] [address] [id number] [address] [place] [address], [place] [address] 30 Jan, 2015 [facility] [address] [id number] [address] [place] [address], [place] [phone] 24 Jan, 2015 [facility] [address] [id number] [address] [place] [address], [place] [address] 24 Jan, 2015 [facility] [address] [id number] [address] [place] [address], [place] [address] Jan, [facility] [address] [id number] [address] [place] [address], [place] [phone] Jan, [facility] [address] [id number] [address] [place] [address], [place] [address] Jan, [facility] [address] [id number] [address] [place] [address], [place] [address] Jan, [facility] [address] [id number] [address] [place] [address], [place] [address] Jan, [facility] [address] [id number] [address] [place] [address], [place] [address] Jan, [facility] [address] [id number] [address] [place] [address], [place] [address] Jan, [facility] [address] [id number] [address] [place] [address], [place] [address] Jan, [facility] [address] [id number] [address] [place] [address], [place] [address] Jan, [facility] [address] [id number] [address] [place] [address], [place] [address] Jan, [facility] [address] [id number] [address] [place] [address], [place] [phone] Dec, [facility] [address] [id number] [address] [place] [address], [place] [address] Dec, [facility] [address] [id number] [address] [place] [address], [place] [address] Dec, [facility] [address] [id number] [address] [place] [address], [place] [address] Dec, 2014 [facility] [address] [id number] [address] [place] [address], [place] [address] Dec, 2014 [facility] [address] [id number] [address] [place] [address], [place] [address] Dec, [facility] [address] [id number] [address] [place] [address], [place] [address] Dec, [facility] [address] [id number] [address] [place] [address], [place] [address] Dec, [facility] [address] [id number] [address] [place] [address], [place] [address] Nov, [facility] [address] [id number] [address] [place] [address], [place] [address] Nov, [facility] [address] [id number] [address] [place] [address], [place] [address] Nov, [facility] [address] [id number] [address] [place] [address], [place] [address] Nov, [facility] [address] [id number] [address] [place] [address], [place] [address] Nov, [facility] [address] [id number] [address] [place] [address], [place] [address] Nov, [facility] [address] [id number] [address] [place] [address], [place] [address] Nov, [facility] [address] [id number] [address] [place] [address], [place] [address] Nov, [facility] [address] [id number] [address] [place] [address], [place] [address] Nov, [facility] [address] [id number] [address] [place] [address], [place] [address] Oct, [facility] [address] [id number] [address] [place] [address], [place] [address] Oct, [facility] [address] [id number] [address] [place] [address], [place] [address] Oct, [facility] [address] [id number] [address] [place] [address], [place] [address] Oct, [facility] [address] [id number] [address] [place] [address], [place] [address] Oct, [facility] [address] [id number] [address] [place] [address], [place] [address] Oct, [facility] [address] [id number] [address] [place] [address], [place] [address] Oct, [facility] [address] [id number] [address] [place] [address], [place] [address] Oct, [facility] [address] [id number] [address] [place] [address], [place] [address] Oct, [facility] [address] [id number] [address] [place] [address], [place] [address] Oct, [facility] [address] [id number] [address] [place] [address], [place] [address] Oct, [facility] [address] [id number] [address] [place] [address], [place] [address] Oct, [facility] [address] [id number] [address] [place] [address], [place] [address] Oct, [facility] [address] [id number] [address] [place] [address], [place] [address] Oct, [facility] [address] [id number] [address] [place] [address], [place] [address] Sep, [facility] [address] [id number] [address] [place] [address], [place] [address] Sep, [facility] [address] [id number] [address] [place] [address], [place] [address] Sep, [facility] [address] [id number] [address] [place] [address], [place] [address] Sep, [facility] [address] [id number] [address] [place] [address], [place] [address] Aug, [facility] [address] [id number] [address] [place] [address], [place] [address] Aug, [facility] [address] [id number] [address] [place] [address], [place] [address] Aug, [facility] [address] [id number] [address] [place] [address], [place] [address] Aug, [facility] [address] [id number] [address] [place] [address], [place] [address] Aug, [facility] [address] [id number] [address] [place] [address], [place] [address] Aug, [facility] [address] [id number] [address] [place] [address], [place] [address] Aug, [facility] [address] [id number] [address] [place] [address], [place] [address] Aug, [facility] [address] [id number] [address] [place] [address], [place] [address] Aug, [facility] [address] [id number] [address] [place] [address], [place] [address] Aug, [facility] [address] [id number] [address] [place] [address], [place] [address] Jul, [facility] [address] [id number] [address] [place] [address], [place] [address] Jul, [facility] [address] [id number] [address] [place] [address], [place] [address] 29 Sep, 2013 [facility] [address] [id number] [facility] [place] [address] 29 Sep, 2013 [facility] [address] [id number] [address] [place] [address], [place] [address] 22 Sep, 2013 [facility] [address] [id number] [address] [place] [address], [place] [address] 22 Sep, 2013 [facility] [address] [id number] [address] [place] [address], [place] [address] 19 Sep, 2013 [facility] [address] [id number] [address] [place] [address], [place] [address] 19 Sep, 2013 [facility] [address] [id number] [address] [place] [address], [place] [address] 11 Sep, 2013 [facility] [address] [id number] [address] [place] [address], [place] [address] 11 Sep, 2013 [facility] [address] [id number] [address] [place] [address], [place] [address] 10 Sep, 2013 [facility] [address] [id number] [address] [place] [address], [place] [address] 10 Sep, 2013 [facility] [address] [id number] [address] [place] [address], [place] [address] 08 Sep, 2013 [facility] [address] [id number] [address] [place] [address], [place] [address] 08 Sep, 2013 [facility] [address] [id number] [address] [place] [address], [place] [address] 03 Sep, 2013 [facility] [address] [id number] [address] [place] [address], [place] [address] 03 Sep, 2013 [facility] [address] [id number] [address] [place] [address], [place] [address] 02 Sep, 2013 [facility] [address] [id number] [address] [place] [address], [place] [address] 02 Sep, 2013 [facility] [address] [id number] [facility] [place] [address] Jun, [facility] [address] [id number] [facility] [place] [address] Jun, [facility] [address] [id number] [facility] [place] [address] Jun, [facility] [address] [id number] [address] [place] [address], [place] [address] Jun, [facility] [address] [id number] [address] [place] [address], [place] [address] Jun, [facility] [address] [id number] [address] [place] [address], [place] [address] Jun, [facility] [address] [id number] [address] [place] [address], [place] [address] Jun, [facility] [address] [id number] [address] [place] [address], [place] [address] Jun, [facility] [address] [id number] [address] [place] [address], [place] [address] Jun, [facility] [address] [id number] [address] [place] [address], [place] [address] Jun, [facility] [address] [id number] [address] [place] [address], [place] [address] Jun, [facility] [address] [id number] [address] [place] [address], [place] [address] Jun, [facility] [address] [id number] [address] [place] [address], [place] [address] Jun, [facility] [address] [id number] [address] [place] [address], [place] [address] Jun, [facility] [address] [id number] [address] [place] [address], [place] [address] Jun, [facility] [address] [id number] [address] [place] [address], [place] [address] May, [facility] [address] [id number] [address] [place] [address], [place] [address] May, [facility] [address] [id number] [address] [place] [address], [place] [address] May, [facility] [address] [id number] [address] [place] [address], [place] [address] May, [facility] [address] [id number] [address] [place] [address], [place] [address] May, [facility] [address] [id number] [address] [place] [address], [place] [address] May, [facility] [address] [id number] [address] [place] [address], [place] [address] May, [facility] [address] [id number] [address] [place] [address], [place] [address] May, [facility] [address] [id number] [address] [place] [address], [place] [address] Apr, [facility] [address] [id number] [address] [place] [address], [place] [address] Apr, [facility] [address] [id number] [address] [place] [address], [place] [address] Apr, [facility] [address] [id number] [address] [place] [address], [place] [address] Apr, [facility] [address] [id number] [address] [place] [address], [place] [address] Apr, [facility] [address] [id number] [address] [place] [address], [place] [address] Apr, [facility] [address] [id number] [address] [place] [address], [place] [address] Apr, [facility] [address] [id number] [address] [place] [address], [place] [address] Apr, [facility] [address] [id number] [address] [place] [address], [place] [address] Apr, [facility] [address] [id number] [facility] [place] [address] Apr, [facility] [address] [id number] [address] [place] [address], [place] [address] Apr, [facility] [address] [id number] [address] [place] [address], [place] [address] Apr, [facility] [address] [id number] [address] [place] [address], [place] [address] Apr, [facility] [address] [id number] [address] [place] [address], [place] [address] Apr, [facility] [address] [id number] [address] [place] [address], [place] [address] Apr, [facility] [address] [id number] [address] [place] [address], [place] [address] Apr, [facility] [address] [id number] [address] [place] [address], [place] [address] Apr, [facility] [address] [id number] [address] [place] [address], [place] [address] Apr, [facility] [address] [id number] [address] [place] [address], [place] [address] March, [facility] [address] [id number] [address] [place] [address], [place] [address] March, [facility] [address] [id number] [address] [place] [address], [place] [address] March, [facility] [address] [id number] [address] [place] [address], [place] [address] March, [facility] [address] [id number] [address] [place] [address], [place] [address] March, [facility] [address] [id number] [address] [place] [address], [place] [address] March, [facility] [address] [id number] [address] [place] [address], [place] [address] March, [facility] [address] [id number] [address] [place] [address], [place] [address] March, [facility] [address] [id number] [address] [place] [address], [place] [address] March, [facility] [address] [id number] [address] [place] [address], [place] [address] Feb, [facility] [address] [id number] [address] [place] [address], [place] [address] Feb, [facility] [address] [id number] [address] [place] [address], [place] [address] Feb, [facility] [address] [id number] [address] [place] [address], [place] [address] Feb, [facility] [address] [id number] [address] [place] [address], [place] [address] Feb, [facility] [address] [id number] [address] [place] [address], [place] [address] Feb, [facility] [address] [id number] [address] [place] [address], [place] [address] Feb, [facility] [address] [id number] [address] [place] [address], [place] [address] Feb, [facility] [address] [id number] [address] [place] [address], [place] [address] Feb, [facility] [address] [id number] [address] [place] [address], [place] [address] Feb, [facility] [address] [id number] [address] [place] [address], [place] [address] Feb, [facility] [address] [id number] [address] [place] [address], [place] [address] Feb, [facility] [address] [id number] [address] [place] [address], [place] [address] Feb, [facility] [address] [id number] [facility] [place] [address] Jan, [facility] [address] [id number] [address] [place] [address], [place] [address] Jan, [facility] [address] [id number] [address] [place] [address], [place] [address] Jan, [facility] [address] [id number] [address] [place] [address], [place] [address] Jan, [facility] [address] [id number] [address] [place] [address], [place] [address] Jan, [facility] [address] [id number] [address] [place] [address], [place] [address] Jan, [facility] [address] [id number] [address] [place] [address], [place] [address] Jan, [facility] [address] [id number] [address] [place] [address], [place] [address] Jan, [facility] [address] [id number] [address] [place] [address], [place] [address] Dec, [facility] [address] [id number] [address] [place] [address], [place] [address] Dec, [facility] [address] [id number] [address] [place] [address], [place] [address] Dec, [facility] [address] [id number] [address] [place] [address], [place] [address] Dec, [facility] [address] [id number] [address] [place] [address], [place] [address] Dec, [facility] [address] [id number] [address] [place] [address], [place] [address] Dec, [facility] [address] [id number] [address] [place] [address], [place] [address] Dec, [facility] [address] [id number] [address] [place] [address], [place] [address] 10 Dec, 2013 [facility] [address] [id number] [address] [place] [address], [place] [address] Dec, [facility] [address] [id number] [address] [place] [address], [place] [address] Dec, [facility] [address] [id number] [address] [place] [address], [place] [address] Nov, [facility] [address] [id number] [address] [place] [address], [place] [address] Nov, [facility] [address] [id number] [address] [place] [address], [place] [address] Nov, [facility] [address] [id number] [address] [place] [address], [place] [address] Nov, [facility] [address] [id number] [address] [place] [address], [place] [address] Nov, [facility] [address] [id number] [address] [place] [address], [place] [address] Nov, [facility] [address] [id number] [address] [place] [address], [place] [address] Nov, [facility] [address] [id number] [address] [place] [address], [place] [address] Nov, [facility] [address] [id number] [address] [place] [address], [place] [address] Nov, [facility] [address] [id number] [address] [place] [address], [place] [address] Nov, [facility] [address] [id number] [address] [place] [address], [place] [address] Oct, [facility] [address] [id number] [address] [place] [address], [place] [address] Oct, [facility] [address] [id number] [address] [place] [address] [address] 18 Oct, 2013 [facility] [address] [id number] [address] [place] [address], [place] [address] 18 Oct, 2013 [facility] [address] [id number] [address] [place] [address], [place] [address] 17 Oct, 2013 [facility] [address] [id number] [address] [place] [address], [place] [address] 17 Oct, 2013 [facility] [address] [id number] [address] [place] [address], [place] [address] 16 Oct, 2013 [facility] [address] [id number] [address] [place] [address], [place] [address] 16 Oct, 2013 [facility] [address] [id number] [address] [place] [address], [place] [address] Oct, [facility] [address] [id number] [address] [place] [address], [place] [address] Oct, [facility] [address] [id number] [address] [place] [address], [place] [address] 04 Oct, 2013 [facility] [address] [id number] [address] [place] [address], [place] [address] Oct, [facility] [address] [id number] [address] [place] [address], [place] [address] 04 Oct, 2013 [facility] [address] [id number] [address] [place] [address], [place] [address] Oct, [facility] [address] [id number] [address] [place] [address] Sep, [facility] [address] [id number] [address] [place] [address], [place] [address] Sep, [facility] [address] [id number] [address] [place] [address], [place] [address] Sep, [facility] [address] [id number] [address] [place] [address], [place] [address] Sep, [facility] [address] [id number] [address] [place] [address], [place] [address] 13 Sep, 2013 [facility] [address] [id number] [address] [place] [address], [place] [address] Sep, [facility] [address] [id number] [address] [place] [address], [place] [address] 31 Aug, 2013 [facility] [address] [id number] [address] [place] [address], [place] [address] 31 Aug, 2012 [facility] [address] [id number] [address] [place] [address], [place] [address] 17 Aug, 2013 [facility] [address] [id number] [address] [place] [address], [place] [address] 17 Aug, 2012 [facility] [address] [id number] [address] [place] [address], [place] [address] 10 Aug, 2013 [facility] [address] [id number] [address] [place] [address], [place] [address] 10 Aug, 2013 [facility] [address] [id number] [address] [place] [address], [place] [address] 07 Aug, 2013 [facility] [address] [id number] [address] [place] [address], [place] [address] 02 Aug, 2013 [facility] [address] [id number] [address] [place] [address], [place] [address] 02 Aug, 2013 [facility] [address] [id number] [address] [place] [address], [place] [address] 25 Jul, 2012 [facility] [address] [id number] [address] [place] [address], [place] [address] 23 Sep, 2012 [facility] [address] [id number] [address] [place] [address], [place] [address] 21 Sep, 2012 [facility] [address] [id number] [address] [place] [address], [place] [address] 20 Sep, 2012 [facility] [address] [id number] [address] [place] [address], [place] [address] 18 Sep, 2012 [facility] [address] [id number] [address] [place] [address], [place] [address] 17 Jul, 2012 [facility] [address] [id number] [address] [place] [address], [place] [address] 16 Jul, 2012 [facility] [address] [id number] [address] [place] [address], [place] [address] 11 Jul, 2012 [facility] [address] [id number] [address] [place] [address], [place] [address] 09 Jul, 2012 [facility] [address] [id number] [address] [place] [address], [place] [address] 09 Jul, 2012 [facility] [address] [id number] [address] [place] [address], [place] [address] 06 Jul, 2012 [facility] [address] [id number] [address] [place] [address], [place] [address] 03 Jul, 2012 [facility] [address] [id number] [address] [place] [address], [place] [address] Jun, [facility] [address] [id number] [address] [place] [address], [place] [address] Jun, [facility] [address] [id number] [address] [place] [address], [place] [address] Jun, [facility] [address] [id number] [address] [place] [address], [place] [address] Jun, [facility] [address] [id number] [address] [place] [address], [place] [address] Jun, [facility] [address] [id number] [address] [place] [address], [place] [address] Jun, [facility] [address] [id number] [address] [place] [address], [place] [address] Jun, [facility] [address] [id number] [address] [place] [address], [place] [address] 05 Jun, 2013 [facility] [address] [id number] [address] [place] [address], [place] [address] Jun, [facility] [address] [id number] [address] [place] [address], [place] [address] May, [facility] [address] [id number] [address] [place] [address], [place] [address] May, [facility] [address] [id number] [address] [place] [address], [place] [address] May, [facility] [address] [id number] [address] [place] [address], [place] [address] May, [facility] [address] [id number] [address] [place] [address], [place] [address] May, [facility] [address] [id number] [address] [place] [address], [place] [address] May, [facility] [address] [id number] [address] [place] [address], [place] [address] May, [facility] [address] [id number] [address] [place] [address], [place] [address] March, [facility] [address] [id number] [address] [place] [address], [place] [address] March, [facility] [address] [id number] [address] [place] [address], [place] [address] March, [facility] [address] [id number] [address] [place] [address], [place] [address] Dec, [facility] [address] [id number] [address] [place] [address], [place] [address] Nov, [facility] [address] [id number] [address] [place] [address], [place] [address] Aug, [facility] [address] [id number] [address] [place] [address], [place] [address] Aug, [facility] [address] [id number] [address] [place] [address], [place] [address] Jun, [facility] [address] [id number] [address] [place] [address], [place] [address] Jun, [facility] [address] [id number] [address] [place] [address], [place] [address] Jun, [facility] [address] [id number] [address] [place] [address], [place] [address] Jun, [facility] [address] [id number] [address] [place] [address], [place] [address] May, [facility] [address] [id number] [address] [place] [address], [place] [address] May, [facility] [address] [id number] [address] [place] [address], [place] [address] May, [facility] [address] [id number] [address] [place] [address], [place] [address] May, [facility] [address] [id number] [address] [place] [address], [place] [address] May, [facility] [address] [id number] [address] [place] [address], [place] [address] May, [facility] [address] [id number] [address] [place] [address], [place] [address] May, [facility] [address] [id number] [address] [place] [address], [place] [address] Apr, [facility] [address] [id number] [address] [place] [address], [place] [address] Apr, [facility] [address] [id number] [address] [place] [address], [place] [address] Apr, [facility] [address] [id number] [address] [place] [address], [place] [address] Apr, [facility] [address] [id number] [address] [place] [address], [place] [address] March, [facility] [address] [id number] [address] [place] [address], [place] [address] March, [facility] [address] [id number] [address] [place] [address], [place] [address] March, [facility] [address] [id number] [address] [place] [address], [place] [address] March, [facility] [address] [id number] [address] [place] [address], [place] [address] March, [facility] [address] [id number] [address] [place] [address], [place] [address] March, [facility] [address] [id number] [address] [place] [address], [place] [address] March, [facility] [address] [id number] [address] [place] [address], [place] [address] March, [facility] [address] [id number] [address] [place] [address], [place] [address] March, [facility] [address] [id number] [address] [place] [address], [place] [address] Feb, [facility] [address] [id number] [address] [place] [address], [place] [address] Feb, [facility] [address] [id number] [address] [place] [address], [place] [address] Jan, [facility] [address] [id number] [address] [place] [address], [place] [address] Jan, [facility] [address] [id number] [address] [place] [address], [place] [address] Jan, [facility] [address] [id number] [address] [place] [address], [place] [address] Jan, [facility] [address] [id number] [address] [place] [address], [place] [address] Dec, [facility] [address] [id number] [address] [place] [address], [place] [address] Dec, [facility] [address] [id number] [address] [place] [address], [place] [address] 15 Dec, 2011 [facility] [address] [id number] [address] [place] [address], [place] [address] 30 Nov, 2011 [facility] [address] [id number] [address] [place] [address], [place] [address] 19 Oct, 2011 [facility] [address] [id number] [address] [place] [address], [place] [address] 15 Oct, 2011 [facility] [address] [id number] [address] [place] [address], [place] [address] 15 Oct, 2011 [facility] [address] [id number] [address] [place] [address], [place] [address] 14 Oct, 2011 [facility] [address] [id number] [address] [place] [address], [place] [address] 14 Oct, 2011 [facility] [address] [id number] [address] [place] [address], [place] [address] 12 Oct, 2011 [facility] [address] [id number] [address] [place] [address], [place] [address] 09 Oct, 2011 [facility] [address] [id number] [address] [place] [address], [place] [address] Oct[facility] [address] [id number] [address] [place] [address], [place] [address] 22 Sep, 2011 [facility] [address] [id number] [address] [place] [address], [place] [address] 17 Sep, 2011 [facility] [address] [id number] [address] [place] [address], [place] [address] 14 Sep, 2011 [facility] [address] [id number] [address] [place] [address], [place] [address] 10 Sep, 2011 [facility] [address] [id number] [address] [place] [address], [place] [address] 10 Sep, 2011 [facility] [address] [id number] [address] [place] [address], [place] [address] Sep, [facility] [address] [id number] [address] [place] [address] Sep, [facility] [address] [id number] [address] [place] [address] Sep, [facility] [address] [id number] [address] [place] [address] Sep, [facility] [address] [id number] [address] [place] [address] Aug, [facility] [address] [id number] [address] [place] [address] Jul, [facility] [address] [id number] [address] [place] [address] Oct, [facility] [address] [facility] [id number] [address] [place] [address] Oct, [facility] [address] [id number] [address] [place] [id number] Oct, IMMUNIZATIONS No Known Immunizations SOCIAL HISTORY [...]
--- OUTSIDE RECORDS SUMMARY | 2020-03-19 05:54 | XMS REPORT ---
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 09234696 Problem Chronic kidney disease, unspecified N18.9 Active 015229437 Problem Anemia, unspecified D64.9 Active 211482406 Problem Irritable bowel K58.9 Active 1074 3008 Problem Irritable bowel syndrome with diarrhea K58.0 Active 202498843 Problem Claudication I73.9 Active 7690892 6 Problem Intractable migraine without aura and with status migr ainosus G43.011 Active 958787710 Problem Peritoneal dialysis status Z99.2 Act moody 407051806 Problem Migraine without aura and without status migrain osus, not intractable G43.009 Active 196195079 Problem Other insomnia G47.09 Active 31883 2000 Problem Dysthymia F34.1 Active 70601994 Problem Chronic kidney disease, stage 4 (severe) N18.4 Active 785732077 Problem Migraine with aura and without status migrainosu s, not intractable G43.109 Active 3199896 Problem Autonomic neuropathy G90.9 Active 184003102 Problem Type 1 diabetes mellitus with complications E10.8 Active 197990130 Problem Menorrhagia with regular cycle N92.0 Active 188326527 Problem Other chronic pain G89.29 Active 8 6546560 Problem Lymphedema I89.0 Active 257482000 Problem Essential hypertension I10 Active 17170954 Problem Moderate episode of recurrent major depressive disorder F33.1 Active 392758237 Problem Type 1 diabetes mellitus without complications E10 .9 Active 050980637 Problem Primary insomnia F51.01 Active 397 2004 Problem Migraine G43.909 Active 03320509 Problem Low back pain M54.5 Active 474267 009 Problem Diastolic dysfunction I51.89 Active 3136219 Problem ESRF (end stage renal failure) N18.6 Active 27066719 Problem Restless legs G25.81 Active 367581 08 Problem Hyperthyroidism E05.90 Active 3448 6009 ALLERGIES No Information ENCOUNTERS Encounter Location Date Diagnosis [place] [address] [address] 15 Apr, 2020 [place] [address] [place] [id number] Jan, [place] [address] [address] 16 Jan, 2020 Migraine without aura and without status migrainosus, not intractable G43.009 and Type 1 diabetes mellitus with hypoglycemia without coma E10.649 [place] [address] [address] 11 Jan, 2020 [place] [address] [address] 10 Jan, 2020 Type 1 diabetes mellitus with hyperglyce sebastian E10.65 ; Orthostatic hypotension I95.1 and Restless legs G25.81 [facility] [address] [place] [id number] [place] [id number] Dec, Caries K02.9 and Dental examination Z01. 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 ; Migraine without aura and without status migrainosus, not intractable G43.009 ; Chronic kidney disease, stage 4 (severe) N18.4 ; Claudication I73.9 ; Peritoneal dialysis status Z99.2 ; Diastolic dysfunction I51.89 ; Primary insomnia F51.01 and Burn T30.0 [place] [address] [address] Sep, Moderate episode of recurrent major depr essive disorder F33.1 and Primary insomnia F51.01 [facility] [address] [address] Aug, Hyperthyroidism E05.90 [facility] [address] [address] May, Restless legs G25.81 [facility] [address] [address] May, [facility] [address] [address] May, [facility] [address] [address] May, Type 1 diabetes mellitus with hypoglycem ia without coma E10.649 ; ESRF (end stage renal failure) N18.6 ; Leg cramps R25.2 ; Restless legs G25.81 and Low back pain M54.5 [place] [address] [address] Apr, Low back pain M54.5 [place] [address] [address] Apr, [facility] [address] [address] March, Low back pain M54.5 [facility] [address] [address] March, [facility] [address] [address] Feb, Low back pain M54.5 [facility] [address] [address] Jan, Low back pain M54.5 [facility] [address] [address] Jan, [facility] [address] [address] 08 Jan, 2019 [place] [address] [address] Jan, [place] [address] [address] Dec, Type 1 diabetes mellitus with hypoglycem ia without coma E10.649 and Low back pain M54.5 [place] [address] [address] Dec, Low back pain M54.5 [place] [address] [address] 13 Dec, 2018 Diastolic dysfunction I51.89 ; Essential hypertension I10 and Chronic kidney disease, stage 4 (severe) N18.4 [place] [address] [address] 11 Dec, 2018 RUQ abdominal pain R10.11 ; Type 1 diabe camryn mellitus without complications E10.9 ; Therapeutic drug monitoring Z51.81 ; Migraine with aura and without status migrainosus, not intractable G43.109 and Intractable migraine without aura and with status migrainosus G43.011 [place] [address] [address] Nov, Low back pain M54.5 [place] [address] [address] Nov, [place] [address] [address] Nov, Intractable migraine without aura and wi th status migrainosus G43.011 ; Lymphedema I89.0 ; Pain in right shoulder M25.511 ; Other chronic pain G89.29 ; Irritable bowel syndrome with diarrhea K58.0 ; Type 1 diabetes mellitus without complications E10.9 and Essential hypertension I10 [place] [address] [address] Oct, Low back pain M54.5 [place] [address] [address] Oct, [facility] [address] [address] Oct, Orthostatic hypotension I95.1 ; Shortnes s of breath R06.02 ; Leg swelling M79.89 ; Type 1 diabetes mellitus without complications E10.9 and Claudication I73.9 [facility] [address] [address] Sep, Low back pain M54.5 [facility] [address] [address] Sep, Low back pain M54.5 [place] [address] [address] Aug, [facility] [address] [address] Aug, Migraine without aura and without status migrainosus, not intractable G43.009 [facility] [address] [address] Aug, Low back pain M54.5 [facility] [address] [facility] [id number] [place] [address] Aug, Acute rhinosinusitis J01.90 and Sore throat J02.9 [facility] [address] [address] Jul, Low back pain M54.5 [facility] [address] [address] Jul, Migraine without aura and without status migrainosus, not intractable G43.009 [facility] [address] [address] Jun, Low back pain M54.5 [facility] [address] [address] Jun, [facility] [address] [address] Jun, Orthostatic hypotension I95.1 ; Shortnes s of breath R06.02 ; Type 1 diabetes mellitus without complications E10.9 and Leg swelling M79.89 [place] [address] [address] Jun, Low back pain M54.5 [place] [address] [address] Jun, [place] [address] [address] May, Migraine without aura and without status migrainosus, not intractable G43.009 [place] [address] [address] May, Migraine without aura and without status migrainosus, not intractable G43.009 ; Restless legs syndrome G25.81 ; Leg cramps R25.2 ; Chronic kidney disease, unspecified N18.9 ; Postural hypotension I95.1 ; Diarrhea, unspecified type R19.7 and Cough R05 [place] [address] [address] May, [place] [address] [address] May, [place] [address] [address] May, Orthostatic hypotension I95.1 ; Shortnes s of breath R06.02 ; Type 1 diabetes mellitus with complications E10.8 and Leg swelling M79.89 [place] [address] [address] May, [place] [address] [address] May, Low back pain M54.5 [place] [address] [address] Apr, Type 1 diabetes mellitus with hyperglyce sebastian E10.65 [place] [address] [address] Apr, Low back pain M54.5 [facility] [address] [address] Apr, [facility] [address] [address] Apr, [facility] [address] [address] March, [facility] [address] [address] March, Low back pain M54.5 [facility] [address] [address] March, [facility] [address] [address] Feb, [facility] [address] [address] Feb, Low back pain M54.5 [facility] [address] [address] Jan, Restless legs syndrome G25.81 [facility] [address] [address] Jan, Low back pain M54.5 [facility] [address] [address] Jan, [facility] [address] [address] Jan, Type 1 diabetes mellitus without complic ations E10.9 ; Low back pain M54.5 ; Cough R05 ; Diarrhea, unspecified type R19.7 ; Migraine without aura and without status migrainosus, not intractable G43.009 and Uses control Z30.9 [facility] [address] [address] Dec, Low back pain M54.5 [facility] [address] [address] Dec, [place] [address] [address] Nov, Well woman exam Z01.419 ; Menorrhagia wi th regular cycle N92.0 ; Vaginal dryness N89.8 and Migraine with aura and without status migrainosus, not intractable G43.109 [facility] [address] [address] Nov, [place] [address] [address] Nov, Low back pain M54.5 [place] [address] [address] Oct, Low back pain M54.5 [place] [address] [address] Oct, Migraine without aura and without status migrainosus, not intractable G43.009 [place] [address] [address] Sep, Low back pain M54.5 [place] [address] [address] Sep, [place] [address] [address] Sep, Migraine without aura and without status migrainosus, not intractable G43.009 [place] [address] [address] Sep, Type 1 diabetes mellitus with hypoglycem ia without coma E10.649 ; Anemia D64.9 ; Migraine without aura and without status migrainosus, not intractable G43.009 ; Chronic kidney disease, unspecified N18.9 ; Autonomic neuropathy G90.9 and Postural hypotension I95.1 [place] [address] [address] Sep, Low back pain M54.5 [place] [address] [address] Aug, Low back pain M54.5 [facility] [address] [address] Jul, [facility] [address] [address] Jul, Low back pain M54.5 [facility] [address] [address] Jun, [facility] [address] [address] Jun, Low back pain M54.5 [facility] [address] [address] Jun, Migraine without aura and without status migrainosus, not intractable G43.009 [place] [address] [address] Jun, Type 1 diabetes mellitus with hyperglyce sebastian E10.65 ; Dysthymia F34.1 and Migraine without aura and without status migrainosus, not intractable G43.009 [facility] [address] [address] Jun, [facility] [address] [address] May, Type 1 diabetes mellitus with hyperglyce sebastian E10.65 [facility] [address] [address] May, Low back pain M54.5 [facility] [address] [address] May, Type 1 diabetes mellitus with hyperglyce sebastian E10.65 [facility] [address] [address] Apr, [facility] [address] [address] Apr, Chronic kidney disease, stage 4 (severe) N18.4 [facility] [address] [address] Apr, Low back pain M54.5 [facility] [address] [address] March, [facility] [address] [address] March, Low back pain M54.5 [facility] [address] [address] Feb, [facility] [address] [address] Feb, [facility] [address] [address] Feb, Low back pain M54.5 [facility] [address] [address] Feb, Low back pain M54.5 [facility] [address] [address] Feb, Migraine without aura and without status migrainosus, not intractable G43.009 [facility] [address] [address] Feb, [facility] [address] [address] Jan, Low back pain M54.5 [facility] [address] [address] Jan, Type 1 diabetes mellitus without complic ations E10.9 ; Anemia D64.9 ; Chronic kidney disease, unspecified N18.9 ; Migraine without aura and without status migrainosus, not intractable G43.009 and Other insomnia G47.09 [facility] [address] [address] Jan, [facility] [address] [address] Dec, Low back pain M54.5 [facility] [address] [address] Dec, [place] [address] [address] Dec, [place] [address] [address] 08 Dec, 2016 Shortness of breath R06.02 ; Type 1 diab etes mellitus without complications E10.9 and Leg swelling M79.89 [place] [address] [address] Nov, Low back pain M54.5 [place] [address] [address] Nov, Viral syndrome B34.9 [place] [address] [address] Oct, Low back pain M54.5 [place] [address] [address] Oct, [place] [address] [address] Oct, Low back pain M54.5 [place] [address] [address] Sep, [place] [address] [address] Sep, Fatigue, unspecified type R53.83 ; Type 1 diabetes mellitus without complications E10.9 and Anemia D64.9 [place] [address] [address] Sep, Low back pain M54.5 [place] [address] [address] Sep, Type 1 diabetes mellitus with hyperglyce sebastian E10.65 [place] [address] [address] Aug, Type 1 diabetes mellitus without complic ations E10.9 [place] [address] [address] Aug, [facility] [address] [address] Aug, [facility] [address] [address] Jul, [facility] [address] [address] 14 Jul, 2016 Low back pain M54.5 [facility] [address] [address] 12 Jul, 2016 Hyperkalemia, diminished renal excretion E87.5 [facility] [address] [address] 09 Jul, 2016 Hyperkalemia, diminished renal excretion E87.5 [facility] [address] [address] Jun, [facility] [address] [address] Jun, Low back pain M54.5 [facility] [address] [address] Jun, Anemia D64.9 ; Autonomic neuropathy G90. 9 and Postural hypotension I95.1 [facility] [address] [address] Jun, [facility] [address] [address] May, Type 1 diabetes mellitus with complicati ons E10.8 and Anemia D64.9 [facility] [address] [address] May, Low back pain M54.5 [facility] [address] [address] Apr, [facility] [address] [address] Apr, Low back pain M54.5 [facility] [address] [address] Apr, [facility] [address] [address] Apr, [facility] [address] [address] March, Low back pain M54.5 and Other chronic pa in G89.29 [facility] [address] [address] March, Type 1 diabetes mellitus without complic ations E10.9 [facility] [address] [address] March, [facility] [address] [address] March, [facility] [address] [address] Feb, [facility] [address] [address] Feb, Type 1 diabetes mellitus without complic ations E10.9 [facility] [address] [address] Feb, Trochanteric bursitis, right hip M70.61 [facility] [address] [address] Jan, [facility] [address] [address] Jan, [facility] [address] [address] Dec, Type 1 diabetes mellitus with complicati ons E10.8 [facility] [address] [address] Dec, [facility] [address] [address] Dec, Anemia D64.9 ; Autonomic neuropathy G90. 9 and Postural hypotension I95.1 [place] [address] [address] Dec, [place] [address] [address] Nov, Sore throat J02.9 [place] [address] [address] Nov, Type 1 diabetes mellitus with complicati ons E10.8 [place] [address] [address] Nov, Type 1 diabetes mellitus with diabetic n ephropathy E10.21 ; Proteinuria, unspecified R80.9 and Chronic kidney disease, unspecified N18.9 [place] [address] [address] Nov, [place] [address] [address] Nov, Trochanteric bursitis, right hip M70.61 [place] [address] [address] Nov, [place] [address] [address] Oct, [place] [address] [address] Oct, [place] [address] [address] Oct, [place] [address] [address] Sep, [place] [address] [address] Sep, [place] [address] [address] Sep, Type 2 diabetes mellitus with complicati on E11.8 and Right hip pain M25.551 [place] [address] [address] Sep, [facility] [address] [place] [id number] [place] [address] Aug, [facility] [address] [address] Aug, [facility] [address] [address] Aug, [facility] [address] [address] Aug, Type 1 diabetes mellitus without complic ations E10.9 [facility] [address] [address] 16 Jul, 2015 [facility] [address] [address] Jul, [facility] [address] [address] Jul, [facility] [address] [address] Jun, [facility] [address] [address] Jun, [facility] [address] [address] Jun, [facility] [address] [address] Jun, [facility] [address] [address] Jun, [facility] [address] [address] Jun, Diabetes mellitus without mention of com plication, type I [juvenile type], not stated as uncontrolled 250.01 [facility] [address] [id number] [place] [address] May, [facility] [address] [address] May, [facility] [id number] [place] [address] May, [facility] [address] [id number] [place] [address] May, Autonomic neuropathy 337.9 ; Postural hy potension 458.0 and Anemia 285.9 [facility] [id number] [place] [address] May, [facility] [address] [id number] [place] [address] Apr, [facility] [id number] [place] [address] Apr, [facility] [id number] [place] [address] Apr, [facility] [id number] [place] [address] Apr, [facility] [id number] [place] [address] Apr, [facility] [id number] [place] [address] March, [facility] [id number] [place] [address] March, [facility] [id number] [place] [address] March, [facility] [id number] [place] [address] March, [facility] [id number] [place] [address] March, [facility] [id number] [place] [address] Feb, [facility] [id number] [place] [address] Feb, [facility] [id number] [place] [address] Feb, [facility] [address] [id number] [place] [address] 30 Jan, 2015 [facility] [address] [id number] [place] [address] Jan, [facility] [address] [id number] [place] [address] Jan, [facility] [address] [id number] [place] [address] Jan, [facility] [address] [id number] [place] [address] Jan, [facility] [address] [id number] [place] [address] Jan, [facility] [address] [id number] [place] [address] Jan, [facility] [address] [id number] [place] [address] Jan, [facility] [address] [id number] [place] [address] Jan, [facility] [address] [id number] [place] [address] Jan, [facility] [address] [id number] [place] [address] Jan, [facility] [address] [id number] [place] [address] Jan, [facility] [address] [id number] [place] [address] Jan, [facility] [address] [id number] [place] [address] Dec, [facility] [address] [id number] [place] [address] Dec, [facility] [address] [id number] [place] [address] Dec, [facility] [address] [id number] [place] [address] Dec, [facility] [address] [id number] [place] [address] Dec, [facility] [address] [id number] [place] [address] Dec, [facility] [address] [id number] [place] [address] Dec, [facility] [address] [id number] [place] [address] Dec, [facility] [address] [id number] [place] [address] Nov, [facility] [address] [id number] [place] [address] Nov, [facility] [address] [id number] [place] [address] Nov, [facility] [address] [id number] [place] [address] Nov, [facility] [address] [id number] [place] [address] Nov, [facility] [address] [id number] [place] [address] Nov, [facility] [address] [id number] [place] [address] Nov, [facility] [address] [id number] [place] [address] Nov, [facility] [address] [id number] [place] [address] Nov, [facility] [address] [id number] [place] [address] Oct, [facility] [address] [id number] [place] [address] Oct, [facility] [address] [id number] [place] [address] Oct, [facility] [place] [facility] [address] [id number] [place] [address] Oct, [facility] [place] [facility] [address] [id number] [place] [address] Oct, [facility] [place] [facility] [address] [id number] [place] [address] Oct, [facility] [place] [facility] [address] [id number] [place] [address] Oct, [facility] [place] [facility] [address] [id number] [place] [address] Oct, [facility] [place] [facility] [address] [id number] [place] [address] Oct, [facility] [place] [facility] [address] [id number] [place] [address] Oct, [facility] [place] [facility] [address] [id number] [place] [address] Oct, [facility] [place] [facility] [address] [id number] [place] [address] Oct, [facility] [place] [facility] [address] [id number] [place] [address] Oct, [facility] [place] [facility] [address] [id number] [place] [address] Oct, [facility] [place] [facility] [address] [id number] [place] [address] Sep, [facility] [place] [facility] [address] [id number] [place] [address] Sep, [facility] [place] [facility] [address] [id number] [place] [address] Sep, [facility] [place] [facility] [id number] [place] [address] Sep, [facility] [place] [facility] [address] [id number] [place] [address] Aug, [facility] [place] [facility] [id number] [place] [address] Aug, [facility] [place] [facility] [address] [facility] [id number] [place] [address] Aug, [facility] [place] [facility] [address] [id number] [place] [address] Aug, 2013 [facility] [place] [facility] [address] [id number] [place] [address] Aug, 2013 [facility] [place] [facility] [address] [id number] [place] [address] Aug, 2013 [facility] [place] [facility] [address] [facility] [id number] [place] [address] Aug, 2013 [facility] [place] [facility] [address] [id number] [place] [address] Aug, 2013 [facility] [place] [facility] [address] [id number] [place] [address] Aug, [facility] [place] [facility] [address] [id number] [place] [address] Aug, [facility] [place] [facility] [address] [id number] [place] [address] 29 Jul, 2013 [facility] [place] [facility] [address] [id number] [place] [address] 29 Sep, 2013 [facility] [place] [facility] [address] [id number] [place] [address] 29 Jul, 2013 [facility] [place] [facility] [address] [id number] [place] [address] 29 Sep, 2013 [facility] [place] [facility] [address] [id number] [place] [address] 22 Sep, 2013 [facility] [place] [facility] [address] [id number] [place] [address] 22 Jul, 2013 [facility] [place] [facility] [address] [id number] [place] [address] 19 Jul, 2013 [facility] [place] [facility] [address] [id number] [place] [address] 19 Jul, 2013 [facility] [place] [facility] [address] [id number] [facility] [address] 11 Jul, 2013 [facility] [place] [facility] [address] [id number] [facility] [address] 11 Jul, 2013 [facility] [place] [facility] [address] [facility] [id number] [facility] [address] 10 Jul, 2013 [facility] [place] [facility] [address] [id number] [facility] [address] 10 Jul, 2013 [facility] [place] [facility] [address] [facility] [id number] [facility] [address] 08 Jul, 2013 [facility] [place] [facility] [address] [facility] [id number] [facility] [address] 08 Jul, 2013 [facility] [place] [facility] [address] [id number] [facility] [address] Jul, 2013 [facility] [place] [facility] [address] [id number] [facility] [address] Jul, 2013 [facility] [place] [facility] [address] [id number] [facility] [address] Jul, 2013 [facility] [place] [facility] [address] [facility] [id number] [facility] [address] Jul, 2013 [facility] [place] [facility] [address] [id number] [place] [address] Jun, [facility] [place] [facility] [address] [id number] [place] [address] Jun, [facility] [place] [facility] [address] [id number] [facility] [address] Jun, [facility] [place] [facility] [address] [facility] [id number] [facility] [address] Jun, [facility] [place] [facility] [address] [id number] [place] [address] Jun, [facility] [place] [facility] [address] [id number] [place] [address] Jun, [facility] [place] [facility] [address] [id number] [place] [address] Jun, [facility] [place] [facility] [address] [id number] [facility] [address] Jun, [facility] [place] [facility] [address] [facility] [id number] [place] [address] Jun, [facility] [place] [facility] [address] [facility] [id number] [place] [address] Jun, [facility] [place] [facility] [address] [facility] [id number] [place] [address] Jun, [facility] [place] [facility] [address] [facility] [id number] [place] [address] Jun, [facility] [place] [facility] [address] [facility] [id number] [place] [address] Jun, [facility] [place] [facility] [address] [id number] [place] [address] Jun, [facility] [place] [facility] [address] [id number] [place] [address] Jun, [facility] [place] [facility] [address] [id number] [place] [address] May, [facility] [place] [facility] [address] [facility] [id number] [place] [address] May, [facility] [place] [facility] [address] [id number] [place] [address] May, [facility] [place] [facility] [address] [id number] [place] [address] May, [facility] [place] [facility] [address] [facility] [id number] [place] [address] May, [facility] [place] [facility] [address] [facility] [id number] [place] [address] May, [facility] [place] [facility] [address] [id number] [place] [address] May, [facility] [place] [facility] [address] [facility] [id number] [place] [address] May, [facility] [place] [facility] [address] [id number] [place] [address] Apr, [facility] [place] [facility] [address] [facility] [id number] [place] [address] 24 Apr, 2014 [facility] [place] [facility] [address] [facility] [id number] [place] [address] Apr, [facility] [place] [facility] [address] [facility] [id number] [place] [address] Apr, [facility] [place] [facility] [address] [facility] [id number] [place] [address] Apr, [facility] [place] [facility] [address] [facility] [id number] [place] [address] Apr, [facility] [place] [facility] [address] [id number] [place] [address] Apr, [facility] [place] [facility] [address] [id number] [place] [address] Apr, [facility] [place] [facility] [address] [id number] [place] [address] Apr, [facility] [place] [facility] [address] [id number] [place] [address] Apr, [facility] [place] [facility] [address] [id number] [place] [address] Apr, [facility] [place] [facility] [address] [id number] [place] [address] Apr, [facility] [place] [facility] [address] [id number] [place] [address] Apr, [facility] [place] [facility] [address] [facility] [id number] [place] [address] Apr, [facility] [place] [facility] [address] [id number] [place] [address] Apr, [facility] [place] [facility] [address] [id number] [place] [address] Apr, [facility] [place] [facility] [address] [id number] [place] [address] Apr, [facility] [place] [facility] [address] [id number] [place] [address] Apr, [facility] [place] [facility] [address] [facility] [id number] [facility] [address] March, [facility] [place] [facility] [address] [id number] [place] [address] March, [facility] [place] [facility] [address] [id number] [place] [address] March, [facility] [place] [facility] [address] [id number] [place] [address] March, [facility] [place] [facility] [address] [id number] [place] [address] March, [facility] [place] [facility] [address] [id number] [place] [address] March, [facility] [place] [facility] [address] [id number] [place] [address] March, [facility] [place] [facility] [address] [id number] [place] [address] March, [facility] [place] [facility] [address] [id number] [place] [address] March, [facility] [place] [facility] [address] [id number] [place] [address] Feb, [facility] [place] [facility] [address] [id number] [place] [address] Feb, [facility] [place] [facility] [address] [id number] [place] [address] Feb, [facility] [place] [facility] [address] [id number] [place] [address] Feb, [facility] [place] [facility] [address] [id number] [place] [address] Feb, [facility] [place] [facility] [address] [id number] [place] [address] Feb, [facility] [place] [facility] [address] [id number] [place] [address] Feb, [facility] [place] [facility] [address] [id number] [place] [address] Feb, [facility] [place] [facility] [address] [id number] [place] [address] Feb, [facility] [place] [facility] [address] [id number] [place] [address] Feb, [facility] [place] [facility] [address] [id number] [place] [address] Feb, [facility] [place] [facility] [address] [id number] [place] [address] Feb, [facility] [place] [facility] [address] [id number] [place] [address] Feb, [facility] [place] [facility] [address] [id number] [place] [address] Jan, [facility] [place] [facility] [address] [id number] [place] [address] Jan, [facility] [place] [facility] [address] [id number] [place] [address] Jan, [facility] [place] [facility] [address] [id number] [place] [address] Jan, [facility] [place] [facility] [address] [id number] [place] [address] Jan, [facility] [place] [facility] [address] [id number] [place] [address] Jan, [facility] [place] [facility] [address] [id number] [place] [address] Jan, [facility] [place] [facility] [address] [id number] [place] [address] Jan, [facility] [place] [facility] [address] [id number] [place] [address] Dec, [facility] [place] [facility] [address] [id number] [place] [address] Dec, [facility] [place] [facility] [address] [id number] [place] [address] Dec, [facility] [place] [facility] [address] [facility] [id number] [facility] [address] Dec, [facility] [place] [facility] [address] [facility] [id number] [facility] [address] Dec, [facility] [place] [facility] [address] [id number] [facility] [address] Dec, [facility] [place] [facility] [address] [id number] [place] [address] Dec, [facility] [place] [facility] [address] [facility] [id number] [facility] [address] Dec, [facility] [place] [facility] [address] [id number] [place] [address] Dec, [facility] [place] [facility] [address] [id number] [facility] [address] Dec, [facility] [place] [facility] [address] [id number] [place] [address] Nov, [facility] [place] [facility] [address] [id number] [facility] [address] Nov, [facility] [place] [facility] [address] [id number] [place] [address] Nov, [facility] [place] [facility] [address] [id number] [place] [address] Nov, [facility] [place] [facility] [address] [id number] [place] [address] Nov, [facility] [place] [facility] [address] [id number] [place] [address] Nov, [facility] [place] [facility] [address] [id number] [place] [address] Nov, [facility] [place] [facility] [address] [id number] [place] [address] Nov, [facility] [place] [facility] [address] [id number] [place] [address] Nov, [facility] [place] [facility] [address] [id number] [place] [address] Nov, [facility] [place] [facility] [address] [id number] [place] [address] Oct, [facility] [place] [facility] [address] [id number] [place] [address] 19 Oct, 2013 [facility] [place] [facility] [address] [id number] [place] [address] 18 Oct, 2013 [facility] [place] [facility] [address] [id number] [place] [address] 18 Oct, 2013 [facility] [place] [facility] [address] [id number] [place] [address] 17 Oct, 2013 [facility] [place] [facility] [address] [id number] [place] [address] 17 Oct, 2013 [facility] [place] [facility] [address] [id number] [place] [address] 16 Oct, 2013 [facility] [place] [facility] [address] [id number] [place] [address] 16 Oct, 2013 [facility] [place] [facility] [address] [id number] [place] [address] Oct, [facility] [place] [facility] [address] [id number] [place] [address] Oct, [facility] [place] [facility] [address] [id number] [place] [address] 04 Oct, 2013 [facility] [place] [facility] [address] [id number] [place] [address] 04 Oct, 2013 [facility] [place] [facility] [address] [id number] [place] [address] 04 Oct, 2013 [facility] [place] [facility] [address] [id number] [place] [address] Oct, [facility] [place] [facility] [address] [id number] [place] [address] Sep, [facility] [place] [facility] [address] [id number] [place] [address] Sep, [facility] [place] [facility] [address] [id number] [place] [address] Sep, [facility] [place] [facility] [address] [id number] [place] [address] Sep, [facility] [place] [facility] [address] [id number] [place] [address] Sep, [facility] [place] [facility] [address] [id number] [place] [address] Sep, [facility] [place] [facility] [address] [id number] [place] [address] Aug, [facility] [place] [facility] [address] [id number] [place] [address] Aug, [facility] [place] [facility] [address] [id number] [place] [address] Aug, [facility] [place] [facility] [address] [id number] [place] [address] 17 Aug, 2013 [facility] [place] [facility] [address] [id number] [place] [address] 10 Aug, 2012 [facility] [place] [facility] [address] [id number] [place] [address] 10 Aug, 2013 [facility] [place] [facility] [address] [id number] [place] [address] 07 Aug, 2013 [facility] [place] [facility] [address] [id number] [place] [address] 02 Aug, 2013 [facility] [place] [facility] [address] [id number] [place] [address] 02 Aug, 2013 [facility] [place] [facility] [address] [id number] [place] [address] 25 Jul, 2012 [facility] [place] [facility] [address] [id number] [place] [address] 23 Sep, 2012 [facility] [place] [facility] [address] [id number] [place] [address] 21 Jul, 2012 [facility] [place] [facility] [address] [id number] [facility] [address] 20 Sep, 2012 [facility] [place] [facility] [address] [id number] [facility] [address] 18 Sep, 2012 [facility] [place] [facility] [address] [facility] [id number] [facility] [address] 17 Jul, 2012 [facility] [place] [facility] [address] [id number] [facility] [address] 16 Sep, 2012 [facility] [place] [facility] [address] [facility] [id number] [facility] [address] 11 Sep, 2012 [facility] [place] [facility] [address] [id number] [facility] [address] 09 Jul, 2012 [facility] [place] [facility] [address] [id number] [place] [address] 09 Jul, 2012 [facility] [place] [facility] [address] [id number] [place] [address] 06 Jul, 2012 [facility] [place] [facility] [address] [id number] [place] [address] 03 Jul, 2012 [facility] [place] [facility] [address] [facility] [id number] [facility] [address] Jun, [facility] [place] [facility] [address] [id number] [place] [address] Jun, [facility] [place] [facility] [address] [id number] [place] [address] Jun, [facility] [place] [facility] [address] [id number] [place] [address] Jun, 2012 [facility] [place] [facility] [address] [facility] [id number] [place] [address] Jun, [facility] [place] [facility] [address] [id number] [place] [address] Jun, 2012 [facility] [place] [facility] [address] [id number] [facility] [address] 15 Jun, 2013 [facility] [place] [facility] [address] [id number] [place] [address] 05 Jun, 2012 [facility] [place] [facility] [address] [id number] [facility] [address] Jun, [facility] [place] [facility] [address] [facility] [id number] [place] [address] May, [facility] [place] [facility] [address] [facility] [id number] [place] [address] May, [facility] [address] [id number] [place] [address] May, [facility] [address] [id number] [place] [address] May, [facility] [address] [id number] [place] [address] May, [facility] [address] [id number] [place] [address] May, [facility] [address] [id number] [place] [address] May, [facility] [address] [id number] [place] [address] March, [facility] [address] [id number] [place] [address] March, [facility] [address] [id number] [place] [address] March, [facility] [address] [id number] [place] [address] Dec, [facility] [address] [id number] [place] [address] Nov, [facility] [address] [facility] [id number] [place] [address] Aug, [facility] [address] [id number] [place] [address] Aug, [facility] [address] [id number] [place] [address] Jun, [facility] [address] [id number] [place] [address] Jun, [facility] [address] [id number] [place] [address] Jun, [facility] [address] [id number] [facility] [address] Jun, [facility] [address] [id number] [place] [address] May, [facility] [address] [id number] [place] [address] May, [facility] [address] [facility] [id number] [place] [address] May, [facility] [address] [id number] [place] [address] May, [facility] [address] [id number] [place] [address] May, [facility] [address] [id number] [place] [address] May, [facility] [address] [id number] [place] [address] May, [facility] [address] [id number] [place] [address] Apr, [facility] [address] [id number] [place] [address] Apr, [facility] [address] [id number] [place] [address] Apr, [facility] [address] [id number] [place] [address] Apr, [facility] [address] [id number] [place] [address] March, [facility] [address] [id number] [place] [address] March, [facility] [address] [id number] [place] [address] March, [facility] [address] [id number] [place] [address] March, [facility] [address] [id number] [facility] [address] March, [facility] [address] [id number] [place] [address] March, [facility] [address] [id number] [place] [address] March, [facility] [address] [id number] [place] [address] March, [facility] [address] [id number] [place] [address] March, [facility] [address] [id number] [place] [address] Feb, [facility] [address] [id number] [place] [address] Feb, [facility] [address] [id number] [place] [address] Jan, [facility] [address] [id number] [place] [address] Jan, [facility] [address] [id number] [place] [address] Jan, [facility] [address] [id number] [place] [address] Jan, [facility] [address] [id number] [place] [address] Dec, [facility] [address] [id number] [place] [address] Dec, [facility] [address] [id number] [place] [address] Dec, [facility] [address] [id number] [place] [address] Nov, [facility] [address] [id number] [place] [address] Oct, [facility] [address] [id number] [place] [address] 15 Oct, 2011 [facility] [address] [id number] [place] [address] 15 Oct, 2011 [facility] [address] [id number] [place] [address] 14 Oct, 2011 [facility] [address] [id number] [place] [address] 14 Oct, 2011 [facility] [address] [id number] [place] [address] Oct, [facility] [address] [id number] [place] [address] Oct, [facility] [address] [id number] [place] [address] Oct, [facility] [address] [id number] [place] [address] Sep, [facility] [address] [id number] [place] [address] 17 Sep, 2011 [facility] [address] [id number] [place] [address] 14 Sep, 2011 [facility] [address] [id number] [place] [address] Sep, [facility] [id number] [place] [address] Sep, [facility] [id number] [place] [address] Sep, [facility] [address] [id number] [place] [address] Sep, [facility] [id number] [place] [address] Sep, [facility] [address] [id number] [place] [address] Sep, [facility] [address] [facility] [id number] [place] [address] Aug, [facility] [id number] [place] [address] Jul, [facility] [id number] [place] [address] Oct, [facility] [id number] [place] [address] Oct, [facility] [id number] [place] [address] Oct, IMMUNIZATIONS No Known Immunizations SOCIAL HISTORY [...]
--- OUTSIDE RECORDS SUMMARY | 2020-03-19 05:55 | XMS REPORT ---
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 49444451 Problem Chronic kidney disease, unspecified N18.9 Active 728122518 Problem Anemia, unspecified D64.9 Active 143167615 Problem Irritable bowel K58.9 Active 1074 3008 Problem Irritable bowel syndrome with diarrhea K58.0 Active 247815113 Problem Claudication I73.9 Active 2150593 6 Problem Intractable migraine without aura and with status migr ainosus G43.011 Active 595945393 Problem Peritoneal dialysis status Z99.2 Act moody 930779517 Problem Migraine without aura and without status migrain osus, not intractable G43.009 Active 739682943 Problem Other insomnia G47.09 Active 60032 2000 Problem Dysthymia F34.1 Active 38080356 Problem Chronic kidney disease, stage 4 (severe) N18.4 Active 790283536 Problem Migraine with aura and without status migrainosu s, not intractable G43.109 Active 5842554 Problem Autonomic neuropathy G90.9 Active 882370140 Problem Type 1 diabetes mellitus with complications E10.8 Active 050813423 Problem Menorrhagia with regular cycle N92.0 Active 470767261 Problem Other chronic pain G89.29 Active 8 0042011 Problem Lymphedema I89.0 Active 795932617 Problem Essential hypertension I10 Active 10806747 Problem Moderate episode of recurrent major depressive disorder F33.1 Active 653470144 Problem Type 1 diabetes mellitus without complications E10 .9 Active 793889330 Problem Primary insomnia F51.01 Active 397 2004 Problem Migraine G43.909 Active 60473717 Problem Low back pain M54.5 Active 691999 009 Problem Diastolic dysfunction I51.89 Active 3102497 Problem ESRF (end stage renal failure) N18.6 Active 92959839 Problem Restless legs G25.81 Active 217592 08 Problem Hyperthyroidism E05.90 Active 3448 6009 ALLERGIES No Information ENCOUNTERS Encounter Location Date Diagnosis [place] [address] [id number] 15 Apr, 2020 [place] [address] [id number] 16 Jan, 2020 Migraine without aura and without status migrainosus, not intractable G43.009 and Type 1 diabetes mellitus with hypoglycemia without coma E10.649 [place] [address] [address] 11 Jan, 2020 [place] [address] [address] 10 Jan, 2020 Type 1 diabetes mellitus with hyperglyce sebastian E10.65 ; Orthostatic hypotension I95.1 and Restless legs G25.81 [facility] [id number] [place], [place] [id number] Dec, Caries K02.9 and Dental examination Z01. 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 ; Migraine without aura and without status migrainosus, not intractable G43.009 ; Chronic kidney disease, stage 4 (severe) N18.4 ; Claudication I73.9 ; Peritoneal dialysis status Z99.2 ; Diastolic dysfunction I51.89 ; Primary insomnia F51.01 and Burn T30.0 [facility] [address] [address] Sep, Moderate episode of recurrent major depr essive disorder F33.1 and Primary insomnia F51.01 [facility] [address] [address] Aug, Hyperthyroidism E05.90 [facility] [address] [address] May, Restless legs G25.81 [facility] [address] [address] May, [facility] [address] [address] May, [facility] [address] [address] May, Type 1 diabetes mellitus with hypoglycem ia without coma E10.649 ; ESRF (end stage renal failure) N18.6 ; Leg cramps R25.2 ; Restless legs G25.81 and Low back pain M54.5 [facility] [address] [address] Apr, Low back pain M54.5 [facility] [address] [address] Apr, [facility] [address] [address] March, Low back pain M54.5 [facility] [address] [address] March, [facility] [address] [address] Feb, Low back pain M54.5 [facility] [address] [address] Jan, Low back pain M54.5 [facility] [address] [address] Jan, [facility] [address] [address] Jan, [facility] [address] [address] Jan, [facility] [address] [address] Dec, Type 1 diabetes mellitus with hypoglycem ia without coma E10.649 and Low back pain M54.5 [place] [address] [address] Dec, Low back pain M54.5 [place] [address] [address] 13 Dec, 2018 Diastolic dysfunction I51.89 ; Essential hypertension I10 and Chronic kidney disease, stage 4 (severe) N18.4 [place] [address] [address] 11 Dec, 2018 RUQ abdominal pain R10.11 ; Type 1 diabe camryn mellitus without complications E10.9 ; Therapeutic drug monitoring Z51.81 ; Migraine with aura and without status migrainosus, not intractable G43.109 and Intractable migraine without aura and with status migrainosus G43.011 [place] [address] [address] Nov, Low back pain M54.5 [place] [address] [address] Nov, [place] [address] [address] Nov, Intractable migraine without aura and wi th status migrainosus G43.011 ; Lymphedema I89.0 ; Pain in right shoulder M25.511 ; Other chronic pain G89.29 ; Irritable bowel syndrome with diarrhea K58.0 ; Type 1 diabetes mellitus without complications E10.9 and Essential hypertension I10 [place] [address] [address] Oct, Low back pain M54.5 [place] [address] [address] Oct, [place] [address] [address] Oct, Orthostatic hypotension I95.1 ; Shortnes s of breath R06.02 ; Leg swelling M79.89 ; Type 1 diabetes mellitus without complications E10.9 and Claudication I73.9 [facility] [address] [address] 30 Sep, 2018 Low back pain M54.5 [facility] [address] [address] Sep, Low back pain M54.5 [facility] [address] [address] Aug, [facility] [address] [address] Aug, Migraine without aura and without status migrainosus, not intractable G43.009 [place] [address] [address] Aug, Low back pain M54.5 [facility] [address] [facility] [id number] [place] [address] 05 Aug, 2018 Acute rhinosinusitis J01.90 and Sore throat J02.9 [facility] [address] [address] 28 Jul, 2018 Low back pain M54.5 [facility] [address] [address] 19 Jul, 2018 Migraine without aura and without status migrainosus, not intractable G43.009 [facility] [address] [address] Jun, Low back pain M54.5 [facility] [address] [address] Jun, [facility] [address] [address] 08 Jun, 2018 Orthostatic hypotension I95.1 ; Shortnes s of breath R06.02 ; Type 1 diabetes mellitus without complications E10.9 and Leg swelling M79.89 [place] [address] [address] Jun, Low back pain M54.5 [place] [address] [address] Jun, [place] [address] [address] May, Migraine without aura and without status migrainosus, not intractable G43.009 [place] [address] [address] May, Migraine without aura and without status migrainosus, not intractable G43.009 ; Restless legs syndrome G25.81 ; Leg cramps R25.2 ; Chronic kidney disease, unspecified N18.9 ; Postural hypotension I95.1 ; Diarrhea, unspecified type R19.7 and Cough R05 [place] [address] [address] May, [place] [address] [address] May, [place] [address] [address] May, Orthostatic hypotension I95.1 ; Shortnes s of breath R06.02 ; Type 1 diabetes mellitus with complications E10.8 and Leg swelling M79.89 [place] [address] [address] May, [place] [address] [address] May, Low back pain M54.5 [place] [address] [address] Apr, Type 1 diabetes mellitus with hyperglyce sebastian E10.65 [place] [address] [address] Apr, Low back pain M54.5 [place] [id number] [place] [address] Apr, [facility] [address] [address] Apr, [facility] [address] [address] March, [facility] [address] [address] March, Low back pain M54.5 [facility] [address] [address] March, [facility] [address] [address] Feb, [facility] [address] [address] Feb, Low back pain M54.5 [facility] [address] [address] Jan, Restless legs syndrome G25.81 [facility] [address] [address] Jan, Low back pain M54.5 [facility] [address] [address] Jan, [facility] [address] [address] Jan, Type 1 diabetes mellitus without complic ations E10.9 ; Low back pain M54.5 ; Cough R05 ; Diarrhea, unspecified type R19.7 ; Migraine without aura and without status migrainosus, not intractable G43.009 and Uses control Z30.9 [facility] [address] [address] Dec, Low back pain M54.5 [facility] [address] [address] Dec, [facility] [address] [address] Nov, Well woman exam Z01.419 ; Menorrhagia wi th regular cycle N92.0 ; Vaginal dryness N89.8 and Migraine with aura and without status migrainosus, not intractable G43.109 [facility] [address] [address] Nov, [facility] [address] [address] Nov, Low back pain M54.5 [place] [address] [address] Oct, Low back pain M54.5 [place] [address] [address] Oct, Migraine without aura and without status migrainosus, not intractable G43.009 [place] [address] [address] Sep, Low back pain M54.5 [place] [address] [address] Sep, [place] [address] [address] Sep, Migraine without aura and without status migrainosus, not intractable G43.009 [place] [address] [address] Sep, Type 1 diabetes mellitus with hypoglycem ia without coma E10.649 ; Anemia D64.9 ; Migraine without aura and without status migrainosus, not intractable G43.009 ; Chronic kidney disease, unspecified N18.9 ; Autonomic neuropathy G90.9 and Postural hypotension I95.1 [place] [address] [address] Sep, Low back pain M54.5 [place] [address] [address] Aug, Low back pain M54.5 [place] [address] [address] 14 Jul, 2017 [facility] [address] [address] Jul, Low back pain M54.5 [facility] [address] [address] Jun, [facility] [address] [address] Jun, Low back pain M54.5 [facility] [address] [address] Jun, Migraine without aura and without status migrainosus, not intractable G43.009 [facility] [address] [address] Jun, Type 1 diabetes mellitus with hyperglyce sebastian E10.65 ; Dysthymia F34.1 and Migraine without aura and without status migrainosus, not intractable G43.009 [facility] [address] [address] Jun, [facility] [address] [address] May, Type 1 diabetes mellitus with hyperglyce sebastian E10.65 [facility] [address] [address] May, Low back pain M54.5 [facility] [address] [address] May, Type 1 diabetes mellitus with hyperglyce sebastian E10.65 [facility] [address] [address] Apr, [facility] [address] [address] Apr, Chronic kidney disease, stage 4 (severe) N18.4 [facility] [address] [address] Apr, Low back pain M54.5 [facility] [id number] [place] [address] March, [facility] [address] [address] March, Low back pain M54.5 [facility] [address] [address] Feb, [facility] [address] [address] Feb, [facility] [address] [address] Feb, Low back pain M54.5 [facility] [address] [address] Feb, Low back pain M54.5 [facility] [address] [address] Feb, Migraine without aura and without status migrainosus, not intractable G43.009 [facility] [address] [address] Feb, [facility] [address] [address] Jan, Low back pain M54.5 [facility] [address] [address] Jan, Type 1 diabetes mellitus without complic ations E10.9 ; Anemia D64.9 ; Chronic kidney disease, unspecified N18.9 ; Migraine without aura and without status migrainosus, not intractable G43.009 and Other insomnia G47.09 [facility] [address] [address] Jan, [facility] [address] [address] Dec, Low back pain M54.5 [facility] [address] [address] Dec, [facility] [address] [address] 13 Dec, 2016 [place] [address] [address] 08 Dec, 2016 Shortness of breath R06.02 ; Type 1 diab etes mellitus without complications E10.9 and Leg swelling M79.89 [place] [address] [address] Nov, Low back pain M54.5 [place] [address] [address] Nov, Viral syndrome B34.9 [place] [address] [address] Oct, Low back pain M54.5 [place] [address] [address] Oct, [place] [address] [address] Oct, Low back pain M54.5 [place] [address] [address] Sep, [place] [address] [address] Sep, Fatigue, unspecified type R53.83 ; Type 1 diabetes mellitus without complications E10.9 and Anemia D64.9 [place] [address] [address] Sep, Low back pain M54.5 [place] [address] [address] Sep, Type 1 diabetes mellitus with hyperglyce sebastian E10.65 [place] [address] [address] Aug, Type 1 diabetes mellitus without complic ations E10.9 [place] [address] [address] Aug, [place] [address] [address] Aug, [facility] [address] [address] Jul, [facility] [address] [address] 14 Jul, 2016 Low back pain M54.5 [facility] [address] [address] 12 Jul, 2016 Hyperkalemia, diminished renal excretion E87.5 [place] [address] [address] 09 Jul, 2016 Hyperkalemia, diminished renal excretion E87.5 [facility] [address] [address] Jun, [place] [address] [address] Jun, Low back pain M54.5 [place] [address] [address] Jun, Anemia D64.9 ; Autonomic neuropathy G90. 9 and Postural hypotension I95.1 [place] [address] [address] Jun, [place] [address] [address] May, Type 1 diabetes mellitus with complicati ons E10.8 and Anemia D64.9 [place] [address] [address] May, Low back pain M54.5 [place] [address] [address] Apr, [facility] [address] [address] Apr, Low back pain M54.5 [place] [address] [address] Apr, [facility] [address] [address] Apr, [facility] [address] [address] March, Low back pain M54.5 and Other chronic pa in G89.29 [facility] [address] [address] March, Type 1 diabetes mellitus without complic ations E10.9 [facility] [address] [address] March, [facility] [address] [address] March, [facility] [address] [address] Feb, [facility] [address] [address] Feb, Type 1 diabetes mellitus without complic ations E10.9 [facility] [address] [address] Feb, Trochanteric bursitis, right hip M70.61 [place] [address] [address] Jan, [facility] [address] [address] Jan, [facility] [address] [address] Dec, Type 1 diabetes mellitus with complicati ons E10.8 [facility] [address] [address] Dec, [facility] [address] [address] Dec, Anemia D64.9 ; Autonomic neuropathy G90. 9 and Postural hypotension I95.1 [facility] [address] [address] Dec, [facility] [address] [address] Nov, Sore throat J02.9 [facility] [address] [address] Nov, Type 1 diabetes mellitus with complicati ons E10.8 [facility] [address] [address] Nov, Type 1 diabetes mellitus with diabetic n ephropathy E10.21 ; Proteinuria, unspecified R80.9 and Chronic kidney disease, unspecified N18.9 [facility] [address] [address] Nov, [facility] [address] [address] Nov, Trochanteric bursitis, right hip M70.61 [facility] [address] [address] Nov, [facility] [address] [address] Oct, [facility] [address] [address] Oct, [facility] [address] [address] Oct, [facility] [address] [address] Sep, [facility] [address] [address] Sep, [facility] [address] [address] Sep, Type 2 diabetes mellitus with complicati on E11.8 and Right hip pain M25.551 [facility] [address] [address] Sep, [facility] [address] [address] Aug, [facility] [id number] [place] [address] Aug, [facility] [address] [address] Aug, [facility] [id number] [place] [address] Aug, Type 1 diabetes mellitus without complic ations E10.9 [facility] [id number] [place] [address] 16 Jul, 2015 [facility] [address] [address] 15 Jul, 2015 [facility] [address] [address] Jul, [facility] [address] [address] Jun, [facility] [address] [address] Jun, [facility] [address] [address] Jun, [facility] [address] [address] Jun, [facility] [address] [address] Jun, [facility] [address] [address] Jun, Diabetes mellitus without mention of com plication, type I [juvenile type], not stated as uncontrolled 250.01 [facility] [address] [address] May, [facility] [address] [address] May, [facility] [address] [address] May, [facility] [id number] [place] [address] May, Autonomic neuropathy 337.9 ; Postural hy potension 458.0 and Anemia 285.9 [facility] [id number] [place] [address] May, [facility] [id number] [place] [address] Apr, [facility] [id number] [place] [address] Apr, [facility] [id number] [place] [address] Apr, [facility] [id number] [place] [address] Apr, [facility] [id number] [place] [address] Apr, [facility] [id number] [place] [address] March, [facility] [id number] [place] [address] March, [facility] [id number] [place] [address] March, [facility] [id number] [place] [address] March, [facility] [id number] [place] [address] March, [facility] [address] [id number] [place] [address] Feb, [facility] [id number] [place] [address] Feb, [facility] [id number] [place] [address] Feb, [facility] [id number] [place] [address] Jan, [facility] [address] [id number] [place] [address] Jan, [facility] [address] [id number] [place] [address] Jan, [facility] [address] [id number] [place] [address] Jan, [facility] [address] [id number] [place] [address] Jan, [facility] [address] [id number] [place] [address] Jan, [facility] [address] [id number] [place] [address] Jan, [facility] [address] [id number] [place] [address] Jan, [facility] [address] [id number] [place] [address] Jan, [facility] [address] [id number] [place] [address] Jan, [facility] [address] [id number] [place] [address] Jan, [facility] [address] [id number] [place] [address] Jan, [facility] [address] [id number] [place] [address] Jan, [facility] [address] [id number] [place] [address] Dec, 2014 [facility] [address] [id number] [place] [address] Dec, [facility] [address] [id number] [place] [address] Dec, [facility] [address] [id number] [place] [address] Dec, 2014 [facility] [address] [id number] [place] [address] Dec, [facility] [address] [id number] [place] [address] Dec, [facility] [address] [id number] [place] [address] Dec, [facility] [address] [id number] [place] [address] Dec, [facility] [address] [id number] [place] [address] Nov, [facility] [address] [id number] [place] [address] Nov, [facility] [address] [id number] [place] [address] Nov, [facility] [address] [facility] [id number] [place] [address] Nov, [facility] [place] [facility] [address] [id number] [place] [address] Nov, [facility] [place] [facility] [address] [id number] [place] [address] Nov, [facility] [place] [facility] [address] [id number] [place] [address] Nov, [facility] [place] [facility] [address] [id number] [place] [address] Nov, [facility] [place] [facility] [address] [id number] [place] [address] Nov, [facility] [place] [facility] [address] [id number] [place] [address] Oct, [facility] [place] [facility] [address] [id number] [place] [address] Oct, [facility] [place] [facility] [address] [id number] [place] [address] Oct, [facility] [place] [facility] [address] [id number] [place] [address] Oct, [facility] [place] [facility] [address] [id number] [place] [address] Oct, [facility] [place] [facility] [address] [id number] [place] [address] Oct, [facility] [place] [facility] [address] [id number] [place] [address] Oct, [facility] [place] [facility] [address] [id number] [place] [address] Oct, [facility] [place] [facility] [address] [id number] [place] [address] Oct, [facility] [place] [facility] [address] [id number] [place] [address] Oct, [facility] [place] [facility] [address] [id number] [place] [address] Oct, [facility] [place] [facility] [address] [id number] [place] [address] Oct, [facility] [place] [facility] [address] [id number] [place] [address] Oct, [facility] [place] [facility] [address] [id number] [place] [address] Oct, [facility] [place] [facility] [address] [id number] [place] [address] Sep, [facility] [place] [facility] [address] [id number] [place] [address] Sep, [facility] [place] [facility] [address] [id number] [place] [address] Sep, [facility] [place] [facility] [address] [id number] [place] [address] Sep, [facility] [place] [facility] [id number] [place] [address] Aug, [facility] [place] [facility] [address] [id number] [place] [address] Aug, [facility] [place] [facility] [address] [id number] [place] [address] Aug, [facility] [place] [facility] [address] [facility] [id number] [place] [address] Aug, 2013 [facility] [place] [facility] [address] [id number] [place] [address] Aug, 2013 [facility] [place] [facility] [address] [id number] [place] [address] Aug, 2013 [facility] [place] [facility] [address] [id number] [place] [address] Aug, 2013 [facility] [place] [facility] [address] [facility] [id number] [place] [address] Aug, 2013 [facility] [place] [facility] [address] [id number] [place] [address] Aug, [facility] [place] [facility] [address] [id number] [place] [address] Aug, [facility] [place] [facility] [address] [id number] [place] [address] 29 Sep, 2013 [facility] [place] [facility] [address] [id number] [place] [address] 29 Sep, 2013 [facility] [place] [facility] [address] [id number] [place] [address] 29 Sep, 2013 [facility] [place] [facility] [address] [id number] [place] [address] 29 Sep, 2013 [facility] [place] [facility] [address] [id number] [place] [address] 22 Sep, 2013 [facility] [place] [facility] [address] [id number] [place] [address] 22 Sep, 2013 [facility] [place] [facility] [address] [id number] [place] [address] 19 Sep, 2013 [facility] [place] [facility] [address] [id number] [place] [address] 19 Sep, 2013 [facility] [place] [facility] [address] [id number] [place] [address] 11 Jul, 2013 [facility] [place] [facility] [address] [id number] [facility] [place] [address] 11 Jul, 2013 [facility] [place] [facility] [address] [id number] [facility] [place] [address] 10 Jul, 2013 [facility] [place] [facility] [address] [facility] [id number] [facility] [place] [address] 10 Jul, 2013 [facility] [place] [facility] [address] [id number] [facility] [place] [address] 08 Jul, 2013 [facility] [place] [facility] [address] [facility] [id number] [facility] [place] [address] 08 Jul, 2013 [facility] [place] [facility] [address] [facility] [id number] [place] [address] Jul, 2013 [facility] [place] [facility] [address] [id number] [facility] [place] [address] Jul, 2013 [facility] [place] [facility] [address] [id number] [facility] [place] [address] Jul, 2013 [facility] [place] [facility] [address] [id number] [facility] [place] [address] Jul, 2013 [facility] [place] [facility] [address] [facility] [id number] [facility] [place] [address] Jun, [facility] [place] [facility] [address] [id number] [facility] [place] [address] Jun, [facility] [place] [facility] [address] [id number] [place] [address] Jun, [facility] [place] [facility] [address] [id number] [facility] [place] [address] Jun, [facility] [place] [facility] [address] [facility] [id number] [facility] [place] [address] Jun, [facility] [place] [facility] [address] [id number] [place] [address] Jun, [facility] [place] [facility] [address] [id number] [place] [address] Jun, [facility] [place] [facility] [address] [id number] [place] [address] Jun, [facility] [place] [facility] [address] [id number] [facility] [place] [address] Jun, [facility] [place] [facility] [address] [facility] [id number] [place] [address] Jun, [facility] [place] [facility] [address] [facility] [id number] [place] [address] Jun, [facility] [place] [facility] [address] [facility] [id number] [place] [address] Jun, [facility] [place] [facility] [address] [facility] [id number] [place] [address] Jun, [facility] [place] [facility] [address] [facility] [id number] [place] [address] Jun, [facility] [place] [facility] [address] [id number] [place] [address] Jun, [facility] [place] [facility] [address] [id number] [place] [address] May, [facility] [place] [facility] [address] [id number] [place] [address] May, [facility] [place] [facility] [address] [facility] [id number] [place] [address] May, [facility] [place] [facility] [address] [id number] [place] [address] May, [facility] [place] [facility] [address] [id number] [place] [address] May, [facility] [place] [facility] [address] [facility] [id number] [place] [address] May, [facility] [place] [facility] [address] [facility] [id number] [place] [address] May, [facility] [place] [facility] [address] [id number] [place] [address] May, [facility] [place] [facility] [address] [facility] [id number] [place] [address] Apr, [facility] [place] [facility] [address] [id number] [place] [address] Apr, [facility] [place] [facility] [address] [facility] [id number] [place] [address] Apr, [facility] [place] [facility] [address] [facility] [id number] [place] [address] Apr, [facility] [place] [facility] [address] [facility] [id number] [place] [address] Apr, [facility] [place] [facility] [address] [id number] [place] [address] Apr, [facility] [place] [facility] [address] [facility] [id number] [place] [address] Apr, [facility] [place] [facility] [address] [id number] [place] [address] Apr, [facility] [place] [facility] [address] [id number] [place] [address] Apr, [facility] [place] [facility] [address] [id number] [place] [address] Apr, [facility] [place] [facility] [address] [id number] [place] [address] Apr, [facility] [place] [facility] [address] [id number] [place] [address] Apr, [facility] [place] [facility] [address] [id number] [place] [address] Apr, [facility] [place] [facility] [address] [id number] [place] [address] Apr, [facility] [place] [facility] [address] [facility] [id number] [place] [address] Apr, [facility] [place] [facility] [address] [id number] [place] [address] Apr, [facility] [place] [facility] [address] [id number] [place] [address] Apr, [facility] [place] [facility] [address] [id number] [place] [address] Apr, [facility] [place] [facility] [address] [id number] [place] [address] March, [facility] [place] [facility] [address] [facility] [id number] [facility] [place] [address] March, [facility] [place] [facility] [address] [id number] [place] [address] March, [facility] [place] [facility] [address] [id number] [place] [address] March, [facility] [place] [facility] [address] [id number] [place] [address] March, [facility] [place] [facility] [address] [id number] [place] [address] March, [facility] [place] [facility] [address] [id number] [place] [address] March, [facility] [place] [facility] [address] [id number] [place] [address] March, [facility] [place] [facility] [address] [id number] [place] [address] March, [facility] [place] [facility] [address] [id number] [facility] [place] [address] Feb, [facility] [place] [facility] [address] [id number] [place] [address] Feb, [facility] [place] [facility] [address] [id number] [place] [address] Feb, [facility] [place] [facility] [address] [id number] [place] [address] Feb, [facility] [place] [facility] [address] [id number] [place] [address] Feb, [facility] [place] [facility] [address] [id number] [place] [address] Feb, [facility] [place] [facility] [address] [id number] [place] [address] Feb, [facility] [place] [facility] [address] [id number] [place] [address] Feb, [facility] [place] [facility] [address] [id number] [place] [address] Feb, [facility] [place] [facility] [address] [id number] [place] [address] Feb, [facility] [place] [facility] [address] [id number] [place] [address] Feb, [facility] [place] [facility] [address] [id number] [place] [address] Feb, [facility] [place] [facility] [address] [id number] [place] [address] Feb, [facility] [place] [facility] [address] [id number] [place] [address] Jan, [facility] [place] [facility] [address] [id number] [place] [address] Jan, [facility] [place] [facility] [address] [id number] [place] [address] Jan, [facility] [place] [facility] [address] [id number] [place] [address] Jan, [facility] [place] [facility] [address] [id number] [place] [address] Jan, [facility] [place] [facility] [address] [id number] [place] [address] Jan, [facility] [place] [facility] [address] [id number] [place] [address] Jan, [facility] [place] [facility] [address] [id number] [place] [address] Jan, [facility] [place] [facility] [address] [id number] [place] [address] Dec, [facility] [place] [facility] [address] [id number] [place] [address] Dec, [facility] [place] [facility] [address] [id number] [place] [address] Dec, [facility] [place] [facility] [address] [id number] [place] [address] Dec, [facility] [place] [facility] [address] [facility] [id number] [facility] [place] [address] Dec, [facility] [place] [facility] [address] [facility] [id number] [facility] [place] [address] Dec, [facility] [place] [facility] [address] [id number] [facility] [place] [address] Dec, [facility] [place] [facility] [address] [id number] [facility] [place] [address] Dec, [facility] [place] [facility] [address] [facility] [id number] [place] [address] Dec, [facility] [place] [facility] [address] [id number] [place] [address] Dec, [facility] [place] [facility] [address] [id number] [place] [address] Nov, [facility] [place] [facility] [address] [id number] [place] [address] Nov, [facility] [place] [facility] [address] [id number] [place] [address] Nov, [facility] [place] [facility] [address] [id number] [place] [address] Nov, [facility] [place] [facility] [address] [id number] [place] [address] Nov, [facility] [place] [facility] [address] [id number] [place] [address] Nov, [facility] [place] [facility] [address] [id number] [place] [address] Nov, [facility] [place] [facility] [address] [id number] [place] [address] Nov, [facility] [place] [facility] [address] [id number] [place] [address] Nov, [facility] [place] [facility] [address] [id number] [place] [address] Nov, [facility] [place] [facility] [address] [id number] [place] [address] 19 Oct, 2012 [facility] [place] [facility] [address] [id number] [place] [address] 19 Oct, 2012 [facility] [place] [facility] [address] [id number] [place] [address] 18 Oct, 2013 [facility] [place] [facility] [address] [id number] [place] [address] 18 Oct, 2013 [facility] [place] [facility] [address] [id number] [place] [address] 17 Oct, 2013 [facility] [place] [facility] [address] [id number] [place] [address] 17 Oct, 2013 [facility] [place] [facility] [address] [id number] [place] [address] 16 Oct, 2013 [facility] [place] [facility] [address] [id number] [place] [address] 16 Oct, 2013 [facility] [place] [facility] [address] [id number] [place] [address] 11 Oct, 2013 [facility] [place] [facility] [address] [id number] [place] [address] 11 Oct, 2013 [facility] [place] [facility] [address] [id number] [place] [address] 04 Oct, 2013 [facility] [place] [facility] [address] [id number] [place] [address] 04 Oct, 2013 [facility] [place] [facility] [address] [id number] [place] [address] 04 Oct, 2013 [facility] [place] [facility] [address] [id number] [place] [address] 04 Oct, 2013 [facility] [place] [facility] [address] [id number] [place] [address] 27 Sep, 2013 [facility] [place] [facility] [address] [id number] [place] [address] Sep, [facility] [place] [facility] [address] [id number] [place] [address] 18 Sep, 2013 [facility] [place] [facility] [address] [id number] [place] [address] 18 Sep, 2012 [facility] [place] [facility] [address] [id number] [place] [address] Sep, [facility] [place] [facility] [address] [id number] [place] [address] Sep, 2012 [facility] [place] [facility] [address] [id number] [place] [address] Aug, 2012 [facility] [place] [facility] [address] [facility] [id number] [place] [address] Aug, 2012 [facility] [place] [facility] [address] [id number] [place] [address] Aug, [facility] [place] [facility] [address] [id number] [place] [address] 17 Aug, 2012 [facility] [place] [facility] [address] [id number] [place] [address] 10 Aug, 2012 [facility] [place] [facility] [address] [id number] [place] [address] 10 Aug, 2012 [facility] [place] [facility] [address] [id number] [place] [address] 07 Aug, 2013 [facility] [place] [facility] [address] [id number] [place] [address] 02 Aug, 2013 [facility] [place] [facility] [address] [id number] [place] [address] 02 Aug, 2013 [facility] [place] [facility] [address] [id number] [place] [address] 25 Jul, 2012 [facility] [place] [facility] [address] [id number] [place] [address] 23 Sep, 2012 [facility] [place] [facility] [address] [id number] [place] [address] 21 Sep, 2012 [facility] [place] [facility] [address] [id number] [place] [address] 20 Sep, 2012 [facility] [place] [facility] [address] [id number] [facility] [place] [address] 18 Sep, 2012 [facility] [place] [facility] [address] [id number] [facility] [place] [address] 17 Sep, 2012 [facility] [place] [facility] [address] [facility] [id number] [facility] [place] [address] 16 Jul, 2012 [facility] [place] [facility] [address] [id number] [facility] [place] [address] 11 Jul, 2012 [facility] [place] [facility] [address] [facility] [id number] [facility] [place] [address] 09 Jul, 2012 [facility] [place] [facility] [address] [id number] [facility] [place] [address] 09 Jul, 2012 [facility] [place] [facility] [address] [id number] [facility] [place] [address] 06 Jul, 2012 [facility] [place] [facility] [address] [id number] [facility] [place] [address] 03 Jul, 2012 [facility] [place] [facility] [address] [id number] [place] [address] Jun, 2012 [facility] [place] [facility] [address] [facility] [id number] [facility] [place] [address] Jun, [facility] [address] [id number] [place] [address] Jun, [facility] [address] [id number] [place] [address] Jun, [facility] [address] [id number] [place] [address] Jun, [facility] [address] [facility] [id number] [facility] [place] [address] Jun, [facility] [address] [id number] [place] [address] 15 Jun, 2013 [facility] [address] [id number] [facility] [place] [address] 05 Jun, 2013 [facility] [address] [id number] [place] [address] Jun, [facility] [address] [id number] [facility] [place] [address] May, [facility] [address] [id number] [place] [address] May, [facility] [address] [facility] [id number] [place] [address] May, [facility] [address] [id number] [place] [address] May, [facility] [address] [facility] [id number] [place] [address] May, [facility] [address] [facility] [id number] [place] [address] May, [facility] [address] [id number] [place] [address] May, [facility] [address] [id number] [place] [address] March, [facility] [address] [id number] [place] [address] March, [facility] [address] [id number] [place] [address] March, [facility] [address] [id number] [place] [address] Dec, [facility] [address] [id number] [place] [address] Nov, [facility] [address] [id number] [place] [address] Aug, [facility] [address] [facility] [id number] [place] [address] Aug, [facility] [address] [id number] [place] [address] Jun, [facility] [address] [id number] [place] [address] Jun, [facility] [address] [id number] [place] [address] Jun, [facility] [address] [id number] [place] [address] Jun, [facility] [address] [id number] [facility] [place] [address] May, [facility] [address] [id number] [place] [address] May, [facility] [address] [id number] [place] [address] May, [facility] [address] [facility] [id number] [place] [address] May, [facility] [address] [id number] [place] [address] May, [facility] [address] [id number] [place] [address] May, [facility] [address] [id number] [place] [address] May, [facility] [address] [id number] [place] [address] Apr, [facility] [address] [id number] [place] [address] Apr, [facility] [address] [id number] [place] [address] Apr, [facility] [address] [id number] [place] [address] Apr, [facility] [address] [id number] [place] [address] March, [facility] [address] [id number] [place] [address] March, [facility] [address] [id number] [place] [address] March, [facility] [address] [id number] [place] [address] March, [facility] [address] [id number] [place] [address] March, [facility] [address] [facility] [id number] [facility] [place] [address] March, [facility] [address] [id number] [place] [address] March, [facility] [address] [id number] [place] [address] March, [facility] [address] [id number] [place] [address] March, [facility] [address] [id number] [place] [address] Feb, [facility] [address] [id number] [place] [address] Feb, [facility] [address] [id number] [place] [address] Jan, [facility] [address] [id number] [place] [address] Jan, [facility] [address] [id number] [place] [address] Jan, [facility] [address] [id number] [place] [address] Jan, [facility] [address] [id number] [place] [address] Dec, [facility] [address] [id number] [place] [address] 16 Dec, 2011 [facility] [address] [id number] [place] [address] Dec, [facility] [address] [id number] [place] [address] Nov, [facility] [address] [id number] [place] [address] Oct, [facility] [address] [id number] [place] [address] Oct, [facility] [address] [id number] [place] [address] 15 Oct, 2011 [facility] [address] [id number] [place] [address] 14 Oct, 2011 [facility] [address] [id number] [place] [address] 14 Oct, 2011 [facility] [id number] [place] [address] 12 Oct, 2011 [facility] [address] [id number] [place] [address] 09 Oct, 2011 [facility] [address] [id number] [place] [address] Oct, [facility] [address] [id number] [place] [address] 22 Sep, 2011 [facility] [id number] [place] [address] 17 Sep, 2011 [facility] [id number] [place] [address] 14 Sep, 2011 [facility] [id number] [place] [address] Sep, [facility] [id number] [place] [address] 10 Sep, 2011 [facility] [id number] [place] [address] Sep, [facility] [address] [id number] [place] [address] 08 Sep, 2011 [facility] [address] [id number] [place] [address] Sep, [facility] [id number] [place] [address] Sep, [facility] [address] [id number] [place] [address] 24 Aug, 2011 [facility] [address] [id number] [place] [address] Jul, [facility] [address] [facility] [id number] [place] [address] Oct, [facility] [address] [id number] [place] [address] Oct, [facility] [address] [facility] [id number] [place] [address] Oct, IMMUNIZATIONS No Known Immunizations SOCIAL HISTORY [...]
--- OUTSIDE RECORDS SUMMARY | 2020-03-19 05:55 | XMS REPORT ---
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 88336462 Problem Chronic kidney disease, unspecified N18.9 Active 263281144 Problem Anemia, unspecified D64.9 Active 011617736 Problem Irritable bowel K58.9 Active 1074 3008 Problem Irritable bowel syndrome with diarrhea K58.0 Active 090956983 Problem Claudication I73.9 Active 8657739 6 Problem Intractable migraine without aura and with status migr ainosus G43.011 Active 374894118 Problem Peritoneal dialysis status Z99.2 Act moody 865639099 Problem Migraine without aura and without status migrain osus, not intractable G43.009 Active 720296824 Problem Other insomnia G47.09 Active 30074 2000 Problem Dysthymia F34.1 Active 92096018 Problem Chronic kidney disease, stage 4 (severe) N18.4 Active 174536426 Problem Migraine with aura and without status migrainosu s, not intractable G43.109 Active 2255759 Problem Autonomic neuropathy G90.9 Active 333760557 Problem Type 1 diabetes mellitus with complications E10.8 Active 579390876 Problem Menorrhagia with regular cycle N92.0 Active 983803040 Problem Other chronic pain G89.29 Active 8 9212149 Problem Lymphedema I89.0 Active 063874881 Problem Essential hypertension I10 Active 99332176 Problem Moderate episode of recurrent major depressive disorder F33.1 Active 170968486 Problem Type 1 diabetes mellitus without complications E10 .9 Active 027811932 Problem Primary insomnia F51.01 Active 397 2004 Problem Migraine G43.909 Active 36056792 Problem Low back pain M54.5 Active 268497 009 Problem Diastolic dysfunction I51.89 Active 3956824 Problem ESRF (end stage renal failure) N18.6 Active 17982401 Problem Restless legs G25.81 Active 658128 08 Problem Hyperthyroidism E05.90 Active 3448 6009 ALLERGIES No Information ENCOUNTERS Encounter Location Date Diagnosis [place] [address] [id number] Apr, [place] [address] [id number] Jan, Migraine without aura and without status migrainosus, not intractable G43.009 and Type 1 diabetes mellitus with hypoglycemia without coma E10.649 [place] [address] [address] 11 Jan, 2020 [place] [address] [address] Jan, Type 1 diabetes mellitus with hyperglyce sebastian E10.65 ; Orthostatic hypotension I95.1 and Restless legs G25.81 [facility] [id number] [place] [id number] Dec, Caries K02.9 and Dental examination Z01. 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 ; Migraine without aura and without status migrainosus, not intractable G43.009 ; Chronic kidney disease, stage 4 (severe) N18.4 ; Claudication I73.9 ; Peritoneal dialysis status Z99.2 ; Diastolic dysfunction I51.89 ; Primary insomnia F51.01 and Burn T30.0 [place] [address] [address] Sep, Moderate episode of recurrent major depr essive disorder F33.1 and Primary insomnia F51.01 [facility] [address] [address] Aug, Hyperthyroidism E05.90 [facility] [address] [address] May, Restless legs G25.81 [facility] [address] [address] May, [facility] [address] [address] May, [facility] [address] [address] May, Type 1 diabetes mellitus with hypoglycem ia without coma E10.649 ; ESRF (end stage renal failure) N18.6 ; Leg cramps R25.2 ; Restless legs G25.81 and Low back pain M54.5 [place] [address] [address] Apr, Low back pain M54.5 [place] [address] [address] Apr, [facility] [address] [address] March, Low back pain M54.5 [facility] [address] [address] March, [facility] [address] [address] Feb, Low back pain M54.5 [facility] [address] [address] Jan, Low back pain M54.5 [facility] [address] [address] Jan, [facility] [address] [address] 08 Jan, 2019 [place] [address] [address] Jan, [place] [address] [address] Dec, Type 1 diabetes mellitus with hypoglycem ia without coma E10.649 and Low back pain M54.5 [place] [address] [address] Dec, Low back pain M54.5 [place] [address] [address] 13 Dec, 2018 Diastolic dysfunction I51.89 ; Essential hypertension I10 and Chronic kidney disease, stage 4 (severe) N18.4 [place] [address] [address] 11 Dec, 2018 RUQ abdominal pain R10.11 ; Type 1 diabe camryn mellitus without complications E10.9 ; Therapeutic drug monitoring Z51.81 ; Migraine with aura and without status migrainosus, not intractable G43.109 and Intractable migraine without aura and with status migrainosus G43.011 [place] [address] [address] Nov, Low back pain M54.5 [place] [address] [address] Nov, [place] [address] [address] Nov, Intractable migraine without aura and wi th status migrainosus G43.011 ; Lymphedema I89.0 ; Pain in right shoulder M25.511 ; Other chronic pain G89.29 ; Irritable bowel syndrome with diarrhea K58.0 ; Type 1 diabetes mellitus without complications E10.9 and Essential hypertension I10 [place] [address] [address] Oct, Low back pain M54.5 [place] [address] [address] Oct, [facility] [address] [address] Oct, Orthostatic hypotension I95.1 ; Shortnes s of breath R06.02 ; Leg swelling M79.89 ; Type 1 diabetes mellitus without complications E10.9 and Claudication I73.9 [facility] [address] [address] Sep, Low back pain M54.5 [facility] [address] [address] Sep, Low back pain M54.5 [place] [address] [address] Aug, [facility] [address] [address] Aug, Migraine without aura and without status migrainosus, not intractable G43.009 [facility] [address] [address] Aug, Low back pain M54.5 [facility] [address] [facility] [id number] [place] [address] Aug, Acute rhinosinusitis J01.90 and Sore throat J02.9 [facility] [address] [address] Jul, Low back pain M54.5 [facility] [address] [address] Jul, Migraine without aura and without status migrainosus, not intractable G43.009 [facility] [address] [address] Jun, Low back pain M54.5 [facility] [address] [address] Jun, [facility] [address] [address] Jun, Orthostatic hypotension I95.1 ; Shortnes s of breath R06.02 ; Type 1 diabetes mellitus without complications E10.9 and Leg swelling M79.89 [place] [address] [address] Jun, Low back pain M54.5 [place] [address] [address] Jun, [place] [address] [address] May, Migraine without aura and without status migrainosus, not intractable G43.009 [place] [address] [address] May, Migraine without aura and without status migrainosus, not intractable G43.009 ; Restless legs syndrome G25.81 ; Leg cramps R25.2 ; Chronic kidney disease, unspecified N18.9 ; Postural hypotension I95.1 ; Diarrhea, unspecified type R19.7 and Cough R05 [place] [address] [address] May, [place] [address] [address] May, [place] [address] [address] May, Orthostatic hypotension I95.1 ; Shortnes s of breath R06.02 ; Type 1 diabetes mellitus with complications E10.8 and Leg swelling M79.89 [place] [address] [address] May, [place] [address] [address] May, Low back pain M54.5 [place] [address] [address] Apr, Type 1 diabetes mellitus with hyperglyce sebastian E10.65 [place] [address] [address] Apr, Low back pain M54.5 [facility] [address] [address] Apr, [facility] [address] [address] Apr, [facility] [address] [address] March, [facility] [address] [address] March, Low back pain M54.5 [facility] [address] [address] March, [facility] [address] [address] Feb, [facility] [address] [address] Feb, Low back pain M54.5 [facility] [address] [address] Jan, Restless legs syndrome G25.81 [facility] [address] [address] Jan, Low back pain M54.5 [facility] [address] [address] Jan, [facility] [address] [address] Jan, Type 1 diabetes mellitus without complic ations E10.9 ; Low back pain M54.5 ; Cough R05 ; Diarrhea, unspecified type R19.7 ; Migraine without aura and without status migrainosus, not intractable G43.009 and Uses control Z30.9 [facility] [address] [address] Dec, Low back pain M54.5 [facility] [address] [address] Dec, [place] [address] [address] Nov, Well woman exam Z01.419 ; Menorrhagia wi th regular cycle N92.0 ; Vaginal dryness N89.8 and Migraine with aura and without status migrainosus, not intractable G43.109 [facility] [address] [address] Nov, [place] [address] [address] Nov, Low back pain M54.5 [place] [address] [address] Oct, Low back pain M54.5 [place] [address] [address] Oct, Migraine without aura and without status migrainosus, not intractable G43.009 [place] [address] [address] Sep, Low back pain M54.5 [place] [address] [address] Sep, [place] [address] [address] Sep, Migraine without aura and without status migrainosus, not intractable G43.009 [place] [address] [address] Sep, Type 1 diabetes mellitus with hypoglycem ia without coma E10.649 ; Anemia D64.9 ; Migraine without aura and without status migrainosus, not intractable G43.009 ; Chronic kidney disease, unspecified N18.9 ; Autonomic neuropathy G90.9 and Postural hypotension I95.1 [place] [address] [address] Sep, Low back pain M54.5 [place] [address] [address] Aug, Low back pain M54.5 [facility] [address] [address] Jul, [facility] [address] [address] Jul, Low back pain M54.5 [facility] [address] [address] Jun, [facility] [address] [address] Jun, Low back pain M54.5 [facility] [address] [address] Jun, Migraine without aura and without status migrainosus, not intractable G43.009 [place] [address] [address] Jun, Type 1 diabetes mellitus with hyperglyce sebastian E10.65 ; Dysthymia F34.1 and Migraine without aura and without status migrainosus, not intractable G43.009 [facility] [address] [address] Jun, [facility] [address] [address] May, Type 1 diabetes mellitus with hyperglyce sebastian E10.65 [facility] [address] [address] May, Low back pain M54.5 [facility] [address] [address] May, Type 1 diabetes mellitus with hyperglyce sebastian E10.65 [facility] [address] [address] Apr, [facility] [address] [address] Apr, Chronic kidney disease, stage 4 (severe) N18.4 [facility] [address] [address] Apr, Low back pain M54.5 [facility] [address] [address] March, [facility] [address] [address] March, Low back pain M54.5 [facility] [address] [address] Feb, [facility] [address] [address] Feb, [facility] [address] [address] Feb, Low back pain M54.5 [facility] [address] [address] Feb, Low back pain M54.5 [facility] [address] [address] Feb, Migraine without aura and without status migrainosus, not intractable G43.009 [facility] [address] [address] Feb, [facility] [address] [address] Jan, Low back pain M54.5 [facility] [address] [address] Jan, Type 1 diabetes mellitus without complic ations E10.9 ; Anemia D64.9 ; Chronic kidney disease, unspecified N18.9 ; Migraine without aura and without status migrainosus, not intractable G43.009 and Other insomnia G47.09 [facility] [address] [address] Jan, [facility] [address] [address] Dec, Low back pain M54.5 [facility] [address] [address] Dec, [place] [address] [address] Dec, [place] [address] [address] 08 Dec, 2016 Shortness of breath R06.02 ; Type 1 diab etes mellitus without complications E10.9 and Leg swelling M79.89 [place] [address] [address] Nov, Low back pain M54.5 [place] [address] [address] Nov, Viral syndrome B34.9 [place] [address] [address] Oct, Low back pain M54.5 [place] [address] [address] Oct, [place] [address] [address] Oct, Low back pain M54.5 [place] [address] [address] Sep, [place] [address] [address] Sep, Fatigue, unspecified type R53.83 ; Type 1 diabetes mellitus without complications E10.9 and Anemia D64.9 [place] [address] [address] Sep, Low back pain M54.5 [place] [address] [address] Sep, Type 1 diabetes mellitus with hyperglyce sebastian E10.65 [place] [address] [address] Aug, Type 1 diabetes mellitus without complic ations E10.9 [place] [address] [address] Aug, [facility] [address] [address] Aug, [facility] [address] [address] Jul, [facility] [address] [address] 14 Jul, 2016 Low back pain M54.5 [facility] [address] [address] 12 Jul, 2016 Hyperkalemia, diminished renal excretion E87.5 [facility] [address] [address] 09 Jul, 2016 Hyperkalemia, diminished renal excretion E87.5 [facility] [address] [address] Jun, [facility] [address] [address] Jun, Low back pain M54.5 [facility] [address] [address] Jun, Anemia D64.9 ; Autonomic neuropathy G90. 9 and Postural hypotension I95.1 [facility] [address] [address] Jun, [facility] [address] [address] May, Type 1 diabetes mellitus with complicati ons E10.8 and Anemia D64.9 [facility] [address] [address] May, Low back pain M54.5 [facility] [address] [address] Apr, [facility] [address] [address] Apr, Low back pain M54.5 [facility] [address] [address] Apr, [facility] [address] [address] Apr, [facility] [address] [address] March, Low back pain M54.5 and Other chronic pa in G89.29 [facility] [address] [address] March, Type 1 diabetes mellitus without complic ations E10.9 [facility] [address] [address] March, [facility] [address] [address] March, [facility] [address] [address] Feb, [facility] [address] [address] Feb, Type 1 diabetes mellitus without complic ations E10.9 [facility] [address] [address] Feb, Trochanteric bursitis, right hip M70.61 [facility] [address] [address] Jan, [facility] [address] [address] Jan, [facility] [address] [address] Dec, Type 1 diabetes mellitus with complicati ons E10.8 [facility] [address] [address] Dec, [facility] [address] [address] Dec, Anemia D64.9 ; Autonomic neuropathy G90. 9 and Postural hypotension I95.1 [place] [address] [address] Dec, [place] [address] [address] Nov, Sore throat J02.9 [place] [address] [address] Nov, Type 1 diabetes mellitus with complicati ons E10.8 [place] [address] [address] Nov, Type 1 diabetes mellitus with diabetic n ephropathy E10.21 ; Proteinuria, unspecified R80.9 and Chronic kidney disease, unspecified N18.9 [place] [address] [address] Nov, [place] [address] [address] Nov, Trochanteric bursitis, right hip M70.61 [place] [address] [address] Nov, [place] [address] [address] Oct, [place] [address] [address] Oct, [place] [address] [address] Oct, [place] [address] [address] Sep, [place] [address] [address] Sep, [place] [address] [address] Sep, Type 2 diabetes mellitus with complicati on E11.8 and Right hip pain M25.551 [place] [address] [address] Sep, [facility] [id number] [place] [address] Aug, [facility] [address] [address] Aug, [facility] [address] [address] Aug, [facility] [address] [address] Aug, Type 1 diabetes mellitus without complic ations E10.9 [facility] [address] [address] 16 Jul, 2015 [facility] [address] [address] Jul, [facility] [address] [address] Jul, [facility] [address] [address] Jun, [facility] [address] [address] Jun, [facility] [address] [address] Jun, [facility] [address] [address] Jun, [facility] [address] [address] Jun, [facility] [address] [address] Jun, Diabetes mellitus without mention of com plication, type I [juvenile type], not stated as uncontrolled 250.01 [facility] [id number] [place] [address] May, [facility] [address] [address] May, [facility] [id number] [place] [address] May, [facility] [id number] [place] [address] May, Autonomic neuropathy 337.9 ; Postural hy potension 458.0 and Anemia 285.9 [facility] [id number] [place] [address] May, [facility] [id number] [place] [address] Apr, [facility] [id number] [place] [address] Apr, [facility] [id number] [place] [address] Apr, [facility] [id number] [place] [address] Apr, [facility] [id number] [place] [address] Apr, [facility] [id number] [place] [address] March, [facility] [id number] [place] [address] March, [facility] [id number] [place] [address] March, [facility] [id number] [place] [address] March, [facility] [id number] [place] [address] March, [facility] [id number] [place] [address] Feb, [facility] [id number] [place] [address] Feb, [facility] [id number] [place] [address] Feb, [facility] [address] [id number] [place] [address] 30 Jan, 2015 [facility] [address] [id number] [place] [address] Jan, [facility] [address] [id number] [place] [address] Jan, [facility] [address] [id number] [place] [address] Jan, [facility] [address] [id number] [place] [address] Jan, [facility] [address] [id number] [place] [address] Jan, [facility] [address] [id number] [place] [address] Jan, [facility] [address] [id number] [place] [address] Jan, [facility] [address] [id number] [place] [address] Jan, [facility] [address] [id number] [place] [address] Jan, [facility] [address] [id number] [place] [address] Jan, [facility] [address] [id number] [place] [address] Jan, [facility] [address] [id number] [place] [address] Jan, [facility] [address] [id number] [place] [address] Dec, [facility] [address] [id number] [place] [address] Dec, [facility] [address] [id number] [place] [address] Dec, [facility] [address] [id number] [place] [address] Dec, [facility] [address] [id number] [place] [address] Dec, [facility] [address] [id number] [place] [address] Dec, [facility] [address] [id number] [place] [address] Dec, [facility] [address] [id number] [place] [address] Dec, [facility] [address] [id number] [place] [address] Nov, [facility] [address] [id number] [place] [address] Nov, [facility] [address] [id number] [place] [address] Nov, [facility] [address] [id number] [place] [address] Nov, [facility] [address] [id number] [place] [address] Nov, [facility] [address] [id number] [place] [address] Nov, [facility] [address] [id number] [place] [address] Nov, [facility] [address] [id number] [place] [address] Nov, [facility] [address] [id number] [place] [address] Nov, [facility] [address] [id number] [place] [address] Oct, [facility] [address] [id number] [place] [address] Oct, [facility] [address] [id number] [place] [address] Oct, [facility] [address] [id number] [place] [address] Oct, [facility] [address] [id number] [place] [address] Oct, [facility] [address] [id number] [place] [address] Oct, [facility] [address] [id number] [place] [address] Oct, [facility] [address] [id number] [place] [address] Oct, [facility] [address] [id number] [place] [address] Oct, [facility] [address] [id number] [place] [address] Oct, [facility] [address] [id number] [place] [address] Oct, [facility] [address] [id number] [place] [address] Oct, [facility] [place] [facility] [address] [id number] [place] [address] Oct, [facility] [place] [facility] [address] [id number] [place] [address] Oct, [facility] [place] [facility] [address] [id number] [place] [address] Sep, [facility] [place] [facility] [address] [id number] [place] [address] Sep, [facility] [place] [facility] [address] [id number] [place] [address] Sep, [facility] [place] [facility] [id number] [place] [address] Sep, [facility] [place] [facility] [address] [id number] [place] [address] Aug, [facility] [place] [facility] [id number] [place] [address] Aug, [facility] [place] [facility] [address] [facility] [id number] [place] [address] Aug, [facility] [place] [facility] [address] [id number] [place] [address] Aug, 2013 [facility] [place] [facility] [address] [id number] [place] [address] Aug, 2013 [facility] [place] [facility] [address] [id number] [place] [address] Aug, 2013 [facility] [place] [facility] [address] [facility] [id number] [place] [address] Aug, 2013 [facility] [place] [facility] [address] [id number] [place] [address] Aug, 2013 [facility] [place] [facility] [address] [id number] [place] [address] Aug, [facility] [place] [facility] [address] [id number] [place] [address] Aug, [facility] [place] [facility] [address] [id number] [place] [address] 29 Jul, 2013 [facility] [place] [facility] [address] [id number] [place] [address] 29 Sep, 2013 [facility] [place] [facility] [address] [id number] [place] [address] 29 Jul, 2013 [facility] [place] [facility] [address] [id number] [place] [address] 29 Sep, 2013 [facility] [place] [facility] [address] [id number] [place] [address] 22 Sep, 2013 [facility] [place] [facility] [address] [id number] [place] [address] 22 Jul, 2013 [facility] [place] [facility] [address] [id number] [place] [address] 19 Jul, 2013 [facility] [place] [facility] [address] [id number] [place] [address] 19 Jul, 2013 [facility] [place] [facility] [address] [id number] [place] [address] 11 Jul, 2013 [facility] [place] [facility] [address] [id number] [place] [address] 11 Jul, 2013 [facility] [place] [facility] [address] [facility] [id number] [place] [address] 10 Jul, 2013 [facility] [place] [facility] [address] [id number] [place] [address] 10 Jul, 2013 [facility] [place] [facility] [address] [facility] [id number] [place] [address] 08 Jul, 2013 [facility] [place] [facility] [address] [facility] [id number] [place] [address] 08 Jul, 2013 [facility] [place] [facility] [address] [id number] [place] [address] Jul, 2013 [facility] [place] [facility] [address] [id number] [place] [address] Jul, 2013 [facility] [place] [facility] [address] [id number] [place] [address] Jul, 2013 [facility] [place] [facility] [address] [facility] [id number] [place] [address] Jul, 2013 [facility] [place] [facility] [address] [id number] [place] [address] Jun, [facility] [place] [facility] [address] [id number] [place] [address] Jun, [facility] [place] [facility] [address] [id number] [place] [address] Jun, [facility] [place] [facility] [address] [facility] [id number] [place] [address] Jun, [facility] [place] [facility] [address] [id number] [place] [address] Jun, [facility] [place] [facility] [address] [id number] [place] [address] Jun, [facility] [place] [facility] [address] [id number] [place] [address] Jun, [facility] [place] [facility] [address] [id number] [place] [address] Jun, [facility] [place] [facility] [address] [facility] [id number] [place] [address] Jun, [facility] [place] [facility] [address] [facility] [id number] [place] [address] Jun, [facility] [place] [facility] [address] [facility] [id number] [place] [address] Jun, [facility] [place] [facility] [address] [facility] [id number] [place] [address] Jun, [facility] [place] [facility] [address] [facility] [id number] [place] [address] Jun, [facility] [place] [facility] [address] [id number] [place] [address] Jun, [facility] [place] [facility] [address] [id number] [place] [address] Jun, [facility] [place] [facility] [address] [id number] [place] [address] May, [facility] [place] [facility] [address] [facility] [id number] [place] [address] May, [facility] [place] [facility] [address] [id number] [place] [address] May, [facility] [place] [facility] [address] [id number] [place] [address] May, [facility] [place] [facility] [address] [facility] [id number] [place] [address] May, [facility] [place] [facility] [address] [facility] [id number] [place] [address] May, [facility] [place] [facility] [address] [id number] [place] [address] May, [facility] [place] [facility] [address] [facility] [id number] [place] [address] May, [facility] [place] [facility] [address] [id number] [place] [address] Apr, [facility] [place] [facility] [address] [facility] [id number] [place] [address] 24 Apr, 2014 [facility] [place] [facility] [address] [facility] [id number] [place] [address] Apr, [facility] [place] [facility] [address] [facility] [id number] [place] [address] Apr, [facility] [place] [facility] [address] [facility] [id number] [place] [address] Apr, [facility] [place] [facility] [address] [facility] [id number] [place] [address] Apr, [facility] [place] [facility] [address] [id number] [place] [address] Apr, [facility] [place] [facility] [address] [id number] [place] [address] Apr, [facility] [place] [facility] [address] [id number] [place] [address] Apr, [facility] [place] [facility] [address] [id number] [place] [address] Apr, [facility] [place] [facility] [address] [id number] [place] [address] Apr, [facility] [place] [facility] [address] [id number] [place] [address] Apr, [facility] [place] [facility] [address] [id number] [place] [address] Apr, [facility] [place] [facility] [address] [facility] [id number] [place] [address] Apr, [facility] [place] [facility] [address] [id number] [place] [address] Apr, [facility] [place] [facility] [address] [id number] [place] [address] Apr, [facility] [place] [facility] [address] [id number] [place] [address] Apr, [facility] [place] [facility] [address] [id number] [place] [address] Apr, [facility] [place] [facility] [address] [facility] [id number] [place] [address] March, [facility] [place] [facility] [address] [id number] [place] [address] March, [facility] [place] [facility] [address] [id number] [place] [address] March, [facility] [place] [facility] [address] [id number] [place] [address] March, [facility] [place] [facility] [address] [id number] [place] [address] March, [facility] [place] [facility] [address] [id number] [place] [address] March, [facility] [place] [facility] [address] [id number] [place] [address] March, [facility] [place] [facility] [address] [id number] [place] [address] March, [facility] [place] [facility] [address] [id number] [place] [address] March, [facility] [place] [facility] [address] [id number] [place] [address] Feb, [facility] [place] [facility] [address] [id number] [place] [address] Feb, [facility] [place] [facility] [address] [id number] [place] [address] Feb, [facility] [place] [facility] [address] [id number] [place] [address] Feb, [facility] [place] [facility] [address] [id number] [place] [address] Feb, [facility] [place] [facility] [address] [id number] [place] [address] Feb, [facility] [place] [facility] [address] [id number] [place] [address] Feb, [facility] [place] [facility] [address] [id number] [place] [address] Feb, [facility] [place] [facility] [address] [id number] [place] [address] Feb, [facility] [place] [facility] [address] [id number] [place] [address] Feb, [facility] [place] [facility] [address] [id number] [place] [address] Feb, [facility] [place] [facility] [address] [id number] [place] [address] Feb, [facility] [place] [facility] [address] [id number] [place] [address] Feb, [facility] [place] [facility] [address] [id number] [place] [address] Jan, [facility] [place] [facility] [address] [id number] [place] [address] Jan, [facility] [place] [facility] [address] [id number] [place] [address] Jan, [facility] [place] [facility] [address] [id number] [place] [address] Jan, [facility] [place] [facility] [address] [id number] [place] [address] Jan, [facility] [place] [facility] [address] [id number] [place] [address] Jan, [facility] [place] [facility] [address] [id number] [place] [address] Jan, [facility] [place] [facility] [address] [id number] [place] [address] Jan, [facility] [place] [facility] [address] [id number] [place] [address] Dec, [facility] [place] [facility] [address] [id number] [place] [address] Dec, [facility] [place] [facility] [address] [id number] [place] [address] Dec, [facility] [place] [facility] [address] [facility] [id number] [place] [address] Dec, [facility] [place] [facility] [address] [facility] [id number] [place] [address] Dec, [facility] [place] [facility] [address] [id number] [place] [address] Dec, [facility] [place] [facility] [address] [id number] [place] [address] Dec, [facility] [place] [facility] [address] [facility] [id number] [place] [address] Dec, [facility] [place] [facility] [address] [id number] [place] [address] Dec, [facility] [place] [facility] [address] [id number] [place] [address] Dec, [facility] [place] [facility] [address] [id number] [place] [address] Nov, [facility] [place] [facility] [address] [id number] [place] [address] Nov, [facility] [place] [facility] [address] [id number] [place] [address] Nov, [facility] [place] [facility] [address] [id number] [place] [address] Nov, [facility] [place] [facility] [address] [id number] [place] [address] Nov, [facility] [place] [facility] [address] [id number] [place] [address] Nov, [facility] [place] [facility] [address] [id number] [place] [address] Nov, [facility] [place] [facility] [address] [id number] [place] [address] Nov, [facility] [place] [facility] [address] [id number] [place] [address] Nov, [facility] [place] [facility] [address] [id number] [place] [address] Nov, [facility] [place] [facility] [address] [id number] [place] [address] Oct, [facility] [place] [facility] [address] [id number] [place] [address] 19 Oct, 2013 [facility] [place] [facility] [address] [id number] [place] [address] 18 Oct, 2013 [facility] [place] [facility] [address] [id number] [place] [address] 18 Oct, 2013 [facility] [place] [facility] [address] [id number] [place] [address] 17 Oct, 2013 [facility] [place] [facility] [address] [id number] [place] [address] 17 Oct, 2013 [facility] [place] [facility] [address] [id number] [place] [address] 16 Oct, 2013 [facility] [place] [facility] [address] [id number] [place] [address] 16 Oct, 2013 [facility] [place] [facility] [address] [id number] [place] [address] Oct, [facility] [place] [facility] [address] [id number] [place] [address] Oct, [facility] [place] [facility] [address] [id number] [place] [address] 04 Oct, 2013 [facility] [place] [facility] [address] [id number] [place] [address] 04 Oct, 2013 [facility] [place] [facility] [address] [id number] [place] [address] 04 Oct, 2013 [facility] [place] [facility] [address] [id number] [place] [address] Oct, [facility] [place] [facility] [address] [id number] [place] [address] Sep, [facility] [place] [facility] [address] [id number] [place] [address] Sep, [facility] [place] [facility] [address] [id number] [place] [address] Sep, [facility] [place] [facility] [address] [id number] [place] [address] Sep, [facility] [place] [facility] [address] [id number] [place] [address] Sep, [facility] [place] [facility] [address] [id number] [place] [address] Sep, [facility] [place] [facility] [address] [id number] [place] [address] Aug, [facility] [place] [facility] [address] [id number] [place] [address] Aug, [facility] [place] [facility] [address] [id number] [place] [address] Aug, [facility] [place] [facility] [address] [id number] [place] [address] 17 Aug, 2013 [facility] [place] [facility] [address] [id number] [place] [address] 10 Aug, 2012 [facility] [place] [facility] [address] [id number] [place] [address] 10 Aug, 2013 [facility] [place] [facility] [address] [id number] [place] [address] 07 Aug, 2013 [facility] [place] [facility] [address] [id number] [place] [address] 02 Aug, 2013 [facility] [place] [facility] [address] [id number] [place] [address] 02 Aug, 2013 [facility] [place] [facility] [address] [id number] [place] [address] 25 Jul, 2012 [facility] [place] [facility] [address] [id number] [place] [address] 23 Sep, 2012 [facility] [place] [facility] [address] [id number] [place] [address] 21 Jul, 2012 [facility] [place] [facility] [address] [id number] [place] [address] 20 Sep, 2012 [facility] [place] [facility] [address] [id number] [place] [address] 18 Sep, 2012 [facility] [place] [facility] [address] [facility] [id number] [place] [address] 17 Jul, 2012 [facility] [place] [facility] [address] [id number] [place] [address] 16 Sep, 2012 [facility] [place] [facility] [address] [facility] [id number] [place] [address] 11 Sep, 2012 [facility] [place] [facility] [address] [id number] [place] [address] 09 Jul, 2012 [facility] [place] [facility] [address] [id number] [place] [address] 09 Jul, 2012 [facility] [place] [facility] [address] [id number] [place] [address] 06 Jul, 2012 [facility] [place] [facility] [address] [id number] [place] [address] 03 Jul, 2012 [facility] [place] [facility] [address] [facility] [id number] [place] [address] Jun, [facility] [place] [facility] [address] [id number] [place] [address] Jun, [facility] [place] [facility] [address] [id number] [place] [address] Jun, [facility] [place] [facility] [address] [id number] [place] [address] Jun, 2012 [facility] [place] [facility] [address] [facility] [id number] [place] [address] Jun, [facility] [place] [facility] [address] [id number] [place] [address] Jun, 2012 [facility] [place] [facility] [address] [id number] [place] [address] 15 Jun, 2013 [facility] [place] [facility] [address] [id number] [place] [address] 05 Jun, 2012 [facility] [place] [facility] [address] [id number] [place] [address] Jun, [facility] [place] [facility] [address] [facility] [id number] [place] [address] May, [facility] [place] [facility] [address] [facility] [id number] [place] [address] May, [facility] [place] [facility] [address] [id number] [place] [address] May, [facility] [place] [facility] [address] [id number] [place] [address] May, [facility] [place] [facility] [address] [id number] [place] [address] May, [facility] [place] [facility] [address] [id number] [place] [address] May, [facility] [place] [facility] [address] [id number] [place] [address] May, [facility] [place] [facility] [address] [id number] [place] [address] March, [facility] [place] [facility] [address] [id number] [place] [address] March, [facility] [place] [facility] [address] [id number] [place] [address] March, [facility] [place] [facility] [address] [id number] [place] [address] Dec, [facility] [place] [facility] [address] [id number] [place] [address] Nov, [facility] [place] [facility] [address] [facility] [id number] [place] [address] Aug, [facility] [place] [facility] [address] [id number] [place] [address] Aug, [facility] [place] [facility] [address] [id number] [place] [address] Jun, [facility] [place] [facility] [address] [id number] [place] [address] Jun, [facility] [place] [facility] [address] [id number] [place] [address] Jun, [facility] [address] [id number] [facility] [address] Jun, [facility] [address] [id number] [place] [address] May, [facility] [address] [id number] [place] [address] May, [facility] [address] [facility] [id number] [place] [address] May, [facility] [address] [id number] [place] [address] May, [facility] [address] [id number] [place] [address] May, [facility] [address] [id number] [place] [address] May, [facility] [address] [id number] [place] [address] May, [facility] [address] [id number] [place] [address] Apr, [facility] [address] [id number] [place] [address] Apr, [facility] [address] [id number] [place] [address] Apr, [facility] [address] [id number] [place] [address] Apr, [facility] [address] [id number] [place] [address] March, [facility] [address] [id number] [place] [address] March, [facility] [address] [id number] [place] [address] March, [facility] [address] [id number] [place] [address] March, [facility] [address] [id number] [place] [address] March, [facility] [address] [id number] [place] [address] March, [facility] [address] [id number] [place] [address] March, [facility] [address] [id number] [place] [address] March, [facility] [address] [id number] [place] [address] March, [facility] [address] [id number] [place] [address] Feb, [facility] [address] [id number] [place] [address] Feb, [facility] [address] [id number] [place] [address] Jan, [facility] [address] [id number] [place] [address] Jan, [facility] [address] [id number] [place] [address] Jan, [facility] [address] [id number] [place] [address] Jan, [facility] [address] [id number] [place] [address] Dec, [facility] [address] [id number] [place] [address] Dec, [facility] [address] [id number] [place] [address] Dec, [facility] [address] [id number] [place] [address] Nov, [facility] [address] [id number] [place] [address] Oct, [facility] [address] [id number] [place] [address] 15 Oct, 2011 [facility] [address] [id number] [place] [address] 15 Oct, 2011 [facility] [address] [id number] [place] [address] 14 Oct, 2011 [facility] [address] [id number] [place] [address] 14 Oct, 2011 [facility] [address] [id number] [place] [address] Oct, [facility] [address] [id number] [place] [address] Oct, [facility] [address] [id number] [place] [address] Oct, [facility] [address] [id number] [place] [address] Sep, [facility] [address] [id number] [place] [address] 17 Sep, 2011 [facility] [address] [id number] [place] [address] 14 Sep, 2011 [facility] [address] [id number] [place] [address] Sep, [facility] [address] [id number] [place] [address] Sep, [facility] [address] [id number] [place] [address] Sep, [facility] [address] [id number] [place] [address] Sep, [facility] [id number] [place] [address] Sep, [facility] [address] [id number] [place] [address] Sep, [facility] [address] [id number] [place] [address] Aug, [facility] [address] [id number] [place] [address] Jul, [facility] [address] [id number] [place] [address] Oct, [facility] [address] [id number] [place] [address] Oct, [facility] [address] [id number] [place] [address] Oct, IMMUNIZATIONS No Known Immunizations SOCIAL HISTORY [...]
--- OUTSIDE RECORDS SUMMARY | 2020-03-19 05:56 | XMS REPORT ---
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 98378301 Problem Chronic kidney disease, unspecified N18.9 Active 561509630 Problem Anemia, unspecified D64.9 Active 986498896 Problem Irritable bowel K58.9 Active 1074 3008 Problem Irritable bowel syndrome with diarrhea K58.0 Active 150582167 Problem Claudication I73.9 Active 7461098 6 Problem Intractable migraine without aura and with status migr ainosus G43.011 Active 367657214 Problem Peritoneal dialysis status Z99.2 Act moody 294779926 Problem Migraine without aura and without status migrain osus, not intractable G43.009 Active 101200956 Problem Other insomnia G47.09 Active 62592 2000 Problem Dysthymia F34.1 Active 24841275 Problem Chronic kidney disease, stage 4 (severe) N18.4 Active 986833570 Problem Migraine with aura and without status migrainosu s, not intractable G43.109 Active 4892052 Problem Autonomic neuropathy G90.9 Active 163880687 Problem Type 1 diabetes mellitus with complications E10.8 Active 585909877 Problem Menorrhagia with regular cycle N92.0 Active 670820941 Problem Other chronic pain G89.29 Active 8 8800579 Problem Lymphedema I89.0 Active 908057151 Problem Essential hypertension I10 Active 07655123 Problem Moderate episode of recurrent major depressive disorder F33.1 Active 602267229 Problem Type 1 diabetes mellitus without complications E10 .9 Active 730591568 Problem Primary insomnia F51.01 Active 397 2004 Problem Migraine G43.909 Active 27909641 Problem Low back pain M54.5 Active 440254 009 Problem Diastolic dysfunction I51.89 Active 5730391 Problem ESRF (end stage renal failure) N18.6 Active 14747771 Problem Restless legs G25.81 Active 416612 08 Problem Hyperthyroidism E05.90 Active 3448 6009 ALLERGIES No Information ENCOUNTERS Encounter Location Date Diagnosis [place] [address] [place] [place] [id number] 16 Jan, 2020 Type 1 diabetes mellitus with hypoglycem ia without coma E10.649 [place] [address] [address] 11 Jan, 2020 [place] [address] [address] 10 Jan, 2020 Type 1 diabetes mellitus with hyperglyce sebastian E10.65 ; Orthostatic hypotension I95.1 and Restless legs G25.81 [facility] [id number] [place], [place] [id number] Dec, Caries K02.9 and Dental examination Z01. 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 ; Migraine without aura and without status migrainosus, not intractable G43.009 ; Chronic kidney disease, stage 4 (severe) N18.4 ; Claudication I73.9 ; Peritoneal dialysis status Z99.2 ; Diastolic dysfunction I51.89 ; Primary insomnia F51.01 and Burn T30.0 [facility] [address] [address] Sep, Moderate episode of recurrent major depr essive disorder F33.1 and Primary insomnia F51.01 [place] [address] [address] Aug, Hyperthyroidism E05.90 [facility] [address] [address] May, Restless legs G25.81 [facility] [address] [address] May, [facility] [address] [address] May, [facility] [address] [address] May, Type 1 diabetes mellitus with hypoglycem ia without coma E10.649 ; ESRF (end stage renal failure) N18.6 ; Leg cramps R25.2 ; Restless legs G25.81 and Low back pain M54.5 [facility] [address] [address] Apr, Low back pain M54.5 [facility] [address] [address] Apr, [facility] [address] [address] March, Low back pain M54.5 [facility] [address] [address] March, [facility] [address] [address] Feb, Low back pain M54.5 [facility] [address] [address] Jan, Low back pain M54.5 [facility] [address] [address] Jan, [facility] [address] [address] Jan, [facility] [address] [address] Jan, [place] [address] [address] Dec, Type 1 diabetes mellitus with hypoglycem ia without coma E10.649 and Low back pain M54.5 [place] [address] [address] 21 Dec, 2018 Low back pain M54.5 [place] [address] [address] 13 Dec, 2018 Diastolic dysfunction I51.89 ; Essential hypertension I10 and Chronic kidney disease, stage 4 (severe) N18.4 [place] [address] [address] 11 Dec, 2018 RUQ abdominal pain R10.11 ; Type 1 diabe camryn mellitus without complications E10.9 ; Therapeutic drug monitoring Z51.81 ; Migraine with aura and without status migrainosus, not intractable G43.109 and Intractable migraine without aura and with status migrainosus G43.011 [place] [address] [address] Nov, Low back pain M54.5 [place] [address] [address] Nov, [place] [address] [address] Nov, Intractable migraine without aura and wi th status migrainosus G43.011 ; Lymphedema I89.0 ; Pain in right shoulder M25.511 ; Other chronic pain G89.29 ; Irritable bowel syndrome with diarrhea K58.0 ; Type 1 diabetes mellitus without complications E10.9 and Essential hypertension I10 [place] [address] [address] Oct, Low back pain M54.5 [place] [address] [address] Oct, [place] [address] [address] Oct, Orthostatic hypotension I95.1 ; Shortnes s of breath R06.02 ; Leg swelling M79.89 ; Type 1 diabetes mellitus without complications E10.9 and Claudication I73.9 [facility] [address] [address] Sep, Low back pain M54.5 [facility] [address] [address] Sep, Low back pain M54.5 [place] [address] [address] Aug, [place] [address] [address] Aug, Migraine without aura and without status migrainosus, not intractable G43.009 [place] [address] [address] Aug, Low back pain M54.5 [facility] [address] [facility] [id number] [place] [address] Aug, Acute rhinosinusitis J01.90 and Sore throat J02.9 [place] [address] [address] Jul, Low back pain M54.5 [place] [address] [address] Jul, Migraine without aura and without status migrainosus, not intractable G43.009 [place] [address] [address] Jun, Low back pain M54.5 [place] [address] [address] Jun, [place] [address] [address] 08 Jun, 2018 Orthostatic hypotension I95.1 ; Shortnes s of breath R06.02 ; Type 1 diabetes mellitus without complications E10.9 and Leg swelling M79.89 [place] [address] [address] Jun, Low back pain M54.5 [place] [address] [address] Jun, [place] [address] [address] May, Migraine without aura and without status migrainosus, not intractable G43.009 [place] [address] [address] May, Migraine without aura and without status migrainosus, not intractable G43.009 ; Restless legs syndrome G25.81 ; Leg cramps R25.2 ; Chronic kidney disease, unspecified N18.9 ; Postural hypotension I95.1 ; Diarrhea, unspecified type R19.7 and Cough R05 [place] [address] [address] May, [place] [address] [address] May, [place] [address] [address] May, Orthostatic hypotension I95.1 ; Shortnes s of breath R06.02 ; Type 1 diabetes mellitus with complications E10.8 and Leg swelling M79.89 [place] [address] [address] May, [place] [address] [address] May, Low back pain M54.5 [place] [address] [address] Apr, Type 1 diabetes mellitus with hyperglyce sebastian E10.65 [place] [address] [address] Apr, Low back pain M54.5 [place] [address] [address] Apr, [facility] [address] [address] Apr, [facility] [address] [address] March, [facility] [address] [address] March, Low back pain M54.5 [facility] [address] [address] March, [facility] [address] [address] Feb, [facility] [address] [address] Feb, Low back pain M54.5 [facility] [address] [address] Jan, Restless legs syndrome G25.81 [facility] [address] [address] Jan, Low back pain M54.5 [facility] [address] [address] Jan, [facility] [address] [address] Jan, Type 1 diabetes mellitus without complic ations E10.9 ; Low back pain M54.5 ; Cough R05 ; Diarrhea, unspecified type R19.7 ; Migraine without aura and without status migrainosus, not intractable G43.009 and Uses control Z30.9 [facility] [address] [address] Dec, Low back pain M54.5 [facility] [address] [address] Dec, [facility] [address] [address] Nov, Well woman exam Z01.419 ; Menorrhagia wi th regular cycle N92.0 ; Vaginal dryness N89.8 and Migraine with aura and without status migrainosus, not intractable G43.109 [place] [address] [address] Nov, [place] [address] [address] Nov, Low back pain M54.5 [place] [address] [address] Oct, Low back pain M54.5 [place] [address] [address] Oct, Migraine without aura and without status migrainosus, not intractable G43.009 [place] [address] [address] Sep, Low back pain M54.5 [place] [address] [address] Sep, [place] [address] [address] Sep, Migraine without aura and without status migrainosus, not intractable G43.009 [place] [address] [address] Sep, Type 1 diabetes mellitus with hypoglycem ia without coma E10.649 ; Anemia D64.9 ; Migraine without aura and without status migrainosus, not intractable G43.009 ; Chronic kidney disease, unspecified N18.9 ; Autonomic neuropathy G90.9 and Postural hypotension I95.1 [place] [address] [address] Sep, Low back pain M54.5 [place] [address] [address] 04 Aug, 2017 Low back pain M54.5 [place] [address] [address] 14 Jul, 2017 [facility] [address] [address] Jul, Low back pain M54.5 [facility] [address] [address] Jun, [facility] [address] [address] Jun, Low back pain M54.5 [facility] [address] [address] Jun, Migraine without aura and without status migrainosus, not intractable G43.009 [facility] [address] [address] Jun, Type 1 diabetes mellitus with hyperglyce sebastian E10.65 ; Dysthymia F34.1 and Migraine without aura and without status migrainosus, not intractable G43.009 [facility] [address] [address] Jun, [facility] [address] [address] May, Type 1 diabetes mellitus with hyperglyce sebastian E10.65 [facility] [address] [address] May, Low back pain M54.5 [facility] [address] [address] May, Type 1 diabetes mellitus with hyperglyce sebastian E10.65 [facility] [address] [address] Apr, [facility] [address] [address] Apr, Chronic kidney disease, stage 4 (severe) N18.4 [facility] [address] [address] Apr, Low back pain M54.5 [facility] [address] [address] March, [facility] [address] [address] March, Low back pain M54.5 [facility] [address] [address] Feb, [facility] [address] [address] Feb, [facility] [address] [address] Feb, Low back pain M54.5 [facility] [address] [address] Feb, Low back pain M54.5 [facility] [address] [address] Feb, Migraine without aura and without status migrainosus, not intractable G43.009 [facility] [address] [address] Feb, [facility] [address] [address] Jan, Low back pain M54.5 [facility] [address] [address] Jan, Type 1 diabetes mellitus without complic ations E10.9 ; Anemia D64.9 ; Chronic kidney disease, unspecified N18.9 ; Migraine without aura and without status migrainosus, not intractable G43.009 and Other insomnia G47.09 [facility] [address] [address] Jan, [facility] [address] [address] Dec, Low back pain M54.5 [facility] [address] [address] Dec, [facility] [address] [address] 13 Dec, 2016 [facility] [address] [address] Dec, Shortness of breath R06.02 ; Type 1 diab etes mellitus without complications E10.9 and Leg swelling M79.89 [place] [address] [address] Nov, Low back pain M54.5 [place] [address] [address] Nov, Viral syndrome B34.9 [place] [address] [address] Oct, Low back pain M54.5 [place] [address] [address] Oct, [place] [address] [address] Oct, Low back pain M54.5 [place] [address] [address] Sep, [place] [address] [address] Sep, Fatigue, unspecified type R53.83 ; Type 1 diabetes mellitus without complications E10.9 and Anemia D64.9 [place] [address] [address] Sep, Low back pain M54.5 [place] [address] [address] Sep, Type 1 diabetes mellitus with hyperglyce sebastian E10.65 [place] [address] [address] Aug, Type 1 diabetes mellitus without complic ations E10.9 [place] [address] [address] Aug, [facility] [address] [address] Aug, [facility] [address] [address] Jul, [facility] [address] [address] 14 Jul, 2016 Low back pain M54.5 [facility] [address] [address] Jul, Hyperkalemia, diminished renal excretion E87.5 [facility] [address] [address] Jul, Hyperkalemia, diminished renal excretion E87.5 [facility] [address] [address] Jun, [facility] [address] [address] Jun, Low back pain M54.5 [facility] [address] [address] Jun, Anemia D64.9 ; Autonomic neuropathy G90. 9 and Postural hypotension I95.1 [facility] [address] [address] Jun, [facility] [address] [address] May, Type 1 diabetes mellitus with complicati ons E10.8 and Anemia D64.9 [facility] [address] [address] May, Low back pain M54.5 [facility] [address] [address] Apr, [facility] [address] [address] Apr, Low back pain M54.5 [facility] [address] [address] Apr, [facility] [address] [address] Apr, [facility] [address] [address] March, Low back pain M54.5 and Other chronic pa in G89.29 [facility] [address] [address] March, Type 1 diabetes mellitus without complic ations E10.9 [facility] [address] [address] March, [facility] [address] [address] March, [facility] [address] [address] Feb, [facility] [address] [address] Feb, Type 1 diabetes mellitus without complic ations E10.9 [facility] [address] [address] Feb, Trochanteric bursitis, right hip M70.61 [place] [address] [address] Jan, [facility] [address] [address] Jan, [facility] [address] [address] Dec, Type 1 diabetes mellitus with complicati ons E10.8 [facility] [address] [address] Dec, [facility] [address] [address] Dec, Anemia D64.9 ; Autonomic neuropathy G90. 9 and Postural hypotension I95.1 [facility] [address] [address] Dec, [facility] [address] [address] Nov, Sore throat J02.9 [facility] [address] [address] Nov, Type 1 diabetes mellitus with complicati ons E10.8 [facility] [address] [address] Nov, Type 1 diabetes mellitus with diabetic n ephropathy E10.21 ; Proteinuria, unspecified R80.9 and Chronic kidney disease, unspecified N18.9 [facility] [address] [address] Nov, [facility] [address] [address] Nov, Trochanteric bursitis, right hip M70.61 [facility] [address] [address] Nov, [facility] [address] [address] Oct, [facility] [address] [address] Oct, [facility] [address] [address] Oct, [facility] [address] [address] Sep, [facility] [address] [address] Sep, [facility] [address] [address] Sep, Type 2 diabetes mellitus with complicati on E11.8 and Right hip pain M25.551 [facility] [address] [address] Sep, [facility] [address] [address] Aug, [facility] [id number] [place] [address] 14 Aug, 2015 [facility] [id number] [place] [address] Aug, [facility] [id number] [place] [address] Aug, Type 1 diabetes mellitus without complic ations E10.9 [facility] [id number] [place] [address] 16 Jul, 2015 [facility] [id number] [place] [address] 15 Jul, 2015 [facility] [id number] [place] [address] Jul, [facility] [id number] [place] [address] Jun, [facility] [id number] [place] [address] Jun, [facility] [id number] [place] [address] Jun, [facility] [address] [address] Jun, [facility] [id number] [place] [address] Jun, [facility] [address] [address] Jun, Diabetes mellitus without mention of com plication, type I [juvenile type], not stated as uncontrolled 250.01 [facility] [id number] [place] [address] May, [facility] [id number] [place] [address] May, [facility] [id number] [place] [address] May, [facility] [id number] [place] [address] May, Autonomic neuropathy 337.9 ; Postural hy potension 458.0 and Anemia 285.9 [facility] [id number] [place] [address] May, [facility] [id number] [place] [address] Apr, [facility] [id number] [place] [address] Apr, [facility] [id number] [place] [address] Apr, [facility] [id number] [place] [address] Apr, [facility] [id number] [place] [address] Apr, [facility] [id number] [place] [address] March, [facility] [id number] [place] [address] March, [facility] [id number] [place] [address] March, [facility] [id number] [place] [address] March, [facility] [id number] [place] [address] March, [facility] [id number] [place] [address] Feb, [facility] [id number] [place] [address] Feb, [facility] [id number] [place] [address] Feb, [facility] [id number] [place] [address] Jan, [facility] [id number] [place] [address] Jan, [facility] [address] [id number] [place] [address] Jan, [facility] [id number] [facility] [place] [address] Jan, [facility] [id number] [place] [address] Jan, [facility] [address] [facility] [id number] [facility] [place] [address] Jan, [facility] [address] [id number] [place] [address] Jan, [facility] [address] [id number] [place] [address] Jan, [facility] [address] [id number] [place] [address] Jan, [facility] [address] [id number] [place] [address] Jan, [facility] [address] [id number] [place] [address] Jan, [facility] [id number] [place] [address] Jan, [facility] [id number] [place] [address] Jan, [facility] [id number] [place] [address] Dec, 2014 [facility] [id number] [place] [address] Dec, 2014 [facility] [id number] [place] [address] Dec, 2014 [facility] [id number] [place] [address] Dec, 2014 [facility] [id number] [place] [address] 16 Dec, 2014 [facility] [id number] [place] [address] Dec, [facility] [id number] [place] [address] Dec, [facility] [id number] [place] [address] Dec, [facility] [id number] [place] [address] Nov, [facility] [id number] [place] [address] Nov, [facility] [id number] [place] [address] Nov, [facility] [id number] [place] [address] Nov, [facility] [id number] [place] [address] Nov, [facility] [id number] [place] [address] Nov, [facility] [id number] [place] [address] Nov, [facility] [id number] [place] [address] Nov, [facility] [id number] [place] [address] Nov, [facility] [address] [id number] [place] [address] Oct, [facility] [place] [facility] [address] [id number] [place] [address] Oct, [facility] [place] [facility] [address] [id number] [place] [address] Oct, [facility] [place] [facility] [address] [id number] [place] [address] Oct, [facility] [place] [facility] [address] [id number] [place] [address] Oct, [facility] [place] [facility] [address] [id number] [place] [address] Oct, [facility] [place] [facility] [address] [id number] [place] [address] Oct, [facility] [place] [facility] [address] [id number] [place] [address] Oct, [facility] [place] [facility] [address] [id number] [place] [address] Oct, [facility] [place] [facility] [address] [id number] [place] [address] Oct, [facility] [place] [facility] [address] [id number] [place] [address] Oct, [facility] [place] [facility] [address] [id number] [place] [address] Oct, [facility] [place] [facility] [address] [id number] [place] [address] Oct, [facility] [place] [facility] [address] [id number] [place] [address] Oct, [facility] [place] [facility] [address] [id number] [place] [address] Sep, [facility] [place] [facility] [address] [id number] [place] [address] Sep, [facility] [place] [facility] [address] [id number] [place] [address] Sep, [facility] [place] [facility] [address] [id number] [place] [address] Sep, [facility] [place] [facility] [address] [id number] [place] [address] Aug, [facility] [place] [facility] [address] [id number] [place] [address] Aug, [facility] [place] [facility] [address] [id number] [place] [address] Aug, [facility] [place] [facility] [address] [id number] [place] [address] 13 Aug, 2014 [facility] [place] [facility] [address] [facility] [id number] [place] [address] 08 Aug, 2014 [facility] [place] [facility] [address] [id number] [place] [address] Aug, [facility] [place] [facility] [address] [id number] [place] [address] Aug, [facility] [place] [facility] [address] [id number] [place] [address] Aug, [facility] [place] [facility] [address] [id number] [place] [address] Aug, [facility] [place] [facility] [address] [id number] [place] [address] Aug, [facility] [place] [facility] [address] [id number] [place] [address] 29 Jul, 2013 [facility] [place] [facility] [address] [id number] [place] [address] 29 Jul, 2013 [facility] [place] [facility] [address] [id number] [place] [address] 29 Jul, 2013 [facility] [place] [facility] [address] [id number] [place] [address] 29 Jul, 2013 [facility] [place] [facility] [address] [id number] [place] [address] 22 Jul, 2013 [facility] [place] [facility] [address] [id number] [place] [address] 22 Jul, 2013 [facility] [place] [facility] [address] [id number] [place] [address] 19 Sep, 2013 [facility] [place] [facility] [address] [id number] [place] [address] 19 Jul, 2013 [facility] [place] [facility] [address] [id number] [place] [address] 11 Jul, 2013 [facility] [place] [facility] [address] [id number] [place] [address] 11 Jul, 2013 [facility] [place] [facility] [address] [id number] [place] [address] 10 Jul, 2013 [facility] [place] [facility] [address] [id number] [place] [address] 10 Jul, 2013 [facility] [place] [facility] [address] [id number] [place] [address] 08 Jul, 2013 [facility] [place] [facility] [address] [id number] [place] [address] 08 Jul, 2013 [facility] [place] [facility] [address] [facility] [id number] [place] [address] Jul, 2013 [facility] [place] [facility] [address] [id number] [place] [address] Jul, 2013 [facility] [place] [facility] [address] [id number] [place] [address] Jul, 2013 [facility] [place] [facility] [address] [id number] [place] [address] Jul, 2013 [facility] [place] [facility] [address] [id number] [place] [address] Jun, [facility] [place] [facility] [address] [id number] [place] [address] Jun, [facility] [place] [facility] [address] [id number] [place] [address] Jun, [facility] [place] [facility] [address] [id number] [place] [address] Jun, [facility] [place] [facility] [address] [id number] [place] [address] Jun, [facility] [place] [facility] [address] [id number] [place] [address] Jun, [facility] [place] [facility] [address] [id number] [place] [address] Jun, [facility] [place] [facility] [address] [id number] [place] [address] Jun, [facility] [place] [facility] [address] [id number] [place] [address] Jun, [facility] [place] [facility] [address] [id number] [facility] [place] [address] Jun, [facility] [place] [facility] [address] [facility] [id number] [place] [address] Jun, [facility] [place] [facility] [address] [facility] [id number] [facility] [place] [address] Jun, [facility] [place] [facility] [address] [id number] [place] [address] Jun, [facility] [place] [facility] [address] [facility] [id number] [place] [address] Jun, [facility] [place] [facility] [address] [id number] [place] [address] Jun, [facility] [place] [facility] [address] [id number] [place] [address] May, [facility] [place] [facility] [address] [id number] [facility] [place] [address] May, [facility] [place] [facility] [address] [facility] [id number] [facility] [place] [address] May, [facility] [place] [facility] [address] [facility] [id number] [facility] [place] [address] May, [facility] [place] [facility] [address] [facility] [id number] [place] [address] May, [facility] [place] [facility] [address] [id number] [place] [address] May, [facility] [place] [facility] [address] [facility] [id number] [facility] [place] [address] May, [facility] [place] [facility] [address] [id number] [place] [address] May, [facility] [place] [facility] [address] [facility] [id number] [place] [address] Apr, [facility] [place] [facility] [address] [id number] [place] [address] Apr, [facility] [place] [facility] [address] [id number] [place] [address] Apr, [facility] [place] [facility] [address] [id number] [place] [address] Apr, [facility] [place] [facility] [address] [facility] [id number] [place] [address] Apr, [facility] [place] [facility] [address] [id number] [place] [address] Apr, [facility] [place] [facility] [address] [facility] [id number] [place] [address] Apr, [facility] [place] [facility] [address] [facility] [id number] [place] [address] Apr, [facility] [place] [facility] [address] [id number] [place] [address] Apr, [facility] [place] [facility] [address] [id number] [place] [address] Apr, [facility] [place] [facility] [address] [id number] [place] [address] Apr, [facility] [place] [facility] [address] [facility] [id number] [place] [address] Apr, [facility] [place] [facility] [address] [id number] [place] [address] Apr, [facility] [place] [facility] [address] [id number] [place] [address] Apr, [facility] [place] [facility] [address] [id number] [place] [address] Apr, [facility] [place] [facility] [address] [facility] [id number] [place] [address] Apr, [facility] [place] [facility] [address] [id number] [place] [address] Apr, [facility] [place] [facility] [address] [id number] [place] [address] Apr, [facility] [place] [facility] [address] [id number] [place] [address] March, [facility] [place] [facility] [address] [id number] [place] [address] March, [facility] [place] [facility] [address] [id number] [place] [address] March, [facility] [place] [facility] [address] [id number] [place] [address] March, [facility] [place] [facility] [address] [id number] [place] [address] March, [facility] [place] [facility] [address] [id number] [place] [address] March, [facility] [place] [facility] [address] [id number] [place] [address] March, [facility] [place] [facility] [address] [id number] [place] [address] March, [facility] [place] [facility] [address] [id number] [place] [address] March, [facility] [place] [facility] [address] [id number] [place] [address] Feb, [facility] [place] [facility] [address] [id number] [place] [address] Feb, [facility] [place] [facility] [address] [id number] [place] [address] Feb, [facility] [place] [facility] [address] [id number] [place] [address] Feb, [facility] [place] [facility] [address] [id number] [place] [address] Feb, [facility] [place] [facility] [address] [id number] [place] [address] Feb, [facility] [place] [facility] [address] [id number] [place] [address] Feb, [facility] [place] [facility] [address] [id number] [place] [address] Feb, [facility] [place] [facility] [address] [id number] [place] [address] Feb, [facility] [place] [facility] [address] [facility] [id number] [facility] [place] [address] Feb, [facility] [place] [facility] [address] [facility] [id number] [facility] [place] [address] Feb, [facility] [place] [facility] [address] [id number] [facility] [place] [address] Feb, [facility] [place] [facility] [address] [id number] [place] [address] Feb, [facility] [place] [facility] [address] [facility] [id number] [facility] [place] [address] Jan, [facility] [place] [facility] [address] [id number] [place] [address] Jan, [facility] [place] [facility] [address] [id number] [place] [address] Jan, [facility] [place] [facility] [address] [id number] [place] [address] Jan, [facility] [place] [facility] [address] [id number] [place] [address] Jan, [facility] [place] [facility] [address] [id number] [place] [address] Jan, [facility] [place] [facility] [address] [id number] [place] [address] Jan, [facility] [place] [facility] [address] [id number] [place] [address] Jan, [facility] [place] [facility] [address] [id number] [place] [address] Dec, [facility] [place] [facility] [address] [id number] [place] [address] Dec, [facility] [place] [facility] [address] [id number] [place] [address] Dec, [facility] [place] [facility] [address] [id number] [place] [address] Dec, [facility] [place] [facility] [address] [id number] [place] [address] Dec, [facility] [place] [facility] [address] [id number] [place] [address] Dec, [facility] [place] [facility] [address] [id number] [place] [address] Dec, [facility] [place] [facility] [address] [id number] [place] [address] Dec, [facility] [place] [facility] [address] [id number] [place] [address] Dec, [facility] [place] [facility] [address] [id number] [place] [address] Dec, [facility] [place] [facility] [address] [id number] [place] [address] Nov, [facility] [place] [facility] [address] [id number] [place] [address] Nov, [facility] [place] [facility] [address] [id number] [place] [address] Nov, [facility] [place] [facility] [address] [id number] [place] [address] Nov, [facility] [place] [facility] [address] [id number] [place] [address] Nov, [facility] [place] [facility] [address] [id number] [place] [address] Nov, [facility] [place] [facility] [address] [id number] [place] [address] Nov, [facility] [place] [facility] [address] [id number] [place] [address] Nov, [facility] [place] [facility] [address] [id number] [place] [address] Nov, [facility] [place] [facility] [address] [id number] [place] [address] Nov, [facility] [place] [facility] [address] [id number] [place] [address] 19 Oct, 2013 [facility] [place] [facility] [address] [id number] [place] [address] 19 Oct, 2013 [facility] [place] [facility] [address] [id number] [place] [address] 18 Oct, 2013 [facility] [place] [facility] [address] [id number] [place] [address] 18 Oct, 2012 [facility] [place] [facility] [address] [id number] [place] [address] 17 Oct, 2013 [facility] [place] [facility] [address] [id number] [place] [address] 17 Oct, 2013 [facility] [place] [facility] [address] [id number] [place] [address] 16 Oct, 2013 [facility] [place] [facility] [address] [id number] [place] [address] 16 Oct, 2013 [facility] [place] [facility] [address] [id number] [place] [address] Oct, [facility] [place] [facility] [address] [id number] [place] [address] Oct, [facility] [place] [facility] [address] [id number] [place] [address] 04 Oct, 2013 [facility] [place] [facility] [address] [id number] [place] [address] 04 Oct, 2013 [facility] [place] [facility] [address] [id number] [place] [address] 04 Oct, 2013 [facility] [place] [facility] [address] [id number] [place] [address] Oct, [facility] [place] [facility] [address] [id number] [place] [address] Sep, [facility] [place] [facility] [address] [id number] [place] [address] Sep, [facility] [place] [facility] [address] [id number] [place] [address] Sep, [facility] [place] [facility] [address] [id number] [place] [address] 18 Sep, 2013 [facility] [place] [facility] [address] [id number] [place] [address] Sep, [facility] [place] [facility] [address] [id number] [place] [address] Sep, [facility] [place] [facility] [address] [id number] [place] [address] Aug, [facility] [place] [facility] [address] [id number] [place] [address] Aug, [facility] [place] [facility] [address] [id number] [place] [address] Aug, [facility] [place] [facility] [address] [id number] [place] [address] Aug, [facility] [place] [facility] [address] [id number] [place] [address] 10 Aug, 2013 [facility] [place] [facility] [address] [id number] [place] [address] 10 Aug, 2013 [facility] [place] [facility] [address] [id number] [place] [address] 07 Aug, 2013 [facility] [place] [facility] [address] [id number] [place] [address] 02 Aug, 2013 [facility] [place] [facility] [address] [id number] [place] [address] 02 Aug, 2013 [facility] [place] [facility] [address] [id number] [place] [address] 25 Jul, 2012 [facility] [place] [facility] [address] [id number] [place] [address] 23 Sep, 2012 [facility] [place] [facility] [id number] [place] [address] 21 Jul, 2012 [facility] [place] [facility] [address] [id number] [place] [address] 20 Sep, 2012 [facility] [place] [facility] [address] [id number] [place] [address] 18 Jul, 2012 [facility] [place] [facility] [address] [id number] [place] [address] 17 Jul, 2012 [facility] [place] [facility] [address] [id number] [place] [address] 16 Jul, 2012 [facility] [place] [facility] [address] [id number] [place] [address] 11 Jul, 2012 [facility] [place] [facility] [address] [id number] [place] [address] 09 Jul, 2012 [facility] [place] [facility] [address] [facility] [id number] [place] [address] 09 Jul, 2012 [facility] [place] [facility] [address] [id number] [place] [address] 06 Jul, 2012 [facility] [place] [facility] [address] [id number] [place] [address] 03 Jul, 2012 [facility] [place] [facility] [address] [id number] [place] [address] Jun, [facility] [place] [facility] [address] [id number] [place] [address] Jun, [facility] [place] [facility] [address] [id number] [place] [address] Jun, [facility] [place] [facility] [address] [id number] [place] [address] Jun, [facility] [place] [facility] [address] [id number] [place] [address] Jun, [facility] [place] [facility] [address] [id number] [place] [address] Jun, [facility] [place] [facility] [address] [facility] [id number] [place] [address] 15 Jun, 2013 [facility] [place] [facility] [address] [id number] [place] [address] Jun, [facility] [place] [facility] [address] [id number] [place] [address] Jun, [facility] [place] [facility] [address] [id number] [place] [address] May, [facility] [place] [facility] [address] [id number] [facility] [place] [address] May, [facility] [place] [facility] [address] [facility] [id number] [facility] [place] [address] May, [facility] [place] [facility] [address] [id number] [facility] [place] [address] May, [facility] [place] [facility] [address] [id number] [facility] [place] [address] May, [facility] [place] [facility] [address] [facility] [id number] [facility] [place] [address] May, [facility] [place] [facility] [address] [facility] [id number] [facility] [place] [address] May, [facility] [place] [facility] [address] [id number] [place] [address] March, [facility] [place] [facility] [address] [id number] [place] [address] March, [facility] [place] [facility] [address] [id number] [place] [address] March, [facility] [place] [facility] [address] [id number] [place] [address] Dec, [facility] [place] [facility] [address] [id number] [place] [address] Nov, [facility] [place] [facility] [address] [id number] [place] [address] Aug, [facility] [place] [facility] [address] [facility] [id number] [facility] [place] [address] Aug, [facility] [address] [id number] [place] [address] Jun, [facility] [id number] [place] [address] Jun, [facility] [id number] [place] [address] Jun, [facility] [id number] [place] [address] Jun, [facility] [address] [id number] [place] [address] May, [facility] [id number] [place] [address] May, [facility] [id number] [place] [address] May, [facility] [id number] [place] [address] May, [facility] [id number] [place] [address] May, [facility] [id number] [place] [address] May, [facility] [id number] [place] [address] May, [facility] [id number] [place] [address] Apr, [facility] [id number] [place] [address] Apr, [facility] [id number] [place] [address] Apr, [facility] [id number] [place] [address] Apr, [facility] [id number] [place] [address] March, [facility] [id number] [place] [address] March, [facility] [id number] [place] [address] March, [facility] [id number] [place] [address] March, [facility] [id number] [place] [address] March, [facility] [id number] [place] [address] March, [facility] [id number] [place] [address] March, [facility] [id number] [place] [address] March, [facility] [id number] [place] [address] March, [facility] [id number] [place] [address] Feb, [facility] [id number] [place] [address] Feb, [facility] [id number] [place] [address] Jan, [facility] [id number] [place] [address] Jan, [facility] [id number] [place] [address] Jan, [facility] [id number] [place] [address] Jan, [facility] [id number] [place] [address] Dec, [facility] [id number] [place] [address] 16 Dec, 2011 [facility] [id number] [place] [address] 15 Dec, 2011 [facility] [id number] [place] [address] Nov, [facility] [id number] [place] [address] Oct, [facility] [id number] [place] [address] Oct, [facility] [id number] [place] [address] 15 Oct, 2011 [facility] [id number] [place] [address] 14 Oct, 2011 [facility] [id number] [place] [address] 14 Oct, 2011 [facility] [id number] [place] [address] Oct, [facility] [id number] [place] [address] Oct, [facility] [id number] [place] [address] Oct, [facility] [id number] [place] [address] Sep, [facility] [id number] [place] [address] 17 Sep, 2011 [facility] [id number] [place] [address] 14 Sep, 2011 [facility] [id number] [place] [address] Sep, [facility] [id number] [place] [address] Sep, [facility] [id number] [place] [address] Sep, [facility] [id number] [place] [address] Sep, [facility] [id number] [place] [address] Sep, [facility] [id number] [place] [address] Sep, [facility] [id number] [place] [address] 24 Aug, 2011 [facility] [id number] [place] [address] 15 Jul, 2011 [facility] [address] [facility] [id number] [place] [address] Oct, [facility] [id number] [place] [address] Oct, [facility] [id number] [place] [address] Oct, IMMUNIZATIONS No Known Immunizations SOCIAL HISTORY [...]
--- OUTSIDE RECORDS SUMMARY | 2020-03-19 05:56 | XMS REPORT ---
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 25574118 Problem Chronic kidney disease, unspecified N18.9 Active 498908701 Problem Anemia, unspecified D64.9 Active 245936738 Problem Irritable bowel K58.9 Active 1074 3008 Problem Irritable bowel syndrome with diarrhea K58.0 Active 248937045 Problem Claudication I73.9 Active 0103419 6 Problem Intractable migraine without aura and with status migr ainosus G43.011 Active 845794079 Problem Peritoneal dialysis status Z99.2 Act moody 859174486 Problem Migraine without aura and without status migrain osus, not intractable G43.009 Active 703035500 Problem Other insomnia G47.09 Active 36353 2000 Problem Dysthymia F34.1 Active 28970187 Problem Chronic kidney disease, stage 4 (severe) N18.4 Active 810624067 Problem Migraine with aura and without status migrainosu s, not intractable G43.109 Active 2541622 Problem Autonomic neuropathy G90.9 Active 994553741 Problem Type 1 diabetes mellitus with complications E10.8 Active 598460293 Problem Menorrhagia with regular cycle N92.0 Active 578453236 Problem Other chronic pain G89.29 Active 8 6758045 Problem Lymphedema I89.0 Active 599132779 Problem Essential hypertension I10 Active 55038639 Problem Moderate episode of recurrent major depressive disorder F33.1 Active 089098893 Problem Type 1 diabetes mellitus without complications E10 .9 Active 890364125 Problem Primary insomnia F51.01 Active 397 2004 Problem Migraine G43.909 Active 35500146 Problem Low back pain M54.5 Active 990269 009 Problem Diastolic dysfunction I51.89 Active 8000964 Problem ESRF (end stage renal failure) N18.6 Active 62357317 Problem Restless legs G25.81 Active 431504 08 Problem Hyperthyroidism E05.90 Active 3448 6009 ALLERGIES No Information ENCOUNTERS Encounter Location Date Diagnosis [facility] [address] [address] 16 Jan, 2020 [facility] [address] [address] 11 Jan, 2020 [place] [address] [address] 10 Jan, 2020 Type 1 diabetes mellitus with hyperglyce sebastian E10.65 ; Orthostatic hypotension I95.1 and Restless legs G25.81 [facility] [id number] [place], [place] [id number] 06 Dec, 2019 Caries K02.9 and Dental examination Z01. 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 ; Migraine without aura and without status migrainosus, not intractable G43.009 ; Chronic kidney disease, stage 4 (severe) N18.4 ; Claudication I73.9 ; Peritoneal dialysis status Z99.2 ; Diastolic dysfunction I51.89 ; Primary insomnia F51.01 and Burn T30.0 [facility] [address] [address] Sep, Moderate episode of recurrent major depr essive disorder F33.1 and Primary insomnia F51.01 [place] [address] [address] Aug, Hyperthyroidism E05.90 [facility] [address] [address] May, Restless legs G25.81 [facility] [address] [address] May, [facility] [address] [address] May, [facility] [address] [address] May, Type 1 diabetes mellitus with hypoglycem ia without coma E10.649 ; ESRF (end stage renal failure) N18.6 ; Leg cramps R25.2 ; Restless legs G25.81 and Low back pain M54.5 [facility] [address] [address] Apr, Low back pain M54.5 [facility] [address] [address] Apr, [facility] [address] [address] March, Low back pain M54.5 [facility] [address] [address] March, [facility] [address] [address] Feb, Low back pain M54.5 [facility] [address] [address] Jan, Low back pain M54.5 [facility] [address] [address] Jan, [facility] [address] [address] Jan, [facility] [address] [address] Jan, [facility] [address] [address] Dec, Type 1 diabetes mellitus with hypoglycem ia without coma E10.649 and Low back pain M54.5 [place] [address] [address] 21 Dec, 2018 Low back pain M54.5 [place] [address] [address] 13 Dec, 2018 Diastolic dysfunction I51.89 ; Essential hypertension I10 and Chronic kidney disease, stage 4 (severe) N18.4 [place] [address] [address] 11 Dec, 2018 RUQ abdominal pain R10.11 ; Type 1 diabe camryn mellitus without complications E10.9 ; Therapeutic drug monitoring Z51.81 ; Migraine with aura and without status migrainosus, not intractable G43.109 and Intractable migraine without aura and with status migrainosus G43.011 [place] [address] [address] Nov, Low back pain M54.5 [place] [address] [address] 17 Nov, 2018 [place] [address] [address] 14 Nov, 2018 Intractable migraine without aura and wi th status migrainosus G43.011 ; Lymphedema I89.0 ; Pain in right shoulder M25.511 ; Other chronic pain G89.29 ; Irritable bowel syndrome with diarrhea K58.0 ; Type 1 diabetes mellitus without complications E10.9 and Essential hypertension I10 [place] [address] [address] Oct, Low back pain M54.5 [place] [address] [address] Oct, [place] [address] [address] Oct, Orthostatic hypotension I95.1 ; Shortnes s of breath R06.02 ; Leg swelling M79.89 ; Type 1 diabetes mellitus without complications E10.9 and Claudication I73.9 [facility] [address] [address] Sep, Low back pain M54.5 [facility] [address] [address] Sep, Low back pain M54.5 [facility] [address] [address] Aug, [facility] [address] [address] Aug, Migraine without aura and without status migrainosus, not intractable G43.009 [facility] [address] [address] Aug, Low back pain M54.5 [facility] [address] [facility] [id number] [place] [address] Aug, Acute rhinosinusitis J01.90 and Sore throat J02.9 [facility] [address] [address] 28 Jul, 2018 Low back pain M54.5 [facility] [address] [address] Jul, Migraine without aura and without status migrainosus, not intractable G43.009 [facility] [address] [address] Jun, Low back pain M54.5 [facility] [address] [address] Jun, [facility] [address] [address] Jun, Orthostatic hypotension I95.1 ; Shortnes s of breath R06.02 ; Type 1 diabetes mellitus without complications E10.9 and Leg swelling M79.89 [facility] [address] [address] Jun, Low back pain M54.5 [facility] [address] [address] Jun, [facility] [address] [address] May, Migraine without aura and without status migrainosus, not intractable G43.009 [facility] [address] [address] May, Migraine without aura and without status migrainosus, not intractable G43.009 ; Restless legs syndrome G25.81 ; Leg cramps R25.2 ; Chronic kidney disease, unspecified N18.9 ; Postural hypotension I95.1 ; Diarrhea, unspecified type R19.7 and Cough R05 [place] [address] [address] May, [place] [address] [address] May, [place] [address] [address] May, Orthostatic hypotension I95.1 ; Shortnes s of breath R06.02 ; Type 1 diabetes mellitus with complications E10.8 and Leg swelling M79.89 [place] [address] [address] May, [place] [address] [address] May, Low back pain M54.5 [place] [address] [address] Apr, Type 1 diabetes mellitus with hyperglyce sebastian E10.65 [place] [address] [address] Apr, Low back pain M54.5 [place] [address] [address] Apr, [place] [address] [address] Apr, [place] [address] [address] March, [place] [address] [address] March, Low back pain M54.5 [place] [address] [address] March, [place] [address] [address] Feb, [place] [address] [address] Feb, Low back pain M54.5 [place] [address] [address] Jan, Restless legs syndrome G25.81 [place] [address] [address] Jan, Low back pain M54.5 [place] [address] [address] Jan, [place] [address] [address] Jan, Type 1 diabetes mellitus without complic ations E10.9 ; Low back pain M54.5 ; Cough R05 ; Diarrhea, unspecified type R19.7 ; Migraine without aura and without status migrainosus, not intractable G43.009 and Uses control Z30.9 [place] [address] [address] Dec, Low back pain M54.5 [place] [address] [address] Dec, [place] [address] [address] Nov, Well woman exam Z01.419 ; Menorrhagia wi th regular cycle N92.0 ; Vaginal dryness N89.8 and Migraine with aura and without status migrainosus, not intractable G43.109 [place] [address] [address] Nov, [facility] [address] [address] Nov, Low back pain M54.5 [facility] [address] [address] Oct, Low back pain M54.5 [facility] [address] [address] Oct, Migraine without aura and without status migrainosus, not intractable G43.009 [facility] [address] [address] Sep, Low back pain M54.5 [facility] [address] [address] Sep, [facility] [address] [address] Sep, Migraine without aura and without status migrainosus, not intractable G43.009 [facility] [address] [address] Sep, Type 1 diabetes mellitus with hypoglycem ia without coma E10.649 ; Anemia D64.9 ; Migraine without aura and without status migrainosus, not intractable G43.009 ; Chronic kidney disease, unspecified N18.9 ; Autonomic neuropathy G90.9 and Postural hypotension I95.1 [facility] [address] [address] Sep, Low back pain M54.5 [facility] [address] [address] Aug, Low back pain M54.5 [facility] [address] [address] 14 Jul, 2017 [facility] [address] [address] Jul, Low back pain M54.5 [facility] [address] [address] Jun, [facility] [address] [address] Jun, Low back pain M54.5 [facility] [address] [address] Jun, Migraine without aura and without status migrainosus, not intractable G43.009 [facility] [address] [address] Jun, Type 1 diabetes mellitus with hyperglyce sebastian E10.65 ; Dysthymia F34.1 and Migraine without aura and without status migrainosus, not intractable G43.009 [facility] [address] [address] Jun, [facility] [address] [address] May, Type 1 diabetes mellitus with hyperglyce sebastian E10.65 [facility] [address] [address] May, Low back pain M54.5 [facility] [address] [address] May, Type 1 diabetes mellitus with hyperglyce sebastian E10.65 [facility] [address] [address] Apr, [facility] [address] [address] Apr, Chronic kidney disease, stage 4 (severe) N18.4 [facility] [address] [address] Apr, Low back pain M54.5 [facility] [address] [address] March, [facility] [address] [address] March, Low back pain M54.5 [facility] [address] [address] Feb, [facility] [address] [address] Feb, [facility] [address] [address] Feb, Low back pain M54.5 [facility] [address] [address] Feb, Low back pain M54.5 [facility] [address] [address] Feb, Migraine without aura and without status migrainosus, not intractable G43.009 [facility] [address] [address] Feb, [facility] [address] [address] Jan, Low back pain M54.5 [facility] [address] [address] Jan, Type 1 diabetes mellitus without complic ations E10.9 ; Anemia D64.9 ; Chronic kidney disease, unspecified N18.9 ; Migraine without aura and without status migrainosus, not intractable G43.009 and Other insomnia G47.09 [facility] [address] [address] Jan, [facility] [address] [address] Dec, Low back pain M54.5 [facility] [address] [address] Dec, [facility] [address] [address] Dec, [facility] [address] [address] 08 Dec, 2016 Shortness of breath R06.02 ; Type 1 diab etes mellitus without complications E10.9 and Leg swelling M79.89 [place] [address] [address] Nov, Low back pain M54.5 [place] [address] [address] Nov, Viral syndrome B34.9 [place] [address] [address] Oct, Low back pain M54.5 [place] [address] [address] Oct, [place] [address] [address] Oct, Low back pain M54.5 [place] [address] [address] Sep, [place] [address] [address] Sep, Fatigue, unspecified type R53.83 ; Type 1 diabetes mellitus without complications E10.9 and Anemia D64.9 [place] [address] [address] Sep, Low back pain M54.5 [place] [address] [address] Sep, Type 1 diabetes mellitus with hyperglyce sebastian E10.65 [place] [address] [address] Aug, Type 1 diabetes mellitus without complic ations E10.9 [place] [address] [address] Aug, [place] [address] [address] Aug, [place] [address] [address] Jul, [place] [address] [address] 14 Jul, 2016 Low back pain M54.5 [facility] [address] [address] 12 Jul, 2016 Hyperkalemia, diminished renal excretion E87.5 [facility] [address] [address] 09 Jul, 2016 Hyperkalemia, diminished renal excretion E87.5 [facility] [address] [address] 30 Jun, 2016 [facility] [address] [address] 17 Jun, 2016 Low back pain M54.5 [facility] [address] [address] Jun, Anemia D64.9 ; Autonomic neuropathy G90. 9 and Postural hypotension I95.1 [place] [address] [address] Jun, [facility] [address] [address] May, Type 1 diabetes mellitus with complicati ons E10.8 and Anemia D64.9 [facility] [address] [address] May, Low back pain M54.5 [facility] [address] [address] Apr, [facility] [address] [address] Apr, Low back pain M54.5 [facility] [address] [address] Apr, [facility] [address] [address] Apr, [facility] [address] [address] March, Low back pain M54.5 and Other chronic pa in G89.29 [facility] [address] [address] March, Type 1 diabetes mellitus without complic ations E10.9 [facility] [address] [address] March, [facility] [address] [address] March, [facility] [address] [address] Feb, [facility] [address] [address] Feb, Type 1 diabetes mellitus without complic ations E10.9 [place] [address] [address] Feb, Trochanteric bursitis, right hip M70.61 [place] [address] [address] Jan, [facility] [address] [address] Jan, [facility] [address] [address] Dec, Type 1 diabetes mellitus with complicati ons E10.8 [place] [address] [address] Dec, [facility] [address] [address] Dec, Anemia D64.9 ; Autonomic neuropathy G90. 9 and Postural hypotension I95.1 [place] [address] [address] Dec, [facility] [address] [address] Nov, Sore throat J02.9 [place] [address] [address] Nov, Type 1 diabetes mellitus with complicati ons E10.8 [facility] [address] [address] Nov, Type 1 diabetes mellitus with diabetic n ephropathy E10.21 ; Proteinuria, unspecified R80.9 and Chronic kidney disease, unspecified N18.9 [facility] [address] [address] Nov, [facility] [address] [address] Nov, Trochanteric bursitis, right hip M70.61 [facility] [address] [address] Nov, [facility] [address] [address] Oct, [facility] [address] [address] Oct, [facility] [address] [address] Oct, [facility] [address] [address] Sep, [facility] [address] [address] Sep, [facility] [address] [address] Sep, Type 2 diabetes mellitus with complicati on E11.8 and Right hip pain M25.551 [facility] [address] [address] Sep, [facility] [address] [address] Aug, [facility] [address] [address] Aug, [facility] [address] [address] Aug, [facility] [address] [address] Aug, Type 1 diabetes mellitus without complic ations E10.9 [facility] [address] [address] 16 Jul, 2015 [facility] [address] [address] Jul, [facility] [address] [address] Jul, [facility] [address] [address] Jun, [facility] [address] [address] Jun, [facility] [address] [address] Jun, [facility] [address] [address] Jun, [facility] [address] [address] Jun, [facility] [address] [address] Jun, Diabetes mellitus without mention of com plication, type I [juvenile type], not stated as uncontrolled 250.01 [facility] [address] [address] May, [facility] [address] [address] May, [facility] [address] [address] May, [facility] [address] [address] May, Autonomic neuropathy 337.9 ; Postural hy potension 458.0 and Anemia 285.9 [facility] [address] [place] [address] May, [facility] [place] [facility] [address] [facility] [id number] [place] [address] Apr, [facility] [place] [facility] [address] [id number] [place] [address] Apr, [facility] [place] [facility] [address] [id number] [place] [address] Apr, [facility] [place] [facility] [address] [id number] [place] [address] Apr, [facility] [place] [facility] [address] [id number] [place] [address] Apr, [facility] [place] [facility] [address] [id number] [place] [address] March, [facility] [place] [facility] [address] [id number] [place] [address] March, [facility] [place] [facility] [address] [id number] [place] [address] March, [facility] [place] [facility] [address] [id number] [place] [address] March, [facility] [place] [facility] [address] [id number] [place] [address] March, [facility] [place] [facility] [address] [id number] [place] [address] Feb, [facility] [place] [facility] [address] [id number] [place] [address] Feb, [facility] [place] [facility] [address] [id number] [place] [address] Feb, [facility] [place] [facility] [address] [id number] [place] [address] 30 Jan, 2015 [facility] [place] [facility] [address] [id number] [place] [address] Jan, [facility] [place] [facility] [address] [id number] [place] [address] Jan, [facility] [place] [facility] [address] [id number] [place] [address] Jan, [facility] [place] [facility] [address] [id number] [place] [address] Jan, [facility] [place] [facility] [address] [id number] [place] [address] Jan, [facility] [place] [facility] [address] [id number] [place] [address] Jan, [facility] [place] [facility] [address] [id number] [place] [address] Jan, [facility] [place] [facility] [address] [id number] [place] [address] Jan, [facility] [address] [id number] [place] [address] Jan, [facility] [address] [id number] [place] [address] Jan, [facility] [address] [id number] [place] [address] Jan, [facility] [address] [id number] [place] [address] Jan, [facility] [address] [id number] [place] [address] Dec, 2014 [facility] [address] [id number] [place] [address] Dec, 2014 [facility] [address] [id number] [place] [address] Dec, 2014 [facility] [address] [id number] [place] [address] Dec, 2014 [facility] [address] [id number] [place] [address] Dec, 2014 [facility] [address] [id number] [place] [address] Dec, 2014 [facility] [address] [id number] [place] [address] Dec, [facility] [address] [id number] [place] [address] Dec, [facility] [address] [id number] [place] [address] Nov, [facility] [address] [id number] [place] [address] Nov, [facility] [address] [id number] [place] [address] Nov, [facility] [place] [facility] [address] [id number] [place] [address] Nov, [facility] [place] [facility] [address] [id number] [place] [address] Nov, [facility] [place] [facility] [address] [id number] [place] [address] Nov, [facility] [place] [facility] [address] [id number] [place] [address] Nov, [facility] [place] [facility] [address] [id number] [place] [address] Nov, [facility] [place] [facility] [address] [id number] [place] [address] Nov, [facility] [place] [facility] [address] [id number] [place] [address] Oct, [facility] [place] [facility] [address] [id number] [place] [address] Oct, [facility] [place] [facility] [address] [id number] [place] [address] Oct, [facility] [place] [facility] [address] [id number] [place] [address] Oct, [facility] [place] [facility] [address] [id number] [place] [address] Oct, [facility] [place] [facility] [address] [id number] [place] [address] Oct, [facility] [place] [facility] [address] [id number] [place] [address] Oct, [facility] [place] [facility] [address] [id number] [place] [address] Oct, [facility] [place] [facility] [address] [id number] [place] [address] Oct, [facility] [place] [facility] [address] [id number] [place] [address] Oct, [facility] [place] [facility] [address] [id number] [place] [address] Oct, [facility] [place] [facility] [address] [id number] [place] [address] Oct, [facility] [place] [facility] [address] [id number] [place] [address] Oct, [facility] [place] [facility] [address] [id number] [place] [address] Oct, [facility] [place] [facility] [address] [id number] [place] [address] Sep, [facility] [place] [facility] [address] [id number] [place] [address] Sep, [facility] [place] [facility] [address] [id number] [place] [address] Sep, [facility] [place] [facility] [address] [id number] [place] [address] Sep, [facility] [place] [facility] [address] [id number] [place] [address] Aug, [facility] [place] [facility] [address] [id number] [place] [address] Aug, [facility] [place] [facility] [id number] [place] [address] Aug, [facility] [place] [facility] [address] [id number] [place] [address] Aug, [facility] [place] [facility] [address] [id number] [place] [address] Aug, [facility] [place] [facility] [address] [facility] [id number] [place] [address] 08 Aug, 2013 [facility] [place] [facility] [address] [id number] [place] [address] Aug, 2013 [facility] [place] [facility] [address] [id number] [place] [address] Aug, 2013 [facility] [place] [facility] [address] [id number] [place] [address] Aug, 2013 [facility] [place] [facility] [address] [facility] [id number] [place] [address] Aug, 2013 [facility] [place] [facility] [address] [id number] [place] [address] 29 Jul, 2013 [facility] [place] [facility] [address] [id number] [place] [address] 29 Sep, 2013 [facility] [place] [facility] [address] [id number] [place] [address] 29 Sep, 2013 [facility] [place] [facility] [address] [id number] [place] [address] 29 Sep, 2013 [facility] [place] [facility] [address] [id number] [place] [address] 22 Sep, 2013 [facility] [place] [facility] [address] [id number] [place] [address] 22 Sep, 2013 [facility] [place] [facility] [address] [id number] [place] [address] 19 Sep, 2013 [facility] [place] [facility] [address] [id number] [place] [address] 19 Sep, 2013 [facility] [place] [facility] [address] [id number] [place] [address] 11 Sep, 2013 [facility] [place] [facility] [address] [id number] [place] [address] 11 Sep, 2013 [facility] [place] [facility] [address] [id number] [place] [address] 10 Jul, 2013 [facility] [place] [facility] [address] [id number] [place] [address] 10 Jul, 2013 [facility] [place] [facility] [address] [id number] [place] [address] 08 Jul, 2013 [facility] [place] [facility] [address] [facility] [id number] [place] [address] 08 Jul, 2013 [facility] [place] [facility] [address] [id number] [place] [address] Jul, 2013 [facility] [place] [facility] [address] [facility] [id number] [place] [address] Jul, 2013 [facility] [place] [facility] [address] [facility] [id number] [place] [address] Jul, 2013 [facility] [place] [facility] [address] [id number] [place] [address] Jul, 2013 [facility] [place] [facility] [address] [id number] [place] [address] Jun, [facility] [place] [facility] [address] [id number] [place] [address] Jun, [facility] [place] [facility] [address] [facility] [id number] [place] [address] Jun, [facility] [place] [facility] [address] [id number] [place] [address] Jun, [facility] [place] [facility] [address] [id number] [place] [address] Jun, [facility] [place] [facility] [address] [id number] [place] [address] Jun, [facility] [place] [facility] [address] [facility] [id number] [place] [address] Jun, [facility] [place] [facility] [address] [id number] [place] [address] Jun, [facility] [place] [facility] [address] [id number] [place] [address] Jun, [facility] [place] [facility] [address] [id number] [place] [address] Jun, [facility] [place] [facility] [address] [facility] [id number] [place] [address] Jun, [facility] [place] [facility] [address] [facility] [id number] [place] [address] Jun, [facility] [place] [facility] [address] [facility] [id number] [place] [address] Jun, [facility] [place] [facility] [address] [id number] [place] [address] Jun, [facility] [place] [facility] [address] [facility] [id number] [place] [address] Jun, [facility] [place] [facility] [address] [facility] [id number] [place] [address] May, [facility] [place] [facility] [address] [id number] [place] [address] May, [facility] [place] [facility] [address] [id number] [place] [address] May, [facility] [place] [facility] [address] [id number] [place] [address] May, [facility] [place] [facility] [address] [id number] [place] [address] May, [facility] [place] [facility] [address] [id number] [place] [address] May, [facility] [place] [facility] [address] [id number] [place] [address] May, [facility] [place] [facility] [address] [id number] [place] [address] May, [facility] [place] [facility] [address] [facility] [id number] [place] [address] Apr, [facility] [place] [facility] [address] [id number] [place] [address] Apr, [facility] [place] [facility] [address] [id number] [place] [address] Apr, [facility] [place] [facility] [address] [id number] [place] [address] Apr, [facility] [place] [facility] [address] [facility] [id number] [place] [address] Apr, [facility] [place] [facility] [address] [facility] [id number] [place] [address] Apr, [facility] [place] [facility] [address] [facility] [id number] [place] [address] Apr, [facility] [place] [facility] [address] [facility] [id number] [place] [address] Apr, [facility] [place] [facility] [address] [facility] [id number] [place] [address] Apr, [facility] [place] [facility] [address] [id number] [place] [address] Apr, [facility] [place] [facility] [address] [id number] [place] [address] Apr, [facility] [place] [facility] [address] [id number] [place] [address] Apr, [facility] [place] [facility] [address] [id number] [place] [address] Apr, [facility] [place] [facility] [address] [id number] [place] [address] Apr, [facility] [place] [facility] [address] [id number] [place] [address] Apr, [facility] [place] [facility] [address] [id number] [place] [address] Apr, [facility] [place] [facility] [address] [facility] [id number] [place] [address] Apr, [facility] [place] [facility] [address] [id number] [place] [address] Apr, [facility] [place] [facility] [address] [id number] [place] [address] March, [facility] [place] [facility] [address] [id number] [place] [address] March, [facility] [place] [facility] [address] [id number] [place] [address] March, [facility] [place] [facility] [address] [facility] [id number] [place] [address] March, [facility] [place] [facility] [address] [id number] [place] [address] March, [facility] [place] [facility] [address] [id number] [place] [address] March, [facility] [place] [facility] [address] [id number] [place] [address] March, [facility] [place] [facility] [address] [facility] [id number] [place] [address] March, [facility] [place] [facility] [address] [id number] [place] [address] March, [facility] [place] [facility] [address] [id number] [place] [address] Feb, [facility] [place] [facility] [address] [id number] [place] [address] Feb, [facility] [place] [facility] [address] [id number] [place] [address] Feb, [facility] [place] [facility] [address] [id number] [place] [address] Feb, [facility] [place] [facility] [address] [id number] [place] [address] Feb, [facility] [place] [facility] [address] [id number] [place] [address] Feb, [facility] [place] [facility] [address] [id number] [place] [address] Feb, [facility] [place] [facility] [address] [id number] [place] [address] Feb, [facility] [place] [facility] [address] [id number] [place] [address] Feb, [facility] [place] [facility] [address] [id number] [place] [address] Feb, [facility] [place] [facility] [address] [id number] [place] [address] Feb, [facility] [place] [facility] [address] [id number] [place] [address] Feb, [facility] [place] [facility] [address] [id number] [place] [address] Feb, [facility] [place] [facility] [address] [id number] [place] [address] Jan, [facility] [place] [facility] [address] [id number] [place] [address] Jan, [facility] [place] [facility] [address] [id number] [place] [address] Jan, [facility] [place] [facility] [address] [id number] [place] [address] Jan, [facility] [place] [facility] [address] [id number] [place] [address] Jan, [facility] [place] [facility] [address] [id number] [place] [address] Jan, [facility] [place] [facility] [address] [id number] [place] [address] Jan, [facility] [place] [facility] [address] [id number] [place] [address] Jan, [facility] [place] [facility] [address] [id number] [place] [address] Dec, [facility] [place] [facility] [address] [id number] [place] [address] Dec, [facility] [place] [facility] [address] [id number] [place] [address] Dec, [facility] [place] [facility] [address] [id number] [place] [address] Dec, [facility] [place] [facility] [address] [id number] [place] [address] Dec, [facility] [place] [facility] [address] [id number] [place] [address] 17 Dec, 2013 [facility] [place] [facility] [address] [id number] [place] [address] Dec, [facility] [place] [facility] [address] [id number] [place] [address] Dec, [facility] [place] [facility] [address] [id number] [place] [address] Dec, [facility] [place] [facility] [address] [id number] [place] [address] Dec, [facility] [place] [facility] [address] [id number] [place] [address] Nov, [facility] [place] [facility] [address] [id number] [place] [address] Nov, [facility] [place] [facility] [address] [id number] [place] [address] Nov, [facility] [place] [facility] [address] [id number] [place] [address] Nov, [facility] [place] [facility] [address] [id number] [place] [address] Nov, [facility] [place] [facility] [address] [id number] [place] [address] Nov, [facility] [place] [facility] [address] [id number] [place] [address] Nov, [facility] [place] [facility] [address] [id number] [place] [address] Nov, [facility] [place] [facility] [address] [id number] [place] [address] Nov, [facility] [place] [facility] [address] [id number] [place] [address] Nov, [facility] [place] [facility] [address] [id number] [place] [address] Oct, [facility] [place] [facility] [address] [id number] [place] [address] Oct, [facility] [place] [facility] [address] [id number] [place] [address] 18 Oct, 2012 [facility] [place] [facility] [address] [id number] [place] [address] 18 Oct, 2012 [facility] [place] [facility] [address] [id number] [place] [address] 17 Oct, 2012 [facility] [place] [facility] [address] [id number] [place] [address] 17 Oct, 2012 [facility] [place] [facility] [address] [id number] [place] [address] 16 Oct, 2013 [facility] [place] [facility] [address] [id number] [place] [address] 16 Oct, 2013 [facility] [place] [facility] [address] [id number] [place] [address] 11 Oct, 2013 [facility] [place] [facility] [address] [id number] [place] [address] 11 Oct, 2013 [facility] [place] [facility] [address] [id number] [place] [address] 04 Oct, 2013 [facility] [place] [facility] [address] [id number] [place] [address] 04 Oct, 2013 [facility] [place] [facility] [address] [id number] [place] [address] 04 Oct, 2013 [facility] [place] [facility] [address] [id number] [place] [address] 04 Oct, 2013 [facility] [place] [facility] [address] [id number] [place] [address] 27 Sep, 2013 [facility] [place] [facility] [address] [id number] [place] [address] 27 Sep, 2013 [facility] [place] [facility] [address] [id number] [place] [address] 18 Sep, 2013 [facility] [place] [facility] [address] [id number] [place] [address] 18 Sep, 2013 [facility] [place] [facility] [address] [id number] [place] [address] 13 Sep, 2013 [facility] [place] [facility] [address] [id number] [place] [address] Sep, 2012 [facility] [place] [facility] [address] [id number] [place] [address] Aug, 2012 [facility] [place] [facility] [address] [id number] [place] [address] 31 Aug, 2012 [facility] [place] [facility] [address] [id number] [place] [address] Aug, 2012 [facility] [place] [facility] [address] [facility] [id number] [place] [address] 17 Aug, 2012 [facility] [place] [facility] [address] [id number] [place] [address] 10 Aug, 2012 [facility] [place] [facility] [address] [id number] [place] [address] 10 Aug, 2012 [facility] [place] [facility] [address] [id number] [place] [address] 07 Aug, 2013 [facility] [place] [facility] [address] [id number] [place] [address] 02 Aug, 2012 [facility] [place] [facility] [address] [id number] [place] [address] 02 Aug, 2013 [facility] [place] [facility] [address] [id number] [place] [address] 25 Jul, 2012 [facility] [place] [facility] [address] [id number] [place] [address] 23 Sep, 2012 [facility] [place] [facility] [address] [id number] [place] [address] 21 Sep, 2012 [facility] [place] [facility] [address] [id number] [place] [address] 20 Sep, 2012 [facility] [place] [facility] [address] [id number] [place] [address] 18 Sep, 2012 [facility] [place] [facility] [address] [id number] [place] [address] 17 Sep, 2012 [facility] [place] [facility] [address] [id number] [place] [address] 16 Jul, 2012 [facility] [place] [facility] [address] [id number] [place] [address] 11 Jul, 2012 [facility] [place] [facility] [address] [facility] [id number] [place] [address] 09 Jul, 2012 [facility] [place] [facility] [address] [id number] [place] [address] 09 Jul, 2012 [facility] [place] [facility] [address] [facility] [id number] [place] [address] 06 Jul, 2012 [facility] [place] [facility] [address] [id number] [place] [address] Jul, 2012 [facility] [place] [facility] [address] [id number] [place] [address] Jun, [facility] [place] [facility] [address] [id number] [place] [address] Jun, [facility] [place] [facility] [address] [id number] [place] [address] Jun, [facility] [place] [facility] [address] [facility] [facility] [id number] [place] [address] Jun, [facility] [place] [facility] [address] [id number] [place] [address] Jun, [facility] [place] [facility] [address] [id number] [place] [address] Jun, [facility] [place] [facility] [address] [id number] [place] [address] Jun, [facility] [place] [facility] [address] [id number] [place] [address] Jun, [facility] [place] [facility] [address] [id number] [place] [address] Jun, [facility] [place] [facility] [address] [facility] [facility] [id number] [place] [address] May, [facility] [place] [facility] [address] [id number] [place] [address] May, [facility] [place] [facility] [address] [id number] [place] [address] May, [facility] [place] [facility] [address] [facility] [facility] [id number] [place] [address] May, [facility] [place] [facility] [address] [id number] [place] [address] May, [facility] [place] [facility] [address] [id number] [place] [address] May, [facility] [place] [facility] [address] [id number] [place] [address] May, [facility] [place] [facility] [address] [id number] [place] [address] March, [facility] [place] [facility] [address] [id number] [place] [address] March, [facility] [place] [facility] [address] [id number] [place] [address] March, [facility] [place] [facility] [address] [id number] [place] [address] Dec, [facility] [place] [facility] [address] [id number] [place] [address] Nov, [facility] [place] [facility] [address] [id number] [place] [address] Aug, [facility] [place] [facility] [address] [id number] [place] [address] Aug, [facility] [place] [facility] [address] [id number] [place] [address] Jun, [facility] [place] [facility] [address] [facility] [facility] [id number] [place] [address] Jun, [facility] [place] [facility] [address] [id number] [place] [address] Jun, [facility] [place] [facility] [address] [id number] [place] [address] Jun, [facility] [place] [facility] [address] [id number] [place] [address] May, [facility] [place] [facility] [address] [id number] [place] [address] May, [facility] [place] [facility] [address] [id number] [place] [address] May, [facility] [place] [facility] [address] [id number] [place] [address] May, [facility] [place] [facility] [address] [id number] [place] [address] May, [facility] [place] [facility] [address] [facility] [facility] [id number] [place] [address] May, [facility] [place] [facility] [address] [id number] [place] [address] May, [facility] [place] [facility] [address] [id number] [place] [address] Apr, [facility] [place] [facility] [address] [id number] [place] [address] Apr, [facility] [place] [facility] [address] [id number] [place] [address] Apr, [facility] [place] [facility] [address] [id number] [place] [address] Apr, [facility] [place] [facility] [address] [id number] [place] [address] March, [facility] [place] [facility] [address] [id number] [place] [address] March, [facility] [place] [facility] [address] [id number] [place] [address] March, [facility] [place] [facility] [address] [id number] [place] [address] March, [facility] [place] [facility] [address] [id number] [place] [address] March, [facility] [place] [facility] [address] [id number] [place] [address] March, [facility] [place] [facility] [address] [id number] [place] [address] March, [facility] [place] [facility] [address] [id number] [place] [address] March, [facility] [place] [facility] [address] [id number] [place] [address] March, [facility] [place] [facility] [address] [id number] [place] [address] Feb, [facility] [address] [id number] [place] [address] Feb, [facility] [address] [id number] [place] [address] Jan, [facility] [address] [id number] [place] [address] Jan, [facility] [address] [id number] [place] [address] Jan, [facility] [address] [id number] [place] [address] Jan, [facility] [address] [id number] [place] [address] Dec, [facility] [address] [id number] [place] [address] 16 Dec, 2011 [facility] [address] [id number] [place] [address] Dec, [facility] [address] [id number] [place] [address] Nov, [facility] [address] [id number] [place] [address] Oct, [facility] [address] [id number] [place] [address] 15 Oct, 2011 [facility] [address] [id number] [place] [address] Oct, [facility] [address] [id number] [place] [address] 14 Oct, 2011 [facility] [address] [id number] [place] [address] 14 Oct, 2011 [facility] [address] [id number] [place] [address] Oct, [facility] [address] [id number] [place] [address] Oct, [facility] [id number] [place] [address] Oct, [facility] [address] [id number] [place] [address] Sep, [facility] [address] [id number] [place] [address] 17 Sep, 2011 [facility] [address] [id number] [place] [address] 14 Sep, 2011 [facility] [id number] [place] [address] Sep, [facility] [id number] [place] [address] Sep, [facility] [id number] [place] [address] Sep, [facility] [id number] [place] [address] Sep, [facility] [id number] [place] [address] Sep, [facility] [address] [id number] [place] [address] Sep, [facility] [address] [id number] [place] [address] 24 Aug, 2011 [facility] [id number] [place] [address] 15 Jul, 2011 [facility] [address] [id number] [place] [address] 31 Oct, 2009 [facility] [address] [id number] [place] [address] Oct, [facility] [address] [facility] [id number] [place] [address] Oct, IMMUNIZATIONS No Known Immunizations SOCIAL HISTORY [...]
--- OUTSIDE RECORDS SUMMARY | 2020-03-19 05:57 | XMS REPORT ---
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 18960397 Problem Chronic kidney disease, unspecified N18.9 Active 381200947 Problem Anemia, unspecified D64.9 Active 332054901 Problem Irritable bowel K58.9 Active 1074 3008 Problem Irritable bowel syndrome with diarrhea K58.0 Active 124736317 Problem Claudication I73.9 Active 5626739 6 Problem Intractable migraine without aura and with status migr ainosus G43.011 Active 029295393 Problem Peritoneal dialysis status Z99.2 Act moody 739424784 Problem Migraine without aura and without status migrain osus, not intractable G43.009 Active 041928095 Problem Other insomnia G47.09 Active 96460 2000 Problem Dysthymia F34.1 Active 00050529 Problem Chronic kidney disease, stage 4 (severe) N18.4 Active 611532434 Problem Migraine with aura and without status migrainosu s, not intractable G43.109 Active 1853707 Problem Autonomic neuropathy G90.9 Active 199568172 Problem Type 1 diabetes mellitus with complications E10.8 Active 464275915 Problem Menorrhagia with regular cycle N92.0 Active 962640529 Problem Other chronic pain G89.29 Active 8 1873532 Problem Lymphedema I89.0 Active 983470080 Problem Essential hypertension I10 Active 43583968 Problem Moderate episode of recurrent major depressive disorder F33.1 Active 641239442 Problem Type 1 diabetes mellitus without complications E10 .9 Active 972206335 Problem Primary insomnia F51.01 Active 397 2004 Problem Migraine G43.909 Active 60056303 Problem Low back pain M54.5 Active 969797 009 Problem Diastolic dysfunction I51.89 Active 9213840 Problem ESRF (end stage renal failure) N18.6 Active 36984035 Problem Restless legs G25.81 Active 377403 08 Problem Hyperthyroidism E05.90 Active 3448 6009 ALLERGIES No Information ENCOUNTERS Encounter Location Date Diagnosis [facility] [id number] [place] [address] Jan, [facility] [address] [id number] [place], [place] [id number] Dec, Caries K02.9 and Dental examination Z01. 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 ; Migraine without aura and without status migrainosus, not intractable G43.009 ; Chronic kidney disease, stage 4 (severe) N18.4 ; Claudication I73.9 ; Peritoneal dialysis status Z99.2 ; Diastolic dysfunction I51.89 ; Primary insomnia F51.01 and Burn T30.0 [facility] [address] [address] Sep, Moderate episode of recurrent major depr essive disorder F33.1 and Primary insomnia F51.01 [facility] [address] [address] Aug, Hyperthyroidism E05.90 [facility] [address] [address] May, Restless legs G25.81 [facility] [address] [address] May, [facility] [address] [address] May, [place] [address] [address] May, Type 1 diabetes mellitus with hypoglycem ia without coma E10.649 ; ESRF (end stage renal failure) N18.6 ; Leg cramps R25.2 ; Restless legs G25.81 and Low back pain M54.5 [facility] [address] [address] Apr, Low back pain M54.5 [facility] [address] [address] Apr, [facility] [address] [address] March, Low back pain M54.5 [place] [address] [address] March, [facility] [address] [address] Feb, Low back pain M54.5 [facility] [address] [address] Jan, Low back pain M54.5 [place] [address] [address] Jan, [facility] [address] [address] Jan, [facility] [address] [address] Jan, [facility] [address] [address] Dec, Type 1 diabetes mellitus with hypoglycem ia without coma E10.649 and Low back pain M54.5 [place] [address] [address] Dec, Low back pain M54.5 [facility] [address] [address] Dec, Diastolic dysfunction I51.89 ; Essential hypertension I10 and Chronic kidney disease, stage 4 (severe) N18.4 [place] [address] [address] 11 Dec, 2018 RUQ abdominal pain R10.11 ; Type 1 diabe camryn mellitus without complications E10.9 ; Therapeutic drug monitoring Z51.81 ; Migraine with aura and without status migrainosus, not intractable G43.109 and Intractable migraine without aura and with status migrainosus G43.011 [place] [address] [address] Nov, Low back pain M54.5 [place] [address] [address] Nov, [place] [address] [address] Nov, Intractable migraine without aura and wi th status migrainosus G43.011 ; Lymphedema I89.0 ; Pain in right shoulder M25.511 ; Other chronic pain G89.29 ; Irritable bowel syndrome with diarrhea K58.0 ; Type 1 diabetes mellitus without complications E10.9 and Essential hypertension I10 [place] [address] [address] Oct, Low back pain M54.5 [place] [address] [address] Oct, [place] [address] [address] Oct, Orthostatic hypotension I95.1 ; Shortnes s of breath R06.02 ; Leg swelling M79.89 ; Type 1 diabetes mellitus without complications E10.9 and Claudication I73.9 [place] [address] [address] Sep, Low back pain M54.5 [place] [address] [address] 02 Sep, 2018 Low back pain M54.5 [place] [address] [address] Aug, [facility] [address] [address] Aug, Migraine without aura and without status migrainosus, not intractable G43.009 [facility] [address] [address] Aug, Low back pain M54.5 [facility] [address] [facility] [id number] [place] [address] Aug, Acute rhinosinusitis J01.90 and Sore throat J02.9 [place] [address] [address] Jul, Low back pain M54.5 [facility] [address] [address] Jul, Migraine without aura and without status migrainosus, not intractable G43.009 [place] [address] [address] Jun, Low back pain M54.5 [place] [address] [address] Jun, [facility] [address] [address] Jun, Orthostatic hypotension I95.1 ; Shortnes s of breath R06.02 ; Type 1 diabetes mellitus without complications E10.9 and Leg swelling M79.89 [facility] [address] [address] Jun, Low back pain M54.5 [place] [address] [address] Jun, [facility] [address] [address] May, Migraine without aura and without status migrainosus, not intractable G43.009 [place] [address] [address] May, Migraine without aura and without status migrainosus, not intractable G43.009 ; Restless legs syndrome G25.81 ; Leg cramps R25.2 ; Chronic kidney disease, unspecified N18.9 ; Postural hypotension I95.1 ; Diarrhea, unspecified type R19.7 and Cough R05 [place] [address] [address] May, [place] [address] [address] May, [place] [address] [address] May, Orthostatic hypotension I95.1 ; Shortnes s of breath R06.02 ; Type 1 diabetes mellitus with complications E10.8 and Leg swelling M79.89 [place] [address] [address] May, [place] [address] [address] May, Low back pain M54.5 [place] [address] [address] Apr, Type 1 diabetes mellitus with hyperglyce sebastian E10.65 [place] [address] [address] Apr, Low back pain M54.5 [place] [address] [address] Apr, [place] [address] [address] Apr, [place] [address] [address] March, [place] [address] [address] March, Low back pain M54.5 [place] [address] [address] March, [facility] [address] [address] Feb, [facility] [address] [address] Feb, Low back pain M54.5 [place] [address] [address] Jan, Restless legs syndrome G25.81 [place] [address] [address] Jan, Low back pain M54.5 [place] [address] [address] Jan, [place] [address] [address] Jan, Type 1 diabetes mellitus without complic ations E10.9 ; Low back pain M54.5 ; Cough R05 ; Diarrhea, unspecified type R19.7 ; Migraine without aura and without status migrainosus, not intractable G43.009 and Uses control Z30.9 [place] [address] [address] Dec, Low back pain M54.5 [place] [address] [address] Dec, [place] [address] [address] Nov, Well woman exam Z01.419 ; Menorrhagia wi th regular cycle N92.0 ; Vaginal dryness N89.8 and Migraine with aura and without status migrainosus, not intractable G43.109 [place] [address] [address] Nov, [place] [address] [address] Nov, Low back pain M54.5 [place] [address] [address] Oct, Low back pain M54.5 [facility] [address] [address] Oct, Migraine without aura and without status migrainosus, not intractable G43.009 [facility] [address] [address] Sep, Low back pain M54.5 [facility] [address] [address] Sep, [facility] [address] [address] Sep, Migraine without aura and without status migrainosus, not intractable G43.009 [place] [address] [address] Sep, Type 1 diabetes mellitus with hypoglycem ia without coma E10.649 ; Anemia D64.9 ; Migraine without aura and without status migrainosus, not intractable G43.009 ; Chronic kidney disease, unspecified N18.9 ; Autonomic neuropathy G90.9 and Postural hypotension I95.1 [place] [address] [address] Sep, Low back pain M54.5 [facility] [address] [address] Aug, Low back pain M54.5 [place] [address] [address] 14 Jul, 2017 [facility] [address] [address] Jul, Low back pain M54.5 [place] [address] [address] Jun, [facility] [address] [address] Jun, Low back pain M54.5 [place] [address] [address] Jun, Migraine without aura and without status migrainosus, not intractable G43.009 [facility] [address] [address] Jun, Type 1 diabetes mellitus with hyperglyce sebastian E10.65 ; Dysthymia F34.1 and Migraine without aura and without status migrainosus, not intractable G43.009 [facility] [address] [address] Jun, [facility] [address] [address] May, Type 1 diabetes mellitus with hyperglyce sebastian E10.65 [facility] [address] [address] May, Low back pain M54.5 [facility] [address] [address] May, Type 1 diabetes mellitus with hyperglyce sebastian E10.65 [facility] [address] [address] Apr, [facility] [address] [address] Apr, Chronic kidney disease, stage 4 (severe) N18.4 [facility] [address] [address] Apr, Low back pain M54.5 [facility] [address] [address] March, [facility] [address] [address] March, Low back pain M54.5 [facility] [address] [address] Feb, [facility] [address] [address] Feb, [facility] [address] [address] Feb, Low back pain M54.5 [place] [address] [address] Feb, Low back pain M54.5 [place] [address] [address] Feb, Migraine without aura and without status migrainosus, not intractable G43.009 [place] [address] [address] Feb, [place] [address] [address] Jan, Low back pain M54.5 [place] [address] [address] Jan, Type 1 diabetes mellitus without complic ations E10.9 ; Anemia D64.9 ; Chronic kidney disease, unspecified N18.9 ; Migraine without aura and without status migrainosus, not intractable G43.009 and Other insomnia G47.09 [place] [address] [address] Jan, [place] [address] [address] Dec, Low back pain M54.5 [place] [address] [address] Dec, [place] [address] [address] Dec, [place] [address] [address] Dec, Shortness of breath R06.02 ; Type 1 diab etes mellitus without complications E10.9 and Leg swelling M79.89 [place] [address] [address] Nov, Low back pain M54.5 [place] [address] [address] Nov, Viral syndrome B34.9 [facility] [address] [address] Oct, Low back pain M54.5 [facility] [address] [address] Oct, [facility] [address] [address] Oct, Low back pain M54.5 [facility] [address] [address] Sep, [facility] [address] [address] Sep, Fatigue, unspecified type R53.83 ; Type 1 diabetes mellitus without complications E10.9 and Anemia D64.9 [place] [address] [address] Sep, Low back pain M54.5 [facility] [address] [address] Sep, Type 1 diabetes mellitus with hyperglyce sebastian E10.65 [place] [address] [address] Aug, Type 1 diabetes mellitus without complic ations E10.9 [facility] [address] [address] Aug, [facility] [address] [address] Aug, [facility] [address] [address] Jul, [facility] [address] [address] 14 Jul, 2016 Low back pain M54.5 [facility] [address] [address] 12 Jul, 2016 Hyperkalemia, diminished renal excretion E87.5 [facility] [address] [address] Jul, Hyperkalemia, diminished renal excretion E87.5 [place] [address] [address] Jun, [facility] [address] [address] Jun, Low back pain M54.5 [place] [address] [address] Jun, Anemia D64.9 ; Autonomic neuropathy G90. 9 and Postural hypotension I95.1 [place] [address] [address] Jun, [place] [address] [address] May, Type 1 diabetes mellitus with complicati ons E10.8 and Anemia D64.9 [place] [address] [address] May, Low back pain M54.5 [place] [address] [address] Apr, [place] [address] [address] Apr, Low back pain M54.5 [place] [address] [address] Apr, [place] [address] [address] Apr, [place] [address] [address] March, Low back pain M54.5 and Other chronic pa in G89.29 [place] [address] [address] March, Type 1 diabetes mellitus without complic ations E10.9 [place] [address] [address] March, [facility] [address] [address] March, [facility] [address] [address] Feb, [facility] [address] [address] Feb, Type 1 diabetes mellitus without complic ations E10.9 [facility] [address] [address] Feb, Trochanteric bursitis, right hip M70.61 [place] [address] [address] Jan, [facility] [address] [address] Jan, [facility] [address] [address] Dec, Type 1 diabetes mellitus with complicati ons E10.8 [facility] [address] [address] Dec, [facility] [address] [address] Dec, Anemia D64.9 ; Autonomic neuropathy G90. 9 and Postural hypotension I95.1 [place] [address] [address] Dec, [facility] [address] [address] Nov, Sore throat J02.9 [facility] [address] [address] Nov, Type 1 diabetes mellitus with complicati ons E10.8 [facility] [address] [address] Nov, Type 1 diabetes mellitus with diabetic n ephropathy E10.21 ; Proteinuria, unspecified R80.9 and Chronic kidney disease, unspecified N18.9 [facility] [id number] [place] [address] Nov, [facility] [address] [address] Nov, Trochanteric bursitis, right hip M70.61 [facility] [address] [address] Nov, [facility] [address] [address] Oct, [facility] [address] [address] Oct, [facility] [address] [address] Oct, [facility] [address] [address] Sep, [facility] [address] [address] Sep, [facility] [address] [address] Sep, Type 2 diabetes mellitus with complicati on E11.8 and Right hip pain M25.551 [facility] [address] [address] Sep, [facility] [address] [address] Aug, [facility] [address] [address] Aug, [facility] [address] [address] Aug, [facility] [address] [address] Aug, Type 1 diabetes mellitus without complic ations E10.9 [facility] [address] [address] Jul, [facility] [id number] [place] [address] Jul, [facility] [address] [address] Jul, [facility] [id number] [place] [address] Jun, [facility] [address] [address] Jun, [facility] [address] [address] Jun, [facility] [address] [address] Jun, [facility] [address] [address] Jun, [facility] [address] [address] Jun, Diabetes mellitus without mention of com plication, type I [juvenile type], not stated as uncontrolled 250.01 [facility] [id number] [place] [address] May, [facility] [address] [address] May, [facility] [address] [address] May, [facility] [address] [address] May, Autonomic neuropathy 337.9 ; Postural hy potension 458.0 and Anemia 285.9 [facility] [id number] [place] [address] May, [facility] [address] [address] Apr, [facility] [id number] [place] [address] Apr, [facility] [address] [address] [place] [address] Apr, [facility] [address] [facility] [id number] [place] [address] Apr, [facility] [address] [id number] [place] [address] Apr, [facility] [address] [id number] [place] [address] March, [facility] [address] [id number] [place] [address] March, [facility] [address] [id number] [place] [address] March, [facility] [address] [id number] [place] [address] March, [facility] [address] [id number] [place] [address] March, [facility] [address] [id number] [place] [address] Feb, [facility] [address] [id number] [place] [address] Feb, [facility] [address] [id number] [place] [address] Feb, [facility] [address] [id number] [place] [address] 30 Jan, 2015 [facility] [address] [id number] [place] [address] Jan, [facility] [address] [id number] [place] [address] 24 Jan, 2015 [facility] [address] [id number] [place] [address] Jan, [facility] [address] [id number] [place] [address] Jan, [facility] [address] [id number] [place] [address] Jan, [facility] [address] [id number] [place] [address] Jan, [facility] [address] [id number] [place] [address] Jan, [facility] [address] [id number] [place] [address] Jan, [facility] [address] [id number] [place] [address] Jan, [facility] [address] [id number] [place] [address] Jan, [facility] [address] [id number] [place] [address] Jan, [facility] [address] [id number] [place] [address] Jan, [facility] [address] [id number] [place] [address] Dec, [facility] [address] [id number] [place] [address] Dec, [facility] [address] [id number] [place] [address] Dec, [facility] [address] [id number] [place] [address] Dec, 2014 [facility] [address] [id number] [place] [address] Dec, [facility] [address] [id number] [place] [address] Dec, 2014 [facility] [address] [id number] [place] [address] Dec, [facility] [address] [id number] [place] [address] Dec, [facility] [address] [id number] [place] [address] Nov, [facility] [address] [id number] [place] [address] Nov, [facility] [address] [id number] [place] [address] Nov, [facility] [address] [id number] [place] [address] Nov, [facility] [address] [id number] [place] [address] Nov, [facility] [address] [id number] [place] [address] Nov, [facility] [address] [id number] [place] [address] Nov, [facility] [address] [id number] [place] [address] Nov, [facility] [address] [id number] [place] [address] Nov, [facility] [address] [id number] [place] [address] Oct, [facility] [address] [id number] [place] [address] Oct, [facility] [address] [id number] [place] [address] Oct, [facility] [address] [id number] [place] [address] Oct, [facility] [address] [id number] [place] [address] Oct, [facility] [address] [id number] [place] [address] Oct, [facility] [address] [id number] [place] [address] Oct, [facility] [address] [id number] [place] [address] Oct, [facility] [address] [id number] [place] [address] Oct, [facility] [address] [id number] [place] [address] Oct, [facility] [address] [id number] [place] [address] Oct, [facility] [address] [id number] [place] [address] Oct, [facility] [address] [id number] [place] [address] Oct, [facility] [address] [id number] [place] [address] Oct, [facility] [address] [id number] [place] [address] Sep, [facility] [address] [id number] [place] [address] Sep, [facility] [id number] [place] [address] Sep, [facility] [address] [id number] [place] [address] Sep, [facility] [address] [id number] [place] [address] Aug, [facility] [address] [id number] [place] [address] Aug, [facility] [address] [id number] [place] [address] Aug, [facility] [address] [id number] [place] [address] Aug, [facility] [address] [id number] [place] [address] Aug, [facility] [id number] [place] [address] Aug, [facility] [address] [id number] [place] [address] Aug, [facility] [address] [id number] [place] [address] Aug, 2013 [facility] [address] [facility] [id number] [place] [address] Aug, [facility] [address] [facility] [id number] [place] [address] Aug, [facility] [address] [id number] [place] [address] 29 Sep, 2013 [facility] [address] [facility] [id number] [place] [address] 29 Sep, 2013 [facility] [address] [facility] [id number] [place] [address] 29 Sep, 2013 [facility] [address] [id number] [place] [address] 29 Jul, 2013 [facility] [address] [id number] [place] [address] 22 Jul, 2013 [facility] [address] [id number] [place] [address] 22 Jul, 2013 [facility] [address] [id number] [place] [address] 19 Jul, 2013 [facility] [address] [id number] [place] [address] 19 Jul, 2013 [facility] [address] [id number] [place] [address] 11 Jul, 2013 [facility] [address] [id number] [place] [address] 11 Jul, 2013 [facility] [address] [facility] [id number] [place] [address] 10 Jul, 2013 [facility] [address] [facility] [id number] [place] [address] 10 Sep, 2013 [facility] [address] [id number] [place] [address] 08 Sep, 2013 [facility] [address] [id number] [place] [address] 08 Sep, 2013 [facility] [address] [id number] [facility] [place] [address] Jul, 2013 [facility] [address] [id number] [facility] [place] [address] Jul, 2013 [facility] [address] [facility] [id number] [facility] [place] [address] Jul, [facility] [address] [id number] [place] [address] Jul, [facility] [address] [id number] [facility] [place] [address] Jun, [facility] [address] [id number] [facility] [place] [address] Jun, [facility] [address] [id number] [place] [address] Jun, [facility] [address] [id number] [place] [address] Jun, [facility] [address] [id number] [place] [address] Jun, [facility] [address] [id number] [place] [address] Jun, [facility] [address] [id number] [place] [address] Jun, [facility] [address] [id number] [place] [address] Jun, [facility] [address] [id number] [place] [address] Jun, [facility] [address] [id number] [place] [address] Jun, [facility] [address] [id number] [place] [address] Jun, [facility] [address] [id number] [place] [address] Jun, [facility] [address] [id number] [place] [address] Jun, [facility] [address] [id number] [place] [address] Jun, [facility] [address] [facility] [id number] [place] [address] Jun, [facility] [address] [id number] [place] [address] May, [facility] [address] [id number] [place] [address] May, [facility] [address] [facility] [id number] [place] [address] May, [facility] [address] [id number] [place] [address] May, [facility] [address] [id number] [place] [address] May, [facility] [address] [id number] [place] [address] May, [facility] [address] [id number] [place] [address] May, [facility] [address] [id number] [place] [address] May, [facility] [address] [id number] [place] [address] Apr, [facility] [address] [id number] [place] [address] Apr, [facility] [address] [id number] [place] [address] Apr, [facility] [address] [facility] [id number] [place] [address] Apr, [facility] [address] [id number] [place] [address] Apr, [facility] [address] [id number] [place] [address] Apr, [facility] [address] [id number] [place] [address] Apr, [facility] [address] [facility] [id number] [facility] [place] [address] Apr, [facility] [address] [facility] [id number] [facility] [place] [address] Apr, [facility] [address] [facility] [id number] [place] [address] Apr, [facility] [address] [facility] [id number] [facility] [place] [address] Apr, [facility] [address] [facility] [id number] [facility] [place] [address] Apr, [facility] [address] [facility] [id number] [facility] [place] [address] Apr, [facility] [address] [id number] [place] [address] Apr, [facility] [address] [id number] [place] [address] Apr, [facility] [address] [facility] [id number] [place] [address] Apr, [facility] [address] [id number] [place] [address] Apr, [facility] [address] [id number] [place] [address] Apr, [facility] [address] [id number] [place] [address] March, [facility] [address] [facility] [id number] [place] [address] March, [facility] [address] [facility] [id number] [place] [address] March, [facility] [address] [facility] [id number] [place] [address] March, [facility] [address] [id number] [place] [address] March, [facility] [address] [facility] [id number] [facility] [place] [address] March, [facility] [address] [id number] [facility] [place] [address] March, [facility] [address] [id number] [place] [address] March, [facility] [address] [id number] [place] [address] March, [facility] [address] [id number] [place] [address] Feb, [facility] [address] [id number] [place] [address] Feb, [facility] [address] [id number] [place] [address] Feb, [facility] [address] [id number] [place] [address] Feb, [facility] [address] [id number] [place] [address] Feb, [facility] [address] [id number] [place] [address] Feb, [facility] [address] [id number] [place] [address] Feb, [facility] [address] [id number] [place] [address] Feb, [facility] [address] [id number] [place] [address] Feb, [facility] [address] [id number] [place] [address] Feb, [facility] [address] [id number] [place] [address] Feb, [facility] [address] [id number] [place] [address] Feb, [facility] [address] [id number] [place] [address] Feb, [facility] [address] [id number] [place] [address] Jan, [facility] [address] [id number] [place] [address] Jan, [facility] [address] [id number] [place] [address] Jan, [facility] [address] [id number] [place] [address] Jan, [facility] [address] [id number] [place] [address] Jan, [facility] [address] [id number] [place] [address] Jan, [facility] [address] [id number] [place] [address] Jan, [facility] [address] [id number] [place] [address] Jan, [facility] [address] [id number] [place] [address] Dec, [facility] [address] [id number] [place] [address] Dec, [facility] [address] [id number] [place] [address] Dec, [facility] [address] [id number] [place] [address] Dec, [facility] [address] [id number] [place] [address] Dec, [facility] [address] [id number] [place] [address] Dec, [facility] [address] [id number] [place] [address] Dec, [facility] [address] [id number] [place] [address] Dec, [facility] [address] [id number] [place] [address] Dec, [facility] [address] [id number] [place] [address] Dec, [facility] [address] [id number] [place] [address] Nov, [facility] [address] [id number] [place] [address] Nov, [facility] [address] [id number] [place] [address] Nov, [facility] [address] [id number] [place] [address] Nov, [facility] [address] [id number] [place] [address] Nov, [facility] [address] [id number] [place] [address] Nov, [facility] [address] [id number] [place] [address] Nov, [facility] [address] [id number] [place] [address] Nov, [facility] [address] [id number] [place] [address] Nov, [facility] [address] [id number] [place] [address] Nov, [facility] [address] [id number] [place] [address] Oct, [facility] [address] [id number] [place] [address] Oct, [facility] [address] [id number] [place] [address] Oct, [facility] [address] [id number] [place] [address] Oct, [facility] [address] [id number] [place] [address] Oct, [facility] [address] [id number] [place] [address] 17 Oct, 2012 [facility] [address] [id number] [place] [address] 16 Oct, 2013 [facility] [address] [id number] [place] [address] 16 Oct, 2013 [facility] [address] [id number] [place] [address] Oct, [facility] [address] [id number] [place] [address] Oct, [facility] [address] [id number] [place] [address] 04 Oct, 2013 [facility] [address] [id number] [place] [address] Oct, [facility] [address] [id number] [place] [address] 04 Oct, 2013 [facility] [address] [id number] [place] [address] Oct, [facility] [address] [id number] [place] [address] Sep, [facility] [address] [id number] [place] [address] 27 Sep, 2013 [facility] [address] [id number] [place] [address] 18 Sep, 2013 [facility] [address] [id number] [place] [address] 18 Sep, 2013 [facility] [address] [id number] [place] [address] 13 Sep, 2013 [facility] [id number] [place] [address] 13 Sep, 2013 [facility] [address] [id number] [place] [address] 31 Aug, 2013 [facility] [address] [id number] [place] [address] 31 Aug, 2012 [facility] [address] [facility] [id number] [place] [address] 17 Aug, 2012 [facility] [address] [facility] [id number] [place] [address] 17 Aug, 2012 [facility] [address] [id number] [place] [address] 10 Aug, 2012 [facility] [address] [id number] [place] [address] 10 Aug, 2012 [facility] [address] [facility] [id number] [place] [address] 07 Aug, 2012 [facility] [address] [id number] [place] [address] 02 Aug, 2012 [facility] [address] [id number] [place] [address] 02 Aug, 2012 [facility] [address] [id number] [place] [address] 25 Sep, 2012 [facility] [address] [id number] [place] [address] 23 Sep, 2012 [facility] [address] [id number] [place] [address] 21 Sep, 2012 [facility] [address] [id number] [place] [address] 20 Sep, 2012 [facility] [address] [id number] [place] [address] 18 Sep, 2012 [facility] [address] [facility] [id number] [place] [address] 17 Sep, 2012 [facility] [address] [facility] [id number] [place] [address] 16 Sep, 2012 [facility] [address] [id number] [place] [address] 11 Sep, 2012 [facility] [address] [id number] [place] [address] 09 Sep, 2012 [facility] [address] [id number] [facility] [place] [address] 09 Jul, 2012 [facility] [address] [id number] [facility] [place] [address] Jul, [facility] [address] [facility] [id number] [place] [address] Jul, [facility] [address] [id number] [place] [address] Jun, [facility] [address] [id number] [place] [address] Jun, [facility] [address] [id number] [place] [address] Jun, [facility] [address] [id number] [place] [address] Jun, [facility] [address] [id number] [place] [address] Jun, [facility] [address] [id number] [place] [address] Jun, [facility] [address] [id number] [place] [address] Jun, [facility] [address] [id number] [place] [address] Jun, [facility] [address] [id number] [place] [address] Jun, [facility] [address] [id number] [place] [address] May, [facility] [address] [id number] [place] [address] May, [facility] [address] [id number] [place] [address] May, [facility] [address] [id number] [place] [address] May, [facility] [address] [id number] [place] [address] May, [facility] [address] [id number] [place] [address] May, [facility] [address] [id number] [place] [address] May, [facility] [address] [id number] [place] [address] March, [facility] [address] [id number] [place] [address] March, [facility] [address] [id number] [place] [address] March, [facility] [address] [id number] [place] [address] Dec, [facility] [address] [id number] [place] [address] Nov, [facility] [address] [id number] [place] [address] Aug, [facility] [address] [id number] [place] [address] Aug, [facility] [address] [id number] [place] [address] Jun, [facility] [address] [id number] [place] [address] Jun, [facility] [address] [id number] [place] [address] Jun, [facility] [address] [id number] [place] [address] Jun, [facility] [address] [id number] [place] [address] May, [facility] [address] [id number] [place] [address] May, [facility] [address] [id number] [place] [address] May, [facility] [address] [id number] [place] [address] May, [facility] [address] [facility] [id number] [place] [address] May, [facility] [address] [facility] [id number] [place] [address] May, [facility] [address] [id number] [place] [address] May, [facility] [address] [id number] [place] [address] Apr, [facility] [address] [facility] [id number] [place] [address] Apr, [facility] [address] [id number] [place] [address] Apr, [facility] [address] [id number] [place] [address] Apr, [facility] [address] [id number] [place] [address] March, [facility] [address] [id number] [place] [address] March, [facility] [address] [id number] [place] [address] March, [facility] [address] [id number] [place] [address] March, [facility] [address] [id number] [place] [address] March, [facility] [address] [id number] [place] [address] March, [facility] [address] [id number] [place] [address] March, [facility] [address] [id number] [place] [address] March, [facility] [address] [id number] [place] [address] March, [facility] [address] [id number] [place] [address] 04 Feb, 2012 [facility] [address] [id number] [place] [address] Feb, [facility] [address] [id number] [place] [address] 28 Jan, 2012 [facility] [address] [id number] [place] [address] 27 Jan, 2012 [facility] [address] [id number] [place] [address] 16 Jan, 2012 [facility] [address] [id number] [place] [address] 05 Jan, 2012 [facility] [address] [id number] [place] [address] 20 Dec, 2011 [facility] [id number] [place] [address] 16 Dec, 2011 [facility] [id number] [place] [address] 15 Dec, 2011 [facility] [address] [id number] [place] [address] Nov, [facility] [address] [id number] [place] [address] Oct, [facility] [id number] [place] [address] 15 Oct, 2011 [facility] [address] [id number] [place] [address] 15 Oct, 2011 [facility] [address] [id number] [place] [address] 14 Oct, 2011 [facility] [id number] [place] [address] 14 Oct, 2011 [facility] [address] [id number] [place] [address] 12 Oct, 2011 [facility] [id number] [place] [address] Oct, [facility] [id number] [place] [address] Oct, [facility] [id number] [place] [address] Sep, [facility] [id number] [place] [address] Sep, [facility] [id number] [place] [address] Sep, [facility] [id number] [place] [address] Sep, [facility] [address] [address] Sep, [facility] [id number] [place] [address] Sep, [facility] [id number] [place] [address] Sep, [facility] [address] [id number] [place] [address] Sep, [facility] [id number] [place] [address] Sep, [facility] [id number] [place] [address] Aug, [facility] [id number] [place] [address] Jul, [facility] [id number] [place] [address] Oct, [facility] [id number] [place] [address] Oct, [facility] [id number] [place] [address] Oct, IMMUNIZATIONS No Known Immunizations SOCIAL HISTORY [...]
--- OUTSIDE RECORDS SUMMARY | 2020-03-19 05:57 | XMS REPORT ---
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 03193729 Problem Chronic kidney disease, unspecified N18.9 Active 163280925 Problem Anemia, unspecified D64.9 Active 661998199 Problem Irritable bowel K58.9 Active 1074 3008 Problem Irritable bowel syndrome with diarrhea K58.0 Active 567649973 Problem Claudication I73.9 Active 4837414 6 Problem Intractable migraine without aura and with status migr ainosus G43.011 Active 794458865 Problem Peritoneal dialysis status Z99.2 Act moody 325079226 Problem Migraine without aura and without status migrain osus, not intractable G43.009 Active 891368467 Problem Other insomnia G47.09 Active 60959 2000 Problem Dysthymia F34.1 Active 98672734 Problem Chronic kidney disease, stage 4 (severe) N18.4 Active 988504680 Problem Migraine with aura and without status migrainosu s, not intractable G43.109 Active 7265698 Problem Autonomic neuropathy G90.9 Active 876157084 Problem Type 1 diabetes mellitus with complications E10.8 Active 988515802 Problem Menorrhagia with regular cycle N92.0 Active 351123725 Problem Other chronic pain G89.29 Active 8 1371213 Problem Lymphedema I89.0 Active 472562180 Problem Essential hypertension I10 Active 58593814 Problem Moderate episode of recurrent major depressive disorder F33.1 Active 841858927 Problem Type 1 diabetes mellitus without complications E10 .9 Active 075409507 Problem Primary insomnia F51.01 Active 397 2004 Problem Migraine G43.909 Active 57078201 Problem Low back pain M54.5 Active 339615 009 Problem Diastolic dysfunction I51.89 Active 8198066 Problem ESRF (end stage renal failure) N18.6 Active 19993230 Problem Restless legs G25.81 Active 854212 08 Problem Hyperthyroidism E05.90 Active 3448 6009 ALLERGIES No Information ENCOUNTERS Encounter Location Date Diagnosis [facility] [id number] [place] [address] Jan, [facility] [address] [id number] [place] [id number] Dec, Caries K02.9 and Dental examination Z01. 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 ; Migraine without aura and without status migrainosus, not intractable G43.009 ; Chronic kidney disease, stage 4 (severe) N18.4 ; Claudication I73.9 ; Peritoneal dialysis status Z99.2 ; Diastolic dysfunction I51.89 ; Primary insomnia F51.01 and Burn T30.0 [facility] [address] [address] Sep, Moderate episode of recurrent major depr essive disorder F33.1 and Primary insomnia F51.01 [facility] [address] [address] Aug, Hyperthyroidism E05.90 [facility] [address] [address] May, Restless legs G25.81 [facility] [address] [address] May, [facility] [address] [address] May, [place] [address] [address] May, Type 1 diabetes mellitus with hypoglycem ia without coma E10.649 ; ESRF (end stage renal failure) N18.6 ; Leg cramps R25.2 ; Restless legs G25.81 and Low back pain M54.5 [facility] [address] [address] Apr, Low back pain M54.5 [facility] [address] [address] Apr, [facility] [address] [address] March, Low back pain M54.5 [place] [address] [address] March, [facility] [address] [address] Feb, Low back pain M54.5 [facility] [address] [address] Jan, Low back pain M54.5 [place] [address] [address] Jan, [facility] [address] [address] Jan, [facility] [address] [address] Jan, [facility] [address] [address] Dec, Type 1 diabetes mellitus with hypoglycem ia without coma E10.649 and Low back pain M54.5 [place] [address] [address] Dec, Low back pain M54.5 [facility] [address] [address] Dec, Diastolic dysfunction I51.89 ; Essential hypertension I10 and Chronic kidney disease, stage 4 (severe) N18.4 [place] [address] [address] 11 Dec, 2018 RUQ abdominal pain R10.11 ; Type 1 diabe camryn mellitus without complications E10.9 ; Therapeutic drug monitoring Z51.81 ; Migraine with aura and without status migrainosus, not intractable G43.109 and Intractable migraine without aura and with status migrainosus G43.011 [place] [address] [address] Nov, Low back pain M54.5 [place] [address] [address] Nov, [place] [address] [address] Nov, Intractable migraine without aura and wi th status migrainosus G43.011 ; Lymphedema I89.0 ; Pain in right shoulder M25.511 ; Other chronic pain G89.29 ; Irritable bowel syndrome with diarrhea K58.0 ; Type 1 diabetes mellitus without complications E10.9 and Essential hypertension I10 [place] [address] [address] Oct, Low back pain M54.5 [place] [address] [address] Oct, [place] [address] [address] Oct, Orthostatic hypotension I95.1 ; Shortnes s of breath R06.02 ; Leg swelling M79.89 ; Type 1 diabetes mellitus without complications E10.9 and Claudication I73.9 [place] [address] [address] Sep, Low back pain M54.5 [place] [address] [address] 02 Sep, 2018 Low back pain M54.5 [place] [address] [address] Aug, [facility] [address] [address] Aug, Migraine without aura and without status migrainosus, not intractable G43.009 [facility] [address] [address] Aug, Low back pain M54.5 [facility] [address] [facility] [id number] [place] [address] Aug, Acute rhinosinusitis J01.90 and Sore throat J02.9 [place] [address] [address] Jul, Low back pain M54.5 [facility] [address] [address] Jul, Migraine without aura and without status migrainosus, not intractable G43.009 [place] [address] [address] Jun, Low back pain M54.5 [place] [address] [address] Jun, [facility] [address] [address] Jun, Orthostatic hypotension I95.1 ; Shortnes s of breath R06.02 ; Type 1 diabetes mellitus without complications E10.9 and Leg swelling M79.89 [facility] [address] [address] Jun, Low back pain M54.5 [place] [address] [address] Jun, [facility] [address] [address] May, Migraine without aura and without status migrainosus, not intractable G43.009 [place] [address] [address] May, Migraine without aura and without status migrainosus, not intractable G43.009 ; Restless legs syndrome G25.81 ; Leg cramps R25.2 ; Chronic kidney disease, unspecified N18.9 ; Postural hypotension I95.1 ; Diarrhea, unspecified type R19.7 and Cough R05 [place] [address] [address] May, [place] [address] [address] May, [place] [address] [address] May, Orthostatic hypotension I95.1 ; Shortnes s of breath R06.02 ; Type 1 diabetes mellitus with complications E10.8 and Leg swelling M79.89 [place] [address] [address] May, [place] [address] [address] May, Low back pain M54.5 [place] [address] [address] Apr, Type 1 diabetes mellitus with hyperglyce sebastian E10.65 [place] [address] [address] Apr, Low back pain M54.5 [place] [address] [address] Apr, [place] [address] [address] Apr, [place] [address] [address] March, [place] [address] [address] March, Low back pain M54.5 [place] [address] [address] March, [facility] [address] [address] Feb, [facility] [address] [address] Feb, Low back pain M54.5 [place] [address] [address] Jan, Restless legs syndrome G25.81 [place] [address] [address] Jan, Low back pain M54.5 [place] [address] [address] Jan, [place] [address] [address] Jan, Type 1 diabetes mellitus without complic ations E10.9 ; Low back pain M54.5 ; Cough R05 ; Diarrhea, unspecified type R19.7 ; Migraine without aura and without status migrainosus, not intractable G43.009 and Uses control Z30.9 [place] [address] [address] Dec, Low back pain M54.5 [place] [address] [address] Dec, [place] [address] [address] Nov, Well woman exam Z01.419 ; Menorrhagia wi th regular cycle N92.0 ; Vaginal dryness N89.8 and Migraine with aura and without status migrainosus, not intractable G43.109 [place] [address] [address] Nov, [place] [address] [address] Nov, Low back pain M54.5 [place] [address] [address] Oct, Low back pain M54.5 [facility] [address] [address] Oct, Migraine without aura and without status migrainosus, not intractable G43.009 [facility] [address] [address] Sep, Low back pain M54.5 [facility] [address] [address] Sep, [facility] [address] [address] Sep, Migraine without aura and without status migrainosus, not intractable G43.009 [place] [address] [address] Sep, Type 1 diabetes mellitus with hypoglycem ia without coma E10.649 ; Anemia D64.9 ; Migraine without aura and without status migrainosus, not intractable G43.009 ; Chronic kidney disease, unspecified N18.9 ; Autonomic neuropathy G90.9 and Postural hypotension I95.1 [place] [address] [address] Sep, Low back pain M54.5 [facility] [address] [address] Aug, Low back pain M54.5 [place] [address] [address] 14 Jul, 2017 [facility] [address] [address] Jul, Low back pain M54.5 [place] [address] [address] Jun, [facility] [address] [address] Jun, Low back pain M54.5 [place] [address] [address] Jun, Migraine without aura and without status migrainosus, not intractable G43.009 [facility] [address] [address] Jun, Type 1 diabetes mellitus with hyperglyce sebastian E10.65 ; Dysthymia F34.1 and Migraine without aura and without status migrainosus, not intractable G43.009 [facility] [address] [address] Jun, [facility] [address] [address] May, Type 1 diabetes mellitus with hyperglyce sebastian E10.65 [facility] [address] [address] May, Low back pain M54.5 [facility] [address] [address] May, Type 1 diabetes mellitus with hyperglyce sebastian E10.65 [facility] [address] [address] Apr, [facility] [address] [address] Apr, Chronic kidney disease, stage 4 (severe) N18.4 [facility] [address] [address] Apr, Low back pain M54.5 [facility] [address] [address] March, [facility] [address] [address] March, Low back pain M54.5 [facility] [address] [address] Feb, [facility] [address] [address] Feb, [facility] [address] [address] Feb, Low back pain M54.5 [place] [address] [address] Feb, Low back pain M54.5 [place] [address] [address] Feb, Migraine without aura and without status migrainosus, not intractable G43.009 [place] [address] [address] Feb, [place] [address] [address] Jan, Low back pain M54.5 [place] [address] [address] Jan, Type 1 diabetes mellitus without complic ations E10.9 ; Anemia D64.9 ; Chronic kidney disease, unspecified N18.9 ; Migraine without aura and without status migrainosus, not intractable G43.009 and Other insomnia G47.09 [place] [address] [address] Jan, [place] [address] [address] Dec, Low back pain M54.5 [place] [address] [address] Dec, [place] [address] [address] Dec, [place] [address] [address] Dec, Shortness of breath R06.02 ; Type 1 diab etes mellitus without complications E10.9 and Leg swelling M79.89 [place] [address] [address] Nov, Low back pain M54.5 [place] [address] [address] Nov, Viral syndrome B34.9 [facility] [address] [address] Oct, Low back pain M54.5 [facility] [address] [address] Oct, [facility] [address] [address] Oct, Low back pain M54.5 [facility] [address] [address] Sep, [facility] [address] [address] Sep, Fatigue, unspecified type R53.83 ; Type 1 diabetes mellitus without complications E10.9 and Anemia D64.9 [place] [address] [address] Sep, Low back pain M54.5 [facility] [address] [address] Sep, Type 1 diabetes mellitus with hyperglyce sebastian E10.65 [place] [address] [address] Aug, Type 1 diabetes mellitus without complic ations E10.9 [facility] [address] [address] Aug, [facility] [address] [address] Aug, [facility] [address] [address] Jul, [facility] [address] [address] 14 Jul, 2016 Low back pain M54.5 [facility] [address] [address] 12 Jul, 2016 Hyperkalemia, diminished renal excretion E87.5 [facility] [address] [address] Jul, Hyperkalemia, diminished renal excretion E87.5 [place] [address] [address] Jun, [facility] [address] [address] Jun, Low back pain M54.5 [place] [address] [address] Jun, Anemia D64.9 ; Autonomic neuropathy G90. 9 and Postural hypotension I95.1 [place] [address] [address] Jun, [place] [address] [address] May, Type 1 diabetes mellitus with complicati ons E10.8 and Anemia D64.9 [place] [address] [address] May, Low back pain M54.5 [place] [address] [address] Apr, [place] [address] [address] Apr, Low back pain M54.5 [place] [address] [address] Apr, [place] [address] [address] Apr, [place] [address] [address] March, Low back pain M54.5 and Other chronic pa in G89.29 [place] [address] [address] March, Type 1 diabetes mellitus without complic ations E10.9 [place] [address] [address] March, [facility] [address] [address] March, [facility] [address] [address] Feb, [facility] [address] [address] Feb, Type 1 diabetes mellitus without complic ations E10.9 [facility] [address] [address] Feb, Trochanteric bursitis, right hip M70.61 [place] [address] [address] Jan, [facility] [address] [address] Jan, [facility] [address] [address] Dec, Type 1 diabetes mellitus with complicati ons E10.8 [facility] [address] [address] Dec, [facility] [address] [address] Dec, Anemia D64.9 ; Autonomic neuropathy G90. 9 and Postural hypotension I95.1 [place] [address] [address] Dec, [facility] [address] [address] Nov, Sore throat J02.9 [facility] [address] [address] Nov, Type 1 diabetes mellitus with complicati ons E10.8 [facility] [address] [address] Nov, Type 1 diabetes mellitus with diabetic n ephropathy E10.21 ; Proteinuria, unspecified R80.9 and Chronic kidney disease, unspecified N18.9 [facility] [id number] [place] [address] Nov, [facility] [address] [address] Nov, Trochanteric bursitis, right hip M70.61 [facility] [address] [address] Nov, [facility] [address] [address] Oct, [facility] [address] [address] Oct, [facility] [address] [address] Oct, [facility] [address] [address] Sep, [facility] [address] [address] Sep, [facility] [address] [address] Sep, Type 2 diabetes mellitus with complicati on E11.8 and Right hip pain M25.551 [facility] [address] [address] Sep, [facility] [address] [address] Aug, [facility] [address] [address] Aug, [facility] [address] [address] Aug, [facility] [address] [address] Aug, Type 1 diabetes mellitus without complic ations E10.9 [facility] [address] [address] Jul, [facility] [id number] [place] [address] Jul, [facility] [address] [address] Jul, [facility] [id number] [place] [address] Jun, [facility] [address] [address] Jun, [facility] [address] [address] Jun, [facility] [address] [address] Jun, [facility] [address] [address] Jun, [facility] [address] [address] Jun, Diabetes mellitus without mention of com plication, type I [juvenile type], not stated as uncontrolled 250.01 [facility] [id number] [place] [address] May, [facility] [address] [address] May, [facility] [address] [address] May, [facility] [address] [address] May, Autonomic neuropathy 337.9 ; Postural hy potension 458.0 and Anemia 285.9 [facility] [id number] [place] [address] May, [facility] [address] [address] Apr, [facility] [id number] [place] [address] Apr, [facility] [address] [place] [address] Apr, [facility] [address] [facility] [id number] [place] [address] Apr, [facility] [address] [id number] [place] [address] Apr, [facility] [address] [id number] [place] [address] March, [facility] [address] [id number] [place] [address] March, [facility] [address] [id number] [place] [address] March, [facility] [address] [id number] [place] [address] March, [facility] [address] [id number] [place] [address] March, [facility] [address] [id number] [place] [address] Feb, [facility] [address] [id number] [place] [address] Feb, [facility] [address] [id number] [place] [address] Feb, [facility] [address] [id number] [place] [address] 30 Jan, 2015 [facility] [address] [id number] [place] [address] Jan, [facility] [address] [id number] [place] [address] 24 Jan, 2015 [facility] [address] [id number] [place] [address] Jan, [facility] [address] [id number] [place] [address] Jan, [facility] [address] [id number] [place] [address] Jan, [facility] [address] [id number] [place] [address] Jan, [facility] [address] [id number] [place] [address] Jan, [facility] [address] [id number] [place] [address] Jan, [facility] [address] [id number] [place] [address] Jan, [facility] [address] [id number] [place] [address] Jan, [facility] [address] [id number] [place] [address] Jan, [facility] [address] [id number] [place] [address] Jan, [facility] [address] [id number] [place] [address] Dec, [facility] [address] [id number] [place] [address] Dec, [facility] [address] [id number] [place] [address] Dec, [facility] [address] [id number] [place] [address] Dec, 2014 [facility] [address] [facility] [id number] [place] [address] Dec, [facility] [address] [facility] [id number] [place] [address] Dec, 2014 [facility] [address] [id number] [place] [address] Dec, [facility] [address] [id number] [place] [address] Dec, [facility] [address] [id number] [place] [address] Nov, [facility] [address] [id number] [place] [address] Nov, [facility] [address] [id number] [place] [address] Nov, [facility] [address] [id number] [place] [address] Nov, [facility] [address] [id number] [place] [address] Nov, [facility] [address] [id number] [place] [address] Nov, [facility] [address] [id number] [place] [address] Nov, [facility] [address] [id number] [place] [address] Nov, [facility] [address] [id number] [place] [address] Nov, [facility] [id number] [place] [address] Oct, [facility] [id number] [place] [address] Oct, [facility] [address] [facility] [id number] [place] [address] Oct, [facility] [address] [facility] [id number] [place] [address] Oct, [facility] [address] [facility] [id number] [place] [address] Oct, [facility] [address] [facility] [id number] [place] [address] Oct, [facility] [address] [facility] [id number] [place] [address] Oct, [facility] [address] [facility] [id number] [place] [address] Oct, [facility] [address] [facility] [id number] [place] [address] Oct, [facility] [address] [facility] [id number] [place] [address] Oct, [facility] [address] [facility] [id number] [place] [address] Oct, [facility] [address] [facility] [id number] [place] [address] Oct, [facility] [address] [facility] [id number] [place] [address] Oct, [facility] [address] [facility] [id number] [place] [address] Oct, [facility] [address] [facility] [id number] [place] [address] Sep, [facility] [address] [facility] [id number] [place] [address] Sep, [facility] [id number] [place] [address] Sep, [facility] [address] [facility] [id number] [place] [address] Sep, [facility] [address] [facility] [id number] [place] [address] Aug, [facility] [address] [facility] [id number] [place] [address] Aug, [facility] [address] [facility] [id number] [place] [address] Aug, [facility] [address] [facility] [id number] [place] [address] Aug, [facility] [address] [facility] [id number] [place] [address] Aug, [facility] [id number] [place] [address] Aug, [facility] [address] [facility] [id number] [place] [address] Aug, [facility] [address] [facility] [id number] [place] [address] Aug, 2013 [facility] [address] [facility] [id number] [place] [address] Aug, [facility] [address] [facility] [id number] [place] [address] Aug, [facility] [address] [facility] [id number] [place] [address] 29 Sep, 2013 [facility] [address] [facility] [id number] [place] [address] 29 Sep, 2013 [facility] [address] [facility] [id number] [place] [address] 29 Sep, 2013 [facility] [address] [facility] [id number] [place] [address] 29 Jul, 2013 [facility] [address] [facility] [id number] [place] [address] 22 Jul, 2013 [facility] [address] [facility] [id number] [place] [address] 22 Jul, 2013 [facility] [address] [facility] [id number] [place] [address] 19 Jul, 2013 [facility] [address] [facility] [id number] [place] [address] 19 Jul, 2013 [facility] [address] [facility] [id number] [place] [address] 11 Jul, 2013 [facility] [address] [facility] [id number] [place] [address] 11 Jul, 2013 [facility] [address] [facility] [id number] [place] [address] 10 Jul, 2013 [facility] [address] [facility] [id number] [place] [address] 10 Sep, 2013 [facility] [address] [facility] [id number] [place] [address] 08 Sep, 2013 [facility] [address] [facility] [id number] [place] [address] 08 Sep, 2013 [facility] [address] [id number] [place] [address] Jul, 2013 [facility] [address] [id number] [place] [address] Jul, 2013 [facility] [address] [facility] [id number] [place] [address] Jul, [facility] [address] [id number] [place] [address] Jul, [facility] [address] [id number] [place] [address] Jun, [facility] [address] [id number] [place] [address] Jun, [facility] [address] [id number] [place] [address] Jun, [facility] [address] [id number] [place] [address] Jun, [facility] [address] [id number] [place] [address] Jun, [facility] [address] [id number] [place] [address] Jun, [facility] [address] [id number] [place] [address] Jun, [facility] [address] [id number] [place] [address] Jun, [facility] [address] [id number] [place] [address] Jun, [facility] [address] [id number] [place] [address] Jun, [facility] [address] [id number] [place] [address] Jun, [facility] [address] [id number] [place] [address] Jun, [facility] [address] [facility] [id number] [place] [address] Jun, [facility] [address] [id number] [place] [address] Jun, [facility] [address] [facility] [id number] [place] [address] Jun, [facility] [address] [facility] [id number] [place] [address] May, [facility] [address] [facility] [id number] [place] [address] May, [facility] [address] [facility] [id number] [place] [address] May, [facility] [address] [facility] [id number] [place] [address] May, [facility] [address] [facility] [id number] [place] [address] May, [facility] [address] [facility] [id number] [place] [address] May, [facility] [id number] [place] [address] May, [facility] [address] [id number] [place] [address] May, [facility] [address] [facility] [id number] [place] [address] Apr, [facility] [id number] [place] [address] Apr, [facility] [address] [facility] [id number] [place] [address] Apr, [facility] [address] [facility] [id number] [place] [address] Apr, [facility] [address] [facility] [id number] [place] [address] Apr, [facility] [address] [facility] [id number] [place] [address] Apr, [facility] [address] [facility] [id number] [place] [address] Apr, [facility] [address] [facility] [id number] [place] [address] Apr, [facility] [address] [facility] [id number] [place] [address] Apr, [facility] [address] [facility] [id number] [place] [address] Apr, [facility] [address] [facility] [id number] [place] [address] Apr, [facility] [address] [facility] [id number] [place] [address] Apr, [facility] [address] [facility] [id number] [place] [address] Apr, [facility] [address] [facility] [id number] [place] [address] Apr, [facility] [id number] [place] [address] Apr, [facility] [address] [facility] [id number] [place] [address] Apr, [facility] [address] [facility] [id number] [place] [address] Apr, [facility] [address] [id number] [place] [address] Apr, [facility] [address] [facility] [id number] [place] [address] March, [facility] [address] [facility] [id number] [place] [address] March, [facility] [address] [facility] [id number] [place] [address] March, [facility] [address] [facility] [id number] [place] [address] March, [facility] [address] [facility] [id number] [place] [address] March, [facility] [address] [facility] [id number] [place] [address] March, [facility] [address] [id number] [place] [address] March, [facility] [address] [id number] [place] [address] March, [facility] [id number] [place] [address] March, [facility] [address] [id number] [place] [address] Feb, [facility] [address] [id number] [place] [address] Feb, [facility] [id number] [place] [address] Feb, [facility] [address] [id number] [place] [address] Feb, [facility] [address] [id number] [place] [address] Feb, [facility] [address] [id number] [place] [address] Feb, [facility] [address] [id number] [place] [address] Feb, [facility] [address] [facility] [id number] [place] [address] Feb, [facility] [address] [id number] [place] [address] Feb, [facility] [address] [id number] [place] [address] Feb, [facility] [address] [id number] [place] [address] Feb, [facility] [address] [facility] [id number] [place] [address] Feb, [facility] [address] [facility] [id number] [place] [address] Feb, [facility] [address] [facility] [id number] [place] [address] Jan, [facility] [address] [facility] [id number] [place] [address] Jan, [facility] [address] [facility] [id number] [place] [address] Jan, [facility] [address] [facility] [id number] [place] [address] Jan, [facility] [address] [facility] [id number] [place] [address] Jan, [facility] [address] [facility] [id number] [place] [address] Jan, [facility] [address] [facility] [id number] [place] [address] Jan, [facility] [address] [facility] [id number] [place] [address] Jan, [facility] [address] [facility] [id number] [place] [address] Dec, [facility] [address] [facility] [id number] [place] [address] Dec, [facility] [address] [facility] [id number] [place] [address] Dec, [facility] [address] [facility] [id number] [place] [address] Dec, [facility] [address] [facility] [id number] [place] [address] Dec, [facility] [address] [facility] [id number] [place] [address] Dec, [facility] [address] [facility] [id number] [place] [address] Dec, [facility] [address] [facility] [id number] [place] [address] Dec, [facility] [address] [facility] [id number] [place] [address] Dec, [facility] [address] [facility] [id number] [place] [address] Dec, [facility] [address] [facility] [id number] [place] [address] Nov, [facility] [address] [facility] [id number] [place] [address] Nov, [facility] [address] [facility] [id number] [place] [address] Nov, [facility] [address] [facility] [id number] [place] [address] Nov, [facility] [address] [facility] [id number] [place] [address] Nov, [facility] [address] [facility] [id number] [place] [address] Nov, [facility] [address] [facility] [id number] [place] [address] Nov, [facility] [address] [facility] [id number] [place] [address] Nov, [facility] [address] [facility] [id number] [place] [address] Nov, [facility] [address] [facility] [id number] [place] [address] Nov, [facility] [address] [facility] [id number] [place] [address] Oct, [facility] [address] [facility] [id number] [place] [address] Oct, [facility] [address] [facility] [id number] [place] [address] Oct, [facility] [address] [facility] [id number] [place] [address] Oct, [facility] [address] [facility] [id number] [place] [address] Oct, [facility] [address] [facility] [id number] [place] [address] 17 Oct, 2012 [facility] [address] [facility] [id number] [place] [address] 16 Oct, 2013 [facility] [address] [facility] [id number] [place] [address] 16 Oct, 2013 [facility] [address] [id number] [place] [address] Oct, [facility] [address] [id number] [place] [address] Oct, [facility] [address] [id number] [place] [address] 04 Oct, 2013 [facility] [address] [id number] [place] [address] Oct, [facility] [id number] [place] [address] 04 Oct, 2013 [facility] [address] [id number] [place] [address] Oct, [facility] [address] [id number] [place] [address] Sep, [facility] [address] [id number] [place] [address] 27 Sep, 2013 [facility] [address] [id number] [place] [address] 18 Sep, 2013 [facility] [address] [id number] [place] [address] 18 Sep, 2013 [facility] [address] [id number] [place] [address] 13 Sep, 2013 [facility] [id number] [place] [address] 13 Sep, 2013 [facility] [address] [id number] [place] [address] 31 Aug, 2013 [facility] [address] [id number] [place] [address] 31 Aug, 2012 [facility] [address] [facility] [id number] [place] [address] 17 Aug, 2012 [facility] [address] [facility] [id number] [place] [address] 17 Aug, 2012 [facility] [address] [id number] [place] [address] 10 Aug, 2012 [facility] [address] [id number] [place] [address] 10 Aug, 2012 [facility] [address] [facility] [id number] [place] [address] 07 Aug, 2012 [facility] [address] [id number] [place] [address] 02 Aug, 2012 [facility] [address] [id number] [place] [address] 02 Aug, 2012 [facility] [address] [id number] [place] [address] 25 Sep, 2012 [facility] [address] [id number] [place] [address] 23 Sep, 2012 [facility] [address] [id number] [place] [address] 21 Sep, 2012 [facility] [address] [id number] [place] [address] 20 Sep, 2012 [facility] [address] [id number] [place] [address] 18 Sep, 2012 [facility] [address] [facility] [id number] [place] [address] 17 Sep, 2012 [facility] [address] [facility] [id number] [place] [address] 16 Sep, 2012 [facility] [address] [id number] [place] [address] 11 Sep, 2012 [facility] [address] [id number] [place] [address] 09 Sep, 2012 [facility] [address] [id number] [place] [address] 09 Jul, 2012 [facility] [address] [id number] [place] [address] Jul, [facility] [address] [facility] [id number] [place] [address] Jul, [facility] [address] [id number] [place] [address] Jun, [facility] [address] [id number] [place] [address] Jun, [facility] [address] [id number] [place] [address] Jun, [facility] [address] [id number] [place] [address] Jun, [facility] [address] [id number] [place] [address] Jun, [facility] [address] [id number] [place] [address] Jun, [facility] [address] [id number] [place] [address] Jun, [facility] [address] [id number] [place] [address] Jun, [facility] [address] [id number] [place] [address] Jun, [facility] [address] [id number] [place] [address] May, [facility] [address] [id number] [place] [address] May, [facility] [address] [id number] [place] [address] May, [facility] [address] [id number] [place] [address] May, [facility] [address] [id number] [place] [address] May, [facility] [address] [id number] [place] [address] May, [facility] [address] [id number] [place] [address] May, [facility] [address] [id number] [place] [address] March, [facility] [address] [id number] [place] [address] March, [facility] [address] [id number] [place] [address] March, [facility] [address] [id number] [place] [address] Dec, [facility] [address] [id number] [place] [address] Nov, [facility] [address] [id number] [place] [address] Aug, [facility] [address] [id number] [place] [address] Aug, [facility] [address] [id number] [place] [address] Jun, [facility] [address] [id number] [place] [address] Jun, [facility] [address] [id number] [place] [address] Jun, [facility] [address] [id number] [place] [address] Jun, [facility] [address] [id number] [place] [address] May, [facility] [address] [id number] [place] [address] May, [facility] [address] [id number] [place] [address] May, [facility] [address] [id number] [place] [address] May, [facility] [address] [facility] [id number] [place] [address] May, [facility] [address] [facility] [id number] [place] [address] May, [facility] [address] [id number] [place] [address] May, [facility] [address] [id number] [place] [address] Apr, [facility] [address] [facility] [id number] [place] [address] Apr, [facility] [address] [id number] [place] [address] Apr, [facility] [address] [id number] [place] [address] Apr, [facility] [address] [id number] [place] [address] March, [facility] [address] [id number] [place] [address] March, [facility] [address] [id number] [place] [address] March, [facility] [address] [id number] [place] [address] March, [facility] [address] [id number] [place] [address] March, [facility] [address] [id number] [place] [address] March, [facility] [address] [id number] [place] [address] March, [facility] [address] [id number] [place] [address] March, [facility] [address] [id number] [place] [address] March, [facility] [address] [id number] [place] [address] 04 Feb, 2012 [facility] [address] [id number] [place] [address] Feb, [facility] [address] [id number] [place] [address] 28 Jan, 2012 [facility] [address] [id number] [place] [address] 27 Jan, 2012 [facility] [address] [id number] [place] [address] 16 Jan, 2012 [facility] [address] [id number] [place] [address] 05 Jan, 2012 [facility] [address] [id number] [place] [address] 20 Dec, 2011 [facility] [id number] [place] [address] 16 Dec, 2011 [facility] [id number] [place] [address] 15 Dec, 2011 [facility] [address] [id number] [place] [address] Nov, [facility] [address] [id number] [place] [address] Oct, [facility] [id number] [place] [address] 15 Oct, 2011 [facility] [address] [id number] [place] [address] 15 Oct, 2011 [facility] [address] [id number] [place] [address] 14 Oct, 2011 [facility] [id number] [place] [address] 14 Oct, 2011 [facility] [address] [id number] [place] [address] 12 Oct, 2011 [facility] [id number] [place] [address] Oct, [facility] [id number] [place] [address] Oct, [facility] [id number] [place] [address] Sep, [facility] [id number] [place] [address] Sep, [facility] [id number] [place] [address] Sep, [facility] [id number] [place] [address] Sep, [facility] [address] [address] Sep, [facility] [id number] [place] [address] Sep, [facility] [id number] [place] [id number] Sep, [facility] [address] [id number] [place] [address] Sep, [facility] [id number] [place] [address] Sep, [facility] [address] [id number] [place] [address] Aug, [facility] [address] [id number] [place] [address] Jul, [facility] [address] [id number] [place] [address] Oct, [facility] [address] [id number] [place] [address] Oct, [facility] [id number] [place] [address] Oct, IMMUNIZATIONS No Known Immunizations SOCIAL HISTORY [...]
--- OUTSIDE RECORDS SUMMARY | 2020-03-19 05:58 | XMS REPORT ---
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 08765365 Problem Chronic kidney disease, unspecified N18.9 Active 142939827 Problem Anemia, unspecified D64.9 Active 633997110 Problem Irritable bowel K58.9 Active 1074 3008 Problem Irritable bowel syndrome with diarrhea K58.0 Active 313976324 Problem Claudication I73.9 Active 4095477 6 Problem Intractable migraine without aura and with status migr ainosus G43.011 Active 983354116 Problem Peritoneal dialysis status Z99.2 Act moody 566905044 Problem Migraine without aura and without status migrain osus, not intractable G43.009 Active 269438554 Problem Other insomnia G47.09 Active 96826 2000 Problem Dysthymia F34.1 Active 34812367 Problem Chronic kidney disease, stage 4 (severe) N18.4 Active 113637738 Problem Migraine with aura and without status migrainosu s, not intractable G43.109 Active 1029599 Problem Autonomic neuropathy G90.9 Active 210829499 Problem Type 1 diabetes mellitus with complications E10.8 Active 872327178 Problem Menorrhagia with regular cycle N92.0 Active 974862358 Problem Other chronic pain G89.29 Active 8 1655442 Problem Lymphedema I89.0 Active 649849814 Problem Essential hypertension I10 Active 33614559 Problem Moderate episode of recurrent major depressive disorder F33.1 Active 705467630 Problem Type 1 diabetes mellitus without complications E10 .9 Active 489253163 Problem Primary insomnia F51.01 Active 397 2004 Problem Migraine G43.909 Active 51733069 Problem Low back pain M54.5 Active 359279 009 Problem Diastolic dysfunction I51.89 Active 7176409 Problem ESRF (end stage renal failure) N18.6 Active 20520224 Problem Restless legs G25.81 Active 154583 08 Problem Hyperthyroidism E05.90 Active 3448 6009 ALLERGIES No Information ENCOUNTERS Encounter Location Date Diagnosis [place] [id number] [address] Jan, [facility] [address] [id number] Jan, [facility] [address] [id number] Dec, Caries K02.9 and Dental examination Z01. 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 ; Migraine without aura and without status migrainosus, not intractable G43.009 ; Chronic kidney disease, stage 4 (severe) N18.4 ; Claudication I73.9 ; Peritoneal dialysis status Z99.2 ; Diastolic dysfunction I51.89 ; Primary insomnia F51.01 and Burn T30.0 [place] [address] [address] Sep, Moderate episode of recurrent major depr essive disorder F33.1 and Primary insomnia F51.01 [place] [address] [address] Aug, Hyperthyroidism E05.90 [place] [address] [address] May, Restless legs G25.81 [place] [address] [address] May, [place] [address] [address] May, [facility] [address] [address] May, Type 1 diabetes mellitus with hypoglycem ia without coma E10.649 ; ESRF (end stage renal failure) N18.6 ; Leg cramps R25.2 ; Restless legs G25.81 and Low back pain M54.5 [facility] [address] [address] Apr, Low back pain M54.5 [facility] [address] [address] Apr, [facility] [address] [address] March, Low back pain M54.5 [facility] [address] [address] March, [facility] [address] [address] Feb, Low back pain M54.5 [facility] [address] [address] Jan, Low back pain M54.5 [facility] [address] [address] Jan, [facility] [address] [address] Jan, [facility] [address] [address] Jan, [facility] [address] [address] Dec, Type 1 diabetes mellitus with hypoglycem ia without coma E10.649 and Low back pain M54.5 [facility] [address] [address] Dec, Low back pain M54.5 [facility] [address] [address] 13 Dec, 2018 Diastolic dysfunction I51.89 ; Essential hypertension I10 and Chronic kidney disease, stage 4 (severe) N18.4 [place] [address] [address] 11 Dec, 2018 RUQ abdominal pain R10.11 ; Type 1 diabe camryn mellitus without complications E10.9 ; Therapeutic drug monitoring Z51.81 ; Migraine with aura and without status migrainosus, not intractable G43.109 and Intractable migraine without aura and with status migrainosus G43.011 [place] [address] [address] Nov, Low back pain M54.5 [place] [address] [address] Nov, [address] [address] 14 Nov, 2018 Intractable migraine without aura and wi th status migrainosus G43.011 ; Lymphedema I89.0 ; Pain in right shoulder M25.511 ; Other chronic pain G89.29 ; Irritable bowel syndrome with diarrhea K58.0 ; Type 1 diabetes mellitus without complications E10.9 and Essential hypertension I10 [place] [address] [address] Oct, Low back pain M54.[address] [address] Oct, [address] [address] Oct, Orthostatic hypotension I95.1 ; Shortnes s of breath R06.02 ; Leg swelling M79.89 ; Type 1 diabetes mellitus without complications E10.9 and Claudication I73.[address] [address] Sep, Low back pain M54.[address] [address] Sep, Low back pain M54.5 [facility] [address] [address] Aug, [facility] [address] [address] Aug, Migraine without aura and without status migrainosus, not intractable G43.009 [facility] [address] [address] Aug, Low back pain M54.5 [facility] [address] [facility] [id number] [address] [place] [address] Aug, Acute rhinosinusitis J01.90 and Sore throat J02.9 [facility] [address] [address] 28 Jul, 2018 Low back pain M54.5 [facility] [address] [address] Jul, Migraine without aura and without status migrainosus, not intractable G43.009 [facility] [address] [address] Jun, Low back pain M54.5 [facility] [address] [address] Jun, [facility] [address] [address] Jun, Orthostatic hypotension I95.1 ; Shortnes s of breath R06.02 ; Type 1 diabetes mellitus without complications E10.9 and Leg swelling M79.89 [facility] [address] [address] Jun, Low back pain M54.5 [facility] [address] [address] Jun, [facility] [address] [address] May, Migraine without aura and without status migrainosus, not intractable G43.009 [place] [address] [address] May, Migraine without aura and without status migrainosus, not intractable G43.009 ; Restless legs syndrome G25.81 ; Leg cramps R25.2 ; Chronic kidney disease, unspecified N18.9 ; Postural hypotension I95.1 ; Diarrhea, unspecified type R19.7 and Cough R05 [place] [address] [address] May, [place] [address] [address] May, [place] [address] [address] May, Orthostatic hypotension I95.1 ; Shortnes s of breath R06.02 ; Type 1 diabetes mellitus with complications E10.8 and Leg swelling M79.89 [place] [address] [address] May, [place] [address] [address] May, Low back pain M54.5 [place] [address] [address] Apr, Type 1 diabetes mellitus with hyperglyce sebastian E10.65 [place] [address] [address] Apr, Low back pain M54.5 [place] [address] [address] Apr, [place] [address] [address] Apr, [place] [address] [address] March, [place] [address] [address] March, Low back pain M54.5 [place] [address] [address] March, [place] [address] [address] Feb, [place] [address] [address] Feb, Low back pain M54.5 [place] [address] [address] Jan, Restless legs syndrome G25.81 [place] [address] [address] Jan, Low back pain M54.5 [place] [address] [address] Jan, [place] [address] [address] Jan, Type 1 diabetes mellitus without complic ations E10.9 ; Low back pain M54.5 ; Cough R05 ; Diarrhea, unspecified type R19.7 ; Migraine without aura and without status migrainosus, not intractable G43.009 and Uses control Z30.9 [place] [address] [address] Dec, Low back pain M54.5 [place] [address] [address] Dec, [place] [address] [address] Nov, Well woman exam Z01.419 ; Menorrhagia wi th regular cycle N92.0 ; Vaginal dryness N89.8 and Migraine with aura and without status migrainosus, not intractable G43.109 [place] [address] [address] Nov, [place] [address] [address] Nov, Low back pain M54.5 [facility] [address] [address] Oct, Low back pain M54.5 [facility] [address] [address] Oct, Migraine without aura and without status migrainosus, not intractable G43.009 [facility] [address] [address] Sep, Low back pain M54.5 [facility] [address] [address] Sep, [facility] [address] [address] Sep, Migraine without aura and without status migrainosus, not intractable G43.009 [facility] [address] [address] Sep, Type 1 diabetes mellitus with hypoglycem ia without coma E10.649 ; Anemia D64.9 ; Migraine without aura and without status migrainosus, not intractable G43.009 ; Chronic kidney disease, unspecified N18.9 ; Autonomic neuropathy G90.9 and Postural hypotension I95.1 [facility] [address] [address] Sep, Low back pain M54.5 [facility] [address] [address] Aug, Low back pain M54.5 [facility] [address] [address] 14 Jul, 2017 [facility] [address] [address] Jul, Low back pain M54.5 [facility] [address] [address] Jun, [facility] [address] [address] Jun, Low back pain M54.5 [facility] [address] [address] Jun, Migraine without aura and without status migrainosus, not intractable G43.009 [facility] [address] [address] Jun, Type 1 diabetes mellitus with hyperglyce sebastian E10.65 ; Dysthymia F34.1 and Migraine without aura and without status migrainosus, not intractable G43.009 [facility] [address] [address] Jun, [facility] [address] [address] May, Type 1 diabetes mellitus with hyperglyce sebastian E10.65 [facility] [address] [address] May, Low back pain M54.5 [facility] [address] [address] May, Type 1 diabetes mellitus with hyperglyce sebastian E10.65 [facility] [address] [address] Apr, [facility] [address] [address] Apr, Chronic kidney disease, stage 4 (severe) N18.4 [facility] [address] [address] Apr, Low back pain M54.5 [facility] [address] [address] March, [facility] [address] [address] March, Low back pain M54.5 [facility] [address] [address] Feb, [facility] [address] [address] Feb, [facility] [address] [address] Feb, Low back pain M54.5 [facility] [address] [address] Feb, Low back pain M54.5 [facility] [address] [address] Feb, Migraine without aura and without status migrainosus, not intractable G43.009 [facility] [address] [address] Feb, [facility] [address] [address] Jan, Low back pain M54.5 [facility] [address] [address] Jan, Type 1 diabetes mellitus without complic ations E10.9 ; Anemia D64.9 ; Chronic kidney disease, unspecified N18.9 ; Migraine without aura and without status migrainosus, not intractable G43.009 and Other insomnia G47.09 [place] [address] [address] Jan, [facility] [address] [address] Dec, Low back pain M54.5 [facility] [address] [address] Dec, [facility] [address] [address] Dec, [facility] [address] [address] 08 Dec, 2016 Shortness of breath R06.02 ; Type 1 diab etes mellitus without complications E10.9 and Leg swelling M79.89 [facility] [address] [address] Nov, Low back pain M54.5 [facility] [address] [address] Nov, Viral syndrome B34.9 [facility] [address] [address] Oct, Low back pain M54.5 [facility] [address] [address] Oct, [facility] [address] [address] Oct, Low back pain M54.5 [facility] [address] [address] Sep, [place] [address] [address] Sep, Fatigue, unspecified type R53.83 ; Type 1 diabetes mellitus without complications E10.9 and Anemia D64.9 [place] [address] [address] Sep, Low back pain M54.5 [place] [address] [address] Sep, Type 1 diabetes mellitus with hyperglyce sebastian E10.65 [place] [address] [address] Aug, Type 1 diabetes mellitus without complic ations E10.9 [place] [address] [address] Aug, [place] [address] [address] Aug, [place] [address] [address] Jul, [place] [address] [address] 14 Jul, 2016 Low back pain M54.5 [place] [address] [address] Jul, Hyperkalemia, diminished renal excretion E87.5 [facility] [address] [address] Jul, Hyperkalemia, diminished renal excretion E87.5 [facility] [address] [address] Jun, [facility] [address] [address] Jun, Low back pain M54.5 [facility] [address] [address] Jun, Anemia D64.9 ; Autonomic neuropathy G90. 9 and Postural hypotension I95.1 [place] [address] [address] Jun, [place] [address] [address] May, Type 1 diabetes mellitus with complicati ons E10.8 and Anemia D64.9 [place] [address] [address] May, Low back pain M54.5 [place] [address] [address] Apr, [place] [address] [address] Apr, Low back pain M54.5 [place] [address] [address] Apr, [place] [address] [address] Apr, [place] [address] [address] March, Low back pain M54.5 and Other chronic pa in G89.29 [facility] [address] [address] March, Type 1 diabetes mellitus without complic ations E10.9 [facility] [address] [place] [id number] [place] [address] March, [facility] [address] [address] March, [facility] [address] [address] Feb, [facility] [address] [address] Feb, Type 1 diabetes mellitus without complic ations E10.9 [facility] [address] [address] Feb, Trochanteric bursitis, right hip M70.61 [facility] [address] [address] Jan, [facility] [address] [address] Jan, [facility] [address] [address] Dec, Type 1 diabetes mellitus with complicati ons E10.8 [facility] [address] [address] Dec, [facility] [address] [address] Dec, Anemia D64.9 ; Autonomic neuropathy G90. 9 and Postural hypotension I95.1 [facility] [address] [address] Dec, [facility] [address] [address] Nov, Sore throat J02.9 [facility] [address] [address] Nov, Type 1 diabetes mellitus with complicati ons E10.8 [facility] [address] [address] Nov, Type 1 diabetes mellitus with diabetic n ephropathy E10.21 ; Proteinuria, unspecified R80.9 and Chronic kidney disease, unspecified N18.9 [facility] [address] [address] Nov, [facility] [address] [address] Nov, Trochanteric bursitis, right hip M70.61 [facility] [address] [address] Nov, [facility] [address] [address] Oct, [facility] [address] [address] Oct, [facility] [address] [address] Oct, [facility] [address] [address] Sep, [facility] [address] [address] Sep, [facility] [address] [address] Sep, Type 2 diabetes mellitus with complicati on E11.8 and Right hip pain M25.551 [facility] [address] [address] Sep, [facility] [address] [address] Aug, [facility] [address] [address] Aug, [facility] [address] [address] Aug, [facility] [address] [address] Aug, Type 1 diabetes mellitus without complic ations E10.9 [facility] [address] [place] [id number] [place] [address] 16 Jul, 2015 [facility] [address] [address] Jul, [facility] [address] [address] Jul, [facility] [address] [address] Jun, [facility] [address] [address] Jun, [facility] [address] [address] Jun, [facility] [address] [address] Jun, [facility] [address] [address] Jun, [facility] [address] [address] Jun, Diabetes mellitus without mention of com plication, type I [juvenile type], not stated as uncontrolled 250.01 [facility] [address] [place] [id number] [place] [address] May, [facility] [address] [address] May, [facility] [address] [address] May, [facility] [address] [address] May, Autonomic neuropathy 337.9 ; Postural hy potension 458.0 and Anemia 285.9 [facility] [address] [place] [id number] [place] [address] May, [facility] [address] [address] Apr, [facility] [address] [place] [address] Apr, [facility] [address] [facility] [id number] [facility] [place] [address] Apr, [facility] [address] [id number] [place] [address] Apr, [facility] [address] [id number] [place] [address] Apr, [facility] [address] [id number] [place] [address] March, [facility] [address] [id number] [place] [address] March, [facility] [address] [id number] [place] [address] March, [facility] [address] [id number] [place] [address] March, [facility] [address] [id number] [place] [address] March, [facility] [address] [id number] [place] [address] Feb, [facility] [address] [id number] [place] [address] Feb, [facility] [address] [id number] [place] [address] Feb, [facility] [address] [id number] [place] [address] 30 Jan, 2015 [facility] [address] [id number] [place] [address] Jan, [facility] [address] [id number] [place] [address] Jan, [facility] [address] [id number] [place] [address] Jan, [facility] [address] [id number] [place] [address] Jan, [facility] [address] [id number] [place] [address] Jan, [facility] [address] [id number] [place] [address] Jan, [facility] [address] [id number] [place] [address] Jan, [facility] [address] [id number] [place] [address] Jan, [facility] [address] [id number] [place] [address] Jan, [facility] [address] [id number] [place] [address] Jan, [facility] [address] [id number] [place] [address] Jan, [facility] [address] [id number] [place] [address] Jan, [facility] [address] [id number] [place] [address] Dec, 2014 [facility] [address] [id number] [place] [address] Dec, 2014 [facility] [address] [id number] [place] [address] Dec, 2014 [facility] [address] [id number] [place] [address] Dec, 2014 [facility] [address] [id number] [place] [address] Dec, 2014 [facility] [address] [id number] [place] [address] Dec, 2014 [facility] [address] [id number] [place] [address] Dec, 2014 [facility] [address] [id number] [place] [address] Dec, 2014 [facility] [address] [id number] [place] [address] Nov, [facility] [address] [id number] [place] [address] Nov, [facility] [address] [id number] [place] [address] Nov, [facility] [address] [facility] [id number] [place] [address] Nov, [facility] [address] [facility] [id number] [place] [address] Nov, [facility] [address] [facility] [id number] [place] [address] Nov, [facility] [address] [facility] [id number] [place] [address] Nov, [facility] [address] [facility] [id number] [place] [address] Nov, [facility] [address] [facility] [id number] [place] [address] Nov, [facility] [address] [facility] [id number] [place] [address] Oct, [facility] [address] [facility] [id number] [place] [address] Oct, [facility] [address] [facility] [id number] [place] [address] Oct, [facility] [address] [facility] [id number] [place] [address] Oct, [facility] [address] [facility] [id number] [place] [address] Oct, [facility] [address] [facility] [id number] [place] [address] Oct, [facility] [place] [facility] [address] [facility] [id number] [place] [address] Oct, [facility] [place] [facility] [address] [facility] [id number] [place] [address] Oct, [facility] [place] [facility] [address] [facility] [id number] [place] [address] Oct, [facility] [place] [facility] [address] [facility] [id number] [place] [address] Oct, [facility] [place] [facility] [address] [facility] [id number] [place] [address] Oct, [facility] [place] [facility] [address] [facility] [id number] [place] [address] Oct, [facility] [place] [facility] [address] [facility] [id number] [place] [address] Oct, [facility] [place] [facility] [address] [facility] [id number] [place] [address] Oct, [facility] [place] [facility] [address] [facility] [id number] [place] [address] Sep, [facility] [place] [facility] [address] [facility] [id number] [place] [address] Sep, [facility] [place] [facility] [address] [facility] [id number] [place] [address] Sep, [facility] [place] [facility] [address] [facility] [id number] [place] [address] Sep, [facility] [place] [facility] [address] [facility] [id number] [place] [address] Aug, [facility] [place] [facility] [address] [facility] [id number] [place] [address] Aug, [facility] [place] [facility] [address] [facility] [id number] [place] [address] Aug, [facility] [place] [facility] [address] [facility] [id number] [place] [address] Aug, [facility] [place] [facility] [id number] [place] [address] Aug, [facility] [place] [facility] [address] [facility] [id number] [place] [address] Aug, [facility] [place] [facility] [address] [facility] [id number] [place] [address] Aug, [facility] [place] [facility] [address] [facility] [id number] [place] [address] Aug, 2013 [facility] [place] [facility] [address] [facility] [id number] [place] [address] Aug, 2013 [facility] [place] [facility] [address] [facility] [id number] [place] [address] 02 Aug, 2013 [facility] [place] [facility] [address] [facility] [id number] [place] [address] 29 Sep, 2013 [facility] [place] [facility] [address] [facility] [id number] [place] [address] 29 Sep, 2013 [facility] [place] [facility] [address] [facility] [id number] [place] [address] 29 Jul, 2013 [facility] [place] [facility] [address] [facility] [id number] [place] [address] 29 Jul, 2013 [facility] [place] [facility] [address] [facility] [id number] [place] [address] 22 Jul, 2013 [facility] [place] [facility] [address] [facility] [id number] [place] [address] 22 Sep, 2013 [facility] [place] [facility] [address] [facility] [id number] [place] [address] 19 Jul, 2013 [facility] [place] [facility] [address] [facility] [id number] [place] [address] 19 Sep, 2013 [facility] [place] [facility] [address] [facility] [id number] [place] [address] 11 Jul, 2013 [facility] [place] [facility] [address] [facility] [id number] [place] [address] 11 Sep, 2013 [facility] [place] [facility] [address] [facility] [id number] [place] [address] 10 Sep, 2013 [facility] [place] [facility] [address] [facility] [id number] [place] [address] 10 Jul, 2013 [facility] [place] [facility] [address] [facility] [id number] [place] [address] 08 Sep, 2013 [facility] [place] [facility] [address] [id number] [place] [address] 08 Jul, 2013 [facility] [place] [facility] [address] [id number] [place] [address] 03 Jul, 2013 [facility] [place] [facility] [address] [facility] [id number] [facility] [place] [address] 03 Jul, 2013 [facility] [place] [facility] [address] [facility] [id number] [facility] [place] [address] Jul, 2013 [facility] [place] [facility] [address] [facility] [id number] [facility] [place] [address] Jul, 2013 [facility] [place] [facility] [address] [facility] [id number] [place] [address] Jun, [facility] [place] [facility] [address] [facility] [id number] [place] [address] Jun, [facility] [place] [facility] [address] [facility] [id number] [place] [address] Jun, [facility] [place] [facility] [address] [facility] [id number] [facility] [place] [address] Jun, [facility] [place] [facility] [address] [facility] [id number] [facility] [place] [address] Jun, [facility] [place] [facility] [address] [facility] [id number] [place] [address] Jun, [facility] [place] [facility] [address] [facility] [id number] [place] [address] Jun, [facility] [place] [facility] [address] [facility] [id number] [place] [address] Jun, [facility] [place] [facility] [address] [facility] [id number] [place] [address] Jun, [facility] [place] [facility] [address] [facility] [id number] [place] [address] Jun, [facility] [place] [facility] [address] [facility] [id number] [place] [address] Jun, [facility] [place] [facility] [address] [facility] [id number] [place] [address] Jun, [facility] [place] [facility] [address] [id number] [place] [address] Jun, [facility] [place] [facility] [address] [facility] [id number] [place] [address] Jun, [facility] [place] [facility] [address] [facility] [id number] [place] [address] Jun, [facility] [place] [facility] [address] [facility] [id number] [place] [address] May, [facility] [place] [facility] [address] [facility] [id number] [place] [address] May, [facility] [place] [facility] [address] [facility] [id number] [place] [address] May, [facility] [place] [facility] [address] [facility] [id number] [place] [address] May, [facility] [place] [facility] [address] [facility] [id number] [place] [address] May, [facility] [place] [facility] [address] [facility] [id number] [place] [address] May, [facility] [place] [facility] [address] [facility] [id number] [place] [address] May, [facility] [place] [facility] [address] [facility] [id number] [place] [address] May, [facility] [place] [facility] [address] [facility] [id number] [place] [address] Apr, [facility] [place] [facility] [address] [facility] [id number] [place] [address] Apr, [facility] [place] [facility] [address] [facility] [id number] [place] [address] Apr, [facility] [place] [facility] [address] [facility] [id number] [place] [address] Apr, [facility] [place] [facility] [address] [facility] [id number] [place] [address] Apr, [facility] [place] [facility] [address] [facility] [id number] [place] [address] Apr, [facility] [place] [facility] [address] [facility] [id number] [place] [address] Apr, [facility] [place] [facility] [address] [facility] [id number] [facility] [place] [address] Apr, [facility] [place] [facility] [address] [facility] [id number] [place] [address] Apr, [facility] [place] [facility] [address] [facility] [id number] [place] [address] Apr, [facility] [place] [facility] [address] [facility] [id number] [place] [address] Apr, [facility] [place] [facility] [address] [facility] [id number] [place] [address] Apr, [facility] [place] [facility] [address] [facility] [id number] [place] [address] Apr, [facility] [place] [facility] [address] [facility] [id number] [place] [address] Apr, [facility] [place] [facility] [address] [facility] [id number] [place] [address] Apr, [facility] [place] [facility] [address] [facility] [id number] [place] [address] Apr, [facility] [place] [facility] [address] [facility] [id number] [place] [address] Apr, [facility] [place] [facility] [address] [facility] [id number] [place] [address] Apr, [facility] [place] [facility] [address] [facility] [id number] [place] [address] March, [facility] [place] [facility] [address] [facility] [id number] [place] [address] March, [facility] [place] [facility] [address] [facility] [id number] [place] [address] March, [facility] [place] [facility] [address] [facility] [id number] [place] [address] March, [facility] [place] [facility] [address] [facility] [id number] [facility] [place] [address] March, [facility] [place] [facility] [address] [facility] [id number] [facility] [place] [address] March, [facility] [place] [facility] [address] [facility] [id number] [place] [address] March, [facility] [place] [facility] [address] [facility] [id number] [place] [address] March, [facility] [place] [facility] [address] [facility] [id number] [place] [address] March, [facility] [place] [facility] [address] [facility] [id number] [facility] [place] [address] Feb, [facility] [place] [facility] [address] [facility] [id number] [place] [address] Feb, [facility] [place] [facility] [address] [facility] [id number] [place] [address] Feb, [facility] [place] [facility] [address] [facility] [id number] [place] [address] Feb, [facility] [place] [facility] [address] [facility] [id number] [facility] [place] [address] Feb, [facility] [place] [facility] [address] [facility] [id number] [place] [address] Feb, [facility] [place] [facility] [address] [facility] [id number] [place] [address] Feb, [facility] [place] [facility] [address] [facility] [id number] [place] [address] Feb, [facility] [place] [facility] [address] [facility] [id number] [place] [address] Feb, [facility] [place] [facility] [address] [facility] [id number] [place] [address] Feb, [facility] [place] [facility] [address] [facility] [id number] [place] [address] Feb, [facility] [place] [facility] [address] [facility] [id number] [place] [address] Feb, [facility] [place] [facility] [address] [facility] [id number] [place] [address] Feb, [facility] [place] [facility] [address] [facility] [id number] [place] [address] Jan, [facility] [place] [facility] [address] [facility] [id number] [place] [address] Jan, [facility] [place] [facility] [address] [facility] [id number] [place] [address] Jan, [facility] [place] [facility] [address] [facility] [id number] [place] [address] Jan, [facility] [place] [facility] [address] [facility] [id number] [place] [address] Jan, [facility] [place] [facility] [address] [facility] [id number] [place] [address] Jan, [facility] [place] [facility] [address] [facility] [id number] [place] [address] Jan, [facility] [place] [facility] [address] [facility] [id number] [place] [address] Jan, [facility] [place] [facility] [address] [facility] [id number] [place] [address] Dec, [facility] [place] [facility] [address] [facility] [id number] [place] [address] Dec, [facility] [place] [facility] [address] [facility] [id number] [place] [address] Dec, [facility] [place] [facility] [address] [facility] [id number] [place] [address] Dec, [facility] [place] [facility] [address] [facility] [id number] [place] [address] Dec, [facility] [place] [facility] [address] [facility] [id number] [place] [address] Dec, [facility] [place] [facility] [address] [facility] [id number] [place] [address] Dec, [facility] [place] [facility] [address] [facility] [id number] [place] [address] Dec, [facility] [place] [facility] [address] [facility] [id number] [place] [address] Dec, [facility] [place] [facility] [address] [facility] [id number] [place] [address] Dec, [facility] [place] [facility] [address] [facility] [id number] [place] [address] Nov, [facility] [place] [facility] [address] [facility] [id number] [place] [address] Nov, [facility] [place] [facility] [address] [facility] [id number] [place] [address] Nov, [facility] [place] [facility] [address] [facility] [id number] [place] [address] Nov, [facility] [place] [facility] [address] [id number] [place] [address] Nov, [facility] [place] [facility] [address] [facility] [id number] [place] [address] Nov, [facility] [place] [facility] [address] [facility] [id number] [place] [address] Nov, [facility] [place] [facility] [address] [id number] [place] [address] Nov, [facility] [place] [facility] [address] [facility] [id number] [place] [address] Nov, [facility] [place] [facility] [address] [id number] [place] [address] Nov, [facility] [place] [facility] [address] [facility] [id number] [place] [address] Oct, [facility] [place] [facility] [address] [facility] [id number] [place] [address] Oct, [facility] [place] [facility] [address] [facility] [id number] [place] [address] Oct, [facility] [place] [facility] [address] [facility] [id number] [place] [address] Oct, [facility] [place] [facility] [address] [facility] [id number] [place] [address] 17 Oct, 2013 [facility] [place] [facility] [address] [facility] [id number] [place] [address] 17 Oct, 2013 [facility] [place] [facility] [address] [facility] [id number] [place] [address] 16 Oct, 2013 [facility] [place] [facility] [address] [facility] [id number] [place] [address] 16 Oct, 2013 [facility] [place] [facility] [address] [facility] [id number] [place] [address] Oct, [facility] [place] [facility] [address] [facility] [id number] [place] [address] Oct, [facility] [place] [facility] [address] [facility] [id number] [place] [address] Oct, [facility] [place] [facility] [address] [facility] [id number] [place] [address] 04 Oct, 2013 [facility] [place] [facility] [address] [facility] [id number] [place] [address] 04 Oct, 2013 [facility] [place] [facility] [address] [facility] [id number] [place] [address] Oct, [facility] [place] [facility] [address] [facility] [id number] [place] [address] Sep, [facility] [place] [facility] [address] [facility] [id number] [place] [address] 27 Sep, 2013 [facility] [place] [facility] [address] [facility] [id number] [place] [address] 18 Sep, 2013 [facility] [place] [facility] [address] [facility] [id number] [place] [address] 18 Sep, 2013 [facility] [place] [facility] [address] [id number] [place] [address] Sep, [facility] [place] [facility] [address] [facility] [id number] [place] [address] Sep, [facility] [place] [facility] [address] [facility] [id number] [place] [address] Aug, [facility] [place] [facility] [address] [facility] [id number] [place] [address] 31 Aug, 2012 [facility] [place] [facility] [address] [facility] [id number] [place] [address] 17 Aug, 2012 [facility] [place] [facility] [address] [facility] [id number] [place] [address] 17 Aug, 2012 [facility] [place] [facility] [address] [facility] [id number] [place] [address] 10 Aug, 2012 [facility] [place] [facility] [address] [facility] [id number] [place] [address] 10 Aug, 2012 [facility] [place] [facility] [address] [facility] [id number] [place] [address] 07 Aug, 2012 [facility] [place] [facility] [address] [facility] [id number] [place] [address] 02 Aug, 2012 [facility] [place] [facility] [address] [facility] [id number] [place] [address] 02 Aug, 2012 [facility] [place] [facility] [address] [facility] [id number] [place] [address] 25 Sep, 2012 [facility] [place] [facility] [address] [facility] [id number] [place] [address] 23 Sep, 2012 [facility] [place] [facility] [address] [facility] [id number] [place] [address] 21 Sep, 2012 [facility] [place] [facility] [address] [facility] [id number] [place] [address] 20 Sep, 2012 [facility] [place] [facility] [address] [facility] [id number] [place] [address] 18 Sep, 2012 [facility] [place] [facility] [address] [facility] [id number] [place] [address] 17 Sep, 2012 [facility] [place] [facility] [address] [facility] [id number] [place] [address] 16 Sep, 2012 [facility] [place] [facility] [address] [facility] [id number] [place] [address] 11 Sep, 2012 [facility] [place] [facility] [address] [id number] [place] [address] Jul, 2012 [facility] [place] [facility] [address] [id number] [facility] [place] [address] Jul, 2012 [facility] [place] [facility] [address] [facility] [id number] [facility] [place] [address] Jul, 2012 [facility] [place] [facility] [address] [facility] [id number] [facility] [place] [address] Jul, [facility] [place] [facility] [address] [facility] [id number] [facility] [place] [address] Jun, [facility] [place] [facility] [address] [facility] [id number] [facility] [place] [address] Jun, [facility] [place] [facility] [address] [facility] [id number] [place] [address] Jun, [facility] [place] [facility] [address] [facility] [id number] [place] [address] Jun, [facility] [place] [facility] [address] [facility] [id number] [place] [address] Jun, [facility] [place] [facility] [address] [facility] [id number] [place] [address] Jun, [facility] [place] [facility] [address] [facility] [id number] [place] [address] Jun, [facility] [place] [facility] [address] [facility] [id number] [place] [address] Jun, [facility] [place] [facility] [address] [facility] [id number] [place] [address] Jun, [facility] [place] [facility] [address] [facility] [id number] [place] [address] May, [facility] [place] [facility] [address] [facility] [id number] [place] [address] May, [facility] [place] [facility] [address] [facility] [id number] [place] [address] May, [facility] [place] [facility] [address] [facility] [id number] [place] [address] May, [facility] [place] [facility] [address] [id number] [facility] [place] [address] May, [facility] [address] [facility] [id number] [place] [address] May, [facility] [address] [facility] [id number] [place] [address] May, [facility] [address] [facility] [id number] [place] [address] March, [facility] [address] [facility] [id number] [place] [address] March, [facility] [address] [facility] [id number] [place] [address] March, [facility] [address] [facility] [id number] [place] [address] Dec, [facility] [address] [facility] [id number] [place] [address] Nov, [facility] [address] [facility] [id number] [place] [address] Aug, [facility] [address] [facility] [id number] [place] [address] Aug, [facility] [address] [facility] [id number] [place] [address] Jun, [facility] [address] [facility] [id number] [place] [address] Jun, [facility] [address] [facility] [id number] [place] [address] Jun, [facility] [address] [facility] [id number] [place] [address] Jun, [facility] [address] [id number] [place] [address] May, [facility] [address] [facility] [id number] [place] [address] May, [facility] [address] [facility] [id number] [place] [address] May, [facility] [address] [id number] [place] [address] May, [facility] [address] [facility] [id number] [facility] [place] [address] May, [facility] [address] [facility] [id number] [place] [address] May, [facility] [address] [id number] [facility] [place] [address] May, [facility] [address] [facility] [id number] [facility] [place] [address] Apr, [facility] [address] [facility] [id number] [place] [address] Apr, [facility] [address] [facility] [id number] [place] [address] Apr, [facility] [address] [id number] [place] [address] Apr, [facility] [address] [facility] [id number] [place] [address] March, [facility] [address] [id number] [place] [address] March, [facility] [address] [id number] [place] [address] March, [facility] [address] [id number] [place] [address] March, [facility] [address] [facility] [id number] [place] [address] March, [facility] [address] [id number] [place] [address] March, [facility] [address] [facility] [id number] [place] [address] March, [facility] [address] [facility] [id number] [place] [address] March, [facility] [address] [id number] [place] [address] March, [facility] [address] [facility] [id number] [facility] [place] [address] Feb, [facility] [address] [facility] [id number] [place] [address] Feb, [facility] [address] [facility] [id number] [place] [address] Jan, [facility] [address] [facility] [id number] [place] [address] 27 Jan, 2012 [facility] [address] [facility] [id number] [place] [address] Jan, [facility] [address] [id number] [place] [address] Jan, [facility] [address] [facility] [id number] [place] [address] Dec, [facility] [address] [facility] [id number] [place] [address] 16 Dec, 2011 [facility] [address] [facility] [id number] [place] [address] 15 Dec, 2011 [facility] [address] [facility] [id number] [place] [address] Nov, [facility] [address] [facility] [id number] [place] [address] Oct, [facility] [address] [id number] [place] [address] 15 Oct, 2011 [facility] [address] [id number] [place] [address] 15 Oct, 2011 [facility] [address] [id number] [place] [address] 14 Oct, 2011 [facility] [address] [id number] [place] [address] 14 Oct, 2011 [facility] [address] [id number] [place] [address] 12 Oct, 2011 [facility] [id number] [place] [address] Oct, [facility] [id number] [place] [address] Oct, [facility] [id number] [place] [address] Sep, [facility] [id number] [place] [address] Sep, [facility] [id number] [place] [address] Sep, [facility] [id number] [place] [address] Sep, [facility] [id number] [place] [address] Sep, [facility] [id number] [place] [address] Sep, [facility] [id number] [place] [address] Sep, [facility] [id number] [place] [address] Sep, [facility] [id number] [place] [address] Sep, [facility] [address] [id number] [place] [address] Aug, [facility] [address] [id number] [place] [address] Jul, [facility] [address] [id number] [place] [address] Oct, [facility] [address] [id number] [place] [address] Oct, [facility] [address] [id number] [place] [address] Oct, IMMUNIZATIONS No Known Immunizations SOCIAL HISTORY [...]
--- OUTSIDE RECORDS SUMMARY | 2020-03-19 05:58 | XMS REPORT ---
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 33744004 Problem Chronic kidney disease, unspecified N18.9 Active 089533379 Problem Anemia, unspecified D64.9 Active 227371342 Problem Irritable bowel K58.9 Active 1074 3008 Problem Irritable bowel syndrome with diarrhea K58.0 Active 192120350 Problem Claudication I73.9 Active 8132681 6 Problem Intractable migraine without aura and with status migr ainosus G43.011 Active 544068982 Problem Peritoneal dialysis status Z99.2 Act moody 814018540 Problem Migraine without aura and without status migrain osus, not intractable G43.009 Active 731864661 Problem Other insomnia G47.09 Active 78313 2000 Problem Dysthymia F34.1 Active 59724619 Problem Chronic kidney disease, stage 4 (severe) N18.4 Active 179773885 Problem Migraine with aura and without status migrainosu s, not intractable G43.109 Active 0713885 Problem Autonomic neuropathy G90.9 Active 488121005 Problem Type 1 diabetes mellitus with complications E10.8 Active 057677450 Problem Menorrhagia with regular cycle N92.0 Active 686964100 Problem Other chronic pain G89.29 Active 8 6152141 Problem Lymphedema I89.0 Active 012898255 Problem Essential hypertension I10 Active 08157524 Problem Moderate episode of recurrent major depressive disorder F33.1 Active 044481989 Problem Type 1 diabetes mellitus without complications E10 .9 Active 264490068 Problem Primary insomnia F51.01 Active 397 2004 Problem Migraine G43.909 Active 59345068 Problem Low back pain M54.5 Active 155698 009 Problem Diastolic dysfunction I51.89 Active 4391028 Problem ESRF (end stage renal failure) N18.6 Active 08521644 Problem Restless legs G25.81 Active 818826 08 Problem Hyperthyroidism E05.90 Active 3448 6009 ALLERGIES No Information ENCOUNTERS Encounter Location Date Diagnosis [facility] [id number] [place] [address] Jan, [facility] [address] [facility] [place] [id number] Dec, Caries K02.9 and Dental examination Z01. 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 ; Migraine without aura and without status migrainosus, not intractable G43.009 ; Chronic kidney disease, stage 4 (severe) N18.4 ; Claudication I73.9 ; Peritoneal dialysis status Z99.2 ; Diastolic dysfunction I51.89 ; Primary insomnia F51.01 and Burn T30.0 [facility] [address] [address] Sep, Moderate episode of recurrent major depr essive disorder F33.1 and Primary insomnia F51.01 [facility] [address] [address] Aug, Hyperthyroidism E05.90 [facility] [address] [address] May, Restless legs G25.81 [facility] [address] [address] May, [facility] [address] [address] May, [place] [address] [address] May, Type 1 diabetes mellitus with hypoglycem ia without coma E10.649 ; ESRF (end stage renal failure) N18.6 ; Leg cramps R25.2 ; Restless legs G25.81 and Low back pain M54.5 [facility] [address] [address] Apr, Low back pain M54.5 [facility] [address] [address] Apr, [facility] [address] [address] March, Low back pain M54.5 [place] [address] [address] March, [facility] [address] [address] Feb, Low back pain M54.5 [facility] [address] [address] Jan, Low back pain M54.5 [place] [address] [address] Jan, [facility] [address] [address] Jan, [facility] [address] [address] Jan, [facility] [address] [address] Dec, Type 1 diabetes mellitus with hypoglycem ia without coma E10.649 and Low back pain M54.5 [place] [address] [address] Dec, Low back pain M54.5 [facility] [address] [address] Dec, Diastolic dysfunction I51.89 ; Essential hypertension I10 and Chronic kidney disease, stage 4 (severe) N18.4 [place] [address] [address] 11 Dec, 2018 RUQ abdominal pain R10.11 ; Type 1 diabe camryn mellitus without complications E10.9 ; Therapeutic drug monitoring Z51.81 ; Migraine with aura and without status migrainosus, not intractable G43.109 and Intractable migraine without aura and with status migrainosus G43.011 [place] [address] [address] Nov, Low back pain M54.5 [place] [address] [address] Nov, [place] [address] [address] Nov, Intractable migraine without aura and wi th status migrainosus G43.011 ; Lymphedema I89.0 ; Pain in right shoulder M25.511 ; Other chronic pain G89.29 ; Irritable bowel syndrome with diarrhea K58.0 ; Type 1 diabetes mellitus without complications E10.9 and Essential hypertension I10 [place] [address] [address] Oct, Low back pain M54.5 [place] [address] [address] Oct, [place] [address] [address] Oct, Orthostatic hypotension I95.1 ; Shortnes s of breath R06.02 ; Leg swelling M79.89 ; Type 1 diabetes mellitus without complications E10.9 and Claudication I73.9 [place] [address] [address] Sep, Low back pain M54.5 [place] [address] [address] 02 Sep, 2018 Low back pain M54.5 [place] [address] [address] Aug, [facility] [address] [address] Aug, Migraine without aura and without status migrainosus, not intractable G43.009 [facility] [address] [address] Aug, Low back pain M54.5 [facility] [address] [facility] [id number] [place] [address] Aug, Acute rhinosinusitis J01.90 and Sore throat J02.9 [place] [address] [address] Jul, Low back pain M54.5 [facility] [address] [address] Jul, Migraine without aura and without status migrainosus, not intractable G43.009 [place] [address] [address] Jun, Low back pain M54.5 [place] [address] [address] Jun, [facility] [address] [address] Jun, Orthostatic hypotension I95.1 ; Shortnes s of breath R06.02 ; Type 1 diabetes mellitus without complications E10.9 and Leg swelling M79.89 [facility] [address] [address] Jun, Low back pain M54.5 [place] [address] [address] Jun, [facility] [address] [address] May, Migraine without aura and without status migrainosus, not intractable G43.009 [place] [address] [address] May, Migraine without aura and without status migrainosus, not intractable G43.009 ; Restless legs syndrome G25.81 ; Leg cramps R25.2 ; Chronic kidney disease, unspecified N18.9 ; Postural hypotension I95.1 ; Diarrhea, unspecified type R19.7 and Cough R05 [place] [address] [address] May, [place] [address] [address] May, [place] [address] [address] May, Orthostatic hypotension I95.1 ; Shortnes s of breath R06.02 ; Type 1 diabetes mellitus with complications E10.8 and Leg swelling M79.89 [place] [address] [address] May, [place] [address] [address] May, Low back pain M54.5 [place] [address] [address] Apr, Type 1 diabetes mellitus with hyperglyce sebastian E10.65 [place] [address] [address] Apr, Low back pain M54.5 [place] [address] [address] Apr, [place] [address] [address] Apr, [place] [address] [address] March, [place] [address] [address] March, Low back pain M54.5 [place] [address] [address] March, [facility] [address] [address] Feb, [facility] [address] [address] Feb, Low back pain M54.5 [place] [address] [address] Jan, Restless legs syndrome G25.81 [place] [address] [address] Jan, Low back pain M54.5 [place] [address] [address] Jan, [place] [address] [address] Jan, Type 1 diabetes mellitus without complic ations E10.9 ; Low back pain M54.5 ; Cough R05 ; Diarrhea, unspecified type R19.7 ; Migraine without aura and without status migrainosus, not intractable G43.009 and Uses control Z30.9 [place] [address] [address] Dec, Low back pain M54.5 [place] [address] [address] Dec, [place] [address] [address] Nov, Well woman exam Z01.419 ; Menorrhagia wi th regular cycle N92.0 ; Vaginal dryness N89.8 and Migraine with aura and without status migrainosus, not intractable G43.109 [place] [address] [address] Nov, [place] [address] [address] Nov, Low back pain M54.5 [place] [address] [address] Oct, Low back pain M54.5 [facility] [address] [address] Oct, Migraine without aura and without status migrainosus, not intractable G43.009 [facility] [address] [address] Sep, Low back pain M54.5 [facility] [address] [address] Sep, [facility] [address] [address] Sep, Migraine without aura and without status migrainosus, not intractable G43.009 [place] [address] [address] Sep, Type 1 diabetes mellitus with hypoglycem ia without coma E10.649 ; Anemia D64.9 ; Migraine without aura and without status migrainosus, not intractable G43.009 ; Chronic kidney disease, unspecified N18.9 ; Autonomic neuropathy G90.9 and Postural hypotension I95.1 [place] [address] [address] Sep, Low back pain M54.5 [facility] [address] [address] Aug, Low back pain M54.5 [place] [address] [address] 14 Jul, 2017 [facility] [address] [address] Jul, Low back pain M54.5 [place] [address] [address] Jun, [facility] [address] [address] Jun, Low back pain M54.5 [place] [address] [address] Jun, Migraine without aura and without status migrainosus, not intractable G43.009 [facility] [address] [address] Jun, Type 1 diabetes mellitus with hyperglyce sebastian E10.65 ; Dysthymia F34.1 and Migraine without aura and without status migrainosus, not intractable G43.009 [facility] [address] [address] Jun, [facility] [address] [address] May, Type 1 diabetes mellitus with hyperglyce sebastian E10.65 [facility] [address] [address] May, Low back pain M54.5 [facility] [address] [address] May, Type 1 diabetes mellitus with hyperglyce sebastian E10.65 [facility] [address] [address] Apr, [facility] [address] [address] Apr, Chronic kidney disease, stage 4 (severe) N18.4 [facility] [address] [address] Apr, Low back pain M54.5 [facility] [address] [address] March, [facility] [address] [address] March, Low back pain M54.5 [facility] [address] [address] Feb, [facility] [address] [address] Feb, [facility] [address] [address] Feb, Low back pain M54.5 [place] [address] [address] Feb, Low back pain M54.5 [place] [address] [address] Feb, Migraine without aura and without status migrainosus, not intractable G43.009 [place] [address] [address] Feb, [place] [address] [address] Jan, Low back pain M54.5 [place] [address] [address] Jan, Type 1 diabetes mellitus without complic ations E10.9 ; Anemia D64.9 ; Chronic kidney disease, unspecified N18.9 ; Migraine without aura and without status migrainosus, not intractable G43.009 and Other insomnia G47.09 [place] [address] [address] Jan, [place] [address] [address] Dec, Low back pain M54.5 [place] [address] [address] Dec, [place] [address] [address] Dec, [place] [address] [address] Dec, Shortness of breath R06.02 ; Type 1 diab etes mellitus without complications E10.9 and Leg swelling M79.89 [place] [address] [address] Nov, Low back pain M54.5 [place] [address] [address] Nov, Viral syndrome B34.9 [facility] [address] [address] Oct, Low back pain M54.5 [facility] [address] [address] Oct, [facility] [address] [address] Oct, Low back pain M54.5 [facility] [address] [address] Sep, [facility] [address] [address] Sep, Fatigue, unspecified type R53.83 ; Type 1 diabetes mellitus without complications E10.9 and Anemia D64.9 [place] [address] [address] Sep, Low back pain M54.5 [facility] [address] [address] Sep, Type 1 diabetes mellitus with hyperglyce sebastian E10.65 [place] [address] [address] Aug, Type 1 diabetes mellitus without complic ations E10.9 [facility] [address] [address] Aug, [facility] [address] [address] Aug, [facility] [address] [address] Jul, [facility] [address] [address] 14 Jul, 2016 Low back pain M54.5 [facility] [address] [address] 12 Jul, 2016 Hyperkalemia, diminished renal excretion E87.5 [facility] [address] [address] Jul, Hyperkalemia, diminished renal excretion E87.5 [place] [address] [address] Jun, [facility] [address] [address] Jun, Low back pain M54.5 [place] [address] [address] Jun, Anemia D64.9 ; Autonomic neuropathy G90. 9 and Postural hypotension I95.1 [place] [address] [address] Jun, [place] [address] [address] May, Type 1 diabetes mellitus with complicati ons E10.8 and Anemia D64.9 [place] [address] [address] May, Low back pain M54.5 [place] [address] [address] Apr, [place] [address] [address] Apr, Low back pain M54.5 [place] [address] [address] Apr, [place] [address] [address] Apr, [place] [address] [address] March, Low back pain M54.5 and Other chronic pa in G89.29 [place] [address] [address] March, Type 1 diabetes mellitus without complic ations E10.9 [place] [address] [address] March, [facility] [address] [address] March, [facility] [address] [address] Feb, [facility] [address] [address] Feb, Type 1 diabetes mellitus without complic ations E10.9 [facility] [address] [address] Feb, Trochanteric bursitis, right hip M70.61 [place] [address] [address] Jan, [facility] [address] [address] Jan, [facility] [address] [address] Dec, Type 1 diabetes mellitus with complicati ons E10.8 [facility] [address] [address] Dec, [facility] [address] [address] Dec, Anemia D64.9 ; Autonomic neuropathy G90. 9 and Postural hypotension I95.1 [place] [address] [address] Dec, [facility] [address] [address] Nov, Sore throat J02.9 [facility] [address] [address] Nov, Type 1 diabetes mellitus with complicati ons E10.8 [facility] [address] [address] Nov, Type 1 diabetes mellitus with diabetic n ephropathy E10.21 ; Proteinuria, unspecified R80.9 and Chronic kidney disease, unspecified N18.9 [facility] [id number] [place] [address] Nov, [facility] [address] [address] Nov, Trochanteric bursitis, right hip M70.61 [facility] [address] [address] Nov, [facility] [address] [address] Oct, [facility] [address] [address] Oct, [facility] [address] [address] Oct, [facility] [address] [address] Sep, [facility] [address] [address] Sep, [facility] [address] [address] Sep, Type 2 diabetes mellitus with complicati on E11.8 and Right hip pain M25.551 [facility] [address] [address] Sep, [facility] [address] [address] Aug, [facility] [address] [address] Aug, [facility] [address] [address] Aug, [facility] [address] [address] Aug, Type 1 diabetes mellitus without complic ations E10.9 [facility] [address] [address] Jul, [facility] [id number] [place] [address] Jul, [facility] [address] [address] Jul, [facility] [id number] [place] [address] Jun, [facility] [address] [address] Jun, [facility] [address] [address] Jun, [facility] [address] [address] Jun, [facility] [address] [address] Jun, [facility] [address] [address] Jun, Diabetes mellitus without mention of com plication, type I [juvenile type], not stated as uncontrolled 250.01 [facility] [id number] [place] [address] May, [facility] [address] [address] May, [facility] [address] [address] May, [facility] [address] [address] May, Autonomic neuropathy 337.9 ; Postural hy potension 458.0 and Anemia 285.9 [facility] [id number] [place] [address] May, [facility] [address] [address] Apr, [facility] [id number] [place] [address] Apr, [facility] [address] [place] [address] Apr, [facility] [address] [facility] [id number] [place] [address] Apr, [facility] [address] [id number] [place] [address] Apr, [facility] [address] [id number] [place] [address] March, [facility] [address] [id number] [place] [address] March, [facility] [address] [id number] [place] [address] March, [facility] [address] [id number] [place] [address] March, [facility] [address] [id number] [place] [address] March, [facility] [address] [id number] [place] [address] Feb, [facility] [address] [id number] [place] [address] Feb, [facility] [address] [id number] [place] [address] Feb, [facility] [address] [id number] [place] [address] 30 Jan, 2015 [facility] [address] [id number] [place] [address] Jan, [facility] [address] [id number] [place] [address] 24 Jan, 2015 [facility] [address] [id number] [place] [address] Jan, [facility] [address] [id number] [place] [address] Jan, [facility] [address] [id number] [place] [address] Jan, [facility] [address] [id number] [place] [address] Jan, [facility] [address] [id number] [place] [address] Jan, [facility] [address] [id number] [place] [address] Jan, [facility] [address] [id number] [place] [address] Jan, [facility] [address] [id number] [place] [address] Jan, [facility] [address] [id number] [place] [address] Jan, [facility] [address] [id number] [place] [address] Jan, [facility] [address] [id number] [place] [address] Dec, [facility] [address] [id number] [place] [address] Dec, [facility] [address] [id number] [place] [address] Dec, [facility] [address] [id number] [place] [address] Dec, 2014 [facility] [address] [id number] [place] [address] Dec, [facility] [address] [id number] [place] [address] Dec, 2014 [facility] [address] [id number] [place] [address] Dec, [facility] [address] [id number] [place] [address] Dec, [facility] [address] [id number] [place] [address] Nov, [facility] [address] [id number] [place] [address] Nov, [facility] [address] [id number] [place] [address] Nov, [facility] [address] [id number] [place] [address] Nov, [facility] [address] [id number] [place] [address] Nov, [facility] [address] [id number] [place] [address] Nov, [facility] [address] [id number] [place] [address] Nov, [facility] [address] [id number] [place] [address] Nov, [facility] [address] [id number] [place] [address] Nov, [facility] [address] [id number] [place] [address] Oct, [facility] [address] [id number] [place] [address] Oct, [facility] [address] [id number] [place] [address] Oct, [facility] [address] [id number] [place] [address] Oct, [facility] [address] [id number] [place] [address] Oct, [facility] [address] [id number] [place] [address] Oct, [facility] [address] [id number] [place] [address] Oct, [facility] [address] [id number] [place] [address] Oct, [facility] [address] [id number] [place] [address] Oct, [facility] [address] [id number] [place] [address] Oct, [facility] [address] [id number] [place] [address] Oct, [facility] [address] [id number] [place] [address] Oct, [facility] [address] [id number] [place] [address] Oct, [facility] [address] [id number] [place] [address] Oct, [facility] [address] [id number] [place] [address] Sep, [facility] [address] [id number] [place] [address] Sep, [facility] [id number] [place] [address] Sep, [facility] [address] [id number] [place] [address] Sep, [facility] [address] [id number] [place] [address] Aug, [facility] [address] [id number] [place] [address] Aug, [facility] [address] [id number] [place] [address] Aug, [facility] [address] [id number] [place] [address] Aug, [facility] [address] [id number] [place] [address] Aug, [facility] [id number] [place] [address] Aug, [facility] [address] [id number] [place] [address] Aug, [facility] [address] [id number] [place] [address] Aug, 2013 [facility] [address] [facility] [id number] [place] [address] Aug, [facility] [address] [facility] [id number] [place] [address] Aug, [facility] [address] [id number] [place] [address] 29 Sep, 2013 [facility] [address] [facility] [id number] [place] [address] 29 Sep, 2013 [facility] [address] [facility] [id number] [place] [address] 29 Sep, 2013 [facility] [address] [id number] [place] [address] 29 Jul, 2013 [facility] [address] [id number] [place] [address] 22 Jul, 2013 [facility] [address] [id number] [place] [address] 22 Jul, 2013 [facility] [address] [id number] [place] [address] 19 Jul, 2013 [facility] [address] [id number] [place] [address] 19 Jul, 2013 [facility] [address] [id number] [place] [address] 11 Jul, 2013 [facility] [address] [id number] [place] [address] 11 Jul, 2013 [facility] [address] [facility] [id number] [place] [address] 10 Jul, 2013 [facility] [address] [facility] [id number] [place] [address] 10 Sep, 2013 [facility] [address] [id number] [place] [address] 08 Sep, 2013 [facility] [address] [id number] [place] [address] 08 Sep, 2013 [facility] [address] [id number] [place] [address] Jul, 2013 [facility] [address] [id number] [place] [address] Jul, 2013 [facility] [address] [facility] [id number] [facility] [address] Jul, [facility] [address] [id number] [place] [address] Jul, [facility] [address] [id number] [place] [address] Jun, [facility] [address] [id number] [place] [address] Jun, [facility] [address] [id number] [place] [address] Jun, [facility] [address] [id number] [place] [address] Jun, [facility] [address] [id number] [place] [address] Jun, [facility] [address] [id number] [place] [address] Jun, [facility] [address] [id number] [place] [address] Jun, [facility] [address] [id number] [place] [address] Jun, [facility] [address] [id number] [place] [address] Jun, [facility] [address] [id number] [place] [address] Jun, [facility] [address] [id number] [place] [address] Jun, [facility] [address] [id number] [place] [address] Jun, [facility] [address] [id number] [place] [address] Jun, [facility] [address] [id number] [place] [address] Jun, [facility] [address] [facility] [id number] [place] [address] Jun, [facility] [address] [id number] [place] [address] May, [facility] [address] [id number] [place] [address] May, [facility] [address] [facility] [id number] [place] [address] May, [facility] [address] [id number] [place] [address] May, [facility] [address] [id number] [place] [address] May, [facility] [address] [id number] [place] [address] May, [facility] [address] [id number] [place] [address] May, [facility] [address] [id number] [place] [address] May, [facility] [address] [id number] [place] [address] Apr, [facility] [address] [id number] [place] [address] Apr, [facility] [address] [id number] [place] [address] Apr, [facility] [address] [facility] [id number] [place] [address] Apr, [facility] [address] [id number] [place] [address] Apr, [facility] [address] [id number] [place] [address] Apr, [facility] [address] [id number] [place] [address] Apr, [facility] [address] [facility] [id number] [facility] [address] Apr, [facility] [address] [facility] [id number] [facility] [address] Apr, [facility] [address] [facility] [id number] [place] [address] Apr, [facility] [address] [facility] [id number] [facility] [address] Apr, [facility] [address] [facility] [id number] [facility] [address] Apr, [facility] [address] [facility] [id number] [place] [address] Apr, [facility] [address] [id number] [place] [address] Apr, [facility] [address] [id number] [place] [address] Apr, [facility] [address] [facility] [id number] [place] [address] Apr, [facility] [address] [id number] [place] [address] Apr, [facility] [address] [id number] [place] [address] Apr, [facility] [address] [id number] [place] [address] March, [facility] [address] [facility] [id number] [place] [address] March, [facility] [address] [facility] [id number] [place] [address] March, [facility] [address] [facility] [id number] [place] [address] March, [facility] [address] [id number] [place] [address] March, [facility] [address] [facility] [id number] [facility] [address] March, [facility] [address] [id number] [place] [address] March, [facility] [address] [id number] [place] [address] March, [facility] [address] [id number] [place] [address] March, [facility] [address] [id number] [place] [address] Feb, [facility] [address] [id number] [place] [address] Feb, [facility] [address] [id number] [place] [address] Feb, [facility] [address] [id number] [place] [address] Feb, [facility] [address] [id number] [place] [address] Feb, [facility] [address] [id number] [place] [address] Feb, [facility] [address] [id number] [place] [address] Feb, [facility] [address] [id number] [place] [address] Feb, [facility] [address] [id number] [place] [address] Feb, [facility] [address] [id number] [place] [address] Feb, [facility] [address] [id number] [place] [address] Feb, [facility] [address] [id number] [place] [address] Feb, [facility] [address] [id number] [place] [address] Feb, [facility] [address] [id number] [place] [address] Jan, [facility] [address] [id number] [place] [address] Jan, [facility] [address] [id number] [place] [address] Jan, [facility] [address] [id number] [place] [address] Jan, [facility] [address] [id number] [place] [address] Jan, [facility] [address] [id number] [place] [address] Jan, [facility] [address] [id number] [place] [address] Jan, [facility] [address] [id number] [place] [address] Jan, [facility] [address] [id number] [place] [address] Dec, [facility] [address] [id number] [place] [address] Dec, [facility] [address] [id number] [place] [address] Dec, [facility] [address] [id number] [place] [address] Dec, [facility] [address] [id number] [place] [address] Dec, [facility] [address] [id number] [place] [address] Dec, [facility] [address] [id number] [place] [address] Dec, [facility] [address] [id number] [place] [address] Dec, [facility] [address] [id number] [place] [address] Dec, [facility] [address] [id number] [place] [address] Dec, [facility] [address] [id number] [place] [address] Nov, [facility] [address] [id number] [place] [address] Nov, [facility] [address] [id number] [place] [address] Nov, [facility] [address] [id number] [place] [address] Nov, [facility] [address] [id number] [place] [address] Nov, [facility] [address] [id number] [place] [address] Nov, [facility] [address] [id number] [place] [address] Nov, [facility] [address] [id number] [place] [address] Nov, [facility] [address] [id number] [place] [address] Nov, [facility] [address] [id number] [place] [address] Nov, [facility] [address] [id number] [place] [address] Oct, [facility] [address] [id number] [place] [address] Oct, [facility] [address] [id number] [place] [address] Oct, [facility] [address] [id number] [place] [address] Oct, [facility] [address] [id number] [place] [address] Oct, [facility] [address] [id number] [place] [address] 17 Oct, 2012 [facility] [address] [id number] [place] [address] 16 Oct, 2013 [facility] [address] [id number] [place] [address] 16 Oct, 2013 [facility] [address] [id number] [place] [address] Oct, [facility] [address] [id number] [place] [address] Oct, [facility] [address] [id number] [place] [address] 04 Oct, 2013 [facility] [address] [id number] [place] [address] Oct, [facility] [id number] [place] [address] 04 Oct, 2013 [facility] [address] [id number] [place] [address] Oct, [facility] [address] [id number] [place] [address] Sep, [facility] [address] [id number] [place] [address] 27 Sep, 2013 [facility] [address] [id number] [place] [address] 18 Sep, 2013 [facility] [address] [id number] [place] [address] 18 Sep, 2013 [facility] [address] [id number] [place] [address] 13 Sep, 2013 [facility] [id number] [place] [address] 13 Sep, 2013 [facility] [address] [id number] [place] [address] 31 Aug, 2013 [facility] [address] [id number] [place] [address] 31 Aug, 2012 [facility] [address] [facility] [id number] [place] [address] 17 Aug, 2012 [facility] [address] [facility] [id number] [place] [address] 17 Aug, 2012 [facility] [address] [id number] [place] [address] 10 Aug, 2012 [facility] [address] [id number] [place] [address] 10 Aug, 2012 [facility] [address] [facility] [id number] [place] [address] 07 Aug, 2012 [facility] [address] [id number] [place] [address] 02 Aug, 2012 [facility] [address] [id number] [place] [address] 02 Aug, 2012 [facility] [address] [id number] [place] [address] 25 Sep, 2012 [facility] [address] [id number] [place] [address] 23 Sep, 2012 [facility] [address] [id number] [place] [address] 21 Sep, 2012 [facility] [address] [id number] [place] [address] 20 Sep, 2012 [facility] [address] [id number] [place] [address] 18 Sep, 2012 [facility] [address] [facility] [id number] [place] [address] 17 Sep, 2012 [facility] [address] [facility] [id number] [place] [address] 16 Sep, 2012 [facility] [address] [id number] [place] [address] 11 Sep, 2012 [facility] [address] [id number] [place] [address] 09 Sep, 2012 [facility] [address] [id number] [facility] [place] [address] 09 Jul, 2012 [facility] [address] [id number] [facility] [place] [address] Jul, [facility] [address] [facility] [id number] [place] [address] Jul, [facility] [address] [id number] [place] [address] Jun, [facility] [address] [id number] [place] [address] Jun, [facility] [address] [id number] [place] [address] Jun, [facility] [address] [id number] [place] [address] Jun, [facility] [address] [id number] [place] [address] Jun, [facility] [address] [id number] [place] [address] Jun, [facility] [address] [id number] [place] [address] Jun, [facility] [address] [id number] [place] [address] Jun, [facility] [address] [id number] [place] [address] Jun, [facility] [address] [id number] [place] [address] May, [facility] [address] [id number] [place] [address] May, [facility] [address] [id number] [place] [address] May, [facility] [address] [id number] [place] [address] May, [facility] [address] [id number] [place] [address] May, [facility] [address] [id number] [place] [address] May, [facility] [address] [id number] [place] [address] May, [facility] [address] [id number] [place] [address] March, [facility] [address] [id number] [place] [address] March, [facility] [address] [id number] [place] [address] March, [facility] [address] [id number] [place] [address] Dec, [facility] [address] [id number] [place] [address] Nov, [facility] [address] [id number] [place] [address] Aug, [facility] [address] [id number] [place] [address] Aug, [facility] [address] [id number] [place] [address] Jun, [facility] [address] [id number] [place] [address] Jun, [facility] [address] [id number] [place] [address] Jun, [facility] [address] [id number] [place] [address] Jun, [facility] [address] [id number] [place] [address] May, [facility] [address] [id number] [place] [address] May, [facility] [address] [id number] [place] [address] May, [facility] [address] [id number] [place] [address] May, [facility] [address] [facility] [id number] [place] [address] May, [facility] [address] [facility] [id number] [place] [address] May, [facility] [address] [id number] [place] [address] May, [facility] [address] [id number] [place] [address] Apr, [facility] [address] [facility] [id number] [place] [address] Apr, [facility] [address] [id number] [place] [address] Apr, [facility] [address] [id number] [place] [address] Apr, [facility] [address] [id number] [place] [address] March, [facility] [address] [id number] [place] [address] March, [facility] [address] [id number] [place] [address] March, [facility] [address] [id number] [place] [address] March, [facility] [address] [id number] [place] [address] March, [facility] [address] [facility] [id number] [place] [address] March, [facility] [address] [id number] [place] [address] March, [facility] [address] [id number] [place] [address] March, [facility] [address] [id number] [place] [address] March, [facility] [address] [id number] [place] [address] 04 Feb, 2012 [facility] [address] [id number] [place] [address] Feb, [facility] [address] [id number] [place] [address] 28 Jan, 2012 [facility] [address] [id number] [place] [address] 27 Jan, 2012 [facility] [address] [id number] [place] [address] 16 Jan, 2012 [facility] [address] [id number] [place] [address] 05 Jan, 2012 [facility] [address] [id number] [place] [address] 20 Dec, 2011 [facility] [id number] [place] [address] 16 Dec, 2011 [facility] [id number] [place] [address] 15 Dec, 2011 [facility] [address] [id number] [place] [address] Nov, [facility] [address] [id number] [place] [address] Oct, [facility] [id number] [place] [address] 15 Oct, 2011 [facility] [address] [id number] [place] [address] 15 Oct, 2011 [facility] [address] [id number] [place] [address] 14 Oct, 2011 [facility] [id number] [place] [address] 14 Oct, 2011 [facility] [address] [id number] [place] [address] 12 Oct, 2011 [facility] [id number] [place] [address] Oct, [facility] [id number] [place] [address] Oct, [facility] [id number] [place] [address] Sep, [facility] [id number] [place] [address] Sep, [facility] [id number] [place] [address] Sep, [facility] [id number] [place] [address] Sep, [facility] [address] [address] Sep, [facility] [id number] [place] [address] Sep, [facility] [id number] [place] [address] Sep, [facility] [id number] [place] [address] Sep, [facility] [id number] [place] [address] Sep, [facility] [id number] [place] [address] Aug, [facility] [id number] [place] [address] Jul, [facility] [id number] [place] [address] Oct, [facility] [id number] [place] [address] Oct, [facility] [id number] [place] [address] Oct, IMMUNIZATIONS No Known Immunizations SOCIAL HISTORY [...]
--- OUTSIDE RECORDS SUMMARY | 2020-03-19 05:59 | XMS REPORT ---
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 81631404 Problem Chronic kidney disease, unspecified N18.9 Active 958376122 Problem Anemia, unspecified D64.9 Active 088006517 Problem Irritable bowel K58.9 Active 1074 3008 Problem Irritable bowel syndrome with diarrhea K58.0 Active 947630145 Problem Claudication I73.9 Active 6717153 6 Problem Intractable migraine without aura and with status migr ainosus G43.011 Active 796321794 Problem Peritoneal dialysis status Z99.2 Act moody 836103517 Problem Migraine without aura and without status migrain osus, not intractable G43.009 Active 533203029 Problem Other insomnia G47.09 Active 62418 2000 Problem Dysthymia F34.1 Active 83824901 Problem Chronic kidney disease, stage 4 (severe) N18.4 Active 790275009 Problem Migraine with aura and without status migrainosu s, not intractable G43.109 Active 8933808 Problem Autonomic neuropathy G90.9 Active 469037800 Problem Type 1 diabetes mellitus with complications E10.8 Active 786084991 Problem Menorrhagia with regular cycle N92.0 Active 386783459 Problem Other chronic pain G89.29 Active 8 1795181 Problem Lymphedema I89.0 Active 095457964 Problem Essential hypertension I10 Active 70264645 Problem Moderate episode of recurrent major depressive disorder F33.1 Active 255475212 Problem Type 1 diabetes mellitus without complications E10 .9 Active 264014842 Problem Primary insomnia F51.01 Active 397 2004 Problem Migraine G43.909 Active 67287100 Problem Low back pain M54.5 Active 928629 009 Problem Diastolic dysfunction I51.89 Active 4258437 Problem ESRF (end stage renal failure) N18.6 Active 57552987 Problem Restless legs G25.81 Active 243930 08 Problem Hyperthyroidism E05.90 Active 3448 6009 ALLERGIES No Information ENCOUNTERS Encounter Location Date Diagnosis [place] [id number] [address] Jan, [facility] [address] [id number] Jan, [facility] [address] [id number] Dec, Caries K02.9 and Dental examination Z01. 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 ; Migraine without aura and without status migrainosus, not intractable G43.009 ; Chronic kidney disease, stage 4 (severe) N18.4 ; Claudication I73.9 ; Peritoneal dialysis status Z99.2 ; Diastolic dysfunction I51.89 ; Primary insomnia F51.01 and Burn T30.0 [place] [address] [address] Sep, Moderate episode of recurrent major depr essive disorder F33.1 and Primary insomnia F51.01 [place] [address] [address] Aug, Hyperthyroidism E05.90 [place] [address] [address] May, Restless legs G25.81 [place] [address] [address] May, [place] [address] [address] May, [facility] [address] [address] May, Type 1 diabetes mellitus with hypoglycem ia without coma E10.649 ; ESRF (end stage renal failure) N18.6 ; Leg cramps R25.2 ; Restless legs G25.81 and Low back pain M54.5 [facility] [address] [address] Apr, Low back pain M54.5 [facility] [address] [address] Apr, [facility] [address] [address] March, Low back pain M54.5 [facility] [address] [address] March, [facility] [address] [address] Feb, Low back pain M54.5 [facility] [address] [address] Jan, Low back pain M54.5 [facility] [address] [address] Jan, [facility] [address] [address] Jan, [facility] [address] [address] Jan, [facility] [address] [address] Dec, Type 1 diabetes mellitus with hypoglycem ia without coma E10.649 and Low back pain M54.5 [facility] [address] [address] Dec, Low back pain M54.5 [facility] [address] [address] 13 Dec, 2018 Diastolic dysfunction I51.89 ; Essential hypertension I10 and Chronic kidney disease, stage 4 (severe) N18.4 [place] [address] [address] 11 Dec, 2018 RUQ abdominal pain R10.11 ; Type 1 diabe camryn mellitus without complications E10.9 ; Therapeutic drug monitoring Z51.81 ; Migraine with aura and without status migrainosus, not intractable G43.109 and Intractable migraine without aura and with status migrainosus G43.011 [place] [address] [address] Nov, Low back pain M54.5 [place] [address] [address] Nov, [address] [address] 14 Nov, 2018 Intractable migraine without aura and wi th status migrainosus G43.011 ; Lymphedema I89.0 ; Pain in right shoulder M25.511 ; Other chronic pain G89.29 ; Irritable bowel syndrome with diarrhea K58.0 ; Type 1 diabetes mellitus without complications E10.9 and Essential hypertension I10 [place] [address] [address] Oct, Low back pain M54.[address] [address] Oct, [address] [address] Oct, Orthostatic hypotension I95.1 ; Shortnes s of breath R06.02 ; Leg swelling M79.89 ; Type 1 diabetes mellitus without complications E10.9 and Claudication I73.[address] [address] Sep, Low back pain M54.[address] [address] Sep, Low back pain M54.5 [facility] [address] [address] Aug, [facility] [address] [address] Aug, Migraine without aura and without status migrainosus, not intractable G43.009 [facility] [address] [address] Aug, Low back pain M54.5 [facility] [address] [facility] [id number] [place] [address] Aug, Acute rhinosinusitis J01.90 and Sore throat J02.9 [facility] [address] [address] 28 Jul, 2018 Low back pain M54.5 [facility] [address] [address] Jul, Migraine without aura and without status migrainosus, not intractable G43.009 [facility] [address] [address] Jun, Low back pain M54.5 [facility] [address] [address] Jun, [facility] [address] [address] Jun, Orthostatic hypotension I95.1 ; Shortnes s of breath R06.02 ; Type 1 diabetes mellitus without complications E10.9 and Leg swelling M79.89 [facility] [address] [address] Jun, Low back pain M54.5 [facility] [address] [address] Jun, [facility] [address] [address] May, Migraine without aura and without status migrainosus, not intractable G43.009 [place] [address] [address] May, Migraine without aura and without status migrainosus, not intractable G43.009 ; Restless legs syndrome G25.81 ; Leg cramps R25.2 ; Chronic kidney disease, unspecified N18.9 ; Postural hypotension I95.1 ; Diarrhea, unspecified type R19.7 and Cough R05 [place] [address] [address] May, [place] [address] [address] May, [place] [address] [address] May, Orthostatic hypotension I95.1 ; Shortnes s of breath R06.02 ; Type 1 diabetes mellitus with complications E10.8 and Leg swelling M79.89 [place] [address] [address] May, [place] [address] [address] May, Low back pain M54.5 [place] [address] [address] Apr, Type 1 diabetes mellitus with hyperglyce sebastian E10.65 [place] [address] [address] Apr, Low back pain M54.5 [place] [address] [address] Apr, [place] [address] [address] Apr, [place] [address] [address] March, [place] [address] [address] March, Low back pain M54.5 [place] [address] [address] March, [place] [address] [address] Feb, [place] [address] [address] Feb, Low back pain M54.5 [place] [address] [address] Jan, Restless legs syndrome G25.81 [place] [address] [address] Jan, Low back pain M54.5 [place] [address] [address] Jan, [place] [address] [address] Jan, Type 1 diabetes mellitus without complic ations E10.9 ; Low back pain M54.5 ; Cough R05 ; Diarrhea, unspecified type R19.7 ; Migraine without aura and without status migrainosus, not intractable G43.009 and Uses control Z30.9 [place] [address] [address] Dec, Low back pain M54.5 [place] [address] [address] Dec, [place] [address] [address] Nov, Well woman exam Z01.419 ; Menorrhagia wi th regular cycle N92.0 ; Vaginal dryness N89.8 and Migraine with aura and without status migrainosus, not intractable G43.109 [place] [address] [address] Nov, [place] [address] [address] Nov, Low back pain M54.5 [facility] [address] [address] Oct, Low back pain M54.5 [facility] [address] [address] Oct, Migraine without aura and without status migrainosus, not intractable G43.009 [facility] [address] [address] Sep, Low back pain M54.5 [facility] [address] [address] Sep, [facility] [address] [address] Sep, Migraine without aura and without status migrainosus, not intractable G43.009 [facility] [address] [address] Sep, Type 1 diabetes mellitus with hypoglycem ia without coma E10.649 ; Anemia D64.9 ; Migraine without aura and without status migrainosus, not intractable G43.009 ; Chronic kidney disease, unspecified N18.9 ; Autonomic neuropathy G90.9 and Postural hypotension I95.1 [facility] [address] [address] Sep, Low back pain M54.5 [facility] [address] [address] Aug, Low back pain M54.5 [facility] [address] [address] 14 Jul, 2017 [facility] [address] [address] Jul, Low back pain M54.5 [facility] [address] [address] Jun, [facility] [address] [address] Jun, Low back pain M54.5 [facility] [address] [address] Jun, Migraine without aura and without status migrainosus, not intractable G43.009 [facility] [address] [address] Jun, Type 1 diabetes mellitus with hyperglyce sebastian E10.65 ; Dysthymia F34.1 and Migraine without aura and without status migrainosus, not intractable G43.009 [facility] [address] [address] Jun, [facility] [address] [address] May, Type 1 diabetes mellitus with hyperglyce sebastian E10.65 [facility] [address] [address] May, Low back pain M54.5 [facility] [address] [address] May, Type 1 diabetes mellitus with hyperglyce sebastian E10.65 [facility] [address] [address] Apr, [facility] [address] [address] Apr, Chronic kidney disease, stage 4 (severe) N18.4 [facility] [address] [address] Apr, Low back pain M54.5 [facility] [address] [address] March, [facility] [address] [address] March, Low back pain M54.5 [facility] [address] [address] Feb, [facility] [address] [address] Feb, [facility] [address] [address] Feb, Low back pain M54.5 [facility] [address] [address] Feb, Low back pain M54.5 [facility] [address] [address] Feb, Migraine without aura and without status migrainosus, not intractable G43.009 [facility] [address] [address] Feb, [facility] [address] [address] Jan, Low back pain M54.5 [facility] [address] [address] Jan, Type 1 diabetes mellitus without complic ations E10.9 ; Anemia D64.9 ; Chronic kidney disease, unspecified N18.9 ; Migraine without aura and without status migrainosus, not intractable G43.009 and Other insomnia G47.09 [place] [address] [address] Jan, [facility] [address] [address] Dec, Low back pain M54.5 [facility] [address] [address] Dec, [facility] [address] [address] Dec, [facility] [address] [address] 08 Dec, 2016 Shortness of breath R06.02 ; Type 1 diab etes mellitus without complications E10.9 and Leg swelling M79.89 [facility] [address] [address] Nov, Low back pain M54.5 [facility] [address] [address] Nov, Viral syndrome B34.9 [facility] [address] [address] Oct, Low back pain M54.5 [facility] [address] [address] Oct, [facility] [address] [address] Oct, Low back pain M54.5 [facility] [address] [address] Sep, [place] [address] [address] Sep, Fatigue, unspecified type R53.83 ; Type 1 diabetes mellitus without complications E10.9 and Anemia D64.9 [place] [address] [address] Sep, Low back pain M54.5 [place] [address] [address] Sep, Type 1 diabetes mellitus with hyperglyce sebastian E10.65 [place] [address] [address] Aug, Type 1 diabetes mellitus without complic ations E10.9 [place] [address] [address] Aug, [place] [address] [address] Aug, [place] [address] [address] Jul, [place] [address] [address] 14 Jul, 2016 Low back pain M54.5 [place] [address] [address] Jul, Hyperkalemia, diminished renal excretion E87.5 [facility] [address] [address] Jul, Hyperkalemia, diminished renal excretion E87.5 [facility] [address] [address] Jun, [facility] [address] [address] Jun, Low back pain M54.5 [facility] [address] [address] Jun, Anemia D64.9 ; Autonomic neuropathy G90. 9 and Postural hypotension I95.1 [place] [address] [address] Jun, [place] [address] [address] May, Type 1 diabetes mellitus with complicati ons E10.8 and Anemia D64.9 [place] [address] [address] May, Low back pain M54.5 [place] [address] [address] Apr, [place] [address] [address] Apr, Low back pain M54.5 [place] [address] [address] Apr, [place] [address] [address] Apr, [place] [address] [address] March, Low back pain M54.5 and Other chronic pa in G89.29 [facility] [address] [address] March, Type 1 diabetes mellitus without complic ations E10.9 [facility] [address] [place] [id number] [place] [address] March, [facility] [address] [address] March, [facility] [address] [address] Feb, [facility] [address] [address] Feb, Type 1 diabetes mellitus without complic ations E10.9 [facility] [address] [address] Feb, Trochanteric bursitis, right hip M70.61 [facility] [address] [address] Jan, [facility] [address] [address] Jan, [facility] [address] [address] Dec, Type 1 diabetes mellitus with complicati ons E10.8 [facility] [address] [address] Dec, [facility] [address] [address] Dec, Anemia D64.9 ; Autonomic neuropathy G90. 9 and Postural hypotension I95.1 [facility] [address] [address] Dec, [facility] [address] [address] Nov, Sore throat J02.9 [facility] [address] [address] Nov, Type 1 diabetes mellitus with complicati ons E10.8 [facility] [address] [address] Nov, Type 1 diabetes mellitus with diabetic n ephropathy E10.21 ; Proteinuria, unspecified R80.9 and Chronic kidney disease, unspecified N18.9 [facility] [address] [address] Nov, [facility] [address] [address] Nov, Trochanteric bursitis, right hip M70.61 [facility] [address] [address] Nov, [facility] [address] [address] Oct, [facility] [address] [address] Oct, [facility] [address] [address] Oct, [facility] [address] [address] Sep, [facility] [address] [address] Sep, [facility] [address] [address] Sep, Type 2 diabetes mellitus with complicati on E11.8 and Right hip pain M25.551 [facility] [address] [address] Sep, [facility] [address] [address] Aug, [facility] [address] [address] Aug, [facility] [address] [address] Aug, [facility] [address] [address] Aug, Type 1 diabetes mellitus without complic ations E10.9 [facility] [address] [place] [id number] [place] [address] 16 Jul, 2015 [facility] [address] [address] Jul, [facility] [address] [address] Jul, [facility] [address] [address] Jun, [facility] [address] [address] Jun, [facility] [address] [address] Jun, [facility] [address] [address] Jun, [facility] [address] [address] Jun, [facility] [address] [address] Jun, Diabetes mellitus without mention of com plication, type I [juvenile type], not stated as uncontrolled 250.01 [facility] [address] [place] [id number] [place] [address] May, [facility] [address] [address] May, [facility] [address] [address] May, [facility] [address] [address] May, Autonomic neuropathy 337.9 ; Postural hy potension 458.0 and Anemia 285.9 [facility] [address] [place] [id number] [place] [address] May, [facility] [address] [address] Apr, [facility] [address] [place] [address] Apr, [facility] [address] [facility] [id number] [facility] [address] Apr, [facility] [address] [id number] [place] [address] Apr, [facility] [address] [id number] [place] [address] Apr, [facility] [address] [id number] [place] [address] March, [facility] [address] [id number] [place] [address] March, [facility] [address] [id number] [place] [address] March, [facility] [address] [id number] [place] [address] March, [facility] [address] [id number] [place] [address] March, [facility] [address] [id number] [place] [address] Feb, [facility] [address] [id number] [place] [address] Feb, [facility] [address] [id number] [place] [address] Feb, [facility] [address] [id number] [place] [address] 30 Jan, 2015 [facility] [address] [id number] [place] [address] Jan, [facility] [address] [id number] [place] [address] Jan, [facility] [address] [id number] [place] [address] Jan, [facility] [address] [id number] [place] [address] Jan, [facility] [address] [id number] [place] [address] Jan, [facility] [address] [id number] [place] [address] Jan, [facility] [address] [id number] [place] [address] Jan, [facility] [address] [id number] [place] [address] Jan, [facility] [address] [id number] [place] [address] Jan, [facility] [address] [id number] [place] [address] Jan, [facility] [address] [id number] [place] [address] Jan, [facility] [address] [id number] [place] [address] Jan, [facility] [address] [id number] [place] [address] Dec, 2014 [facility] [address] [id number] [place] [address] Dec, 2014 [facility] [address] [id number] [place] [address] Dec, 2014 [facility] [address] [id number] [place] [address] Dec, 2014 [facility] [address] [id number] [place] [address] Dec, 2014 [facility] [address] [id number] [place] [address] Dec, 2014 [facility] [address] [id number] [place] [address] Dec, 2014 [facility] [address] [id number] [place] [address] Dec, 2014 [facility] [address] [id number] [place] [address] Nov, [facility] [facility] [address] [id number] [place] [address] Nov, [facility] [address] [id number] [place] [address] Nov, [facility] [place] [facility] [address] [facility] [id number] [place] [address] Nov, [facility] [place] [facility] [address] [facility] [id number] [place] [address] Nov, [facility] [place] [facility] [address] [facility] [id number] [place] [address] Nov, [facility] [facility] [address] [id number] [place] [address] Nov, [facility] [place] [facility] [address] [id number] [place] [address] Nov, [facility] [facility] [address] [id number] [place] [address] Nov, [facility] [address] [id number] [place] [address] Oct, [facility] [facility] [address] [id number] [place] [address] Oct, [facility] [address] [id number] [place] [address] Oct, [facility] [address] [id number] [place] [address] Oct, [facility] [address] [id number] [place] [address] Oct, [facility] [address] [id number] [place] [address] Oct, [facility] [address] [id number] [place] [address] Oct, [facility] [address] [id number] [place] [address] Oct, [facility] [address] [id number] [place] [address] Oct, [facility] [address] [id number] [place] [address] Oct, [facility] [address] [id number] [place] [address] Oct, [facility] [address] [id number] [place] [address] Oct, [facility] [id number] [place] [address] Oct, [facility] [address] [id number] [place] [address] Oct, [facility] [address] [id number] [place] [address] Sep, [facility] [id number] [place] [address] Sep, [facility] [id number] [place] [address] Sep, [facility] [id number] [place] [address] Sep, [facility] [id number] [place] [address] Aug, [facility] [id number] [place] [address] Aug, [facility] [id number] [place] [address] Aug, [facility] [id number] [place] [address] Aug, [facility] [id number] [place] [address] Aug, [facility] [id number] [place] [address] Aug, [facility] [id number] [place] [address] Aug, [facility] [address] [facility] [id number] [place] [address] Aug, 2013 [facility] [address] [facility] [id number] [place] [address] Aug, 2013 [facility] [id number] [place] [address] 02 Aug, 2013 [facility] [id number] [place] [address] 29 Sep, 2013 [facility] [address] [facility] [id number] [place] [address] 29 Sep, 2013 [facility] [address] [id number] [place] [address] 29 Jul, 2013 [facility] [id number] [place] [address] 29 Jul, 2013 [facility] [id number] [place] [address] 22 Jul, 2013 [facility] [id number] [place] [address] 22 Sep, 2013 [facility] [id number] [place] [address] 19 Jul, 2013 [facility] [id number] [place] [address] 19 Sep, 2013 [facility] [id number] [place] [address] 11 Jul, 2013 [facility] [id number] [place] [address] 11 Sep, 2013 [facility] [id number] [place] [address] 10 Sep, 2013 [facility] [id number] [place] [address] 10 Jul, 2013 [facility] [id number] [place] [address] 08 Sep, 2013 [facility] [address] [id number] [place] [address] 08 Jul, 2013 [facility] [facility] [address] [id number] [place] [address] 03 Jul, 2013 [facility] [address] [facility] [id number] [facility] [address] 03 Jul, 2013 [facility] [id number] [facility] [place] [address] Jul, 2013 [facility] [address] [facility] [id number] [facility] [place] [address] Jul, 2013 [facility] [address] [facility] [id number] [place] [address] Jun, [facility] [id number] [place] [address] Jun, [facility] [id number] [place] [address] Jun, [facility] [id number] [facility] [place] [address] Jun, [facility] [address] [facility] [id number] [facility] [address] Jun, [facility] [id number] [place] [address] Jun, [facility] [id number] [place] [address] Jun, [facility] [id number] [place] [address] Jun, [facility] [address] [facility] [id number] [place] [address] Jun, [facility] [id number] [place] [address] Jun, [facility] [address] [facility] [id number] [place] [address] Jun, [facility] [id number] [place] [address] Jun, [facility] [address] [id number] [place] [address] Jun, [facility] [address] [facility] [id number] [place] [address] Jun, [facility] [address] [facility] [id number] [place] [address] Jun, [facility] [id number] [place] [address] May, [facility] [address] [facility] [id number] [place] [address] May, [facility] [address] [facility] [id number] [place] [address] May, [facility] [id number] [place] [address] May, [facility] [id number] [place] [address] May, [facility] [id number] [place] [address] May, [facility] [id number] [place] [address] May, [facility] [id number] [place] [address] May, [facility] [id number] [place] [address] Apr, [facility] [id number] [place] [address] Apr, [facility] [address] [facility] [id number] [place] [address] Apr, [facility] [id number] [place] [address] Apr, [facility] [id number] [place] [address] Apr, [facility] [id number] [place] [address] Apr, [facility] [address] [facility] [id number] [place] [address] Apr, [facility] [address] [facility] [id number] [facility] [place] [address] Apr, [facility] [address] [facility] [id number] [place] [address] Apr, [facility] [address] [facility] [id number] [place] [address] Apr, [facility] [address] [facility] [id number] [place] [address] Apr, [facility] [id number] [place] [address] Apr, [facility] [id number] [place] [address] Apr, [facility] [id number] [place] [address] Apr, [facility] [id number] [place] [address] Apr, [facility] [id number] [place] [address] Apr, [facility] [id number] [place] [address] Apr, [facility] [id number] [place] [address] Apr, [facility] [address] [facility] [id number] [place] [address] March, [facility] [id number] [place] [address] March, [facility] [id number] [place] [address] March, [facility] [id number] [place] [address] March, [facility] [id number] [facility] [place] [address] March, [facility] [address] [facility] [id number] [facility] [place] [address] March, [facility] [address] [facility] [id number] [place] [address] March, [facility] [id number] [place] [address] March, [facility] [id number] [place] [address] March, [facility] [address] [facility] [id number] [facility] [place] [address] Feb, [facility] [id number] [place] [address] Feb, [facility] [id number] [place] [address] Feb, [facility] [id number] [place] [address] Feb, [facility] [id number] [facility] [place] [address] Feb, [facility] [id number] [place] [address] Feb, [facility] [id number] [place] [address] Feb, [facility] [id number] [place] [address] Feb, [facility] [id number] [place] [address] Feb, [facility] [id number] [place] [address] Feb, [facility] [id number] [place] [address] Feb, [facility] [id number] [place] [address] Feb, [facility] [id number] [place] [address] Feb, [facility] [id number] [place] [address] Jan, [facility] [id number] [place] [address] Jan, [facility] [id number] [place] [address] Jan, [facility] [id number] [place] [address] Jan, [facility] [id number] [place] [address] Jan, [facility] [id number] [place] [address] Jan, [facility] [id number] [place] [address] Jan, [facility] [id number] [place] [address] Jan, [facility] [id number] [place] [address] Dec, [facility] [id number] [place] [address] Dec, [facility] [id number] [place] [address] Dec, [facility] [id number] [place] [address] Dec, [facility] [id number] [place] [address] Dec, [facility] [id number] [place] [address] Dec, [facility] [id number] [place] [address] Dec, [facility] [address] [id number] [place] [address] Dec, [facility] [id number] [place] [address] Dec, [facility] [address] [id number] [place] [address] Dec, [facility] [address] [id number] [place] [address] Nov, [facility] [id number] [place] [address] Nov, [facility] [address] [id number] [place] [address] Nov, [facility] [address] [id number] [place] [address] Nov, [facility] [id number] [place] [address] Nov, [facility] [address] [id number] [place] [address] Nov, [facility] [address] [id number] [place] [address] Nov, [facility] [id number] [place] [address] Nov, [facility] [address] [id number] [place] [address] Nov, [facility] [id number] [place] [address] Nov, [facility] [address] [id number] [place] [address] Oct, [facility] [address] [id number] [place] [address] Oct, [facility] [address] [facility] [id number] [place] [address] Oct, [facility] [facility] [address] [facility] [id number] [place] [address] Oct, [facility] [facility] [address] [id number] [place] [address] 17 Oct, 2013 [facility] [facility] [address] [facility] [id number] [place] [address] 17 Oct, 2013 [facility] [facility] [address] [id number] [place] [address] 16 Oct, 2013 [facility] [place] [facility] [address] [facility] [id number] [place] [address] 16 Oct, 2013 [facility] [place] [facility] [address] [facility] [id number] [place] [address] Oct, [facility] [place] [facility] [address] [id number] [place] [address] Oct, [facility] [place] [facility] [address] [id number] [place] [address] Oct, [facility] [place] [facility] [address] [id number] [place] [address] 04 Oct, 2013 [facility] [place] [facility] [address] [id number] [place] [address] 04 Oct, 2013 [facility] [place] [facility] [address] [id number] [place] [address] Oct, [facility] [place] [facility] [address] [id number] [place] [address] Sep, [facility] [place] [facility] [address] [id number] [place] [address] 27 Sep, 2013 [facility] [place] [facility] [address] [id number] [place] [address] 18 Sep, 2013 [facility] [place] [facility] [address] [id number] [place] [address] 18 Sep, 2013 [facility] [place] [facility] [id number] [place] [address] Sep, [facility] [place] [facility] [address] [id number] [place] [address] Sep, [facility] [place] [facility] [address] [id number] [place] [address] Aug, [facility] [place] [facility] [address] [facility] [id number] [place] [address] 31 Aug, 2012 [facility] [place] [facility] [address] [facility] [id number] [place] [address] 17 Aug, 2012 [facility] [place] [facility] [address] [id number] [place] [address] 17 Aug, 2012 [facility] [place] [facility] [address] [id number] [place] [address] 10 Aug, 2012 [facility] [place] [facility] [address] [facility] [id number] [place] [address] 10 Aug, 2012 [facility] [place] [facility] [address] [id number] [place] [address] 07 Aug, 2012 [facility] [place] [facility] [address] [id number] [place] [address] 02 Aug, 2012 [facility] [place] [facility] [address] [id number] [place] [address] 02 Aug, 2012 [facility] [place] [facility] [address] [id number] [place] [address] 25 Sep, 2012 [facility] [place] [facility] [address] [id number] [place] [address] 23 Sep, 2012 [facility] [place] [facility] [address] [id number] [place] [address] 21 Sep, 2012 [facility] [place] [facility] [address] [id number] [place] [address] 20 Sep, 2012 [facility] [place] [facility] [address] [id number] [place] [address] 18 Sep, 2012 [facility] [place] [facility] [address] [id number] [place] [address] 17 Sep, 2012 [facility] [place] [facility] [address] [id number] [place] [address] 16 Sep, 2012 [facility] [place] [facility] [address] [id number] [place] [address] 11 Sep, 2012 [facility] [place] [facility] [address] [id number] [place] [address] Jul, 2012 [facility] [place] [facility] [address] [id number] [facility] [address] Jul, 2012 [facility] [place] [facility] [address] [facility] [id number] [facility] [address] Jul, 2012 [facility] [place] [facility] [address] [id number] [facility] [place] [address] Jul, [facility] [place] [facility] [address] [facility] [id number] [facility] [address] Jun, [facility] [place] [facility] [address] [facility] [id number] [facility] [place] [address] Jun, [facility] [place] [facility] [address] [id number] [place] [address] Jun, [facility] [place] [facility] [address] [id number] [place] [address] Jun, [facility] [place] [facility] [address] [id number] [place] [address] Jun, [facility] [place] [facility] [address] [facility] [id number] [place] [address] Jun, [facility] [place] [facility] [address] [id number] [place] [address] Jun, [facility] [place] [facility] [address] [id number] [place] [address] Jun, [facility] [place] [facility] [address] [id number] [place] [address] Jun, [facility] [place] [facility] [address] [facility] [id number] [place] [address] May, [facility] [address] [id number] [place] [address] May, [facility] [address] [facility] [id number] [place] [address] May, [facility] [address] [id number] [place] [address] May, [facility] [address] [id number] [facility] [address] May, [facility] [address] [id number] [place] [address] May, [facility] [address] [id number] [place] [address] May, [facility] [address] [id number] [place] [address] March, [facility] [address] [facility] [id number] [place] [address] March, [facility] [address] [id number] [place] [address] March, [facility] [address] [id number] [place] [address] Dec, [facility] [address] [id number] [place] [address] Nov, [facility] [address] [id number] [place] [address] Aug, [facility] [address] [id number] [place] [address] Aug, [facility] [address] [id number] [place] [address] Jun, [facility] [address] [id number] [place] [address] Jun, [facility] [address] [id number] [place] [address] Jun, [facility] [address] [facility] [id number] [place] [address] Jun, [facility] [address] [id number] [place] [address] May, [facility] [address] [id number] [place] [address] May, [facility] [address] [id number] [place] [address] May, [facility] [address] [id number] [place] [address] May, [facility] [address] [id number] [facility] [address] May, [facility] [address] [id number] [place] [address] May, [facility] [address] [id number] [facility] [place] [address] May, [facility] [address] [facility] [id number] [facility] [address] Apr, [facility] [address] [id number] [place] [address] Apr, [facility] [address] [id number] [place] [address] Apr, [facility] [address] [id number] [place] [address] Apr, [facility] [address] [id number] [place] [address] March, [facility] [address] [id number] [place] [address] March, [facility] [address] [id number] [place] [address] March, [facility] [address] [id number] [place] [address] March, [facility] [address] [id number] [place] [address] March, [facility] [address] [id number] [place] [address] March, [facility] [address] [id number] [place] [address] March, [facility] [address] [id number] [place] [address] March, [facility] [address] [id number] [place] [address] March, [facility] [address] [id number] [facility] [place] [address] Feb, [facility] [address] [id number] [place] [address] Feb, [facility] [address] [id number] [place] [address] Jan, [facility] [address] [id number] [place] [address] 27 Jan, 2012 [facility] [address] [id number] [place] [address] Jan, [facility] [address] [id number] [place] [address] Jan, [facility] [address] [id number] [place] [address] Dec, [facility] [address] [id number] [place] [address] 16 Dec, 2011 [facility] [address] [id number] [place] [address] 15 Dec, 2011 [facility] [address] [id number] [place] [address] Nov, [facility] [address] [id number] [place] [address] Oct, [facility] [address] [id number] [place] [address] 15 Oct, 2011 [facility] [address] [id number] [place] [address] 15 Oct, 2011 [facility] [address] [id number] [place] [address] 14 Oct, 2011 [facility] [address] [id number] [place] [address] 14 Oct, 2011 [facility] [address] [id number] [place] [address] 12 Oct, 2011 [facility] [id number] [place] [address] Oct, [facility] [id number] [place] [address] Oct, [facility] [id number] [place] [address] Sep, [facility] [id number] [place] [address] Sep, [facility] [id number] [place] [address] Sep, [facility] [id number] [place] [address] Sep, [facility] [id number] [place] [address] Sep, [facility] [id number] [place] [address] Sep, [facility] [id number] [place] [address] Sep, [facility] [id number] [place] [address] Sep, [facility] [id number] [place] [address] Sep, [facility] [id number] [place] [address] Aug, [facility] [id number] [place] [address] Jul, [facility] [id number] [place] [address] Oct, [facility] [id number] [place] [address] Oct, [facility] [id number] [place] [address] Oct, IMMUNIZATIONS No Known Immunizations SOCIAL HISTORY [email or web address]
--- OUTSIDE RECORDS SUMMARY | 2020-03-19 05:59 | XMS REPORT ---
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 99270639 Problem Chronic kidney disease, unspecified N18.9 Active 404649476 Problem Anemia, unspecified D64.9 Active 495686488 Problem Irritable bowel K58.9 Active 1074 3008 Problem Irritable bowel syndrome with diarrhea K58.0 Active 605271606 Problem Claudication I73.9 Active 8582965 6 Problem Intractable migraine without aura and with status migr ainosus G43.011 Active 168489969 Problem Peritoneal dialysis status Z99.2 Act moody 701527311 Problem Migraine without aura and without status migrain osus, not intractable G43.009 Active 139257159 Problem Other insomnia G47.09 Active 18901 2000 Problem Dysthymia F34.1 Active 60727575 Problem Chronic kidney disease, stage 4 (severe) N18.4 Active 846298405 Problem Migraine with aura and without status migrainosu s, not intractable G43.109 Active 9281888 Problem Autonomic neuropathy G90.9 Active 300972304 Problem Type 1 diabetes mellitus with complications E10.8 Active 698941645 Problem Menorrhagia with regular cycle N92.0 Active 146574014 Problem Other chronic pain G89.29 Active 8 7612562 Problem Lymphedema I89.0 Active 986204069 Problem Essential hypertension I10 Active 57382807 Problem Moderate episode of recurrent major depressive disorder F33.1 Active 279183620 Problem Type 1 diabetes mellitus without complications E10 .9 Active 654030483 Problem Primary insomnia F51.01 Active 397 2004 Problem Migraine G43.909 Active 79784321 Problem Low back pain M54.5 Active 237328 009 Problem Diastolic dysfunction I51.89 Active 9307584 Problem ESRF (end stage renal failure) N18.6 Active 68577398 Problem Restless legs G25.81 Active 593849 08 Problem Hyperthyroidism E05.90 Active 3448 6009 ALLERGIES No Information ENCOUNTERS Encounter Location Date Diagnosis [place] [id number] [address] Jan, [facility] [address] [id number] Jan, [facility] [address] [id number] Dec, Caries K02.9 and Dental examination Z01. 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 ; Migraine without aura and without status migrainosus, not intractable G43.009 ; Chronic kidney disease, stage 4 (severe) N18.4 ; Claudication I73.9 ; Peritoneal dialysis status Z99.2 ; Diastolic dysfunction I51.89 ; Primary insomnia F51.01 and Burn T30.0 [place] [address] [address] Sep, Moderate episode of recurrent major depr essive disorder F33.1 and Primary insomnia F51.01 [place] [address] [address] Aug, Hyperthyroidism E05.90 [place] [address] [address] May, Restless legs G25.81 [place] [address] [address] May, [place] [address] [address] May, [facility] [address] [address] May, Type 1 diabetes mellitus with hypoglycem ia without coma E10.649 ; ESRF (end stage renal failure) N18.6 ; Leg cramps R25.2 ; Restless legs G25.81 and Low back pain M54.5 [facility] [address] [address] Apr, Low back pain M54.5 [facility] [address] [address] Apr, [facility] [address] [address] March, Low back pain M54.5 [facility] [address] [address] March, [facility] [address] [address] Feb, Low back pain M54.5 [facility] [address] [address] Jan, Low back pain M54.5 [facility] [address] [address] Jan, [facility] [address] [address] Jan, [facility] [address] [address] Jan, [facility] [address] [address] Dec, Type 1 diabetes mellitus with hypoglycem ia without coma E10.649 and Low back pain M54.5 [facility] [address] [address] Dec, Low back pain M54.5 [facility] [address] [address] 13 Dec, 2018 Diastolic dysfunction I51.89 ; Essential hypertension I10 and Chronic kidney disease, stage 4 (severe) N18.4 [place] [address] [address] 11 Dec, 2018 RUQ abdominal pain R10.11 ; Type 1 diabe camryn mellitus without complications E10.9 ; Therapeutic drug monitoring Z51.81 ; Migraine with aura and without status migrainosus, not intractable G43.109 and Intractable migraine without aura and with status migrainosus G43.011 [place] [address] [address] Nov, Low back pain M54.5 [place] [address] [address] Nov, [address] [address] 14 Nov, 2018 Intractable migraine without aura and wi th status migrainosus G43.011 ; Lymphedema I89.0 ; Pain in right shoulder M25.511 ; Other chronic pain G89.29 ; Irritable bowel syndrome with diarrhea K58.0 ; Type 1 diabetes mellitus without complications E10.9 and Essential hypertension I10 [place] [address] [address] Oct, Low back pain M54.[address] [address] Oct, [address] [address] Oct, Orthostatic hypotension I95.1 ; Shortnes s of breath R06.02 ; Leg swelling M79.89 ; Type 1 diabetes mellitus without complications E10.9 and Claudication I73.[address] [address] Sep, Low back pain M54.[address] [address] Sep, Low back pain M54.5 [facility] [address] [address] Aug, [facility] [address] [address] Aug, Migraine without aura and without status migrainosus, not intractable G43.009 [facility] [address] [address] Aug, Low back pain M54.5 [facility] [address] [facility] [id number] [place] [address] Aug, Acute rhinosinusitis J01.90 and Sore throat J02.9 [facility] [address] [address] 28 Jul, 2018 Low back pain M54.5 [facility] [address] [address] Jul, Migraine without aura and without status migrainosus, not intractable G43.009 [facility] [address] [address] Jun, Low back pain M54.5 [facility] [address] [address] Jun, [facility] [address] [address] Jun, Orthostatic hypotension I95.1 ; Shortnes s of breath R06.02 ; Type 1 diabetes mellitus without complications E10.9 and Leg swelling M79.89 [facility] [address] [address] Jun, Low back pain M54.5 [facility] [address] [address] Jun, [facility] [address] [address] May, Migraine without aura and without status migrainosus, not intractable G43.009 [place] [address] [address] May, Migraine without aura and without status migrainosus, not intractable G43.009 ; Restless legs syndrome G25.81 ; Leg cramps R25.2 ; Chronic kidney disease, unspecified N18.9 ; Postural hypotension I95.1 ; Diarrhea, unspecified type R19.7 and Cough R05 [place] [address] [address] May, [place] [address] [address] May, [place] [address] [address] May, Orthostatic hypotension I95.1 ; Shortnes s of breath R06.02 ; Type 1 diabetes mellitus with complications E10.8 and Leg swelling M79.89 [place] [address] [address] May, [place] [address] [address] May, Low back pain M54.5 [place] [address] [address] Apr, Type 1 diabetes mellitus with hyperglyce sebastian E10.65 [place] [address] [address] Apr, Low back pain M54.5 [place] [address] [address] Apr, [place] [address] [address] Apr, [place] [address] [address] March, [place] [address] [address] March, Low back pain M54.5 [place] [address] [address] March, [place] [address] [address] Feb, [place] [address] [address] Feb, Low back pain M54.5 [place] [address] [address] Jan, Restless legs syndrome G25.81 [place] [address] [address] Jan, Low back pain M54.5 [place] [address] [address] Jan, [place] [address] [address] Jan, Type 1 diabetes mellitus without complic ations E10.9 ; Low back pain M54.5 ; Cough R05 ; Diarrhea, unspecified type R19.7 ; Migraine without aura and without status migrainosus, not intractable G43.009 and Uses control Z30.9 [place] [address] [address] Dec, Low back pain M54.5 [place] [address] [address] Dec, [place] [address] [address] Nov, Well woman exam Z01.419 ; Menorrhagia wi th regular cycle N92.0 ; Vaginal dryness N89.8 and Migraine with aura and without status migrainosus, not intractable G43.109 [place] [address] [address] Nov, [place] [address] [address] Nov, Low back pain M54.5 [facility] [address] [address] Oct, Low back pain M54.5 [facility] [address] [address] Oct, Migraine without aura and without status migrainosus, not intractable G43.009 [facility] [address] [address] Sep, Low back pain M54.5 [facility] [address] [address] Sep, [facility] [address] [address] Sep, Migraine without aura and without status migrainosus, not intractable G43.009 [facility] [address] [address] Sep, Type 1 diabetes mellitus with hypoglycem ia without coma E10.649 ; Anemia D64.9 ; Migraine without aura and without status migrainosus, not intractable G43.009 ; Chronic kidney disease, unspecified N18.9 ; Autonomic neuropathy G90.9 and Postural hypotension I95.1 [facility] [address] [address] Sep, Low back pain M54.5 [facility] [address] [address] Aug, Low back pain M54.5 [facility] [address] [address] 14 Jul, 2017 [facility] [address] [address] Jul, Low back pain M54.5 [facility] [address] [address] Jun, [facility] [address] [address] Jun, Low back pain M54.5 [facility] [address] [address] Jun, Migraine without aura and without status migrainosus, not intractable G43.009 [facility] [address] [address] Jun, Type 1 diabetes mellitus with hyperglyce sebastian E10.65 ; Dysthymia F34.1 and Migraine without aura and without status migrainosus, not intractable G43.009 [facility] [address] [address] Jun, [facility] [address] [address] May, Type 1 diabetes mellitus with hyperglyce sebastian E10.65 [facility] [address] [address] May, Low back pain M54.5 [facility] [address] [address] May, Type 1 diabetes mellitus with hyperglyce sebastian E10.65 [facility] [address] [address] Apr, [facility] [address] [address] Apr, Chronic kidney disease, stage 4 (severe) N18.4 [facility] [address] [address] Apr, Low back pain M54.5 [facility] [address] [address] March, [facility] [address] [address] March, Low back pain M54.5 [facility] [address] [address] Feb, [facility] [address] [address] Feb, [facility] [address] [address] Feb, Low back pain M54.5 [facility] [address] [address] Feb, Low back pain M54.5 [facility] [address] [address] Feb, Migraine without aura and without status migrainosus, not intractable G43.009 [facility] [address] [address] Feb, [facility] [address] [address] Jan, Low back pain M54.5 [facility] [address] [address] Jan, Type 1 diabetes mellitus without complic ations E10.9 ; Anemia D64.9 ; Chronic kidney disease, unspecified N18.9 ; Migraine without aura and without status migrainosus, not intractable G43.009 and Other insomnia G47.09 [place] [address] [address] Jan, [facility] [address] [address] Dec, Low back pain M54.5 [facility] [address] [address] Dec, [facility] [address] [address] Dec, [facility] [address] [address] 08 Dec, 2016 Shortness of breath R06.02 ; Type 1 diab etes mellitus without complications E10.9 and Leg swelling M79.89 [facility] [address] [address] Nov, Low back pain M54.5 [facility] [address] [address] Nov, Viral syndrome B34.9 [facility] [address] [address] Oct, Low back pain M54.5 [facility] [address] [address] Oct, [facility] [address] [address] Oct, Low back pain M54.5 [facility] [address] [address] Sep, [place] [address] [address] Sep, Fatigue, unspecified type R53.83 ; Type 1 diabetes mellitus without complications E10.9 and Anemia D64.9 [place] [address] [address] Sep, Low back pain M54.5 [place] [address] [address] Sep, Type 1 diabetes mellitus with hyperglyce sebastian E10.65 [place] [address] [address] Aug, Type 1 diabetes mellitus without complic ations E10.9 [place] [address] [address] Aug, [place] [address] [address] Aug, [place] [address] [address] Jul, [place] [address] [address] 14 Jul, 2016 Low back pain M54.5 [place] [address] [address] Jul, Hyperkalemia, diminished renal excretion E87.5 [facility] [address] [address] Jul, Hyperkalemia, diminished renal excretion E87.5 [facility] [address] [address] Jun, [facility] [address] [address] Jun, Low back pain M54.5 [facility] [address] [address] Jun, Anemia D64.9 ; Autonomic neuropathy G90. 9 and Postural hypotension I95.1 [place] [address] [address] Jun, [place] [address] [address] May, Type 1 diabetes mellitus with complicati ons E10.8 and Anemia D64.9 [place] [address] [address] May, Low back pain M54.5 [place] [address] [address] Apr, [place] [address] [address] Apr, Low back pain M54.5 [place] [address] [address] Apr, [place] [address] [address] Apr, [place] [address] [address] March, Low back pain M54.5 and Other chronic pa in G89.29 [facility] [address] [address] March, Type 1 diabetes mellitus without complic ations E10.9 [facility] [address] [place] [id number] [place] [address] March, [facility] [address] [address] March, [facility] [address] [address] Feb, [facility] [address] [address] Feb, Type 1 diabetes mellitus without complic ations E10.9 [facility] [address] [address] Feb, Trochanteric bursitis, right hip M70.61 [facility] [address] [address] Jan, [facility] [address] [address] Jan, [facility] [address] [address] Dec, Type 1 diabetes mellitus with complicati ons E10.8 [facility] [address] [address] Dec, [facility] [address] [address] Dec, Anemia D64.9 ; Autonomic neuropathy G90. 9 and Postural hypotension I95.1 [facility] [address] [address] Dec, [facility] [address] [address] Nov, Sore throat J02.9 [facility] [address] [address] Nov, Type 1 diabetes mellitus with complicati ons E10.8 [facility] [address] [address] Nov, Type 1 diabetes mellitus with diabetic n ephropathy E10.21 ; Proteinuria, unspecified R80.9 and Chronic kidney disease, unspecified N18.9 [facility] [address] [address] Nov, [facility] [address] [address] Nov, Trochanteric bursitis, right hip M70.61 [facility] [address] [address] Nov, [facility] [address] [address] Oct, [facility] [address] [address] Oct, [facility] [address] [address] Oct, [facility] [address] [address] Sep, [facility] [address] [address] Sep, [facility] [address] [address] Sep, Type 2 diabetes mellitus with complicati on E11.8 and Right hip pain M25.551 [facility] [address] [address] Sep, [facility] [address] [address] Aug, [facility] [address] [address] Aug, [facility] [address] [address] Aug, [facility] [address] [address] Aug, Type 1 diabetes mellitus without complic ations E10.9 [facility] [address] [place] [id number] [place] [address] 16 Jul, 2015 [facility] [address] [address] Jul, [facility] [address] [address] Jul, [facility] [address] [address] Jun, [facility] [address] [address] Jun, [facility] [address] [address] Jun, [facility] [address] [address] Jun, [facility] [address] [address] Jun, [facility] [address] [address] Jun, Diabetes mellitus without mention of com plication, type I [juvenile type], not stated as uncontrolled 250.01 [facility] [address] [place] [id number] [place] [address] May, [facility] [address] [address] May, [facility] [address] [address] May, [facility] [address] [address] May, Autonomic neuropathy 337.9 ; Postural hy potension 458.0 and Anemia 285.9 [facility] [address] [place] [id number] [place] [address] May, [facility] [address] [address] Apr, [facility] [address] [place] [address] Apr, [facility] [address] [facility] [id number] [facility] [place] [address] Apr, [facility] [address] [id number] [place] [address] Apr, [facility] [address] [id number] [place] [address] Apr, [facility] [address] [id number] [place] [address] March, [facility] [address] [id number] [place] [address] March, [facility] [address] [id number] [place] [address] March, [facility] [address] [id number] [place] [address] March, [facility] [address] [id number] [place] [address] March, [facility] [address] [id number] [place] [address] Feb, [facility] [address] [id number] [place] [address] Feb, [facility] [address] [id number] [place] [address] Feb, [facility] [address] [id number] [place] [address] 30 Jan, 2015 [facility] [address] [id number] [place] [address] Jan, [facility] [address] [id number] [place] [address] Jan, [facility] [address] [id number] [place] [address] Jan, [facility] [address] [id number] [place] [address] Jan, [facility] [address] [id number] [place] [address] Jan, [facility] [address] [id number] [place] [address] Jan, [facility] [address] [id number] [place] [address] Jan, [facility] [address] [id number] [place] [address] Jan, [facility] [address] [id number] [place] [address] Jan, [facility] [address] [id number] [place] [address] Jan, [facility] [address] [id number] [place] [address] Jan, [facility] [address] [id number] [place] [address] Jan, [facility] [address] [id number] [place] [address] Dec, 2014 [facility] [address] [id number] [place] [address] Dec, 2014 [facility] [address] [id number] [place] [address] Dec, 2014 [facility] [address] [id number] [place] [address] Dec, 2014 [facility] [address] [id number] [place] [address] Dec, 2014 [facility] [address] [id number] [place] [address] Dec, 2014 [facility] [address] [id number] [place] [address] Dec, 2014 [facility] [address] [id number] [place] [address] Dec, 2014 [facility] [address] [id number] [place] [address] Nov, [facility] [address] [id number] [place] [address] Nov, [facility] [address] [id number] [place] [address] Nov, [facility] [address] [id number] [place] [address] Nov, [facility] [address] [id number] [place] [address] Nov, [facility] [address] [id number] [place] [address] Nov, [facility] [address] [id number] [place] [address] Nov, [facility] [address] [id number] [place] [address] Nov, [facility] [address] [id number] [place] [address] Nov, [facility] [address] [id number] [place] [address] Oct, [facility] [address] [id number] [place] [address] Oct, [facility] [address] [id number] [place] [address] Oct, [facility] [place] [facility] [id number] [place] [address] Oct, [facility] [place] [facility] [id number] [place] [address] Oct, [facility] [place] [facility] [id number] [place] [address] Oct, [facility] [place] [facility] [id number] [place] [address] Oct, [facility] [place] [facility] [id number] [place] [address] Oct, [facility] [place] [facility] [id number] [place] [address] Oct, [facility] [place] [facility] [id number] [place] [address] Oct, [facility] [place] [facility] [id number] [place] [address] Oct, [facility] [place] [facility] [id number] [place] [address] Oct, [facility] [place] [facility] [id number] [place] [address] Oct, [facility] [place] [facility] [id number] [place] [address] Oct, [facility] [place] [facility] [id number] [place] [address] Sep, [facility] [place] [facility] [id number] [place] [address] Sep, [facility] [place] [facility] [id number] [place] [address] Sep, [facility] [place] [facility] [id number] [place] [address] Sep, [facility] [place] [facility] [id number] [place] [address] Aug, [facility] [place] [facility] [id number] [place] [address] Aug, [facility] [place] [facility] [id number] [place] [address] Aug, [facility] [place] [facility] [id number] [place] [address] Aug, [facility] [place] [facility] [id number] [place] [address] Aug, [facility] [place] [facility] [id number] [place] [address] Aug, [facility] [place] [facility] [id number] [place] [address] Aug, [facility] [place] [facility] [address] [facility] [id number] [place] [address] Aug, 2013 [facility] [place] [facility] [address] [facility] [id number] [place] [address] Aug, 2013 [facility] [place] [facility] [id number] [place] [address] 02 Aug, 2013 [facility] [place] [facility] [id number] [place] [address] 29 Sep, 2013 [facility] [place] [facility] [address] [facility] [id number] [place] [address] 29 Sep, 2013 [facility] [place] [facility] [id number] [place] [address] 29 Jul, 2013 [facility] [place] [facility] [id number] [place] [address] 29 Jul, 2013 [facility] [place] [facility] [id number] [place] [address] 22 Jul, 2013 [facility] [place] [facility] [id number] [place] [address] 22 Sep, 2013 [facility] [place] [facility] [id number] [place] [address] 19 Jul, 2013 [facility] [place] [facility] [id number] [place] [address] 19 Sep, 2013 [facility] [place] [facility] [id number] [place] [address] 11 Jul, 2013 [facility] [place] [facility] [id number] [place] [address] 11 Sep, 2013 [facility] [place] [facility] [id number] [place] [address] 10 Sep, 2013 [facility] [place] [facility] [id number] [place] [address] 10 Jul, 2013 [facility] [place] [facility] [id number] [place] [address] 08 Sep, 2013 [facility] [place] [facility] [address] [id number] [place] [address] 08 Jul, 2013 [facility] [place] [facility] [address] [id number] [place] [address] 03 Jul, 2013 [facility] [place] [facility] [address] [facility] [id number] [facility] [place] [address] 03 Jul, 2013 [facility] [place] [facility] [id number] [facility] [address] Jul, 2013 [facility] [place] [facility] [address] [facility] [id number] [facility] [place] [address] Jul, 2013 [facility] [place] [facility] [address] [facility] [id number] [place] [address] Jun, [facility] [place] [facility] [id number] [place] [address] Jun, [facility] [place] [facility] [id number] [place] [address] Jun, [facility] [place] [facility] [id number] [facility] [place] [address] Jun, [facility] [place] [facility] [address] [facility] [id number] [facility] [place] [address] Jun, [facility] [place] [facility] [id number] [place] [address] Jun, [facility] [place] [facility] [id number] [place] [address] Jun, [facility] [place] [facility] [id number] [place] [address] Jun, [facility] [place] [facility] [address] [facility] [id number] [place] [address] Jun, [facility] [place] [facility] [id number] [place] [address] Jun, [facility] [place] [facility] [address] [facility] [id number] [place] [address] Jun, [facility] [place] [facility] [id number] [place] [address] Jun, [facility] [place] [facility] [address] [id number] [place] [address] Jun, [facility] [place] [facility] [address] [facility] [id number] [place] [address] Jun, [facility] [place] [facility] [address] [facility] [id number] [place] [address] Jun, [facility] [place] [facility] [id number] [place] [address] May, [facility] [place] [facility] [address] [facility] [id number] [place] [address] May, [facility] [place] [facility] [address] [facility] [id number] [place] [address] May, [facility] [place] [facility] [id number] [place] [address] May, [facility] [place] [facility] [id number] [place] [address] May, [facility] [place] [facility] [id number] [place] [address] May, [facility] [place] [facility] [id number] [place] [address] May, [facility] [place] [facility] [id number] [place] [address] May, [facility] [place] [facility] [id number] [place] [address] Apr, [facility] [place] [facility] [id number] [place] [address] Apr, [facility] [place] [facility] [address] [facility] [id number] [place] [address] Apr, [facility] [place] [facility] [id number] [place] [address] Apr, [facility] [place] [facility] [id number] [place] [address] Apr, [facility] [place] [facility] [id number] [place] [address] Apr, [facility] [place] [facility] [address] [facility] [id number] [place] [address] Apr, [facility] [place] [facility] [address] [facility] [id number] [facility] [place] [address] Apr, [facility] [place] [facility] [address] [facility] [id number] [place] [address] Apr, [facility] [place] [facility] [address] [facility] [id number] [place] [address] Apr, [facility] [place] [facility] [address] [facility] [id number] [place] [address] Apr, [facility] [place] [facility] [id number] [place] [address] Apr, [facility] [place] [facility] [id number] [place] [address] Apr, [facility] [place] [facility] [id number] [place] [address] Apr, [facility] [place] [facility] [id number] [place] [address] Apr, [facility] [place] [facility] [id number] [place] [address] Apr, [facility] [place] [facility] [id number] [place] [address] Apr, [facility] [place] [facility] [id number] [place] [address] Apr, [facility] [place] [facility] [address] [facility] [id number] [place] [address] March, [facility] [place] [facility] [id number] [place] [address] March, [facility] [place] [facility] [id number] [place] [address] March, [facility] [place] [facility] [id number] [place] [address] March, [facility] [place] [facility] [id number] [facility] [place] [address] March, [facility] [place] [facility] [address] [facility] [id number] [facility] [place] [address] March, [facility] [place] [facility] [address] [facility] [id number] [place] [address] March, [facility] [place] [facility] [id number] [place] [address] March, [facility] [place] [facility] [id number] [place] [address] March, [facility] [place] [facility] [address] [facility] [id number] [facility] [place] [address] Feb, [facility] [place] [facility] [id number] [place] [address] Feb, [facility] [place] [facility] [id number] [place] [address] Feb, [facility] [place] [facility] [id number] [place] [address] Feb, [facility] [place] [facility] [id number] [facility] [place] [address] Feb, [facility] [place] [facility] [id number] [place] [address] Feb, [facility] [place] [facility] [id number] [place] [address] Feb, [facility] [place] [facility] [id number] [place] [address] Feb, [facility] [place] [facility] [id number] [place] [address] Feb, [facility] [place] [facility] [id number] [place] [address] Feb, [facility] [place] [facility] [id number] [place] [address] Feb, [facility] [place] [facility] [id number] [place] [address] Feb, [facility] [place] [facility] [id number] [place] [address] Feb, [facility] [place] [facility] [id number] [place] [address] Jan, [facility] [place] [facility] [id number] [place] [address] Jan, [facility] [place] [facility] [id number] [place] [address] Jan, [facility] [place] [facility] [id number] [place] [address] Jan, [facility] [place] [facility] [id number] [place] [address] Jan, [facility] [place] [facility] [id number] [place] [address] Jan, [facility] [place] [facility] [id number] [place] [address] Jan, [facility] [place] [facility] [id number] [place] [address] Jan, [facility] [place] [facility] [id number] [place] [address] Dec, [facility] [place] [facility] [id number] [place] [address] Dec, [facility] [place] [facility] [id number] [place] [address] Dec, [facility] [place] [facility] [id number] [place] [address] Dec, [facility] [place] [facility] [id number] [place] [address] Dec, [facility] [place] [facility] [id number] [place] [address] Dec, [facility] [place] [facility] [id number] [place] [address] Dec, [facility] [place] [facility] [id number] [place] [address] Dec, [facility] [place] [facility] [id number] [place] [address] Dec, [facility] [place] [facility] [id number] [place] [address] Dec, [facility] [place] [facility] [id number] [place] [address] Nov, [facility] [place] [facility] [id number] [place] [address] Nov, [facility] [place] [facility] [id number] [place] [address] Nov, [facility] [place] [facility] [id number] [place] [address] Nov, [facility] [place] [facility] [id number] [place] [address] Nov, [facility] [place] [facility] [id number] [place] [address] Nov, [facility] [place] [facility] [id number] [place] [address] Nov, [facility] [place] [facility] [id number] [place] [address] Nov, [facility] [place] [facility] [id number] [place] [address] Nov, [facility] [place] [facility] [id number] [place] [address] Nov, [facility] [place] [facility] [id number] [place] [address] Oct, [facility] [place] [facility] [id number] [place] [address] Oct, [facility] [place] [facility] [id number] [place] [address] Oct, [facility] [place] [facility] [id number] [place] [address] Oct, [facility] [place] [facility] [id number] [place] [address] 17 Oct, 2013 [facility] [place] [facility] [id number] [place] [address] 17 Oct, 2013 [facility] [place] [facility] [id number] [place] [address] 16 Oct, 2013 [facility] [place] [facility] [id number] [place] [address] 16 Oct, 2013 [facility] [place] [facility] [id number] [place] [address] Oct, [facility] [place] [facility] [id number] [place] [address] Oct, [facility] [place] [facility] [id number] [place] [address] Oct, [facility] [place] [facility] [id number] [place] [address] 04 Oct, 2013 [facility] [place] [facility] [id number] [place] [address] 04 Oct, 2013 [facility] [place] [facility] [id number] [place] [address] Oct, [facility] [place] [facility] [id number] [place] [address] Sep, [facility] [place] [facility] [id number] [place] [address] 27 Sep, 2013 [facility] [place] [facility] [id number] [place] [address] 18 Sep, 2013 [facility] [place] [facility] [id number] [place] [address] 18 Sep, 2013 [facility] [place] [facility] [address] [id number] [place] [address] Sep, [facility] [place] [facility] [id number] [place] [address] Sep, [facility] [place] [facility] [id number] [place] [address] Aug, [facility] [place] [facility] [address] [facility] [id number] [place] [address] 31 Aug, 2012 [facility] [place] [facility] [address] [facility] [id number] [place] [address] 17 Aug, 2012 [facility] [place] [facility] [id number] [place] [address] 17 Aug, 2012 [facility] [place] [facility] [id number] [place] [address] 10 Aug, 2012 [facility] [place] [facility] [address] [facility] [id number] [place] [address] 10 Aug, 2012 [facility] [place] [facility] [id number] [place] [address] 07 Aug, 2012 [facility] [place] [facility] [id number] [place] [address] 02 Aug, 2012 [facility] [place] [facility] [id number] [place] [address] 02 Aug, 2012 [facility] [place] [facility] [id number] [place] [address] 25 Sep, 2012 [facility] [place] [facility] [id number] [place] [address] 23 Sep, 2012 [facility] [place] [facility] [id number] [place] [address] 21 Sep, 2012 [facility] [place] [facility] [id number] [place] [address] 20 Sep, 2012 [facility] [place] [facility] [id number] [place] [address] 18 Sep, 2012 [facility] [place] [facility] [id number] [place] [address] 17 Sep, 2012 [facility] [place] [facility] [id number] [place] [address] 16 Sep, 2012 [facility] [place] [facility] [id number] [place] [address] 11 Sep, 2012 [facility] [place] [facility] [address] [id number] [place] [address] Jul, 2012 [facility] [place] [facility] [address] [id number] [facility] [place] [address] Jul, 2012 [facility] [place] [facility] [address] [facility] [id number] [facility] [place] [address] Jul, 2012 [facility] [place] [facility] [id number] [facility] [place] [address] Jul, [facility] [place] [facility] [address] [facility] [id number] [facility] [place] [address] Jun, [facility] [place] [facility] [address] [facility] [id number] [facility] [place] [address] Jun, [facility] [place] [facility] [id number] [place] [address] Jun, [facility] [place] [facility] [id number] [place] [address] Jun, [facility] [place] [facility] [id number] [place] [address] Jun, [facility] [place] [facility] [address] [facility] [id number] [place] [address] Jun, [facility] [place] [facility] [id number] [place] [address] Jun, [facility] [place] [facility] [id number] [place] [address] Jun, [facility] [place] [facility] [id number] [place] [address] Jun, [facility] [place] [facility] [address] [facility] [id number] [place] [address] May, [facility] [place] [facility] [id number] [place] [address] May, [facility] [place] [facility] [address] [facility] [id number] [place] [address] May, [facility] [place] [facility] [id number] [place] [address] May, [facility] [address] [id number] [facility] [place] [address] May, [facility] [id number] [place] [address] May, [facility] [id number] [place] [address] May, [facility] [id number] [place] [address] March, [facility] [address] [facility] [id number] [place] [address] March, [facility] [id number] [place] [address] March, [facility] [id number] [place] [address] Dec, [facility] [id number] [place] [address] Nov, [facility] [id number] [place] [address] Aug, [facility] [id number] [place] [address] Aug, [facility] [id number] [place] [address] Jun, [facility] [id number] [place] [address] Jun, [facility] [id number] [place] [address] Jun, [facility] [address] [facility] [id number] [place] [address] Jun, [facility] [id number] [place] [address] May, [facility] [id number] [place] [address] May, [facility] [id number] [place] [address] May, [facility] [address] [id number] [place] [address] May, [facility] [id number] [facility] [place] [address] May, [facility] [id number] [place] [address] May, [facility] [id number] [facility] [place] [address] May, [facility] [address] [facility] [id number] [facility] [place] [address] Apr, [facility] [id number] [place] [address] Apr, [facility] [id number] [place] [address] Apr, [facility] [id number] [place] [address] Apr, [facility] [id number] [place] [address] March, [facility] [id number] [place] [address] March, [facility] [id number] [place] [address] March, [facility] [id number] [place] [address] March, [facility] [id number] [place] [address] March, [facility] [id number] [place] [address] March, [facility] [id number] [place] [address] March, [facility] [id number] [place] [address] March, [facility] [id number] [place] [address] March, [facility] [id number] [facility] [place] [address] Feb, [facility] [id number] [place] [address] Feb, [facility] [id number] [place] [address] Jan, [facility] [id number] [place] [address] 27 Jan, 2012 [facility] [id number] [place] [address] Jan, [facility] [id number] [place] [address] Jan, [facility] [id number] [place] [address] Dec, [facility] [id number] [place] [address] 16 Dec, 2011 [facility] [id number] [place] [address] 15 Dec, 2011 [facility] [id number] [place] [address] Nov, [facility] [id number] [place] [address] Oct, [facility] [id number] [place] [address] 15 Oct, 2011 [facility] [id number] [place] [address] 15 Oct, 2011 [facility] [id number] [place] [address] 14 Oct, 2011 [facility] [id number] [place] [address] 14 Oct, 2011 [facility] [id number] [place] [address] 12 Oct, 2011 [facility] [id number] [place] [address] Oct, [facility] [id number] [place] [address] Oct, [facility] [id number] [place] [address] Sep, [facility] [id number] [place] [address] Sep, [facility] [id number] [place] [address] Sep, [facility] [id number] [place] [address] Sep, [facility] [id number] [place] [address] Sep, [facility] [id number] [place] [address] Sep, [facility] [id number] [place] [address] Sep, [facility] [id number] [place] [address] Sep, [facility] [address] [id number] [place] [address] Sep, [facility] [address] [id number] [place] [address] Aug, [facility] [address] [id number] [place] [address] Jul, [facility] [address] [id number] [place] [address] Oct, [facility] [address] [id number] [place] [address] Oct, [facility] [address] [id number] [place] [address] Oct, IMMUNIZATIONS No Known Immunizations SOCIAL HISTORY [...]
--- OUTSIDE RECORDS SUMMARY | 2020-03-19 06:00 | XMS REPORT ---
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 80214909 Problem Chronic kidney disease, unspecified N18.9 Active 392629137 Problem Anemia, unspecified D64.9 Active 605049883 Problem Irritable bowel K58.9 Active 1074 3008 Problem Irritable bowel syndrome with diarrhea K58.0 Active 722804860 Problem Claudication I73.9 Active 4417705 6 Problem Intractable migraine without aura and with status migr ainosus G43.011 Active 632436270 Problem Peritoneal dialysis status Z99.2 Act moody 231515187 Problem Migraine without aura and without status migrain osus, not intractable G43.009 Active 842364989 Problem Other insomnia G47.09 Active 54243 2000 Problem Dysthymia F34.1 Active 25969503 Problem Chronic kidney disease, stage 4 (severe) N18.4 Active 894669286 Problem Migraine with aura and without status migrainosu s, not intractable G43.109 Active 7244362 Problem Autonomic neuropathy G90.9 Active 125742014 Problem Type 1 diabetes mellitus with complications E10.8 Active 852779063 Problem Menorrhagia with regular cycle N92.0 Active 697754058 Problem Other chronic pain G89.29 Active 8 4723184 Problem Lymphedema I89.0 Active 586298412 Problem Essential hypertension I10 Active 38473421 Problem Moderate episode of recurrent major depressive disorder F33.1 Active 608551122 Problem Type 1 diabetes mellitus without complications E10 .9 Active 640988117 Problem Primary insomnia F51.01 Active 397 2004 Problem Migraine G43.909 Active 67206341 Problem Low back pain M54.5 Active 825298 009 Problem Diastolic dysfunction I51.89 Active 7625756 Problem ESRF (end stage renal failure) N18.6 Active 47674824 Problem Restless legs G25.81 Active 165055 08 Problem Hyperthyroidism E05.90 Active 3448 6009 ALLERGIES No Information ENCOUNTERS Encounter Location Date Diagnosis [place] [id number] [address] Jan, [facility] [address] [id number] Jan, [facility] [address] [id number] Dec, Caries K02.9 and Dental examination Z01. 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 ; Migraine without aura and without status migrainosus, not intractable G43.009 ; Chronic kidney disease, stage 4 (severe) N18.4 ; Claudication I73.9 ; Peritoneal dialysis status Z99.2 ; Diastolic dysfunction I51.89 ; Primary insomnia F51.01 and Burn T30.0 [place] [address] [address] Sep, Moderate episode of recurrent major depr essive disorder F33.1 and Primary insomnia F51.01 [place] [address] [address] Aug, Hyperthyroidism E05.90 [place] [address] [address] May, Restless legs G25.81 [place] [address] [address] May, [place] [address] [address] May, [facility] [address] [address] May, Type 1 diabetes mellitus with hypoglycem ia without coma E10.649 ; ESRF (end stage renal failure) N18.6 ; Leg cramps R25.2 ; Restless legs G25.81 and Low back pain M54.5 [facility] [address] [address] Apr, Low back pain M54.5 [facility] [address] [address] Apr, [facility] [address] [address] March, Low back pain M54.5 [facility] [address] [address] March, [facility] [address] [address] Feb, Low back pain M54.5 [facility] [address] [address] Jan, Low back pain M54.5 [facility] [address] [address] Jan, [facility] [address] [address] Jan, [facility] [address] [address] Jan, [facility] [address] [address] Dec, Type 1 diabetes mellitus with hypoglycem ia without coma E10.649 and Low back pain M54.5 [facility] [address] [address] Dec, Low back pain M54.5 [facility] [address] [address] 13 Dec, 2018 Diastolic dysfunction I51.89 ; Essential hypertension I10 and Chronic kidney disease, stage 4 (severe) N18.4 [place] [address] [address] 11 Dec, 2018 RUQ abdominal pain R10.11 ; Type 1 diabe camryn mellitus without complications E10.9 ; Therapeutic drug monitoring Z51.81 ; Migraine with aura and without status migrainosus, not intractable G43.109 and Intractable migraine without aura and with status migrainosus G43.011 [place] [address] [address] Nov, Low back pain M54.5 [place] [address] [address] Nov, [address] [address] 14 Nov, 2018 Intractable migraine without aura and wi th status migrainosus G43.011 ; Lymphedema I89.0 ; Pain in right shoulder M25.511 ; Other chronic pain G89.29 ; Irritable bowel syndrome with diarrhea K58.0 ; Type 1 diabetes mellitus without complications E10.9 and Essential hypertension I10 [place] [address] [address] Oct, Low back pain M54.[address] [address] Oct, [address] [address] Oct, Orthostatic hypotension I95.1 ; Shortnes s of breath R06.02 ; Leg swelling M79.89 ; Type 1 diabetes mellitus without complications E10.9 and Claudication I73.[address] [address] Sep, Low back pain M54.[address] [address] Sep, Low back pain M54.5 [facility] [address] [address] Aug, [facility] [address] [address] Aug, Migraine without aura and without status migrainosus, not intractable G43.009 [facility] [address] [address] Aug, Low back pain M54.5 [facility] [address] [facility] [id number] [place] [address] Aug, Acute rhinosinusitis J01.90 and Sore throat J02.9 [facility] [address] [address] 28 Jul, 2018 Low back pain M54.5 [facility] [address] [address] Jul, Migraine without aura and without status migrainosus, not intractable G43.009 [facility] [address] [address] Jun, Low back pain M54.5 [facility] [address] [address] Jun, [facility] [address] [address] Jun, Orthostatic hypotension I95.1 ; Shortnes s of breath R06.02 ; Type 1 diabetes mellitus without complications E10.9 and Leg swelling M79.89 [facility] [address] [address] Jun, Low back pain M54.5 [facility] [address] [address] Jun, [facility] [address] [address] May, Migraine without aura and without status migrainosus, not intractable G43.009 [place] [address] [address] May, Migraine without aura and without status migrainosus, not intractable G43.009 ; Restless legs syndrome G25.81 ; Leg cramps R25.2 ; Chronic kidney disease, unspecified N18.9 ; Postural hypotension I95.1 ; Diarrhea, unspecified type R19.7 and Cough R05 [place] [address] [address] May, [place] [address] [address] May, [place] [address] [address] May, Orthostatic hypotension I95.1 ; Shortnes s of breath R06.02 ; Type 1 diabetes mellitus with complications E10.8 and Leg swelling M79.89 [place] [address] [address] May, [place] [address] [address] May, Low back pain M54.5 [place] [address] [address] Apr, Type 1 diabetes mellitus with hyperglyce sebastian E10.65 [place] [address] [address] Apr, Low back pain M54.5 [place] [address] [address] Apr, [place] [address] [address] Apr, [place] [address] [address] March, [place] [address] [address] March, Low back pain M54.5 [place] [address] [address] March, [place] [address] [address] Feb, [place] [address] [address] Feb, Low back pain M54.5 [place] [address] [address] Jan, Restless legs syndrome G25.81 [place] [address] [address] Jan, Low back pain M54.5 [place] [address] [address] Jan, [place] [address] [address] Jan, Type 1 diabetes mellitus without complic ations E10.9 ; Low back pain M54.5 ; Cough R05 ; Diarrhea, unspecified type R19.7 ; Migraine without aura and without status migrainosus, not intractable G43.009 and Uses control Z30.9 [place] [address] [address] Dec, Low back pain M54.5 [place] [address] [address] Dec, [place] [address] [address] Nov, Well woman exam Z01.419 ; Menorrhagia wi th regular cycle N92.0 ; Vaginal dryness N89.8 and Migraine with aura and without status migrainosus, not intractable G43.109 [place] [address] [address] Nov, [place] [address] [address] Nov, Low back pain M54.5 [facility] [address] [address] Oct, Low back pain M54.5 [facility] [address] [address] Oct, Migraine without aura and without status migrainosus, not intractable G43.009 [facility] [address] [address] Sep, Low back pain M54.5 [facility] [address] [address] Sep, [facility] [address] [address] Sep, Migraine without aura and without status migrainosus, not intractable G43.009 [facility] [address] [address] Sep, Type 1 diabetes mellitus with hypoglycem ia without coma E10.649 ; Anemia D64.9 ; Migraine without aura and without status migrainosus, not intractable G43.009 ; Chronic kidney disease, unspecified N18.9 ; Autonomic neuropathy G90.9 and Postural hypotension I95.1 [facility] [address] [address] Sep, Low back pain M54.5 [facility] [address] [address] Aug, Low back pain M54.5 [facility] [address] [address] 14 Jul, 2017 [facility] [address] [address] Jul, Low back pain M54.5 [facility] [address] [address] Jun, [facility] [address] [address] Jun, Low back pain M54.5 [facility] [address] [address] Jun, Migraine without aura and without status migrainosus, not intractable G43.009 [facility] [address] [address] Jun, Type 1 diabetes mellitus with hyperglyce sebastian E10.65 ; Dysthymia F34.1 and Migraine without aura and without status migrainosus, not intractable G43.009 [facility] [address] [address] Jun, [facility] [address] [address] May, Type 1 diabetes mellitus with hyperglyce sebastian E10.65 [facility] [address] [address] May, Low back pain M54.5 [facility] [address] [address] May, Type 1 diabetes mellitus with hyperglyce sebastian E10.65 [facility] [address] [address] Apr, [facility] [address] [address] Apr, Chronic kidney disease, stage 4 (severe) N18.4 [facility] [address] [address] Apr, Low back pain M54.5 [facility] [address] [address] March, [facility] [address] [address] March, Low back pain M54.5 [facility] [address] [address] Feb, [facility] [address] [address] Feb, [facility] [address] [address] Feb, Low back pain M54.5 [facility] [address] [address] Feb, Low back pain M54.5 [facility] [address] [address] Feb, Migraine without aura and without status migrainosus, not intractable G43.009 [facility] [address] [address] Feb, [facility] [address] [address] Jan, Low back pain M54.5 [facility] [address] [address] Jan, Type 1 diabetes mellitus without complic ations E10.9 ; Anemia D64.9 ; Chronic kidney disease, unspecified N18.9 ; Migraine without aura and without status migrainosus, not intractable G43.009 and Other insomnia G47.09 [place] [address] [address] Jan, [facility] [address] [address] Dec, Low back pain M54.5 [facility] [address] [address] Dec, [facility] [address] [address] Dec, [facility] [address] [address] 08 Dec, 2016 Shortness of breath R06.02 ; Type 1 diab etes mellitus without complications E10.9 and Leg swelling M79.89 [facility] [address] [address] Nov, Low back pain M54.5 [facility] [address] [address] Nov, Viral syndrome B34.9 [facility] [address] [address] Oct, Low back pain M54.5 [facility] [address] [address] Oct, [facility] [address] [address] Oct, Low back pain M54.5 [facility] [address] [address] Sep, [place] [address] [address] Sep, Fatigue, unspecified type R53.83 ; Type 1 diabetes mellitus without complications E10.9 and Anemia D64.9 [place] [address] [address] Sep, Low back pain M54.5 [place] [address] [address] Sep, Type 1 diabetes mellitus with hyperglyce sebastian E10.65 [place] [address] [address] Aug, Type 1 diabetes mellitus without complic ations E10.9 [place] [address] [address] Aug, [place] [address] [address] Aug, [place] [address] [address] Jul, [place] [address] [address] 14 Jul, 2016 Low back pain M54.5 [place] [address] [address] Jul, Hyperkalemia, diminished renal excretion E87.5 [facility] [address] [address] Jul, Hyperkalemia, diminished renal excretion E87.5 [facility] [address] [address] Jun, [facility] [address] [address] Jun, Low back pain M54.5 [facility] [address] [address] Jun, Anemia D64.9 ; Autonomic neuropathy G90. 9 and Postural hypotension I95.1 [place] [address] [address] Jun, [place] [address] [address] May, Type 1 diabetes mellitus with complicati ons E10.8 and Anemia D64.9 [place] [address] [address] May, Low back pain M54.5 [place] [address] [address] Apr, [place] [address] [address] Apr, Low back pain M54.5 [place] [address] [address] Apr, [place] [address] [address] Apr, [place] [address] [address] March, Low back pain M54.5 and Other chronic pa in G89.29 [facility] [address] [address] March, Type 1 diabetes mellitus without complic ations E10.9 [facility] [address] [place] [id number] [place] [address] March, [facility] [address] [address] March, [facility] [address] [address] Feb, [facility] [address] [address] Feb, Type 1 diabetes mellitus without complic ations E10.9 [facility] [address] [address] Feb, Trochanteric bursitis, right hip M70.61 [facility] [address] [address] Jan, [facility] [address] [address] Jan, [facility] [address] [address] Dec, Type 1 diabetes mellitus with complicati ons E10.8 [facility] [address] [address] Dec, [facility] [address] [address] Dec, Anemia D64.9 ; Autonomic neuropathy G90. 9 and Postural hypotension I95.1 [facility] [address] [address] Dec, [facility] [address] [address] Nov, Sore throat J02.9 [facility] [address] [address] Nov, Type 1 diabetes mellitus with complicati ons E10.8 [facility] [address] [address] Nov, Type 1 diabetes mellitus with diabetic n ephropathy E10.21 ; Proteinuria, unspecified R80.9 and Chronic kidney disease, unspecified N18.9 [facility] [address] [address] Nov, [facility] [address] [address] Nov, Trochanteric bursitis, right hip M70.61 [facility] [address] [address] Nov, [facility] [address] [address] Oct, [facility] [address] [address] Oct, [facility] [address] [address] Oct, [facility] [address] [address] Sep, [facility] [address] [address] Sep, [facility] [address] [address] Sep, Type 2 diabetes mellitus with complicati on E11.8 and Right hip pain M25.551 [facility] [address] [address] Sep, [facility] [address] [address] Aug, [facility] [address] [address] Aug, [facility] [address] [address] Aug, [facility] [address] [address] Aug, Type 1 diabetes mellitus without complic ations E10.9 [facility] [address] [place] [id number] [place] [address] 16 Jul, 2015 [facility] [address] [address] Jul, [facility] [address] [address] Jul, [facility] [address] [address] Jun, [facility] [address] [address] Jun, [facility] [address] [address] Jun, [facility] [address] [address] Jun, [facility] [address] [address] Jun, [facility] [address] [address] Jun, Diabetes mellitus without mention of com plication, type I [juvenile type], not stated as uncontrolled 250.01 [facility] [address] [place] [id number] [place] [address] May, [facility] [address] [address] May, [facility] [address] [address] May, [facility] [address] [address] May, Autonomic neuropathy 337.9 ; Postural hy potension 458.0 and Anemia 285.9 [facility] [address] [place] [id number] [place] [address] May, [facility] [address] [address] Apr, [facility] [address] [place] [address] Apr, [facility] [address] [facility] [id number] [facility] [place] [address] Apr, [facility] [address] [id number] [place] [address] Apr, [facility] [address] [id number] [place] [address] Apr, [facility] [address] [id number] [place] [address] March, [facility] [address] [id number] [place] [address] March, [facility] [address] [id number] [place] [address] March, [facility] [address] [id number] [place] [address] March, [facility] [address] [id number] [place] [address] March, [facility] [address] [id number] [place] [address] Feb, [facility] [address] [id number] [place] [address] Feb, [facility] [address] [id number] [place] [address] Feb, [facility] [address] [id number] [place] [address] 30 Jan, 2015 [facility] [address] [id number] [place] [address] Jan, [facility] [address] [id number] [place] [address] Jan, [facility] [address] [id number] [place] [address] Jan, [facility] [address] [id number] [place] [address] Jan, [facility] [address] [id number] [place] [address] Jan, [facility] [address] [id number] [place] [address] Jan, [facility] [address] [id number] [place] [address] Jan, [facility] [address] [id number] [place] [address] Jan, [facility] [address] [id number] [place] [address] Jan, [facility] [address] [id number] [place] [address] Jan, [facility] [address] [id number] [place] [address] Jan, [facility] [address] [id number] [place] [address] Jan, [facility] [address] [id number] [place] [address] Dec, 2014 [facility] [address] [id number] [place] [address] Dec, 2014 [facility] [address] [id number] [place] [address] Dec, 2014 [facility] [address] [id number] [place] [address] Dec, 2014 [facility] [address] [id number] [place] [address] Dec, 2014 [facility] [address] [id number] [place] [address] Dec, 2014 [facility] [address] [id number] [place] [address] Dec, 2014 [facility] [address] [id number] [place] [address] Dec, 2014 [facility] [address] [id number] [place] [address] Nov, [facility] [address] [id number] [place] [address] Nov, [facility] [address] [id number] [place] [address] Nov, [facility] [address] [id number] [place] [address] Nov, [facility] [address] [id number] [place] [address] Nov, [facility] [address] [id number] [place] [address] Nov, [facility] [address] [id number] [place] [address] Nov, [facility] [address] [id number] [place] [address] Nov, [facility] [address] [id number] [place] [address] Nov[facility] [facility] [address] [id number] [place] [address] Oct, [facility] [facility] [address] [id number] [place] [address] Oct, [facility] [place] [facility] [address] [id number] [place] [address] Oct, [facility] [facility] [address] [id number] [place] [address] Oct, [facility] [place] [facility] [address] [id number] [place] [address] Oct, [facility] [address] [id number] [place] [address] Oct, [facility] [address] [id number] [place] [address] Oct, [facility] [address] [id number] [place] [address] Oct, [facility] [facility] [address] [id number] [place] [address] Oct, [facility] [facility] [address] [id number] [place] [address] Oct, [facility] [address] [id number] [place] [address] Oct, [facility] [facility] [address] [id number] [place] [address] Oct, [facility] [facility] [address] [id number] [place] [address] Oct, [facility] [facility] [address] [id number] [place] [address] Oct, [facility] [facility] [address] [id number] [place] [address] Sep, [facility] [facility] [address] [id number] [place] [address] Sep, [facility] [facility] [address] [id number] [place] [address] Sep, [facility] [facility] [address] [id number] [place] [address] Sep, [facility] [facility] [address] [id number] [place] [address] Aug, [facility] [address] [id number] [place] [address] Aug, [facility] [address] [id number] [place] [address] Aug, [facility] [address] [id number] [place] [address] Aug, [facility] [id number] [place] [address] Aug, [facility] [address] [id number] [place] [address] Aug, [facility] [address] [id number] [place] [address] Aug, [facility] [address] [facility] [id number] [place] [address] Aug, 2013 [facility] [address] [facility] [id number] [place] [address] Aug, 2013 [facility] [address] [id number] [place] [address] 02 Aug, 2013 [facility] [address] [id number] [place] [address] 29 Sep, 2013 [facility] [address] [facility] [id number] [place] [address] 29 Sep, 2013 [facility] [address] [id number] [place] [address] 29 Jul, 2013 [facility] [address] [id number] [place] [address] 29 Jul, 2013 [facility] [address] [id number] [place] [address] 22 Jul, 2013 [facility] [address] [id number] [place] [address] 22 Sep, 2013 [facility] [address] [id number] [place] [address] 19 Jul, 2013 [facility] [address] [id number] [place] [address] 19 Sep, 2013 [facility] [address] [id number] [place] [address] 11 Jul, 2013 [facility] [address] [id number] [place] [address] 11 Sep, 2013 [facility] [address] [id number] [place] [address] 10 Sep, 2013 [facility] [address] [id number] [place] [address] 10 Jul, 2013 [facility] [address] [id number] [place] [address] 08 Sep, 2013 [facility] [facility] [address] [id number] [place] [address] 08 Jul, 2013 [facility] [facility] [address] [id number] [place] [address] 03 Jul, 2013 [facility] [address] [facility] [id number] [facility] [address] 03 Jul, 2013 [facility] [address] [id number] [facility] [place] [address] Jul, 2013 [facility] [address] [facility] [id number] [facility] [address] Jul, 2013 [facility] [facility] [address] [facility] [id number] [place] [address] Jun, [facility] [facility] [address] [id number] [place] [address] Jun, [facility] [facility] [address] [id number] [place] [address] Jun, [facility] [address] [id number] [facility] [address] Jun, [facility] [address] [facility] [id number] [facility] [address] Jun, [facility] [address] [id number] [place] [address] Jun, [facility] [address] [id number] [place] [address] Jun, [facility] [address] [id number] [place] [address] Jun, [facility] [address] [facility] [id number] [place] [address] Jun, [facility] [address] [id number] [place] [address] Jun, [facility] [address] [facility] [id number] [place] [address] Jun, [facility] [address] [id number] [place] [address] Jun, [facility] [address] [id number] [place] [address] Jun, [facility] [address] [facility] [id number] [place] [address] Jun, [facility] [address] [facility] [id number] [place] [address] Jun, [facility] [address] [id number] [place] [address] May, [facility] [address] [facility] [id number] [place] [address] May, [facility] [address] [facility] [id number] [place] [address] May, [facility] [address] [id number] [place] [address] May, [facility] [address] [id number] [place] [address] May, [facility] [address] [id number] [place] [address] May, [facility] [address] [id number] [place] [address] May, [facility] [address] [id number] [place] [address] May, [facility] [address] [id number] [place] [address] Apr, [facility] [address] [id number] [place] [address] Apr, [facility] [address] [facility] [id number] [place] [address] Apr, [facility] [address] [id number] [place] [address] Apr, [facility] [address] [id number] [place] [address] Apr, [facility] [address] [id number] [place] [address] Apr, [facility] [address] [facility] [id number] [place] [address] Apr, [facility] [address] [facility] [id number] [facility] [address] Apr, [facility] [address] [facility] [id number] [place] [address] Apr, [facility] [address] [facility] [id number] [place] [address] Apr, [facility] [address] [facility] [id number] [place] [address] Apr, [facility] [address] [id number] [place] [address] Apr, [facility] [address] [id number] [place] [address] Apr, [facility] [address] [id number] [place] [address] Apr, [facility] [address] [id number] [place] [address] Apr, [facility] [address] [id number] [place] [address] Apr, [facility] [address] [id number] [place] [address] Apr, [facility] [address] [id number] [place] [address] Apr, [facility] [address] [facility] [id number] [place] [address] March, [facility] [address] [id number] [place] [address] March, [facility] [address] [id number] [place] [address] March, [facility] [address] [id number] [place] [address] March, [facility] [address] [id number] [facility] [place] [address] March, [facility] [address] [facility] [id number] [facility] [place] [address] March, [facility] [address] [facility] [id number] [place] [address] March, [facility] [address] [id number] [place] [address] March, [facility] [address] [id number] [place] [address] March, [facility] [address] [facility] [id number] [facility] [address] Feb, [facility] [address] [id number] [place] [address] Feb, [facility] [address] [id number] [place] [address] Feb, [facility] [address] [id number] [place] [address] Feb, [facility] [address] [id number] [facility] [address] Feb, [facility] [address] [id number] [place] [address] Feb, [facility] [address] [id number] [place] [address] Feb, [facility] [address] [id number] [place] [address] Feb, [facility] [address] [id number] [place] [address] Feb, [facility] [address] [id number] [place] [address] Feb, [facility] [address] [id number] [place] [address] Feb, [facility] [address] [id number] [place] [address] Feb, [facility] [address] [id number] [place] [address] Feb, [facility] [address] [id number] [place] [address] Jan, [facility] [address] [id number] [place] [address] Jan, [facility] [address] [id number] [place] [address] Jan, [facility] [address] [id number] [place] [address] Jan, [facility] [address] [id number] [place] [address] Jan, [facility] [address] [id number] [place] [address] Jan, [facility] [address] [id number] [place] [address] Jan, [facility] [address] [id number] [place] [address] Jan, [facility] [address] [id number] [place] [address] Dec, [facility] [address] [id number] [place] [address] Dec, [facility] [address] [id number] [place] [address] Dec, [facility] [address] [id number] [place] [address] Dec, [facility] [address] [id number] [place] [address] Dec, [facility] [address] [id number] [place] [address] Dec, [facility] [address] [id number] [place] [address] Dec, [facility] [address] [id number] [place] [address] Dec, [facility] [facility] [address] [id number] [place] [address] Dec, [facility] [address] [id number] [place] [address] Dec, [facility] [address] [id number] [place] [address] Nov, [facility] [facility] [address] [id number] [place] [address] Nov, [facility] [facility] [address] [id number] [place] [address] Nov, [facility] [address] [id number] [place] [address] Nov, [facility] [facility] [id number] [place] [address] Nov, [facility] [facility] [address] [id number] [place] [address] Nov, [facility] [facility] [address] [id number] [place] [address] Nov, [facility] [facility] [id number] [place] [address] Nov, [facility] [place] [facility] [address] [id number] [place] [address] Nov, [facility] [facility] [id number] [place] [address] Nov, [facility] [place] [facility] [address] [id number] [place] [address] Oct, [facility] [place] [facility] [address] [id number] [place] [address] Oct, [facility] [place] [facility] [address] [id number] [place] [address] Oct, [facility] [facility] [address] [id number] [place] [address] Oct, [facility] [place] [facility] [address] [id number] [place] [address] 17 Oct, 2013 [facility] [place] [facility] [address] [id number] [place] [address] 17 Oct, 2013 [facility] [place] [facility] [address] [id number] [place] [address] 16 Oct, 2013 [facility] [place] [facility] [address] [id number] [place] [address] 16 Oct, 2013 [facility] [place] [facility] [address] [id number] [place] [address] Oct, [facility] [place] [facility] [address] [id number] [place] [address] Oct, [facility] [place] [facility] [address] [id number] [place] [address] Oct, [facility] [place] [facility] [address] [id number] [place] [address] 04 Oct, 2013 [facility] [place] [facility] [address] [id number] [place] [address] 04 Oct, 2013 [facility] [place] [facility] [address] [id number] [place] [address] Oct, [facility] [place] [facility] [address] [id number] [place] [address] Sep, [facility] [place] [facility] [address] [id number] [place] [address] 27 Sep, 2013 [facility] [place] [facility] [address] [id number] [place] [address] 18 Sep, 2013 [facility] [place] [facility] [address] [id number] [place] [address] 18 Sep, 2013 [facility] [place] [facility] [id number] [place] [address] Sep, [facility] [place] [facility] [address] [id number] [place] [address] Sep, [facility] [place] [facility] [address] [id number] [place] [address] Aug, [facility] [place] [facility] [address] [facility] [id number] [place] [address] 31 Aug, 2012 [facility] [place] [facility] [address] [facility] [id number] [place] [address] 17 Aug, 2012 [facility] [place] [facility] [address] [id number] [place] [address] 17 Aug, 2012 [facility] [place] [facility] [address] [id number] [place] [address] 10 Aug, 2012 [facility] [place] [facility] [address] [facility] [id number] [place] [address] 10 Aug, 2012 [facility] [place] [facility] [address] [id number] [place] [address] 07 Aug, 2012 [facility] [place] [facility] [address] [id number] [place] [address] 02 Aug, 2012 [facility] [place] [facility] [address] [id number] [place] [address] 02 Aug, 2012 [facility] [place] [facility] [address] [id number] [place] [address] 25 Sep, 2012 [facility] [place] [facility] [address] [id number] [place] [address] 23 Sep, 2012 [facility] [place] [facility] [address] [id number] [place] [address] 21 Sep, 2012 [facility] [place] [facility] [address] [id number] [place] [address] 20 Sep, 2012 [facility] [place] [facility] [address] [id number] [place] [address] 18 Sep, 2012 [facility] [place] [facility] [address] [id number] [place] [address] 17 Sep, 2012 [facility] [place] [facility] [address] [id number] [place] [address] 16 Sep, 2012 [facility] [place] [facility] [address] [id number] [place] [address] 11 Sep, 2012 [facility] [place] [facility] [address] [id number] [place] [address] Jul, 2012 [facility] [place] [facility] [address] [id number] [facility] [address] Jul, 2012 [facility] [place] [facility] [address] [facility] [id number] [facility] [address] Jul, 2012 [facility] [place] [facility] [address] [id number] [facility] [address] Jul, [facility] [place] [facility] [address] [facility] [id number] [facility] [address] Jun, [facility] [place] [facility] [address] [facility] [id number] [facility] [address] Jun, [facility] [place] [facility] [address] [id number] [place] [address] Jun, [facility] [place] [facility] [address] [id number] [place] [address] Jun, [facility] [place] [facility] [address] [id number] [place] [address] Jun, [facility] [address] [facility] [id number] [place] [address] Jun, [facility] [address] [id number] [place] [address] Jun, [facility] [address] [id number] [place] [address] Jun, [facility] [address] [id number] [place] [address] Jun, [facility] [address] [facility] [id number] [place] [address] May, [facility] [address] [id number] [place] [address] May, [facility] [address] [facility] [id number] [place] [address] May, [facility] [address] [id number] [place] [address] May, [facility] [address] [id number] [facility] [place] [address] May, [facility] [address] [id number] [place] [address] May, [facility] [address] [id number] [place] [address] May, [facility] [address] [id number] [place] [address] March, [facility] [address] [facility] [id number] [place] [address] March, [facility] [address] [id number] [place] [address] March, [facility] [address] [id number] [place] [address] Dec, [facility] [address] [id number] [place] [address] Nov, [facility] [address] [id number] [place] [address] Aug, [facility] [address] [id number] [place] [address] Aug, [facility] [address] [id number] [place] [address] Jun, [facility] [address] [id number] [place] [address] Jun, [facility] [address] [id number] [place] [address] Jun, [facility] [address] [facility] [id number] [place] [address] Jun, [facility] [address] [id number] [place] [address] May, [facility] [address] [id number] [place] [address] May, [facility] [address] [id number] [place] [address] May, [facility] [address] [id number] [place] [address] May, [facility] [address] [id number] [facility] [address] May, [facility] [address] [id number] [place] [address] May, [facility] [address] [id number] [facility] [address] May, [facility] [address] [facility] [id number] [facility] [address] Apr, [facility] [address] [id number] [place] [address] Apr, [facility] [address] [id number] [place] [address] Apr, [facility] [address] [id number] [place] [address] Apr, [facility] [address] [id number] [place] [address] March, [facility] [address] [id number] [place] [address] March, [facility] [address] [id number] [place] [address] March, [facility] [address] [id number] [place] [address] March, [facility] [address] [id number] [place] [address] March, [facility] [address] [id number] [place] [address] March, [facility] [address] [id number] [place] [address] March, [facility] [address] [id number] [place] [address] March, [facility] [address] [id number] [place] [address] March, [facility] [address] [id number] [facility] [address] Feb, [facility] [address] [id number] [place] [address] Feb, [facility] [address] [id number] [place] [address] Jan, [facility] [address] [id number] [place] [address] 27 Jan, 2012 [facility] [address] [id number] [place] [address] Jan, [facility] [address] [id number] [place] [address] Jan, [facility] [address] [id number] [place] [address] Dec, [facility] [address] [id number] [place] [address] 16 Dec, 2011 [facility] [address] [id number] [place] [address] 15 Dec, 2011 [facility] [address] [id number] [place] [address] Nov, [facility] [address] [id number] [place] [address] Oct, [facility] [address] [id number] [place] [address] 15 Oct, 2011 [facility] [address] [id number] [place] [address] 15 Oct, 2011 [facility] [address] [id number] [place] [address] 14 Oct, 2011 [facility] [address] [id number] [place] [address] 14 Oct, 2011 [facility] [address] [id number] [place] [address] 12 Oct, 2011 [facility] [id number] [place] [address] Oct, [facility] [id number] [place] [id number] Oct, [facility] [address] [id number] [place] [address] Sep, [facility] [address] [id number] [place] [address] Sep, [facility] [address] [id number] [place] [address] Sep, [facility] [address] [id number] [place] [address] Sep, [facility] [address] [id number] [place] [address] Sep, [facility] [address] [id number] [place] [address] Sep, [facility] [address] [id number] [place] [address] Sep, [facility] [address] [id number] [place] [address] Sep, [facility] [address] [id number] [place] [address] Sep, [facility] [address] [id number] [place] [address] Aug, [facility] [address] [id number] [place] [address] Jul, [facility] [address] [id number] [place] [address] Oct, [facility] [address] [id number] [place] [address] Oct, [facility] [address] [id number] [place] [address] Oct, IMMUNIZATIONS No Known Immunizations SOCIAL HISTORY [...]
--- OUTSIDE RECORDS SUMMARY | 2020-03-19 06:00 | XMS REPORT ---
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 79919596 Problem Chronic kidney disease, unspecified N18.9 Active 723421339 Problem Anemia, unspecified D64.9 Active 517938445 Problem Irritable bowel K58.9 Active 1074 3008 Problem Irritable bowel syndrome with diarrhea K58.0 Active 497583938 Problem Claudication I73.9 Active 1085714 6 Problem Intractable migraine without aura and with status migr ainosus G43.011 Active 169338512 Problem Peritoneal dialysis status Z99.2 Act moody 996053229 Problem Migraine without aura and without status migrain osus, not intractable G43.009 Active 132338217 Problem Other insomnia G47.09 Active 92596 2000 Problem Dysthymia F34.1 Active 88683038 Problem Chronic kidney disease, stage 4 (severe) N18.4 Active 169213265 Problem Migraine with aura and without status migrainosu s, not intractable G43.109 Active 5469493 Problem Autonomic neuropathy G90.9 Active 240204012 Problem Type 1 diabetes mellitus with complications E10.8 Active 633064141 Problem Menorrhagia with regular cycle N92.0 Active 192247648 Problem Other chronic pain G89.29 Active 8 5259076 Problem Lymphedema I89.0 Active 960938132 Problem Essential hypertension I10 Active 36199589 Problem Moderate episode of recurrent major depressive disorder F33.1 Active 440615392 Problem Type 1 diabetes mellitus without complications E10 .9 Active 911318719 Problem Primary insomnia F51.01 Active 397 2004 Problem Migraine G43.909 Active 22466694 Problem Low back pain M54.5 Active 990071 009 Problem Diastolic dysfunction I51.89 Active 8856455 Problem ESRF (end stage renal failure) N18.6 Active 03520398 Problem Restless legs G25.81 Active 406495 08 Problem Hyperthyroidism E05.90 Active 3448 6009 ALLERGIES No Information ENCOUNTERS Encounter Location Date Diagnosis [place] [address] [address] Jan, [facility] [address] [id number] Jan, [facility] [address] [id number] Dec, Caries K02.9 and Dental examination Z01. 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 ; Migraine without aura and without status migrainosus, not intractable G43.009 ; Chronic kidney disease, stage 4 (severe) N18.4 ; Claudication I73.9 ; Peritoneal dialysis status Z99.2 ; Diastolic dysfunction I51.89 ; Primary insomnia F51.01 and Burn T30.0 [place] [address] [address] Sep, Moderate episode of recurrent major depr essive disorder F33.1 and Primary insomnia F51.01 [place] [address] [address] Aug, Hyperthyroidism E05.90 [place] [address] [address] May, Restless legs G25.81 [place] [address] [address] May, [facility] [address] [address] May, [facility] [address] [address] May, Type 1 diabetes mellitus with hypoglycem ia without coma E10.649 ; ESRF (end stage renal failure) N18.6 ; Leg cramps R25.2 ; Restless legs G25.81 and Low back pain M54.5 [facility] [address] [address] Apr, Low back pain M54.5 [facility] [address] [address] Apr, [facility] [address] [address] March, Low back pain M54.5 [facility] [address] [address] March, [facility] [address] [address] Feb, Low back pain M54.5 [facility] [address] [address] Jan, Low back pain M54.5 [facility] [address] [address] Jan, [facility] [address] [address] Jan, [facility] [address] [address] Jan, [facility] [address] [address] Dec, Type 1 diabetes mellitus with hypoglycem ia without coma E10.649 and Low back pain M54.5 [facility] [address] [address] 21 Dec, 2018 Low back pain M54.5 [place] [address] [address] 13 Dec, 2018 Diastolic dysfunction I51.89 ; Essential hypertension I10 and Chronic kidney disease, stage 4 (severe) N18.4 [place] [address] [address] 11 Dec, 2018 RUQ abdominal pain R10.11 ; Type 1 diabe camryn mellitus without complications E10.9 ; Therapeutic drug monitoring Z51.81 ; Migraine with aura and without status migrainosus, not intractable G43.109 and Intractable migraine without aura and with status migrainosus G43.011 [place] [address] [address] Nov, Low back pain M54.5 [place] [address] [address] Nov, [place] [address] [address] Nov, Intractable migraine without aura and wi th status migrainosus G43.011 ; Lymphedema I89.0 ; Pain in right shoulder M25.511 ; Other chronic pain G89.29 ; Irritable bowel syndrome with diarrhea K58.0 ; Type 1 diabetes mellitus without complications E10.9 and Essential hypertension I10 [place] [address] [address] Oct, Low back pain M54.5 [place] [address] [address] Oct, [place] [address] [address] Oct, Orthostatic hypotension I95.1 ; Shortnes s of breath R06.02 ; Leg swelling M79.89 ; Type 1 diabetes mellitus without complications E10.9 and Claudication I73.9 [place] [address] [address] Sep, Low back pain M54.5 [facility] [address] [place] [id number] [place] [address] Sep, Low back pain M54.5 [facility] [address] [address] Aug, [facility] [address] [address] Aug, Migraine without aura and without status migrainosus, not intractable G43.009 [facility] [address] [address] Aug, Low back pain M54.5 [facility] [address] [facility] [id number] [place] [address] Aug, Acute rhinosinusitis J01.90 and Sore throat J02.9 [facility] [address] [place] [id number] [place] [address] Jul, Low back pain M54.5 [facility] [address] [address] Jul, Migraine without aura and without status migrainosus, not intractable G43.009 [facility] [address] [address] Jun, Low back pain M54.5 [facility] [address] [address] Jun, [facility] [address] [address] Jun, Orthostatic hypotension I95.1 ; Shortnes s of breath R06.02 ; Type 1 diabetes mellitus without complications E10.9 and Leg swelling M79.89 [facility] [address] [address] Jun, Low back pain M54.5 [facility] [address] [address] Jun, [facility] [address] [address] May, Migraine without aura and without status migrainosus, not intractable G43.009 [place] [address] [address] May, Migraine without aura and without status migrainosus, not intractable G43.009 ; Restless legs syndrome G25.81 ; Leg cramps R25.2 ; Chronic kidney disease, unspecified N18.9 ; Postural hypotension I95.1 ; Diarrhea, unspecified type R19.7 and Cough R05 [place] [address] [address] May, [place] [address] [address] May, [place] [address] [address] May, Orthostatic hypotension I95.1 ; Shortnes s of breath R06.02 ; Type 1 diabetes mellitus with complications E10.8 and Leg swelling M79.89 [place] [address] [address] May, [place] [address] [address] May, Low back pain M54.5 [place] [address] [address] Apr, Type 1 diabetes mellitus with hyperglyce sebastian E10.65 [place] [address] [address] Apr, Low back pain M54.5 [place] [address] [address] Apr, [place] [address] [address] Apr, [place] [address] [address] March, [place] [address] [address] March, Low back pain M54.5 [place] [address] [address] March, [facility] [address] [address] Feb, [place] [address] [address] Feb, Low back pain M54.5 [place] [address] [address] Jan, Restless legs syndrome G25.81 [place] [address] [address] Jan, Low back pain M54.5 [place] [address] [address] Jan, [place] [address] [address] Jan, Type 1 diabetes mellitus without complic ations E10.9 ; Low back pain M54.5 ; Cough R05 ; Diarrhea, unspecified type R19.7 ; Migraine without aura and without status migrainosus, not intractable G43.009 and Uses control Z30.9 [place] [address] [address] Dec, Low back pain M54.5 [place] [address] [address] Dec, [place] [address] [address] Nov, Well woman exam Z01.419 ; Menorrhagia wi th regular cycle N92.0 ; Vaginal dryness N89.8 and Migraine with aura and without status migrainosus, not intractable G43.109 [place] [address] [address] Nov, [place] [address] [address] Nov, Low back pain M54.5 [facility] [address] [address] Oct, Low back pain M54.5 [facility] [address] [address] Oct, Migraine without aura and without status migrainosus, not intractable G43.009 [facility] [address] [address] Sep, Low back pain M54.5 [facility] [address] [address] Sep, [place] [address] [address] Sep, Migraine without aura and without status migrainosus, not intractable G43.009 [place] [address] [address] Sep, Type 1 diabetes mellitus with hypoglycem ia without coma E10.649 ; Anemia D64.9 ; Migraine without aura and without status migrainosus, not intractable G43.009 ; Chronic kidney disease, unspecified N18.9 ; Autonomic neuropathy G90.9 and Postural hypotension I95.1 [place] [address] [address] Sep, Low back pain M54.5 [facility] [address] [address] Aug, Low back pain M54.5 [facility] [address] [address] 14 Jul, 2017 [place] [address] [address] 06 Jul, 2017 Low back pain M54.5 [facility] [address] [address] Jun, [place] [address] [address] Jun, Low back pain M54.5 [facility] [address] [address] Jun, Migraine without aura and without status migrainosus, not intractable G43.009 [facility] [address] [address] Jun, Type 1 diabetes mellitus with hyperglyce sebastian E10.65 ; Dysthymia F34.1 and Migraine without aura and without status migrainosus, not intractable G43.009 [facility] [address] [address] Jun, [place] [address] [address] May, Type 1 diabetes mellitus with hyperglyce sebastian E10.65 [place] [address] [address] May, Low back pain M54.5 [place] [address] [address] May, Type 1 diabetes mellitus with hyperglyce sebastian E10.65 [place] [address] [address] Apr, [place] [address] [address] Apr, Chronic kidney disease, stage 4 (severe) N18.4 [facility] [address] [address] Apr, Low back pain M54.5 [facility] [address] [address] March, [facility] [address] [address] March, Low back pain M54.5 [facility] [address] [address] Feb, [place] [address] [address] Feb, [facility] [address] [address] Feb, Low back pain M54.5 [facility] [address] [address] Feb, Low back pain M54.5 [facility] [address] [address] Feb, Migraine without aura and without status migrainosus, not intractable G43.009 [place] [address] [address] Feb, [place] [address] [address] Jan, Low back pain M54.5 [place] [address] [address] Jan, Type 1 diabetes mellitus without complic ations E10.9 ; Anemia D64.9 ; Chronic kidney disease, unspecified N18.9 ; Migraine without aura and without status migrainosus, not intractable G43.009 and Other insomnia G47.09 [place] [address] [address] Jan, [place] [address] [address] Dec, Low back pain M54.5 [place] [address] [address] Dec, [place] [address] [address] Dec, [place] [address] [address] 08 Dec, 2016 Shortness of breath R06.02 ; Type 1 diab etes mellitus without complications E10.9 and Leg swelling M79.89 [place] [address] [address] Nov, Low back pain M54.5 [facility] [address] [address] Nov, Viral syndrome B34.9 [facility] [address] [address] Oct, Low back pain M54.5 [facility] [address] [address] Oct, [facility] [address] [address] Oct, Low back pain M54.5 [facility] [address] [address] Sep, [facility] [address] [address] Sep, Fatigue, unspecified type R53.83 ; Type 1 diabetes mellitus without complications E10.9 and Anemia D64.9 [facility] [address] [address] Sep, Low back pain M54.5 [place] [address] [address] Sep, Type 1 diabetes mellitus with hyperglyce sebastian E10.65 [facility] [address] [address] Aug, Type 1 diabetes mellitus without complic ations E10.9 [facility] [address] [address] Aug, [facility] [address] [address] Aug, [facility] [address] [address] Jul, [facility] [address] [address] 14 Jul, 2016 Low back pain M54.5 [facility] [address] [address] Jul, Hyperkalemia, diminished renal excretion E87.5 [facility] [address] [address] Jul, Hyperkalemia, diminished renal excretion E87.5 [facility] [address] [address] Jun, [facility] [address] [address] Jun, Low back pain M54.5 [place] [address] [address] Jun, Anemia D64.9 ; Autonomic neuropathy G90. 9 and Postural hypotension I95.1 [place] [address] [address] Jun, [place] [address] [address] May, Type 1 diabetes mellitus with complicati ons E10.8 and Anemia D64.9 [place] [address] [address] May, Low back pain M54.5 [place] [address] [address] Apr, [facility] [address] [address] Apr, Low back pain M54.5 [facility] [address] [address] Apr, [facility] [address] [address] Apr, [place] [address] [address] March, Low back pain M54.5 and Other chronic pa in G89.29 [place] [address] [place] [address] [place] [address] March, Type 1 diabetes mellitus without complic ations E10.9 [facility] [address] [place] [id number] [place] [address] March, [facility] [address] [place] [id number] [place] [address] March, [facility] [address] [address] Feb, [facility] [address] [address] Feb, Type 1 diabetes mellitus without complic ations E10.9 [facility] [address] [place] [id number] [place] [address] Feb, Trochanteric bursitis, right hip M70.61 [facility] [address] [address] Jan, [facility] [address] [address] Jan, [facility] [address] [place] [id number] [place] [address] Dec, Type 1 diabetes mellitus with complicati ons E10.8 [facility] [address] [place] [id number] [place] [address] Dec, [facility] [address] [address] Dec, Anemia D64.9 ; Autonomic neuropathy G90. 9 and Postural hypotension I95.1 [facility] [address] [place] [id number] [place] [address] Dec, [facility] [address] [address] Nov, Sore throat J02.9 [facility] [address] [place] [id number] [place] [address] Nov, Type 1 diabetes mellitus with complicati ons E10.8 [facility] [address] [place] [id number] [place] [address] 18 Nov, 2015 Type 1 diabetes mellitus with diabetic n ephropathy E10.21 ; Proteinuria, unspecified R80.9 and Chronic kidney disease, unspecified N18.9 [facility] [address] [place] [id number] [place] [address] 14 Nov, 2015 [facility] [address] [address] Nov, Trochanteric bursitis, right hip M70.61 [facility] [address] [address] Nov, [facility] [address] [address] Oct, [facility] [address] [address] Oct, [facility] [address] [address] Oct, [facility] [address] [address] Sep, [facility] [address] [address] Sep, [facility] [address] [address] Sep, Type 2 diabetes mellitus with complicati on E11.8 and Right hip pain M25.551 [facility] [address] [address] Sep, [facility] [address] [address] Aug, [facility] [address] [address] Aug, [facility] [address] [address] Aug, [facility] [address] [address] Aug, Type 1 diabetes mellitus without complic ations E10.9 [facility] [address] [address] Jul, [facility] [address] [address] Jul, [facility] [address] [address] Jul, [facility] [address] [address] Jun, [facility] [address] [address] Jun, [facility] [address] [address] Jun, [facility] [address] [address] Jun, [facility] [address] [address] Jun, [facility] [address] [address] Jun, Diabetes mellitus without mention of com plication, type I [juvenile type], not stated as uncontrolled 250.01 [facility] [address] [address] May, [facility] [address] [address] May, [facility] [address] [address] May, [facility] [address] [address] May, Autonomic neuropathy 337.9 ; Postural hy potension 458.0 and Anemia 285.9 [facility] [address] [address] May, [facility] [address] [place] [address] 24 Apr, 2015 [facility] [address] [facility] [id number] [facility] [address] Apr, [facility] [address] [id number] [place] [address] Apr, [facility] [address] [id number] [place] [address] Apr, [facility] [address] [id number] [place] [address] Apr, [facility] [address] [id number] [place] [address] March, [facility] [address] [id number] [place] [address] March, [facility] [address] [id number] [place] [address] March, [facility] [address] [id number] [place] [address] March, [facility] [address] [id number] [place] [address] March, [facility] [address] [id number] [place] [address] Feb, [facility] [address] [id number] [place] [address] Feb, [facility] [address] [id number] [place] [address] Feb, [facility] [address] [id number] [place] [address] 30 Jan, 2015 [facility] [address] [id number] [place] [address] Jan, [facility] [address] [id number] [place] [address] Jan, [facility] [address] [id number] [place] [address] Jan, [facility] [address] [id number] [place] [address] Jan, [facility] [address] [id number] [place] [address] Jan, [facility] [address] [id number] [place] [address] Jan, [facility] [address] [id number] [place] [address] Jan, [facility] [address] [id number] [place] [address] Jan, [facility] [address] [id number] [place] [address] Jan, [facility] [address] [id number] [place] [address] Jan, [facility] [address] [id number] [place] [address] Jan, [facility] [address] [id number] [place] [address] Jan, [facility] [address] [id number] [place] [address] Dec, 2014 [facility] [address] [id number] [place] [address] Dec, 2014 [facility] [address] [id number] [place] [address] Dec, 2014 [facility] [address] [id number] [place] [address] Dec, 2014 [facility] [address] [id number] [place] [address] Dec, 2014 [facility] [address] [id number] [place] [address] Dec, 2014 [facility] [address] [id number] [place] [address] Dec, 2014 [facility] [address] [id number] [place] [address] Dec, [facility] [address] [id number] [place] [address] Nov, [facility] [address] [id number] [place] [address] Nov, [facility] [address] [id number] [place] [address] Nov, [facility] [facility] [address] [id number] [place] [address] Nov, [facility] [place] [facility] [address] [id number] [place] [address] Nov, [facility] [place] [facility] [address] [id number] [place] [address] Nov, [facility] [place] [facility] [address] [id number] [place] [address] Nov, [facility] [place] [facility] [address] [id number] [place] [address] Nov, [facility] [place] [facility] [address] [id number] [place] [address] Nov, [facility] [place] [facility] [address] [id number] [place] [address] Oct, [facility] [place] [facility] [address] [id number] [place] [address] Oct, [facility] [place] [facility] [address] [id number] [place] [address] Oct, [facility] [place] [facility] [address] [id number] [place] [address] Oct, [facility] [place] [facility] [address] [id number] [place] [address] Oct, [facility] [place] [facility] [address] [id number] [place] [address] Oct, [facility] [place] [facility] [address] [id number] [place] [address] Oct, [facility] [place] [facility] [address] [id number] [place] [address] Oct, [facility] [place] [facility] [address] [id number] [place] [address] Oct, [facility] [place] [facility] [address] [id number] [place] [address] Oct, [facility] [place] [facility] [address] [id number] [place] [address] Oct, [facility] [place] [facility] [address] [id number] [place] [address] Oct, [facility] [place] [facility] [address] [id number] [place] [address] Oct, [facility] [place] [facility] [address] [id number] [place] [address] Oct, [facility] [place] [facility] [address] [id number] [place] [address] Sep, [facility] [place] [facility] [address] [id number] [place] [address] Sep, [facility] [place] [facility] [address] [id number] [place] [address] Sep, [facility] [place] [facility] [address] [id number] [place] [address] Sep, [facility] [place] [facility] [address] [id number] [place] [address] Aug, [facility] [place] [facility] [address] [id number] [place] [address] Aug, [facility] [place] [facility] [address] [id number] [place] [address] Aug, [facility] [place] [facility] [id number] [place] [address] Aug, [facility] [place] [facility] [address] [id number] [place] [address] Aug, [facility] [place] [facility] [address] [id number] [place] [address] Aug, [facility] [place] [facility] [address] [facility] [id number] [place] [address] Aug, 2013 [facility] [place] [facility] [address] [facility] [id number] [place] [address] Aug, 2013 [facility] [place] [facility] [address] [id number] [place] [address] Aug, [facility] [place] [facility] [address] [id number] [place] [address] Aug, 2013 [facility] [place] [facility] [address] [facility] [id number] [place] [address] 29 Jul, 2013 [facility] [place] [facility] [address] [id number] [place] [address] 29 Jul, 2013 [facility] [place] [facility] [address] [id number] [place] [address] 29 Jul, 2013 [facility] [place] [facility] [address] [id number] [place] [address] 29 Jul, 2013 [facility] [place] [facility] [address] [id number] [place] [address] 22 Jul, 2013 [facility] [place] [facility] [address] [id number] [place] [address] 22 Jul, 2013 [facility] [place] [facility] [address] [id number] [place] [address] 19 Jul, 2013 [facility] [place] [facility] [address] [id number] [place] [address] 19 Jul, 2013 [facility] [place] [facility] [address] [id number] [place] [address] 11 Jul, 2013 [facility] [place] [facility] [address] [id number] [place] [address] 11 Jul, 2013 [facility] [place] [facility] [address] [id number] [place] [address] 10 Jul, 2013 [facility] [place] [facility] [address] [id number] [place] [address] 10 Jul, 2013 [facility] [place] [facility] [address] [id number] [place] [address] 08 Sep, 2013 [facility] [place] [facility] [address] [id number] [place] [address] 08 Jul, 2013 [facility] [place] [facility] [address] [facility] [id number] [facility] [address] Jul, 2013 [facility] [place] [facility] [address] [id number] [facility] [address] Jul, 2013 [facility] [place] [facility] [address] [facility] [id number] [place] [address] Jul, 2013 [facility] [place] [facility] [address] [facility] [id number] [place] [address] Jul, [facility] [place] [facility] [address] [id number] [place] [address] Jun, [facility] [place] [facility] [address] [id number] [place] [address] Jun, [facility] [place] [facility] [address] [id number] [place] [address] Jun, [facility] [place] [facility] [address] [facility] [id number] [place] [address] Jun, [facility] [place] [facility] [address] [id number] [place] [address] Jun, [facility] [place] [facility] [address] [id number] [place] [address] Jun, [facility] [place] [facility] [address] [id number] [place] [address] Jun, [facility] [place] [facility] [address] [facility] [id number] [place] [address] Jun, [facility] [place] [facility] [address] [id number] [place] [address] Jun, [facility] [place] [facility] [address] [id number] [place] [address] Jun, [facility] [place] [facility] [address] [id number] [place] [address] Jun, [facility] [place] [facility] [address] [id number] [place] [address] Jun, [facility] [place] [facility] [address] [facility] [id number] [place] [address] Jun, [facility] [place] [facility] [address] [facility] [id number] [place] [address] Jun, [facility] [place] [facility] [address] [id number] [place] [address] Jun, [facility] [place] [facility] [address] [facility] [id number] [place] [address] May, [facility] [place] [facility] [address] [facility] [id number] [place] [address] May, [facility] [place] [facility] [address] [id number] [place] [address] May, [facility] [place] [facility] [address] [id number] [place] [address] May, [facility] [place] [facility] [address] [id number] [place] [address] May, [facility] [place] [facility] [address] [id number] [place] [address] May, [facility] [place] [facility] [address] [id number] [place] [address] May, [facility] [place] [facility] [address] [id number] [place] [address] May, [facility] [place] [facility] [address] [id number] [place] [address] Apr, [facility] [place] [facility] [address] [facility] [id number] [place] [address] Apr, [facility] [place] [facility] [address] [id number] [place] [address] Apr, [facility] [place] [facility] [address] [id number] [place] [address] Apr, [facility] [place] [facility] [address] [id number] [place] [address] Apr, [facility] [place] [facility] [address] [facility] [id number] [place] [address] Apr, [facility] [place] [facility] [address] [facility] [id number] [facility] [address] Apr, [facility] [place] [facility] [address] [facility] [id number] [place] [address] Apr, [facility] [place] [facility] [address] [facility] [id number] [place] [address] Apr, [facility] [place] [facility] [address] [facility] [id number] [place] [address] Apr, [facility] [place] [facility] [address] [id number] [place] [address] Apr, [facility] [place] [facility] [address] [id number] [place] [address] Apr, [facility] [place] [facility] [address] [id number] [place] [address] Apr, [facility] [place] [facility] [address] [id number] [place] [address] Apr, [facility] [place] [facility] [address] [id number] [place] [address] Apr, [facility] [place] [facility] [address] [id number] [place] [address] Apr, [facility] [place] [facility] [address] [id number] [place] [address] Apr, [facility] [place] [facility] [address] [facility] [id number] [place] [address] Apr, [facility] [place] [facility] [address] [id number] [place] [address] March, [facility] [place] [facility] [address] [facility] [id number] [place] [address] March, [facility] [place] [facility] [address] [id number] [place] [address] March, [facility] [place] [facility] [address] [id number] [facility] [address] March, [facility] [place] [facility] [address] [id number] [place] [address] March, [facility] [place] [facility] [address] [id number] [place] [address] March, [facility] [place] [facility] [address] [id number] [place] [address] March, [facility] [place] [facility] [address] [id number] [place] [address] March, [facility] [place] [facility] [address] [id number] [place] [address] March, [facility] [place] [facility] [address] [id number] [place] [address] Feb, [facility] [place] [facility] [address] [id number] [place] [address] Feb, [facility] [place] [facility] [address] [id number] [place] [address] Feb, [facility] [place] [facility] [address] [id number] [place] [address] Feb, [facility] [place] [facility] [address] [id number] [place] [address] Feb, [facility] [place] [facility] [address] [id number] [place] [address] Feb, [facility] [place] [facility] [address] [id number] [place] [address] Feb, [facility] [place] [facility] [address] [id number] [place] [address] Feb, [facility] [place] [facility] [address] [id number] [place] [address] Feb, [facility] [place] [facility] [address] [id number] [place] [address] Feb, [facility] [place] [facility] [address] [id number] [place] [address] Feb, [facility] [place] [facility] [address] [facility] [id number] [place] [address] Feb, [facility] [place] [facility] [address] [id number] [place] [address] Feb, [facility] [place] [facility] [address] [id number] [place] [address] Jan, [facility] [place] [facility] [address] [id number] [place] [address] Jan, [facility] [place] [facility] [address] [id number] [place] [address] Jan, [facility] [place] [facility] [address] [id number] [place] [address] Jan, [facility] [place] [facility] [address] [id number] [place] [address] Jan, [facility] [place] [facility] [address] [id number] [place] [address] Jan, [facility] [place] [facility] [address] [id number] [place] [address] Jan, [facility] [place] [facility] [address] [id number] [place] [address] Jan, [facility] [place] [facility] [address] [id number] [place] [address] Dec, [facility] [place] [facility] [address] [id number] [place] [address] Dec, [facility] [place] [facility] [address] [id number] [place] [address] Dec, [facility] [place] [facility] [address] [id number] [place] [address] Dec, [facility] [place] [facility] [address] [id number] [place] [address] Dec, [facility] [place] [facility] [address] [id number] [place] [address] Dec, [facility] [place] [facility] [address] [id number] [place] [address] Dec, [facility] [place] [facility] [address] [id number] [place] [address] Dec, [facility] [place] [facility] [address] [id number] [place] [address] Dec, [facility] [place] [facility] [address] [id number] [place] [address] Dec, [facility] [place] [facility] [address] [id number] [place] [address] Nov, [facility] [place] [facility] [address] [id number] [place] [address] Nov, [facility] [place] [facility] [address] [id number] [place] [address] Nov, [facility] [place] [facility] [address] [id number] [place] [address] Nov, [facility] [place] [facility] [address] [id number] [place] [address] Nov, [facility] [place] [facility] [address] [id number] [place] [address] Nov, [facility] [place] [facility] [address] [id number] [place] [address] Nov, [facility] [place] [facility] [address] [id number] [place] [address] Nov, [facility] [place] [facility] [address] [id number] [place] [address] Nov, [facility] [place] [facility] [address] [id number] [place] [address] Nov, [facility] [place] [facility] [address] [id number] [place] [address] Oct, [facility] [place] [facility] [address] [id number] [place] [address] Oct, [facility] [place] [facility] [address] [id number] [place] [address] Oct, [facility] [place] [facility] [address] [id number] [place] [address] 18 Oct, 2013 [facility] [place] [facility] [address] [id number] [place] [address] 17 Oct, 2013 [facility] [place] [facility] [address] [id number] [place] [address] 17 Oct, 2013 [facility] [place] [facility] [address] [id number] [place] [address] 16 Oct, 2013 [facility] [place] [facility] [address] [id number] [place] [address] 16 Oct, 2013 [facility] [place] [facility] [address] [id number] [place] [address] Oct, [facility] [place] [facility] [address] [id number] [place] [address] Oct, [facility] [place] [facility] [address] [id number] [place] [address] 04 Oct, 2013 [facility] [place] [facility] [address] [id number] [place] [address] 04 Oct, 2013 [facility] [place] [facility] [address] [id number] [place] [address] 04 Oct, 2013 [facility] [place] [facility] [address] [id number] [place] [address] 04 Oct, 2013 [facility] [place] [facility] [address] [id number] [place] [address] Sep, [facility] [place] [facility] [address] [id number] [place] [address] 27 Sep, 2013 [facility] [place] [facility] [address] [id number] [place] [address] 18 Sep, 2013 [facility] [place] [facility] [address] [id number] [place] [address] 18 Sep, 2013 [facility] [place] [facility] [address] [id number] [place] [address] 13 Sep, 2013 [facility] [place] [facility] [address] [id number] [place] [address] Sep, [facility] [place] [facility] [address] [id number] [place] [address] Aug, 2012 [facility] [place] [facility] [address] [id number] [place] [address] 31 Aug, 2012 [facility] [place] [facility] [address] [id number] [place] [address] 17 Aug, 2012 [facility] [place] [facility] [address] [id number] [place] [address] 17 Aug, 2012 [facility] [place] [facility] [address] [facility] [id number] [place] [address] 10 Aug, 2012 [facility] [place] [facility] [address] [id number] [place] [address] 10 Aug, 2012 [facility] [place] [facility] [address] [id number] [place] [address] 07 Aug, 2013 [facility] [place] [facility] [address] [id number] [place] [address] 02 Aug, 2012 [facility] [place] [facility] [address] [id number] [place] [address] 02 Aug, 2013 [facility] [place] [facility] [address] [id number] [place] [address] 25 Sep, 2012 [facility] [place] [facility] [address] [id number] [place] [address] 23 Sep, 2012 [facility] [place] [facility] [address] [id number] [place] [address] 21 Sep, 2012 [facility] [place] [facility] [address] [id number] [place] [address] 20 Sep, 2012 [facility] [place] [facility] [address] [id number] [place] [address] 18 Sep, 2012 [facility] [place] [facility] [address] [id number] [place] [address] 17 Sep, 2012 [facility] [place] [facility] [address] [id number] [place] [address] 16 Sep, 2012 [facility] [place] [facility] [address] [id number] [place] [address] 11 Jul, 2012 [facility] [place] [facility] [address] [id number] [place] [address] Jul, 2012 [facility] [place] [facility] [address] [facility] [id number] [place] [address] Jul, 2012 [facility] [place] [facility] [address] [id number] [place] [address] Jul, 2012 [facility] [place] [facility] [address] [facility] [id number] [facility] [address] Jul, 2012 [facility] [place] [facility] [address] [facility] [id number] [place] [address] Jun, [facility] [place] [facility] [address] [id number] [place] [address] Jun, [facility] [place] [facility] [address] [id number] [place] [address] Jun, [facility] [place] [facility] [address] [id number] [place] [address] Jun, [facility] [place] [facility] [address] [facility] [id number] [place] [address] Jun, [facility] [place] [facility] [address] [id number] [place] [address] Jun, [facility] [place] [facility] [address] [id number] [place] [address] Jun, [facility] [place] [facility] [address] [id number] [place] [address] Jun, [facility] [place] [facility] [address] [facility] [id number] [place] [address] Jun, [facility] [place] [facility] [address] [id number] [place] [address] May, [facility] [place] [facility] [address] [id number] [place] [address] May, [facility] [place] [facility] [address] [id number] [place] [address] May, [facility] [place] [facility] [address] [id number] [place] [address] May, [facility] [place] [facility] [address] [facility] [id number] [place] [address] May, [facility] [place] [facility] [address] [id number] [place] [address] May, [facility] [place] [facility] [address] [id number] [place] [address] May, [facility] [place] [facility] [address] [facility] [id number] [place] [address] March, [facility] [place] [facility] [address] [id number] [place] [address] March, [facility] [place] [facility] [address] [id number] [place] [address] March, [facility] [place] [facility] [address] [id number] [place] [address] Dec, [facility] [place] [facility] [address] [id number] [place] [address] Nov, [facility] [place] [facility] [address] [id number] [place] [address] Aug, [facility] [place] [facility] [address] [id number] [place] [address] Aug, [facility] [place] [facility] [address] [id number] [place] [address] Jun, [facility] [place] [facility] [address] [id number] [place] [address] Jun, [facility] [place] [facility] [address] [facility] [id number] [place] [address] Jun, [facility] [place] [facility] [address] [id number] [place] [address] Jun, [facility] [place] [facility] [address] [id number] [place] [address] May, [facility] [place] [facility] [address] [id number] [place] [address] May, [facility] [place] [facility] [address] [id number] [place] [address] May, [facility] [place] [facility] [address] [id number] [place] [address] May, [facility] [place] [facility] [address] [id number] [place] [address] May, [facility] [place] [facility] [address] [id number] [place] [address] May, [facility] [place] [facility] [address] [facility] [id number] [place] [address] May, [facility] [place] [facility] [address] [id number] [place] [address] Apr, [facility] [place] [facility] [address] [id number] [place] [address] Apr, [facility] [place] [facility] [address] [id number] [place] [address] Apr, [facility] [place] [facility] [address] [id number] [place] [address] Apr, [facility] [place] [facility] [address] [id number] [place] [address] March, [facility] [place] [facility] [address] [id number] [place] [address] March, [facility] [place] [facility] [address] [id number] [place] [address] March, [facility] [place] [facility] [address] [id number] [place] [address] March, [facility] [place] [facility] [address] [id number] [place] [address] March, [facility] [place] [facility] [address] [id number] [place] [address] March, [facility] [place] [facility] [address] [id number] [place] [address] March, [facility] [place] [facility] [address] [id number] [place] [address] March, [facility] [place] [facility] [address] [id number] [place] [address] March, [facility] [place] [facility] [address] [id number] [place] [address] Feb, [facility] [place] [facility] [address] [id number] [place] [address] Feb, [facility] [place] [facility] [address] [id number] [place] [address] Jan, [facility] [place] [facility] [address] [id number] [place] [address] Jan, [facility] [place] [facility] [address] [id number] [place] [address] Jan, [facility] [address] [id number] [place] [address] Jan, [facility] [address] [id number] [place] [address] Dec, [facility] [address] [id number] [place] [address] Dec, [facility] [address] [id number] [place] [address] Dec, [facility] [address] [id number] [place] [address] Nov, [facility] [address] [id number] [place] [address] Oct, [facility] [address] [id number] [place] [address] 15 Oct, 2011 [facility] [address] [id number] [place] [address] 15 Oct, 2011 [facility] [address] [id number] [place] [address] 14 Oct, 2011 [facility] [address] [id number] [place] [address] 14 Oct, 2011 [facility] [address] [id number] [place] [address] 12 Oct, 2011 [facility] [address] [id number] [place] [address] Oct, [facility] [address] [id number] [place] [address] Oct, [facility] [id number] [place] [address] Sep, [facility] [address] [id number] [place] [address] Sep, [facility] [address] [id number] [place] [address] Sep, [facility] [address] [id number] [place] [address] Sep, [facility] [id number] [place] [address] Sep, [facility] [address] [id number] [place] [address] Sep, [facility] [id number] [place] [address] Sep, [facility] [address] [id number] [place] [address] Sep, [facility] [id number] [place] [address] Sep, [facility] [address] [id number] [place] [address] 24 Aug, 2011 [facility] [address] [id number] [place] [address] 15 Jul, 2011 [facility] [address] [id number] [place] [address] Oct, [facility] [address] [id number] [place] [address] Oct, [facility] [address] [id number] [place] [address] Oct, IMMUNIZATIONS No Known Immunizations SOCIAL HISTORY [...]
--- OUTSIDE RECORDS SUMMARY | 2020-03-19 06:01 | XMS REPORT ---
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 48808232 Problem Chronic kidney disease, unspecified N18.9 Active 086967602 Problem Anemia, unspecified D64.9 Active 937596716 Problem Irritable bowel K58.9 Active 1074 3008 Problem Irritable bowel syndrome with diarrhea K58.0 Active 985669891 Problem Claudication I73.9 Active 6854641 6 Problem Intractable migraine without aura and with status migr ainosus G43.011 Active 310532083 Problem Peritoneal dialysis status Z99.2 Act moody 744632988 Problem Migraine without aura and without status migrain osus, not intractable G43.009 Active 479766893 Problem Other insomnia G47.09 Active 59030 2000 Problem Dysthymia F34.1 Active 82131666 Problem Chronic kidney disease, stage 4 (severe) N18.4 Active 504076917 Problem Migraine with aura and without status migrainosu s, not intractable G43.109 Active 6411124 Problem Autonomic neuropathy G90.9 Active 420907319 Problem Type 1 diabetes mellitus with complications E10.8 Active 142154891 Problem Menorrhagia with regular cycle N92.0 Active 694343700 Problem Other chronic pain G89.29 Active 8 7071029 Problem Lymphedema I89.0 Active 334391354 Problem Essential hypertension I10 Active 99346536 Problem Moderate episode of recurrent major depressive disorder F33.1 Active 559982991 Problem Type 1 diabetes mellitus without complications E10 .9 Active 128705921 Problem Primary insomnia F51.01 Active 397 2004 Problem Migraine G43.909 Active 79861775 Problem Low back pain M54.5 Active 811850 009 Problem Diastolic dysfunction I51.89 Active 1589602 Problem ESRF (end stage renal failure) N18.6 Active 29239820 Problem Restless legs G25.81 Active 943221 08 Problem Hyperthyroidism E05.90 Active 3448 6009 ALLERGIES No Information ENCOUNTERS Encounter Location Date Diagnosis [place] [id number] [address] Jan, [facility] [address] [id number] Jan, [facility] [address] [id number] Dec, Caries K02.9 and Dental examination Z01. 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 ; Migraine without aura and without status migrainosus, not intractable G43.009 ; Chronic kidney disease, stage 4 (severe) N18.4 ; Claudication I73.9 ; Peritoneal dialysis status Z99.2 ; Diastolic dysfunction I51.89 ; Primary insomnia F51.01 and Burn T30.0 [place] [address] [address] Sep, Moderate episode of recurrent major depr essive disorder F33.1 and Primary insomnia F51.01 [place] [address] [address] Aug, Hyperthyroidism E05.90 [place] [address] [address] May, Restless legs G25.81 [place] [address] [address] May, [place] [address] [address] May, [facility] [address] [address] May, Type 1 diabetes mellitus with hypoglycem ia without coma E10.649 ; ESRF (end stage renal failure) N18.6 ; Leg cramps R25.2 ; Restless legs G25.81 and Low back pain M54.5 [facility] [address] [address] Apr, Low back pain M54.5 [facility] [address] [address] Apr, [facility] [address] [address] March, Low back pain M54.5 [facility] [address] [address] March, [facility] [address] [address] Feb, Low back pain M54.5 [facility] [address] [address] Jan, Low back pain M54.5 [facility] [address] [address] Jan, [facility] [address] [address] Jan, [facility] [address] [address] Jan, [facility] [address] [address] Dec, Type 1 diabetes mellitus with hypoglycem ia without coma E10.649 and Low back pain M54.5 [facility] [address] [address] Dec, Low back pain M54.5 [facility] [address] [address] 13 Dec, 2018 Diastolic dysfunction I51.89 ; Essential hypertension I10 and Chronic kidney disease, stage 4 (severe) N18.4 [place] [address] [address] 11 Dec, 2018 RUQ abdominal pain R10.11 ; Type 1 diabe camryn mellitus without complications E10.9 ; Therapeutic drug monitoring Z51.81 ; Migraine with aura and without status migrainosus, not intractable G43.109 and Intractable migraine without aura and with status migrainosus G43.011 [place] [address] [address] Nov, Low back pain M54.5 [place] [address] [address] Nov, [address] [address] 14 Nov, 2018 Intractable migraine without aura and wi th status migrainosus G43.011 ; Lymphedema I89.0 ; Pain in right shoulder M25.511 ; Other chronic pain G89.29 ; Irritable bowel syndrome with diarrhea K58.0 ; Type 1 diabetes mellitus without complications E10.9 and Essential hypertension I10 [place] [address] [address] Oct, Low back pain M54.[address] [address] Oct, [address] [address] Oct, Orthostatic hypotension I95.1 ; Shortnes s of breath R06.02 ; Leg swelling M79.89 ; Type 1 diabetes mellitus without complications E10.9 and Claudication I73.[address] [address] Sep, Low back pain M54.[address] [address] Sep, Low back pain M54.5 [facility] [address] [address] Aug, [facility] [address] [address] Aug, Migraine without aura and without status migrainosus, not intractable G43.009 [facility] [address] [address] Aug, Low back pain M54.5 [facility] [address] [facility] [id number] [place] [address] Aug, Acute rhinosinusitis J01.90 and Sore throat J02.9 [facility] [address] [address] 28 Jul, 2018 Low back pain M54.5 [facility] [address] [address] Jul, Migraine without aura and without status migrainosus, not intractable G43.009 [facility] [address] [address] Jun, Low back pain M54.5 [facility] [address] [address] Jun, [facility] [address] [address] Jun, Orthostatic hypotension I95.1 ; Shortnes s of breath R06.02 ; Type 1 diabetes mellitus without complications E10.9 and Leg swelling M79.89 [facility] [address] [address] Jun, Low back pain M54.5 [facility] [address] [address] Jun, [facility] [address] [address] May, Migraine without aura and without status migrainosus, not intractable G43.009 [place] [address] [address] May, Migraine without aura and without status migrainosus, not intractable G43.009 ; Restless legs syndrome G25.81 ; Leg cramps R25.2 ; Chronic kidney disease, unspecified N18.9 ; Postural hypotension I95.1 ; Diarrhea, unspecified type R19.7 and Cough R05 [place] [address] [address] May, [place] [address] [address] May, [place] [address] [address] May, Orthostatic hypotension I95.1 ; Shortnes s of breath R06.02 ; Type 1 diabetes mellitus with complications E10.8 and Leg swelling M79.89 [place] [address] [address] May, [place] [address] [address] May, Low back pain M54.5 [place] [address] [address] Apr, Type 1 diabetes mellitus with hyperglyce sebastian E10.65 [place] [address] [address] Apr, Low back pain M54.5 [place] [address] [address] Apr, [place] [address] [address] Apr, [place] [address] [address] March, [place] [address] [address] March, Low back pain M54.5 [place] [address] [address] March, [place] [address] [address] Feb, [place] [address] [address] Feb, Low back pain M54.5 [place] [address] [address] Jan, Restless legs syndrome G25.81 [place] [address] [address] Jan, Low back pain M54.5 [place] [address] [address] Jan, [place] [address] [address] Jan, Type 1 diabetes mellitus without complic ations E10.9 ; Low back pain M54.5 ; Cough R05 ; Diarrhea, unspecified type R19.7 ; Migraine without aura and without status migrainosus, not intractable G43.009 and Uses control Z30.9 [place] [address] [address] Dec, Low back pain M54.5 [place] [address] [address] Dec, [place] [address] [address] Nov, Well woman exam Z01.419 ; Menorrhagia wi th regular cycle N92.0 ; Vaginal dryness N89.8 and Migraine with aura and without status migrainosus, not intractable G43.109 [place] [address] [address] Nov, [place] [address] [address] Nov, Low back pain M54.5 [facility] [address] [address] Oct, Low back pain M54.5 [facility] [address] [address] Oct, Migraine without aura and without status migrainosus, not intractable G43.009 [facility] [address] [address] Sep, Low back pain M54.5 [facility] [address] [address] Sep, [facility] [address] [address] Sep, Migraine without aura and without status migrainosus, not intractable G43.009 [facility] [address] [address] Sep, Type 1 diabetes mellitus with hypoglycem ia without coma E10.649 ; Anemia D64.9 ; Migraine without aura and without status migrainosus, not intractable G43.009 ; Chronic kidney disease, unspecified N18.9 ; Autonomic neuropathy G90.9 and Postural hypotension I95.1 [facility] [address] [address] Sep, Low back pain M54.5 [facility] [address] [address] Aug, Low back pain M54.5 [facility] [address] [address] 14 Jul, 2017 [facility] [address] [address] Jul, Low back pain M54.5 [facility] [address] [address] Jun, [facility] [address] [address] Jun, Low back pain M54.5 [facility] [address] [address] Jun, Migraine without aura and without status migrainosus, not intractable G43.009 [facility] [address] [address] Jun, Type 1 diabetes mellitus with hyperglyce sebastian E10.65 ; Dysthymia F34.1 and Migraine without aura and without status migrainosus, not intractable G43.009 [facility] [address] [address] Jun, [facility] [address] [address] May, Type 1 diabetes mellitus with hyperglyce sebastian E10.65 [facility] [address] [address] May, Low back pain M54.5 [facility] [address] [address] May, Type 1 diabetes mellitus with hyperglyce sebastian E10.65 [facility] [address] [address] Apr, [facility] [address] [address] Apr, Chronic kidney disease, stage 4 (severe) N18.4 [facility] [address] [address] Apr, Low back pain M54.5 [facility] [address] [address] March, [facility] [address] [address] March, Low back pain M54.5 [facility] [address] [address] Feb, [facility] [address] [address] Feb, [facility] [address] [address] Feb, Low back pain M54.5 [facility] [address] [address] Feb, Low back pain M54.5 [facility] [address] [address] Feb, Migraine without aura and without status migrainosus, not intractable G43.009 [facility] [address] [address] Feb, [facility] [address] [address] Jan, Low back pain M54.5 [facility] [address] [address] Jan, Type 1 diabetes mellitus without complic ations E10.9 ; Anemia D64.9 ; Chronic kidney disease, unspecified N18.9 ; Migraine without aura and without status migrainosus, not intractable G43.009 and Other insomnia G47.09 [place] [address] [address] Jan, [facility] [address] [address] Dec, Low back pain M54.5 [facility] [address] [address] Dec, [facility] [address] [address] Dec, [facility] [address] [address] 08 Dec, 2016 Shortness of breath R06.02 ; Type 1 diab etes mellitus without complications E10.9 and Leg swelling M79.89 [facility] [address] [address] Nov, Low back pain M54.5 [facility] [address] [address] Nov, Viral syndrome B34.9 [facility] [address] [address] Oct, Low back pain M54.5 [facility] [address] [address] Oct, [facility] [address] [address] Oct, Low back pain M54.5 [facility] [address] [address] Sep, [place] [address] [address] Sep, Fatigue, unspecified type R53.83 ; Type 1 diabetes mellitus without complications E10.9 and Anemia D64.9 [place] [address] [address] Sep, Low back pain M54.5 [place] [address] [address] Sep, Type 1 diabetes mellitus with hyperglyce sebastian E10.65 [place] [address] [address] Aug, Type 1 diabetes mellitus without complic ations E10.9 [place] [address] [address] Aug, [place] [address] [address] Aug, [place] [address] [address] Jul, [place] [address] [address] 14 Jul, 2016 Low back pain M54.5 [place] [address] [address] Jul, Hyperkalemia, diminished renal excretion E87.5 [facility] [address] [address] Jul, Hyperkalemia, diminished renal excretion E87.5 [facility] [address] [address] Jun, [facility] [address] [address] Jun, Low back pain M54.5 [facility] [address] [address] Jun, Anemia D64.9 ; Autonomic neuropathy G90. 9 and Postural hypotension I95.1 [place] [address] [address] Jun, [place] [address] [address] May, Type 1 diabetes mellitus with complicati ons E10.8 and Anemia D64.9 [place] [address] [address] May, Low back pain M54.5 [place] [address] [address] Apr, [place] [address] [address] Apr, Low back pain M54.5 [place] [address] [address] Apr, [place] [address] [address] Apr, [place] [address] [address] March, Low back pain M54.5 and Other chronic pa in G89.29 [facility] [address] [address] March, Type 1 diabetes mellitus without complic ations E10.9 [facility] [address] [place] [id number] [place] [address] March, [facility] [address] [address] March, [facility] [address] [address] Feb, [facility] [address] [address] Feb, Type 1 diabetes mellitus without complic ations E10.9 [facility] [address] [address] Feb, Trochanteric bursitis, right hip M70.61 [facility] [address] [address] Jan, [facility] [address] [address] Jan, [facility] [address] [address] Dec, Type 1 diabetes mellitus with complicati ons E10.8 [facility] [address] [address] Dec, [facility] [address] [address] Dec, Anemia D64.9 ; Autonomic neuropathy G90. 9 and Postural hypotension I95.1 [facility] [address] [address] Dec, [facility] [address] [address] Nov, Sore throat J02.9 [facility] [address] [address] Nov, Type 1 diabetes mellitus with complicati ons E10.8 [facility] [address] [address] Nov, Type 1 diabetes mellitus with diabetic n ephropathy E10.21 ; Proteinuria, unspecified R80.9 and Chronic kidney disease, unspecified N18.9 [facility] [address] [address] Nov, [facility] [address] [address] Nov, Trochanteric bursitis, right hip M70.61 [facility] [address] [address] Nov, [facility] [address] [address] Oct, [facility] [address] [address] Oct, [facility] [address] [address] Oct, [facility] [address] [address] Sep, [facility] [address] [address] Sep, [facility] [address] [address] Sep, Type 2 diabetes mellitus with complicati on E11.8 and Right hip pain M25.551 [facility] [address] [address] Sep, [facility] [address] [address] Aug, [facility] [address] [address] Aug, [facility] [address] [address] Aug, [facility] [address] [address] Aug, Type 1 diabetes mellitus without complic ations E10.9 [facility] [address] [place] [id number] [place] [address] 16 Jul, 2015 [facility] [address] [address] Jul, [facility] [address] [address] Jul, [facility] [address] [address] Jun, [facility] [address] [address] Jun, [facility] [address] [address] Jun, [facility] [address] [address] Jun, [facility] [address] [address] Jun, [facility] [address] [address] Jun, Diabetes mellitus without mention of com plication, type I [juvenile type], not stated as uncontrolled 250.01 [facility] [address] [place] [id number] [place] [address] May, [facility] [address] [address] May, [facility] [address] [address] May, [facility] [address] [address] May, Autonomic neuropathy 337.9 ; Postural hy potension 458.0 and Anemia 285.9 [facility] [address] [place] [id number] [place] [address] May, [facility] [address] [address] Apr, [facility] [address] [place] [address] Apr, [facility] [address] [facility] [id number] [place] [address] Apr, [facility] [address] [id number] [place] [address] Apr, [facility] [address] [id number] [place] [address] Apr, [facility] [address] [id number] [place] [address] March, [facility] [address] [id number] [place] [address] March, [facility] [address] [id number] [place] [address] March, [facility] [address] [id number] [place] [address] March, [facility] [address] [id number] [place] [address] March, [facility] [address] [id number] [place] [address] Feb, [facility] [address] [id number] [place] [address] Feb, [facility] [address] [id number] [place] [address] Feb, [facility] [address] [id number] [place] [address] 30 Jan, 2015 [facility] [address] [id number] [place] [address] Jan, [facility] [address] [id number] [place] [address] Jan, [facility] [address] [id number] [place] [address] Jan, [facility] [address] [id number] [place] [address] Jan, [facility] [address] [id number] [place] [address] Jan, [facility] [address] [id number] [place] [address] Jan, [facility] [address] [id number] [place] [address] Jan, [facility] [address] [id number] [place] [address] Jan, [facility] [address] [id number] [place] [address] Jan, [facility] [address] [id number] [place] [address] Jan, [facility] [address] [id number] [place] [address] Jan, [facility] [address] [id number] [place] [address] Jan, [facility] [address] [id number] [place] [address] Dec, 2014 [facility] [address] [id number] [place] [address] Dec, 2014 [facility] [address] [id number] [place] [address] Dec, 2014 [facility] [address] [id number] [place] [address] Dec, 2014 [facility] [address] [id number] [place] [address] Dec, 2014 [facility] [address] [id number] [place] [address] Dec, 2014 [facility] [address] [id number] [place] [address] Dec, 2014 [facility] [address] [id number] [place] [address] Dec, 2014 [facility] [address] [id number] [place] [address] Nov, [facility] [address] [id number] [place] [address] Nov, [facility] [address] [id number] [place] [address] Nov, [facility] [address] [id number] [place] [address] Nov, [facility] [address] [id number] [place] [address] Nov, [facility] [address] [id number] [place] [address] Nov, [facility] [address] [id number] [place] [address] Nov, [facility] [address] [id number] [place] [address] Nov, [facility] [address] [id number] [place] [address] Nov, [facility] [address] [id number] [place] [address] Oct, [facility] [address] [id number] [place] [address] Oct, [facility] [address] [id number] [place] [address] Oct, [facility] [address] [id number] [place] [address] Oct, [facility] [address] [id number] [place] [address] Oct, [facility] [address] [id number] [place] [address] Oct, [facility] [place] [facility] [address] [id number] [place] [address] Oct, [facility] [place] [facility] [address] [id number] [place] [address] Oct, [facility] [place] [facility] [address] [id number] [place] [address] Oct, [facility] [place] [facility] [address] [id number] [place] [address] Oct, [facility] [place] [facility] [address] [id number] [place] [address] Oct, [facility] [place] [facility] [address] [id number] [place] [address] Oct, [facility] [place] [facility] [address] [id number] [place] [address] Oct, [facility] [place] [facility] [address] [id number] [place] [address] Oct, [facility] [place] [facility] [address] [id number] [place] [address] Sep, [facility] [place] [facility] [address] [id number] [place] [address] Sep, [facility] [place] [facility] [address] [id number] [place] [address] Sep, [facility] [place] [facility] [address] [id number] [place] [address] Sep, [facility] [place] [facility] [address] [id number] [place] [address] Aug, [facility] [place] [facility] [address] [id number] [place] [address] Aug, [facility] [place] [facility] [address] [id number] [place] [address] Aug, [facility] [place] [facility] [address] [id number] [place] [address] Aug, [facility] [place] [facility] [id number] [place] [address] Aug, [facility] [place] [facility] [address] [id number] [place] [address] Aug, [facility] [place] [facility] [address] [id number] [place] [address] Aug, [facility] [place] [facility] [address] [facility] [id number] [place] [address] Aug, 2013 [facility] [place] [facility] [address] [facility] [id number] [place] [address] Aug, 2013 [facility] [place] [facility] [address] [id number] [place] [address] 02 Aug, 2013 [facility] [place] [facility] [address] [id number] [place] [address] 29 Sep, 2013 [facility] [place] [facility] [address] [facility] [id number] [place] [address] 29 Sep, 2013 [facility] [place] [facility] [address] [id number] [place] [address] 29 Jul, 2013 [facility] [place] [facility] [address] [id number] [place] [address] 29 Jul, 2013 [facility] [place] [facility] [address] [id number] [place] [address] 22 Jul, 2013 [facility] [place] [facility] [address] [id number] [place] [address] 22 Sep, 2013 [facility] [place] [facility] [address] [id number] [place] [address] 19 Jul, 2013 [facility] [place] [facility] [address] [id number] [place] [address] 19 Sep, 2013 [facility] [place] [facility] [address] [id number] [place] [address] 11 Jul, 2013 [facility] [place] [facility] [address] [id number] [place] [address] 11 Sep, 2013 [facility] [place] [facility] [address] [id number] [place] [address] 10 Sep, 2013 [facility] [place] [facility] [address] [id number] [place] [address] 10 Jul, 2013 [facility] [place] [facility] [address] [id number] [place] [address] 08 Sep, 2013 [facility] [place] [facility] [address] [id number] [place] [address] 08 Jul, 2013 [facility] [place] [facility] [address] [id number] [place] [address] 03 Jul, 2013 [facility] [place] [facility] [address] [facility] [id number] [place] [address] 03 Jul, 2013 [facility] [place] [facility] [address] [id number] [place] [address] Jul, 2013 [facility] [place] [facility] [address] [facility] [id number] [place] [address] Jul, 2013 [facility] [place] [facility] [address] [facility] [id number] [place] [address] Jun, [facility] [place] [facility] [address] [id number] [place] [address] Jun, [facility] [place] [facility] [address] [id number] [place] [address] Jun, [facility] [place] [facility] [address] [id number] [place] [address] Jun, [facility] [place] [facility] [address] [facility] [id number] [place] [address] Jun, [facility] [place] [facility] [address] [id number] [place] [address] Jun, [facility] [place] [facility] [address] [id number] [place] [address] Jun, [facility] [place] [facility] [address] [id number] [place] [address] Jun, [facility] [place] [facility] [address] [facility] [id number] [place] [address] Jun, [facility] [place] [facility] [address] [id number] [place] [address] Jun, [facility] [place] [facility] [address] [facility] [id number] [place] [address] Jun, [facility] [place] [facility] [address] [id number] [place] [address] Jun, [facility] [place] [facility] [address] [id number] [place] [address] Jun, [facility] [place] [facility] [address] [facility] [id number] [place] [address] Jun, [facility] [place] [facility] [address] [facility] [id number] [place] [address] Jun, [facility] [place] [facility] [address] [id number] [place] [address] May, [facility] [place] [facility] [address] [facility] [id number] [place] [address] May, [facility] [place] [facility] [address] [facility] [id number] [place] [address] May, [facility] [place] [facility] [address] [id number] [place] [address] May, [facility] [place] [facility] [address] [id number] [place] [address] May, [facility] [place] [facility] [address] [id number] [place] [address] May, [facility] [place] [facility] [address] [id number] [place] [address] May, [facility] [place] [facility] [address] [id number] [place] [address] May, [facility] [place] [facility] [address] [id number] [place] [address] Apr, [facility] [place] [facility] [address] [id number] [place] [address] Apr, [facility] [place] [facility] [address] [facility] [id number] [place] [address] Apr, [facility] [place] [facility] [address] [id number] [place] [address] Apr, [facility] [place] [facility] [address] [id number] [place] [address] Apr, [facility] [place] [facility] [address] [id number] [place] [address] Apr, [facility] [place] [facility] [address] [facility] [id number] [place] [address] Apr, [facility] [place] [facility] [address] [facility] [id number] [place] [address] Apr, [facility] [place] [facility] [address] [facility] [id number] [place] [address] Apr, [facility] [place] [facility] [address] [facility] [id number] [place] [address] Apr, [facility] [place] [facility] [address] [facility] [id number] [place] [address] Apr, [facility] [place] [facility] [address] [id number] [place] [address] Apr, [facility] [place] [facility] [address] [id number] [place] [address] Apr, [facility] [place] [facility] [address] [id number] [place] [address] Apr, [facility] [place] [facility] [address] [id number] [place] [address] Apr, [facility] [place] [facility] [address] [id number] [place] [address] Apr, [facility] [place] [facility] [address] [id number] [place] [address] Apr, [facility] [place] [facility] [address] [id number] [place] [address] Apr, [facility] [place] [facility] [address] [facility] [id number] [place] [address] March, [facility] [place] [facility] [address] [id number] [place] [address] March, [facility] [place] [facility] [address] [id number] [place] [address] March, [facility] [place] [facility] [address] [id number] [place] [address] March, [facility] [place] [facility] [address] [id number] [place] [address] March, [facility] [place] [facility] [address] [facility] [id number] [place] [address] March, [facility] [place] [facility] [address] [facility] [id number] [place] [address] March, [facility] [place] [facility] [address] [id number] [place] [address] March, [facility] [place] [facility] [address] [id number] [place] [address] March, [facility] [place] [facility] [address] [facility] [id number] [place] [address] Feb, [facility] [place] [facility] [address] [id number] [place] [address] Feb, [facility] [place] [facility] [address] [id number] [place] [address] Feb, [facility] [place] [facility] [address] [id number] [place] [address] Feb, [facility] [place] [facility] [address] [id number] [place] [address] Feb, [facility] [place] [facility] [address] [id number] [place] [address] Feb, [facility] [place] [facility] [address] [id number] [place] [address] Feb, [facility] [place] [facility] [address] [id number] [place] [address] Feb, [facility] [place] [facility] [address] [id number] [place] [address] Feb, [facility] [place] [facility] [address] [id number] [place] [address] Feb, [facility] [place] [facility] [address] [id number] [place] [address] Feb, [facility] [place] [facility] [address] [id number] [place] [address] Feb, [facility] [place] [facility] [address] [id number] [place] [address] Feb, [facility] [place] [facility] [address] [id number] [place] [address] Jan, [facility] [place] [facility] [address] [id number] [place] [address] Jan, [facility] [place] [facility] [address] [id number] [place] [address] Jan, [facility] [place] [facility] [address] [id number] [place] [address] Jan, [facility] [place] [facility] [address] [id number] [place] [address] Jan, [facility] [place] [facility] [address] [id number] [place] [address] Jan, [facility] [place] [facility] [address] [id number] [place] [address] Jan, [facility] [place] [facility] [address] [id number] [place] [address] Jan, [facility] [place] [facility] [address] [id number] [place] [address] Dec, [facility] [place] [facility] [address] [id number] [place] [address] Dec, [facility] [place] [facility] [address] [id number] [place] [address] Dec, [facility] [place] [facility] [address] [id number] [place] [address] Dec, [facility] [place] [facility] [address] [id number] [place] [address] Dec, [facility] [place] [facility] [address] [id number] [place] [address] Dec, [facility] [place] [facility] [address] [id number] [place] [address] Dec, [facility] [place] [facility] [address] [id number] [place] [address] Dec, [facility] [place] [facility] [address] [id number] [place] [address] Dec, [facility] [place] [facility] [address] [id number] [place] [address] Dec, [facility] [place] [facility] [address] [id number] [place] [address] Nov, [facility] [place] [facility] [address] [id number] [place] [address] Nov, [facility] [place] [facility] [address] [id number] [place] [address] Nov, [facility] [place] [facility] [address] [id number] [place] [address] Nov, [facility] [place] [facility] [id number] [place] [address] Nov, [facility] [place] [facility] [address] [id number] [place] [address] Nov, [facility] [place] [facility] [address] [id number] [place] [address] Nov, [facility] [place] [facility] [id number] [place] [address] Nov, [facility] [place] [facility] [address] [id number] [place] [address] Nov, [facility] [place] [facility] [id number] [place] [address] Nov, [facility] [place] [facility] [address] [id number] [place] [address] Oct, [facility] [place] [facility] [address] [id number] [place] [address] Oct, [facility] [place] [facility] [address] [id number] [place] [address] Oct, [facility] [place] [facility] [address] [id number] [place] [address] Oct, [facility] [place] [facility] [address] [id number] [place] [address] 17 Oct, 2013 [facility] [place] [facility] [address] [id number] [place] [address] 17 Oct, 2013 [facility] [place] [facility] [address] [id number] [place] [address] 16 Oct, 2013 [facility] [place] [facility] [address] [id number] [place] [address] 16 Oct, 2013 [facility] [place] [facility] [address] [id number] [place] [address] Oct, [facility] [place] [facility] [address] [id number] [place] [address] Oct, [facility] [place] [facility] [address] [id number] [place] [address] Oct, [facility] [place] [facility] [address] [id number] [place] [address] 04 Oct, 2013 [facility] [place] [facility] [address] [id number] [place] [address] 04 Oct, 2013 [facility] [place] [facility] [address] [id number] [place] [address] Oct, [facility] [place] [facility] [address] [id number] [place] [address] Sep, [facility] [place] [facility] [address] [id number] [place] [address] 27 Sep, 2013 [facility] [place] [facility] [address] [id number] [place] [address] 18 Sep, 2013 [facility] [place] [facility] [address] [id number] [place] [address] 18 Sep, 2013 [facility] [place] [facility] [id number] [place] [address] Sep, [facility] [place] [facility] [address] [id number] [place] [address] Sep, [facility] [place] [facility] [address] [id number] [place] [address] Aug, [facility] [place] [facility] [address] [facility] [id number] [place] [address] 31 Aug, 2012 [facility] [place] [facility] [address] [facility] [id number] [place] [address] 17 Aug, 2012 [facility] [place] [facility] [address] [id number] [place] [address] 17 Aug, 2012 [facility] [place] [facility] [address] [id number] [place] [address] 10 Aug, 2012 [facility] [place] [facility] [address] [facility] [id number] [place] [address] 10 Aug, 2012 [facility] [place] [facility] [address] [id number] [place] [address] 07 Aug, 2012 [facility] [place] [facility] [address] [id number] [place] [address] 02 Aug, 2012 [facility] [place] [facility] [address] [id number] [place] [address] 02 Aug, 2012 [facility] [place] [facility] [address] [id number] [place] [address] 25 Sep, 2012 [facility] [place] [facility] [address] [id number] [place] [address] 23 Sep, 2012 [facility] [place] [facility] [address] [id number] [place] [address] 21 Sep, 2012 [facility] [place] [facility] [address] [id number] [place] [address] 20 Sep, 2012 [facility] [place] [facility] [address] [id number] [place] [address] 18 Sep, 2012 [facility] [place] [facility] [address] [id number] [place] [address] 17 Sep, 2012 [facility] [place] [facility] [address] [id number] [place] [address] 16 Sep, 2012 [facility] [place] [facility] [address] [id number] [place] [address] 11 Sep, 2012 [facility] [place] [facility] [address] [id number] [place] [address] Jul, 2012 [facility] [place] [facility] [address] [id number] [place] [address] Jul, 2012 [facility] [place] [facility] [address] [facility] [id number] [place] [address] Jul, 2012 [facility] [place] [facility] [address] [id number] [place] [address] Jul, [facility] [place] [facility] [address] [facility] [id number] [place] [address] Jun, [facility] [place] [facility] [address] [facility] [id number] [place] [address] Jun, [facility] [place] [facility] [address] [id number] [place] [address] Jun, [facility] [place] [facility] [address] [id number] [place] [address] Jun, [facility] [place] [facility] [address] [id number] [place] [address] Jun, [facility] [place] [facility] [address] [facility] [id number] [place] [address] Jun, [facility] [place] [facility] [address] [id number] [place] [address] Jun, [facility] [place] [facility] [address] [id number] [place] [address] Jun, [facility] [address] [id number] [place] [address] Jun, [facility] [address] [facility] [id number] [place] [address] May, [facility] [address] [id number] [place] [address] May, [facility] [address] [facility] [id number] [place] [address] May, [facility] [address] [id number] [place] [address] May, [facility] [address] [id number] [place] [address] May, [facility] [address] [id number] [place] [address] May, [facility] [address] [id number] [place] [address] May, [facility] [address] [id number] [place] [address] March, [facility] [address] [facility] [id number] [place] [address] March, [facility] [address] [id number] [place] [address] March, [facility] [address] [id number] [place] [address] Dec, [facility] [address] [id number] [place] [address] Nov, [facility] [address] [id number] [place] [address] Aug, [facility] [address] [id number] [place] [address] Aug, [facility] [address] [id number] [place] [address] Jun, [facility] [address] [id number] [place] [address] Jun, [facility] [address] [id number] [place] [address] Jun, [facility] [address] [facility] [id number] [place] [address] Jun, [facility] [address] [id number] [place] [address] May, [facility] [address] [id number] [place] [address] May, [facility] [address] [id number] [place] [address] May, [facility] [address] [id number] [place] [address] May, [facility] [address] [id number] [place] [address] May, [facility] [address] [id number] [place] [address] May, [facility] [address] [id number] [place] [address] May, [facility] [address] [facility] [id number] [place] [address] Apr, [facility] [address] [id number] [place] [address] Apr, [facility] [address] [id number] [place] [address] Apr, [facility] [address] [id number] [place] [address] Apr, [facility] [address] [id number] [place] [address] March, [facility] [address] [id number] [place] [address] March, [facility] [address] [id number] [place] [address] March, [facility] [address] [id number] [place] [address] March, [facility] [address] [id number] [place] [address] March, [facility] [address] [id number] [place] [address] March, [facility] [address] [id number] [place] [address] March, [facility] [address] [id number] [place] [address] March, [facility] [address] [id number] [place] [address] March, [facility] [address] [id number] [place] [address] Feb, [facility] [address] [id number] [place] [address] Feb, [facility] [address] [id number] [place] [address] Jan, [facility] [address] [id number] [place] [address] 27 Jan, 2012 [facility] [address] [id number] [place] [address] Jan, [facility] [address] [id number] [place] [address] Jan, [facility] [address] [id number] [place] [address] Dec, [facility] [address] [id number] [place] [address] 16 Dec, 2011 [facility] [address] [id number] [place] [address] 15 Dec, 2011 [facility] [address] [id number] [place] [address] Nov, [facility] [address] [id number] [place] [address] Oct, [facility] [address] [id number] [place] [address] 15 Oct, 2011 [facility] [address] [id number] [place] [address] 15 Oct, 2011 [facility] [address] [id number] [place] [address] 14 Oct, 2011 [facility] [address] [id number] [place] [address] 14 Oct, 2011 [facility] [address] [id number] [place] [address] 12 Oct, 2011 [facility] [id number] [place] [address] Oct, [facility] [id number] [place] [address] Oct, [facility] [id number] [place] [address] Sep, [facility] [id number] [place] [address] Sep, [facility] [id number] [place] [address] Sep, [facility] [id number] [place] [address] Sep, [facility] [id number] [place] [address] Sep, [facility] [id number] [place] [address] Sep, [facility] [address] [id number] [place] [address] Sep, [facility] [address] [id number] [place] [address] Sep, [facility] [address] [id number] [place] [address] Sep, [facility] [address] [id number] [place] [address] Aug, [facility] [address] [id number] [place] [address] Jul, [facility] [address] [id number] [place] [address] Oct, [facility] [address] [id number] [place] [address] Oct, [facility] [address] [id number] [place] [address] Oct, IMMUNIZATIONS No Known Immunizations SOCIAL HISTORY [...]
--- OUTSIDE RECORDS SUMMARY | 2020-03-19 06:01 | XMS REPORT ---
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 20502469 Problem Chronic kidney disease, unspecified N18.9 Active 268577370 Problem Anemia, unspecified D64.9 Active 132558254 Problem Irritable bowel K58.9 Active 1074 3008 Problem Irritable bowel syndrome with diarrhea K58.0 Active 365798034 Problem Claudication I73.9 Active 4604708 6 Problem Intractable migraine without aura and with status migr ainosus G43.011 Active 972715077 Problem Peritoneal dialysis status Z99.2 Act moody 240623033 Problem Migraine without aura and without status migrain osus, not intractable G43.009 Active 330401820 Problem Other insomnia G47.09 Active 29001 2000 Problem Dysthymia F34.1 Active 91291955 Problem Chronic kidney disease, stage 4 (severe) N18.4 Active 270268540 Problem Migraine with aura and without status migrainosu s, not intractable G43.109 Active 3235041 Problem Autonomic neuropathy G90.9 Active 314992391 Problem Type 1 diabetes mellitus with complications E10.8 Active 504833525 Problem Menorrhagia with regular cycle N92.0 Active 236464022 Problem Other chronic pain G89.29 Active 8 5767828 Problem Lymphedema I89.0 Active 044770591 Problem Essential hypertension I10 Active 02745841 Problem Moderate episode of recurrent major depressive disorder F33.1 Active 309021351 Problem Type 1 diabetes mellitus without complications E10 .9 Active 924438519 Problem Primary insomnia F51.01 Active 397 2004 Problem Migraine G43.909 Active 83721858 Problem Low back pain M54.5 Active 448310 009 Problem Diastolic dysfunction I51.89 Active 5390783 Problem ESRF (end stage renal failure) N18.6 Active 99663144 Problem Restless legs G25.81 Active 567628 08 Problem Hyperthyroidism E05.90 Active 3448 6009 ALLERGIES No Information ENCOUNTERS Encounter Location Date Diagnosis [place] [address] [address] Jan, [facility] [address] [id number] Jan, [facility] [address] [id number] Dec, Caries K02.9 and Dental examination Z01. 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 ; Migraine without aura and without status migrainosus, not intractable G43.009 ; Chronic kidney disease, stage 4 (severe) N18.4 ; Claudication I73.9 ; Peritoneal dialysis status Z99.2 ; Diastolic dysfunction I51.89 ; Primary insomnia F51.01 and Burn T30.0 [place] [address] [address] Sep, Moderate episode of recurrent major depr essive disorder F33.1 and Primary insomnia F51.01 [place] [address] [address] Aug, Hyperthyroidism E05.90 [place] [address] [address] May, Restless legs G25.81 [place] [address] [address] May, [facility] [address] [address] May, [facility] [address] [address] May, Type 1 diabetes mellitus with hypoglycem ia without coma E10.649 ; ESRF (end stage renal failure) N18.6 ; Leg cramps R25.2 ; Restless legs G25.81 and Low back pain M54.5 [facility] [address] [address] Apr, Low back pain M54.5 [facility] [address] [address] Apr, [facility] [address] [address] March, Low back pain M54.5 [facility] [address] [address] March, [facility] [address] [address] Feb, Low back pain M54.5 [facility] [address] [address] Jan, Low back pain M54.5 [facility] [address] [address] Jan, [facility] [address] [address] Jan, [facility] [address] [address] Jan, [facility] [address] [address] Dec, Type 1 diabetes mellitus with hypoglycem ia without coma E10.649 and Low back pain M54.5 [facility] [address] [address] 21 Dec, 2018 Low back pain M54.5 [place] [address] [address] 13 Dec, 2018 Diastolic dysfunction I51.89 ; Essential hypertension I10 and Chronic kidney disease, stage 4 (severe) N18.4 [place] [address] [address] 11 Dec, 2018 RUQ abdominal pain R10.11 ; Type 1 diabe camryn mellitus without complications E10.9 ; Therapeutic drug monitoring Z51.81 ; Migraine with aura and without status migrainosus, not intractable G43.109 and Intractable migraine without aura and with status migrainosus G43.011 [place] [address] [address] Nov, Low back pain M54.5 [place] [address] [address] Nov, [place] [address] [address] Nov, Intractable migraine without aura and wi th status migrainosus G43.011 ; Lymphedema I89.0 ; Pain in right shoulder M25.511 ; Other chronic pain G89.29 ; Irritable bowel syndrome with diarrhea K58.0 ; Type 1 diabetes mellitus without complications E10.9 and Essential hypertension I10 [place] [address] [address] Oct, Low back pain M54.5 [place] [address] [address] Oct, [place] [address] [address] Oct, Orthostatic hypotension I95.1 ; Shortnes s of breath R06.02 ; Leg swelling M79.89 ; Type 1 diabetes mellitus without complications E10.9 and Claudication I73.9 [place] [address] [address] Sep, Low back pain M54.5 [facility] [address] [place] [id number] [place] [address] Sep, Low back pain M54.5 [facility] [address] [address] Aug, [facility] [address] [address] Aug, Migraine without aura and without status migrainosus, not intractable G43.009 [facility] [address] [address] Aug, Low back pain M54.[address] [facility] [address] [facility] [id number] [place] [address] Aug, Acute rhinosinusitis J01.90 and Sore throat J02.9 [facility] [address] [place] [id number] [place] [address] Jul, Low back pain M54.5 [facility] [address] [address] Jul, Migraine without aura and without status migrainosus, not intractable G43.009 [facility] [address] [address] Jun, Low back pain M54.5 [facility] [address] [address] Jun, [facility] [address] [address] Jun, Orthostatic hypotension I95.1 ; Shortnes s of breath R06.02 ; Type 1 diabetes mellitus without complications E10.9 and Leg swelling M79.89 [facility] [address] [address] Jun, Low back pain M54.5 [facility] [address] [address] Jun, [facility] [address] [address] May, Migraine without aura and without status migrainosus, not intractable G43.009 [place] [address] [address] May, Migraine without aura and without status migrainosus, not intractable G43.009 ; Restless legs syndrome G25.81 ; Leg cramps R25.2 ; Chronic kidney disease, unspecified N18.9 ; Postural hypotension I95.1 ; Diarrhea, unspecified type R19.7 and Cough R05 [place] [address] [address] May, [place] [address] [address] May, [place] [address] [address] May, Orthostatic hypotension I95.1 ; Shortnes s of breath R06.02 ; Type 1 diabetes mellitus with complications E10.8 and Leg swelling M79.89 [place] [address] [address] May, [place] [address] [address] May, Low back pain M54.5 [place] [address] [address] Apr, Type 1 diabetes mellitus with hyperglyce sebastian E10.65 [place] [address] [address] Apr, Low back pain M54.5 [place] [address] [address] Apr, [place] [address] [address] Apr, [place] [address] [address] March, [place] [address] [address] March, Low back pain M54.5 [place] [address] [address] March, [facility] [address] [address] Feb, [place] [address] [address] Feb, Low back pain M54.5 [place] [address] [address] Jan, Restless legs syndrome G25.81 [place] [address] [address] Jan, Low back pain M54.5 [place] [address] [address] Jan, [place] [address] [address] Jan, Type 1 diabetes mellitus without complic ations E10.9 ; Low back pain M54.5 ; Cough R05 ; Diarrhea, unspecified type R19.7 ; Migraine without aura and without status migrainosus, not intractable G43.009 and Uses control Z30.9 [place] [address] [address] Dec, Low back pain M54.5 [place] [address] [address] Dec, [place] [address] [address] Nov, Well woman exam Z01.419 ; Menorrhagia wi th regular cycle N92.0 ; Vaginal dryness N89.8 and Migraine with aura and without status migrainosus, not intractable G43.109 [place] [address] [address] Nov, [place] [address] [address] Nov, Low back pain M54.5 [facility] [address] [address] Oct, Low back pain M54.5 [facility] [address] [address] Oct, Migraine without aura and without status migrainosus, not intractable G43.009 [facility] [address] [address] Sep, Low back pain M54.5 [facility] [address] [address] Sep, [place] [address] [address] Sep, Migraine without aura and without status migrainosus, not intractable G43.009 [place] [address] [address] Sep, Type 1 diabetes mellitus with hypoglycem ia without coma E10.649 ; Anemia D64.9 ; Migraine without aura and without status migrainosus, not intractable G43.009 ; Chronic kidney disease, unspecified N18.9 ; Autonomic neuropathy G90.9 and Postural hypotension I95.1 [place] [address] [address] Sep, Low back pain M54.5 [facility] [address] [address] Aug, Low back pain M54.5 [facility] [address] [address] 14 Jul, 2017 [place] [address] [address] 06 Jul, 2017 Low back pain M54.5 [facility] [address] [address] Jun, [place] [address] [address] Jun, Low back pain M54.5 [facility] [address] [address] Jun, Migraine without aura and without status migrainosus, not intractable G43.009 [facility] [address] [address] Jun, Type 1 diabetes mellitus with hyperglyce sebastian E10.65 ; Dysthymia F34.1 and Migraine without aura and without status migrainosus, not intractable G43.009 [facility] [address] [address] Jun, [place] [address] [address] May, Type 1 diabetes mellitus with hyperglyce sebastian E10.65 [place] [address] [address] May, Low back pain M54.5 [place] [address] [address] May, Type 1 diabetes mellitus with hyperglyce sebastian E10.65 [place] [address] [address] Apr, [place] [address] [address] Apr, Chronic kidney disease, stage 4 (severe) N18.4 [facility] [address] [address] Apr, Low back pain M54.5 [facility] [address] [address] March, [facility] [address] [address] March, Low back pain M54.5 [facility] [address] [address] Feb, [place] [address] [address] Feb, [facility] [address] [address] Feb, Low back pain M54.5 [facility] [address] [address] Feb, Low back pain M54.5 [facility] [address] [address] Feb, Migraine without aura and without status migrainosus, not intractable G43.009 [place] [address] [address] Feb, [place] [address] [address] Jan, Low back pain M54.5 [place] [address] [address] Jan, Type 1 diabetes mellitus without complic ations E10.9 ; Anemia D64.9 ; Chronic kidney disease, unspecified N18.9 ; Migraine without aura and without status migrainosus, not intractable G43.009 and Other insomnia G47.09 [place] [address] [address] Jan, [place] [address] [address] Dec, Low back pain M54.5 [place] [address] [address] Dec, [place] [address] [address] Dec, [place] [address] [address] 08 Dec, 2016 Shortness of breath R06.02 ; Type 1 diab etes mellitus without complications E10.9 and Leg swelling M79.89 [place] [address] [address] Nov, Low back pain M54.5 [facility] [address] [address] Nov, Viral syndrome B34.9 [facility] [address] [address] Oct, Low back pain M54.5 [facility] [address] [address] Oct, [facility] [address] [address] Oct, Low back pain M54.5 [facility] [address] [address] Sep, [facility] [address] [address] Sep, Fatigue, unspecified type R53.83 ; Type 1 diabetes mellitus without complications E10.9 and Anemia D64.9 [facility] [address] [address] Sep, Low back pain M54.5 [place] [address] [address] Sep, Type 1 diabetes mellitus with hyperglyce sebastian E10.65 [facility] [address] [address] Aug, Type 1 diabetes mellitus without complic ations E10.9 [facility] [address] [address] Aug, [facility] [address] [address] Aug, [facility] [address] [address] Jul, [facility] [address] [address] 14 Jul, 2016 Low back pain M54.5 [facility] [address] [address] Jul, Hyperkalemia, diminished renal excretion E87.5 [facility] [address] [address] Jul, Hyperkalemia, diminished renal excretion E87.5 [facility] [address] [address] Jun, [facility] [address] [address] Jun, Low back pain M54.5 [place] [address] [address] Jun, Anemia D64.9 ; Autonomic neuropathy G90. 9 and Postural hypotension I95.1 [place] [address] [address] Jun, [place] [address] [address] May, Type 1 diabetes mellitus with complicati ons E10.8 and Anemia D64.9 [place] [address] [address] May, Low back pain M54.5 [place] [address] [address] Apr, [facility] [address] [address] Apr, Low back pain M54.5 [facility] [address] [address] Apr, [facility] [address] [address] Apr, [place] [address] [address] March, Low back pain M54.5 and Other chronic pa in G89.29 [place] [address] [place] [address] [place] [address] March, Type 1 diabetes mellitus without complic ations E10.9 [facility] [address] [place] [id number] [place] [address] March, [facility] [address] [place] [id number] [place] [address] March, [facility] [address] [address] Feb, [facility] [address] [address] Feb, Type 1 diabetes mellitus without complic ations E10.9 [facility] [address] [place] [id number] [place] [address] Feb, Trochanteric bursitis, right hip M70.61 [facility] [address] [address] Jan, [facility] [address] [address] Jan, [facility] [address] [place] [id number] [place] [address] Dec, Type 1 diabetes mellitus with complicati ons E10.8 [facility] [address] [place] [id number] [place] [address] Dec, [facility] [address] [address] Dec, Anemia D64.9 ; Autonomic neuropathy G90. 9 and Postural hypotension I95.1 [facility] [address] [place] [address] [place] [address] Dec, [facility] [address] [address] Nov, Sore throat J02.9 [facility] [address] [place] [id number] [place] [address] Nov, Type 1 diabetes mellitus with complicati ons E10.8 [facility] [address] [place] [id number] [place] [address] 18 Nov, 2015 Type 1 diabetes mellitus with diabetic n ephropathy E10.21 ; Proteinuria, unspecified R80.9 and Chronic kidney disease, unspecified N18.9 [facility] [address] [place] [id number] [place] [address] 14 Nov, 2015 [facility] [address] [address] Nov, Trochanteric bursitis, right hip M70.61 [facility] [address] [address] Nov, [facility] [address] [address] Oct, [facility] [address] [address] Oct, [facility] [address] [address] Oct, [facility] [address] [address] Sep, [facility] [address] [address] Sep, [facility] [address] [address] Sep, Type 2 diabetes mellitus with complicati on E11.8 and Right hip pain M25.551 [facility] [address] [address] Sep, [facility] [address] [address] Aug, [facility] [address] [address] Aug, [facility] [address] [address] Aug, [facility] [address] [address] Aug, Type 1 diabetes mellitus without complic ations E10.9 [facility] [address] [address] Jul, [facility] [address] [address] Jul, [facility] [address] [address] Jul, [facility] [address] [address] Jun, [facility] [address] [address] Jun, [facility] [address] [address] Jun, [facility] [address] [address] Jun, [facility] [address] [address] Jun, [facility] [address] [address] Jun, Diabetes mellitus without mention of com plication, type I [juvenile type], not stated as uncontrolled 250.01 [facility] [address] [address] May, [facility] [address] [address] May, [facility] [address] [address] May, [facility] [address] [address] May, Autonomic neuropathy 337.9 ; Postural hy potension 458.0 and Anemia 285.9 [facility] [address] [address] May, [facility] [address] [place] [address] 24 Apr, 2015 [facility] [address] [facility] [id number] [place] [address] Apr, [facility] [address] [id number] [place] [address] Apr, [facility] [address] [id number] [place] [address] Apr, [facility] [address] [id number] [place] [address] Apr, [facility] [address] [id number] [place] [address] March, [facility] [address] [id number] [place] [address] March, [facility] [address] [id number] [place] [address] March, [facility] [address] [id number] [place] [address] March, [facility] [address] [id number] [place] [address] March, [facility] [address] [id number] [place] [address] Feb, [facility] [address] [id number] [place] [address] Feb, [facility] [address] [id number] [place] [address] Feb, [facility] [address] [id number] [place] [address] 30 Jan, 2015 [facility] [address] [id number] [place] [address] Jan, [facility] [address] [id number] [place] [address] Jan, [facility] [address] [id number] [place] [address] Jan, [facility] [address] [id number] [place] [address] Jan, [facility] [address] [id number] [place] [address] Jan, [facility] [address] [id number] [place] [address] Jan, [facility] [address] [id number] [place] [address] Jan, [facility] [address] [id number] [place] [address] Jan, [facility] [address] [id number] [place] [address] Jan, [facility] [address] [id number] [place] [address] Jan, [facility] [address] [id number] [place] [address] Jan, [facility] [address] [id number] [place] [address] Jan, [facility] [address] [id number] [place] [address] Dec, 2014 [facility] [address] [id number] [place] [address] Dec, 2014 [facility] [address] [id number] [place] [address] Dec, 2014 [facility] [address] [id number] [place] [address] Dec, 2014 [facility] [address] [id number] [place] [address] Dec, 2014 [facility] [address] [id number] [place] [address] Dec, 2014 [facility] [address] [id number] [place] [address] Dec, 2014 [facility] [address] [id number] [place] [address] Dec, [facility] [address] [id number] [place] [address] Nov, [facility] [address] [id number] [place] [address] Nov, [facility] [address] [id number] [place] [address] Nov, [facility] [address] [id number] [place] [address] Nov, [facility] [place] [facility] [address] [id number] [place] [address] Nov, [facility] [place] [facility] [address] [id number] [place] [address] Nov, [facility] [place] [facility] [address] [id number] [place] [address] Nov, [facility] [place] [facility] [address] [id number] [place] [address] Nov, [facility] [place] [facility] [address] [id number] [place] [address] Nov, [facility] [place] [facility] [address] [id number] [place] [address] Oct, [facility] [place] [facility] [address] [id number] [place] [address] Oct, [facility] [place] [facility] [address] [id number] [place] [address] Oct, [facility] [place] [facility] [address] [id number] [place] [address] Oct, [facility] [place] [facility] [address] [id number] [place] [address] Oct, [facility] [place] [facility] [address] [id number] [place] [address] Oct, [facility] [place] [facility] [address] [id number] [place] [address] Oct, [facility] [place] [facility] [address] [id number] [place] [address] Oct, [facility] [place] [facility] [address] [id number] [place] [address] Oct, [facility] [place] [facility] [address] [id number] [place] [address] Oct, [facility] [place] [facility] [address] [id number] [place] [address] Oct, [facility] [place] [facility] [address] [id number] [place] [address] Oct, [facility] [place] [facility] [address] [id number] [place] [address] Oct, [facility] [place] [facility] [address] [id number] [place] [address] Oct, [facility] [place] [facility] [address] [id number] [place] [address] Sep, [facility] [place] [facility] [address] [id number] [place] [address] Sep, [facility] [place] [facility] [address] [id number] [place] [address] Sep, [facility] [place] [facility] [address] [id number] [place] [address] Sep, [facility] [place] [facility] [address] [id number] [place] [address] Aug, [facility] [place] [facility] [address] [id number] [place] [address] Aug, [facility] [place] [facility] [address] [id number] [place] [address] Aug, [facility] [place] [facility] [id number] [place] [address] Aug, [facility] [place] [facility] [address] [id number] [place] [address] Aug, [facility] [place] [facility] [address] [id number] [place] [address] Aug, [facility] [place] [facility] [address] [facility] [id number] [place] [address] Aug, 2013 [facility] [place] [facility] [address] [facility] [id number] [place] [address] Aug, 2013 [facility] [place] [facility] [address] [id number] [place] [address] Aug, [facility] [place] [facility] [address] [id number] [place] [address] Aug, 2013 [facility] [place] [facility] [address] [facility] [id number] [place] [address] 29 Jul, 2013 [facility] [place] [facility] [address] [id number] [place] [address] 29 Jul, 2013 [facility] [place] [facility] [address] [id number] [place] [address] 29 Jul, 2013 [facility] [place] [facility] [address] [id number] [place] [address] 29 Jul, 2013 [facility] [place] [facility] [address] [id number] [place] [address] 22 Jul, 2013 [facility] [place] [facility] [address] [id number] [place] [address] 22 Jul, 2013 [facility] [place] [facility] [address] [id number] [place] [address] 19 Jul, 2013 [facility] [place] [facility] [address] [id number] [place] [address] 19 Jul, 2013 [facility] [place] [facility] [address] [id number] [place] [address] 11 Jul, 2013 [facility] [place] [facility] [address] [id number] [place] [address] 11 Jul, 2013 [facility] [place] [facility] [address] [id number] [place] [address] 10 Jul, 2013 [facility] [place] [facility] [address] [id number] [place] [address] 10 Jul, 2013 [facility] [place] [facility] [address] [id number] [place] [address] 08 Sep, 2013 [facility] [place] [facility] [address] [id number] [place] [address] 08 Jul, 2013 [facility] [place] [facility] [address] [facility] [id number] [place] [address] Jul, 2013 [facility] [place] [facility] [address] [id number] [place] [address] Jul, 2013 [facility] [place] [facility] [address] [facility] [id number] [place] [address] Jul, 2013 [facility] [place] [facility] [address] [facility] [id number] [place] [address] Jul, [facility] [place] [facility] [address] [id number] [place] [address] Jun, [facility] [place] [facility] [address] [id number] [place] [address] Jun, [facility] [place] [facility] [address] [id number] [place] [address] Jun, [facility] [place] [facility] [address] [facility] [id number] [place] [address] Jun, [facility] [place] [facility] [address] [id number] [place] [address] Jun, [facility] [place] [facility] [address] [id number] [place] [address] Jun, [facility] [place] [facility] [address] [id number] [place] [address] Jun, [facility] [place] [facility] [address] [facility] [id number] [place] [address] Jun, [facility] [place] [facility] [address] [id number] [place] [address] Jun, [facility] [place] [facility] [address] [id number] [place] [address] Jun, [facility] [place] [facility] [address] [id number] [place] [address] Jun, [facility] [place] [facility] [address] [id number] [place] [address] Jun, [facility] [place] [facility] [address] [facility] [id number] [place] [address] Jun, [facility] [place] [facility] [address] [facility] [id number] [place] [address] Jun, [facility] [place] [facility] [address] [id number] [place] [address] Jun, [facility] [place] [facility] [address] [facility] [id number] [place] [address] May, [facility] [place] [facility] [address] [facility] [id number] [place] [address] May, [facility] [place] [facility] [address] [id number] [place] [address] May, [facility] [place] [facility] [address] [id number] [place] [address] May, [facility] [place] [facility] [address] [id number] [place] [address] May, [facility] [place] [facility] [address] [id number] [place] [address] May, [facility] [place] [facility] [address] [id number] [place] [address] May, [facility] [place] [facility] [address] [id number] [place] [address] May, [facility] [place] [facility] [address] [id number] [place] [address] Apr, [facility] [place] [facility] [address] [facility] [id number] [place] [address] Apr, [facility] [place] [facility] [address] [id number] [place] [address] Apr, [facility] [place] [facility] [address] [id number] [place] [address] Apr, [facility] [place] [facility] [address] [id number] [place] [address] Apr, [facility] [place] [facility] [address] [facility] [id number] [place] [address] Apr, [facility] [place] [facility] [address] [facility] [id number] [place] [address] Apr, [facility] [place] [facility] [address] [facility] [id number] [place] [address] Apr, [facility] [place] [facility] [address] [facility] [id number] [place] [address] Apr, [facility] [place] [facility] [address] [facility] [id number] [place] [address] Apr, [facility] [place] [facility] [address] [id number] [place] [address] Apr, [facility] [place] [facility] [address] [id number] [place] [address] Apr, [facility] [place] [facility] [address] [id number] [place] [address] Apr, [facility] [place] [facility] [address] [id number] [place] [address] Apr, [facility] [place] [facility] [address] [id number] [place] [address] Apr, [facility] [place] [facility] [address] [id number] [place] [address] Apr, [facility] [place] [facility] [address] [id number] [place] [address] Apr, [facility] [place] [facility] [address] [facility] [id number] [place] [address] Apr, [facility] [place] [facility] [address] [id number] [place] [address] March, [facility] [place] [facility] [address] [facility] [id number] [place] [address] March, [facility] [place] [facility] [address] [id number] [place] [address] March, [facility] [place] [facility] [address] [id number] [place] [address] March, [facility] [place] [facility] [address] [id number] [place] [address] March, [facility] [place] [facility] [address] [id number] [place] [address] March, [facility] [place] [facility] [address] [id number] [place] [address] March, [facility] [place] [facility] [address] [id number] [place] [address] March, [facility] [place] [facility] [address] [id number] [place] [address] March, [facility] [place] [facility] [address] [id number] [place] [address] Feb, [facility] [place] [facility] [address] [id number] [place] [address] Feb, [facility] [place] [facility] [address] [id number] [place] [address] Feb, [facility] [place] [facility] [address] [id number] [place] [address] Feb, [facility] [place] [facility] [address] [id number] [place] [address] Feb, [facility] [place] [facility] [address] [id number] [place] [address] Feb, [facility] [place] [facility] [address] [id number] [place] [address] Feb, [facility] [place] [facility] [address] [id number] [place] [address] Feb, [facility] [place] [facility] [address] [id number] [place] [address] Feb, [facility] [place] [facility] [address] [id number] [place] [address] Feb, [facility] [place] [facility] [address] [id number] [place] [address] Feb, [facility] [place] [facility] [address] [facility] [id number] [place] [address] Feb, [facility] [place] [facility] [address] [id number] [place] [address] Feb, [facility] [place] [facility] [address] [id number] [place] [address] Jan, [facility] [place] [facility] [address] [id number] [place] [address] Jan, [facility] [place] [facility] [address] [id number] [place] [address] Jan, [facility] [place] [facility] [address] [id number] [place] [address] Jan, [facility] [place] [facility] [address] [id number] [place] [address] Jan, [facility] [place] [facility] [address] [id number] [place] [address] Jan, [facility] [place] [facility] [address] [id number] [place] [address] Jan, [facility] [place] [facility] [address] [id number] [place] [address] Jan, [facility] [place] [facility] [address] [id number] [place] [address] Dec, [facility] [place] [facility] [address] [id number] [place] [address] Dec, [facility] [place] [facility] [address] [id number] [place] [address] Dec, [facility] [place] [facility] [address] [id number] [place] [address] Dec, [facility] [place] [facility] [address] [id number] [place] [address] Dec, [facility] [place] [facility] [address] [id number] [place] [address] Dec, [facility] [place] [facility] [address] [id number] [place] [address] Dec, [facility] [place] [facility] [address] [id number] [place] [address] Dec, [facility] [place] [facility] [address] [id number] [place] [address] Dec, [facility] [place] [facility] [address] [id number] [place] [address] Dec, [facility] [place] [facility] [address] [id number] [place] [address] Nov, [facility] [place] [facility] [address] [id number] [place] [address] Nov, [facility] [place] [facility] [address] [id number] [place] [address] Nov, [facility] [place] [facility] [address] [id number] [place] [address] Nov, [facility] [place] [facility] [address] [id number] [place] [address] Nov, [facility] [place] [facility] [address] [id number] [place] [address] Nov, [facility] [place] [facility] [address] [id number] [place] [address] Nov, [facility] [place] [facility] [address] [id number] [place] [address] Nov, [facility] [place] [facility] [id number] [place] [address] Nov, [facility] [place] [facility] [address] [id number] [place] [address] Nov, [facility] [place] [facility] [address] [id number] [place] [address] Oct, [facility] [place] [facility] [address] [id number] [place] [address] Oct, [facility] [place] [facility] [address] [id number] [place] [address] Oct, [facility] [place] [facility] [address] [id number] [place] [address] 18 Oct, 2013 [facility] [place] [facility] [address] [id number] [place] [address] 17 Oct, 2013 [facility] [place] [facility] [address] [id number] [place] [address] 17 Oct, 2013 [facility] [place] [facility] [address] [id number] [place] [address] 16 Oct, 2013 [facility] [place] [facility] [address] [id number] [place] [address] 16 Oct, 2013 [facility] [place] [facility] [address] [id number] [place] [address] Oct, [facility] [place] [facility] [address] [id number] [place] [address] Oct, [facility] [place] [facility] [address] [id number] [place] [address] 04 Oct, 2013 [facility] [place] [facility] [address] [id number] [place] [address] 04 Oct, 2013 [facility] [place] [facility] [address] [id number] [place] [address] 04 Oct, 2013 [facility] [place] [facility] [address] [id number] [place] [address] 04 Oct, 2013 [facility] [place] [facility] [address] [id number] [place] [address] Sep, [facility] [place] [facility] [address] [id number] [place] [address] 27 Sep, 2013 [facility] [place] [facility] [address] [id number] [place] [address] 18 Sep, 2013 [facility] [place] [facility] [id number] [place] [address] 18 Sep, 2013 [facility] [place] [facility] [address] [id number] [place] [address] 13 Sep, 2013 [facility] [place] [facility] [address] [id number] [place] [address] Sep, [facility] [place] [facility] [address] [id number] [place] [address] Aug, 2012 [facility] [place] [facility] [address] [id number] [place] [address] 31 Aug, 2012 [facility] [place] [facility] [address] [id number] [place] [address] 17 Aug, 2012 [facility] [place] [facility] [address] [id number] [place] [address] 17 Aug, 2012 [facility] [place] [facility] [address] [facility] [id number] [place] [address] 10 Aug, 2012 [facility] [place] [facility] [address] [id number] [place] [address] 10 Aug, 2012 [facility] [place] [facility] [address] [id number] [place] [address] 07 Aug, 2013 [facility] [place] [facility] [address] [id number] [place] [address] 02 Aug, 2012 [facility] [place] [facility] [address] [id number] [place] [address] 02 Aug, 2013 [facility] [place] [facility] [address] [id number] [place] [address] 25 Sep, 2012 [facility] [place] [facility] [address] [id number] [place] [address] 23 Sep, 2012 [facility] [place] [facility] [address] [id number] [place] [address] 21 Sep, 2012 [facility] [place] [facility] [address] [id number] [place] [address] 20 Sep, 2012 [facility] [place] [facility] [address] [id number] [place] [address] 18 Sep, 2012 [facility] [place] [facility] [address] [id number] [place] [address] 17 Sep, 2012 [facility] [place] [facility] [address] [id number] [place] [address] 16 Sep, 2012 [facility] [place] [facility] [address] [id number] [place] [address] 11 Jul, 2012 [facility] [place] [facility] [address] [id number] [place] [address] Jul, 2012 [facility] [place] [facility] [address] [facility] [id number] [place] [address] Jul, 2012 [facility] [place] [facility] [address] [id number] [place] [address] Jul, 2012 [facility] [place] [facility] [address] [facility] [id number] [place] [address] Jul, 2012 [facility] [place] [facility] [address] [facility] [id number] [place] [address] Jun, [facility] [place] [facility] [address] [id number] [place] [address] Jun, [facility] [place] [facility] [address] [id number] [place] [address] Jun, [facility] [place] [facility] [address] [id number] [place] [address] Jun, [facility] [place] [facility] [address] [facility] [id number] [place] [address] Jun, [facility] [place] [facility] [address] [id number] [place] [address] Jun, [facility] [place] [facility] [address] [id number] [place] [address] Jun, [facility] [place] [facility] [address] [id number] [place] [address] Jun, [facility] [place] [facility] [address] [facility] [id number] [place] [address] Jun, [facility] [place] [facility] [address] [id number] [place] [address] May, [facility] [place] [facility] [address] [id number] [place] [address] May, [facility] [place] [facility] [address] [id number] [place] [address] May, [facility] [place] [facility] [address] [id number] [place] [address] May, [facility] [place] [facility] [address] [facility] [id number] [place] [address] May, [facility] [place] [facility] [address] [id number] [place] [address] May, [facility] [place] [facility] [address] [id number] [place] [address] May, [facility] [place] [facility] [address] [facility] [id number] [place] [address] March, [facility] [place] [facility] [address] [id number] [place] [address] March, [facility] [place] [facility] [address] [id number] [place] [address] March, [facility] [place] [facility] [address] [id number] [place] [address] Dec, [facility] [place] [facility] [address] [id number] [place] [address] Nov, [facility] [place] [facility] [address] [id number] [place] [address] Aug, [facility] [place] [facility] [address] [id number] [place] [address] Aug, [facility] [place] [facility] [address] [id number] [place] [address] Jun, [facility] [place] [facility] [address] [id number] [place] [address] Jun, [facility] [place] [facility] [address] [facility] [id number] [place] [address] Jun, [facility] [place] [facility] [address] [id number] [place] [address] Jun, [facility] [place] [facility] [address] [id number] [place] [address] May, [facility] [place] [facility] [address] [id number] [place] [address] May, [facility] [place] [facility] [address] [id number] [place] [address] May, [facility] [place] [facility] [address] [id number] [place] [address] May, [facility] [place] [facility] [address] [id number] [place] [address] May, [facility] [place] [facility] [address] [id number] [place] [address] May, [facility] [place] [facility] [address] [facility] [id number] [place] [address] May, [facility] [place] [facility] [address] [id number] [place] [address] Apr, [facility] [place] [facility] [address] [id number] [place] [address] Apr, [facility] [place] [facility] [address] [id number] [place] [address] Apr, [facility] [place] [facility] [address] [id number] [place] [address] Apr, [facility] [place] [facility] [address] [id number] [place] [address] March, [facility] [place] [facility] [address] [id number] [place] [address] March, [facility] [place] [facility] [address] [id number] [place] [address] March, [facility] [place] [facility] [address] [id number] [place] [address] March, [facility] [place] [facility] [address] [id number] [place] [address] March, [facility] [place] [facility] [address] [id number] [place] [address] March, [facility] [place] [facility] [address] [id number] [place] [address] March, [facility] [place] [facility] [address] [id number] [place] [address] March, [facility] [place] [facility] [address] [id number] [place] [address] March, [facility] [place] [facility] [address] [id number] [place] [address] Feb, [facility] [place] [facility] [address] [id number] [place] [address] Feb, [facility] [place] [facility] [address] [id number] [place] [address] Jan, [facility] [place] [facility] [address] [id number] [place] [address] Jan, [facility] [place] [facility] [address] [id number] [place] [address] Jan, [facility] [place] [facility] [address] [id number] [place] [address] Jan, [facility] [place] [facility] [address] [facility] [id number] [place] [address] Dec, [facility] [address] [id number] [place] [address] Dec, [facility] [address] [id number] [place] [address] Dec, [facility] [address] [id number] [place] [address] Nov, [facility] [address] [id number] [place] [address] Oct, [facility] [address] [id number] [place] [address] 15 Oct, 2011 [facility] [address] [id number] [place] [address] 15 Oct, 2011 [facility] [address] [id number] [place] [address] 14 Oct, 2011 [facility] [address] [id number] [place] [address] 14 Oct, 2011 [facility] [address] [id number] [place] [address] 12 Oct, 2011 [facility] [address] [id number] [place] [address] Oct, [facility] [address] [id number] [place] [address] Oct, [facility] [id number] [place] [address] Sep, [facility] [address] [id number] [place] [address] Sep, [facility] [address] [id number] [place] [address] Sep, [facility] [address] [id number] [place] [address] Sep, [facility] [id number] [place] [address] Sep, [facility] [address] [id number] [place] [address] Sep, [facility] [id number] [place] [address] Sep, [facility] [address] [id number] [place] [address] Sep, [facility] [id number] [place] [address] Sep, [facility] [address] [id number] [place] [address] 24 Aug, 2011 [facility] [address] [id number] [place] [address] 15 Jul, 2011 [facility] [address] [id number] [place] [address] Oct, [facility] [address] [id number] [place] [address] Oct, [facility] [address] [id number] [place] [address] Oct, IMMUNIZATIONS No Known Immunizations SOCIAL HISTORY [...]
--- NOTE | 2020-03-19 06:02 | ED General ---
General Chief Complaint: Glucose Problems Stated Complaint: LOW BLOOD SUGAR Source of Information: Patient, EMS Exam Limitations: No Limitations (DELANO MÁRQUEZ MD) History of Present Illness Date Seen by Provider: Mar 19, 2020 Time Seen by Provider: 05:50 Initial Comments Here with report of intermittent low blood sugars all week and episode of low blood sugar tonight. Apparently she got very well and passed out or was unable to talk to her boyfriend on the phone. He called EMS and they found her with a low blood sugar. Oral glucose was given and then IV established and IV glucose. Blood sugar went up to 200. Patient denies recent illness. She does have chronic kidney disease and is on peritoneal dialysis. Denies fever or chills. She does have irritable bowel disease and has had diarrhea chronically but that has not changed. She states sometimes her blood sugars are just below. She has not made any adjustments on her insulin pump. She does not adjust it and states that her drier and grinder tender in [place] always adjust her pump. She does admit to missing her peritoneal dialysis last night because she fell asleep. She states that she would then do a manual dialysis today. States she feels bad but is unable to really describe that better other than stating she feels tired. Timing/Duration: 5-6 Days, Changing Over Time, Getting Worse Severity: Moderate Associated Systoms: No Chest Pain, No Cough, No Fever/Chills, No Nausea/Vomiting, No Shortness of Air; Weakness (DELANO MÁRQUEZ MD) Allergies and Home Medications Allergies Coded Allergies: Stzpjfs-Fnk-Ppc Reductase Inhibitor (Verified Allergy, Severe, ANAPHYLAXIS, 03/18/12) difficulty breathing, BLE swelling lisinopril (Verified Allergy, Severe, ANAPHYLAXIS, 03/18/12) difficulty breathing, swelling of extremities gabapentin (Verified Allergy, Unknown, 04/23/18) losartan (Verified Allergy, Unknown, 04/23/18) midazolam (Verified Allergy, Unknown, HIVES, 06/06/18) niacin (Verified Allergy, Unknown, 04/23/18) Home Medications Butalbital/Aspirin/Caffeine 1 Each Capsule, 1 EACH PO Q4H PRN for MIGRAINE, (Reported) Cholecalciferol (Vitamin D3) 400 Unit Tablet, 400 UNIT PO DAILY, (Reported) Citalopram Hydrobromide 20 Mg Tablet, 20 MG PO DAILY, (Reported) Darbepoetin Benjie in Polysorbat 40 Mcg/0.4 Ml Syringe, 40 MCG IJ every 3 weeks PRN for hgb less than 11, (Reported) Dicyclomine HCl 20 Mg Tablet, 20 MG PO QID PRN for STOMACH UPSET, (Reported) Ferrous Sulfate 325 Mg Tablet.dr, 325 MG PO DAILY, (Reported) Fludrocortisone Acetate 0.1 Mg Tab, 0.5 MG PO DAILY, (Reported) Hydralazine HCl 25 Mg Tablet, 25 MG PO QID Prescribed by: LUI GARCIA on 01/23/191918 Norgestimate-Ethinyl Estradiol 1 Each Tablet, 1 EACH PO DAILY, (Reported) Ondansetron 4 Mg Tab.rapdis, 4 MG SL Q4H PRN for NAUSEA/VOMITING-1ST LINE, (Reported) Jro492/FA/Omega3/Dha/Fish Oil 1 Each Tab.chew, 1 EACH PO BID, (Reported) Rizatriptan Benzoate 10 Mg Tab.rapdis, 10 MG PO UD, (Reported) take at onset of migraine Ropinirole HCl 0.25 Mg Tablet, 0.25 MG PO HS, (Reported) Sodium Bicarbonate 650 Mg Tablet, 650 MG PO BID, (Reported) Topiramate 25 Mg Tablet, 25 MG PO BID, (Reported) Tramadol HCl 50 Mg Tablet, 50 MG PO BID, (Reported) Patient Home Medication List Home Medication List Reviewed: Yes (DELANO MÁRQUEZ MD) Review of Systems Review of Systems Constitutional: see HPI; No chills, No fever; weakness Respiratory: no symptoms reported Cardiovascular: no symptoms reported Gastrointestinal: see HPI; No abdominal pain; diarrhea Genitourinary: no symptoms reported Musculoskeletal: no symptoms reported Skin: no symptoms reported Psychiatric/Neurological: See HPI (DELANO MÁRQUEZ MD) All Other Systems Reviewed Negative Unless Noted: Yes (DELANO MÁRQUEZ MD) Past Hbtfgas-Lcgjej-Hygmjt Hx Past Med/Social Hx: Reviewed Nursing Past Med/Soc Hx (DELANO MÁRQUEZ MD) Patient Social History Alcohol Use: Denies Use Recreational Drug Use: No Smoking Status: Never a Smoker 2nd Hand Smoke Exposure: No Recent Hopitalizations: No (DELANO MÁRQUEZ MD) Immunizations Up To Date Tetanus Booster (TDap): Less than 5yrs (DELANO MÁRQUEZ MD) Seasonal Allergies Seasonal Allergies: No (DELANO MÁRQUEZ MD) Past Medical History Surgeries: Yes (bilat tubal ligation) Tubal Ligation Respiratory: No Cardiac: Yes Neurological: Yes Headaches /Migraines Reproductive Disorders: No 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 Sexually Transmitted Disease: No HIV/AIDS: No Genitourinary: Yes (PERITONEAL DIALYSIS) Bladder Infection, Dialysis Gastrointestinal: Yes Irritable Bowel Musculoskeletal: No Endocrine: Yes (INSULIN PUMP) Diabetes, Insulin dep, Hypothyroidsim HEENT: No Cancer: No Psychosocial: Yes Depression Integumentary: No Blood Disorders: Yes (ANEMIA) Adverse Reaction/Blood Tranf: No (DELANO MÁRQUEZ MD) Family Medical History Reviewed Nursing Family Hx (DELANO MÁRQUEZ MD) Physical Exam Vital Signs Vital Signs - First Documented 03/19/20 05:40 Temp 36.0 Pulse 67 Resp 20 B/P (MAP) 139/56 (83) O2 Delivery Room Air (FAREED RIZZO MD) Vital Signs Capillary Refill : (DELANO MÁRQUEZ MD) Height, Weight, BMI Height: 5'2.00" Weight: 128lbs. 0.0oz. 58.579198fv; 25.00 BMI Method:Stated General Appearance: No Apparent Distress, WD/WN HEENT: PERRL/EOMI, Pharynx Normal Neck: Non Tender, Supple Respiratory: Lungs Clear, Normal Breath Sounds Cardiovascular: Regular Rate, Rhythm, No Murmur Gastrointestinal: Non Tender, Soft Back: Normal Inspection, No CVA Tenderness, No Vertebral Tenderness Extremity: Normal Inspection, Normal Range of Motion, Non Tender Neurologic/Psychiatric: Alert, Oriented x3 (DELANO MÁRQUEZ MD) Progress/Results/Core Measures Suspected Sepsis SIRS Temperature: Pulse: Respiratory Rate: Blood Pressure / Mean: (DELANO MÁRQUEZ MD) Results/Orders Lab Results Laboratory Tests Test 03/19/20 05:45 03/19/20 05:47 03/19/20 06:10 03/19/20 07:13 Range/Units White Blood Count 6.1 4.3-11.0 10^3/uL Red Blood Count 3.15 L 4.35-5.85 10^6/uL Hemoglobin 10.2 L 11.5-16.0 G/DL Hematocrit 32 L 35-52 % Mean Corpuscular Volume 102 H 80-99 FL Mean Corpuscular Hemoglobin 32 25-34 PG Mean Corpuscular Hemoglobin Concent 32 32-36 G/DL Red Cell Distribution Width 14.9 H 10.0-14.5 % Platelet Count 206 130-400 10^3/uL Mean Platelet Volume 11.1 H 7.4-10.4 FL Neutrophils (%) (Auto) 69 42-75 % Lymphocytes (%) (Auto) 23 12-44 % Monocytes (%) (Auto) 5 0-12 % Eosinophils (%) (Auto) 3 0-10 % Basophils (%) (Auto) 1 0-10 % Neutrophils # (Auto) 4.2 1.8-7.8 X 10^3 Lymphocytes # (Auto) 1.4 1.0-4.0 X 10^3 Monocytes # (Auto) 0.3 0.0-1.0 X 10^3 Eosinophils # (Auto) 0.2 0.0-0.3 10^3/uL Basophils # (Auto) 0.0 0.0-0.1 10^3/uL Sodium Level 137 135-145 MMOL/L Potassium Level 3.7 3.6-5.0 MMOL/L Chloride Level 102 98-107 MMOL/L Carbon Dioxide Level 25 21-32 MMOL/L Anion Gap 10 5-14 MMOL/L Blood Urea Nitrogen 36 H 7-18 MG/DL Creatinine 5.23 H 0.60-1.30 MG/DL Estimat Glomerular Filtration Rate 9 BUN/Creatinine Ratio 7 Glucose Level 201 H 70-105 MG/DL Calcium Level 8.0 L 8.5-10.1 MG/DL Corrected Calcium 8.8 8.5-10.1 MG/DL Magnesium Level 2.4 1.6-2.4 MG/DL Total Bilirubin 0.2 0.1-1.0 MG/DL Aspartate Amino Transf (AST/SGOT) 12 5-34 U/L Alanine Aminotransferase (ALT/SGPT) 9 0-55 U/L Alkaline Phosphatase 58 40-136 U/L C-Reactive Protein High Sensitivity 0.63 H 0.00-0.50 MG/DL Total Protein 5.8 L 6.4-8.2 GM/DL Albumin 3.0 L 3.2-4.5 GM/DL TSH [place] Testing 5.30 H 0.35-4.94 UIU/ML Glucometer 201 H 336 H 70-110 MG/DL Urine Color YELLOW Urine Clarity CLEAR Urine pH 6.0 5-9 Urine Specific [place] 1.010 L 1.016-1.022 Urine Protein 1+ H NEGATIVE Urine Glucose (UA) 1+ H NEGATIVE Urine Ketones NEGATIVE NEGATIVE Urine Nitrite NEGATIVE NEGATIVE Urine Bilirubin NEGATIVE NEGATIVE Urine Urobilinogen 0.2 < = 1.0 MG/DL Urine Leukocyte Esterase NEGATIVE NEGATIVE Urine RBC (Auto) NEGATIVE NEGATIVE Urine RBC RARE /HPF Urine WBC RARE /HPF Urine Squamous Epithelial Cells 10-25 H /HPF Urine Crystals NONE /LPF Urine Bacteria FEW H /HPF Urine Casts NONE /LPF Urine Mucus NEGATIVE /LPF Urine Culture Indicated NO (FAREED RIZZO MD) My Orders Orders - FAREED RIZZO MD Accucheck Stat ONCE (03/19/20 06:16) Accucheck Stat ONCE (03/19/20 06:16) Cho 60g/M 3snack (16-2000 Alberto) (03/19/20 Breakfast) Ondansetron Injection (Zofran Injectio (03/19/20 07:30) (FAREED RIZZO MD) Medications Given in ED Current Medications Medications Dose Ordered Sig/Iza Route Start Time Stop Time Status Last Admin Dose Admin Ondansetron HCl 8 mg ONCE ONCE IVP 03/19/20 07:30 03/19/20 07:31 03/19/20 07:22 8 MG (FAREED RIZZO MD) Vital Signs/I&O 03/19/20 05:40 Temp 36.0 Pulse 67 Resp 20 B/P (MAP) 139/56 (83) O2 Delivery Room Air (FAREED RIZZO MD) Vital Signs/I&O Capillary Refill : (DELANO MÁRQUEZ MD) Progress Note : Progress Note Seen and evaluated. IV by EMS. Labs and UA ordered. 0601: Care transferred to Dr. Ramirez pending all labs. (DELANO MÁRQUEZ MD) Progress Note #1: Time: 06:34 Progress Note Patient was seen and examined by Dr. Márquez upon arrival. I have assumed care of the patient. Labs have been reviewed and were unremarkable for a dialysis patient. UA is still pending. We are getting her a meal and will check her blood sugar again. We will then have her turn on her pump as long as her blood sugars acceptable. Progress Note #2: Time: 07:18 Progress Note Blood sugar was 336 after eating. She complained of feeling nauseated and lightheaded which is pretty typical for her after a hypoglycemic episode. She is being given Zofran. She is turning her insulin pump back on. (FAREED RIZZO MD) Departure Impression Primary Impression: Hypoglycemia Disposition: HOME, SELF-CARE Condition: Improved Departure-Patient Inst. Decision time for Depature: 06:35 (FAERED RIZZO MD) Referrals: [facility] (PCP) Primary Care Physician ALAN CARABALLO (Family) Primary Care Physician Patient Instructions: HYPOGLYCEMIA Add. Discharge Instructions: Drink plenty of water. Resume your dialysis as previously directed. Continue your insulin pump at your directed settings. Check your blood sugars at least 4 times a day including fasting in the morning and 2 hours after each meal. Eat well-balanced meals. Adjust your carbohydrate intake according to your blood sugars. Contact your drier and grinder tender first thing on Saturday morning or call the on-call provider this weekend. Return to the emergency room if you have any further problems or concerns. All discharge instructions reviewed with patient and/or family. Voiced understanding. DELANO MÁRQUEZ MD Mar 19, 2020 06:01 FAREED RIZZO MD Mar 19, 2020 06:36
--- OUTSIDE RECORDS SUMMARY | 2020-03-19 06:02 | XMS REPORT ---
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 63663832 Problem Chronic kidney disease, unspecified N18.9 Active 404018450 Problem Anemia, unspecified D64.9 Active 879978508 Problem Irritable bowel K58.9 Active 1074 3008 Problem Irritable bowel syndrome with diarrhea K58.0 Active 720798245 Problem Claudication I73.9 Active 2497388 6 Problem Intractable migraine without aura and with status migr ainosus G43.011 Active 118178021 Problem Peritoneal dialysis status Z99.2 Act moody 854377225 Problem Migraine without aura and without status migrain osus, not intractable G43.009 Active 036997085 Problem Other insomnia G47.09 Active 31153 2000 Problem Dysthymia F34.1 Active 66249830 Problem Chronic kidney disease, stage 4 (severe) N18.4 Active 180706419 Problem Migraine with aura and without status migrainosu s, not intractable G43.109 Active 7083671 Problem Autonomic neuropathy G90.9 Active 247337065 Problem Type 1 diabetes mellitus with complications E10.8 Active 167436610 Problem Menorrhagia with regular cycle N92.0 Active 449197749 Problem Other chronic pain G89.29 Active 8 9903993 Problem Lymphedema I89.0 Active 434376736 Problem Essential hypertension I10 Active 45573428 Problem Moderate episode of recurrent major depressive disorder F33.1 Active 510865220 Problem Type 1 diabetes mellitus without complications E10 .9 Active 860557293 Problem Primary insomnia F51.01 Active 397 2004 Problem Migraine G43.909 Active 32287545 Problem Low back pain M54.5 Active 042552 009 Problem Diastolic dysfunction I51.89 Active 5070369 Problem ESRF (end stage renal failure) N18.6 Active 09259199 Problem Restless legs G25.81 Active 809282 08 Problem Hyperthyroidism E05.90 Active 3448 6009 ALLERGIES No Information ENCOUNTERS Encounter Location Date Diagnosis [facility] [address] [address] Jan, [facility] [id number] [place] [id number] Dec, [facility] [address] [address] Oct, Restless legs G25.81 [address] [address] Oct, Encounter for Medicare annual wellness e xam Z00.00 ; 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 ; Migraine without aura and without status migrainosus, not intractable G43.009 ; Chronic kidney disease, stage 4 (severe) N18.4 ; Claudication I73.9 ; Peritoneal dialysis status Z99.2 ; Diastolic dysfunction I51.89 ; Primary insomnia F51.01 and Burn T30.0 [facility] [address] [address] Sep, Moderate episode of recurrent major depr essive disorder F33.1 and Primary insomnia F51.01 [facility] [address] [address] Aug, Hyperthyroidism E05.90 [facility] [address] [address] May, Restless legs G25.81 [facility] [address] [address] May, [facility] [address] [address] May, [facility] [address] [address] May, Type 1 diabetes mellitus with hypoglycem ia without coma E10.649 ; ESRF (end stage renal failure) N18.6 ; Leg cramps R25.2 ; Restless legs G25.81 and Low back pain M54.5 [facility] [address] [address] Apr, Low back pain M54.5 [facility] [address] [address] Apr, [facility] [address] [address] March, Low back pain M54.5 [facility] [address] [address] March, [facility] [address] [address] Feb, Low back pain M54.5 [facility] [address] [address] Jan, Low back pain M54.5 [facility] [address] [address] Jan, [facility] [address] [address] Jan, [facility] [address] [address] Jan, [facility] [address] [address] Dec, Type 1 diabetes mellitus with hypoglycem ia without coma E10.649 and Low back pain M54.5 [facility] [address] [address] Dec, Low back pain M54.5 [facility] [address] [address] 13 Dec, 2018 Diastolic dysfunction I51.89 ; Essential hypertension I10 and Chronic kidney disease, stage 4 (severe) N18.4 [place] [address] [address] 11 Dec, 2018 RUQ abdominal pain R10.11 ; Type 1 diabe camryn mellitus without complications E10.9 ; Therapeutic drug monitoring Z51.81 ; Migraine with aura and without status migrainosus, not intractable G43.109 and Intractable migraine without aura and with status migrainosus G43.011 [place] [address] [address] Nov, Low back pain M54.5 [place] [address] [address] Nov, [place] [address] [address] Nov, Intractable migraine without aura and wi th status migrainosus G43.011 ; Lymphedema I89.0 ; Pain in right shoulder M25.511 ; Other chronic pain G89.29 ; Irritable bowel syndrome with diarrhea K58.0 ; Type 1 diabetes mellitus without complications E10.9 and Essential hypertension I10 [place] [address] [address] Oct, Low back pain M54.5 [place] [address] [address] Oct, [place] [address] [address] Oct, Orthostatic hypotension I95.1 ; Shortnes s of breath R06.02 ; Leg swelling M79.89 ; Type 1 diabetes mellitus without complications E10.9 and Claudication I73.9 [place] [address] [address] 30 Sep, 2018 Low back pain M54.5 [place] [address] [address] Sep, Low back pain M54.5 [facility] [address] [address] Aug, [facility] [address] [address] Aug, Migraine without aura and without status migrainosus, not intractable G43.009 [facility] [address] [address] Aug, Low back pain M54.5 [facility] [address] [facility] [id number] [place] [address] Aug, Acute rhinosinusitis J01.90 and Sore throat J02.9 [facility] [address] [address] Jul, Low back pain M54.5 [place] [address] [address] Jul, Migraine without aura and without status migrainosus, not intractable G43.009 [facility] [address] [address] Jun, Low back pain M54.5 [facility] [address] [address] Jun, [facility] [address] [address] Jun, Orthostatic hypotension I95.1 ; Shortnes s of breath R06.02 ; Type 1 diabetes mellitus without complications E10.9 and Leg swelling M79.89 [facility] [address] [address] Jun, Low back pain M54.5 [facility] [address] [address] Jun, [facility] [address] [address] May, Migraine without aura and without status migrainosus, not intractable G43.009 [place] [address] [address] May, Migraine without aura and without status migrainosus, not intractable G43.009 ; Restless legs syndrome G25.81 ; Leg cramps R25.2 ; Chronic kidney disease, unspecified N18.9 ; Postural hypotension I95.1 ; Diarrhea, unspecified type R19.7 and Cough R05 [place] [address] [address] May, [place] [address] [address] May, [place] [address] [address] May, Orthostatic hypotension I95.1 ; Shortnes s of breath R06.02 ; Type 1 diabetes mellitus with complications E10.8 and Leg swelling M79.89 [address] [address] [address] May, [place] [address] [address] May, Low back pain M54.5 [place] [address] [address] Apr, Type 1 diabetes mellitus with hyperglyce sebastian E10.65 [place] [address] [address] Apr, Low back pain M54.5 [place] [address] [address] Apr, [place] [address] [address] Apr, [place] [address] [address] March, [place] [address] [address] March, Low back pain M54.5 [place] [address] [address] March, [facility] [address] [address] Feb, [facility] [address] [address] Feb, Low back pain M54.5 [place] [address] [address] Jan, Restless legs syndrome G25.81 [place] [address] [address] Jan, Low back pain M54.5 [place] [address] [address] Jan, [place] [address] [address] Jan, Type 1 diabetes mellitus without complic ations E10.9 ; Low back pain M54.5 ; Cough R05 ; Diarrhea, unspecified type R19.7 ; Migraine without aura and without status migrainosus, not intractable G43.009 and Uses control Z30.9 [place] [address] [address] Dec, Low back pain M54.5 [place] [address] [address] Dec, [place] [address] [address] Nov, Well woman exam Z01.419 ; Menorrhagia wi th regular cycle N92.0 ; Vaginal dryness N89.8 and Migraine with aura and without status migrainosus, not intractable G43.109 [address] [address] [address] Nov, [place] [address] [address] Nov, Low back pain M54.5 [place] [address] [address] Oct, Low back pain M54.5 [facility] [address] [address] Oct, Migraine without aura and without status migrainosus, not intractable G43.009 [facility] [address] [address] Sep, Low back pain M54.5 [facility] [address] [address] Sep, [facility] [address] [address] Sep, Migraine without aura and without status migrainosus, not intractable G43.009 [facility] [address] [address] Sep, Type 1 diabetes mellitus with hypoglycem ia without coma E10.649 ; Anemia D64.9 ; Migraine without aura and without status migrainosus, not intractable G43.009 ; Chronic kidney disease, unspecified N18.9 ; Autonomic neuropathy G90.9 and Postural hypotension I95.1 [place] [address] [address] Sep, Low back pain M54.5 [facility] [address] [address] Aug, Low back pain M54.5 [facility] [address] [address] 14 Jul, 2017 [facility] [address] [address] Jul, Low back pain M54.5 [facility] [address] [address] Jun, [facility] [address] [address] Jun, Low back pain M54.5 [facility] [address] [address] Jun, Migraine without aura and without status migrainosus, not intractable G43.009 [facility] [address] [address] Jun, Type 1 diabetes mellitus with hyperglyce sebastian E10.65 ; Dysthymia F34.1 and Migraine without aura and without status migrainosus, not intractable G43.009 [facility] [address] [address] Jun, [facility] [address] [address] May, Type 1 diabetes mellitus with hyperglyce sebastian E10.65 [facility] [address] [address] May, Low back pain M54.5 [facility] [address] [address] May, Type 1 diabetes mellitus with hyperglyce sebastian E10.65 [facility] [address] [address] Apr, [facility] [address] [address] Apr, Chronic kidney disease, stage 4 (severe) N18.4 [facility] [address] [address] Apr, Low back pain M54.5 [facility] [address] [address] March, [facility] [address] [address] March, Low back pain M54.5 [facility] [address] [address] Feb, [facility] [address] [address] Feb, [facility] [address] [address] Feb, Low back pain M54.5 [facility] [address] [address] Feb, Low back pain M54.5 [facility] [address] [address] Feb, Migraine without aura and without status migrainosus, not intractable G43.009 [address] [address] [address] Feb, [address] [address] Jan, Low back pain M54.5 [address] [address] [address] Jan, Type 1 diabetes mellitus without complic ations E10.9 ; Anemia D64.9 ; Chronic kidney disease, unspecified N18.9 ; Migraine without aura and without status migrainosus, not intractable G43.009 and Other insomnia G47.09 [address] [address] [address] Jan, [address] [address] [address] Dec, Low back pain M54.5 [address] [address] Dec, [facility] [address] [address] Dec, [facility] [address] [address] 08 Dec, 2016 Shortness of breath R06.02 ; Type 1 diab etes mellitus without complications E10.9 and Leg swelling M79.89 [facility] [address] [address] Nov, Low back pain M54.5 [facility] [address] [address] Nov, Viral syndrome B34.9 [facility] [address] [address] Oct, Low back pain M54.5 [facility] [address] [address] Oct, [address] [address] Oct, Low back pain M54.5 [address] [address] [address] Sep, [address] [address] [address] Sep, Fatigue, unspecified type R53.83 ; Type 1 diabetes mellitus without complications E10.9 and Anemia D64.9 [address] [address] [address] Sep, Low back pain M54.5 [address] [address] [address] Sep, Type 1 diabetes mellitus with hyperglyce sebastian E10.65 [address] [address] [address] Aug, Type 1 diabetes mellitus without complic ations E10.9 [address] [address] [address] Aug, [address] [address] [address] Aug, [address] [address] [address] Jul, [place] [address] [address] 14 Jul, 2016 Low back pain M54.5 [address] [address] [address] 12 Jul, 2016 Hyperkalemia, diminished renal excretion E87.5 [facility] [address] [address] Jul, Hyperkalemia, diminished renal excretion E87.5 [facility] [address] [address] Jun, [facility] [address] [address] Jun, Low back pain M54.5 [facility] [address] [address] Jun, Anemia D64.9 ; Autonomic neuropathy G90. 9 and Postural hypotension I95.1 [address] [address] Jun, [facility] [address] [address] May, Type 1 diabetes mellitus with complicati ons E10.8 and Anemia D64.9 [facility] [address] [address] May, Low back pain M54.5 [address] [address] Apr, [facility] [address] [address] Apr, Low back pain M54.5 [address] [address] Apr, [facility] [address] [address] Apr, [facility] [address] [address] March, Low back pain M54.5 and Other chronic pa in G89.29 [facility] [address] [address] March, Type 1 diabetes mellitus without complic ations E10.9 [facility] [id number] [place] [address] March, [facility] [address] [address] March, [facility] [address] [address] Feb, [facility] [address] [address] Feb, Type 1 diabetes mellitus without complic ations E10.9 [facility] [address] [address] Feb, Trochanteric bursitis, right hip M70.61 [address] [address] [address] Jan, [facility] [address] [address] Jan, [facility] [address] [address] Dec, Type 1 diabetes mellitus with complicati ons E10.8 [address] [address] Dec, [facility] [address] [address] Dec, Anemia D64.9 ; Autonomic neuropathy G90. 9 and Postural hypotension I95.1 [address] [address] Dec, [facility] [address] [address] Nov, Sore throat J02.9 [facility] [address] [address] Nov, Type 1 diabetes mellitus with complicati ons E10.8 [facility] [address] [address] Nov, Type 1 diabetes mellitus with diabetic n ephropathy E10.21 ; Proteinuria, unspecified R80.9 and Chronic kidney disease, unspecified N18.9 [facility] [address] [address] Nov, [facility] [address] [address] Nov, Trochanteric bursitis, right hip M70.61 [facility] [address] [address] Nov, [facility] [address] [address] Oct, [facility] [address] [address] Oct, [facility] [address] [address] Oct, [facility] [address] [address] Sep, [facility] [address] [address] Sep, [facility] [address] [address] Sep, Type 2 diabetes mellitus with complicati on E11.8 and Right hip pain M25.551 [facility] [address] [address] Sep, [facility] [address] [address] Aug, [facility] [address] [address] Aug, [facility] [address] [address] Aug, [facility] [address] [address] Aug, Type 1 diabetes mellitus without complic ations E10.9 [facility] [address] [place] [address] 16 Jul, 2015 [facility] [address] [address] 15 Jul, 2015 [facility] [address] [address] Jul, [facility] [address] [address] Jun, [facility] [address] [address] Jun, [facility] [address] [address] Jun, [facility] [address] [address] Jun, [facility] [address] [address] Jun, [facility] [address] [address] Jun, Diabetes mellitus without mention of com plication, type I [juvenile type], not stated as uncontrolled 250.01 [facility] [address] [address] May, [facility] [address] [address] May, [facility] [address] [address] May, [facility] [address] [address] May, Autonomic neuropathy 337.9 ; Postural hy potension 458.0 and Anemia 285.9 [facility] [address] [address] May, [facility] [address] [address] Apr, [facility] [address] [address] Apr, [facility] [place] [facility] [address] [facility] [id number] [facility] [place] [address] Apr, [facility] [place] [facility] [address] [facility] [id number] [facility] [place] [address] Apr, [facility] [place] [facility] [address] [id number] [place] [address] Apr, [facility] [place] [facility] [address] [id number] [place] [address] March, [facility] [place] [facility] [address] [facility] [id number] [facility] [place] [address] March, [facility] [place] [facility] [address] [id number] [place] [address] March, [facility] [place] [facility] [address] [id number] [place] [address] March, [facility] [place] [facility] [address] [id number] [facility] [place] [address] March, [facility] [place] [facility] [address] [id number] [place] [address] Feb, [facility] [place] [facility] [address] [id number] [facility] [place] [address] 14 Feb, 2015 [facility] [place] [facility] [address] [id number] [place] [address] Feb, [facility] [place] [facility] [address] [id number] [place] [address] 30 Jan, 2015 [facility] [place] [facility] [address] [facility] [id number] [facility] [place] [address] Jan, [facility] [place] [facility] [address] [facility] [id number] [place] [address] Jan, [facility] [place] [facility] [address] [id number] [place] [address] Jan, [facility] [place] [facility] [address] [id number] [facility] [place] [address] Jan, [facility] [place] [facility] [address] [id number] [place] [address] Jan, [facility] [place] [facility] [address] [facility] [id number] [facility] [place] [address] Jan, [facility] [place] [facility] [address] [id number] [place] [address] Jan, [facility] [place] [facility] [address] [id number] [place] [address] Jan, [facility] [place] [facility] [address] [id number] [place] [address] Jan, [facility] [place] [facility] [address] [facility] [id number] [place] [address] Jan, [facility] [place] [facility] [address] [id number] [place] [address] Jan, [facility] [place] [facility] [address] [id number] [place] [address] Jan, [facility] [address] [id number] [place] [address] Dec, 2014 [facility] [address] [id number] [place] [address] Dec, [facility] [address] [id number] [place] [address] Dec, 2014 [facility] [address] [id number] [place] [address] Dec, 2014 [facility] [address] [id number] [place] [address] Dec, 2014 [facility] [address] [id number] [place] [address] Dec, 2014 [facility] [address] [id number] [place] [address] Dec, 2014 [facility] [address] [id number] [place] [address] Dec, [facility] [address] [id number] [place] [address] Nov, [facility] [address] [id number] [place] [address] Nov, [facility] [address] [id number] [place] [address] Nov, [facility] [address] [id number] [place] [address] Nov, [facility] [address] [id number] [place] [address] Nov, [facility] [address] [id number] [place] [address] Nov, [facility] [facility] [address] [id number] [place] [address] Nov, [facility] [place] [facility] [address] [id number] [place] [address] Nov, [facility] [place] [facility] [address] [id number] [place] [address] Nov, [facility] [place] [facility] [address] [id number] [place] [address] Oct, [facility] [place] [facility] [address] [id number] [place] [address] Oct, [facility] [place] [facility] [address] [id number] [place] [address] Oct, [facility] [place] [facility] [address] [id number] [place] [address] Oct, [facility] [place] [facility] [address] [id number] [place] [address] Oct, [facility] [place] [facility] [address] [id number] [place] [address] Oct, [facility] [place] [facility] [address] [id number] [place] [address] Oct, [facility] [place] [facility] [address] [id number] [place] [address] Oct, [facility] [place] [facility] [address] [id number] [place] [address] Oct, [facility] [place] [facility] [address] [id number] [place] [address] Oct, [facility] [place] [facility] [address] [id number] [place] [address] Oct, [facility] [place] [facility] [address] [id number] [place] [address] Oct, [facility] [place] [facility] [address] [id number] [place] [address] Oct, [facility] [place] [facility] [address] [id number] [place] [address] Oct, [facility] [place] [facility] [address] [id number] [place] [address] Sep, [facility] [place] [facility] [address] [id number] [place] [address] Sep, [facility] [place] [facility] [address] [id number] [place] [address] Sep, [facility] [place] [facility] [address] [id number] [place] [address] Sep, [facility] [place] [facility] [address] [id number] [place] [address] Aug, [facility] [place] [facility] [address] [id number] [place] [address] Aug, [facility] [place] [facility] [address] [id number] [place] [address] Aug, [facility] [place] [facility] [address] [id number] [place] [address] Aug, [facility] [place] [facility] [address] [id number] [place] [address] Aug, [facility] [place] [facility] [address] [id number] [place] [address] Aug, [facility] [place] [facility] [address] [id number] [place] [address] Aug, [facility] [place] [facility] [address] [facility] [id number] [place] [address] 06 Aug, 2013 [facility] [place] [facility] [address] [id number] [place] [address] Aug, [facility] [place] [facility] [address] [id number] [place] [address] Aug, [facility] [place] [facility] [address] [id number] [place] [address] 29 Sep, 2013 [facility] [place] [facility] [address] [id number] [place] [address] 29 Sep, 2013 [facility] [place] [facility] [address] [id number] [place] [address] 29 Jul, 2013 [facility] [place] [facility] [address] [id number] [place] [address] 29 Jul, 2013 [facility] [place] [facility] [address] [id number] [place] [address] 22 Jul, 2013 [facility] [place] [facility] [address] [id number] [place] [address] 22 Jul, 2013 [facility] [place] [facility] [address] [id number] [place] [address] 19 Jul, 2013 [facility] [place] [facility] [address] [id number] [place] [address] 19 Jul, 2013 [facility] [place] [facility] [address] [id number] [place] [address] 11 Jul, 2013 [facility] [place] [facility] [address] [id number] [place] [address] 11 Jul, 2013 [facility] [place] [facility] [address] [id number] [place] [address] 10 Sep, 2013 [facility] [place] [facility] [address] [id number] [place] [address] 10 Sep, 2013 [facility] [place] [facility] [address] [id number] [place] [address] 08 Sep, 2013 [facility] [place] [facility] [address] [id number] [place] [address] 08 Sep, 2013 [facility] [place] [facility] [address] [id number] [facility] [place] [address] Jul, 2013 [facility] [place] [facility] [address] [id number] [place] [address] 03 Jul, 2013 [facility] [place] [facility] [address] [facility] [id number] [facility] [place] [address] Jul, 2013 [facility] [place] [facility] [address] [id number] [facility] [place] [address] Jul, 2013 [facility] [place] [facility] [address] [facility] [id number] [place] [address] Jun, [facility] [place] [facility] [address] [id number] [place] [address] Jun, [facility] [place] [facility] [address] [id number] [place] [address] Jun, [facility] [place] [facility] [address] [id number] [place] [address] Jun, [facility] [place] [facility] [address] [facility] [id number] [place] [address] Jun, [facility] [place] [facility] [address] [id number] [place] [address] Jun, [facility] [place] [facility] [address] [id number] [place] [address] Jun, [facility] [place] [facility] [address] [id number] [place] [address] Jun, [facility] [place] [facility] [address] [facility] [id number] [place] [address] Jun, [facility] [place] [facility] [address] [id number] [place] [address] Jun, [facility] [place] [facility] [address] [facility] [id number] [place] [address] Jun, [facility] [place] [facility] [address] [id number] [place] [address] Jun, [facility] [place] [facility] [address] [facility] [id number] [facility] [place] [address] Jun, [facility] [place] [facility] [address] [facility] [id number] [facility] [place] [address] Jun, [facility] [place] [facility] [address] [facility] [id number] [place] [address] Jun, [facility] [place] [facility] [address] [id number] [place] [address] May, [facility] [place] [facility] [address] [facility] [id number] [place] [address] May, [facility] [place] [facility] [address] [facility] [id number] [facility] [place] [address] May, [facility] [place] [facility] [address] [id number] [place] [address] May, [facility] [place] [facility] [address] [id number] [place] [address] May, [facility] [place] [facility] [address] [id number] [place] [address] May, [facility] [place] [facility] [address] [facility] [id number] [place] [address] May, [facility] [place] [facility] [address] [id number] [place] [address] May, [facility] [place] [facility] [address] [id number] [place] [address] Apr, [facility] [place] [facility] [address] [id number] [place] [address] Apr, [facility] [place] [facility] [address] [facility] [id number] [place] [address] Apr, [facility] [place] [facility] [address] [id number] [place] [address] Apr, [facility] [place] [facility] [address] [id number] [place] [address] Apr, [facility] [place] [facility] [address] [id number] [place] [address] Apr, [facility] [place] [facility] [address] [facility] [id number] [place] [address] Apr, [facility] [place] [facility] [address] [facility] [id number] [place] [address] Apr, [facility] [place] [facility] [address] [facility] [id number] [place] [address] Apr, [facility] [place] [facility] [address] [id number] [place] [address] Apr, [facility] [place] [facility] [address] [facility] [id number] [place] [address] Apr, [facility] [place] [facility] [address] [id number] [place] [address] Apr, [facility] [place] [facility] [address] [id number] [place] [address] Apr, [facility] [place] [facility] [address] [id number] [place] [address] Apr, [facility] [place] [facility] [address] [id number] [place] [address] Apr, [facility] [place] [facility] [address] [id number] [place] [address] Apr, [facility] [place] [facility] [address] [id number] [place] [address] Apr, [facility] [place] [facility] [address] [id number] [place] [address] Apr, [facility] [place] [facility] [address] [id number] [place] [address] March, [facility] [place] [facility] [address] [facility] [id number] [place] [address] March, [facility] [place] [facility] [address] [id number] [place] [address] March, [facility] [place] [facility] [address] [id number] [place] [address] March, [facility] [place] [facility] [address] [id number] [place] [address] March, [facility] [place] [facility] [address] [id number] [place] [address] March, [facility] [place] [facility] [address] [id number] [facility] [place] [address] March, [facility] [place] [facility] [address] [id number] [place] [address] March, [facility] [place] [facility] [address] [id number] [facility] [place] [address] March, [facility] [place] [facility] [address] [facility] [id number] [place] [address] Feb, [facility] [place] [facility] [address] [id number] [place] [address] Feb, [facility] [place] [facility] [address] [id number] [place] [address] Feb, [facility] [place] [facility] [address] [id number] [place] [address] Feb, [facility] [place] [facility] [address] [id number] [place] [address] Feb, [facility] [place] [facility] [address] [id number] [place] [address] Feb, [facility] [place] [facility] [address] [id number] [place] [address] Feb, [facility] [place] [facility] [address] [id number] [place] [address] Feb, [facility] [place] [facility] [address] [id number] [place] [address] Feb, [facility] [place] [facility] [address] [id number] [place] [address] Feb, [facility] [place] [facility] [address] [id number] [place] [address] Feb, [facility] [place] [facility] [address] [id number] [place] [address] Feb, [facility] [place] [facility] [address] [id number] [facility] [place] [address] 08 Feb, 2014 [facility] [place] [facility] [address] [facility] [id number] [facility] [place] [address] Jan, [facility] [place] [facility] [address] [facility] [id number] [facility] [place] [address] Jan, [facility] [place] [facility] [address] [id number] [place] [address] Jan, [facility] [place] [facility] [address] [facility] [id number] [facility] [place] [address] Jan, [facility] [place] [facility] [address] [facility] [id number] [facility] [place] [address] Jan, [facility] [place] [facility] [address] [id number] [place] [address] Jan, [facility] [place] [facility] [address] [id number] [place] [address] Jan, [facility] [place] [facility] [address] [id number] [place] [address] Jan, [facility] [place] [facility] [address] [id number] [facility] [place] [address] Dec, [facility] [place] [facility] [address] [id number] [place] [address] Dec, [facility] [place] [facility] [address] [id number] [place] [address] Dec, [facility] [place] [facility] [address] [id number] [place] [address] Dec, [facility] [place] [facility] [address] [facility] [id number] [place] [address] Dec, [facility] [place] [facility] [address] [id number] [place] [address] Dec, [facility] [place] [facility] [address] [id number] [place] [address] Dec, [facility] [place] [facility] [address] [id number] [place] [address] Dec, [facility] [place] [facility] [address] [id number] [place] [address] Dec, [facility] [place] [facility] [address] [id number] [place] [address] Dec, [facility] [place] [facility] [address] [id number] [place] [address] Nov, [facility] [place] [facility] [address] [id number] [place] [address] Nov, [facility] [place] [facility] [address] [id number] [place] [address] Nov, [facility] [place] [facility] [address] [id number] [place] [address] Nov, [facility] [place] [facility] [address] [id number] [place] [address] Nov, [facility] [place] [facility] [address] [id number] [place] [address] Nov, [facility] [place] [facility] [address] [id number] [place] [address] Nov, [facility] [place] [facility] [address] [id number] [place] [address] Nov, [facility] [place] [facility] [address] [id number] [place] [address] Nov, [facility] [place] [facility] [address] [id number] [place] [address] Nov, [facility] [place] [facility] [address] [id number] [place] [address] Oct, [facility] [place] [facility] [address] [id number] [place] [address] Oct, [facility] [place] [facility] [address] [id number] [place] [address] Oct, [facility] [place] [facility] [address] [id number] [place] [address] Oct, [facility] [place] [facility] [address] [id number] [place] [address] 17 Oct, 2013 [facility] [place] [facility] [address] [id number] [place] [address] 17 Oct, 2013 [facility] [place] [facility] [address] [id number] [place] [address] 16 Oct, 2013 [facility] [place] [facility] [address] [id number] [place] [address] 16 Oct, 2013 [facility] [place] [facility] [address] [id number] [place] [address] Oct, [facility] [place] [facility] [address] [id number] [place] [address] Oct, [facility] [place] [facility] [address] [id number] [place] [address] Oct, [facility] [place] [facility] [address] [id number] [place] [address] Oct, [facility] [place] [facility] [address] [id number] [place] [address] Oct, [facility] [place] [facility] [address] [id number] [place] [address] Oct, [facility] [place] [facility] [address] [id number] [place] [address] Sep, [facility] [place] [facility] [address] [id number] [place] [address] Sep, [facility] [place] [facility] [address] [id number] [place] [address] 18 Sep, 2013 [facility] [place] [facility] [address] [id number] [place] [address] 18 Sep, 2013 [facility] [place] [facility] [address] [id number] [place] [address] Sep, [facility] [place] [facility] [address] [id number] [place] [address] Sep, [facility] [place] [facility] [address] [id number] [place] [address] Aug, [facility] [place] [facility] [address] [id number] [place] [address] 31 Aug, 2012 [facility] [place] [facility] [address] [id number] [place] [address] 17 Aug, 2012 [facility] [place] [facility] [address] [id number] [place] [address] 17 Aug, 2012 [facility] [place] [facility] [address] [id number] [place] [address] 10 Aug, 2012 [facility] [place] [facility] [address] [id number] [place] [address] 10 Aug, 2012 [facility] [place] [facility] [address] [id number] [place] [address] 07 Aug, 2012 [facility] [place] [facility] [address] [id number] [place] [address] 02 Aug, 2013 [facility] [place] [facility] [address] [id number] [place] [address] 02 Aug, 2013 [facility] [place] [facility] [address] [id number] [place] [address] 25 Sep, 2012 [facility] [place] [facility] [address] [id number] [place] [address] 23 Sep, 2012 [facility] [place] [facility] [address] [id number] [place] [address] 21 Sep, 2012 [facility] [place] [facility] [address] [id number] [place] [address] 20 Sep, 2012 [facility] [place] [facility] [address] [id number] [place] [address] 18 Sep, 2012 [facility] [place] [facility] [address] [id number] [place] [address] 17 Sep, 2012 [facility] [place] [facility] [address] [id number] [place] [address] 16 Sep, 2012 [facility] [place] [facility] [address] [id number] [place] [address] 11 Sep, 2012 [facility] [place] [facility] [address] [id number] [place] [address] 09 Sep, 2012 [facility] [place] [facility] [address] [id number] [facility] [place] [address] Jul, 2012 [facility] [place] [facility] [address] [facility] [id number] [facility] [place] [address] Jul, 2012 [facility] [place] [facility] [address] [facility] [id number] [place] [address] Jul, [facility] [place] [facility] [address] [id number] [facility] [place] [address] Jun, [facility] [place] [facility] [address] [facility] [id number] [facility] [place] [address] Jun, [facility] [address] [id number] [place] [address] Jun, [facility] [address] [id number] [place] [address] Jun, [facility] [address] [id number] [place] [address] Jun, [facility] [address] [id number] [place] [address] Jun, [facility] [address] [id number] [place] [address] Jun, [facility] [address] [id number] [place] [address] Jun, [facility] [address] [id number] [place] [address] Jun, [facility] [address] [facility] [id number] [place] [address] May, [facility] [address] [id number] [place] [address] May, [facility] [address] [id number] [place] [address] May, [facility] [address] [id number] [place] [address] May, [facility] [address] [id number] [facility] [place] [address] May, [facility] [address] [id number] [facility] [place] [address] May, [facility] [address] [facility] [id number] [facility] [place] [address] May, [facility] [address] [id number] [place] [address] March, [facility] [address] [id number] [facility] [place] [address] March, [facility] [address] [id number] [facility] [place] [address] March, [facility] [address] [id number] [place] [address] Dec, [facility] [address] [id number] [place] [address] Nov, [facility] [address] [id number] [place] [address] Aug, [facility] [address] [id number] [place] [address] Aug, [facility] [address] [id number] [place] [address] Jun, [facility] [address] [id number] [place] [address] Jun, [facility] [address] [id number] [place] [address] Jun, [facility] [address] [facility] [id number] [facility] [place] [address] Jun, [facility] [address] [id number] [facility] [place] [address] May, [facility] [address] [id number] [facility] [place] [address] May, [facility] [address] [id number] [place] [address] May, [facility] [address] [id number] [place] [address] May, [facility] [address] [id number] [place] [address] May, [facility] [address] [id number] [place] [address] May, [facility] [address] [id number] [place] [address] May, [facility] [address] [id number] [place] [address] Apr, [facility] [address] [id number] [place] [address] Apr, [facility] [address] [id number] [place] [address] Apr, [facility] [address] [id number] [place] [address] Apr, [facility] [address] [id number] [place] [address] March, [facility] [address] [id number] [place] [address] March, [facility] [address] [id number] [place] [address] March, [facility] [address] [id number] [place] [address] March, [facility] [address] [id number] [place] [address] March, [facility] [address] [id number] [place] [address] March, [facility] [address] [id number] [place] [address] March, [facility] [address] [id number] [place] [address] March, [facility] [address] [id number] [place] [address] March, [facility] [address] [facility] [id number] [facility] [place] [address] Feb, [facility] [address] [facility] [id number] [facility] [place] [address] Feb, [facility] [address] [facility] [id number] [facility] [place] [address] Jan, [facility] [address] [id number] [facility] [place] [address] 27 Jan, 2012 [facility] [address] [facility] [id number] [facility] [place] [address] 16 Jan, 2012 [facility] [address] [id number] [place] [address] 05 Jan, 2012 [facility] [address] [id number] [place] [address] Dec, [facility] [address] [id number] [place] [address] 16 Dec, 2011 [facility] [address] [id number] [place] [address] 15 Dec, 2011 [facility] [address] [id number] [place] [address] Nov, [facility] [address] [id number] [place] [address] Oct, [facility] [address] [id number] [place] [address] 15 Oct, 2011 [facility] [address] [id number] [place] [address] 15 Oct, 2011 [facility] [address] [id number] [place] [address] 14 Oct, 2011 [facility] [address] [id number] [place] [address] 14 Oct, 2011 [facility] [address] [id number] [place] [address] Oct, [facility] [address] [id number] [place] [address] Oct, [facility] [address] [id number] [place] [address] Oct, [facility] [address] [id number] [place] [address] Sep, [facility] [address] [id number] [place] [address] Sep, [facility] [id number] [place] [address] Sep, [facility] [address] [id number] [place] [address] Sep, [facility] [id number] [place] [address] Sep, [facility] [address] [id number] [place] [address] Sep, [facility] [id number] [place] [address] Sep, [facility] [address] [id number] [place] [address] Sep, [facility] [address] [address] Sep, [facility] [address] [id number] [place] [address] Aug, [facility] [address] [id number] [place] [address] Jul, [facility] [address] [id number] [place] [address] Oct, [facility] [id number] [place] [address] Oct, [facility] [id number] [place] [address] Oct, IMMUNIZATIONS No Known Immunizations SOCIAL HISTORY [...]
[2020-03-19 06:03] LABS: BASOPHILS % (AUTO) 1 % (0-10); EOSINOPHILS # (AUTO) 0.2 10^3/uL (0.0-0.3); EOSINOPHILS % (AUTO) 3 % (0-10); HEMATOCRIT 32 % (35-52); HEMOGLOBIN 10.2 G/DL (11.5-16.0); LYMPHOCYTES # (AUTO) 1.4 X 10^3 (1.0-4.0); LYMPHOCYTES % (AUTO) 23 % (12-44); MEAN CORPUSCULAR HEMOGLOBIN 32 PG (25-34); MEAN CORPUSCULAR HGB CONC 32 G/DL (32-36); MEAN CORPUSCULAR VOLUME 102 FL (80-99); MEAN PLATELET VOLUME 11.1 FL (7.4-10.4); MONOCYTES # (AUTO) 0.3 X 10^3 (0.0-1.0); MONOCYTES % (AUTO) 5 % (0-12); NEUTROPHILS # (AUTO) 4.2 X 10^3 (1.8-7.8); NEUTROPHILS % (AUTO) 69 % (42-75); PLATELET COUNT 206 10^3/uL (130-400); RED CELL DISTRIBUTION WIDTH 14.9 % (10.0-14.5); WHITE BLOOD COUNT 6.1 10^3/uL (4.3-11.0)
--- OUTSIDE RECORDS SUMMARY | 2020-03-19 06:03 | XMS REPORT ---
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 57950224 Problem Chronic kidney disease, unspecified N18.9 Active 320211445 Problem Anemia, unspecified D64.9 Active 304832165 Problem Irritable bowel K58.9 Active 1074 3008 Problem Irritable bowel syndrome with diarrhea K58.0 Active 744685925 Problem Claudication I73.9 Active 6030601 6 Problem Intractable migraine without aura and with status migr ainosus G43.011 Active 189932663 Problem Peritoneal dialysis status Z99.2 Act moody 533181465 Problem Migraine without aura and without status migrain osus, not intractable G43.009 Active 502059701 Problem Other insomnia G47.09 Active 28118 2000 Problem Dysthymia F34.1 Active 04255490 Problem Chronic kidney disease, stage 4 (severe) N18.4 Active 759101776 Problem Migraine with aura and without status migrainosu s, not intractable G43.109 Active 8574850 Problem Autonomic neuropathy G90.9 Active 108537626 Problem Type 1 diabetes mellitus with complications E10.8 Active 103530165 Problem Menorrhagia with regular cycle N92.0 Active 300228260 Problem Other chronic pain G89.29 Active 8 9324489 Problem Lymphedema I89.0 Active 361015757 Problem Essential hypertension I10 Active 08658593 Problem Moderate episode of recurrent major depressive disorder F33.1 Active 540543603 Problem Type 1 diabetes mellitus without complications E10 .9 Active 475437600 Problem Primary insomnia F51.01 Active 397 2004 Problem Migraine G43.909 Active 13901371 Problem Low back pain M54.5 Active 225229 009 Problem Diastolic dysfunction I51.89 Active 0745359 Problem ESRF (end stage renal failure) N18.6 Active 82766637 Problem Restless legs G25.81 Active 843673 08 Problem Hyperthyroidism E05.90 Active 3448 6009 ALLERGIES No Information ENCOUNTERS Encounter Location Date Diagnosis [facility] [address] [address] Jan, [facility] [address] [id number] [place] [id number] Dec, [facility] [address] [address] Oct, Restless legs G25.81 [facility] [address] [address] Oct, Encounter for Medicare annual wellness e xam Z00.00 ; 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 ; Migraine without aura and without status migrainosus, not intractable G43.009 ; Chronic kidney disease, stage 4 (severe) N18.4 ; Claudication I73.9 ; Peritoneal dialysis status Z99.2 ; Diastolic dysfunction I51.89 ; Primary insomnia F51.01 and Burn T30.0 [facility] [address] [address] Sep, Moderate episode of recurrent major depr essive disorder F33.1 and Primary insomnia F51.01 [facility] [address] [address] Aug, Hyperthyroidism E05.90 [facility] [address] [address] May, Restless legs G25.81 [facility] [address] [address] May, [facility] [address] [address] May, [facility] [address] [address] May, Type 1 diabetes mellitus with hypoglycem ia without coma E10.649 ; ESRF (end stage renal failure) N18.6 ; Leg cramps R25.2 ; Restless legs G25.81 and Low back pain M54.5 [facility] [address] [address] Apr, Low back pain M54.5 [facility] [address] [address] Apr, [facility] [address] [address] March, Low back pain M54.5 [facility] [address] [address] March, [facility] [address] [address] Feb, Low back pain M54.5 [facility] [address] [address] Jan, Low back pain M54.5 [facility] [address] [address] Jan, [facility] [address] [address] Jan, [facility] [address] [address] Jan, [facility] [address] [address] Dec, Type 1 diabetes mellitus with hypoglycem ia without coma E10.649 and Low back pain M54.5 [facility] [address] [address] Dec, Low back pain M54.5 [facility] [address] [address] Dec, Diastolic dysfunction I51.89 ; Essential hypertension I10 and Chronic kidney disease, stage 4 (severe) N18.4 [place] [address] [address] 11 Dec, 2018 RUQ abdominal pain R10.11 ; Type 1 diabe camryn mellitus without complications E10.9 ; Therapeutic drug monitoring Z51.81 ; Migraine with aura and without status migrainosus, not intractable G43.109 and Intractable migraine without aura and with status migrainosus G43.011 [place] [address] [address] Nov, Low back pain M54.5 [place] [address] [address] Nov, [place] [address] [address] Nov, Intractable migraine without aura and wi th status migrainosus G43.011 ; Lymphedema I89.0 ; Pain in right shoulder M25.511 ; Other chronic pain G89.29 ; Irritable bowel syndrome with diarrhea K58.0 ; Type 1 diabetes mellitus without complications E10.9 and Essential hypertension I10 [place] [address] [address] Oct, Low back pain M54.5 [place] [address] [address] Oct, [place] [address] [address] Oct, Orthostatic hypotension I95.1 ; Shortnes s of breath R06.02 ; Leg swelling M79.89 ; Type 1 diabetes mellitus without complications E10.9 and Claudication I73.9 [place] [address] [address] Sep, Low back pain M54.5 [place] [address] [address] Sep, Low back pain M54.5 [place] [address] [address] Aug, [facility] [address] [address] Aug, Migraine without aura and without status migrainosus, not intractable G43.009 [facility] [address] [address] Aug, Low back pain M54.5 [facility] [address] [facility] [id number] [place] [address] Aug, Acute rhinosinusitis J01.90 and Sore throat J02.9 [facility] [address] [address] Jul, Low back pain M54.5 [facility] [address] [address] Jul, Migraine without aura and without status migrainosus, not intractable G43.009 [facility] [address] [address] Jun, Low back pain M54.5 [facility] [address] [address] Jun, [facility] [address] [address] Jun, Orthostatic hypotension I95.1 ; Shortnes s of breath R06.02 ; Type 1 diabetes mellitus without complications E10.9 and Leg swelling M79.89 [facility] [address] [address] Jun, Low back pain M54.5 [facility] [address] [address] Jun, [facility] [address] [address] May, Migraine without aura and without status migrainosus, not intractable G43.009 [facility] [address] [address] May, Migraine without aura and without status migrainosus, not intractable G43.009 ; Restless legs syndrome G25.81 ; Leg cramps R25.2 ; Chronic kidney disease, unspecified N18.9 ; Postural hypotension I95.1 ; Diarrhea, unspecified type R19.7 and Cough R05 [facility] [address] [address] May, [facility] [address] [address] May, [facility] [address] [address] May, Orthostatic hypotension I95.1 ; Shortnes s of breath R06.02 ; Type 1 diabetes mellitus with complications E10.8 and Leg swelling M79.89 [place] [address] [address] May, [place] [address] [address] May, Low back pain M54.5 [place] [address] [address] Apr, Type 1 diabetes mellitus with hyperglyce sebastian E10.65 [place] [address] [address] Apr, Low back pain M54.5 [facility] [address] [address] Apr, [facility] [address] [address] Apr, [facility] [address] [address] March, [place] [address] [address] March, Low back pain M54.5 [facility] [address] [address] March, [facility] [address] [address] Feb, [facility] [address] [address] Feb, Low back pain M54.5 [facility] [address] [address] Jan, Restless legs syndrome G25.81 [place] [address] [address] Jan, Low back pain M54.5 [place] [address] [address] Jan, [place] [address] [address] Jan, Type 1 diabetes mellitus without complic ations E10.9 ; Low back pain M54.5 ; Cough R05 ; Diarrhea, unspecified type R19.7 ; Migraine without aura and without status migrainosus, not intractable G43.009 and Uses control Z30.9 [place] [address] [address] Dec, Low back pain M54.5 [place] [address] [address] Dec, [place] [address] [address] Nov, Well woman exam Z01.419 ; Menorrhagia wi th regular cycle N92.0 ; Vaginal dryness N89.8 and Migraine with aura and without status migrainosus, not intractable G43.109 [place] [address] [address] Nov, [place] [address] [address] Nov, Low back pain M54.5 [place] [address] [address] Oct, Low back pain M54.5 [facility] [address] [address] Oct, Migraine without aura and without status migrainosus, not intractable G43.009 [facility] [address] [address] Sep, Low back pain M54.5 [facility] [address] [address] Sep, [facility] [address] [address] Sep, Migraine without aura and without status migrainosus, not intractable G43.009 [facility] [address] [address] Sep, Type 1 diabetes mellitus with hypoglycem ia without coma E10.649 ; Anemia D64.9 ; Migraine without aura and without status migrainosus, not intractable G43.009 ; Chronic kidney disease, unspecified N18.9 ; Autonomic neuropathy G90.9 and Postural hypotension I95.1 [place] [address] [address] Sep, Low back pain M54.5 [facility] [address] [address] Aug, Low back pain M54.5 [facility] [address] [address] 14 Jul, 2017 [facility] [address] [address] Jul, Low back pain M54.5 [facility] [address] [address] Jun, [facility] [address] [address] Jun, Low back pain M54.5 [facility] [address] [address] Jun, Migraine without aura and without status migrainosus, not intractable G43.009 [facility] [address] [address] Jun, Type 1 diabetes mellitus with hyperglyce sebastian E10.65 ; Dysthymia F34.1 and Migraine without aura and without status migrainosus, not intractable G43.009 [facility] [address] [address] Jun, [facility] [address] [address] May, Type 1 diabetes mellitus with hyperglyce sebastian E10.65 [facility] [address] [address] May, Low back pain M54.5 [facility] [address] [address] May, Type 1 diabetes mellitus with hyperglyce sebastian E10.65 [facility] [address] [address] Apr, [facility] [address] [address] Apr, Chronic kidney disease, stage 4 (severe) N18.4 [facility] [address] [address] Apr, Low back pain M54.5 [facility] [address] [address] March, [facility] [address] [address] March, Low back pain M54.5 [facility] [address] [address] Feb, [facility] [address] [address] Feb, [facility] [address] [address] Feb, Low back pain M54.5 [place] [address] [address] Feb, Low back pain M54.5 [place] [address] [address] Feb, Migraine without aura and without status migrainosus, not intractable G43.009 [place] [address] [address] Feb, [place] [address] [address] Jan, Low back pain M54.5 [place] [address] [address] Jan, Type 1 diabetes mellitus without complic ations E10.9 ; Anemia D64.9 ; Chronic kidney disease, unspecified N18.9 ; Migraine without aura and without status migrainosus, not intractable G43.009 and Other insomnia G47.09 [place] [address] [address] Jan, [place] [address] [address] Dec, Low back pain M54.5 [place] [address] [address] Dec, [place] [address] [address] Dec, [place] [address] [address] 08 Dec, 2016 Shortness of breath R06.02 ; Type 1 diab etes mellitus without complications E10.9 and Leg swelling M79.89 [place] [address] [address] Nov, Low back pain M54.5 [place] [address] [address] Nov, Viral syndrome B34.9 [place] [address] [address] Oct, Low back pain M54.5 [facility] [address] [address] Oct, [facility] [address] [address] Oct, Low back pain M54.5 [facility] [address] [address] Sep, [facility] [address] [address] Sep, Fatigue, unspecified type R53.83 ; Type 1 diabetes mellitus without complications E10.9 and Anemia D64.9 [place] [address] [address] Sep, Low back pain M54.5 [facility] [address] [address] Sep, Type 1 diabetes mellitus with hyperglyce sebastian E10.65 [facility] [address] [address] Aug, Type 1 diabetes mellitus without complic ations E10.9 [facility] [address] [address] Aug, [facility] [address] [address] Aug, [facility] [address] [address] Jul, [facility] [address] [address] 14 Jul, 2016 Low back pain M54.5 [facility] [address] [address] 12 Jul, 2016 Hyperkalemia, diminished renal excretion E87.5 [facility] [address] [address] Jul, Hyperkalemia, diminished renal excretion E87.5 [facility] [address] [address] Jun, [facility] [address] [address] Jun, Low back pain M54.5 [facility] [address] [address] Jun, Anemia D64.9 ; Autonomic neuropathy G90. 9 and Postural hypotension I95.1 [place] [address] [address] Jun, [place] [address] [address] May, Type 1 diabetes mellitus with complicati ons E10.8 and Anemia D64.9 [place] [address] [address] May, Low back pain M54.5 [place] [address] [address] Apr, [place] [address] [address] Apr, Low back pain M54.5 [place] [address] [address] Apr, [place] [address] [address] Apr, [facility] [address] [address] March, Low back pain M54.5 and Other chronic pa in G89.29 [place] [address] [address] March, Type 1 diabetes mellitus without complic ations E10.9 [facility] [address] [address] March, [facility] [address] [place] [id number] [place] [address] March, [facility] [address] [address] Feb, [facility] [address] [address] Feb, Type 1 diabetes mellitus without complic ations E10.9 [place] [address] [address] Feb, Trochanteric bursitis, right hip M70.61 [place] [address] [address] Jan, [place] [address] [address] Jan, [place] [address] [address] Dec, Type 1 diabetes mellitus with complicati ons E10.8 [place] [address] [address] Dec, [place] [address] [address] Dec, Anemia D64.9 ; Autonomic neuropathy G90. 9 and Postural hypotension I95.1 [place] [address] [address] Dec, [place] [address] [address] Nov, Sore throat J02.9 [place] [address] [address] Nov, Type 1 diabetes mellitus with complicati ons E10.8 [place] [address] [address] Nov, Type 1 diabetes mellitus with diabetic n ephropathy E10.21 ; Proteinuria, unspecified R80.9 and Chronic kidney disease, unspecified N18.9 [place] [id number] [place] [address] 14 Nov, 2015 [facility] [id number] [place] [address] Nov, Trochanteric bursitis, right hip M70.61 [facility] [address] [id number] [place] [address] Nov, [facility] [address] [address] Oct, [facility] [address] [address] Oct, [facility] [address] [address] Oct, [facility] [address] [place] [id number] [place] [address] Sep, [facility] [address] [address] Sep, [facility] [address] [address] Sep, Type 2 diabetes mellitus with complicati on E11.8 and Right hip pain M25.551 [facility] [address] [address] Sep, [facility] [address] [address] Aug, [facility] [address] [address] Aug, [facility] [address] [address] Aug, [facility] [address] [address] Aug, Type 1 diabetes mellitus without complic ations E10.9 [facility] [address] [address] 16 Jul, 2015 [facility] [address] [place] [address] 15 Jul, 2015 [facility] [id number] [place] [address] Jul, [facility] [address] [address] Jun, [facility] [address] [address] Jun, [facility] [address] [address] Jun, [facility] [address] [address] Jun, [facility] [address] [address] Jun, [facility] [address] [address] Jun, Diabetes mellitus without mention of com plication, type I [juvenile type], not stated as uncontrolled 250.01 [facility] [address] [id number] [place] [address] May, [facility] [address] [address] May, [facility] [address] [address] May, [facility] [address] [address] May, Autonomic neuropathy 337.9 ; Postural hy potension 458.0 and Anemia 285.9 [facility] [address] [address] May, [facility] [address] [address] Apr, [facility] [address] [address] Apr, [facility] [address] [address] Apr, [facility] [place] [facility] [address] [facility] [id number] [facility] [address] Apr, [facility] [place] [facility] [address] [facility] [id number] [facility] [address] Apr, [facility] [place] [facility] [address] [id number] [place] [address] March, [facility] [place] [facility] [address] [id number] [place] [address] March, [facility] [place] [facility] [address] [facility] [id number] [place] [address] March, [facility] [place] [facility] [address] [id number] [place] [address] March, [facility] [place] [facility] [address] [id number] [place] [address] March, [facility] [place] [facility] [address] [id number] [facility] [address] Feb, [facility] [place] [facility] [address] [id number] [facility] [place] [address] Feb, [facility] [place] [facility] [address] [id number] [facility] [address] Feb, [facility] [place] [facility] [address] [id number] [place] [address] 30 Jan, 2015 [facility] [place] [facility] [address] [id number] [place] [address] Jan, [facility] [place] [facility] [address] [facility] [id number] [facility] [place] [address] 24 Jan, 2015 [facility] [place] [facility] [address] [id number] [place] [address] Jan, [facility] [place] [facility] [address] [id number] [place] [address] Jan, [facility] [place] [facility] [address] [id number] [facility] [place] [address] Jan, [facility] [place] [facility] [address] [id number] [place] [address] Jan, [facility] [place] [facility] [address] [facility] [id number] [place] [address] Jan, [facility] [place] [facility] [address] [id number] [place] [address] Jan, [facility] [place] [facility] [address] [id number] [place] [address] Jan, [facility] [place] [facility] [address] [id number] [place] [address] Jan, [facility] [place] [facility] [address] [id number] [place] [address] Jan, [facility] [place] [facility] [address] [id number] [place] [address] Jan, [facility] [place] [facility] [address] [id number] [place] [address] Dec, [facility] [place] [facility] [address] [id number] [place] [address] Dec, [facility] [place] [facility] [address] [id number] [place] [address] Dec, [facility] [place] [facility] [address] [id number] [place] [address] Dec, [facility] [place] [facility] [address] [facility] [id number] [place] [address] Dec, [facility] [place] [facility] [address] [id number] [place] [address] Dec, [facility] [place] [facility] [address] [id number] [place] [address] Dec, [facility] [place] [facility] [address] [id number] [place] [address] Dec, [facility] [place] [facility] [address] [id number] [place] [address] Nov, [facility] [place] [facility] [address] [id number] [place] [address] Nov, [facility] [place] [facility] [address] [id number] [place] [address] Nov, [facility] [place] [facility] [address] [id number] [place] [address] Nov, [facility] [place] [facility] [address] [id number] [place] [address] Nov, [facility] [place] [facility] [address] [id number] [place] [address] Nov, [facility] [place] [facility] [address] [id number] [place] [address] Nov, [facility] [place] [facility] [address] [id number] [place] [address] Nov, [facility] [place] [facility] [address] [id number] [place] [address] Nov, [facility] [place] [facility] [address] [id number] [place] [address] Oct, [facility] [place] [facility] [address] [id number] [place] [address] Oct, [facility] [place] [facility] [address] [id number] [place] [address] Oct, [facility] [place] [facility] [address] [id number] [place] [address] Oct, [facility] [place] [facility] [address] [id number] [place] [address] Oct, [facility] [place] [facility] [address] [id number] [place] [address] Oct, [facility] [place] [facility] [address] [id number] [place] [address] Oct, [facility] [place] [facility] [address] [id number] [place] [address] Oct, [facility] [place] [facility] [address] [id number] [place] [address] Oct, [facility] [place] [facility] [address] [id number] [place] [address] Oct, [facility] [place] [facility] [address] [id number] [place] [address] Oct, [facility] [place] [facility] [address] [id number] [place] [address] Oct, [facility] [place] [facility] [address] [id number] [place] [address] Oct, [facility] [place] [facility] [address] [id number] [place] [address] Oct, [facility] [place] [facility] [address] [id number] [place] [address] Sep, [facility] [place] [facility] [address] [id number] [place] [address] Sep, [facility] [place] [facility] [address] [id number] [place] [address] Sep, [facility] [place] [facility] [address] [id number] [place] [address] Sep, [facility] [place] [facility] [address] [id number] [place] [address] Aug, [facility] [place] [facility] [address] [id number] [place] [address] Aug, [facility] [place] [facility] [address] [id number] [place] [address] Aug, [facility] [place] [facility] [address] [id number] [place] [address] Aug, [facility] [place] [facility] [address] [id number] [place] [address] Aug, [facility] [place] [facility] [address] [id number] [place] [address] Aug, [facility] [place] [facility] [address] [id number] [place] [address] Aug, [facility] [place] [facility] [address] [id number] [place] [address] Aug, [facility] [place] [facility] [address] [id number] [place] [address] 02 Aug, 2014 [facility] [place] [facility] [address] [id number] [place] [address] 02 Aug, 2013 [facility] [place] [facility] [address] [id number] [place] [address] 29 Sep, 2013 [facility] [place] [facility] [address] [id number] [place] [address] 29 Sep, 2013 [facility] [place] [facility] [address] [id number] [place] [address] 29 Sep, 2013 [facility] [place] [facility] [address] [id number] [place] [address] 29 Sep, 2013 [facility] [place] [facility] [address] [id number] [place] [address] 22 Jul, 2013 [facility] [place] [facility] [address] [id number] [place] [address] 22 Jul, 2013 [facility] [place] [facility] [address] [id number] [place] [address] 19 Sep, 2013 [facility] [place] [facility] [address] [id number] [place] [address] 19 Sep, 2013 [facility] [place] [facility] [address] [id number] [place] [address] 11 Jul, 2013 [facility] [place] [facility] [address] [id number] [place] [address] 11 Jul, 2013 [facility] [place] [facility] [address] [id number] [place] [address] 10 Sep, 2013 [facility] [place] [facility] [address] [id number] [place] [address] 10 Sep, 2013 [facility] [place] [facility] [address] [id number] [place] [address] 08 Sep, 2013 [facility] [place] [facility] [address] [id number] [place] [address] 08 Sep, 2013 [facility] [place] [facility] [address] [id number] [place] [address] 03 Sep, 2013 [facility] [place] [facility] [address] [id number] [facility] [place] [address] Jul, 2013 [facility] [place] [facility] [address] [id number] [place] [address] Jul, [facility] [place] [facility] [address] [facility] [id number] [facility] [place] [address] Jul, [facility] [place] [facility] [address] [id number] [place] [address] Jun, [facility] [place] [facility] [address] [id number] [place] [address] Jun, [facility] [place] [facility] [address] [id number] [facility] [place] [address] Jun, [facility] [place] [facility] [address] [facility] [id number] [place] [address] Jun, [facility] [place] [facility] [address] [id number] [place] [address] Jun, [facility] [place] [facility] [address] [facility] [id number] [facility] [place] [address] Jun, [facility] [place] [facility] [address] [id number] [place] [address] Jun, [facility] [place] [facility] [address] [id number] [place] [address] Jun, [facility] [place] [facility] [address] [id number] [place] [address] Jun, [facility] [place] [facility] [address] [id number] [place] [address] Jun, [facility] [place] [facility] [address] [id number] [place] [address] Jun, [facility] [place] [facility] [address] [facility] [id number] [place] [address] Jun, [facility] [place] [facility] [address] [id number] [place] [address] Jun, [facility] [place] [facility] [address] [facility] [id number] [facility] [place] [address] Jun, [facility] [place] [facility] [address] [facility] [id number] [facility] [place] [address] Jun, [facility] [place] [facility] [address] [facility] [id number] [place] [address] May, [facility] [place] [facility] [address] [id number] [place] [address] May, [facility] [place] [facility] [address] [facility] [id number] [place] [address] May, [facility] [place] [facility] [address] [facility] [id number] [place] [address] May, [facility] [place] [facility] [address] [id number] [place] [address] May, [facility] [place] [facility] [address] [id number] [place] [address] May, [facility] [place] [facility] [address] [id number] [place] [address] May, [facility] [place] [facility] [address] [id number] [place] [address] May, [facility] [place] [facility] [address] [id number] [place] [address] Apr, [facility] [place] [facility] [address] [id number] [place] [address] Apr, [facility] [place] [facility] [address] [id number] [place] [address] Apr, [facility] [place] [facility] [address] [facility] [id number] [place] [address] Apr, [facility] [place] [facility] [address] [id number] [place] [address] Apr, [facility] [place] [facility] [address] [id number] [place] [address] Apr, [facility] [place] [facility] [address] [id number] [place] [address] Apr, [facility] [place] [facility] [address] [facility] [id number] [place] [address] Apr, [facility] [place] [facility] [address] [facility] [id number] [place] [address] Apr, [facility] [place] [facility] [address] [facility] [id number] [place] [address] Apr, [facility] [place] [facility] [address] [id number] [place] [address] Apr, [facility] [place] [facility] [address] [facility] [id number] [place] [address] Apr, [facility] [place] [facility] [address] [facility] [id number] [place] [address] Apr, [facility] [place] [facility] [address] [id number] [place] [address] Apr, [facility] [place] [facility] [address] [id number] [place] [address] Apr, [facility] [place] [facility] [address] [id number] [place] [address] Apr, [facility] [place] [facility] [address] [id number] [place] [address] Apr, [facility] [place] [facility] [address] [id number] [place] [address] Apr, [facility] [place] [facility] [address] [id number] [place] [address] March, [facility] [place] [facility] [address] [id number] [place] [address] March, [facility] [place] [facility] [address] [facility] [id number] [place] [address] March, [facility] [place] [facility] [address] [id number] [place] [address] March, [facility] [place] [facility] [address] [id number] [place] [address] March, [facility] [place] [facility] [address] [id number] [place] [address] March, [facility] [place] [facility] [address] [id number] [place] [address] March, [facility] [place] [facility] [address] [id number] [facility] [place] [address] March, [facility] [place] [facility] [address] [id number] [place] [address] March, [facility] [place] [facility] [address] [id number] [facility] [place] [address] Feb, [facility] [place] [facility] [address] [facility] [id number] [place] [address] Feb, [facility] [place] [facility] [address] [id number] [place] [address] Feb, [facility] [place] [facility] [address] [id number] [place] [address] Feb, [facility] [place] [facility] [address] [id number] [place] [address] Feb, [facility] [place] [facility] [address] [id number] [place] [address] Feb, [facility] [place] [facility] [address] [id number] [place] [address] Feb, [facility] [place] [facility] [address] [id number] [place] [address] Feb, [facility] [place] [facility] [address] [id number] [place] [address] Feb, [facility] [place] [facility] [address] [id number] [place] [address] Feb, [facility] [place] [facility] [address] [id number] [place] [address] Feb, [facility] [place] [facility] [address] [id number] [place] [address] Feb, [facility] [place] [facility] [address] [id number] [place] [address] Feb, [facility] [place] [facility] [address] [id number] [facility] [place] [address] Jan, [facility] [place] [facility] [address] [facility] [id number] [facility] [place] [address] Jan, [facility] [place] [facility] [address] [facility] [id number] [facility] [place] [address] Jan, [facility] [place] [facility] [address] [id number] [facility] [place] [address] Jan, [facility] [place] [facility] [address] [facility] [id number] [facility] [place] [address] Jan, [facility] [place] [facility] [address] [facility] [id number] [facility] [place] [address] Jan, [facility] [place] [facility] [address] [id number] [place] [address] Jan, [facility] [place] [facility] [address] [id number] [place] [address] Jan, [facility] [place] [facility] [address] [id number] [place] [address] Dec, [facility] [place] [facility] [address] [facility] [id number] [facility] [place] [address] Dec, [facility] [place] [facility] [address] [id number] [place] [address] Dec, [facility] [place] [facility] [address] [id number] [place] [address] Dec, [facility] [place] [facility] [address] [id number] [place] [address] Dec, [facility] [place] [facility] [address] [facility] [id number] [place] [address] Dec, [facility] [place] [facility] [address] [id number] [place] [address] Dec, [facility] [place] [facility] [address] [id number] [place] [address] Dec, [facility] [place] [facility] [address] [id number] [place] [address] Dec, [facility] [place] [facility] [address] [id number] [place] [address] Dec, [facility] [place] [facility] [address] [id number] [place] [address] Nov, [facility] [place] [facility] [address] [id number] [place] [address] Nov, [facility] [place] [facility] [address] [id number] [place] [address] Nov, [facility] [place] [facility] [address] [id number] [place] [address] Nov, [facility] [place] [facility] [address] [id number] [place] [address] Nov, [facility] [place] [facility] [address] [id number] [place] [address] Nov, [facility] [place] [facility] [id number] [place] [address] Nov, [facility] [place] [facility] [address] [id number] [place] [address] Nov, [facility] [place] [facility] [address] [id number] [place] [address] Nov, [facility] [place] [facility] [address] [id number] [place] [address] Nov, [facility] [place] [facility] [address] [id number] [place] [address] Oct, [facility] [place] [facility] [address] [id number] [place] [address] Oct, [facility] [place] [facility] [address] [id number] [place] [address] Oct, [facility] [place] [facility] [address] [id number] [place] [address] Oct, [facility] [place] [facility] [address] [id number] [place] [address] 17 Oct, 2013 [facility] [place] [facility] [address] [id number] [place] [address] 17 Oct, 2013 [facility] [place] [facility] [address] [id number] [place] [address] 16 Oct, 2013 [facility] [place] [facility] [address] [id number] [place] [address] Oct, [facility] [place] [facility] [address] [id number] [place] [address] Oct, [facility] [place] [facility] [address] [id number] [place] [address] Oct, [facility] [place] [facility] [address] [id number] [place] [address] Oct, [facility] [place] [facility] [address] [id number] [place] [address] Oct, [facility] [place] [facility] [address] [id number] [place] [address] Oct, [facility] [place] [facility] [address] [id number] [place] [address] Oct, [facility] [place] [facility] [address] [id number] [place] [address] Sep, [facility] [place] [facility] [address] [id number] [place] [address] Sep, [facility] [place] [facility] [address] [id number] [place] [address] Sep, [facility] [place] [facility] [id number] [place] [address] Sep, [facility] [place] [facility] [address] [id number] [place] [address] Sep, [facility] [place] [facility] [id number] [place] [address] Sep, [facility] [place] [facility] [address] [id number] [place] [address] Aug, [facility] [place] [facility] [address] [id number] [place] [address] Aug, [facility] [place] [facility] [address] [id number] [place] [address] 17 Aug, 2012 [facility] [place] [facility] [address] [id number] [place] [address] 17 Aug, 2012 [facility] [place] [facility] [address] [id number] [place] [address] 10 Aug, 2012 [facility] [place] [facility] [address] [id number] [place] [address] 10 Aug, 2012 [facility] [place] [facility] [address] [id number] [place] [address] 07 Aug, 2012 [facility] [place] [facility] [address] [id number] [place] [address] 02 Aug, 2012 [facility] [place] [facility] [address] [id number] [place] [address] 02 Aug, 2013 [facility] [place] [facility] [address] [id number] [place] [address] 25 Sep, 2012 [facility] [place] [facility] [address] [id number] [place] [address] 23 Sep, 2012 [facility] [place] [facility] [address] [id number] [place] [address] 21 Sep, 2012 [facility] [place] [facility] [address] [id number] [place] [address] 20 Sep, 2012 [facility] [place] [address] [id number] [place] [address] 18 Sep, 2012 [facility] [address] [id number] [place] [address] 17 Sep, 2012 [facility] [address] [id number] [place] [address] 16 Sep, 2012 [facility] [address] [id number] [place] [address] 11 Sep, 2012 [facility] [address] [id number] [place] [address] 09 Sep, 2012 [facility] [address] [id number] [place] [address] 09 Sep, 2012 [facility] [address] [id number] [facility] [place] [address] Jul, 2012 [facility] [address] [facility] [id number] [facility] [place] [address] Jul, [facility] [address] [facility] [id number] [place] [address] Jun, [facility] [address] [id number] [facility] [place] [address] Jun, [facility] [address] [facility] [id number] [facility] [place] [address] Jun, [facility] [address] [id number] [place] [address] Jun, [facility] [address] [id number] [place] [address] Jun, [facility] [address] [id number] [place] [address] Jun, [facility] [address] [id number] [place] [address] Jun, [facility] [address] [id number] [place] [address] Jun, [facility] [address] [id number] [place] [address] Jun, [facility] [address] [id number] [place] [address] May, [facility] [address] [facility] [id number] [place] [address] May, [facility] [address] [id number] [place] [address] May, [facility] [address] [facility] [id number] [place] [address] May, [facility] [address] [id number] [place] [address] May, [facility] [address] [id number] [facility] [place] [address] May, [facility] [address] [facility] [id number] [facility] [place] [address] May, [facility] [address] [id number] [place] [address] March, [facility] [address] [id number] [place] [address] March, [facility] [address] [id number] [place] [address] March, [facility] [address] [id number] [facility] [place] [address] Dec, [facility] [address] [id number] [place] [address] Nov, [facility] [address] [id number] [place] [address] Aug, [facility] [address] [id number] [place] [address] Aug, [facility] [address] [id number] [place] [address] Jun, [facility] [address] [id number] [place] [address] Jun, [facility] [address] [id number] [place] [address] Jun, [facility] [address] [id number] [place] [address] Jun, [facility] [address] [facility] [id number] [facility] [place] [address] May, [facility] [address] [id number] [place] [address] May, [facility] [address] [id number] [facility] [place] [address] May, [facility] [address] [id number] [place] [address] May, [facility] [address] [id number] [place] [address] May, [facility] [address] [id number] [place] [address] May, [facility] [address] [id number] [place] [address] May, [facility] [address] [id number] [place] [address] Apr, [facility] [address] [id number] [place] [address] Apr, [facility] [address] [id number] [place] [address] Apr, [facility] [address] [id number] [place] [address] Apr, [facility] [address] [id number] [place] [address] March, [facility] [address] [id number] [place] [address] March, [facility] [address] [id number] [place] [address] March, [facility] [address] [id number] [place] [address] March, [facility] [address] [id number] [place] [address] March, [facility] [address] [id number] [place] [address] March, [facility] [address] [id number] [place] [address] March, [facility] [address] [id number] [place] [address] March, [facility] [address] [id number] [place] [address] March, [facility] [address] [id number] [place] [address] 04 Feb, 2012 [facility] [address] [facility] [id number] [place] [address] Feb, [facility] [address] [facility] [id number] [facility] [place] [address] 28 Jan, 2012 [facility] [address] [facility] [id number] [place] [id number] 27 Jan, 2012 [facility] [address] [id number] [place] [address] 16 Jan, 2012 [facility] [address] [facility] [id number] [facility] [place] [address] 05 Jan, 2012 [facility] [address] [id number] [place] [address] 20 Dec, 2011 [facility] [address] [id number] [place] [address] 16 Dec, 2011 [facility] [address] [id number] [place] [address] 15 Dec, 2011 [facility] [address] [id number] [place] [address] 30 Nov, 2011 [facility] [address] [id number] [place] [address] Oct, [facility] [address] [id number] [place] [address] 15 Oct, 2011 [facility] [address] [id number] [place] [address] 15 Oct, 2011 [facility] [address] [id number] [place] [address] 14 Oct, 2011 [facility] [address] [id number] [place] [address] 14 Oct, 2011 [facility] [address] [id number] [place] [address] 12 Oct, 2011 [facility] [address] [id number] [place] [address] 09 Oct, 2011 [facility] [id number] [place] [address] Oct, [facility] [id number] [place] [address] Sep, [facility] [id number] [place] [address] Sep, [facility] [id number] [place] [address] Sep, [facility] [id number] [place] [address] Sep, [facility] [id number] [place] [address] Sep, [facility] [id number] [place] [address] Sep, [facility] [id number] [place] [address] Sep, [facility] [id number] [place] [address] Sep, [facility] [id number] [place] [address] Sep, [facility] [id number] [place] [address] Aug, [facility] [id number] [place] [address] Jul, [facility] [id number] [place] [address] Oct, [facility] [id number] [place] [address] Oct, [facility] [id number] [place] [address] Oct, IMMUNIZATIONS No Known Immunizations SOCIAL HISTORY [...]
--- OUTSIDE RECORDS SUMMARY | 2020-03-19 06:03 | XMS REPORT ---
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 92612826 Problem Chronic kidney disease, unspecified N18.9 Active 764794250 Problem Anemia, unspecified D64.9 Active 244482867 Problem Irritable bowel K58.9 Active 1074 3008 Problem Irritable bowel syndrome with diarrhea K58.0 Active 015514784 Problem Claudication I73.9 Active 7159060 6 Problem Intractable migraine without aura and with status migr ainosus G43.011 Active 838498807 Problem Peritoneal dialysis status Z99.2 Act moody 545898404 Problem Migraine without aura and without status migrain osus, not intractable G43.009 Active 222749314 Problem Other insomnia G47.09 Active 78522 2000 Problem Dysthymia F34.1 Active 95805554 Problem Chronic kidney disease, stage 4 (severe) N18.4 Active 099321524 Problem Migraine with aura and without status migrainosu s, not intractable G43.109 Active 4452721 Problem Autonomic neuropathy G90.9 Active 045772027 Problem Type 1 diabetes mellitus with complications E10.8 Active 794831270 Problem Menorrhagia with regular cycle N92.0 Active 083202604 Problem Other chronic pain G89.29 Active 8 9090123 Problem Lymphedema I89.0 Active 266062128 Problem Essential hypertension I10 Active 20690011 Problem Moderate episode of recurrent major depressive disorder F33.1 Active 731835524 Problem Type 1 diabetes mellitus without complications E10 .9 Active 183909092 Problem Primary insomnia F51.01 Active 397 2004 Problem Migraine G43.909 Active 97309368 Problem Low back pain M54.5 Active 616733 009 Problem Diastolic dysfunction I51.89 Active 0119029 Problem ESRF (end stage renal failure) N18.6 Active 97680380 Problem Restless legs G25.81 Active 740674 08 Problem Hyperthyroidism E05.90 Active 3448 6009 ALLERGIES No Information ENCOUNTERS Encounter Location Date Diagnosis [facility] [address] [address] Jan, [facility] [id number] [place] [id number] Dec, [facility] [address] [address] Oct, Restless legs G25.81 [address] [address] Oct, Encounter for Medicare annual wellness e xam Z00.00 ; 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 ; Migraine without aura and without status migrainosus, not intractable G43.009 ; Chronic kidney disease, stage 4 (severe) N18.4 ; Claudication I73.9 ; Peritoneal dialysis status Z99.2 ; Diastolic dysfunction I51.89 ; Primary insomnia F51.01 and Burn T30.0 [facility] [address] [address] Sep, Moderate episode of recurrent major depr essive disorder F33.1 and Primary insomnia F51.01 [facility] [address] [address] Aug, Hyperthyroidism E05.90 [facility] [address] [address] May, Restless legs G25.81 [facility] [address] [address] May, [facility] [address] [address] May, [facility] [address] [address] May, Type 1 diabetes mellitus with hypoglycem ia without coma E10.649 ; ESRF (end stage renal failure) N18.6 ; Leg cramps R25.2 ; Restless legs G25.81 and Low back pain M54.5 [facility] [address] [address] Apr, Low back pain M54.5 [facility] [address] [address] Apr, [facility] [address] [address] March, Low back pain M54.5 [facility] [address] [address] March, [facility] [address] [address] Feb, Low back pain M54.5 [facility] [address] [address] Jan, Low back pain M54.5 [facility] [address] [address] Jan, [facility] [address] [address] Jan, [facility] [address] [address] Jan, [facility] [address] [address] Dec, Type 1 diabetes mellitus with hypoglycem ia without coma E10.649 and Low back pain M54.5 [facility] [address] [address] Dec, Low back pain M54.5 [facility] [address] [address] 13 Dec, 2018 Diastolic dysfunction I51.89 ; Essential hypertension I10 and Chronic kidney disease, stage 4 (severe) N18.4 [place] [address] [address] 11 Dec, 2018 RUQ abdominal pain R10.11 ; Type 1 diabe camryn mellitus without complications E10.9 ; Therapeutic drug monitoring Z51.81 ; Migraine with aura and without status migrainosus, not intractable G43.109 and Intractable migraine without aura and with status migrainosus G43.011 [address] [address] Nov, Low back pain M54.5 [place] [address] [address] Nov, [place] [address] [address] Nov, Intractable migraine without aura and wi th status migrainosus G43.011 ; Lymphedema I89.0 ; Pain in right shoulder M25.511 ; Other chronic pain G89.29 ; Irritable bowel syndrome with diarrhea K58.0 ; Type 1 diabetes mellitus without complications E10.9 and Essential hypertension I10 [place] [address] [address] Oct, Low back pain M54.5 [place] [address] [address] Oct, [address] [address] [address] Oct, Orthostatic hypotension I95.1 ; Shortnes s of breath R06.02 ; Leg swelling M79.89 ; Type 1 diabetes mellitus without complications E10.9 and Claudication I73.9 [place] [address] [address] 30 Sep, 2018 Low back pain M54.5 [place] [address] [address] Sep, Low back pain M54.5 [facility] [address] [address] Aug, [facility] [address] [address] Aug, Migraine without aura and without status migrainosus, not intractable G43.009 [facility] [address] [address] Aug, Low back pain M54.5 [facility] [address] [facility] [id number] [place] [address] Aug, Acute rhinosinusitis J01.90 and Sore throat J02.9 [facility] [address] [address] Jul, Low back pain M54.5 [place] [address] [address] Jul, Migraine without aura and without status migrainosus, not intractable G43.009 [facility] [address] [address] Jun, Low back pain M54.5 [facility] [address] [address] Jun, [facility] [address] [address] Jun, Orthostatic hypotension I95.1 ; Shortnes s of breath R06.02 ; Type 1 diabetes mellitus without complications E10.9 and Leg swelling M79.89 [facility] [address] [address] Jun, Low back pain M54.5 [facility] [address] [address] Jun, [facility] [address] [address] May, Migraine without aura and without status migrainosus, not intractable G43.009 [address] [address] [address] May, Migraine without aura and without status migrainosus, not intractable G43.009 ; Restless legs syndrome G25.81 ; Leg cramps R25.2 ; Chronic kidney disease, unspecified N18.9 ; Postural hypotension I95.1 ; Diarrhea, unspecified type R19.7 and Cough R05 [place] [address] [address] May, [place] [address] [address] May, [place] [address] [address] May, Orthostatic hypotension I95.1 ; Shortnes s of breath R06.02 ; Type 1 diabetes mellitus with complications E10.8 and Leg swelling M79.89 [place] [address] [address] May, [place] [address] [address] May, Low back pain M54.5 [place] [address] [address] Apr, Type 1 diabetes mellitus with hyperglyce sebastian E10.65 [place] [address] [address] Apr, Low back pain M54.5 [place] [address] [address] Apr, [address] [address] [address] Apr, [place] [address] [address] March, [place] [address] [address] March, Low back pain M54.5 [place] [address] [address] March, [facility] [address] [address] Feb, [facility] [address] [address] Feb, Low back pain M54.5 [address] [address] [address] Jan, Restless legs syndrome G25.81 [place] [address] [address] Jan, Low back pain M54.5 [place] [address] [address] Jan, [place] [address] [address] Jan, Type 1 diabetes mellitus without complic ations E10.9 ; Low back pain M54.5 ; Cough R05 ; Diarrhea, unspecified type R19.7 ; Migraine without aura and without status migrainosus, not intractable G43.009 and Uses control Z30.9 [place] [address] [address] Dec, Low back pain M54.5 [place] [address] [address] Dec, [place] [address] [address] Nov, Well woman exam Z01.419 ; Menorrhagia wi th regular cycle N92.0 ; Vaginal dryness N89.8 and Migraine with aura and without status migrainosus, not intractable G43.109 [place] [address] [address] Nov, [place] [address] [address] Nov, Low back pain M54.5 [place] [address] [address] Oct, Low back pain M54.5 [facility] [address] [address] Oct, Migraine without aura and without status migrainosus, not intractable G43.009 [facility] [address] [address] Sep, Low back pain M54.5 [facility] [address] [address] Sep, [facility] [address] [address] Sep, Migraine without aura and without status migrainosus, not intractable G43.009 [facility] [address] [address] Sep, Type 1 diabetes mellitus with hypoglycem ia without coma E10.649 ; Anemia D64.9 ; Migraine without aura and without status migrainosus, not intractable G43.009 ; Chronic kidney disease, unspecified N18.9 ; Autonomic neuropathy G90.9 and Postural hypotension I95.1 [place] [address] [address] Sep, Low back pain M54.5 [facility] [address] [address] Aug, Low back pain M54.5 [facility] [address] [address] 14 Jul, 2017 [facility] [address] [address] Jul, Low back pain M54.5 [facility] [address] [address] Jun, [facility] [address] [address] Jun, Low back pain M54.5 [facility] [address] [address] Jun, Migraine without aura and without status migrainosus, not intractable G43.009 [facility] [address] [address] Jun, Type 1 diabetes mellitus with hyperglyce sebastian E10.65 ; Dysthymia F34.1 and Migraine without aura and without status migrainosus, not intractable G43.009 [facility] [address] [address] Jun, [facility] [address] [address] May, Type 1 diabetes mellitus with hyperglyce sebastian E10.65 [facility] [address] [address] May, Low back pain M54.5 [facility] [address] [address] May, Type 1 diabetes mellitus with hyperglyce sebastian E10.65 [facility] [address] [address] Apr, [facility] [address] [address] Apr, Chronic kidney disease, stage 4 (severe) N18.4 [facility] [address] [address] Apr, Low back pain M54.5 [facility] [address] [address] March, [facility] [address] [address] March, Low back pain M54.5 [facility] [address] [address] Feb, [facility] [address] [address] Feb, [facility] [address] [address] Feb, Low back pain M54.5 [facility] [address] [address] Feb, Low back pain M54.5 [facility] [address] [address] Feb, Migraine without aura and without status migrainosus, not intractable G43.009 [address] [place] [address] Feb, [address] [place] [address] Jan, Low back pain M54.5 [address] [address] [address] Jan, Type 1 diabetes mellitus without complic ations E10.9 ; Anemia D64.9 ; Chronic kidney disease, unspecified N18.9 ; Migraine without aura and without status migrainosus, not intractable G43.009 and Other insomnia G47.09 [address] [address] Jan, [address] [address] [address] Dec, Low back pain M54.5 [address] [address] [address] Dec, [facility] [address] [address] Dec, [facility] [address] [address] 08 Dec, 2016 Shortness of breath R06.02 ; Type 1 diab etes mellitus without complications E10.9 and Leg swelling M79.89 [facility] [address] [address] Nov, Low back pain M54.5 [facility] [address] [address] Nov, Viral syndrome B34.9 [facility] [address] [address] Oct, Low back pain M54.5 [facility] [address] [address] Oct, [address] [address] Oct, Low back pain M54.5 [address] [place] [address] Sep, [address] [address] Sep, Fatigue, unspecified type R53.83 ; Type 1 diabetes mellitus without complications E10.9 and Anemia D64.9 [address] [address] [address] Sep, Low back pain M54.5 [address] [address] [address] Sep, Type 1 diabetes mellitus with hyperglyce sebastian E10.65 [address] [address] [address] Aug, Type 1 diabetes mellitus without complic ations E10.9 [address] [address] [address] Aug, [address] [address] [address] Aug, [address] [address] Jul, [address] [address] 14 Jul, 2016 Low back pain M54.5 [address] [address] [address] 12 Jul, 2016 Hyperkalemia, diminished renal excretion E87.5 [facility] [address] [address] Jul, Hyperkalemia, diminished renal excretion E87.5 [facility] [address] [address] Jun, [facility] [address] [address] Jun, Low back pain M54.5 [facility] [address] [address] Jun, Anemia D64.9 ; Autonomic neuropathy G90. 9 and Postural hypotension I95.1 [address] [address] Jun, [facility] [address] [address] May, Type 1 diabetes mellitus with complicati ons E10.8 and Anemia D64.9 [facility] [address] [address] May, Low back pain M54.5 [address] [address] [address] Apr, [facility] [address] [address] Apr, Low back pain M54.5 [address] [address] [address] Apr, [facility] [address] [address] Apr, [facility] [address] [address] March, Low back pain M54.5 and Other chronic pa in G89.29 [facility] [address] [address] March, Type 1 diabetes mellitus without complic ations E10.9 [facility] [id number] [place] [address] March, [facility] [address] [address] March, [facility] [address] [address] Feb, [facility] [address] [address] Feb, Type 1 diabetes mellitus without complic ations E10.9 [facility] [address] [address] Feb, Trochanteric bursitis, right hip M70.61 [place] [address] [address] Jan, [facility] [address] [address] Jan, [facility] [address] [address] Dec, Type 1 diabetes mellitus with complicati ons E10.8 [address] [address] [address] Dec, [facility] [address] [address] Dec, Anemia D64.9 ; Autonomic neuropathy G90. 9 and Postural hypotension I95.1 [place] [address] [address] Dec, [facility] [address] [address] Nov, Sore throat J02.9 [facility] [address] [address] Nov, Type 1 diabetes mellitus with complicati ons E10.8 [facility] [address] [address] Nov, Type 1 diabetes mellitus with diabetic n ephropathy E10.21 ; Proteinuria, unspecified R80.9 and Chronic kidney disease, unspecified N18.9 [facility] [address] [address] Nov, [facility] [address] [address] Nov, Trochanteric bursitis, right hip M70.61 [facility] [address] [address] Nov, [facility] [address] [address] Oct, [facility] [address] [address] Oct, [facility] [address] [address] Oct, [facility] [address] [address] Sep, [facility] [address] [address] Sep, [facility] [address] [address] Sep, Type 2 diabetes mellitus with complicati on E11.8 and Right hip pain M25.551 [facility] [address] [address] Sep, [facility] [address] [address] Aug, [facility] [address] [address] Aug, [facility] [address] [address] Aug, [facility] [address] [address] Aug, Type 1 diabetes mellitus without complic ations E10.9 [facility] [address] [place] [address] 16 Jul, 2015 [facility] [address] [address] 15 Jul, 2015 [facility] [address] [address] Jul, [facility] [address] [address] Jun, [facility] [address] [address] Jun, [facility] [address] [address] Jun, [facility] [address] [address] Jun, [facility] [address] [address] Jun, [facility] [address] [address] Jun, Diabetes mellitus without mention of com plication, type I [juvenile type], not stated as uncontrolled 250.01 [facility] [address] [address] May, [facility] [address] [address] May, [facility] [address] [address] May, [facility] [address] [address] May, Autonomic neuropathy 337.9 ; Postural hy potension 458.0 and Anemia 285.9 [facility] [address] [address] May, [facility] [address] [address] Apr, [facility] [address] [address] Apr, [facility] [place] [facility] [address] [facility] [id number] [facility] [address] Apr, [facility] [place] [facility] [address] [facility] [id number] [facility] [address] Apr, [facility] [place] [facility] [address] [id number] [place] [address] Apr, [facility] [place] [facility] [address] [id number] [place] [address] March, [facility] [place] [facility] [address] [facility] [id number] [facility] [address] March, [facility] [place] [facility] [address] [id number] [place] [address] March, [facility] [place] [facility] [address] [id number] [place] [address] March, [facility] [place] [facility] [address] [id number] [facility] [address] March, [facility] [place] [facility] [address] [id number] [place] [address] Feb, [facility] [place] [facility] [address] [id number] [facility] [address] 14 Feb, 2015 [facility] [place] [facility] [address] [id number] [place] [address] Feb, [facility] [place] [facility] [address] [id number] [place] [address] 30 Jan, 2015 [facility] [place] [facility] [address] [facility] [id number] [facility] [address] Jan, [facility] [place] [facility] [address] [facility] [id number] [place] [address] Jan, [facility] [place] [facility] [address] [id number] [place] [address] Jan, [facility] [place] [facility] [address] [id number] [facility] [address] Jan, [facility] [place] [facility] [address] [id number] [place] [address] Jan, [facility] [place] [facility] [address] [facility] [id number] [facility] [address] Jan, [facility] [place] [facility] [address] [id number] [place] [address] Jan, [facility] [place] [facility] [address] [id number] [place] [address] Jan, [facility] [place] [facility] [address] [id number] [place] [address] Jan, [facility] [place] [facility] [address] [facility] [id number] [place] [address] Jan, [facility] [place] [facility] [address] [id number] [place] [address] Jan, [facility] [place] [facility] [address] [id number] [place] [address] Jan, [facility] [place] [facility] [address] [id number] [place] [address] Dec, 2014 [facility] [place] [facility] [address] [id number] [place] [address] Dec, [facility] [place] [facility] [address] [id number] [place] [address] Dec, 2014 [facility] [place] [facility] [address] [id number] [place] [address] Dec, 2014 [facility] [place] [facility] [address] [id number] [place] [address] Dec, 2014 [facility] [place] [facility] [address] [id number] [place] [address] Dec, 2014 [facility] [place] [facility] [address] [id number] [place] [address] Dec, 2014 [facility] [place] [facility] [address] [id number] [place] [address] Dec, [facility] [place] [facility] [address] [id number] [place] [address] Nov, [facility] [place] [facility] [address] [id number] [place] [address] Nov, [facility] [place] [facility] [address] [id number] [place] [address] Nov, [facility] [place] [facility] [address] [id number] [place] [address] Nov, [facility] [place] [facility] [address] [id number] [place] [address] Nov, [facility] [place] [facility] [address] [id number] [place] [address] Nov, [facility] [place] [facility] [address] [id number] [place] [address] Nov, [facility] [place] [facility] [address] [id number] [place] [address] Nov, [facility] [place] [facility] [address] [id number] [place] [address] Nov, [facility] [place] [facility] [address] [id number] [place] [address] Oct, [facility] [place] [facility] [address] [id number] [place] [address] Oct, [facility] [place] [facility] [address] [id number] [place] [address] Oct, [facility] [place] [facility] [address] [id number] [place] [address] Oct, [facility] [place] [facility] [address] [id number] [place] [address] Oct, [facility] [place] [facility] [address] [id number] [place] [address] Oct, [facility] [place] [facility] [address] [id number] [place] [address] Oct, [facility] [place] [facility] [address] [id number] [place] [address] Oct, [facility] [place] [facility] [address] [id number] [place] [address] Oct, [facility] [place] [facility] [address] [id number] [place] [address] Oct, [facility] [place] [facility] [address] [id number] [place] [address] Oct, [facility] [place] [facility] [address] [id number] [place] [address] Oct, [facility] [place] [facility] [address] [id number] [place] [address] Oct, [facility] [place] [facility] [address] [id number] [place] [address] Oct, [facility] [place] [facility] [address] [id number] [place] [address] Sep, [facility] [place] [facility] [address] [id number] [place] [address] Sep, [facility] [place] [facility] [address] [id number] [place] [address] Sep, [facility] [place] [facility] [address] [id number] [place] [address] Sep, [facility] [place] [facility] [address] [id number] [place] [address] Aug, [facility] [place] [facility] [address] [id number] [place] [address] Aug, [facility] [place] [facility] [address] [id number] [place] [address] Aug, [facility] [place] [facility] [address] [id number] [place] [address] Aug, [facility] [place] [facility] [address] [id number] [place] [address] Aug, [facility] [place] [facility] [address] [id number] [place] [address] Aug, [facility] [place] [facility] [address] [id number] [place] [address] Aug, [facility] [place] [facility] [address] [facility] [id number] [place] [address] 06 Aug, 2013 [facility] [place] [facility] [address] [id number] [place] [address] Aug, [facility] [place] [facility] [address] [id number] [place] [address] Aug, [facility] [place] [facility] [address] [id number] [place] [address] 29 Sep, 2013 [facility] [place] [facility] [address] [id number] [place] [address] 29 Sep, 2013 [facility] [place] [facility] [address] [id number] [place] [address] 29 Jul, 2013 [facility] [place] [facility] [address] [id number] [place] [address] 29 Jul, 2013 [facility] [place] [facility] [address] [id number] [place] [address] 22 Jul, 2013 [facility] [place] [facility] [address] [id number] [place] [address] 22 Jul, 2013 [facility] [place] [facility] [address] [id number] [place] [address] 19 Jul, 2013 [facility] [place] [facility] [address] [id number] [place] [address] 19 Jul, 2013 [facility] [place] [facility] [address] [id number] [place] [address] 11 Jul, 2013 [facility] [place] [facility] [address] [id number] [place] [address] 11 Jul, 2013 [facility] [place] [facility] [address] [id number] [place] [address] 10 Sep, 2013 [facility] [place] [facility] [address] [id number] [place] [address] 10 Sep, 2013 [facility] [place] [facility] [address] [id number] [place] [address] 08 Sep, 2013 [facility] [place] [facility] [address] [id number] [place] [address] 08 Sep, 2013 [facility] [place] [facility] [address] [id number] [facility] [address] Jul, 2013 [facility] [place] [facility] [address] [id number] [place] [address] 03 Jul, 2013 [facility] [place] [facility] [address] [facility] [id number] [facility] [address] Jul, 2013 [facility] [place] [facility] [address] [id number] [facility] [address] Jul, 2013 [facility] [place] [facility] [address] [facility] [id number] [place] [address] Jun, [facility] [place] [facility] [address] [id number] [place] [address] Jun, [facility] [place] [facility] [address] [id number] [place] [address] Jun, [facility] [place] [facility] [address] [id number] [place] [address] Jun, [facility] [place] [facility] [address] [facility] [id number] [place] [address] Jun, [facility] [place] [facility] [address] [id number] [place] [address] Jun, [facility] [place] [facility] [address] [id number] [place] [address] Jun, [facility] [place] [facility] [address] [id number] [place] [address] Jun, [facility] [place] [facility] [address] [facility] [id number] [place] [address] Jun, [facility] [place] [facility] [address] [id number] [place] [address] Jun, [facility] [place] [facility] [address] [facility] [id number] [place] [address] Jun, [facility] [place] [facility] [address] [id number] [place] [address] Jun, [facility] [place] [facility] [address] [facility] [id number] [facility] [address] Jun, [facility] [place] [facility] [address] [facility] [id number] [facility] [address] Jun, [facility] [place] [facility] [address] [facility] [id number] [place] [address] Jun, [facility] [place] [facility] [address] [id number] [place] [address] May, [facility] [place] [facility] [address] [facility] [id number] [place] [address] May, [facility] [place] [facility] [address] [facility] [id number] [facility] [address] May, [facility] [place] [facility] [address] [id number] [place] [address] May, [facility] [place] [facility] [address] [id number] [place] [address] May, [facility] [place] [facility] [address] [id number] [place] [address] May, [facility] [place] [facility] [address] [facility] [id number] [place] [address] May, [facility] [place] [facility] [address] [id number] [place] [address] May, [facility] [place] [facility] [address] [id number] [place] [address] Apr, [facility] [place] [facility] [address] [id number] [place] [address] Apr, [facility] [place] [facility] [address] [facility] [id number] [place] [address] Apr, [facility] [place] [facility] [address] [id number] [place] [address] Apr, [facility] [place] [facility] [address] [id number] [place] [address] Apr, [facility] [place] [facility] [address] [id number] [place] [address] Apr, [facility] [place] [facility] [address] [facility] [id number] [place] [address] Apr, [facility] [place] [facility] [address] [facility] [id number] [place] [address] Apr, [facility] [place] [facility] [address] [facility] [id number] [place] [address] Apr, [facility] [place] [facility] [address] [id number] [place] [address] Apr, [facility] [place] [facility] [address] [facility] [id number] [place] [address] Apr, [facility] [place] [facility] [address] [id number] [place] [address] Apr, [facility] [place] [facility] [address] [id number] [place] [address] Apr, [facility] [place] [facility] [address] [id number] [place] [address] Apr, [facility] [place] [facility] [address] [id number] [place] [address] Apr, [facility] [place] [facility] [address] [id number] [place] [address] Apr, [facility] [place] [facility] [address] [id number] [place] [address] Apr, [facility] [place] [facility] [address] [id number] [place] [address] Apr, [facility] [place] [facility] [address] [id number] [place] [address] March, [facility] [place] [facility] [address] [facility] [id number] [place] [address] March, [facility] [place] [facility] [address] [id number] [place] [address] March, [facility] [place] [facility] [address] [id number] [place] [address] March, [facility] [place] [facility] [address] [id number] [place] [address] March, [facility] [place] [facility] [address] [id number] [place] [address] March, [facility] [place] [facility] [address] [id number] [facility] [address] March, [facility] [place] [facility] [address] [id number] [place] [address] March, [facility] [place] [facility] [address] [id number] [facility] [address] March, [facility] [place] [facility] [address] [facility] [id number] [place] [address] Feb, [facility] [place] [facility] [address] [id number] [place] [address] Feb, [facility] [place] [facility] [address] [id number] [place] [address] Feb, [facility] [place] [facility] [address] [id number] [place] [address] Feb, [facility] [place] [facility] [address] [id number] [place] [address] Feb, [facility] [place] [facility] [address] [id number] [place] [address] Feb, [facility] [place] [facility] [address] [id number] [place] [address] Feb, [facility] [place] [facility] [address] [id number] [place] [address] Feb, [facility] [place] [facility] [address] [id number] [place] [address] Feb, [facility] [place] [facility] [address] [id number] [place] [address] Feb, [facility] [place] [facility] [address] [id number] [place] [address] Feb, [facility] [place] [facility] [address] [id number] [place] [address] Feb, [facility] [place] [facility] [address] [id number] [facility] [address] 08 Feb, 2014 [facility] [place] [facility] [address] [facility] [id number] [facility] [address] Jan, [facility] [place] [facility] [address] [facility] [id number] [facility] [address] Jan, [facility] [place] [facility] [address] [id number] [place] [address] Jan, [facility] [place] [facility] [address] [facility] [id number] [facility] [address] Jan, [facility] [place] [facility] [address] [facility] [id number] [facility] [address] Jan, [facility] [place] [facility] [address] [id number] [place] [address] Jan, [facility] [place] [facility] [address] [id number] [place] [address] Jan, [facility] [place] [facility] [address] [id number] [place] [address] Jan, [facility] [place] [facility] [address] [id number] [facility] [address] Dec, [facility] [place] [facility] [address] [id number] [place] [address] Dec, [facility] [place] [facility] [address] [id number] [place] [address] Dec, [facility] [place] [facility] [address] [id number] [place] [address] Dec, [facility] [place] [facility] [address] [facility] [id number] [place] [address] Dec, [facility] [place] [facility] [address] [id number] [place] [address] Dec, [facility] [place] [facility] [address] [id number] [place] [address] Dec, [facility] [place] [facility] [address] [id number] [place] [address] Dec, [facility] [place] [facility] [address] [id number] [place] [address] Dec, [facility] [place] [facility] [address] [id number] [place] [address] Dec, [facility] [place] [facility] [address] [id number] [place] [address] Nov, [facility] [place] [facility] [address] [id number] [place] [address] Nov, [facility] [place] [facility] [address] [id number] [place] [address] Nov, [facility] [place] [facility] [address] [id number] [place] [address] Nov, [facility] [place] [facility] [address] [id number] [place] [address] Nov, [facility] [place] [facility] [id number] [place] [address] Nov, [facility] [place] [facility] [address] [id number] [place] [address] Nov, [facility] [place] [facility] [id number] [place] [address] Nov, [facility] [place] [facility] [address] [id number] [place] [address] Nov, [facility] [place] [facility] [id number] [place] [address] Nov, [facility] [place] [facility] [address] [id number] [place] [address] Oct, [facility] [place] [facility] [address] [id number] [place] [address] Oct, [facility] [place] [facility] [address] [id number] [place] [address] Oct, [facility] [place] [facility] [address] [id number] [place] [address] Oct, [facility] [place] [facility] [address] [id number] [place] [address] 17 Oct, 2013 [facility] [place] [facility] [address] [id number] [place] [address] 17 Oct, 2013 [facility] [place] [facility] [address] [id number] [place] [address] 16 Oct, 2013 [facility] [place] [facility] [address] [id number] [place] [address] 16 Oct, 2013 [facility] [place] [facility] [address] [id number] [place] [address] Oct, [facility] [place] [facility] [address] [id number] [place] [address] Oct, [facility] [place] [facility] [address] [id number] [place] [address] Oct, [facility] [place] [facility] [address] [id number] [place] [address] Oct, [facility] [place] [facility] [address] [id number] [place] [address] Oct, [facility] [place] [facility] [address] [id number] [place] [address] Oct, [facility] [place] [facility] [address] [id number] [place] [address] Sep, [facility] [place] [facility] [address] [id number] [place] [address] Sep, [facility] [place] [facility] [id number] [place] [address] 18 Sep, 2013 [facility] [place] [facility] [address] [id number] [place] [address] 18 Sep, 2013 [facility] [place] [facility] [id number] [place] [address] Sep, [facility] [place] [facility] [address] [id number] [place] [address] Sep, [facility] [place] [facility] [address] [id number] [place] [address] Aug, [facility] [place] [facility] [address] [id number] [place] [address] 31 Aug, 2012 [facility] [place] [facility] [address] [id number] [place] [address] 17 Aug, 2012 [facility] [place] [facility] [address] [id number] [place] [address] 17 Aug, 2012 [facility] [place] [facility] [address] [id number] [place] [address] 10 Aug, 2012 [facility] [place] [facility] [address] [id number] [place] [address] 10 Aug, 2012 [facility] [place] [facility] [address] [id number] [place] [address] 07 Aug, 2012 [facility] [place] [facility] [address] [id number] [place] [address] 02 Aug, 2013 [facility] [place] [facility] [address] [id number] [place] [address] 02 Aug, 2013 [facility] [place] [facility] [address] [id number] [place] [address] 25 Sep, 2012 [facility] [place] [facility] [address] [id number] [place] [address] 23 Sep, 2012 [facility] [place] [facility] [address] [id number] [place] [address] 21 Sep, 2012 [facility] [place] [facility] [address] [id number] [place] [address] 20 Sep, 2012 [facility] [place] [facility] [address] [id number] [place] [address] 18 Sep, 2012 [facility] [place] [facility] [address] [id number] [place] [address] 17 Sep, 2012 [facility] [place] [facility] [address] [id number] [place] [address] 16 Sep, 2012 [facility] [place] [facility] [address] [id number] [place] [address] 11 Sep, 2012 [facility] [place] [facility] [address] [id number] [place] [address] 09 Sep, 2012 [facility] [address] [id number] [facility] [address] Jul, 2012 [facility] [address] [facility] [id number] [facility] [address] Jul, 2012 [facility] [address] [facility] [id number] [place] [address] Jul, [facility] [address] [id number] [facility] [address] Jun, [facility] [address] [facility] [id number] [facility] [address] Jun, [facility] [address] [id number] [place] [address] Jun, [facility] [address] [id number] [place] [address] Jun, [facility] [address] [id number] [place] [address] Jun, [facility] [address] [id number] [place] [address] Jun, [facility] [address] [id number] [place] [address] Jun, [facility] [address] [id number] [place] [address] Jun, [facility] [address] [id number] [place] [address] Jun, [facility] [address] [facility] [id number] [place] [address] May, [facility] [address] [id number] [place] [address] May, [facility] [address] [id number] [place] [address] May, [facility] [address] [id number] [place] [address] May, [facility] [address] [id number] [facility] [address] May, [facility] [address] [id number] [facility] [address] May, [facility] [address] [facility] [id number] [facility] [address] May, [facility] [address] [id number] [place] [address] March, [facility] [address] [id number] [facility] [address] March, [facility] [address] [id number] [facility] [address] March, [facility] [address] [id number] [place] [address] Dec, [facility] [address] [id number] [place] [address] Nov, [facility] [address] [id number] [place] [address] Aug, [facility] [address] [id number] [place] [address] Aug, [facility] [address] [id number] [place] [address] Jun, [facility] [address] [id number] [place] [address] Jun, [facility] [address] [id number] [place] [address] Jun, [facility] [address] [facility] [id number] [facility] [address] Jun, [facility] [address] [id number] [facility] [address] May, [facility] [address] [id number] [facility] [address] May, [facility] [address] [id number] [place] [address] May, [facility] [address] [id number] [place] [address] May, [facility] [address] [id number] [place] [address] May, [facility] [address] [id number] [place] [address] May, [facility] [address] [id number] [place] [address] May, [facility] [address] [id number] [place] [address] Apr, [facility] [address] [id number] [place] [address] Apr, [facility] [address] [id number] [place] [address] Apr, [facility] [address] [id number] [place] [address] Apr, [facility] [address] [id number] [place] [address] March, [facility] [address] [id number] [place] [address] March, [facility] [address] [id number] [place] [id number] March, [facility] [address] [id number] [place] [address] March, [facility] [address] [id number] [place] [address] March, [facility] [address] [id number] [place] [address] March, [facility] [address] [id number] [place] [address] March, [facility] [address] [id number] [place] [address] March, [facility] [address] [id number] [place] [address] March, [facility] [address] [facility] [id number] [facility] [address] Feb, [facility] [address] [facility] [id number] [facility] [address] Feb, [facility] [address] [facility] [id number] [facility] [address] Jan, [facility] [address] [id number] [facility] [address] 27 Jan, 2012 [facility] [address] [facility] [id number] [facility] [address] 16 Jan, 2012 [facility] [address] [id number] [place] [address] 05 Jan, 2012 [facility] [address] [id number] [place] [address] Dec, [facility] [address] [id number] [place] [address] 16 Dec, 2011 [facility] [address] [id number] [place] [address] 15 Dec, 2011 [facility] [address] [id number] [place] [address] Nov, [facility] [address] [id number] [place] [address] Oct, [facility] [address] [id number] [place] [address] 15 Oct, 2011 [facility] [address] [id number] [place] [address] 15 Oct, 2011 [facility] [address] [id number] [place] [address] 14 Oct, 2011 [facility] [address] [id number] [place] [address] 14 Oct, 2011 [facility] [address] [id number] [place] [address] Oct, [facility] [id number] [place] [address] Oct, [facility] [id number] [place] [address] Oct, [facility] [id number] [place] [address] Sep, [facility] [id number] [place] [address] Sep, [facility] [id number] [place] [address] Sep, [facility] [id number] [place] [address] Sep, [facility] [id number] [place] [address] Sep, [facility] [id number] [place] [address] Sep, [facility] [id number] [place] [address] Sep, [facility] [id number] [place] [address] Sep, [facility] [address] [address] Sep, [facility] [id number] [place] [address] Aug, [facility] [id number] [place] [address] Jul, [facility] [id number] [place] [address] Oct, [facility] [id number] [place] [address] Oct, [facility] [id number] [place] [address] Oct, IMMUNIZATIONS No Known Immunizations SOCIAL HISTORY [...]
--- OUTSIDE RECORDS SUMMARY | 2020-03-19 06:04 | XMS REPORT ---
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 17886352 Problem Chronic kidney disease, unspecified N18.9 Active 450863842 Problem Anemia, unspecified D64.9 Active 080941497 Problem Irritable bowel K58.9 Active 1074 3008 Problem Irritable bowel syndrome with diarrhea K58.0 Active 181798688 Problem Claudication I73.9 Active 7733497 6 Problem Intractable migraine without aura and with status migr ainosus G43.011 Active 463426070 Problem Peritoneal dialysis status Z99.2 Act moody 423594280 Problem Migraine without aura and without status migrain osus, not intractable G43.009 Active 954683546 Problem Other insomnia G47.09 Active 51674 2000 Problem Dysthymia F34.1 Active 92840317 Problem Chronic kidney disease, stage 4 (severe) N18.4 Active 674883247 Problem Migraine with aura and without status migrainosu s, not intractable G43.109 Active 3488475 Problem Autonomic neuropathy G90.9 Active 270840538 Problem Type 1 diabetes mellitus with complications E10.8 Active 745134527 Problem Menorrhagia with regular cycle N92.0 Active 761760948 Problem Other chronic pain G89.29 Active 8 7742286 Problem Lymphedema I89.0 Active 375419653 Problem Essential hypertension I10 Active 04210167 Problem Moderate episode of recurrent major depressive disorder F33.1 Active 205478163 Problem Type 1 diabetes mellitus without complications E10 .9 Active 973459082 Problem Primary insomnia F51.01 Active 397 2004 Problem Migraine G43.909 Active 38830780 Problem Low back pain M54.5 Active 387245 009 Problem Diastolic dysfunction I51.89 Active 0256771 Problem ESRF (end stage renal failure) N18.6 Active 92831158 Problem Restless legs G25.81 Active 484086 08 Problem Hyperthyroidism E05.90 Active 3448 6009 ALLERGIES No Information ENCOUNTERS Encounter Location Date Diagnosis [facility] [address] [address] Jan, [facility] [id number] [place] [id number] Dec, [facility] [address] [address] Oct, Restless legs G25.81 [place] [address] [address] Oct, Encounter for Medicare annual wellness e xam Z00.00 ; 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 ; Migraine without aura and without status migrainosus, not intractable G43.009 ; Chronic kidney disease, stage 4 (severe) N18.4 ; Claudication I73.9 ; Peritoneal dialysis status Z99.2 ; Diastolic dysfunction I51.89 ; Primary insomnia F51.01 and Burn T30.0 [facility] [address] [address] Sep, Moderate episode of recurrent major depr essive disorder F33.1 and Primary insomnia F51.01 [facility] [address] [address] Aug, Hyperthyroidism E05.90 [facility] [address] [address] May, Restless legs G25.81 [facility] [address] [address] May, [facility] [address] [address] May, [facility] [address] [address] May, Type 1 diabetes mellitus with hypoglycem ia without coma E10.649 ; ESRF (end stage renal failure) N18.6 ; Leg cramps R25.2 ; Restless legs G25.81 and Low back pain M54.5 [facility] [address] [address] Apr, Low back pain M54.5 [facility] [address] [address] Apr, [facility] [address] [address] March, Low back pain M54.5 [facility] [address] [address] March, [facility] [address] [address] Feb, Low back pain M54.5 [facility] [address] [address] Jan, Low back pain M54.5 [facility] [address] [address] Jan, [facility] [address] [address] Jan, [facility] [address] [address] Jan, [facility] [address] [address] Dec, Type 1 diabetes mellitus with hypoglycem ia without coma E10.649 and Low back pain M54.5 [facility] [address] [address] Dec, Low back pain M54.5 [facility] [address] [address] 13 Dec, 2018 Diastolic dysfunction I51.89 ; Essential hypertension I10 and Chronic kidney disease, stage 4 (severe) N18.4 [place] [address] [address] 11 Dec, 2018 RUQ abdominal pain R10.11 ; Type 1 diabe camryn mellitus without complications E10.9 ; Therapeutic drug monitoring Z51.81 ; Migraine with aura and without status migrainosus, not intractable G43.109 and Intractable migraine without aura and with status migrainosus G43.011 [place] [address] [address] Nov, Low back pain M54.5 [place] [address] [address] Nov, [place] [address] [address] Nov, Intractable migraine without aura and wi th status migrainosus G43.011 ; Lymphedema I89.0 ; Pain in right shoulder M25.511 ; Other chronic pain G89.29 ; Irritable bowel syndrome with diarrhea K58.0 ; Type 1 diabetes mellitus without complications E10.9 and Essential hypertension I10 [place] [address] [address] Oct, Low back pain M54.5 [place] [address] [address] Oct, [place] [address] [address] Oct, Orthostatic hypotension I95.1 ; Shortnes s of breath R06.02 ; Leg swelling M79.89 ; Type 1 diabetes mellitus without complications E10.9 and Claudication I73.9 [place] [address] [address] 30 Sep, 2018 Low back pain M54.5 [place] [address] [address] Sep, Low back pain M54.5 [facility] [address] [address] Aug, [facility] [address] [address] Aug, Migraine without aura and without status migrainosus, not intractable G43.009 [facility] [address] [address] Aug, Low back pain M54.5 [facility] [address] [facility] [id number] [place] [address] Aug, Acute rhinosinusitis J01.90 and Sore throat J02.9 [facility] [address] [address] Jul, Low back pain M54.5 [place] [address] [address] Jul, Migraine without aura and without status migrainosus, not intractable G43.009 [facility] [address] [address] Jun, Low back pain M54.5 [facility] [address] [address] Jun, [facility] [address] [address] Jun, Orthostatic hypotension I95.1 ; Shortnes s of breath R06.02 ; Type 1 diabetes mellitus without complications E10.9 and Leg swelling M79.89 [facility] [address] [address] Jun, Low back pain M54.5 [facility] [address] [address] Jun, [facility] [address] [address] May, Migraine without aura and without status migrainosus, not intractable G43.009 [place] [address] [address] May, Migraine without aura and without status migrainosus, not intractable G43.009 ; Restless legs syndrome G25.81 ; Leg cramps R25.2 ; Chronic kidney disease, unspecified N18.9 ; Postural hypotension I95.1 ; Diarrhea, unspecified type R19.7 and Cough R05 [place] [address] [address] May, [place] [address] [address] May, [place] [address] [address] May, Orthostatic hypotension I95.1 ; Shortnes s of breath R06.02 ; Type 1 diabetes mellitus with complications E10.8 and Leg swelling M79.89 [place] [address] [address] May, [place] [address] [address] May, Low back pain M54.5 [place] [address] [address] Apr, Type 1 diabetes mellitus with hyperglyce sebastian E10.65 [place] [address] [address] Apr, Low back pain M54.5 [place] [address] [address] Apr, [place] [address] [address] Apr, [place] [address] [address] March, [place] [address] [address] March, Low back pain M54.5 [place] [address] [address] March, [facility] [address] [address] Feb, [facility] [address] [address] Feb, Low back pain M54.5 [place] [address] [address] Jan, Restless legs syndrome G25.81 [place] [address] [address] Jan, Low back pain M54.5 [place] [address] [address] Jan, [place] [address] [address] Jan, Type 1 diabetes mellitus without complic ations E10.9 ; Low back pain M54.5 ; Cough R05 ; Diarrhea, unspecified type R19.7 ; Migraine without aura and without status migrainosus, not intractable G43.009 and Uses control Z30.9 [place] [address] [address] Dec, Low back pain M54.5 [place] [address] [address] Dec, [place] [address] [address] Nov, Well woman exam Z01.419 ; Menorrhagia wi th regular cycle N92.0 ; Vaginal dryness N89.8 and Migraine with aura and without status migrainosus, not intractable G43.109 [place] [address] [address] Nov, [place] [address] [address] Nov, Low back pain M54.5 [place] [address] [address] Oct, Low back pain M54.5 [facility] [address] [address] Oct, Migraine without aura and without status migrainosus, not intractable G43.009 [facility] [address] [address] Sep, Low back pain M54.5 [facility] [address] [address] Sep, [facility] [address] [address] Sep, Migraine without aura and without status migrainosus, not intractable G43.009 [facility] [address] [address] Sep, Type 1 diabetes mellitus with hypoglycem ia without coma E10.649 ; Anemia D64.9 ; Migraine without aura and without status migrainosus, not intractable G43.009 ; Chronic kidney disease, unspecified N18.9 ; Autonomic neuropathy G90.9 and Postural hypotension I95.1 [place] [address] [address] Sep, Low back pain M54.5 [facility] [address] [address] Aug, Low back pain M54.5 [facility] [address] [address] 14 Jul, 2017 [facility] [address] [address] Jul, Low back pain M54.5 [facility] [address] [address] Jun, [facility] [address] [address] Jun, Low back pain M54.5 [facility] [address] [address] Jun, Migraine without aura and without status migrainosus, not intractable G43.009 [facility] [address] [address] Jun, Type 1 diabetes mellitus with hyperglyce sebastian E10.65 ; Dysthymia F34.1 and Migraine without aura and without status migrainosus, not intractable G43.009 [facility] [address] [address] Jun, [facility] [address] [address] May, Type 1 diabetes mellitus with hyperglyce sebastian E10.65 [facility] [address] [address] May, Low back pain M54.5 [facility] [address] [address] May, Type 1 diabetes mellitus with hyperglyce sebastian E10.65 [facility] [address] [address] Apr, [facility] [address] [address] Apr, Chronic kidney disease, stage 4 (severe) N18.4 [facility] [address] [address] Apr, Low back pain M54.5 [facility] [address] [address] March, [facility] [address] [address] March, Low back pain M54.5 [facility] [address] [address] Feb, [facility] [address] [address] Feb, [facility] [address] [address] Feb, Low back pain M54.5 [facility] [address] [address] Feb, Low back pain M54.5 [facility] [address] [address] Feb, Migraine without aura and without status migrainosus, not intractable G43.009 [place] [address] [address] Feb, [place] [address] [address] Jan, Low back pain M54.5 [place] [address] [address] Jan, Type 1 diabetes mellitus without complic ations E10.9 ; Anemia D64.9 ; Chronic kidney disease, unspecified N18.9 ; Migraine without aura and without status migrainosus, not intractable G43.009 and Other insomnia G47.09 [place] [address] [address] Jan, [place] [address] [address] Dec, Low back pain M54.5 [place] [address] [address] Dec, [facility] [address] [address] Dec, [facility] [address] [address] 08 Dec, 2016 Shortness of breath R06.02 ; Type 1 diab etes mellitus without complications E10.9 and Leg swelling M79.89 [facility] [address] [address] Nov, Low back pain M54.5 [facility] [address] [address] Nov, Viral syndrome B34.9 [facility] [address] [address] Oct, Low back pain M54.5 [facility] [address] [address] Oct, [place] [address] [address] Oct, Low back pain M54.5 [place] [address] [address] Sep, [place] [address] [address] Sep, Fatigue, unspecified type R53.83 ; Type 1 diabetes mellitus without complications E10.9 and Anemia D64.9 [place] [address] [address] Sep, Low back pain M54.5 [place] [address] [address] Sep, Type 1 diabetes mellitus with hyperglyce sebastian E10.65 [place] [address] [address] Aug, Type 1 diabetes mellitus without complic ations E10.9 [place] [address] [address] Aug, [place] [address] [address] Aug, [place] [address] [address] Jul, [place] [address] [address] 14 Jul, 2016 Low back pain M54.5 [place] [address] [address] 12 Jul, 2016 Hyperkalemia, diminished renal excretion E87.5 [facility] [address] [address] Jul, Hyperkalemia, diminished renal excretion E87.5 [facility] [address] [address] Jun, [facility] [address] [address] Jun, Low back pain M54.5 [facility] [address] [address] Jun, Anemia D64.9 ; Autonomic neuropathy G90. 9 and Postural hypotension I95.1 [place] [address] [address] Jun, [facility] [address] [address] May, Type 1 diabetes mellitus with complicati ons E10.8 and Anemia D64.9 [facility] [address] [address] May, Low back pain M54.5 [place] [address] [address] Apr, [facility] [address] [address] Apr, Low back pain M54.5 [place] [address] [address] Apr, [facility] [address] [address] Apr, [facility] [address] [address] March, Low back pain M54.5 and Other chronic pa in G89.29 [facility] [address] [address] March, Type 1 diabetes mellitus without complic ations E10.9 [facility] [id number] [place] [address] March, [facility] [address] [address] March, [facility] [address] [address] Feb, [facility] [address] [address] Feb, Type 1 diabetes mellitus without complic ations E10.9 [facility] [address] [address] Feb, Trochanteric bursitis, right hip M70.61 [place] [address] [address] Jan, [facility] [address] [address] Jan, [facility] [address] [address] Dec, Type 1 diabetes mellitus with complicati ons E10.8 [place] [address] [address] Dec, [facility] [address] [address] Dec, Anemia D64.9 ; Autonomic neuropathy G90. 9 and Postural hypotension I95.1 [place] [address] [address] Dec, [facility] [address] [address] Nov, Sore throat J02.9 [facility] [address] [address] Nov, Type 1 diabetes mellitus with complicati ons E10.8 [facility] [address] [address] Nov, Type 1 diabetes mellitus with diabetic n ephropathy E10.21 ; Proteinuria, unspecified R80.9 and Chronic kidney disease, unspecified N18.9 [facility] [address] [address] Nov, [facility] [address] [address] Nov, Trochanteric bursitis, right hip M70.61 [facility] [address] [address] Nov, [facility] [address] [address] Oct, [facility] [address] [address] Oct, [facility] [address] [address] Oct, [facility] [address] [address] Sep, [facility] [address] [address] Sep, [facility] [address] [address] Sep, Type 2 diabetes mellitus with complicati on E11.8 and Right hip pain M25.551 [facility] [address] [address] Sep, [facility] [address] [address] Aug, [facility] [address] [address] Aug, [facility] [address] [address] Aug, [facility] [address] [address] Aug, Type 1 diabetes mellitus without complic ations E10.9 [facility] [address] [place] [address] 16 Jul, 2015 [facility] [address] [address] 15 Jul, 2015 [facility] [address] [address] Jul, [facility] [address] [address] Jun, [facility] [address] [address] Jun, [facility] [address] [address] Jun, [facility] [address] [address] Jun, [facility] [address] [address] Jun, [facility] [address] [address] Jun, Diabetes mellitus without mention of com plication, type I [juvenile type], not stated as uncontrolled 250.01 [facility] [address] [address] May, [facility] [address] [address] May, [facility] [address] [address] May, [facility] [address] [address] May, Autonomic neuropathy 337.9 ; Postural hy potension 458.0 and Anemia 285.9 [facility] [address] [address] May, [facility] [address] [address] Apr, [facility] [address] [address] Apr, [facility] [place] [facility] [address] [facility] [id number] [facility] [address] Apr, [facility] [place] [facility] [address] [facility] [id number] [facility] [place] [address] Apr, [facility] [place] [facility] [address] [id number] [place] [address] Apr, [facility] [place] [facility] [address] [id number] [place] [address] March, [facility] [place] [facility] [address] [facility] [id number] [facility] [place] [address] March, [facility] [place] [facility] [address] [id number] [place] [address] March, [facility] [place] [facility] [address] [id number] [place] [address] March, [facility] [place] [facility] [address] [id number] [facility] [place] [address] March, [facility] [place] [facility] [address] [id number] [place] [address] Feb, [facility] [place] [facility] [address] [id number] [facility] [place] [address] 14 Feb, 2015 [facility] [place] [facility] [address] [id number] [place] [address] Feb, [facility] [place] [facility] [address] [id number] [place] [address] 30 Jan, 2015 [facility] [place] [facility] [address] [facility] [id number] [facility] [place] [address] Jan, [facility] [place] [facility] [address] [facility] [id number] [place] [address] Jan, [facility] [place] [facility] [address] [id number] [place] [address] Jan, [facility] [place] [facility] [address] [id number] [facility] [place] [address] Jan, [facility] [place] [facility] [address] [id number] [place] [address] Jan, [facility] [place] [facility] [address] [facility] [id number] [facility] [place] [address] Jan, [facility] [place] [facility] [address] [id number] [place] [address] Jan, [facility] [place] [facility] [address] [id number] [place] [address] Jan, [facility] [place] [facility] [address] [id number] [place] [address] Jan, [facility] [place] [facility] [address] [facility] [id number] [place] [address] Jan, [facility] [place] [facility] [address] [id number] [place] [address] Jan, [facility] [place] [facility] [address] [id number] [place] [address] Jan, [facility] [place] [facility] [address] [id number] [place] [address] Dec, 2014 [facility] [place] [facility] [address] [id number] [place] [address] Dec, [facility] [place] [facility] [address] [id number] [place] [address] Dec, 2014 [facility] [place] [facility] [address] [id number] [place] [address] Dec, 2014 [facility] [place] [facility] [address] [id number] [place] [address] Dec, 2014 [facility] [place] [facility] [address] [id number] [place] [address] Dec, 2014 [facility] [place] [facility] [address] [id number] [place] [address] Dec, 2014 [facility] [place] [facility] [address] [id number] [place] [address] Dec, [facility] [place] [facility] [address] [id number] [place] [address] Nov, [facility] [place] [facility] [address] [id number] [place] [address] Nov, [facility] [place] [facility] [address] [id number] [place] [address] Nov, [facility] [place] [facility] [address] [id number] [place] [address] Nov, [facility] [place] [facility] [address] [id number] [place] [address] Nov, [facility] [place] [facility] [address] [id number] [place] [address] Nov, [facility] [place] [facility] [address] [id number] [place] [address] Nov, [facility] [place] [facility] [address] [id number] [place] [address] Nov, [facility] [place] [facility] [address] [id number] [place] [address] Nov, [facility] [place] [facility] [address] [id number] [place] [address] Oct, [facility] [place] [facility] [address] [id number] [place] [address] Oct, [facility] [facility] [address] [id number] [place] [address] Oct, [facility] [place] [facility] [address] [id number] [place] [address] Oct, [facility] [place] [facility] [address] [id number] [place] [address] Oct, [facility] [place] [facility] [address] [id number] [place] [address] Oct, [facility] [place] [facility] [address] [id number] [place] [address] Oct, [facility] [place] [facility] [address] [id number] [place] [address] Oct, [facility] [place] [facility] [address] [id number] [place] [address] Oct, [facility] [place] [facility] [address] [id number] [place] [address] Oct, [facility] [place] [facility] [address] [id number] [place] [address] Oct, [facility] [place] [facility] [address] [id number] [place] [address] Oct, [facility] [place] [facility] [address] [id number] [place] [address] Oct, [facility] [place] [facility] [address] [id number] [place] [address] Oct, [facility] [place] [facility] [address] [id number] [place] [address] Sep, [facility] [place] [facility] [address] [id number] [place] [address] Sep, [facility] [place] [facility] [address] [id number] [place] [address] Sep, [facility] [place] [facility] [address] [id number] [place] [address] Sep, [facility] [place] [facility] [address] [id number] [place] [address] Aug, [facility] [place] [facility] [address] [id number] [place] [address] Aug, [facility] [place] [facility] [address] [id number] [place] [address] Aug, [facility] [place] [facility] [address] [id number] [place] [address] Aug, [facility] [place] [facility] [address] [id number] [place] [address] Aug, [facility] [place] [facility] [address] [id number] [place] [address] Aug, [facility] [place] [facility] [address] [id number] [place] [address] Aug, [facility] [place] [facility] [address] [facility] [id number] [place] [address] 06 Aug, 2013 [facility] [place] [facility] [address] [id number] [place] [address] Aug, [facility] [place] [facility] [address] [id number] [place] [address] Aug, [facility] [place] [facility] [address] [id number] [place] [address] 29 Sep, 2013 [facility] [place] [facility] [address] [id number] [place] [address] 29 Sep, 2013 [facility] [place] [facility] [address] [id number] [place] [address] 29 Jul, 2013 [facility] [place] [facility] [address] [id number] [place] [address] 29 Jul, 2013 [facility] [place] [facility] [address] [id number] [place] [address] 22 Jul, 2013 [facility] [place] [facility] [address] [id number] [place] [address] 22 Jul, 2013 [facility] [place] [facility] [address] [id number] [place] [address] 19 Jul, 2013 [facility] [place] [facility] [address] [id number] [place] [address] 19 Jul, 2013 [facility] [place] [facility] [address] [id number] [place] [address] 11 Jul, 2013 [facility] [place] [facility] [address] [id number] [place] [address] 11 Jul, 2013 [facility] [place] [facility] [address] [id number] [place] [address] 10 Sep, 2013 [facility] [place] [facility] [address] [id number] [place] [address] 10 Sep, 2013 [facility] [place] [facility] [address] [id number] [place] [address] 08 Sep, 2013 [facility] [place] [facility] [address] [id number] [place] [address] 08 Sep, 2013 [facility] [place] [facility] [address] [id number] [facility] [place] [address] Jul, 2013 [facility] [place] [facility] [address] [id number] [place] [address] 03 Jul, 2013 [facility] [place] [facility] [address] [facility] [id number] [facility] [address] Jul, 2013 [facility] [place] [facility] [address] [id number] [facility] [place] [address] Jul, 2013 [facility] [place] [facility] [address] [facility] [id number] [place] [address] Jun, [facility] [place] [facility] [address] [id number] [place] [address] Jun, [facility] [place] [facility] [address] [id number] [place] [address] Jun, [facility] [place] [facility] [address] [id number] [place] [address] Jun, [facility] [place] [facility] [address] [facility] [id number] [place] [address] Jun, [facility] [place] [facility] [address] [id number] [place] [address] Jun, [facility] [place] [facility] [address] [id number] [place] [address] Jun, [facility] [place] [facility] [address] [id number] [place] [address] Jun, [facility] [place] [facility] [address] [facility] [id number] [place] [address] Jun, [facility] [place] [facility] [address] [id number] [place] [address] Jun, [facility] [place] [facility] [address] [facility] [id number] [place] [address] Jun, [facility] [place] [facility] [address] [id number] [place] [address] Jun, [facility] [place] [facility] [address] [facility] [id number] [facility] [address] Jun, [facility] [place] [facility] [address] [facility] [id number] [facility] [address] Jun, [facility] [place] [facility] [address] [facility] [id number] [place] [address] Jun, [facility] [place] [facility] [address] [id number] [place] [address] May, [facility] [place] [facility] [address] [facility] [id number] [place] [address] May, [facility] [place] [facility] [address] [facility] [id number] [facility] [place] [address] May, [facility] [place] [facility] [address] [id number] [place] [address] May, [facility] [place] [facility] [address] [id number] [place] [address] May, [facility] [place] [facility] [address] [id number] [place] [address] May, [facility] [place] [facility] [address] [facility] [id number] [place] [address] May, [facility] [place] [facility] [address] [id number] [place] [address] May, [facility] [place] [facility] [address] [id number] [place] [address] Apr, [facility] [place] [facility] [address] [id number] [place] [address] Apr, [facility] [place] [facility] [address] [facility] [id number] [place] [address] Apr, [facility] [place] [facility] [address] [id number] [place] [address] Apr, [facility] [place] [facility] [address] [id number] [place] [address] Apr, [facility] [place] [facility] [address] [id number] [place] [address] Apr, [facility] [place] [facility] [address] [facility] [id number] [place] [address] Apr, [facility] [place] [facility] [address] [facility] [id number] [place] [address] Apr, [facility] [place] [facility] [address] [facility] [id number] [place] [address] Apr, [facility] [place] [facility] [address] [id number] [place] [address] Apr, [facility] [place] [facility] [address] [facility] [id number] [place] [address] Apr, [facility] [place] [facility] [address] [id number] [place] [address] Apr, [facility] [place] [facility] [address] [id number] [place] [address] Apr, [facility] [place] [facility] [address] [id number] [place] [address] Apr, [facility] [place] [facility] [address] [id number] [place] [address] Apr, [facility] [place] [facility] [address] [id number] [place] [address] Apr, [facility] [place] [facility] [address] [id number] [place] [address] Apr, [facility] [place] [facility] [address] [id number] [place] [address] Apr, [facility] [place] [facility] [address] [id number] [place] [address] March, [facility] [place] [facility] [address] [facility] [id number] [place] [address] March, [facility] [place] [facility] [address] [id number] [place] [address] March, [facility] [place] [facility] [address] [id number] [place] [address] March, [facility] [place] [facility] [address] [id number] [place] [address] March, [facility] [place] [facility] [address] [id number] [place] [address] March, [facility] [place] [facility] [address] [id number] [facility] [place] [address] March, [facility] [place] [facility] [address] [id number] [place] [address] March, [facility] [place] [facility] [address] [id number] [facility] [place] [address] March, [facility] [place] [facility] [address] [facility] [id number] [place] [address] Feb, [facility] [place] [facility] [address] [id number] [place] [address] Feb, [facility] [place] [facility] [address] [id number] [place] [address] Feb, [facility] [place] [facility] [address] [id number] [place] [address] Feb, [facility] [place] [facility] [address] [id number] [place] [address] Feb, [facility] [place] [facility] [address] [id number] [place] [address] Feb, [facility] [place] [facility] [address] [id number] [place] [address] Feb, [facility] [place] [facility] [address] [id number] [place] [address] Feb, [facility] [place] [facility] [address] [id number] [place] [address] Feb, [facility] [place] [facility] [address] [id number] [place] [address] Feb, [facility] [place] [facility] [address] [id number] [place] [address] Feb, [facility] [place] [facility] [address] [id number] [place] [address] Feb, [facility] [place] [facility] [address] [id number] [facility] [place] [address] 08 Feb, 2014 [facility] [place] [facility] [address] [facility] [id number] [facility] [place] [address] Jan, [facility] [place] [facility] [address] [facility] [id number] [facility] [place] [address] Jan, [facility] [place] [facility] [address] [id number] [place] [address] Jan, [facility] [place] [facility] [address] [facility] [id number] [facility] [address] Jan, [facility] [place] [facility] [address] [facility] [id number] [facility] [place] [address] Jan, [facility] [place] [facility] [address] [id number] [place] [address] Jan, [facility] [place] [facility] [address] [id number] [place] [address] Jan, [facility] [place] [facility] [address] [id number] [place] [address] Jan, [facility] [place] [facility] [address] [id number] [facility] [place] [address] Dec, [facility] [place] [facility] [address] [id number] [place] [address] Dec, [facility] [place] [facility] [address] [id number] [place] [address] Dec, [facility] [place] [facility] [address] [id number] [place] [address] Dec, [facility] [place] [facility] [address] [facility] [id number] [place] [address] Dec, [facility] [place] [facility] [address] [id number] [place] [address] Dec, [facility] [place] [facility] [address] [id number] [place] [address] Dec, [facility] [place] [facility] [address] [id number] [place] [address] Dec, [facility] [place] [facility] [address] [id number] [place] [address] Dec, [facility] [place] [facility] [address] [id number] [place] [address] Dec, [facility] [place] [facility] [address] [id number] [place] [address] Nov, [facility] [place] [facility] [address] [id number] [place] [address] Nov, [facility] [place] [facility] [address] [id number] [place] [address] Nov, [facility] [place] [facility] [address] [id number] [place] [address] Nov, [facility] [place] [facility] [address] [id number] [place] [address] Nov, [facility] [place] [facility] [id number] [place] [address] Nov, [facility] [place] [facility] [address] [id number] [place] [address] Nov, [facility] [place] [facility] [id number] [place] [address] Nov, [facility] [place] [facility] [address] [id number] [place] [address] Nov, [facility] [place] [facility] [id number] [place] [address] Nov, [facility] [place] [facility] [address] [id number] [place] [address] Oct, [facility] [place] [facility] [address] [id number] [place] [address] Oct, [facility] [place] [facility] [address] [id number] [place] [address] Oct, [facility] [place] [facility] [address] [id number] [place] [address] Oct, [facility] [place] [facility] [address] [id number] [place] [address] 17 Oct, 2013 [facility] [place] [facility] [address] [id number] [place] [address] 17 Oct, 2013 [facility] [place] [facility] [address] [id number] [place] [address] 16 Oct, 2013 [facility] [place] [facility] [address] [id number] [place] [address] 16 Oct, 2013 [facility] [place] [facility] [address] [id number] [place] [address] Oct, [facility] [place] [facility] [address] [id number] [place] [address] Oct, [facility] [place] [facility] [address] [id number] [place] [address] Oct, [facility] [place] [facility] [address] [id number] [place] [address] Oct, [facility] [place] [facility] [address] [id number] [place] [address] Oct, [facility] [place] [facility] [address] [id number] [place] [address] Oct, [facility] [place] [facility] [address] [id number] [place] [address] Sep, [facility] [place] [facility] [address] [id number] [place] [address] Sep, [facility] [place] [facility] [id number] [place] [address] 18 Sep, 2013 [facility] [place] [facility] [address] [id number] [place] [address] 18 Sep, 2013 [facility] [place] [facility] [id number] [place] [address] Sep, [facility] [place] [facility] [address] [id number] [place] [address] Sep, [facility] [place] [facility] [address] [id number] [place] [address] Aug, [facility] [place] [facility] [address] [id number] [place] [address] 31 Aug, 2012 [facility] [place] [facility] [address] [id number] [place] [address] 17 Aug, 2012 [facility] [place] [facility] [address] [id number] [place] [address] 17 Aug, 2012 [facility] [place] [facility] [address] [id number] [place] [address] 10 Aug, 2012 [facility] [place] [facility] [address] [id number] [place] [address] 10 Aug, 2012 [facility] [place] [facility] [address] [id number] [place] [address] 07 Aug, 2012 [facility] [place] [facility] [address] [id number] [place] [address] 02 Aug, 2013 [facility] [place] [facility] [address] [id number] [place] [address] 02 Aug, 2013 [facility] [place] [facility] [address] [id number] [place] [address] 25 Sep, 2012 [facility] [place] [facility] [address] [id number] [place] [address] 23 Sep, 2012 [facility] [place] [facility] [address] [id number] [place] [address] 21 Sep, 2012 [facility] [place] [facility] [address] [id number] [place] [address] 20 Sep, 2012 [facility] [place] [facility] [address] [id number] [place] [address] 18 Sep, 2012 [facility] [place] [facility] [address] [id number] [place] [address] 17 Sep, 2012 [facility] [place] [facility] [address] [id number] [place] [address] 16 Sep, 2012 [facility] [place] [facility] [address] [id number] [place] [address] 11 Sep, 2012 [facility] [place] [facility] [address] [id number] [place] [address] 09 Sep, 2012 [facility] [place] [facility] [address] [id number] [facility] [place] [address] Jul, 2012 [facility] [place] [facility] [address] [facility] [id number] [facility] [place] [address] Jul, 2012 [facility] [place] [facility] [address] [facility] [id number] [place] [address] Jul, [facility] [place] [facility] [address] [id number] [facility] [place] [address] Jun, [facility] [place] [facility] [address] [facility] [id number] [facility] [place] [address] Jun, [facility] [place] [facility] [address] [id number] [place] [address] Jun, [facility] [place] [facility] [address] [id number] [place] [address] Jun, [facility] [place] [facility] [address] [id number] [place] [address] Jun, [facility] [place] [facility] [address] [id number] [place] [address] Jun, [facility] [place] [facility] [address] [id number] [place] [address] Jun, [facility] [place] [facility] [address] [id number] [place] [address] Jun, [facility] [place] [facility] [address] [id number] [place] [address] Jun, [facility] [place] [facility] [address] [facility] [id number] [place] [address] May, [facility] [place] [facility] [address] [id number] [place] [address] May, [facility] [place] [facility] [address] [id number] [place] [address] May, [facility] [place] [facility] [address] [id number] [place] [address] May, [facility] [place] [facility] [address] [id number] [facility] [place] [address] May, [facility] [place] [facility] [address] [id number] [facility] [address] May, [facility] [place] [facility] [address] [facility] [id number] [facility] [place] [address] May, [facility] [place] [facility] [address] [id number] [place] [address] March, [facility] [place] [facility] [address] [id number] [facility] [place] [address] March, [facility] [address] [id number] [facility] [place] [address] March, [facility] [address] [id number] [place] [address] Dec, [facility] [address] [id number] [place] [address] Nov, [facility] [address] [id number] [place] [address] Aug, [facility] [address] [id number] [place] [address] Aug, [facility] [address] [id number] [place] [address] Jun, [facility] [address] [id number] [place] [address] Jun, [facility] [address] [id number] [place] [address] Jun, [facility] [address] [facility] [id number] [facility] [place] [address] Jun, [facility] [address] [id number] [facility] [place] [address] May, [facility] [address] [id number] [facility] [place] [address] May, [facility] [address] [id number] [place] [address] May, [facility] [address] [id number] [place] [address] May, [facility] [address] [id number] [place] [address] May, [facility] [address] [id number] [place] [address] May, [facility] [address] [id number] [place] [address] May, [facility] [address] [id number] [place] [address] Apr, [facility] [address] [id number] [place] [address] Apr, [facility] [address] [id number] [place] [address] Apr, [facility] [address] [id number] [place] [address] Apr, [facility] [address] [id number] [place] [address] March, [facility] [address] [id number] [place] [address] March, [facility] [address] [id number] [place] [address] March, [facility] [address] [id number] [place] [address] March, [facility] [address] [id number] [place] [address] March, [facility] [address] [id number] [place] [address] March, [facility] [address] [id number] [place] [address] March, [facility] [address] [id number] [place] [address] March, [facility] [address] [id number] [place] [address] March, [facility] [address] [facility] [id number] [facility] [place] [address] Feb, [facility] [address] [facility] [id number] [facility] [place] [address] Feb, [facility] [address] [facility] [id number] [facility] [place] [address] Jan, [facility] [address] [id number] [facility] [place] [address] 27 Jan, 2012 [facility] [address] [facility] [id number] [facility] [place] [address] 16 Jan, 2012 [facility] [address] [id number] [place] [address] 05 Jan, 2012 [facility] [address] [id number] [place] [address] Dec, [facility] [address] [id number] [place] [address] 16 Dec, 2011 [facility] [address] [id number] [place] [address] 15 Dec, 2011 [facility] [address] [id number] [place] [address] Nov, [facility] [address] [id number] [place] [address] Oct, [facility] [address] [id number] [place] [address] 15 Oct, 2011 [facility] [address] [id number] [place] [address] 15 Oct, 2011 [facility] [address] [id number] [place] [address] 14 Oct, 2011 [facility] [address] [id number] [place] [address] 14 Oct, 2011 [facility] [address] [id number] [place] [address] Oct, [facility] [address] [id number] [place] [address] Oct, [facility] [address] [id number] [place] [address] Oct, [facility] [id number] [place] [address] Sep, [facility] [id number] [place] [address] Sep, [facility] [id number] [place] [address] Sep, [facility] [id number] [place] [address] Sep, [facility] [id number] [place] [address] Sep, [facility] [id number] [place] [address] Sep, [facility] [id number] [place] [address] Sep, [facility] [id number] [place] [address] Sep, [facility] [id number] [place] [address] Sep, [facility] [id number] [place] [address] Aug, [facility] [id number] [place] [address] Jul, [facility] [id number] [place] [id number] Oct, [facility] [address] [id number] [place] [address] Oct, [facility] [address] [id number] [place] [address] Oct, IMMUNIZATIONS No Known Immunizations SOCIAL HISTORY Never Assessed REASON FOR VISIT PLAN OF CARE VITAL SIGNS Weight 122.06 lbs 2014-03-23 Temperature 96.5 degrees Fahrenheit 2014-03-23 Heart Rate 70 bpm 2014-03-23 Respiratory Rate 16 2014-03-23 Blood pressure systolic 122 mmHg 2014-03-23 Blood pressure diastolic 70 mmHg 2014-03-23 MEDICATIONS Unknown Medications RESULTS No Results PROCEDURES Procedure Date Ordered Result Body Site COMPREHEN METABOLIC PANEL March 23, 2014 VITAMIN B-12 March 23, 2014 BLOOD FOLIC ACID SERUM March 23, 2014 COMPLETE CBC W/AUTO DIFF WBC March 23, 2014 IRON BINDING TEST March 23, 2014 ASSAY OF IRON March 23, 2014 ASSAY OF FERRITIN March 23, 2014 VENIPUNCT, ROUTINE* March 23, 2014 INSTRUCTIONS MEDICATIONS ADMINISTERED No Known Medications MEDICAL (GENERAL) HISTORY Type Description Date Medical History Diabetic Medical History kidney failure,and pancreatic failure Surgical History Bilat tubal ligation Surgical History Lt cataract surgery 04/2018 Surgical History Rt cataract surgery 05/2018 Surgical History pearateeal tube 05/2019 Hospitalization History Diabetic multiple hospitalizations Hospitalization History DKA 10/14-10/19
--- OUTSIDE RECORDS SUMMARY | 2020-03-19 06:04 | XMS REPORT ---
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 31374144 Problem Chronic kidney disease, unspecified N18.9 Active 125079265 Problem Anemia, unspecified D64.9 Active 050836185 Problem Irritable bowel K58.9 Active 1074 3008 Problem Irritable bowel syndrome with diarrhea K58.0 Active 722688650 Problem Claudication I73.9 Active 4656101 6 Problem Intractable migraine without aura and with status migr ainosus G43.011 Active 989108796 Problem Peritoneal dialysis status Z99.2 Act moody 853493191 Problem Migraine without aura and without status migrain osus, not intractable G43.009 Active 616187622 Problem Other insomnia G47.09 Active 61365 2000 Problem Dysthymia F34.1 Active 61189522 Problem Chronic kidney disease, stage 4 (severe) N18.4 Active 643654731 Problem Migraine with aura and without status migrainosu s, not intractable G43.109 Active 9780933 Problem Autonomic neuropathy G90.9 Active 274374864 Problem Type 1 diabetes mellitus with complications E10.8 Active 959005549 Problem Menorrhagia with regular cycle N92.0 Active 568184224 Problem Other chronic pain G89.29 Active 8 7942815 Problem Lymphedema I89.0 Active 253834742 Problem Essential hypertension I10 Active 85086013 Problem Moderate episode of recurrent major depressive disorder F33.1 Active 521537058 Problem Type 1 diabetes mellitus without complications E10 .9 Active 389844082 Problem Primary insomnia F51.01 Active 397 2004 Problem Migraine G43.909 Active 30864416 Problem Low back pain M54.5 Active 132805 009 Problem Diastolic dysfunction I51.89 Active 6245271 Problem ESRF (end stage renal failure) N18.6 Active 34564076 Problem Restless legs G25.81 Active 002284 08 Problem Hyperthyroidism E05.90 Active 3448 6009 ALLERGIES No Information ENCOUNTERS Encounter Location Date Diagnosis [place] [address] [address] 16 Jan, 2020 [place] [address] [address] Oct, Restless legs G25.81 [place] [address] [address] 16 Oct, 2019 Encounter for Medicare annual wellness e xam Z00.00 ; 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 ; Migraine without aura and without status migrainosus, not intractable G43.009 ; Chronic kidney disease, stage 4 (severe) N18.4 ; Claudication I73.9 ; Peritoneal dialysis status Z99.2 ; Diastolic dysfunction I51.89 ; Primary insomnia F51.01 and Burn T30.0 [place] [address] [address] Sep, Moderate episode of recurrent major depr essive disorder F33.1 and Primary insomnia F51.01 [place] [address] [address] Aug, Hyperthyroidism E05.90 [place] [address] [address] May, Restless legs G25.81 [place] [address] [address] May, [place] [address] [address] May, [place] [address] [address] May, Type 1 diabetes mellitus with hypoglycem ia without coma E10.649 ; ESRF (end stage renal failure) N18.6 ; Leg cramps R25.2 ; Restless legs G25.81 and Low back pain M54.5 [facility] [address] [address] Apr, Low back pain M54.5 [facility] [address] [address] 07 Apr, 2019 [facility] [address] [address] March, Low back pain M54.5 [facility] [address] [address] March, [facility] [address] [address] Feb, Low back pain M54.5 [facility] [address] [address] Jan, Low back pain M54.5 [facility] [address] [address] Jan, [facility] [address] [address] Jan, [facility] [address] [address] Jan, [facility] [address] [address] Dec, Type 1 diabetes mellitus with hypoglycem ia without coma E10.649 and Low back pain M54.5 [facility] [address] [address] Dec, Low back pain M54.5 [facility] [address] [address] 13 Dec, 2018 Diastolic dysfunction I51.89 ; Essential hypertension I10 and Chronic kidney disease, stage 4 (severe) N18.4 [facility] [address] [address] Dec, RUQ abdominal pain R10.11 ; Type 1 diabe camryn mellitus without complications E10.9 ; Therapeutic drug monitoring Z51.81 ; Migraine with aura and without status migrainosus, not intractable G43.109 and Intractable migraine without aura and with status migrainosus G43.011 [place] [address] [address] Nov, Low back pain M54.5 [place] [address] [address] Nov, [place] [address] [address] Nov, Intractable migraine without aura and wi th status migrainosus G43.011 ; Lymphedema I89.0 ; Pain in right shoulder M25.511 ; Other chronic pain G89.29 ; Irritable bowel syndrome with diarrhea K58.0 ; Type 1 diabetes mellitus without complications E10.9 and Essential hypertension I10 [place] [address] [address] Oct, Low back pain M54.5 [place] [address] [address] Oct, [place] [address] [address] Oct, Orthostatic hypotension I95.1 ; Shortnes s of breath R06.02 ; Leg swelling M79.89 ; Type 1 diabetes mellitus without complications E10.9 and Claudication I73.9 [place] [address] [address] Sep, Low back pain M54.5 [place] [address] [address] Sep, Low back pain M54.5 [place] [address] [address] Aug, [place] [address] [address] Aug, Migraine without aura and without status migrainosus, not intractable G43.009 [facility] [address] [address] Aug, Low back pain M54.5 [facility] [address] [facility] [id number] [place] [address] Aug, Acute rhinosinusitis J01.90 and Sore throat J02.9 [facility] [address] [address] Jul, Low back pain M54.5 [facility] [address] [address] Jul, Migraine without aura and without status migrainosus, not intractable G43.009 [place] [address] [address] Jun, Low back pain M54.5 [facility] [address] [address] Jun, [facility] [address] [address] Jun, Orthostatic hypotension I95.1 ; Shortnes s of breath R06.02 ; Type 1 diabetes mellitus without complications E10.9 and Leg swelling M79.89 [facility] [address] [address] Jun, Low back pain M54.5 [facility] [address] [address] Jun, [facility] [address] [address] May, Migraine without aura and without status migrainosus, not intractable G43.009 [facility] [address] [address] May, Migraine without aura and without status migrainosus, not intractable G43.009 ; Restless legs syndrome G25.81 ; Leg cramps R25.2 ; Chronic kidney disease, unspecified N18.9 ; Postural hypotension I95.1 ; Diarrhea, unspecified type R19.7 and Cough R05 [facility] [address] [address] May, [facility] [address] [address] May, [facility] [address] [address] May, Orthostatic hypotension I95.1 ; Shortnes s of breath R06.02 ; Type 1 diabetes mellitus with complications E10.8 and Leg swelling M79.89 [facility] [address] [address] May, [facility] [address] [address] May, Low back pain M54.5 [facility] [address] [address] Apr, Type 1 diabetes mellitus with hyperglyce sebastian E10.65 [facility] [address] [address] Apr, Low back pain M54.5 [facility] [address] [address] Apr, [facility] [address] [address] Apr, [facility] [address] [address] March, [facility] [address] [address] March, Low back pain M54.5 [facility] [address] [address] March, [facility] [address] [address] Feb, [facility] [address] [address] Feb, Low back pain M54.5 [place] [address] [address] Jan, Restless legs syndrome G25.81 [place] [address] [address] Jan, Low back pain M54.5 [place] [address] [address] Jan, [place] [address] [address] Jan, Type 1 diabetes mellitus without complic ations E10.9 ; Low back pain M54.5 ; Cough R05 ; Diarrhea, unspecified type R19.7 ; Migraine without aura and without status migrainosus, not intractable G43.009 and Uses control Z30.9 [place] [address] [address] Dec, Low back pain M54.5 [place] [address] [address] Dec, [place] [address] [address] Nov, Well woman exam Z01.419 ; Menorrhagia wi th regular cycle N92.0 ; Vaginal dryness N89.8 and Migraine with aura and without status migrainosus, not intractable G43.109 [place] [address] [address] Nov, [place] [address] [address] Nov, Low back pain M54.5 [place] [address] [address] Oct, Low back pain M54.5 [place] [address] [address] Oct, Migraine without aura and without status migrainosus, not intractable G43.009 [facility] [address] [address] Sep, Low back pain M54.5 [facility] [address] [address] Sep, [facility] [address] [address] Sep, Migraine without aura and without status migrainosus, not intractable G43.009 [facility] [address] [address] Sep, Type 1 diabetes mellitus with hypoglycem ia without coma E10.649 ; Anemia D64.9 ; Migraine without aura and without status migrainosus, not intractable G43.009 ; Chronic kidney disease, unspecified N18.9 ; Autonomic neuropathy G90.9 and Postural hypotension I95.1 [facility] [address] [address] Sep, Low back pain M54.5 [facility] [address] [address] Aug, Low back pain M54.5 [facility] [address] [address] 14 Jul, 2017 [facility] [address] [address] Jul, Low back pain M54.5 [facility] [address] [address] Jun, [facility] [address] [address] Jun, Low back pain M54.5 [facility] [address] [address] Jun, Migraine without aura and without status migrainosus, not intractable G43.009 [facility] [address] [address] Jun, Type 1 diabetes mellitus with hyperglyce sebastain E10.65 ; Dysthymia F34.1 and Migraine without aura and without status migrainosus, not intractable G43.009 [facility] [address] [address] Jun, [facility] [address] [address] May, Type 1 diabetes mellitus with hyperglyce sebastian E10.65 [facility] [address] [address] May, Low back pain M54.5 [place] [address] [address] May, Type 1 diabetes mellitus with hyperglyce sebastian E10.65 [place] [address] [address] Apr, [place] [address] [address] Apr, Chronic kidney disease, stage 4 (severe) N18.4 [place] [address] [address] Apr, Low back pain M54.5 [place] [address] [address] March, [place] [address] [address] March, Low back pain M54.5 [place] [address] [address] Feb, [place] [address] [address] Feb, [place] [address] [address] Feb, Low back pain M54.5 [place] [address] [address] Feb, Low back pain M54.5 [facility] [address] [address] Feb, Migraine without aura and without status migrainosus, not intractable G43.009 [facility] [address] [address] Feb, [place] [address] [address] Jan, Low back pain M54.5 [place] [address] [address] Jan, Type 1 diabetes mellitus without complic ations E10.9 ; Anemia D64.9 ; Chronic kidney disease, unspecified N18.9 ; Migraine without aura and without status migrainosus, not intractable G43.009 and Other insomnia G47.09 [place] [address] [address] Jan, [place] [address] [address] Dec, Low back pain M54.5 [place] [address] [address] Dec, [place] [address] [address] Dec, [place] [address] [address] 08 Dec, 2016 Shortness of breath R06.02 ; Type 1 diab etes mellitus without complications E10.9 and Leg swelling M79.89 [place] [address] [address] Nov, Low back pain M54.5 [place] [address] [address] Nov, Viral syndrome B34.9 [place] [address] [address] Oct, Low back pain M54.5 [facility] [address] [address] 15 Oct, 2016 [facility] [address] [address] Oct, Low back pain M54.5 [facility] [address] [address] Sep, [facility] [address] [address] Sep, Fatigue, unspecified type R53.83 ; Type 1 diabetes mellitus without complications E10.9 and Anemia D64.9 [place] [address] [address] Sep, Low back pain M54.5 [place] [address] [address] Sep, Type 1 diabetes mellitus with hyperglyce sebastian E10.65 [place] [address] [address] Aug, Type 1 diabetes mellitus without complic ations E10.9 [place] [address] [address] Aug, [place] [address] [address] Aug, [place] [address] [address] Jul, [facility] [address] [address] 14 Jul, 2016 Low back pain M54.5 [facility] [address] [address] 12 Jul, 2016 Hyperkalemia, diminished renal excretion E87.5 [facility] [address] [address] 09 Jul, 2016 Hyperkalemia, diminished renal excretion E87.5 [facility] [address] [address] Jun, [facility] [address] [address] Jun, Low back pain M54.5 [facility] [address] [address] Jun, Anemia D64.9 ; Autonomic neuropathy G90. 9 and Postural hypotension I95.1 [facility] [address] [address] Jun, [facility] [address] [address] May, Type 1 diabetes mellitus with complicati ons E10.8 and Anemia D64.9 [facility] [address] [address] May, Low back pain M54.5 [facility] [address] [address] Apr, [facility] [address] [address] Apr, Low back pain M54.5 [facility] [address] [address] Apr, [facility] [address] [address] Apr, [facility] [address] [address] March, Low back pain M54.5 and Other chronic pa in G89.29 [facility] [address] [address] March, Type 1 diabetes mellitus without complic ations E10.9 [facility] [address] [address] March, [facility] [address] [address] March, [facility] [address] [address] Feb, [facility] [address] [address] Feb, Type 1 diabetes mellitus without complic ations E10.9 [place] [address] [address] Feb, Trochanteric bursitis, right hip M70.61 [place] [address] [address] Jan, [place] [address] [address] Jan, [place] [address] [address] Dec, Type 1 diabetes mellitus with complicati ons E10.8 [place] [address] [address] Dec, [place] [address] [address] Dec, Anemia D64.9 ; Autonomic neuropathy G90. 9 and Postural hypotension I95.1 [place] [address] [address] Dec, [place] [address] [address] Nov, Sore throat J02.9 [place] [address] [address] Nov, Type 1 diabetes mellitus with complicati ons E10.8 [place] [address] [address] Nov, Type 1 diabetes mellitus with diabetic n ephropathy E10.21 ; Proteinuria, unspecified R80.9 and Chronic kidney disease, unspecified N18.9 [place] [address] [address] Nov, [place] [address] [place] [id number] [place] [address] Nov, Trochanteric bursitis, right hip M70.61 [facility] [address] [place] [id number] [place] [address] Nov, [facility] [address] [place] [id number] [place] [address] Oct, [facility] [address] [address] Oct, [facility] [address] [place] [id number] [place] [address] Oct, [facility] [address] [address] Sep, [facility] [address] [place] [id number] [place] [address] Sep, [facility] [address] [address] Sep, Type 2 diabetes mellitus with complicati on E11.8 and Right hip pain M25.551 [facility] [address] [address] Sep, [facility] [address] [address] Aug, [facility] [address] [place] [id number] [place] [address] Aug, [facility] [address] [address] Aug, [facility] [address] [place] [id number] [place] [address] Aug, Type 1 diabetes mellitus without complic ations E10.9 [facility] [address] [place] [id number] [place] [address] 16 Jul, 2015 [facility] [address] [address] 15 Jul, 2015 [facility] [address] [place] [address] Jul, [facility] [address] [address] Jun, [facility] [address] [address] Jun, [facility] [address] [address] Jun, [facility] [address] [address] Jun, [facility] [address] [address] Jun, [facility] [address] [address] Jun, Diabetes mellitus without mention of com plication, type I [juvenile type], not stated as uncontrolled 250.01 [facility] [address] [address] May, [facility] [address] [address] May, [facility] [address] [address] May, [facility] [address] [address] May, Autonomic neuropathy 337.9 ; Postural hy potension 458.0 and Anemia 285.9 [facility] [address] [address] May, [facility] [address] [address] Apr, [facility] [address] [address] Apr, [facility] [address] [address] Apr, [facility] [address] [address] Apr, [facility] [address] [facility] [id number] [facility] [place] [address] Apr, [facility] [address] [facility] [id number] [facility] [place] [address] March, [facility] [address] [id number] [place] [address] March, [facility] [address] [id number] [facility] [place] [address] March, [facility] [address] [facility] [id number] [facility] [place] [address] March, [facility] [address] [id number] [place] [address] March, [facility] [address] [id number] [place] [address] Feb, [facility] [address] [id number] [place] [address] Feb, [facility] [place] [facility] [address] [id number] [place] [address] Feb, [facility] [place] [facility] [address] [id number] [place] [address] 30 Jan, 2015 [facility] [place] [facility] [address] [id number] [place] [address] Jan, [facility] [place] [facility] [address] [id number] [place] [address] 24 Jan, 2015 [facility] [place] [facility] [address] [id number] [place] [address] Jan, [facility] [place] [facility] [address] [facility] [id number] [place] [address] Jan, [facility] [place] [facility] [address] [id number] [place] [address] Jan, [facility] [place] [facility] [address] [id number] [place] [address] Jan, [facility] [place] [facility] [address] [id number] [place] [address] Jan, [facility] [place] [facility] [address] [id number] [place] [address] Jan, [facility] [place] [facility] [address] [id number] [place] [address] Jan, [facility] [place] [facility] [address] [id number] [place] [address] Jan, [facility] [place] [facility] [address] [id number] [place] [address] Jan, [facility] [place] [facility] [address] [id number] [place] [address] Jan, [facility] [place] [facility] [address] [id number] [place] [address] Dec, [facility] [place] [facility] [address] [id number] [place] [address] Dec, [facility] [place] [facility] [address] [id number] [place] [address] Dec, [facility] [place] [facility] [address] [id number] [place] [address] Dec, [facility] [place] [facility] [address] [id number] [place] [address] Dec, [facility] [place] [facility] [address] [id number] [place] [address] Dec, [facility] [place] [facility] [address] [id number] [place] [address] Dec, [facility] [place] [facility] [address] [id number] [place] [address] Dec, [facility] [place] [facility] [address] [id number] [place] [address] Nov, [facility] [place] [facility] [address] [id number] [place] [address] Nov, [facility] [place] [facility] [address] [id number] [place] [address] Nov, [facility] [place] [facility] [address] [id number] [place] [address] Nov, [facility] [place] [facility] [address] [id number] [place] [address] Nov, [facility] [place] [facility] [address] [id number] [place] [address] Nov, [facility] [place] [facility] [address] [id number] [place] [address] Nov, [facility] [place] [facility] [address] [id number] [place] [address] Nov, [facility] [place] [facility] [address] [id number] [place] [address] Nov, [facility] [place] [facility] [address] [id number] [place] [address] Oct, [facility] [place] [facility] [address] [id number] [place] [address] Oct, [facility] [place] [facility] [address] [id number] [place] [address] Oct, [facility] [place] [facility] [address] [id number] [place] [address] Oct, [facility] [place] [facility] [address] [id number] [place] [address] Oct, [facility] [place] [facility] [address] [id number] [place] [address] Oct, [facility] [place] [facility] [address] [id number] [place] [address] Oct, [facility] [place] [facility] [address] [id number] [place] [address] Oct, [facility] [place] [facility] [address] [id number] [place] [address] Oct, [facility] [place] [facility] [address] [id number] [place] [address] Oct, [facility] [place] [facility] [address] [id number] [place] [address] Oct, [facility] [place] [facility] [address] [id number] [place] [address] Oct, [facility] [place] [facility] [address] [id number] [place] [address] Oct, [facility] [place] [facility] [address] [id number] [place] [address] Oct, [facility] [place] [facility] [address] [id number] [place] [address] Sep, [facility] [place] [facility] [address] [id number] [place] [address] Sep, [facility] [place] [facility] [address] [id number] [place] [address] Sep, [facility] [place] [facility] [address] [id number] [place] [address] Sep, [facility] [place] [facility] [address] [id number] [place] [address] Aug, [facility] [place] [facility] [address] [id number] [place] [address] Aug, [facility] [place] [facility] [address] [id number] [place] [address] Aug, [facility] [place] [facility] [address] [id number] [place] [address] Aug, [facility] [place] [facility] [address] [id number] [place] [address] Aug, [facility] [place] [facility] [address] [id number] [place] [address] Aug, [facility] [place] [facility] [address] [id number] [place] [address] Aug, [facility] [place] [facility] [address] [id number] [place] [address] Aug, [facility] [place] [facility] [address] [id number] [place] [address] Aug, [facility] [place] [facility] [address] [id number] [place] [address] 02 Oct, 2013 [facility] [place] [facility] [address] [id number] [place] [address] 29 Sep, 2013 [facility] [place] [facility] [address] [id number] [place] [address] 29 Sep, 2013 [facility] [place] [facility] [address] [id number] [place] [address] 29 Sep, 2013 [facility] [place] [facility] [address] [facility] [id number] [place] [address] 29 Sep, 2013 [facility] [place] [facility] [address] [id number] [place] [address] 22 Sep, 2013 [facility] [place] [facility] [address] [id number] [place] [address] 22 Sep, 2013 [facility] [place] [facility] [address] [id number] [place] [address] 19 Sep, 2013 [facility] [place] [facility] [address] [id number] [place] [address] 19 Sep, 2013 [facility] [place] [facility] [address] [id number] [place] [address] 11 Sep, 2013 [facility] [place] [facility] [address] [id number] [place] [address] 11 Sep, 2013 [facility] [place] [facility] [address] [id number] [place] [address] 10 Sep, 2013 [facility] [place] [facility] [address] [id number] [place] [address] 10 Sep, 2013 [facility] [place] [facility] [address] [id number] [place] [address] 08 Sep, 2013 [facility] [place] [facility] [address] [id number] [place] [address] 08 Sep, 2013 [facility] [place] [facility] [address] [id number] [place] [address] 03 Sep, 2013 [facility] [place] [facility] [address] [id number] [place] [address] 03 Sep, 2013 [facility] [place] [facility] [address] [id number] [place] [address] Jul, 2013 [facility] [place] [facility] [address] [id number] [place] [address] Jul, [facility] [place] [facility] [address] [facility] [id number] [facility] [place] [address] Jun, [facility] [place] [facility] [address] [id number] [place] [address] Jun, [facility] [place] [facility] [address] [id number] [place] [address] Jun, [facility] [place] [facility] [address] [id number] [place] [address] Jun, [facility] [place] [facility] [address] [facility] [id number] [facility] [place] [address] Jun, [facility] [place] [facility] [address] [id number] [facility] [place] [address] Jun, [facility] [place] [facility] [address] [facility] [id number] [place] [address] Jun, [facility] [place] [facility] [address] [id number] [facility] [place] [address] Jun, [facility] [place] [facility] [address] [facility] [id number] [facility] [place] [address] Jun, [facility] [place] [facility] [address] [id number] [facility] [place] [address] Jun, [facility] [place] [facility] [address] [id number] [facility] [place] [address] Jun, [facility] [place] [facility] [address] [id number] [facility] [place] [address] Jun, [facility] [place] [facility] [address] [facility] [id number] [place] [address] Jun, [facility] [place] [facility] [address] [id number] [facility] [place] [address] Jun, [facility] [place] [facility] [address] [id number] [place] [address] Jun, [facility] [place] [facility] [address] [facility] [id number] [facility] [place] [address] May, [facility] [place] [facility] [address] [facility] [id number] [place] [address] May, [facility] [place] [facility] [address] [id number] [place] [address] May, [facility] [place] [facility] [address] [id number] [place] [address] May, [facility] [place] [facility] [address] [facility] [id number] [place] [address] May, [facility] [place] [facility] [address] [id number] [place] [address] May, [facility] [place] [facility] [address] [id number] [place] [address] May, [facility] [place] [facility] [address] [id number] [place] [address] May, [facility] [place] [facility] [address] [id number] [place] [address] Apr, [facility] [place] [facility] [address] [id number] [place] [address] Apr, [facility] [place] [facility] [address] [id number] [place] [address] Apr, [facility] [place] [facility] [address] [id number] [place] [address] Apr, [facility] [place] [facility] [address] [facility] [id number] [place] [address] Apr, [facility] [place] [facility] [address] [id number] [place] [address] Apr, [facility] [place] [facility] [address] [id number] [place] [address] Apr, [facility] [place] [facility] [address] [id number] [place] [address] Apr, [facility] [place] [facility] [address] [facility] [id number] [place] [address] Apr, [facility] [place] [facility] [address] [id number] [place] [address] Apr, [facility] [place] [facility] [address] [id number] [place] [address] Apr, [facility] [place] [facility] [address] [id number] [place] [address] Apr, [facility] [place] [facility] [address] [facility] [id number] [place] [address] Apr, [facility] [place] [facility] [address] [id number] [place] [address] Apr, [facility] [place] [facility] [address] [id number] [place] [address] Apr, [facility] [place] [facility] [address] [id number] [place] [address] Apr, [facility] [place] [facility] [address] [id number] [place] [address] Apr, [facility] [place] [facility] [address] [id number] [place] [address] Apr, [facility] [place] [facility] [address] [id number] [place] [address] March, [facility] [place] [facility] [address] [id number] [place] [address] March, [facility] [place] [facility] [address] [id number] [place] [address] March, [facility] [place] [facility] [address] [id number] [place] [address] March, [facility] [place] [facility] [address] [id number] [place] [address] March, [facility] [place] [facility] [address] [id number] [place] [address] March, [facility] [place] [facility] [address] [id number] [place] [address] March, [facility] [place] [facility] [address] [id number] [facility] [place] [address] March, [facility] [place] [facility] [address] [facility] [id number] [place] [address] March, [facility] [place] [facility] [address] [id number] [facility] [place] [address] Feb, [facility] [place] [facility] [address] [id number] [place] [address] Feb, [facility] [place] [facility] [address] [facility] [id number] [place] [address] Feb, [facility] [place] [facility] [address] [id number] [facility] [place] [address] Feb, [facility] [place] [facility] [address] [id number] [facility] [place] [address] Feb, [facility] [place] [facility] [address] [id number] [facility] [place] [address] Feb, [facility] [place] [facility] [address] [id number] [facility] [place] [address] Feb, [facility] [place] [facility] [address] [id number] [facility] [place] [address] Feb, [facility] [place] [facility] [address] [id number] [place] [address] Feb, [facility] [place] [facility] [address] [id number] [place] [address] Feb, [facility] [place] [facility] [address] [id number] [facility] [place] [address] Feb, [facility] [place] [facility] [address] [id number] [facility] [place] [address] Feb, [facility] [place] [facility] [address] [id number] [place] [address] Feb, [facility] [place] [facility] [address] [id number] [facility] [place] [address] Jan, [facility] [place] [facility] [address] [id number] [facility] [place] [address] Jan, [facility] [place] [facility] [address] [facility] [id number] [facility] [place] [address] Jan, [facility] [place] [facility] [address] [facility] [id number] [facility] [place] [address] Jan, [facility] [place] [facility] [address] [id number] [facility] [place] [address] Jan, [facility] [place] [facility] [address] [facility] [id number] [facility] [place] [address] Jan, [facility] [place] [facility] [address] [facility] [id number] [facility] [place] [address] Jan, [facility] [place] [facility] [address] [id number] [place] [address] Jan, [facility] [place] [facility] [address] [id number] [place] [address] Dec, [facility] [place] [facility] [address] [id number] [place] [address] Dec, [facility] [place] [facility] [address] [id number] [facility] [place] [address] Dec, [facility] [place] [facility] [address] [id number] [place] [address] Dec, [facility] [place] [facility] [address] [id number] [place] [address] Dec, [facility] [place] [facility] [address] [id number] [place] [address] Dec, [facility] [place] [facility] [address] [facility] [id number] [place] [address] Dec, [facility] [place] [facility] [address] [id number] [place] [address] Dec, [facility] [place] [facility] [address] [id number] [place] [address] Dec, [facility] [place] [facility] [address] [id number] [place] [address] Dec, [facility] [place] [facility] [address] [id number] [place] [address] Nov, [facility] [place] [facility] [address] [id number] [place] [address] Nov, [facility] [place] [facility] [address] [id number] [place] [address] Nov, [facility] [place] [facility] [address] [id number] [place] [address] Nov, [facility] [place] [facility] [address] [id number] [place] [address] Nov, [facility] [place] [facility] [address] [id number] [place] [address] Nov, [facility] [place] [facility] [address] [id number] [place] [address] Nov, [facility] [place] [facility] [address] [id number] [place] [address] Nov, [facility] [place] [facility] [address] [id number] [place] [address] Nov, [facility] [place] [facility] [address] [id number] [place] [address] Nov, [facility] [place] [facility] [address] [id number] [place] [address] Oct, [facility] [place] [facility] [address] [id number] [place] [address] Oct, [facility] [place] [facility] [address] [id number] [place] [address] 18 Oct, 2013 [facility] [place] [facility] [address] [id number] [place] [address] 18 Oct, 2013 [facility] [place] [facility] [address] [id number] [place] [address] Oct, [facility] [place] [facility] [address] [id number] [place] [address] Oct, [facility] [place] [facility] [address] [id number] [place] [address] 16 Oct, 2012 [facility] [place] [facility] [address] [id number] [place] [address] 16 Oct, 2013 [facility] [place] [facility] [address] [id number] [place] [address] Oct, [facility] [place] [facility] [address] [id number] [place] [address] Oct, [facility] [place] [facility] [address] [id number] [place] [address] Oct, [facility] [place] [facility] [address] [id number] [place] [address] Oct, [facility] [place] [facility] [address] [id number] [place] [address] Oct, [facility] [place] [facility] [address] [id number] [place] [address] Oct, [facility] [place] [facility] [address] [id number] [place] [address] Sep, [facility] [place] [facility] [address] [id number] [place] [address] Sep, [facility] [place] [facility] [address] [id number] [place] [address] Sep, [facility] [place] [facility] [address] [id number] [place] [address] 18 Sep, 2013 [facility] [place] [facility] [address] [id number] [place] [address] Sep, [facility] [place] [facility] [address] [id number] [place] [address] Sep, [facility] [place] [facility] [address] [id number] [place] [address] 31 Aug, 2013 [facility] [place] [facility] [address] [id number] [place] [address] 31 Aug, 2013 [facility] [place] [facility] [address] [id number] [place] [address] 17 Aug, 2013 [facility] [place] [facility] [address] [id number] [place] [address] 17 Aug, 2012 [facility] [place] [facility] [address] [id number] [place] [address] 10 Aug, 2012 [facility] [place] [facility] [address] [id number] [place] [address] 10 Aug, 2012 [facility] [place] [facility] [address] [id number] [place] [address] 07 Aug, 2012 [facility] [place] [facility] [address] [id number] [place] [address] 02 Aug, 2012 [facility] [place] [facility] [address] [id number] [place] [address] 02 Aug, 2012 [facility] [place] [facility] [address] [id number] [place] [address] 25 Sep, 2012 [facility] [place] [facility] [address] [id number] [place] [address] 23 Sep, 2012 [facility] [place] [facility] [address] [id number] [place] [address] 21 Sep, 2012 [facility] [place] [facility] [address] [id number] [place] [address] 20 Sep, 2012 [facility] [place] [facility] [address] [id number] [place] [address] 18 Sep, 2012 [facility] [place] [facility] [address] [id number] [place] [address] 17 Sep, 2012 [facility] [place] [facility] [address] [id number] [place] [address] 16 Sep, 2012 [facility] [place] [facility] [address] [id number] [place] [address] 11 Sep, 2012 [facility] [place] [facility] [address] [id number] [place] [address] 09 Sep, 2012 [facility] [place] [facility] [address] [id number] [place] [address] 09 Sep, 2012 [facility] [place] [facility] [address] [id number] [place] [address] 06 Sep, 2013 [facility] [place] [facility] [address] [id number] [facility] [place] [address] Jul, [facility] [place] [facility] [address] [id number] [place] [address] Jun, [facility] [place] [facility] [address] [facility] [id number] [facility] [place] [address] Jun, [facility] [place] [facility] [address] [id number] [place] [address] Jun, [facility] [place] [facility] [address] [id number] [place] [address] Jun, [facility] [place] [facility] [address] [id number] [facility] [place] [address] Jun, [facility] [place] [facility] [address] [facility] [id number] [facility] [place] [address] Jun, [facility] [place] [facility] [address] [id number] [facility] [place] [address] Jun, [facility] [place] [facility] [address] [facility] [id number] [facility] [place] [address] Jun, [facility] [place] [facility] [address] [id number] [facility] [place] [address] Jun, [facility] [place] [facility] [address] [id number] [facility] [place] [address] May, [facility] [place] [facility] [address] [id number] [place] [address] May, [facility] [place] [facility] [address] [facility] [id number] [facility] [place] [address] May, [facility] [place] [facility] [address] [id number] [facility] [place] [address] May, [facility] [place] [facility] [address] [facility] [id number] [facility] [place] [address] May, [facility] [place] [facility] [address] [id number] [facility] [place] [address] May, [facility] [place] [facility] [address] [id number] [place] [address] May, [facility] [place] [facility] [address] [id number] [place] [address] March, [facility] [place] [facility] [address] [id number] [place] [address] March, [facility] [place] [facility] [address] [id number] [place] [address] March, [facility] [place] [facility] [address] [id number] [place] [address] Dec, [facility] [place] [facility] [address] [id number] [place] [address] Nov, [facility] [place] [facility] [address] [id number] [place] [address] Aug, [facility] [place] [facility] [address] [id number] [place] [address] Aug, [facility] [place] [facility] [address] [id number] [place] [address] Jun, [facility] [place] [facility] [address] [id number] [place] [address] Jun, [facility] [place] [facility] [address] [id number] [place] [address] Jun, [facility] [place] [facility] [address] [id number] [place] [address] Jun, [facility] [place] [facility] [address] [id number] [place] [address] May, [facility] [place] [facility] [address] [id number] [place] [address] May, [facility] [place] [facility] [address] [id number] [place] [address] May, [facility] [place] [facility] [address] [id number] [place] [address] May, [facility] [place] [facility] [address] [id number] [place] [address] May, [facility] [place] [facility] [address] [id number] [place] [address] May, [facility] [place] [facility] [address] [id number] [place] [address] May, [facility] [place] [facility] [address] [id number] [place] [address] Apr, [facility] [place] [facility] [address] [id number] [place] [address] Apr, [facility] [place] [facility] [address] [id number] [place] [address] Apr, [facility] [place] [facility] [address] [id number] [place] [address] Apr, [facility] [place] [facility] [address] [id number] [place] [address] March, [facility] [place] [facility] [address] [id number] [place] [address] March, [facility] [place] [facility] [address] [id number] [place] [address] March, [facility] [place] [facility] [address] [id number] [place] [address] March, [facility] [place] [facility] [address] [id number] [place] [address] March, [facility] [place] [facility] [address] [id number] [place] [address] March, [facility] [place] [facility] [address] [id number] [place] [address] March, [facility] [place] [facility] [address] [id number] [place] [address] March, [facility] [place] [facility] [address] [id number] [place] [address] March, [facility] [place] [facility] [address] [id number] [place] [address] Feb, [facility] [place] [facility] [address] [id number] [place] [address] Feb, [facility] [address] [id number] [place] [address] 28 Jan, 2012 [facility] [place] [facility] [address] [id number] [place] [address] 27 Jan, 2012 [facility] [place] [facility] [address] [id number] [place] [address] 16 Jan, 2012 [facility] [place] [facility] [address] [id number] [place] [address] 05 Jan, 2012 [facility] [place] [facility] [address] [id number] [place] [address] 20 Dec, 2011 [facility] [place] [facility] [address] [id number] [place] [address] 16 Dec, 2011 [facility] [address] [id number] [place] [address] 15 Dec, 2011 [facility] [address] [id number] [place] [address] Nov, [facility] [address] [id number] [place] [address] Oct, [facility] [address] [id number] [place] [address] 15 Oct, 2011 [facility] [address] [id number] [place] [address] 15 Oct, 2011 [facility] [address] [id number] [place] [address] 14 Oct, 2011 [facility] [address] [id number] [place] [address] 14 Oct, 2011 [facility] [address] [id number] [place] [address] Oct, [facility] [address] [id number] [place] [address] 09 Oct, 2011 [facility] [address] [id number] [place] [address] Oct, [facility] [id number] [place] [address] 22 Sep, 2011 [facility] [id number] [place] [address] Sep, [facility] [id number] [place] [address] 14 Sep, 2011 [facility] [id number] [place] [address] Sep, [facility] [address] [address] Sep, [facility] [id number] [place] [address] Sep, [facility] [address] [address] Sep, [facility] [id number] [place] [address] Sep, [facility] [address] [address] Sep, [facility] [id number] [place] [address] Aug, [facility] [address] [address] Jul, [facility] [address] [address] Oct, [facility] [id number] [place] [address] Oct, [facility] [id number] [place] [address] Oct, IMMUNIZATIONS No Known Immunizations SOCIAL HISTORY [...] History Diabetic multiple hospitalizations Hospitalization History DKA 11/20-10/19
--- OUTSIDE RECORDS SUMMARY | 2020-03-19 06:05 | XMS REPORT ---
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 79134373 Problem Chronic kidney disease, unspecified N18.9 Active 735873607 Problem Anemia, unspecified D64.9 Active 905131675 Problem Irritable bowel K58.9 Active 1074 3008 Problem Irritable bowel syndrome with diarrhea K58.0 Active 595517788 Problem Claudication I73.9 Active 6121975 6 Problem Intractable migraine without aura and with status migr ainosus G43.011 Active 532918307 Problem Peritoneal dialysis status Z99.2 Act moody 926787214 Problem Migraine without aura and without status migrain osus, not intractable G43.009 Active 283418323 Problem Other insomnia G47.09 Active 69241 2000 Problem Dysthymia F34.1 Active 62395315 Problem Chronic kidney disease, stage 4 (severe) N18.4 Active 181908365 Problem Migraine with aura and without status migrainosu s, not intractable G43.109 Active 6497941 Problem Autonomic neuropathy G90.9 Active 046890119 Problem Type 1 diabetes mellitus with complications E10.8 Active 184106355 Problem Menorrhagia with regular cycle N92.0 Active 537809327 Problem Other chronic pain G89.29 Active 8 3510042 Problem Lymphedema I89.0 Active 537468380 Problem Essential hypertension I10 Active 09703179 Problem Moderate episode of recurrent major depressive disorder F33.1 Active 184442690 Problem Type 1 diabetes mellitus without complications E10 .9 Active 449415347 Problem Primary insomnia F51.01 Active 397 2004 Problem Migraine G43.909 Active 91647751 Problem Low back pain M54.5 Active 044966 009 Problem Diastolic dysfunction I51.89 Active 0986932 Problem ESRF (end stage renal failure) N18.6 Active 99537809 Problem Restless legs G25.81 Active 912807 08 Problem Hyperthyroidism E05.90 Active 3448 6009 ALLERGIES No Information ENCOUNTERS Encounter Location Date Diagnosis [place] [address] [address] 16 Jan, 2020 [place] [address] [address] Oct, Restless legs G25.81 [place] [address] [address] 16 Oct, 2019 Encounter for Medicare annual wellness e xam Z00.00 ; 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 ; Migraine without aura and without status migrainosus, not intractable G43.009 ; Chronic kidney disease, stage 4 (severe) N18.4 ; Claudication I73.9 ; Peritoneal dialysis status Z99.2 ; Diastolic dysfunction I51.89 ; Primary insomnia F51.01 and Burn T30.0 [place] [address] [address] Sep, Moderate episode of recurrent major depr essive disorder F33.1 and Primary insomnia F51.01 [place] [address] [address] Aug, Hyperthyroidism E05.90 [place] [address] [address] May, Restless legs G25.81 [place] [address] [address] May, [place] [address] [address] May, [place] [address] [address] May, Type 1 diabetes mellitus with hypoglycem ia without coma E10.649 ; ESRF (end stage renal failure) N18.6 ; Leg cramps R25.2 ; Restless legs G25.81 and Low back pain M54.5 [facility] [address] [address] Apr, Low back pain M54.5 [facility] [address] [address] 07 Apr, 2019 [facility] [address] [address] March, Low back pain M54.5 [facility] [address] [address] March, [facility] [address] [address] Feb, Low back pain M54.5 [facility] [address] [address] Jan, Low back pain M54.5 [facility] [address] [address] Jan, [facility] [address] [address] Jan, [facility] [address] [address] Jan, [facility] [address] [address] Dec, Type 1 diabetes mellitus with hypoglycem ia without coma E10.649 and Low back pain M54.5 [facility] [address] [address] Dec, Low back pain M54.5 [facility] [address] [address] 13 Dec, 2018 Diastolic dysfunction I51.89 ; Essential hypertension I10 and Chronic kidney disease, stage 4 (severe) N18.4 [facility] [address] [address] Dec, RUQ abdominal pain R10.11 ; Type 1 diabe camryn mellitus without complications E10.9 ; Therapeutic drug monitoring Z51.81 ; Migraine with aura and without status migrainosus, not intractable G43.109 and Intractable migraine without aura and with status migrainosus G43.011 [place] [address] [address] Nov, Low back pain M54.5 [place] [address] [address] Nov, [place] [address] [address] Nov, Intractable migraine without aura and wi th status migrainosus G43.011 ; Lymphedema I89.0 ; Pain in right shoulder M25.511 ; Other chronic pain G89.29 ; Irritable bowel syndrome with diarrhea K58.0 ; Type 1 diabetes mellitus without complications E10.9 and Essential hypertension I10 [place] [address] [address] Oct, Low back pain M54.5 [place] [address] [address] Oct, [place] [address] [address] Oct, Orthostatic hypotension I95.1 ; Shortnes s of breath R06.02 ; Leg swelling M79.89 ; Type 1 diabetes mellitus without complications E10.9 and Claudication I73.9 [place] [address] [address] Sep, Low back pain M54.5 [place] [address] [address] Sep, Low back pain M54.5 [place] [address] [address] Aug, [place] [address] [address] Aug, Migraine without aura and without status migrainosus, not intractable G43.009 [facility] [address] [address] Aug, Low back pain M54.5 [facility] [address] [facility] [id number] [place] [address] Aug, Acute rhinosinusitis J01.90 and Sore throat J02.9 [facility] [address] [address] Jul, Low back pain M54.5 [facility] [address] [address] Jul, Migraine without aura and without status migrainosus, not intractable G43.009 [place] [address] [address] Jun, Low back pain M54.5 [facility] [address] [address] Jun, [facility] [address] [address] Jun, Orthostatic hypotension I95.1 ; Shortnes s of breath R06.02 ; Type 1 diabetes mellitus without complications E10.9 and Leg swelling M79.89 [facility] [address] [address] Jun, Low back pain M54.5 [facility] [address] [address] Jun, [facility] [address] [address] May, Migraine without aura and without status migrainosus, not intractable G43.009 [facility] [address] [address] May, Migraine without aura and without status migrainosus, not intractable G43.009 ; Restless legs syndrome G25.81 ; Leg cramps R25.2 ; Chronic kidney disease, unspecified N18.9 ; Postural hypotension I95.1 ; Diarrhea, unspecified type R19.7 and Cough R05 [facility] [address] [address] May, [facility] [address] [address] May, [facility] [address] [address] May, Orthostatic hypotension I95.1 ; Shortnes s of breath R06.02 ; Type 1 diabetes mellitus with complications E10.8 and Leg swelling M79.89 [facility] [address] [address] May, [facility] [address] [address] May, Low back pain M54.5 [facility] [address] [address] Apr, Type 1 diabetes mellitus with hyperglyce sebastian E10.65 [facility] [address] [address] Apr, Low back pain M54.5 [facility] [address] [address] Apr, [facility] [address] [address] Apr, [facility] [address] [address] March, [facility] [address] [address] March, Low back pain M54.5 [facility] [address] [address] March, [facility] [address] [address] Feb, [facility] [address] [address] Feb, Low back pain M54.5 [place] [address] [address] Jan, Restless legs syndrome G25.81 [place] [address] [address] Jan, Low back pain M54.5 [place] [address] [address] Jan, [place] [address] [address] Jan, Type 1 diabetes mellitus without complic ations E10.9 ; Low back pain M54.5 ; Cough R05 ; Diarrhea, unspecified type R19.7 ; Migraine without aura and without status migrainosus, not intractable G43.009 and Uses control Z30.9 [place] [address] [address] Dec, Low back pain M54.5 [place] [address] [address] Dec, [place] [address] [address] Nov, Well woman exam Z01.419 ; Menorrhagia wi th regular cycle N92.0 ; Vaginal dryness N89.8 and Migraine with aura and without status migrainosus, not intractable G43.109 [place] [address] [address] Nov, [place] [address] [address] Nov, Low back pain M54.5 [place] [address] [address] Oct, Low back pain M54.5 [place] [address] [address] Oct, Migraine without aura and without status migrainosus, not intractable G43.009 [facility] [address] [address] Sep, Low back pain M54.5 [facility] [address] [address] Sep, [facility] [address] [address] Sep, Migraine without aura and without status migrainosus, not intractable G43.009 [facility] [address] [address] Sep, Type 1 diabetes mellitus with hypoglycem ia without coma E10.649 ; Anemia D64.9 ; Migraine without aura and without status migrainosus, not intractable G43.009 ; Chronic kidney disease, unspecified N18.9 ; Autonomic neuropathy G90.9 and Postural hypotension I95.1 [facility] [address] [address] Sep, Low back pain M54.5 [facility] [address] [address] Aug, Low back pain M54.5 [facility] [address] [address] 14 Jul, 2017 [facility] [address] [address] Jul, Low back pain M54.5 [facility] [address] [address] Jun, [facility] [address] [address] Jun, Low back pain M54.5 [facility] [address] [address] Jun, Migraine without aura and without status migrainosus, not intractable G43.009 [facility] [address] [address] Jun, Type 1 diabetes mellitus with hyperglyce sebastian E10.65 ; Dysthymia F34.1 and Migraine without aura and without status migrainosus, not intractable G43.009 [facility] [address] [address] Jun, [facility] [address] [address] May, Type 1 diabetes mellitus with hyperglyce sebastian E10.65 [facility] [address] [address] May, Low back pain M54.5 [place] [address] [address] May, Type 1 diabetes mellitus with hyperglyce sebastian E10.65 [place] [address] [address] Apr, [place] [address] [address] Apr, Chronic kidney disease, stage 4 (severe) N18.4 [place] [address] [address] Apr, Low back pain M54.5 [place] [address] [address] March, [place] [address] [address] March, Low back pain M54.5 [place] [address] [address] Feb, [place] [address] [address] Feb, [place] [address] [address] Feb, Low back pain M54.5 [place] [address] [address] Feb, Low back pain M54.5 [facility] [address] [address] Feb, Migraine without aura and without status migrainosus, not intractable G43.009 [facility] [address] [address] Feb, [place] [address] [address] Jan, Low back pain M54.5 [place] [address] [address] Jan, Type 1 diabetes mellitus without complic ations E10.9 ; Anemia D64.9 ; Chronic kidney disease, unspecified N18.9 ; Migraine without aura and without status migrainosus, not intractable G43.009 and Other insomnia G47.09 [place] [address] [address] Jan, [place] [address] [address] Dec, Low back pain M54.5 [place] [address] [address] Dec, [place] [address] [address] Dec, [place] [address] [address] 08 Dec, 2016 Shortness of breath R06.02 ; Type 1 diab etes mellitus without complications E10.9 and Leg swelling M79.89 [place] [address] [address] Nov, Low back pain M54.5 [place] [address] [address] Nov, Viral syndrome B34.9 [place] [address] [address] Oct, Low back pain M54.5 [facility] [address] [address] 15 Oct, 2016 [facility] [address] [address] Oct, Low back pain M54.5 [facility] [address] [address] Sep, [facility] [address] [address] Sep, Fatigue, unspecified type R53.83 ; Type 1 diabetes mellitus without complications E10.9 and Anemia D64.9 [place] [address] [address] Sep, Low back pain M54.5 [place] [address] [address] Sep, Type 1 diabetes mellitus with hyperglyce sebastian E10.65 [place] [address] [address] Aug, Type 1 diabetes mellitus without complic ations E10.9 [place] [address] [address] Aug, [place] [address] [address] Aug, [place] [address] [address] Jul, [facility] [address] [address] 14 Jul, 2016 Low back pain M54.5 [facility] [address] [address] 12 Jul, 2016 Hyperkalemia, diminished renal excretion E87.5 [facility] [address] [address] 09 Jul, 2016 Hyperkalemia, diminished renal excretion E87.5 [facility] [address] [address] Jun, [facility] [address] [address] Jun, Low back pain M54.5 [facility] [address] [address] Jun, Anemia D64.9 ; Autonomic neuropathy G90. 9 and Postural hypotension I95.1 [facility] [address] [address] Jun, [facility] [address] [address] May, Type 1 diabetes mellitus with complicati ons E10.8 and Anemia D64.9 [facility] [address] [address] May, Low back pain M54.5 [facility] [address] [address] Apr, [facility] [address] [address] Apr, Low back pain M54.5 [facility] [address] [address] Apr, [facility] [address] [address] Apr, [facility] [address] [address] March, Low back pain M54.5 and Other chronic pa in G89.29 [facility] [address] [address] March, Type 1 diabetes mellitus without complic ations E10.9 [facility] [address] [address] March, [facility] [address] [address] March, [facility] [address] [address] Feb, [facility] [address] [address] Feb, Type 1 diabetes mellitus without complic ations E10.9 [place] [address] [address] Feb, Trochanteric bursitis, right hip M70.61 [place] [address] [address] Jan, [place] [address] [address] Jan, [place] [address] [address] Dec, Type 1 diabetes mellitus with complicati ons E10.8 [place] [address] [address] Dec, [place] [address] [address] Dec, Anemia D64.9 ; Autonomic neuropathy G90. 9 and Postural hypotension I95.1 [place] [address] [address] Dec, [place] [address] [address] Nov, Sore throat J02.9 [place] [address] [address] Nov, Type 1 diabetes mellitus with complicati ons E10.8 [place] [address] [address] Nov, Type 1 diabetes mellitus with diabetic n ephropathy E10.21 ; Proteinuria, unspecified R80.9 and Chronic kidney disease, unspecified N18.9 [place] [address] [address] Nov, [place] [address] [place] [id number] [place] [address] Nov, Trochanteric bursitis, right hip M70.61 [facility] [address] [place] [id number] [place] [address] Nov, [facility] [address] [place] [id number] [place] [address] Oct, [facility] [address] [address] Oct, [facility] [address] [place] [id number] [place] [address] Oct, [facility] [address] [address] Sep, [facility] [address] [place] [id number] [place] [address] Sep, [facility] [address] [address] Sep, Type 2 diabetes mellitus with complicati on E11.8 and Right hip pain M25.551 [facility] [address] [address] Sep, [facility] [address] [address] Aug, [facility] [address] [place] [id number] [place] [address] Aug, [facility] [address] [address] Aug, [facility] [address] [place] [id number] [place] [address] Aug, Type 1 diabetes mellitus without complic ations E10.9 [facility] [address] [place] [id number] [place] [address] 16 Jul, 2015 [facility] [address] [address] 15 Jul, 2015 [facility] [address] [place] [address] Jul, [facility] [address] [address] Jun, [facility] [address] [address] Jun, [facility] [address] [address] Jun, [facility] [address] [address] Jun, [facility] [address] [address] Jun, [facility] [address] [address] Jun, Diabetes mellitus without mention of com plication, type I [juvenile type], not stated as uncontrolled 250.01 [facility] [address] [address] May, [facility] [address] [address] May, [facility] [address] [address] May, [facility] [address] [address] May, Autonomic neuropathy 337.9 ; Postural hy potension 458.0 and Anemia 285.9 [facility] [address] [address] May, [facility] [address] [address] Apr, [facility] [address] [address] Apr, [facility] [address] [address] Apr, [facility] [address] [address] Apr, [facility] [place] [facility] [address] [facility] [id number] [facility] [place] [address] Apr, [facility] [place] [facility] [address] [facility] [id number] [facility] [place] [address] March, [facility] [place] [facility] [address] [id number] [place] [address] March, [facility] [place] [facility] [address] [id number] [facility] [place] [address] March, [facility] [place] [facility] [address] [facility] [id number] [facility] [place] [address] March, [facility] [place] [facility] [address] [id number] [place] [address] March, [facility] [place] [facility] [address] [id number] [place] [address] Feb, [facility] [place] [facility] [address] [id number] [place] [address] Feb, [facility] [place] [facility] [address] [id number] [place] [address] Feb, [facility] [place] [facility] [address] [id number] [place] [address] 30 Jan, 2015 [facility] [place] [facility] [address] [id number] [place] [address] Jan, [facility] [place] [facility] [address] [id number] [place] [address] 24 Jan, 2015 [facility] [place] [facility] [address] [id number] [place] [address] Jan, [facility] [place] [facility] [address] [facility] [id number] [place] [address] Jan, [facility] [place] [facility] [address] [id number] [place] [address] Jan, [facility] [place] [facility] [address] [id number] [place] [address] Jan, [facility] [place] [facility] [address] [id number] [place] [address] Jan, [facility] [place] [facility] [address] [id number] [place] [address] Jan, [facility] [place] [facility] [address] [id number] [place] [address] Jan, [facility] [place] [facility] [address] [id number] [place] [address] Jan, [facility] [place] [facility] [address] [id number] [place] [address] Jan, [facility] [place] [facility] [address] [id number] [place] [address] Jan, [facility] [place] [facility] [address] [id number] [place] [address] Dec, [facility] [place] [facility] [address] [id number] [place] [address] Dec, [facility] [place] [facility] [address] [id number] [place] [address] Dec, [facility] [place] [facility] [address] [id number] [place] [address] Dec, [facility] [place] [facility] [address] [id number] [place] [address] Dec, [facility] [place] [facility] [address] [id number] [place] [address] Dec, [facility] [place] [facility] [address] [id number] [place] [address] Dec, [facility] [place] [facility] [address] [id number] [place] [address] Dec, [facility] [place] [facility] [address] [id number] [place] [address] Nov, [facility] [place] [facility] [address] [id number] [place] [address] Nov, [facility] [place] [facility] [address] [id number] [place] [address] Nov, [facility] [place] [facility] [address] [id number] [place] [address] Nov, [facility] [place] [facility] [address] [id number] [place] [address] Nov, [facility] [place] [facility] [address] [id number] [place] [address] Nov, [facility] [address] [id number] [place] [address] Nov, [facility] [address] [id number] [place] [address] Nov, [facility] [address] [id number] [place] [address] Nov, [facility] [address] [id number] [place] [address] Oct, [facility] [address] [id number] [place] [address] Oct, [facility] [address] [id number] [place] [address] Oct, [facility] [address] [id number] [place] [address] Oct, [facility] [address] [id number] [place] [address] Oct, [facility] [address] [id number] [place] [address] Oct, [facility] [address] [id number] [place] [address] Oct, [facility] [address] [id number] [place] [address] Oct, [facility] [address] [id number] [place] [address] Oct, [facility] [address] [id number] [place] [address] Oct, [facility] [address] [id number] [place] [address] Oct, [facility] [address] [id number] [place] [address] Oct, [facility] [address] [id number] [place] [address] Oct, [facility] [address] [id number] [place] [address] Oct, [facility] [address] [id number] [place] [address] Sep, [facility] [address] [id number] [place] [address] Sep, [facility] [address] [id number] [place] [address] Sep, [facility] [address] [id number] [place] [address] Sep, [facility] [address] [id number] [place] [address] Aug, [facility] [address] [id number] [place] [address] Aug, [facility] [address] [id number] [place] [address] Aug, [facility] [address] [id number] [place] [address] Aug, [facility] [place] [facility] [address] [id number] [place] [address] Aug, [facility] [place] [facility] [address] [id number] [place] [address] Aug, [facility] [place] [facility] [address] [id number] [place] [address] Aug, [facility] [place] [facility] [address] [id number] [place] [address] Aug, [facility] [place] [facility] [address] [id number] [place] [address] Aug, [facility] [place] [facility] [address] [id number] [place] [address] 02 Oct, 2013 [facility] [place] [facility] [address] [id number] [place] [address] 29 Sep, 2013 [facility] [place] [facility] [address] [id number] [place] [address] 29 Sep, 2013 [facility] [place] [facility] [address] [id number] [place] [address] 29 Sep, 2013 [facility] [place] [facility] [address] [facility] [id number] [place] [address] 29 Sep, 2013 [facility] [place] [facility] [address] [id number] [place] [address] 22 Sep, 2013 [facility] [place] [facility] [address] [id number] [place] [address] 22 Sep, 2013 [facility] [place] [facility] [address] [id number] [place] [address] 19 Sep, 2013 [facility] [place] [facility] [address] [id number] [place] [address] 19 Sep, 2013 [facility] [place] [facility] [address] [id number] [place] [address] 11 Sep, 2013 [facility] [place] [facility] [address] [id number] [place] [address] 11 Sep, 2013 [facility] [place] [facility] [address] [id number] [place] [address] 10 Sep, 2013 [facility] [place] [facility] [address] [id number] [place] [address] 10 Sep, 2013 [facility] [place] [facility] [address] [id number] [place] [address] 08 Sep, 2013 [facility] [place] [facility] [address] [id number] [place] [address] 08 Sep, 2013 [facility] [place] [facility] [address] [id number] [place] [address] 03 Sep, 2013 [facility] [place] [facility] [address] [id number] [place] [address] 03 Sep, 2013 [facility] [place] [facility] [address] [id number] [place] [address] Jul, 2013 [facility] [place] [facility] [address] [id number] [place] [address] Jul, [facility] [place] [facility] [address] [facility] [id number] [facility] [place] [address] Jun, [facility] [place] [facility] [address] [id number] [place] [address] Jun, [facility] [place] [facility] [address] [id number] [place] [address] Jun, [facility] [place] [facility] [address] [id number] [place] [address] Jun, [facility] [place] [facility] [address] [facility] [id number] [facility] [place] [address] Jun, [facility] [place] [facility] [address] [id number] [facility] [place] [address] Jun, [facility] [place] [facility] [address] [facility] [id number] [place] [address] Jun, [facility] [place] [facility] [address] [id number] [facility] [place] [address] Jun, [facility] [place] [facility] [address] [facility] [id number] [facility] [place] [address] Jun, [facility] [place] [facility] [address] [id number] [facility] [place] [address] Jun, [facility] [place] [facility] [address] [id number] [facility] [place] [address] Jun, [facility] [place] [facility] [address] [id number] [facility] [place] [address] Jun, [facility] [place] [facility] [address] [facility] [id number] [place] [address] Jun, [facility] [place] [facility] [address] [id number] [facility] [place] [address] Jun, [facility] [place] [facility] [address] [id number] [place] [address] Jun, [facility] [place] [facility] [address] [facility] [id number] [facility] [place] [address] May, [facility] [place] [facility] [address] [facility] [id number] [place] [address] May, [facility] [place] [facility] [address] [id number] [place] [address] May, [facility] [place] [facility] [address] [id number] [place] [address] May, [facility] [place] [facility] [address] [facility] [id number] [place] [address] May, [facility] [place] [facility] [address] [id number] [place] [address] May, [facility] [place] [facility] [address] [id number] [place] [address] May, [facility] [place] [facility] [address] [id number] [place] [address] May, [facility] [place] [facility] [address] [id number] [place] [address] Apr, [facility] [place] [facility] [address] [id number] [place] [address] Apr, [facility] [place] [facility] [address] [id number] [place] [address] Apr, [facility] [place] [facility] [address] [id number] [place] [address] Apr, [facility] [place] [facility] [address] [facility] [id number] [place] [address] Apr, [facility] [place] [facility] [address] [id number] [place] [address] Apr, [facility] [place] [facility] [address] [id number] [place] [address] Apr, [facility] [place] [facility] [address] [id number] [place] [address] Apr, [facility] [place] [facility] [address] [facility] [id number] [place] [address] Apr, [facility] [place] [facility] [address] [id number] [place] [address] Apr, [facility] [place] [facility] [address] [id number] [place] [address] Apr, [facility] [place] [facility] [address] [id number] [place] [address] Apr, [facility] [place] [facility] [address] [facility] [id number] [place] [address] Apr, [facility] [place] [facility] [address] [id number] [place] [address] Apr, [facility] [place] [facility] [address] [id number] [place] [address] Apr, [facility] [place] [facility] [address] [id number] [place] [address] Apr, [facility] [place] [facility] [address] [id number] [place] [address] Apr, [facility] [place] [facility] [address] [id number] [place] [address] Apr, [facility] [place] [facility] [address] [id number] [place] [address] March, [facility] [place] [facility] [address] [id number] [place] [address] March, [facility] [place] [facility] [address] [id number] [place] [address] March, [facility] [place] [facility] [address] [id number] [place] [address] March, [facility] [place] [facility] [address] [id number] [place] [address] March, [facility] [place] [facility] [address] [id number] [place] [address] March, [facility] [place] [facility] [address] [id number] [place] [address] March, [facility] [place] [facility] [address] [id number] [facility] [place] [address] March, [facility] [place] [facility] [address] [facility] [id number] [place] [address] March, [facility] [place] [facility] [address] [id number] [facility] [place] [address] Feb, [facility] [place] [facility] [address] [id number] [place] [address] Feb, [facility] [place] [facility] [address] [facility] [id number] [place] [address] Feb, [facility] [place] [facility] [address] [id number] [facility] [place] [address] Feb, [facility] [place] [facility] [address] [id number] [facility] [place] [address] Feb, [facility] [place] [facility] [address] [id number] [facility] [place] [address] Feb, [facility] [place] [facility] [address] [id number] [facility] [place] [address] Feb, [facility] [place] [facility] [address] [id number] [facility] [place] [address] Feb, [facility] [place] [facility] [address] [id number] [place] [address] Feb, [facility] [place] [facility] [address] [id number] [place] [address] Feb, [facility] [place] [facility] [address] [id number] [facility] [place] [address] Feb, [facility] [place] [facility] [address] [id number] [facility] [place] [address] Feb, [facility] [place] [facility] [address] [id number] [place] [address] Feb, [facility] [place] [facility] [address] [id number] [facility] [place] [address] Jan, [facility] [place] [facility] [address] [id number] [facility] [place] [address] Jan, [facility] [place] [facility] [address] [facility] [id number] [facility] [place] [address] Jan, [facility] [place] [facility] [address] [facility] [id number] [facility] [place] [address] Jan, [facility] [place] [facility] [address] [id number] [facility] [place] [address] Jan, [facility] [place] [facility] [address] [facility] [id number] [facility] [place] [address] Jan, [facility] [place] [facility] [address] [facility] [id number] [facility] [place] [address] Jan, [facility] [place] [facility] [address] [id number] [place] [address] Jan, [facility] [place] [facility] [address] [id number] [place] [address] Dec, [facility] [place] [facility] [address] [id number] [place] [address] Dec, [facility] [place] [facility] [address] [id number] [facility] [place] [address] Dec, [facility] [place] [facility] [address] [id number] [place] [address] Dec, [facility] [place] [facility] [address] [id number] [place] [address] Dec, [facility] [place] [facility] [address] [id number] [place] [address] Dec, [facility] [place] [facility] [address] [facility] [id number] [place] [address] Dec, [facility] [place] [facility] [address] [id number] [place] [address] Dec, [facility] [place] [facility] [address] [id number] [place] [address] Dec, [facility] [place] [facility] [address] [id number] [place] [address] Dec, [facility] [place] [facility] [address] [id number] [place] [address] Nov, [facility] [place] [facility] [address] [id number] [place] [address] Nov, [facility] [place] [facility] [address] [id number] [place] [address] Nov, [facility] [place] [facility] [address] [id number] [place] [address] Nov, [facility] [place] [facility] [address] [id number] [place] [address] Nov, [facility] [place] [facility] [address] [id number] [place] [address] Nov, [facility] [place] [facility] [address] [id number] [place] [address] Nov, [facility] [place] [facility] [address] [id number] [place] [address] Nov, [facility] [place] [facility] [address] [id number] [place] [address] Nov, [facility] [place] [facility] [address] [id number] [place] [address] Nov, [facility] [place] [facility] [address] [id number] [place] [address] Oct, [facility] [place] [facility] [address] [id number] [place] [address] Oct, [facility] [place] [facility] [address] [id number] [place] [address] 18 Oct, 2013 [facility] [place] [facility] [address] [id number] [place] [address] 18 Oct, 2013 [facility] [place] [facility] [address] [id number] [place] [address] Oct, [facility] [place] [facility] [address] [id number] [place] [address] Oct, [facility] [place] [facility] [address] [id number] [place] [address] 16 Oct, 2012 [facility] [place] [facility] [address] [id number] [place] [address] 16 Oct, 2013 [facility] [place] [facility] [address] [id number] [place] [address] Oct, [facility] [place] [facility] [address] [id number] [place] [address] Oct, [facility] [place] [facility] [address] [id number] [place] [address] Oct, [facility] [place] [facility] [address] [id number] [place] [address] Oct, [facility] [place] [facility] [address] [id number] [place] [address] Oct, [facility] [place] [facility] [address] [id number] [place] [address] Oct, [facility] [place] [facility] [address] [id number] [place] [address] Sep, [facility] [place] [facility] [address] [id number] [place] [address] Sep, [facility] [place] [facility] [id number] [place] [address] Sep, [facility] [place] [facility] [address] [id number] [place] [address] 18 Sep, 2013 [facility] [place] [facility] [id number] [place] [address] Sep, [facility] [place] [facility] [address] [id number] [place] [address] Sep, [facility] [place] [facility] [id number] [place] [address] 31 Aug, 2013 [facility] [place] [facility] [address] [id number] [place] [address] 31 Aug, 2013 [facility] [place] [facility] [address] [id number] [place] [address] 17 Aug, 2013 [facility] [place] [facility] [address] [id number] [place] [address] 17 Aug, 2012 [facility] [place] [facility] [address] [id number] [place] [address] 10 Aug, 2012 [facility] [place] [facility] [address] [id number] [place] [address] 10 Aug, 2012 [facility] [place] [facility] [address] [id number] [place] [address] 07 Aug, 2012 [facility] [place] [facility] [address] [id number] [place] [address] 02 Aug, 2012 [facility] [place] [facility] [address] [id number] [place] [address] 02 Aug, 2012 [facility] [place] [facility] [address] [id number] [place] [address] 25 Sep, 2012 [facility] [place] [facility] [address] [id number] [place] [address] 23 Sep, 2012 [facility] [place] [facility] [address] [id number] [place] [address] 21 Sep, 2012 [facility] [place] [facility] [address] [id number] [place] [address] 20 Sep, 2012 [facility] [place] [facility] [address] [id number] [place] [address] 18 Sep, 2012 [facility] [place] [facility] [address] [id number] [place] [address] 17 Sep, 2012 [facility] [place] [facility] [address] [id number] [place] [address] 16 Sep, 2012 [facility] [place] [facility] [address] [id number] [place] [address] 11 Sep, 2012 [facility] [place] [facility] [address] [id number] [place] [address] 09 Sep, 2012 [facility] [place] [facility] [address] [id number] [place] [address] 09 Sep, 2012 [facility] [place] [facility] [address] [id number] [place] [address] 06 Sep, 2013 [facility] [place] [facility] [address] [id number] [facility] [place] [address] Jul, [facility] [place] [facility] [address] [id number] [place] [address] Jun, [facility] [place] [facility] [address] [facility] [id number] [facility] [place] [address] Jun, [facility] [place] [facility] [address] [id number] [place] [address] Jun, [facility] [place] [facility] [address] [id number] [place] [address] Jun, [facility] [place] [facility] [address] [id number] [facility] [place] [address] Jun, [facility] [place] [facility] [address] [facility] [id number] [facility] [place] [address] Jun, [facility] [place] [facility] [address] [id number] [facility] [place] [address] Jun, [facility] [place] [facility] [address] [facility] [id number] [facility] [place] [address] Jun, [facility] [place] [facility] [address] [id number] [facility] [place] [address] Jun, [facility] [place] [facility] [address] [id number] [facility] [place] [address] May, [facility] [place] [facility] [address] [id number] [place] [address] May, [facility] [place] [facility] [address] [facility] [id number] [facility] [place] [address] May, [facility] [place] [facility] [address] [id number] [facility] [place] [address] May, [facility] [place] [facility] [address] [facility] [id number] [facility] [place] [address] May, [facility] [place] [facility] [address] [id number] [facility] [place] [address] May, [facility] [place] [facility] [address] [id number] [place] [address] May, [facility] [place] [facility] [address] [id number] [place] [address] March, [facility] [place] [facility] [address] [id number] [place] [address] March, [facility] [place] [facility] [address] [id number] [place] [address] March, [facility] [place] [facility] [address] [id number] [place] [address] Dec, [facility] [place] [facility] [address] [id number] [place] [address] Nov, [facility] [place] [facility] [address] [id number] [place] [address] Aug, [facility] [place] [facility] [address] [id number] [place] [address] Aug, [facility] [place] [facility] [address] [id number] [place] [address] Jun, [facility] [place] [facility] [address] [id number] [place] [address] Jun, [facility] [place] [facility] [address] [id number] [place] [address] Jun, [facility] [place] [facility] [address] [id number] [place] [address] Jun, [facility] [place] [facility] [address] [id number] [place] [address] May, [facility] [place] [facility] [address] [id number] [place] [address] May, [facility] [place] [facility] [address] [id number] [place] [address] May, [facility] [place] [facility] [address] [id number] [place] [address] May, [facility] [place] [facility] [address] [id number] [place] [address] May, [facility] [place] [facility] [address] [id number] [place] [address] May, [facility] [address] [id number] [place] [address] May, [facility] [address] [id number] [place] [address] Apr, [facility] [address] [id number] [place] [address] Apr, [facility] [address] [id number] [place] [address] Apr, [facility] [address] [id number] [place] [address] Apr, [facility] [address] [id number] [place] [address] March, [facility] [address] [id number] [place] [address] March, [facility] [address] [id number] [place] [address] March, [facility] [address] [id number] [place] [address] March, [facility] [address] [id number] [place] [address] March, [facility] [address] [id number] [place] [address] March, [facility] [address] [id number] [place] [address] March, [facility] [address] [id number] [place] [address] March, [facility] [address] [id number] [place] [address] March, [facility] [address] [id number] [place] [address] Feb, [facility] [address] [id number] [place] [address] Feb, [facility] [address] [id number] [place] [address] 28 Jan, 2012 [facility] [address] [id number] [place] [address] 27 Jan, 2012 [facility] [address] [id number] [place] [address] 16 Jan, 2012 [facility] [address] [id number] [place] [address] 05 Jan, 2012 [facility] [address] [id number] [place] [address] 20 Dec, 2011 [facility] [address] [id number] [place] [address] 16 Dec, 2011 [facility] [address] [id number] [place] [address] 15 Dec, 2011 [facility] [address] [id number] [place] [address] Nov, [facility] [address] [id number] [place] [address] Oct, [facility] [address] [id number] [place] [address] 15 Oct, 2011 [facility] [address] [id number] [place] [address] 15 Oct, 2011 [facility] [address] [id number] [place] [address] 14 Oct, 2011 [facility] [address] [id number] [place] [address] 14 Oct, 2011 [facility] [address] [id number] [place] [address] Oct, [facility] [address] [id number] [place] [address] 09 Oct, 2011 [facility] [address] [id number] [place] [address] Oct, [facility] [id number] [place] [address] 22 Sep, 2011 [facility] [id number] [place] [address] 17 Sep, 2011 [facility] [id number] [place] [address] 14 Sep, 2011 [facility] [id number] [place] [address] Sep, [facility] [id number] [place] [address] 10 Sep, 2011 [facility] [id number] [place] [address] Sep, [facility] [id number] [place] [address] Sep, [facility] [id number] [place] [address] Sep, [facility] [id number] [place] [address] Sep, [facility] [id number] [place] [address] Aug, [facility] [id number] [place] [address] Jul, [facility] [id number] [place] [address] Oct, [facility] [id number] [place] [address] Oct, [facility] [id number] [place] [address] Oct, IMMUNIZATIONS No Known Immunizations SOCIAL HISTORY Never Assessed REASON FOR VISIT PLAN OF CARE VITAL SIGNS Height 62 in 2014-04-28 Weight 120 lbs 2014-04-28 Heart Rate 104 bpm 2014-04-28 Blood pressure systolic 0 mmHg 2014-04-28 Blood pressure diastolic 0 mmHg 2014-04-28 MEDICATIONS Unknown Medications RESULTS No Results PROCEDURES Procedure Date Ordered Result Body Site MEASURE BLOOD OXYGEN LEVEL April 28, 2014 ELECTROCARDIOGRAM, TRACING April 28, 2014 INSTRUCTIONS MEDICATIONS ADMINISTERED No Known Medications MEDICAL (GENERAL) HISTORY Type Description Date Medical History Diabetic Medical History kidney failure,and pancreatic failure Surgical History Bilat tubal ligation Surgical History Lt cataract surgery 04/2018 Surgical History Rt cataract surgery 05/2018 Surgical History pearateeal tube 05/2019 Hospitalization History Diabetic multiple hospitalizations Hospitalization History DKA 10/14-10/19
--- OUTSIDE RECORDS SUMMARY | 2020-03-19 06:05 | XMS REPORT ---
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 67118373 Problem Chronic kidney disease, unspecified N18.9 Active 776291748 Problem Anemia, unspecified D64.9 Active 778875251 Problem Irritable bowel K58.9 Active 1074 3008 Problem Irritable bowel syndrome with diarrhea K58.0 Active 033053763 Problem Claudication I73.9 Active 0219254 6 Problem Intractable migraine without aura and with status migr ainosus G43.011 Active 808501082 Problem Peritoneal dialysis status Z99.2 Act moody 974947212 Problem Migraine without aura and without status migrain osus, not intractable G43.009 Active 970765802 Problem Other insomnia G47.09 Active 67684 2000 Problem Dysthymia F34.1 Active 07659885 Problem Chronic kidney disease, stage 4 (severe) N18.4 Active 677345717 Problem Migraine with aura and without status migrainosu s, not intractable G43.109 Active 0266973 Problem Autonomic neuropathy G90.9 Active 368863608 Problem Type 1 diabetes mellitus with complications E10.8 Active 214623826 Problem Menorrhagia with regular cycle N92.0 Active 021498108 Problem Other chronic pain G89.29 Active 8 3534335 Problem Lymphedema I89.0 Active 114142925 Problem Essential hypertension I10 Active 64440010 Problem Moderate episode of recurrent major depressive disorder F33.1 Active 283397410 Problem Type 1 diabetes mellitus without complications E10 .9 Active 079849007 Problem Primary insomnia F51.01 Active 397 2004 Problem Migraine G43.909 Active 91842744 Problem Low back pain M54.5 Active 637469 009 Problem Diastolic dysfunction I51.89 Active 2085399 Problem ESRF (end stage renal failure) N18.6 Active 29255129 Problem Restless legs G25.81 Active 360765 08 Problem Hyperthyroidism E05.90 Active 3448 6009 ALLERGIES No Information ENCOUNTERS Encounter Location Date Diagnosis [place] [address] [address] Jan, [place] [address] [address] Oct, Restless legs G25.81 [place] [address] [address] Oct, Encounter for Medicare annual wellness e xam Z00.00 ; 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 ; Migraine without aura and without status migrainosus, not intractable G43.009 ; Chronic kidney disease, stage 4 (severe) N18.4 ; Claudication I73.9 ; Peritoneal dialysis status Z99.2 ; Diastolic dysfunction I51.89 ; Primary insomnia F51.01 and Burn T30.0 [place] [address] [address] Sep, Moderate episode of recurrent major depr essive disorder F33.1 and Primary insomnia F51.01 [place] [address] [address] Aug, Hyperthyroidism E05.90 [place] [address] [address] May, Restless legs G25.81 [place] [address] [address] May, [place] [address] [address] May, [place] [address] [address] May, Type 1 diabetes mellitus with hypoglycem ia without coma E10.649 ; ESRF (end stage renal failure) N18.6 ; Leg cramps R25.2 ; Restless legs G25.81 and Low back pain M54.5 [facility] [address] [address] Apr, Low back pain M54.5 [facility] [address] [address] Apr, [facility] [address] [address] March, Low back pain M54.5 [facility] [address] [address] March, [facility] [address] [address] Feb, Low back pain M54.5 [facility] [address] [address] Jan, Low back pain M54.5 [facility] [address] [address] Jan, [facility] [address] [address] Jan, [facility] [address] [address] Jan, [facility] [address] [address] Dec, Type 1 diabetes mellitus with hypoglycem ia without coma E10.649 and Low back pain M54.5 [facility] [address] [address] Dec, Low back pain M54.5 [facility] [address] [address] Dec, Diastolic dysfunction I51.89 ; Essential hypertension I10 and Chronic kidney disease, stage 4 (severe) N18.4 [place] [address] [address] 11 Dec, 2018 RUQ abdominal pain R10.11 ; Type 1 diabe camryn mellitus without complications E10.9 ; Therapeutic drug monitoring Z51.81 ; Migraine with aura and without status migrainosus, not intractable G43.109 and Intractable migraine without aura and with status migrainosus G43.011 [place] [address] [address] Nov, Low back pain M54.5 [place] [address] [address] Nov, [place] [address] [address] Nov, Intractable migraine without aura and wi th status migrainosus G43.011 ; Lymphedema I89.0 ; Pain in right shoulder M25.511 ; Other chronic pain G89.29 ; Irritable bowel syndrome with diarrhea K58.0 ; Type 1 diabetes mellitus without complications E10.9 and Essential hypertension I10 [place] [address] [address] Oct, Low back pain M54.5 [place] [address] [address] Oct, [place] [address] [address] Oct, Orthostatic hypotension I95.1 ; Shortnes s of breath R06.02 ; Leg swelling M79.89 ; Type 1 diabetes mellitus without complications E10.9 and Claudication I73.9 [place] [address] [address] Sep, Low back pain M54.5 [place] [address] [address] Sep, Low back pain M54.5 [place] [address] [address] Aug, [facility] [address] [place] [id number] [place] [address] Aug, Migraine without aura and without status migrainosus, not intractable G43.009 [facility] [address] [address] Aug, Low back pain M54.5 [facility] [address] [facility] [id number] [place] [address] Aug, Acute rhinosinusitis J01.90 and Sore throat J02.9 [facility] [address] [address] Jul, Low back pain M54.5 [facility] [address] [address] Jul, Migraine without aura and without status migrainosus, not intractable G43.009 [facility] [address] [address] Jun, Low back pain M54.5 [facility] [address] [address] Jun, [facility] [address] [address] Jun, Orthostatic hypotension I95.1 ; Shortnes s of breath R06.02 ; Type 1 diabetes mellitus without complications E10.9 and Leg swelling M79.89 [facility] [address] [address] Jun, Low back pain M54.5 [facility] [address] [address] Jun, [facility] [address] [address] May, Migraine without aura and without status migrainosus, not intractable G43.009 [facility] [address] [address] May, Migraine without aura and without status migrainosus, not intractable G43.009 ; Restless legs syndrome G25.81 ; Leg cramps R25.2 ; Chronic kidney disease, unspecified N18.9 ; Postural hypotension I95.1 ; Diarrhea, unspecified type R19.7 and Cough R05 [facility] [address] [address] May, [facility] [address] [address] May, [facility] [address] [address] May, Orthostatic hypotension I95.1 ; Shortnes s of breath R06.02 ; Type 1 diabetes mellitus with complications E10.8 and Leg swelling M79.89 [place] [address] [address] May, [place] [address] [address] May, Low back pain M54.5 [place] [address] [address] Apr, Type 1 diabetes mellitus with hyperglyce sebastian E10.65 [place] [address] [address] Apr, Low back pain M54.5 [facility] [address] [address] Apr, [facility] [address] [address] Apr, [facility] [address] [address] March, [place] [address] [address] March, Low back pain M54.5 [facility] [address] [address] March, [place] [address] [address] Feb, [place] [address] [address] Feb, Low back pain M54.5 [place] [address] [address] Jan, Restless legs syndrome G25.81 [place] [address] [address] Jan, Low back pain M54.5 [place] [address] [address] Jan, [place] [address] [address] Jan, Type 1 diabetes mellitus without complic ations E10.9 ; Low back pain M54.5 ; Cough R05 ; Diarrhea, unspecified type R19.7 ; Migraine without aura and without status migrainosus, not intractable G43.009 and Uses control Z30.9 [place] [address] [address] Dec, Low back pain M54.5 [place] [address] [address] Dec, [place] [address] [address] Nov, Well woman exam Z01.419 ; Menorrhagia wi th regular cycle N92.0 ; Vaginal dryness N89.8 and Migraine with aura and without status migrainosus, not intractable G43.109 [place] [address] [address] Nov, [place] [address] [address] Nov, Low back pain M54.5 [place] [address] [address] Oct, Low back pain M54.5 [facility] [address] [address] Oct, Migraine without aura and without status migrainosus, not intractable G43.009 [facility] [address] [address] Sep, Low back pain M54.5 [facility] [address] [address] Sep, [facility] [address] [address] Sep, Migraine without aura and without status migrainosus, not intractable G43.009 [place] [address] [address] Sep, Type 1 diabetes mellitus with hypoglycem ia without coma E10.649 ; Anemia D64.9 ; Migraine without aura and without status migrainosus, not intractable G43.009 ; Chronic kidney disease, unspecified N18.9 ; Autonomic neuropathy G90.9 and Postural hypotension I95.1 [place] [address] [address] Sep, Low back pain M54.5 [place] [address] [address] Aug, Low back pain M54.5 [place] [address] [address] 14 Jul, 2017 [facility] [address] [address] Jul, Low back pain M54.5 [facility] [address] [address] Jun, [facility] [address] [address] Jun, Low back pain M54.5 [facility] [address] [address] Jun, Migraine without aura and without status migrainosus, not intractable G43.009 [facility] [address] [address] Jun, Type 1 diabetes mellitus with hyperglyce sebastian E10.65 ; Dysthymia F34.1 and Migraine without aura and without status migrainosus, not intractable G43.009 [facility] [address] [address] Jun, [facility] [address] [address] May, Type 1 diabetes mellitus with hyperglyce sebastian E10.65 [place] [address] [address] May, Low back pain M54.5 [place] [address] [address] May, Type 1 diabetes mellitus with hyperglyce sebastian E10.65 [place] [address] [address] Apr, [place] [address] [address] Apr, Chronic kidney disease, stage 4 (severe) N18.4 [place] [address] [address] Apr, Low back pain M54.5 [place] [address] [address] March, [facility] [address] [address] March, Low back pain M54.5 [facility] [address] [address] Feb, [place] [address] [address] Feb, [facility] [address] [address] Feb, Low back pain M54.5 [place] [address] [address] Feb, Low back pain M54.5 [place] [address] [address] Feb, Migraine without aura and without status migrainosus, not intractable G43.009 [place] [address] [address] Feb, [place] [address] [address] Jan, Low back pain M54.5 [place] [address] [address] Jan, Type 1 diabetes mellitus without complic ations E10.9 ; Anemia D64.9 ; Chronic kidney disease, unspecified N18.9 ; Migraine without aura and without status migrainosus, not intractable G43.009 and Other insomnia G47.09 [place] [address] [address] Jan, [place] [address] [address] Dec, Low back pain M54.5 [place] [address] [address] Dec, [place] [address] [address] Dec, [place] [address] [address] 08 Dec, 2016 Shortness of breath R06.02 ; Type 1 diab etes mellitus without complications E10.9 and Leg swelling M79.89 [place] [address] [address] Nov, Low back pain M54.5 [place] [address] [address] Nov, Viral syndrome B34.9 [place] [address] [address] Oct, Low back pain M54.5 [facility] [address] [address] Oct, [facility] [address] [address] Oct, Low back pain M54.5 [facility] [address] [address] Sep, [facility] [address] [address] Sep, Fatigue, unspecified type R53.83 ; Type 1 diabetes mellitus without complications E10.9 and Anemia D64.9 [facility] [address] [address] Sep, Low back pain M54.5 [facility] [address] [address] Sep, Type 1 diabetes mellitus with hyperglyce sebastian E10.65 [facility] [address] [address] Aug, Type 1 diabetes mellitus without complic ations E10.9 [facility] [address] [address] Aug, [facility] [address] [address] Aug, [facility] [address] [address] Jul, [facility] [address] [address] 14 Jul, 2016 Low back pain M54.5 [facility] [address] [address] 12 Jul, 2016 Hyperkalemia, diminished renal excretion E87.5 [facility] [address] [address] Jul, Hyperkalemia, diminished renal excretion E87.5 [facility] [address] [address] Jun, [facility] [address] [address] Jun, Low back pain M54.5 [facility] [address] [address] Jun, Anemia D64.9 ; Autonomic neuropathy G90. 9 and Postural hypotension I95.1 [place] [address] [address] Jun, [place] [address] [address] May, Type 1 diabetes mellitus with complicati ons E10.8 and Anemia D64.9 [place] [address] [address] May, Low back pain M54.5 [place] [address] [address] Apr, [place] [address] [address] Apr, Low back pain M54.5 [place] [address] [address] Apr, [place] [address] [address] Apr, [place] [address] [address] March, Low back pain M54.5 and Other chronic pa in G89.29 [place] [address] [address] March, Type 1 diabetes mellitus without complic ations E10.9 [facility] [address] [address] March, [place] [address] [place] [id number] [place] [address] March, [facility] [address] [address] Feb, [facility] [address] [address] Feb, Type 1 diabetes mellitus without complic ations E10.9 [place] [address] [address] Feb, Trochanteric bursitis, right hip M70.61 [place] [address] [address] Jan, [place] [address] [address] Jan, [place] [address] [address] Dec, Type 1 diabetes mellitus with complicati ons E10.8 [place] [address] [address] Dec, [place] [address] [address] Dec, Anemia D64.9 ; Autonomic neuropathy G90. 9 and Postural hypotension I95.1 [place] [address] [address] Dec, [place] [address] [address] Nov, Sore throat J02.9 [facility] [address] [address] Nov, Type 1 diabetes mellitus with complicati ons E10.8 [place] [address] [address] Nov, Type 1 diabetes mellitus with diabetic n ephropathy E10.21 ; Proteinuria, unspecified R80.9 and Chronic kidney disease, unspecified N18.9 [place] [address] [place] [id number] [place] [address] 14 Nov, 2015 [facility] [address] [place] [id number] [place] [address] Nov, Trochanteric bursitis, right hip M70.61 [facility] [address] [place] [id number] [place] [address] Nov, [facility] [address] [address] Oct, [facility] [address] [place] [id number] [place] [address] Oct, [facility] [address] [address] Oct, [facility] [address] [place] [id number] [place] [address] Sep, [facility] [address] [address] Sep, [facility] [address] [address] Sep, Type 2 diabetes mellitus with complicati on E11.8 and Right hip pain M25.551 [facility] [address] [place] [id number] [place] [address] Sep, [facility] [address] [place] [id number] [place] [address] Aug, [facility] [address] [address] Aug, [facility] [address] [place] [id number] [place] [address] Aug, [facility] [address] [address] Aug, Type 1 diabetes mellitus without complic ations E10.9 [facility] [address] [place] [id number] [place] [address] 16 Jul, 2015 [facility] [address] [place] [address] 15 Jul, 2015 [facility] [address] [address] Jul, [facility] [address] [address] Jun, [facility] [address] [address] Jun, [facility] [address] [address] Jun, [facility] [address] [address] Jun, [facility] [address] [address] Jun, [facility] [address] [address] Jun, Diabetes mellitus without mention of com plication, type I [juvenile type], not stated as uncontrolled 250.01 [facility] [address] [address] May, [facility] [address] [address] May, [facility] [address] [address] May, [facility] [address] [address] May, Autonomic neuropathy 337.9 ; Postural hy potension 458.0 and Anemia 285.9 [facility] [address] [address] May, [facility] [address] [address] Apr, [facility] [address] [address] Apr, [facility] [address] [address] Apr, [facility] [address] [facility] [id number] [facility] [place] [address] Apr, [facility] [address] [facility] [id number] [facility] [place] [address] Apr, [facility] [address] [id number] [place] [address] March, [facility] [address] [id number] [facility] [place] [address] March, [facility] [address] [facility] [id number] [facility] [address] March, [facility] [address] [id number] [place] [address] March, [facility] [place] [facility] [address] [id number] [place] [address] March, [facility] [place] [facility] [address] [id number] [facility] [place] [address] Feb, [facility] [place] [facility] [address] [id number] [place] [address] Feb, [facility] [place] [facility] [address] [id number] [place] [address] Feb, [facility] [place] [facility] [address] [id number] [place] [address] 30 Jan, 2015 [facility] [place] [facility] [address] [id number] [place] [address] Jan, [facility] [place] [facility] [address] [facility] [id number] [facility] [place] [address] Jan, [facility] [place] [facility] [address] [id number] [place] [address] Jan, [facility] [place] [facility] [address] [id number] [place] [address] Jan, [facility] [place] [facility] [address] [id number] [place] [address] Jan, [facility] [place] [facility] [address] [id number] [place] [address] Jan, [facility] [place] [facility] [address] [id number] [place] [address] Jan, [facility] [place] [facility] [address] [id number] [place] [address] Jan, [facility] [place] [facility] [address] [id number] [place] [address] Jan, [facility] [place] [facility] [address] [id number] [place] [address] Jan, [facility] [place] [facility] [address] [id number] [place] [address] Jan, [facility] [place] [facility] [address] [id number] [place] [address] Jan, [facility] [place] [facility] [address] [id number] [place] [address] Dec, [facility] [place] [facility] [address] [id number] [place] [address] Dec, [facility] [place] [facility] [address] [facility] [id number] [place] [address] Dec, [facility] [place] [facility] [address] [id number] [place] [address] Dec, [facility] [place] [facility] [address] [id number] [place] [address] Dec, [facility] [place] [facility] [address] [id number] [place] [address] Dec, [facility] [place] [facility] [address] [id number] [place] [address] Dec, [facility] [place] [facility] [address] [id number] [place] [address] Dec, [facility] [place] [facility] [address] [id number] [place] [address] Nov, [facility] [place] [facility] [address] [id number] [place] [address] Nov, [facility] [place] [facility] [address] [id number] [place] [address] Nov, [facility] [place] [facility] [address] [id number] [place] [address] Nov, [facility] [place] [facility] [address] [id number] [place] [address] Nov, [facility] [place] [facility] [address] [id number] [place] [address] Nov, [facility] [place] [facility] [address] [id number] [place] [address] Nov, [facility] [place] [facility] [address] [id number] [place] [address] Nov, [facility] [place] [facility] [address] [id number] [place] [address] Nov, [facility] [place] [facility] [address] [id number] [place] [address] Oct, [facility] [place] [facility] [address] [id number] [place] [address] Oct, [facility] [place] [facility] [address] [id number] [place] [address] Oct, [facility] [place] [facility] [address] [id number] [place] [address] Oct, [facility] [place] [facility] [address] [id number] [place] [address] Oct, [facility] [place] [facility] [address] [id number] [place] [address] Oct, [facility] [place] [facility] [address] [id number] [place] [address] Oct, [facility] [place] [facility] [address] [id number] [place] [address] Oct, [facility] [place] [facility] [address] [id number] [place] [address] Oct, [facility] [place] [facility] [address] [id number] [place] [address] Oct, [facility] [place] [facility] [address] [id number] [place] [address] Oct, [facility] [place] [facility] [address] [id number] [place] [address] Oct, [facility] [place] [facility] [address] [id number] [place] [address] Oct, [facility] [place] [facility] [address] [id number] [place] [address] Oct, [facility] [place] [facility] [address] [id number] [place] [address] Sep, [facility] [place] [facility] [address] [id number] [place] [address] Sep, [facility] [place] [facility] [id number] [place] [address] Sep, [facility] [place] [facility] [address] [id number] [place] [address] Sep, [facility] [place] [facility] [address] [id number] [place] [address] Aug, [facility] [place] [facility] [address] [id number] [place] [address] Aug, [facility] [place] [facility] [address] [id number] [place] [address] Aug, [facility] [place] [facility] [address] [id number] [place] [address] Aug, [facility] [place] [facility] [address] [id number] [place] [address] Aug, [facility] [place] [facility] [address] [id number] [place] [address] Aug, [facility] [place] [facility] [address] [id number] [place] [address] Aug, [facility] [place] [facility] [address] [id number] [place] [address] Aug, [facility] [place] [facility] [address] [place] [id number] [place] [address] 02 Aug, 2013 [facility] [place] [facility] [address] [id number] [place] [address] 02 Aug, 2013 [facility] [place] [facility] [address] [id number] [place] [address] 29 Sep, 2013 [facility] [place] [facility] [address] [id number] [place] [address] 29 Sep, 2013 [facility] [place] [facility] [address] [facility] [id number] [place] [address] 29 Sep, 2013 [facility] [place] [facility] [address] [id number] [place] [address] 29 Sep, 2013 [facility] [place] [facility] [address] [id number] [place] [address] 22 Sep, 2013 [facility] [place] [facility] [address] [id number] [place] [address] 22 Jul, 2013 [facility] [place] [facility] [address] [id number] [place] [address] 19 Sep, 2013 [facility] [place] [facility] [address] [id number] [place] [address] 19 Sep, 2013 [facility] [place] [facility] [address] [id number] [place] [address] 11 Sep, 2013 [facility] [place] [facility] [address] [id number] [place] [address] 11 Sep, 2013 [facility] [place] [facility] [address] [id number] [place] [address] 10 Sep, 2013 [facility] [place] [facility] [address] [id number] [place] [address] 10 Sep, 2013 [facility] [place] [facility] [address] [id number] [place] [address] 08 Sep, 2013 [facility] [place] [facility] [address] [id number] [place] [address] 08 Sep, 2013 [facility] [place] [facility] [address] [id number] [place] [address] 03 Sep, 2013 [facility] [place] [facility] [address] [id number] [place] [address] 03 Jul, 2013 [facility] [place] [facility] [address] [id number] [place] [address] Jul, 2013 [facility] [place] [facility] [address] [facility] [id number] [facility] [address] Jul, [facility] [place] [facility] [address] [id number] [place] [address] Jun, [facility] [place] [facility] [address] [id number] [place] [address] Jun, [facility] [place] [facility] [address] [id number] [place] [address] Jun, [facility] [place] [facility] [address] [facility] [id number] [facility] [place] [address] Jun, [facility] [place] [facility] [address] [id number] [facility] [place] [address] Jun, [facility] [place] [facility] [address] [facility] [id number] [place] [address] Jun, [facility] [place] [facility] [address] [id number] [facility] [place] [address] Jun, [facility] [place] [facility] [address] [facility] [id number] [facility] [place] [address] Jun, [facility] [place] [facility] [address] [id number] [facility] [place] [address] Jun, [facility] [place] [facility] [address] [id number] [facility] [address] Jun, [facility] [place] [facility] [address] [id number] [facility] [place] [address] Jun, [facility] [place] [facility] [address] [facility] [id number] [facility] [place] [address] Jun, [facility] [place] [facility] [address] [id number] [facility] [place] [address] Jun, [facility] [place] [facility] [address] [facility] [id number] [place] [address] Jun, [facility] [place] [facility] [address] [facility] [id number] [facility] [address] Jun, [facility] [place] [facility] [address] [facility] [id number] [place] [address] May, [facility] [place] [facility] [address] [id number] [place] [address] May, [facility] [place] [facility] [address] [facility] [id number] [place] [address] May, [facility] [place] [facility] [address] [facility] [id number] [place] [address] May, [facility] [place] [facility] [address] [id number] [place] [address] May, [facility] [place] [facility] [address] [id number] [place] [address] May, [facility] [place] [facility] [address] [id number] [place] [address] May, [facility] [place] [facility] [address] [id number] [place] [address] May, [facility] [place] [facility] [address] [id number] [place] [address] Apr, [facility] [place] [facility] [address] [id number] [place] [address] Apr, [facility] [place] [facility] [address] [id number] [place] [address] Apr, [facility] [place] [facility] [address] [facility] [id number] [place] [address] Apr, [facility] [place] [facility] [address] [id number] [place] [address] Apr, [facility] [place] [facility] [address] [id number] [place] [address] Apr, [facility] [place] [facility] [address] [id number] [place] [address] Apr, [facility] [place] [facility] [address] [id number] [place] [address] Apr, [facility] [place] [facility] [address] [id number] [place] [address] Apr, [facility] [place] [facility] [address] [id number] [place] [address] Apr, [facility] [place] [facility] [address] [id number] [place] [address] Apr, [facility] [place] [facility] [address] [facility] [id number] [place] [address] Apr, [facility] [place] [facility] [address] [id number] [place] [address] Apr, [facility] [place] [facility] [address] [id number] [place] [address] Apr, [facility] [place] [facility] [address] [id number] [place] [address] Apr, [facility] [place] [facility] [address] [id number] [place] [address] Apr, [facility] [place] [facility] [address] [id number] [place] [address] Apr, [facility] [place] [facility] [address] [id number] [place] [address] Apr, [facility] [place] [facility] [address] [id number] [place] [address] March, [facility] [place] [facility] [address] [id number] [place] [address] March, [facility] [place] [facility] [address] [id number] [place] [address] March, [facility] [place] [facility] [address] [id number] [place] [address] March, [facility] [place] [facility] [address] [id number] [place] [address] March, [facility] [place] [facility] [address] [id number] [place] [address] March, [facility] [place] [facility] [address] [id number] [facility] [address] March, [facility] [place] [facility] [address] [facility] [id number] [facility] [place] [address] March, [facility] [place] [facility] [address] [facility] [id number] [facility] [place] [address] March, [facility] [place] [facility] [address] [id number] [place] [address] Feb, [facility] [place] [facility] [address] [facility] [id number] [place] [address] Feb, [facility] [place] [facility] [address] [id number] [facility] [address] Feb, [facility] [place] [facility] [address] [id number] [place] [address] Feb, [facility] [place] [facility] [address] [id number] [facility] [address] Feb, [facility] [place] [facility] [address] [id number] [facility] [address] Feb, [facility] [place] [facility] [address] [id number] [facility] [address] Feb, [facility] [place] [facility] [address] [id number] [place] [address] Feb, [facility] [place] [facility] [address] [id number] [place] [address] Feb, [facility] [place] [facility] [address] [id number] [facility] [address] Feb, [facility] [place] [facility] [address] [id number] [place] [address] Feb, [facility] [place] [facility] [address] [id number] [place] [address] Feb, [facility] [place] [facility] [address] [id number] [facility] [address] Feb, [facility] [place] [facility] [address] [id number] [place] [address] Jan, [facility] [place] [facility] [address] [facility] [id number] [facility] [address] Jan, [facility] [place] [facility] [address] [facility] [id number] [facility] [address] Jan, [facility] [place] [facility] [address] [id number] [facility] [address] Jan, [facility] [place] [facility] [address] [facility] [id number] [facility] [address] Jan, [facility] [place] [facility] [address] [facility] [id number] [facility] [address] Jan, [facility] [place] [facility] [address] [id number] [place] [address] Jan, [facility] [place] [facility] [address] [id number] [place] [address] Jan, [facility] [place] [facility] [address] [id number] [place] [address] Dec, [facility] [place] [facility] [address] [facility] [id number] [facility] [address] Dec, [facility] [place] [facility] [address] [id number] [place] [address] Dec, [facility] [place] [facility] [address] [id number] [place] [address] Dec, [facility] [place] [facility] [address] [id number] [place] [address] Dec, [facility] [place] [facility] [address] [facility] [id number] [place] [address] Dec, [facility] [place] [facility] [address] [id number] [place] [address] Dec, [facility] [place] [facility] [address] [id number] [place] [address] Dec, [facility] [place] [facility] [address] [id number] [place] [address] Dec, [facility] [place] [facility] [address] [id number] [place] [address] Dec, [facility] [place] [facility] [address] [id number] [place] [address] Nov, [facility] [place] [facility] [address] [id number] [place] [address] Nov, [facility] [place] [facility] [address] [id number] [place] [address] Nov, [facility] [place] [facility] [address] [id number] [place] [address] Nov, [facility] [place] [facility] [address] [id number] [place] [address] Nov, [facility] [place] [facility] [address] [id number] [place] [address] Nov, [facility] [place] [facility] [address] [id number] [place] [address] Nov, [facility] [place] [facility] [address] [id number] [place] [address] Nov, [facility] [place] [facility] [address] [id number] [place] [address] Nov, [facility] [place] [facility] [address] [id number] [place] [address] Nov, [facility] [place] [facility] [address] [id number] [place] [address] Oct, [facility] [place] [facility] [address] [id number] [place] [address] Oct, [facility] [place] [facility] [address] [id number] [place] [address] 18 Oct, 2013 [facility] [place] [facility] [address] [id number] [place] [address] Oct, [facility] [place] [facility] [address] [id number] [place] [address] 17 Oct, 2013 [facility] [place] [facility] [address] [id number] [place] [address] 17 Oct, 2013 [facility] [place] [facility] [address] [id number] [place] [address] 16 Oct, 2013 [facility] [place] [facility] [address] [id number] [place] [address] Oct, [facility] [place] [facility] [address] [id number] [place] [address] Oct, [facility] [place] [facility] [address] [id number] [place] [address] Oct, [facility] [place] [facility] [address] [id number] [place] [address] Oct, [facility] [place] [facility] [address] [id number] [place] [address] Oct, [facility] [place] [facility] [address] [id number] [place] [address] Oct, [facility] [place] [facility] [address] [id number] [place] [address] Oct, [facility] [place] [facility] [address] [id number] [place] [address] Sep, [facility] [place] [facility] [address] [id number] [place] [address] Sep, [facility] [place] [facility] [address] [id number] [place] [address] Sep, [facility] [place] [facility] [address] [id number] [place] [address] Sep, [facility] [place] [facility] [address] [id number] [place] [address] Sep, [facility] [place] [facility] [address] [id number] [place] [address] Sep, [facility] [place] [facility] [address] [id number] [place] [address] Aug, [facility] [place] [facility] [address] [id number] [place] [address] Aug, [facility] [place] [facility] [address] [id number] [place] [address] 17 Aug, 2012 [facility] [place] [facility] [address] [id number] [place] [address] 17 Aug, 2012 [facility] [place] [facility] [address] [id number] [place] [address] 10 Aug, 2012 [facility] [place] [facility] [address] [id number] [place] [address] 10 Aug, 2012 [facility] [place] [facility] [address] [id number] [place] [address] 07 Aug, 2012 [facility] [place] [facility] [address] [id number] [place] [address] 02 Aug, 2012 [facility] [place] [facility] [address] [id number] [place] [address] 02 Aug, 2012 [facility] [place] [facility] [address] [id number] [place] [address] 25 Sep, 2012 [facility] [place] [facility] [address] [id number] [place] [address] 23 Sep, 2012 [facility] [place] [facility] [address] [id number] [place] [address] 21 Sep, 2012 [facility] [place] [facility] [address] [id number] [place] [address] 20 Sep, 2012 [facility] [place] [facility] [address] [id number] [place] [address] 18 Sep, 2012 [facility] [place] [facility] [address] [id number] [place] [address] 17 Sep, 2012 [facility] [place] [facility] [address] [id number] [place] [address] 16 Sep, 2012 [facility] [place] [facility] [address] [id number] [place] [address] 11 Sep, 2012 [facility] [place] [facility] [address] [id number] [place] [address] 09 Sep, 2012 [facility] [place] [facility] [address] [id number] [place] [address] 09 Sep, 2012 [facility] [place] [facility] [address] [id number] [facility] [place] [address] Jul, 2012 [facility] [place] [facility] [address] [facility] [id number] [place] [address] Jul, [facility] [place] [facility] [address] [facility] [id number] [facility] [place] [address] Jun, [facility] [place] [facility] [address] [id number] [place] [address] Jun, [facility] [place] [facility] [address] [id number] [place] [address] Jun, [facility] [place] [facility] [address] [id number] [place] [address] Jun, [facility] [place] [facility] [address] [id number] [facility] [place] [address] Jun, [facility] [place] [facility] [address] [id number] [facility] [place] [address] Jun, [facility] [place] [facility] [address] [facility] [id number] [facility] [place] [address] Jun, [facility] [place] [facility] [address] [id number] [facility] [place] [address] Jun, [facility] [place] [facility] [address] [id number] [facility] [place] [address] Jun, [facility] [place] [facility] [address] [id number] [place] [address] May, [facility] [place] [facility] [address] [facility] [id number] [facility] [place] [address] May, [facility] [place] [facility] [address] [id number] [facility] [place] [address] May, [facility] [place] [facility] [address] [facility] [id number] [facility] [place] [address] May, [facility] [place] [facility] [address] [id number] [facility] [place] [address] May, [facility] [place] [facility] [address] [id number] [place] [address] May, [facility] [place] [facility] [address] [id number] [facility] [place] [address] May, [facility] [place] [facility] [address] [id number] [place] [address] March, [facility] [place] [facility] [address] [id number] [place] [address] March, [facility] [place] [facility] [address] [id number] [place] [address] March, [facility] [place] [facility] [address] [id number] [place] [address] Dec, [facility] [place] [facility] [address] [id number] [place] [address] Nov, [facility] [place] [facility] [address] [id number] [place] [address] Aug, [facility] [place] [facility] [address] [id number] [place] [address] Aug, [facility] [place] [facility] [address] [id number] [place] [address] Jun, [facility] [place] [facility] [address] [id number] [place] [address] Jun, [facility] [place] [facility] [address] [id number] [place] [address] Jun, [facility] [place] [facility] [address] [id number] [place] [address] Jun, [facility] [place] [facility] [address] [facility] [id number] [place] [address] May, [facility] [place] [facility] [address] [id number] [place] [address] May, [facility] [place] [facility] [address] [id number] [place] [address] May, [facility] [place] [facility] [address] [id number] [place] [address] May, [facility] [place] [facility] [address] [id number] [place] [address] May, [facility] [place] [facility] [address] [id number] [place] [address] May, [facility] [place] [facility] [address] [id number] [place] [address] May, [facility] [place] [facility] [address] [id number] [place] [address] Apr, [facility] [place] [facility] [address] [id number] [place] [address] Apr, [facility] [place] [facility] [address] [id number] [place] [address] Apr, [facility] [place] [facility] [address] [id number] [place] [address] Apr, [facility] [place] [facility] [address] [id number] [place] [address] March, [facility] [place] [facility] [address] [id number] [place] [address] March, [facility] [place] [facility] [address] [id number] [place] [address] March, [facility] [place] [facility] [address] [id number] [place] [address] March, [facility] [place] [facility] [address] [id number] [place] [address] March, [facility] [place] [facility] [address] [id number] [place] [address] March, [facility] [place] [facility] [address] [id number] [place] [address] March, [facility] [place] [facility] [address] [id number] [place] [address] March, [facility] [place] [facility] [address] [id number] [place] [address] March, [facility] [place] [facility] [address] [id number] [place] [address] 04 Feb, 2012 [facility] [address] [id number] [place] [address] Feb, [facility] [place] [facility] [address] [id number] [place] [address] 28 Jan, 2012 [facility] [place] [facility] [address] [id number] [place] [address] 27 Jan, 2012 [facility] [place] [facility] [address] [id number] [place] [address] 16 Jan, 2012 [facility] [place] [facility] [address] [id number] [place] [address] 05 Jan, 2012 [facility] [place] [facility] [address] [id number] [place] [address] 20 Dec, 2011 [facility] [place] [facility] [address] [id number] [place] [address] 16 Dec, 2011 [facility] [place] [facility] [address] [id number] [place] [address] 15 Dec, 2011 [facility] [place] [facility] [address] [id number] [place] [address] Nov, [facility] [place] [facility] [address] [id number] [place] [address] Oct, [facility] [facility] [address] [id number] [place] [address] 15 Oct, 2011 [facility] [address] [id number] [place] [address] 15 Oct, 2011 [facility] [address] [id number] [place] [address] 14 Oct, 2011 [facility] [address] [id number] [place] [address] 14 Oct, 2011 [facility] [address] [id number] [place] [address] 12 Oct, 2011 [facility] [address] [id number] [place] [address] 09 Oct, 2011 [facility] [id number] [place] [address] Oct, [facility] [id number] [place] [address] Sep, [facility] [id number] [place] [address] Sep, [facility] [id number] [place] [address] Sep, [facility] [id number] [place] [address] Sep, [facility] [id number] [place] [address] Sep, [facility] [id number] [place] [address] Sep, [facility] [id number] [place] [address] Sep, [facility] [id number] [place] [address] Sep, [facility] [id number] [place] [address] Sep, [facility] [id number] [place] [address] Aug, [facility] [id number] [place] [address] Jul, [facility] [id number] [place] [address] Oct, [facility] [id number] [place] [address] Oct, [facility] [id number] [place] [address] Oct, IMMUNIZATIONS No Known Immunizations SOCIAL HISTORY [...]
--- OUTSIDE RECORDS SUMMARY | 2020-03-19 06:06 | XMS REPORT ---
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 58917867 Problem Chronic kidney disease, unspecified N18.9 Active 469135741 Problem Anemia, unspecified D64.9 Active 284085428 Problem Irritable bowel K58.9 Active 1074 3008 Problem Irritable bowel syndrome with diarrhea K58.0 Active 466972866 Problem Claudication I73.9 Active 0191244 6 Problem Intractable migraine without aura and with status migr ainosus G43.011 Active 885080492 Problem Peritoneal dialysis status Z99.2 Act moody 788307922 Problem Migraine without aura and without status migrain osus, not intractable G43.009 Active 068492079 Problem Other insomnia G47.09 Active 96488 2000 Problem Dysthymia F34.1 Active 02526198 Problem Chronic kidney disease, stage 4 (severe) N18.4 Active 033659088 Problem Migraine with aura and without status migrainosu s, not intractable G43.109 Active 8709504 Problem Autonomic neuropathy G90.9 Active 162295667 Problem Type 1 diabetes mellitus with complications E10.8 Active 618852354 Problem Menorrhagia with regular cycle N92.0 Active 212320553 Problem Other chronic pain G89.29 Active 8 1228846 Problem Lymphedema I89.0 Active 888952640 Problem Essential hypertension I10 Active 57527170 Problem Moderate episode of recurrent major depressive disorder F33.1 Active 632008466 Problem Type 1 diabetes mellitus without complications E10 .9 Active 945204590 Problem Primary insomnia F51.01 Active 397 2004 Problem Migraine G43.909 Active 00895477 Problem Low back pain M54.5 Active 595410 009 Problem Diastolic dysfunction I51.89 Active 9248607 Problem ESRF (end stage renal failure) N18.6 Active 08348250 Problem Restless legs G25.81 Active 159392 08 Problem Hyperthyroidism E05.90 Active 3448 6009 ALLERGIES No Information ENCOUNTERS Encounter Location Date Diagnosis [place] [address] [address] Jan, [place] [address] [address] Oct, Restless legs G25.81 [place] [address] [address] Oct, Encounter for Medicare annual wellness e xam Z00.00 ; 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 ; Migraine without aura and without status migrainosus, not intractable G43.009 ; Chronic kidney disease, stage 4 (severe) N18.4 ; Claudication I73.9 ; Peritoneal dialysis status Z99.2 ; Diastolic dysfunction I51.89 ; Primary insomnia F51.01 and Burn T30.0 [place] [address] [address] Sep, Moderate episode of recurrent major depr essive disorder F33.1 and Primary insomnia F51.01 [place] [address] [address] Aug, Hyperthyroidism E05.90 [place] [address] [address] May, Restless legs G25.81 [place] [address] [address] May, [place] [address] [address] May, [place] [address] [address] May, Type 1 diabetes mellitus with hypoglycem ia without coma E10.649 ; ESRF (end stage renal failure) N18.6 ; Leg cramps R25.2 ; Restless legs G25.81 and Low back pain M54.5 [facility] [address] [address] Apr, Low back pain M54.5 [facility] [address] [address] Apr, [facility] [address] [address] March, Low back pain M54.5 [facility] [address] [address] March, [facility] [address] [address] Feb, Low back pain M54.5 [facility] [address] [address] Jan, Low back pain M54.5 [facility] [address] [address] Jan, [facility] [address] [address] Jan, [facility] [address] [address] Jan, [facility] [address] [address] Dec, Type 1 diabetes mellitus with hypoglycem ia without coma E10.649 and Low back pain M54.5 [facility] [address] [address] Dec, Low back pain M54.5 [facility] [address] [address] Dec, Diastolic dysfunction I51.89 ; Essential hypertension I10 and Chronic kidney disease, stage 4 (severe) N18.4 [place] [address] [address] 11 Dec, 2018 RUQ abdominal pain R10.11 ; Type 1 diabe camyrn mellitus without complications E10.9 ; Therapeutic drug monitoring Z51.81 ; Migraine with aura and without status migrainosus, not intractable G43.109 and Intractable migraine without aura and with status migrainosus G43.011 [place] [address] [address] Nov, Low back pain M54.5 [place] [address] [address] Nov, [place] [address] [address] Nov, Intractable migraine without aura and wi th status migrainosus G43.011 ; Lymphedema I89.0 ; Pain in right shoulder M25.511 ; Other chronic pain G89.29 ; Irritable bowel syndrome with diarrhea K58.0 ; Type 1 diabetes mellitus without complications E10.9 and Essential hypertension I10 [place] [address] [address] Oct, Low back pain M54.5 [place] [address] [address] Oct, [place] [address] [address] Oct, Orthostatic hypotension I95.1 ; Shortnes s of breath R06.02 ; Leg swelling M79.89 ; Type 1 diabetes mellitus without complications E10.9 and Claudication I73.9 [place] [address] [address] Sep, Low back pain M54.5 [place] [address] [address] Sep, Low back pain M54.5 [place] [address] [address] Aug, [facility] [address] [place] [id number] [place] [address] Aug, Migraine without aura and without status migrainosus, not intractable G43.009 [facility] [address] [address] Aug, Low back pain M54.5 [facility] [address] [facility] [place] [id number] [place] [address] Aug, Acute rhinosinusitis J01.90 and Sore throat J02.9 [facility] [address] [address] Jul, Low back pain M54.5 [facility] [address] [address] Jul, Migraine without aura and without status migrainosus, not intractable G43.009 [facility] [address] [address] Jun, Low back pain M54.5 [facility] [address] [address] Jun, [facility] [address] [address] Jun, Orthostatic hypotension I95.1 ; Shortnes s of breath R06.02 ; Type 1 diabetes mellitus without complications E10.9 and Leg swelling M79.89 [facility] [address] [address] Jun, Low back pain M54.5 [facility] [address] [address] Jun, [facility] [address] [address] May, Migraine without aura and without status migrainosus, not intractable G43.009 [facility] [address] [address] May, Migraine without aura and without status migrainosus, not intractable G43.009 ; Restless legs syndrome G25.81 ; Leg cramps R25.2 ; Chronic kidney disease, unspecified N18.9 ; Postural hypotension I95.1 ; Diarrhea, unspecified type R19.7 and Cough R05 [facility] [address] [address] May, [facility] [address] [address] May, [facility] [address] [address] May, Orthostatic hypotension I95.1 ; Shortnes s of breath R06.02 ; Type 1 diabetes mellitus with complications E10.8 and Leg swelling M79.89 [place] [address] [address] May, [place] [address] [address] May, Low back pain M54.5 [place] [address] [address] Apr, Type 1 diabetes mellitus with hyperglyce sebastian E10.65 [place] [address] [address] Apr, Low back pain M54.5 [facility] [address] [address] Apr, [facility] [address] [address] Apr, [facility] [address] [address] March, [place] [address] [address] March, Low back pain M54.5 [facility] [address] [address] March, [place] [address] [address] Feb, [place] [address] [address] Feb, Low back pain M54.5 [place] [address] [address] Jan, Restless legs syndrome G25.81 [place] [address] [address] Jan, Low back pain M54.5 [place] [address] [address] Jan, [place] [address] [address] Jan, Type 1 diabetes mellitus without complic ations E10.9 ; Low back pain M54.5 ; Cough R05 ; Diarrhea, unspecified type R19.7 ; Migraine without aura and without status migrainosus, not intractable G43.009 and Uses control Z30.9 [place] [address] [address] Dec, Low back pain M54.5 [place] [address] [address] Dec, [place] [address] [address] Nov, Well woman exam Z01.419 ; Menorrhagia wi th regular cycle N92.0 ; Vaginal dryness N89.8 and Migraine with aura and without status migrainosus, not intractable G43.109 [place] [address] [address] Nov, [place] [address] [address] Nov, Low back pain M54.5 [place] [address] [address] Oct, Low back pain M54.5 [facility] [address] [address] Oct, Migraine without aura and without status migrainosus, not intractable G43.009 [facility] [address] [address] Sep, Low back pain M54.5 [facility] [address] [address] Sep, [facility] [address] [address] Sep, Migraine without aura and without status migrainosus, not intractable G43.009 [place] [address] [address] Sep, Type 1 diabetes mellitus with hypoglycem ia without coma E10.649 ; Anemia D64.9 ; Migraine without aura and without status migrainosus, not intractable G43.009 ; Chronic kidney disease, unspecified N18.9 ; Autonomic neuropathy G90.9 and Postural hypotension I95.1 [place] [address] [address] Sep, Low back pain M54.5 [place] [address] [address] Aug, Low back pain M54.5 [place] [address] [address] 14 Jul, 2017 [facility] [address] [address] Jul, Low back pain M54.5 [facility] [address] [address] Jun, [facility] [address] [address] Jun, Low back pain M54.5 [facility] [address] [address] Jun, Migraine without aura and without status migrainosus, not intractable G43.009 [facility] [address] [address] Jun, Type 1 diabetes mellitus with hyperglyce sebastian E10.65 ; Dysthymia F34.1 and Migraine without aura and without status migrainosus, not intractable G43.009 [facility] [address] [address] Jun, [facility] [address] [address] May, Type 1 diabetes mellitus with hyperglyce sebastian E10.65 [place] [address] [address] May, Low back pain M54.5 [place] [address] [address] May, Type 1 diabetes mellitus with hyperglyce sebastian E10.65 [place] [address] [address] Apr, [place] [address] [address] Apr, Chronic kidney disease, stage 4 (severe) N18.4 [place] [address] [address] Apr, Low back pain M54.5 [place] [address] [address] March, [facility] [address] [address] March, Low back pain M54.5 [facility] [address] [address] Feb, [place] [address] [address] Feb, [facility] [address] [address] Feb, Low back pain M54.5 [place] [address] [address] Feb, Low back pain M54.5 [place] [address] [address] Feb, Migraine without aura and without status migrainosus, not intractable G43.009 [place] [address] [address] Feb, [place] [address] [address] Jan, Low back pain M54.5 [place] [address] [address] Jan, Type 1 diabetes mellitus without complic ations E10.9 ; Anemia D64.9 ; Chronic kidney disease, unspecified N18.9 ; Migraine without aura and without status migrainosus, not intractable G43.009 and Other insomnia G47.09 [place] [address] [address] Jan, [place] [address] [address] Dec, Low back pain M54.5 [place] [address] [address] Dec, [place] [address] [address] Dec, [place] [address] [address] 08 Dec, 2016 Shortness of breath R06.02 ; Type 1 diab etes mellitus without complications E10.9 and Leg swelling M79.89 [place] [address] [address] Nov, Low back pain M54.5 [place] [address] [address] Nov, Viral syndrome B34.9 [place] [address] [address] Oct, Low back pain M54.5 [facility] [address] [address] Oct, [facility] [address] [address] Oct, Low back pain M54.5 [facility] [address] [address] Sep, [facility] [address] [address] Sep, Fatigue, unspecified type R53.83 ; Type 1 diabetes mellitus without complications E10.9 and Anemia D64.9 [facility] [address] [address] Sep, Low back pain M54.5 [facility] [address] [address] Sep, Type 1 diabetes mellitus with hyperglyce sebastian E10.65 [facility] [address] [address] Aug, Type 1 diabetes mellitus without complic ations E10.9 [facility] [address] [address] Aug, [facility] [address] [address] Aug, [facility] [address] [address] Jul, [facility] [address] [address] 14 Jul, 2016 Low back pain M54.5 [facility] [address] [address] 12 Jul, 2016 Hyperkalemia, diminished renal excretion E87.5 [facility] [address] [address] Jul, Hyperkalemia, diminished renal excretion E87.5 [facility] [address] [address] Jun, [facility] [address] [address] Jun, Low back pain M54.5 [facility] [address] [address] Jun, Anemia D64.9 ; Autonomic neuropathy G90. 9 and Postural hypotension I95.1 [place] [address] [address] Jun, [place] [address] [address] May, Type 1 diabetes mellitus with complicati ons E10.8 and Anemia D64.9 [place] [address] [address] May, Low back pain M54.5 [place] [address] [address] Apr, [place] [address] [address] Apr, Low back pain M54.5 [place] [address] [address] Apr, [place] [address] [address] Apr, [place] [address] [address] March, Low back pain M54.5 and Other chronic pa in G89.29 [place] [address] [address] March, Type 1 diabetes mellitus without complic ations E10.9 [facility] [address] [address] March, [place] [address] [place] [id number] [place] [address] March, [facility] [address] [address] Feb, [facility] [address] [address] Feb, Type 1 diabetes mellitus without complic ations E10.9 [place] [address] [address] Feb, Trochanteric bursitis, right hip M70.61 [place] [address] [address] Jan, [place] [address] [address] Jan, [place] [address] [address] Dec, Type 1 diabetes mellitus with complicati ons E10.8 [place] [address] [address] Dec, [place] [address] [address] Dec, Anemia D64.9 ; Autonomic neuropathy G90. 9 and Postural hypotension I95.1 [place] [address] [address] Dec, [place] [address] [address] Nov, Sore throat J02.9 [facility] [address] [address] Nov, Type 1 diabetes mellitus with complicati ons E10.8 [place] [address] [address] Nov, Type 1 diabetes mellitus with diabetic n ephropathy E10.21 ; Proteinuria, unspecified R80.9 and Chronic kidney disease, unspecified N18.9 [place] [address] [place] [id number] [place] [address] 14 Nov, 2015 [facility] [address] [place] [id number] [place] [address] Nov, Trochanteric bursitis, right hip M70.61 [facility] [address] [place] [id number] [place] [address] Nov, [facility] [address] [address] Oct, [facility] [address] [place] [id number] [place] [address] Oct, [facility] [address] [address] Oct, [facility] [address] [place] [id number] [place] [address] Sep, [facility] [address] [address] Sep, [facility] [address] [address] Sep, Type 2 diabetes mellitus with complicati on E11.8 and Right hip pain M25.551 [facility] [address] [place] [id number] [place] [address] Sep, [facility] [address] [place] [id number] [place] [address] Aug, [facility] [address] [address] Aug, [facility] [address] [place] [id number] [place] [address] Aug, [facility] [address] [address] Aug, Type 1 diabetes mellitus without complic ations E10.9 [facility] [address] [place] [id number] [place] [address] 16 Jul, 2015 [facility] [address] [place] [address] 15 Jul, 2015 [facility] [address] [address] Jul, [facility] [address] [address] Jun, [facility] [address] [address] Jun, [facility] [address] [address] Jun, [facility] [address] [address] Jun, [facility] [address] [address] Jun, [facility] [address] [address] Jun, Diabetes mellitus without mention of com plication, type I [juvenile type], not stated as uncontrolled 250.01 [facility] [address] [address] May, [facility] [address] [address] May, [facility] [address] [address] May, [facility] [address] [address] May, Autonomic neuropathy 337.9 ; Postural hy potension 458.0 and Anemia 285.9 [facility] [address] [address] May, [facility] [address] [address] Apr, [facility] [address] [address] Apr, [facility] [address] [address] Apr, [facility] [place] [facility] [address] [facility] [place] [id number] [facility] [address] Apr, [facility] [place] [facility] [address] [facility] [place] [id number] [facility] [address] Apr, [facility] [place] [facility] [address] [id number] [place] [address] March, [facility] [place] [facility] [address] [id number] [facility] [address] March, [facility] [place] [facility] [address] [facility] [place] [id number] [facility] [address] March, [facility] [place] [facility] [address] [id number] [place] [address] March, [facility] [place] [facility] [address] [id number] [place] [address] March, [facility] [place] [facility] [address] [id number] [facility] [address] Feb, [facility] [place] [facility] [address] [id number] [place] [address] Feb, [facility] [place] [facility] [address] [id number] [place] [address] Feb, [facility] [place] [facility] [address] [id number] [place] [address] 30 Jan, 2015 [facility] [place] [facility] [address] [id number] [place] [address] Jan, [facility] [place] [facility] [address] [facility] [place] [id number] [facility] [address] Jan, [facility] [place] [facility] [address] [id number] [place] [address] Jan, [facility] [place] [facility] [address] [id number] [place] [address] Jan, [facility] [place] [facility] [address] [id number] [place] [address] Jan, [facility] [place] [facility] [address] [id number] [place] [address] Jan, [facility] [place] [facility] [address] [id number] [place] [address] Jan, [facility] [place] [facility] [address] [id number] [place] [address] Jan, [facility] [place] [facility] [address] [id number] [place] [address] Jan, [facility] [place] [facility] [address] [id number] [place] [address] Jan, [facility] [place] [facility] [address] [id number] [place] [address] Jan, [facility] [place] [facility] [address] [id number] [place] [address] Jan, [facility] [place] [facility] [address] [id number] [place] [address] Dec, [facility] [address] [id number] [place] [address] Dec, [facility] [address] [id number] [place] [address] Dec, [facility] [address] [id number] [place] [address] Dec, [facility] [address] [id number] [place] [address] Dec, [facility] [address] [id number] [place] [address] Dec, [facility] [address] [id number] [place] [address] Dec, [facility] [address] [id number] [place] [address] Dec, [facility] [address] [id number] [place] [address] Nov, [facility] [address] [id number] [place] [address] Nov, [facility] [address] [id number] [place] [address] Nov, [facility] [address] [id number] [place] [address] Nov, [facility] [address] [id number] [place] [address] Nov, [facility] [address] [id number] [place] [address] Nov, [facility] [address] [id number] [place] [address] Nov, [facility] [address] [id number] [place] [address] Nov, [facility] [address] [id number] [place] [address] Nov, [facility] [address] [id number] [place] [address] Oct, [facility] [address] [id number] [place] [place] [address] Oct, [facility] [place] [facility] [address] [id number] [place] [address] Oct, [facility] [place] [facility] [address] [id number] [place] [address] Oct, [facility] [place] [facility] [address] [id number] [place] [address] Oct, [facility] [place] [facility] [address] [id number] [place] [address] Oct, [facility] [place] [facility] [address] [id number] [place] [address] Oct, [facility] [place] [facility] [address] [id number] [place] [address] Oct, [facility] [place] [facility] [address] [id number] [place] [address] Oct, [facility] [place] [facility] [address] [id number] [place] [address] Oct, [facility] [place] [facility] [address] [id number] [place] [address] Oct, [facility] [place] [facility] [address] [id number] [place] [address] Oct, [facility] [place] [facility] [address] [id number] [place] [address] Oct, [facility] [place] [facility] [address] [id number] [place] [address] Oct, [facility] [place] [facility] [address] [id number] [place] [address] Sep, [facility] [place] [facility] [address] [id number] [place] [address] Sep, [facility] [place] [facility] [id number] [place] [address] Sep, [facility] [place] [facility] [address] [id number] [place] [address] Sep, [facility] [place] [facility] [address] [id number] [place] [address] Aug, [facility] [place] [facility] [address] [id number] [place] [address] Aug, [facility] [place] [facility] [address] [id number] [place] [address] Aug, [facility] [place] [facility] [address] [id number] [place] [address] Aug, [facility] [place] [facility] [address] [id number] [place] [address] Aug, [facility] [place] [facility] [address] [id number] [place] [address] Aug, [facility] [place] [facility] [address] [id number] [place] [address] Aug, [facility] [place] [facility] [address] [id number] [place] [address] Aug, [facility] [place] [facility] [address] [id number] [place] [address] 02 Aug, 2013 [facility] [place] [facility] [address] [id number] [place] [address] 02 Aug, 2013 [facility] [place] [facility] [address] [id number] [place] [address] 29 Sep, 2013 [facility] [place] [facility] [address] [id number] [place] [address] 29 Sep, 2013 [facility] [place] [facility] [address] [facility] [id number] [address] 29 Sep, 2013 [facility] [place] [facility] [address] [id number] [place] [address] 29 Sep, 2013 [facility] [place] [facility] [address] [id number] [place] [address] 22 Sep, 2013 [facility] [place] [facility] [address] [id number] [place] [address] 22 Jul, 2013 [facility] [place] [facility] [address] [id number] [place] [address] 19 Sep, 2013 [facility] [place] [facility] [address] [id number] [place] [address] 19 Sep, 2013 [facility] [place] [facility] [address] [id number] [place] [address] 11 Sep, 2013 [facility] [place] [facility] [address] [id number] [place] [address] 11 Sep, 2013 [facility] [place] [facility] [address] [id number] [place] [address] 10 Sep, 2013 [facility] [place] [facility] [address] [id number] [place] [address] 10 Sep, 2013 [facility] [place] [facility] [address] [id number] [place] [address] 08 Sep, 2013 [facility] [place] [facility] [address] [id number] [place] [address] 08 Sep, 2013 [facility] [place] [facility] [address] [id number] [place] [address] 03 Sep, 2013 [facility] [place] [facility] [address] [id number] [place] [address] 03 Jul, 2013 [facility] [place] [facility] [address] [id number] [place] [address] Jul, 2013 [facility] [place] [facility] [address] [facility] [place] [id number] [facility] [address] Jul, [facility] [place] [facility] [address] [id number] [place] [address] Jun, [facility] [place] [facility] [address] [id number] [place] [address] Jun, [facility] [place] [facility] [address] [id number] [place] [address] Jun, [facility] [place] [facility] [address] [facility] [place] [id number] [facility] [place] [address] Jun, [facility] [place] [facility] [address] [id number] [facility] [address] Jun, [facility] [place] [facility] [address] [facility] [place] [id number] [place] [address] Jun, [facility] [place] [facility] [address] [id number] [facility] [place] [address] Jun, [facility] [place] [facility] [address] [facility] [place] [id number] [facility] [place] [address] Jun, [facility] [place] [facility] [address] [id number] [facility] [place] [address] Jun, [facility] [place] [facility] [address] [id number] [facility] [place] [address] Jun, [facility] [place] [facility] [address] [id number] [facility] [place] [address] Jun, [facility] [place] [facility] [address] [facility] [place] [id number] [facility] [place] [address] Jun, [facility] [place] [facility] [address] [id number] [facility] [address] Jun, [facility] [place] [facility] [address] [facility] [place] [id number] [place] [address] Jun, [facility] [place] [facility] [address] [facility] [place] [id number] [facility] [place] [address] Jun, [facility] [place] [facility] [address] [facility] [place] [id number] [place] [address] May, [facility] [place] [facility] [address] [id number] [place] [address] May, [facility] [place] [facility] [address] [facility] [place] [id number] [place] [address] May, [facility] [place] [facility] [address] [facility] [place] [id number] [place] [address] May, [facility] [place] [facility] [address] [id number] [place] [address] May, [facility] [place] [facility] [address] [id number] [place] [address] May, [facility] [place] [facility] [address] [id number] [place] [address] May, [facility] [place] [facility] [address] [id number] [place] [address] May, [facility] [place] [facility] [address] [id number] [place] [address] Apr, [facility] [place] [facility] [address] [id number] [place] [address] Apr, [facility] [place] [facility] [address] [id number] [place] [address] Apr, [facility] [place] [facility] [address] [facility] [place] [id number] [place] [address] Apr, [facility] [place] [facility] [address] [id number] [place] [address] Apr, [facility] [place] [facility] [address] [id number] [place] [address] Apr, [facility] [place] [facility] [address] [id number] [place] [address] Apr, [facility] [place] [facility] [address] [id number] [place] [address] Apr, [facility] [place] [facility] [address] [id number] [place] [address] Apr, [facility] [place] [facility] [address] [id number] [place] [address] Apr, [facility] [place] [facility] [address] [id number] [place] [address] Apr, [facility] [place] [facility] [address] [facility] [place] [id number] [place] [address] Apr, [facility] [place] [facility] [address] [id number] [place] [address] Apr, [facility] [place] [facility] [address] [id number] [place] [address] Apr, [facility] [place] [facility] [address] [id number] [place] [address] Apr, [facility] [place] [facility] [address] [id number] [place] [address] Apr, [facility] [place] [facility] [address] [id number] [place] [address] Apr, [facility] [place] [facility] [address] [id number] [place] [address] Apr, [facility] [place] [facility] [address] [id number] [place] [address] March, [facility] [place] [facility] [address] [id number] [place] [address] March, [facility] [place] [facility] [address] [id number] [place] [address] March, [facility] [place] [facility] [address] [id number] [place] [address] March, [facility] [place] [facility] [address] [id number] [place] [address] March, [facility] [place] [facility] [address] [id number] [place] [address] March, [facility] [place] [facility] [address] [id number] [facility] [address] March, [facility] [place] [facility] [address] [facility] [place] [id number] [facility] [address] March, [facility] [place] [facility] [address] [facility] [place] [id number] [facility] [place] [address] March, [facility] [place] [facility] [address] [id number] [place] [address] Feb, [facility] [place] [facility] [address] [facility] [place] [id number] [place] [address] Feb, [facility] [place] [facility] [address] [id number] [facility] [place] [address] Feb, [facility] [place] [facility] [address] [id number] [place] [address] Feb, [facility] [place] [facility] [address] [id number] [facility] [address] Feb, [facility] [place] [facility] [address] [id number] [facility] [place] [address] Feb, [facility] [place] [facility] [address] [id number] [facility] [address] Feb, [facility] [place] [facility] [address] [id number] [place] [address] Feb, [facility] [place] [facility] [address] [id number] [place] [address] Feb, [facility] [place] [facility] [address] [id number] [facility] [place] [address] Feb, [facility] [place] [facility] [address] [id number] [place] [address] Feb, [facility] [place] [facility] [address] [id number] [place] [address] Feb, [facility] [place] [facility] [address] [id number] [facility] [place] [address] Feb, [facility] [place] [facility] [address] [id number] [place] [address] Jan, [facility] [place] [facility] [address] [facility] [place] [id number] [facility] [place] [address] Jan, [facility] [place] [facility] [address] [facility] [place] [id number] [facility] [place] [address] Jan, [facility] [place] [facility] [address] [id number] [facility] [place] [address] Jan, [facility] [place] [facility] [address] [facility] [place] [id number] [facility] [place] [address] Jan, [facility] [place] [facility] [address] [facility] [place] [id number] [facility] [place] [address] Jan, [facility] [place] [facility] [address] [id number] [place] [address] Jan, [facility] [place] [facility] [address] [id number] [place] [address] Jan, [facility] [place] [facility] [address] [id number] [place] [address] Dec, [facility] [place] [facility] [address] [facility] [place] [id number] [facility] [address] Dec, [facility] [place] [facility] [address] [id number] [place] [address] Dec, [facility] [place] [facility] [address] [id number] [place] [address] Dec, [facility] [place] [facility] [address] [id number] [place] [address] Dec, [facility] [place] [facility] [address] [facility] [place] [id number] [place] [address] Dec, [facility] [place] [facility] [address] [id number] [place] [address] Dec, [facility] [place] [facility] [address] [id number] [place] [address] Dec, [facility] [place] [facility] [address] [id number] [place] [address] Dec, [facility] [place] [facility] [address] [id number] [place] [address] Dec, [facility] [place] [facility] [address] [id number] [place] [address] Nov, [facility] [place] [facility] [address] [id number] [place] [address] Nov, [facility] [place] [facility] [address] [id number] [place] [address] Nov, [facility] [place] [facility] [address] [id number] [place] [address] Nov, [facility] [place] [facility] [address] [id number] [place] [address] Nov, [facility] [place] [facility] [address] [id number] [place] [address] Nov, [facility] [place] [facility] [address] [id number] [place] [address] Nov, [facility] [place] [facility] [address] [id number] [place] [address] Nov, [facility] [place] [facility] [address] [id number] [place] [address] Nov, [facility] [place] [facility] [address] [id number] [place] [address] Nov, [facility] [place] [facility] [address] [id number] [place] [address] Oct, [facility] [place] [facility] [address] [id number] [place] [address] Oct, [facility] [place] [facility] [address] [id number] [place] [address] 18 Oct, 2013 [facility] [place] [facility] [address] [id number] [place] [address] Oct, [facility] [place] [facility] [address] [id number] [place] [address] 17 Oct, 2013 [facility] [place] [facility] [address] [id number] [place] [address] 17 Oct, 2013 [facility] [place] [facility] [address] [id number] [place] [address] 16 Oct, 2013 [facility] [place] [facility] [address] [id number] [place] [address] Oct, [facility] [place] [facility] [address] [id number] [place] [address] Oct, [facility] [place] [facility] [address] [id number] [place] [address] Oct, [facility] [place] [facility] [address] [id number] [place] [address] Oct, [facility] [place] [facility] [address] [id number] [place] [address] Oct, [facility] [place] [facility] [address] [id number] [place] [address] Oct, [facility] [place] [facility] [address] [id number] [place] [address] Oct, [facility] [place] [facility] [address] [id number] [place] [address] Sep, [facility] [place] [facility] [address] [id number] [place] [address] Sep, [facility] [place] [facility] [address] [id number] [place] [address] Sep, [facility] [place] [facility] [address] [id number] [place] [address] Sep, [facility] [place] [facility] [address] [id number] [place] [address] Sep, [facility] [place] [facility] [address] [id number] [place] [address] Sep, [facility] [place] [facility] [address] [id number] [place] [address] Aug, [facility] [place] [facility] [address] [id number] [place] [address] Aug, [facility] [place] [facility] [address] [id number] [place] [address] 17 Aug, 2012 [facility] [place] [facility] [address] [id number] [place] [address] 17 Aug, 2012 [facility] [place] [facility] [address] [id number] [place] [address] 10 Aug, 2012 [facility] [place] [facility] [address] [id number] [place] [address] 10 Aug, 2012 [facility] [place] [facility] [address] [id number] [place] [address] 07 Aug, 2012 [facility] [place] [facility] [address] [id number] [place] [address] 02 Aug, 2012 [facility] [place] [facility] [address] [id number] [place] [address] 02 Aug, 2012 [facility] [place] [facility] [address] [id number] [place] [address] 25 Sep, 2012 [facility] [place] [facility] [address] [id number] [place] [address] 23 Sep, 2012 [facility] [place] [facility] [address] [id number] [place] [address] 21 Sep, 2012 [facility] [place] [facility] [address] [id number] [place] [address] 20 Sep, 2012 [facility] [place] [facility] [address] [id number] [place] [address] 18 Sep, 2012 [facility] [place] [facility] [address] [id number] [place] [address] 17 Sep, 2012 [facility] [place] [facility] [address] [id number] [place] [address] 16 Sep, 2012 [facility] [place] [facility] [address] [id number] [place] [address] 11 Sep, 2012 [facility] [place] [facility] [address] [id number] [place] [address] 09 Sep, 2012 [facility] [place] [facility] [address] [id number] [place] [address] 09 Sep, 2012 [facility] [place] [facility] [address] [id number] [facility] [place] [address] Jul, 2012 [facility] [place] [facility] [address] [facility] [id number] [place] [address] Jul, [facility] [place] [facility] [address] [facility] [place] [id number] [facility] [place] [address] Jun, [facility] [place] [facility] [address] [id number] [place] [address] Jun, [facility] [place] [facility] [address] [id number] [place] [address] Jun, [facility] [place] [facility] [address] [id number] [place] [address] Jun, [facility] [place] [facility] [address] [id number] [facility] [place] [address] Jun, [facility] [place] [facility] [address] [id number] [facility] [place] [address] Jun, [facility] [place] [facility] [address] [facility] [place] [id number] [facility] [place] [address] Jun, [facility] [place] [facility] [address] [id number] [facility] [place] [address] Jun, [facility] [place] [facility] [address] [id number] [facility] [address] Jun, [facility] [place] [facility] [address] [id number] [place] [address] May, [facility] [place] [facility] [address] [facility] [place] [id number] [facility] [place] [address] May, [facility] [place] [facility] [address] [id number] [facility] [place] [address] May, [facility] [place] [facility] [address] [facility] [place] [id number] [facility] [place] [address] May, [facility] [place] [facility] [address] [id number] [facility] [place] [address] May, [facility] [place] [facility] [address] [id number] [place] [address] May, [facility] [place] [facility] [address] [id number] [facility] [place] [address] May, [facility] [place] [facility] [address] [id number] [place] [address] March, [facility] [place] [facility] [address] [id number] [place] [address] March, [facility] [place] [facility] [address] [id number] [place] [address] March, [facility] [place] [facility] [address] [id number] [place] [address] Dec, [facility] [place] [facility] [address] [id number] [place] [address] Nov, [facility] [place] [facility] [address] [id number] [place] [address] Aug, [facility] [place] [facility] [address] [id number] [place] [address] Aug, [facility] [place] [facility] [address] [id number] [place] [address] Jun, [facility] [place] [facility] [address] [id number] [place] [address] Jun, [facility] [place] [facility] [address] [id number] [place] [address] Jun, [facility] [place] [facility] [address] [id number] [place] [address] Jun, [facility] [place] [facility] [address] [facility] [place] [id number] [place] [address] May, [facility] [place] [facility] [address] [id number] [place] [address] May, [facility] [place] [facility] [address] [id number] [place] [address] May, [facility] [place] [facility] [address] [id number] [place] [address] May, [facility] [place] [facility] [address] [id number] [place] [address] May, [facility] [place] [facility] [address] [id number] [place] [address] May, [facility] [place] [facility] [address] [id number] [place] [address] May, [facility] [place] [facility] [address] [id number] [place] [address] Apr, [facility] [place] [facility] [address] [id number] [place] [address] Apr, [facility] [place] [facility] [address] [id number] [place] [address] Apr, [facility] [place] [facility] [address] [id number] [place] [address] Apr, [facility] [place] [facility] [address] [id number] [place] [address] March, [facility] [place] [facility] [address] [id number] [place] [address] March, [facility] [place] [facility] [address] [id number] [place] [address] March, [facility] [place] [facility] [address] [id number] [place] [address] March, [facility] [place] [facility] [address] [id number] [place] [address] March, [facility] [place] [facility] [address] [id number] [place] [address] March, [facility] [place] [facility] [address] [id number] [place] [address] March, [facility] [place] [facility] [address] [id number] [place] [address] March, [facility] [facility] [address] [id number] [place] [address] March, [facility] [address] [id number] [place] [address] 04 Feb, 2012 [facility] [address] [id number] [place] [address] Feb, [facility] [address] [id number] [place] [address] 28 Jan, 2012 [facility] [address] [id number] [place] [address] 27 Jan, 2012 [facility] [address] [id number] [place] [address] 16 Jan, 2012 [facility] [address] [id number] [place] [address] 05 Jan, 2012 [facility] [address] [id number] [place] [address] 20 Dec, 2011 [facility] [address] [id number] [place] [address] 16 Dec, 2011 [facility] [address] [id number] [place] [address] 15 Dec, 2011 [facility] [address] [id number] [place] [address] Nov, [facility] [address] [id number] [place] [address] Oct, [facility] [address] [id number] [place] [address] 15 Oct, 2011 [facility] [address] [id number] [place] [address] 15 Oct, 2011 [facility] [address] [id number] [place] [address] 14 Oct, 2011 [facility] [address] [id number] [place] [address] 14 Oct, 2011 [facility] [address] [id number] [place] [address] 12 Oct, 2011 [facility] [address] [id number] [place] [address] 09 Oct, 2011 [facility] [id number] [place] [address] Oct, [facility] [id number] [place] [address] Sep, [facility] [id number] [place] [address] Sep, [facility] [id number] [place] [address] Sep, [facility] [id number] [place] [address] Sep, [facility] [id number] [place] [address] Sep, [facility] [id number] [place] [address] Sep, [facility] [id number] [place] [address] Sep, [facility] [id number] [place] [address] Sep, [facility] [id number] [place] [address] Sep, [facility] [id number] [place] [address] Aug, [facility] [id number] [place] [address] Jul, [facility] [id number] [place] [address] Oct, [facility] [id number] [place] [address] Oct, [facility] [id number] [place] [address] Oct, IMMUNIZATIONS No Known Immunizations SOCIAL HISTORY [...]
--- OUTSIDE RECORDS SUMMARY | 2020-03-19 06:06 | XMS REPORT ---
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 69023632 Problem Chronic kidney disease, unspecified N18.9 Active 930088839 Problem Anemia, unspecified D64.9 Active 875683399 Problem Irritable bowel K58.9 Active 1074 3008 Problem Irritable bowel syndrome with diarrhea K58.0 Active 395232056 Problem Claudication I73.9 Active 5815642 6 Problem Intractable migraine without aura and with status migr ainosus G43.011 Active 551042436 Problem Peritoneal dialysis status Z99.2 Act moody 453116623 Problem Migraine without aura and without status migrain osus, not intractable G43.009 Active 138499068 Problem Other insomnia G47.09 Active 39355 2000 Problem Dysthymia F34.1 Active 29047703 Problem Chronic kidney disease, stage 4 (severe) N18.4 Active 498203041 Problem Migraine with aura and without status migrainosu s, not intractable G43.109 Active 9415280 Problem Autonomic neuropathy G90.9 Active 669191119 Problem Type 1 diabetes mellitus with complications E10.8 Active 289738084 Problem Menorrhagia with regular cycle N92.0 Active 486848879 Problem Other chronic pain G89.29 Active 8 1727071 Problem Lymphedema I89.0 Active 369136965 Problem Essential hypertension I10 Active 20175064 Problem Moderate episode of recurrent major depressive disorder F33.1 Active 375797913 Problem Type 1 diabetes mellitus without complications E10 .9 Active 813476558 Problem Primary insomnia F51.01 Active 397 2004 Problem Migraine G43.909 Active 78666589 Problem Low back pain M54.5 Active 111075 009 Problem Diastolic dysfunction I51.89 Active 7108853 Problem ESRF (end stage renal failure) N18.6 Active 93555090 Problem Restless legs G25.81 Active 499222 08 Problem Hyperthyroidism E05.90 Active 3448 6009 ALLERGIES No Information ENCOUNTERS Encounter Location Date Diagnosis [place] [address] [address] Jan, [place] [address] [address] Oct, Restless legs G25.81 [place] [address] [address] Oct, Encounter for Medicare annual wellness e xam Z00.00 ; 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 ; Migraine without aura and without status migrainosus, not intractable G43.009 ; Chronic kidney disease, stage 4 (severe) N18.4 ; Claudication I73.9 ; Peritoneal dialysis status Z99.2 ; Diastolic dysfunction I51.89 ; Primary insomnia F51.01 and Burn T30.0 [place] [address] [address] Sep, Moderate episode of recurrent major depr essive disorder F33.1 and Primary insomnia F51.01 [place] [address] [address] Aug, Hyperthyroidism E05.90 [place] [address] [address] May, Restless legs G25.81 [place] [address] [address] May, [place] [address] [address] May, [place] [address] [address] May, Type 1 diabetes mellitus with hypoglycem ia without coma E10.649 ; ESRF (end stage renal failure) N18.6 ; Leg cramps R25.2 ; Restless legs G25.81 and Low back pain M54.5 [facility] [address] [address] Apr, Low back pain M54.5 [facility] [address] [address] Apr, [facility] [address] [address] March, Low back pain M54.5 [facility] [address] [address] March, [facility] [address] [address] Feb, Low back pain M54.5 [facility] [address] [address] Jan, Low back pain M54.5 [facility] [address] [address] Jan, [facility] [address] [address] Jan, [facility] [address] [address] Jan, [facility] [address] [address] Dec, Type 1 diabetes mellitus with hypoglycem ia without coma E10.649 and Low back pain M54.5 [facility] [address] [address] Dec, Low back pain M54.5 [facility] [address] [address] Dec, Diastolic dysfunction I51.89 ; Essential hypertension I10 and Chronic kidney disease, stage 4 (severe) N18.4 [place] [address] [address] 11 Dec, 2018 RUQ abdominal pain R10.11 ; Type 1 diabe camryn mellitus without complications E10.9 ; Therapeutic drug monitoring Z51.81 ; Migraine with aura and without status migrainosus, not intractable G43.109 and Intractable migraine without aura and with status migrainosus G43.011 [place] [address] [address] Nov, Low back pain M54.5 [place] [address] [address] Nov, [place] [address] [address] Nov, Intractable migraine without aura and wi th status migrainosus G43.011 ; Lymphedema I89.0 ; Pain in right shoulder M25.511 ; Other chronic pain G89.29 ; Irritable bowel syndrome with diarrhea K58.0 ; Type 1 diabetes mellitus without complications E10.9 and Essential hypertension I10 [place] [address] [address] Oct, Low back pain M54.5 [place] [address] [address] Oct, [place] [address] [address] Oct, Orthostatic hypotension I95.1 ; Shortnes s of breath R06.02 ; Leg swelling M79.89 ; Type 1 diabetes mellitus without complications E10.9 and Claudication I73.9 [place] [address] [address] Sep, Low back pain M54.5 [place] [address] [address] Sep, Low back pain M54.5 [place] [address] [address] Aug, [facility] [address] [place] [id number] [place] [address] Aug, Migraine without aura and without status migrainosus, not intractable G43.009 [facility] [address] [address] Aug, Low back pain M54.5 [facility] [address] [facility] [id number] [place] [address] Aug, Acute rhinosinusitis J01.90 and Sore throat J02.9 [facility] [address] [address] Jul, Low back pain M54.5 [facility] [address] [address] Jul, Migraine without aura and without status migrainosus, not intractable G43.009 [facility] [address] [address] Jun, Low back pain M54.5 [facility] [address] [address] Jun, [facility] [address] [address] Jun, Orthostatic hypotension I95.1 ; Shortnes s of breath R06.02 ; Type 1 diabetes mellitus without complications E10.9 and Leg swelling M79.89 [facility] [address] [address] Jun, Low back pain M54.5 [facility] [address] [address] Jun, [facility] [address] [address] May, Migraine without aura and without status migrainosus, not intractable G43.009 [facility] [address] [address] May, Migraine without aura and without status migrainosus, not intractable G43.009 ; Restless legs syndrome G25.81 ; Leg cramps R25.2 ; Chronic kidney disease, unspecified N18.9 ; Postural hypotension I95.1 ; Diarrhea, unspecified type R19.7 and Cough R05 [facility] [address] [address] May, [facility] [address] [address] May, [facility] [address] [address] May, Orthostatic hypotension I95.1 ; Shortnes s of breath R06.02 ; Type 1 diabetes mellitus with complications E10.8 and Leg swelling M79.89 [place] [address] [address] May, [place] [address] [address] May, Low back pain M54.5 [place] [address] [address] Apr, Type 1 diabetes mellitus with hyperglyce sebastian E10.65 [place] [address] [address] Apr, Low back pain M54.5 [facility] [address] [address] Apr, [facility] [address] [address] Apr, [facility] [address] [address] March, [place] [address] [address] March, Low back pain M54.5 [facility] [address] [address] March, [place] [address] [address] Feb, [place] [address] [address] Feb, Low back pain M54.5 [place] [address] [address] Jan, Restless legs syndrome G25.81 [place] [address] [address] Jan, Low back pain M54.5 [place] [address] [address] Jan, [place] [address] [address] Jan, Type 1 diabetes mellitus without complic ations E10.9 ; Low back pain M54.5 ; Cough R05 ; Diarrhea, unspecified type R19.7 ; Migraine without aura and without status migrainosus, not intractable G43.009 and Uses control Z30.9 [place] [address] [address] Dec, Low back pain M54.5 [place] [address] [address] Dec, [place] [address] [address] Nov, Well woman exam Z01.419 ; Menorrhagia wi th regular cycle N92.0 ; Vaginal dryness N89.8 and Migraine with aura and without status migrainosus, not intractable G43.109 [place] [address] [address] Nov, [place] [address] [address] Nov, Low back pain M54.5 [place] [address] [address] Oct, Low back pain M54.5 [facility] [address] [address] Oct, Migraine without aura and without status migrainosus, not intractable G43.009 [facility] [address] [address] Sep, Low back pain M54.5 [facility] [address] [address] Sep, [facility] [address] [address] Sep, Migraine without aura and without status migrainosus, not intractable G43.009 [place] [address] [address] Sep, Type 1 diabetes mellitus with hypoglycem ia without coma E10.649 ; Anemia D64.9 ; Migraine without aura and without status migrainosus, not intractable G43.009 ; Chronic kidney disease, unspecified N18.9 ; Autonomic neuropathy G90.9 and Postural hypotension I95.1 [place] [address] [address] Sep, Low back pain M54.5 [place] [address] [address] Aug, Low back pain M54.5 [place] [address] [address] 14 Jul, 2017 [facility] [address] [address] Jul, Low back pain M54.5 [facility] [address] [address] Jun, [facility] [address] [address] Jun, Low back pain M54.5 [facility] [address] [address] Jun, Migraine without aura and without status migrainosus, not intractable G43.009 [facility] [address] [address] Jun, Type 1 diabetes mellitus with hyperglyce sebastian E10.65 ; Dysthymia F34.1 and Migraine without aura and without status migrainosus, not intractable G43.009 [facility] [address] [address] Jun, [facility] [address] [address] May, Type 1 diabetes mellitus with hyperglyce sebastian E10.65 [place] [address] [address] May, Low back pain M54.5 [place] [address] [address] May, Type 1 diabetes mellitus with hyperglyce sebastian E10.65 [place] [address] [address] Apr, [place] [address] [address] Apr, Chronic kidney disease, stage 4 (severe) N18.4 [place] [address] [address] Apr, Low back pain M54.5 [place] [address] [address] March, [facility] [address] [address] March, Low back pain M54.5 [facility] [address] [address] Feb, [place] [address] [address] Feb, [facility] [address] [address] Feb, Low back pain M54.5 [place] [address] [address] Feb, Low back pain M54.5 [place] [address] [address] Feb, Migraine without aura and without status migrainosus, not intractable G43.009 [place] [address] [address] Feb, [place] [address] [address] Jan, Low back pain M54.5 [place] [address] [address] Jan, Type 1 diabetes mellitus without complic ations E10.9 ; Anemia D64.9 ; Chronic kidney disease, unspecified N18.9 ; Migraine without aura and without status migrainosus, not intractable G43.009 and Other insomnia G47.09 [place] [address] [address] Jan, [place] [address] [address] Dec, Low back pain M54.5 [place] [address] [address] Dec, [place] [address] [address] Dec, [place] [address] [address] 08 Dec, 2016 Shortness of breath R06.02 ; Type 1 diab etes mellitus without complications E10.9 and Leg swelling M79.89 [place] [address] [address] Nov, Low back pain M54.5 [place] [address] [address] Nov, Viral syndrome B34.9 [place] [address] [address] Oct, Low back pain M54.5 [facility] [address] [address] Oct, [facility] [address] [address] Oct, Low back pain M54.5 [facility] [address] [address] Sep, [facility] [address] [address] Sep, Fatigue, unspecified type R53.83 ; Type 1 diabetes mellitus without complications E10.9 and Anemia D64.9 [facility] [address] [address] Sep, Low back pain M54.5 [facility] [address] [address] Sep, Type 1 diabetes mellitus with hyperglyce sebastian E10.65 [facility] [address] [address] Aug, Type 1 diabetes mellitus without complic ations E10.9 [facility] [address] [address] Aug, [facility] [address] [address] Aug, [facility] [address] [address] Jul, [facility] [address] [address] 14 Jul, 2016 Low back pain M54.5 [facility] [address] [address] 12 Jul, 2016 Hyperkalemia, diminished renal excretion E87.5 [facility] [address] [address] Jul, Hyperkalemia, diminished renal excretion E87.5 [facility] [address] [address] Jun, [facility] [address] [address] Jun, Low back pain M54.5 [facility] [address] [address] Jun, Anemia D64.9 ; Autonomic neuropathy G90. 9 and Postural hypotension I95.1 [place] [address] [address] Jun, [place] [address] [address] May, Type 1 diabetes mellitus with complicati ons E10.8 and Anemia D64.9 [place] [address] [address] May, Low back pain M54.5 [place] [address] [address] Apr, [place] [address] [address] Apr, Low back pain M54.5 [place] [address] [address] Apr, [place] [address] [address] Apr, [place] [address] [address] March, Low back pain M54.5 and Other chronic pa in G89.29 [place] [address] [address] March, Type 1 diabetes mellitus without complic ations E10.9 [facility] [address] [address] March, [place] [address] [place] [id number] [place] [address] March, [facility] [address] [address] Feb, [facility] [address] [address] Feb, Type 1 diabetes mellitus without complic ations E10.9 [place] [address] [address] Feb, Trochanteric bursitis, right hip M70.61 [place] [address] [address] Jan, [place] [address] [address] Jan, [place] [address] [address] Dec, Type 1 diabetes mellitus with complicati ons E10.8 [place] [address] [address] Dec, [place] [address] [address] Dec, Anemia D64.9 ; Autonomic neuropathy G90. 9 and Postural hypotension I95.1 [place] [address] [address] Dec, [place] [address] [address] Nov, Sore throat J02.9 [facility] [address] [address] Nov, Type 1 diabetes mellitus with complicati ons E10.8 [place] [address] [address] Nov, Type 1 diabetes mellitus with diabetic n ephropathy E10.21 ; Proteinuria, unspecified R80.9 and Chronic kidney disease, unspecified N18.9 [place] [address] [place] [id number] [place] [address] 14 Nov, 2015 [facility] [address] [place] [id number] [place] [address] Nov, Trochanteric bursitis, right hip M70.61 [facility] [address] [place] [id number] [place] [address] Nov, [facility] [address] [address] Oct, [facility] [address] [place] [id number] [place] [address] Oct, [facility] [address] [address] Oct, [facility] [address] [place] [id number] [place] [address] Sep, [facility] [address] [address] Sep, [facility] [address] [address] Sep, Type 2 diabetes mellitus with complicati on E11.8 and Right hip pain M25.551 [facility] [address] [place] [id number] [place] [address] Sep, [facility] [address] [place] [id number] [place] [address] Aug, [facility] [address] [address] Aug, [facility] [address] [place] [id number] [place] [address] Aug, [facility] [address] [address] Aug, Type 1 diabetes mellitus without complic ations E10.9 [facility] [address] [place] [id number] [place] [address] 16 Jul, 2015 [facility] [address] [place] [address] 15 Jul, 2015 [facility] [address] [address] Jul, [facility] [address] [address] Jun, [facility] [address] [address] Jun, [facility] [address] [address] Jun, [facility] [address] [address] Jun, [facility] [address] [address] Jun, [facility] [address] [address] Jun, Diabetes mellitus without mention of com plication, type I [juvenile type], not stated as uncontrolled 250.01 [facility] [address] [address] May, [facility] [address] [address] May, [facility] [address] [address] May, [facility] [address] [address] May, Autonomic neuropathy 337.9 ; Postural hy potension 458.0 and Anemia 285.9 [facility] [address] [address] May, [facility] [address] [address] Apr, [facility] [address] [address] Apr, [facility] [address] [address] Apr, [facility] [place] [facility] [address] [facility] [id number] [place] [address] Apr, [facility] [place] [facility] [address] [facility] [id number] [place] [address] Apr, [facility] [place] [facility] [address] [id number] [place] [address] March, [facility] [place] [facility] [address] [id number] [place] [address] March, [facility] [place] [facility] [address] [facility] [id number] [place] [address] March, [facility] [place] [facility] [address] [id number] [place] [address] March, [facility] [place] [facility] [address] [id number] [place] [address] March, [facility] [place] [facility] [address] [id number] [place] [address] Feb, [facility] [place] [facility] [address] [id number] [place] [address] Feb, [facility] [place] [facility] [address] [id number] [place] [address] Feb, [facility] [place] [facility] [address] [id number] [place] [address] 30 Jan, 2015 [facility] [place] [facility] [address] [id number] [place] [address] Jan, [facility] [place] [facility] [address] [facility] [id number] [place] [address] Jan, [facility] [place] [facility] [address] [id number] [place] [address] Jan, [facility] [place] [facility] [address] [id number] [place] [address] Jan, [facility] [place] [facility] [address] [id number] [place] [address] Jan, [facility] [place] [facility] [address] [id number] [place] [address] Jan, [facility] [place] [facility] [address] [id number] [place] [address] Jan, [facility] [place] [facility] [address] [id number] [place] [address] Jan, [facility] [place] [facility] [address] [id number] [place] [address] Jan, [facility] [place] [facility] [address] [id number] [place] [address] Jan, [facility] [place] [facility] [address] [id number] [place] [address] Jan, [facility] [place] [facility] [address] [id number] [place] [address] Jan, [facility] [address] [id number] [place] [address] Dec, [facility] [address] [facility] [id number] [place] [address] Dec, [facility] [address] [facility] [id number] [place] [address] Dec, [facility] [address] [id number] [place] [address] Dec, [facility] [address] [facility] [id number] [place] [address] Dec, [facility] [address] [facility] [id number] [place] [address] Dec, [facility] [address] [id number] [place] [address] Dec, [facility] [address] [facility] [id number] [place] [address] Dec, [facility] [address] [id number] [place] [address] Nov, [facility] [address] [facility] [id number] [place] [address] Nov, [facility] [address] [id number] [place] [address] Nov, [facility] [address] [facility] [id number] [place] [address] Nov, [facility] [address] [id number] [place] [address] Nov, [facility] [address] [facility] [id number] [place] [address] Nov, [facility] [id number] [place] [address] Nov, [facility] [address] [facility] [id number] [place] [address] Nov, [facility] [address] [facility] [id number] [place] [address] Nov, [facility] [address] [id number] [place] [address] Oct, [facility] [place] [facility] [address] [id number] [place] [address] Oct, [facility] [place] [facility] [address] [id number] [place] [address] Oct, [facility] [place] [facility] [address] [id number] [place] [address] Oct, [facility] [place] [facility] [address] [id number] [place] [address] Oct, [facility] [place] [facility] [address] [id number] [place] [address] Oct, [facility] [place] [facility] [address] [id number] [place] [address] Oct, [facility] [place] [facility] [address] [id number] [place] [address] Oct, [facility] [place] [facility] [address] [id number] [place] [address] Oct, [facility] [place] [facility] [address] [id number] [place] [address] Oct, [facility] [place] [facility] [address] [id number] [place] [address] Oct, [facility] [place] [facility] [address] [id number] [place] [address] Oct, [facility] [place] [facility] [address] [id number] [place] [address] Oct, [facility] [place] [facility] [address] [id number] [place] [address] Oct, [facility] [place] [facility] [address] [id number] [place] [address] Sep, [facility] [place] [facility] [address] [id number] [place] [address] Sep, [facility] [place] [facility] [id number] [place] [address] Sep, [facility] [place] [facility] [address] [id number] [place] [address] Sep, [facility] [place] [facility] [address] [id number] [place] [address] Aug, [facility] [place] [facility] [address] [id number] [place] [address] Aug, [facility] [place] [facility] [address] [id number] [place] [address] Aug, [facility] [place] [facility] [address] [id number] [place] [address] Aug, [facility] [place] [facility] [address] [facility] [id number] [place] [address] Aug, [facility] [place] [facility] [address] [id number] [place] [address] Aug, [facility] [place] [facility] [address] [id number] [place] [address] Aug, [facility] [place] [facility] [address] [facility] [id number] [place] [address] Aug, [facility] [place] [facility] [address] [id number] [place] [address] 02 Aug, 2013 [facility] [place] [facility] [address] [id number] [place] [address] 02 Aug, 2013 [facility] [place] [facility] [address] [id number] [place] [address] 29 Sep, 2013 [facility] [place] [facility] [address] [id number] [place] [address] 29 Sep, 2013 [facility] [place] [facility] [address] [facility] [id number] [place] [address] 29 Sep, 2013 [facility] [place] [facility] [address] [id number] [place] [address] 29 Sep, 2013 [facility] [place] [facility] [address] [facility] [id number] [place] [address] 22 Sep, 2013 [facility] [place] [facility] [address] [facility] [id number] [place] [address] 22 Jul, 2013 [facility] [place] [facility] [address] [facility] [id number] [place] [address] 19 Sep, 2013 [facility] [place] [facility] [address] [facility] [id number] [place] [address] 19 Sep, 2013 [facility] [place] [facility] [address] [facility] [id number] [place] [address] 11 Sep, 2013 [facility] [place] [facility] [address] [id number] [place] [address] 11 Sep, 2013 [facility] [place] [facility] [address] [facility] [id number] [place] [address] 10 Sep, 2013 [facility] [place] [facility] [address] [facility] [id number] [place] [address] 10 Sep, 2013 [facility] [place] [facility] [address] [facility] [id number] [place] [address] 08 Sep, 2013 [facility] [place] [facility] [address] [facility] [id number] [place] [address] 08 Sep, 2013 [facility] [place] [facility] [address] [id number] [place] [address] 03 Sep, 2013 [facility] [place] [facility] [address] [id number] [place] [address] 03 Jul, 2013 [facility] [place] [facility] [address] [id number] [place] [address] Jul, 2013 [facility] [place] [facility] [address] [facility] [id number] [place] [address] Jul, [facility] [place] [facility] [address] [id number] [place] [address] Jun, [facility] [place] [facility] [address] [id number] [place] [address] Jun, [facility] [place] [facility] [address] [id number] [place] [address] Jun, [facility] [place] [facility] [address] [facility] [id number] [place] [address] Jun, [facility] [place] [facility] [address] [id number] [place] [address] Jun, [facility] [place] [facility] [address] [facility] [id number] [place] [address] Jun, [facility] [place] [facility] [address] [id number] [place] [address] Jun, [facility] [place] [facility] [address] [facility] [id number] [place] [address] Jun, [facility] [place] [facility] [address] [id number] [place] [address] Jun, [facility] [place] [facility] [address] [id number] [place] [address] Jun, [facility] [place] [facility] [address] [id number] [place] [address] Jun, [facility] [place] [facility] [address] [facility] [id number] [place] [address] Jun, [facility] [place] [facility] [address] [id number] [place] [address] Jun, [facility] [place] [facility] [address] [facility] [id number] [place] [address] Jun, [facility] [place] [facility] [address] [facility] [id number] [place] [address] Jun, [facility] [place] [facility] [address] [facility] [id number] [place] [address] May, [facility] [place] [facility] [address] [id number] [place] [address] May, [facility] [place] [facility] [address] [facility] [id number] [place] [address] May, [facility] [place] [facility] [address] [facility] [id number] [place] [address] May, [facility] [place] [facility] [address] [id number] [place] [address] May, [facility] [place] [facility] [address] [id number] [place] [address] May, [facility] [place] [facility] [address] [facility] [id number] [place] [address] May, [facility] [place] [facility] [address] [facility] [id number] [place] [address] May, [facility] [place] [facility] [address] [facility] [id number] [place] [address] Apr, [facility] [place] [facility] [address] [id number] [place] [address] Apr, [facility] [place] [facility] [address] [id number] [place] [address] Apr, [facility] [place] [facility] [address] [facility] [id number] [place] [address] Apr, [facility] [place] [facility] [address] [id number] [place] [address] Apr, [facility] [place] [facility] [address] [id number] [place] [address] Apr, [facility] [place] [facility] [address] [facility] [id number] [place] [address] Apr, [facility] [place] [facility] [address] [id number] [place] [address] Apr, [facility] [place] [facility] [address] [id number] [place] [address] Apr, [facility] [place] [facility] [address] [id number] [place] [address] Apr, [facility] [place] [facility] [address] [id number] [place] [address] Apr, [facility] [place] [facility] [address] [facility] [id number] [place] [address] Apr, [facility] [place] [facility] [address] [id number] [place] [address] Apr, [facility] [place] [facility] [address] [id number] [place] [address] Apr, [facility] [place] [facility] [address] [id number] [place] [address] Apr, [facility] [place] [facility] [address] [facility] [id number] [place] [address] Apr, [facility] [place] [facility] [address] [id number] [place] [address] Apr, [facility] [place] [facility] [address] [id number] [place] [address] Apr, [facility] [place] [facility] [address] [id number] [place] [address] March, [facility] [place] [facility] [address] [id number] [place] [address] March, [facility] [place] [facility] [address] [id number] [place] [address] March, [facility] [place] [facility] [address] [id number] [place] [address] March, [facility] [place] [facility] [address] [id number] [place] [address] March, [facility] [place] [facility] [address] [id number] [place] [address] March, [facility] [place] [facility] [address] [id number] [place] [address] March, [facility] [place] [facility] [address] [facility] [id number] [place] [address] March, [facility] [place] [facility] [address] [facility] [id number] [place] [address] March, [facility] [place] [facility] [address] [id number] [place] [address] Feb, [facility] [place] [facility] [address] [facility] [id number] [place] [address] Feb, [facility] [place] [facility] [address] [id number] [place] [address] Feb, [facility] [place] [facility] [address] [id number] [place] [address] Feb, [facility] [place] [facility] [address] [id number] [place] [address] Feb, [facility] [place] [facility] [address] [id number] [place] [address] Feb, [facility] [place] [facility] [address] [id number] [place] [address] Feb, [facility] [place] [facility] [address] [id number] [place] [address] Feb, [facility] [place] [facility] [address] [id number] [place] [address] Feb, [facility] [place] [facility] [address] [id number] [place] [address] Feb, [facility] [place] [facility] [address] [id number] [place] [address] Feb, [facility] [place] [facility] [address] [id number] [place] [address] Feb, [facility] [place] [facility] [address] [id number] [place] [address] Feb, [facility] [place] [facility] [address] [id number] [place] [address] Jan, [facility] [place] [facility] [address] [facility] [id number] [place] [address] Jan, [facility] [place] [facility] [address] [facility] [id number] [place] [address] Jan, [facility] [place] [facility] [address] [id number] [place] [address] Jan, [facility] [place] [facility] [address] [facility] [id number] [place] [address] Jan, [facility] [place] [facility] [address] [facility] [id number] [place] [address] Jan, [facility] [place] [facility] [address] [id number] [place] [address] Jan, [facility] [place] [facility] [address] [id number] [place] [address] Jan, [facility] [place] [facility] [address] [id number] [place] [address] Dec, [facility] [place] [facility] [address] [facility] [id number] [place] [address] Dec, [facility] [place] [facility] [address] [id number] [place] [address] Dec, [facility] [place] [facility] [address] [id number] [place] [address] Dec, [facility] [place] [facility] [address] [id number] [place] [address] Dec, [facility] [place] [facility] [address] [facility] [id number] [place] [address] Dec, [facility] [place] [facility] [address] [id number] [place] [address] Dec, [facility] [place] [facility] [address] [id number] [place] [address] Dec, [facility] [place] [facility] [address] [id number] [place] [address] Dec, [facility] [place] [facility] [address] [id number] [place] [address] Dec, [facility] [place] [facility] [address] [id number] [place] [address] Nov, [facility] [place] [facility] [address] [id number] [place] [address] Nov, [facility] [place] [facility] [address] [id number] [place] [address] Nov, [facility] [place] [facility] [address] [id number] [place] [address] Nov, [facility] [place] [facility] [address] [id number] [place] [address] Nov, [facility] [place] [facility] [address] [id number] [place] [address] Nov, [facility] [place] [facility] [address] [id number] [place] [address] Nov, [facility] [place] [facility] [address] [id number] [place] [address] Nov, [facility] [place] [facility] [address] [id number] [place] [address] Nov, [facility] [place] [facility] [address] [id number] [place] [address] Nov, [facility] [place] [facility] [address] [id number] [place] [address] Oct, [facility] [place] [facility] [address] [id number] [place] [address] Oct, [facility] [place] [facility] [address] [id number] [place] [address] 18 Oct, 2013 [facility] [place] [facility] [address] [id number] [place] [address] Oct, [facility] [place] [facility] [address] [id number] [place] [address] 17 Oct, 2013 [facility] [place] [facility] [address] [id number] [place] [address] 17 Oct, 2013 [facility] [place] [facility] [address] [id number] [place] [address] 16 Oct, 2013 [facility] [place] [facility] [address] [id number] [place] [address] Oct, [facility] [place] [facility] [address] [id number] [place] [address] Oct, [facility] [place] [facility] [address] [id number] [place] [address] Oct, [facility] [place] [facility] [address] [id number] [place] [address] Oct, [facility] [place] [facility] [address] [id number] [place] [address] Oct, [facility] [place] [facility] [address] [id number] [place] [address] Oct, [facility] [place] [facility] [address] [id number] [place] [address] Oct, [facility] [place] [facility] [address] [id number] [place] [address] Sep, [facility] [place] [facility] [address] [id number] [place] [address] Sep, [facility] [place] [facility] [address] [id number] [place] [address] Sep, [facility] [place] [facility] [address] [id number] [place] [address] Sep, [facility] [place] [facility] [address] [id number] [place] [address] Sep, [facility] [place] [facility] [id number] [place] [address] Sep, [facility] [place] [facility] [address] [id number] [place] [address] Aug, [facility] [place] [facility] [address] [id number] [place] [address] Aug, [facility] [place] [facility] [address] [id number] [place] [address] 17 Aug, 2012 [facility] [place] [facility] [address] [id number] [place] [address] 17 Aug, 2012 [facility] [place] [facility] [address] [id number] [place] [address] 10 Aug, 2012 [facility] [place] [facility] [address] [id number] [place] [address] 10 Aug, 2012 [facility] [place] [facility] [address] [id number] [place] [address] 07 Aug, 2012 [facility] [place] [facility] [address] [id number] [place] [address] 02 Aug, 2012 [facility] [place] [facility] [address] [id number] [place] [address] 02 Aug, 2012 [facility] [place] [facility] [address] [id number] [place] [address] 25 Sep, 2012 [facility] [place] [facility] [address] [id number] [place] [address] 23 Sep, 2012 [facility] [place] [facility] [address] [id number] [place] [address] 21 Sep, 2012 [facility] [place] [facility] [address] [id number] [place] [address] 20 Sep, 2012 [facility] [place] [facility] [address] [id number] [place] [address] 18 Sep, 2012 [facility] [place] [facility] [address] [id number] [place] [address] 17 Sep, 2012 [facility] [place] [facility] [address] [id number] [place] [address] 16 Sep, 2012 [facility] [place] [facility] [address] [id number] [place] [address] 11 Sep, 2012 [facility] [place] [facility] [address] [id number] [place] [address] 09 Sep, 2012 [facility] [place] [facility] [address] [id number] [place] [address] 09 Sep, 2012 [facility] [place] [facility] [address] [id number] [place] [address] Jul, 2012 [facility] [place] [facility] [address] [facility] [id number] [place] [address] Jul, [facility] [place] [facility] [address] [facility] [id number] [place] [address] Jun, [facility] [place] [facility] [address] [id number] [place] [address] Jun, [facility] [place] [facility] [address] [id number] [place] [address] Jun, [facility] [place] [facility] [address] [id number] [place] [address] Jun, [facility] [place] [facility] [address] [id number] [place] [address] Jun, [facility] [place] [facility] [address] [id number] [place] [address] Jun, [facility] [place] [facility] [address] [facility] [id number] [place] [address] Jun, [facility] [place] [facility] [address] [id number] [place] [address] Jun, [facility] [place] [facility] [address] [id number] [place] [address] Jun, [facility] [place] [facility] [address] [id number] [place] [address] May, [facility] [place] [facility] [address] [facility] [id number] [place] [address] May, [facility] [place] [facility] [address] [id number] [place] [address] May, [facility] [place] [facility] [address] [facility] [id number] [place] [address] May, [facility] [place] [facility] [address] [id number] [place] [address] May, [facility] [place] [facility] [address] [id number] [place] [address] May, [facility] [place] [facility] [address] [id number] [place] [address] May, [facility] [place] [facility] [address] [id number] [place] [address] March, [facility] [place] [facility] [address] [id number] [place] [address] March, [facility] [place] [facility] [address] [id number] [place] [address] March, [facility] [place] [facility] [address] [id number] [place] [address] Dec, [facility] [place] [facility] [address] [id number] [place] [address] Nov, [facility] [place] [facility] [address] [id number] [place] [address] Aug, [facility] [place] [facility] [address] [id number] [place] [address] Aug, [facility] [place] [facility] [address] [id number] [place] [address] Jun, [facility] [place] [facility] [address] [id number] [place] [address] Jun, [facility] [place] [facility] [address] [id number] [place] [address] Jun, [facility] [place] [facility] [address] [id number] [place] [address] Jun, [facility] [place] [facility] [address] [facility] [id number] [place] [address] May, [facility] [place] [facility] [address] [id number] [place] [address] May, [facility] [place] [facility] [address] [id number] [place] [address] May, [facility] [place] [facility] [address] [id number] [place] [address] May, [facility] [place] [facility] [address] [id number] [place] [address] May, [facility] [place] [facility] [address] [id number] [place] [address] May, [facility] [place] [facility] [address] [id number] [place] [address] May, [facility] [place] [facility] [address] [id number] [place] [address] Apr, [facility] [place] [facility] [address] [id number] [place] [address] Apr, [facility] [place] [facility] [address] [id number] [place] [address] Apr, [facility] [place] [facility] [address] [id number] [place] [address] Apr, [facility] [place] [facility] [address] [id number] [place] [address] March, [facility] [place] [facility] [address] [id number] [place] [address] March, [facility] [place] [facility] [address] [id number] [place] [address] March, [facility] [place] [facility] [address] [id number] [place] [address] March, [facility] [place] [facility] [address] [id number] [place] [address] March, [facility] [place] [facility] [address] [id number] [place] [address] March, [facility] [place] [facility] [address] [id number] [place] [address] March, [facility] [place] [facility] [address] [id number] [place] [address] March, [facility] [place] [facility] [address] [id number] [place] [address] March, [facility] [place] [facility] [address] [id number] [place] [address] 04 Feb, 2012 [facility] [address] [id number] [place] [address] Feb, [facility] [place] [facility] [address] [id number] [place] [address] 28 Jan, 2012 [facility] [place] [facility] [address] [id number] [place] [address] 27 Jan, 2012 [facility] [place] [facility] [address] [id number] [place] [address] 16 Jan, 2012 [facility] [place] [facility] [address] [id number] [place] [address] 05 Jan, 2012 [facility] [place] [facility] [address] [id number] [place] [address] 20 Dec, 2011 [facility] [place] [facility] [address] [id number] [place] [address] 16 Dec, 2011 [facility] [place] [facility] [address] [id number] [place] [address] 15 Dec, 2011 [facility] [place] [facility] [address] [id number] [place] [address] Nov, [facility] [place] [facility] [address] [id number] [place] [address] Oct, [facility] [place] [facility] [address] [id number] [place] [address] 15 Oct, 2011 [facility] [place] [facility] [address] [id number] [place] [address] 15 Oct, 2011 [facility] [place] [facility] [address] [facility] [id number] [place] [address] 14 Oct, 2011 [facility] [address] [id number] [place] [address] 14 Oct, 2011 [facility] [address] [id number] [place] [address] 12 Oct, 2011 [facility] [address] [id number] [place] [address] 09 Oct, 2011 [facility] [id number] [place] [address] Oct, [facility] [id number] [place] [address] Sep, [facility] [id number] [place] [address] Sep, [facility] [id number] [place] [address] Sep, [facility] [id number] [place] [address] Sep, [facility] [id number] [place] [address] Sep, [facility] [id number] [place] [address] Sep, [facility] [id number] [place] [address] Sep, [facility] [id number] [place] [address] Sep, [facility] [id number] [place] [address] Sep, [facility] [id number] [place] [address] Aug, [facility] [id number] [place] [address] Jul, [facility] [id number] [place] [address] Oct, [facility] [id number] [place] [address] Oct, [facility] [id number] [place] [address] Oct, IMMUNIZATIONS No Known Immunizations SOCIAL HISTORY [...]
--- OUTSIDE RECORDS SUMMARY | 2020-03-19 06:07 | XMS REPORT ---
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 47749423 Problem Chronic kidney disease, unspecified N18.9 Active 603652408 Problem Anemia, unspecified D64.9 Active 405696912 Problem Irritable bowel K58.9 Active 1074 3008 Problem Irritable bowel syndrome with diarrhea K58.0 Active 771121837 Problem Claudication I73.9 Active 5816848 6 Problem Intractable migraine without aura and with status migr ainosus G43.011 Active 274701474 Problem Peritoneal dialysis status Z99.2 Act moody 008219836 Problem Migraine without aura and without status migrain osus, not intractable G43.009 Active 422651593 Problem Other insomnia G47.09 Active 41186 2000 Problem Dysthymia F34.1 Active 07882637 Problem Chronic kidney disease, stage 4 (severe) N18.4 Active 445807799 Problem Migraine with aura and without status migrainosu s, not intractable G43.109 Active 1897929 Problem Autonomic neuropathy G90.9 Active 672316151 Problem Type 1 diabetes mellitus with complications E10.8 Active 492752426 Problem Menorrhagia with regular cycle N92.0 Active 688498447 Problem Other chronic pain G89.29 Active 8 4378307 Problem Lymphedema I89.0 Active 008842439 Problem Essential hypertension I10 Active 31613488 Problem Moderate episode of recurrent major depressive disorder F33.1 Active 065874663 Problem Type 1 diabetes mellitus without complications E10 .9 Active 296517109 Problem Primary insomnia F51.01 Active 397 2004 Problem Migraine G43.909 Active 65090215 Problem Low back pain M54.5 Active 096590 009 Problem Diastolic dysfunction I51.89 Active 2148839 Problem ESRF (end stage renal failure) N18.6 Active 10850392 Problem Restless legs G25.81 Active 109652 08 Problem Hyperthyroidism E05.90 Active 3448 6009 ALLERGIES No Information ENCOUNTERS Encounter Location Date Diagnosis [place] [address] [address] 16 Jan, 2020 [place] [address] [address] Oct, Restless legs G25.81 [place] [address] [address] 16 Oct, 2019 Encounter for Medicare annual wellness e xam Z00.00 ; 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 ; Migraine without aura and without status migrainosus, not intractable G43.009 ; Chronic kidney disease, stage 4 (severe) N18.4 ; Claudication I73.9 ; Peritoneal dialysis status Z99.2 ; Diastolic dysfunction I51.89 ; Primary insomnia F51.01 and Burn T30.0 [place] [address] [address] Sep, Moderate episode of recurrent major depr essive disorder F33.1 and Primary insomnia F51.01 [place] [address] [address] Aug, Hyperthyroidism E05.90 [place] [address] [address] May, Restless legs G25.81 [place] [address] [address] May, [place] [address] [address] May, [place] [address] [address] May, Type 1 diabetes mellitus with hypoglycem ia without coma E10.649 ; ESRF (end stage renal failure) N18.6 ; Leg cramps R25.2 ; Restless legs G25.81 and Low back pain M54.5 [facility] [address] [address] Apr, Low back pain M54.5 [facility] [address] [address] 07 Apr, 2019 [facility] [address] [address] March, Low back pain M54.5 [facility] [address] [address] March, [facility] [address] [address] Feb, Low back pain M54.5 [facility] [address] [address] Jan, Low back pain M54.5 [facility] [address] [address] Jan, [facility] [address] [address] Jan, [facility] [address] [address] Jan, [facility] [address] [address] Dec, Type 1 diabetes mellitus with hypoglycem ia without coma E10.649 and Low back pain M54.5 [facility] [address] [address] Dec, Low back pain M54.5 [facility] [address] [address] 13 Dec, 2018 Diastolic dysfunction I51.89 ; Essential hypertension I10 and Chronic kidney disease, stage 4 (severe) N18.4 [facility] [address] [address] Dec, RUQ abdominal pain R10.11 ; Type 1 diabe camryn mellitus without complications E10.9 ; Therapeutic drug monitoring Z51.81 ; Migraine with aura and without status migrainosus, not intractable G43.109 and Intractable migraine without aura and with status migrainosus G43.011 [place] [address] [address] Nov, Low back pain M54.5 [place] [address] [address] Nov, [place] [address] [address] Nov, Intractable migraine without aura and wi th status migrainosus G43.011 ; Lymphedema I89.0 ; Pain in right shoulder M25.511 ; Other chronic pain G89.29 ; Irritable bowel syndrome with diarrhea K58.0 ; Type 1 diabetes mellitus without complications E10.9 and Essential hypertension I10 [place] [address] [address] Oct, Low back pain M54.5 [place] [address] [address] Oct, [place] [address] [address] Oct, Orthostatic hypotension I95.1 ; Shortnes s of breath R06.02 ; Leg swelling M79.89 ; Type 1 diabetes mellitus without complications E10.9 and Claudication I73.9 [place] [address] [address] Sep, Low back pain M54.5 [place] [address] [address] Sep, Low back pain M54.5 [place] [address] [address] Aug, [place] [address] [address] Aug, Migraine without aura and without status migrainosus, not intractable G43.009 [facility] [address] [address] Aug, Low back pain M54.5 [facility] [address] [facility] [id number] [place] [address] Aug, Acute rhinosinusitis J01.90 and Sore throat J02.9 [facility] [address] [address] Jul, Low back pain M54.5 [facility] [address] [address] Jul, Migraine without aura and without status migrainosus, not intractable G43.009 [place] [address] [address] Jun, Low back pain M54.5 [facility] [address] [address] Jun, [facility] [address] [address] Jun, Orthostatic hypotension I95.1 ; Shortnes s of breath R06.02 ; Type 1 diabetes mellitus without complications E10.9 and Leg swelling M79.89 [facility] [address] [address] Jun, Low back pain M54.5 [facility] [address] [address] Jun, [facility] [address] [address] May, Migraine without aura and without status migrainosus, not intractable G43.009 [facility] [address] [address] May, Migraine without aura and without status migrainosus, not intractable G43.009 ; Restless legs syndrome G25.81 ; Leg cramps R25.2 ; Chronic kidney disease, unspecified N18.9 ; Postural hypotension I95.1 ; Diarrhea, unspecified type R19.7 and Cough R05 [facility] [address] [address] May, [facility] [address] [address] May, [facility] [address] [address] May, Orthostatic hypotension I95.1 ; Shortnes s of breath R06.02 ; Type 1 diabetes mellitus with complications E10.8 and Leg swelling M79.89 [facility] [address] [address] May, [facility] [address] [address] May, Low back pain M54.5 [facility] [address] [address] Apr, Type 1 diabetes mellitus with hyperglyce sebastian E10.65 [facility] [address] [address] Apr, Low back pain M54.5 [facility] [address] [address] Apr, [facility] [address] [address] Apr, [facility] [address] [address] March, [facility] [address] [address] March, Low back pain M54.5 [facility] [address] [address] March, [facility] [address] [address] Feb, [facility] [address] [address] Feb, Low back pain M54.5 [place] [address] [address] Jan, Restless legs syndrome G25.81 [place] [address] [address] Jan, Low back pain M54.5 [place] [address] [address] Jan, [place] [address] [address] Jan, Type 1 diabetes mellitus without complic ations E10.9 ; Low back pain M54.5 ; Cough R05 ; Diarrhea, unspecified type R19.7 ; Migraine without aura and without status migrainosus, not intractable G43.009 and Uses control Z30.9 [place] [address] [address] Dec, Low back pain M54.5 [place] [address] [address] Dec, [place] [address] [address] Nov, Well woman exam Z01.419 ; Menorrhagia wi th regular cycle N92.0 ; Vaginal dryness N89.8 and Migraine with aura and without status migrainosus, not intractable G43.109 [place] [address] [address] Nov, [place] [address] [address] Nov, Low back pain M54.5 [place] [address] [address] Oct, Low back pain M54.5 [place] [address] [address] Oct, Migraine without aura and without status migrainosus, not intractable G43.009 [facility] [address] [address] Sep, Low back pain M54.5 [facility] [address] [address] Sep, [facility] [address] [address] Sep, Migraine without aura and without status migrainosus, not intractable G43.009 [facility] [address] [address] Sep, Type 1 diabetes mellitus with hypoglycem ia without coma E10.649 ; Anemia D64.9 ; Migraine without aura and without status migrainosus, not intractable G43.009 ; Chronic kidney disease, unspecified N18.9 ; Autonomic neuropathy G90.9 and Postural hypotension I95.1 [facility] [address] [address] Sep, Low back pain M54.5 [facility] [address] [address] Aug, Low back pain M54.5 [facility] [address] [address] 14 Jul, 2017 [facility] [address] [address] Jul, Low back pain M54.5 [facility] [address] [address] Jun, [facility] [address] [address] Jun, Low back pain M54.5 [facility] [address] [address] Jun, Migraine without aura and without status migrainosus, not intractable G43.009 [facility] [address] [address] Jun, Type 1 diabetes mellitus with hyperglyce sebastian E10.65 ; Dysthymia F34.1 and Migraine without aura and without status migrainosus, not intractable G43.009 [facility] [address] [address] Jun, [facility] [address] [address] May, Type 1 diabetes mellitus with hyperglyce sebastian E10.65 [facility] [address] [address] May, Low back pain M54.5 [place] [address] [address] May, Type 1 diabetes mellitus with hyperglyce sebastian E10.65 [place] [address] [address] Apr, [place] [address] [address] Apr, Chronic kidney disease, stage 4 (severe) N18.4 [place] [address] [address] Apr, Low back pain M54.5 [place] [address] [address] March, [place] [address] [address] March, Low back pain M54.5 [place] [address] [address] Feb, [place] [address] [address] Feb, [place] [address] [address] Feb, Low back pain M54.5 [place] [address] [address] Feb, Low back pain M54.5 [facility] [address] [address] Feb, Migraine without aura and without status migrainosus, not intractable G43.009 [facility] [address] [address] Feb, [place] [address] [address] Jan, Low back pain M54.5 [place] [address] [address] Jan, Type 1 diabetes mellitus without complic ations E10.9 ; Anemia D64.9 ; Chronic kidney disease, unspecified N18.9 ; Migraine without aura and without status migrainosus, not intractable G43.009 and Other insomnia G47.09 [place] [address] [address] Jan, [place] [address] [address] Dec, Low back pain M54.5 [place] [address] [address] Dec, [place] [address] [address] Dec, [place] [address] [address] 08 Dec, 2016 Shortness of breath R06.02 ; Type 1 diab etes mellitus without complications E10.9 and Leg swelling M79.89 [place] [address] [address] Nov, Low back pain M54.5 [place] [address] [address] Nov, Viral syndrome B34.9 [place] [address] [address] Oct, Low back pain M54.5 [facility] [address] [address] 15 Oct, 2016 [facility] [address] [address] Oct, Low back pain M54.5 [facility] [address] [address] Sep, [facility] [address] [address] Sep, Fatigue, unspecified type R53.83 ; Type 1 diabetes mellitus without complications E10.9 and Anemia D64.9 [place] [address] [address] Sep, Low back pain M54.5 [place] [address] [address] Sep, Type 1 diabetes mellitus with hyperglyce sebastian E10.65 [place] [address] [address] Aug, Type 1 diabetes mellitus without complic ations E10.9 [place] [address] [address] Aug, [place] [address] [address] Aug, [place] [address] [address] Jul, [facility] [address] [address] 14 Jul, 2016 Low back pain M54.5 [facility] [address] [address] 12 Jul, 2016 Hyperkalemia, diminished renal excretion E87.5 [facility] [address] [address] 09 Jul, 2016 Hyperkalemia, diminished renal excretion E87.5 [facility] [address] [address] Jun, [facility] [address] [address] Jun, Low back pain M54.5 [facility] [address] [address] Jun, Anemia D64.9 ; Autonomic neuropathy G90. 9 and Postural hypotension I95.1 [facility] [address] [address] Jun, [facility] [address] [address] May, Type 1 diabetes mellitus with complicati ons E10.8 and Anemia D64.9 [facility] [address] [address] May, Low back pain M54.5 [facility] [address] [address] Apr, [facility] [address] [address] Apr, Low back pain M54.5 [facility] [address] [address] Apr, [facility] [address] [address] Apr, [facility] [address] [address] March, Low back pain M54.5 and Other chronic pa in G89.29 [facility] [address] [address] March, Type 1 diabetes mellitus without complic ations E10.9 [facility] [address] [address] March, [facility] [address] [address] March, [facility] [address] [address] Feb, [facility] [address] [address] Feb, Type 1 diabetes mellitus without complic ations E10.9 [place] [address] [address] Feb, Trochanteric bursitis, right hip M70.61 [place] [address] [address] Jan, [place] [address] [address] Jan, [place] [address] [address] Dec, Type 1 diabetes mellitus with complicati ons E10.8 [place] [address] [address] Dec, [place] [address] [address] Dec, Anemia D64.9 ; Autonomic neuropathy G90. 9 and Postural hypotension I95.1 [place] [address] [address] Dec, [place] [address] [address] Nov, Sore throat J02.9 [place] [address] [address] Nov, Type 1 diabetes mellitus with complicati ons E10.8 [place] [address] [address] Nov, Type 1 diabetes mellitus with diabetic n ephropathy E10.21 ; Proteinuria, unspecified R80.9 and Chronic kidney disease, unspecified N18.9 [place] [address] [address] Nov, [place] [address] [place] [id number] [place] [address] Nov, Trochanteric bursitis, right hip M70.61 [facility] [address] [place] [id number] [place] [address] Nov, [facility] [address] [place] [id number] [place] [address] Oct, [facility] [address] [address] Oct, [facility] [address] [place] [id number] [place] [address] Oct, [facility] [address] [address] Sep, [facility] [address] [place] [id number] [place] [address] Sep, [facility] [address] [address] Sep, Type 2 diabetes mellitus with complicati on E11.8 and Right hip pain M25.551 [facility] [address] [address] Sep, [facility] [address] [address] Aug, [facility] [address] [place] [id number] [place] [address] Aug, [facility] [address] [address] Aug, [facility] [address] [place] [id number] [place] [address] Aug, Type 1 diabetes mellitus without complic ations E10.9 [facility] [address] [place] [id number] [place] [address] 16 Jul, 2015 [facility] [address] [address] 15 Jul, 2015 [facility] [address] [place] [address] Jul, [facility] [address] [address] Jun, [facility] [address] [address] Jun, [facility] [address] [address] Jun, [facility] [address] [address] Jun, [facility] [address] [address] Jun, [facility] [address] [address] Jun, Diabetes mellitus without mention of com plication, type I [juvenile type], not stated as uncontrolled 250.01 [facility] [address] [address] May, [facility] [address] [address] May, [facility] [address] [address] May, [facility] [address] [address] May, Autonomic neuropathy 337.9 ; Postural hy potension 458.0 and Anemia 285.9 [facility] [address] [address] May, [facility] [address] [address] Apr, [facility] [address] [address] Apr, [facility] [address] [address] Apr, [facility] [address] [address] Apr, [facility] [place] [facility] [address] [facility] [id number] [facility] [place] [address] Apr, [facility] [place] [facility] [address] [facility] [id number] [facility] [place] [address] March, [facility] [place] [facility] [address] [id number] [place] [address] March, [facility] [place] [facility] [address] [id number] [facility] [place] [address] March, [facility] [place] [facility] [address] [facility] [id number] [facility] [place] [address] March, [facility] [place] [facility] [address] [id number] [place] [address] March, [facility] [place] [facility] [address] [id number] [place] [address] Feb, [facility] [place] [facility] [address] [id number] [place] [address] Feb, [facility] [place] [facility] [address] [id number] [place] [address] Feb, [facility] [place] [facility] [address] [id number] [place] [address] 30 Jan, 2015 [facility] [place] [facility] [address] [id number] [place] [address] Jan, [facility] [place] [facility] [address] [id number] [place] [address] 24 Jan, 2015 [facility] [place] [facility] [address] [id number] [place] [address] Jan, [facility] [place] [facility] [address] [facility] [id number] [place] [address] Jan, [facility] [place] [facility] [address] [id number] [place] [address] Jan, [facility] [place] [facility] [address] [id number] [place] [address] Jan, [facility] [place] [facility] [address] [id number] [place] [address] Jan, [facility] [place] [facility] [address] [id number] [place] [address] Jan, [facility] [place] [facility] [address] [id number] [place] [address] Jan, [facility] [place] [facility] [address] [id number] [place] [address] Jan, [facility] [place] [facility] [address] [id number] [place] [address] Jan, [facility] [place] [facility] [address] [id number] [place] [address] Jan, [facility] [address] [id number] [place] [address] Dec, [facility] [address] [id number] [place] [address] Dec, [facility] [address] [id number] [place] [address] Dec, [facility] [address] [id number] [place] [address] Dec, [facility] [address] [id number] [place] [address] Dec, [facility] [address] [id number] [place] [address] Dec, [facility] [address] [id number] [place] [address] Dec, [facility] [address] [id number] [place] [address] Dec, [facility] [address] [id number] [place] [address] Nov, [facility] [address] [id number] [place] [address] Nov, [facility] [address] [id number] [place] [address] Nov, [facility] [address] [id number] [place] [address] Nov, [facility] [address] [id number] [place] [address] Nov, [facility] [address] [id number] [place] [address] Nov, [facility] [address] [id number] [place] [address] Nov, [facility] [address] [id number] [place] [address] Nov, [facility] [address] [id number] [place] [address] Nov, [facility] [address] [id number] [place] [address] Oct, [facility] [address] [id number] [place] [address] Oct, [facility] [address] [id number] [place] [address] Oct, [facility] [address] [id number] [place] [address] Oct, [facility] [address] [id number] [place] [address] Oct, [facility] [place] [facility] [address] [id number] [place] [address] Oct, [facility] [place] [facility] [address] [id number] [place] [address] Oct, [facility] [place] [facility] [address] [id number] [place] [address] Oct, [facility] [place] [facility] [address] [id number] [place] [address] Oct, [facility] [place] [facility] [address] [id number] [place] [address] Oct, [facility] [place] [facility] [address] [id number] [place] [address] Oct, [facility] [place] [facility] [address] [id number] [place] [address] Oct, [facility] [place] [facility] [address] [id number] [place] [address] Oct, [facility] [place] [facility] [address] [id number] [place] [address] Oct, [facility] [place] [facility] [address] [id number] [place] [address] Sep, [facility] [place] [facility] [address] [id number] [place] [address] Sep, [facility] [place] [facility] [address] [id number] [place] [address] Sep, [facility] [place] [facility] [address] [id number] [place] [address] Sep, [facility] [place] [facility] [address] [id number] [place] [address] Aug, [facility] [place] [facility] [address] [id number] [place] [address] Aug, [facility] [place] [facility] [address] [id number] [place] [address] Aug, [facility] [place] [facility] [address] [id number] [place] [address] Aug, [facility] [place] [facility] [address] [id number] [place] [address] Aug, [facility] [place] [facility] [address] [id number] [place] [address] Aug, [facility] [place] [facility] [address] [id number] [place] [address] Aug, [facility] [place] [facility] [address] [id number] [place] [address] Aug, [facility] [place] [facility] [address] [id number] [place] [address] Aug, [facility] [place] [facility] [address] [id number] [place] [address] 02 Oct, 2013 [facility] [place] [facility] [address] [id number] [place] [address] 29 Sep, 2013 [facility] [place] [facility] [address] [id number] [place] [address] 29 Sep, 2013 [facility] [place] [facility] [address] [id number] [place] [address] 29 Sep, 2013 [facility] [place] [facility] [address] [facility] [id number] [place] [address] 29 Sep, 2013 [facility] [place] [facility] [address] [id number] [place] [address] 22 Sep, 2013 [facility] [place] [facility] [address] [id number] [place] [address] 22 Sep, 2013 [facility] [place] [facility] [address] [id number] [place] [address] 19 Sep, 2013 [facility] [place] [facility] [address] [id number] [place] [address] 19 Sep, 2013 [facility] [place] [facility] [address] [id number] [place] [address] 11 Sep, 2013 [facility] [place] [facility] [address] [id number] [place] [address] 11 Sep, 2013 [facility] [place] [facility] [address] [id number] [place] [address] 10 Sep, 2013 [facility] [place] [facility] [address] [id number] [place] [address] 10 Sep, 2013 [facility] [place] [facility] [address] [id number] [place] [address] 08 Sep, 2013 [facility] [place] [facility] [address] [id number] [place] [address] 08 Sep, 2013 [facility] [place] [facility] [address] [id number] [place] [address] 03 Sep, 2013 [facility] [place] [facility] [address] [id number] [place] [address] 03 Sep, 2013 [facility] [place] [facility] [address] [id number] [place] [address] Jul, 2013 [facility] [place] [facility] [address] [id number] [place] [address] Jul, [facility] [place] [facility] [address] [facility] [id number] [facility] [address] Jun, [facility] [place] [facility] [address] [id number] [place] [address] Jun, [facility] [place] [facility] [address] [id number] [place] [address] Jun, [facility] [place] [facility] [address] [id number] [place] [address] Jun, [facility] [place] [facility] [address] [facility] [id number] [facility] [address] Jun, [facility] [place] [facility] [address] [id number] [facility] [address] Jun, [facility] [place] [facility] [address] [facility] [id number] [place] [address] Jun, [facility] [place] [facility] [address] [id number] [facility] [address] Jun, [facility] [place] [facility] [address] [facility] [id number] [facility] [address] Jun, [facility] [place] [facility] [address] [id number] [facility] [address] Jun, [facility] [place] [facility] [address] [id number] [facility] [address] Jun, [facility] [place] [facility] [address] [id number] [facility] [address] Jun, [facility] [place] [facility] [address] [facility] [id number] [place] [address] Jun, [facility] [place] [facility] [address] [id number] [facility] [address] Jun, [facility] [place] [facility] [address] [id number] [place] [address] Jun, [facility] [place] [facility] [address] [facility] [id number] [facility] [address] May, [facility] [place] [facility] [address] [facility] [id number] [place] [address] May, [facility] [place] [facility] [address] [id number] [place] [address] May, [facility] [place] [facility] [address] [id number] [place] [address] May, [facility] [place] [facility] [address] [facility] [id number] [place] [address] May, [facility] [place] [facility] [address] [id number] [place] [address] May, [facility] [place] [facility] [address] [id number] [place] [address] May, [facility] [place] [facility] [address] [id number] [place] [address] May, [facility] [place] [facility] [address] [id number] [place] [address] Apr, [facility] [place] [facility] [address] [id number] [place] [address] Apr, [facility] [place] [facility] [address] [id number] [place] [address] Apr, [facility] [place] [facility] [address] [id number] [place] [address] Apr, [facility] [place] [facility] [address] [facility] [id number] [place] [address] Apr, [facility] [place] [facility] [address] [id number] [place] [address] Apr, [facility] [place] [facility] [address] [id number] [place] [address] Apr, [facility] [place] [facility] [address] [id number] [place] [address] Apr, [facility] [place] [facility] [address] [facility] [id number] [place] [address] Apr, [facility] [place] [facility] [address] [id number] [place] [address] Apr, [facility] [place] [facility] [address] [id number] [place] [address] Apr, [facility] [place] [facility] [address] [id number] [place] [address] Apr, [facility] [place] [facility] [address] [facility] [id number] [place] [address] Apr, [facility] [place] [facility] [address] [id number] [place] [address] Apr, [facility] [place] [facility] [address] [id number] [place] [address] Apr, [facility] [place] [facility] [address] [id number] [place] [address] Apr, [facility] [place] [facility] [address] [id number] [place] [address] Apr, [facility] [place] [facility] [address] [id number] [place] [address] Apr, [facility] [place] [facility] [address] [id number] [place] [address] March, [facility] [place] [facility] [address] [id number] [place] [address] March, [facility] [place] [facility] [address] [id number] [place] [address] March, [facility] [place] [facility] [address] [id number] [place] [address] March, [facility] [place] [facility] [address] [id number] [place] [address] March, [facility] [place] [facility] [address] [id number] [place] [address] March, [facility] [place] [facility] [address] [id number] [place] [address] March, [facility] [place] [facility] [address] [id number] [facility] [address] March, [facility] [place] [facility] [address] [facility] [id number] [place] [address] March, [facility] [place] [facility] [address] [id number] [facility] [address] Feb, [facility] [place] [facility] [address] [id number] [place] [address] Feb, [facility] [place] [facility] [address] [facility] [id number] [place] [address] Feb, [facility] [place] [facility] [address] [id number] [facility] [address] Feb, [facility] [place] [facility] [address] [id number] [facility] [address] Feb, [facility] [place] [facility] [address] [id number] [place] [facility] [place] [address] Feb, [facility] [place] [facility] [address] [id number] [facility] [address] Feb, [facility] [place] [facility] [address] [id number] [facility] [place] [address] Feb, [facility] [place] [facility] [address] [id number] [place] [address] Feb, [facility] [place] [facility] [address] [id number] [place] [address] Feb, [facility] [place] [facility] [address] [id number] [facility] [address] Feb, [facility] [place] [facility] [address] [id number] [facility] [address] Feb, [facility] [place] [facility] [address] [id number] [place] [address] Feb, [facility] [place] [facility] [address] [id number] [facility] [address] Jan, [facility] [place] [facility] [address] [id number] [place] [address] Jan, [facility] [place] [facility] [address] [facility] [id number] [facility] [address] Jan, [facility] [place] [facility] [address] [facility] [id number] [facility] [address] Jan, [facility] [place] [facility] [address] [id number] [facility] [address] Jan, [facility] [place] [facility] [address] [facility] [id number] [facility] [address] Jan, [facility] [place] [facility] [address] [facility] [id number] [facility] [address] Jan, [facility] [place] [facility] [address] [id number] [place] [address] Jan, [facility] [place] [facility] [address] [id number] [place] [address] Dec, [facility] [place] [facility] [address] [id number] [place] [address] Dec, [facility] [place] [facility] [address] [id number] [facility] [address] Dec, [facility] [place] [facility] [address] [id number] [place] [address] Dec, [facility] [place] [facility] [address] [id number] [place] [address] Dec, [facility] [place] [facility] [address] [id number] [place] [address] Dec, [facility] [place] [facility] [address] [facility] [id number] [place] [address] Dec, [facility] [place] [facility] [address] [id number] [place] [address] Dec, [facility] [place] [facility] [address] [id number] [place] [address] Dec, [facility] [place] [facility] [address] [id number] [place] [address] Dec, [facility] [place] [facility] [address] [id number] [place] [address] Nov, [facility] [place] [facility] [address] [id number] [place] [address] Nov, [facility] [place] [facility] [address] [id number] [place] [address] Nov, [facility] [place] [facility] [address] [id number] [place] [address] Nov, [facility] [place] [facility] [address] [id number] [place] [address] Nov, [facility] [place] [facility] [address] [id number] [place] [address] Nov, [facility] [place] [facility] [address] [id number] [place] [address] Nov, [facility] [place] [facility] [address] [id number] [place] [address] Nov, [facility] [place] [facility] [address] [id number] [place] [address] Nov, [facility] [place] [facility] [address] [id number] [place] [address] Nov, [facility] [place] [facility] [address] [id number] [place] [address] Oct, [facility] [place] [facility] [address] [id number] [place] [address] Oct, [facility] [place] [facility] [address] [id number] [place] [address] 18 Oct, 2013 [facility] [place] [facility] [address] [id number] [place] [address] 18 Oct, 2013 [facility] [place] [facility] [address] [id number] [place] [address] Oct, [facility] [place] [facility] [address] [id number] [place] [address] Oct, [facility] [place] [facility] [address] [id number] [place] [address] 16 Oct, 2012 [facility] [place] [facility] [address] [id number] [place] [address] 16 Oct, 2013 [facility] [place] [facility] [address] [id number] [place] [address] Oct, [facility] [place] [facility] [address] [id number] [place] [address] Oct, [facility] [place] [facility] [address] [id number] [place] [address] Oct, [facility] [place] [facility] [address] [id number] [place] [address] Oct, [facility] [place] [facility] [address] [id number] [place] [address] Oct, [facility] [place] [facility] [address] [id number] [place] [address] Oct, [facility] [place] [facility] [address] [id number] [place] [address] Sep, [facility] [place] [facility] [address] [id number] [place] [address] Sep, [facility] [place] [facility] [id number] [place] [address] Sep, [facility] [place] [facility] [address] [id number] [place] [address] 18 Sep, 2013 [facility] [place] [facility] [address] [id number] [place] [address] Sep, [facility] [place] [facility] [address] [id number] [place] [address] Sep, [facility] [place] [facility] [address] [id number] [place] [address] 31 Aug, 2013 [facility] [place] [facility] [address] [id number] [place] [address] 31 Aug, 2013 [facility] [place] [facility] [address] [id number] [place] [address] 17 Aug, 2013 [facility] [place] [facility] [address] [id number] [place] [address] 17 Aug, 2012 [facility] [place] [facility] [address] [id number] [place] [address] 10 Aug, 2012 [facility] [place] [facility] [address] [id number] [place] [address] 10 Aug, 2012 [facility] [place] [facility] [address] [id number] [place] [address] 07 Aug, 2012 [facility] [place] [facility] [address] [id number] [place] [address] 02 Aug, 2012 [facility] [place] [facility] [address] [id number] [place] [address] 02 Aug, 2012 [facility] [place] [facility] [address] [id number] [place] [address] 25 Sep, 2012 [facility] [place] [facility] [address] [id number] [place] [address] 23 Sep, 2012 [facility] [place] [facility] [address] [id number] [place] [address] 21 Sep, 2012 [facility] [place] [facility] [address] [id number] [place] [address] 20 Sep, 2012 [facility] [place] [facility] [address] [id number] [place] [address] 18 Sep, 2012 [facility] [place] [facility] [address] [id number] [place] [address] 17 Sep, 2012 [facility] [place] [facility] [address] [id number] [place] [address] 16 Sep, 2012 [facility] [place] [facility] [address] [id number] [place] [address] 11 Sep, 2012 [facility] [place] [facility] [address] [id number] [place] [address] 09 Sep, 2012 [facility] [place] [facility] [address] [id number] [place] [address] 09 Sep, 2012 [facility] [place] [facility] [address] [id number] [place] [address] 06 Sep, 2013 [facility] [place] [facility] [address] [id number] [facility] [place] [address] Jul, [facility] [place] [facility] [address] [id number] [place] [address] Jun, [facility] [place] [facility] [address] [facility] [id number] [facility] [place] [address] Jun, [facility] [place] [facility] [address] [id number] [place] [address] Jun, [facility] [place] [facility] [address] [id number] [place] [address] Jun, [facility] [place] [facility] [address] [id number] [facility] [place] [address] Jun, [facility] [place] [facility] [address] [facility] [id number] [facility] [place] [address] Jun, [facility] [place] [facility] [address] [id number] [facility] [address] Jun, [facility] [place] [facility] [address] [facility] [id number] [facility] [address] Jun, [facility] [place] [facility] [address] [id number] [facility] [address] Jun, [facility] [place] [facility] [address] [id number] [facility] [address] May, [facility] [place] [facility] [address] [id number] [place] [address] May, [facility] [place] [facility] [address] [facility] [id number] [facility] [address] May, [facility] [place] [facility] [address] [id number] [facility] [address] May, [facility] [place] [facility] [address] [facility] [id number] [facility] [address] May, [facility] [place] [facility] [address] [id number] [facility] [address] May, [facility] [place] [facility] [address] [id number] [place] [address] May, [facility] [place] [facility] [address] [id number] [place] [address] March, [facility] [place] [facility] [address] [id number] [place] [address] March, [facility] [place] [facility] [address] [id number] [place] [address] March, [facility] [place] [facility] [address] [id number] [place] [address] Dec, [facility] [place] [facility] [address] [id number] [place] [address] Nov, [facility] [place] [facility] [address] [id number] [place] [address] Aug, [facility] [place] [facility] [address] [id number] [place] [address] Aug, [facility] [place] [facility] [address] [id number] [place] [address] Jun, [facility] [place] [facility] [address] [id number] [place] [address] Jun, [facility] [place] [facility] [address] [id number] [place] [address] Jun, [facility] [place] [facility] [address] [id number] [place] [address] Jun, [facility] [place] [facility] [address] [id number] [place] [address] May, [facility] [place] [facility] [address] [id number] [place] [address] May, [facility] [place] [facility] [address] [id number] [place] [address] May, [facility] [place] [facility] [address] [id number] [place] [address] May, [facility] [place] [facility] [address] [id number] [place] [address] May, [facility] [place] [facility] [address] [id number] [place] [address] May, [facility] [place] [facility] [address] [id number] [place] [address] May, [facility] [place] [facility] [address] [id number] [place] [address] Apr, [facility] [place] [facility] [address] [id number] [place] [address] Apr, [facility] [place] [facility] [address] [id number] [place] [address] Apr, [facility] [place] [facility] [address] [id number] [place] [address] Apr, [facility] [place] [facility] [address] [id number] [place] [address] March, [facility] [place] [facility] [address] [id number] [place] [address] March, [facility] [place] [facility] [address] [id number] [place] [address] March, [facility] [place] [facility] [address] [id number] [place] [address] March, [facility] [place] [facility] [address] [id number] [place] [address] March, [facility] [place] [facility] [address] [id number] [place] [address] March, [facility] [place] [facility] [address] [facility] [id number] [place] [address] March, [facility] [address] [id number] [place] [address] March, [facility] [address] [id number] [place] [address] March, [facility] [address] [id number] [place] [address] Feb, [facility] [address] [id number] [place] [address] Feb, [facility] [address] [id number] [place] [address] 28 Jan, 2012 [facility] [address] [id number] [place] [address] 27 Jan, 2012 [facility] [address] [id number] [place] [address] 16 Jan, 2012 [facility] [address] [id number] [place] [address] 05 Jan, 2012 [facility] [address] [id number] [place] [address] 20 Dec, 2011 [facility] [address] [id number] [place] [address] 16 Dec, 2011 [facility] [address] [id number] [place] [address] 15 Dec, 2011 [facility] [address] [id number] [place] [address] Nov, [facility] [address] [id number] [place] [address] Oct, [facility] [address] [id number] [place] [address] 15 Oct, 2011 [facility] [address] [id number] [place] [address] 15 Oct, 2011 [facility] [address] [id number] [place] [address] 14 Oct, 2011 [facility] [address] [id number] [place] [address] 14 Oct, 2011 [facility] [address] [id number] [place] [address] Oct, [facility] [address] [id number] [place] [address] 09 Oct, 2011 [facility] [address] [id number] [place] [address] Oct, [facility] [id number] [place] [address] 22 Sep, 2011 [facility] [id number] [place] [address] Sep, [facility] [id number] [place] [address] 14 Sep, 2011 [facility] [id number] [place] [address] Sep, [facility] [address] [address] Sep, [facility] [id number] [place] [address] Sep, [facility] [address] [address] Sep, [facility] [id number] [place] [address] Sep, [facility] [address] [address] Sep, [facility] [id number] [place] [address] Aug, [facility] [address] [address] Jul, [facility] [address] [address] Oct, [facility] [id number] [place] [address] Oct, [facility] [id number] [place] [address] Oct, IMMUNIZATIONS No Known Immunizations SOCIAL HISTORY [...]
--- OUTSIDE RECORDS SUMMARY | 2020-03-19 06:07 | XMS REPORT ---
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 39221196 Problem Chronic kidney disease, unspecified N18.9 Active 562056643 Problem Anemia, unspecified D64.9 Active 152824416 Problem Irritable bowel K58.9 Active 1074 3008 Problem Irritable bowel syndrome with diarrhea K58.0 Active 571147756 Problem Claudication I73.9 Active 2617153 6 Problem Intractable migraine without aura and with status migr ainosus G43.011 Active 917717376 Problem Peritoneal dialysis status Z99.2 Act moody 285621346 Problem Migraine without aura and without status migrain osus, not intractable G43.009 Active 998851917 Problem Other insomnia G47.09 Active 18008 2000 Problem Dysthymia F34.1 Active 38980253 Problem Chronic kidney disease, stage 4 (severe) N18.4 Active 044486400 Problem Migraine with aura and without status migrainosu s, not intractable G43.109 Active 2430202 Problem Autonomic neuropathy G90.9 Active 730628725 Problem Type 1 diabetes mellitus with complications E10.8 Active 929524072 Problem Menorrhagia with regular cycle N92.0 Active 663273259 Problem Other chronic pain G89.29 Active 8 8743009 Problem Lymphedema I89.0 Active 515209622 Problem Essential hypertension I10 Active 59368008 Problem Moderate episode of recurrent major depressive disorder F33.1 Active 289779308 Problem Type 1 diabetes mellitus without complications E10 .9 Active 850882863 Problem Primary insomnia F51.01 Active 397 2004 Problem Migraine G43.909 Active 36822974 Problem Low back pain M54.5 Active 036501 009 Problem Diastolic dysfunction I51.89 Active 7404498 Problem ESRF (end stage renal failure) N18.6 Active 69451738 Problem Restless legs G25.81 Active 805599 08 Problem Hyperthyroidism E05.90 Active 3448 6009 ALLERGIES No Information ENCOUNTERS Encounter Location Date Diagnosis [place] [address] [address] 16 Jan, 2020 [place] [address] [address] Oct, Restless legs G25.81 [place] [address] [address] 16 Oct, 2019 Encounter for Medicare annual wellness e xam Z00.00 ; 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 ; Migraine without aura and without status migrainosus, not intractable G43.009 ; Chronic kidney disease, stage 4 (severe) N18.4 ; Claudication I73.9 ; Peritoneal dialysis status Z99.2 ; Diastolic dysfunction I51.89 ; Primary insomnia F51.01 and Burn T30.0 [place] [address] [address] Sep, Moderate episode of recurrent major depr essive disorder F33.1 and Primary insomnia F51.01 [place] [address] [address] Aug, Hyperthyroidism E05.90 [place] [address] [address] May, Restless legs G25.81 [place] [address] [address] May, [place] [address] [address] May, [place] [address] [address] May, Type 1 diabetes mellitus with hypoglycem ia without coma E10.649 ; ESRF (end stage renal failure) N18.6 ; Leg cramps R25.2 ; Restless legs G25.81 and Low back pain M54.5 [facility] [address] [address] Apr, Low back pain M54.5 [facility] [address] [address] 07 Apr, 2019 [facility] [address] [address] March, Low back pain M54.5 [facility] [address] [address] March, [facility] [address] [address] Feb, Low back pain M54.5 [facility] [address] [address] Jan, Low back pain M54.5 [facility] [address] [address] Jan, [facility] [address] [address] Jan, [facility] [address] [address] Jan, [facility] [address] [address] Dec, Type 1 diabetes mellitus with hypoglycem ia without coma E10.649 and Low back pain M54.5 [facility] [address] [address] Dec, Low back pain M54.5 [facility] [address] [address] 13 Dec, 2018 Diastolic dysfunction I51.89 ; Essential hypertension I10 and Chronic kidney disease, stage 4 (severe) N18.4 [facility] [address] [address] Dec, RUQ abdominal pain R10.11 ; Type 1 diabe camryn mellitus without complications E10.9 ; Therapeutic drug monitoring Z51.81 ; Migraine with aura and without status migrainosus, not intractable G43.109 and Intractable migraine without aura and with status migrainosus G43.011 [place] [address] [address] Nov, Low back pain M54.5 [place] [address] [address] Nov, [place] [address] [address] Nov, Intractable migraine without aura and wi th status migrainosus G43.011 ; Lymphedema I89.0 ; Pain in right shoulder M25.511 ; Other chronic pain G89.29 ; Irritable bowel syndrome with diarrhea K58.0 ; Type 1 diabetes mellitus without complications E10.9 and Essential hypertension I10 [place] [address] [address] Oct, Low back pain M54.5 [place] [address] [address] Oct, [place] [address] [address] Oct, Orthostatic hypotension I95.1 ; Shortnes s of breath R06.02 ; Leg swelling M79.89 ; Type 1 diabetes mellitus without complications E10.9 and Claudication I73.9 [place] [address] [address] Sep, Low back pain M54.5 [place] [address] [address] Sep, Low back pain M54.5 [place] [address] [address] Aug, [place] [address] [address] Aug, Migraine without aura and without status migrainosus, not intractable G43.009 [facility] [address] [address] Aug, Low back pain M54.5 [facility] [address] [facility] [id number] [place] [address] Aug, Acute rhinosinusitis J01.90 and Sore throat J02.9 [facility] [address] [address] Jul, Low back pain M54.5 [facility] [address] [address] Jul, Migraine without aura and without status migrainosus, not intractable G43.009 [place] [address] [address] Jun, Low back pain M54.5 [facility] [address] [address] Jun, [facility] [address] [address] Jun, Orthostatic hypotension I95.1 ; Shortnes s of breath R06.02 ; Type 1 diabetes mellitus without complications E10.9 and Leg swelling M79.89 [facility] [address] [address] Jun, Low back pain M54.5 [facility] [address] [address] Jun, [facility] [address] [address] May, Migraine without aura and without status migrainosus, not intractable G43.009 [facility] [address] [address] May, Migraine without aura and without status migrainosus, not intractable G43.009 ; Restless legs syndrome G25.81 ; Leg cramps R25.2 ; Chronic kidney disease, unspecified N18.9 ; Postural hypotension I95.1 ; Diarrhea, unspecified type R19.7 and Cough R05 [facility] [address] [address] May, [facility] [address] [address] May, [facility] [address] [address] May, Orthostatic hypotension I95.1 ; Shortnes s of breath R06.02 ; Type 1 diabetes mellitus with complications E10.8 and Leg swelling M79.89 [facility] [address] [address] May, [facility] [address] [address] May, Low back pain M54.5 [facility] [address] [address] Apr, Type 1 diabetes mellitus with hyperglyce sebastian E10.65 [facility] [address] [address] Apr, Low back pain M54.5 [facility] [address] [address] Apr, [facility] [address] [address] Apr, [facility] [address] [address] March, [facility] [address] [address] March, Low back pain M54.5 [facility] [address] [address] March, [facility] [address] [address] Feb, [facility] [address] [address] Feb, Low back pain M54.5 [place] [address] [address] Jan, Restless legs syndrome G25.81 [place] [address] [address] Jan, Low back pain M54.5 [place] [address] [address] Jan, [place] [address] [address] Jan, Type 1 diabetes mellitus without complic ations E10.9 ; Low back pain M54.5 ; Cough R05 ; Diarrhea, unspecified type R19.7 ; Migraine without aura and without status migrainosus, not intractable G43.009 and Uses control Z30.9 [place] [address] [address] Dec, Low back pain M54.5 [place] [address] [address] Dec, [place] [address] [address] Nov, Well woman exam Z01.419 ; Menorrhagia wi th regular cycle N92.0 ; Vaginal dryness N89.8 and Migraine with aura and without status migrainosus, not intractable G43.109 [place] [address] [address] Nov, [place] [address] [address] Nov, Low back pain M54.5 [place] [address] [address] Oct, Low back pain M54.5 [place] [address] [address] Oct, Migraine without aura and without status migrainosus, not intractable G43.009 [facility] [address] [address] Sep, Low back pain M54.5 [facility] [address] [address] Sep, [facility] [address] [address] Sep, Migraine without aura and without status migrainosus, not intractable G43.009 [facility] [address] [address] Sep, Type 1 diabetes mellitus with hypoglycem ia without coma E10.649 ; Anemia D64.9 ; Migraine without aura and without status migrainosus, not intractable G43.009 ; Chronic kidney disease, unspecified N18.9 ; Autonomic neuropathy G90.9 and Postural hypotension I95.1 [facility] [address] [address] Sep, Low back pain M54.5 [facility] [address] [address] Aug, Low back pain M54.5 [facility] [address] [address] 14 Jul, 2017 [facility] [address] [address] Jul, Low back pain M54.5 [facility] [address] [address] Jun, [facility] [address] [address] Jun, Low back pain M54.5 [facility] [address] [address] Jun, Migraine without aura and without status migrainosus, not intractable G43.009 [facility] [address] [address] Jun, Type 1 diabetes mellitus with hyperglyce sebastian E10.65 ; Dysthymia F34.1 and Migraine without aura and without status migrainosus, not intractable G43.009 [facility] [address] [address] Jun, [facility] [address] [address] May, Type 1 diabetes mellitus with hyperglyce sebastian E10.65 [facility] [address] [address] May, Low back pain M54.5 [place] [address] [address] May, Type 1 diabetes mellitus with hyperglyce sebastian E10.65 [place] [address] [address] Apr, [place] [address] [address] Apr, Chronic kidney disease, stage 4 (severe) N18.4 [place] [address] [address] Apr, Low back pain M54.5 [place] [address] [address] March, [place] [address] [address] March, Low back pain M54.5 [place] [address] [address] Feb, [place] [address] [address] Feb, [place] [address] [address] Feb, Low back pain M54.5 [place] [address] [address] Feb, Low back pain M54.5 [facility] [address] [address] Feb, Migraine without aura and without status migrainosus, not intractable G43.009 [facility] [address] [address] Feb, [place] [address] [address] Jan, Low back pain M54.5 [place] [address] [address] Jan, Type 1 diabetes mellitus without complic ations E10.9 ; Anemia D64.9 ; Chronic kidney disease, unspecified N18.9 ; Migraine without aura and without status migrainosus, not intractable G43.009 and Other insomnia G47.09 [place] [address] [address] Jan, [place] [address] [address] Dec, Low back pain M54.5 [place] [address] [address] Dec, [place] [address] [address] Dec, [place] [address] [address] 08 Dec, 2016 Shortness of breath R06.02 ; Type 1 diab etes mellitus without complications E10.9 and Leg swelling M79.89 [place] [address] [address] Nov, Low back pain M54.5 [place] [address] [address] Nov, Viral syndrome B34.9 [place] [address] [address] Oct, Low back pain M54.5 [facility] [address] [address] 15 Oct, 2016 [facility] [address] [address] Oct, Low back pain M54.5 [facility] [address] [address] Sep, [facility] [address] [address] Sep, Fatigue, unspecified type R53.83 ; Type 1 diabetes mellitus without complications E10.9 and Anemia D64.9 [place] [address] [address] Sep, Low back pain M54.5 [place] [address] [address] Sep, Type 1 diabetes mellitus with hyperglyce sebastian E10.65 [place] [address] [address] Aug, Type 1 diabetes mellitus without complic ations E10.9 [place] [address] [address] Aug, [place] [address] [address] Aug, [place] [address] [address] Jul, [facility] [address] [address] 14 Jul, 2016 Low back pain M54.5 [facility] [address] [address] 12 Jul, 2016 Hyperkalemia, diminished renal excretion E87.5 [facility] [address] [address] 09 Jul, 2016 Hyperkalemia, diminished renal excretion E87.5 [facility] [address] [address] Jun, [facility] [address] [address] Jun, Low back pain M54.5 [facility] [address] [address] Jun, Anemia D64.9 ; Autonomic neuropathy G90. 9 and Postural hypotension I95.1 [facility] [address] [address] Jun, [facility] [address] [address] May, Type 1 diabetes mellitus with complicati ons E10.8 and Anemia D64.9 [facility] [address] [address] May, Low back pain M54.5 [facility] [address] [address] Apr, [facility] [address] [address] Apr, Low back pain M54.5 [facility] [address] [address] Apr, [facility] [address] [address] Apr, [facility] [address] [address] March, Low back pain M54.5 and Other chronic pa in G89.29 [facility] [address] [address] March, Type 1 diabetes mellitus without complic ations E10.9 [facility] [address] [address] March, [facility] [address] [address] March, [facility] [address] [address] Feb, [facility] [address] [address] Feb, Type 1 diabetes mellitus without complic ations E10.9 [place] [address] [address] Feb, Trochanteric bursitis, right hip M70.61 [place] [address] [address] Jan, [place] [address] [address] Jan, [place] [address] [address] Dec, Type 1 diabetes mellitus with complicati ons E10.8 [place] [address] [address] Dec, [place] [address] [address] Dec, Anemia D64.9 ; Autonomic neuropathy G90. 9 and Postural hypotension I95.1 [place] [address] [address] Dec, [place] [address] [address] Nov, Sore throat J02.9 [place] [address] [address] Nov, Type 1 diabetes mellitus with complicati ons E10.8 [place] [address] [address] Nov, Type 1 diabetes mellitus with diabetic n ephropathy E10.21 ; Proteinuria, unspecified R80.9 and Chronic kidney disease, unspecified N18.9 [place] [address] [address] Nov, [place] [address] [place] [id number] [place] [address] Nov, Trochanteric bursitis, right hip M70.61 [facility] [address] [place] [id number] [place] [address] Nov, [facility] [address] [place] [id number] [place] [address] Oct, [facility] [address] [address] Oct, [facility] [address] [place] [id number] [place] [address] Oct, [facility] [address] [address] Sep, [facility] [address] [place] [id number] [place] [address] Sep, [facility] [address] [address] Sep, Type 2 diabetes mellitus with complicati on E11.8 and Right hip pain M25.551 [facility] [address] [address] Sep, [facility] [address] [address] Aug, [facility] [address] [place] [id number] [place] [address] Aug, [facility] [address] [address] Aug, [facility] [address] [place] [id number] [place] [address] Aug, Type 1 diabetes mellitus without complic ations E10.9 [facility] [address] [place] [id number] [place] [address] 16 Jul, 2015 [facility] [address] [address] 15 Jul, 2015 [facility] [address] [place] [address] Jul, [facility] [address] [address] Jun, [facility] [address] [address] Jun, [facility] [address] [address] Jun, [facility] [address] [address] Jun, [facility] [address] [address] Jun, [facility] [address] [address] Jun, Diabetes mellitus without mention of com plication, type I [juvenile type], not stated as uncontrolled 250.01 [facility] [address] [address] May, [facility] [address] [address] May, [facility] [address] [address] May, [facility] [address] [address] May, Autonomic neuropathy 337.9 ; Postural hy potension 458.0 and Anemia 285.9 [facility] [address] [address] May, [facility] [address] [address] Apr, [facility] [address] [address] Apr, [facility] [address] [address] Apr, [facility] [address] [address] Apr, [facility] [address] [facility] [id number] [place] [address] Apr, [facility] [address] [facility] [id number] [place] [address] March, [facility] [address] [id number] [place] [address] March, [facility] [address] [id number] [place] [address] March, [facility] [address] [facility] [id number] [place] [address] March, [facility] [address] [id number] [place] [address] March, [facility] [address] [id number] [place] [address] Feb, [facility] [address] [id number] [place] [address] Feb, [facility] [address] [id number] [place] [address] Feb, [facility] [address] [id number] [place] [address] 30 Jan, 2015 [facility] [address] [id number] [place] [address] Jan, [facility] [place] [facility] [address] [id number] [place] [address] 24 Jan, 2015 [facility] [place] [facility] [address] [id number] [place] [address] Jan, [facility] [place] [facility] [address] [facility] [id number] [place] [address] Jan, [facility] [place] [facility] [address] [id number] [place] [address] Jan, [facility] [place] [facility] [address] [id number] [place] [address] Jan, [facility] [place] [facility] [address] [id number] [place] [address] Jan, [facility] [place] [facility] [address] [id number] [place] [address] Jan, [facility] [place] [facility] [address] [id number] [place] [address] Jan, [facility] [place] [facility] [address] [id number] [place] [address] Jan, [facility] [place] [facility] [address] [id number] [place] [address] Jan, [facility] [place] [facility] [address] [id number] [place] [address] Jan, [facility] [place] [facility] [address] [id number] [place] [address] Dec, [facility] [place] [facility] [address] [id number] [place] [address] Dec, [facility] [place] [facility] [address] [id number] [place] [address] Dec, [facility] [place] [facility] [address] [id number] [place] [address] Dec, [facility] [place] [facility] [address] [id number] [place] [address] Dec, [facility] [place] [facility] [address] [id number] [place] [address] Dec, [facility] [place] [facility] [address] [id number] [place] [address] Dec, [facility] [place] [facility] [address] [id number] [place] [address] Dec, [facility] [place] [facility] [address] [id number] [place] [address] Nov, [facility] [place] [facility] [address] [id number] [place] [address] Nov, [facility] [place] [facility] [address] [id number] [place] [address] Nov, [facility] [facility] [address] [id number] [place] [address] Nov, [facility] [address] [id number] [place] [address] Nov, [facility] [place] [facility] [address] [id number] [place] [address] Nov, [facility] [place] [facility] [address] [id number] [place] [address] Nov, [facility] [place] [facility] [address] [id number] [place] [address] Nov, [facility] [facility] [address] [id number] [place] [address] Nov, [facility] [facility] [address] [id number] [place] [address] Oct, [facility] [address] [id number] [place] [address] Oct, [facility] [address] [id number] [place] [address] Oct, [facility] [address] [id number] [place] [address] Oct, [facility] [address] [id number] [place] [address] Oct, [facility] [address] [id number] [place] [address] Oct, [facility] [facility] [address] [id number] [place] [address] Oct, [facility] [address] [id number] [place] [address] Oct, [facility] [address] [id number] [place] [address] Oct, [facility] [address] [id number] [place] [address] Oct, [facility] [address] [id number] [place] [address] Oct, [facility] [address] [id number] [place] [address] Oct, [facility] [address] [id number] [place] [address] Oct, [facility] [address] [id number] [place] [address] Oct, [facility] [address] [id number] [place] [address] Sep, [facility] [address] [id number] [place] [address] Sep, [facility] [address] [id number] [place] [address] Sep, [facility] [address] [id number] [place] [address] Sep, [facility] [address] [id number] [place] [address] Aug, [facility] [address] [id number] [place] [address] Aug, [facility] [address] [id number] [place] [address] Aug, [facility] [address] [id number] [place] [address] Aug, [facility] [address] [id number] [place] [address] Aug, [facility] [address] [id number] [place] [address] Aug, [facility] [address] [id number] [place] [address] Aug, [facility] [address] [id number] [place] [address] Aug, [facility] [address] [id number] [place] [address] Aug, [facility] [address] [id number] [place] [address] 02 Oct, 2013 [facility] [address] [id number] [place] [address] 29 Sep, 2013 [facility] [address] [id number] [place] [address] 29 Sep, 2013 [facility] [address] [id number] [place] [address] 29 Sep, 2013 [facility] [address] [facility] [id number] [place] [address] 29 Sep, 2013 [facility] [address] [id number] [place] [address] 22 Sep, 2013 [facility] [address] [id number] [place] [address] 22 Sep, 2013 [facility] [address] [id number] [place] [address] 19 Sep, 2013 [facility] [address] [id number] [place] [address] 19 Sep, 2013 [facility] [address] [id number] [place] [address] 11 Sep, 2013 [facility] [address] [id number] [place] [address] 11 Sep, 2013 [facility] [address] [id number] [place] [address] 10 Sep, 2013 [facility] [address] [id number] [place] [address] 10 Sep, 2013 [facility] [address] [id number] [place] [address] 08 Sep, 2013 [facility] [address] [id number] [place] [address] 08 Sep, 2013 [facility] [address] [id number] [place] [address] 03 Sep, 2013 [facility] [address] [id number] [place] [address] 03 Sep, 2013 [facility] [address] [id number] [place] [address] Jul, 2013 [facility] [address] [id number] [place] [address] Jul, [facility] [address] [facility] [id number] [place] [address] Jun, [facility] [address] [id number] [place] [address] Jun, [facility] [address] [id number] [place] [address] Jun, [facility] [address] [id number] [place] [address] Jun, [facility] [address] [facility] [id number] [place] [address] Jun, [facility] [address] [id number] [place] [address] Jun, [facility] [address] [facility] [id number] [place] [address] Jun, [facility] [address] [id number] [place] [address] Jun, [facility] [address] [facility] [id number] [place] [address] Jun, [facility] [address] [id number] [place] [address] Jun, [facility] [address] [id number] [place] [address] Jun, [facility] [address] [id number] [place] [address] Jun, [facility] [address] [facility] [id number] [place] [address] Jun, [facility] [address] [id number] [place] [address] Jun, [facility] [address] [id number] [place] [address] Jun, [facility] [address] [facility] [id number] [place] [address] May, [facility] [address] [facility] [id number] [place] [address] May, [facility] [address] [id number] [place] [address] May, [facility] [address] [id number] [place] [address] May, [facility] [address] [facility] [id number] [place] [address] May, [facility] [address] [id number] [place] [address] May, [facility] [address] [id number] [place] [address] May, [facility] [address] [id number] [place] [address] May, [facility] [address] [id number] [place] [address] Apr, [facility] [address] [id number] [place] [address] Apr, [facility] [address] [id number] [place] [address] Apr, [facility] [address] [id number] [place] [address] Apr, [facility] [address] [facility] [id number] [place] [address] Apr, [facility] [address] [id number] [place] [address] Apr, [facility] [address] [id number] [place] [address] Apr, [facility] [address] [id number] [place] [address] Apr, [facility] [address] [facility] [id number] [place] [address] Apr, [facility] [address] [id number] [place] [address] Apr, [facility] [address] [id number] [place] [address] Apr, [facility] [address] [id number] [place] [address] Apr, [facility] [address] [facility] [id number] [place] [address] Apr, [facility] [address] [id number] [place] [address] Apr, [facility] [address] [id number] [place] [address] Apr, [facility] [address] [id number] [place] [address] Apr, [facility] [address] [id number] [place] [address] Apr, [facility] [address] [id number] [place] [address] Apr, [facility] [address] [id number] [place] [address] March, [facility] [address] [id number] [place] [address] March, [facility] [address] [id number] [place] [address] March, [facility] [address] [id number] [place] [address] March, [facility] [address] [id number] [place] [address] March, [facility] [address] [id number] [place] [address] March, [facility] [address] [id number] [place] [address] March, [facility] [address] [id number] [place] [address] March, [facility] [address] [facility] [id number] [place] [address] March, [facility] [address] [id number] [place] [address] Feb, [facility] [address] [id number] [place] [address] Feb, [facility] [address] [facility] [id number] [place] [address] Feb, [facility] [address] [id number] [place] [address] Feb, [facility] [address] [id number] [place] [address] Feb, [facility] [address] [id number] [place] [address] Feb, [facility] [address] [id number] [place] [address] Feb, [facility] [address] [id number] [place] [address] Feb, [facility] [address] [id number] [place] [address] Feb, [facility] [address] [id number] [place] [address] Feb, [facility] [address] [id number] [place] [address] Feb, [facility] [address] [id number] [place] [address] Feb, [facility] [address] [id number] [place] [address] Feb, [facility] [address] [id number] [place] [address] Jan, [facility] [address] [id number] [place] [address] Jan, [facility] [address] [facility] [id number] [place] [address] Jan, [facility] [address] [facility] [id number] [place] [address] Jan, [facility] [address] [id number] [place] [address] Jan, [facility] [address] [facility] [id number] [place] [address] Jan, [facility] [address] [facility] [id number] [place] [address] Jan, [facility] [address] [id number] [place] [address] Jan, [facility] [address] [id number] [place] [address] Dec, [facility] [address] [id number] [place] [address] Dec, [facility] [address] [id number] [place] [address] Dec, [facility] [address] [id number] [place] [address] Dec, [facility] [address] [id number] [place] [address] Dec, [facility] [address] [id number] [place] [address] Dec, [facility] [address] [facility] [id number] [place] [address] Dec, [facility] [address] [id number] [place] [address] Dec, [facility] [address] [id number] [place] [address] Dec, [facility] [address] [id number] [place] [address] Dec, [facility] [address] [id number] [place] [address] Nov, [facility] [facility] [address] [id number] [place] [address] Nov, [facility] [address] [id number] [place] [address] Nov, [facility] [facility] [address] [id number] [place] [address] Nov, [facility] [facility] [address] [id number] [place] [address] Nov, [facility] [place] [facility] [address] [id number] [place] [address] Nov, [facility] [place] [facility] [address] [id number] [place] [address] Nov, [facility] [place] [facility] [address] [id number] [place] [address] Nov, [facility] [place] [facility] [address] [id number] [place] [address] Nov, [facility] [place] [facility] [address] [id number] [place] [address] Nov, [facility] [place] [facility] [address] [id number] [place] [address] Oct, [facility] [place] [facility] [address] [id number] [place] [address] Oct, [facility] [place] [facility] [address] [id number] [place] [address] 18 Oct, 2013 [facility] [place] [facility] [address] [id number] [place] [address] 18 Oct, 2013 [facility] [place] [facility] [address] [id number] [place] [address] Oct, [facility] [place] [facility] [address] [id number] [place] [address] Oct, [facility] [place] [facility] [address] [id number] [place] [address] 16 Oct, 2012 [facility] [place] [facility] [address] [id number] [place] [address] 16 Oct, 2013 [facility] [place] [facility] [address] [id number] [place] [address] Oct, [facility] [place] [facility] [address] [id number] [place] [address] Oct, [facility] [place] [facility] [address] [id number] [place] [address] Oct, [facility] [place] [facility] [address] [id number] [place] [address] Oct, [facility] [place] [facility] [address] [id number] [place] [address] Oct, [facility] [place] [facility] [address] [id number] [place] [address] Oct, [facility] [place] [facility] [address] [id number] [place] [address] Sep, [facility] [place] [facility] [address] [id number] [place] [address] Sep, [facility] [place] [facility] [address] [id number] [place] [address] Sep, [facility] [place] [facility] [address] [id number] [place] [address] 18 Sep, 2013 [facility] [place] [facility] [address] [id number] [place] [address] Sep, [facility] [place] [facility] [address] [id number] [place] [address] Sep, [facility] [place] [facility] [address] [id number] [place] [address] 31 Aug, 2013 [facility] [place] [facility] [address] [id number] [place] [address] 31 Aug, 2013 [facility] [place] [facility] [address] [id number] [place] [address] 17 Aug, 2013 [facility] [place] [facility] [address] [id number] [place] [address] 17 Aug, 2012 [facility] [place] [facility] [address] [id number] [place] [address] 10 Aug, 2012 [facility] [place] [facility] [address] [id number] [place] [address] 10 Aug, 2012 [facility] [place] [facility] [address] [id number] [place] [address] 07 Aug, 2012 [facility] [place] [facility] [address] [id number] [place] [address] 02 Aug, 2012 [facility] [place] [facility] [address] [id number] [place] [address] 02 Aug, 2012 [facility] [place] [facility] [address] [id number] [place] [address] 25 Sep, 2012 [facility] [place] [facility] [address] [id number] [place] [address] 23 Sep, 2012 [facility] [place] [facility] [address] [id number] [place] [address] 21 Sep, 2012 [facility] [place] [facility] [address] [id number] [place] [address] 20 Sep, 2012 [facility] [place] [facility] [address] [id number] [place] [address] 18 Sep, 2012 [facility] [place] [facility] [address] [id number] [place] [address] 17 Sep, 2012 [facility] [place] [facility] [address] [id number] [place] [address] 16 Sep, 2012 [facility] [place] [facility] [address] [id number] [place] [address] 11 Sep, 2012 [facility] [place] [facility] [address] [id number] [place] [address] 09 Sep, 2012 [facility] [place] [facility] [address] [id number] [place] [address] 09 Sep, 2012 [facility] [place] [facility] [address] [id number] [place] [address] 06 Sep, 2013 [facility] [place] [facility] [address] [id number] [place] [address] Jul, [facility] [place] [facility] [address] [id number] [place] [address] Jun, [facility] [place] [facility] [address] [facility] [id number] [place] [address] Jun, [facility] [place] [facility] [address] [id number] [place] [address] Jun, [facility] [place] [facility] [address] [id number] [place] [address] Jun, [facility] [place] [facility] [address] [id number] [place] [address] Jun, [facility] [place] [facility] [address] [facility] [id number] [place] [address] Jun, [facility] [place] [facility] [address] [id number] [place] [address] Jun, [facility] [place] [facility] [address] [facility] [id number] [place] [address] Jun, [facility] [place] [facility] [address] [id number] [place] [address] Jun, [facility] [place] [facility] [address] [id number] [place] [address] May, [facility] [place] [facility] [address] [id number] [place] [address] May, [facility] [place] [facility] [address] [facility] [id number] [place] [address] May, [facility] [place] [facility] [address] [id number] [place] [address] May, [facility] [place] [facility] [address] [facility] [id number] [place] [address] May, [facility] [place] [facility] [address] [id number] [place] [address] May, [facility] [place] [facility] [address] [id number] [place] [address] May, [facility] [place] [facility] [address] [id number] [place] [address] March, [facility] [place] [facility] [address] [id number] [place] [address] March, [facility] [place] [facility] [address] [id number] [place] [address] March, [facility] [place] [facility] [address] [id number] [place] [address] Dec, [facility] [place] [facility] [address] [id number] [place] [address] Nov, [facility] [place] [facility] [address] [id number] [place] [address] Aug, [facility] [place] [facility] [address] [id number] [place] [address] Aug, [facility] [place] [facility] [address] [id number] [place] [address] Jun, [facility] [place] [facility] [address] [id number] [place] [address] Jun, [facility] [place] [facility] [address] [id number] [place] [address] Jun, [facility] [place] [facility] [address] [id number] [place] [address] Jun, [facility] [place] [facility] [address] [id number] [place] [address] May, [facility] [place] [facility] [address] [id number] [place] [address] May, [facility] [place] [facility] [address] [id number] [place] [address] May, [facility] [place] [facility] [address] [id number] [place] [address] May, [facility] [place] [facility] [address] [id number] [place] [address] May, [facility] [place] [facility] [address] [id number] [place] [address] May, [facility] [place] [facility] [address] [id number] [place] [address] May, [facility] [place] [facility] [address] [id number] [place] [address] Apr, [facility] [place] [facility] [address] [id number] [place] [address] Apr, [facility] [place] [facility] [address] [id number] [place] [address] Apr, [facility] [place] [facility] [address] [id number] [place] [address] Apr, [facility] [place] [facility] [address] [id number] [place] [address] March, [facility] [place] [facility] [address] [id number] [place] [address] March, [facility] [place] [facility] [address] [id number] [place] [address] March, [facility] [place] [facility] [address] [id number] [place] [address] March, [facility] [place] [facility] [address] [id number] [place] [address] March, [facility] [place] [facility] [address] [id number] [place] [address] March, [facility] [place] [facility] [address] [id number] [place] [address] March, [facility] [place] [facility] [address] [id number] [place] [address] March, [facility] [place] [facility] [address] [id number] [place] [address] March, [facility] [place] [facility] [address] [id number] [place] [address] Feb, [facility] [place] [facility] [address] [id number] [place] [address] Feb, [facility] [address] [id number] [place] [address] 28 Jan, 2012 [facility] [place] [facility] [address] [id number] [place] [address] 27 Jan, 2012 [facility] [place] [facility] [address] [id number] [place] [address] 16 Jan, 2012 [facility] [place] [facility] [address] [id number] [place] [address] 05 Jan, 2012 [facility] [place] [facility] [address] [id number] [place] [address] 20 Dec, 2011 [facility] [place] [facility] [address] [id number] [place] [address] 16 Dec, 2011 [facility] [address] [id number] [place] [address] 15 Dec, 2011 [facility] [address] [id number] [place] [address] Nov, [facility] [address] [id number] [place] [address] Oct, [facility] [address] [id number] [place] [address] 15 Oct, 2011 [facility] [address] [id number] [place] [address] 15 Oct, 2011 [facility] [address] [id number] [place] [address] 14 Oct, 2011 [facility] [address] [id number] [place] [address] 14 Oct, 2011 [facility] [address] [id number] [place] [address] Oct, [facility] [address] [id number] [place] [address] 09 Oct, 2011 [facility] [address] [id number] [place] [address] Oct, [facility] [id number] [place] [address] 22 Sep, 2011 [facility] [id number] [place] [address] Sep, [facility] [id number] [place] [address] 14 Sep, 2011 [facility] [id number] [place] [address] Sep, [facility] [address] [address] Sep, [facility] [id number] [place] [address] Sep, [facility] [address] [address] Sep, [facility] [id number] [place] [address] Sep, [facility] [address] [address] Sep, [facility] [id number] [place] [address] Aug, [facility] [address] [address] Jul, [facility] [address] [address] Oct, [facility] [id number] [place] [address] Oct, [facility] [id number] [place] [address] Oct, IMMUNIZATIONS No Known Immunizations SOCIAL HISTORY [...]
--- OUTSIDE RECORDS SUMMARY | 2020-03-19 06:08 | XMS REPORT ---
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 12626376 Problem Chronic kidney disease, unspecified N18.9 Active 144032882 Problem Anemia, unspecified D64.9 Active 787107475 Problem Irritable bowel K58.9 Active 1074 3008 Problem Irritable bowel syndrome with diarrhea K58.0 Active 343163810 Problem Claudication I73.9 Active 8517545 6 Problem Intractable migraine without aura and with status migr ainosus G43.011 Active 471842994 Problem Peritoneal dialysis status Z99.2 Act moody 848061177 Problem Migraine without aura and without status migrain osus, not intractable G43.009 Active 871977705 Problem Other insomnia G47.09 Active 17259 2000 Problem Dysthymia F34.1 Active 88601937 Problem Chronic kidney disease, stage 4 (severe) N18.4 Active 486428971 Problem Migraine with aura and without status migrainosu s, not intractable G43.109 Active 3402566 Problem Autonomic neuropathy G90.9 Active 014378174 Problem Type 1 diabetes mellitus with complications E10.8 Active 247268877 Problem Menorrhagia with regular cycle N92.0 Active 299758653 Problem Other chronic pain G89.29 Active 8 8967590 Problem Lymphedema I89.0 Active 796024763 Problem Essential hypertension I10 Active 17676548 Problem Moderate episode of recurrent major depressive disorder F33.1 Active 600611860 Problem Type 1 diabetes mellitus without complications E10 .9 Active 147841362 Problem Primary insomnia F51.01 Active 397 2004 Problem Migraine G43.909 Active 02495593 Problem Low back pain M54.5 Active 387814 009 Problem Diastolic dysfunction I51.89 Active 4323787 Problem ESRF (end stage renal failure) N18.6 Active 12119146 Problem Restless legs G25.81 Active 181596 08 Problem Hyperthyroidism E05.90 Active 3448 6009 ALLERGIES No Information ENCOUNTERS Encounter Location Date Diagnosis [place] [address] [address] Jan, [place] [address] [address] Oct, Restless legs G25.81 [place] [address] [address] Oct, Encounter for Medicare annual wellness e xam Z00.00 ; 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 ; Migraine without aura and without status migrainosus, not intractable G43.009 ; Chronic kidney disease, stage 4 (severe) N18.4 ; Claudication I73.9 ; Peritoneal dialysis status Z99.2 ; Diastolic dysfunction I51.89 ; Primary insomnia F51.01 and Burn T30.0 [place] [address] [address] Sep, Moderate episode of recurrent major depr essive disorder F33.1 and Primary insomnia F51.01 [place] [address] [address] Aug, Hyperthyroidism E05.90 [place] [address] [address] May, Restless legs G25.81 [place] [address] [address] May, [place] [address] [address] May, [place] [address] [address] May, Type 1 diabetes mellitus with hypoglycem ia without coma E10.649 ; ESRF (end stage renal failure) N18.6 ; Leg cramps R25.2 ; Restless legs G25.81 and Low back pain M54.5 [facility] [address] [address] Apr, Low back pain M54.5 [facility] [address] [address] Apr, [facility] [address] [address] March, Low back pain M54.5 [facility] [address] [address] March, [facility] [address] [address] Feb, Low back pain M54.5 [facility] [address] [address] Jan, Low back pain M54.5 [facility] [address] [address] Jan, [facility] [address] [address] Jan, [facility] [address] [address] Jan, [facility] [address] [address] Dec, Type 1 diabetes mellitus with hypoglycem ia without coma E10.649 and Low back pain M54.5 [facility] [address] [address] Dec, Low back pain M54.5 [facility] [address] [address] Dec, Diastolic dysfunction I51.89 ; Essential hypertension I10 and Chronic kidney disease, stage 4 (severe) N18.4 [place] [address] [address] 11 Dec, 2018 RUQ abdominal pain R10.11 ; Type 1 diabe camryn mellitus without complications E10.9 ; Therapeutic drug monitoring Z51.81 ; Migraine with aura and without status migrainosus, not intractable G43.109 and Intractable migraine without aura and with status migrainosus G43.011 [place] [address] [address] Nov, Low back pain M54.5 [place] [address] [address] Nov, [place] [address] [address] Nov, Intractable migraine without aura and wi th status migrainosus G43.011 ; Lymphedema I89.0 ; Pain in right shoulder M25.511 ; Other chronic pain G89.29 ; Irritable bowel syndrome with diarrhea K58.0 ; Type 1 diabetes mellitus without complications E10.9 and Essential hypertension I10 [place] [address] [address] Oct, Low back pain M54.5 [place] [address] [address] Oct, [place] [address] [address] Oct, Orthostatic hypotension I95.1 ; Shortnes s of breath R06.02 ; Leg swelling M79.89 ; Type 1 diabetes mellitus without complications E10.9 and Claudication I73.9 [place] [address] [address] Sep, Low back pain M54.5 [place] [address] [address] Sep, Low back pain M54.5 [place] [address] [address] Aug, [facility] [address] [place] [id number] [place] [address] Aug, Migraine without aura and without status migrainosus, not intractable G43.009 [facility] [address] [address] Aug, Low back pain M54.5 [facility] [address] [facility] [id number] [place] [address] Aug, Acute rhinosinusitis J01.90 and Sore throat J02.9 [facility] [address] [address] Jul, Low back pain M54.5 [facility] [address] [address] Jul, Migraine without aura and without status migrainosus, not intractable G43.009 [facility] [address] [address] Jun, Low back pain M54.5 [facility] [address] [address] Jun, [facility] [address] [address] Jun, Orthostatic hypotension I95.1 ; Shortnes s of breath R06.02 ; Type 1 diabetes mellitus without complications E10.9 and Leg swelling M79.89 [facility] [address] [address] Jun, Low back pain M54.5 [facility] [address] [address] Jun, [facility] [address] [address] May, Migraine without aura and without status migrainosus, not intractable G43.009 [facility] [address] [address] May, Migraine without aura and without status migrainosus, not intractable G43.009 ; Restless legs syndrome G25.81 ; Leg cramps R25.2 ; Chronic kidney disease, unspecified N18.9 ; Postural hypotension I95.1 ; Diarrhea, unspecified type R19.7 and Cough R05 [facility] [address] [address] May, [facility] [address] [address] May, [facility] [address] [address] May, Orthostatic hypotension I95.1 ; Shortnes s of breath R06.02 ; Type 1 diabetes mellitus with complications E10.8 and Leg swelling M79.89 [place] [address] [address] May, [place] [address] [address] May, Low back pain M54.5 [place] [address] [address] Apr, Type 1 diabetes mellitus with hyperglyce sebastian E10.65 [place] [address] [address] Apr, Low back pain M54.5 [facility] [address] [address] Apr, [facility] [address] [address] Apr, [facility] [address] [address] March, [place] [address] [address] March, Low back pain M54.5 [facility] [address] [address] March, [place] [address] [address] Feb, [place] [address] [address] Feb, Low back pain M54.5 [place] [address] [address] Jan, Restless legs syndrome G25.81 [place] [address] [address] Jan, Low back pain M54.5 [place] [address] [address] Jan, [place] [address] [address] Jan, Type 1 diabetes mellitus without complic ations E10.9 ; Low back pain M54.5 ; Cough R05 ; Diarrhea, unspecified type R19.7 ; Migraine without aura and without status migrainosus, not intractable G43.009 and Uses control Z30.9 [place] [address] [address] Dec, Low back pain M54.5 [place] [address] [address] Dec, [place] [address] [address] Nov, Well woman exam Z01.419 ; Menorrhagia wi th regular cycle N92.0 ; Vaginal dryness N89.8 and Migraine with aura and without status migrainosus, not intractable G43.109 [place] [address] [address] Nov, [place] [address] [address] Nov, Low back pain M54.5 [place] [address] [address] Oct, Low back pain M54.5 [facility] [address] [address] Oct, Migraine without aura and without status migrainosus, not intractable G43.009 [facility] [address] [address] Sep, Low back pain M54.5 [facility] [address] [address] Sep, [facility] [address] [address] Sep, Migraine without aura and without status migrainosus, not intractable G43.009 [place] [address] [address] Sep, Type 1 diabetes mellitus with hypoglycem ia without coma E10.649 ; Anemia D64.9 ; Migraine without aura and without status migrainosus, not intractable G43.009 ; Chronic kidney disease, unspecified N18.9 ; Autonomic neuropathy G90.9 and Postural hypotension I95.1 [place] [address] [address] Sep, Low back pain M54.5 [place] [address] [address] Aug, Low back pain M54.5 [place] [address] [address] 14 Jul, 2017 [facility] [address] [address] Jul, Low back pain M54.5 [facility] [address] [address] Jun, [facility] [address] [address] Jun, Low back pain M54.5 [facility] [address] [address] Jun, Migraine without aura and without status migrainosus, not intractable G43.009 [facility] [address] [address] Jun, Type 1 diabetes mellitus with hyperglyce sebastian E10.65 ; Dysthymia F34.1 and Migraine without aura and without status migrainosus, not intractable G43.009 [facility] [address] [address] Jun, [facility] [address] [address] May, Type 1 diabetes mellitus with hyperglyce sebastian E10.65 [place] [address] [address] May, Low back pain M54.5 [place] [address] [address] May, Type 1 diabetes mellitus with hyperglyce sebastian E10.65 [place] [address] [address] Apr, [place] [address] [address] Apr, Chronic kidney disease, stage 4 (severe) N18.4 [place] [address] [address] Apr, Low back pain M54.5 [place] [address] [address] March, [facility] [address] [address] March, Low back pain M54.5 [facility] [address] [address] Feb, [place] [address] [address] Feb, [facility] [address] [address] Feb, Low back pain M54.5 [place] [address] [address] Feb, Low back pain M54.5 [place] [address] [address] Feb, Migraine without aura and without status migrainosus, not intractable G43.009 [place] [address] [address] Feb, [place] [address] [address] Jan, Low back pain M54.5 [place] [address] [address] Jan, Type 1 diabetes mellitus without complic ations E10.9 ; Anemia D64.9 ; Chronic kidney disease, unspecified N18.9 ; Migraine without aura and without status migrainosus, not intractable G43.009 and Other insomnia G47.09 [place] [address] [address] Jan, [place] [address] [address] Dec, Low back pain M54.5 [place] [address] [address] Dec, [place] [address] [address] Dec, [place] [address] [address] 08 Dec, 2016 Shortness of breath R06.02 ; Type 1 diab etes mellitus without complications E10.9 and Leg swelling M79.89 [place] [address] [address] Nov, Low back pain M54.5 [place] [address] [address] Nov, Viral syndrome B34.9 [place] [address] [address] Oct, Low back pain M54.5 [facility] [address] [address] Oct, [facility] [address] [address] Oct, Low back pain M54.5 [facility] [address] [address] Sep, [facility] [address] [address] Sep, Fatigue, unspecified type R53.83 ; Type 1 diabetes mellitus without complications E10.9 and Anemia D64.9 [facility] [address] [address] Sep, Low back pain M54.5 [facility] [address] [address] Sep, Type 1 diabetes mellitus with hyperglyce sebastain E10.65 [facility] [address] [address] Aug, Type 1 diabetes mellitus without complic ations E10.9 [facility] [address] [address] Aug, [facility] [address] [address] Aug, [facility] [address] [address] Jul, [facility] [address] [address] 14 Jul, 2016 Low back pain M54.5 [facility] [address] [address] 12 Jul, 2016 Hyperkalemia, diminished renal excretion E87.5 [facility] [address] [address] Jul, Hyperkalemia, diminished renal excretion E87.5 [facility] [address] [address] Jun, [facility] [address] [address] Jun, Low back pain M54.5 [facility] [address] [address] Jun, Anemia D64.9 ; Autonomic neuropathy G90. 9 and Postural hypotension I95.1 [place] [address] [address] Jun, [place] [address] [address] May, Type 1 diabetes mellitus with complicati ons E10.8 and Anemia D64.9 [place] [address] [address] May, Low back pain M54.5 [place] [address] [address] Apr, [place] [address] [address] Apr, Low back pain M54.5 [place] [address] [address] Apr, [place] [address] [address] Apr, [place] [address] [address] March, Low back pain M54.5 and Other chronic pa in G89.29 [place] [address] [address] March, Type 1 diabetes mellitus without complic ations E10.9 [facility] [address] [address] March, [place] [address] [place] [id number] [place] [address] March, [facility] [address] [address] Feb, [facility] [address] [address] Feb, Type 1 diabetes mellitus without complic ations E10.9 [place] [address] [address] Feb, Trochanteric bursitis, right hip M70.61 [place] [address] [address] Jan, [place] [address] [address] Jan, [place] [address] [address] Dec, Type 1 diabetes mellitus with complicati ons E10.8 [place] [address] [address] Dec, [place] [address] [address] Dec, Anemia D64.9 ; Autonomic neuropathy G90. 9 and Postural hypotension I95.1 [place] [address] [address] Dec, [place] [address] [address] Nov, Sore throat J02.9 [facility] [address] [address] Nov, Type 1 diabetes mellitus with complicati ons E10.8 [place] [address] [address] Nov, Type 1 diabetes mellitus with diabetic n ephropathy E10.21 ; Proteinuria, unspecified R80.9 and Chronic kidney disease, unspecified N18.9 [place] [address] [place] [id number] [place] [address] 14 Nov, 2015 [facility] [address] [place] [id number] [place] [address] Nov, Trochanteric bursitis, right hip M70.61 [facility] [address] [place] [id number] [place] [address] Nov, [facility] [address] [address] Oct, [facility] [address] [place] [id number] [place] [address] Oct, [facility] [address] [address] Oct, [facility] [address] [place] [id number] [place] [address] Sep, [facility] [address] [address] Sep, [facility] [address] [address] Sep, Type 2 diabetes mellitus with complicati on E11.8 and Right hip pain M25.551 [facility] [address] [place] [id number] [place] [address] Sep, [facility] [address] [place] [id number] [place] [address] Aug, [facility] [address] [address] Aug, [facility] [address] [place] [id number] [place] [address] Aug, [facility] [address] [address] Aug, Type 1 diabetes mellitus without complic ations E10.9 [facility] [address] [place] [id number] [place] [address] 16 Jul, 2015 [facility] [address] [place] [address] 15 Jul, 2015 [facility] [address] [address] Jul, [facility] [address] [address] Jun, [facility] [address] [address] Jun, [facility] [address] [address] Jun, [facility] [address] [address] Jun, [facility] [address] [address] Jun, [facility] [address] [address] Jun, Diabetes mellitus without mention of com plication, type I [juvenile type], not stated as uncontrolled 250.01 [facility] [address] [address] May, [facility] [address] [address] May, [facility] [address] [address] May, [facility] [address] [address] May, Autonomic neuropathy 337.9 ; Postural hy potension 458.0 and Anemia 285.9 [facility] [address] [address] May, [facility] [address] [address] Apr, [facility] [address] [address] Apr, [facility] [address] [address] Apr, [facility] [place] [facility] [address] [facility] [id number] [facility] [place] [address] Apr, [facility] [place] [facility] [address] [facility] [id number] [facility] [place] [address] Apr, [facility] [place] [facility] [address] [id number] [place] [address] March, [facility] [place] [facility] [address] [id number] [facility] [place] [address] March, [facility] [place] [facility] [address] [facility] [id number] [facility] [place] [address] March, [facility] [place] [facility] [address] [id number] [place] [address] March, [facility] [place] [facility] [address] [id number] [place] [address] March, [facility] [place] [facility] [address] [id number] [facility] [place] [address] Feb, [facility] [place] [facility] [address] [id number] [place] [address] Feb, [facility] [place] [facility] [address] [id number] [place] [address] Feb, [facility] [place] [facility] [address] [id number] [place] [address] 30 Jan, 2015 [facility] [place] [facility] [address] [id number] [place] [address] Jan, [facility] [place] [facility] [address] [facility] [id number] [facility] [place] [address] Jan, [facility] [place] [facility] [address] [id number] [place] [address] Jan, [facility] [place] [facility] [address] [id number] [place] [address] Jan, [facility] [place] [facility] [address] [id number] [place] [address] Jan, [facility] [place] [facility] [address] [id number] [place] [address] Jan, [facility] [place] [facility] [address] [id number] [place] [address] Jan, [facility] [place] [facility] [address] [id number] [place] [address] Jan, [facility] [place] [facility] [address] [id number] [place] [address] Jan, [facility] [place] [facility] [address] [id number] [place] [address] Jan, [facility] [place] [facility] [address] [id number] [place] [address] Jan, [facility] [place] [facility] [address] [id number] [place] [address] Jan, [facility] [place] [facility] [address] [id number] [place] [address] Dec, [facility] [place] [facility] [address] [id number] [place] [address] Dec, [facility] [place] [facility] [address] [id number] [place] [address] Dec, [facility] [place] [facility] [address] [id number] [place] [address] Dec, [facility] [place] [facility] [address] [id number] [place] [address] Dec, [facility] [place] [facility] [address] [id number] [place] [address] Dec, [facility] [place] [facility] [address] [id number] [place] [address] Dec, [facility] [place] [facility] [address] [id number] [place] [address] Dec, [facility] [address] [id number] [place] [address] Nov, [facility] [address] [id number] [place] [address] Nov, [facility] [address] [id number] [place] [address] Nov, [facility] [address] [id number] [place] [address] Nov, [facility] [address] [id number] [place] [address] Nov, [facility] [address] [id number] [place] [address] Nov, [facility] [address] [id number] [place] [address] Nov, [facility] [address] [id number] [place] [address] Nov, [facility] [address] [id number] [place] [address] Nov, [facility] [address] [id number] [place] [address] Oct, [facility] [address] [id number] [place] [address] Oct, [facility] [address] [id number] [place] [address] Oct, [facility] [address] [id number] [place] [address] Oct, [facility] [address] [id number] [place] [address] Oct, [facility] [address] [id number] [place] [address] Oct, [facility] [address] [id number] [place] [address] Oct, [facility] [address] [id number] [place] [address] Oct, [facility] [address] [id number] [place] [address] Oct, [facility] [place] [facility] [address] [id number] [place] [address] Oct, [facility] [place] [facility] [address] [id number] [place] [address] Oct, [facility] [place] [facility] [address] [id number] [place] [address] Oct, [facility] [place] [facility] [address] [id number] [place] [address] Oct, [facility] [place] [facility] [address] [id number] [place] [address] Oct, [facility] [place] [facility] [address] [id number] [place] [address] Sep, [facility] [place] [facility] [address] [id number] [place] [address] Sep, [facility] [place] [facility] [id number] [place] [address] Sep, [facility] [place] [facility] [address] [id number] [place] [address] Sep, [facility] [place] [facility] [address] [id number] [place] [address] Aug, [facility] [place] [facility] [address] [id number] [place] [address] Aug, [facility] [place] [facility] [address] [id number] [place] [address] Aug, [facility] [place] [facility] [address] [id number] [place] [address] Aug, [facility] [place] [facility] [address] [id number] [place] [address] Aug, [facility] [place] [facility] [address] [id number] [place] [address] Aug, [facility] [place] [facility] [address] [id number] [place] [address] Aug, [facility] [place] [facility] [address] [id number] [place] [address] Aug, [facility] [place] [facility] [address] [id number] [place] [address] 02 Aug, 2013 [facility] [place] [facility] [address] [id number] [place] [address] 02 Aug, 2013 [facility] [place] [facility] [address] [id number] [place] [address] 29 Sep, 2013 [facility] [place] [facility] [address] [id number] [place] [address] 29 Sep, 2013 [facility] [place] [facility] [address] [facility] [id number] [place] [address] 29 Sep, 2013 [facility] [place] [facility] [address] [id number] [place] [address] 29 Sep, 2013 [facility] [place] [facility] [address] [id number] [place] [address] 22 Sep, 2013 [facility] [place] [facility] [address] [id number] [place] [address] 22 Jul, 2013 [facility] [place] [facility] [address] [id number] [place] [address] 19 Sep, 2013 [facility] [place] [facility] [address] [id number] [place] [address] 19 Sep, 2013 [facility] [place] [facility] [address] [id number] [place] [address] 11 Sep, 2013 [facility] [place] [facility] [address] [id number] [place] [address] 11 Sep, 2013 [facility] [place] [facility] [address] [id number] [place] [address] 10 Sep, 2013 [facility] [place] [facility] [address] [id number] [place] [address] 10 Sep, 2013 [facility] [place] [facility] [address] [id number] [place] [address] 08 Sep, 2013 [facility] [place] [facility] [address] [id number] [place] [address] 08 Sep, 2013 [facility] [place] [facility] [address] [id number] [place] [address] 03 Sep, 2013 [facility] [place] [facility] [address] [id number] [place] [address] 03 Jul, 2013 [facility] [place] [facility] [address] [id number] [place] [address] Jul, 2013 [facility] [place] [facility] [address] [facility] [id number] [facility] [place] [address] Jul, [facility] [place] [facility] [address] [id number] [place] [address] Jun, [facility] [place] [facility] [address] [id number] [place] [address] Jun, [facility] [place] [facility] [address] [id number] [place] [address] Jun, [facility] [place] [facility] [address] [facility] [id number] [facility] [place] [address] Jun, [facility] [place] [facility] [address] [id number] [facility] [place] [address] Jun, [facility] [place] [facility] [address] [facility] [id number] [place] [address] Jun, [facility] [place] [facility] [address] [id number] [facility] [place] [address] Jun, [facility] [place] [facility] [address] [facility] [id number] [facility] [place] [address] Jun, [facility] [place] [facility] [address] [id number] [facility] [place] [address] Jun, [facility] [place] [facility] [address] [id number] [facility] [place] [address] Jun, [facility] [place] [facility] [address] [id number] [facility] [place] [address] Jun, [facility] [place] [facility] [address] [facility] [id number] [facility] [place] [address] Jun, [facility] [place] [facility] [address] [id number] [facility] [place] [address] Jun, [facility] [place] [facility] [address] [facility] [id number] [place] [address] Jun, [facility] [place] [facility] [address] [facility] [id number] [facility] [place] [address] Jun, [facility] [place] [facility] [address] [facility] [id number] [place] [address] May, [facility] [place] [facility] [address] [id number] [place] [address] May, [facility] [place] [facility] [address] [facility] [id number] [place] [address] May, [facility] [place] [facility] [address] [facility] [id number] [place] [address] May, [facility] [place] [facility] [address] [id number] [place] [address] May, [facility] [place] [facility] [address] [id number] [place] [address] May, [facility] [place] [facility] [address] [id number] [place] [address] May, [facility] [place] [facility] [address] [id number] [place] [address] May, [facility] [place] [facility] [address] [id number] [place] [address] Apr, [facility] [place] [facility] [address] [id number] [place] [address] Apr, [facility] [place] [facility] [address] [id number] [place] [address] Apr, [facility] [place] [facility] [address] [facility] [id number] [place] [address] Apr, [facility] [place] [facility] [address] [id number] [place] [address] Apr, [facility] [place] [facility] [address] [id number] [place] [address] Apr, [facility] [place] [facility] [address] [id number] [place] [address] Apr, [facility] [place] [facility] [address] [id number] [place] [address] Apr, [facility] [place] [facility] [address] [id number] [place] [address] Apr, [facility] [place] [facility] [address] [id number] [place] [address] Apr, [facility] [place] [facility] [address] [id number] [place] [address] Apr, [facility] [place] [facility] [address] [facility] [id number] [place] [address] Apr, [facility] [place] [facility] [address] [id number] [place] [address] Apr, [facility] [place] [facility] [address] [id number] [place] [address] Apr, [facility] [place] [facility] [address] [id number] [place] [address] Apr, [facility] [place] [facility] [address] [id number] [place] [address] Apr, [facility] [place] [facility] [address] [id number] [place] [address] Apr, [facility] [place] [facility] [address] [id number] [place] [address] Apr, [facility] [place] [facility] [address] [id number] [place] [address] March, [facility] [place] [facility] [address] [id number] [place] [address] March, [facility] [place] [facility] [address] [id number] [place] [address] March, [facility] [place] [facility] [address] [id number] [place] [address] March, [facility] [place] [facility] [address] [id number] [place] [address] March, [facility] [place] [facility] [address] [id number] [place] [address] March, [facility] [place] [facility] [address] [id number] [facility] [place] [address] March, [facility] [place] [facility] [address] [facility] [id number] [facility] [place] [address] March, [facility] [place] [facility] [address] [facility] [id number] [facility] [place] [address] March, [facility] [place] [facility] [address] [id number] [place] [address] Feb, [facility] [place] [facility] [address] [facility] [id number] [place] [address] Feb, [facility] [place] [facility] [address] [id number] [facility] [place] [address] Feb, [facility] [place] [facility] [address] [id number] [place] [address] Feb, [facility] [place] [facility] [address] [id number] [facility] [place] [address] Feb, [facility] [place] [facility] [address] [id number] [facility] [place] [address] Feb, [facility] [place] [facility] [address] [id number] [facility] [place] [address] Feb, [facility] [place] [facility] [address] [id number] [place] [address] Feb, [facility] [place] [facility] [address] [id number] [place] [address] Feb, [facility] [place] [facility] [address] [id number] [facility] [place] [address] Feb, [facility] [place] [facility] [address] [id number] [place] [address] Feb, [facility] [place] [facility] [address] [id number] [place] [address] Feb, [facility] [place] [facility] [address] [id number] [facility] [place] [address] Feb, [facility] [place] [facility] [address] [id number] [place] [address] Jan, [facility] [place] [facility] [address] [facility] [id number] [facility] [place] [address] Jan, [facility] [place] [facility] [address] [facility] [id number] [facility] [place] [address] Jan, [facility] [place] [facility] [address] [id number] [facility] [place] [address] Jan, [facility] [place] [facility] [address] [facility] [id number] [facility] [place] [address] Jan, [facility] [place] [facility] [address] [facility] [id number] [facility] [place] [address] Jan, [facility] [place] [facility] [address] [id number] [place] [address] Jan, [facility] [place] [facility] [address] [id number] [place] [address] Jan, [facility] [place] [facility] [address] [id number] [place] [address] Dec, [facility] [place] [facility] [address] [facility] [id number] [facility] [place] [address] Dec, [facility] [place] [facility] [address] [id number] [place] [address] Dec, [facility] [place] [facility] [address] [id number] [place] [address] Dec, [facility] [place] [facility] [address] [id number] [place] [address] Dec, [facility] [place] [facility] [address] [facility] [id number] [place] [address] Dec, [facility] [place] [facility] [address] [id number] [place] [address] Dec, [facility] [place] [facility] [address] [id number] [place] [address] Dec, [facility] [place] [facility] [address] [id number] [place] [address] Dec, [facility] [place] [facility] [address] [id number] [place] [address] Dec, [facility] [place] [facility] [address] [id number] [place] [address] Nov, [facility] [place] [facility] [address] [id number] [place] [address] Nov, [facility] [place] [facility] [address] [id number] [place] [address] Nov, [facility] [place] [facility] [address] [id number] [place] [address] Nov, [facility] [place] [facility] [address] [id number] [place] [address] Nov, [facility] [place] [facility] [address] [id number] [place] [address] Nov, [facility] [place] [facility] [address] [id number] [place] [address] Nov, [facility] [place] [facility] [address] [id number] [place] [address] Nov, [facility] [place] [facility] [address] [id number] [place] [address] Nov, [facility] [place] [facility] [address] [id number] [place] [address] Nov, [facility] [place] [facility] [address] [id number] [place] [address] Oct, [facility] [place] [facility] [address] [id number] [place] [address] Oct, [facility] [place] [facility] [address] [id number] [place] [address] 18 Oct, 2013 [facility] [place] [facility] [address] [id number] [place] [address] Oct, [facility] [place] [facility] [address] [id number] [place] [address] 17 Oct, 2013 [facility] [place] [facility] [address] [id number] [place] [address] 17 Oct, 2013 [facility] [place] [facility] [address] [id number] [place] [address] 16 Oct, 2013 [facility] [place] [facility] [address] [id number] [place] [address] Oct, [facility] [place] [facility] [address] [id number] [place] [address] Oct, [facility] [place] [facility] [address] [id number] [place] [address] Oct, [facility] [place] [facility] [address] [id number] [place] [address] Oct, [facility] [place] [facility] [address] [id number] [place] [address] Oct, [facility] [place] [facility] [address] [id number] [place] [address] Oct, [facility] [place] [facility] [address] [id number] [place] [address] Oct, [facility] [place] [facility] [address] [id number] [place] [address] Sep, [facility] [place] [facility] [address] [id number] [place] [address] Sep, [facility] [place] [facility] [address] [id number] [place] [address] Sep, [facility] [place] [facility] [address] [id number] [place] [address] Sep, [facility] [place] [facility] [address] [id number] [place] [address] Sep, [facility] [place] [facility] [address] [id number] [place] [address] Sep, [facility] [place] [facility] [address] [id number] [place] [address] Aug, [facility] [place] [facility] [address] [id number] [place] [address] Aug, [facility] [place] [facility] [address] [id number] [place] [address] 17 Aug, 2012 [facility] [place] [facility] [address] [id number] [place] [address] 17 Aug, 2012 [facility] [place] [facility] [address] [id number] [place] [address] 10 Aug, 2012 [facility] [place] [facility] [address] [id number] [place] [address] 10 Aug, 2012 [facility] [place] [facility] [address] [id number] [place] [address] 07 Aug, 2012 [facility] [place] [facility] [address] [id number] [place] [address] 02 Aug, 2012 [facility] [place] [facility] [address] [id number] [place] [address] 02 Aug, 2012 [facility] [place] [facility] [address] [id number] [place] [address] 25 Sep, 2012 [facility] [place] [facility] [address] [id number] [place] [address] 23 Sep, 2012 [facility] [place] [facility] [address] [id number] [place] [address] 21 Sep, 2012 [facility] [place] [facility] [address] [id number] [place] [address] 20 Sep, 2012 [facility] [place] [facility] [address] [id number] [place] [address] 18 Sep, 2012 [facility] [place] [facility] [address] [id number] [place] [address] 17 Sep, 2012 [facility] [place] [facility] [address] [id number] [place] [address] 16 Sep, 2012 [facility] [place] [facility] [address] [id number] [place] [address] 11 Sep, 2012 [facility] [place] [facility] [address] [id number] [place] [address] 09 Sep, 2012 [facility] [place] [facility] [address] [id number] [place] [address] 09 Sep, 2012 [facility] [place] [facility] [address] [id number] [facility] [place] [address] Jul, 2012 [facility] [place] [facility] [address] [facility] [id number] [place] [address] Jul, [facility] [place] [facility] [address] [facility] [id number] [facility] [place] [address] Jun, [facility] [place] [facility] [address] [id number] [place] [address] Jun, [facility] [place] [facility] [address] [id number] [place] [address] Jun, [facility] [place] [facility] [address] [id number] [place] [address] Jun, [facility] [place] [facility] [address] [id number] [facility] [place] [address] Jun, [facility] [place] [facility] [address] [id number] [facility] [place] [address] Jun, [facility] [place] [facility] [address] [facility] [id number] [facility] [place] [address] Jun, [facility] [place] [facility] [address] [id number] [facility] [place] [address] Jun, [facility] [place] [facility] [address] [id number] [facility] [place] [address] Jun, [facility] [address] [id number] [place] [address] May, [facility] [address] [facility] [id number] [facility] [place] [address] May, [facility] [address] [id number] [facility] [place] [address] May, [facility] [address] [facility] [id number] [facility] [place] [address] May, [facility] [address] [id number] [facility] [place] [address] May, [facility] [address] [id number] [place] [address] May, [facility] [address] [id number] [facility] [place] [address] May, [facility] [address] [id number] [place] [address] March, [facility] [address] [id number] [place] [address] March, [facility] [address] [id number] [place] [address] March, [facility] [address] [id number] [place] [address] Dec, [facility] [address] [id number] [place] [address] Nov, [facility] [address] [id number] [place] [address] Aug, [facility] [address] [id number] [place] [address] Aug, [facility] [address] [id number] [place] [address] Jun, [facility] [address] [id number] [place] [address] Jun, [facility] [address] [id number] [place] [address] Jun, [facility] [address] [id number] [place] [address] Jun, [facility] [address] [facility] [id number] [place] [address] May, [facility] [address] [id number] [place] [address] May, [facility] [address] [id number] [place] [address] May, [facility] [address] [id number] [place] [address] May, [facility] [address] [id number] [place] [address] May, [facility] [address] [id number] [place] [address] May, [facility] [address] [id number] [place] [address] May, [facility] [address] [id number] [place] [address] Apr, [facility] [address] [id number] [place] [address] Apr, [facility] [address] [id number] [place] [address] Apr, [facility] [address] [id number] [place] [address] Apr, [facility] [address] [id number] [place] [address] March, [facility] [address] [id number] [place] [address] March, [facility] [address] [id number] [place] [address] March, [facility] [address] [id number] [place] [address] March, [facility] [address] [id number] [place] [address] March, [facility] [address] [id number] [place] [address] March, [facility] [address] [id number] [place] [address] March, [facility] [address] [id number] [place] [address] March, [facility] [address] [id number] [place] [address] March, [facility] [address] [id number] [place] [address] 04 Feb, 2012 [facility] [address] [id number] [place] [address] Feb, [facility] [address] [id number] [place] [address] 28 Jan, 2012 [facility] [address] [id number] [place] [address] 27 Jan, 2012 [facility] [address] [id number] [place] [address] 16 Jan, 2012 [facility] [address] [id number] [place] [address] 05 Jan, 2012 [facility] [address] [id number] [place] [address] 20 Dec, 2011 [facility] [address] [id number] [place] [address] 16 Dec, 2011 [facility] [address] [id number] [place] [address] 15 Dec, 2011 [facility] [address] [id number] [place] [address] Nov, [facility] [address] [id number] [place] [address] Oct, [facility] [address] [id number] [place] [address] 15 Oct, 2011 [facility] [address] [id number] [place] [address] 15 Oct, 2011 [facility] [address] [id number] [place] [address] 14 Oct, 2011 [facility] [address] [id number] [place] [address] 14 Oct, 2011 [facility] [address] [id number] [place] [address] 12 Oct, 2011 [facility] [address] [id number] [place] [address] 09 Oct, 2011 [facility] [id number] [place] [address] Oct, [facility] [id number] [place] [address] Sep, [facility] [id number] [place] [id number] Sep, [facility] [address] [id number] [place] [address] Sep, [facility] [id number] [place] [address] Sep, [facility] [address] [id number] [place] [address] Sep, [facility] [address] [id number] [place] [address] Sep, [facility] [address] [id number] [place] [address] Sep, [facility] [address] [id number] [place] [address] Sep, [facility] [address] [id number] [place] [address] Sep, [facility] [address] [id number] [place] [address] Aug, [facility] [address] [id number] [place] [address] Jul, [facility] [address] [id number] [place] [address] Oct, [facility] [address] [id number] [place] [address] Oct, [facility] [id number] [place] [address] Oct, IMMUNIZATIONS No Known Immunizations SOCIAL HISTORY [...]
--- OUTSIDE RECORDS SUMMARY | 2020-03-19 06:08 | XMS REPORT ---
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 91094420 Problem Chronic kidney disease, unspecified N18.9 Active 470830021 Problem Anemia, unspecified D64.9 Active 572206255 Problem Irritable bowel K58.9 Active 1074 3008 Problem Irritable bowel syndrome with diarrhea K58.0 Active 127648250 Problem Claudication I73.9 Active 3727122 6 Problem Intractable migraine without aura and with status migr ainosus G43.011 Active 648595751 Problem Peritoneal dialysis status Z99.2 Act moody 879334035 Problem Migraine without aura and without status migrain osus, not intractable G43.009 Active 751525658 Problem Other insomnia G47.09 Active 70905 2000 Problem Dysthymia F34.1 Active 75346961 Problem Chronic kidney disease, stage 4 (severe) N18.4 Active 494469638 Problem Migraine with aura and without status migrainosu s, not intractable G43.109 Active 7184995 Problem Autonomic neuropathy G90.9 Active 704611580 Problem Type 1 diabetes mellitus with complications E10.8 Active 427242524 Problem Menorrhagia with regular cycle N92.0 Active 589296338 Problem Other chronic pain G89.29 Active 8 7115693 Problem Lymphedema I89.0 Active 044100118 Problem Essential hypertension I10 Active 73528384 Problem Moderate episode of recurrent major depressive disorder F33.1 Active 772888437 Problem Type 1 diabetes mellitus without complications E10 .9 Active 642416654 Problem Primary insomnia F51.01 Active 397 2004 Problem Migraine G43.909 Active 26982222 Problem Low back pain M54.5 Active 378773 009 Problem Diastolic dysfunction I51.89 Active 8964679 Problem ESRF (end stage renal failure) N18.6 Active 75190102 Problem Restless legs G25.81 Active 528441 08 Problem Hyperthyroidism E05.90 Active 3448 6009 ALLERGIES No Information ENCOUNTERS Encounter Location Date Diagnosis [place] [address] [address] Jan, [place] [address] [address] Oct, Restless legs G25.81 [place] [address] [address] Oct, Encounter for Medicare annual wellness e xam Z00.00 ; 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 ; Migraine without aura and without status migrainosus, not intractable G43.009 ; Chronic kidney disease, stage 4 (severe) N18.4 ; Claudication I73.9 ; Peritoneal dialysis status Z99.2 ; Diastolic dysfunction I51.89 ; Primary insomnia F51.01 and Burn T30.0 [place] [address] [address] Sep, Moderate episode of recurrent major depr essive disorder F33.1 and Primary insomnia F51.01 [place] [address] [address] Aug, Hyperthyroidism E05.90 [place] [address] [address] May, Restless legs G25.81 [place] [address] [address] May, [place] [address] [address] May, [place] [address] [address] May, Type 1 diabetes mellitus with hypoglycem ia without coma E10.649 ; ESRF (end stage renal failure) N18.6 ; Leg cramps R25.2 ; Restless legs G25.81 and Low back pain M54.5 [facility] [address] [address] Apr, Low back pain M54.5 [facility] [address] [address] Apr, [facility] [address] [address] March, Low back pain M54.5 [facility] [address] [address] March, [facility] [address] [address] Feb, Low back pain M54.5 [facility] [address] [address] Jan, Low back pain M54.5 [facility] [address] [address] Jan, [facility] [address] [address] Jan, [facility] [address] [address] Jan, [facility] [address] [address] Dec, Type 1 diabetes mellitus with hypoglycem ia without coma E10.649 and Low back pain M54.5 [facility] [address] [address] Dec, Low back pain M54.5 [facility] [address] [address] Dec, Diastolic dysfunction I51.89 ; Essential hypertension I10 and Chronic kidney disease, stage 4 (severe) N18.4 [place] [address] [address] 11 Dec, 2018 RUQ abdominal pain R10.11 ; Type 1 diabe camryn mellitus without complications E10.9 ; Therapeutic drug monitoring Z51.81 ; Migraine with aura and without status migrainosus, not intractable G43.109 and Intractable migraine without aura and with status migrainosus G43.011 [place] [address] [address] Nov, Low back pain M54.5 [place] [address] [address] Nov, [place] [address] [address] Nov, Intractable migraine without aura and wi th status migrainosus G43.011 ; Lymphedema I89.0 ; Pain in right shoulder M25.511 ; Other chronic pain G89.29 ; Irritable bowel syndrome with diarrhea K58.0 ; Type 1 diabetes mellitus without complications E10.9 and Essential hypertension I10 [place] [address] [address] Oct, Low back pain M54.5 [place] [address] [address] Oct, [place] [address] [address] Oct, Orthostatic hypotension I95.1 ; Shortnes s of breath R06.02 ; Leg swelling M79.89 ; Type 1 diabetes mellitus without complications E10.9 and Claudication I73.9 [place] [address] [address] Sep, Low back pain M54.5 [place] [address] [address] Sep, Low back pain M54.5 [place] [address] [address] Aug, [facility] [address] [place] [id number] [place] [address] Aug, Migraine without aura and without status migrainosus, not intractable G43.009 [facility] [address] [address] Aug, Low back pain M54.5 [facility] [address] [facility] [id number] [address] [place] [address] Aug, Acute rhinosinusitis J01.[address].9 [facility] [address] [address] Jul, Low back pain M54.5 [facility] [address] [address] Jul, Migraine without aura and without status migrainosus, not intractable G43.009 [facility] [address] [address] Jun, Low back pain M54.5 [facility] [address] [address] Jun, [facility] [address] [address] Jun, Orthostatic hypotension I95.1 ; Shortnes s of breath R06.02 ; Type 1 diabetes mellitus without complications E10.9 and Leg swelling M79.89 [facility] [address] [address] Jun, Low back pain M54.5 [facility] [address] [address] Jun, [facility] [address] [address] May, Migraine without aura and without status migrainosus, not intractable G43.009 [facility] [address] [address] May, Migraine without aura and without status migrainosus, not intractable G43.009 ; Restless legs syndrome G25.81 ; Leg cramps R25.2 ; Chronic kidney disease, unspecified N18.9 ; Postural hypotension I95.1 ; Diarrhea, unspecified type R19.[address] [facility] [address] [address] May, [facility] [address] [address] May, [facility] [address] [address] May, Orthostatic hypotension I95.1 ; Shortnes s of breath R06.02 ; Type 1 diabetes mellitus with complications E10.8 and Leg swelling M79.89 [place] [address] [address] May, [place] [address] [address] May, Low back pain M54.5 [place] [address] [address] Apr, Type 1 diabetes mellitus with hyperglyce sebastian E10.65 [place] [address] [address] Apr, Low back pain M54.5 [facility] [address] [address] Apr, [facility] [address] [address] Apr, [facility] [address] [address] March, [place] [address] [address] March, Low back pain M54.5 [facility] [address] [address] March, [place] [address] [address] Feb, [place] [address] [address] Feb, Low back pain M54.5 [place] [address] [address] Jan, Restless legs syndrome G25.81 [place] [address] [address] Jan, Low back pain M54.5 [place] [address] [address] Jan, [place] [address] [address] Jan, Type 1 diabetes mellitus without complic ations E10.9 ; Low back pain M54.5 ; Cough R05 ; Diarrhea, unspecified type R19.7 ; Migraine without aura and without status migrainosus, not intractable G43.009 and Uses control Z30.9 [place] [address] [address] Dec, Low back pain M54.5 [place] [address] [address] Dec, [place] [address] [address] Nov, Well woman exam Z01.419 ; Menorrhagia wi th regular cycle N92.0 ; Vaginal dryness N89.8 and Migraine with aura and without status migrainosus, not intractable G43.109 [place] [address] [address] Nov, [place] [address] [address] Nov, Low back pain M54.5 [place] [address] [address] Oct, Low back pain M54.5 [facility] [address] [address] Oct, Migraine without aura and without status migrainosus, not intractable G43.009 [facility] [address] [address] Sep, Low back pain M54.5 [facility] [address] [address] Sep, [facility] [address] [address] Sep, Migraine without aura and without status migrainosus, not intractable G43.009 [place] [address] [address] Sep, Type 1 diabetes mellitus with hypoglycem ia without coma E10.649 ; Anemia D64.9 ; Migraine without aura and without status migrainosus, not intractable G43.009 ; Chronic kidney disease, unspecified N18.9 ; Autonomic neuropathy G90.9 and Postural hypotension I95.1 [place] [address] [address] Sep, Low back pain M54.5 [place] [address] [address] Aug, Low back pain M54.5 [place] [address] [address] 14 Jul, 2017 [facility] [address] [address] Jul, Low back pain M54.5 [facility] [address] [address] Jun, [facility] [address] [address] Jun, Low back pain M54.5 [facility] [address] [address] Jun, Migraine without aura and without status migrainosus, not intractable G43.009 [facility] [address] [address] Jun, Type 1 diabetes mellitus with hyperglyce sebastian E10.65 ; Dysthymia F34.1 and Migraine without aura and without status migrainosus, not intractable G43.009 [facility] [address] [address] Jun, [facility] [address] [address] May, Type 1 diabetes mellitus with hyperglyce sebastian E10.65 [place] [address] [address] May, Low back pain M54.5 [place] [address] [address] May, Type 1 diabetes mellitus with hyperglyce sebastian E10.65 [place] [address] [address] Apr, [place] [address] [address] Apr, Chronic kidney disease, stage 4 (severe) N18.4 [place] [address] [address] Apr, Low back pain M54.5 [place] [address] [address] March, [facility] [address] [address] March, Low back pain M54.5 [facility] [address] [address] Feb, [place] [address] [address] Feb, [facility] [address] [address] Feb, Low back pain M54.5 [place] [address] [address] Feb, Low back pain M54.5 [place] [address] [address] Feb, Migraine without aura and without status migrainosus, not intractable G43.009 [place] [address] [address] Feb, [place] [address] [address] Jan, Low back pain M54.5 [place] [address] [address] Jan, Type 1 diabetes mellitus without complic ations E10.9 ; Anemia D64.9 ; Chronic kidney disease, unspecified N18.9 ; Migraine without aura and without status migrainosus, not intractable G43.009 and Other insomnia G47.09 [place] [address] [address] Jan, [place] [address] [address] Dec, Low back pain M54.5 [place] [address] [address] Dec, [place] [address] [address] Dec, [place] [address] [address] 08 Dec, 2016 Shortness of breath R06.02 ; Type 1 diab etes mellitus without complications E10.9 and Leg swelling M79.89 [place] [address] [address] Nov, Low back pain M54.5 [place] [address] [address] Nov, Viral syndrome B34.9 [place] [address] [address] Oct, Low back pain M54.5 [facility] [address] [address] Oct, [facility] [address] [address] Oct, Low back pain M54.5 [facility] [address] [address] Sep, [facility] [address] [address] Sep, Fatigue, unspecified type R53.83 ; Type 1 diabetes mellitus without complications E10.[address] [facility] [address] [address] Sep, Low back pain M54.5 [facility] [address] [address] Sep, Type 1 diabetes mellitus with hyperglyce sebastian E10.65 [facility] [address] [address] Aug, Type 1 diabetes mellitus without complic ations E10.9 [facility] [address] [address] Aug, [facility] [address] [address] Aug, [facility] [address] [address] Jul, [facility] [address] [address] 14 Jul, 2016 Low back pain M54.5 [facility] [address] [address] 12 Jul, 2016 Hyperkalemia, diminished renal excretion E87.5 [facility] [address] [address] Jul, Hyperkalemia, diminished renal excretion E87.5 [facility] [address] [address] Jun, [facility] [address] [address] Jun, Low back pain M54.5 [facility] [address] [address] Jun, Anemia D64.9 ; Autonomic neuropathy G90. 9 and Postural hypotension I95.1 [place] [address] [address] Jun, [place] [address] [address] May, Type 1 diabetes mellitus with complicati ons E10.8 and Anemia D64.9 [place] [address] [address] May, Low back pain M54.5 [place] [address] [address] Apr, [place] [address] [address] Apr, Low back pain M54.5 [place] [address] [address] Apr, [place] [address] [address] Apr, [place] [address] [address] March, Low back pain M54.5 and Other chronic pa in G89.29 [place] [address] [address] March, Type 1 diabetes mellitus without complic ations E10.9 [facility] [address] [address] March, [place] [address] [place] [id number] [place] [address] March, [facility] [address] [address] Feb, [facility] [address] [address] Feb, Type 1 diabetes mellitus without complic ations E10.9 [place] [address] [address] Feb, Trochanteric bursitis, right hip M70.61 [place] [address] [address] Jan, [place] [address] [address] Jan, [place] [address] [address] Dec, Type 1 diabetes mellitus with complicati ons E10.8 [place] [address] [address] Dec, [place] [address] [address] Dec, Anemia D64.9 ; Autonomic neuropathy G90. 9 and Postural hypotension I95.1 [place] [address] [address] Dec, [place] [address] [address] Nov, Sore throat J02.9 [facility] [address] [address] Nov, Type 1 diabetes mellitus with complicati ons E10.8 [place] [address] [address] Nov, Type 1 diabetes mellitus with diabetic n ephropathy E10.21 ; Proteinuria, unspecified R80.9 and Chronic kidney disease, unspecified N18.9 [place] [address] [place] [id number] [place] [address] 14 Nov, 2015 [facility] [address] [place] [id number] [place] [address] Nov, Trochanteric bursitis, right hip M70.61 [facility] [address] [place] [id number] [place] [address] Nov, [facility] [address] [address] Oct, [facility] [address] [place] [id number] [place] [address] Oct, [facility] [address] [address] Oct, [facility] [address] [place] [id number] [place] [address] Sep, [facility] [address] [address] Sep, [facility] [address] [address] Sep, Type 2 diabetes mellitus with complicati on E11.8 and Right hip pain M25.551 [facility] [address] [place] [id number] [place] [address] Sep, [facility] [address] [place] [id number] [place] [address] Aug, [facility] [address] [address] Aug, [facility] [address] [place] [id number] [place] [address] Aug, [facility] [address] [address] Aug, Type 1 diabetes mellitus without complic ations E10.9 [facility] [address] [place] [id number] [place] [address] 16 Jul, 2015 [facility] [address] [place] [address] [address] Jul, 2015 [facility] [address] [address] Jul, [facility] [address] [address] Jun, [facility] [address] [address] Jun, [facility] [address] [address] Jun, [facility] [address] [address] Jun, [facility] [address] [address] Jun, [facility] [address] [address] Jun, Diabetes mellitus without mention of com plication, type I [juvenile type], not stated as uncontrolled 250.01 [facility] [address] [address] May, [facility] [address] [address] May, [facility] [address] [address] May, [facility] [address] [address] May, Autonomic neuropathy 337.9 ; Postural hy potension 458.[address] [facility] [address] [address] May, [facility] [address] [address] Apr, [facility] [address] [address] Apr, [facility] [address] [address] Apr, [facility] [place] [facility] [address] [facility] [id number] [facility] [address] Apr, [facility] [place] [facility] [address] [facility] [id number] [facility] [address] Apr, [facility] [place] [facility] [address] [id number] [place] [address] March, [facility] [place] [facility] [address] [id number] [facility] [address] March, [facility] [place] [facility] [address] [facility] [id number] [facility] [address] March, [facility] [place] [facility] [address] [id number] [place] [address] March, [facility] [place] [facility] [address] [id number] [place] [address] March, [facility] [place] [facility] [address] [id number] [facility] [address] Feb, [facility] [place] [facility] [address] [id number] [place] [address] Feb, [facility] [place] [facility] [address] [id number] [place] [address] Feb, [facility] [place] [facility] [address] [id number] [place] [address] 30 Jan, 2015 [facility] [place] [facility] [address] [id number] [place] [address] Jan, [facility] [place] [facility] [address] [facility] [id number] [facility] [address] Jan, [facility] [place] [facility] [address] [id number] [place] [address] Jan, [facility] [place] [facility] [address] [id number] [place] [address] Jan, [facility] [place] [facility] [address] [id number] [place] [address] Jan, [facility] [place] [facility] [address] [id number] [place] [address] Jan, [facility] [place] [facility] [address] [id number] [place] [address] Jan, [facility] [place] [facility] [address] [id number] [place] [address] Jan, [facility] [place] [facility] [address] [id number] [place] [address] Jan, [facility] [place] [facility] [address] [id number] [place] [address] Jan, [facility] [place] [facility] [address] [id number] [place] [address] Jan, [facility] [place] [facility] [address] [id number] [place] [address] Jan, [facility] [place] [facility] [address] [id number] [place] [address] Dec, [facility] [place] [facility] [address] [id number] [place] [address] Dec, [facility] [place] [facility] [address] [id number] [place] [address] Dec, [facility] [place] [facility] [address] [id number] [place] [address] Dec, [facility] [place] [facility] [address] [id number] [place] [address] Dec, [facility] [place] [facility] [address] [id number] [place] [address] Dec, [facility] [place] [facility] [address] [id number] [place] [address] Dec, [facility] [place] [facility] [address] [id number] [place] [address] Dec, [facility] [place] [facility] [address] [id number] [place] [address] Nov, [facility] [place] [facility] [address] [id number] [place] [address] Nov, [facility] [place] [facility] [address] [id number] [place] [address] Nov, [facility] [place] [facility] [address] [id number] [place] [address] Nov, [facility] [place] [facility] [address] [id number] [place] [address] Nov, [facility] [place] [facility] [address] [id number] [place] [address] Nov, [facility] [place] [facility] [address] [id number] [place] [address] Nov, [facility] [address] [id number] [place] [address] Nov, [facility] [address] [id number] [place] [address] Nov, [facility] [address] [id number] [place] [address] Oct, [facility] [address] [id number] [place] [address] Oct, [facility] [address] [id number] [place] [address] Oct, [facility] [address] [id number] [place] [address] Oct, [facility] [address] [id number] [place] [address] Oct, [facility] [address] [id number] [place] [address] Oct, [facility] [address] [id number] [place] [address] Oct, [facility] [address] [id number] [place] [address] Oct, [facility] [address] [id number] [place] [address] Oct, [facility] [address] [id number] [place] [address] Oct, [facility] [address] [id number] [place] [address] Oct, [facility] [address] [id number] [place] [address] Oct, [facility] [address] [id number] [place] [address] Oct, [facility] [place] [facility] [address] [id number] [place] [address] Oct, [facility] [place] [facility] [address] [id number] [place] [address] Sep, [facility] [place] [facility] [address] [id number] [place] [address] Sep, [facility] [place] [facility] [id number] [place] [address] Sep, [facility] [place] [facility] [address] [id number] [place] [address] Sep, [facility] [place] [facility] [address] [id number] [place] [address] Aug, [facility] [place] [facility] [address] [id number] [place] [address] Aug, [facility] [place] [facility] [address] [id number] [place] [address] Aug, [facility] [place] [facility] [address] [id number] [place] [address] Aug, [facility] [place] [facility] [address] [id number] [place] [address] Aug, [facility] [place] [facility] [address] [id number] [place] [address] Aug, [facility] [place] [facility] [address] [id number] [place] [address] Aug, [facility] [place] [facility] [address] [id number] [place] [address] Aug, [facility] [place] [facility] [address] [id number] [place] [address] 02 Aug, 2013 [facility] [place] [facility] [address] [id number] [place] [address] 02 Aug, 2013 [facility] [place] [facility] [address] [id number] [place] [address] 29 Sep, 2013 [facility] [place] [facility] [address] [id number] [place] [address] 29 Sep, 2013 [facility] [place] [facility] [address] [facility] [id number] [place] [address] 29 Sep, 2013 [facility] [place] [facility] [address] [id number] [place] [address] 29 Sep, 2013 [facility] [place] [facility] [address] [id number] [place] [address] 22 Sep, 2013 [facility] [place] [facility] [address] [id number] [place] [address] 22 Jul, 2013 [facility] [place] [facility] [address] [id number] [place] [address] 19 Sep, 2013 [facility] [place] [facility] [address] [id number] [place] [address] 19 Sep, 2013 [facility] [place] [facility] [address] [id number] [place] [address] 11 Sep, 2013 [facility] [place] [facility] [address] [id number] [place] [address] 11 Sep, 2013 [facility] [place] [facility] [address] [id number] [place] [address] 10 Sep, 2013 [facility] [place] [facility] [address] [id number] [place] [address] 10 Sep, 2013 [facility] [place] [facility] [address] [id number] [place] [address] 08 Sep, 2013 [facility] [place] [facility] [address] [id number] [place] [address] 08 Sep, 2013 [facility] [place] [facility] [address] [id number] [place] [address] 03 Sep, 2013 [facility] [place] [facility] [address] [id number] [place] [address] 03 Jul, 2013 [facility] [place] [facility] [address] [id number] [place] [address] Jul, 2013 [facility] [place] [facility] [address] [facility] [id number] [facility] [address] Jul, [facility] [place] [facility] [address] [id number] [place] [address] Jun, [facility] [place] [facility] [address] [id number] [place] [address] Jun, [facility] [place] [facility] [address] [id number] [place] [address] Jun, [facility] [place] [facility] [address] [facility] [id number] [facility] [address] Jun, [facility] [place] [facility] [address] [id number] [facility] [address] Jun, [facility] [place] [facility] [address] [facility] [id number] [place] [address] Jun, [facility] [place] [facility] [address] [id number] [facility] [address] Jun, [facility] [place] [facility] [address] [facility] [id number] [facility] [address] Jun, [facility] [place] [facility] [address] [id number] [facility] [address] Jun, [facility] [place] [facility] [address] [id number] [facility] [address] Jun, [facility] [place] [facility] [address] [id number] [facility] [address] Jun, [facility] [place] [facility] [address] [facility] [id number] [facility] [address] Jun, [facility] [place] [facility] [address] [id number] [facility] [address] Jun, [facility] [place] [facility] [address] [facility] [id number] [place] [address] Jun, [facility] [place] [facility] [address] [facility] [id number] [facility] [address] Jun, [facility] [place] [facility] [address] [facility] [id number] [place] [address] May, [facility] [place] [facility] [address] [id number] [place] [address] May, [facility] [place] [facility] [address] [facility] [id number] [place] [address] May, [facility] [place] [facility] [address] [facility] [id number] [place] [address] May, [facility] [place] [facility] [address] [id number] [place] [address] May, [facility] [place] [facility] [address] [id number] [place] [address] May, [facility] [place] [facility] [address] [id number] [place] [address] May, [facility] [place] [facility] [address] [id number] [place] [address] May, [facility] [place] [facility] [address] [id number] [place] [address] Apr, [facility] [place] [facility] [address] [id number] [place] [address] Apr, [facility] [place] [facility] [address] [id number] [place] [address] Apr, [facility] [place] [facility] [address] [facility] [id number] [place] [address] Apr, [facility] [place] [facility] [address] [id number] [place] [address] Apr, [facility] [place] [facility] [address] [id number] [place] [address] Apr, [facility] [place] [facility] [address] [id number] [place] [address] Apr, [facility] [place] [facility] [address] [id number] [place] [address] Apr, [facility] [place] [facility] [address] [id number] [place] [address] Apr, [facility] [place] [facility] [address] [id number] [place] [address] Apr, [facility] [place] [facility] [address] [id number] [place] [address] Apr, [facility] [place] [facility] [address] [facility] [id number] [place] [address] Apr, [facility] [place] [facility] [address] [id number] [place] [address] Apr, [facility] [place] [facility] [address] [id number] [place] [address] Apr, [facility] [place] [facility] [address] [id number] [place] [address] Apr, [facility] [place] [facility] [address] [id number] [place] [address] Apr, [facility] [place] [facility] [address] [id number] [place] [address] Apr, [facility] [place] [facility] [address] [id number] [place] [address] Apr, [facility] [place] [facility] [address] [id number] [place] [address] March, [facility] [place] [facility] [address] [id number] [place] [address] March, [facility] [place] [facility] [address] [id number] [place] [address] March, [facility] [place] [facility] [address] [id number] [place] [address] March, [facility] [place] [facility] [address] [id number] [place] [address] March, [facility] [place] [facility] [address] [id number] [place] [address] March, [facility] [place] [facility] [address] [id number] [facility] [address] March, [facility] [place] [facility] [address] [facility] [id number] [facility] [address] March, [facility] [place] [facility] [address] [facility] [id number] [facility] [address] March, [facility] [place] [facility] [address] [id number] [place] [address] Feb, [facility] [place] [facility] [address] [facility] [id number] [place] [address] Feb, [facility] [place] [facility] [address] [id number] [facility] [address] Feb, [facility] [place] [facility] [address] [id number] [place] [address] Feb, [facility] [place] [facility] [address] [id number] [facility] [address] Feb, [facility] [place] [facility] [address] [id number] [facility] [address] Feb, [facility] [place] [facility] [address] [id number] [facility] [address] Feb, [facility] [place] [facility] [address] [id number] [place] [address] Feb, [facility] [place] [facility] [address] [id number] [place] [address] Feb, [facility] [place] [facility] [address] [id number] [facility] [address] Feb, [facility] [place] [facility] [address] [id number] [place] [address] Feb, [facility] [place] [facility] [address] [id number] [place] [address] Feb, [facility] [place] [facility] [address] [id number] [facility] [address] Feb, [facility] [place] [facility] [address] [id number] [place] [address] Jan, [facility] [place] [facility] [address] [facility] [id number] [facility] [address] Jan, [facility] [place] [facility] [address] [facility] [id number] [facility] [address] Jan, [facility] [place] [facility] [address] [id number] [facility] [address] Jan, [facility] [place] [facility] [address] [facility] [id number] [facility] [address] Jan, [facility] [place] [facility] [address] [facility] [id number] [facility] [address] Jan, [facility] [place] [facility] [address] [id number] [place] [address] Jan, [facility] [place] [facility] [address] [id number] [place] [address] Jan, [facility] [place] [facility] [address] [id number] [place] [address] Dec, [facility] [place] [facility] [address] [facility] [id number] [facility] [address] Dec, [facility] [place] [facility] [address] [id number] [place] [address] Dec, [facility] [place] [facility] [address] [id number] [place] [address] Dec, [facility] [place] [facility] [address] [id number] [place] [address] Dec, [facility] [place] [facility] [address] [facility] [id number] [place] [address] Dec, [facility] [place] [facility] [address] [id number] [place] [address] Dec, [facility] [place] [facility] [address] [id number] [place] [address] Dec, [facility] [place] [facility] [address] [id number] [place] [address] Dec, [facility] [place] [facility] [address] [id number] [place] [address] Dec, [facility] [place] [facility] [address] [id number] [place] [address] Nov, [facility] [place] [facility] [address] [id number] [place] [address] Nov, [facility] [place] [facility] [address] [id number] [place] [address] Nov, [facility] [place] [facility] [address] [id number] [place] [address] Nov, [facility] [place] [facility] [address] [id number] [place] [address] Nov, [facility] [place] [facility] [address] [id number] [place] [address] Nov, [facility] [place] [facility] [address] [id number] [place] [address] Nov, [facility] [place] [facility] [address] [id number] [place] [address] Nov, [facility] [place] [facility] [address] [id number] [place] [address] Nov, [facility] [place] [facility] [address] [id number] [place] [address] Nov, [facility] [place] [facility] [address] [id number] [place] [address] Oct, [facility] [place] [facility] [address] [id number] [place] [address] Oct, [facility] [place] [facility] [address] [id number] [place] [address] 18 Oct, 2013 [facility] [place] [facility] [address] [id number] [place] [address] Oct, [facility] [place] [facility] [address] [id number] [place] [address] 17 Oct, 2013 [facility] [place] [facility] [address] [id number] [place] [address] 17 Oct, 2013 [facility] [place] [facility] [address] [id number] [place] [address] 16 Oct, 2013 [facility] [place] [facility] [address] [id number] [place] [address] Oct, [facility] [place] [facility] [address] [id number] [place] [address] Oct, [facility] [place] [facility] [address] [id number] [place] [address] Oct, [facility] [place] [facility] [address] [id number] [place] [address] Oct, [facility] [place] [facility] [address] [id number] [place] [address] Oct, [facility] [place] [facility] [address] [id number] [place] [address] Oct, [facility] [place] [facility] [address] [id number] [place] [address] Oct, [facility] [place] [facility] [address] [id number] [place] [address] Sep, [facility] [place] [facility] [address] [id number] [place] [address] Sep, [facility] [place] [facility] [address] [id number] [place] [address] Sep, [facility] [place] [facility] [address] [id number] [place] [address] Sep, [facility] [place] [facility] [address] [id number] [place] [address] Sep, [facility] [place] [facility] [id number] [place] [address] Sep, [facility] [place] [facility] [address] [id number] [place] [address] Aug, [facility] [place] [facility] [address] [id number] [place] [address] Aug, [facility] [place] [facility] [address] [id number] [place] [address] 17 Aug, 2012 [facility] [place] [facility] [address] [id number] [place] [address] 17 Aug, 2012 [facility] [place] [facility] [address] [id number] [place] [address] 10 Aug, 2012 [facility] [place] [facility] [address] [id number] [place] [address] 10 Aug, 2012 [facility] [place] [facility] [address] [id number] [place] [address] 07 Aug, 2012 [facility] [place] [facility] [address] [id number] [place] [address] 02 Aug, 2012 [facility] [place] [facility] [address] [id number] [place] [address] 02 Aug, 2012 [facility] [place] [facility] [address] [id number] [place] [address] 25 Sep, 2012 [facility] [place] [facility] [address] [id number] [place] [address] 23 Sep, 2012 [facility] [place] [facility] [address] [id number] [place] [address] 21 Sep, 2012 [facility] [place] [facility] [address] [id number] [place] [address] 20 Sep, 2012 [facility] [place] [facility] [address] [id number] [place] [address] 18 Sep, 2012 [facility] [place] [facility] [address] [id number] [place] [address] 17 Sep, 2012 [facility] [place] [facility] [address] [id number] [place] [address] 16 Sep, 2012 [facility] [place] [facility] [address] [id number] [place] [address] 11 Sep, 2012 [facility] [place] [facility] [address] [id number] [place] [address] 09 Sep, 2012 [facility] [place] [facility] [address] [id number] [place] [address] 09 Sep, 2012 [facility] [place] [facility] [address] [id number] [facility] [address] Jul, 2012 [facility] [place] [facility] [address] [facility] [id number] [place] [address] Jul, [facility] [place] [facility] [address] [facility] [id number] [facility] [address] Jun, [facility] [place] [facility] [address] [id number] [place] [address] Jun, [facility] [place] [facility] [address] [id number] [place] [address] Jun, [facility] [place] [facility] [address] [id number] [place] [address] Jun, [facility] [place] [facility] [address] [id number] [facility] [address] Jun, [facility] [place] [facility] [address] [id number] [facility] [address] Jun, [facility] [place] [facility] [address] [facility] [id number] [facility] [address] Jun, [facility] [place] [facility] [address] [id number] [facility] [address] Jun, [facility] [place] [facility] [address] [id number] [facility] [address] Jun, [facility] [place] [facility] [address] [id number] [place] [address] May, [facility] [place] [facility] [address] [facility] [id number] [facility] [address] May, [facility] [place] [facility] [address] [id number] [facility] [address] May, [facility] [place] [facility] [address] [facility] [id number] [facility] [address] May, [facility] [place] [facility] [address] [id number] [facility] [address] May, [facility] [place] [facility] [address] [id number] [place] [address] May, [facility] [place] [facility] [address] [id number] [facility] [address] May, [facility] [place] [facility] [address] [id number] [place] [address] March, [facility] [place] [facility] [address] [id number] [place] [address] March, [facility] [place] [facility] [address] [id number] [place] [address] March, [facility] [place] [address] [id number] [place] [address] Dec, [facility] [address] [id number] [place] [address] Nov, [facility] [address] [id number] [place] [address] Aug, [facility] [address] [id number] [place] [address] Aug, [facility] [address] [id number] [place] [address] Jun, [facility] [address] [id number] [place] [address] Jun, [facility] [address] [id number] [place] [address] Jun, [facility] [address] [id number] [place] [address] Jun, [facility] [address] [facility] [id number] [place] [address] May, [facility] [address] [id number] [place] [address] May, [facility] [address] [id number] [place] [address] May, [facility] [address] [id number] [place] [address] May, [facility] [address] [id number] [place] [address] May, [facility] [address] [id number] [place] [address] May, [facility] [address] [id number] [place] [address] May, [facility] [address] [id number] [place] [address] Apr, [facility] [address] [id number] [place] [address] Apr, [facility] [address] [id number] [place] [address] Apr, [facility] [address] [id number] [place] [address] Apr, [facility] [address] [id number] [place] [address] March, [facility] [address] [id number] [place] [address] March, [facility] [address] [id number] [place] [address] March, [facility] [address] [id number] [place] [address] March, [facility] [address] [id number] [place] [address] March, [facility] [address] [id number] [place] [address] March, [facility] [address] [id number] [place] [address] March, [facility] [address] [id number] [place] [address] March, [facility] [address] [id number] [place] [address] March, [facility] [address] [id number] [place] [address] 04 Feb, 2012 [facility] [address] [id number] [place] [address] Feb, [facility] [address] [id number] [place] [address] 28 Jan, 2012 [facility] [address] [id number] [place] [address] 27 Jan, 2012 [facility] [address] [id number] [place] [address] 16 Jan, 2012 [facility] [address] [id number] [place] [address] 05 Jan, 2012 [facility] [address] [id number] [place] [address] 20 Dec, 2011 [facility] [address] [id number] [place] [address] 16 Dec, 2011 [facility] [address] [id number] [place] [address] 15 Dec, 2011 [facility] [address] [id number] [place] [address] Nov, [facility] [address] [id number] [place] [address] Oct, [facility] [address] [id number] [place] [address] 15 Oct, 2011 [facility] [address] [id number] [place] [address] 15 Oct, 2011 [facility] [address] [id number] [place] [address] 14 Oct, 2011 [facility] [address] [id number] [place] [address] 14 Oct, 2011 [facility] [address] [id number] [place] [address] 12 Oct, 2011 [facility] [address] [id number] [place] [address] 09 Oct, 2011 [facility] [id number] [place] [address] Oct, [facility] [id number] [place] [address] Sep, [facility] [id number] [place] [address] Sep, [facility] [id number] [place] [address] Sep, [facility] [id number] [place] [address] Sep, [facility] [id number] [place] [address] Sep, [facility] [id number] [place] [address] Sep, [facility] [id number] [place] [address] Sep, [facility] [id number] [place] [address] Sep, [facility] [id number] [place] [address] Sep, [facility] [id number] [place] [address] Aug, [facility] [id number] [place] [address] Jul, [facility] [id number] [place] [address] Oct, [facility] [id number] [place] [address] Oct, [facility] [id number] [place] [address] Oct, IMMUNIZATIONS No Known Immunizations SOCIAL HISTORY [...]
[2020-03-19 06:10] LABS: POTASSIUM 3.7 MMOL/L (3.6-5.0)
[2020-03-19 06:13] LABS: TOTAL PROTEIN 5.8 GM/DL (6.4-8.2)
[2020-03-19 06:14] LABS: BILIRUBIN,TOTAL 0.2 MG/DL (0.1-1.0)
[2020-03-19 06:16] LABS: CREATININE SERUM 5.23 MG/DL (0.60-1.30)
[2020-03-19 06:19] LABS: MAGNESIUM 2.4 MG/DL (1.6-2.4)
[2020-03-19 06:21] LABS: BILIRUBIN,URINE NEGATIVE (NEGATIVE); CLARITY,URINE CLEAR; COLOR,URINE YELLOW; GLUCOSE, URINE (UA) 1+ (NEGATIVE); KETONES,URINE NEGATIVE (NEGATIVE); LEUKOCYTE ESTERASE ,URINE NEGATIVE (NEGATIVE); NITRITE,URINE NEGATIVE (NEGATIVE); PROTEIN,URINE 1+ (NEGATIVE)
[2020-03-19 06:35] LABS: BACTERIA,URINE FEW /HPF; RBC,URINE RARE /HPF; WBC,URINE RARE /HPF
--- OUTSIDE RECORDS SUMMARY | 2020-03-19 06:36 | XMS REPORT | Continuity of Care Document ---
Demographics Preferred Language Unknown Marital Status Unknown Ep[employer]opalian Affiliation Unknown Race Unknown Ethnic Group Unknown Author Organization Unknown Address Unknown Phone Unavailable Allergies Active Description Code Type Severity Reaction Onset Reported/Identified Relationship to Patient Clinical Status Yes simvastatin Drug Allergy N/A N/A 10/02/2011 Yes simvastatin Drug Allergy 10/02/2011 Yes lisinopril Drug Allergy N/A N/A 01/09/2012 Yes lisinopril Drug Allergy 01/09/2012 Yes Cozaar 25 mg Tablet Drug Aller gy N/A N/A 02/27/2012 Yes niacin 500 mg Tablet Drug Quinton rgy N/A N/A 02/27/2012 Yes Cozaar 25 mg Tablet Drug Aller gy 02/27/2012 Yes niacin 500 mg Tablet Drug Quinton rgy 02/27/2012 Yes lisinopril [id number] Drug Allerg y Severe ANAPHYLAXIS 03/18/2012 Yes Edillcw-Uzb-Bks Reductase Inhibitor [id number] Drug Allergy Severe ANAPHYLAXIS 03/18/2012 Yes gabapentin Drug Allergy N/A N/A 11/09/2013 Yes Cozaar,Niacin, Simvastatin Coz aar,Niacin, Simvastatin Unknown N/A 5 Yes gabapentin [id number] Drug Allerg y Unknown N/A 04/23/2018 Yes losartan [id number] Drug Allergy Unknown N/A 04/23/2018 Yes niacin [id number] Drug Allergy Unknown N/A 04/23/2018 Yes midazolam [id number] Drug Allergy Unknown HIVES 06/06/2018 Medications There is no data. Problems Date Dx Coded Attending Type Code Diagnosis Diagnosed By 10/24/1011 COREY NGUYEN MD, Ot D63. 1 ANEMIA IN CHRONIC KIDNEY DISEASE 10/24/1011 COREY NGUYEN MD, Ot E10. 21 TYPE 1 DIABETES MELLITUS WITH DIABETIC N 10/24/1011 COREY NGUYEN MD, Ot K58. 9 IRRITABLE BOWEL SYNDROME WITHOUT DIARRHE 10/24/1011 COREY NGUYEN MD, Ot N18. 9 CHRONIC KIDNEY DISEASE, UNSPECIFIED 10/24/1011 COREY NGUYEN MD, Ot Z79. 4 SPARE HAND (CURRENT) USE OF INSULIN 10/24/1011 COREY NGUYEN MD Ot Z79.899 OTHER LONGTERM (CURRENT) DRUG THERAPY 10/24/1011 COREY NGUYEN MD Ot Z87.891 PERSONAL HISTORY OF NICOTINE DEPENDENCE 10/24/1358 COREY NGUYEN MD Ot D63. 1 ANEMIA IN CHRONIC KIDNEY DISEASE 10/24/1358 COREY NGUYEN MD Ot E10. 21 TYPE 1 DIABETES MELLITUS WITH DIABETIC N 10/24/1358 COREY NGUYEN MD Ot K58. 9 IRRITABLE BOWEL SYNDROME WITHOUT DIARRHE 10/24/1358 COREY NGUYEN MD, Ot N18. 3 CHRONIC KIDNEY DISEASE, STAGE 3 (MODERAT 10/24/1358 COREY NGUYEN MD, Ot Z79. 4 SPARE HAND (CURRENT) USE OF INSULIN 10/24/1358 COREY NGUYEN MD, Ot Z79.899 OTHER SPARE HAND (CURRENT) DRUG THERAPY 10/24/1358 COREY NGUYEN MD, Ot Z87.891 PERSONAL HISTORY OF NICOTINE DEPENDENCE 10/24/1628 ALAN CARABALLO Ot M25.511 PAIN IN RIGHT SHOULDER 11/04/2009 ALAN CARABALLO APRN 250.01 Diabetes Mellitus Type I 11/04/2009 250.01 Ros betes Mellitus Type I 11/04/2009 250.01 Ros betes Mellitus Type I 11/04/2009 250.01 Ros betes Mellitus Type I 11/04/2009 250.01 Ros betes Mellitus Type I 11/04/2009 250.01 Ros betes Mellitus Type I 11/04/2009 LORENA PIERSON DO 250.01 Diabetes Mellitus Type I 11/04/2009 LORENA PIERSON DO 250.01 Diabetes Mellitus Type I 11/04/2009 LORENA PIERSON DO 250.01 Diabetes Mellitus Type I 11/04/2009 LORENA PIERSON DO 250.01 Diabetes Mellitus Type I 11/04/2009 ALAN CARABALLO APRN 250.01 Diabetes Mellitus Type I 11/04/2009 LORENA PIERSON DO 250.01 Diabetes Mellitus Type I 11/04/2009 ALAN CARABALLO APRN S 250.01 Diabetes Mellitus Type I 11/04/2009 ALAN CARABALLO APRN 250.01 Diabetes Mellitus Type I 11/04/2009 RASHMI SOFTWARE QUALITY TESTER, ALAN S 250.01 Diabetes Mellitus Type I 11/04/2009 RASHMI SOFTWARE QUALITY TESTER, ALAN S 250.01 Diabetes Mellitus Type I 11/04/2009 PIERSON DO, LORENA K 250.01 Diabetes Mellitus Type I 11/04/2009 PIERSON DO, LORENA K 250.01 Diabetes Mellitus Type I 11/04/2009 RASHMI SOFTWARE QUALITY TESTER, ALAN S 250.01 Diabetes Mellitus Type I 11/04/2009 RASHMI SOFTWARE QUALITY TESTER, ALAN S 250.01 Diabetes Mellitus Type I 11/04/2009 NADINE SOFTWARE QUALITY TESTER, CHEN A 250.01 Diabetes Mellitus Type I 11/04/2009 RASHMI SOFTWARE QUALITY TESTER, ALAN S 250.01 Diabetes Mellitus Type I 11/04/2009 250.01 Ros betes Mellitus Type I 11/04/2009 RASHMI SOFTWARE QUALITY TESTER, ALAN S 250.01 Diabetes Mellitus Type I 11/04/2009 RASHMI SOFTWARE QUALITY TESTER, ALAN S 250.01 Diabetes Mellitus Type I 11/04/2009 RASHMI SOFTWARE QUALITY TESTER, ALAN S 250.01 Diabetes Mellitus Type I 11/04/2009 RASHMI SOFTWARE QUALITY TESTER, ALAN S 250.01 Diabetes Mellitus Type I 12/14/2009 RASHMI SOFTWARE QUALITY TESTER, ALAN S 250.03 DIABETES MELLITUS TYPE 1 - UNCONTROLLED 12/14/2009 250.03 ROS BETES MELLITUS TYPE 1 - UNCONTROLLED 12/14/2009 250.03 ROS BETES MELLITUS TYPE 1 - UNCONTROLLED 12/14/2009 250.03 ROS BETES MELLITUS TYPE 1 - UNCONTROLLED 12/14/2009 250.03 ROS BETES MELLITUS TYPE 1 - UNCONTROLLED 12/14/2009 250.03 ROS BETES MELLITUS TYPE 1 - UNCONTROLLED 12/14/2009 PIERSON DO, LORENA K 250.03 DIABETES MELLITUS TYPE 1 - UNCONTROLLED 12/14/2009 PIERSON DO, LORENA K 250.03 DIABETES MELLITUS TYPE 1 - UNCONTROLLED 12/14/2009 PIERSON DO, LORENA K 250.03 DIABETES MELLITUS TYPE 1 - UNCONTROLLED 12/14/2009 PIERSON DO, LORENA K 250.03 DIABETES MELLITUS TYPE 1 - UNCONTROLLED 12/14/2009 RASHMI SOFTWARE QUALITY TESTER, ALAN S 250.03 DIABETES MELLITUS TYPE 1 - UNCONTROLLED 12/14/2009 PIERSON DO, LORENA K 250.03 DIABETES MELLITUS TYPE 1 - UNCONTROLLED 12/14/2009 RASHMI HARVEYN, ALAN S 250.03 DIABETES MELLITUS TYPE 1 - UNCONTROLLED 12/14/2009 RASHMI HARVEYN, ALAN S 250.03 DIABETES MELLITUS TYPE 1 - UNCONTROLLED 12/14/2009 RASHMI SOFTWARE QUALITY TESTER, ALAN S 250.03 DIABETES MELLITUS TYPE 1 - UNCONTROLLED 12/14/2009 RASHMI SOFTWARE QUALITY TESTER, ALAN S 250.03 DIABETES MELLITUS TYPE 1 [...] MELLITUS TYPE 1 - UNCONTROLLED 12/14/2009 250.03 ROS BETES MELLITUS TYPE 1 - UNCONTROLLED 12/14/2009 RASHMI GRAVES, ALAN S 250.03 DIABETES MELLITUS TYPE 1 - UNCONTROLLED 12/14/2009 RASHMI GRAVES, ALAN S 250.03 DIABETES MELLITUS TYPE 1 - UNCONTROLLED 12/14/2009 RASHMI HARVEYN, ALAN S 250.03 DIABETES MELLITUS TYPE 1 - UNCONTROLLED 12/14/2009 RASHMI GRAVES ALAN S 250.03 DIABETES MELLITUS TYPE 1 - UNCONTROLLED 05/29/2010 Ot 250.81 05/29/2010 Ot 780.39 05/29/2010 Ot V58.67 06/07/2010 Ot 250.81 06/07/2010 Ot 599.0 12/17/2010 Ot 250.01 12/17/2010 Ot 789.00 12/17/2010 Ot V58.67 05/25/2011 Ot 782.1 NONS PECIF SKIN ERUPT NEC 08/05/2011 Ot 372.30 CON JUNCTIVITIS NOS 08/09/2011 ALAN CARABALLO APRN S 372.00 Acute Conjunctivitis Unspecified 08/09/2011 372.00 Acu te Conjunctivitis Unspecified 08/09/2011 372.00 Acu te Conjunctivitis Unspecified 08/09/2011 372.00 Acu te Conjunctivitis Unspecified 08/09/2011 372.00 Acu te Conjunctivitis Unspecified 08/09/2011 372.00 Acu te Conjunctivitis Unspecified 08/09/2011 PIERSON DO, LORENA K 372.00 Acute Conjunctivitis Unspecified 08/09/2011 PIERSON DO, LORENA K 372.00 Acute Conjunctivitis Unspecified 08/09/2011 PIERSON DO, LORENA K 372.00 Acute Conjunctivitis Unspecified 08/09/2011 PIERSON DO, LORENA K 372.00 Acute Conjunctivitis Unspecified 08/09/2011 RASHMI SOFTWARE QUALITY TESTER, ALAN S 372.00 Acute Conjunctivitis Unspecified 08/09/2011 PIERSON DO, LORENA K 372.00 Acute Conjunctivitis Unspecified 08/09/2011 RASHMI SOFTWARE QUALITY TESTER, ALAN S 372.00 Acute Conjunctivitis Unspecified 08/09/2011 RASHMI SOFTWARE QUALITY TESTER, ALAN S 372.00 Acute Conjunctivitis Unspecified 08/09/2011 RASHMI SOFTWARE QUALITY TESTER, ALAN S 372.00 Acute Conjunctivitis Unspecified 08/09/2011 RASHMI SOFTWARE QUALITY TESTER, ALAN S 372.00 Acute Conjunctivitis Unspecified 08/09/2011 PIERSON DO, LORENA K 372.00 Acute Conjunctivitis Unspecified 08/09/2011 PIERSON DO, LORENA K 372.00 Acute Conjunctivitis Unspecified 08/09/2011 RASHMI SOFTWARE QUALITY TESTER, ALAN S 372.00 Acute Conjunctivitis Unspecified 08/09/2011 RASHMI SOFTWARE QUALITY TESTER, ALAN S 372.00 Acute Conjunctivitis Unspecified 08/09/2011 NADINE GRAVES CHEN A 372.00 Acute Conjunctivitis Unspecified 08/09/2011 RASHMI SOFTWARE QUALITY TESTER, ALAN S 372.00 Acute Conjunctivitis Unspecified 08/09/2011 372.00 Acu te Conjunctivitis Unspecified 08/09/2011 RASHMI SOFTWARE QUALITY TESTER, ALAN S 372.00 Acute Conjunctivitis Unspecified 08/09/2011 RASHMI SOFTWARE QUALITY TESTER, ALAN S 372.00 Acute Conjunctivitis Unspecified 08/09/2011 RASHMI SOFTWARE QUALITY TESTER, ALAN S 372.00 Acute Conjunctivitis Unspecified 08/09/2011 RASHMI SOFTWARE QUALITY TESTER, ALAN S 372.00 Acute Conjunctivitis Unspecified 08/22/2011 RASHMI GRAVES ALAN S 272.4 HYPERLIPIDEMIA 08/22/2011 RASHMI GRAVES ALAN S V58.69 taking high-risk medication 08/22/2011 272.4 HYPE RLIPIDEMIA 08/22/2011 V58.69 cara ing high-risk medication 08/22/2011 272.4 HYPE RLIPIDEMIA 08/22/2011 V58.69 cara ing high-risk medication 08/22/2011 272.4 HYPE RLIPIDEMIA 08/22/2011 V58.69 cara ing high-risk medication 08/22/2011 272.4 HYPE RLIPIDEMIA 08/22/2011 V58.69 cara ing high-risk medication 08/22/2011 272.4 HYPE RLIPIDEMIA 08/22/2011 V58.69 cara ing high-risk medication 08/22/2011 PIERSON DO, LORENA K [...] APRNNDA S V58.69 taking high-risk medication 08/22/2011 NADINE APRN, CHEN A 27 2.4 HYPERLIPIDEMIA 08/22/2011 NADINE SOFTWARE QUALITY TESTER, CHEN A V58.69 taking high-risk medication 08/22/2011 RASHMI GRAVES ALAN S 272.4 HYPERLIPIDEMIA 08/22/2011 MARTIN CARABALLO APRNNDA S V58.69 taking high-risk medication 08/22/2011 272.4 HYPE RLIPIDEMIA 08/22/2011 V58.69 cara ing high-risk medication 08/22/2011 RASHMI GRAVES ALAN S [...] GRAVES ALAN S V58.69 taking high-risk medication 11/02/2011 RASHMI SOFTWARE QUALITY TESTER, ALAN S 250.80 Hypoglycemia (diabetic) 11/02/2011 250.80 Hyp oglycemia (diabetic) 11/02/2011 250.80 Hyp oglycemia (diabetic) 11/02/2011 250.80 Hyp oglycemia (diabetic) 11/02/2011 250.80 Hyp oglycemia (diabetic) 11/02/2011 250.80 Hyp oglycemia (diabetic) 11/02/2011 PIERSON DO, LORENA K 250.80 Hypoglycemia (diabetic) 11/02/2011 PIERSON DO, LORENA K 250.80 Hypoglycemia (diabetic) 11/02/2011 PIESRON DO, LORENA K 250.80 Hypoglycemia (diabetic) 11/02/2011 PIERSON DO, LORENA K 250.80 Hypoglycemia (diabetic) 11/02/2011 RASHMI SOFTWARE QUALITY TESTER, ALAN S 250.80 Hypoglycemia (diabetic) 11/02/2011 PIERSON DO, LORENA K 250.80 Hypoglycemia (diabetic) 11/02/2011 RASHMI HARVEYN, ALAN S 250.80 Hypoglycemia (diabetic) 11/02/2011 RASHMI SOFTWARE QUALITY TESTER, ALAN S 250.80 Hypoglycemia (diabetic) 11/02/2011 RASHMI SOFTWARE QUALITY TESTER, ALAN S 250.80 Hypoglycemia (diabetic) 11/02/2011 RASHMI SOFTWARE QUALITY TESTER, ALAN S 250.80 Hypoglycemia (diabetic) 11/02/2011 PIERSON DO, LORENA K 250.80 Hypoglycemia (diabetic) 11/02/2011 PIERSON DO, LORENA K 250.80 Hypoglycemia (diabetic) 11/02/2011 RASHMI SOFTWARE QUALITY TESTER, ALAN S 250.80 Hypoglycemia (diabetic) 11/02/2011 RASHMI SOFTWARE QUALITY TESTER, ALAN S 250.80 Hypoglycemia (diabetic) 11/02/2011 NADINE SOFTWARE QUALITY TESTER, CHEN A 250.80 Hypoglycemia (diabetic) 11/02/2011 RASHMI SOFTWARE QUALITY TESTER, ALAN S 250.80 Hypoglycemia (diabetic) 11/02/2011 250.80 Hyp oglycemia (diabetic) 11/02/2011 RASHMI SOFTWARE QUALITY TESTER, ALAN S 250.80 Hypoglycemia (diabetic) 11/02/2011 RASHMI SOFTWARE QUALITY TESTER, ALAN S 250.80 Hypoglycemia (diabetic) 11/02/2011 RASHMI SOFTWARE QUALITY TESTER, ALAN S 250.80 Hypoglycemia (diabetic) 11/02/2011 RASHMI SOFTWARE QUALITY TESTER, ALAN S 250.80 Hypoglycemia (diabetic) 11/07/2011 RASHMI SOFTWARE QUALITY TESTER, ALAN S 791.0 MICROALBUMINURIA 11/07/2011 791.0 MICR OALBUMINURIA 11/07/2011 791.0 MICR OALBUMINURIA 11/07/2011 791.0 MICR OALBUMINURIA 11/07/2011 791.0 MICR OALBUMINURIA 11/07/2011 791.0 MICR OALBUMINURIA 11/07/2011 PIERSON DO, LORENA K 791.0 MICROALBUMINURIA 11/07/2011 PIERSON DO, LORENA K 791.0 MICROALBUMINURIA 11/07/2011 PIERSON DO, LORENA K 791.0 MICROALBUMINURIA 11/07/2011 PIERSON DO, LORENA K 791.0 MICROALBUMINURIA 11/07/2011 RASHMI SOFTWARE QUALITY TESTER, ALAN S 791.0 MICROALBUMINURIA 11/07/2011 PIERSON DO, LORENA K 791.0 MICROALBUMINURIA 11/07/2011 RASHMI SOFTWARE QUALITY TESTER, ALAN S 791.0 MICROALBUMINURIA 11/07/2011 RASHMI SOFTWARE QUALITY TESTER, ALAN S 791.0 MICROALBUMINURIA 11/07/2011 RASHMI SOFTWARE QUALITY TESTER, ALAN S 791.0 MICROALBUMINURIA 11/07/2011 RASHMI SOFTWARE QUALITY TESTER, ALAN S 791.0 MICROALBUMINURIA 11/07/2011 PIERSON DO, LORENA K 791.0 MICROALBUMINURIA 11/07/2011 PIERSON DO, LORENA K 791.0 MICROALBUMINURIA 11/07/2011 RASHMI SOFTWARE QUALITY TESTER, ALAN S 791.0 MICROALBUMINURIA 11/07/2011 RASHMI SOFTWARE QUALITY TESTER, ALAN S 791.0 MICROALBUMINURIA 11/07/2011 NADINE SOFTWARE QUALITY TESTER, CHEN A 79 1.0 MICROALBUMINURIA 11/07/2011 RASHMI SOFTWARE QUALITY TESTER, ALAN S 791.0 MICROALBUMINURIA 11/07/2011 791.0 MICR OALBUMINURIA 11/07/2011 RASHMI SOFTWARE QUALITY TESTER, ALAN S 791.0 MICROALBUMINURIA 11/07/2011 RASHMI SOFTWARE QUALITY TESTER, ALAN S 791.0 MICROALBUMINURIA 11/07/2011 RASHMI SOFTWARE QUALITY TESTER, ALAN S 791.0 MICROALBUMINURIA 11/07/2011 RASHMI GRAVES ALAN S 791.0 MICROALBUMINURIA 12/24/2011 MARTIN CARABALLO APRNNDA S 564.1 IRRITABLE BOWEL SYNDROME 12/24/2011 RASHMI GRAVES ALAN S 789.00 Abdominal Pain Unspecified Site 12/24/2011 564.1 IRRI TABLE BOWEL SYNDROME 12/24/2011 789.00 Abd ominal Pain Unspecified Site 12/24/2011 564.1 IRRI TABLE BOWEL SYNDROME 12/24/2011 789.00 Abd ominal Pain Unspecified Site 12/24/2011 564.1 IRRI TABLE BOWEL SYNDROME 12/24/2011 789.00 Abd ominal Pain Unspecified Site 12/24/2011 564.1 IRRI TABLE BOWEL SYNDROME 12/24/2011 789.00 Abd ominal Pain Unspecified Site 12/24/2011 564.1 IRRI TABLE BOWEL SYNDROME 12/24/2011 789.00 Abd ominal Pain Unspecified Site 12/24/2011 PIERSON DO, LORENA [...] K 789.00 Abdominal Pain Unspecified Site 12/24/2011 MARTIN CARABALLO APRNNDA S 564.1 IRRITABLE BOWEL SYNDROME 12/24/2011 MARTIN CARABALLO APRNNDA S 789.00 Abdominal Pain Unspecified Site 12/24/2011 PIERSON DO, LORENA K 564.1 IRRITABLE BOWEL SYNDROME 12/24/2011 PIERSON DO, LORENA K 789.00 Abdominal Pain Unspecified Site 12/24/2011 RASHMI GRAVES ALAN S 564.1 IRRITABLE BOWEL SYNDROME 12/24/2011 RASHMI SOFTWARE QUALITY TESTER, ALAN S 789.00 Abdominal Pain Unspecified Site 12/24/2011 RASHMI SOFTWARE QUALITY TESTER, ALAN S 564.1 IRRITABLE BOWEL SYNDROME 12/24/2011 RASHMI SOFTWARE QUALITY TESTER, ALAN S 789.00 Abdominal Pain Unspecified Site 12/24/2011 RASHMI SOFTWARE QUALITY TESTER, ALAN S 564.1 IRRITABLE BOWEL SYNDROME 12/24/2011 RASHMI SOFTWARE QUALITY TESTER, ALAN S 789.00 Abdominal Pain Unspecified Site 12/24/2011 RASHMI SOFTWARE QUALITY TESTER, ALAN S 564.1 IRRITABLE BOWEL SYNDROME 12/24/2011 RASHMI SOFTWARE QUALITY TESTER, ALAN S 789.00 Abdominal Pain Unspecified Site 12/24/2011 PIERSON DO, LORENA K 564.1 IRRITABLE BOWEL SYNDROME 12/24/2011 PIERSON DO, LORENA K 789.00 Abdominal Pain Unspecified Site 12/24/2011 PIERSON DO, LORENA K 564.1 IRRITABLE BOWEL SYNDROME 12/24/2011 PIERSON DO, LORENA K 789.00 Abdominal Pain Unspecified Site 12/24/2011 RASHMI SOFTWARE QUALITY TESTER, ALAN S 564.1 IRRITABLE BOWEL SYNDROME 12/24/2011 RASHMI SOFTWARE QUALITY TESTER, ALAN S 789.00 Abdominal Pain Unspecified Site 12/24/2011 RASHMI SOFTWARE QUALITY TESTER, ALAN S 564.1 IRRITABLE BOWEL SYNDROME 12/24/2011 RASHMI SOFTWARE QUALITY TESTER, ALAN S 789.00 Abdominal Pain Unspecified Site 12/24/2011 NADINE SOFTWARE QUALITY TESTER, CHEN A 56 4.1 IRRITABLE BOWEL SYNDROME 12/24/2011 NADINE SOFTWARE QUALITY TESTER, CHEN A 789.00 Abdominal Pain Unspecified Site 12/24/2011 RASHMI SOFTWARE QUALITY TESTER, ALAN S 564.1 IRRITABLE BOWEL SYNDROME 12/24/2011 RASHMI SOFTWARE QUALITY TESTER, ALAN S 789.00 Abdominal Pain Unspecified Site 12/24/2011 564.1 IRRI TABLE BOWEL SYNDROME 12/24/2011 789.00 Abd ominal Pain Unspecified Site 12/24/2011 RASHMI SOFTWARE QUALITY TESTER, ALAN S 564.1 IRRITABLE BOWEL SYNDROME 12/24/2011 RASHMI SOFTWARE QUALITY TESTER, ALAN S 789.00 Abdominal Pain Unspecified Site 12/24/2011 RASHMI SOFTWARE QUALITY TESTER, ALAN S 564.1 IRRITABLE BOWEL SYNDROME 12/24/2011 RASHMI SOFTWARE QUALITY TESTER, ALAN S 789.00 Abdominal Pain Unspecified Site 12/24/2011 RASHMI SOFTWARE QUALITY TESTER, ALAN S 564.1 IRRITABLE BOWEL SYNDROME 12/24/2011 RASHMI SOFTWARE QUALITY TESTER, ALAN S 789.00 Abdominal Pain Unspecified Site 12/24/2011 RASHMI SOFTWARE QUALITY TESTER, ALAN S 564.1 IRRITABLE BOWEL SYNDROME 12/24/2011 RASHMI SOFTWARE QUALITY TESTER, ALAN S 789.00 Abdominal Pain Unspecified Site 01/28/2012 RASHMI SOFTWARE QUALITY TESTER, ALAN S 465.9 Upper Respiratory Infection 01/28/2012 465.9 Uppe r Respiratory Infection 01/28/2012 465.9 Uppe r Respiratory Infection 01/28/2012 465.9 Uppe r Respiratory Infection 01/28/2012 465.9 Uppe r Respiratory Infection 01/28/2012 465.9 Uppe r Respiratory Infection 01/28/2012 PIERSON DO, LORENA K 465.9 Upper Respiratory Infection 01/28/2012 PIERSON DO, LORENA K 465.9 Upper Respiratory Infection 01/28/2012 PIERSON DO, LORENA K 465.9 Upper Respiratory Infection 01/28/2012 PIERSON DO, LORENA K 465.9 Upper Respiratory Infection 01/28/2012 RASHMI SOFTWARE QUALITY TESTER, ALAN S 465.9 Upper Respiratory Infection 01/28/2012 PIERSON DO, LORENA K 465.9 Upper Respiratory Infection 01/28/2012 RASHMI SOFTWARE QUALITY TESTER, ALAN S 465.9 Upper Respiratory Infection 01/28/2012 RASHMI SOFTWARE QUALITY TESTER, ALAN S 465.9 Upper Respiratory Infection 01/28/2012 RASHMI SOFTWARE QUALITY TESTER, ALAN S 465.9 Upper Respiratory Infection 01/28/2012 RASHMI SOFTWARE QUALITY TESTER, ALAN S 465.9 Upper Respiratory Infection 01/28/2012 PIERSON DO, LORENA K 465.9 Upper Respiratory Infection 01/28/2012 PIERSON DO, LORENA K 465.9 Upper Respiratory Infection 01/28/2012 RASHMI SOFTWARE QUALITY TESTER, ALAN S 465.9 Upper Respiratory Infection 01/28/2012 RASHMI SOFTWARE QUALITY TESTER, ALAN S 465.9 Upper Respiratory Infection 01/28/2012 NADINE SOFTWARE QUALITY TESTER, CHEN A 46 5.9 Upper Respiratory Infection 01/28/2012 RASHMI SOFTWARE QUALITY TESTER, ALAN S 465.9 Upper Respiratory Infection 01/28/2012 465.9 Uppe r Respiratory Infection 01/28/2012 RASHMI SOFTWARE QUALITY TESTER, ALAN S 465.9 Upper Respiratory Infection 01/28/2012 RASHMI SOFTWARE QUALITY TESTER, ALAN S 465.9 Upper Respiratory Infection 01/28/2012 RASHMI SOFTWARE QUALITY TESTER, ALAN S 465.9 Upper Respiratory Infection 01/28/2012 RASHMI SOFTWARE QUALITY TESTER, ALAN S 465.9 Upper Respiratory Infection 04/02/2012 RASHMI SOFTWARE QUALITY TESTER, ALAN S 780.99 ANHEDONIA 04/02/2012 780.99 [facility] EDONIA 04/02/2012 780.99 [facility] EDONIA 04/02/2012 780.99 [facility] EDONIA 04/02/2012 780.99 [facility] EDONIA 04/02/2012 780.99 [facility] EDONIA 04/02/2012 PIERSON DO, LORENA K 780.99 ANHEDONIA 04/02/2012 PIERSON DO, LORENA K 780.99 ANHEDONIA 04/02/2012 PIERSON DO, LORENA K 780.99 ANHEDONIA 04/02/2012 PIERSON DO, LORENA K 780.99 ANHEDONIA 04/02/2012 RASHMI SOFTWARE QUALITY TESTER, ALAN S 780.99 ANHEDONIA 04/02/2012 PIERSON DO, LORENA K 780.99 ANHEDONIA 04/02/2012 RASHMI SOFTWARE QUALITY TESTER, ALAN S 780.99 ANHEDONIA 04/02/2012 RASHMI SOFTWARE QUALITY TESTER, ALAN S 780.99 ANHEDONIA 04/02/2012 RASHMI SOFTWARE QUALITY TESTER, ALAN S 780.99 ANHEDONIA 04/02/2012 RASHMI SOFTWARE QUALITY TESTER, ALAN S 780.99 ANHEDONIA 04/02/2012 PIERSON DO, LORENA K 780.99 ANHEDONIA 04/02/2012 IPERSON DO, LORENA K 780.99 ANHEDONIA 04/02/2012 RASHMI SOFTWARE QUALITY TESTER, ALAN S 780.99 ANHEDONIA 04/02/2012 RASHMI SOFTWARE QUALITY TESTER, ALAN S 780.99 ANHEDONIA 04/02/2012 NADINE SOFTWARE QUALITY TESTER, CHEN A 780.99 ANHEDONIA 04/02/2012 RASHMI SOFTWARE QUALITY TESTER, ALAN S 780.99 ANHEDONIA 04/02/2012 780.99 [facility] EDONIA 04/02/2012 RASHMI SOFTWARE QUALITY TESTER, ALAN S 780.99 ANHEDONIA 04/02/2012 RASHMI SOFTWARE QUALITY TESTER, ALAN S 780.99 ANHEDONIA 04/02/2012 RASHMI SOFTWARE QUALITY TESTER, ALAN S 780.99 ANHEDONIA 04/02/2012 RASHMI SOFTWARE QUALITY TESTER, ALAN S 780.99 ANHEDONIA 05/26/2012 RASHMI SOFTWARE QUALITY TESTER, ALAN S 458.9 HYPOTENSION 05/26/2012 458.9 HYPO TENSION 05/26/2012 458.9 HYPO TENSION 05/26/2012 458.9 HYPO TENSION 05/26/2012 458.9 HYPO TENSION 05/26/2012 458.9 HYPO TENSION 05/26/2012 PIERSON DO, LORENA K 458.9 HYPOTENSION 05/26/2012 PIERSON DO, LORENA K 458.9 HYPOTENSION 05/26/2012 PIERSON DO, LORENA K 458.9 HYPOTENSION 05/26/2012 PIERSON DO, LORENA K 458.9 HYPOTENSION 05/26/2012 RASHMI SOFTWARE QUALITY TESTER, ALAN S 458.9 HYPOTENSION 05/26/2012 PIERSON DO, LORENA K 458.9 HYPOTENSION 05/26/2012 RASHMI SOFTWARE QUALITY TESTER, ALAN S 458.9 HYPOTENSION 05/26/2012 RASHMI SOFTWARE QUALITY TESTER, ALAN S 458.9 HYPOTENSION 05/26/2012 RASHMI SOFTWARE QUALITY TESTER, ALAN S 458.9 HYPOTENSION 05/26/2012 RASHMI SOFTWARE QUALITY TESTER, ALAN S 458.9 HYPOTENSION 05/26/2012 PEIRSON DO, LORENA K 458.9 HYPOTENSION 05/26/2012 PIERSON DO, LORENA K 458.9 HYPOTENSION 05/26/2012 RASHMI SOFTWARE QUALITY TESTER, ALAN S 458.9 HYPOTENSION 05/26/2012 RASHMI SOFTWARE QUALITY TESTER, ALAN S 458.9 HYPOTENSION 05/26/2012 NADINE SOFTWARE QUALITY TESTER, CHEN A 45 8.9 HYPOTENSION 05/26/2012 RASHMI SOFTWARE QUALITY TESTER, ALAN S 458.9 HYPOTENSION 05/26/2012 458.9 HYPO TENSION 05/26/2012 RASHMI SOFTWARE QUALITY TESTER, ALAN S 458.9 HYPOTENSION 05/26/2012 RASHMI SOFTWARE QUALITY TESTER, ALAN S 458.9 HYPOTENSION 05/26/2012 RASHMI SOFTWARE QUALITY TESTER, ALAN S 458.9 HYPOTENSION 05/26/2012 ALAN CARABALLO APRN S 458.9 HYPOTENSION 05/30/2012 Ot 250.01 ROS Yaneli JIMY WO COMPL, TYPE I [JUVENILE TYP 05/30/2012 Ot 272.4 HYPE RLIPIDEMIA NEC/NOS 05/30/2012 Ot 276.51 DEH YDRATION 05/30/2012 Ot 300.00 ANX IETY STATE NOS 05/30/2012 Ot 311 DEPRES SIVE DISORDER NEC 05/30/2012 Ot 564.1 IRRI TABLE BOWEL SYNDROME 06/10/2012 ALAN CARABALLO APRN S 380.10 Infective Otitis Externa Unspecified 06/10/2012 ALAN CARABALLO APRN S 784.7 Epistaxis 06/10/2012 380.10 Inf ective Otitis Externa Unspecified 06/10/2012 784.7 Epis taxis 06/10/2012 380.10 Inf ective Otitis Externa Unspecified 06/10/2012 784.7 Epis taxis 06/10/2012 380.10 Inf ective Otitis Externa Unspecified 06/10/2012 784.7 Epis taxis 06/10/2012 380.10 Inf ective Otitis Externa Unspecified 06/10/2012 784.7 Epis taxis 06/10/2012 380.10 Inf ective Otitis Externa Unspecified 06/10/2012 784.7 Epis taxis 06/10/2012 PIERSON DO, LORENA K 380.10 Infective [...] PIERSON DO, LORENA K 784.7 Epistaxis 06/10/2012 ALAN CARABALLO APRN S 380.10 Infective Otitis Externa Unspecified 06/10/2012 ALAN CARABALLO APRN S 784.7 Epistaxis 06/10/2012 PIERSON DO, LORENA K 380.10 Infective Otitis Externa Unspecified 06/10/2012 PIERSON DO, LORENA K 784.7 Epistaxis 06/10/2012 RASHMI SOFTWARE QUALITY TESTER, ALAN S 380.10 Infective Otitis Externa Unspecified 06/10/2012 RASHMI SOFTWARE QUALITY TESTER, ALAN S 784.7 Epistaxis 06/10/2012 RASHMI SOFTWARE QUALITY TESTER, ALAN S 380.10 Infective Otitis Externa Unspecified 06/10/2012 RASHMI SOFTWARE QUALITY TESTER, ALAN S 784.7 Epistaxis 06/10/2012 RASHMI SOFTWARE QUALITY TESTER, ALAN S 380.10 Infective Otitis Externa Unspecified 06/10/2012 RASHMI SOFTWARE QUALITY TESTER, ALAN S 784.7 Epistaxis 06/10/2012 RASHMI SOFTWARE QUALITY TESTER, ALAN S 380.10 Infective Otitis Externa Unspecified 06/10/2012 RASHMI SOFTWARE QUALITY TESTER, ALAN S 784.7 Epistaxis 06/10/2012 PIERSON DO, LORENA K 380.10 Infective Otitis Externa Unspecified 06/10/2012 PIERSON DO, LORENA K 784.7 Epistaxis 06/10/2012 PIERSON DO, LORENA K 380.10 Infective Otitis Externa Unspecified 06/10/2012 PIERSON DO, LORENA K 784.7 Epistaxis 06/10/2012 RASHMI SOFTWARE QUALITY TESTER, ALAN S 380.10 Infective Otitis Externa Unspecified 06/10/2012 RASHMI SOFTWARE QUALITY TESTER, ALAN S 784.7 Epistaxis 06/10/2012 RASHMI SOFTWARE QUALITY TESTER, ALAN S 380.10 Infective Otitis Externa Unspecified 06/10/2012 RASHMI SOFTWARE QUALITY TESTER, ALAN S 784.7 Epistaxis 06/10/2012 NADINE SOFTWARE QUALITY TESTER, CHEN A 380.10 Infective Otitis Externa Unspecified 06/10/2012 NADINE SOFTWARE QUALITY TESTER, CHEN A 78 4.7 Epistaxis 06/10/2012 RASHMI SOFTWARE QUALITY TESTER, ALAN S 380.10 Infective Otitis Externa Unspecified 06/10/2012 RASHMI SOFTWARE QUALITY TESTER, ALAN S 784.7 Epistaxis 06/10/2012 380.10 Inf ective Otitis Externa Unspecified 06/10/2012 784.7 Epis taxis 06/10/2012 RASHMI SOFTWARE QUALITY TESTER, ALAN S 380.10 Infective Otitis Externa Unspecified 06/10/2012 RASHMI SOFTWARE QUALITY TESTER, ALAN S 784.7 Epistaxis 06/10/2012 RASHMI SOFTWARE QUALITY TESTER, ALAN S 380.10 Infective Otitis Externa Unspecified 06/10/2012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 ALAN S 475 PERITONSILLAR ABSCESS 02/23/2015 PATRICK CASTILLO, COREY Ot 250. 01 02/23/2015 PATRICK CASTILLO, COREY Ot 285. 9 02/23/2015 PATRICK CASTILLO, COREY Ot 564. 1 02/23/2015 PATRICK CASTILLO, COREY Ot V15. 82 02/23/2015 PATRICK CASTILLO, MANISHA-YING Ot V45. 85 02/23/2015 PATRICK CASTILLO, COREY Ot V58. 69 03/02/2015 FACUNDO CASTILLO FACC, ALI FACP CCDS Ot 780.2 03/02/2015 FACUNDO CASTILLO FACC, ALI FACP CCDS Ot 786.59 03/02/2015 FACUNDO CASTILLO FACC, ALI FACP CCDS Ot 780.2 03/02/2015 FACUNDO CASTILLO FACC, ALI FACP CCDS Ot 786.59 03/02/2015 FACUNDO CASTILLO FACC, ALI FACP CCDS Ot 729.81 03/02/2015 CHEN MCCOY SOFTWARE QUALITY TESTER Ot 611.72 03/02/2015 PATRICK CASTILLO, COREY Ot 250. 01 03/02/2015 PATRICK CASTILLO, COREY Ot 285. 9 03/02/2015 PATRICK CASTILLO, COREY Ot 564. 1 03/02/2015 PATRICK CASTILLO, COREY Ot V15. 82 03/02/2015 PATRICK CASTILLO, COREY Ot V45. 85 03/02/2015 PATRICK CASTILLO, COREY Ot V58. 69 03/02/2015 PATRICK CASTILLO, COREY Ot 250. 01 03/02/2015 PATRICK CASTILLO, COREY Ot 285. 9 03/02/2015 PATRICK CASTILLO, COREY Ot 564. 1 03/02/2015 PATRICK CASTILLO, COREY Ot V15. 82 03/02/2015 PATRICK CASTILLO, MANISHA-YING Ot V45. 85 03/02/2015 PATRICK CASTILLO, COREY Ot V58. 69 03/03/2015 PATRICK CASTILLO, COREY Ot 250. 01 03/03/2015 PATRICK CASTILLO, COREY Ot 285. 9 03/03/2015 PATRICK CASTILLO, COREY Ot 564. 1 03/03/2015 PATRICK CASTILLO, COREY Ot V15. 82 03/03/2015 PATRICK CASTILLO, MANISHA-YING Ot V45. 85 03/03/2015 PATRICK CASTILLO, MANISHA-YING Ot V58. 69 03/09/2015 PATRICK CASTILLO, COREY Ot 250. 01 03/09/2015 PATRICK CASTILLO, COREY Ot 285. 9 03/09/2015 PATRICK CASTILLO, COREY Ot 564. 1 03/09/2015 PATRICK CASTILLO, COREY Ot V15. 82 03/09/2015 PATRICK CASTILLO, COREY Ot V45. 85 03/09/2015 PATRICK CASTILLO, COREY Ot V58. 69 03/10/2015 PATRICK CASTILLO, COREY Ot 250. 01 03/10/2015 PATRICK CASTILLO, COREY Ot 285. 9 03/10/2015 PATRICK CASTILLO, COREY Ot 564. 1 03/10/2015 PATRICK CASTILLO, COREY Ot V15. 82 03/10/2015 PATRICK CASTILLO, MANISHA-YING Ot V45. 85 03/10/2015 PATRICK CASTILLO, COREY Ot V58. 69 05/31/2015 PATRICK CASTILLO, COREY Ot 250. 01 DIAB JIMY WO COMPL, TYPE I [JUVENILE TYP 05/31/2015 PATRICK CASTILLO, COREY Ot 285. 9 ANEMIA NOS 05/31/2015 PATRICK CASTILLO, COREY Ot 564. 1 IRRITABLE BOWEL SYNDROME 05/31/2015 PATRICK CASTILLO, COREY Ot V15. 82 HISTORY OF TOBACCO USE 05/31/2015 PATRICK CASTILLO, COREY Ot V45. 85 INSULIN PUMP STATUS 05/31/2015 PATRICK CASTILLO, COREY Ot V58. 69 OT MED,LT,CURRENT USE 06/03/2015 PATRICK CASTILLO, COREY Ot 250. 01 06/03/2015 PATRICK CASTILLO, COREY Ot 285. 9 06/03/2015 PATRICK CASTILLO, COREY Ot 564. 1 06/03/2015 PATRICK CASTILLO, COREY Ot V15. 82 06/03/2015 PATRICK CASTILLO, COREY Ot V45. 85 06/03/2015 PATRICK CASTILLO, COREY Ot V58. 69 06/03/2015 PATRICK CASTILLO, MANISHA-YING Ot 250. 01 06/03/2015 PATRICK CASTILLO, MANISHA-YING Ot 285. 9 06/03/2015 PATRICK CASTILLO, COREY Ot 564. 1 06/03/2015 PATRICK CASTILLO, COREY Ot V15. 82 06/03/2015 PATRICK CASTILLO, COREY Ot V45. 85 06/03/2015 PATRICK CASTILLO, COREY Ot V58. 69 06/06/2015 PATRICK CASTILLO, COREY Ot 250. 01 06/06/2015 PATRICK CASTILLO, COREY Ot 285. 9 06/06/2015 PATRICK CASTILLO, COREY Ot 564. 1 06/06/2015 PATRICK CASTILLO, COREY Ot V15. 82 06/06/2015 PATRICK CASTILLO, COREY Ot V45. 85 06/06/2015 PATRICK CASTILLO, COREY Ot V58. 69 06/07/2015 PATRICK CASTILLO, COREY Ot 250. 01 06/07/2015 PATRICK CASTILLO, COREY Ot 285. 9 06/07/2015 PATRICK CASTILLO, COREY Ot 564. 1 06/07/2015 PATRICK CASTILLO, COREY Ot V15. 82 06/07/2015 PATRICK CASTILLO, COREY Ot V45. 85 06/07/2015 PATRICK CASTILLO, COREY Ot V58. 69 08/24/2015 PATRICK CASTILLO, COREY Ot 250. 01 DIAB JIMY WO COMPL, TYPE I [JUVENILE TYP 08/24/2015 PATRICK CASTILLO, COREY Ot 285. 9 ANEMIA NOS 08/24/2015 PATRICK CASTILLO, COREY Ot 564. 1 IRRITABLE BOWEL SYNDROME 08/24/2015 PATRICK CASTILLO, COREY Ot V15. 82 HISTORY OF TOBACCO USE 08/24/2015 PATRCIK CASTILLO, COREY Ot V45. 85 INSULIN PUMP STATUS 08/24/2015 PATRICK CASTILLO, COREY Ot V58. 69 OT MED,LT,CURRENT USE 08/29/2015 PATRICK CASTILLO, COREY Ot 250. 01 08/29/2015 PATRICK CASTILLO, COREY Ot 285. 9 08/29/2015 PATRICK CASTILLO, COREY Ot 564. 1 08/29/2015 PATRICK CASTILLO, COREY Ot V15. 82 08/29/2015 PATRICK CASTILLO, DYER-YING Ot V45. 85 08/29/2015 PATRICK CASTILLO, DYER-YING Ot V58. 69 10/25/2015 PATRICK CASTILLO, DYER-YING Ot 250. 01 10/25/2015 PATRICK CASTILLO, DYER-YING Ot 285. 9 10/25/2015 PATRICK CASTILLO, DYER-YING Ot 564. 1 10/25/2015 PATRICK CASTILLO, DYER-YING Ot V15. 82 10/25/2015 PATRICK CASTILLO, DYER-YING Ot V45. 85 10/25/2015 PATRICK CASTILLO, DYER-YING Ot V58. 69 11/16/2015 PATRICK CASTILLO, MNAISHA-YING Ot D64. 9 11/16/2015 PATRICK CASTILLO, MANISHA-YING Ot E11. 9 11/16/2015 PATRICK CASTILLO, COREY Ot K58. 9 11/16/2015 PATRICK CASTILLO, COREY Ot Z79.899 11/16/2015 PATRICK CASTILLO, COREY Ot Z87.891 11/22/2015 PATRICK CASTILLO, MANISHA-YING Ot D64. 9 11/22/2015 PATRICK CASTILLO, MANISHA-YING Ot E11. 9 11/22/2015 PATRICK CASTILLO, COREY Ot K58. 9 11/22/2015 PATRICK CASTILLO, COREY Ot Z79.899 11/22/2015 PATRICK CASTILLO, COREY Ot Z87.891 11/28/2015 PATRICK CASTILLO, COREY Ot D63. 1 ANEMIA IN CHRONIC KIDNEY DISEASE 11/28/2015 PATRICK CASTILLO, COREY Ot D64. 9 11/28/2015 PATRICK CASTILLO, COREY Ot E10. 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 9 11/28/2015 PATRICK CASTILLO, COREY Ot K58. 9 IRRITABLE BOWEL SYNDROME WITHOUT DIARRHE 11/28/2015 PATRICK CASTILLO, COREY Ot N18. 9 CHRONIC KIDNEY DISEASE, UNSPECIFIED 11/28/2015 PATRICK CASTILLO, COREY Ot Z79.899 OTHER SPARE HAND (CURRENT) DRUG THERAPY 11/28/2015 PATRICK CASTILLO, COREY Ot Z87.891 PERSONAL HISTORY OF NICOTINE DEPENDENCE 12/02/2015 PATRICK CASTILLO, COREY Ot D64. 9 12/02/2015 PATRICK CASTILLO, MANISHA-YING Ot E11. 9 12/02/2015 PATRICK CASTILLO, MANISHA-YING Ot K58. 9 12/02/2015 PATRICK CASTILLO, MANISHA-YING Ot Z79.899 12/02/2015 PATRICK CASTILLO, MANISHA-YING Ot Z87.891 12/08/2015 PATRICK CASTILLO, MANISHA-YING Ot D64. 9 12/08/2015 PATRICK CASTILLO, DYER-YING Ot E11. 9 12/08/2015 PATRICK CASTILLO, MANISHA-YING Ot K58. 9 12/08/2015 PATRICK CASTILLO, MANISHA-YING Ot Z79.899 12/08/2015 PATRICK CASTILLO, MANISHA-YING Ot Z87.891 12/27/2015 SAMANTHA DEE FINISHING LAB TECHNICIAN Ot M70. 61 01/11/2016 PATRICK CASTILLO, MANISHA-YING Ot D63. 1 01/11/2016 PATRICK CASTILLO, MANISHA-YING Ot E10. 21 01/11/2016 PATRICK CASTILLO, COREY Ot K58. 9 01/11/2016 PATRICK CASTILLO, MANISHA-YING Ot N18. 9 01/11/2016 PATRICK CASTILLO, MANISHA-YING Ot Z79. 4 01/11/2016 PATRICK CASTILLO, MANISHA-YING Ot Z79.899 01/11/2016 PATRICK CASTILLO, MANISHA-YING Ot Z87.891 01/19/2016 SAMANTHA DEE FINISHING LAB TECHNICIAN Ot M70. 61 01/19/2016 SAMANTHA DEE FINISHING LAB TECHNICIAN Ot M70. 61 TROCHANTERIC BURSITIS, RIGHT HIP 01/30/2016 FACUNDO CASTILLO FACC, ALI FACP CCDS Ot 780.2 01/30/2016 FACUNDO CASTILLO FACC, ALI FACP CCDS Ot 786.59 01/30/2016 FACUNDO CASTILLO FACC, ALI FACP CCDS Ot 780.2 01/30/2016 FACUNDO CASTILLO FACC, ALI FACP CCDS Ot 786.59 01/30/2016 FACUNDO CASTILLO FACC, ALI FACP CCDS Ot 729.81 01/30/2016 CHEN MCCOY APRN Ot 611.72 01/30/2016 PATRICK CASTILLO, DYER-YING Ot D63. 1 01/30/2016 PATRICK CASTILLO, DYER-YING Ot E10. 21 01/30/2016 PATRICK CASTILLO, MANISHA-YING Ot K58. 9 01/30/2016 PATRICK CASTILLO, MANISHA-YING Ot N18. 9 01/30/2016 PATRICK CASTILLO, MANISHA-YING Ot Z79. 4 01/30/2016 PATRICK CASTILLO, MANISHA-YING Ot Z79.899 01/30/2016 PATRICK CASTILLO, MANISHA-YING Ot Z87.891 02/21/2016 HANNAH CASTILLO, LOR Ot D64.9 02/21/2016 HANNAH CASTILLO, LOR Ot E10.22 02/21/2016 HANNAH CASTILLO, LOR Ot I12.9 02/21/2016 HANNAH CASTILLO, LOR Ot N18.3 02/21/2016 HANNAH CASTILLO, LOR Ot R80.9 02/29/2016 PATRICK CASTILLO, COREY Ot D63. 1 02/29/2016 PATRICK CASTILLO, COREY Ot E10. 21 02/29/2016 PATRICK CASTILLO, MANISHA-YING Ot K58. 9 02/29/2016 PATRICK CASTILLO, MANISHA-YING Ot N18. 9 02/29/2016 PATRICK CASTILLO, COREY Ot Z79. 4 02/29/2016 PATRICK CASTILLO, COREY Ot Z79.899 02/29/2016 [...] Ot R80.9 03/06/2016 PATRICK CASTILLO, COREY Ot D63. 1 ANEMIA IN CHRONIC KIDNEY DISEASE 03/06/2016 COREY NGUYEN MD Ot E10. 21 TYPE 1 DIABETES MELLITUS WITH DIABETIC N 03/06/2016 COREY NGUYEN MD Ot K58. 9 IRRITABLE BOWEL SYNDROME WITHOUT DIARRHE 03/06/2016 COREY NGUYEN MD Ot N18. 9 CHRONIC KIDNEY DISEASE, UNSPECIFIED 03/06/2016 COREY NGUYEN MD Ot Z79. 4 SPARE HAND (CURRENT) USE OF INSULIN 03/06/2016 COREY NGUYEN MD Ot Z79.899 OTHER LONGTERM (CURRENT) DRUG THERAPY 03/06/2016 COREY NGUYEN MD Ot Z87.891 PERSONAL HISTORY OF NICOTINE DEPENDENCE 03/22/2016 COREY NGUYEN MD, Ot D63. 1 ANEMIA IN CHRONIC KIDNEY DISEASE 03/22/2016 COREY NGUYEN MD Ot E10. 21 TYPE 1 DIABETES MELLITUS WITH DIABETIC N 03/22/2016 COREY NGUYEN MD, Ot K58. 9 IRRITABLE BOWEL SYNDROME WITHOUT DIARRHE 03/22/2016 COREY NGUYEN MD, Ot N18. 9 CHRONIC KIDNEY DISEASE, UNSPECIFIED 03/22/2016 COREY NGUYEN MD Ot Z79. 4 SPARE HAND (CURRENT) USE OF INSULIN 03/22/2016 COREY NGUYEN MD Ot Z79.899 OTHER LONGTERM (CURRENT) DRUG THERAPY 03/22/2016 COREY NGUYEN MD, Ot Z87.891 PERSONAL HISTORY OF NICOTINE DEPENDENCE 04/16/2016 COREY NGUYEN MD Ot D63. 1 ANEMIA IN CHRONIC KIDNEY DISEASE 04/16/2016 COREY NGUYEN MD Ot E10. 21 TYPE 1 DIABETES MELLITUS WITH DIABETIC N 04/16/2016 COREY NGUYEN MD Ot K58. 9 IRRITABLE BOWEL SYNDROME WITHOUT DIARRHE 04/16/2016 COREY NGUYEN MD Ot N18. 9 CHRONIC KIDNEY DISEASE, UNSPECIFIED 04/16/2016 COREY NGUYEN MD Ot Z79. 4 SPARE HAND (CURRENT) USE OF INSULIN 04/16/2016 COREY NGUYEN MD Ot Z79.899 OTHER LONGTERM (CURRENT) DRUG THERAPY 04/16/2016 COREY NGUYEN MD Ot Z87.891 PERSONAL HISTORY OF NICOTINE DEPENDENCE 04/24/2016 COREY NGUYEN MD Ot D63. 1 ANEMIA IN CHRONIC KIDNEY DISEASE 04/24/2016 COREY NGUYEN MD Ot E10. 21 TYPE 1 DIABETES MELLITUS WITH DIABETIC N 04/24/2016 COREY NGUYEN MD Ot K58. 9 IRRITABLE BOWEL SYNDROME WITHOUT DIARRHE 04/24/2016 COREY NGUYEN MD Ot N18. 9 CHRONIC KIDNEY DISEASE, UNSPECIFIED 04/24/2016 COREY NGUYEN MD Ot Z79. 4 SPARE HAND (CURRENT) USE OF INSULIN 04/24/2016 COREY NGUYEN MD Ot Z79.899 OTHER LONGTERM (CURRENT) DRUG THERAPY 04/24/2016 COREY NGUYEN MD Ot Z87.891 PERSONAL HISTORY OF NICOTINE DEPENDENCE 04/24/2016 COREY NGUYEN MD Ot D63. 1 ANEMIA IN CHRONIC KIDNEY DISEASE 04/24/2016 COREY NGUYEN MD Ot E10. 21 TYPE 1 DIABETES MELLITUS WITH DIABETIC N 04/24/2016 COREY NGUYEN MD Ot K58. 9 IRRITABLE BOWEL SYNDROME WITHOUT DIARRHE 04/24/2016 COREY NGUYEN MD, Ot N18. 9 CHRONIC KIDNEY DISEASE, UNSPECIFIED 04/24/2016 COREY NGUYEN MD Ot Z79. 4 SPARE HAND (CURRENT) USE OF INSULIN 04/24/2016 COREY NGUYEN MD Ot Z79.899 OTHER LONGTERM (CURRENT) DRUG THERAPY 04/24/2016 COREY NGUYEN MD Ot Z87.891 PERSONAL HISTORY OF NICOTINE DEPENDENCE 04/30/2016 LOR YOUNG MD Ot D64.9 ANEMIA, UNSPECIFIED 04/30/2016 LOR YOUNG MD Ot 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 MICA MINER 04/30/2016 LOR YOUNG MD Ot I12.9 HYPERTENSIVE CHRONIC KIDNEY DISEASE W ST 04/30/2016 LOR YOUNG MD Ot N18.3 CHRONIC KIDNEY DISEASE, STAGE 3 (MODERAT 04/30/2016 KEVIN YOUNG MDINE Ot R80.9 PROTEINURIA, UNSPECIFIED 05/01/2016 KEVIN YOUNG MDINE Ot D64.9 ANEMIA, UNSPECIFIED 05/01/2016 KEVIN YOUNG MDINE Ot 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 MICA MINER 05/01/2016 KEVIN YOUNG MDINE Ot I12.9 HYPERTENSIVE CHRONIC KIDNEY DISEASE W ST 05/01/2016 LOR YOUNG MD Ot N18.3 CHRONIC KIDNEY DISEASE, STAGE 3 (MODERAT 05/01/2016 HANNAH CASTILLO, LOR Ot R80.9 PROTEINURIA, UNSPECIFIED 05/04/2016 COREY NGUYEN MD Ot D63. 1 ANEMIA IN CHRONIC KIDNEY DISEASE 05/04/2016 COREY NGUYEN MD Ot E10. 21 TYPE 1 DIABETES MELLITUS WITH DIABETIC N 05/04/2016 COREY NGUYEN MD, Ot K58. 9 IRRITABLE BOWEL SYNDROME WITHOUT DIARRHE 05/04/2016 COREY NGUYEN MD, Ot N18. 9 CHRONIC KIDNEY DISEASE, UNSPECIFIED 05/04/2016 COREY NGUYEN MD, Ot Z79. 4 LONGTERM (CURRENT) USE OF INSULIN 05/04/2016 COREY NGUYEN MD, Ot Z79.899 OTHER SPARE HAND (CURRENT) DRUG THERAPY 05/04/2016 COREY NGUYEN MD, Ot Z87.891 PERSONAL HISTORY OF NICOTINE DEPENDENCE 05/17/2016 LOR YOUNG MD Ot D64.9 ANEMIA, UNSPECIFIED 05/17/2016 LOR YOUNG MD Ot 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 MICA MINER 05/17/2016 LOR YOUNG MD Ot I12.9 HYPERTENSIVE CHRONIC KIDNEY DISEASE W ST 05/17/2016 LOR YOUNG MD Ot N18.3 CHRONIC KIDNEY DISEASE, STAGE 3 (MODERAT 05/17/2016 LOR YOUNG MD Ot R80.9 PROTEINURIA, UNSPECIFIED 05/22/2016 HANNAH CASTILLO, LOR Ot D64.9 ANEMIA, UNSPECIFIED 05/22/2016 LOR YOUNG MD Ot 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 MICA MINER 05/22/2016 LOR YOUNG MD Ot I12.9 HYPERTENSIVE CHRONIC KIDNEY DISEASE W ST 05/22/2016 LOR YOUNG MD Ot N18.3 CHRONIC KIDNEY DISEASE, STAGE 3 (MODERAT 05/22/2016 HANNAH CASTILLO, LOR Ot R80.9 PROTEINURIA, UNSPECIFIED 06/19/2016 COREY NGUYEN MD Ot D63. 1 ANEMIA IN CHRONIC KIDNEY DISEASE 06/19/2016 COREY NGUYEN MD Ot E10. 21 TYPE 1 DIABETES MELLITUS WITH DIABETIC N 06/19/2016 COREY NGUYEN MD Ot K58. 9 IRRITABLE BOWEL SYNDROME WITHOUT DIARRHE 06/19/2016 COREY NGUYEN MD Ot N18. 9 CHRONIC KIDNEY DISEASE, UNSPECIFIED 06/19/2016 COREY NGUYEN MD Ot Z79. 4 LONGTERM (CURRENT) USE OF INSULIN 06/19/2016 COREY NGUYEN MD Ot Z79.899 OTHER LONGTERM (CURRENT) DRUG THERAPY 06/19/2016 COREY NGUYEN MD Ot Z87.891 PERSONAL HISTORY OF NICOTINE DEPENDENCE 07/05/2016 COREY NGUYEN MD Ot D63. 1 ANEMIA IN CHRONIC KIDNEY DISEASE 07/05/2016 COREY NGUYEN MD Ot E10. 21 TYPE 1 DIABETES MELLITUS WITH DIABETIC N 07/05/2016 COREY NGUYEN MD Ot K58. 9 IRRITABLE BOWEL SYNDROME WITHOUT DIARRHE 07/05/2016 COREY NGUYEN MD, Ot N18. 9 CHRONIC KIDNEY DISEASE, UNSPECIFIED 07/05/2016 COREY NGUYEN MD Ot Z79. 4 SPARE HAND (CURRENT) USE OF INSULIN 07/05/2016 COREY NGUYEN MD Ot Z79.899 OTHER SPARE HAND (CURRENT) DRUG THERAPY 07/05/2016 COREY NGUYEN MD, Ot Z87.891 PERSONAL HISTORY OF NICOTINE DEPENDENCE 08/06/2016 FADI YOUNG MD S Ot D64.9 ANEMIA, UNSPECIFIED 08/06/2016 HANNAH CASTILLO, FADI S Ot 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 MICA MINER 08/06/2016 HANNAH CASTILLO, FADI S Ot I95.89 OTHER HYPOTENSION 08/06/2016 HANNAH CASTILLO, FADI S Ot N18.3 CHRONIC KIDNEY DISEASE, STAGE 3 (MODERAT 08/06/2016 HANNAH CASTILLO, FADI S Ot R80.9 PROTEINURIA, UNSPECIFIED 08/06/2016 HANNAH CASTILLO, FADI S Ot D64.9 ANEMIA, UNSPECIFIED 08/06/2016 HANNAH CASTILLO, FADI S Ot 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 MICA MINER 08/06/2016 FADI YOUNG MD S Ot I95.89 OTHER HYPOTENSION 08/06/2016 HANNAH CASTILLO, FADI S Ot N18.3 CHRONIC KIDNEY DISEASE, STAGE 3 (MODERAT 08/06/2016 HANNAH CASTILLO, AHMED S Ot R80.9 PROTEINURIA, UNSPECIFIED 08/16/2016 HANNAH CASTILLO, LOR Ot D64.9 ANEMIA, UNSPECIFIED 08/16/2016 HANNAH CASTILLO, LOR Ot E10.9 TYPE 1 DIABETES MELLITUS WITHOUT COMPLIC 08/16/2016 HANNAH CASTILLO, LOR Ot I95.89 OTHER HYPOTENSION 08/16/2016 HANNAH CASTILLO, LOR Ot N18.3 CHRONIC KIDNEY DISEASE, STAGE 3 (MODERAT 08/16/2016 HANNAH CASTILLO, LOR Ot R80.9 PROTEINURIA, UNSPECIFIED 08/16/2016 COREY NGUYEN MD, Ot D63. 1 ANEMIA IN CHRONIC KIDNEY DISEASE 08/16/2016 COREY NGUYEN MD Ot E10. 21 TYPE 1 DIABETES MELLITUS WITH DIABETIC N 08/16/2016 COREY NGUYEN MD Ot K58. 9 IRRITABLE BOWEL SYNDROME WITHOUT DIARRHE 08/16/2016 COREY NGUYEN MD, Ot N18. 9 CHRONIC KIDNEY DISEASE, UNSPECIFIED 08/16/2016 COREY NGUYEN MD, Ot Z79. 4 SPARE HAND (CURRENT) USE OF INSULIN 08/16/2016 COREY NGUYEN MD Ot Z79.899 OTHER LONGTERM (CURRENT) DRUG THERAPY 08/16/2016 COREY NGUYEN MD, Ot Z87.891 PERSONAL HISTORY OF NICOTINE DEPENDENCE 08/22/2016 COREY NGUYEN MD, Ot D63. 1 ANEMIA IN CHRONIC KIDNEY DISEASE 08/22/2016 COREY NGUYEN MD Ot E10. 21 TYPE 1 DIABETES MELLITUS WITH DIABETIC N 08/22/2016 COREY NGUYEN MD, Ot K58. 9 IRRITABLE BOWEL SYNDROME WITHOUT DIARRHE 08/22/2016 COREY NGUYEN MD, Ot N18. 9 CHRONIC KIDNEY DISEASE, UNSPECIFIED 08/22/2016 COREY NGUYEN MD Ot Z79. 4 SPARE HAND (CURRENT) USE OF INSULIN 08/22/2016 COREY NGUYEN MD Ot Z79.899 OTHER SPARE HAND (CURRENT) DRUG THERAPY 08/22/2016 COREY NGUYEN MD, Ot Z87.891 PERSONAL HISTORY OF NICOTINE DEPENDENCE 08/22/2016 KEVIN YOUNG MDINE Ot D64.9 ANEMIA, UNSPECIFIED 08/22/2016 HANNAH CASTILLO, LOR Ot E10.9 TYPE 1 DIABETES MELLITUS WITHOUT COMPLIC 08/22/2016 HANNAH CASTILLO, LOR Ot I95.89 OTHER HYPOTENSION 08/22/2016 LOR YOUNG MD Ot N18.3 CHRONIC KIDNEY DISEASE, STAGE 3 (MODERAT 08/22/2016 LOR YOUNG MD Ot R80.9 PROTEINURIA, UNSPECIFIED 08/22/2016 KEVIN YOUNG MDINE Ot D64.9 ANEMIA, UNSPECIFIED 08/22/2016 HANNAH CASTILLO, LOR Ot E10.9 TYPE 1 DIABETES MELLITUS WITHOUT COMPLIC 08/22/2016 HANNAH CASTILLO, LOR Ot I95.89 OTHER HYPOTENSION 08/22/2016 KEVIN YOUNG MDINE Ot N18.3 CHRONIC KIDNEY DISEASE, STAGE 3 (MODERAT 08/22/2016 LOR YOUNG MD Ot R80.9 PROTEINURIA, UNSPECIFIED 08/22/2016 HANNAH CASTILLO LOR Ot D64.9 ANEMIA, UNSPECIFIED 08/22/2016 KEVIN YOUNG MDINE Ot E10.9 TYPE 1 DIABETES MELLITUS WITHOUT COMPLIC 08/22/2016 HANNAH CASTILLO, LOR Ot I95.89 OTHER HYPOTENSION 08/22/2016 KEVIN YOUNG MDINE Ot N18.3 CHRONIC KIDNEY DISEASE, STAGE 3 (MODERAT 08/22/2016 LOR YOUNG MD Ot R80.9 PROTEINURIA, UNSPECIFIED 08/22/2016 HANNAH CASTILLO LOR Ot D64.9 ANEMIA, UNSPECIFIED 08/22/2016 HANNAH CASTILLO, LOR Ot E10.9 TYPE 1 DIABETES MELLITUS WITHOUT COMPLIC 08/22/2016 HANNAH CASTILLO LOR Ot I95.89 OTHER HYPOTENSION 08/22/2016 HANNAH CASTILLO, LOR Ot N18.3 CHRONIC KIDNEY DISEASE, STAGE 3 (MODERAT 08/22/2016 LOR YOUNG MD Ot R80.9 PROTEINURIA, UNSPECIFIED 08/22/2016 HANNAH CASTILLO LOR Ot D64.9 ANEMIA, UNSPECIFIED 08/22/2016 HANNAH CASTILLO, LOR Ot E10.9 TYPE 1 DIABETES MELLITUS WITHOUT COMPLIC 08/22/2016 LOR YOUNG MD Ot I95.89 OTHER HYPOTENSION 08/22/2016 HANNAH CASTILLO, LOR Ot N18.3 CHRONIC KIDNEY DISEASE, STAGE 3 (MODERAT 08/22/2016 LOR YOUNG MD Ot R80.9 PROTEINURIA, UNSPECIFIED 08/22/2016 HANNAH CASTILLO, LOR Ot D64.9 ANEMIA, UNSPECIFIED 08/22/2016 HANNAH CASTILLO, LOR Ot E10.9 TYPE 1 DIABETES MELLITUS WITHOUT COMPLIC 08/22/2016 LOR YOUNG MD Ot I95.89 OTHER HYPOTENSION 08/22/2016 LOR YOUNG MD Ot N18.3 CHRONIC KIDNEY DISEASE, STAGE 3 (MODERAT 08/22/2016 LOR YOUNG MD Ot R80.9 PROTEINURIA, UNSPECIFIED 08/27/2016 COREY NGUYEN MD Ot D63. 1 ANEMIA IN CHRONIC KIDNEY DISEASE 08/27/2016 COREY NGUYEN MD Ot E10. 21 TYPE 1 DIABETES MELLITUS WITH DIABETIC N 08/27/2016 COREY NGUYEN MD Ot K58. 9 IRRITABLE BOWEL SYNDROME WITHOUT DIARRHE 08/27/2016 COREY NGUYEN MD Ot N18. 9 CHRONIC KIDNEY DISEASE, UNSPECIFIED 08/27/2016 COREY NGUYEN MD Ot Z79. 4 LONGTERM (CURRENT) USE OF INSULIN 08/27/2016 COREY NGUYEN MD Ot Z79.899 OTHER LONGTERM (CURRENT) DRUG THERAPY 08/27/2016 COREY NGUYEN MD, Ot Z87.891 PERSONAL HISTORY OF NICOTINE DEPENDENCE 08/27/2016 FADI YOUNG MD S Ot D64.9 ANEMIA, UNSPECIFIED 08/27/2016 FADI YOUNG MD S Ot 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 MICA MINER 08/27/2016 FADI YOUNG MD S Ot I95.89 OTHER HYPOTENSION 08/27/2016 FADI YOUNG MD S Ot N18.3 CHRONIC KIDNEY DISEASE, STAGE 3 (MODERAT 08/27/2016 HANNAH CASTILLO, FADI S Ot R80.9 PROTEINURIA, UNSPECIFIED 08/30/2016 HANNAH CASTILLO, FADI S Ot D64.9 ANEMIA, UNSPECIFIED 08/30/2016 HANNAH CASTILLO, GONZALOMED S Ot 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 MICA MINER 08/30/2016 HANNAH CASTILLO, AHMED S Ot I95.89 OTHER HYPOTENSION 08/30/2016 HANNAH CASTILLO, GONZALOMED S Ot N18.3 CHRONIC KIDNEY DISEASE, STAGE 3 (MODERAT 08/30/2016 HANNAH CASTILLO, FADI S Ot R80.9 PROTEINURIA, UNSPECIFIED 09/04/2016 COREY NGUYEN MD Ot D63. 1 ANEMIA IN CHRONIC KIDNEY DISEASE 09/04/2016 COREY NGUYEN MD Ot E10. 21 TYPE 1 DIABETES MELLITUS WITH DIABETIC N 09/04/2016 COREY NGUYEN MD Ot K58. 9 IRRITABLE BOWEL SYNDROME WITHOUT DIARRHE 09/04/2016 COREY NGUYEN MD, Ot N18. 9 CHRONIC KIDNEY DISEASE, UNSPECIFIED 09/04/2016 COREY NGUYEN MD Ot Z79. 4 LONGTERM (CURRENT) USE OF INSULIN 09/04/2016 COREY NGUYEN MD Ot Z79.899 OTHER LONGTERM (CURRENT) DRUG THERAPY 09/04/2016 COREY NGUYEN MD Ot Z87.891 PERSONAL HISTORY OF NICOTINE DEPENDENCE 09/05/2016 LOR YOUNG MD Ot D64.9 ANEMIA, UNSPECIFIED 09/05/2016 LOR YOUNG MD Ot E10.9 TYPE 1 DIABETES MELLITUS WITHOUT COMPLIC 09/05/2016 HANANH CASTILLO LOR Ot I95.89 OTHER HYPOTENSION 09/05/2016 HANNAH CASTILLO, LOR Ot N18.3 CHRONIC KIDNEY DISEASE, STAGE 3 (MODERAT 09/05/2016 LOR YOUNG MD Ot R80.9 PROTEINURIA, UNSPECIFIED 09/07/2016 KEVIN YOUNG MDINE Ot D64.9 ANEMIA, UNSPECIFIED 09/07/2016 HANNAH CASTILLO, LOR Ot E10.9 TYPE 1 DIABETES MELLITUS WITHOUT COMPLIC 09/07/2016 HANNAH CASTILLO LOR Ot I95.89 OTHER HYPOTENSION 09/07/2016 LOR YOUNG MD Ot N18.3 CHRONIC KIDNEY DISEASE, STAGE 3 (MODERAT 09/07/2016 LOR YOUNG MD Ot R80.9 PROTEINURIA, UNSPECIFIED 10/09/2016 COREY NGUYEN MD Ot D63. 1 ANEMIA IN CHRONIC KIDNEY DISEASE 10/09/2016 COREY NGUYEN MD Ot E10. 21 TYPE 1 DIABETES MELLITUS WITH DIABETIC N 10/09/2016 COREY NGUYEN MD Ot K58. 9 IRRITABLE BOWEL SYNDROME WITHOUT DIARRHE 10/09/2016 COREY NGUYEN MD, Ot N18. 9 CHRONIC KIDNEY DISEASE, UNSPECIFIED 10/09/2016 COREY NGUYEN MD, Ot Z79. 4 LONGTERM (CURRENT) USE OF INSULIN 10/09/2016 COREY NGUYEN MD, Ot Z79.899 OTHER LONGTERM (CURRENT) DRUG THERAPY 10/09/2016 COREY NGUYEN MD, [...] 729.81 SWELLING OF LIMB 10/09/2016 CHEN MCCOY SOFTWARE QUALITY TESTER Ot 611.72 LUMP OR MASS IN BREAST 10/09/2016 LOR YOUNG MD Ot D64.9 ANEMIA, UNSPECIFIED 10/09/2016 LOR YOUNG MD Ot 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 MICA MINER 10/09/2016 LOR YOUNG MD Ot I12.9 HYPERTENSIVE CHRONIC KIDNEY DISEASE W ST 10/09/2016 LOR YOUNG MD Ot N18.3 CHRONIC KIDNEY DISEASE, STAGE 3 (MODERAT 10/09/2016 LOR YOUNG MD Ot R80.9 PROTEINURIA, UNSPECIFIED 10/09/2016 ABOUL-MAGD MD, LOR Ot D64.9 ANEMIA, UNSPECIFIED 10/09/2016 HANNAH CASTILLO, LOR Ot 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 MICA MINER 10/09/2016 HANNAH CASTILLO, LOR Ot I12.9 HYPERTENSIVE CHRONIC KIDNEY DISEASE W ST 10/09/2016 LOR YOUNG MD Ot N18.3 CHRONIC KIDNEY DISEASE, STAGE 3 (MODERAT 10/09/2016 LOR YOUNG MD Ot R80.9 PROTEINURIA, UNSPECIFIED 10/09/2016 HANNAH CASTILLO, GONZALOMED S Ot D64.9 ANEMIA, UNSPECIFIED 10/09/2016 HANNAH CASTILLO, GONZALOMED S Ot 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 MICA MINER 10/09/2016 GONZALO YOUNG MDMED S Ot I95.89 OTHER HYPOTENSION 10/09/2016 HANNAH CASTILLO, FADI S Ot N18.3 CHRONIC KIDNEY DISEASE, STAGE 3 (MODERAT 10/09/2016 FADI YOUNG MD S Ot R80.9 PROTEINURIA, UNSPECIFIED 10/09/2016 LOR YOUNG MD Ot D64.9 ANEMIA, UNSPECIFIED 10/09/2016 HANNAH CASTILLO, LOR Ot E10.9 TYPE 1 DIABETES MELLITUS WITHOUT COMPLIC 10/09/2016 LOR YOUNG MD Ot I95.89 OTHER HYPOTENSION 10/09/2016 LOR YOUNG MD Ot N18.3 CHRONIC KIDNEY DISEASE, STAGE 3 (MODERAT 10/09/2016 LOR YOUNG MD Ot R80.9 PROTEINURIA, UNSPECIFIED 10/09/2016 COREY NGUYEN MD Ot D63. 1 ANEMIA IN CHRONIC KIDNEY DISEASE 10/09/2016 COREY NGUYEN MD Ot E10. 21 TYPE 1 DIABETES MELLITUS WITH DIABETIC N 10/09/2016 COREY NGUYEN MD Ot K58. 9 IRRITABLE BOWEL SYNDROME WITHOUT DIARRHE 10/09/2016 COREY NGUYEN MD, Ot N18. 9 CHRONIC KIDNEY DISEASE, UNSPECIFIED 10/09/2016 COREY NGUYEN MD Ot Z79. 4 SPARE HAND (CURRENT) USE OF INSULIN 10/09/2016 COREY NGUYEN MD, Ot Z79.899 OTHER SPARE HAND (CURRENT) DRUG THERAPY 10/09/2016 COREY NGUYEN MD Ot Z87.891 PERSONAL HISTORY OF NICOTINE DEPENDENCE 10/16/2016 COREY NGUYEN MD Ot D63. 1 ANEMIA IN CHRONIC KIDNEY DISEASE 10/16/2016 COREY NGUYEN MD Ot E10. 21 TYPE 1 DIABETES MELLITUS WITH DIABETIC N 10/16/2016 COREY NGUYEN MD Ot K58. 9 IRRITABLE BOWEL SYNDROME WITHOUT DIARRHE 10/16/2016 COREY NGUYEN MD Ot N18. 9 CHRONIC KIDNEY DISEASE, UNSPECIFIED 10/16/2016 COREY NGUYEN MD Ot Z79. 4 SPARE HAND (CURRENT) USE OF INSULIN 10/16/2016 COREY NGUYEN MD Ot Z79.899 OTHER SPARE HAND (CURRENT) DRUG THERAPY 10/16/2016 COREY NGUYEN MD, Ot Z87.891 PERSONAL HISTORY OF NICOTINE DEPENDENCE 10/23/2016 COREY NGUYEN MD Ot D63. 1 ANEMIA IN CHRONIC KIDNEY DISEASE 10/23/2016 COREY NGUYEN MD Ot E10. 21 TYPE 1 DIABETES MELLITUS WITH DIABETIC N 10/23/2016 COREY NGUYEN MD Ot K58. 9 IRRITABLE BOWEL SYNDROME WITHOUT DIARRHE 10/23/2016 COREY NGUYEN MD Ot N18. 9 CHRONIC KIDNEY DISEASE, UNSPECIFIED 10/23/2016 COREY NGUYEN MD Ot Z79. 4 SPARE HAND (CURRENT) USE OF INSULIN 10/23/2016 COREY NGUYEN MD Ot Z79.899 OTHER LONGTERM (CURRENT) DRUG THERAPY 10/23/2016 COREY NGUYEN MD [...] 729.81 SWELLING OF LIMB 10/31/2016 CHEN MCCOY SOFTWARE QUALITY TESTER Ot 611.72 LUMP OR MASS IN BREAST 10/31/2016 LOR YOUNG MD Ot D64.9 ANEMIA, UNSPECIFIED 10/31/2016 HANNAH CASTILLO, LOR Ot 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 MICA MINER 10/31/2016 LOR YOUNG MD Ot I12.9 HYPERTENSIVE CHRONIC KIDNEY DISEASE W ST 10/31/2016 HANNAH CASTILLO, LOR Ot N18.3 CHRONIC KIDNEY DISEASE, STAGE 3 (MODERAT 10/31/2016 LOR YOUNG MD Ot R80.9 PROTEINURIA, UNSPECIFIED 10/31/2016 HANNAH CASTILLO, LOR Ot D64.9 ANEMIA, UNSPECIFIED 10/31/2016 HANNAH CASTILLO, LOR Ot 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 MICA MINER 10/31/2016 LOR YOUNG MD Ot I12.9 HYPERTENSIVE CHRONIC KIDNEY DISEASE W ST 10/31/2016 LOR YOUNG MD Ot N18.3 CHRONIC KIDNEY DISEASE, STAGE 3 (MODERAT 10/31/2016 LOR YOUNG MD Ot R80.9 PROTEINURIA, UNSPECIFIED 10/31/2016 FADI YOUNG MD Ot D64.9 ANEMIA, UNSPECIFIED 10/31/2016 HANNAH CASTILLO, FADI Hughes Ot 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 MICA MINER 10/31/2016 HANNAH CASTILLO, FADI S Ot I95.89 OTHER HYPOTENSION 10/31/2016 FADI YOUNG MD S Ot N18.3 CHRONIC KIDNEY DISEASE, STAGE 3 (MODERAT 10/31/2016 FADI YOUNG MD S Ot R80.9 PROTEINURIA, UNSPECIFIED 10/31/2016 HANNAH CASTILLO, LOR Ot D64.9 ANEMIA, UNSPECIFIED 10/31/2016 HANNAH CASTILLO, LOR Ot E10.9 TYPE 1 DIABETES MELLITUS WITHOUT COMPLIC 10/31/2016 LOR YOUNG MD Ot I95.89 OTHER HYPOTENSION 10/31/2016 LOR YOUNG MD Ot N18.3 CHRONIC KIDNEY DISEASE, STAGE 3 (MODERAT 10/31/2016 LOR YOUNG MD Ot R80.9 PROTEINURIA, UNSPECIFIED 10/31/2016 XUCOREY Anderson MD Ot D63. 1 ANEMIA IN CHRONIC KIDNEY DISEASE 10/31/2016 COREY NGUYEN MD Ot E10. 21 TYPE 1 DIABETES MELLITUS WITH DIABETIC N 10/31/2016 COREY NGUYEN MD Ot K58. 9 IRRITABLE BOWEL SYNDROME WITHOUT DIARRHE 10/31/2016 COREY NGUYEN MD, Ot N18. 9 CHRONIC KIDNEY DISEASE, UNSPECIFIED 10/31/2016 COREY NGUYEN MD, Ot Z79. 4 SPARE HAND (CURRENT) USE OF INSULIN 10/31/2016 COREY NGUYEN MD Ot Z79.899 OTHER LONGTERM (CURRENT) DRUG THERAPY 10/31/2016 COREY NGUYEN MD, Ot Z87.891 PERSONAL HISTORY OF NICOTINE DEPENDENCE 11/22/2016 LRO YOUNG MD Ot D64.9 ANEMIA, UNSPECIFIED 11/22/2016 LOR YOUNG MD Ot 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 MICA MINER 11/22/2016 KEVIN YOUNG MDINE Ot I95.89 OTHER HYPOTENSION 11/22/2016 LOR YOUNG MD Ot N18.3 CHRONIC KIDNEY DISEASE, STAGE 3 (MODERAT 11/22/2016 KEVIN YOUNG MDINE Ot R80.9 PROTEINURIA, UNSPECIFIED 11/27/2016 LOR YOUNG MD Ot D64.9 ANEMIA, UNSPECIFIED 11/27/2016 KEVIN YOUNG MDINE Ot 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 MICA MINER 11/27/2016 KEVIN YOUNG MDINE Ot I95.89 OTHER HYPOTENSION 11/27/2016 LOR YOUNG MD Ot N18.3 CHRONIC KIDNEY DISEASE, STAGE 3 (MODERAT 11/27/2016 LOR YOUNG MD Ot R80.9 PROTEINURIA, UNSPECIFIED 12/02/2016 COREY NGUYEN MD Ot D63. 1 ANEMIA IN CHRONIC KIDNEY DISEASE 12/02/2016 COREY NGUYEN MD Ot E10. 21 TYPE 1 DIABETES MELLITUS WITH DIABETIC N 12/02/2016 COREY NGUYEN MD Ot K58. 9 IRRITABLE BOWEL SYNDROME WITHOUT DIARRHE 12/02/2016 COREY NGUYEN MD Ot N18. 9 CHRONIC KIDNEY DISEASE, UNSPECIFIED 12/02/2016 COREY NGUYEN MD Ot Z79. 4 LONGTERM (CURRENT) USE OF INSULIN 12/02/2016 COREY NGUYEN MD Ot Z79.899 OTHER SPARE HAND (CURRENT) DRUG THERAPY 12/02/2016 COREY NGUYEN MD, Ot Z87.891 PERSONAL HISTORY OF NICOTINE DEPENDENCE 12/06/2016 COREY NGUYEN MD Ot D63. 1 ANEMIA IN CHRONIC KIDNEY DISEASE 12/06/2016 COREY NGUYEN MD Ot E10. 21 TYPE 1 DIABETES MELLITUS WITH DIABETIC N 12/06/2016 COREY NGUYEN MD, Ot K58. 9 IRRITABLE BOWEL SYNDROME WITHOUT DIARRHE 12/06/2016 COREY NGUYEN MD, Ot N18. 9 CHRONIC KIDNEY DISEASE, UNSPECIFIED 12/06/2016 COREY NGUYEN MD, Ot Z79. 4 LONGTERM (CURRENT) USE OF INSULIN 12/06/2016 COREY NGUYEN MD, Ot Z79.899 OTHER SPARE HAND (CURRENT) DRUG THERAPY 12/06/2016 COREY NGUYEN MD, Ot Z87.891 PERSONAL HISTORY OF NICOTINE DEPENDENCE 12/08/2016 COREY NGUYEN MD Ot D63. 1 ANEMIA IN CHRONIC KIDNEY DISEASE 12/08/2016 COREY NGUYEN MD Ot E10. 21 TYPE 1 DIABETES MELLITUS WITH DIABETIC N 12/08/2016 COREY NGUYEN MD, Ot K58. 9 IRRITABLE BOWEL SYNDROME WITHOUT DIARRHE 12/08/2016 COREY NGUYEN MD Ot N18. 9 CHRONIC KIDNEY DISEASE, UNSPECIFIED 12/08/2016 COREY NGUYEN MD Ot Z79. 4 SPARE HAND (CURRENT) USE OF INSULIN 12/08/2016 COREY NGUYEN MD Ot Z79.899 OTHER SPARE HAND (CURRENT) DRUG THERAPY 12/08/2016 COREY NGUYEN MD Ot Z87.891 PERSONAL HISTORY OF NICOTINE DEPENDENCE 01/17/2017 FACUNDO CASTILLO FACC, MELCHOR ALAN CCDS Ot R06.02 SHORTNESS OF BREATH 01/17/2017 COREY NGUYEN MD Ot D63. 1 ANEMIA IN CHRONIC KIDNEY DISEASE 01/17/2017 COREY NGUYEN MD Ot E10. 21 TYPE 1 DIABETES MELLITUS WITH DIABETIC N 01/17/2017 COREY NGUYEN MD Ot K58. 9 IRRITABLE BOWEL SYNDROME WITHOUT DIARRHE 01/17/2017 COREY NGUYEN MD Ot N18. 9 CHRONIC KIDNEY DISEASE, UNSPECIFIED 01/17/2017 COREY NGUYEN MD Ot Z79. 4 LONGTERM (CURRENT) USE OF INSULIN 01/17/2017 COREY NGUYEN MD Ot Z79.899 OTHER SPARE HAND (CURRENT) DRUG THERAPY 01/17/2017 COREY NGUYEN MD Ot Z87.891 PERSONAL HISTORY OF NICOTINE DEPENDENCE 01/20/2017 FACUNDO CASTILLO FACC, ALI FACP CCDS Ot R06.02 SHORTNESS OF BREATH 01/23/2017 COREY NGUYEN MD Ot D63. 1 ANEMIA IN CHRONIC KIDNEY DISEASE 01/23/2017 COREY NGUYEN MD Ot E10. 21 TYPE 1 DIABETES MELLITUS WITH DIABETIC N 01/23/2017 COREY NGUYEN MD, Ot K58. 9 IRRITABLE BOWEL SYNDROME WITHOUT DIARRHE 01/23/2017 COREY NGUYEN MD, Ot N18. 9 CHRONIC KIDNEY DISEASE, UNSPECIFIED 01/23/2017 COREY NGUYEN MD, Ot Z79. 4 LONGTERM (CURRENT) USE OF INSULIN 01/23/2017 COREY NGUYEN MD Ot Z79.899 OTHER SPARE HAND (CURRENT) DRUG THERAPY 01/23/2017 COREY NGUYEN MD [...] 3 (MODERAT 03/05/2017 COREY NGUYEN MD Ot D63. 1 ANEMIA IN CHRONIC KIDNEY DISEASE 03/05/2017 COREY NGUYEN MD Ot E10. 21 TYPE 1 DIABETES MELLITUS WITH DIABETIC N 03/05/2017 COREY NGUYEN MD, Ot K58. 9 IRRITABLE BOWEL SYNDROME WITHOUT DIARRHE 03/05/2017 COREY NGUYEN MD, Ot N18. 9 CHRONIC KIDNEY DISEASE, UNSPECIFIED 03/05/2017 COREY NGUYEN MD Ot Z79. 4 LONGTERM (CURRENT) USE OF INSULIN 03/05/2017 COREY NGUYEN MD Ot Z79.899 OTHER SPARE HAND (CURRENT) DRUG THERAPY 03/05/2017 COREY NGUYEN MD, Ot Z87.891 PERSONAL HISTORY OF NICOTINE DEPENDENCE 03/21/2017 COREY NGUYEN MD, Ot D63. 1 ANEMIA IN CHRONIC KIDNEY DISEASE 03/21/2017 COREY NGUYEN MD Ot E10. 21 TYPE 1 DIABETES MELLITUS WITH DIABETIC N 03/21/2017 COREY NGUYEN MD, Ot K58. 9 IRRITABLE BOWEL SYNDROME WITHOUT DIARRHE 03/21/2017 COREY NGUYEN MD, Ot N18. 9 CHRONIC KIDNEY DISEASE, UNSPECIFIED 03/21/2017 COREY NGUYEN MD, Ot Z79. 4 LONGTERM (CURRENT) USE OF INSULIN 03/21/2017 COREY NGUYEN MD Ot Z79.899 OTHER SPARE HAND (CURRENT) DRUG THERAPY 03/21/2017 COREY NGUYEN MD [...] PROTEINURIA, UNSPECIFIED 04/17/2017 COREY NGUYEN MD Ot D63. 1 ANEMIA IN CHRONIC KIDNEY DISEASE 04/17/2017 COREY NGUYEN MD Ot E10. 21 TYPE 1 DIABETES MELLITUS WITH DIABETIC N 04/17/2017 COREY NGUYEN MD, Ot K58. 9 IRRITABLE BOWEL SYNDROME WITHOUT DIARRHE 04/17/2017 COREY NGUYEN MD, Ot N18. 3 CHRONIC KIDNEY DISEASE, STAGE 3 (MODERAT 04/17/2017 COREY NGUYEN MD, Ot Z79. 4 SPARE HAND (CURRENT) USE OF INSULIN 04/17/2017 COREY NGUYEN MD, Ot Z79.899 OTHER LONGTERM (CURRENT) DRUG THERAPY 04/17/2017 COREY NGUYEN MD, Ot Z87.891 PERSONAL HISTORY OF NICOTINE DEPENDENCE 04/22/2017 LOR YOUNG MD Ot D64.9 ANEMIA, UNSPECIFIED 04/22/2017 LOR YOUNG MD Ot E10.9 TYPE 1 DIABETES MELLITUS WITHOUT COMPLIC 04/22/2017 LOR YOUNG MD Ot I95.89 OTHER HYPOTENSION 04/22/2017 LOR YOUNG MD Ot N18.3 CHRONIC KIDNEY DISEASE, STAGE 3 (MODERAT 04/22/2017 LOR YOUNG MD Ot R80.9 PROTEINURIA, UNSPECIFIED 04/29/2017 COREY NGUYEN MD, Ot D63. 1 ANEMIA IN CHRONIC KIDNEY DISEASE 04/29/2017 COREY NGUYEN MD, Ot E10. 21 TYPE 1 DIABETES MELLITUS WITH DIABETIC N 04/29/2017 COREY NGUYEN MD, Ot K58. 9 IRRITABLE BOWEL SYNDROME WITHOUT DIARRHE 04/29/2017 COREY NGUYEN MD, Ot N18. 3 CHRONIC KIDNEY DISEASE, STAGE 3 (MODERAT 04/29/2017 COREY NGUYEN MD, Ot Z79. 4 SPARE HAND (CURRENT) USE OF INSULIN 04/29/2017 COREY NGUYEN MD, Ot Z79.899 OTHER LONGTERM (CURRENT) DRUG THERAPY 04/29/2017 CORYE NGUYEN MD, Ot Z87.891 PERSONAL HISTORY OF NICOTINE DEPENDENCE 05/22/2017 ALAYNA ZUÑIGA OD Ot E11 .9 TYPE 2 DIABETES MELLITUS WITHOUT COMPLIC 05/22/2017 ALAYNA ZUÑIGA OD Ot E11 .9 TYPE 2 DIABETES MELLITUS WITHOUT COMPLIC 05/22/2017 ALAYNA ZUÑIGA OD Ot E11 .9 TYPE 2 DIABETES MELLITUS WITHOUT COMPLIC 05/22/2017 ALAYNA ZUÑIGA R OD Ot E11 .9 TYPE 2 DIABETES MELLITUS WITHOUT COMPLIC 05/22/2017 ALAYNA ZUÑIGA R OD Ot E11 .9 TYPE 2 DIABETES MELLITUS WITHOUT COMPLIC 06/13/2017 ALAYNA ZUÑIGA R OD Ot E11 .9 TYPE 2 DIABETES MELLITUS WITHOUT COMPLIC 2017 COREY NGUYEN MD, Ot D63. 1 ANEMIA IN CHRONIC KIDNEY DISEASE 2017 COREY NGUYEN MD, Ot E10. 21 TYPE 1 DIABETES MELLITUS WITH DIABETIC N 2017 COREY NGUYEN MD, Ot K58. 9 IRRITABLE BOWEL SYNDROME WITHOUT DIARRHE 2017 COREY NGUYEN MD, Ot N18. 3 CHRONIC KIDNEY DISEASE, STAGE 3 (MODERAT 2017 COREY NGUYEN MD, Ot Z79. 4 LONGTERM (CURRENT) USE OF INSULIN 2017 COREY NGUYEN MD, Ot Z79.899 OTHER SPARE HAND (CURRENT) DRUG THERAPY 2017 COREY NGUYEN MD, Ot Z87.891 PERSONAL HISTORY OF NICOTINE DEPENDENCE 2017 LOR YOUNG MD Ot D64.9 ANEMIA, UNSPECIFIED 2017 LOR YOUNG MD Ot 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 MICA MINER 2017 LOR YOUNG MD Ot I95.1 ORTHOSTATIC HYPOTENSION 2017 LOR YOUNG MD Ot I95.89 OTHER HYPOTENSION 2017 LOR YOUNG MD Ot R80.9 PROTEINURIA, UNSPECIFIED 06/21/2017 ALAYNA ZUÑIGA R OD Ot E11 .9 TYPE 2 DIABETES MELLITUS WITHOUT COMPLIC 06/21/2017 ALAYNA ZUÑIGA R OD Ot E11 .9 TYPE 2 DIABETES MELLITUS WITHOUT COMPLIC 07/04/2017 COREY NGUYEN MD, Ot D63. 1 ANEMIA IN CHRONIC KIDNEY DISEASE 07/04/2017 COREY NGUYEN MD, Ot E10. 21 TYPE 1 DIABETES MELLITUS WITH DIABETIC N 07/04/2017 COREY NGUYEN MD, Ot K58. 9 IRRITABLE BOWEL SYNDROME WITHOUT DIARRHE 07/04/2017 COREY NGUYEN MD, Ot N18. 3 CHRONIC KIDNEY DISEASE, STAGE 3 (MODERAT 07/04/2017 COREY NGUYEN MD Ot Z79. 4 LONGTERM (CURRENT) USE OF INSULIN 07/04/2017 COREY NGUYEN MD Ot Z79.899 OTHER LONGTERM (CURRENT) DRUG THERAPY 07/04/2017 COREY NGUYEN MD Ot Z87.891 PERSONAL HISTORY OF NICOTINE DEPENDENCE 07/24/2017 LOR YOUNG MD Ot D64.9 ANEMIA, UNSPECIFIED 07/24/2017 LOR YOUNG MD Ot 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 MICA MINER 07/24/2017 HANNAH CASTILLO LOR Ot I95.1 ORTHOSTATIC HYPOTENSION 07/24/2017 HANNAH CASTILLO LOR Ot I95.89 OTHER HYPOTENSION 07/24/2017 LOR YOUNG MD Ot R80.9 PROTEINURIA, UNSPECIFIED 08/05/2017 LOR YOUNG MD Ot D64.9 ANEMIA, UNSPECIFIED 08/05/2017 LOR YOUNG MD Ot 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 MICA MINER 08/05/2017 HANNAH CASTILLO LOR Ot I95.1 ORTHOSTATIC HYPOTENSION 08/05/2017 HANNAH CASTILLO LOR Ot I95.89 OTHER HYPOTENSION 08/05/2017 KEVIN YOUNG MDINE Ot R80.9 PROTEINURIA, UNSPECIFIED 08/05/2017 KEVIN YOUNG MDINE Ot D64.9 ANEMIA, UNSPECIFIED 08/05/2017 LOR YOUNG MD Ot 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 MICA MINER 08/05/2017 HANNAH CASTILLO LOR Ot I95.1 ORTHOSTATIC HYPOTENSION 08/05/2017 HANNAH CASTILLO LOR Ot I95.89 OTHER HYPOTENSION 08/05/2017 LOR YOUNG MD Ot R80.9 PROTEINURIA, UNSPECIFIED 08/16/2017 COREY NGUYEN MD Ot D63. 1 ANEMIA IN CHRONIC KIDNEY DISEASE 08/16/2017 COREY NGUYEN MD Ot E10. 21 TYPE 1 DIABETES MELLITUS WITH DIABETIC N 08/16/2017 COREY NGUYEN MD Ot K58. 9 IRRITABLE BOWEL SYNDROME WITHOUT DIARRHE 08/16/2017 COREY NGUYEN MD Ot N18. 3 CHRONIC KIDNEY DISEASE, STAGE 3 (MODERAT 08/16/2017 COREY NGUYEN MD Ot Z79. 4 LONGTERM (CURRENT) USE OF INSULIN 08/16/2017 COREY NGUYEN MD Ot Z79.899 OTHER SPARE HAND (CURRENT) DRUG THERAPY 08/16/2017 COREY NGUYEN MD Ot Z87.891 PERSONAL HISTORY OF NICOTINE DEPENDENCE 08/23/2017 COREY NGUYEN MD Ot D63. 1 ANEMIA IN CHRONIC KIDNEY DISEASE 08/23/2017 COREY NGUYEN MD Ot E10. 21 TYPE 1 DIABETES MELLITUS WITH DIABETIC N 08/23/2017 COREY NGUYEN MD Ot K58. 9 IRRITABLE BOWEL SYNDROME WITHOUT DIARRHE 08/23/2017 COREY NGUYEN MD, Ot N18. 3 CHRONIC KIDNEY DISEASE, STAGE 3 (MODERAT 08/23/2017 COREY NGUYEN MD Ot Z79. 4 LONGTERM (CURRENT) USE OF INSULIN 08/23/2017 COREY NGUYEN MD Ot Z79.899 OTHER LONGTERM (CURRENT) DRUG THERAPY 08/23/2017 COREY NGUYEN MD Ot Z87.891 PERSONAL HISTORY OF NICOTINE DEPENDENCE 08/24/2017 COREY NGUYEN MD Ot D63. 1 ANEMIA IN CHRONIC KIDNEY DISEASE 08/24/2017 COREY NGUYEN MD Ot E10. 21 TYPE 1 DIABETES MELLITUS WITH DIABETIC N 08/24/2017 COREY NGUYEN MD Ot K58. 9 IRRITABLE BOWEL SYNDROME WITHOUT DIARRHE 08/24/2017 COREY NGUYEN MD Ot N18. 3 CHRONIC KIDNEY DISEASE, STAGE 3 (MODERAT 08/24/2017 COREY NGUYEN MD Ot Z79. 4 LONGTERM (CURRENT) USE OF INSULIN 08/24/2017 COREY NGUYEN MD Ot Z79.899 OTHER LONGTERM (CURRENT) DRUG THERAPY 08/24/2017 COREY NGUYEN MD Ot Z87.891 PERSONAL HISTORY OF NICOTINE DEPENDENCE 08/29/2017 COREY NGUYEN MD Ot D63. 1 ANEMIA IN CHRONIC KIDNEY DISEASE 08/29/2017 COREY NGUYEN MD Ot E10. 21 TYPE 1 DIABETES MELLITUS WITH DIABETIC N 08/29/2017 COREY NGUYEN MD Ot K58. 9 IRRITABLE BOWEL SYNDROME WITHOUT DIARRHE 08/29/2017 COREY NGUYEN MD, Ot N18. 3 CHRONIC KIDNEY DISEASE, STAGE 3 (MODERAT 08/29/2017 COREY NGUYEN MD, Ot Z79. 4 SPARE HAND (CURRENT) USE OF INSULIN 08/29/2017 COREY NGUYEN MD, Ot Z79.899 OTHER LONGTERM (CURRENT) DRUG THERAPY 08/29/2017 COREY NGUYEN MD, Ot Z87.891 PERSONAL HISTORY OF NICOTINE DEPENDENCE 08/30/2017 COREY NGUYEN MD Ot D63. 1 ANEMIA IN CHRONIC KIDNEY DISEASE 08/30/2017 COREY NGUYEN MD Ot E10. 21 TYPE 1 DIABETES MELLITUS WITH DIABETIC N 08/30/2017 COREY NGUYEN MD, Ot K58. 9 IRRITABLE BOWEL SYNDROME WITHOUT DIARRHE 08/30/2017 COREY NGUYEN MD, Ot N18. 9 CHRONIC KIDNEY DISEASE, UNSPECIFIED 08/30/2017 COREY NGUYEN MD, Ot Z79. 4 LONGTERM (CURRENT) USE OF INSULIN 08/30/2017 COREY NGUYEN MD, Ot Z79.899 OTHER LONGTERM (CURRENT) DRUG THERAPY 08/30/2017 COREY NGUYEN MD, [...] 729.81 SWELLING OF LIMB 08/30/2017 CHEN MCCOY SOFTWARE QUALITY TESTER Ot 611.72 LUMP OR MASS IN BREAST 08/30/2017 LOR YOUNG MD Ot D64.9 ANEMIA, UNSPECIFIED 08/30/2017 LOR YOUNG MD Ot 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 MICA MINER 08/30/2017 LOR YOUNG MD Ot I12.9 HYPERTENSIVE CHRONIC KIDNEY DISEASE W ST 08/30/2017 LOR YOUNG MD Ot N18.3 CHRONIC KIDNEY DISEASE, STAGE 3 (MODERAT 08/30/2017 LOR YOUNG MD Ot R80.9 PROTEINURIA, UNSPECIFIED 08/30/2017 HANNAH CASTILLO, LOR Ot D64.9 ANEMIA, UNSPECIFIED 08/30/2017 HANNAH CASTILLO, LOR Ot 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 MICA MINER 08/30/2017 HANNAH CASTILLO, LOR Ot I12.9 HYPERTENSIVE CHRONIC KIDNEY DISEASE W ST 08/30/2017 LOR YOUNG MD Ot N18.3 CHRONIC KIDNEY DISEASE, STAGE 3 (MODERAT 08/30/2017 LOR YOUNG MD Ot R80.9 PROTEINURIA, UNSPECIFIED 08/30/2017 HANNAH CASTILLO, GONZALOMED S Ot D64.9 ANEMIA, UNSPECIFIED 08/30/2017 HANNAH CASTILLO, AHMED S Ot 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 MICA MINER 08/30/2017 HANNAH CASTILLO, AHMED S Ot I95.89 OTHER HYPOTENSION 08/30/2017 HANNAH CASTILLO, GONZALOMED S Ot N18.3 CHRONIC [...] 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 MICA MINER 08/30/2017 KEVIN YOUNG MDINE Ot I95.89 OTHER HYPOTENSION 08/30/2017 LOR YOUNG MD Ot N18.3 CHRONIC KIDNEY DISEASE, STAGE 3 (MODERAT 08/30/2017 LOR YOUNG MD Ot R80.9 PROTEINURIA, UNSPECIFIED 08/30/2017 FACUNDO CASTILLO FAC, ALI DIEGOP CCDS Ot R06.02 SHORTNESS OF BREATH 08/30/2017 FACUNDO CASTILLO FAC, ALI DIEGOP CCDS [...] PROTEINURIA, UNSPECIFIED 08/30/2017 ALAYNA ZUÑIGA OD Ot E11 .9 TYPE 2 DIABETES MELLITUS WITHOUT COMPLIC 08/30/2017 LOR YOUNG MD Ot D64.9 ANEMIA, UNSPECIFIED 08/30/2017 LOR YOUNG MD Ot 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 MICA MINER 08/30/2017 LOR YOUNG MD Ot I95.1 ORTHOSTATIC HYPOTENSION 08/30/2017 LOR YOUNG MD Ot I95.89 OTHER HYPOTENSION 08/30/2017 LOR YOUNG MD Ot R80.9 PROTEINURIA, UNSPECIFIED 08/30/2017 COREY NGUYEN MD Ot D63. 1 ANEMIA IN CHRONIC KIDNEY DISEASE 08/30/2017 COREY NGUYEN MD Ot E10. 21 TYPE 1 DIABETES MELLITUS WITH DIABETIC N 08/30/2017 COREY NGUYEN MD Ot K58. 9 IRRITABLE BOWEL SYNDROME WITHOUT DIARRHE 08/30/2017 COREY NGUYEN MD Ot N18. 3 CHRONIC KIDNEY DISEASE, STAGE 3 (MODERAT 08/30/2017 COREY NGUYEN MD Ot Z79. 4 SPARE HAND (CURRENT) USE OF INSULIN 08/30/2017 COREY NGUYEN MD, Ot Z79.899 OTHER SPARE HAND (CURRENT) DRUG THERAPY 08/30/2017 COREY NGUYEN MD, [...] Ot R80.9 PROTEINURIA, UNSPECIFIED 09/02/2017 COREY NGUYEN MD, Ot D63. 1 ANEMIA IN CHRONIC KIDNEY DISEASE 09/02/2017 COREY NGUYEN MD Ot E10. 21 TYPE 1 DIABETES MELLITUS WITH DIABETIC N 09/02/2017 COREY NGUYEN MD Ot K58. 9 IRRITABLE BOWEL SYNDROME WITHOUT DIARRHE 09/02/2017 COREY NGUYEN MD Ot N18. 3 CHRONIC KIDNEY DISEASE, STAGE 3 (MODERAT 09/02/2017 COREY NGUYEN MD Ot Z79. 4 SPARE HAND (CURRENT) USE OF INSULIN 09/02/2017 COREY NGUYEN MD Ot Z79.899 OTHER LONGTERM (CURRENT) DRUG THERAPY 09/02/2017 CORYE NGUYEN MD Ot Z87.891 PERSONAL HISTORY OF NICOTINE DEPENDENCE 09/06/2017 COREY NGUYEN MD Ot D63. 1 ANEMIA IN CHRONIC KIDNEY DISEASE 09/06/2017 COREY NGUYEN MD Ot E10. 21 TYPE 1 DIABETES MELLITUS WITH DIABETIC N 09/06/2017 COREY NGUYEN MD Ot K58. 9 IRRITABLE BOWEL SYNDROME WITHOUT DIARRHE 09/06/2017 COREY NGUYEN MD Ot N18. 9 CHRONIC KIDNEY DISEASE, UNSPECIFIED 09/06/2017 COREY NGUYEN MD Ot Z79. 4 LONGTERM (CURRENT) USE OF INSULIN 09/06/2017 COREY NGUYEN MD Ot Z79.899 OTHER LONGTERM (CURRENT) DRUG THERAPY 09/06/2017 COREY NGUYEN MD Ot Z87.891 PERSONAL HISTORY OF NICOTINE DEPENDENCE 09/18/2017 LOR YOUNG MD Ot D64.9 ANEMIA, UNSPECIFIED 09/18/2017 KEVIN YOUNG MDINE Ot E10.9 TYPE 1 DIABETES MELLITUS WITHOUT COMPLIC 09/18/2017 HANNAH CASTILLO, LOR Ot I95.1 ORTHOSTATIC HYPOTENSION 09/18/2017 HANNAH CASTILLO, LOR Ot N18.3 CHRONIC KIDNEY DISEASE, STAGE 3 (MODERAT 09/18/2017 HANNAH CASTILLO, LOR Ot R80.9 PROTEINURIA, UNSPECIFIED 10/18/2017 COREY NGUYEN MD Ot D63. 1 ANEMIA IN CHRONIC KIDNEY DISEASE 10/18/2017 COREY NGUYEN MD Ot E10. 21 TYPE 1 DIABETES MELLITUS WITH DIABETIC N 10/18/2017 COREY NGUYEN MD Ot K58. 9 IRRITABLE BOWEL SYNDROME WITHOUT DIARRHE 10/18/2017 COREY NGUYEN MD Ot N18. 3 CHRONIC KIDNEY DISEASE, STAGE 3 (MODERAT 10/18/2017 COREY NGUYEN MD Ot Z79. 4 SPARE HAND (CURRENT) USE OF INSULIN 10/18/2017 COREY NGUYEN MD Ot Z79.899 OTHER LONGTERM (CURRENT) DRUG THERAPY 10/18/2017 COREY NGUYEN MD Ot Z87.891 PERSONAL HISTORY OF NICOTINE DEPENDENCE 10/25/2017 COREY NGUYEN MD Ot D63. 1 ANEMIA IN CHRONIC KIDNEY DISEASE 10/25/2017 COREY NGUYEN MD Ot E10. 21 TYPE 1 DIABETES MELLITUS WITH DIABETIC N 10/25/2017 COREY NGUYEN MD Ot K58. 9 IRRITABLE BOWEL SYNDROME WITHOUT DIARRHE 10/25/2017 COREY NGUYEN MD Ot N18. 3 CHRONIC KIDNEY DISEASE, STAGE 3 (MODERAT 10/25/2017 COREY NGUYEN MD Ot Z79. 4 LONGTERM (CURRENT) USE OF INSULIN 10/25/2017 COREY NGUYEN MD Ot Z79.899 OTHER SPARE HAND (CURRENT) DRUG THERAPY 10/25/2017 COREY NGUYEN MD Ot Z87.891 PERSONAL HISTORY OF NICOTINE DEPENDENCE 10/30/2017 COREY NGUYEN MD Ot D63. 1 ANEMIA IN CHRONIC KIDNEY DISEASE 10/30/2017 COREY NGUYEN MD Ot E10. 21 TYPE 1 DIABETES MELLITUS WITH DIABETIC N 10/30/2017 COREY NGUYEN MD Ot K58. 9 IRRITABLE BOWEL SYNDROME WITHOUT DIARRHE 10/30/2017 COREY NGUYEN MD Ot N18. 3 CHRONIC KIDNEY DISEASE, STAGE 3 (MODERAT 10/30/2017 COREY NGUYEN MD Ot Z79. 4 SPARE HAND (CURRENT) USE OF INSULIN 10/30/2017 COREY NGUYEN MD Ot Z79.899 OTHER LONGTERM (CURRENT) DRUG THERAPY 10/30/2017 COREY NGUYEN MD Ot Z87.891 PERSONAL HISTORY OF NICOTINE DEPENDENCE 10/30/2017 COREY NGUYEN MD Ot D63. 1 ANEMIA IN CHRONIC KIDNEY DISEASE 10/30/2017 COREY NGUYEN MD Ot E10. 21 TYPE 1 DIABETES MELLITUS WITH DIABETIC N 10/30/2017 COREY NGUYEN MD Ot K58. 9 IRRITABLE BOWEL SYNDROME WITHOUT DIARRHE 10/30/2017 COREY NGUYEN MD Ot N18. 3 CHRONIC KIDNEY DISEASE, STAGE 3 (MODERAT 10/30/2017 COREY NGUYEN MD Ot Z79. 4 SPARE HAND (CURRENT) USE OF INSULIN 10/30/2017 COREY NGUYEN MD Ot Z79.899 OTHER LONGTERM (CURRENT) DRUG THERAPY 10/30/2017 COREY NGUYEN MD Ot Z87.891 PERSONAL HISTORY OF NICOTINE DEPENDENCE 11/26/2017 COREY NGUYEN MD Ot D63. 1 ANEMIA IN CHRONIC KIDNEY DISEASE 11/26/2017 COREY NGUYEN MD Ot E10. 21 TYPE 1 DIABETES MELLITUS WITH DIABETIC N 11/26/2017 COREY NGUYNE MD Ot K58. 9 IRRITABLE BOWEL SYNDROME WITHOUT DIARRHE 11/26/2017 COREY NGUYEN MD Ot N18. 3 CHRONIC KIDNEY DISEASE, STAGE 3 (MODERAT 11/26/2017 COREY NGUYEN MD Ot Z79. 4 SPARE HAND (CURRENT) USE OF INSULIN 11/26/2017 COREY NGUYEN MD Ot Z79.899 OTHER LONGTERM (CURRENT) DRUG THERAPY 11/26/2017 COREY NGUYEN MD Ot Z87.891 PERSONAL HISTORY OF NICOTINE DEPENDENCE 01/17/2018 COREY NGUYEN MD Ot D63. 1 ANEMIA IN CHRONIC KIDNEY DISEASE 01/17/2018 COREY NGUYEN MD Ot E10. 21 TYPE 1 DIABETES MELLITUS WITH DIABETIC N 01/17/2018 COREY NGUYEN MD Ot K58. 9 IRRITABLE BOWEL SYNDROME WITHOUT DIARRHE 01/17/2018 COREY NGUYEN MD Ot N18. 3 CHRONIC KIDNEY DISEASE, STAGE 3 (MODERAT 01/17/2018 COREY NGUYEN MD Ot Z79. 4 SPARE HAND (CURRENT) USE OF INSULIN 01/17/2018 COREY NGUYEN MD Ot Z79.899 OTHER SPARE HAND (CURRENT) DRUG THERAPY 01/17/2018 COREY NGUYEN MD Ot Z87.891 PERSONAL HISTORY OF NICOTINE DEPENDENCE 02/24/2018 LOR YOUNG MD Ot D64.9 ANEMIA, UNSPECIFIED 02/24/2018 LOR YOUNG MD Ot E10.9 TYPE 1 DIABETES MELLITUS WITHOUT COMPLIC 02/24/2018 LOR YOUNG MD Ot E55.9 VITAMIN D DEFICIENCY, UNSPECIFIED 02/24/2018 KEVIN YOUNG MDINE Ot I95.1 ORTHOSTATIC HYPOTENSION 02/24/2018 KEVIN YOUNG MDINE Ot I95.89 OTHER HYPOTENSION 02/24/2018 LOR YOUNG MD Ot N18.3 CHRONIC KIDNEY DISEASE, STAGE 3 (MODERAT 02/24/2018 LOR YOUNG MD Ot R80.9 PROTEINURIA, UNSPECIFIED 03/05/2018 REJI CASTILLO, DARNELL W Ot E10.8 TYPE 1 DIABETES MELLITUS WITH UNSPECIFIE 03/12/2018 REJI CASTILLO, DARNELL W Ot E10.8 TYPE 1 DIABETES MELLITUS WITH UNSPECIFIE 03/14/2018 LOR YOUNG MD Ot D64.9 ANEMIA, UNSPECIFIED 03/14/2018 LOR YOUNG MD Ot E10.9 TYPE 1 DIABETES MELLITUS WITHOUT COMPLIC 03/14/2018 LOR YOUNG MD Ot E55.9 VITAMIN D DEFICIENCY, UNSPECIFIED 03/14/2018 KEVIN YOUNG MDINE Ot I95.1 ORTHOSTATIC HYPOTENSION 03/14/2018 KEVIN YOUNG MDINE Ot I95.89 OTHER HYPOTENSION 03/14/2018 LOR YOUNG MD Ot N18.3 CHRONIC KIDNEY DISEASE, STAGE 3 (MODERAT 03/14/2018 LOR YOUNG MD Ot R80.9 PROTEINURIA, UNSPECIFIED 03/18/2018 COREY NGUYEN MD Ot D63. 1 ANEMIA IN CHRONIC KIDNEY DISEASE 03/18/2018 COREY NGUYEN MD Ot E10. 21 TYPE 1 DIABETES MELLITUS WITH DIABETIC N 03/18/2018 COREY NGUYEN MD Ot K58. 9 IRRITABLE BOWEL SYNDROME WITHOUT DIARRHE 03/18/2018 COREY NGUYEN MD, Ot N18. 3 CHRONIC KIDNEY DISEASE, STAGE 3 (MODERAT 03/18/2018 COREY NGUYEN MD Ot Z79. 4 SPARE HAND (CURRENT) USE OF INSULIN 03/18/2018 COREY NGUYEN MD Ot Z79.899 OTHER SPARE HAND (CURRENT) DRUG THERAPY 03/18/2018 COREY NGUYEN MD Ot Z87.891 PERSONAL HISTORY OF NICOTINE DEPENDENCE 03/19/2018 COREY NGUYEN MD Ot D63. 1 ANEMIA IN CHRONIC KIDNEY DISEASE 03/19/2018 COREY NGUYEN MD Ot E10. 21 TYPE 1 DIABETES MELLITUS WITH DIABETIC N 03/19/2018 COREY NGUYEN MD Ot K58. 9 IRRITABLE BOWEL SYNDROME WITHOUT DIARRHE 03/19/2018 COREY NGUYEN MD Ot N18. 3 CHRONIC KIDNEY DISEASE, STAGE 3 (MODERAT 03/19/2018 COREY NGUYEN MD Ot Z79. 4 LONGTERM (CURRENT) USE OF INSULIN 03/19/2018 COREY NGUYEN MD Ot Z79.899 OTHER LONGTERM (CURRENT) DRUG THERAPY 03/19/2018 COREY NGUYEN MD, Ot Z87.891 PERSONAL HISTORY OF NICOTINE DEPENDENCE 03/21/2018 LOR YOUNG MD Ot D64.9 ANEMIA, UNSPECIFIED 03/21/2018 LOR YOUNG MD Ot E10.9 TYPE 1 DIABETES MELLITUS WITHOUT COMPLIC 03/21/2018 LOR YOUNG MD Ot E55.9 VITAMIN D DEFICIENCY, UNSPECIFIED 03/21/2018 KEVIN YOUNG MDINE Ot I95.1 ORTHOSTATIC HYPOTENSION 03/21/2018 HANNAH CASTILLO, LOR Ot I95.89 OTHER HYPOTENSION 03/21/2018 LOR YOUNG MD Ot N18.3 CHRONIC KIDNEY DISEASE, STAGE 3 (MODERAT 03/21/2018 HANNAH CASTILLO, LOR Ot R80.9 PROTEINURIA, UNSPECIFIED 03/28/2018 REJI CASTILLO, DARNELL Johnson Ot E10.8 TYPE 1 DIABETES MELLITUS WITH UNSPECIFIE 04/04/2018 COREY NGUYEN MD Ot D63. 1 ANEMIA IN CHRONIC KIDNEY DISEASE 04/04/2018 COREY NGUYEN MD Ot E10. 21 TYPE 1 DIABETES MELLITUS WITH DIABETIC N 04/04/2018 COREY NGUYEN MD Ot K58. 9 IRRITABLE BOWEL SYNDROME WITHOUT DIARRHE 04/04/2018 COREY NGUYEN MD Ot N18. 3 CHRONIC KIDNEY DISEASE, STAGE 3 (MODERAT 04/04/2018 COREY NGUYEN MD Ot Z79. 4 SPARE HAND (CURRENT) USE OF INSULIN 04/04/2018 COREY NGUYEN MD Ot Z79.899 OTHER SPARE HAND (CURRENT) DRUG THERAPY 04/04/2018 COREY NGUYNE MD, Ot Z87.891 PERSONAL HISTORY OF NICOTINE DEPENDENCE 04/23/2018 DAYAN ORTEGA MD Ot H25.11 AGE-RELATED NUCLEAR CATARACT, RIGHT EYE 04/23/2018 DAYAN ORTEGA MD Ot Z01.818 ENCOUNTER FOR OTHER PREPROCEDURAL EXAMIN 04/23/2018 DAYAN ORTEGA MD Ot H25.11 AGE-RELATED NUCLEAR CATARACT, RIGHT EYE 04/23/2018 DAYAN ORTEGA MD Ot Z01.818 ENCOUNTER FOR OTHER PREPROCEDURAL EXAMIN 04/25/2018 DAYAN ORTEGA MD Ot E10 .9 TYPE 1 DIABETES MELLITUS WITHOUT COMPLIC 04/25/2018 DAYAN ORTEGA MD Ot H25.11 AGE-RELATED NUCLEAR CATARACT, RIGHT EYE 04/25/2018 DAYAN ORTEGA MD Ot Z79.899 OTHER SPARE HAND (CURRENT) DRUG THERAPY 04/28/2018 DAYAN ORTEGA MD Ot E10 .9 TYPE 1 DIABETES MELLITUS WITHOUT COMPLIC 04/28/2018 DAYAN ORTEGA MD Ot H25.11 AGE-RELATED NUCLEAR CATARACT, RIGHT EYE 04/28/2018 DAYAN ORTEGA MD Ot Z79.899 OTHER SPARE HAND (CURRENT) DRUG THERAPY 06/04/2018 DAYAN ORTEGA MD Ot Z01.818 ENCOUNTER FOR OTHER PREPROCEDURAL EXAMIN 06/06/2018 DAYAN ORTEGA MD Ot D64 .9 ANEMIA, UNSPECIFIED 06/06/2018 DAYAN ORTEGA MD Ot 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 MICA MINER 06/06/2018 JORDAN CASTILLO, DAYAN Kenyon Ot E10.36 TYPE 1 DIABETES MELLITUS WITH DIABETIC C 06/06/2018 JORDAN CASTILLO, DAYAN Kenyon Ot E55 .9 VITAMIN D DEFICIENCY, UNSPECIFIED 06/06/2018 JORDAN CASTILLO, DAYAN L Ot I95 .1 ORTHOSTATIC HYPOTENSION 06/06/2018 JORDAN CASTILLO, DAYAN L Ot I95.89 OTHER HYPOTENSION 06/06/2018 JORDAN CASTILLO, DAYAN Kenyon Ot N18 .3 CHRONIC KIDNEY DISEASE, STAGE 3 (MODERAT 06/06/2018 DAYAN ORTEGA MD Ot R56 .9 UNSPECIFIED CONVULSIONS 06/06/2018 DAYAN ORTEGA MD Ot R80 .9 PROTEINURIA, UNSPECIFIED 06/06/2018 JORDAN CASTILLO, DAYAN Kenyon Ot Z79 .4 LONGTERM (CURRENT) USE OF INSULIN 06/06/2018 DAYAN ORTEGA MD Ot Z79.899 OTHER LONGTERM (CURRENT) DRUG THERAPY 06/06/2018 JAYSON CASTILLO, FADI M Ot D64.9 ANEMIA, UNSPECIFIED 06/06/2018 JAYSON CASTILLO, FADI M Ot 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 MICA MINER 06/06/2018 JAYSON CASTILLO, FADI Dozier Ot E55.9 VITAMIN D DEFICIENCY, UNSPECIFIED 06/06/2018 JAYSON CASTILLO, FADI M Ot I95.1 ORTHOSTATIC HYPOTENSION 06/06/2018 JAYSON CASTILLO, FADI M Ot I95.89 OTHER HYPOTENSION 06/06/2018 JAYSON CASTILLO, FADI M Ot N18.3 CHRONIC KIDNEY DISEASE, STAGE 3 (MODERAT 06/06/2018 JAYSON CASTILLO, FADI M Ot R80.9 PROTEINURIA, UNSPECIFIED 06/10/2018 DAYAN ORTEGA MD Ot D64 .9 ANEMIA, UNSPECIFIED 06/10/2018 DAYAN ORTEGA MD Ot 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 MICA MINER 06/10/2018 DAYAN ORTEGA MD Ot E10.36 TYPE 1 DIABETES MELLITUS WITH DIABETIC C 06/10/2018 DAYAN ORTEGA MD Ot E55 .9 VITAMIN D DEFICIENCY, UNSPECIFIED 06/10/2018 DAYAN ORTEGA MD Ot I95 .1 ORTHOSTATIC HYPOTENSION 06/10/2018 DAYAN ORTEGA MD L Ot I95.89 OTHER HYPOTENSION 06/10/2018 DAYAN ORTEGA MD Ot N18 .3 CHRONIC KIDNEY DISEASE, STAGE 3 (MODERAT 06/10/2018 DAYAN ORTEGA MD Ot R56 .9 UNSPECIFIED CONVULSIONS 06/10/2018 DAYAN ORTEGA MD Ot R80 .9 PROTEINURIA, UNSPECIFIED 06/10/2018 DAYAN ORTEGA MD Ot Z79 .4 SPARE HAND (CURRENT) USE OF INSULIN 06/10/2018 DAYAN ORTEGA MD Ot Z79.899 OTHER SPARE HAND (CURRENT) DRUG THERAPY 06/13/2018 DAYAN ORTEGA MD Ot D64 .9 ANEMIA, UNSPECIFIED 06/13/2018 DAYAN ORTEGA MD Ot 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 MICA MINER 06/13/2018 DAYAN ORTEGA MD Ot E10.36 TYPE 1 DIABETES MELLITUS WITH DIABETIC C 06/13/2018 DAYAN ORTEGA MD Ot E55 .9 VITAMIN D DEFICIENCY, UNSPECIFIED 06/13/2018 DAYAN ORTEGA MD L Ot I95 .1 ORTHOSTATIC HYPOTENSION 06/13/2018 ADINA ORTEGA MDNE L Ot I95.89 OTHER HYPOTENSION 06/13/2018 DAYAN ORTEGA MD Ot N18 .3 CHRONIC KIDNEY DISEASE, STAGE 3 (MODERAT 06/13/2018 DAYAN ORTEGA MD Ot R56 .9 UNSPECIFIED CONVULSIONS 06/13/2018 DAYAN ORTEGA MD Ot R80 .9 PROTEINURIA, UNSPECIFIED 06/13/2018 DAYAN ORTEGA MD Ot Z79 .4 SPARE HAND (CURRENT) USE OF INSULIN 06/13/2018 DAYAN ORTEGA MD Ot Z79.899 OTHER SPARE HAND (CURRENT) DRUG THERAPY 07/02/2018 COREY NGUYEN MD Ot D63. 1 ANEMIA IN CHRONIC KIDNEY DISEASE 07/02/2018 COREY NGUYEN MD Ot E10. 21 TYPE 1 DIABETES MELLITUS WITH DIABETIC N 07/02/2018 COREY NGUYEN MD Ot K58. 9 IRRITABLE BOWEL SYNDROME WITHOUT DIARRHE 07/02/2018 COREY NGUYEN MD Ot N18. 3 CHRONIC KIDNEY DISEASE, STAGE 3 (MODERAT 07/02/2018 COREY NGUYEN MD Ot Z79. 4 SPARE HAND (CURRENT) USE OF INSULIN 07/02/2018 COREY NGUYEN MD Ot Z79.899 OTHER LONGTERM (CURRENT) DRUG THERAPY 07/02/2018 COREY NGUYEN MD, Ot Z87.891 PERSONAL HISTORY OF NICOTINE DEPENDENCE 07/11/2018 JAYSON CASTILLO, FADI Dozier Ot D64.9 ANEMIA, UNSPECIFIED 07/11/2018 JAYSON CASTILLO, FADI Dozier Ot 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 MICA MINER 07/11/2018 JAYSON CASTILLO, FADI Dozier Ot E55.9 VITAMIN D DEFICIENCY, UNSPECIFIED 07/11/2018 JAYSON CASTILLO, FADI Dozier Ot I95.1 ORTHOSTATIC HYPOTENSION 07/11/2018 JAYSON CASTILLO, FADI Dozier Ot I95.89 OTHER HYPOTENSION 07/11/2018 JASYON CASTILLO, FADI Dozier Ot N18.3 CHRONIC KIDNEY DISEASE, STAGE 3 (MODERAT 07/11/2018 FADI TYLER MD Ot R80.9 PROTEINURIA, UNSPECIFIED 07/15/2018 FACUNDO CASTILLO FACC, ALI FACP CCDS Ot 780.2 SYNCOPE AND COLLAPSE 07/15/2018 FACUNDO CASTILLO FACC, ALI FACP CCDS Ot 786.59 CHEST PAIN NEC 07/15/2018 FACUNDO CASTILLO FACC, ALI FACP CCDS Ot 780.2 SYNCOPE AND COLLAPSE 07/15/2018 FACUNDO CASTILLO FACC, ALI FACP CCDS Ot 786.59 CHEST PAIN NEC 07/15/2018 FACUNDO CASTILLO FACC, ALI FACP CCDS Ot 729.81 SWELLING OF LIMB 07/15/2018 CHEN MCCOY SOFTWARE QUALITY TESTER Ot 611.72 LUMP OR MASS IN BREAST 07/15/2018 LOR YOUNG MD Ot D64.9 ANEMIA, UNSPECIFIED 07/15/2018 LOR YOUNG MD Ot 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 MICA MINER 07/15/2018 LOR YOUNG MD Ot I12.9 HYPERTENSIVE CHRONIC KIDNEY DISEASE W ST 07/15/2018 LOR YOUNG MD Ot N18.3 CHRONIC KIDNEY DISEASE, STAGE 3 (MODERAT 07/15/2018 LOR YOUNG MD Ot R80.9 PROTEINURIA, UNSPECIFIED 07/15/2018 ABOUL-MAGD MD, LOR Ot D64.9 ANEMIA, UNSPECIFIED 07/15/2018 HANNAH CASTILLO, LOR Ot 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 MICA MINER 07/15/2018 HANNAH CASTILLO, LOR Ot I12.9 HYPERTENSIVE CHRONIC KIDNEY DISEASE W ST 07/15/2018 HANNAH CASTILLO, LOR Ot N18.3 CHRONIC KIDNEY DISEASE, STAGE 3 (MODERAT 07/15/2018 LOR YOUNG MD Ot R80.9 PROTEINURIA, UNSPECIFIED 07/15/2018 HANNAH CASTILLO, AHMED S Ot D64.9 ANEMIA, UNSPECIFIED 07/15/2018 HANNAH CASTILLO, AHMED S Ot 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 MICA MINER 07/15/2018 HANNAH CASTILLO, AHMED S Ot I95.89 OTHER HYPOTENSION 07/15/2018 HANNAH CASTILLO, AHMED S Ot N18.3 CHRONIC KIDNEY DISEASE, STAGE 3 (MODERAT 07/15/2018 GONZALO YOUNG MDMED S Ot R80.9 PROTEINURIA, UNSPECIFIED 07/15/2018 HANNAH CASTILLO, LOR Ot D64.9 ANEMIA, UNSPECIFIED 07/15/2018 HANNAH CASTILLO, LOR Ot E10.9 TYPE 1 DIABETES MELLITUS WITHOUT COMPLIC 07/15/2018 HANNAH CASTILLO, LOR Ot I95.89 OTHER HYPOTENSION 07/15/2018 HANNAH CASTILLO, LOR Ot N18.3 CHRONIC KIDNEY DISEASE, STAGE 3 (MODERAT 07/15/2018 LOR YOUNG MD Ot R80.9 PROTEINURIA, UNSPECIFIED 07/15/2018 HANNAH CASTILLO, LOR Ot D64.9 ANEMIA, UNSPECIFIED 07/15/2018 HANNAH CASTILLO, LOR Ot 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 MICA MINER 07/15/2018 LOR YOUNG MD Ot I95.89 OTHER HYPOTENSION 07/15/2018 HANNAH CASTILLO, LOR Ot N18.3 CHRONIC KIDNEY DISEASE, STAGE 3 (MODERAT 07/15/2018 LOR YOUNG MD Ot R80.9 PROTEINURIA, UNSPECIFIED 07/15/2018 FACUNDO CASTILLO FACC, MELCHOR ALAN CCDS Ot R06.02 SHORTNESS OF BREATH 07/15/2018 FACUNDO CASTILLO FAC, MELCHOR FACP CCDS Ot R06.02 SHORTNESS OF BREATH 07/15/2018 LOR YOUNG MD Ot D64.9 ANEMIA, UNSPECIFIED 07/15/2018 LOR YOUNG MD Ot E10.9 TYPE 1 DIABETES MELLITUS WITHOUT COMPLIC 07/15/2018 HANNAH CASTILLO LOR Ot I95.89 OTHER HYPOTENSION 07/15/2018 LOR YOUNG MD Ot N18.3 CHRONIC KIDNEY DISEASE, STAGE 3 (MODERAT 07/15/2018 LOR YOUNG MD Ot R80.9 PROTEINURIA, UNSPECIFIED 07/15/2018 ALAYNA ZUÑIGA OD Ot E11 .9 TYPE 2 DIABETES MELLITUS WITHOUT COMPLIC 07/15/2018 LOR YOUNG MD Ot D64.9 ANEMIA, UNSPECIFIED 07/15/2018 KEVIN YOUNG MDINE Ot 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 MICA MINER 07/15/2018 LOR YOUNG MD Ot I95.1 ORTHOSTATIC HYPOTENSION 07/15/2018 LOR YOUNG MD Ot I95.89 OTHER HYPOTENSION 07/15/2018 LOR YOUNG MD Ot R80.9 PROTEINURIA, UNSPECIFIED 07/15/2018 LOR YOUNG MD Ot D64.9 ANEMIA, UNSPECIFIED 07/15/2018 LOR YOUNG MD Ot E10.9 TYPE 1 DIABETES MELLITUS WITHOUT COMPLIC 07/15/2018 LOR YOUNG MD Ot I95.1 ORTHOSTATIC HYPOTENSION 07/15/2018 LOR YOUNG MD Ot N18.3 CHRONIC KIDNEY DISEASE, STAGE 3 (MODERAT 07/15/2018 LOR YOUNG MD Ot R80.9 PROTEINURIA, UNSPECIFIED 07/15/2018 LOR YOUNG MD Ot D64.9 ANEMIA, UNSPECIFIED 07/15/2018 LOR YOUNG MD Ot E10.9 TYPE 1 DIABETES MELLITUS WITHOUT COMPLIC 07/15/2018 LOR YOUNG MD Ot E55.9 VITAMIN D DEFICIENCY, UNSPECIFIED 07/15/2018 HANNAH CASTILLO LOR Ot I95.1 ORTHOSTATIC HYPOTENSION 07/15/2018 HANNAH CASTILLO, LOR Ot I95.89 OTHER HYPOTENSION 07/15/2018 HANNAH CASTILLO, LOR Ot N18.3 CHRONIC KIDNEY DISEASE, STAGE 3 (MODERAT 07/15/2018 HANNAH CASTILLO, LOR Ot R80.9 PROTEINURIA, UNSPECIFIED 07/15/2018 REJI CASTILLO, ABEER W Ot E10.8 TYPE 1 DIABETES MELLITUS WITH UNSPECIFIE 07/15/2018 JAYSON CASTILLO, FADI M Ot D64.9 ANEMIA, UNSPECIFIED 07/15/2018 JAYSON CASTILLO, FADI M Ot 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 MICA MINER 07/15/2018 JAYSON CASTILLO, FADI M Ot E55.9 VITAMIN D DEFICIENCY, UNSPECIFIED 07/15/2018 JAYSON CASTILLO, FADI M Ot I95.1 ORTHOSTATIC HYPOTENSION 07/15/2018 JAYSON CASTILLO, GONZALOMED M Ot I95.89 OTHER HYPOTENSION 07/15/2018 JAYSON CASTILLO, FADI Dozier Ot N18.3 CHRONIC KIDNEY DISEASE, STAGE 3 (MODERAT 07/15/2018 JAYSON CASTILLO, GONZALOMED M Ot R80.9 PROTEINURIA, UNSPECIFIED 07/15/2018 COREY NGUYEN MD Ot D63. 1 ANEMIA IN CHRONIC KIDNEY DISEASE 07/15/2018 COREY NGUYEN MD Ot E10. 21 TYPE 1 DIABETES MELLITUS WITH DIABETIC N 07/15/2018 COREY NGUYEN MD Ot K58. 9 IRRITABLE BOWEL SYNDROME WITHOUT DIARRHE 07/15/2018 COREY NGUYEN MD Ot N18. 3 CHRONIC KIDNEY DISEASE, STAGE 3 (MODERAT 07/15/2018 COREY NGUYEN MD Ot Z79. 4 SPARE HAND (CURRENT) USE OF INSULIN 07/15/2018 COREY NGUYEN MD Ot Z79.899 OTHER SPARE HAND (CURRENT) DRUG THERAPY 07/15/2018 COREY NGUYEN MD, Ot Z87.891 PERSONAL HISTORY OF NICOTINE DEPENDENCE 07/17/2018 COREY NGUYEN MD, Ot D63. 1 ANEMIA IN CHRONIC KIDNEY DISEASE 07/17/2018 COREY NGUYEN MD Ot E10. 21 TYPE 1 DIABETES MELLITUS WITH DIABETIC N 07/17/2018 COREY NGUYEN MD Ot K58. 9 IRRITABLE BOWEL SYNDROME WITHOUT DIARRHE 07/17/2018 XUCOREY Anderson MD, Ot N18. 3 CHRONIC KIDNEY DISEASE, STAGE 3 (MODERAT 07/17/2018 COREY NGUYEN MD Ot Z79. 4 SPARE HAND (CURRENT) USE OF INSULIN 07/17/2018 COREY NGUYEN MD, Ot Z79.899 OTHER LONGTERM (CURRENT) DRUG THERAPY 07/17/2018 COREY NGUYEN MD, Ot Z87.891 PERSONAL HISTORY OF NICOTINE DEPENDENCE 08/05/2018 FACUNDO CASTILLO FACC, ALI FACP CCDS Ot 780.2 SYNCOPE AND COLLAPSE 08/05/2018 FACUNDO CASTILLO FACC, ALI FACP CCDS Ot 786.59 CHEST PAIN NEC 08/05/2018 FACUNDO CASTILLO FACC, ALI FACP CCDS Ot 780.2 SYNCOPE AND COLLAPSE 08/05/2018 FACUNDO CASTILLO FACC, ALI FACP CCDS Ot 786.59 CHEST PAIN NEC 08/05/2018 FACUNDO CASTILLO FACC, ALI FACP CCDS Ot 729.81 SWELLING OF LIMB 08/05/2018 CHEN MCCOY SOFTWARE QUALITY TESTER Ot 611.72 LUMP OR MASS IN BREAST 08/05/2018 LOR YOUNG MD Ot D64.9 ANEMIA, UNSPECIFIED 08/05/2018 HANNAH CASTILLO, LOR Ot 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 MICA MINER 08/05/2018 KEVIN YOUNG MDINE Ot I12.9 HYPERTENSIVE CHRONIC KIDNEY DISEASE W ST 08/05/2018 LOR YOUNG MD Ot N18.3 CHRONIC KIDNEY DISEASE, STAGE 3 (MODERAT 08/05/2018 LOR YOUNG MD Ot R80.9 PROTEINURIA, UNSPECIFIED 08/05/2018 HANNAH CASTILLO, LOR Ot D64.9 ANEMIA, UNSPECIFIED 08/05/2018 HANNAH CASTILLO, LOR Ot 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 MICA MINER 08/05/2018 LOR YOUNG MD Ot I12.9 HYPERTENSIVE CHRONIC KIDNEY DISEASE W ST 08/05/2018 LOR YOUNG MD Ot N18.3 CHRONIC KIDNEY DISEASE, STAGE 3 (MODERAT 08/05/2018 LOR YOUNG MD Ot R80.9 PROTEINURIA, UNSPECIFIED 08/05/2018 HANNAH CASTILLO, AHMED S Ot D64.9 ANEMIA, UNSPECIFIED 08/05/2018 HANNAH CASTILLO, FADI S Ot 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 MICA MINER 08/05/2018 HANNAH CASTILLO, AHMED S Ot I95.89 OTHER HYPOTENSION 08/05/2018 HANNAH CASTILLO, AHMED S Ot N18.3 CHRONIC KIDNEY DISEASE, STAGE 3 (MODERAT 08/05/2018 HANNAH CASTILLO, FADI S Ot R80.9 PROTEINURIA, UNSPECIFIED 08/05/2018 HANNAH CASTILLO, LOR Ot D64.9 ANEMIA, UNSPECIFIED 08/05/2018 HANNAH CASTILLO, LOR Ot E10.9 TYPE 1 DIABETES MELLITUS WITHOUT COMPLIC 08/05/2018 HANNAH CASTILLO, LOR Ot I95.89 OTHER HYPOTENSION 08/05/2018 HANNAH CASTILLO, LOR Ot N18.3 CHRONIC KIDNEY DISEASE, STAGE 3 (MODERAT 08/05/2018 LRO YOUNG MD Ot R80.9 PROTEINURIA, UNSPECIFIED 08/05/2018 HANNAH CASTILLO, LOR Ot D64.9 ANEMIA, UNSPECIFIED 08/05/2018 HANNAH CASTILLO, LOR Ot 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 MICA MINER 08/05/2018 HANNAH CASTILLO, LOR Ot I95.89 OTHER HYPOTENSION 08/05/2018 HANNAH CASTILLO, LOR Ot N18.3 CHRONIC KIDNEY DISEASE, STAGE 3 (MODERAT 08/05/2018 LOR YOUNG MD Ot R80.9 PROTEINURIA, UNSPECIFIED 08/05/2018 FACUNDO CASTILLO FACC, ALI FACP CCDS Ot R06.02 SHORTNESS OF BREATH 08/05/2018 FACUNDO CASTILLO FACC, ALI FACP CCDS Ot R06.02 SHORTNESS OF BREATH 08/05/2018 LOR YOUNG MD Ot D64.9 ANEMIA, UNSPECIFIED 08/05/2018 HANNAH CASTILLO, LOR Ot E10.9 TYPE 1 DIABETES MELLITUS WITHOUT COMPLIC 08/05/2018 HANNAH CASTILLO, LOR Ot I95.89 OTHER HYPOTENSION 08/05/2018 HANNAH CASTILLO, LOR Ot N18.3 CHRONIC KIDNEY DISEASE, STAGE 3 (MODERAT 08/05/2018 LOR YOUNG MD Ot R80.9 PROTEINURIA, UNSPECIFIED 08/05/2018 ALAYNA ZUÑIGA OD Ot E11 .9 TYPE 2 DIABETES MELLITUS WITHOUT COMPLIC 08/05/2018 LOR YOUNG MD Ot D64.9 ANEMIA, UNSPECIFIED 08/05/2018 HANNAH CASTILLO, LOR Ot 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 MICA MINER 08/05/2018 LOR YOUNG MD Ot I95.1 ORTHOSTATIC HYPOTENSION 08/05/2018 KEVIN YOUNG MDINE Ot I95.89 OTHER HYPOTENSION 08/05/2018 LOR YOUNG MD Ot R80.9 PROTEINURIA, UNSPECIFIED 08/05/2018 LOR YOUNG MD Ot D64.9 ANEMIA, UNSPECIFIED 08/05/2018 LOR YOUNG MD Ot E10.9 TYPE 1 DIABETES MELLITUS WITHOUT COMPLIC 08/05/2018 LOR YOUNG MD Ot I95.1 ORTHOSTATIC HYPOTENSION 08/05/2018 LOR YOUNG MD Ot N18.3 CHRONIC KIDNEY DISEASE, STAGE 3 (MODERAT 08/05/2018 LOR YOUNG MD Ot R80.9 PROTEINURIA, UNSPECIFIED 08/05/2018 LOR YOUNG MD Ot D64.9 ANEMIA, UNSPECIFIED 08/05/2018 HANNAH CASTILLO, LOR Ot E10.9 TYPE 1 DIABETES MELLITUS WITHOUT COMPLIC 08/05/2018 LOR YOUNG MD Ot E55.9 VITAMIN D DEFICIENCY, UNSPECIFIED 08/05/2018 LOR YOUNG MD Ot I95.1 ORTHOSTATIC HYPOTENSION 08/05/2018 KEVIN YOUNG MDINE Ot I95.89 OTHER HYPOTENSION 08/05/2018 LOR YOUNG MD Ot N18.3 CHRONIC KIDNEY DISEASE, STAGE 3 (MODERAT 08/05/2018 LOR YOUNG MD Ot R80.9 PROTEINURIA, UNSPECIFIED 08/05/2018 REJI CASTILLO, DARNELL W Ot E10.8 TYPE 1 DIABETES MELLITUS WITH UNSPECIFIE 08/05/2018 FADI TYLER MD Ot D64.9 ANEMIA, UNSPECIFIED 08/05/2018 FADI TYLER MD Ot 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 MICA MINER 08/05/2018 JAYSON CASTILLO, FADI Dozier Ot E55.9 VITAMIN D DEFICIENCY, UNSPECIFIED 08/05/2018 JAYSON CASTILLO, FADI Dozier Ot I95.1 ORTHOSTATIC HYPOTENSION 08/05/2018 JAYSON CASTILLO, FADI Dozier Ot I95.89 OTHER HYPOTENSION 08/05/2018 JAYSON CASTILLO, FADI Dozier Ot N18.3 CHRONIC KIDNEY DISEASE, STAGE 3 (MODERAT 08/05/2018 JAYSON CASTILLO, FADI Dozier Ot R80.9 PROTEINURIA, UNSPECIFIED 08/05/2018 COREY NGUYEN MD Ot D63. 1 ANEMIA IN CHRONIC KIDNEY DISEASE 08/05/2018 COREY NGUYEN MD Ot E10. 21 TYPE 1 DIABETES MELLITUS WITH DIABETIC N 08/05/2018 COREY NGUYEN MD Ot K58. 9 IRRITABLE BOWEL SYNDROME WITHOUT DIARRHE 08/05/2018 COREY NGUYEN MD Ot N18. 3 CHRONIC KIDNEY DISEASE, STAGE 3 (MODERAT 08/05/2018 COREY NGUYEN MD Ot Z79. 4 LONGTERM (CURRENT) USE OF INSULIN 08/05/2018 COREY NGUYEN MD Ot Z79.899 OTHER SPARE HAND (CURRENT) DRUG THERAPY 08/05/2018 COREY NGUYEN MD, Ot Z87.891 PERSONAL HISTORY OF NICOTINE DEPENDENCE 08/05/2018 LOR YOUNG MD Ot N18.3 CHRONIC KIDNEY DISEASE, STAGE 3 (MODERAT 08/05/2018 LOR YOUNG MD Ot N18.3 CHRONIC KIDNEY DISEASE, STAGE 3 (MODERAT 08/06/2018 HANNAH CASTILLO, LOR Ot 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 MICA MINER 08/06/2018 LOR YOUNG MD Ot E55.9 VITAMIN D DEFICIENCY, UNSPECIFIED 08/06/2018 LOR YOUNG MD Ot I95.1 ORTHOSTATIC HYPOTENSION 08/06/2018 HANNAH CASTILLO, LOR Ot I95.89 OTHER HYPOTENSION 08/06/2018 LOR YOUNG MD Ot N18.3 CHRONIC KIDNEY DISEASE, STAGE 3 (MODERAT 08/06/2018 HANNAH CASTILLO, LOR Ot R80.9 PROTEINURIA, UNSPECIFIED 08/13/2018 LOR YOUNG MD Ot 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 MICA MINER 08/13/2018 LOR YOUNG MD Ot E55.9 VITAMIN D DEFICIENCY, UNSPECIFIED 08/13/2018 HANNAH CASTILLO, LOR Ot I95.1 ORTHOSTATIC HYPOTENSION 08/13/2018 HANNAH CASTILLO, LOR Ot I95.89 OTHER HYPOTENSION 08/13/2018 HANNAH CASTILLO, LOR Ot N18.3 CHRONIC KIDNEY DISEASE, STAGE 3 (MODERAT 08/13/2018 HANNAH CASTILLO, LOR Ot R80.9 PROTEINURIA, UNSPECIFIED 08/26/2018 COREY NGUYEN MD Ot D63. 1 ANEMIA IN CHRONIC KIDNEY DISEASE 08/26/2018 COREY NGUYEN MD Ot E10. 21 TYPE 1 DIABETES MELLITUS WITH DIABETIC N 08/26/2018 COREY NGUYEN MD Ot K58. 9 IRRITABLE BOWEL SYNDROME WITHOUT DIARRHE 08/26/2018 COREY NGUYEN MD Ot N18. 3 CHRONIC KIDNEY DISEASE, STAGE 3 (MODERAT 08/26/2018 COREY NGUYEN MD Ot Z79. 4 LONGTERM (CURRENT) USE OF INSULIN 08/26/2018 COREY NGUYEN MD Ot Z79.899 OTHER SPARE HAND (CURRENT) DRUG THERAPY 08/26/2018 COREY NGUYEN MD Ot Z87.891 PERSONAL HISTORY OF NICOTINE DEPENDENCE 08/28/2018 COREY NGUYEN MD Ot D63. 1 ANEMIA IN CHRONIC KIDNEY DISEASE 08/28/2018 COREY NGUYEN MD Ot E10. 21 TYPE 1 DIABETES MELLITUS WITH DIABETIC N 08/28/2018 COREY NGUYEN MD Ot K58. 9 IRRITABLE BOWEL SYNDROME WITHOUT DIARRHE 08/28/2018 COREY NGUYEN MD Ot N18. 3 CHRONIC KIDNEY DISEASE, STAGE 3 (MODERAT 08/28/2018 COREY NGUYEN MD Ot Z79. 4 SPARE HAND (CURRENT) USE OF INSULIN 08/28/2018 COREY NGUYEN MD Ot Z79.899 OTHER LONGTERM (CURRENT) DRUG THERAPY 08/28/2018 COREY NGUYEN MD Ot Z87.891 PERSONAL HISTORY OF NICOTINE DEPENDENCE 09/05/2018 KEVIN YOUNG MDINE Ot 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 MICA MINER 09/05/2018 LOR YOUNG MD Ot E55.9 VITAMIN D DEFICIENCY, UNSPECIFIED 09/05/2018 LOR YOUNG MD Ot I95.1 ORTHOSTATIC HYPOTENSION 09/05/2018 KEVIN YOUNG MDINE Ot I95.89 OTHER HYPOTENSION 09/05/2018 LOR YOUNG MD Ot N18.3 CHRONIC KIDNEY DISEASE, STAGE 3 (MODERAT 09/05/2018 LOR YOUNG MD Ot R80.9 PROTEINURIA, UNSPECIFIED 10/09/2018 REJI CSATILLO, DARNELL W Ot E10.65 TYPE 1 DIABETES MELLITUS WITH HYPERGLYCE 10/31/2018 LOR YOUNG MD Ot D64.9 ANEMIA, UNSPECIFIED 10/31/2018 LOR YOUNG MD Ot E10.9 TYPE 1 DIABETES MELLITUS WITHOUT COMPLIC 10/31/2018 LOR YOUNG MD Ot E55.9 VITAMIN D DEFICIENCY, UNSPECIFIED 10/31/2018 KEVIN YOUNG MDINE Ot I95.1 ORTHOSTATIC HYPOTENSION 10/31/2018 LOR YOUNG MD Ot I95.89 OTHER HYPOTENSION 10/31/2018 LOR YOUNG MD Ot N18.3 CHRONIC KIDNEY DISEASE, STAGE 3 (MODERAT 10/31/2018 LOR YOUNG MD Ot N39.0 URINARY TRACT INFECTION, SITE NOT SPECIF 10/31/2018 LOR YOUNG MD Ot R80.9 PROTEINURIA, UNSPECIFIED 11/07/2018 PRECIOUS OLMEDO L FINISHING LAB TECHNICIAN Ot I73.9 PERIPHERAL VASCULAR DISEASE, UNSPECIFIED 11/10/2018 PRECIOUS OLMEDO L FINISHING LAB TECHNICIAN Ot I73.9 PERIPHERAL VASCULAR DISEASE, UNSPECIFIED 11/10/2018 PRECIOUS OLMEDO L FINISHING LAB TECHNICIAN Ot M79.89 OTHER SPECIFIED SOFT TISSUE DISORDERS 11/14/2018 REJI CASTILLO, DARNELL W Ot E10.65 TYPE 1 DIABETES MELLITUS WITH HYPERGLYCE 11/15/2018 RYLIE OLMEDOHER L FINISHING LAB TECHNICIAN Ot E10.9 TYPE 1 DIABETES MELLITUS WITHOUT COMPLIC 11/15/2018 PRECIOUS OLMEDO L FINISHING LAB TECHNICIAN Ot I73.9 PERIPHERAL VASCULAR DISEASE, UNSPECIFIED 11/15/2018 PRECIOUS OLMEDO L FINISHING LAB TECHNICIAN Ot I95.1 ORTHOSTATIC HYPOTENSION 11/15/2018 PRECIOUS OLMEDO FINISHING LAB TECHNICIAN Ot M79.89 OTHER SPECIFIED SOFT TISSUE DISORDERS 11/22/2018 LOR YOUNG MD Ot D64.9 ANEMIA, UNSPECIFIED 11/22/2018 LOR YOUNG MD Ot E10.9 TYPE 1 DIABETES MELLITUS WITHOUT COMPLIC 11/22/2018 LOR YOUNG MD Ot E55.9 VITAMIN D DEFICIENCY, UNSPECIFIED 11/22/2018 LOR YOUNG MD Ot I95.1 ORTHOSTATIC HYPOTENSION 11/22/2018 LOR YOUNG MD Ot I95.89 OTHER HYPOTENSION 11/22/2018 LOR YOUNG MD Ot N18.3 CHRONIC KIDNEY DISEASE, STAGE 3 (MODERAT 11/22/2018 LOR YOUNG MD Ot N39.0 URINARY TRACT INFECTION, SITE NOT SPECIF 11/22/2018 LOR YOUNG MD Ot R80.9 PROTEINURIA, UNSPECIFIED 11/24/2018 COREY NGUYEN MD, Ot D63. 1 ANEMIA IN CHRONIC KIDNEY DISEASE 11/24/2018 COREY NGUYEN MD Ot E10. 21 TYPE 1 DIABETES MELLITUS WITH DIABETIC N 11/24/2018 COREY NGUYEN MD Ot K58. 9 IRRITABLE BOWEL SYNDROME WITHOUT DIARRHE 11/24/2018 COREY NGUYEN MD, Ot N18. 3 CHRONIC KIDNEY DISEASE, STAGE 3 (MODERAT 11/24/2018 COREY NGUYEN MD, Ot Z79. 4 LONGTERM (CURRENT) USE OF INSULIN 11/24/2018 COREY NGUYEN MD Ot Z79.899 OTHER SPARE HAND (CURRENT) DRUG THERAPY 11/24/2018 COREY NGUYEN MD, Ot Z87.891 PERSONAL HISTORY OF NICOTINE DEPENDENCE 11/26/2018 COREY NGUYEN MD, Ot D63. 1 ANEMIA IN CHRONIC KIDNEY DISEASE 11/26/2018 COREY NGUYEN MD Ot E10. 21 TYPE 1 DIABETES MELLITUS WITH DIABETIC N 11/26/2018 COREY NGUYEN MD Ot K58. 9 IRRITABLE BOWEL SYNDROME WITHOUT DIARRHE 11/26/2018 COREY NGUYEN MD Ot N18. 3 CHRONIC KIDNEY DISEASE, STAGE 3 (MODERAT 11/26/2018 COREY NGUYEN MD, Ot Z79. 4 SPARE HAND (CURRENT) USE OF INSULIN 11/26/2018 COREY NGUYEN MD Ot Z79.899 OTHER LONGTERM (CURRENT) DRUG THERAPY 11/26/2018 COREY NGUYEN MD Ot Z87.891 PERSONAL HISTORY OF NICOTINE DEPENDENCE 11/27/2018 COREY NGUYEN MD Ot D63. 1 ANEMIA IN CHRONIC KIDNEY DISEASE 11/27/2018 COREY NGUYEN MD Ot E10. 21 TYPE 1 DIABETES MELLITUS WITH DIABETIC N 11/27/2018 COREY NGUYEN MD Ot K58. 9 IRRITABLE BOWEL SYNDROME WITHOUT DIARRHE 11/27/2018 COREY NGUYEN MD Ot N18. 3 CHRONIC KIDNEY DISEASE, STAGE 3 (MODERAT 11/27/2018 COREY NGUYEN MD, Ot Z79. 4 LONGTERM (CURRENT) USE OF INSULIN 11/27/2018 COREY NGUYEN MD Ot Z79.899 OTHER LONGTERM (CURRENT) DRUG THERAPY 11/27/2018 COREY NGUYEN MD Ot Z87.891 PERSONAL HISTORY OF NICOTINE DEPENDENCE 11/27/2018 COREY NGUYEN MD Ot D63. 1 ANEMIA IN CHRONIC KIDNEY DISEASE 11/27/2018 COREY NGUYEN MD Ot E10. 21 TYPE 1 DIABETES MELLITUS WITH DIABETIC N 11/27/2018 COREY NGUYEN MD Ot K58. 9 IRRITABLE BOWEL SYNDROME WITHOUT DIARRHE 11/27/2018 COREY NGUYEN MD Ot N18. 3 CHRONIC KIDNEY DISEASE, STAGE 3 (MODERAT 11/27/2018 COREY NGUYEN MD Ot Z79. 4 SPARE HAND (CURRENT) USE OF INSULIN 11/27/2018 COREY NGUYEN MD Ot Z79.899 OTHER SPARE HAND (CURRENT) DRUG THERAPY 11/27/2018 COREY NGUYEN MD Ot Z87.891 PERSONAL HISTORY OF NICOTINE DEPENDENCE 11/28/2018 LOR YOUNG MD Ot D64.9 ANEMIA, UNSPECIFIED 11/28/2018 LOR YOUNG MD Ot E10.9 TYPE 1 DIABETES MELLITUS WITHOUT COMPLIC 11/28/2018 LOR YOUNG MD Ot E55.9 VITAMIN D DEFICIENCY, UNSPECIFIED 11/28/2018 HANNAH CASTILLO, LOR Ot I95.1 ORTHOSTATIC HYPOTENSION 11/28/2018 LOR YOUNG MD Ot I95.89 OTHER HYPOTENSION 11/28/2018 LOR YOUNG MD Ot N18.3 CHRONIC KIDNEY DISEASE, STAGE 3 (MODERAT 11/28/2018 LOR YOUNG MD Ot N39.0 URINARY TRACT INFECTION, SITE NOT SPECIF 11/28/2018 LOR YOUNG MD Ot R80.9 PROTEINURIA, UNSPECIFIED 12/03/2018 BAIMA PRECIOUS L FINISHING LAB TECHNICIAN Ot E10.9 TYPE 1 DIABETES MELLITUS WITHOUT COMPLIC 12/03/2018 BAIMA, PRECIOUS L FINISHING LAB TECHNICIAN Ot I73.9 PERIPHERAL VASCULAR DISEASE, UNSPECIFIED 12/03/2018 BAIMA, PRECIOUS L FINISHING LAB TECHNICIAN Ot I95.1 ORTHOSTATIC HYPOTENSION 12/03/2018 BAIMA, PRECIOUS L FINISHING LAB TECHNICIAN Ot M79.89 OTHER SPECIFIED SOFT TISSUE DISORDERS 12/12/2018 BAIMA PRECIOUS L FINISHING LAB TECHNICIAN Ot E10.9 TYPE 1 DIABETES MELLITUS WITHOUT COMPLIC 12/12/2018 BAIMA PRECIOUS L FINISHING LAB TECHNICIAN Ot I73.9 PERIPHERAL VASCULAR DISEASE, UNSPECIFIED 12/12/2018 BAIMA PRECIOUS L FINISHING LAB TECHNICIAN Ot I95.1 ORTHOSTATIC HYPOTENSION 12/12/2018 BAIMA, PRECIOUS L FINISHING LAB TECHNICIAN Ot M79.89 OTHER SPECIFIED SOFT TISSUE DISORDERS 12/19/2018 ALAN CARABALLO Ot K58.0 IRRITABLE BOWEL SYNDROME WITH DIARRHEA 01/08/2019 LOR YOUNG MD Ot D64.9 ANEMIA, UNSPECIFIED 01/08/2019 LOR YOUNG MD Ot 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 MICA MINER 01/08/2019 LOR YOUNG MD Ot E55.9 VITAMIN D DEFICIENCY, UNSPECIFIED 01/08/2019 LOR YOUNG MD Ot I95.1 ORTHOSTATIC HYPOTENSION 01/08/2019 LOR YOUNG MD Ot I95.89 OTHER HYPOTENSION 01/08/2019 LOR YOUNG MD Ot N18.3 CHRONIC KIDNEY DISEASE, STAGE 3 (MODERAT 01/08/2019 LOR YOUNG MD Ot N39.0 URINARY TRACT INFECTION, SITE NOT SPECIF 01/08/2019 LOR YOUNG MD Ot R80.9 PROTEINURIA, UNSPECIFIED 01/08/2019 ALAN CARABALLO FINISHING LAB TECHNICIAN Ot K58.0 IRRITABLE BOWEL SYNDROME WITH DIARRHEA 01/18/2019 DELMAN DO, MIKIE B Ot R10.1 3 EPIGASTRIC PAIN 01/18/2019 DELMAN DO, MIKIE B Ot R11.0 NAUSEA 01/18/2019 DELMAN DO, MIKIE B Ot R19.7 DIARRHEA, UNSPECIFIED 01/19/2019 ALAN CARABALLO FINISHING LAB TECHNICIAN Ot M25.511 PAIN IN RIGHT SHOULDER 01/19/2019 ALAN CARABALLO FINISHING LAB TECHNICIAN Ot M25.511 PAIN IN RIGHT SHOULDER 01/22/2019 HANNAH CASTILLO, FADI S Ot D64.9 ANEMIA, UNSPECIFIED 01/22/2019 HANNAH CASTILLO, AHMED S Ot 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 MICA MINER 01/22/2019 HANNAH CASTILLO, AHMED S Ot E55.9 VITAMIN D DEFICIENCY, UNSPECIFIED 01/22/2019 HANNAH CASTILLO, GONZALOMED S Ot I95.1 ORTHOSTATIC HYPOTENSION 01/22/2019 HANNAH CASTILLO, AHMED S Ot I95.89 OTHER HYPOTENSION 01/22/2019 HANNAH CASTILLO, AHMED S Ot N18.3 CHRONIC KIDNEY DISEASE, STAGE 3 (MODERAT 01/22/2019 HANNAH CASTILLO, AHMED S Ot N39.0 URINARY TRACT INFECTION, SITE NOT SPECIF 01/22/2019 HANNAH CASTILLO, AHMED S Ot R80.9 PROTEINURIA, UNSPECIFIED 01/23/2019 LUI GARCIA MD Ot E11. 9 TYPE 2 DIABETES MELLITUS WITHOUT COMPLIC 01/23/2019 LUI GARCIA MD Ot F32. 9 MAJOR DEPRESSIVE DISORDER, SINGLE EPISOD 01/23/2019 LUI GARCIA MD Ot I10 ESSENTIAL (PRIMARY) HYPERTENSION 01/23/2019 LUI GARCIA MD Ot I16. 0 HYPERTENSIVE URGENCY 01/23/2019 LUI GARCIA MD Ot K58. 9 IRRITABLE BOWEL SYNDROME WITHOUT DIARRHE 01/23/2019 LUI GARCIA MD Ot Z79. 51 LONGTERM (CURRENT) USE OF INHALED STERO 01/23/2019 LUI GARCIA MD Ot Z87.448 PERSONAL HISTORY OF OTHER DISEASES OF UR 01/23/2019 LUI GARCIA MD Ot Z88. 8 ALLERGY STATUS TO OTH DRUG/MEDS/BIOL SUB 01/23/2019 LUI GARCIA MD Ot Z98. 51 TUBAL LIGATION STATUS 01/27/2019 LUI GARCIA MD Ot E11. 9 TYPE 2 DIABETES MELLITUS WITHOUT COMPLIC 01/27/2019 LUI GARCIA MD Ot F32. 9 MAJOR DEPRESSIVE DISORDER, SINGLE EPISOD 01/27/2019 LUI GARCIA MD Ot I10 ESSENTIAL (PRIMARY) HYPERTENSION 01/27/2019 LUI GARCIA MD Ot I16. 0 HYPERTENSIVE URGENCY 01/27/2019 LUI GARCIA MD Ot K58. 9 IRRITABLE BOWEL SYNDROME WITHOUT DIARRHE 01/27/2019 LUI GARCIA MD Ot Z79. 51 SPARE HAND (CURRENT) USE OF INHALED STERO 01/27/2019 LUI GARCIA MD Ot Z87.448 PERSONAL HISTORY OF OTHER DISEASES OF UR 01/27/2019 LUI GARCIA MD Ot Z88. 8 ALLERGY STATUS TO OTH DRUG/MEDS/BIOL SUB 01/27/2019 LUI GARCIA MD Ot Z98. 51 TUBAL LIGATION STATUS 01/27/2019 LOR YOUNG MD Ot D64.9 ANEMIA, UNSPECIFIED 01/27/2019 LOR YOUNG MD Ot 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 MICA MINER 01/27/2019 LOR YOUNG MD Ot E55.9 VITAMIN D DEFICIENCY, UNSPECIFIED 01/27/2019 LOR YOUNG MD Ot I95.1 ORTHOSTATIC HYPOTENSION 01/27/2019 LOR YOUNG MD Ot I95.89 OTHER HYPOTENSION 01/27/2019 LOR YOUNG MD Ot N18.3 CHRONIC KIDNEY DISEASE, STAGE 3 (MODERAT 01/27/2019 LOR YOUNG MD Ot N39.0 URINARY TRACT INFECTION, SITE NOT SPECIF 01/27/2019 LOR YOUNG MD Ot R80.9 PROTEINURIA, UNSPECIFIED 02/06/2019 LOR YOUNG MD Ot D64.9 ANEMIA, UNSPECIFIED 02/06/2019 LOR YOUNG MD Ot 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 MICA MINER 02/06/2019 LOR YOUNG MD Ot E55.9 VITAMIN D DEFICIENCY, UNSPECIFIED 02/06/2019 LOR YOUNG MD Ot I95.1 ORTHOSTATIC HYPOTENSION 02/06/2019 LOR YOUNG MD Ot I95.89 OTHER HYPOTENSION 02/06/2019 LOR YOUNG MD Ot N18.3 CHRONIC KIDNEY DISEASE, STAGE 3 (MODERAT 02/06/2019 LOR YOUNG MD Ot N39.0 URINARY TRACT INFECTION, SITE NOT SPECIF 02/06/2019 LOR YOUNG MD Ot R80.9 PROTEINURIA, UNSPECIFIED 02/09/2019 DELMAN DO, MIKIE B Ot R10.1 3 EPIGASTRIC PAIN 02/09/2019 DELMAN DO, MIKIE B Ot R11.0 NAUSEA 02/09/2019 DELMAN DO, MIKIE B Ot R19.7 DIARRHEA, UNSPECIFIED 02/10/2019 DELMAN DO, MIKIE B Ot Z01.8 18 ENCOUNTER FOR OTHER PREPROCEDURAL EXAMIN 02/16/2019 FADI YOUNG MD Ot D64.9 ANEMIA, UNSPECIFIED 02/16/2019 FADI YOUNG MD S Ot 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 MICA MINER 02/16/2019 FADI YOUNG MD Ot E55.9 VITAMIN D DEFICIENCY, UNSPECIFIED 02/16/2019 FADI YOUNG MD S Ot I95.1 ORTHOSTATIC HYPOTENSION 02/16/2019 FADI YOUNG MD S Ot I95.89 OTHER HYPOTENSION 02/16/2019 FADI YOUNG MD S Ot N18.3 CHRONIC KIDNEY DISEASE, STAGE 3 (MODERAT 02/16/2019 FADI YOUNG MD S Ot N39.0 URINARY TRACT INFECTION, SITE NOT SPECIF 02/16/2019 FADI YOUNG MD Ot R80.9 PROTEINURIA, UNSPECIFIED 02/20/2019 FADI YOUNG MD S Ot D64.9 ANEMIA, UNSPECIFIED 02/20/2019 FADI YOUNG MD S Ot 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 MICA MINER 02/20/2019 FADI YOUNG MD S Ot E55.9 VITAMIN D DEFICIENCY, UNSPECIFIED 02/20/2019 HANNAH CASTILLO, FADI S Ot I95.1 ORTHOSTATIC HYPOTENSION 02/20/2019 HANNAH CASTILLO, FADI S Ot I95.89 OTHER HYPOTENSION 02/20/2019 HANNAH CASTILLO, FADI S Ot N18.3 CHRONIC KIDNEY DISEASE, STAGE 3 (MODERAT 02/20/2019 HANNAH CASTILLO, FADI S Ot N39.0 URINARY TRACT INFECTION, SITE NOT SPECIF 02/20/2019 HANNAH CASTILLO, FADI S Ot R80.9 PROTEINURIA, UNSPECIFIED 02/24/2019 COREY NGUYEN MD, Ot D63. 1 ANEMIA IN CHRONIC KIDNEY DISEASE 02/24/2019 COREY NGUYEN MD Ot E10. 21 TYPE 1 DIABETES MELLITUS WITH DIABETIC N 02/24/2019 COREY NGUYEN MD, Ot K58. 9 IRRITABLE BOWEL SYNDROME WITHOUT DIARRHE 02/24/2019 COREY NGUYEN MD Ot N18. 3 CHRONIC KIDNEY DISEASE, STAGE 3 (MODERAT 02/24/2019 COREY NGUYEN MD Ot Z79. 4 SPARE HAND (CURRENT) USE OF INSULIN 02/24/2019 COREY NGUYEN MD Ot Z79.899 OTHER LONGTERM (CURRENT) DRUG THERAPY 02/24/2019 COREY NGUYEN MD Ot Z87.891 PERSONAL HISTORY OF NICOTINE DEPENDENCE 02/25/2019 COREY NGUYEN MD Ot D63. 1 ANEMIA IN CHRONIC KIDNEY DISEASE 02/25/2019 COREY NGUYEN MD Ot E10. 21 TYPE 1 DIABETES MELLITUS WITH DIABETIC N 02/25/2019 COREY NGUYEN MD Ot K58. 9 IRRITABLE BOWEL SYNDROME WITHOUT DIARRHE 02/25/2019 COREY NGUYEN MD Ot N18. 3 CHRONIC KIDNEY DISEASE, STAGE 3 (MODERAT 02/25/2019 COREY NGUYEN MD Ot Z79. 4 LONGTERM (CURRENT) USE OF INSULIN 02/25/2019 COREY NGUYEN MD Ot Z79.899 OTHER LONGTERM (CURRENT) DRUG THERAPY 02/25/2019 COREY NGUYEN MD Ot Z87.891 PERSONAL HISTORY OF NICOTINE DEPENDENCE 03/02/2019 COREY NGUYEN MD Ot D63. 1 ANEMIA IN CHRONIC KIDNEY DISEASE 03/02/2019 COREY NGUYEN MD Ot E10. 21 TYPE 1 DIABETES MELLITUS WITH DIABETIC N 03/02/2019 COREY NGUYEN MD Ot K58. 9 IRRITABLE BOWEL SYNDROME WITHOUT DIARRHE 03/02/2019 COREY NGUYEN MD Ot N18. 3 CHRONIC KIDNEY DISEASE, STAGE 3 (MODERAT 03/02/2019 COREY NGUYEN MD Ot Z79. 4 LONGTERM (CURRENT) USE OF INSULIN 03/02/2019 COREY NGUYEN MD Ot Z79.899 OTHER LONGTERM (CURRENT) DRUG THERAPY 03/02/2019 COREY NGUYEN MD, Ot Z87.891 PERSONAL HISTORY OF NICOTINE DEPENDENCE 05/05/2019 LOR YOUNG MD Ot D64.9 ANEMIA, UNSPECIFIED 05/05/2019 LOR YOUNG MD Ot E10.9 TYPE 1 DIABETES MELLITUS WITHOUT COMPLIC 05/05/2019 LOR YOUNG MD Ot E55.9 VITAMIN D DEFICIENCY, UNSPECIFIED 05/05/2019 HANNAH CASTILLO LOR Ot I95.1 ORTHOSTATIC HYPOTENSION 05/05/2019 HANNAH CASTILLO LOR Ot I95.89 OTHER HYPOTENSION 05/05/2019 LOR YOUNG MD Ot N18.3 CHRONIC KIDNEY DISEASE, STAGE 3 (MODERAT 05/05/2019 HANNAH CASTILLO LOR Ot N39.0 URINARY TRACT INFECTION, SITE NOT SPECIF 05/05/2019 LOR YONUG MD Ot R80.9 PROTEINURIA, UNSPECIFIED 05/07/2019 LOR YOUNG MD Ot D64.9 ANEMIA, UNSPECIFIED 05/07/2019 LOR YOUNG MD Ot E10.9 TYPE 1 DIABETES MELLITUS WITHOUT COMPLIC 05/07/2019 KEVIN YOUNG MDINE Ot E55.9 VITAMIN D DEFICIENCY, UNSPECIFIED 05/07/2019 HANNAH CASTILLO LOR Ot I95.1 ORTHOSTATIC HYPOTENSION 05/07/2019 HANNAH CASTILLO LOR Ot I95.89 OTHER HYPOTENSION 05/07/2019 LOR YOUNG MD Ot N18.3 CHRONIC KIDNEY DISEASE, STAGE 3 (MODERAT 05/07/2019 KEVIN YOUNG MDINE Ot N39.0 URINARY TRACT INFECTION, SITE NOT SPECIF 05/07/2019 LOR YOUNG MD Ot R80.9 PROTEINURIA, UNSPECIFIED 05/21/2019 LOR YOUNG MD Ot D64.9 ANEMIA, UNSPECIFIED 05/21/2019 LOR YOUNG MD Ot E10.9 TYPE 1 DIABETES MELLITUS WITHOUT COMPLIC 05/21/2019 LOR YOUNG MD Ot E55.9 VITAMIN D DEFICIENCY, UNSPECIFIED 05/21/2019 LOR YOUNG MD Ot I95.1 ORTHOSTATIC HYPOTENSION 05/21/2019 LOR YOUNG MD Ot I95.89 OTHER HYPOTENSION 05/21/2019 LOR YOUNG MD Ot N18.3 CHRONIC KIDNEY DISEASE, STAGE 3 (MODERAT 05/21/2019 LOR YOUNG MD Ot N39.0 URINARY TRACT INFECTION, SITE NOT SPECIF 05/21/2019 LOR YOUNG MD Ot R80.9 PROTEINURIA, UNSPECIFIED 05/22/2019 CHEN MCCOY APRN Ot 611.72 LUMP OR MASS IN BREAST 05/22/2019 LOR YOUNG MD Ot D64.9 ANEMIA, UNSPECIFIED 05/22/2019 LOR YOUNG MD Ot 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 MICA MINER 05/22/2019 LOR YOUNG MD Ot I12.9 HYPERTENSIVE CHRONIC KIDNEY DISEASE W ST 05/22/2019 LOR YOUNG MD Ot N18.3 CHRONIC KIDNEY DISEASE, STAGE 3 (MODERAT 05/22/2019 LOR YOUNG MD Ot R80.9 PROTEINURIA, UNSPECIFIED 05/22/2019 LOR YOUNG MD Ot D64.9 ANEMIA, UNSPECIFIED 05/22/2019 LOR YOUNG MD Ot 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 MICA MINER 05/22/2019 LOR YOUNG MD Ot I12.9 HYPERTENSIVE CHRONIC KIDNEY DISEASE W ST 05/22/2019 LOR YOUNG MD Ot N18.3 CHRONIC KIDNEY DISEASE, STAGE 3 (MODERAT 05/22/2019 LOR YOUNG MD Ot R80.9 PROTEINURIA, UNSPECIFIED 05/22/2019 HANNAH CASTILLO, FADI S Ot D64.9 ANEMIA, UNSPECIFIED 05/22/2019 HANNAH CASTILLO, GONZALOMED S Ot 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 MICA MINER 05/22/2019 HANNAH CASTILLO, GONZALOMED S Ot I95.89 OTHER HYPOTENSION 05/22/2019 HANNAH CASTILLO, GONZALOMED S Ot N18.3 CHRONIC KIDNEY DISEASE, STAGE 3 (MODERAT 05/22/2019 HANNAH CASTILLO, FADI S Ot R80.9 PROTEINURIA, UNSPECIFIED 05/22/2019 HANNAH CASTILLO, LOR Ot D64.9 ANEMIA, UNSPECIFIED 05/22/2019 HANNAH CASTILLO, LOR Ot E10.9 TYPE 1 DIABETES MELLITUS WITHOUT COMPLIC 05/22/2019 KEVIN YOUNG MDINE Ot I95.89 OTHER HYPOTENSION 05/22/2019 LOR YOUNG MD Ot N18.3 CHRONIC KIDNEY DISEASE, STAGE 3 (MODERAT 05/22/2019 LOR YOUNG MD Ot R80.9 PROTEINURIA, UNSPECIFIED 05/22/2019 HANNAH CASTILLO, LOR Ot D64.9 ANEMIA, UNSPECIFIED 05/22/2019 HANNAH CASTILLO, LOR Ot 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 MICA MINER 05/22/2019 LOR YOUNG MD Ot I95.89 OTHER HYPOTENSION 05/22/2019 LOR YOUNG MD Ot N18.3 CHRONIC KIDNEY DISEASE, STAGE 3 (MODERAT 05/22/2019 LOR YOUNG MD Ot R80.9 PROTEINURIA, UNSPECIFIED 05/22/2019 FACUNDO CASTILLO FACC, ALI FACP CCDS Ot R06.02 SHORTNESS OF BREATH 05/22/2019 FACUNDO CASTILLO FACC, ALI FACP CCDS Ot R06.02 SHORTNESS OF BREATH 05/22/2019 LOR YOUNG MD Ot D64.9 ANEMIA, UNSPECIFIED 05/22/2019 HANNAH CASTILLO, LOR Ot E10.9 TYPE 1 DIABETES MELLITUS WITHOUT COMPLIC 05/22/2019 HANNAH CASTILLO LOR Ot I95.89 OTHER HYPOTENSION 05/22/2019 KEVIN YOUNG MDINE Ot N18.3 CHRONIC KIDNEY DISEASE, STAGE 3 (MODERAT 05/22/2019 HANNAH CASTILLO, LOR Ot R80.9 PROTEINURIA, UNSPECIFIED 05/22/2019 ALAYNA ZUÑIGA OD Ot E11 .9 TYPE 2 DIABETES MELLITUS WITHOUT COMPLIC 05/22/2019 HANNAH CASTILLO, LOR Ot D64.9 ANEMIA, UNSPECIFIED 05/22/2019 HANNAH CASTILLO, LOR Ot 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 MICA MINER 05/22/2019 LOR YOUNG MD Ot I95.1 ORTHOSTATIC HYPOTENSION 05/22/2019 KEVIN YOUNG MDINE Ot I95.89 OTHER HYPOTENSION 05/22/2019 LOR YOUNG MD Ot R80.9 PROTEINURIA, UNSPECIFIED 05/22/2019 LOR YOUNG MD Ot D64.9 ANEMIA, UNSPECIFIED 05/22/2019 HANNAH CASTILLO, LOR Ot E10.9 TYPE 1 DIABETES MELLITUS WITHOUT COMPLIC 05/22/2019 KEVIN YOUNG MDINE Ot I95.1 ORTHOSTATIC HYPOTENSION 05/22/2019 LOR YOUNG MD Ot N18.3 CHRONIC KIDNEY DISEASE, STAGE 3 (MODERAT 05/22/2019 LOR YOUNG MD Ot R80.9 PROTEINURIA, UNSPECIFIED 05/22/2019 LOR YOUNG MD Ot D64.9 ANEMIA, UNSPECIFIED 05/22/2019 HANNAH CASTILLO, LOR Ot E10.9 TYPE 1 DIABETES MELLITUS WITHOUT COMPLIC 05/22/2019 HANNAH CASTILLO, LOR Ot E55.9 VITAMIN D DEFICIENCY, UNSPECIFIED 05/22/2019 KEVIN YOUNG MDINE Ot I95.1 ORTHOSTATIC HYPOTENSION 05/22/2019 HANNAH CASTILLO, LOR Ot I95.89 OTHER HYPOTENSION 05/22/2019 LOR YOUNG MD Ot N18.3 CHRONIC KIDNEY DISEASE, STAGE 3 (MODERAT 05/22/2019 KEVIN YOUNG MDINE Ot R80.9 PROTEINURIA, UNSPECIFIED 05/22/2019 REJI CASTILLO, ABDONNA W Ot E10.8 TYPE 1 DIABETES MELLITUS WITH UNSPECIFIE 05/22/2019 JAYSON CASTILLO, FADI M Ot D64.9 ANEMIA, UNSPECIFIED 05/22/2019 JAYSON CASTILLO, FADI M Ot 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 MICA MINER 05/22/2019 JAYSON CASTILLO, FADI M Ot E55.9 VITAMIN D DEFICIENCY, UNSPECIFIED 05/22/2019 JAYSON CASTILLO, FADI M Ot I95.1 ORTHOSTATIC HYPOTENSION 05/22/2019 FADI TYLER MD M Ot I95.89 OTHER HYPOTENSION 05/22/2019 JAYSON CASTILLO, FADI M Ot N18.3 CHRONIC KIDNEY DISEASE, STAGE 3 (MODERAT 05/22/2019 JAYSON CASTILLO, FADI M Ot R80.9 PROTEINURIA, UNSPECIFIED 05/22/2019 HANNAH CASTILLO, LOR Ot 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 MICA MINER 05/22/2019 LOR YOUNG MD Ot E55.9 VITAMIN D DEFICIENCY, UNSPECIFIED 05/22/2019 HANNAH CASTILLO LOR Ot I95.1 ORTHOSTATIC HYPOTENSION 05/22/2019 HANNAH CASTILLO LOR Ot I95.89 OTHER HYPOTENSION 05/22/2019 LOR YOUNG MD Ot N18.3 CHRONIC KIDNEY DISEASE, STAGE 3 (MODERAT 05/22/2019 LOR YOUNG MD Ot R80.9 PROTEINURIA, UNSPECIFIED 05/22/2019 REJI CASTILLO, ABDONNA W Ot E10.65 TYPE 1 DIABETES MELLITUS WITH HYPERGLYCE 05/22/2019 KEVIN YOUNG MDINE Ot D64.9 ANEMIA, UNSPECIFIED 05/22/2019 HANNAH CASTILLO, LOR Ot E10.9 TYPE 1 DIABETES MELLITUS WITHOUT COMPLIC 05/22/2019 LOR YOUNG MD Ot E55.9 VITAMIN D DEFICIENCY, UNSPECIFIED 05/22/2019 KEVIN YOUNG MDINE Ot I95.1 ORTHOSTATIC HYPOTENSION 05/22/2019 HANNAH CASTILLO LOR Ot I95.89 OTHER HYPOTENSION 05/22/2019 LOR YOUNG MD Ot N18.3 CHRONIC KIDNEY DISEASE, STAGE 3 (MODERAT 05/22/2019 HANNAH CASTILLO LOR Ot N39.0 URINARY TRACT INFECTION, SITE NOT SPECIF 05/22/2019 KEVIN YOUNG MDINE Ot R80.9 PROTEINURIA, UNSPECIFIED 05/22/2019 PRECIOUS OLMEDO L FINISHING LAB TECHNICIAN Ot E10.9 TYPE 1 DIABETES MELLITUS WITHOUT COMPLIC 05/22/2019 PRECIOUS OLMEDO FINISHING LAB TECHNICIAN Ot I73.9 PERIPHERAL VASCULAR DISEASE, UNSPECIFIED 05/22/2019 PRECIOUS OLMEDO FINISHING LAB TECHNICIAN Ot I95.1 ORTHOSTATIC HYPOTENSION 05/22/2019 PRECIOUS OLMEDO FINISHING LAB TECHNICIAN Ot M79.89 OTHER SPECIFIED SOFT TISSUE DISORDERS 05/22/2019 RASHMIALAN EVERETT FINISHING LAB TECHNICIAN Ot K58.0 IRRITABLE BOWEL SYNDROME WITH DIARRHEA 05/22/2019 LOR YOUNG MD Ot D64.9 ANEMIA, UNSPECIFIED 05/22/2019 LOR YOUNG MD Ot 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 MICA MINER 05/22/2019 LOR YOUNG MD Ot E55.9 VITAMIN D DEFICIENCY, UNSPECIFIED 05/22/2019 LOR YOUNG MD Ot I95.1 ORTHOSTATIC HYPOTENSION 05/22/2019 LOR YOUNG MD Ot I95.89 OTHER HYPOTENSION 05/22/2019 LOR YOUNG MD Ot N18.3 CHRONIC KIDNEY DISEASE, STAGE 3 (MODERAT 05/22/2019 LOR YOUNG MD Ot N39.0 URINARY TRACT INFECTION, SITE NOT SPECIF 05/22/2019 LOR YOUNG MD Ot R80.9 PROTEINURIA, UNSPECIFIED 05/22/2019 DELMAN DO, MIKIE B Ot R10.1 3 EPIGASTRIC PAIN 05/22/2019 DELMAN DO, MIKIE B Ot R11.0 NAUSEA 05/22/2019 DELMAN DO, MIKIE B Ot R19.7 DIARRHEA, UNSPECIFIED 05/22/2019 FADI YOUNG MD S Ot D64.9 ANEMIA, UNSPECIFIED 05/22/2019 FADI YOUNG MD S Ot 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 MICA MINER 05/22/2019 FADI YOUNG MD S Ot E55.9 VITAMIN D DEFICIENCY, UNSPECIFIED 05/22/2019 FADI YOUNG MD S Ot I95.1 ORTHOSTATIC HYPOTENSION 05/22/2019 FADI YOUNG MD S Ot I95.89 OTHER HYPOTENSION 05/22/2019 FADI YOUNG MD S Ot N18.3 CHRONIC KIDNEY DISEASE, STAGE 3 (MODERAT 05/22/2019 FADI YOUNG MD Ot N39.0 URINARY TRACT INFECTION, SITE NOT SPECIF 05/22/2019 FADI YOUNG MD Ot R80.9 PROTEINURIA, UNSPECIFIED 05/22/2019 MIKIE SWIFT DO Ot Z01.8 18 ENCOUNTER FOR OTHER PREPROCEDURAL EXAMIN 05/22/2019 COREY NGUYEN MD Ot D63. 1 ANEMIA IN CHRONIC KIDNEY DISEASE 05/22/2019 COREY NGUYEN MD Ot E10. 21 TYPE 1 DIABETES MELLITUS WITH DIABETIC N 05/22/2019 COREY NGUYEN MD Ot K58. 9 IRRITABLE BOWEL SYNDROME WITHOUT DIARRHE 05/22/2019 COREY NGUYEN MD, Ot N18. 3 CHRONIC KIDNEY DISEASE, STAGE 3 (MODERAT 05/22/2019 COREY NGUYEN MD Ot Z79. 4 LONGTERM (CURRENT) USE OF INSULIN 05/22/2019 COREY NGUYEN MD, Ot Z79.899 OTHER LONGTERM (CURRENT) DRUG THERAPY 05/22/2019 COREY NGUYEN MD, Ot Z87.891 PERSONAL HISTORY OF NICOTINE DEPENDENCE 05/22/2019 LOR YOUNG MD Ot D64.9 ANEMIA, UNSPECIFIED 05/22/2019 LOR YOUNG MD Ot E10.9 TYPE 1 DIABETES MELLITUS WITHOUT COMPLIC 05/22/2019 LOR YOUNG MD Ot E55.9 VITAMIN D DEFICIENCY, UNSPECIFIED 05/22/2019 LOR YOUNG MD Ot I95.1 ORTHOSTATIC HYPOTENSION 05/22/2019 LOR YOUNG MD Ot I95.89 OTHER HYPOTENSION 05/22/2019 LOR YOUNG MD Ot N18.3 CHRONIC KIDNEY DISEASE, STAGE 3 (MODERAT 05/22/2019 LOR YOUNG MD Ot N39.0 URINARY TRACT INFECTION, SITE NOT SPECIF 05/22/2019 LOR YOUNG MD Ot R80.9 PROTEINURIA, UNSPECIFIED 05/28/2019 COREY NGUYEN MD Ot D63. 1 ANEMIA IN CHRONIC KIDNEY DISEASE 05/28/2019 COREY NGUYEN MD Ot E10. 21 TYPE 1 DIABETES MELLITUS WITH DIABETIC N 05/28/2019 COREY NGUYEN MD Ot K58. 9 IRRITABLE BOWEL SYNDROME WITHOUT DIARRHE 05/28/2019 COREY NGUYEN MD, Ot N18. 3 CHRONIC KIDNEY DISEASE, STAGE 3 (MODERAT 05/28/2019 COREY NGUYEN MD Ot Z79. 4 LONGTERM (CURRENT) USE OF INSULIN 05/28/2019 COREY NGUYEN MD, Ot Z79.899 OTHER LONGTERM (CURRENT) DRUG THERAPY 05/28/2019 COREY NGUYEN MD, Ot Z87.891 PERSONAL HISTORY OF NICOTINE DEPENDENCE 05/29/2019 FACUNDO CASTILLO FACC, ALI FACP CCDS Ot E11.22 TYPE 2 DIABETES MELLITUS W DIABETIC MICA MINER 05/29/2019 FACUNDO CASTILLO FACC, ALI FACP CCDS Ot I12.9 HYPERTENSIVE CHRONIC KIDNEY DISEASE W ST 05/29/2019 FACUNDO CASTILLO FACC, ALI DIEGOP CCDS Ot N18.4 CHRONIC KIDNEY DISEASE, STAGE 4 (SEVERE) 05/29/2019 LOR YOUNG MD Ot D64.9 ANEMIA, UNSPECIFIED 05/29/2019 LOR YOUNG MD Ot E10.9 TYPE 1 DIABETES MELLITUS WITHOUT COMPLIC 05/29/2019 LOR YOUNG MD Ot E55.9 VITAMIN D DEFICIENCY, UNSPECIFIED 05/29/2019 LOR YOUNG MD Ot I95.1 ORTHOSTATIC HYPOTENSION 05/29/2019 KEVIN YOUNG MDINE Ot I95.89 OTHER HYPOTENSION 05/29/2019 LOR YOUNG MD Ot N18.3 CHRONIC KIDNEY DISEASE, STAGE 3 (MODERAT 05/29/2019 LOR YOUNG MD Ot N39.0 URINARY TRACT INFECTION, SITE NOT SPECIF 05/29/2019 LOR YOUNG MD Ot R80.9 PROTEINURIA, UNSPECIFIED 06/01/2019 FACUNDO CASTILLO FACC, ALI FACP CCDS Ot E11.22 TYPE 2 DIABETES MELLITUS W DIABETIC MICA MINER 06/01/2019 FACUNDO CASTILLO FACC, ALI FACP CCDS Ot I12.9 HYPERTENSIVE CHRONIC KIDNEY DISEASE W ST 06/01/2019 FACUNDO CASTILLO FACC, ALI FACP CCDS Ot N18.4 CHRONIC KIDNEY DISEASE, STAGE 4 (SEVERE) 06/01/2019 XUCOREY Anderson MD, Ot D63. 1 ANEMIA IN CHRONIC KIDNEY DISEASE 06/01/2019 COREY NGUYEN MD Ot E10. 21 TYPE 1 DIABETES MELLITUS WITH DIABETIC N 06/01/2019 COREY NGUYEN MD, Ot K58. 9 IRRITABLE BOWEL SYNDROME WITHOUT DIARRHE 06/01/2019 COREY NGUYEN MD, Ot N18. 3 CHRONIC KIDNEY DISEASE, STAGE 3 (MODERAT 06/01/2019 COREY NGUYEN MD, Ot Z79. 4 SPARE HAND (CURRENT) USE OF INSULIN 06/01/2019 COREY NGUYEN MD, Ot Z79.899 OTHER LONGTERM (CURRENT) DRUG THERAPY 06/01/2019 COREY NGUYEN MD, Ot Z87.891 PERSONAL HISTORY OF NICOTINE DEPENDENCE 06/09/2019 HANNAH CASTILLO, FADI S Ot E55.9 VITAMIN D DEFICIENCY, UNSPECIFIED 06/11/2019 FADI YOUNG MD S Ot E55.9 VITAMIN D DEFICIENCY, UNSPECIFIED 06/12/2019 FADI YOUNG MD S Ot D63.1 ANEMIA IN CHRONIC KIDNEY DISEASE 06/12/2019 FADI YOUNG MD S Ot E10.9 TYPE 1 DIABETES MELLITUS WITHOUT COMPLIC 06/12/2019 FADI YOUNG MD S Ot E55.9 VITAMIN D DEFICIENCY, UNSPECIFIED 06/12/2019 HANNAH CASTILLO, FADI S Ot I95.1 ORTHOSTATIC HYPOTENSION 06/12/2019 FADI YOUNG MD S Ot I95.89 OTHER HYPOTENSION 06/12/2019 FADI YOUNG MD S Ot N18.5 CHRONIC KIDNEY DISEASE, STAGE 5 06/12/2019 FADI YOUNG MD S Ot N39.0 URINARY TRACT INFECTION, SITE NOT SPECIF 2019 FACUNDO CASTILLO FACC, ALI FACP CCDS Ot E11.22 TYPE 2 DIABETES MELLITUS W DIABETIC MICA MINER 2019 FACUNDO CASTILLO FACC, ALI FACP CCDS Ot I12.9 HYPERTENSIVE CHRONIC KIDNEY DISEASE W ST 2019 FACNUDO CASTILLO FACC, ALI FACP CCDS Ot N18.4 CHRONIC KIDNEY DISEASE, STAGE 4 (SEVERE) 07/03/2019 FADI YOUNG MD S Ot D63.1 ANEMIA IN CHRONIC KIDNEY DISEASE 07/03/2019 FADI YOUNG MD Ot E10.9 TYPE 1 DIABETES MELLITUS WITHOUT COMPLIC 07/03/2019 HANNAH CASTILLO, FADI S Ot E55.9 VITAMIN D DEFICIENCY, UNSPECIFIED 07/03/2019 HANNAH CASTILLO, FADI S Ot I95.1 ORTHOSTATIC HYPOTENSION 07/03/2019 HANNAH CASTILLO, FADI S Ot I95.89 OTHER HYPOTENSION 07/03/2019 HANNAH CASTILLO, FADI S Ot N18.5 CHRONIC KIDNEY DISEASE, STAGE 5 07/03/2019 HANNAH CASTILLO, FADI S Ot N39.0 URINARY TRACT INFECTION, SITE NOT SPECIF 07/16/2019 COREY NGUYEN MD, Ot D63. 1 ANEMIA IN CHRONIC KIDNEY DISEASE 07/16/2019 COREY NGUYEN MD Ot E10. 21 TYPE 1 DIABETES MELLITUS WITH DIABETIC N 07/16/2019 COREY NGUYEN MD Ot K58. 9 IRRITABLE BOWEL SYNDROME WITHOUT DIARRHE 07/16/2019 COREY NGUYEN MD, Ot N18. 3 CHRONIC KIDNEY DISEASE, STAGE 3 (MODERAT 07/16/2019 COREY NGUYEN MD Ot Z79. 4 SPARE HAND (CURRENT) USE OF INSULIN 07/16/2019 COREY NGUYEN MD Ot Z79.899 OTHER LONGTERM (CURRENT) DRUG THERAPY 07/16/2019 COREY NGUYEN MD, Ot Z87.891 PERSONAL HISTORY OF NICOTINE DEPENDENCE 08/06/2019 CHEN MCCOY SOFTWARE QUALITY TESTER Ot 611.72 LUMP OR MASS IN BREAST 08/06/2019 LOR YOUNG MD Ot D64.9 ANEMIA, UNSPECIFIED 08/06/2019 LOR YOUNG MD Ot 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 MICA MINER 08/06/2019 LOR YOUNG MD Ot I12.9 HYPERTENSIVE CHRONIC KIDNEY DISEASE W ST 08/06/2019 LOR YOUNG MD Ot N18.3 CHRONIC KIDNEY DISEASE, STAGE 3 (MODERAT 08/06/2019 LOR YOUNG MD Ot R80.9 PROTEINURIA, UNSPECIFIED 08/06/2019 LOR YOUNG MD Ot D64.9 ANEMIA, UNSPECIFIED 08/06/2019 ABOUL-MAGD MD, LOR Ot 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 MICA MINER 08/06/2019 HANNAH CASTILLO, LOR Ot I12.9 HYPERTENSIVE CHRONIC KIDNEY DISEASE W ST 08/06/2019 LOR YOUNG MD Ot N18.3 CHRONIC KIDNEY DISEASE, STAGE 3 (MODERAT 08/06/2019 HANNAH CASTILLO, LOR Ot R80.9 PROTEINURIA, UNSPECIFIED 08/06/2019 HANNAH CASTILLO, AHMED S Ot D64.9 ANEMIA, UNSPECIFIED 08/06/2019 HANNAH CASTILLO, AHMED S Ot 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 MICA MINER 08/06/2019 HANNAH CASTILLO, AHMED S Ot I95.89 OTHER HYPOTENSION 08/06/2019 HANNAH CASTILLO, AHMED S Ot N18.3 CHRONIC KIDNEY DISEASE, STAGE 3 (MODERAT 08/06/2019 HANNAH CASTILLO, AHMED S Ot R80.9 PROTEINURIA, UNSPECIFIED 08/06/2019 KEVIN YOUNG MDINE Ot D64.9 ANEMIA, UNSPECIFIED 08/06/2019 HANNAH CASTILLO, LOR Ot E10.9 TYPE 1 DIABETES MELLITUS WITHOUT COMPLIC 08/06/2019 HANNAH CASTILLO LOR Ot I95.89 OTHER HYPOTENSION 08/06/2019 LOR YOUNG MD Ot N18.3 CHRONIC KIDNEY DISEASE, STAGE 3 (MODERAT 08/06/2019 LOR YOUNG MD Ot R80.9 PROTEINURIA, UNSPECIFIED 08/06/2019 LOR YOUNG MD Ot D64.9 ANEMIA, UNSPECIFIED 08/06/2019 HANNAH CASTILLO, LOR Ot 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 MICA MINER 08/06/2019 HANNAH CASTILLO LOR Ot I95.89 OTHER HYPOTENSION 08/06/2019 LOR YOUNG MD Ot N18.3 CHRONIC KIDNEY DISEASE, STAGE 3 (MODERAT 08/06/2019 HANNAH CASTILLO LOR Ot R80.9 PROTEINURIA, UNSPECIFIED 08/06/2019 FACUNDO CASTILLO FACRandolph, ALI FACP CCDS Ot R06.02 SHORTNESS OF BREATH 08/06/2019 FACUNDO CASTILLO FACRandolph, ALI FACP CCDS Ot R06.02 SHORTNESS OF BREATH 08/06/2019 LOR YOUNG MD Ot D64.9 ANEMIA, UNSPECIFIED 08/06/2019 LOR YOUNG MD Ot E10.9 TYPE 1 DIABETES MELLITUS WITHOUT COMPLIC 08/06/2019 LOR YOUNG MD Ot I95.89 OTHER HYPOTENSION 08/06/2019 LOR YOUNG MD Ot N18.3 CHRONIC KIDNEY DISEASE, STAGE 3 (MODERAT 08/06/2019 LOR YOUNG MD Ot R80.9 PROTEINURIA, UNSPECIFIED 08/06/2019 ALAYNA ZUÑIGA OD Ot E11 .9 TYPE 2 DIABETES MELLITUS WITHOUT COMPLIC 08/06/2019 LOR YOUNG MD Ot D64.9 ANEMIA, UNSPECIFIED 08/06/2019 LOR YOUNG MD Ot 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 MICA MINER 08/06/2019 LOR YOUNG MD Ot I95.1 ORTHOSTATIC HYPOTENSION 08/06/2019 LOR YOUNG MD Ot I95.89 OTHER HYPOTENSION 08/06/2019 LOR YOUNG MD Ot R80.9 PROTEINURIA, UNSPECIFIED 08/06/2019 LOR YOUNG MD Ot D64.9 ANEMIA, UNSPECIFIED 08/06/2019 LOR YOUNG MD Ot E10.9 TYPE 1 DIABETES MELLITUS WITHOUT COMPLIC 08/06/2019 LOR YOUNG MD Ot I95.1 ORTHOSTATIC HYPOTENSION 08/06/2019 LOR YOUNG MD Ot N18.3 CHRONIC KIDNEY DISEASE, STAGE 3 (MODERAT 08/06/2019 LOR YOUNG MD Ot R80.9 PROTEINURIA, UNSPECIFIED 08/06/2019 LOR YOUNG MD Ot D64.9 ANEMIA, UNSPECIFIED 08/06/2019 LOR YOUNG MD Ot E10.9 TYPE 1 DIABETES MELLITUS WITHOUT COMPLIC 08/06/2019 LOR YOUNG MD Ot E55.9 VITAMIN D DEFICIENCY, UNSPECIFIED 08/06/2019 LOR YOUNG MD Ot I95.1 ORTHOSTATIC HYPOTENSION 08/06/2019 KEVIN YOUNG MDINE Ot I95.89 OTHER HYPOTENSION 08/06/2019 HANNAH CASTILLO, LOR Ot N18.3 CHRONIC KIDNEY DISEASE, STAGE 3 (MODERAT 08/06/2019 HANNAH CASTILLO, LOR Ot R80.9 PROTEINURIA, UNSPECIFIED 08/06/2019 REJI CASTILLO, ABEER W Ot E10.8 TYPE 1 DIABETES MELLITUS WITH UNSPECIFIE 08/06/2019 JAYSON CASTILLO, FADI Dozier Ot D64.9 ANEMIA, UNSPECIFIED 08/06/2019 JAYSON CASTILLO, FADI M Ot 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 MICA MINER 08/06/2019 JAYSON CASTILLO, FADI Dozier Ot E55.9 VITAMIN D DEFICIENCY, UNSPECIFIED 08/06/2019 JAYSON CASTILLO, FADI M Ot I95.1 ORTHOSTATIC HYPOTENSION 08/06/2019 JAYSON CASTILLO, FADI M Ot I95.89 OTHER HYPOTENSION 08/06/2019 JAYSON CASTILLO, FADI M Ot N18.3 CHRONIC KIDNEY DISEASE, STAGE 3 (MODERAT 08/06/2019 JAYSON CASTILLO, FADI Dozier Ot R80.9 PROTEINURIA, UNSPECIFIED 08/06/2019 HANNAH CASTILLO, LOR Ot 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 MICA MINER 08/06/2019 HANNAH CASTILLO, LOR Ot E55.9 VITAMIN D DEFICIENCY, UNSPECIFIED 08/06/2019 HANNAH CASTILLO, LOR Ot I95.1 ORTHOSTATIC HYPOTENSION 08/06/2019 HANNAH CASTILLO, LOR Ot I95.89 OTHER HYPOTENSION 08/06/2019 HANNAH CASTILLO, LOR Ot N18.3 CHRONIC KIDNEY DISEASE, STAGE 3 (MODERAT 08/06/2019 HANNAH CASTILLO, LOR Ot R80.9 PROTEINURIA, UNSPECIFIED 08/06/2019 REJI CASTILLO, DARNELL W Ot E10.65 TYPE 1 DIABETES MELLITUS WITH HYPERGLYCE 08/06/2019 LOR YOUNG MD Ot D64.9 ANEMIA, UNSPECIFIED 08/06/2019 HANNAH CASTILLO, LOR Ot E10.9 TYPE 1 DIABETES MELLITUS WITHOUT COMPLIC 08/06/2019 LOR YOUNG MD Ot E55.9 VITAMIN D DEFICIENCY, UNSPECIFIED 08/06/2019 HANNAH CASTILLO, LOR Ot I95.1 ORTHOSTATIC HYPOTENSION 08/06/2019 LOR YOUNG MD Ot I95.89 OTHER HYPOTENSION 08/06/2019 LOR YOUNG MD Ot N18.3 CHRONIC KIDNEY DISEASE, STAGE 3 (MODERAT 08/06/2019 LOR YOUNG MD Ot N39.0 URINARY TRACT INFECTION, SITE NOT SPECIF 08/06/2019 LOR YOUNG MD Ot R80.9 PROTEINURIA, UNSPECIFIED 08/06/2019 PRECIOUS OLMEDO FINISHING LAB TECHNICIAN Ot E10.9 TYPE 1 DIABETES MELLITUS WITHOUT COMPLIC 08/06/2019 PRECIOUS OLMEDO FINISHING LAB TECHNICIAN Ot I73.9 PERIPHERAL VASCULAR DISEASE, UNSPECIFIED 08/06/2019 PRECIOUS OLMEDO FINISHING LAB TECHNICIAN Ot I95.1 ORTHOSTATIC HYPOTENSION 08/06/2019 PRECIOUS OLMEDO FINISHING LAB TECHNICIAN Ot M79.89 OTHER SPECIFIED SOFT TISSUE DISORDERS 08/06/2019 ALAN CARABALLO FINISHING LAB TECHNICIAN Ot K58.0 IRRITABLE BOWEL SYNDROME WITH DIARRHEA 08/06/2019 LOR YOUNG MD Ot D64.9 ANEMIA, UNSPECIFIED 08/06/2019 LOR YOUNG MD Ot 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 MICA MINER 08/06/2019 LOR YOUNG MD Ot E55.9 VITAMIN D DEFICIENCY, UNSPECIFIED 08/06/2019 LOR YOUNG MD Ot I95.1 ORTHOSTATIC HYPOTENSION 08/06/2019 LOR YOUNG MD Ot I95.89 OTHER HYPOTENSION 08/06/2019 LOR YOUNG MD Ot N18.3 CHRONIC KIDNEY DISEASE, STAGE 3 (MODERAT 08/06/2019 LOR YOUNG MD Ot N39.0 URINARY TRACT INFECTION, SITE NOT SPECIF 08/06/2019 LOR YOUNG MD Ot R80.9 PROTEINURIA, UNSPECIFIED 08/06/2019 DELMAN DO, MIKIE B Ot R10.1 3 EPIGASTRIC PAIN 08/06/2019 DELMAN DO, MIKIE B Ot R11.0 NAUSEA 08/06/2019 DELMAN DO, MIKIE B Ot R19.7 DIARRHEA, UNSPECIFIED 08/06/2019 FADI YOUNG MD Ot D64.9 ANEMIA, UNSPECIFIED 08/06/2019 FADI YOUNG MD S Ot 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 MICA MINER 08/06/2019 FADI YOUNG MD Ot E55.9 VITAMIN D DEFICIENCY, UNSPECIFIED 08/06/2019 GONZALO YOUNG MDMED S Ot I95.1 ORTHOSTATIC HYPOTENSION 08/06/2019 GONZALO YOUNG MDMED S Ot I95.89 OTHER HYPOTENSION 08/06/2019 FADI YOUNG MD S Ot N18.3 CHRONIC KIDNEY DISEASE, STAGE 3 (MODERAT 08/06/2019 HANNAH CASTILLO, GONZALOMED S Ot N39.0 URINARY TRACT INFECTION, SITE NOT SPECIF 08/06/2019 FADI YOUNG MD Ot R80.9 PROTEINURIA, UNSPECIFIED 08/06/2019 MIKIE SWIFT DO Ot Z01.8 18 ENCOUNTER FOR OTHER PREPROCEDURAL EXAMIN 08/06/2019 LOR YOUNG MD Ot D64.9 ANEMIA, UNSPECIFIED 08/06/2019 LOR YOUNG MD Ot E10.9 TYPE 1 DIABETES MELLITUS WITHOUT COMPLIC 08/06/2019 LOR YOUNG MD Ot E55.9 VITAMIN D DEFICIENCY, UNSPECIFIED 08/06/2019 LOR YOUNG MD Ot I95.1 ORTHOSTATIC HYPOTENSION 08/06/2019 HANNAH CASTILLO LOR Ot I95.89 OTHER HYPOTENSION 08/06/2019 KEVIN YOUNG MDINE Ot N18.3 CHRONIC KIDNEY DISEASE, STAGE 3 (MODERAT 08/06/2019 LOR YOUNG MD Ot N39.0 URINARY TRACT INFECTION, SITE NOT SPECIF 08/06/2019 LOR YOUNG MD Ot R80.9 PROTEINURIA, UNSPECIFIED 08/06/2019 FACUNDO CASTILLO FACC, ALI FACP CCDS Ot E11.22 TYPE 2 DIABETES MELLITUS W DIABETIC MICA MINER 08/06/2019 FACUNDO CASTILLO FACC, ALI FACP CCDS Ot I12.9 HYPERTENSIVE CHRONIC KIDNEY DISEASE W ST 08/06/2019 FACUNDO CASTILLO FACC, ALI FACP CCDS Ot N18.4 CHRONIC KIDNEY DISEASE, STAGE 4 (SEVERE) 08/06/2019 PATRICK CASTILLO, COREY Ot D63. 1 ANEMIA IN CHRONIC KIDNEY DISEASE 08/06/2019 COREY NGUYEN MD Ot E10. 21 TYPE 1 DIABETES MELLITUS WITH DIABETIC N 08/06/2019 COREY NGUYEN MD Ot K58. 9 IRRITABLE BOWEL SYNDROME WITHOUT DIARRHE 08/06/2019 COREY NGUYEN MD, Ot N18. 3 CHRONIC KIDNEY DISEASE, STAGE 3 (MODERAT 08/06/2019 COREY NGUYEN MD, Ot Z79. 4 SPARE HAND (CURRENT) USE OF INSULIN 08/06/2019 COREY NGUYEN MD, Ot Z79.899 OTHER SPARE HAND (CURRENT) DRUG THERAPY 08/06/2019 COREY NGUYEN MD, Ot Z87.891 PERSONAL HISTORY OF NICOTINE DEPENDENCE 08/06/2019 HANNAH CASTILLO, FADI S Ot D63.1 ANEMIA IN CHRONIC KIDNEY DISEASE 08/06/2019 FADI YOUNG MD S Ot E10.9 TYPE 1 DIABETES MELLITUS WITHOUT COMPLIC 08/06/2019 FADI YOUNG MD S Ot E55.9 VITAMIN D DEFICIENCY, UNSPECIFIED 08/06/2019 HANNAH CASTILLO, FADI S Ot I95.1 ORTHOSTATIC HYPOTENSION 08/06/2019 HANNAH CASTILLO, FADI S Ot I95.89 OTHER HYPOTENSION 08/06/2019 HANNAH CASTILLO, FADI S Ot N18.5 CHRONIC KIDNEY DISEASE, STAGE 5 08/06/2019 HANNAH CASTILLO, FADI S Ot N39.0 URINARY TRACT INFECTION, SITE NOT SPECIF 08/06/2019 COREY NGUYEN MD, Ot D63. 1 ANEMIA IN CHRONIC KIDNEY DISEASE 08/06/2019 COREY NGUYEN MD Ot E10. 21 TYPE 1 DIABETES MELLITUS WITH DIABETIC N 08/06/2019 COREY NGUYEN MD, Ot K58. 9 IRRITABLE BOWEL SYNDROME WITHOUT DIARRHE 08/06/2019 COREY NGUYEN MD, Ot N18. 3 CHRONIC KIDNEY DISEASE, STAGE 3 (MODERAT 08/06/2019 COREY NGUYEN MD, Ot Z79. 4 LONGTERM (CURRENT) USE OF INSULIN 08/06/2019 COREY NGUYEN MD, Ot Z79.899 OTHER SPARE HAND (CURRENT) DRUG THERAPY 08/06/2019 COREY NGUYEN MD, Ot Z87.891 PERSONAL HISTORY OF NICOTINE DEPENDENCE 08/06/2019 CHEN MCCOY APRN Ot 611.72 LUMP OR MASS IN BREAST 08/06/2019 HANNAH CASTILLO, LOR Ot D64.9 ANEMIA, UNSPECIFIED 08/06/2019 HANNAH CASTILLO, LOR Ot 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 MICA MINER 08/06/2019 KEVIN YOUNG MDINE Ot I12.9 HYPERTENSIVE CHRONIC KIDNEY DISEASE W ST 08/06/2019 HANNAH CASTILLO, LOR Ot N18.3 CHRONIC KIDNEY DISEASE, STAGE 3 (MODERAT 08/06/2019 HANNAH CASTILLO, LOR Ot R80.9 PROTEINURIA, UNSPECIFIED 08/06/2019 HANNAH CASTILLO, LOR Ot D64.9 ANEMIA, UNSPECIFIED 08/06/2019 HANNAH CASTILLO, LOR Ot 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 MICA MINER 08/06/2019 LOR YOUNG MD Ot I12.9 HYPERTENSIVE CHRONIC KIDNEY DISEASE W ST 08/06/2019 LOR YOUNG MD Ot N18.3 CHRONIC KIDNEY DISEASE, STAGE 3 (MODERAT 08/06/2019 LOR YOUNG MD Ot R80.9 PROTEINURIA, UNSPECIFIED 08/06/2019 HANNAH CASTILLO, FADI S Ot D64.9 ANEMIA, UNSPECIFIED 08/06/2019 HANNAH CASTILLO, FADI S Ot 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 MICA MINER 08/06/2019 HANNAH CASTILLO, AHMED S Ot I95.89 OTHER HYPOTENSION 08/06/2019 HANNAH CASTILLO, FADI S Ot N18.3 CHRONIC KIDNEY DISEASE, STAGE 3 (MODERAT 08/06/2019 HANNAH CASTILLO, AHMED S Ot R80.9 PROTEINURIA, UNSPECIFIED 08/06/2019 HANNAH CASTILLO, LOR Ot D64.9 ANEMIA, UNSPECIFIED 08/06/2019 HANNAH CASTILLO, LOR Ot E10.9 TYPE 1 DIABETES MELLITUS WITHOUT COMPLIC 08/06/2019 HANNAH CASTILLO, LOR Ot I95.89 OTHER HYPOTENSION 08/06/2019 HANNAH CASTILLO, LOR Ot N18.3 CHRONIC KIDNEY DISEASE, STAGE 3 (MODERAT 08/06/2019 HANNAH CASTILLO LOR Ot R80.9 PROTEINURIA, UNSPECIFIED 08/06/2019 LOR YOUNG MD Ot D64.9 ANEMIA, UNSPECIFIED 08/06/2019 LOR YOUNG MD Ot 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 MICA MINER 08/06/2019 LOR YOUNG MD Ot I95.89 OTHER HYPOTENSION 08/06/2019 LOR YOUNG MD Ot N18.3 CHRONIC KIDNEY DISEASE, STAGE 3 (MODERAT 08/06/2019 LOR YOUNG MD Ot R80.9 PROTEINURIA, UNSPECIFIED 08/06/2019 FACUNDO CASTILLO FAC, ALI FACP CCDS Ot R06.02 SHORTNESS OF BREATH 08/06/2019 FACUNDO CASTILLO FAC, ALI FACP CCDS Ot R06.02 SHORTNESS OF BREATH 08/06/2019 LOR YOUNG MD Ot D64.9 ANEMIA, UNSPECIFIED 08/06/2019 LOR YOUNG MD Ot E10.9 TYPE 1 DIABETES MELLITUS WITHOUT COMPLIC 08/06/2019 LOR YOUNG MD Ot I95.89 OTHER HYPOTENSION 08/06/2019 LOR YOUNG MD Ot N18.3 CHRONIC KIDNEY DISEASE, STAGE 3 (MODERAT 08/06/2019 LOR YOUNG MD Ot R80.9 PROTEINURIA, UNSPECIFIED 08/06/2019 ALAYNA ZUÑIGA OD Ot E11 .9 TYPE 2 DIABETES MELLITUS WITHOUT COMPLIC 08/06/2019 LOR YOUNG MD Ot D64.9 ANEMIA, UNSPECIFIED 08/06/2019 LOR YOUNG MD Ot 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 MICA MINER 08/06/2019 LOR YOUNG MD Ot I95.1 ORTHOSTATIC HYPOTENSION 08/06/2019 KEVIN YOUNG MDINE Ot I95.89 OTHER HYPOTENSION 08/06/2019 LOR YOUNG MD Ot R80.9 PROTEINURIA, UNSPECIFIED 08/06/2019 LOR YOUNG MD Ot D64.9 ANEMIA, UNSPECIFIED 08/06/2019 LOR YOUNG MD Ot E10.9 TYPE 1 DIABETES MELLITUS WITHOUT COMPLIC 08/06/2019 ABOUL-MAGD MD, LOR Ot I95.1 ORTHOSTATIC HYPOTENSION 08/06/2019 HANNAH CASTILLO, LOR Ot N18.3 CHRONIC KIDNEY DISEASE, STAGE 3 (MODERAT 08/06/2019 HANNAH CASTILLO, LOR Ot R80.9 PROTEINURIA, UNSPECIFIED 08/06/2019 HANNAH CASTILLO, LOR Ot D64.9 ANEMIA, UNSPECIFIED 08/06/2019 HANNAH CASTILLO, LOR Ot E10.9 TYPE 1 DIABETES MELLITUS WITHOUT COMPLIC 08/06/2019 HANNAH CASTILLO, LOR Ot E55.9 VITAMIN D DEFICIENCY, UNSPECIFIED 08/06/2019 HANNAH CASTILLO, LOR Ot I95.1 ORTHOSTATIC HYPOTENSION 08/06/2019 HANNAH CASTILLO, LOR Ot I95.89 OTHER HYPOTENSION 08/06/2019 HANNAH CASTILLO, LOR Ot N18.3 CHRONIC KIDNEY DISEASE, STAGE 3 (MODERAT 08/06/2019 LOR YOUNG MD Ot R80.9 PROTEINURIA, UNSPECIFIED 08/06/2019 REJI CASTILLO, ABDONNA W Ot E10.8 TYPE 1 DIABETES MELLITUS WITH UNSPECIFIE 08/06/2019 JAYSON CASTILLO, FADI M Ot D64.9 ANEMIA, UNSPECIFIED 08/06/2019 JAYSON CASTILLO, FADI M Ot 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 MICA MINER 08/06/2019 JAYSON CASTILLO, FADI M Ot E55.9 VITAMIN D DEFICIENCY, UNSPECIFIED 08/06/2019 JAYSON CASTILLO, FADI M Ot I95.1 ORTHOSTATIC HYPOTENSION 08/06/2019 JAYSON CASTILLO, FADI M Ot I95.89 OTHER HYPOTENSION 08/06/2019 JAYSON CASTILLO, FADI M Ot N18.3 CHRONIC KIDNEY DISEASE, STAGE 3 (MODERAT 08/06/2019 JAYSON CASTILLO, FADI M Ot R80.9 PROTEINURIA, UNSPECIFIED 08/06/2019 HANNAH CASTILLO, LOR Ot 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 MICA MINER 08/06/2019 HANNAH CASTILLO, LOR Ot E55.9 VITAMIN D DEFICIENCY, UNSPECIFIED 08/06/2019 HANNAH CASTILLO, LOR Ot I95.1 ORTHOSTATIC HYPOTENSION 08/06/2019 HANNAH CASTILLO, LOR Ot I95.89 OTHER HYPOTENSION 08/06/2019 LOR YOUNG MD Ot N18.3 CHRONIC KIDNEY DISEASE, STAGE 3 (MODERAT 08/06/2019 LOR YOUNG MD Ot R80.9 PROTEINURIA, UNSPECIFIED 08/06/2019 REJI CASTILLO, ABEER W Ot E10.65 TYPE 1 DIABETES MELLITUS WITH HYPERGLYCE 08/06/2019 LOR YOUNG MD Ot D64.9 ANEMIA, UNSPECIFIED 08/06/2019 LOR YOUNG MD Ot E10.9 TYPE 1 DIABETES MELLITUS WITHOUT COMPLIC 08/06/2019 LOR YOUNG MD Ot E55.9 VITAMIN D DEFICIENCY, UNSPECIFIED 08/06/2019 KEVIN YOUNG MDINE Ot I95.1 ORTHOSTATIC HYPOTENSION 08/06/2019 HANNAH CASTILLO LOR Ot I95.89 OTHER HYPOTENSION 08/06/2019 LOR YOUNG MD Ot N18.3 CHRONIC KIDNEY DISEASE, STAGE 3 (MODERAT 08/06/2019 LOR YOUNG MD Ot N39.0 URINARY TRACT INFECTION, SITE NOT SPECIF 08/06/2019 LOR YOUNG MD Ot R80.9 PROTEINURIA, UNSPECIFIED 08/06/2019 PRECIOUS OLMEDO FINISHING LAB TECHNICIAN Ot E10.9 TYPE 1 DIABETES MELLITUS WITHOUT COMPLIC 08/06/2019 PRECIOUS OLMEDO FINISHING LAB TECHNICIAN Ot I73.9 PERIPHERAL VASCULAR DISEASE, UNSPECIFIED 08/06/2019 PRECIOUS OLMEDO FINISHING LAB TECHNICIAN Ot I95.1 ORTHOSTATIC HYPOTENSION 08/06/2019 PRECIOUS OLMEDO FINISHING LAB TECHNICIAN Ot M79.89 OTHER SPECIFIED SOFT TISSUE DISORDERS 08/06/2019 ALAN CARABALLO FINISHING LAB TECHNICIAN Ot K58.0 IRRITABLE BOWEL SYNDROME WITH DIARRHEA 08/06/2019 LOR YOUNG MD Ot D64.9 ANEMIA, UNSPECIFIED 08/06/2019 LOR YOUNG MD Ot 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 MICA MINER 08/06/2019 LOR YOUNG MD Ot E55.9 VITAMIN D DEFICIENCY, UNSPECIFIED 08/06/2019 KEVIN YOUNG MDINE Ot I95.1 ORTHOSTATIC HYPOTENSION 08/06/2019 HANNAH CASTILLO LOR Ot I95.89 OTHER HYPOTENSION 08/06/2019 LOR YOUNG MD Ot N18.3 CHRONIC KIDNEY DISEASE, STAGE 3 (MODERAT 08/06/2019 LOR YOUNG MD Ot N39.0 URINARY TRACT INFECTION, SITE NOT SPECIF 08/06/2019 LOR YOUNG MD Ot R80.9 PROTEINURIA, UNSPECIFIED 08/06/2019 DELMAN DO, MIKIE B Ot R10.1 3 EPIGASTRIC PAIN 08/06/2019 DELMAN DO, MIKIE B Ot R11.0 NAUSEA 08/06/2019 DELMAN DO, MIKIE B Ot R19.7 DIARRHEA, UNSPECIFIED 08/06/2019 FADI YOUNG MD Ot D64.9 ANEMIA, UNSPECIFIED 08/06/2019 FADI YOUNG MD S Ot 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 MICA MINER 08/06/2019 FADI YOUNG MD Ot E55.9 VITAMIN D DEFICIENCY, UNSPECIFIED 08/06/2019 FADI YOUNG MD S Ot I95.1 ORTHOSTATIC HYPOTENSION 08/06/2019 FADI YOUNG MD S Ot I95.89 OTHER HYPOTENSION 08/06/2019 FADI YOUNG MD S Ot N18.3 CHRONIC KIDNEY DISEASE, STAGE 3 (MODERAT 08/06/2019 FADI YOUNG MD S Ot N39.0 URINARY TRACT INFECTION, SITE NOT SPECIF 08/06/2019 FADI YOUNG MD S Ot R80.9 PROTEINURIA, UNSPECIFIED 08/06/2019 DELMAN DO, MIKIE B Ot Z01.8 18 ENCOUNTER FOR OTHER PREPROCEDURAL EXAMIN 08/06/2019 LOR YOUNG MD Ot D64.9 ANEMIA, UNSPECIFIED 08/06/2019 LOR YOUNG MD Ot E10.9 TYPE 1 DIABETES MELLITUS WITHOUT COMPLIC 08/06/2019 LOR YOUNG MD Ot E55.9 VITAMIN D DEFICIENCY, UNSPECIFIED 08/06/2019 LOR YOUNG MD Ot I95.1 ORTHOSTATIC HYPOTENSION 08/06/2019 LOR YOUNG MD Ot I95.89 OTHER HYPOTENSION 08/06/2019 LOR YOUNG MD Ot N18.3 CHRONIC KIDNEY DISEASE, STAGE 3 (MODERAT 08/06/2019 LOR YOUNG MD Ot N39.0 URINARY TRACT INFECTION, SITE NOT SPECIF 08/06/2019 LOR YOUNG MD Ot R80.9 PROTEINURIA, UNSPECIFIED 08/06/2019 FACUNDO CASTILLO FAC, ALI FACP CCDS Ot E11.22 TYPE 2 DIABETES MELLITUS W DIABETIC MICA MINER 08/06/2019 FACUNDO CASTILLO FACC, ALI FACP CCDS Ot I12.9 HYPERTENSIVE CHRONIC KIDNEY DISEASE W ST 08/06/2019 FACUNDO CASTILLO FAC, ALI FACP CCDS Ot N18.4 CHRONIC KIDNEY DISEASE, STAGE 4 (SEVERE) 08/06/2019 COREY NGUYEN MD, Ot D63. 1 ANEMIA IN CHRONIC KIDNEY DISEASE 08/06/2019 COREY NGUYEN MD Ot E10. 21 TYPE 1 DIABETES MELLITUS WITH DIABETIC N 08/06/2019 COREY NGUYEN MD, Ot K58. 9 IRRITABLE BOWEL SYNDROME WITHOUT DIARRHE 08/06/2019 COREY NGUYEN MD, Ot N18. 3 CHRONIC KIDNEY DISEASE, STAGE 3 (MODERAT 08/06/2019 COREY NGUYEN MD, Ot Z79. 4 SPARE HAND (CURRENT) USE OF INSULIN 08/06/2019 COREY NGUYEN MD, Ot Z79.899 OTHER LONGTERM (CURRENT) DRUG THERAPY 08/06/2019 COREY NGUYEN MD, Ot Z87.891 PERSONAL HISTORY OF NICOTINE DEPENDENCE 08/06/2019 FADI YOUNG MD, Ot D63.1 ANEMIA IN CHRONIC KIDNEY DISEASE 08/06/2019 FADI YOUNG MD S Ot E10.9 TYPE 1 DIABETES MELLITUS WITHOUT COMPLIC 08/06/2019 FADI YOUNG MD S Ot E55.9 VITAMIN D DEFICIENCY, UNSPECIFIED 08/06/2019 FADI YOUNG MD S Ot I95.1 ORTHOSTATIC HYPOTENSION 08/06/2019 FADI YOUNG MD S Ot I95.89 OTHER HYPOTENSION 08/06/2019 FADI YOUNG MD S Ot N18.5 CHRONIC KIDNEY DISEASE, STAGE 5 08/06/2019 FADI YOUNG MD Ot N39.0 URINARY TRACT INFECTION, SITE NOT SPECIF 08/06/2019 ALAN CARABALLO Ot K58.0 IRRITABLE BOWEL SYNDROME WITH DIARRHEA 08/27/2019 COREY NGUYEN MD Ot D63. 1 ANEMIA IN CHRONIC KIDNEY DISEASE 08/27/2019 COREY NGUYEN MD Ot E10. 21 TYPE 1 DIABETES MELLITUS WITH DIABETIC N 08/27/2019 COREY NGUYEN MD Ot K58. 9 IRRITABLE BOWEL SYNDROME WITHOUT DIARRHE 08/27/2019 COREY NGUYEN MD, Ot N18. 3 CHRONIC KIDNEY DISEASE, STAGE 3 (MODERAT 08/27/2019 COREY NGUYEN MD Ot Z79. 4 SPARE HAND (CURRENT) USE OF INSULIN 08/27/2019 COREY NGUYEN MD, Ot Z79.899 OTHER LONGTERM (CURRENT) DRUG THERAPY 08/27/2019 COREY NGUYEN MD, Ot Z87.891 PERSONAL HISTORY OF NICOTINE DEPENDENCE 08/27/2019 NADINE CHEN A SOFTWARE QUALITY TESTER Ot 611.72 LUMP OR MASS IN BREAST 08/27/2019 LOR YOUNG MD Ot D64.9 ANEMIA, UNSPECIFIED 08/27/2019 LOR YOUNG MD Ot 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 MICA MINER 08/27/2019 LOR YOUNG MD Ot I12.9 HYPERTENSIVE CHRONIC KIDNEY DISEASE W ST 08/27/2019 OLR YOUNG MD Ot N18.3 CHRONIC KIDNEY DISEASE, STAGE 3 (MODERAT 08/27/2019 LOR YOUNG MD Ot R80.9 PROTEINURIA, UNSPECIFIED 08/27/2019 LOR YOUNG MD Ot D64.9 ANEMIA, UNSPECIFIED 08/27/2019 HANNAH CASTILLO, LOR Ot 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 MICA MINER 08/27/2019 LOR YOUNG MD Ot I12.9 HYPERTENSIVE CHRONIC KIDNEY DISEASE W ST 08/27/2019 LOR YOUNG MD Ot N18.3 CHRONIC KIDNEY DISEASE, STAGE 3 (MODERAT 08/27/2019 LOR YOUNG MD Ot R80.9 PROTEINURIA, UNSPECIFIED 08/27/2019 FADI YOUNG MD S Ot D64.9 ANEMIA, UNSPECIFIED 08/27/2019 ABOUL-MAGD MD, AHMED S Ot 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 MICA MINER 08/27/2019 HANNAH CASTILLO, AHMED S Ot I95.89 OTHER HYPOTENSION 08/27/2019 HANNAH CASTILLO, GONZALOMED S Ot N18.3 CHRONIC KIDNEY DISEASE, STAGE 3 (MODERAT 08/27/2019 HANNAH CASTILLO, FADI S Ot R80.9 PROTEINURIA, UNSPECIFIED 08/27/2019 HANNAH CASTILLO LOR Ot D64.9 ANEMIA, UNSPECIFIED 08/27/2019 HANNAH CASTILLO, LOR Ot E10.9 TYPE 1 DIABETES MELLITUS WITHOUT COMPLIC 08/27/2019 HANNAH CASTILLO, LOR Ot I95.89 OTHER HYPOTENSION 08/27/2019 LOR YOUNG MD Ot N18.3 CHRONIC KIDNEY DISEASE, STAGE 3 (MODERAT 08/27/2019 LOR YOUNG MD Ot R80.9 PROTEINURIA, UNSPECIFIED 08/27/2019 LOR YOUNG MD Ot D64.9 ANEMIA, UNSPECIFIED 08/27/2019 HANNAH CASTILLO, LOR Ot 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 MICA MINER 08/27/2019 HANNAH CASTILLO, LOR Ot I95.89 OTHER HYPOTENSION 08/27/2019 LOR YOUNG MD Ot N18.3 CHRONIC KIDNEY DISEASE, STAGE 3 (MODERAT 08/27/2019 LOR YOUNG MD Ot R80.9 PROTEINURIA, UNSPECIFIED 08/27/2019 FACUNDO CASTILLO FACC, ALI FACP CCDS Ot R06.02 SHORTNESS OF BREATH 08/27/2019 FACUNDO CASTILLO FACC, ALI FACP CCDS Ot R06.02 SHORTNESS OF BREATH 08/27/2019 KEVIN YOUNG MDINE Ot D64.9 ANEMIA, UNSPECIFIED 08/27/2019 KEVIN YOUNG MDINE Ot E10.9 TYPE 1 DIABETES MELLITUS WITHOUT COMPLIC 08/27/2019 HANNAH CASTILLO, LOR Ot I95.89 OTHER HYPOTENSION 08/27/2019 KEVIN YOUNG MDINE Ot N18.3 CHRONIC KIDNEY DISEASE, STAGE 3 (MODERAT 08/27/2019 LOR YOUNG MD Ot R80.9 PROTEINURIA, UNSPECIFIED 08/27/2019 KANNARALAYNA Pereyra OD Ot E11 .9 TYPE 2 DIABETES MELLITUS WITHOUT COMPLIC 08/27/2019 LOR YOUNG MD Ot D64.9 ANEMIA, UNSPECIFIED 08/27/2019 LOR YOUNG MD Ot 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 MICA MINER 08/27/2019 LOR YOUNG MD Ot I95.1 ORTHOSTATIC HYPOTENSION 08/27/2019 KEVIN YOUNG MDINE Ot I95.89 OTHER HYPOTENSION 08/27/2019 LOR YOUNG MD Ot R80.9 PROTEINURIA, UNSPECIFIED 08/27/2019 LOR YOUNG MD Ot D64.9 ANEMIA, UNSPECIFIED 08/27/2019 LOR YOUNG MD Ot E10.9 TYPE 1 DIABETES MELLITUS WITHOUT COMPLIC 08/27/2019 LOR YOUNG MD Ot I95.1 ORTHOSTATIC HYPOTENSION 08/27/2019 LOR YOUNG MD Ot N18.3 CHRONIC KIDNEY DISEASE, STAGE 3 (MODERAT 08/27/2019 LOR YOUNG MD Ot R80.9 PROTEINURIA, UNSPECIFIED 08/27/2019 LOR YOUNG MD Ot D64.9 ANEMIA, UNSPECIFIED 08/27/2019 LOR YOUNG MD Ot E10.9 TYPE 1 DIABETES MELLITUS WITHOUT COMPLIC 08/27/2019 LOR YOUNG MD Ot E55.9 VITAMIN D DEFICIENCY, UNSPECIFIED 08/27/2019 LOR YOUNG MD Ot I95.1 ORTHOSTATIC HYPOTENSION 08/27/2019 LOR YOUNG MD Ot I95.89 OTHER HYPOTENSION 08/27/2019 LOR YOUNG MD Ot N18.3 CHRONIC KIDNEY DISEASE, STAGE 3 (MODERAT 08/27/2019 LOR YOUNG MD Ot R80.9 PROTEINURIA, UNSPECIFIED 08/27/2019 REJI CASTILLO, DARNELL Johnson Ot E10.8 TYPE 1 DIABETES MELLITUS WITH UNSPECIFIE 08/27/2019 JAYSON CASTILLO, FADI Dozier Ot D64.9 ANEMIA, UNSPECIFIED 08/27/2019 FADI TYLER MD M Ot 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 MICA MINER 08/27/2019 GONZALO TYLER MDMED M Ot E55.9 VITAMIN D DEFICIENCY, UNSPECIFIED 08/27/2019 JAYSON CASTILLO, FADI Dozier Ot I95.1 ORTHOSTATIC HYPOTENSION 08/27/2019 FADI TYLER MD M Ot I95.89 OTHER HYPOTENSION 08/27/2019 JAYSON CASTILLO, FADI Dozier Ot N18.3 CHRONIC KIDNEY DISEASE, STAGE 3 (MODERAT 08/27/2019 JAYSON CASTILLO, FADI Dozier Ot R80.9 PROTEINURIA, UNSPECIFIED 08/27/2019 HANNAH CASTILLO, LOR Ot 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 MICA MINER 08/27/2019 LOR YOUNG MD Ot E55.9 VITAMIN D DEFICIENCY, UNSPECIFIED 08/27/2019 LOR YOUNG MD Ot I95.1 ORTHOSTATIC HYPOTENSION 08/27/2019 LOR YOUNG MD Ot I95.89 OTHER HYPOTENSION 08/27/2019 LOR YOUNG MD Ot N18.3 CHRONIC KIDNEY DISEASE, STAGE 3 (MODERAT 08/27/2019 LOR YOUNG MD Ot R80.9 PROTEINURIA, UNSPECIFIED 08/27/2019 REJI CASTILLO, ABEERoddy W Ot E10.65 TYPE 1 DIABETES MELLITUS WITH HYPERGLYCE 08/27/2019 LOR YOUNG MD Ot D64.9 ANEMIA, UNSPECIFIED 08/27/2019 KEVIN YOUNG MDINE Ot E10.9 TYPE 1 DIABETES MELLITUS WITHOUT COMPLIC 08/27/2019 LOR YOUNG MD Ot E55.9 VITAMIN D DEFICIENCY, UNSPECIFIED 08/27/2019 LOR YOUNG MD Ot I95.1 ORTHOSTATIC HYPOTENSION 08/27/2019 LOR YOUNG MD Ot I95.89 OTHER HYPOTENSION 08/27/2019 LOR YOUNG MD Ot N18.3 CHRONIC KIDNEY DISEASE, STAGE 3 (MODERAT 08/27/2019 LOR YOUNG MD Ot N39.0 URINARY TRACT INFECTION, SITE NOT SPECIF 08/27/2019 LOR YOUNG MD Ot R80.9 PROTEINURIA, UNSPECIFIED 08/27/2019 PRECIOUS [facility] FINISHING LAB TECHNICIAN Ot E10.9 TYPE 1 DIABETES MELLITUS WITHOUT COMPLIC 08/27/2019 PRECIOUS [employer] FINISHING LAB TECHNICIAN Ot I73.9 PERIPHERAL VASCULAR DISEASE, UNSPECIFIED 08/27/2019 PRECIOUS [employer]MED[employer] FINISHING LAB TECHNICIAN Ot I95.1 ORTHOSTATIC HYPOTENSION 08/27/2019 PRECIOUS OLMED[employer] FINISHING LAB TECHNICIAN Ot M79.89 OTHER SPECIFIED SOFT TISSUE DISORDERS 08/27/2019 ALAN CARABALLO FINISHING LAB TECHNICIAN Ot K58.0 IRRITABLE BOWEL SYNDROME WITH DIARRHEA 08/27/2019 LOR YOUNG MD Ot D64.9 ANEMIA, UNSPECIFIED 08/27/2019 LOR YOUNG MD Ot 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 MICA MINER 08/27/2019 LOR YOUNG MD Ot E55.9 VITAMIN D DEFICIENCY, UNSPECIFIED 08/27/2019 LOR YOUNG MD Ot I95.1 ORTHOSTATIC HYPOTENSION 08/27/2019 LOR YOUNG MD Ot I95.89 OTHER HYPOTENSION 08/27/2019 LOR YOUNG MD Ot N18.3 CHRONIC KIDNEY DISEASE, STAGE 3 (MODERAT 08/27/2019 LOR YOUNG MD Ot N39.0 URINARY TRACT INFECTION, SITE NOT SPECIF 08/27/2019 LOR YOUNG MD Ot R80.9 PROTEINURIA, UNSPECIFIED 08/27/2019 DELMAN DO, MIKIE B Ot R10.1 3 EPIGASTRIC PAIN 08/27/2019 DELMAN DO, MIKIE B Ot R11.0 NAUSEA 08/27/2019 DELMAN DO, MIKIE B Ot R19.7 DIARRHEA, UNSPECIFIED 08/27/2019 FADI YOUNG MD S Ot D64.9 ANEMIA, UNSPECIFIED 08/27/2019 FADI YOUNG MD S Ot 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 MICA MINER 08/27/2019 FADI YOUNG MD S Ot E55.9 VITAMIN D DEFICIENCY, UNSPECIFIED 08/27/2019 FADI YOUNG MD S Ot I95.1 ORTHOSTATIC HYPOTENSION 08/27/2019 FADI YOUNG MD S Ot I95.89 OTHER HYPOTENSION 08/27/2019 FADI YOUNG MD S Ot N18.3 CHRONIC KIDNEY DISEASE, STAGE 3 (MODERAT 08/27/2019 FADI YOUNG MD S Ot N39.0 URINARY TRACT INFECTION, SITE NOT SPECIF 08/27/2019 FADI YOUNG MD Ot R80.9 PROTEINURIA, UNSPECIFIED 08/27/2019 MIKIE SWIFT DO Ot Z01.8 18 ENCOUNTER FOR OTHER PREPROCEDURAL EXAMIN 08/27/2019 LOR YOUNG MD Ot D64.9 ANEMIA, UNSPECIFIED 08/27/2019 LOR YOUNG MD Ot E10.9 TYPE 1 DIABETES MELLITUS WITHOUT COMPLIC 08/27/2019 LOR YOUNG MD Ot E55.9 VITAMIN D DEFICIENCY, UNSPECIFIED 08/27/2019 LOR YOUNG MD Ot I95.1 ORTHOSTATIC HYPOTENSION 08/27/2019 LOR YOUNG MD Ot I95.89 OTHER HYPOTENSION 08/27/2019 LOR YOUNG MD Ot N18.3 CHRONIC KIDNEY DISEASE, STAGE 3 (MODERAT 08/27/2019 LOR YOUNG MD Ot N39.0 URINARY TRACT INFECTION, SITE NOT SPECIF 08/27/2019 LOR YOUNG MD Ot R80.9 PROTEINURIA, UNSPECIFIED 08/27/2019 FACUNDO CASTILLO FACC, ALI FACP CCDS Ot E11.22 TYPE 2 DIABETES MELLITUS W DIABETIC MICA MINER 08/27/2019 FACUNDO CASTILLO FACC, ALI FACP CCDS Ot I12.9 HYPERTENSIVE CHRONIC KIDNEY DISEASE W ST 08/27/2019 FACUNDO CASTILLO FACC, ALI FACP CCDS Ot N18.4 CHRONIC KIDNEY DISEASE, STAGE 4 (SEVERE) 08/27/2019 COREY NGUYEN MD Ot D63. 1 ANEMIA IN CHRONIC KIDNEY DISEASE 08/27/2019 COREY NGUYEN MD Ot E10. 21 TYPE 1 DIABETES MELLITUS WITH DIABETIC N 08/27/2019 COREY NGUYEN MD Ot K58. 9 IRRITABLE BOWEL SYNDROME WITHOUT DIARRHE 08/27/2019 COREY NGUYEN MD, Ot N18. 3 CHRONIC KIDNEY DISEASE, STAGE 3 (MODERAT 08/27/2019 COREY NGUYEN MD, Ot Z79. 4 SPARE HAND (CURRENT) USE OF INSULIN 08/27/2019 COREY NGUYEN MD, Ot Z79.899 OTHER SPARE HAND (CURRENT) DRUG THERAPY 08/27/2019 COREY NGUYEN MD, Ot87.891 PERSONAL HISTORY OF NICOTINE DEPENDENCE 08/27/2019 HANNAH CASTILLO, FADI S Ot D63.1 ANEMIA IN CHRONIC KIDNEY DISEASE 08/27/2019 FADI YOUNG MD S Ot E10.9 TYPE 1 DIABETES MELLITUS WITHOUT COMPLIC 08/27/2019 FADI YOUNG MD S Ot E55.9 VITAMIN D DEFICIENCY, UNSPECIFIED 08/27/2019 FADI YOUNG MD S Ot I95.1 ORTHOSTATIC HYPOTENSION 08/27/2019 FADI YOUNG MD S Ot I95.89 OTHER HYPOTENSION 08/27/2019 FADI YOUNG MD S Ot N18.5 CHRONIC KIDNEY DISEASE, STAGE 5 08/27/2019 FADI YOUNG MD S Ot N39.0 URINARY TRACT INFECTION, SITE NOT SPECIF 08/31/2019 COREY NGUYEN MD, Ot D63. 1 ANEMIA IN CHRONIC KIDNEY DISEASE 08/31/2019 COREY NGUYEN MD Ot E10. 21 TYPE 1 DIABETES MELLITUS WITH DIABETIC N 08/31/2019 COREY NGUYEN MD Ot K58. 9 IRRITABLE BOWEL SYNDROME WITHOUT DIARRHE 08/31/2019 COREY NGUYEN MD, Ot N18. 3 CHRONIC KIDNEY DISEASE, STAGE 3 (MODERAT 08/31/2019 COREY NGUYEN MD, Ot Z79. 4 SPARE HAND (CURRENT) USE OF INSULIN 08/31/2019 COREY NGUYEN MD, Ot Z79.899 OTHER SPARE HAND (CURRENT) DRUG THERAPY 08/31/2019 OCREY NGUYEN MD, Ot Z87.891 PERSONAL HISTORY OF NICOTINE DEPENDENCE 09/07/2019 FADI YOUNG MD S Ot 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 MICA MINER 09/07/2019 FADI YOUNG MD S Ot E10.65 TYPE 1 DIABETES MELLITUS WITH HYPERGLYCE 09/07/2019 FADI YOUNG MD S Ot N18.3 CHRONIC KIDNEY DISEASE, STAGE 3 (MODERAT 09/07/2019 FADI YOUNG MD S Ot R18.8 OTHER ASCITES 09/23/2019 AFDI YOUNG MD S Ot 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 MICA MINER 09/23/2019 FADI YOUNG MD S Ot E10.65 TYPE 1 DIABETES MELLITUS WITH HYPERGLYCE 09/23/2019 HANNAH CASTILLO, FADI S Ot N18.3 CHRONIC KIDNEY DISEASE, STAGE 3 (MODERAT 09/23/2019 HANNAH CASTILLO, FADI S Ot R18.8 OTHER ASCITES 09/23/2019 REJI CASTILLO, DARNELL W Ot 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 MICA MINER 09/23/2019 REJI CASTILLO, DARNELL W Ot E10.65 TYPE 1 DIABETES MELLITUS WITH HYPERGLYCE 09/23/2019 REJI CASTILLO, DARNELL W Ot N18.3 CHRONIC KIDNEY DISEASE, STAGE 3 (MODERAT 10/15/2019 GREENE DO, DUANE L Ot E10.1 0 TYPE 1 DIABETES MELLITUS WITH KETOACIDOS 10/15/2019 GREENE DO, DUANE L Ot F32.9 MAJOR DEPRESSIVE DISORDER, SINGLE EPISOD 10/15/2019 GREENE DO, DUANE L Ot K58.9 IRRITABLE BOWEL SYNDROME WITHOUT DIARRHE 10/15/2019 GREENE DO, DUANE L Ot R73.9 HYPERGLYCEMIA, UNSPECIFIED 10/15/2019 GREENE DO, DUANE L Ot Z79.4 SPARE HAND (CURRENT) USE OF INSULIN 10/15/2019 GREENE DO, DUANE L Ot Z88.8 ALLERGY STATUS TO OTH DRUG/MEDS/BIOL SUB 10/15/2019 GREENE DO, DUANE L Ot Z98.5 1 TUBAL LIGATION STATUS 10/15/2019 GREENE DO, DUANE L Ot Z99.2 DEPENDENCE ON RENAL DIALYSIS 10/19/2019 GREENE DO, DUANE L Ot E10.1 0 TYPE 1 DIABETES MELLITUS WITH KETOACIDOS 10/19/2019 GREENE DO, DUANE L Ot F32.9 MAJOR DEPRESSIVE DISORDER, SINGLE EPISOD 10/19/2019 GREENE DO, DUANE L Ot K58.9 IRRITABLE BOWEL SYNDROME WITHOUT DIARRHE 10/19/2019 GREENE DO, DUANE L Ot R73.9 HYPERGLYCEMIA, UNSPECIFIED 10/19/2019 GREENE DO, DUANE L Ot Z79.4 LONGTERM (CURRENT) USE OF INSULIN 10/19/2019 GREENE DO, DUANE L Ot Z88.8 ALLERGY STATUS TO OTH DRUG/MEDS/BIOL SUB 10/19/2019 GREENE DO, DUANE L Ot Z98.5 1 TUBAL LIGATION STATUS 10/19/2019 DUANE GREENE DO L Ot Z99.2 DEPENDENCE ON RENAL DIALYSIS Procedures Code Description [place] [address] ROUT INE VENIPUNCTURE 04/08/2013 43053 MICR O ALBUMIN-IN HOUSE 04/08/2013 28966 CBC 04/08/2013 47331 CMP 04/08/2013 49008 LIPI D PANEL 04/08/2013 [id number] GF R CALC (RESULT ONLY) 04/08/2013 39542 MICR OALBUMIN 04/08/2013 28929 A1C (RML) 04/09/2013 02787 ROUT INE VENIPUNCTURE 07/20/2013 12745 CMP 07/20/2013 98287 LIPI D PANEL 07/20/2013 21440 A1C (IN-HOUSE) 07/20/2013 57516 MICR O ALBUMIN-IN HOUSE 08/03/2013 04638 A1C (IN-HOUSE) 08/03/2013 58485 CULT URE URINE 08/05/2013 73252 ROUT INE VENIPUNCTURE 08/14/2013 99808 EKG, TRACING (IN-HOUSE) 08/14/2013 52615 MAGNESIUM 08/14/2013 17724 TSH 08/14/2013 88496 CULT URE URINE 08/15/2013 22297 STRE SS TEST, CARDIAC (SPECIFY TYPE) 08/26/2013 55939 ECHO 2D 08/26/2013 77334 VENO US DOPPLER UNILATERAL/LIMITED 10/28/2013 59384 OXIMETRY 10/28/2013 86913 ROUT INE VENIPUNCTURE 11/09/2013 51962 MICR O ALBUMIN-IN HOUSE 11/09/2013 26971 A1C (IN-HOUSE) 11/09/2013 14481 UA L SYLVIA DIP 11/09/2013 62699 CBC 11/09/2013 [id number] GF R CALC (RESULT ONLY) 11/09/2013 76188 CMP 11/09/2013 85209 LIPI D PANEL 11/09/2013 03992 TSH 11/09/2013 30790 MICR OALBUMIN 11/09/2013 06145 MICR O ALBUMIN-IN HOUSE 03/02/2014 69795 A1C (IN-HOUSE) 03/02/2014 83448 MICR OALBUMIN 03/03/2014 84174 ROUT INE VENIPUNCTURE 03/23/2014 [id number] GF R CALC (RESULT ONLY) 03/23/2014 32254 CMP 03/23/2014 41846 IRON SERUM 03/23/2014 54550 IRON BNDNG CAP 03/23/2014 10225 CBC 03/23/2014 50756 FERRITIN 03/23/2014 93441 VIT B 12 03/23/2014 21459 FOLATE 03/23/2014 General S Patricia Saavedra 03/24/2014 IRGROUP IR ON GROUP (Iron,TIBC, Ferritin) 03/24/2014 99409 EKG, TRACING (IN-HOUSE) 04/28/2014 24512 ROUT INE VENIPUNCTURE 05/13/2014 68755 CBC 05/13/2014 14431 LIPI D PANEL 05/13/2014 [id number] IM MATURE PLATELET FRACTION (RESULT ONLY) 05/13/2014 24394 RETI CULOCYTE COUNT 05/13/2014 [id number] AN EM JIC 05/14/2014 [id number] HE MATOLOGY OTHER REPORT 05/14/2014 ANEMIAANA ANEMIA ANALYZER 05/18/2014 35029 ROUT INE VENIPUNCTURE 07/08/2014 92618 A1C (IN-HOUSE) 07/08/2014 53758 CBC 07/08/2014 68622 CMP 07/08/2014 [id number] GF R CALC (RESULT ONLY) 07/08/2014 24902 MICR OALBUMIN 07/08/2014 59770 MAMM OGRAM DX, DIONNE 07/21/2014 45038 PAP SMEAR 07/21/2014 08951 OXIMETRY 07/21/2014 Medical O [facility] 07/21/2014 Q0091 PAP SMEAR OBTAIN SMEAR 07/21/2014 95734 MRI BREAST LEFT 08/02/2014 88083 ROUT INE VENIPUNCTURE 11/22/2014 90706 A1C (IN-HOUSE) 11/22/2014 13963 PREG AMBREEN TEST, URINE (IN- HOUSE) 11/22/2014 49656 MICR OALBUMIN 11/22/2014 [id number] GF R CALC (RESULT ONLY) 11/22/2014 98090 BMP 11/22/2014 32750 LIPI D PANEL 11/22/2014 05242 OXIMETRY 02/15/2015 89953 A1C (IN-HOUSE) 03/16/2015 66486 MICR OALBUMIN 03/17/2015 Results Test Result Range Automated blood complete blood count (he mogram) panel - 08/03/16 12:25 Blood leukocytes automated count (number/volume) 8.3 10*3/uL 4.3-11.0 Blood erythrocytes automated count (number/volume) 3.44 10*6/uL 4.35-5.85 Venous blood hemoglobin measurement (mass/volume) 10.5 g/dL 11.5-16.0 Blood hematocrit (volume fraction) 31 % 35-52 Automated erythrocyte mean corpuscular volume 91 [ foz_us] 80-99 Automated erythrocyte mean corpuscular h emoglobin (mass per erythrocyte) 31 pg 25-34 Automated erythrocyte mean corpuscular h emoglobin concentration measurement (mass/volume) 34 g/dL 32-36 Automated erythrocyte distribution width ratio 13. 1 % 10.0- 14.5 Automated blood platelet count (count/volume) 221 10*3/uL 130-400 Automated blood platelet mean volume measurement 11.1 [foz_us] 7.4-10.4 Complete urinalysis with reflex to cultu re - 08/03/16 12:25 Urine color determination YELLOW NRG Urine clarity determination CLEAR NR G Urine pH measurement by test strip 7 5-9 Specific gravity of urine by test strip 1.005 1.016-1.022 Urine protein assay by test strip, semi-quantitative 2+ NEGATIVE Urine glucose detection by automated test strip 4+ NEGATIVE Erythrocytes detection in urine sediment by light micr oscopy NEGATIVE NEGATIVE Urine ketones detection by automated test strip NE GATIVE NEGATIVE Urine nitrite detection by test strip NEGATIVE NEGATIVE Urine total bilirubin detection by test strip NEGA TIVE NEGATIVE Urine urobilinogen measurement by automated test strip (mass/volume) NORMAL NORMAL Urine leukocyte esterase detection by dipstick NEG ATIVE NEGATIVE Automated urine sediment erythrocyte cou nt by microscopy (number/high power field) NONE NRG Automated urine sediment leukocyte count by microscopy (number/high power field) [HPF] NRG Bacteria detection in urine sediment by light microsco py FEW NRG Squamous epithelial cells detection in u rine sediment by light microscopy 25-50 NRG Crystals detection in urine sediment by light microsco py NONE NRG Casts detection in urine sediment by light microscopy NONE NRG Mucus detection in urine sediment by light microscopy NEGATIVE NRG Complete urinalysis with reflex to culture NO NRG Urine protein/creatinine mass ratio - 12:25 Urine protein measurement (mass/volume) 37 mg/dL 6-12 Urine creatinine measurement (mass/volume) 71 mg/d L 30-125 Urine protein/creatinine mass ratio 0.52 NRG Serum or plasma renal function panel (Na , K, Cl, CO2, BUN, Cr, glucose,Ca, phos, alb) - 08/03/16 12:25 Serum or plasma sodium measurement (moles/volume) 131 mmol/L 135-145 Serum or plasma potassium measurement (moles/volume) 6.0 mmol/L 3.6-5.0 Serum or plasma chloride measurement (moles/volume) 101 mmol/L 98-107 Carbon dioxide 22 mmol/L 21-32 Serum or plasma anion gap determination (moles/volume) 8 mmol/L 5-14 Serum or plasma urea nitrogen measurement (mass/volume ) 29 mg/dL 7-18 Serum or plasma creatinine measurement (mass/volume) 2.32 mg/dL 0.60-1.30 Serum or plasma urea nitrogen/creatinine mass ratio 13 NRG Serum or plasma creatinine measurement w ith calculation of estimated glomerular filtration rate 24 NRG Serum or plasma glucose measurement (mass/volume) 543 mg/dL 70-105 Serum or plasma calcium measurement (mass/volume) 8.6 mg/dL 8.5-10.1 Serum or plasma albumin measurement (mass/volume) 3.7 g/dL 3.2-4.5 Serum or plasma phosphate measurement (mass/volume) 2.3 mg/dL 2.3-4.7 Serum or plasma uric acid measurement (m ass/volume) - 08/03/16 12:25 Serum or plasma uric acid measurement (mass/volume) 5.8 mg/dL 2.6-7.2 Comp. Metabolic Panel (14) - 08/06/16 08 :44 Glucose, Serum 219 mg/dL 65-99 BUN 19 [...] 0-32 Serum or plasma renal function panel (Na , K, Cl, CO2, BUN, Cr, glucose,Ca, phos, alb) - 08/15/16 13:30 Serum or plasma sodium measurement (moles/volume) 141 mmol/L 135-145 Serum or plasma potassium measurement (moles/volume) 4.5 mmol/L 3.6-5.0 Serum or plasma chloride measurement (moles/volume) 111 mmol/L 98-107 Carbon dioxide 27 mmol/L 21-32 Serum or plasma anion gap determination (moles/volume) 3 mmol/L 5-14 Serum or plasma urea nitrogen measurement (mass/volume ) 20 mg/dL 7-18 Serum or plasma creatinine measurement (mass/volume) 1.51 mg/dL 0.60-1.30 Serum or plasma urea nitrogen/creatinine mass ratio 13 NRG Serum or plasma creatinine measurement w ith calculation of estimated glomerular filtration rate 39 NRG Serum or plasma glucose measurement (mass/volume) 122 mg/dL 70-105 Serum or plasma calcium measurement (mass/volume) 8.6 mg/dL 8.5-10.1 Serum or plasma albumin measurement (mass/volume) 3.4 g/dL 3.2-4.5 Serum or plasma phosphate measurement (mass/volume) 3.2 mg/dL 2.3-4.7 Complete blood count (CBC) with automate d white blood cell (WBC) differential - 10/31/16 12:58 Blood leukocytes automated count (number/volume) 6.7 10*3/uL 4.3-11.0 Blood erythrocytes automated count (number/volume) 3.61 10*6/uL 4.35-5.85 Venous blood hemoglobin measurement (mass/volume) 10.9 g/dL 11.5-16.0 Blood hematocrit (volume fraction) 33 % 35-52 Automated erythrocyte mean corpuscular volume 90 [ foz_us] 80-99 Automated erythrocyte mean corpuscular h emoglobin (mass per erythrocyte) 30 pg 25-34 Automated erythrocyte mean corpuscular h emoglobin concentration measurement (mass/volume) 34 g/dL 32-36 Automated erythrocyte distribution width ratio 13. 0 % 10.0- 14.5 Automated blood platelet count (count/volume) 216 10*3/uL [...] 10*3 1.0-4.0 Blood monocytes automated count (number/volume) 0. 5 10*3 0.0-1.0 Automated eosinophil count 0.4 10*3/uL 0 .0-0.3 Automated blood basophil count (count/volume) 0.0 10*3/uL 0.0-0.1 Urine protein/creatinine mass ratio - 12:58 Urine protein measurement (mass/volume) 122 mg/dL 6-12 Urine creatinine measurement (mass/volume) 65 mg/d L 30-125 Urine protein/creatinine mass ratio 1.88 NRG Serum or plasma renal function panel (Na , K, Cl, CO2, BUN, Cr, glucose,Ca, phos, alb) - 10/31/16 12:58 Serum or plasma sodium measurement (moles/volume) 139 mmol/L 135-145 Serum or plasma potassium measurement (moles/volume) 4.1 mmol/L 3.6-5.0 Serum or plasma chloride measurement (moles/volume) 109 mmol/L 98-107 Carbon dioxide 23 mmol/L 21-32 Serum or plasma anion gap determination (moles/volume) 7 mmol/L 5-14 Serum or plasma urea nitrogen measurement (mass/volume ) 21 mg/dL 7-18 Serum or plasma creatinine measurement (mass/volume) 1.68 mg/dL 0.60-1.30 Serum or plasma urea nitrogen/creatinine mass ratio 13 NRG Serum or plasma creatinine measurement w ith calculation of estimated glomerular filtration rate 35 NRG Serum or plasma glucose measurement (mass/volume) 58 mg/dL 70-105 Serum or plasma calcium measurement (mass/volume) 8.4 mg/dL 8.5-10.1 Serum or plasma albumin measurement (mass/volume) 3.5 g/dL 3.2-4.5 Serum or plasma phosphate measurement (mass/volume) 3.8 mg/dL 2.3-4.7 Hemoglobin A1c - 05/22/17 13:05 Hemoglobin A1c 6.3 % 4.5-6.2 Automated blood complete blood count (he mogram) panel - 06/17/17 12:55 Blood leukocytes automated count (number/volume) 8.2 10*3/uL 4.3-11.0 Blood erythrocytes automated count (number/volume) 3.44 10*6/uL 4.35-5.85 Venous blood hemoglobin measurement (mass/volume) 10.3 g/dL 11.5-16.0 Blood hematocrit (volume fraction) 31 % 35-52 Automated erythrocyte mean corpuscular volume 91 [ foz_us] 80-99 Automated erythrocyte mean corpuscular h emoglobin (mass per erythrocyte) 30 pg 25-34 Automated erythrocyte mean corpuscular h emoglobin concentration measurement (mass/volume) 33 g/dL 32-36 Automated erythrocyte distribution width ratio 14. 1 % 10.0- 14.5 Automated blood platelet count (count/volume) 220 10*3/uL 130-400 Automated blood platelet mean volume measurement 10.7 [foz_us] 7.4-10.4 Serum or plasma renal function panel (Na , K, Cl, CO2, BUN, Cr, glucose,Ca, phos, alb) - 06/17/17 12:55 Serum or plasma sodium measurement (moles/volume) 138 mmol/L 135-145 Serum or plasma potassium measurement (moles/volume) 4.5 mmol/L 3.6-5.0 Serum or plasma chloride measurement (moles/volume) 112 mmol/L 98-107 Carbon dioxide 19 mmol/L 21-32 Serum or plasma anion gap determination (moles/volume) 7 mmol/L 5-14 Serum or plasma urea nitrogen measurement (mass/volume ) 32 mg/dL 7-18 Serum or plasma creatinine measurement (mass/volume) 2.22 mg/dL 0.60-1.30 Serum or plasma urea nitrogen/creatinine mass ratio 14 NRG Serum or plasma creatinine measurement w ith calculation of estimated glomerular filtration rate 25 NRG Serum or plasma glucose measurement (mass/volume) 179 mg/dL 70-105 Serum or plasma calcium measurement (mass/volume) 8.4 mg/dL 8.5-10.1 Serum or plasma albumin measurement (mass/volume) 3.7 g/dL 3.2-4.5 Serum or plasma phosphate measurement (mass/volume) 3.5 mg/dL 2.3-4.7 25-hydroxyvitamin D measurement - 12:55 25-hydroxy vitamin D measurement 18 % 30-100 Complete urinalysis with reflex to cultu re - 06/17/17 13:05 Urine color determination YELLOW NRG Urine clarity determination CLEAR NR G Urine pH measurement by test strip 6 5-9 Specific gravity of urine by test strip 1.015 1.016-1.022 Urine protein assay by test strip, semi-quantitative 3+ NEGATIVE Urine glucose detection by automated test strip NE GATIVE NEGATIVE Erythrocytes detection in urine sediment by light micr oscopy NEGATIVE NEGATIVE Urine ketones detection by automated test strip NE GATIVE NEGATIVE Urine nitrite detection by test strip NEGATIVE NEGATIVE Urine total bilirubin detection by test strip NEGA TIVE NEGATIVE Urine urobilinogen measurement by automated test strip (mass/volume) NORMAL NORMAL Urine leukocyte esterase detection by dipstick NEG ATIVE NEGATIVE Automated urine sediment erythrocyte cou nt by microscopy (number/high power field) NONE NRG Automated urine sediment leukocyte count by microscopy (number/high power field) RARE NRG Bacteria detection in urine sediment by light microsco py TRACE NRG Squamous epithelial cells detection in u rine sediment by light microscopy 10-25 NRG Crystals detection in urine sediment by light microsco py NONE NRG Casts detection in urine sediment by light microscopy NONE NRG Mucus detection in urine sediment by light microscopy NEGATIVE NRG Complete urinalysis with reflex to culture NO NRG Urine protein/creatinine mass ratio - 13:05 Urine protein measurement (mass/volume) 46 mg/dL 6-12 Urine creatinine measurement (mass/volume) 90 mg/d L 30-125 Urine protein/creatinine mass ratio 0.51 NRG Bacterial urine culture - 08/26/17 12:10 Bacterial urine culture [id number] NRG COLONY COUNT >100,000/ML NRG FTX;REPORTABLE PLUS, MIXED CHRISTIANE <10,000/ML NRG Complete blood count (CBC) with automate d white blood cell (WBC) differential - 11/20/17 15:00 Blood leukocytes automated count (number/volume) 8.5 10*3/uL 4.3-11.0 Blood erythrocytes automated count (number/volume) 3.59 10*6/uL 4.35-5.85 Venous blood hemoglobin measurement (mass/volume) 10.8 g/dL 11.5-16.0 Blood hematocrit (volume fraction) 33 % 35-52 Automated erythrocyte mean corpuscular volume 91 [ foz_us] 80-99 Automated erythrocyte mean corpuscular h emoglobin (mass per erythrocyte) 30 pg 25-34 Automated erythrocyte mean corpuscular h emoglobin concentration measurement (mass/volume) 33 g/dL 32-36 Automated erythrocyte distribution width ratio 13. 3 % 10.0- 14.5 Automated blood platelet count (count/volume) 213 10*3/uL [...] 10*3 1.0-4.0 Blood monocytes automated count (number/volume) 0. 6 10*3 0.0-1.0 Automated eosinophil count 0.4 10*3/uL 0 .0-0.3 Automated blood basophil count (count/volume) 0.1 10*3/uL 0.0-0.1 SUREPATH PAP AND HPV mRNA E6/E7 - 16:48 CLINICAL INFORMATION: NRG LMP: 12/16/2017 NRG PREV. PAP: 2014 NRG PREV. BX: NONE NRG SOURCE: [employer]ervix NRG STATEMENT OF ADEQUACY: NRG INTERPRETATION/RESULT: NRG GINNING OPERATOR: [place]ETT HPV mRNA E6/E7, SUREPATH VIAL Not Detected NOT DETECTED Automated blood complete blood count (he mogram) panel - 02/21/18 11:31 Blood leukocytes automated count (number/volume) 9.3 10*3/uL 4.3-11.0 Blood erythrocytes automated count (number/volume) 3.31 10*6/uL 4.35-5.85 Venous blood hemoglobin measurement (mass/volume) 9.9 g/dL 11.5-16.0 Blood hematocrit (volume fraction) 30 % 35-52 Automated erythrocyte mean corpuscular volume 90 [ foz_us] 80-99 Automated erythrocyte mean corpuscular h emoglobin (mass per erythrocyte) 30 pg 25-34 Automated erythrocyte mean corpuscular h emoglobin concentration measurement (mass/volume) 33 g/dL 32-36 Automated erythrocyte distribution width ratio 13. 2 % 10.0- 14.5 Automated blood platelet count (count/volume) 163 10*3/uL 130-400 Automated blood platelet mean volume measurement 10.9 [foz_us] 7.4-10.4 Serum or plasma renal function panel (Na , K, Cl, CO2, BUN, Cr, glucose,Ca, phos, alb) - 02/21/18 11:31 Serum or plasma sodium measurement (moles/volume) 141 mmol/L 135-145 Serum or plasma potassium measurement (moles/volume) 4.1 mmol/L 3.6-5.0 Serum or plasma chloride measurement (moles/volume) 112 mmol/L 98-107 Carbon dioxide 24 mmol/L 21-32 Serum or plasma anion gap determination (moles/volume) 5 mmol/L 5-14 Serum or plasma urea nitrogen measurement (mass/volume ) 35 mg/dL 7-18 Serum or plasma creatinine measurement (mass/volume) 2.16 mg/dL 0.60-1.30 Serum or plasma urea nitrogen/creatinine mass ratio 16 NRG Serum or plasma creatinine measurement w ith calculation of estimated glomerular filtration rate 26 NRG Serum or plasma glucose measurement (mass/volume) 124 mg/dL 70-105 Serum or plasma calcium measurement (mass/volume) 8.2 mg/dL 8.5-10.1 Serum or plasma albumin measurement (mass/volume) 3.5 g/dL 3.2-4.5 Serum or plasma phosphate measurement (mass/volume) 3.1 mg/dL 2.3-4.7 Serum or plasma uric acid measurement (m ass/volume) - 02/21/18 11:31 Serum or plasma uric acid measurement (mass/volume) 6.2 mg/dL 2.6-7.2 Magnesium - 02/21/18 11:31 Magnesium 2.0 mg/dL 1.8-2.4 Complete urinalysis with reflex to cultu re - 02/21/18 11:37 Urine color determination YELLOW NRG Urine clarity determination CLEAR NR G Urine pH measurement by test strip 7 5-9 Specific gravity of urine by test strip 1.010 1.016-1.022 Urine protein assay by test strip, semi-quantitative 2+ NEGATIVE Urine glucose detection by automated test strip NE GATIVE NEGATIVE Erythrocytes detection in urine sediment by light micr oscopy 1+ NEGATIVE Urine ketones detection by automated test strip NE GATIVE NEGATIVE Urine nitrite detection by test strip NEGATIVE NEGATIVE Urine total bilirubin detection by test strip NEGA TIVE NEGATIVE Urine urobilinogen measurement by automated test strip (mass/volume) NORMAL NORMAL Urine leukocyte esterase detection by dipstick NEG ATIVE NEGATIVE Automated urine sediment erythrocyte cou nt by microscopy (number/high power field) NONE NRG Automated urine sediment leukocyte count by microscopy (number/high power field) NONE NRG Bacteria detection in urine sediment by light microsco py TRACE NRG Squamous epithelial cells detection in u rine sediment by light microscopy 2-5 NRG Crystals detection in urine sediment by light microsco py NONE NRG Casts detection in urine sediment by light microscopy NONE NRG Mucus detection in urine sediment by light microscopy NEGATIVE NRG Complete urinalysis with reflex to culture NO NRG Urine protein/creatinine mass ratio - 11:37 Urine protein measurement (mass/volume) 26 mg/dL 6-12 Urine creatinine measurement (mass/volume) 78 mg/d L 30-125 Urine protein/creatinine mass ratio 0.33 NRG THYROID STIMULATING HORMONE - 03/04/18 0 8:37 THYROID STIMULATING HORMONE 3.79 u[iU]/mL 0.35-4.94 Serum or plasma thyroxine (T4) free castro urement (mass/volume) - 03/04/18 08:37 Serum or plasma thyroxine (T4) free measurement (mass/ volume) 1.22 ng/dL 0.70-1.48 Adrenocorticotropic hormone (ACTH) measu rement - 03/04/18 08:37 Adrenocorticotropic hormone (ACTH) measurement 59 pg/mL 5-27 Serum or plasma thyroperoxidase antibody assay (units/volume) - 03/04/18 08:37 Serum or plasma thyroperoxidase antibody assay (units/ volume) 25.69 % 0.00-100.00 Morning cortisol measurement - 03/04/18 08:37 Cortisol AM 40.8 % 6.0-28.0 Cyanocobalamin measurement - 03/04/18 08 :37 Vitamin B12 1929 pg/mL 200-1000 [id number] - 03/04/18 08:37 Serum tissue transglutaminase IgA antibody detection <20.0 0.0-19.9 Serum gliadin IgA antibody assay (units/volume) < % 0.0-19.9 Gliadin IgG antibody assay < % 0.0 -19.9 Serum or plasma IgA measurement (mass/volume) 144 % 71-263 Gastric fluid parietal cell antibody det ection by immunofluorescence - 03/04/18 08:37 Gastric parietal cell antibody titer < <1:20 ADRENAL ANTIBODY SCREEN T TITE - 8 08:37 [id number] NEGATIVE NRG Urine beta human chorionic gonadotropin (hCG) measurement - 04/25/18 06:42 Urine beta human chorionic gonadotropin (hCG) measurem ent NEGATIVE NEGATIVE Bacterial urine culture - 06/04/18 15:05 Bacterial urine culture [facility] NRG COLONY COUNT . NRG FTX;REPORTABLE SUSCEPTIBILITY REPORTED 1205, 7-13- 18 [facility] Sensitivity Panel - 06/04/18 15:05 Gentamicin susceptibility test by minimum inhibitory c oncentration <= NRG Trimethoprim/sulfamethoxazole susceptibi lity test by minimum inhibitoryconcentration <= NRG Levofloxacin susceptibility test by minimum inhibitory concentration <= NRG Ampicillin susceptibility test by minimum inhibitory c oncentration <= NRG Cefazolin susceptibility test by minimum inhibitory co ncentration 2 NRG Ceftriaxone susceptibility test by minimum inhibitory concentration <= NRG Ciprofloxacin susceptibility test by minimum inhibitor y concentration <= NRG Meropenem susceptibility test by minimum inhibitory co ncentration <= NRG Nitrofurantoin susceptibility test by mi nimum inhibitory concentration <= NRG Amoxicillin and clavulanate potassium susc LEXX = NRG Urine beta human chorionic gonadotropin (hCG) measurement - 06/06/18 09:06 Urine beta human chorionic gonadotropin (hCG) measurem ent NEGATIVE NEGATIVE Serum or plasma intact pararthyroid horm one measurement (mass/volume) - 08/05/18 13:45 Serum or plasma intact parathyroid hormone measurement (mass/volume) 175.2 pg/mL 9.0-77.0 Bio-intact parathyroid hormone (PTH) measurement with calcium 9.0 % 8.5-10.5 VITAMIN D 25-HYDROXY - 08/05/18 13:45 VITAMIN D 25-HYDROXY (TOTAL) 44.9 % 3 0.0-100.0 Automated blood complete blood count (he mogram) panel - 08/05/18 13:45 Blood leukocytes automated count (number/volume) 6.2 10*3/uL 4.3-11.0 Blood erythrocytes automated count (number/volume) 3.37 10*6/uL 4.35-5.85 Venous blood hemoglobin measurement (mass/volume) 10.5 g/dL 11.5-16.0 Blood hematocrit (volume fraction) 31 % 35-52 Automated erythrocyte mean corpuscular volume 92 [ foz_us] 80-99 Automated erythrocyte mean corpuscular h emoglobin (mass per erythrocyte) 31 pg 25-34 Automated erythrocyte mean corpuscular h emoglobin concentration measurement (mass/volume) 34 g/dL 32-36 Automated erythrocyte distribution width ratio 13. 8 % 10.0- 14.5 Automated blood platelet count (count/volume) 219 10*3/uL 130-400 Automated blood platelet mean volume measurement 10.8 [foz_us] 7.4-10.4 Urine protein/creatinine mass ratio - 13:45 Urine protein measurement (mass/volume) 46 mg/dL 6-12 Urine creatinine measurement (mass/volume) 95 mg/d L 30-125 Urine protein/creatinine mass ratio 0.48 NRG Serum or plasma renal function panel (Na , K, Cl, CO2, BUN, Cr, glucose,Ca, phos, alb) - 08/05/18 13:45 Serum or plasma sodium measurement (moles/volume) 141 mmol/L 135-145 Serum or plasma potassium measurement (moles/volume) 4.6 mmol/L 3.6-5.0 Serum or plasma chloride measurement (moles/volume) 113 mmol/L 98-107 Carbon dioxide 21 mmol/L 21-32 Serum or plasma anion gap determination (moles/volume) 7 mmol/L 5-14 Serum or plasma urea nitrogen measurement (mass/volume ) 43 mg/dL 7-18 Serum or plasma creatinine measurement (mass/volume) 2.62 mg/dL 0.60-1.30 Serum or plasma urea nitrogen/creatinine mass ratio 16 NRG Serum or plasma creatinine measurement w ith calculation of estimated glomerular filtration rate 21 NRG Serum or plasma glucose measurement (mass/volume) 72 mg/dL 70-105 Serum or plasma calcium measurement (mass/volume) 9.2 mg/dL 8.5-10.1 Serum or plasma albumin measurement (mass/volume) 3.9 g/dL 3.2-4.5 Serum or plasma phosphate measurement (mass/volume) 2.9 mg/dL 2.3-4.7 Serum or plasma uric acid measurement (m ass/volume) - 08/05/18 13:45 Serum or plasma uric acid measurement (mass/volume) 6.4 mg/dL 2.6-7.2 [id number] - 10/07/18 14:05 Serum tissue transglutaminase IgA antibody detection <20.0 0.0-19.9 Serum gliadin IgA antibody assay (units/volume) < % 0.0-19.9 Gliadin IgG antibody assay < % 0.0 -19.9 Serum or plasma IgA measurement (mass/volume) 161 % 71-263 Gastric fluid parietal cell antibody det ection by immunofluorescence - 10/07/18 14:05 Gastric parietal cell antibody titer < <1:20 ADRENAL ANTIBODY SCREEN T TITE - 8 14:05 [id number] NEGATIVE NEGATIVE Automated blood complete blood count (he mogram) panel - 10/29/18 15:51 Blood leukocytes automated count (number/volume) 6.1 10*3/uL 4.3-11.0 Blood erythrocytes automated count (number/volume) 2.58 10*6/uL 4.35-5.85 Venous blood hemoglobin measurement (mass/volume) 8.0 g/dL 11.5-16.0 Blood hematocrit (volume fraction) 25 % 35-52 Automated erythrocyte mean corpuscular volume 96 [ foz_us] 80-99 Automated erythrocyte mean corpuscular h emoglobin (mass per erythrocyte) 31 pg 25-34 Automated erythrocyte mean corpuscular h emoglobin concentration measurement (mass/volume) 32 g/dL 32-36 Automated erythrocyte distribution width ratio 13. 1 % 10.0- 14.5 Automated blood platelet count (count/volume) 128 10*3/uL 130-400 Automated blood platelet mean volume measurement 11.7 [foz_us] 7.4-10.4 Complete urinalysis with reflex to cultu re - 10/29/18 15:51 Urine color determination YELLOW NRG Urine clarity determination CLEAR NR G Urine pH measurement by test strip 7 5-9 Specific gravity of urine by test strip 1.010 1.016-1.022 Urine protein assay by test strip, semi-quantitative 4+ NEGATIVE Urine glucose detection by automated test strip NE GATIVE NEGATIVE Erythrocytes detection in urine sediment by light micr oscopy 1+ NEGATIVE Urine ketones detection by automated test strip NE GATIVE NEGATIVE Urine nitrite detection by test strip NEGATIVE NEGATIVE Urine total bilirubin detection by test strip NEGA TIVE NEGATIVE Urine urobilinogen measurement by automated test strip (mass/volume) NORMAL NORMAL Urine leukocyte esterase detection by dipstick 1+ NEGATIVE Automated urine sediment erythrocyte cou nt by microscopy (number/high power field) [HPF] NRG Automated urine sediment leukocyte count by microscopy (number/high power field) [HPF] NRG Bacteria detection in urine sediment by light microsco py FEW NRG Squamous epithelial cells detection in u rine sediment by light microscopy >50 NRG Crystals detection in urine sediment by light microsco py NONE NRG Casts detection in urine sediment by light microscopy NONE NRG Mucus detection in urine sediment by light microscopy NEGATIVE NRG Complete urinalysis with reflex to culture YES NRG Urine protein/creatinine mass ratio - 15:51 Urine protein measurement (mass/volume) 318 mg/dL 6-12 Urine creatinine measurement (mass/volume) 158 mg/ dL 30-125 Urine protein/creatinine mass ratio 2.01 NRG Serum or plasma renal function panel (Na , K, Cl, CO2, BUN, Cr, glucose,Ca, phos, alb) - 10/29/18 15:51 Serum or plasma sodium measurement (moles/volume) 138 mmol/L 135-145 Serum or plasma potassium measurement (moles/volume) 4.5 mmol/L 3.6-5.0 Serum or plasma chloride measurement (moles/volume) 104 mmol/L 98-107 Carbon dioxide 25 mmol/L 21-32 Serum or plasma anion gap determination (moles/volume) 9 mmol/L 5-14 Serum or plasma urea nitrogen measurement (mass/volume ) 34 mg/dL 7-18 Serum or plasma creatinine measurement (mass/volume) 3.19 mg/dL 0.60-1.30 Serum or plasma urea nitrogen/creatinine mass ratio 11 NRG Serum or plasma creatinine measurement w ith calculation of estimated glomerular filtration rate 16 NRG Serum or plasma glucose measurement (mass/volume) 106 mg/dL 70-105 Serum or plasma calcium measurement (mass/volume) 8.4 mg/dL 8.5-10.1 Serum or plasma albumin measurement (mass/volume) 3.5 g/dL 3.2-4.5 Serum or plasma phosphate measurement (mass/volume) 3.6 mg/dL 2.3-4.7 Serum iron and total iron binding capaci ty panel - 10/29/18 15:51 Serum or plasma iron measurement (mass/volume) 110 % 35-180 Total iron binding capacity and transferrin saturation measurement 43 % 15-50 Iron binding capacity [mass/volume] in serum or plasma 255 % 280-380 UIBC (unsaturated iron binding capacity) 145 % 55-450 Serum or plasma ferritin measurement (mass/volume) 227.3 % 20.0-177.0 Serum or plasma intact pararthyroid horm one measurement (mass/volume) - 10/29/18 15:51 Serum or plasma intact parathyroid hormone measurement (mass/volume) 149.0 pg/mL 9.0-77.0 Bio-intact parathyroid hormone (PTH) measurement with calcium 8.0 % 8.5-10.5 VITAMIN D 25-HYDROXY - 10/29/18 15:51 VITAMIN D 25-HYDROXY (TOTAL) 40.8 % 3 0.0-100.0 Bacterial urine culture - 10/29/18 15:51 Bacterial urine culture SEE COMMEN NRG COLONY COUNT . NRG FTX;REPORTABLE PRESENT NR FREE TEXT ENTRY 2 NO SUSCEPTIBILITY PERFORMED NRG Complete blood count (CBC) with automate d white blood cell (WBC) differential - 01/07/19 10:57 Blood leukocytes automated count (number/volume) 7.4 10*3/uL 4.3-11.0 Blood erythrocytes automated count (number/volume) 2.88 10*6/uL 4.35-5.85 Venous blood hemoglobin measurement (mass/volume) 9.1 g/dL 11.5-16.0 Blood hematocrit (volume fraction) 28 % 35-52 Automated erythrocyte mean corpuscular volume 97 [ foz_us] 80-99 Automated erythrocyte mean corpuscular h emoglobin (mass per erythrocyte) 32 pg 25-34 Automated erythrocyte mean corpuscular h emoglobin concentration measurement (mass/volume) 33 g/dL 32-36 Automated erythrocyte distribution width ratio 14. 0 % 10.0- 14.5 Automated blood platelet count (count/volume) 143 10*3/uL 130-400 Automated blood platelet mean volume measurement 10.7 [foz_us] 7.4-10.4 Automated blood neutrophils/100 leukocytes 59 % 42-75 Automated blood lymphocytes/100 leukocytes 31 % 12-44 Blood monocytes/100 leukocytes 7 % 0-12 Automated blood eosinophils/100 leukocytes 4 % 0-10 Automated blood basophils/100 leukocytes 1 % 0-10 Blood neutrophils automated count (number/volume) 4.3 10*3 1.8-7.8 Blood lymphocytes automated count (number/volume) 2.3 10*3 1.0-4.0 Blood monocytes automated count (number/volume) 0. 5 10*3 0.0-1.0 Automated eosinophil count 0.3 10*3/uL 0 .0-0.3 Automated blood basophil count (count/volume) 0.1 10*3/uL 0.0-0.1 Complete blood count (CBC) with automate d white blood cell (WBC) differential - 01/07/19 10:57 Blood leukocytes automated count (number/volume) 7.5 10*3/uL 4.3-11.0 Blood erythrocytes automated count (number/volume) 2.86 10*6/uL 4.35-5.85 Venous blood hemoglobin measurement (mass/volume) 9.1 g/dL 11.5-16.0 Blood hematocrit (volume fraction) 28 % 35-52 Automated erythrocyte mean corpuscular volume 98 [ foz_us] 80-99 Automated erythrocyte mean corpuscular h emoglobin (mass per erythrocyte) 32 pg 25-34 Automated erythrocyte mean corpuscular h emoglobin concentration measurement (mass/volume) 33 g/dL 32-36 Automated erythrocyte distribution width ratio 14. 1 % 10.0- 14.5 Automated blood platelet count (count/volume) 148 10*3/uL 130-400 Automated blood platelet mean volume measurement 10.9 [foz_us] 7.4-10.4 Automated blood neutrophils/100 leukocytes 59 % 42-75 Automated blood lymphocytes/100 leukocytes 30 % 12-44 Blood monocytes/100 leukocytes 7 % 0-12 Automated blood eosinophils/100 leukocytes 4 % 0-10 Automated blood basophils/100 leukocytes 1 % 0-10 Blood neutrophils automated count (number/volume) 4.4 10*3 1.8-7.8 Blood lymphocytes automated count (number/volume) 2.2 10*3 1.0-4.0 Blood monocytes automated count (number/volume) 0. 5 10*3 0.0-1.0 Automated eosinophil count 0.3 10*3/uL 0 .0-0.3 Automated blood basophil count (count/volume) 0.0 10*3/uL 0.0-0.1 Serum or plasma renal function panel (Na , K, Cl, CO2, BUN, Cr, glucose,Ca, phos, alb) - 01/07/19 10:57 Serum or plasma sodium measurement (moles/volume) 139 mmol/L 135-145 Serum or plasma potassium measurement (moles/volume) 4.4 mmol/L 3.6-5.0 Serum or plasma chloride measurement (moles/volume) 106 mmol/L 98-107 Carbon dioxide 25 mmol/L 21-32 Serum or plasma anion gap determination (moles/volume) 8 mmol/L 5-14 Serum or plasma urea nitrogen measurement (mass/volume ) 54 mg/dL 7-18 Serum or plasma creatinine measurement (mass/volume) 3.51 mg/dL 0.60-1.30 Serum or plasma urea nitrogen/creatinine mass ratio 15 NRG Serum or plasma creatinine measurement w ith calculation of estimated glomerular filtration rate 15 NRG Serum or plasma glucose measurement (mass/volume) 98 mg/dL 70-105 Serum or plasma calcium measurement (mass/volume) 8.4 mg/dL 8.5-10.1 Serum or plasma albumin measurement (mass/volume) 3.0 g/dL 3.2-4.5 Serum or plasma phosphate measurement (mass/volume) 4.6 mg/dL 2.3-4.7 Serum or plasma uric acid measurement (m ass/volume) - 01/07/19 10:57 Serum or plasma uric acid measurement (mass/volume) 5.8 mg/dL 2.6-7.2 Urine protein/creatinine mass ratio - 10:57 Urine protein measurement (mass/volume) 190 mg/dL 6-12 Urine creatinine measurement (mass/volume) 63 mg/d L 30-125 Urine protein/creatinine mass ratio 3.02 [facility] [id number] - 01/07/19 10:57 Screening antinuclear antibody (MIAN) assay by enzyme i mmunoassay <1:80 <1:80 Serum or plasma complement C3 measuremen t (mass/volume) - 01/07/19 10:57 Complement C3 nephritic [mass/volume] in serum or plas ma 79 % 73-183 Complement C4 [mass/volume] in serum or plasma - 01/07/19 10:57 Complement C4 [mass/volume] in serum or plasma 39 % 15-59 IMMUNOFIXATION W/INTERP, SERUM - 9 10:57 Serum or plasma nordiazepam detection Complete Complete Serum protein electrophoresis - 01/07/19 10:57 Serum or plasma protein measurement (mass/volume) 5.7 % 6.7- 8.3 Pathology consultation and report SEE PATH REPORT NRG Serum classic neutrophil cytoplasmic ant ibody assay (units/volume) - 01/07/19 10:57 Antineutrophil cytoplasmic antibody (ANCA) assay < <1:20 Antineutrophil cytoplasmic antibody (ANCA) pattern Not Indicated NRG Quantitative urine kappa and lambda free light chains measurement - 01/07/19 10:57 Quantitative serum kappa light chain measurement 1 17.29 % 3.30-19.40 Quantitative serum lambda light chain measurement 59.11 % 5.71-26.30 Serum immunoglobulin free kappa light ch ains/immunoglobulin lambda light chains mass ratio 1.98 % 0.26-1.65 PDM - 09 PANEL (PROFILE 1) - 01/16/19 08 :00 Prescribed Drug 1 Tramadol NRG Creatinine 34.3 mg/dL > or = 20.0 pH 6.81 4.5 - 9.0 Oxidant NEGATIVE mcg/mL <200 Amphetamines NEGATIVE ng/mL <500 medMATCH Amphetamines CONSISTENT NRG Benzodiazepines NEGATIVE ng/mL <100 medMATCH Benzodiazepines CONSISTENT NRG Marijuana Metabolite NEGATIVE ng/mL <20 medMATCH Marijuana Metab CONSISTENT NRG Cocaine Metabolite NEGATIVE ng/mL <150 medMATCH Cocaine Metab CONSISTENT NRG Opiates NEGATIVE ng/mL <100 medMATCH Opiates CONSISTENT NRG Oxycodone NEGATIVE ng/mL <100 medMATCH Oxycodone CONSISTENT NRG COMMENT NRG Barbiturates POSITIVE ng/mL <300 Methadone Metabolite NEGATIVE ng/mL <100 medMATCH Methadone Metab CONSISTENT NRG Phencyclidine NEGATIVE ng/mL <25 medMATCH Phencyclidine CONSISTENT NRG Amobarbital NEGATIVE ng/mL <100 medMATCH Amobarbital CONSISTENT NRG Butalbital 801 ng/mL <100 medMATCH Butalbital INCONSISTENT NRG Pentobarbital NEGATIVE ng/mL <100 medMATCH Pentobarbital CONSISTENT NRG Phenobarbital NEGATIVE ng/mL <100 medMATCH Phenobarbital CONSISTENT NRG Secobarbital NEGATIVE ng/mL <100 medMATCH Secobarbital CONSISTENT NRG Serum or plasma renal function panel (Na , K, Cl, CO2, BUN, Cr, glucose,Ca, phos, alb) - 01/21/19 12:15 Serum or plasma sodium measurement (moles/volume) 137 mmol/L 135-145 Serum or plasma potassium measurement (moles/volume) 5.0 mmol/L 3.6-5.0 Serum or plasma chloride measurement (moles/volume) 102 mmol/L 98-107 Carbon dioxide 26 mmol/L 21-32 Serum or plasma anion gap determination (moles/volume) 9 mmol/L 5-14 Serum or plasma urea nitrogen measurement (mass/volume ) 70 mg/dL 7-18 Serum or plasma creatinine measurement (mass/volume) 4.08 mg/dL 0.60-1.30 Serum or plasma urea nitrogen/creatinine mass ratio 17 NRG Serum or plasma creatinine measurement w ith calculation of estimated glomerular filtration rate 12 NRG Serum or plasma glucose measurement (mass/volume) 269 mg/dL 70-105 Serum or plasma calcium measurement (mass/volume) 9.8 mg/dL 8.5-10.1 Serum or plasma albumin measurement (mass/volume) 3.3 g/dL 3.2-4.5 Serum or plasma phosphate measurement (mass/volume) 4.6 mg/dL 2.3-4.7 Complete blood count (CBC) with automate d white blood cell (WBC) differential - 01/23/19 18:10 Blood leukocytes automated count (number/volume) 8.8 10*3/uL 4.3-11.0 Blood erythrocytes automated count (number/volume) 2.69 10*6/uL 4.35-5.85 Venous blood hemoglobin measurement (mass/volume) 8.7 g/dL 11.5-16.0 Blood hematocrit (volume fraction) 26 % 35-52 Automated erythrocyte mean corpuscular volume 97 [ foz_us] 80-99 Automated erythrocyte mean corpuscular h emoglobin (mass per erythrocyte) 32 pg 25-34 Automated erythrocyte mean corpuscular h emoglobin concentration measurement (mass/volume) 34 g/dL 32-36 Automated erythrocyte distribution width ratio 14. 3 % 10.0- 14.5 Automated blood platelet count (count/volume) 194 10*3/uL 130-400 Automated blood platelet mean volume measurement 10.3 [foz_us] 7.4-10.4 Automated blood neutrophils/100 leukocytes 55 % 42-75 Automated blood lymphocytes/100 leukocytes 32 % 12-44 Blood monocytes/100 leukocytes 8 % 0-12 Automated blood eosinophils/100 leukocytes 5 % 0-10 Automated blood basophils/100 leukocytes 1 % 0-10 Blood neutrophils automated count (number/volume) 4.8 10*3 1.8-7.8 Blood lymphocytes automated count (number/volume) 2.8 10*3 1.0-4.0 Blood monocytes automated count (number/volume) 0. 7 10*3 0.0-1.0 Automated eosinophil count 0.4 10*3/uL 0 .0-0.3 Automated blood basophil count (count/volume) 0.1 10*3/uL 0.0-0.1 Comprehensive metabolic panel - 01/23/19 18:10 Serum or plasma sodium measurement (moles/volume) 139 mmol/L 135-145 Serum or plasma potassium measurement (moles/volume) 4.4 mmol/L 3.6-5.0 Serum or plasma chloride measurement (moles/volume) 101 mmol/L 98-107 Carbon dioxide 27 mmol/L 21-32 Serum or plasma anion gap determination (moles/volume) 11 mmol/L 5-14 Serum or plasma urea nitrogen measurement (mass/volume ) 72 mg/dL 7-18 Serum or plasma creatinine measurement (mass/volume) 4.01 mg/dL 0.60-1.30 Serum or plasma urea nitrogen/creatinine mass ratio 18 NRG Serum or plasma creatinine measurement w ith calculation of estimated glomerular filtration rate 13 NRG Serum or plasma glucose measurement (mass/volume) 140 mg/dL 70-105 Serum or plasma calcium measurement (mass/volume) 9.7 mg/dL 8.5-10.1 Serum or plasma total bilirubin measurement (mass/volu me) 0.2 mg/dL 0.1-1.0 Serum or plasma alkaline phosphatase michael surement (enzymatic activity/volume) 45 U/L 40-136 Serum or plasma aspartate aminotransfera se measurement (enzymatic activity/volume) 16 U/L 5-34 Serum or plasma alanine aminotransferase measurement (enzymatic activity/volume) 8 U/L 0-55 Serum or plasma protein measurement (mass/volume) 6.8 g/dL 6.4-8.2 Serum or plasma albumin measurement (mass/volume) 3.6 g/dL 3.2-4.5 CALCIUM CORRECTED 10.0 mg/dL 8.5-10.1 Complete urinalysis with reflex to cultu re - 01/23/19 18:28 Urine color determination YELLOW NRG Urine clarity determination CLEAR NR G Urine pH measurement by test strip 7 5-9 Specific gravity of urine by test strip 1.010 1.016-1.022 Urine protein assay by test strip, semi-quantitative 3+ NEGATIVE Urine glucose detection by automated test strip 2+ NEGATIVE Erythrocytes detection in urine sediment by light micr oscopy 1+ NEGATIVE Urine ketones detection by automated test strip NE GATIVE NEGATIVE Urine nitrite detection by test strip NEGATIVE NEGATIVE Urine total bilirubin detection by test strip NEGA TIVE NEGATIVE Urine urobilinogen measurement by automated test strip (mass/volume) NORMAL NORMAL Urine leukocyte esterase detection by dipstick NEG ATIVE NEGATIVE Automated urine sediment erythrocyte cou nt by microscopy (number/high power field) RARE NRG Automated urine sediment leukocyte count by microscopy (number/high power field) RARE NRG Bacteria detection in urine sediment by light microsco py NEGATIVE NRG Squamous epithelial cells detection in u rine sediment by light microscopy RARE NRG Crystals detection in urine sediment by light microsco py NONE NRG Casts detection in urine sediment by light microscopy NONE NRG Mucus detection in urine sediment by light microscopy NEGATIVE NRG Complete urinalysis with reflex to culture NO NRG Complete blood count (CBC) with automate d white blood cell (WBC) differential - 05/01/19 13:16 Blood leukocytes automated count (number/volume) 7.7 10*3/uL 4.3-11.0 Blood erythrocytes automated count (number/volume) 2.49 10*6/uL 4.35-5.85 Venous blood hemoglobin measurement (mass/volume) 8.1 g/dL 11.5-16.0 Blood hematocrit (volume fraction) 24 % 35-52 Automated erythrocyte mean corpuscular volume 98 [ foz_us] 80-99 Automated erythrocyte mean corpuscular h emoglobin (mass per erythrocyte) 33 pg 25-34 Automated erythrocyte mean corpuscular h emoglobin concentration measurement (mass/volume) 33 g/dL 32-36 Automated erythrocyte distribution width ratio 13. 0 % 10.0- 14.5 Automated blood platelet count (count/volume) 152 10*3/uL 130-400 Automated blood platelet mean volume measurement 10.9 [foz_us] 7.4-10.4 Automated blood neutrophils/100 leukocytes 51 % 42-75 Automated blood lymphocytes/100 leukocytes 39 % 12-44 Blood monocytes/100 leukocytes 6 % 0-12 Automated blood eosinophils/100 leukocytes 4 % 0-10 Automated blood basophils/100 leukocytes 1 % 0-10 Blood neutrophils automated count (number/volume) 3.9 10*3 1.8-7.8 Blood lymphocytes automated count (number/volume) 3.0 10*3 1.0-4.0 Blood monocytes automated count (number/volume) 0. 5 10*3 0.0-1.0 Automated eosinophil count 0.3 10*3/uL 0 .0-0.3 Automated blood basophil count (count/volume) 0.0 10*3/uL 0.0-0.1 Serum or plasma renal function panel (Na , K, Cl, CO2, BUN, Cr, glucose,Ca, phos, alb) - 05/01/19 13:16 Serum or plasma sodium measurement (moles/volume) 138 mmol/L 135-145 Serum or plasma potassium measurement (moles/volume) 4.6 mmol/L 3.6-5.0 Serum or plasma chloride measurement (moles/volume) 103 mmol/L 98-107 Carbon dioxide 25 mmol/L 21-32 Serum or plasma anion gap determination (moles/volume) 10 mmol/L 5-14 Serum or plasma urea nitrogen measurement (mass/volume ) 62 mg/dL 7-18 Serum or plasma creatinine measurement (mass/volume) 5.01 mg/dL 0.60-1.30 Serum or plasma urea nitrogen/creatinine mass ratio 12 NRG Serum or plasma creatinine measurement w ith calculation of estimated glomerular filtration rate 10 NRG Serum or plasma glucose measurement (mass/volume) 170 mg/dL 70-105 Serum or plasma calcium measurement (mass/volume) 8.7 mg/dL 8.5-10.1 Serum or plasma albumin measurement (mass/volume) 3.5 g/dL 3.2-4.5 Serum or plasma phosphate measurement (mass/volume) 5.9 mg/dL 2.3-4.7 Serum or plasma uric acid measurement (m ass/volume) - 05/01/19 13:16 Serum or plasma uric acid measurement (mass/volume) 5.1 mg/dL 2.6-7.2 Serum or plasma intact pararthyroid horm one measurement (mass/volume) - 05/01/19 13:16 Serum or plasma intact parathyroid hormone measurement (mass/volume) 158.4 pg/mL 9.0-77.0 Bio-intact parathyroid hormone (PTH) measurement with calcium 8.7 % 8.5-10.5 VITAMIN D 25-HYDROXY - 05/01/19 13:16 VITAMIN D 25-HYDROXY (TOTAL) 44.3 % 3 0.0-100.0 Complete urinalysis with reflex to cultu re - 05/01/19 13:17 Urine color determination YELLOW NRG Urine clarity determination CLEAR NR G Urine pH measurement by test strip 7 5-9 Specific gravity of urine by test strip 1.010 1.016-1.022 Urine protein assay by test strip, semi-quantitative 3+ NEGATIVE Urine glucose detection by automated test strip 4+ NEGATIVE Erythrocytes detection in urine sediment by light micr oscopy 1+ NEGATIVE Urine ketones detection by automated test strip NE GATIVE NEGATIVE Urine nitrite detection by test strip NEGATIVE NEGATIVE Urine total bilirubin detection by test strip NEGA TIVE NEGATIVE Urine urobilinogen measurement by automated test strip (mass/volume) NORMAL NORMAL Urine leukocyte esterase detection by dipstick 1+ NEGATIVE Automated urine sediment erythrocyte cou nt by microscopy (number/high power field) [HPF] NRG Automated urine sediment leukocyte count by microscopy (number/high power field) [HPF] NRG Bacteria detection in urine sediment by light microsco py TRACE NRG Squamous epithelial cells detection in u rine sediment by light microscopy 5-10 NRG Crystals detection in urine sediment by light microsco py NONE NRG Casts detection in urine sediment by light microscopy NONE NRG Mucus detection in urine sediment by light microscopy NEGATIVE NRG Complete urinalysis with reflex to culture NO NRG Urine protein/creatinine mass ratio - 13:17 Urine protein measurement (mass/volume) 135 mg/dL 6-12 Urine creatinine measurement (mass/volume) 60 mg/d L 30-125 Urine protein/creatinine mass ratio 2.25 NRG Automated blood complete blood count (he mogram) panel - 06/09/19 13:34 Blood leukocytes automated count (number/volume) 7.2 10*3/uL 4.3-11.0 Blood erythrocytes automated count (number/volume) 2.50 10*6/uL 4.35-5.85 Venous blood hemoglobin measurement (mass/volume) 8.1 g/dL 11.5-16.0 Blood hematocrit (volume fraction) 25 % 35-52 Automated erythrocyte mean corpuscular volume 99 [ foz_us] 80-99 Automated erythrocyte mean corpuscular h emoglobin (mass per erythrocyte) 32 pg 25-34 Automated erythrocyte mean corpuscular h emoglobin concentration measurement (mass/volume) 33 g/dL 32-36 Automated erythrocyte distribution width ratio 13. 5 % 10.0- 14.5 Automated blood platelet count (count/volume) 172 10*3/uL 130-400 Automated blood platelet mean volume measurement 10.7 [foz_us] 7.4-10.4 Complete urinalysis with reflex to cultu re - 06/09/19 13:34 Urine color determination YELLOW NRG Urine clarity determination CLEAR NR G Urine pH measurement by test strip 6.5 5-9 Specific gravity of urine by test strip 1.010 1.016-1.022 Urine protein assay by test strip, semi-quantitative 3+ NEGATIVE Urine glucose detection by automated test strip 4+ NEGATIVE Erythrocytes detection in urine sediment by light micr oscopy 1+ NEGATIVE Urine ketones detection by automated test strip NE GATIVE NEGATIVE Urine nitrite detection by test strip NEGATIVE NEGATIVE Urine total bilirubin detection by test strip NEGA TIVE NEGATIVE Urine urobilinogen measurement by automated test strip (mass/volume) NORMAL NORMAL Urine leukocyte esterase detection by dipstick NEG ATIVE NEGATIVE Automated urine sediment erythrocyte cou nt by microscopy (number/high power field) RARE NRG Automated urine sediment leukocyte count by microscopy (number/high power field) NONE NRG Bacteria detection in urine sediment by light microsco py NEGATIVE NRG Squamous epithelial cells detection in u rine sediment by light microscopy RARE NRG Crystals detection in urine sediment by light microsco py NONE NRG Casts detection in urine sediment by light microscopy NONE NRG Mucus detection in urine sediment by light microscopy NEGATIVE NRG Complete urinalysis with reflex to culture NO NRG Serum or plasma renal function panel (Na , K, Cl, CO2, BUN, Cr, glucose,Ca, phos, alb) - 06/09/19 13:34 Serum or plasma sodium measurement (moles/volume) 134 mmol/L 135-145 Serum or plasma potassium measurement (moles/volume) 4.6 mmol/L 3.6-5.0 Serum or plasma chloride measurement (moles/volume) 101 mmol/L 98-107 Carbon dioxide 23 mmol/L 21-32 Serum or plasma anion gap determination (moles/volume) 10 mmol/L 5-14 Serum or plasma urea nitrogen measurement (mass/volume ) 59 mg/dL 7-18 Serum or plasma creatinine measurement (mass/volume) 6.28 mg/dL 0.60-1.30 Serum or plasma urea nitrogen/creatinine mass ratio 9 NRG Serum or plasma creatinine measurement w ith calculation of estimated glomerular filtration rate 7 NRG Serum or plasma glucose measurement (mass/volume) 333 mg/dL 70-105 Serum or plasma calcium measurement (mass/volume) 8.5 mg/dL 8.5-10.1 Serum or plasma albumin measurement (mass/volume) 3.3 g/dL 3.2-4.5 Serum or plasma phosphate measurement (mass/volume) 5.9 mg/dL 2.3-4.7 Serum or plasma uric acid measurement (m ass/volume) - 06/09/19 13:34 Serum or plasma uric acid measurement (mass/volume) 7.2 mg/dL 2.6-7.2 Urine protein/creatinine mass ratio - 13:34 Urine protein measurement (mass/volume) 79 mg/dL 6-12 Urine creatinine measurement (mass/volume) 57 mg/d L 30-125 Urine protein/creatinine mass ratio 1.39 NRG Serum or plasma intact pararthyroid horm one measurement (mass/volume) - 06/09/19 13:34 Serum or plasma intact parathyroid hormone measurement (mass/volume) 47.0 pg/mL 9.0-77.0 Bio-intact parathyroid hormone (PTH) measurement with calcium 8.4 % 8.5-10.5 VITAMIN D 25-HYDROXY - 06/09/19 13:34 VITAMIN D 25-HYDROXY (TOTAL) 30.8 % 3 0.0-100.0 Serum or plasma thyroxine (T4) free castro urement (mass/volume) - 08/28/19 14:14 Serum or plasma thyroxine (T4) free measurement (mass/ volume) 0.89 ng/dL 0.70-1.48 Serum or plasma thyrotropin measurement by detection limit <=0.05 miu/l (units/volume) - 08/28/19 14:14 Serum or plasma thyrotropin measurement by detection limit <=0.05 miu/l (units/volume) 5.27 u[iU]/mL 0.35-4.94 Capillary blood glucose measurement by g lucometer (mass/volume) - 10/15/19 14:48 Capillary blood glucose measurement by glucometer (mas s/volume) > mg/dL 70-110 Automated blood complete blood count (he mogram) panel - 10/15/19 15:05 Blood leukocytes automated count (number/volume) 10.4 10*3/uL 4.3-11.0 Blood erythrocytes automated count (number/volume) 2.62 10*6/uL 4.35-5.85 Venous blood hemoglobin measurement (mass/volume) 8.4 g/dL 11.5-16.0 Blood hematocrit (volume fraction) 25 % 35-52 Automated erythrocyte mean corpuscular volume 96 [ foz_us] 80-99 Automated erythrocyte mean corpuscular h emoglobin (mass per erythrocyte) 32 pg 25-34 Automated erythrocyte mean corpuscular h emoglobin concentration measurement (mass/volume) 33 g/dL 32-36 Automated erythrocyte distribution width ratio 12. 9 % 10.0- 14.5 Automated blood platelet count (count/volume) 244 10*3/uL 130-400 Automated blood platelet mean volume measurement 10.2 [foz_us] 7.4-10.4 Urine beta human chorionic gonadotropin (hCG) measurement - 10/15/19 15:05 Urine beta human chorionic gonadotropin (hCG) measurem ent NEGATIVE NEGATIVE Comprehensive metabolic panel - 10/15/19 15:05 Serum or plasma sodium measurement (moles/volume) 124 mmol/L 135-145 Serum or plasma potassium measurement (moles/volume) 4.6 mmol/L 3.6-5.0 Serum or plasma chloride measurement (moles/volume) 89 mmol/L 98-107 Carbon dioxide 10 mmol/L 21-32 Serum or plasma anion gap determination (moles/volume) 25 mmol/L 5-14 Serum or plasma urea nitrogen measurement (mass/volume ) 94 mg/dL 7-18 Serum or plasma creatinine measurement (mass/volume) 6.46 mg/dL 0.60-1.30 Serum or plasma urea nitrogen/creatinine mass ratio 15 NRG Serum or plasma creatinine measurement w ith calculation of estimated glomerular filtration rate 7 NRG Serum or plasma glucose measurement (mass/volume) 751 mg/dL 70-105 Serum or plasma calcium measurement (mass/volume) 8.0 mg/dL 8.5-10.1 Serum or plasma total bilirubin measurement (mass/volu me) 0.3 mg/dL 0.1-1.0 Serum or plasma alkaline phosphatase michael surement (enzymatic activity/volume) 78 U/L 40-136 Serum or plasma aspartate aminotransfera se measurement (enzymatic activity/volume) 18 U/L 5-34 Serum or plasma alanine aminotransferase measurement (enzymatic activity/volume) 15 U/L 0-55 Serum or plasma protein measurement (mass/volume) 6.0 g/dL 6.4-8.2 Serum or plasma albumin measurement (mass/volume) 3.3 g/dL 3.2-4.5 CALCIUM CORRECTED 8.6 mg/dL 8.5-10.1 Complete urinalysis with reflex to cultu re - 10/15/19 15:15 Urine color determination YELLOW NRG Urine clarity determination SL CLOUDY N RG Urine pH measurement by test strip 5.5 5-9 Specific gravity of urine by test strip 1.010 1.016-1.022 Urine protein assay by test strip, semi-quantitative TRACE NEGATIVE Urine glucose detection by automated test strip 3+ NEGATIVE Erythrocytes detection in urine sediment by light micr oscopy 1+ NEGATIVE Urine ketones detection by automated test strip 2+ NEGATIVE Urine nitrite detection by test strip POSITIVE NEGATIVE Urine total bilirubin detection by test strip NEGA TIVE NEGATIVE Urine urobilinogen measurement by automated test strip (mass/volume) 0.2 mg/dL < = 1.0 Urine leukocyte esterase detection by dipstick 1+ NEGATIVE Automated urine sediment erythrocyte cou nt by microscopy (number/high power field) [HPF] NRG Automated urine sediment leukocyte count by microscopy (number/high power field) [HPF] NRG Bacteria detection in urine sediment by light microsco py MODERATE NRG Squamous epithelial cells detection in u rine sediment by light microscopy 2-5 NRG Crystals detection in urine sediment by light microsco py NONE NRG Casts detection in urine sediment by light microscopy NONE NRG Mucus detection in urine sediment by light microscopy NEGATIVE NRG Complete urinalysis with reflex to culture YES NRG Bacterial urine culture - 10/15/19 15:15 Bacterial urine culture [id number] NRG COLONY COUNT >100,000/ML NRG FTX;REPORTABLE SUSCEPTIBILITY REPORTED 10/17 12:45 NRG Dirithromycin susceptibility test by dis k diffusion - 10/15/19 15:15 Gentamicin susceptibility test by minimum inhibitory c oncentration <= NRG Trimethoprim/sulfamethoxazole susceptibi lity test by minimum inhibitoryconcentration <= NRG Levofloxacin susceptibility test by minimum inhibitory concentration <= NRG Ampicillin susceptibility test by minimum inhibitory c oncentration <= NRG Cefazolin susceptibility test by minimum inhibitory co ncentration <= NRG Ceftriaxone susceptibility test by minimum inhibitory concentration <= NRG Ciprofloxacin susceptibility test by minimum inhibitor y concentration <= NRG Meropenem susceptibility test by minimum inhibitory co ncentration <= NRG Nitrofurantoin susceptibility test by mi nimum inhibitory concentration <= NRG Amoxicillin and clavulanate potassium susc LEXX <= NRG Arterial blood gas measurement - 9 15:27 Blood pCO2 31 mm[Hg] 35-45 Blood pO2 38 mm[Hg] 79-93 Arterial blood bicarbonate measurement (moles/volume) 13 mmol/L 23-27 Arterial blood base excess by calculation -13.3 mm ol/L -2.5-2.5 Arterial blood oxygen saturation measurement 64 % 94-100 * Inhaled oxygen flow rate N/A NRG Arterial blood pH measurement with patient temperature correction 7.24 7.37-7.43 Arterial blood carbon dioxide, total measurement (mole s/volume) 13.6 mmol/L 21.0-31.0 Body site RIGHT RADIAL NRG Assessment of wrist artery patency prior to arterial p uncture POSITIVE NRG Setting of ventilation mode NO NR G Measurement of body temperature 36.8 NRG Capillary blood glucose measurement by g lucometer (mass/volume) - 03/19/20 05:47 Capillary blood glucose measurement by glucometer (mas s/volume) 201 mg/dL 70-110 Encounters ACCT No. Visit Date/Time Discharge Status Pt. Type Provider Facility Loc./Unit Complaint [id number] 08/07/2016 08:06:00 Document Registration [id number] 03/16/2015 15:58:00 03/16/2015 23:59: 59 CLS Outpatient ALAN CARABALLO APRN [id number] 02/15/2015 15:37:00 02/15/2015 23:59: 59 CLS Outpatient ALAN CARABALLO APRN [id number] 11/22/2014 10:38:00 11/22/2014 23:59: 59 CLS Outpatient ALAN CARABALLO APRN [id number] 11/22/2014 10:38:00 11/22/2014 23:59: 59 CLS Outpatient ALAN CARABALLO APRN [id number] 08/02/2014 15:15:00 08/02/2014 23:59: 59 CLS Outpatient [id number] 07/21/2014 11:01:00 07/21/2014 23:59: 59 CLS Outpatient CHEN MCCOY APRN [id number] 07/08/2014 11:50:00 07/08/2014 23:59: 59 CLS Outpatient ALNA CARABALLO APRN [id number] 07/08/2014 11:50:00 07/08/2014 23:59: 59 CLS Outpatient ALAN CARABALLO APRN [id number] 05/13/2014 11:35:00 05/13/2014 23:59: 59 CLS Outpatient ALAN CARABALLO APRN [id number] 04/28/2014 08:39:00 04/28/2014 23:59: 59 CLS Outpatient LORENA PIERSON DO [id number] 04/28/2014 08:39:00 04/28/2014 23:59: 59 CLS Outpatient PIERSON DOLORENA [id number] 03/23/2014 08:40:00 03/23/2014 23:59: 59 CLS Outpatient ALAN CARABALLO APRN [id number] 03/02/2014 14:51:00 03/02/2014 23:59: 59 CLS Outpatient ALAN CARABALLO APRN [id number] 03/02/2014 14:51:00 03/02/2014 23:59: 59 CLS Outpatient ALAN CARABALLO APRN [id number] 11/09/2013 10:26:00 11/09/2013 23:59: 59 CLS Outpatient ALAN CARABALLO APRN S [id number] 11/09/2013 10:26:00 11/09/2013 23:59: 59 CLS Outpatient ALAN CARABALLO APRN [id number] 10/28/2013 09:30:00 10/28/2013 23:59: 59 CLS Outpatient LORENA PIERSON DO [id number] 10/28/2013 09:30:00 10/28/2013 23:59: 59 CLS Outpatient LORENA PIERSON DO [id number] 08/26/2013 10:49:00 08/26/2013 23:59: 59 CLS Outpatient LORENA PIERSON DO [id number] 08/14/2013 12:12:00 08/14/2013 23:59: 59 CLS Outpatient LORENA PIERSON DO [id number] 08/03/2013 10:51:00 08/03/2013 23:59: 59 CLS Outpatient LORENA PIERSON DO [id number] 10/20/2012 00:00:00 10/20/2012 23:59: 59 CLS Outpatient ALAN CARABALLO APRN [id number] 08/03/2013 10:51:00 Document Registration [id number] 07/20/2013 10:23:00 Document Registration [id number] 06/24/2013 10:11:00 Document Registration [id number] 04/08/2013 10:13:00 Document Registration [id number] 04/08/2013 10:13:00 Document Registration [id number] 10/15/2019 14:38:00 019 17:17:00 DIS Emergency GREENE DUANE YOUSSEF Via [facility] ER ELEVATED BLOOD SUGAR [id number] 08/28/2019 14:03:00 23:59:59 CLS Outpatient FADI YOUNG MD Via [facility] RAD PROTEINURIA [id number] 08/28/2019 01:24:00 23:59:59 CLS Outpatient REJI CASTILLO, DARNELL Johnson [facility] LAB CHRONIC KIDNEY DISEASE [id number] 08/28/2019 00:10:00 23:59:59 CLS Preadmit COREY NGUYEN MD Via [facility] ONC [id number] 07/08/2019 14:02:00 00:01:00 DIS Outpatient COREY NGUYEN MD Via [facility] ONC [id number] 06/09/2019 13:12:00 23:59:59 CLS Outpatient FADI YOUNG MD Via [facility] LAB RENAL,COMPLETE BLOOD,VITD,URICAID,IPTH, URINE SPOT [id number] 05/26/2019 14:06:00 00:01:00 DIS Outpatient COREY NGUYEN MD Via [facility] ONC [id number] 05/26/2019 11:26:00 23:59:59 CLS Outpatient FACUNDO CASTILLO FACC, MELCHOR ALAN CC DS Via [facility] CARD DIABETES ME LLITUS [id number] 05/01/2019 13:00:00 23:59:59 CLS Outpatient LOR YOUNG MD Via [facility] LAB N18.3 [id number] 02/10/2019 14:21:00 00:01:00 DIS Outpatient COREY NGUYEN MD Via [facility] ONC [id number] 02/16/2019 14:20:00 23:59:59 CLS Preadmit MIKIE SWIFT DO, V ia [facility] ENDO RUQ PAIN/NAUSEA/GASTRIT IS [id number] 02/09/2019 05:41:00 23:59:59 CLS Outpatient JAMISON YOUSSEFMIKIE Via [facility] PREOP EGD [id number] 01/23/2019 17:12:00 19:27:00 DIS Emergency RADHA CASTILLO, LUI Henson Via [facility] ER BLOOD PRESSURE HIGH [id number] 01/21/2019 12:09:00 23:59:59 CLS Outpatient HANNAH CASTILLO, FADI S Via [facility] LAB N18.3 [id number] 01/19/2019 13:45:00 16:29:00 DIS Outpatient ALAN CARABALLO Via [facility] REHAB R SHOULDER PAIN [id number] 01/16/2019 06:50:00 23:59:59 CLS Outpatient GINETTETIFFANIE YOUSSEFMIKIE Via [facility] RAD NAUSEA,DIARRHEA,EPIGAST BISI ABD PAIN [id number] 01/07/2019 14:18:00 23:59:59 CLS Preadmit PRECIOUS OLMEDO Via [facility] CARD HTN,DIASTOLIC DYSFUNCTI ON [id number] 01/07/2019 10:40:00 23:59:59 CLS Outpatient LOR YOUNG MD Via [facility] LAB [id number] 12/18/2018 09:53:00 23:59:59 CLS Outpatient ALAN CARABALLO Via [facility] CARD IRRITABLE BOWEL SYNDRO ME W/ DIARRHEA [id number] 10/29/2018 15:20:00 00:01:00 DIS Outpatient PATRICK CASTILLO, COREY Via [facility] ONC [id number] 11/11/2018 12:16:00 23:59:59 CLS Outpatient PRECIOUS OLMEDO Via [facility] RAD SOB,LEG SWELLIN G [id number] 11/05/2018 15:49:00 12/12/2 018 23:59:59 CLS Preadmit PRECIOUS OLMEDO Via [facility] RAD M79.89 LEG SWELLING [id number] 10/29/2018 15:27:00 018 23:59:59 CLS Outpatient LOR YOUNG MD Via [facility] LAB [id number] 10/07/2018 13:45:00 018 23:59:59 CLS Outpatient DARNELL MENDOZA MD Via [facility] LAB [id number] 08/05/2018 13:36:00 018 13:59:00 DIS Outpatient COREY NGUYEN MD Via [facility] ONC [id number] 08/05/2018 13:40:00 018 23:59:59 CLS Outpatient LOR YOUNG MD Via [facility] LAB [id number] 06/24/2018 13:04:00 018 23:59:59 CLS Outpatient COREY NGUYEN MD Via [facility] ONC [id number] 06/06/2018 09:00:00 018 10:15:00 DIS Outpatient DAYAN ORTEGA MD Via [facility] CATARACT LEFT EYE [id number] 06/04/2018 14:41:00 018 23:59:59 CLS Outpatient FADI TYLER MD Via [facility] LAB [id number] 06/04/2018 05:41:00 018 13:17:00 DIS Outpatient DAYAN ORTEGA MD Via [facility] PREOP CATARACT LEFT EYE [id number] 04/25/2018 06:34:00 018 08:00:00 DIS Outpatient DYAAN ORTEGA MD Via [facility] CATARACT RIGHT EYE [id number] 04/23/2018 05:40:00 018 11:13:00 DIS Outpatient DAYAN ORTEGA MD Via [facility] PREOP CATARACT RIGHT EYE [id number] 03/12/2018 13:21:00 018 00:01:00 DIS Outpatient COREY NGUYEN MD Via [facility] ONC [id number] 03/04/2018 08:10:00 018 23:59:59 CLS Outpatient DARNELL MENDOZA MD Via [facility] LAB E10.8 E10.65 [id number] 02/21/2018 11:18:00 018 23:59:59 CLS Outpatient LOR YOUNG MD Via [facility] LAB N18.3,R80.9,E10 .9,D64.9 [id number] 11/20/2017 14:55:00 018 00:01:00 DIS Outpatient COREY NGUYEN MD Via [facility] ONC [id number] 08/26/2017 11:40:00 017 23:59:59 CLS Outpatient LOR YOUNG MD Via [facility] LAB N18.3 R80.9 E10 .9 I95.1 [id number] 07/31/2017 11:29:00 017 00:01:00 DIS Outpatient COREY NGUYEN MD Via [facility] ONC [id number] 06/05/2017 12:46:00 017 00:01:00 DIS Outpatient COREY NGUYEN MD Via [facility] ONC [id number] 06/17/2017 12:31:00 017 23:59:59 CLS Outpatient LOR YOUNG MD Via [facility] LAB N18.3 R80.9 [id number] 05/22/2017 12:43:00 017 23:59:59 CLS Outpatient ALAYNA ZUÑIGA OD Via [facility] LAB [id number] 02/27/2017 13:33:00 017 00:01:00 DIS Outpatient COREY NGUYEN MD Via [facility] ONC [id number] 02/27/2017 13:39:00 017 23:59:59 CLS Outpatient LOR YOUNG MD Via [facility] LAB [id number] 01/22/2017 11:06:00 017 23:59:59 CLS Outpatient FACUNDO CASTILLO FACC, ALI DIEGOP CC DS Via [facility] CARD SOB [id number] 01/14/2017 11:33:00 017 23:59:59 CLS Outpatient FACUNDO CASTILLO FACRandolph, ALI FACP CC DS Via [facility] CARD SOB [id number] 11/22/2016 12:54:00 017 00:01:00 DIS Outpatient COREY NGUYEN MD Via [facility] ONC [id number] 10/31/2016 12:38:00 016 23:59:59 CLS Outpatient LOR YOUNG MD Via [facility] LAB N18.3,R80.9,E10.9,D64.9,I95.89 [id number] 08/15/2016 13:17:00 016 10:12:00 DIS Outpatient COREY NGUYEN MD Via [facility] ONC [id number] 08/15/2016 13:19:00 016 23:59:59 CLS Outpatient LOR YOUNG MD Via [facility] LAB [id number] 08/03/2016 12:14:00 016 23:59:59 CLS Outpatient FADI YOUNG MD Via [facility] LAB CHRONIC KIDNEY DISEASE,PROTEINURIA,ANEMIA [id number] 06/13/2016 11:26:00 016 00:01:00 DIS Outpatient COREY NGUYEN MD Via [facility] ONC [id number] 04/27/2016 14:33:00 016 23:59:59 CLS Outpatient LOR YOUNG MD Via [facility] LAB CKD STAGE III,P ROTEINURIA, DM W/O COMPLICATION [id number] 02/29/2016 13:09:00 016 00:01:00 DIS Outpatient COREY NGUYEN MD Via [facility] ONC [id number] 01/30/2016 11:12:00 016 23:59:59 CLS Outpatient LOR YOUNG MD Via [facility] RAD CHRONIC KIDNEY DISEASE [id number] 01/19/2016 11:02:00 016 12:24:00 DIS Outpatient SAMANTHA DEE [facility] REHAB R HIP TROCHANTERIC BURS ITIS [id number] 11/15/2015 13:57:00 016 00:01:00 DIS Outpatient COREY NGUYEN MD Via [facility] ONC [id number] 08/24/2015 13:29:00 015 00:01:00 DIS Outpatient COREY NGUYEN MD Via [facility] ONC [id number] 05/26/2015 14:25:00 015 00:01:00 DIS Outpatient COREY NGUYEN MD Via [facility] ONC [id number] 09/01/2014 13:20:00 014 00:01:00 DIS Outpatient COREY NGUYEN MD Via [facility] ONC [id number] 09/13/2014 10:44:00 014 12:25:00 DIS Emergency ROLANDA MENDES Via [facility] ER LEFT THUMB LAC [id number] 07/28/2014 07:59:00 014 23:59:59 CLS Outpatient CHEN MCCOY APRN Via [facility] RAD LEFT BREAST LUMP [id number] 03/17/2014 20:41:00 014 22:37:00 DIS Emergency TIESHA MCKEON APRN Via [facility] ER HEADACHE [id number] 11/02/2013 14:30:00 013 23:59:59 CLS Outpatient FACUNDO CASTILLO FACC, MELCHOR ALAN CC DS Via [facility] RAD RT LEG SWEL LING [id number] 09/17/2013 10:46:00 11:45:00 DIS Inpatient MELCHOR LOREDO MD, FACC, FACP CCD S [facility] CSD CP [id number] 09/17/2013 07:25:00 23:59:59 CLS Outpatient MELCHOR LOREDO MD, FACC, FACP CC DS Via [facility] RAD CHEST DISCO MFORT, POSTURAL SYNCOPE [id number] 09/15/2013 08:49:00 23:59:59 CLS Outpatient MELCHOR LOREDO MD, FACC, FACP CC DS [facility] CARD CHEST DISCO MFORT, POSTURAL SYNCOPE [id number] 07/14/2013 18:32:00 23:59:59 CLS Outpatient [id number] 05/28/2013 19:45:00 20:28:00 DIS Emergency JOANNE ALLEN MD Via [facility] ER HYPOGLYCEMIA [id number] 03/19/2020 05:57:00 Document Registration [id number] 10/06/2012 19:47:00 Document Registration [id number] 05/29/2012 14:40:00 Document Registration [id number] 08/05/2011 22:38:00 Document Registration [id number] 05/25/2011 01:24:00 Document Registration [id number] 12/17/2010 05:54:00 Document Registration [id number] 06/07/2010 13:04:00 Document Registration [id number] 05/29/2010 18:44:00 Document Registration [id number] 02/20/2020 12:35:00 02/20/2020 23:59:5 9 CLS Outpatient ALAN CARABALLO [facility]N [facility] [id number] 01/16/2019 07:55:00 Document Registration [id number] 12/25/2017 14:20:00 Document Registration
[2020-03-19 06:39] LABS: TSH (THYROID ANALYZER) 5.3 UIU/ML (0.35-4.94)
--- NOTE | 2020-03-19 06:40 | NUR ---
PT RECEIVED FOOD TRAY AT THIS TIME. DR. RIZZO DISCUSSED WITH PT HAVING HER EAT AND TURN INSULIN PUMP BACK ON, THEN RECHECKING BLOOD SUGAR PRIOR TO DISCHARGE.
[2020-03-19 07:28] VITALS: BP 133/68
[2020-03-19] MEDS ORDERED: ONDANSETRON 4 MG/2 ML (SDV) Z0FRAN IVP ONE (07:30)
[2020-03-19 07:33] LABS: FREE T4 (FREE THYROXINE) 0.97 NG/DL (0.70-1.48)
== END 2020-03-19 07:31 | disposition home or self-care (01) ==
LOC: EDUNIT# 05:39 → ER 05:41
DX: E11.649 Type 2 diabetes mellitus with hypoglycemia without coma (principal); G43.909 Migraine, unspecified, not intractable, without status migrainosus; F32.9 Major depressive disorder, single episode, unspecified; D64.9 Anemia, unspecified; Z99.2 Dependence on renal dialysis; Z88.8 Allergy status to other drugs, medicaments and biological substances
CPT/HCPCS: 36415; 80053; 81000; 82962; 83735; 84439; 84443; 85025; 86141

== ENCOUNTER → 2020-08-16 | Outpatient (CLI) | payer MEDICARE, MEDICAID ==
[~2020-08-16] MED LIST changes: +NF-SODBICA PO; -SODI650T PO
== END ==
LOC: WOUNDCARE 11:56
PROVIDERS: ATTEND Surgery
DX: E10.621 Type 1 diabetes mellitus with foot ulcer (principal); E10.42 Type 1 diabetes mellitus with diabetic polyneuropathy; L97.512 Non-pressure chronic ulcer of other part of right foot with fat layer exposed; L97.522 Non-pressure chronic ulcer of other part of left foot with fat layer exposed; I70.235 Atherosclerosis of native arteries of right leg with ulceration of other part of foot; E10.22 Type 1 diabetes mellitus with diabetic chronic kidney disease; N18.6 End stage renal disease; E44.1 Mild protein-calorie malnutrition
CPT/HCPCS: 11042; A6196; G0463

== ENCOUNTER → 2020-08-22 | Outpatient (CLI) | payer MEDICARE, MEDICAID | LOC: WOUNDCARE 12:29 | PROVIDERS: ATTEND Surgery | DX: E11.621 Type 2 diabetes mellitus with foot ulcer (principal); E11.42 Type 2 diabetes mellitus with diabetic polyneuropathy; L97.512 Non-pressure chronic ulcer of other part of right foot with fat layer exposed; E11.22 Type 2 diabetes mellitus with diabetic chronic kidney disease; N18.6 End stage renal disease; E44.1 Mild protein-calorie malnutrition; E11.52 Type 2 diabetes mellitus with diabetic peripheral angiopathy with gangrene | CPT/HCPCS: 11042; G0463 ==

== ENCOUNTER → 2020-08-23 | Outpatient (CLI) | payer MEDICARE, MEDICAID ==
--- NOTE | 2020-08-23 13:30 | Diagnostic Imaging Report ---
Examination: Nuclear Medicine Gastric Emptying Scan Technique: Anterior and posterior planar scintigraphic images of the stomach were obtained after the patient ingested 1.0 mCi of technetium 99m sulfur colloid mixed with eggs. Indication: Nausea. Comparison: HIDA scan performed on 12/18/2018. Findings: A time activity curve was calculated for the stomach with the following values of retained activity in the stomach post ingestion: 1 hour: 69% (delayed if greater than 90% retained) 2 hour: 46% (delayed if greater than 60% retained) 3 hour: 27% (delayed if greater than 30% retained) 4 hour: 20% (delayed if greater than 10%) The half-time (T1/2) for gastric emptying was 106 minutes, which is normal. Impression: Mildly delayed gastric emptying, only noted at 4 hours. See above for details. Dictated by: Dictated on workstation # [id number]
== END ==
LOC: CARD 08:38
PROVIDERS: ATTEND Internal Medicine Nephrology
DX: K31.84 Gastroparesis (principal)
CPT/HCPCS: 78264; A9541

== ENCOUNTER → 2020-08-29 | Outpatient (CLI) | payer MEDICARE, MEDICAID | LOC: WOUNDCARE 13:56 | PROVIDERS: ATTEND Surgery | DX: E11.621 Type 2 diabetes mellitus with foot ulcer (principal); E11.42 Type 2 diabetes mellitus with diabetic polyneuropathy; E11.52 Type 2 diabetes mellitus with diabetic peripheral angiopathy with gangrene; E11.22 Type 2 diabetes mellitus with diabetic chronic kidney disease; I96 Gangrene, not elsewhere classified; L97.512 Non-pressure chronic ulcer of other part of right foot with fat layer exposed; N18.6 End stage renal disease; E44.1 Mild protein-calorie malnutrition | CPT/HCPCS: 11042; G0463 ==

== ENCOUNTER → 2020-09-05 | Outpatient (CLI) | payer MEDICARE, MEDICAID | LOC: WOUNDCARE 13:59 | PROVIDERS: ATTEND Surgery | DX: E11.621 Type 2 diabetes mellitus with foot ulcer (principal); E11.42 Type 2 diabetes mellitus with diabetic polyneuropathy; L97.512 Non-pressure chronic ulcer of other part of right foot with fat layer exposed; E11.22 Type 2 diabetes mellitus with diabetic chronic kidney disease; N18.6 End stage renal disease; E44.1 Mild protein-calorie malnutrition; E11.52 Type 2 diabetes mellitus with diabetic peripheral angiopathy with gangrene | CPT/HCPCS: 99212 ==

== ENCOUNTER → 2021-01-20 | Outpatient (CLI) | payer MEDICARE, MEDICAID | LOC: CARD 14:30 | PROVIDERS: ATTEND Internal Medicine Cardiovascular Disease | DX: Z76.82 Awaiting organ transplant status (principal) | CPT/HCPCS: 93306 ==

== ENCOUNTER → 2021-01-27 | Outpatient (CLI) | payer MEDICARE, MEDICAID ==
[~2021-01-27] VITALS: Ht 157 cm; Wt 62.0 kg
[~2021-01-27] MED LIST changes: +REGADENOSON 0.4 MG/5 ML SYR (LEXISCAN) IV ONE
[2021-01-27] MEDS: CATHETER FLUSH 10 ML SYR IV PRN ×2 (08:01→09:04)
[2021-01-27 08:58] VITALS: BP 189/108
== END ==
LOC: CARD 08:00
PROVIDERS: ATTEND Internal Medicine Cardiovascular Disease
DX: Z76.82 Awaiting organ transplant status (principal)
CPT/HCPCS: 78452; 93017; A9502

== ENCOUNTER 2022-04-10 10:55 | Day surgery (SDC) | payer MEDICARE, MEDICAID ==
[~2022-04-10] VITALS: Ht 157.5 cm; Wt 55.3 kg
[2022-04-10] VITALS (9 sets, daily range): BP systolic 165–223; BP diastolic 91–111
[~2022-04-10 10:55] MED LIST changes: +DICY20TA PO; -REGADENOSON 0.4 MG/5 ML SYR (LEXISCAN) IV ONE
[2022-04-10] MEDS ORDERED: NS IV 1000 ML 1,000 ML IV SCH ×2 (11:00→15:30)
[2022-04-10] MEDS ORDERED: LIDOCAINE 1% INJ 20 ML VIAL ONE (11:01)
[2022-04-10] MEDS ORDERED: HEParin (CATH LAB) 2,000 ML IV ONE (11:02)
[2022-04-10] MEDS ORDERED: LOPE2CAP PO (11:24)
[2022-04-10] MEDS ORDERED: LEVO50CA4 PO (11:24)
[2022-04-10] MEDS ORDERED: AMLO5TAB4 PO (11:24)
[2022-04-10] MEDS ORDERED: PRAM0.12 PO (11:24)
[2022-04-10] MEDS ORDERED: CALC667C10 PO (11:24)
[2022-04-10] MEDS ORDERED: TRZ50T PO (11:24)
[2022-04-10] MEDS ORDERED: PROP40TA5 PO (11:24)
[2022-04-10] MEDS ORDERED: ARIP5TAB57 PO (11:24)
[2022-04-10] MEDS ORDERED: DESV50TA PO (11:24)
[2022-04-10 11:36] LABS: HEMATOCRIT 41 % (35-52); HEMOGLOBIN 13.2 g/dL (11.5-16.0); MEAN CORPUSCULAR HEMOGLOBIN 31 pg (25-34); MEAN CORPUSCULAR HGB CONC 32 g/dL (32-36); MEAN CORPUSCULAR VOLUME 97 fL (80-99); MEAN PLATELET VOLUME 10.5 fL (9.0-12.2); PLATELET COUNT 220 10^3/uL (130-400); WHITE BLOOD COUNT 7.4 10^3/uL (4.3-11.0)
[2022-04-10 11:47] LABS: INR 0.9 (0.8-1.4); PROTHROMBIN TIME PATIENT 12.7 SEC (12.2-14.7)
[2022-04-10 11:53] LABS: ALBUMIN 3.8 GM/DL (3.2-4.5); BILIRUBIN,TOTAL 0.3 MG/DL (0.1-1.0); CALCIUM 8.5 MG/DL (8.5-10.1); CREATININE SERUM 4.13 MG/DL (0.60-1.30); POTASSIUM 3.9 MMOL/L (3.6-5.0)
[2022-04-10] MEDS ORDERED: fentaNYL INJ 100 MCG/2 ML AMP ONE (14:13)
--- NOTE | 2022-04-10 15:16 | Cardiac Procedure Note-CS/ASA ---
Pre-Procedure Note Pre-Op Procedure Note H&P Reviewed The H&P was reviewed, patient examined and no changes noted. Date H&P Reviewed: April 10, 2022 Time H&P Reviewed: 14:50 Conscious Sedation Pre-Proced Time 14:50 ASA Score 4 For ASA 3 and 4: Consider anesthesia and medical clearance. Also, for patients with a history of failed moderate sedation consider anesthesia. Airway Lungs Heart ASA score ASA 1: a normal healthy patient ASA 2: a patient with a mild systemic disease (mid diabetes, controlled hypertension, obesity ASA 3: a patient with a severe systemic disease that limits activity (angina, COPD, prior Myocardial infarction) ASA 4: a patient with an incapacitating disease that is a constant threat to life (CHF, renal failure) ASA 5: a moribund patient not expected to survive 24 hrs. (ruptured aneurysm) ASA 6: a declared brain- patient whose organs are being harvested. For emergent operations, add the letter E after the classification Mallampati Classification Grade 2 Sedation Plan Analgesia, Amnesia, Plan communicated to team members, Discussed options with patient/fam, Discussed risks with patient/fam The patient is an appropriate candidate to undergo the planned procedure, sedation, and anesthesia. The patient immediately re-assessed prior to indication. MELCHOR LOREDO MD FACP FAC CCDS April 10, 2022 15:16
--- NOTE | 2022-04-10 15:23 | Discharge Inst-Cardiology ---
Discharge Inst-Cardiac Discharge Medications Continued Medications: Amlodipine Besylate (Norvasc) 5 Mg Tablet 2.5 MG PO DAILY, TAB Aripiprazole (Aripiprazole) 5 Mg Tablet 5 MG PO DAILY, TAB Calcium Acetate (Calcium Acetate) 667 Mg Capsule 667 MG PO DAILY, CAP Desvenlafaxine Succinate (Pristiq ER) 50 Mg Tab.er.24h 50 MG PO DAILY, TAB Levothyroxine Sodium (Levothyroxine) 50 Mcg Capsule 50 MCG PO DAILY, CAP Loperamide HCl (Loperamide) 2 Mg Capsule 2 MG PO UD, CAP Pramipexole (Mirapex) 0.125 Mg Tablet 0.125 MG PO HS, TAB Propranolol HCl (Propranolol HCl) 40 Mg Tablet 40 MG PO BID, TAB Trazodone HCl (Trazodone HCl) 50 Mg Tablet 50 MG PO HS PRN for PRN, TAB MELCHOR LOREDO MD FACP FAC CCDS April 10, 2022 15:23
--- NOTE | 2022-04-10 15:24 | Discharge Inst-Post CATH ---
Discharge Inst-CATH/EP Post Cardiac Cath/EP D/C Inst Follow Up/Plan F/u with Dr Aldana in 2-3 weeks ACTIVITY * Go Home directly and rest. * Limit activity of the leg (or wrist if it was used) for 7 days including aerobics, swimming, jogging, bicycling, etc. * Restrict stair-climbing for 7 days if possible, if not, climb up with your non-cath leg, then bring together on the same step. * Avoid lifting, pushing, pulling or excessive movement of the affected e xtremity for 7 days. * Customary sexual activity may be resumed after 2 days-use caution not to use a position that strains or causes pain to the affected extremity. * No driving for 24 hours. * NO SMOKING. * Avoid straining for bowel movements for 7 days. * Gentle walking on level ground is allowed. * Returning to work will depend on the type of procedure and the results. Your doctor will discuss this with you. CALL YOUR DOCTOR FOR ANY OF THE FOLLOWING: *If bleeding from the puncture site occurs- Apply gentle pressure to site with clean cloth and call your doctor or EMS. * If a knot or lump forms under the skin, increases in size, or causes pain. * If bruising appears to be worsening or moving further down your leg instead of disappearing. * Temperature above 101 F. CARE OF YOUR GROIN INCISION; * Bruising or purple discoloration of the skin near the puncture site is common. * You may shower only, no bathtub bathing for 5 days. Be careful to avoid slipping as your leg may feel stiff. * If a closure device was used on your femoral artery, please see the attached guide regarding care of the device and your leg. * Leave dressing on FOR 24 hours. CARE OF YOUR WRIST INCISION; * Bruising or purple discoloration of the skin near the puncture site is common. * You may shower. * DO NOT submerge wrist. * Leave dressing on FOR 24 hours. MELCHOR ALDANA MD FACP FAC CCDS April 10, 2022 15:24
[2022-04-10] MEDS ORDERED: PATIENT MAY USE OWN MEDS, ALL PO SCH (15:30)
--- NOTE | 2022-04-10 16:00 | CARDIAC CATHETERIZATION ---
DATE OF SERVICE: 04/10/2022 CARDIAC CATHETERIZATION REPORT INDICATION FOR PROCEDURE: The patient is a 41-year-old lady, who has chronic renal failure. She is on chronic peritoneal dialysis. She is awaiting renal transplantation at [facility]. She is being followed by the transplant team (Dr. Hall). The transplant team had stipulated cardiac catheterization before any transplantation. Thus, the study was carried out at the request of the transplantation team. PROCEDURE IN DETAIL: She was brought to the cardiac catheterization laboratory in a fasting state. Right groin was prepared and draped in the usual sterile fashion. Lidocaine 1% was used for local anesthesia. Modified Seldinger technique was used to advance a 5-Mauritanian sheath into the right femoral artery. A 5-Mauritanian JL3.5 catheter was used for left coronary angiography and 5-Mauritanian JR4 catheter was used for right coronary angiography. A 5-Mauritanian pigtail catheter was used for left heart catheterization. Left ventricular angiography was not performed. This was to conserve contrast, given the patient's chronic renal failure. The catheter was pulled back and removed. We used 1 mL of contrast to evaluate the right femoral artery with the sheath had been inserted and we then used Mynx to achieve hemostasis. Total amount of contrast used for the entire study was 10 mL. She tolerated the procedure well. HEMODYNAMICS: Left ventricular end-diastolic pressure following coronary angiography was 10 mmHg. There was no significant pressure gradient on pullback across the aortic valve. Ascending aortic pressure was 143/77 with a mean of 106 mmHg. CORONARY ANGIOGRAPHY: Left main coronary artery, left anterior descending and left circumflex arteries do not exhibit any angiographically significant disease. Right coronary artery is dominant. There is mild catheter-induced bend in the proximal right coronary artery at the tip of the diagnostic catheter. There was no significant disease. Flow throughout the vessel is normal. CONCLUSIONS: 1. No angiographically significant coronary artery disease. 2. Normal left ventricular end-diastolic pressure. 3. 10 mL of contrast was used for the entire study. 4. Left ventricular angiography was not performed to conserve contrast. 5. Ejection fraction was 55% to 60% on echocardiography of 12/2020 and 71% on myocardial perfusion imaging of 01/2021. Job ID: [id number] DocumentID: [id number] Dictated Date: 04/10/2022 15:14:11 Wall Insulation Sprayer Date: 04/10/2022 15:59:24 Dictated By: MELCHOR LOREDO MD, MA, FACP, FACC, MTDD
== END 2022-04-10 18:25 | disposition home or self-care (01) ==
LOC: CATH 10:55
PROVIDERS: ATTEND Internal Medicine Cardiovascular Disease
DX: N18.6 End stage renal disease (principal); I12.0 Hypertensive chronic kidney disease with stage 5 chronic kidney disease or end stage renal disease; E10.22 Type 1 diabetes mellitus with diabetic chronic kidney disease; E10.40 Type 1 diabetes mellitus with diabetic neuropathy, unspecified; E10.319 Type 1 diabetes mellitus with unspecified diabetic retinopathy without macular edema; D64.9 Anemia, unspecified; R53.81 Other malaise; Z99.2 Dependence on renal dialysis; Z76.82 Awaiting organ transplant status; Z87.891 Personal history of nicotine dependence
CPT/HCPCS: 80053; 80061; 85027; 85610; 85730; 87081; 93005; 93458; C1760; C1894; 36415

== ENCOUNTER 2022-07-08 14:39 | Emergency (ER) | payer MEDICARE, MEDICAID ==
[~2022-07-08] VITALS: Ht 157.5 cm; Wt 55.3 kg
[~2022-07-08 14:39] MED LIST changes: +AMLO5TAB4 PO; +ARIP5TAB57 PO; +CALC667C10 PO; +DESV50TA PO; +LEVO50CA4 PO; +LOPE2CAP PO; +PRAM0.12 PO; +PROP40TA5 PO; +TRZ50T PO
[2022-07-08] MEDS ORDERED: ONDANSETRON 4 MG/2 ML (SDV) Z0FRAN IVP ONE (15:15)
[2022-07-08] MEDS ORDERED: NS IV 1000 ML 1,000 ML IV SCH ×2 (15:15→16:30)
[2022-07-08 15:18] LABS: BASOPHILS % (AUTO) 0 % (0-10); EOSINOPHILS # (AUTO) 0.1 10^3/uL (0.0-0.3); EOSINOPHILS % (AUTO) 1 % (0-10); HEMATOCRIT 33 % (35-52); HEMOGLOBIN 11.3 g/dL (11.5-16.0); LYMPHOCYTES # (AUTO) 1.3 10^3/uL (1.0-4.0); LYMPHOCYTES % (AUTO) 11 % (12-44); MEAN CORPUSCULAR HEMOGLOBIN 30 pg (25-34); MEAN CORPUSCULAR HGB CONC 35 g/dL (32-36); MEAN CORPUSCULAR VOLUME 86 fL (80-99); MEAN PLATELET VOLUME 10.9 fL (9.0-12.2); MONOCYTES # (AUTO) 0.4 10^3/uL (0.0-1.0); MONOCYTES % (AUTO) 3 % (0-12); NEUTROPHILS # (AUTO) 10.1 10^3/uL (1.8-7.8); NEUTROPHILS % (AUTO) 84 % (42-75); PLATELET COUNT 212 10^3/uL (130-400)
--- NOTE | 2022-07-08 15:19 | ED Abdominal Pain ---
General Chief Complaint: Abdominal/GI Problems Stated Complaint: N/V,DIARRHEA History of Present Illness Date Seen by Provider: Jul 08, 2022 Time Seen by Provider: 15:05 Initial Comments 42 year old female reports abdominal pain since 07/06/22. Has peroteneal dialysis tube. 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 Tried PeptoBismal. No history of previous GI surgeries. Ate small amounts of solid foods yesterday with no vomiting. No household members with similar symptoms. Blood sugars are averaging 280s. Timing/Duration: 2-3 Days Severity/Quality: Mild Location: Generalized Abdomen Radiation: No Radiation Associated Symptoms: No Back Pain, No Chest Pain, No Fever/Chills, No Fatigue, No Headache, No Heartburn; Nausea/Vomiting; No Shortness of Air, No Swelling/Mass in Abdomen Allergies and Home Medications Allergies Coded Allergies: Spjcuko-Vlj-Fiz Reductase Inhibitor (Verified Allergy, Severe, ANAPHYLAXIS, 03/18/12) difficulty breathing, BLE swelling lisinopril (Verified Allergy, Severe, ANAPHYLAXIS, 03/18/12) difficulty breathing, swelling of extremities gabapentin (Verified Allergy, Unknown, 04/23/18) losartan (Verified Allergy, Unknown, 04/23/18) midazolam (Verified Allergy, Unknown, HIVES, 06/06/18) niacin (Verified Allergy, Unknown, 04/23/18) Patient Home Medication List Home Medication List Reviewed: Yes Amlodipine Besylate (Norvasc) 5 Mg Tablet, 2.5 MG PO DAILY, (Reported) Entered as Reported by: GLORY SLOAN on 04/10/22 112 Aripiprazole (Aripiprazole) 5 Mg Tablet, 5 MG PO DAILY, (Reported) Entered as Reported by: GLORY SLOAN on 04/10/22 112 Calcium Acetate (Calcium Acetate) 667 Mg Capsule, 667 MG PO DAILY, (Reported) Entered as Reported by: GLORY SLOAN on 04/10/22 112 Desvenlafaxine Succinate (Pristiq ER) 50 Mg Tab.er.24h, 50 MG PO DAILY, (Reported) Entered as Reported by: GLORY SLOAN on 04/10/22 112 Levothyroxine Sodium (Levothyroxine) 50 Mcg Capsule, 50 MCG PO DAILY, (Reported) Entered as Reported by: GLORY SLOAN on 04/10/22 1124 Loperamide HCl (Loperamide) 2 Mg Capsule, 2 MG PO UD, (Reported) Entered as Reported by: GLORY SLOAN on 04/10/22 112 Nitrofurantoin Monohyd/M-Cryst (Macrobid 100 mg Capsule) 100 Mg Capsule, 1 TAB PO BID Prescribed by: KARLO CROFT on 07/08/22 1747 Pramipexole (Mirapex) 0.125 Mg Tablet, 0.125 MG PO HS, (Reported) Entered as Reported by: GLORY SLOAN on 04/10/22 112 Propranolol HCl (Propranolol HCl) 40 Mg Tablet, 40 MG PO BID, (Reported) Entered as Reported by: GLORY SLOAN on 04/10/22 112 Trazodone HCl (Trazodone HCl) 50 Mg Tablet, 50 MG PO HS PRN for PRN, (Reported) Entered as Reported by: GLORY SLOAN on 04/10/221123 Review of Systems Review of Systems Constitutional: no symptoms reported, see HPI Gastrointestinal: See HPI, Abdominal Pain; Denies Constipated, Denies Diarrhea; Nausea, Poor Appetite, Poor Fluid Intake, Vomiting All Other Systems Reviewed Negative Unless Noted: Yes Past Jqiouhe-Bejiqa-Acbhws Hx Patient Social History Tobacco Use?: No Use of E-Cig and/or Vaping dev: No Substance use?: No Alcohol Use?: No Immunizations Up To Date Tetanus Booster (TDap): Less than 5yrs Influenza Vaccine Up-to-Date: No; Not Current First/Initial COVID19 Vaccinat: NONE Second COVID19 Vaccination Hayden: NONE Third COVID19 Vaccination Date: NONE COVID19 Vaccine Seafood Technology Specialist: NONE Seasonal Allergies Seasonal Allergies: No Past Medical History Surgeries: Yes (bilat tubal ligation) Tubal Ligation Respiratory: No Cardiac: Yes Hypertension Neurological: Yes Headaches /Migraines Reproductive Disorders: No 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 Sexually Transmitted Disease: No HIV/AIDS: No Genitourinary: Yes (PERITONEAL DIALYSIS) Bladder Infection, Dialysis Gastrointestinal: Yes Irritable Bowel Musculoskeletal: No Endocrine: Yes (INSULIN PUMP) Diabetes, Insulin dep, Hypothyroidsim HEENT: No Cancer: No Psychosocial: Yes Depression Integumentary: No Blood Disorders: Yes (ANEMIA) Adverse Reaction/Blood Tranf: No Family Medical History Reviewed Nursing Family Hx Physical Exam Vital Signs Vital Signs - First Documented 07/08/22 15:00 Temp 36.6 Pulse 104 Resp 18 B/P (MAP) 186/80 (115) Pulse Ox 100 O2 Delivery Room Air Capillary Refill : Height/Weight/BMI Height: 5'2.00" Weight: 128lbs. 0.0oz. 58.206612mk; 22.29 BMI Method:Stated General Appearance: WD/WN, mild distress HEENT: PERRL/EOMI, normal ENT inspection, TMs normal, pharynx normal Neck: non-tender, full range of motion, supple, normal inspection Respiratory: chest non-tender, lungs clear, normal breath sounds Cardiovascular: normal peripheral pulses, regular rate, rhythm Gastrointestinal: normal bowel sounds, non tender, soft; No distended, No guarding, No rebound; tenderness (generalized) Neurologic/Psychiatric: no motor/sensory deficits, alert, normal mood/affect, oriented x 3 Skin: normal color, warm/dry; No jaundice, No rash Progress/Results/Core Measures Results/Orders Lab Results Laboratory Tests Test 07/08/22 15:08 07/08/22 15:53 Range/Units White Blood Count 12.0 H 4.3-11.0 10^3/uL Red Blood Count 3.79 L 3.80-5.11 10^6/uL Hemoglobin 11.3 L 11.5-16.0 g/dL Hematocrit 33 L 35-52 % Mean Corpuscular Volume 86 80-99 fL Mean Corpuscular Hemoglobin 30 25-34 pg Mean Corpuscular Hemoglobin Concent 35 32-36 g/dL Red Cell Distribution Width 14.2 10.0-14.5 % Platelet Count 212 130-400 10^3/uL Mean Platelet Volume 10.9 9.0-12.2 fL Immature Granulocyte % (Auto) 1 % Neutrophils (%) (Auto) 84 H 42-75 % Lymphocytes (%) (Auto) 11 L 12-44 % Monocytes (%) (Auto) 3 0-12 % Eosinophils (%) (Auto) 1 0-10 % Basophils (%) (Auto) 0 0-10 % Neutrophils # (Auto) 10.1 H 1.8-7.8 10^3/uL Lymphocytes # (Auto) 1.3 1.0-4.0 10^3/uL Monocytes # (Auto) 0.4 0.0-1.0 10^3/uL Eosinophils # (Auto) 0.1 0.0-0.3 10^3/uL Basophils # (Auto) 0.0 0.0-0.1 10^3/uL Immature Granulocyte # (Auto) 0.1 0.0-0.1 10^3/uL Sodium Level 134 L 135-145 MMOL/L Potassium Level 4.0 3.6-5.0 MMOL/L Chloride Level 95 L 98-107 MMOL/L Carbon Dioxide Level 20 L 21-32 MMOL/L Anion Gap 19 H 5-14 MMOL/L Blood Urea Nitrogen 54 H 7-18 MG/DL Creatinine 5.23 H 0.60-1.30 MG/DL Estimat Glomerular Filtration Rate 10 BUN/Creatinine Ratio 10 Glucose Level 304 H 70-105 MG/DL Calcium Level 9.7 8.5-10.1 MG/DL Corrected Calcium 9.8 8.5-10.1 MG/DL Total Bilirubin 0.5 0.1-1.0 MG/DL Aspartate Amino Transf (AST/SGOT) 27 5-34 U/L Alanine Aminotransferase (ALT/SGPT) 25 0-55 U/L Alkaline Phosphatase 72 40-136 U/L C-Reactive Protein High Sensitivity 0.33 0.00-0.50 MG/DL Total Protein 7.6 6.4-8.2 GM/DL Albumin 3.9 3.2-4.5 GM/DL Amylase Level 79 25-125 U/L Lipase 61 8-78 U/L Urine Color YELLOW Urine Clarity CLOUDY Urine pH 7.0 5-9 Urine Specific Brooks 1.010 L 1.016-1.022 Urine Protein 1+ H NEGATIVE Urine Glucose (UA) 3+ H NEGATIVE Urine Ketones TRACE H NEGATIVE Urine Nitrite NEGATIVE NEGATIVE Urine Bilirubin NEGATIVE NEGATIVE Urine Urobilinogen 0.2 < = 1.0 MG/DL Urine Leukocyte Esterase NEGATIVE NEGATIVE Urine RBC (Auto) TRACE-I H NEGATIVE Urine RBC NONE /HPF Urine WBC 0-2 /HPF Urine Squamous Epithelial Cells 5-10 /HPF Urine Crystals NONE /LPF Urine Bacteria LARGE H /HPF Urine Casts NONE /LPF Urine Mucus NEGATIVE /LPF Urine Culture Indicated YES My Orders Orders - KARLO CROFT Ua Culture If Indicated (07/08/22 15:02) Urine Bedside (07/08/22 15:02) Amylase (8/14/22 15:12) Cbc With Automated Diff (07/08/22 15:12) Comprehensive Metabolic Panel (07/08/22 15:12) Hs C Reactive Protein (07/08/22 15:12) Lipase (07/08/22 15:12) Ed Iv/Invasive Line Start (07/08/22 15:12) Ns Iv 1000 Ml (Sodium Chloride 0.9%) (07/08/22 15:15) Ondansetron Injection (Zofran Injectio (07/08/22 15:15) Ct Abdomen/Pelvis Wo (07/08/22 15:48) Urine Culture (07/08/22 15:53) Ed Iv/Invasive Line Start (07/08/22 16:23) Ns Iv 1000 Ml (Sodium Chloride 0.9%) (07/08/22 16:30) Ceftriaxone 1 Gm Pre-Mix (Rocephin 1 Gm (07/08/22 16:30) Prochlorperazine Injection (Compazine In (07/08/22 16:57) Rx-Ondansetron Po (Rx-Zofran Po) (07/08/22 17:44) Medications Given in ED Current Medications Medications Dose Ordered Sig/Iza Route Start Time Stop Time Status Last Admin Dose Admin Ceftriaxone Sodium/Dextrose 50 ml @ 100 mls/hr ONCE ONCE IV 07/08/22 16:30 07/08/22 16:59 DC 07/08/22 16:54 100 MLS/HR Ondansetron HCl 4 mg ONCE ONCE IVP 07/08/22 15:15 07/08/22 15:16 DC 07/08/22 15:19 4 MG Vital Signs/I&O 07/08/22 15:00 Temp 36.6 Pulse 104 Resp 18 B/P (MAP) 186/80 (115) Pulse Ox 100 O2 Delivery Room Air Progress Progress Note : Time: 15:05 Progress Note Patient seen and evaluated, will obtain labs, IV normal saline 1 L and Zofran 4 mg IV 1600 continues to have nausea, will give Compazine 10 mg IM. UTI: Rocephin [address] Abdomen/Pelvis. 1650 patient reports improvement. Taking ice chips. No further nausea. Discussed CT and abnormal signal by pancreas, no elevation in Lipase or Amylase. Will follow up with PCP at for MRI abdomen/Pelvis. Discharge instructions and return precautions reviewed with patient. Diagnostic Imaging Diagonstic Imaging: CT Plain Films/CT/US/NM/MRI: abdomen, pelvis Comments NAME: [facility] REC#: [id number] PT STATUS: REG ER : 1980 PHYSICIAN: KARLO CROFT ADMIT DATE: 07/08/22/ER Signed Date of Exam:07/08/22 CT ABDOMEN/PELVIS WO PROCEDURE: CT abdomen and pelvis without contrast. TECHNIQUE: Multiple contiguous axial images were obtained through the abdomen and pelvis without the use of intravenous contrast. Auto Exposure Controls were utilized during the CT exam to meet ALARA standards for radiation dose reduction. INDICATION: Abdominal pain with nausea and vomiting. Diarrhea. COMPARISON: Prior CT study from 08/28/2019. FINDINGS: Lung bases demonstrate no finding of pneumonia or edema. There is no pleural or pericardial effusion. There is scattered free air demonstrated throughout the abdomen and pelvis. Note is made of a catheter which appears to be a peritoneal dialysis catheter. There is no evidence of a focal intrahepatic abnormality. The gallbladder is contracted without radiodense stone or finding of biliary dilatation. There is a new abnormal low density demonstrated at the head of the pancreas. There is no evidence of significant pancreatic ductal dilatation. The pancreatic head mass is not excluded though this may be reflective of regional inflammation. Consider correlation with lipase. This may be better assessed with a repeat examination with oral and intravenous contrast. The spleen is normal in size. There is no adrenal mass. The kidneys appear nonobstructed without findings of urolithiasis. The stomach is nondistended. The pylorus and 1st portion of the duodenal sweep appear to be narrowed by the process of the pancreatic head. There is no finding of small bowel dilation. The appendix is normal. The colon demonstrates no abnormal colonic thickening. There is a small volume of fluid within the pelvis. The bladder, uterus and adnexal regions appear unremarkable. IMPRESSION: 1. There is scattered free air throughout the abdomen and pelvis that is most likely related to what appears to be a dialysis catheter. This is also likely the etiology of the free fluid within the pelvis. 2. Abnormal low density process now demonstrated at the level of the pancreatic head and uncinate process. Some small calcifications posteriorly were previously present on the prior exam. This may be an inflammatory process such as pancreatitis. A pancreatic head mass cannot be excluded. Consider further assessment with either abdominal MRI or repeat CT imaging with contrast to include both oral and IV contrast. 3. No finding of bowel obstruction or appendicitis. Dictated by: Dictated on workstation # [id number] Dict: 07/08/22 1628 Trans: 07/08/227 [facility] [id number] Interpreted by: GRACIELA CANALES MD Electronically signed by: GRACIELA CANALES MD 07/08/22 1647 Departure Impression Primary Impression: Nausea and vomiting Qualified Codes: R11.2 - Nausea with vomiting, unspecified Additional Impressions: Abdominal pain Qualified Codes: R10.84 - Generalized abdominal pain Urinary tract infection Qualified Codes: N30.01 - Acute cystitis with hematuria Disposition: HOME, SELF-CARE Condition: Improved Departure-Patient Inst. Decision time for Depature: 17:40 Referrals: NO,LOCAL PHYSICIAN (PCP/Family) Primary Care Physician Patient Instructions: Urinary Tract Infection, Adult (DC), Nausea and Vomiting, Adult (DC) Add. Discharge Instructions: Increase water intake. Clear liquid diet for the next 4 to 6 hours then bland diet as tolerated. Take Zofran every 6-8 hours as needed for nausea and vomiting. Adjust your insulin based on your glucose. Speak with your primary care provider at and discuss getting MRI abdomen to assess Pancreas. Take antibiotics as prescribed. Return to the emergency department for new, urgent healthcare problems. All discharge instructions reviewed with patient and/or family. Voiced understanding. Scripts Nitrofurantoin Monohyd/M-Cryst (Macrobid 100 mg Capsule) 100 Mg Capsule 1 TAB PO BID, #14 CAP 0 Refills Prov: KARLO CROFT 07/08/22 KARLO CROFT Jul 08, 2022 15:19
[2022-07-08 15:27] LABS: ALBUMIN 3.9 GM/DL (3.2-4.5)
[2022-07-08 15:28] LABS: CALCIUM 9.7 MG/DL (8.5-10.1)
[2022-07-08 15:30] LABS: TOTAL PROTEIN 7.6 GM/DL (6.4-8.2)
[2022-07-08 15:31] LABS: BILIRUBIN,TOTAL 0.5 MG/DL (0.1-1.0)
[2022-07-08 15:33] LABS: CREATININE SERUM 5.23 MG/DL (0.60-1.30)
[2022-07-08 15:58] LABS: BILIRUBIN,URINE NEGATIVE (NEGATIVE); CLARITY,URINE CLOUDY; COLOR,URINE YELLOW; GLUCOSE, URINE (UA) 3+ (NEGATIVE); KETONES,URINE TRACE (NEGATIVE); LEUKOCYTE ESTERASE ,URINE NEGATIVE (NEGATIVE); NITRITE,URINE NEGATIVE (NEGATIVE); PROTEIN,URINE 1+ (NEGATIVE)
[2022-07-08 16:17] LABS: BACTERIA,URINE LARGE /HPF; WBC,URINE 0-2 /HPF
[2022-07-08] MEDS ORDERED: cefTRIAXone 1 GM PRE-MIX 50 ML IV ONE (16:30)
--- NOTE | 2022-07-08 16:38 | Diagnostic Imaging Report ---
PROCEDURE: CT abdomen and pelvis without contrast. TECHNIQUE: Multiple contiguous axial images were obtained through the abdomen and pelvis without the use of intravenous contrast. Auto Exposure Controls were utilized during the CT exam to meet ALARA standards for radiation dose reduction. INDICATION: Abdominal pain with nausea and vomiting. Diarrhea. COMPARISON: Prior CT study from 08/28/2019. FINDINGS: Lung bases demonstrate no finding of pneumonia or edema. There is no pleural or pericardial effusion. There is scattered free air demonstrated throughout the abdomen and pelvis. Note is made of a catheter which appears to be a peritoneal dialysis catheter. There is no evidence of a focal intrahepatic abnormality. The gallbladder is contracted without radiodense stone or finding of biliary dilatation. There is a new abnormal low density demonstrated at the head of the pancreas. There is no evidence of significant pancreatic ductal dilatation. The pancreatic head mass is not excluded though this may be reflective of regional inflammation. Consider correlation with lipase. This may be better assessed with a repeat examination with oral and intravenous contrast. The spleen is normal in size. There is no adrenal mass. The kidneys appear nonobstructed without findings of urolithiasis. The stomach is nondistended. The pylorus and 1st portion of the duodenal sweep appear to be narrowed by the process of the pancreatic head. There is no finding of small bowel dilation. The appendix is normal. The colon demonstrates no abnormal colonic thickening. There is a small volume of fluid within the pelvis. The bladder, uterus and adnexal regions appear unremarkable. IMPRESSION: 1. There is scattered free air throughout the abdomen and pelvis that is most likely related to what appears to be a dialysis catheter. This is also likely the etiology of the free fluid within the pelvis. 2. Abnormal low density process now demonstrated at the level of the pancreatic head and uncinate process. Some small calcifications posteriorly were previously present on the prior exam. This may be an inflammatory process such as pancreatitis. A pancreatic head mass cannot be excluded. Consider further assessment with either abdominal MRI or repeat CT imaging with contrast to include both oral and IV contrast. 3. No finding of bowel obstruction or appendicitis. Dictated by: Dictated on workstation # [id number]
[2022-07-08] MEDS ORDERED: PROCHLORPERAZINE 10 MG/2ML INJ (COMPAZINE) IM STA (16:57)
[2022-07-08] MEDS ORDERED: RX-ONDANSETRON 4 MG ODT (ZOFRAN) PPK #4 PO STA (17:44)
[2022-07-08] MEDS ORDERED: NITR-65 PO (17:47)
[2022-07-08 18:00] VITALS: BP 185/73
== END 2022-07-08 18:00 | disposition home or self-care (01) ==
LOC: EDUNIT# 14:39 → ER 14:41
DX: N39.0 Urinary tract infection, site not specified (principal); R11.2 Nausea with vomiting, unspecified; E11.9 Type 2 diabetes mellitus without complications; Z96.41 Presence of insulin pump (external) (internal); Z28.310 Unvaccinated for COVID-19; Z79.4 Long term (current) use of insulin
CPT/HCPCS: 36415; 74176; 80053; 81000; 82150; 83690; 84703; 85025; 86141; 87077; 87088; 87186

== ENCOUNTER 2022-09-07 12:43 | Emergency (ER) | payer MEDICARE, MEDICAID ==
[~2022-09-07] VITALS: Ht 157.5 cm; Wt 53.6 kg
[2022-09-07] MEDS ORDERED: inSUlin (REGULAR) HUMAN 1 UNIT/0.01 ML (CHARGE PER UNIT) IV STA (13:10)
[2022-09-07] MEDS ORDERED: LACTATED RINGERS 1,000 ML IV STA (13:10)
[2022-09-07] MEDS ORDERED: ONDANSETRON 4 MG/2 ML (SDV) Z0FRAN IVP ONE (13:15)
--- NOTE | 2022-09-07 13:23 | ED General ---
General Chief Complaint: Glucose Problems Stated Complaint: HIGH BS OVER 600 Nursing Triage Note: PT STATES SHE IS HERE FOR DKA. STATES HER BG IS OVER 600, N/V. STATES SHE GOES INTO DKA OFTEN, LAST TIME WAS A FEW MONTHS AGO. Source of Information: Patient Exam Limitations: No Limitations History of Present Illness Date Seen by Provider: Sep 07, 2022 Time Seen by Provider: 13:02 Initial Comments Here with concerns of diabetic ketoacidosis. States blood sugar is over 600 on her monitor and has been since yesterday. Patient is known diabetic on insulin and insulin pump. States her pump has been working and she is not out of insulin. Reports taking her long-acting insulin as directed. Denies recent illness. States that she goes in and out of this. She has had nausea and vomiting. Reports decreased urination now. Has had DKA off-and-on with last episode 2 to 3 months ago per the patient. Denies sore throat, runny nose, cough, chest pain, breathing problems or diarrhea. Patient is not vaccinated for COVID but denies upper respiratory symptoms. Timing/Duration: 1-2 Days Severity: Moderate, Severe Associated Systoms: No Chest Pain, No Cough, No Fever/Chills; Nausea/Vomiting; No Shortness of Air; Weakness Allergies and Home Medications Allergies Coded Allergies: Pbmkwvg-Ltm-Qan Reductase Inhibitor (Verified Allergy, Severe, ANAPHYLAXIS, 03/18/12) difficulty breathing, BLE swelling lisinopril (Verified Allergy, Severe, ANAPHYLAXIS, 03/18/12) difficulty breathing, swelling of extremities gabapentin (Verified Allergy, Unknown, 04/23/18) losartan (Verified Allergy, Unknown, 04/23/18) midazolam (Verified Allergy, Unknown, HIVES, 06/06/18) niacin (Verified Allergy, Unknown, 04/23/18) Patient Home Medication List Home Medication List Reviewed: Yes Amlodipine Besylate (Norvasc) 5 Mg Tablet, 2.5 MG PO DAILY, (Reported) Entered as Reported by: GLORY SLOAN on 04/10/22 1124 Aripiprazole (Aripiprazole) 5 Mg Tablet, 5 MG PO DAILY, (Reported) Entered as Reported by: GLORY SLOAN on 04/10/22 1124 Calcium Acetate (Calcium Acetate) 667 Mg Capsule, 667 MG PO DAILY, (Reported) Entered as Reported by: GLORY SLOAN on 04/10/22 112 Desvenlafaxine Succinate (Pristiq ER) 50 Mg Tab.er.24h, 50 MG PO DAILY, (Reported) Entered as Reported by: GLORY SLOAN on 04/10/221123 Levothyroxine Sodium (Levothyroxine) 50 Mcg Capsule, 50 MCG PO DAILY, (Reported) Entered as Reported by: GLORY SLOAN on 04/10/22 112 Loperamide HCl (Loperamide) 2 Mg Capsule, 2 MG PO UD, (Reported) Entered as Reported by: GLORY SLOAN on 04/10/221123 Nitrofurantoin Monohyd/M-Cryst (Macrobid 100 mg Capsule) 100 Mg Capsule, 1 TAB PO BID Prescribed by: KARLO CROFT on 07/08/22 174 Pramipexole (Mirapex) 0.125 Mg Tablet, 0.125 MG PO HS, (Reported) Entered as Reported by: GLORY SLOAN on 04/10/221123 Propranolol HCl (Propranolol HCl) 40 Mg Tablet, 40 MG PO BID, (Reported) Entered as Reported by: GLORY SLOAN on 04/10/221123 Trazodone HCl (Trazodone HCl) 50 Mg Tablet, 50 MG PO HS PRN for PRN, (Reported) Entered as Reported by: GLORY SLOAN on 04/10/221123 Review of Systems Review of Systems Constitutional: see HPI; No chills, No fever Respiratory: No cough, No short of breath Cardiovascular: No chest pain, No edema Gastrointestinal: nausea, vomiting Genitourinary: decreased output Musculoskeletal: no symptoms reported Skin: no symptoms reported All Other Systems Reviewed Negative Unless Noted: Yes Past Brvhtoy-Qfxfyp-Ahlynj Hx Patient Social History Tobacco Use?: No Substance use?: No Alcohol Use?: No Pt feels they are or have been: No Immunizations Up To Date Tetanus Booster (TDap): Less than 5yrs First/Initial COVID19 Vaccinat: NONE Second COVID19 Vaccination Hayden: NONE Third COVID19 Vaccination Date: NONE Seasonal Allergies Seasonal Allergies: No Past Medical History Surgeries: Yes (bilat tubal ligation) Tubal Ligation Respiratory: No Cardiac: Yes Hypertension Neurological: Yes Headaches /Migraines Reproductive Disorders: No 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 0.0oz. 58.674327ml; 21.00 BMI Method:Stated General Appearance: No Apparent Distress, WD/WN HEENT: PERRL/EOMI; No Pharyngeal Erythema; Other (Mucous membranes dry) Neck: Non Tender, Supple Respiratory: Lungs Clear, Normal Breath Sounds Cardiovascular: Regular Rate, Rhythm, No Murmur Gastrointestinal: Non Tender, Soft Back: Normal Inspection, No CVA Tenderness, No Vertebral Tenderness Extremity: Normal Range of Motion, Non Tender Neurologic/Psychiatric: Alert, Oriented x3 Skin: Normal Color, Warm/Dry Progress/Results/Core Measures Suspected Sepsis SIRS Temperature: Pulse: 79 Respiratory Rate: 16 Laboratory Tests 09/07/22 13:25: White Blood Count 19.6H Blood Pressure 109 /34 Mean: 59 Laboratory Tests 09/07/22 13:25: Creatinine 6.21H, Platelet Count 324, Total Bilirubin 0.6 Results/Orders Lab Results Laboratory Tests Test 09/07/22 13:25 09/07/22 13:32 09/07/22 14:35 Range/Units White Blood Count 19.6 H 4.3-11.0 10^3/uL Red Blood Count 3.43 L 3.80-5.11 10^6/uL Hemoglobin 10.9 L 11.5-16.0 g/dL Hematocrit 38 35-52 % Mean Corpuscular Volume 111 H 80-99 fL Mean Corpuscular Hemoglobin 32 25-34 pg Mean Corpuscular Hemoglobin Concent 29 L 32-36 g/dL Red Cell Distribution Width 17.8 H 10.0-14.5 % Platelet Count 324 130-400 10^3/uL Mean Platelet Volume 11.8 9.0-12.2 fL Immature Granulocyte % (Auto) 1 % Neutrophils (%) (Auto) 90 H 42-75 % Lymphocytes (%) (Auto) 3 L 12-44 % Monocytes (%) (Auto) 6 0-12 % Eosinophils (%) (Auto) 0 0-10 % Basophils (%) (Auto) 0 0-10 % Neutrophils # (Auto) 17.7 H 1.8-7.8 10^3/uL Lymphocytes # (Auto) 0.7 L 1.0-4.0 10^3/uL Monocytes # (Auto) 1.1 H 0.0-1.0 10^3/uL Eosinophils # (Auto) 0.0 0.0-0.3 10^3/uL Basophils # (Auto) 0.0 0.0-0.1 10^3/uL Immature Granulocyte # (Auto) 0.1 0.0-0.1 10^3/uL Neutrophils % (Manual) 91 % Lymphocytes % (Manual) 4 % Monocytes % (Manual) 3 % Eosinophils % (Manual) 0 % Basophils % (Manual) 0 % Band Neutrophils 2 % Anisocytosis SLIGHT Sodium Level 115 *L 135-145 MMOL/L Potassium Level 7.7 *H 3.6-5.0 MMOL/L Chloride Level 80 L 98-107 MMOL/L Carbon Dioxide Level 9 *L 21-32 MMOL/L Anion Gap 26 H 5-14 MMOL/L Blood Urea Nitrogen 74 H 7-18 MG/DL Creatinine 6.21 H 0.60-1.30 MG/DL Estimat Glomerular Filtration Rate 8 BUN/Creatinine Ratio 12 Glucose Level 1372 *H 70-105 MG/DL Calcium Level 8.3 L 8.5-10.1 MG/DL Corrected Calcium 8.5 8.5-10.1 MG/DL Phosphorus Level 7.2 H 2.3-4.7 MG/DL Magnesium Level 2.7 H 1.6-2.4 MG/DL Total Bilirubin 0.6 0.1-1.0 MG/DL Aspartate Amino Transf (AST/SGOT) 25 5-34 U/L Alanine Aminotransferase (ALT/SGPT) 29 0-55 U/L Alkaline Phosphatase 75 40-136 U/L C-Reactive Protein High Sensitivity 4.99 H 0.00-0.50 MG/DL Total Protein 6.6 6.4-8.2 GM/DL Albumin 3.7 3.2-4.5 GM/DL Blood Gas Puncture Site R ARM Blood Gas Patient Temperature 35.6 Arterial Blood pH 7.22 *L 7.37-7.43 Arterial Blood Partial Pressure CO2 26 L 35-45 MMHG Arterial Blood Partial Pressure O2 37 *L 79-93 MMHG Arterial Blood HCO3 10 *L 23-27 MMOL/L Arterial Blood Total CO2 11.1 L 21.0-31.0 MMOL/L Arterial Blood Oxygen Saturation 66 L 94-100 % Arterial Blood Base Excess -16.1 L -2.5-2.5 MMOL/L Hang Test POSITIVE Blood Gas Ventilator Setting NO Blood Gas Inspired Oxygen UNK Urine Color YELLOW Urine Clarity CLEAR Urine pH 5.0 5-9 Urine Specific Grahn 1.015 L 1.016-1.022 Urine Protein NEGATIVE NEGATIVE Urine Glucose (UA) 3+ H NEGATIVE Urine Ketones TRACE H NEGATIVE Urine Nitrite NEGATIVE NEGATIVE Urine Bilirubin NEGATIVE NEGATIVE Urine Urobilinogen 0.2 < = 1.0 MG/DL Urine Leukocyte Esterase NEGATIVE NEGATIVE Urine RBC (Auto) TRACE-I H NEGATIVE Urine RBC RARE /HPF Urine WBC 2-5 /HPF Urine Squamous Epithelial Cells 5-10 /HPF Urine Crystals NONE /LPF Urine Bacteria FEW H /HPF Urine Casts NONE /LPF Urine Mucus NEGATIVE /LPF Urine Culture Indicated NO My Orders Orders - DELANO MÁRQUEZ MD Arterial Blood Gas (09/07/22 13:10) Cbc With Automated Diff (09/07/22 13:10) Comprehensive Metabolic Panel (09/07/22 13:10) Hs C Reactive Protein (09/07/22 13:10) Magnesium (09/07/22 13:10) Ua Culture If Indicated (09/07/22 13:10) Phosphorus (09/07/22 13:10) Ondansetron Injection (Zofran Injectio (09/07/22 13:15) Lactated Ringers (Lr 1000 Ml Iv Solution (09/07/22 13:10) Ed Iv/Invasive Line Start (09/07/22 13:10) Insulin (Regular) Human (Novolin R (Per (09/07/22 13:10) Manual Differential (09/07/22 13:25) Ns Iv 1000 Ml (Sodium Chloride 0.9%) (09/07/22 15:15) Chest 1 View, Ap/Pa Only (09/07/22 16:08) Ondansetron Injection (Zofran Injectio (09/07/22 18:38) Medications Given in ED Current Medications Medications Dose Ordered Sig/Iza Route Start Time Stop Time Status Last Admin Dose Admin Calcium Gluconate/ Sodium Chloride 100 ml @ 120 mls/hr ONCE ONCE IV 09/07/22 14:30 09/07/22 15:19 DC 09/07/22 14:37 120 MLS/HR Calcium Gluconate/ Sodium Chloride 100 ml @ 120 mls/hr ONCE ONCE IV 09/07/22 14:30 09/07/22 15:19 DC 09/07/22 14:37 120 MLS/HR Insulin Human Regular 7 unit ONCE ONCE IV 09/07/22 14:30 09/07/22 14:31 DC 09/07/22 14:28 7 UNIT Ondansetron HCl 4 mg ONCE ONCE IVP 09/07/22 13:15 09/07/22 13:16 DC 09/07/22 13:33 4 MG Vital Signs/I&O 09/07/22 13:00 Temp 35.6 Pulse 79 Resp 16 B/P (MAP) 109/34 (59) Pulse Ox 100 Capillary Refill : Less Than 3 Seconds Blood Pressure Mean: 59 Progress Note : Progress Note Seen and evaluated. IV, labs, UA and ABG ordered. LR 1 L bolus ordered. Monitor patient. 1502: Patient has significant elevation of blood sugar greater than 1300 with hyperkalemia and acidosis noted on ABG. She has received 2 A of calcium gluconate as well as 7 units of insulin IV. She remains on her insulin pump. We have initiated normal saline 1 L bolus. Patient is on peritoneal dialysis which exceeds the level of care for our center. Her normal admission center is [facility] in [facility]. I have initiated transfer proceedings with them. 1520: I have discussed all current pertinent findings and treatment with the sales service coordinator. I am awaiting callback from range feeder for transfer. Transfer discussed with patient who agrees. Monitor patient. 1601: I have added chest x-ray. I did speak with the range feeder at [facility] in [place], [place] who is excepted the patient to the ICU. We did review case in entirety. Patient agrees to transfer. accepting. Patient will go by ground transportation when bed number is given. 1830: Bed received. Patient to be [facility] via [facility] and they are here to initiate transfer. ECG Initial ECG Impression Date: Sep 07, 2022 Initial ECG Impression Time: 14:26 Initial ECG Rate: 107 Initial ECG Rhythm: S.Tach Initial ECG Comparisson: Unchanged (04/10/2022) Comment Sinus tachycardia with normal axis. No evidence of ST elevation [place]. Does have artifact in the lateral leads. Interpreted by me. Diagnostic Imaging Diagonstic Imaging: Xray Plain Films/CT/US/NM/MRI: chest Comments [facility] [place], [place] NAME: [facility] REC#: [id number] PT STATUS: REG ER : 1980 PHYSICIAN: DELANO MÁRQUEZ MD ADMIT DATE: 09/07/22/ER Draft Date of Exam:09/07/22 CHEST 1 VIEW, AP/PA ONLY INDICATION: Weakness. COMPARISON: 01/23/2019. FINDINGS: Single frontal view of the chest demonstrates normal heart size and pulmonary vascularity. The lungs are well aerated and clear. No large pleural effusion or pneumothorax is seen. The visualized osseous structures show no acute abnormalities. IMPRESSION: No acute cardiopulmonary process. Dictated on workstation # [id number] Dict: 09/07/22 1633 Trans: 09/07/22 1634 [facility] [id number] Interpreted by: VIC RENEE MD Electronically signed by: Critical Care Note Critical Care Start Time: 13:02 Stop Time: 16:16 Total Time (minutes) 30 minutes of critical care time excluding separately billable procedures for evaluation, management and transfer requirements. See progress note for details. Departure Impression Primary Impression: Diabetic ketoacidosis Qualified Codes: E10.10 - Type 1 diabetes mellitus with ketoacidosis without coma Additional Impressions: End stage renal disease on dialysis Hyperkalemia Disposition: XF SHT-TRM HOSP Condition: Critical Transfer Transfer Reason: Exceeds level of care Time Spoke to Accepting Phy: 16:01 Transfer Progress Notes Patient will go to [facility] in [facility] due to end-stage renal disease on peritoneal dialysis and diabetic ketoacidosis requiring ICU admission. Patient accepted by Dr. Weeks. Transfer Time: 18:30 Transfer Facility: [place], [place] Method of Transfer: EMS Departure-Patient Inst. Referrals: NO,LOCAL PHYSICIAN (PCP/Family) Primary Care Physician DELANO MÁRQUEZ MD Sep 07, 2022 13:23
[2022-09-07 13:34] LABS: BASOPHILS % (AUTO) 0 % (0-10); EOSINOPHILS % (AUTO) 0 % (0-10); HEMATOCRIT 38 % (35-52); HEMOGLOBIN 10.9 g/dL (11.5-16.0); LYMPHOCYTES # (AUTO) 0.7 10^3/uL (1.0-4.0); LYMPHOCYTES % (AUTO) 3 % (12-44); MEAN CORPUSCULAR HEMOGLOBIN 32 pg (25-34); MEAN CORPUSCULAR HGB CONC 29 g/dL (32-36); MEAN CORPUSCULAR VOLUME 111 fL (80-99); MEAN PLATELET VOLUME 11.8 fL (9.0-12.2); MONOCYTES # (AUTO) 1.1 10^3/uL (0.0-1.0); MONOCYTES % (AUTO) 6 % (0-12); NEUTROPHILS # (AUTO) 17.7 10^3/uL (1.8-7.8); NEUTROPHILS % (AUTO) 90 % (42-75); PLATELET COUNT 324 10^3/uL (130-400); WHITE BLOOD COUNT 19.6 10^3/uL (4.3-11.0)
[2022-09-07 13:53] LABS: ABG BASE EXCESS -16.1 MMOL/L (-2.5-2.5); ABG PCO2 26 MMHG (35-45); ABG TCO2 11.1 MMOL/L (21.0-31.0)
[2022-09-07 13:54] LABS: ALBUMIN 3.7 GM/DL (3.2-4.5); BAND NEUTROPHILS 2 %; BASOPHILS % (MANUAL) 0 %; EOSINOPHILS % (MANUAL) 0 %; LYMPHOCYTES % (MANUAL) 4 %; MONOCYTES % (MANUAL) 3 %; NEUTROPHILS % (MANUAL) 91 %
[2022-09-07 13:54] LABS: ABG PH 7.22 (7.37-7.43)
[2022-09-07 13:55] LABS: ANISOCYTOSIS SLIGHT; CALCIUM 8.3 MG/DL (8.5-10.1)
[2022-09-07 13:55] LABS: ABG OXYGEN SATURATION 66 % (94-100); ABG PO2 37 MMHG (79-93); ALLENS TEST POSITIVE; PATIENT TEMP 35.6; VENTILATOR NO
[2022-09-07 13:56] LABS: TOTAL PROTEIN 6.6 GM/DL (6.4-8.2)
[2022-09-07 13:58] LABS: BILIRUBIN,TOTAL 0.6 MG/DL (0.1-1.0)
[2022-09-07 13:59] LABS: PHOSPHORUS 7.2 MG/DL (2.3-4.7)
[2022-09-07 14:00] LABS: CREATININE SERUM 6.21 MG/DL (0.60-1.30)
[2022-09-07 14:03] LABS: MAGNESIUM 2.7 MG/DL (1.6-2.4)
[2022-09-07 14:05] LABS: POTASSIUM 7.7 MMOL/L (3.6-5.0)
[2022-09-07] MEDS ORDERED: CALC GLUC 1 GM/100 ML IVPB 100 ML IV ONE ×2 (14:30)
[2022-09-07] MEDS ORDERED: inSUlin (REGULAR) HUMAN 1 UNIT/0.01 ML (CHARGE PER UNIT) IV ONE (14:30)
[2022-09-07 14:43] LABS: BILIRUBIN,URINE NEGATIVE (NEGATIVE); CLARITY,URINE CLEAR; COLOR,URINE YELLOW; GLUCOSE, URINE (UA) 3+ (NEGATIVE); KETONES,URINE TRACE (NEGATIVE); LEUKOCYTE ESTERASE ,URINE NEGATIVE (NEGATIVE); NITRITE,URINE NEGATIVE (NEGATIVE); PROTEIN,URINE NEGATIVE (NEGATIVE)
[2022-09-07 14:52] LABS: BACTERIA,URINE FEW /HPF; RBC,URINE RARE /HPF
[2022-09-07] MEDS ORDERED: NS IV 1000 ML 1,000 ML IV SCH (15:15)
--- NOTE | 2022-09-07 16:35 | Diagnostic Imaging Report ---
INDICATION: Weakness. COMPARISON: 01/23/2019. FINDINGS: Single frontal view of the chest demonstrates normal heart size and pulmonary vascularity. The lungs are well aerated and clear. No large pleural effusion or pneumothorax is seen. The visualized osseous structures show no acute abnormalities. IMPRESSION: No acute cardiopulmonary process. Dictated by: Dictated on workstation # [id number]
[2022-09-07] MEDS ORDERED: ONDANSETRON 4 MG/2 ML (SDV) Z0FRAN ONE (18:38)
[2022-09-07 18:45] VITALS: BP 118/49
== END 2022-09-07 18:45 | disposition short-term general hospital (02) ==
LOC: EDUNIT# 12:43 → ER 12:44
DX: E11.22 Type 2 diabetes mellitus with diabetic chronic kidney disease (principal); I12.0 Hypertensive chronic kidney disease with stage 5 chronic kidney disease or end stage renal disease; N18.6 End stage renal disease; E11.10 Type 2 diabetes mellitus with ketoacidosis without coma; D63.1 Anemia in chronic kidney disease; E87.5 Hyperkalemia; Z99.2 Dependence on renal dialysis; Z28.310 Unvaccinated for COVID-19; Z96.41 Presence of insulin pump (external) (internal); Z79.4 Long term (current) use of insulin
CPT/HCPCS: 36415; 71045; 80053; 81000; 82805; 83735; 84100; 85007; 85025; 85027; 86141

== ENCOUNTER 2022-09-13 11:00 | Emergency (ER) | payer MEDICARE, MEDICAID ==
[~2022-09-13] VITALS: Ht 157 cm; Wt 53.6 kg
--- NOTE | 2022-09-13 11:30 | ED General ---
General Chief Complaint: Glucose Problems Stated Complaint: LOW BLOOD SUGAR Source of Information: Patient, EMS Exam Limitations: No Limitations History of Present Illness Date Seen by Provider: Sep 13, 2022 Time Seen by Provider: 11:13 Initial Comments 42-year-old female with past medical history of type 1 diabetes with an insulin pump coming in via EMS due to low blood sugar. Patient stated she was normal last night, ate a normal dinner, and given appropriate bolus of her mealtime NovoLog. She does not do any long-acting insulin since she has the insulin pump going at 0.45 units/h. She was recently discharged from [facility] for DKA. She states they made no changes to her insulin regimen. She remembers waking up this morning and going to the bathroom, but that is really all she remembers. Her family found her about an hour prior to arrival here unresponsive. EMS on arrival her blood sugar was just above 20. They started D10 and she slowly became more responsive. She denies being sick recently, fever, chest pain, shortness of breath, abdominal pain, recent vomiting, diarrhea, weakness, numbness, or any other concerns. She is unsure how this could have happened. She does believe her insulin pump has been malfunctioning, EMS took it out. She does have a new one coming at some point. Allergies and Home Medications Allergies Coded Allergies: Swymric-Tdu-Izb Reductase Inhibitor (Verified Allergy, Severe, ANAPHYLAXIS, 03/18/12) difficulty breathing, BLE swelling lisinopril (Verified Allergy, Severe, ANAPHYLAXIS, 03/18/12) difficulty breathing, swelling of extremities gabapentin (Verified Allergy, Unknown, 04/23/18) losartan (Verified Allergy, Unknown, 04/23/18) midazolam (Verified Allergy, Unknown, HIVES, 06/06/18) niacin (Verified Allergy, Unknown, 04/23/18) Patient Home Medication List Home Medication List Reviewed: Yes Amlodipine Besylate (Norvasc) 5 Mg Tablet, 2.5 MG PO DAILY, (Reported) Entered as Reported by: GLORY SLOAN on 04/10/22 1124 Aripiprazole (Aripiprazole) 5 Mg Tablet, 5 MG PO DAILY, (Reported) Entered as Reported by: GLORY SLOAN on 04/10/22 1124 Calcium Acetate (Calcium Acetate) 667 Mg Capsule, 667 MG PO DAILY, (Reported) Entered as Reported by: GLORY SLOAN on 04/10/22 112 Desvenlafaxine Succinate (Pristiq ER) 50 Mg Tab.er.24h, 50 MG PO DAILY, (Reported) Entered as Reported by: GLORY SLOAN on 04/10/22 112 Insulin Glargine,Hum.rec.anlog (Lantus) 100 Unit/Ml Vial, 10 UNIT SQ HS Prescribed by: JEFF HOOPER on 09/13/22 1224 Levothyroxine Sodium (Levothyroxine) 50 Mcg Capsule, 50 MCG PO DAILY, (Reported) Entered as Reported by: GLORY SLOAN on 04/10/22 112 Loperamide HCl (Loperamide) 2 Mg Capsule, 2 MG PO UD, (Reported) Entered as Reported by: GLORY SLOAN on 04/10/221123 Nitrofurantoin Monohyd/M-Cryst (Macrobid 100 mg Capsule) 100 Mg Capsule, 1 TAB PO BID Prescribed by: KARLO CROFT on 07/08/22 1747 Pramipexole (Mirapex) 0.125 Mg Tablet, 0.125 MG PO HS, (Reported) Entered as Reported by: GLORY SLOAN on 04/10/22 112 Propranolol HCl (Propranolol HCl) 40 Mg Tablet, 40 MG PO BID, (Reported) Entered as Reported by: GLORY SLOAN on 04/10/22 112 Trazodone HCl (Trazodone HCl) 50 Mg Tablet, 50 MG PO HS PRN for PRN, (Reported) Entered as Reported by: GLORY SLOAN on 04/10/221123 Review of Systems Review of Systems Constitutional: No fever EENTM: No blurred vision Respiratory: no symptoms reported Cardiovascular: no symptoms reported Gastrointestinal: no symptoms reported Genitourinary: no symptoms reported Musculoskeletal: no symptoms reported Skin: no symptoms reported Psychiatric/Neurological: See HPI Hematologic/Lymphatic: No Symptoms Reported Immunological/Allergic: no symptoms reported All Other Systems Reviewed Negative Unless Noted: Yes Past Oqftjhz-Gawnlk-Zubobb Hx Patient Social History Substance use?: No Immunizations Up To Date Tetanus Booster (TDap): Less than 5yrs First/Initial COVID19 Vaccinat: NONE Second COVID19 Vaccination Hayden: NONE Third COVID19 Vaccination Date: NONE Seasonal Allergies Seasonal Allergies: No Past Medical History Surgeries: Yes (bilat tubal ligation) Tubal Ligation Respiratory: No Cardiac: Yes Hypertension Neurological: Yes Headaches /Migraines 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 0.0oz. 58.270437ja; 21.00 BMI Method:Stated General Appearance: No Apparent Distress, Thin Eyes: Bilateral Eye Normal Inspection, Bilateral Eye PERRL HEENT: PERRL/EOMI, Normal ENT Inspection, Pharynx Normal Neck: Full Range of Motion, Normal Inspection, Non Tender, Supple Respiratory: Chest Non Tender, Lungs Clear, Normal Breath Sounds, No Accessory Muscle Use, No Respiratory Distress Cardiovascular: Regular Rate, Rhythm, No Edema, Normal Peripheral Pulses Gastrointestinal: Normal Bowel Sounds, Non Tender, Soft; No Distended, No Guarding Back: Normal Inspection, No CVA Tenderness Extremity: Normal Capillary Refill, Normal Inspection, Normal Range of Motion, Non Tender, No Calf Tenderness, No Pedal Edema Neurologic/Psychiatric: Alert, Oriented x3, No Motor/Sensory Deficits, Normal Mood/Affect, 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 Norm as Tested Skin: Normal Color, Warm/Dry Lymphatic: No Adenopathy Progress/Results/Core Measures Suspected Sepsis SIRS Temperature: Pulse: Respiratory Rate: Laboratory Tests 09/13/22 11:45: White Blood Count 9.0 Blood Pressure / Mean: Laboratory Tests 09/13/22 11:45: Creatinine 3.80#H, Platelet Count 169, Total Bilirubin 0.5 Results/Orders Lab Results Laboratory Tests Test 09/13/22 11:20 09/13/22 11:45 Range/Units Glucometer 80 70-110 MG/DL White Blood Count 9.0 4.3-11.0 10^3/uL Red Blood Count 4.90 3.80-5.11 10^6/uL Hemoglobin 15.1 # 11.5-16.0 g/dL Hematocrit 48 35-52 % Mean Corpuscular Volume 98 80-99 fL Mean Corpuscular Hemoglobin 31 25-34 pg Mean Corpuscular Hemoglobin Concent 32 32-36 g/dL Red Cell Distribution Width 16.0 H 10.0-14.5 % Platelet Count 169 130-400 10^3/uL Mean Platelet Volume 11.6 9.0-12.2 fL Immature Granulocyte % (Auto) 1 % Neutrophils (%) (Auto) 77 H 42-75 % Lymphocytes (%) (Auto) 13 12-44 % Monocytes (%) (Auto) 7 0-12 % Eosinophils (%) (Auto) 1 0-10 % Basophils (%) (Auto) 0 0-10 % Neutrophils # (Auto) 7.0 1.8-7.8 10^3/uL Lymphocytes # (Auto) 1.2 1.0-4.0 10^3/uL Monocytes # (Auto) 0.7 0.0-1.0 10^3/uL Eosinophils # (Auto) 0.1 0.0-0.3 10^3/uL Basophils # (Auto) 0.0 0.0-0.1 10^3/uL Immature Granulocyte # (Auto) 0.1 0.0-0.1 10^3/uL Sodium Level 136 135-145 MMOL/L Potassium Level 4.2 3.6-5.0 MMOL/L Chloride Level 97 L 98-107 MMOL/L Carbon Dioxide Level 29 21-32 MMOL/L Anion Gap 10 5-14 MMOL/L Blood Urea Nitrogen 36 H 7-18 MG/DL Creatinine 3.80 #H 0.60-1.30 MG/DL Estimat Glomerular Filtration Rate 15 BUN/Creatinine Ratio 9 Glucose Level 210 H 70-105 MG/DL Calcium Level 9.4 8.5-10.1 MG/DL Corrected Calcium 9.8 8.5-10.1 MG/DL Total Bilirubin 0.5 0.1-1.0 MG/DL Aspartate Amino Transf (AST/SGOT) 242 H 5-34 U/L Alanine Aminotransferase (ALT/SGPT) 206 H 0-55 U/L Alkaline Phosphatase 94 40-136 U/L Total Protein 6.7 6.4-8.2 GM/DL Albumin 3.5 3.2-4.5 GM/DL My Orders Orders - JEFF HOOPER MD Cbc With Automated Diff (09/13/22 11:25) Comprehensive Metabolic Panel (09/13/22 11:25) Accucheck Stat UD (09/13/22 11:25) Vital Signs/I&O 09/13/22 11:15 Temp 32.0 Pulse 60 B/P (MAP) 176/109 (131) Pulse Ox 95 O2 Delivery Room Air Capillary Refill : Progress Note : Progress Note 42-year-old female with above history coming in due to low blood sugar. ABCs were intact and vitals were stable on presentation. The patient is alert, oriented, and at her baseline arrival here after receiving glucose per EMS. Pump has already been taken out. The patient is eating for us. Multiple repeat glucoses continue to be appropriate. 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 Hargrove. Given we think it is a pump malfunction, we will translate her pump settings over to insulin. She was on NovoLog 0.45 units/h with the pump. She will get Lantus 10 units at night, NovoLog 1 unit for every 15 g of carbs, or 1 unit for every 50/150 she is with a Premeal glucose. She should call daily to give them more data and they can continue to adjust her insulin as needed. Departure Impression Primary Impression: Hypoglycemia associated with diabetes Disposition: 01 HOME, SELF-CARE Condition: Improved Departure-Patient Inst. Decision time for Depature: 12:30 Referrals: NO,LOCAL PHYSICIAN (PCP/Family) Primary Care Physician Patient Instructions: Low Blood Sugar, Adult ED Add. Discharge Instructions: It is possible you had a pump malfunction versus some other etiology of your low sugar. I contacted Dr. Hargrove at and she recommends switching over to Lantus 10 units at night, 1 unit of your NovoLog for every 15 g of carbs or 1 unit for every 50 over 150 pre meal. Please call at [phone] to give them data daily on your blood sugars and how much insulin you are receiving so they can continue to make adjustments. They can also work with you if you get a new pump. The Lantus was sent to [facility]. Scripts Insulin Glargine,Hum.rec.anlog (Lantus) 100 Unit/Ml Vial 10 UNIT SQ HS for 30 Days, #1 EA 3 Refills Prov: JEFF HOOPER MD 09/13/22 Work/School Note: Work Release Form Date Seen in the Emergency Department: Sep 13, 2022 Return to Work: Sep 14, 2022 Restrictions: No Restrictions JEFF HOOPER MD Sep 13, 2022 11:30
[2022-09-13 11:55] LABS: BASOPHILS % (AUTO) 0 % (0-10); EOSINOPHILS # (AUTO) 0.1 10^3/uL (0.0-0.3); EOSINOPHILS % (AUTO) 1 % (0-10); HEMATOCRIT 48 % (35-52); HEMOGLOBIN 15.1 g/dL (11.5-16.0); LYMPHOCYTES # (AUTO) 1.2 10^3/uL (1.0-4.0); LYMPHOCYTES % (AUTO) 13 % (12-44); MEAN CORPUSCULAR HEMOGLOBIN 31 pg (25-34); MEAN CORPUSCULAR HGB CONC 32 g/dL (32-36); MEAN CORPUSCULAR VOLUME 98 fL (80-99); MEAN PLATELET VOLUME 11.6 fL (9.0-12.2); MONOCYTES # (AUTO) 0.7 10^3/uL (0.0-1.0); MONOCYTES % (AUTO) 7 % (0-12); NEUTROPHILS % (AUTO) 77 % (42-75); PLATELET COUNT 169 10^3/uL (130-400)
[2022-09-13 12:08] LABS: ALBUMIN 3.5 GM/DL (3.2-4.5)
[2022-09-13 12:09] LABS: POTASSIUM 4.2 MMOL/L (3.6-5.0)
[2022-09-13 12:10] LABS: CALCIUM 9.4 MG/DL (8.5-10.1)
[2022-09-13 12:11] LABS: TOTAL PROTEIN 6.7 GM/DL (6.4-8.2)
[2022-09-13 12:13] LABS: BILIRUBIN,TOTAL 0.5 MG/DL (0.1-1.0)
[2022-09-13 12:15] LABS: CREATININE SERUM 3.8 MG/DL (0.60-1.30)
[2022-09-13] MEDS ORDERED: INSU100V6 SQ (12:24)
[2022-09-13 12:50] VITALS: BP 159/88
== END 2022-09-13 12:50 | disposition home or self-care (01) ==
LOC: EDUNIT# 11:12 → ER 11:13
DX: E10.649 Type 1 diabetes mellitus with hypoglycemia without coma (principal); Z28.310 Unvaccinated for COVID-19
CPT/HCPCS: 36415; 80053; 82947; 85025

== ENCOUNTER → 2022-10-26 | Outpatient (CLI) | payer MEDICARE, MEDICAID ==
[~2022-10-26] MED LIST changes: +INSU100V6 SQ
[2022-10-26 09:25] LABS: BASOPHILS # (AUTO) 0.1 10^3/uL (0.0-0.1); BASOPHILS % (AUTO) 1 % (0-10); EOSINOPHILS # (AUTO) 0.6 10^3/uL (0.0-0.3); EOSINOPHILS % (AUTO) 7 % (0-10); HEMATOCRIT 34 % (35-52); HEMOGLOBIN 11.3 g/dL (11.5-16.0); LYMPHOCYTES # (AUTO) 2.1 10^3/uL (1.0-4.0); LYMPHOCYTES % (AUTO) 24 % (12-44); MEAN CORPUSCULAR HEMOGLOBIN 30 pg (25-34); MEAN CORPUSCULAR HGB CONC 33 g/dL (32-36); MEAN CORPUSCULAR VOLUME 91 fL (80-99); MEAN PLATELET VOLUME 10.8 fL (9.0-12.2); MONOCYTES # (AUTO) 0.7 10^3/uL (0.0-1.0); MONOCYTES % (AUTO) 8 % (0-12); NEUTROPHILS # (AUTO) 5.2 10^3/uL (1.8-7.8); NEUTROPHILS % (AUTO) 60 % (42-75); PLATELET COUNT 190 10^3/uL (130-400); WHITE BLOOD COUNT 8.7 10^3/uL (4.3-11.0)
[2022-10-26 09:44] LABS: ALBUMIN 3.7 GM/DL (3.2-4.5); BILIRUBIN,TOTAL 0.2 MG/DL (0.1-1.0); CREATININE SERUM 3.66 MG/DL (0.60-1.30); MAGNESIUM 2.2 MG/DL (1.6-2.4); PHOSPHORUS 3.9 MG/DL (2.3-4.7); POTASSIUM 4.4 MMOL/L (3.6-5.0); TOTAL PROTEIN 6.9 GM/DL (6.4-8.2)
== END ==
LOC: LAB 08:49
DX: K86.1 Other chronic pancreatitis (principal)
CPT/HCPCS: 36415; 80053; 80061; 82150; 82728; 82784; 82787; 83540; 83550; 83690; 83735; 84100; 85025

== ENCOUNTER 2022-10-30 20:12 | Emergency (ER) | payer MEDICARE, MEDICAID ==
[~2022-10-30] VITALS: Ht 157.5 cm; Wt 55.0 kg
[2022-10-30] MEDS: NS IV 1000 ML 1,000 ML IV SCH ×3 (20:12→21:33)
[2022-10-30] MEDS ORDERED: LIDOCAINE UROJET 2% GEL 10 ML PKG TOP ONE (20:30)
--- NOTE | 2022-10-30 20:35 | ED General ---
General Stated Complaint: AMS Source of Information: Patient (VERY LIMITED HISTORIAN AT THIS TIME, SHE IS VERY LETHARGIC, BUT DOES NOT APPEAR CONFUSED. ), EMS, Old Records History of Present Illness Date Seen by Provider: Oct 30, 2022 Time Seen by Provider: 20:13 Initial Comments PT ARRIVES VIA EMS FROM HOME EMS STATE THAT A FAMILY FRIEND CALLED EMS, FOR PT WITH ALTERED MENTAL STATUS. LAST KNOWN WELL TIME IS UNKNOWN. 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 PT IS KNOWN INSULIN DEPENDENT DIABETIC, AND HAS AN INSULIN PUMP IN PLACE--INSULIN PUMP IS BEEPING AND INDICATES THAT IT IS EMPTY. BLOOD GLUCOSE READ "HIGH" ( >600 ON THEIR GLUCOMETER) WITH KETONES PT IS ALSO ON PERITONEAL DIALYSIS. LAST DIALYZED AT HOME YESTERDAY. EMS VITALS: 71/22, HR 50'S, RESP RATE 40, O2 SAT 100% ON ROOM AIR. C/O NAUSEA, NO VOMITING--EMS GAVE ZOFRAN 4 MG PRIOR TO ARRIVAL, THEY ALSO GAVE 250 ML SALINE. PT DENIES ABDOMINAL PAIN OR DIARRHEA SHE DENIES CHEST PAIN OR SHORTNESS OF BREATH DENIES FEVER/SWEATS/CHILLS DENIES COUGH PT WANTING WATER ON ARRIVAL AND STATING SHE IS THIRSTY PT STATES ALL MEDICAL CARE IS AT SHE HAS NOT HAD COVID OR FLU VACCINES STATES SHE GOES TO FOR ALL MEDICAL CARE Allergies and Home Medications Allergies Coded Allergies: Fxqvgvs-Rba-Uzd Reductase Inhibitor (Verified Allergy, Severe, ANAPHYLAXIS, 03/18/12) difficulty breathing, BLE swelling lisinopril (Verified Allergy, Severe, ANAPHYLAXIS, 03/18/12) difficulty breathing, swelling of extremities gabapentin (Verified Allergy, Unknown, 04/23/18) losartan (Verified Allergy, Unknown, 04/23/18) midazolam (Verified Allergy, Unknown, HIVES, 06/06/18) niacin (Verified Allergy, Unknown, 04/23/18) Patient Home Medication List Home Medication List Reviewed: Yes Amlodipine Besylate (Norvasc) 5 Mg Tablet, 2.5 MG PO DAILY, (Reported) Entered as Reported by: GLORY SLOAN on 04/10/22 1124 Aripiprazole (Aripiprazole) 5 Mg Tablet, 5 MG PO DAILY, (Reported) Entered as Reported by: GLORY SLOAN on 04/10/22 1124 Calcium Acetate (Calcium Acetate) 667 Mg Capsule, 667 MG PO DAILY, (Reported) Entered as Reported by: GLORY SLOAN on 04/10/22 112 Desvenlafaxine Succinate (Pristiq ER) 50 Mg Tab.er.24h, 50 MG PO DAILY, (Reported) Entered as Reported by: GLORY SLOAN on 04/10/22 112 Insulin Glargine,Hum.rec.anlog (Lantus) 100 Unit/Ml Vial, 10 UNIT SQ HS Prescribed by: JEFF HOOPER on 09/13/22 1224 Levothyroxine Sodium (Levothyroxine) 50 Mcg Capsule, 50 MCG PO DAILY, (Reported) Entered as Reported by: GLORY SLOAN on 04/10/22 112 Loperamide HCl (Loperamide) 2 Mg Capsule, 2 MG PO UD, (Reported) Entered as Reported by: GLORY SLOAN on 04/10/22 112 Nitrofurantoin Monohyd/M-Cryst (Macrobid 100 mg Capsule) 100 Mg Capsule, 1 TAB PO BID Prescribed by: KARLO CROFT on 07/08/22 1747 Pramipexole (Mirapex) 0.125 Mg Tablet, 0.125 MG PO HS, (Reported) Entered as Reported by: GLORY SLOAN on 04/10/22 112 Propranolol HCl (Propranolol HCl) 40 Mg Tablet, 40 MG PO BID, (Reported) Entered as Reported by: GLORY SLOAN on 04/10/22 112 Trazodone HCl (Trazodone HCl) 50 Mg Tablet, 50 MG PO HS PRN for PRN, (Reported) Entered as Reported by: GLORY SLOAN on 04/10/22 112 Review of Systems Review of Systems Constitutional: see HPI, malaise, weakness EENTM: other (DRY MOUTH) Respiratory: no symptoms reported; No cough, No short of breath Cardiovascular: No no symptoms reported, No chest pain Gastrointestinal: see HPI; No abdominal pain, No diarrhea; nausea; No vomiting Genitourinary: other (STILL MAKES URINE, DENIES ANY PAIN ON URINATION) Psychiatric/Neurological: See HPI; Denies Headache, Denies Numbness, Denies Paresthesia; Other (DECREASED MENTATION/LETHARGY. ) Past Imybqur-Dmeikp-Mruama Hx Patient Social History Tobacco Use?: Yes Tobacco type used: Cigarettes Smoking Status: Former Smoker Smokeless Tobacco Frequency: Never a User Use of E-Cig and/or Vaping Moses: Never a User Substance use?: Yes Substance type: Marijuana Alcohol Use?: No Immunizations Up To Date Tetanus Booster (TDap): Less than 5yrs First/Initial COVID19 Vaccinat: NONE Second COVID19 Vaccination Hayden: NONE Third COVID19 Vaccination Date: NONE Seasonal Allergies Seasonal Allergies: No Past Medical History Surgery/Hospitalization HX: TYPE I DIABETIC, INSULIN PUMP Surgeries: Yes (PERITONEAL DIALYSIS ; CATARACT SURGERY; CARDIAC CATH) Cardiac, Dialysis, Eye Surgery, Tubal Ligation Respiratory: No Cardiac: Yes Hypertension Neurological: Yes Headaches /Migraines 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 LOREDO CONCLUSIONS: 1. No angiographically significant coronary artery disease. 2. Normal left ventricular end-diastolic pressure. 3. 10 mL of contrast was used for the entire study. 4. Left ventricular angiography was not performed to conserve contrast. 5. Ejection fraction was 55% to 60% on echocardiography of 12/2020 and 71% on myocardial perfusion imaging of 01/2021. Physical Exam Vital Signs Vital Signs - First Documented 10/30/22 10/30/22 20:15 23:30 Temp 35.6 Pulse 50 Resp 41 B/P (MAP) 81/37 (52) Pulse Ox 97 O2 Delivery Room Air O2 Flow Rate 2.00 Capillary Refill : Height, Weight, BMI Height: 5'2.00" Weight: 128lbs. 0.0oz. [id number]; 21.00 BMI Method:Stated General Appearance: Thin, Other (VERY LETHARGIC, KEEPS EYES CLOSED. SHE ANSWERS MOST QUESTIONS, BUT GIVES VERY MINIMAL ANSWERS, AND DOES NOT APPEAR CONFUSED. UNKEMPT.) HEENT: Pale Conjunctivae (L), Pale Conjunctivae (R), Other (ORAL MUCOSA VERY DRY) Neck: Normal Inspection Respiratory: Normal Breath Sounds, No Accessory Muscle Use, No Respiratory Distress, Other (TACHYPNEA, RESPIRATIONS SOMEWHAT SHALLOW) Cardiovascular: Regular Rate, Rhythm, No Edema, No JVD, No Murmur Gastrointestinal: Non Tender, Soft, Other (PERITONEAL DIALYSIS TUBE IN RIGHT MID ABDOMEN; INSULIN PUMP IN LEFT MID ABDOMEN; DRESSINGS OVER BOTH OF THESE ARE DIRTY. ABDOMEN IS SOFT AND NON-TENDER. NO SIGNS OF INFECTION TO ABDOMINAL WALL AT THIS TIME AND NO OVERT EVIDENCE OF PERITONITIS ON EXAM. ) Back: No CVA Tenderness Extremity: No Pedal Edema, Slow Capillary Refill Neurologic/Psychiatric: No Motor/Sensory Deficits, Other (LETHARGIC, BUT DOES NOT APPEAR CONFUSED. ORIENTED TO PERSON, PLACE, GROSSLY ORIENTED TO TIME AND SITUATION ) Skin: Cool, Damp, Pallor Focused Exam Sepsis Stage: Septic Shock Possible Source: Unknown Lactate Level 10/30/22 20:28: Lactic Acid Level 7.33*H Time of Focused Exam: 21:50 Respiratory: Normal Breath Sounds, No Accessory Muscle Use, No Respiratory Distress Cardiovascular: Regular Rate, Rhythm, No Murmur Capillary Refill: Less Than 3 Seconds Skin: warm/dry Lactic Acid Level Laboratory Tests Test 10/30/22 20:28 Lactic Acid Level 7.33 MMOL/L (0.50-2.00) *H Within 3hrs of presentation: Admin fluids, Admin ABX, Blood cultures prior to ABX's, Focus exam, Lactate level Progress/Results/Core Measures Suspected Sepsis SIRS Temperature: Pulse: Respiratory Rate: Laboratory Tests 10/30/22 20:28: White Blood Count 18.2H Blood Pressure / Mean: 10/30/22 20:28: Lactic Acid Level 7.33*H Laboratory Tests 10/30/22 20:28: Creatinine 5.51#H, INR Comment 1.3, Platelet Count 199, Total Bilirubin 0.5 Results/Orders Lab Results Laboratory Tests Test 10/30/22 20:25 10/30/22 20:28 10/30/22 20:43 10/30/22 20:45 Range/Units Influenza Type A (RT-PCR) Not Detected Not Detecte Influenza Type B (RT-PCR) Not Detected Not Detecte SARS-CoV-2 RNA (RT-PCR) Not Detected Not Detecte White Blood Count 18.2 H 4.3-11.0 10^3/uL Red Blood Count 2.73 L 3.80-5.11 10^6/uL Hemoglobin 8.1 #L 11.5-16.0 g/dL Hematocrit 29 L 35-52 % Mean Corpuscular Volume 105 H 80-99 fL Mean Corpuscular Hemoglobin 30 25-34 pg Mean Corpuscular Hemoglobin Concent 28 L 32-36 g/dL Red Cell Distribution Width 16.0 H 10.0-14.5 % Platelet Count 199 130-400 10^3/uL Mean Platelet Volume 12.1 9.0-12.2 fL Immature Granulocyte % (Auto) 1 % Neutrophils (%) (Auto) 90 H 42-75 % Lymphocytes (%) (Auto) 4 L 12-44 % Monocytes (%) (Auto) 5 0-12 % Eosinophils (%) (Auto) 0 0-10 % Basophils (%) (Auto) 0 0-10 % Neutrophils # (Auto) 16.3 H 1.8-7.8 10^3/uL Lymphocytes # (Auto) 0.8 L 1.0-4.0 10^3/uL Monocytes # (Auto) 0.9 0.0-1.0 10^3/uL Eosinophils # (Auto) 0.0 0.0-0.3 10^3/uL Basophils # (Auto) 0.0 0.0-0.1 10^3/uL Immature Granulocyte # (Auto) 0.1 0.0-0.1 10^3/uL Neutrophils % (Manual) 87 % Lymphocytes % (Manual) 7 % Monocytes % (Manual) 6 % Polychromasia SLIGHT Carline Cells MODERATE Elliptocytes SLIGHT Erythrocyte Sedimentation Rate 12 0-20 MM/HR Prothrombin Time 16.5 H 12.2-14.7 SEC INR Comment 1.3 0.8-1.4 Activated Partial Thromboplast Time 31 24-35 SEC Sodium Level 113 *L 135-145 MMOL/L Potassium Level 7.9 *H 3.6-5.0 MMOL/L Chloride Level 81 L 98-107 MMOL/L Carbon Dioxide Level < 5 *L 21-32 MMOL/L Anion Gap 27 H 5-14 MMOL/L Blood Urea Nitrogen 102 *H 7-18 MG/DL Creatinine 5.51 #H 0.60-1.30 MG/DL Estimat Glomerular Filtration Rate 9 BUN/Creatinine Ratio 19 Glucose Level 1337 *H 70-105 MG/DL Lactic Acid Level 7.33 *H 0.50-2.00 MMOL/L Calcium Level 7.5 L 8.5-10.1 MG/DL Corrected Calcium 8.1 L 8.5-10.1 MG/DL Magnesium Level 2.3 1.6-2.4 MG/DL Total Bilirubin 0.5 0.1-1.0 MG/DL Aspartate Amino Transf (AST/SGOT) 39 H 5-34 U/L Alanine Aminotransferase (ALT/SGPT) 58 H 0-55 U/L Alkaline Phosphatase 86 40-136 U/L Troponin I 0.046 H <0.028 NG/ML C-Reactive Protein High Sensitivity 1.30 H 0.00-0.50 MG/DL Total Protein 5.7 L 6.4-8.2 GM/DL Albumin 3.2 3.2-4.5 GM/DL Amylase Level 35 25-125 U/L Lipase 28 8-78 U/L Procalcitonin 6.58 H <0.10 NG/ML TSH [place] Testing 4.89 0.35-4.94 UIU/ML Serum Test, Qualitative NEGATIVE NEGATIVE Acetaminophen Level < 10 L 10-30 UG/ML Serum Alcohol < 10 <10 MG/DL Urine Color YELLOW Urine Clarity CLEAR Urine pH 5.5 5-9 Urine Specific [place] 1.010 L 1.016-1.022 Urine Protein 1+ H NEGATIVE Urine Glucose (UA) 3+ H NEGATIVE Urine Ketones 1+ H NEGATIVE Urine Nitrite NEGATIVE NEGATIVE Urine Bilirubin NEGATIVE NEGATIVE Urine Urobilinogen 0.2 < = 1.0 MG/DL Urine Leukocyte Esterase TRACE H NEGATIVE Urine RBC (Auto) TRACE-I H NEGATIVE Urine RBC 0-2 /HPF Urine WBC 0-2 /HPF Urine Squamous Epithelial Cells 0-2 /HPF Urine Renal Epithelial Cells NONE /HPF Urine Crystals NONE /LPF Urine Bacteria FEW H /HPF Urine Casts NONE /LPF Urine Mucus NEGATIVE /LPF Urine Culture Indicated CULTURE PENDING Urine Opiates Screen NEGATIVE NEGATIVE Urine Oxycodone Screen NEGATIVE NEGATIVE Urine Methadone Screen NEGATIVE NEGATIVE Urine Propoxyphene Screen NEGATIVE NEGATIVE Urine Barbiturates Screen NEGATIVE NEGATIVE Ur Tricyclic Antidepressants Screen NEGATIVE NEGATIVE Urine Phencyclidine Screen NEGATIVE NEGATIVE Urine Amphetamines Screen NEGATIVE NEGATIVE Urine Methamphetamines Screen NEGATIVE NEGATIVE Urine Benzodiazepines Screen NEGATIVE NEGATIVE Urine Cocaine Screen NEGATIVE NEGATIVE Urine Cannabinoids Screen POSITIVE H NEGATIVE Blood Gas Puncture Site RIGHT WRIST Blood Gas Patient Temperature 35.5 Arterial Blood pH 7.05 *L 7.37-7.43 Arterial Blood Partial Pressure CO2 13 *L 35-45 MMHG Arterial Blood Partial Pressure O2 109 H 79-93 MMHG Arterial Blood HCO3 4 *L 23-27 MMOL/L Arterial Blood Total CO2 3.9 *L 21.0-31.0 MMOL/L Arterial Blood Oxygen Saturation 97 94-100 % Arterial Blood Base Excess -25.6 L -2.5-2.5 MMOL/L Hang Test Y Blood Gas Ventilator Setting NO Blood Gas Inspired Oxygen NA Test 10/30/22 21:02 Range/Units Ammonia 45 H 11-32 UMOL/L Micro Results Microbiology 10/30/22 Blood Culture - Preliminary, Resulted No growth 10/30/22 Urine Culture - Preliminary, Resulted Escherichia coli Susceptibility To Follow 10/30/22 Blood Culture - Preliminary, Resulted No growth My Orders Orders - ANEL ALVARADO DO Accucheck Stat ONCE (10/30/22 20:18) Ed Iv/Invasive Line Start (10/30/22 20:18) Ekg Tracing (10/30/22 20:18) Catheter(Urinary) Insert & Ass 03,15 (10/30/22 20:18) O2 (10/30/22 20:18) Monitor-Rhythm Ecg Trace Only (10/30/22 20:18) Ct Head Wo-R/O Stroke (10/30/22 20:18) Chest 1 View, Ap/Pa Only (10/30/22 20:18) Acetaminophen (10/30/22 20:18) Alcohol (10/30/22 20:18) Amylase (10/30/22 20:18) Arterial Blood Gas (10/30/22 20:18) Cbc With Automated Diff (10/30/22 20:18) Comprehensive Metabolic Panel (10/30/22 20:18) Hs C Reactive Protein (10/30/22 20:18) Drug Screen Stat (Urine) (10/30/22 20:18) Hcg,Qualitative Serum (10/30/22 20:18) Lactic Acid Analyzer (10/30/22 20:18) Lipase (10/30/22 20:18) Magnesium (10/30/22 20:18) Procalcitonin (Pct) (10/30/22 20:18) Protime With Inr (10/30/22 20:18) Partial Thromboplastin Time (10/30/22 20:18) Thyroid Analyzer (10/30/22 20:18) Ua Culture If Indicated (10/30/22 20:18) Erythrocyte Sedimentation Rate (10/30/22 20:18) Troponin I Cami (10/30/22 20:18) Ed Iv/Invasive Line Start (10/30/22 20:18) Ns Iv 1000 Ml (Sodium Chloride 0.9%) (10/30/22 20:30) Covid 19 Inhouse Test (10/30/22 20:18) Lidocaine 2% (Urojet) (Xylocaine Urojet) (10/30/22 20:30) Influenza A And B By Pcr (10/30/22 20:18) Isolation Central Supply Req (10/30/22 20:18) Manual Differential (10/30/22 20:28) Ammonia (10/30/22 20:47) Blood Culture (10/30/22 20:51) Urine Culture (10/30/22 20:51) Ed Iv/Invasive Line Start (10/30/22 20:51) Ed Iv/Invasive Line Start (10/30/22 20:51) Vital Signs Adult Sepsis Patie Q15M (10/30/22 20:51) O2 (10/30/22 20:51) Remove Rings In Anticipation O (10/30/22 20:51) Cefepime Injection (Maxipime Injection) (10/30/22 21:00) Sodium Bicarbonate 8.4% Syr (Sodium Bica (10/30/22 21:15) Calcium Chloride 10% Injection (Calcium (10/30/22 21:30) Insulin (Regular) Human (Novolin R (Per (10/30/22 21:30) Sodium Polystyrene Powder (Kayexalate P (10/30/22 21:30) Albuterol Pre-Mix Nebs (Rt) (Proventil (10/30/22 21:28) Rt Request For Service (10/30/22 21:28) Svn Small Volume Nebulizer (10/30/22 21:28) Ekg Tracing (10/30/22 21:53) Vancomycin Injection (Vancomycin Injecti (10/30/22 22:30) Insulin Regular Drip (Myxredlin 100 Unit (10/30/22 22:30) Accucheck Stat ONCE (10/30/22 23:29) Medications Given in ED Vital Signs/I&O 10/30/22 10/30/22 20:15 23:30 Temp 35.6 36.5 Pulse 50 80 Resp 41 20 B/P (MAP) 81/37 (52) 111/46 Pulse Ox 97 100 O2 Delivery Room Air Nasal Cannula O2 Flow Rate 2.00 Capillary Refill : Progress Note : Progress Note PPE WORN COVID AND FLU TESTING DONE PLACED IN TRENDELENBERG POSITION DUE TO SEVERE HYPOTENSION ACCUCHECK ON ARRIVAL-"HIGH" > 600 ON RECEIVING CBC RESULTS WITH WBC OF >18,000, SEPSIS PROTOCOL INITIATED. GIVEN: -IV FLUIDS -O2 AT 2L/NC -ANTIBIOTICS--CEFEPIME AND VANCOMYCIN -INSULIN BOLUS AND PLACED ON A DRIP -KAYEXELATE -CALCIUM CHLORIDE -BICARB -ALBUTEROL NEB TREATMENT AFTER 2ND LITER OF FLUIDS, BP UP TO UPPER 90'S SYSTOLIC, HR IS UP TO 80'S AND PT IS NOW VERY AWAKE, IS SITTING UP AND MAKING DEMANDS --WANTING SOMETHING TO RUTHANN Ramos, ETC. ON ADVISING HER THAT SHE WAS GOING TO NEED TO BE TRANSFERRED, [facility]" PT IS NOW IN SINUS RHYTHM WITH VISIBLE P-WAVES AND IS NO LONGER BRADYCARDIC. HR NOW IN 80'S. REPEAT EKG ORDERED. COMPLEXES ON TELEMETRY CONTINUE TO IMPROVE IN APPEARANCE DURING ER STAY--RATE IS VERY REGULAR IN THE 80'S, AND IN CONSISTENT SINUS RHYTHM WITH COMPLEXES ARE NOW NARROW, AND T WAVES ARE BECOMING SHORTER AND ARE NO LONGER TALLER THAN QRS COM PLEXES. BP CONSISTENTLY >100 SYSTOLIC, RESPIRATORY RATE DOWN TO THE 20'S AND IS NO LONGER SHALLOW O2 SATS REMAIN 100% ON ROOM AIR. COMPLEX CASE DUE TO MULTIPLE CONTRIBUTING FACTORS PT IS VERY HYPOTENSIVE ON ARRIVAL--SUSPECT MULTIFACTORIAL DUE TO DKA, D EHYDRATION, AND SEPSIS/SEPTIC SHOCK. FLUIDS GIVEN SPARINGLY DUE TO CHRONIC RENAL FAILURE ON DIALYSIS--GAVE FLUID BOLUS UNTIL BP >100 SYSTOLIC AND THEN PLACED ON TKO RATE, TO AVOID FLUID OVERLOAD. ABNORMAL EKG FINDINGS ON ARRIVAL ALSO VERY CONCERNING PT ARRIVED IN JUNCTIONAL BRADYCARDIA WITH VERY WIDE COMPLEXES AND VERY TALL PEAKED T-WAVES ACCUCHECK PRIOR TRANSFER--STILL READS "HIGH" VITALS AT TIME OF TRANSFER: TEMP UP TO 36.5, FROM 35.6 ON ARRIVAL HR UP TO 80, FROM 50 ON ARRIVAL RESPIRATORY RATE DOWN TO 20, FROM 41-44 ON ARRIVAL BP UP TO 111/46, FROM 81/27 ON ARRIVAL O2 SATS 100% ON 2L/NC, WAS 97% ON ROOM AIR ON ARRIVAL REVIEWED OLD RECORDS, INCLUDING H&P'S, CONSULTS, PERTINENT TESTS/PROCEDURES AND DISCHARGE SUMMARIES. NO FAMILY IS HERE WITH PT OR CALLED ABOUT PT ECG Initial ECG Impression Date: Oct 30, 2022 Initial ECG Impression Time: 20:36 Initial ECG Rate: 61 Comment JUNCTIONAL RHYTHM--NO DISCERNABLE P-WAVES; IVCD; TALL PEAKED T-WAVES EKG : EKG Time: 21:57 Rate: 70 Comment SINUS ARRHYTHMIA, WITH IVCD AND TALL PEAKED T-WAVES. EKG MACHINE READ OF HR OF 141, BUT IS DOUBLE READING DUE TO TALL PEAKED T WAVES SAME HEIGHT QRS COMPLEXES. Diagnostic Imaging Comments CT HEAD--PER RADIOLOGIST REPORT AT 2129 FINDINGS: No intracranial hemorrhage. No intracranial mass, mass effect, midline shift, herniation, hydrocephalus, or extra-axial fluid collection. No CT evidence of an acute ischemic infarction. The bilateral ocular lenses are absent. The paranasal sinuses are clear. The calvarium and extracalvarial soft tissues are unremarkable. IMPRESSION: Stable-appearing examination without acute intracranial abnormality. CXR Reviewed: Reviewed by Me Critical Care Note Critical Care Start Time: 20:13 Stop Time: 23:30 Total Time (minutes) 317 Departure Communication (Admissions) 2141--CALLED ( PT HAS STATED THAT ALL OF HER MEDICAL CARE IS AT ) 2152--NOW CALLING [facility], PT NOW IS VERY AWAKE AND REQUESTING TO GO TO [facility] INSTEAD OF . [facility] IS BEING CONTACTED FOR TRANSFER CAPABILITY, AND THEY REPORT THEY WILL BE ABLE TO TRANSPORT TO [facility], BUT NOT IF PT CHANGES HER MIND. 2214--SPOKE WITH DR. CHRISTENSEN, CHIEF CATALYST OPERATOR AT [facility]. ACCEPTS PT FOR ADMIT. ADVISES TO ADD VANCOMYCIN 1 GRAM. [facility] NOTIFIED AGAIN. 2221--CALLED [facility] AND INFORMED THEM OF CHANGE OF PLAN, AND WILL CALL OFF THE TRANSFER THERE. Impression Primary Impression: DKA (diabetic ketoacidosis) Additional Impressions: Sepsis Chronic anemia ESRD on peritoneal dialysis Electrolyte imbalance Dehydration Hyponatremia Hyperkalemia UTI (urinary tract infection) Abnormal EKG HYPOTENSION-MULTIFACTORIAL POSSIBLE SEPSIS WITH SEPTIC SHOCK Disposition: [facility] Condition: Improved Transfer Transfer Reason: Exceeds level of care (NEED FOR MULTISPECIALTY SERVICES INCLUDING NEPHROLOGY AND DIALYSIS) Transfer Facility: [facility] Method of Transfer: EMS Departure-Patient Inst. Referrals: NO,LOCAL PHYSICIAN (PCP/Family) Primary Care Physician ANEL ALVARADO DO Oct 30, 2022 20:35
[2022-10-30 20:39] LABS: BASOPHILS % (AUTO) 0 % (0-10); EOSINOPHILS % (AUTO) 0 % (0-10); HEMATOCRIT 29 % (35-52); HEMOGLOBIN 8.1 g/dL (11.5-16.0); LYMPHOCYTES # (AUTO) 0.8 10^3/uL (1.0-4.0); LYMPHOCYTES % (AUTO) 4 % (12-44); MEAN CORPUSCULAR HEMOGLOBIN 30 pg (25-34); MEAN CORPUSCULAR HGB CONC 28 g/dL (32-36); MEAN CORPUSCULAR VOLUME 105 fL (80-99); MEAN PLATELET VOLUME 12.1 fL (9.0-12.2); MONOCYTES # (AUTO) 0.9 10^3/uL (0.0-1.0); MONOCYTES % (AUTO) 5 % (0-12); NEUTROPHILS # (AUTO) 16.3 10^3/uL (1.8-7.8); NEUTROPHILS % (AUTO) 90 % (42-75); PLATELET COUNT 199 10^3/uL (130-400); WHITE BLOOD COUNT 18.2 10^3/uL (4.3-11.0)
[2022-10-30 20:50] LABS: INR 1.3 (0.8-1.4); PROTHROMBIN TIME PATIENT 16.5 SEC (12.2-14.7)
[2022-10-30 20:52] LABS: CHLORIDE 81 MMOL/L (98-107)
[2022-10-30 20:52] LABS: BILIRUBIN,URINE NEGATIVE (NEGATIVE); CLARITY,URINE CLEAR; COLOR,URINE YELLOW; GLUCOSE, URINE (UA) 3+ (NEGATIVE); KETONES,URINE 1+ (NEGATIVE); LEUKOCYTE ESTERASE ,URINE TRACE (NEGATIVE); NITRITE,URINE NEGATIVE (NEGATIVE); PH,URINE 5.5 (5-9); PROTEIN,URINE 1+ (NEGATIVE)
[2022-10-30 20:53] LABS: ALBUMIN 3.2 GM/DL (3.2-4.5)
[2022-10-30 20:54] LABS: AMYLASE 35 U/L (25-125); CALCIUM 7.5 MG/DL (8.5-10.1)
[2022-10-30 20:55] LABS: TOTAL PROTEIN 5.7 GM/DL (6.4-8.2)
[2022-10-30 20:57] LABS: BILIRUBIN,TOTAL 0.5 MG/DL (0.1-1.0); BURR CELLS MODERATE; ELLIPT/OVALOCYTES SLIGHT; LYMPHOCYTES % (MANUAL) 7 %; MONOCYTES % (MANUAL) 6 %; NEUTROPHILS % (MANUAL) 87 %; POLYCHROMASIA SLIGHT
[2022-10-30 20:59] LABS: ALKALINE PHOSPHATASE 86 U/L (40-136); CREATININE SERUM 5.51 MG/DL (0.60-1.30); GFR ESTIMATED 9
[2022-10-30 21:00] LABS: BUN/CREATININE RATIO 19
[2022-10-30] MEDS ORDERED: CEFEPIME INJECTION 1,000 MG in NS (IVPB) 50 ML IV ONE (21:00)
[2022-10-30 21:02] LABS: ALANINE AMINOTRANSFERASE 58 U/L (0-55); ERYTHROCYTE SEDIMENTATION RATE 12 MM/HR (0-20); MAGNESIUM 2.3 MG/DL (1.6-2.4)
[2022-10-30 21:03] LABS: RBC,URINE 0-2 /HPF
[2022-10-30 21:03] LABS: LIPASE 28 U/L (8-78)
[2022-10-30 21:04] LABS: BACTERIA,URINE FEW /HPF; SQUAMOUS EPITHELIAL CELL,UR 0-2 /HPF; WBC,URINE 0-2 /HPF
[2022-10-30 21:06] LABS: AMPHETAMINE SCREEN, URINE NEGATIVE (NEGATIVE); BENZODIAZEPINES SCREEN URINE NEGATIVE (NEGATIVE); COCAINE SCREEN URINE NEGATIVE (NEGATIVE)
[2022-10-30 21:07] LABS: BARBITURATE SCREEN URINE NEGATIVE (NEGATIVE); CANNABINOID SCREEN, URINE POSITIVE (NEGATIVE); METHADONE STAT NEGATIVE (NEGATIVE); OPIATE SCREEN URINE NEGATIVE (NEGATIVE); OXYCODONE STAT NEGATIVE (NEGATIVE); PROPOXYPHENE STAT NEGATIVE (NEGATIVE); TRICYCLIC ANTIDEPRESSANTS SCRE NEGATIVE (NEGATIVE)
[2022-10-30 21:08] LABS: ABG BASE EXCESS -25.6 MMOL/L (-2.5-2.5); ABG OXYGEN SATURATION 97 % (94-100); ABG PO2 109 MMHG (79-93)
[2022-10-30 21:11] LABS: ABG PCO2 13 MMHG (35-45); ABG PH 7.05 (7.37-7.43); ABG TCO2 3.9 MMOL/L (21.0-31.0)
[2022-10-30 21:12] LABS: ALLENS TEST Y; PATIENT TEMP 35.5; VENTILATOR NO
[2022-10-30] MEDS ORDERED: SODIUM BICARB 8.4% 50 MEQ/50 ML (ABBOTT) SYR IV ONE (21:15)
[2022-10-30 21:23] LABS: TSH (THYROID ANALYZER) 4.89 UIU/ML (0.35-4.94)
[2022-10-30 21:26] LABS: POTASSIUM 7.9 MMOL/L (3.6-5.0); SODIUM 113 MMOL/L (135-145)
--- NOTE | 2022-10-30 21:26 | Diagnostic Imaging Report ---
PROCEDURE: CT head wo r/o stroke. TECHNIQUE: Multiple contiguous axial images were obtained through the brain without the use of intravenous contrast. Auto Exposure Controls were utilized during the CT exam to meet ALARA standards for radiation dose reduction. INDICATION: Neuro deficit, stroke COMPARISON: March 17, 2014 FINDINGS: No intracranial hemorrhage. No intracranial mass, mass effect, midline shift, herniation, hydrocephalus, or extra-axial fluid collection. No CT evidence of an acute ischemic infarction. The bilateral ocular lenses are absent. The paranasal sinuses are clear. The calvarium and extracalvarial soft tissues are unremarkable. IMPRESSION: Stable-appearing examination without acute intracranial abnormality. Should there remain concern for recent infarction, further evaluation with MRI of the brain could be obtained. Dictated by: Dictated on workstation # [id number]
[2022-10-30 21:28] LABS: ACETAMINOPHEN < 10 UG/ML (10-30); CARBON DIOXIDE < 5 MMOL/L (21-32)
[2022-10-30] MEDS ORDERED: RT-ALBUTEROL SULF 2.5 MG/3 ML PRE-MIX VIAL INH STA (21:28)
[2022-10-30] MEDS ORDERED: inSUlin (REGULAR) HUMAN 1 UNIT/0.01 ML (CHARGE PER UNIT) IV ONE (21:30)
[2022-10-30] MEDS ORDERED: SODIUM POLYSTYRENE POWDER 15 GM BOTTLE PO ONE (21:30)
[2022-10-30] MEDS ORDERED: CALCIUM CHLORIDE 1 GM/10 ML (IMS) SYR INJ ONE (21:30)
[2022-10-30 21:49] LABS: GLUCOSE 1337 MG/DL (70-105)
--- NOTE | 2022-10-30 21:50 | Diagnostic Imaging Report ---
INDICATION: Altered mental status COMPARISON: 09/07/2022 TECHNIQUE: Single radiograph of the chest dated 10/30/2022 FINDINGS: The cardiac silhouette is mildly enlarged. Central pulmonary vascular congestion is present. Mild diffuse bilateral interstitial opacities are present with Terrell B lines noted on the right. No significant pleural effusion. No pneumothorax. No acute osseous abnormality. IMPRESSION: Bilateral interstitial opacities favored to relate to interstitial edema given mild central pulmonary vascular congestion. Interstitial infiltrate such as interstitial pneumonia not excluded. Dictated by: Dictated on workstation # [id number]
[2022-10-30] MEDS ORDERED: VANCOMYCIN INJECTION 1,000 MG in NS (IVPB) 250 ML IV ONE (22:30)
[2022-10-30 23:30] VITALS: BP 111/46
== END 2022-10-30 23:30 | disposition short-term general hospital (02) ==
LOC: EDUNIT# 20:12 → ER 20:15
DX: E10.10 Type 1 diabetes mellitus with ketoacidosis without coma (principal); E10.22 Type 1 diabetes mellitus with diabetic chronic kidney disease; I12.0 Hypertensive chronic kidney disease with stage 5 chronic kidney disease or end stage renal disease; N18.6 End stage renal disease; A41.9 Sepsis, unspecified organism; D64.9 Anemia, unspecified; E86.0 Dehydration; E87.1 Hypo-osmolality and hyponatremia; E87.5 Hyperkalemia; N39.0 Urinary tract infection, site not specified; I95.89 Other hypotension; R94.31 Abnormal electrocardiogram [ECG] [EKG]; Z99.2 Dependence on renal dialysis; Z20.822 Contact with and (suspected) exposure to COVID-19
CPT/HCPCS: 70450; 71045; 80053; 80306; 81000; 82140; 82150; 82805; 83605; 83690; 83735; 84145; 84443; 84484; 84703; 85007; 85027; 85610; 85652; 85730; 86141; 87040; 87077; 87088; 87636; 93005; 93041; 99291; G0480 ×2; 36415; 80320; 80329; 87186

== ENCOUNTER 2022-12-03 09:10 | Emergency (ER) | payer MEDICARE, MEDICAID ==
[~2022-12-03] VITALS: Ht 157 cm; Wt 56.0 kg
[2022-12-03 09:43] LABS: BASOPHILS % (AUTO) 0 % (0-10); EOSINOPHILS # (AUTO) 0.4 10^3/uL (0.0-0.3); EOSINOPHILS % (AUTO) 4 % (0-10); HEMATOCRIT 29 % (35-52); HEMOGLOBIN 9.5 g/dL (11.5-16.0); LYMPHOCYTES # (AUTO) 2.2 10^3/uL (1.0-4.0); LYMPHOCYTES % (AUTO) 22 % (12-44); MEAN CORPUSCULAR HEMOGLOBIN 29 pg (25-34); MEAN CORPUSCULAR HGB CONC 33 g/dL (32-36); MEAN CORPUSCULAR VOLUME 89 fL (80-99); MEAN PLATELET VOLUME 10.4 fL (9.0-12.2); MONOCYTES # (AUTO) 0.5 10^3/uL (0.0-1.0); MONOCYTES % (AUTO) 5 % (0-12); NEUTROPHILS # (AUTO) 6.9 10^3/uL (1.8-7.8); NEUTROPHILS % (AUTO) 68 % (42-75); PLATELET COUNT 234 10^3/uL (130-400); WHITE BLOOD COUNT 10.1 10^3/uL (4.3-11.0)
[2022-12-03 10:03] LABS: ALANINE AMINOTRANSFERASE 21 U/L (0-55); ALBUMIN 3.8 GM/DL (3.2-4.5); ALKALINE PHOSPHATASE 74 U/L (40-136); AMYLASE 47 U/L (25-125); BILIRUBIN,TOTAL 0.3 MG/DL (0.1-1.0); BUN/CREATININE RATIO 16; CALCIUM 8.8 MG/DL (8.5-10.1); CARBON DIOXIDE 19 MMOL/L (21-32); CHLORIDE 104 MMOL/L (98-107); CREATININE SERUM 4.94 MG/DL (0.60-1.30); GFR ESTIMATED 11; GLUCOSE 182 MG/DL (70-105); LIPASE 15 U/L (8-78); MAGNESIUM 2.3 MG/DL (1.6-2.4); POTASSIUM 4.4 MMOL/L (3.6-5.0); SODIUM 135 MMOL/L (135-145); TOTAL PROTEIN 7.3 GM/DL (6.4-8.2)
[2022-12-03 10:47] LABS: BILIRUBIN,URINE NEGATIVE (NEGATIVE); CLARITY,URINE SL CLOUDY; COLOR,URINE YELLOW; GLUCOSE, URINE (UA) 3+ (NEGATIVE); KETONES,URINE NEGATIVE (NEGATIVE); LEUKOCYTE ESTERASE ,URINE 1+ (NEGATIVE); NITRITE,URINE NEGATIVE (NEGATIVE); PH,URINE 5.5 (5-9); PROTEIN,URINE TRACE (NEGATIVE)
[2022-12-03 10:58] LABS: BACTERIA,URINE LARGE /HPF
[2022-12-03 11:02] LABS: AMPHETAMINE SCREEN, URINE NEGATIVE (NEGATIVE); BARBITURATE SCREEN URINE NEGATIVE (NEGATIVE); BENZODIAZEPINES SCREEN URINE NEGATIVE (NEGATIVE); CANNABINOID SCREEN, URINE POSITIVE (NEGATIVE); COCAINE SCREEN URINE NEGATIVE (NEGATIVE); METHADONE STAT NEGATIVE (NEGATIVE); OPIATE SCREEN URINE NEGATIVE (NEGATIVE); OXYCODONE STAT NEGATIVE (NEGATIVE); PROPOXYPHENE STAT NEGATIVE (NEGATIVE); TRICYCLIC ANTIDEPRESSANTS SCRE POSITIVE (NEGATIVE)
[2022-12-03] MEDS ORDERED: NITR-65 PO (11:23)
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
[2022-12-03] MEDS ORDERED: cefTRIAXone 1 GM PRE-MIX 50 ML IV ONE (11:30)
[2022-12-03 12:22] VITALS: BP 123/58
== END 2022-12-03 12:23 | disposition home or self-care (01) ==
LOC: EDUNIT# 09:10 → ER 09:11
DX: E10.65 Type 1 diabetes mellitus with hyperglycemia (principal); N39.0 Urinary tract infection, site not specified; I12.0 Hypertensive chronic kidney disease with stage 5 chronic kidney disease or end stage renal disease; E10.22 Type 1 diabetes mellitus with diabetic chronic kidney disease; N18.6 End stage renal disease; Z99.2 Dependence on renal dialysis; Z79.4 Long term (current) use of insulin; Z28.310 Unvaccinated for COVID-19
CPT/HCPCS: 80053; 80306; 81000; 82150; 82947; 83690; 83735; 84145; 84703; 85025; 87088; 93041; G0480; 36415; 80320

== ENCOUNTER 2023-01-01 17:25 | Emergency (ER) | payer MEDICARE, MEDICAID ==
[~2023-01-01] VITALS: Ht 163 cm; Wt 56.0 kg
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
[2023-01-01 18:33] VITALS: BP 183/82
== END 2023-01-01 18:32 | disposition home or self-care (01) ==
LOC: EDUNIT# 17:25 → ER 17:26
DX: Z04.1 Encounter for examination and observation following transport accident (principal); E10.649 Type 1 diabetes mellitus with hypoglycemia without coma; E10.10 Type 1 diabetes mellitus with ketoacidosis without coma; Z96.41 Presence of insulin pump (external) (internal)
CPT/HCPCS: 82947

== ENCOUNTER 2023-04-13 05:08 | Emergency (ER) | payer MEDICARE, MEDICAID ==
[~2023-04-13] VITALS: Ht 163 cm; Wt 56.0 kg
--- NOTE | 2023-04-13 05:21 | ED General ---
General Stated Complaint: DIABETIC Source of Information: Patient, Old Records (ANEL ALVARADO DO) History of Present Illness Date Seen by Provider: April 13, 2023 Time Seen by Provider: 05:10 Initial Comments PT ARRIVES VIA EMS FROM HOME C/O ELEVATED BLOOD SUGAR C/O NAUSEA AND VOMITING X 1 WEEK STATES SHE HAS VOMITED "TOO MANY TIMES TO COUNT" TODAY AND EVERY DAY FOR THE LAST WEEK NO ABDOMINAL PAIN AT ANY TIME NO DIARRHEA--HAD A NORMAL BM ON SATURDAY / YESTERDAY STATES SHE HAS URINATED 6 TIMES TODAY, NO PAIN ON URINATION NO FEVER C/O THIRST AND DRY MOUTH PT IS TYPE 1 DIABETIC, DX AT AGE 7 SHE HAS A DEXCOM CGM AND AN INSULIN PUMP SHE STATES HER BLOOD SUGARS HAVE BEEN READING "HIGH" FOR THE LAST 2 DAYS SHE HAS NOT SOUGHT CARE UNTIL TODAY SYMPTOMS NO DIFFERENT TODAY HAS NOT TAKEN ANYTHING FOR SYMPTOMS LMP 03/25/23. NORMAL. S/P BTL. PT IS A FORMER SMOKER, DENIES ETOH USE, SMOKES MARIJUANA DAILY. ADDITIONALLY, SHE HAD HTN, ESRD ON PERITONEAL DIALYSIS X 4 YEARS ( HAS HAD TUBE EXCHANGED IN THE LAST COUPLE OF WEEKS) KU FOR ALL MEDICAL CARE. (ANEL ALVARADO DO) Allergies and Home Medications Allergies Coded Allergies: [id number] Reductase Inhibitor (Verified Allergy, Severe, ANAPHYLAX IS, 03/18/12) difficulty breathing, BLE swelling lisinopril (Verified Allergy, Severe, ANAPHYLAXIS, 03/18/12) difficulty breathing, swelling of extremities gabapentin (Verified Allergy, Unknown, 04/23/18) losartan (Verified Allergy, Unknown, 04/23/18) midazolam (Verified Allergy, Unknown, HIVES, 06/06/18) niacin (Verified Allergy, Unknown, 04/23/18) Patient Home Medication List Home Medication List Reviewed: Yes (ANEL ALVARADO DO) Amlodipine Besylate (Norvasc) 5 Mg Tablet, 2.5 MG PO DAILY, (Reported) Entered as Reported by: GLORY SLOAN on 04/10/22 1124 Aripiprazole (Aripiprazole) 5 Mg Tablet, 5 MG PO DAILY, (Reported) Entered as Reported by: GLORY SLOAN on 04/10/22 1124 Calcium Acetate (Calcium Acetate) 667 Mg Capsule, 667 MG PO DAILY, (Reported) Entered as Reported by: GLORY SLOAN on 04/10/22 1124 Cefdinir (Cefdinir) 300 Mg Capsule, 300 MG PO UD Prescribed by: FAREED PRADO on 04/13/23 1027 Desvenlafaxine Succinate (Pristiq ER) 50 Mg Tab.er.24h, 50 MG PO DAILY, (Reported) Entered as Reported by: GLORY SLOAN on 04/10/22 1124 Doxycycline Hyclate (Doxycycline Hyclate) 100 Mg Tablet, 100 MG PO BID Prescribed by: FAREED PRADO on 04/13/23 1027 Insulin Glargine,Hum.rec.anlog (Lantus) 100 Unit/Ml Vial, 10 UNIT SQ HS Prescribed by: JEFF HOOPER on 09/13/22 1224 Levothyroxine Sodium (Levothyroxine) 50 Mcg Capsule, 50 MCG PO DAILY, (Reported) Entered as Reported by: GLORY SLOAN on 04/10/22 1124 Loperamide HCl (Loperamide) 2 Mg Capsule, 2 MG PO UD, (Reported) Entered as Reported by: GLORY SLOAN on 04/10/22 112 Metoclopramide HCl (Reglan) 5 Mg Tablet, 0.5 TAB PO Q6H PRN for NAUSEA-2ND LINE Prescribed by: FAREED PRADO on 04/13/23 1027 Nitrofurantoin Monohyd/M-Cryst (Macrobid 100 mg Capsule) 100 Mg Capsule, 1 TAB PO BID Prescribed by: KARLO CROFT on 07/08/22 1747 Nitrofurantoin Monohyd/M-Cryst (Macrobid 100 mg Capsule) 100 Mg Capsule, 1 TAB PO BID Prescribed by: ANLE ALVARADO on 12/03/22 1123 Ondansetron (Ondansetron Odt) 4 Mg Tab.rapdis, 4 MG SL Q4H PRN for NAUSEA/VOMITING Prescribed by: FAREED PRADO on 04/13/23 1027 Pramipexole (Mirapex) 0.125 Mg Tablet, 0.125 MG PO HS, (Reported) Entered as Reported by: GLORY SLOAN on 04/10/22 1124 Propranolol HCl (Propranolol HCl) 40 Mg Tablet, 40 MG PO BID, (Reported) Entered as Reported by: GLORY SLOAN on 04/10/221123 Trazodone HCl (Trazodone HCl) 50 Mg Tablet, 50 MG PO HS PRN for PRN, (Reported) Entered as Reported by: GLORY SLOAN on 04/10/221123 Review of Systems Review of Systems Constitutional: see HPI; No dizziness, No fever; other (THIRST) EENTM: no symptoms reported Respiratory: no symptoms reported Cardiovascular: no symptoms reported Gastrointestinal: see HPI; No abdominal pain, No constipation, No diarrhea; nausea, vomiting Genitourinary: see HPI; No dysuria; frequency Musculoskeletal: no symptoms reported Skin: no symptoms reported Psychiatric/Neurological: No Symptoms Reported Hematologic/Lymphatic: No Symptoms Reported Immunological/Allergic: no symptoms reported (ANEL ALVARADO DO) Past Avutanc-Rdryrz-Tkworm Hx Patient Social History Tobacco Use?: Yes Tobacco type used: Cigarettes Smoking Status: Former Smoker Substance use?: Yes Substance type: Marijuana Substance frequency: Daily Alcohol Use?: No (ANEL ALVARADO DO) Immunizations Up To Date Tetanus Booster (TDap): Less than 5yrs First/Initial COVID19 Vaccinat: NONE Second COVID19 Vaccination Hayden: NONE Third COVID19 Vaccination Date: NONE (ANEL ALVARADO DO) Seasonal Allergies Seasonal Allergies: No (ANEL ALVARADO DO) Past Medical History Surgery/Hospitalization HX: TYPE I DIABETIC, INSULIN PUMP Surgeries: Yes (PERITONEAL DIALYSIS--SHUNTS X 2 ;CATARACT SURGERY; CARDIAC CATH;FOOT; BTL) Abdominal, Cardiac, Dialysis, Eye Surgery, Orthopedic, Tubal Ligation Respiratory: No Cardiac: Yes Hypertension Neurological: Yes Headaches /Migraines 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 LOREDO CONCLUSIONS: 1. No angiographically significant coronary artery disease. 2. Normal left ventricular end-diastolic pressure. 3. 10 mL of contrast was used for the entire study. 4. Left ventricular angiography was not performed to conserve contrast. 5. Ejection fraction was 55% to 60% on echocardiography of 12/2020 and 71% on myocardial perfusion imaging of 01/2021. (ANEL ALVARADO DO) Physical Exam Vital Signs Vital Signs - First Documented 04/13/23 05:09 Temp 36.4 Pulse 115 Resp 18 B/P (MAP) 189/75 (113) Pulse Ox 100 O2 Delivery Room Air (FAREED RIZZO MD) Vital Signs Capillary Refill : (ANEL ALVARADO DO) Height, Weight, BMI Height: 5'2.00" Weight: 128lbs. 0.0oz. 58.449691nw; 21.00 BMI Method:Stated General Appearance: No Apparent Distress, WD/WN, Other (FLAT AFFECT, DOES NOT MAKE EYE CONTACT. ) HEENT: PERRL/EOMI, Other (ORAL MUCOSA DRY. NO TOP TEETH, AND MULTIPLE MISSING B OTTOM TEETH WITH DECAY/POOR HYGIENE TO REMAINING TEETH. ) Neck: Normal Inspection Respiratory: Normal Breath Sounds, No Accessory Muscle Use, No Respiratory Distress Cardiovascular: No Edema, No Murmur, Normal Peripheral Pulses, Tachycardia Gastrointestinal: Normal Bowel Sounds, No Organomegaly, No Pulsatile Mass, Soft, Tenderness (MILD SUPRAPUBIC TENDERNESS. ), Other (PERITONEAL DIALYSIS SITE TO RIGHT MID ABDOMEN APPEARS NORMAL--NO SIGNS OF INFECTION, NO LEAKING AROUND SITE. 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 Norm as Tested Skin: Warm/Dry, Pallor (ANEL ALVARADO DO) Focused Exam Lactate Level 04/13/23 06:06: Lactic Acid Level 1.24 (FAREED RIZZO MD) Lactic Acid Level Laboratory Tests Test 04/13/23 06:06 Lactic Acid Level 1.24 MMOL/L (0.50-2.00) (FAREED RIZZO MD) Progress/Results/Core Measures Suspected Sepsis SIRS Temperature: Pulse: Respiratory Rate: Laboratory Tests 04/13/23 05:18: White Blood Count 23.8H Blood Pressure / Mean: 04/13/23 06:06: Lactic Acid Level 1.24 Laboratory Tests 04/13/23 05:18: Creatinine 8.88H, INR Comment 1.0, Platelet Count 343, Total Bilirubin 0.7 (ANEL ALVARADO DO) Results/Orders Lab Results Laboratory Tests Test 04/13/23 05:18 04/13/23 05:20 04/13/23 06:06 04/13/23 06:08 Range/Units White Blood Count 23.8 H 4.3-11.0 10^3/uL Red Blood Count 3.60 L 3.80-5.11 10^6/uL Hemoglobin 10.3 L 11.5-16.0 g/dL Hematocrit 29 L 35-52 % Mean Corpuscular Volume 81 80-99 fL Mean Corpuscular Hemoglobin 29 25-34 pg Mean Corpuscular Hemoglobin Concent 35 32-36 g/dL Red Cell Distribution Width 14.0 10.0-14.5 % Platelet Count 343 130-400 10^3/uL Mean Platelet Volume 11.5 9.0-12.2 fL Immature Granulocyte % (Auto) 1 % Neutrophils (%) (Auto) 82 H 42-75 % Lymphocytes (%) (Auto) 8 L 12-44 % Monocytes (%) (Auto) 8 0-12 % Eosinophils (%) (Auto) 0 0-10 % Basophils (%) (Auto) 0 0-10 % Neutrophils # (Auto) 19.6 H 1.8-7.8 10^3/uL Lymphocytes # (Auto) 1.9 1.0-4.0 10^3/uL Monocytes # (Auto) 2.0 H 0.0-1.0 10^3/uL Eosinophils # (Auto) 0.0 0.0-0.3 10^3/uL Basophils # (Auto) 0.0 0.0-0.1 10^3/uL Immature Granulocyte # (Auto) 0.3 H 0.0-0.1 10^3/uL Neutrophils % (Manual) 80 % Lymphocytes % (Manual) 8 % Monocytes % (Manual) 12 % Platelet Estimate ADEQUATE Hypochromasia MODERATE Poikilocytosis SLIGHT Prothrombin Time 13.2 12.2-14.7 SEC INR Comment 1.0 0.8-1.4 Activated Partial Thromboplast Time 27 24-35 SEC Venous Blood pH 7.46 H 7.31-7.41 Venous Blood Partial Pressure CO2 43 40-52 MMHG Venous Blood HCO3 30 H 22-28 MMOL/L Sodium Level 134 L 135-145 MMOL/L Potassium Level 3.0 L 3.6-5.0 MMOL/L Chloride Level 76 L 98-107 MMOL/L Carbon Dioxide Level 23 21-32 MMOL/L Anion Gap 35 H 5-14 MMOL/L Blood Urea Nitrogen > 125 *H 7-18 MG/DL Creatinine 8.88 H 0.60-1.30 MG/DL Estimat Glomerular Filtration Rate 5 BUN/Creatinine Ratio 14 Glucose Level 323 H 70-105 MG/DL Calcium Level 9.8 8.5-10.1 MG/DL Corrected Calcium 9.7 8.5-10.1 MG/DL Magnesium Level 2.3 1.6-2.4 MG/DL Total Bilirubin 0.7 0.1-1.0 MG/DL Aspartate Amino Transf (AST/SGOT) 17 5-34 U/L Alanine Aminotransferase (ALT/SGPT) 48 0-55 U/L Alkaline Phosphatase 86 40-136 U/L Total Protein 7.8 6.4-8.2 GM/DL Albumin 4.1 3.2-4.5 GM/DL Amylase Level 63 25-125 U/L Lipase 49 8-78 U/L Serum Test, Qualitative NEGATIVE NEGATIVE Serum Alcohol < 10 <10 MG/DL Glucometer 322 H 70-110 MG/DL Lactic Acid Level 1.24 0.50-2.00 MMOL/L Beta-Hydroxybutyrate (Chem panel) 6.02 H 0.00-0.27 MMOL/L Test 04/13/23 06:09 04/13/23 07:38 04/13/23 10:07 Range/Units Urine Color YELLOW Urine Clarity SL CLOUDY Urine pH 5.5 5-9 Urine Specific [place] 1.025 H 1.016-1.022 Urine Protein 2+ H NEGATIVE Urine Glucose (UA) 3+ H NEGATIVE Urine Ketones TRACE H NEGATIVE Urine Nitrite NEGATIVE NEGATIVE Urine Bilirubin 1+ H NEGATIVE Urine Urobilinogen 0.2 < = 1.0 MG/DL Urine Leukocyte Esterase 1+ H NEGATIVE Urine RBC (Auto) 3+ H NEGATIVE Urine RBC 25-50 H /HPF Urine WBC 10-25 H /HPF Urine Squamous Epithelial Cells RARE /HPF Urine Crystals NONE /LPF Urine Bacteria MODERATE H /HPF Urine Casts PRESENT /LPF Urine Hyaline Casts 0-2 H /LPF Urine Granular Casts 0-2 H /LPF Urine Mucus NEGATIVE /LPF Urine Culture Indicated CULTURE PENDING Urine Opiates Screen NEGATIVE NEGATIVE Urine Oxycodone Screen NEGATIVE NEGATIVE Urine Methadone Screen NEGATIVE NEGATIVE Urine Propoxyphene Screen NEGATIVE NEGATIVE Urine Barbiturates Screen NEGATIVE NEGATIVE Ur Tricyclic Antidepressants Screen NEGATIVE NEGATIVE Urine Phencyclidine Screen NEGATIVE NEGATIVE Urine Amphetamines Screen NEGATIVE NEGATIVE Urine Methamphetamines Screen NEGATIVE NEGATIVE Urine Benzodiazepines Screen NEGATIVE NEGATIVE Urine Cocaine Screen NEGATIVE NEGATIVE Urine Cannabinoids Screen POSITIVE H NEGATIVE Glucometer 175 H 155 H 70-110 MG/DL (FAREED RIZZO MD) My Orders Orders - FAREED RIZZO MD Ceftriaxone Iv/Im (Rocephin Iv/Im) (04/13/23 07:00) Ondansetron Injection (Zofran Injectio (04/13/23 09:30) (FAREED RIZZO MD) Medications Given in ED Current Medications Medications Dose Ordered Sig/Iza Route Start Time Stop Time Status Last Admin Dose Admin Cefepime HCl 1000 mg/Sodium Chloride 50 ml @ 100 mls/hr ONCE ONCE IV 04/13/23 06:00 04/13/23 07:39 DC 04/13/23 06:32 100 MLS/HR Insulin Human Regular 10 unit ONCE ONCE IV 04/13/23 06:15 04/13/23 06:16 DC 04/13/23 06:31 10 UNIT Metoclopramide HCl 10 mg ONCE ONCE IVP 04/13/23 06:45 04/13/23 06:46 DC 04/13/23 06:35 10 MG Ondansetron HCl 4 mg ONCE ONCE IVP 04/13/23 05:30 04/13/23 05:31 DC 04/13/23 05:32 4 MG Ondansetron HCl 4 mg ONCE ONCE IVP 04/13/23 09:30 04/13/23 09:31 DC 04/13/23 09:30 4 MG Pantoprazole 40 mg ONCE ONCE IV 04/13/23 05:30 04/13/23 05:31 DC 04/13/23 05:32 40 MG (FAREED RIZZO MD) Vital Signs/I&O 04/13/23 05:09 Temp 36.4 Pulse 115 Resp 18 B/P (MAP) 189/75 (113) Pulse Ox 100 O2 Delivery Room Air (FAREED RIZZO MD) Vital Signs/I&O Capillary Refill : (ANEL ALVARADO DO) Progress Note : Progress Note GIVEN: -IV FLUIDS -ZOFRAN -PROTONIX -CEFEPIME -INSULIN -REGLAN CBC WITH ELEVATED WBC OF 23.8. SEPSIS PROTOCOL INITIATED. REVIEWED PRIOR RECORDS, MULTIPLE ER VISITS AND ADMITS FOR DIABETES RELATED COMPLAINTS, MANY ADMITS FOR DKA. 0700--CARE TURNED OVER TO DR. RIZZO AT SHIFT CHANGE. LAB PENDING. (ANEL ALVARADO DO) Progress Note : Progress Note Review of prior urine cultures demonstrated multiple cultures with highly resistant strains of E. coli sensitive to minocycline. (FAREED RIZZO MD) Departure Impression Primary Impression: Nausea and vomiting Qualified Codes: R11.2 - Nausea with vomiting, unspecified Additional Impressions: Urinary tract infection Qualified Codes: N39.0 - Urinary tract infection, site not specified Hypokalemia Renal failure treated with peritoneal dialysis Diabetes type 1, controlled Qualified Codes: E10.8 - Type 1 diabetes mellitus with unspecified complications Disposition: HOME, SELF-CARE Condition: Improved Departure-Patient Inst. Decision time for Depature: 10:20 (FAREED RIZZO MD) Referrals: NO,LOCAL PHYSICIAN (PCP/Family) Primary Care Physician Patient Instructions: Urinary Tract Infection, Adult ED Add. Discharge Instructions: Start your cefdinir antibiotic tomorrow and take it every other day. Also take doxycycline as prescribed twice daily. Take your first dose upon pick ing up medications today and your second dose this evening. Use the Zofran (ondansetron) as your primary medication for nausea control. Add Reglan (metoclopramide) for nausea and vomiting not controlled by Zofran. Follow-up with your primary care provider soon as possible next week to review urine culture results and follow-up on your condition. You should have your primary care provider or sour bleaching pleater check your potassium level again early this week. Your potassium was low at 3.0 in the emergency room. You may wish to increase your potassium intake slightly with some foods or beverages containing potassium such as banana, potato, citrus fruits or juices, etc. as long as you are continuing dialysis. Drink plenty of water. Return to the emergency room if you have worsening symptoms despite following these instructions. Scripts Metoclopramide HCl (Reglan) 5 Mg Tablet 0.5 TAB PO Q6H PRN for NAUSEA-2ND LINE, #5 TAB Prov: FAREED RIZZO MD 04/13/23 Ondansetron (Ondansetron Odt) 4 Mg Tab.rapdis 4 MG SL Q4H PRN for NAUSEA/VOMITING, #10 TAB Prov: FAREED RIZZO MD 04/13/23 Cefdinir (Cefdinir) 300 Mg Capsule 300 MG PO UD, #5 CAP 0 Refills Start 04/14/23. Take every other day (every 48 hours) after dialysis. Prov: FAREED RIZZO MD 04/13/23 Doxycycline Hyclate (Doxycycline Hyclate) 100 Mg Tablet 100 MG PO BID, #20 TAB 0 Refills Prov: FAREED RIZZO MD 04/13/23 Copy Copies To 1: CLARITA GARCIA MD, LISA K DO April 13, 2023 05:21 FAREED RIZZO MD April 13, 2023 10:25
[2023-04-13] MEDS ORDERED: NS IV 1000 ML 1,000 ML IV SCH ×2 (05:30→06:30)
[2023-04-13] MEDS ORDERED: PANTOPRAZOLE 40 MG (PROTONIX) VIAL IV ONE (05:30)
[2023-04-13] MEDS ORDERED: ONDANSETRON 4 MG/2 ML (SDV) Z0FRAN IVP ONE ×3 (05:30→10:30)
[2023-04-13 05:32] LABS: BASOPHILS % (AUTO) 0 % (0-10); EOSINOPHILS % (AUTO) 0 % (0-10); HEMATOCRIT 29 % (35-52); HEMOGLOBIN 10.3 g/dL (11.5-16.0); LYMPHOCYTES # (AUTO) 1.9 10^3/uL (1.0-4.0); LYMPHOCYTES % (AUTO) 8 % (12-44); MEAN CORPUSCULAR HEMOGLOBIN 29 pg (25-34); MEAN CORPUSCULAR HGB CONC 35 g/dL (32-36); MEAN CORPUSCULAR VOLUME 81 fL (80-99); MEAN PLATELET VOLUME 11.5 fL (9.0-12.2); MONOCYTES % (AUTO) 8 % (0-12); NEUTROPHILS # (AUTO) 19.6 10^3/uL (1.8-7.8); NEUTROPHILS % (AUTO) 82 % (42-75); PLATELET COUNT 343 10^3/uL (130-400); WHITE BLOOD COUNT 23.8 10^3/uL (4.3-11.0)
[2023-04-13 05:50] LABS: PROTHROMBIN TIME PATIENT 13.2 SEC (12.2-14.7)
[2023-04-13 05:51] LABS: ALBUMIN 4.1 GM/DL (3.2-4.5); CHLORIDE 76 MMOL/L (98-107); SODIUM 134 MMOL/L (135-145)
[2023-04-13 05:52] LABS: CALCIUM 9.8 MG/DL (8.5-10.1)
[2023-04-13 05:53] LABS: AMYLASE 63 U/L (25-125)
[2023-04-13 05:54] LABS: GLUCOSE 323 MG/DL (70-105); TOTAL PROTEIN 7.8 GM/DL (6.4-8.2)
[2023-04-13 05:55] LABS: BILIRUBIN,TOTAL 0.7 MG/DL (0.1-1.0); CARBON DIOXIDE 23 MMOL/L (21-32)
[2023-04-13 05:57] LABS: ALKALINE PHOSPHATASE 86 U/L (40-136); CREATININE SERUM 8.88 MG/DL (0.60-1.30); GFR ESTIMATED 5
[2023-04-13 05:58] LABS: BUN/CREATININE RATIO 14
[2023-04-13 06:00] LABS: ALANINE AMINOTRANSFERASE 48 U/L (0-55); MAGNESIUM 2.3 MG/DL (1.6-2.4)
[2023-04-13] MEDS ORDERED: CEFEPIME INJECTION 1,000 MG in NS (IVPB) 50 ML IV ONE (06:00)
[2023-04-13 06:01] LABS: LIPASE 49 U/L (8-78)
[2023-04-13] MEDS ORDERED: inSUlin (REGULAR) HUMAN 1 UNIT/0.01 ML (CHARGE PER UNIT) IV ONE (06:15)
[2023-04-13 06:20] LABS: BILIRUBIN,URINE 1+ (NEGATIVE); CLARITY,URINE SL CLOUDY; COLOR,URINE YELLOW; GLUCOSE, URINE (UA) 3+ (NEGATIVE); KETONES,URINE TRACE (NEGATIVE); LEUKOCYTE ESTERASE ,URINE 1+ (NEGATIVE); NITRITE,URINE NEGATIVE (NEGATIVE); PH,URINE 5.5 (5-9); PROTEIN,URINE 2+ (NEGATIVE)
[2023-04-13 06:38] LABS: AMPHETAMINE SCREEN, URINE NEGATIVE (NEGATIVE); BARBITURATE SCREEN URINE NEGATIVE (NEGATIVE); BENZODIAZEPINES SCREEN URINE NEGATIVE (NEGATIVE); CANNABINOID SCREEN, URINE POSITIVE (NEGATIVE); COCAINE SCREEN URINE NEGATIVE (NEGATIVE); METHADONE STAT NEGATIVE (NEGATIVE); OPIATE SCREEN URINE NEGATIVE (NEGATIVE); OXYCODONE STAT NEGATIVE (NEGATIVE); PROPOXYPHENE STAT NEGATIVE (NEGATIVE); TRICYCLIC ANTIDEPRESSANTS SCRE NEGATIVE (NEGATIVE)
[2023-04-13 06:42] LABS: BACTERIA,URINE MODERATE /HPF; GRANULAR CASTS,URINE 0-2 /LPF; HYALINE CASTS, URINE 0-2 /LPF; RBC,URINE 25-50 /HPF; SQUAMOUS EPITHELIAL CELL,UR RARE /HPF
[2023-04-13] MEDS ORDERED: METOCLOPRAMIDE INJ 10 MG/2 ML (REGLAN) IVP ONE (06:45)
[2023-04-13 06:58] LABS: HYPOCHROMASIA MODERATE; LYMPHOCYTES % (MANUAL) 8 %; MONOCYTES % (MANUAL) 12 %; NEUTROPHILS % (MANUAL) 80 %; PLATELET ESTIMATE ADEQUATE; POIKILOCYTOSIS SLIGHT
[2023-04-13] MEDS ORDERED: cefTRIAXone IV/IM 1,000 MG in NS (IVPB) 50 ML IV STA (07:00)
[2023-04-13] MEDS ORDERED: CEFD300C3 PO (10:27)
[2023-04-13] MEDS ORDERED: METO5TAB75 PO (10:27)
[2023-04-13] MEDS ORDERED: ONDA4TAB11 SL (10:27)
[2023-04-13] MEDS ORDERED: DOXY100T2 PO (10:27)
[2023-04-13 10:34] VITALS: BP 179/63
== END 2023-04-13 10:34 | disposition home or self-care (01) ==
LOC: EDUNIT# 05:08 → ER 05:10
DX: R11.2 Nausea with vomiting, unspecified (principal); N39.0 Urinary tract infection, site not specified; E87.6 Hypokalemia; E10.22 Type 1 diabetes mellitus with diabetic chronic kidney disease; I12.0 Hypertensive chronic kidney disease with stage 5 chronic kidney disease or end stage renal disease; N18.6 End stage renal disease; Z99.2 Dependence on renal dialysis; Z87.891 Personal history of nicotine dependence; Z28.310 Unvaccinated for COVID-19
CPT/HCPCS: 80053; 80306; 81000; 82010; 82150; 82805; 82947; 83036; 83605; 83690; 83735; 84703; 85007; 85027; 85610; 85730; 87040; 87088; 99284; G0480; 36415; 80320; 87077; 87186

== ENCOUNTER → 2023-05-08 | Outpatient (CLI) | payer MEDICARE, MEDICAID ==
[~2023-05-08] MED LIST changes: +CEFD300C3 PO; +DOXY100T2 PO; +METO5TAB75 PO; +ONDA4TAB11 SL; +SULF-221 PO
[2023-05-08 13:55] LABS: ALBUMIN 3.5 GM/DL (3.2-4.5); BILIRUBIN,TOTAL 0.4 MG/DL (0.1-1.0); CALCIUM 8.3 MG/DL (8.5-10.1); CREATININE SERUM 3.9 MG/DL (0.60-1.30); TOTAL PROTEIN 6.4 GM/DL (6.4-8.2)
[2023-05-08 14:16] LABS: FREE T4 (FREE THYROXINE) 1.01 NG/DL (0.70-1.48)
[2023-05-08 14:39] LABS: POTASSIUM 5.7 MMOL/L (3.6-5.0)
== END ==
LOC: LAB 13:06
PROVIDERS: ATTEND Internal Medicine
DX: E10.69 Type 1 diabetes mellitus with other specified complication (principal); E03.9 Hypothyroidism, unspecified
CPT/HCPCS: 36415; 80053; 80061; 83036; 84439; 84443

== ENCOUNTER 2023-09-08 18:44 | Emergency (ER) | payer MEDICARE, MEDICAID ==
[~2023-09-08] VITALS: Ht 157 cm; Wt 60.0 kg
[~2023-09-08 18:44] MED LIST changes: -ROPI0.253 PO; +ROPI0.2533 PO
--- NOTE | 2023-09-08 20:41 | ED GI ---
General Chief Complaint: Abdominal/GI Problems Stated Complaint: VOMITING Nursing Triage Note: PT TO ED W/ C/O N/V ONSET X3 DAYS. REPORTS LAST DIALYSIS X5 DAYS AGO Source of Information: Patient, Family Exam Limitations: No Limitations History of Present Illness Date Seen by Provider: Sep 08, 2023 Time Seen by Provider: 20:28 Initial Comments Patient is a 43-year-old female who presents to the emergency department with a chief complaint of diffuse pain, nausea vomiting since Saturday, 3 days. She is a type I diabetic also history of end-stage renal disease on peritoneal dialysis, does her peritoneal dialysis 3 times a week, Wednesdays and Fridays. 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 Guera Cifuentes. She states that she missed both Saturday and Saturday night of dialysis. She does have an insulin pump. Her sugars have been in the 400 range. She denies fevers or chills, URI symptoms, productive cough. She is not short of breath. She denies any sick contacts at home. She is not having diarrhea, black or bloody stools. She had routine labs done last week which included a urinalysis due to having symptoms of dysuria. She was diagnosed with urinary tract infection last week prescribed antibiotics but was not able to fill them until Saturday. She states she started taking them today but has vomited them up every time she has tried to take a sip of water. She states she has been trying to drink every hour on the hour but vomits every time. Nothing coffee-ground like, no blood. She has had multiple episodes of DKA but she states this feels different as her blood sugar is not in the 800 range like it usually is when she is in DKA. Timing/Duration: 2-3 Days Severity/Quality: Severe Associated Symptoms: Nausea/Vomiting, Weakness Allergies and Home Medications Allergies Coded Allergies: Uyggwkb-CEM-TqF Reductase Inhibitor (Verified Allergy, Severe, ANAPHYLAXIS, 03/18/12) difficulty breathing, BLE swelling lisinopril (Verified Allergy, Severe, ANAPHYLAXIS, 03/18/12) difficulty breathing, swelling of extremities gabapentin (Verified Allergy, Unknown, 04/23/18) losartan (Verified Allergy, Unknown, 04/23/18) midazolam (Verified Allergy, Unknown, HIVES, 06/06/18) niacin (Verified Allergy, Unknown, 04/23/18) Patient Home Medication List Home Medication List Reviewed: Yes Amlodipine Besylate (Norvasc) 5 Mg Tablet, 2.5 MG PO DAILY, (Reported) Entered as Reported by: GLORY SLOAN on 04/10/22 1124 Aripiprazole (Aripiprazole) 5 Mg Tablet, 5 MG PO DAILY, (Reported) Entered as Reported by: GLORY SLOAN on 04/10/22 112 Calcium Acetate (Calcium Acetate) 667 Mg Capsule, 667 MG PO DAILY, (Reported) Entered as Reported by: GLORY SLOAN on 04/10/22 1124 Cefdinir (Cefdinir) 300 Mg Capsule, 300 MG PO UD Prescribed by: FAREED PRADO on 04/13/23 1027 Desvenlafaxine Succinate (Pristiq ER) 50 Mg Tab.er.24h, 50 MG PO DAILY, (Reported) Entered as Reported by: GLORY SLOAN on 04/10/22 1124 Doxycycline Hyclate (Doxycycline Hyclate) 100 Mg Tablet, 100 MG PO BID Prescribed by: FAREED PRADO on 04/13/23 1027 Insulin Glargine,Hum.rec.anlog (Lantus) 100 Unit/Ml Vial, 10 UNIT SQ HS Prescribed by: JEFF HOOPER on 09/13/22 1224 Levothyroxine Sodium (Levothyroxine) 50 Mcg Capsule, 50 MCG PO DAILY, (Reported) Entered as Reported by: GLORY SLOAN on 04/10/22 112 Loperamide HCl (Loperamide) 2 Mg Capsule, 2 MG PO UD, (Reported) Entered as Reported by: GLORY SLOAN on 04/10/22 1124 Metoclopramide HCl (Reglan) 5 Mg Tablet, 0.5 TAB PO Q6H PRN for NAUSEA-2ND LINE Prescribed by: FAREED PRADO on 04/13/23 1027 Nitrofurantoin Monohyd/M-Cryst (Macrobid 100 mg Capsule) 100 Mg Capsule, 1 TAB PO BID Prescribed by: KARLO CROFT on 07/08/22 1747 Nitrofurantoin Monohyd/M-Cryst (Macrobid 100 mg Capsule) 100 Mg Capsule, 1 TAB PO BID Prescribed by: ANEL ALVARADO on 12/03/22 1123 Ondansetron (Ondansetron Odt) 4 Mg Tab.rapdis, 4 MG SL Q4H PRN for NAUSEA/VOMITING Prescribed by: FAREED PRADO on 04/13/23 1027 Pramipexole (Mirapex) 0.125 Mg Tablet, 0.125 MG PO HS, (Reported) Entered as Reported by: GLORY SLOAN on 04/10/22 1124 Propranolol HCl (Propranolol HCl) 40 Mg Tablet, 40 MG PO BID, (Reported) Entered as Reported by: GLORY SLOAN on 04/10/22 1124 Sulfamethoxazole/Trimethoprim (Bactrim Ds Tablet) 800 Mg-160 Mg Tablet, 1 EACH PO DAILY PRN Prescribed by: GEOFF YOON on 04/18/23 0737 Trazodone HCl (Trazodone HCl) 50 Mg Tablet, 50 MG PO HS PRN for PRN, (Reported) Entered as Reported by: GLORY SLOAN on 04/10/22 1124 Review of Systems Review of Systems Constitutional: see HPI EENTM: No Symptoms Reported Respiratory: No Symptoms Reported Cardiovascular: No Symptoms Reported Gastrointestinal: Abdominal Pain, Nausea, Vomiting Genitourinary: Burning Musculoskeletal: other (Diffuse pain) Skin: no symptoms reported Psychiatric/Neurological: No Symptoms Reported All Other Systems Reviewed Negative Unless Noted: Yes Past Eobpgjr-Bqcrez-Htvbwn Hx Immunizations Up To Date Tetanus Booster (TDap): Less than 5yrs First/Initial COVID19 Vaccinat: NONE Second COVID19 Vaccination Hayden: NONE Third COVID19 Vaccination Date: NONE Seasonal Allergies Seasonal Allergies: No Past Medical History Surgery/Hospitalization HX: TYPE I DIABETIC, INSULIN PUMP, PERITONEAL DIALYSIS, HYPOTHRYIDISM, HYPOTENSION, HYPOGLYCEMIA, CATARACT, CARDIAC CATH, TUBAL, HLD, Surgeries: Yes (PERITONEAL DIALYSIS--SHUNTS X 2 ;CATARACT SURGERY; CARDIAC CATH;FOOT; BTL) Abdominal, Cardiac, Dialysis, Eye Surgery, Orthopedic, Tubal Ligation Respiratory: No Cardiac: Yes Hypertension Neurological: Yes Headaches /Migraines Reproductive Disorders: No 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 LOREDO CONCLUSIONS: 1. No angiographically significant coronary artery disease. 2. Normal left ventricular end-diastolic pressure. 3. 10 mL of contrast was used for the entire study. 4. Left ventricular angiography was not performed to conserve contrast. 5. Ejection fraction was 55% to 60% on echocardiography of 12/2020 and 71% on myocardial perfusion imaging of 01/2021. Physical Exam Vital Signs Vital Signs - First Documented 09/08/23 20:22 Temp 36.9 Pulse 109 Resp 20 B/P (MAP) 177/73 (107) Pulse Ox 100 O2 Delivery Room Air Capillary Refill : Less Than 3 Seconds Height/Weight/BMI Height: 5'2.00" Weight: 128lbs. 0.0oz. 58.749276ki; 24.00 BMI Method:Stated General Appearance: thin, other (Appears chronically ill) HEENT: PERRL/EOMI, other (Dry oral mucosa) Respiratory: lungs clear, normal breath sounds, no respiratory distress, no accessory muscle use Cardiovascular: regular rate, rhythm, tachycardia Gastrointestinal: non tender, soft, other (Peritoneal dialysis catheter in place) Extremities: normal range of motion, normal inspection, no pedal edema Neurologic/Psychiatric: no motor/sensory deficits, alert, normal mood/affect, oriented x 3 Skin: warm/dry, pallor Progress/Results/Core Measures Results/Orders Lab Results Laboratory Tests Test 09/08/23 21:20 09/08/23 21:24 09/08/23 21:41 Range/Units White Blood Count 30.5 *H 4.3-11.0 10^3/uL Red Blood Count 3.82 3.80-5.11 10^6/uL Hemoglobin 11.3 L 11.5-16.0 g/dL Hematocrit 33 L 35-52 % Mean Corpuscular Volume 86 80-99 fL Mean Corpuscular Hemoglobin 30 25-34 pg Mean Corpuscular Hemoglobin Concent 35 32-36 g/dL Red Cell Distribution Width 14.7 H 10.0-14.5 % Platelet Count 238 130-400 10^3/uL Mean Platelet Volume 11.6 9.0-12.2 fL Immature Granulocyte % (Auto) 1 % Neutrophils (%) (Auto) 91 H 42-75 % Lymphocytes (%) (Auto) 3 L 12-44 % Monocytes (%) (Auto) 5 0-12 % Eosinophils (%) (Auto) 0 0-10 % Basophils (%) (Auto) 0 0-10 % Neutrophils # (Auto) 27.6 H 1.8-7.8 10^3/uL Lymphocytes # (Auto) 1.0 1.0-4.0 10^3/uL Monocytes # (Auto) 1.6 H 0.0-1.0 10^3/uL Eosinophils # (Auto) 0.0 0.0-0.3 10^3/uL Basophils # (Auto) 0.1 0.0-0.1 10^3/uL Immature Granulocyte # (Auto) 0.2 H 0.0-0.1 10^3/uL Neutrophils % (Manual) 89 % Lymphocytes % (Manual) 5 % Monocytes % (Manual) 4 % Band Neutrophils 2 % Platelet Estimate ADEQUATE Hypochromasia SLIGHT Venous Blood pH 7.30 L 7.31-7.41 Venous Blood Partial Pressure CO2 36 L 40-52 MMHG Venous Blood HCO3 17 L 22-28 MMOL/L Sodium Level 129 L 135-145 MMOL/L Potassium Level 4.6 3.6-5.0 MMOL/L Chloride Level 90 L 98-107 MMOL/L Carbon Dioxide Level 14 L 21-32 MMOL/L Anion Gap 25 H 5-14 MMOL/L Blood Urea Nitrogen 106 *H 7-18 MG/DL Creatinine 6.85 H 0.60-1.30 MG/DL Estimat Glomerular Filtration Rate 7 BUN/Creatinine Ratio 15 Glucose Level 497 *H 70-105 MG/DL Calcium Level 8.3 L 8.5-10.1 MG/DL Corrected Calcium 8.4 L 8.5-10.1 MG/DL Total Bilirubin 0.5 0.1-1.0 MG/DL Aspartate Amino Transf (AST/SGOT) 21 5-34 U/L Alanine Aminotransferase (ALT/SGPT) 21 0-55 U/L Alkaline Phosphatase 90 40-136 U/L Total Protein 7.8 6.4-8.2 GM/DL Albumin 3.9 3.2-4.5 GM/DL Beta-Hydroxybutyrate (Chem panel) 4.18 H 0.00-0.27 MMOL/L Glucometer 453 *H 70-110 MG/DL SARS-CoV-2 RNA (RT-PCR) Not Detected Not Detecte My Orders Orders - GEOFF YOON MD Ed Iv/Invasive Line Start (09/08/23 20:36) Cbc And Automated Diff (09/08/23 20:36) Comprehensive Metabolic Panel (09/08/23 20:36) Urinalysis (09/08/23 20:36) Covid 19 Inhouse Test (09/08/23 20:36) Beta Hydroxybutyrate (09/08/23 20:36) Venous Blood Gas (09/08/23 20:36) Accucheck Stat ONCE (09/08/23 20:36) Ondansetron Injection (Ondansetron Inj (09/08/23 20:45) Ns (Ivpb) 250 Ml (Sodium Chloride 0.9% 2 (09/08/23 20:45) Manual Differential (09/08/23 21:20) Chest 1 View, Ap/Pa Only (09/08/23 22:32) Insulin (Regular) Per Unit (Insulin (Reg (09/08/23 22:40) Insulin (Regular) Per Unit (Insulin (Reg (09/08/23 22:45) Ceftriaxone Iv/Im (Ceftriaxone Iv/Im) (09/08/23 23:15) Medications Given in ED Current Medications Medications Dose Ordered Sig/Iza Route Start Time Stop Time Status Last Admin Dose Admin Ondansetron HCl 4 mg ONCE ONCE IVP 09/08/23 20:45 09/08/23 20:46 DC 09/08/23 21:20 4 MG Sodium Chloride 250 ml @ 999 mls/hr Q16M ONCE IV 09/08/23 20:45 09/08/23 21:00 DC 09/08/23 20:40 999 MLS/HR Vital Signs/I&O 09/08/23 20:22 Temp 36.9 Pulse 109 Resp 20 B/P (MAP) 177/73 (107) Pulse Ox 100 O2 Delivery Room Air Blood Pressure Mean: 107 Progress Progress Note : Time: 23:20 Diagnostic Imaging Diagonstic Imaging: Xray Plain Films/CT/US/NM/MRI: chest Comments Chest x-ray independently reviewed and interpreted by me. No infiltrate, effusion Departure Impression Primary Impression: DKA, type 1 Qualified Codes: E10.10 - Type 1 diabetes mellitus with ketoacidosis without coma Additional Impression: ESRD (end stage renal disease) on dialysis Disposition: XFER SHT-TRM HOSP Condition: Critical Transfer Transfer Reason: Exceeds level of care Time Spoke to Accepting Phy: 22:35 Transfer Progress Notes DIscussed with Dr Mancilla - ICU [facility], accepts patient for transfer Transfer Time: 23:30 Transfer Facility: [facility] Method of Transfer: EMS Departure-Patient Inst. Referrals: NO,LOCAL PHYSICIAN (PCP/Family) Primary Care Physician GEOFF YOON MD Sep 08, 2023 20:41
[2023-09-08] MEDS ORDERED: NS (IVPB) 250 ML 250 ML IV ONE (20:45)
[2023-09-08] MEDS ORDERED: ONDANSETRON INJECTION 4 MG/2 ML (SDV) IVP ONE ×2 (20:45→23:45)
[2023-09-08 21:33] LABS: BASOPHILS # (AUTO) 0.1 10^3/uL (0.0-0.1); BASOPHILS % (AUTO) 0 % (0-10); EOSINOPHILS % (AUTO) 0 % (0-10); HEMATOCRIT 33 % (35-52); HEMOGLOBIN 11.3 g/dL (11.5-16.0); LYMPHOCYTES % (AUTO) 3 % (12-44); MEAN CORPUSCULAR HEMOGLOBIN 30 pg (25-34); MEAN CORPUSCULAR HGB CONC 35 g/dL (32-36); MEAN CORPUSCULAR VOLUME 86 fL (80-99); MEAN PLATELET VOLUME 11.6 fL (9.0-12.2); MONOCYTES # (AUTO) 1.6 10^3/uL (0.0-1.0); MONOCYTES % (AUTO) 5 % (0-12); NEUTROPHILS # (AUTO) 27.6 10^3/uL (1.8-7.8); NEUTROPHILS % (AUTO) 91 % (42-75); PLATELET COUNT 238 10^3/uL (130-400)
[2023-09-08 21:45] LABS: ALBUMIN 3.9 GM/DL (3.2-4.5); POTASSIUM 4.6 MMOL/L (3.6-5.0); WHITE BLOOD COUNT 30.5 10^3/uL (4.3-11.0)
[2023-09-08 21:46] LABS: CALCIUM 8.3 MG/DL (8.5-10.1)
[2023-09-08 21:48] LABS: TOTAL PROTEIN 7.8 GM/DL (6.4-8.2)
[2023-09-08 21:49] LABS: BILIRUBIN,TOTAL 0.5 MG/DL (0.1-1.0)
[2023-09-08 21:51] LABS: CREATININE SERUM 6.85 MG/DL (0.60-1.30)
[2023-09-08 22:33] LABS: BAND NEUTROPHILS 2 %; LYMPHOCYTES % (MANUAL) 5 %; MONOCYTES % (MANUAL) 4 %; NEUTROPHILS % (MANUAL) 89 %
[2023-09-08 22:34] LABS: HYPOCHROMASIA SLIGHT; PLATELET ESTIMATE ADEQUATE
[2023-09-08] MEDS ORDERED: inSUlin (REGULAR) HUMAN 1 UNIT/0.01 ML (CHARGE PER UNIT) IV STA (22:40)
[2023-09-08] MEDS ORDERED: inSUlin (REGULAR) HUMAN 1 UNIT/0.01 ML (CHARGE PER UNIT) SC ONE (22:45)
[2023-09-08] MEDS ORDERED: cefTRIAXone IV/IM 1,000 MG in NS (IVPB) 50 ML 50 ML IV ONE (23:15)
[2023-09-08 23:36] VITALS: BP 176/88
--- NOTE | 2023-09-09 05:56 | Diagnostic Imaging Report ---
CLINICAL INDICATION: Patient with DKA. EXAM: Portable chest x-ray upright view. COMPARISON: Chest x-ray dated 10/30/2022. FINDINGS: Lungs/pleura: Lungs are clear. There is no pneumothorax. There is no pleural effusion. Mediastinum: Unremarkable. Pulmonary vasculature: Unremarkable. Heart: Unremarkable. Bones/extrathoracic soft tissue: Unremarkable. IMPRESSION: There is no radiographic evidence of acute cardiopulmonary process. Dictated by: Dictated on workstation # [id number]
== END 2023-09-08 23:36 | disposition short-term general hospital (02) ==
LOC: EDUNIT# 18:44 → ER 18:45
DX: E10.10 Type 1 diabetes mellitus with ketoacidosis without coma (principal); I12.0 Hypertensive chronic kidney disease with stage 5 chronic kidney disease or end stage renal disease; E10.22 Type 1 diabetes mellitus with diabetic chronic kidney disease; N18.6 End stage renal disease; Z99.2 Dependence on renal dialysis; Z96.41 Presence of insulin pump (external) (internal); Z20.822 Contact with and (suspected) exposure to COVID-19; Z87.891 Personal history of nicotine dependence; Z28.310 Unvaccinated for COVID-19; Z79.899 Other long term (current) drug therapy
CPT/HCPCS: 36415; 71045; 80053; 82010; 82805; 82947; 85007; 85027; 87636

== ENCOUNTER 2023-09-15 06:48 | Emergency (ER) | payer MEDICARE, MEDICAID ==
[~2023-09-15] VITALS: Ht 157 cm; Wt 60.7 kg
[2023-09-15] MEDS ORDERED: ONDANSETRON INJECTION 4 MG/2 ML (SDV) IVP ONE (07:45)
--- NOTE | 2023-09-15 07:48 | ED General ---
General Chief Complaint: Glucose Problems Stated Complaint: WEAK Nursing Triage Note: PT PRESENTS TO ED WITH COMPLAINTS OF NOT FEELING WELL SINCE SHE WAS DISCHARGED FROM [facility] ON SATURDAY. PT REPORTS SHE HAS NOT BEEN ABLE TO KEEP HER BLOOD SUGARS DOWN AND SHE CANNOT KEEP LIQUIDS OR HER MEDICATIONS DOWN DUE TO HER VOMITING. PT USES PERITONEAL DIALYSIS. Source of Information: Patient, Old Records Exam Limitations: No Limitations History of Present Illness Date Seen by Provider: Sep 15, 2023 Time Seen by Provider: 07:30 Initial Comments This is a 43-year-old woman with end-stage renal failure on peritoneal dialysis presents to the emergency room with complaints of vomiting for the past 2 days. She denies diarrhea or fever. She has had myalgias. She denies cough or shortness of breath. She was discharged from [facility] in [place] on Saturday after being treated for DKA and urinary tract infection. She is not taking any medications for UTI at home. She still makes urine and voids 5-6 times daily. She performs peritoneal dialysis 3 times a week. She reports her GFR was 12 at [facility] on September 11. Her last dialysis was Saturday night. She was markedly hypertensive on arrival, which she states is not unusual for her. She tolerates marked hypertension when supine because she has extreme orthostatic hypotension upon rising in general. She has not been able to keep her medications down due to vomiting. Her blood sugars have been high which she has been trying to manage with her insulin pump. She tried taking reglan without benefit. Her PCP is at [facility]. Her diet consultant is Dr. Guera Cifuentes. Allergies and Home Medications Allergies Coded Allergies: [id number] Reductase Inhibitor (Verified Allergy, Severe, ANAPHYLAXIS, 03/18/12) difficulty breathing, BLE swelling lisinopril (Verified Allergy, Severe, ANAPHYLAXIS, 03/18/12) difficulty breathing, swelling of extremities gabapentin (Verified Allergy, Unknown, 04/23/18) losartan (Verified Allergy, Unknown, 04/23/18) midazolam (Verified Allergy, Unknown, HIVES, 06/06/18) niacin (Verified Allergy, Unknown, 04/23/18) Patient Home Medication List Home Medication List Reviewed: Yes Amlodipine Besylate (Norvasc) 5 Mg Tablet, 2.5 MG PO DAILY, (Reported) Entered as Reported by: GLORY SLOAN on 04/10/22 1124 Aripiprazole (Aripiprazole) 5 Mg Tablet, 5 MG PO DAILY, (Reported) Entered as Reported by: GLORY SLOAN on 04/10/22 1124 Calcium Acetate (Calcium Acetate) 667 Mg Capsule, 667 MG PO DAILY, (Reported) Entered as Reported by: GLORY SLOAN on 04/10/22 1124 Cefdinir (Cefdinir) 300 Mg Capsule, 300 MG PO UD Prescribed by: FAREED PRADO on 04/13/23 1027 Desvenlafaxine Succinate (Pristiq ER) 50 Mg Tab.er.24h, 50 MG PO DAILY, (Reported) Entered as Reported by: GLORY SLOAN on 04/10/22 1124 Doxycycline Hyclate (Doxycycline Hyclate) 100 Mg Tablet, 100 MG PO BID Prescribed by: FAREED PRADO on 04/13/23 1027 Insulin Glargine,Hum.rec.anlog (Lantus) 100 Unit/Ml Vial, 10 UNIT SQ HS Prescribed by: JEFF HOOPER on 09/13/22 1224 Levothyroxine Sodium (Levothyroxine) 50 Mcg Capsule, 50 MCG PO DAILY, (Reported) Entered as Reported by: GLORY SLOAN on 04/10/22 1124 Loperamide HCl (Loperamide) 2 Mg Capsule, 2 MG PO UD, (Reported) Entered as Reported by: GLORY SLOAN on 04/10/22 1124 Metoclopramide HCl (Reglan) 5 Mg Tablet, 0.5 TAB PO Q6H PRN for NAUSEA-2ND LINE Prescribed by: FAREED PRADO on 04/13/23 1027 Nitrofurantoin Monohyd/M-Cryst (Macrobid 100 mg Capsule) 100 Mg Capsule, 1 TAB PO BID Prescribed by: KARLO CROFT on 07/08/22 1747 Nitrofurantoin Monohyd/M-Cryst (Macrobid 100 mg Capsule) 100 Mg Capsule, 1 TAB PO BID Prescribed by: ANEL ALVARADO on 12/03/22 1123 Ondansetron (Ondansetron Odt) 4 Mg Tab.rapdis, 4 MG SL Q4H PRN for NAUSEA/VOMITING Prescribed by: FAREED PRADO on 04/13/23 1027 Ondansetron (Ondansetron Odt) 4 Mg Tab.rapdis, 4 MG SL Q4H PRN for NAUSEA/VOMITING Prescribed by: FAREED PRADO on 09/15/23 1209 Pramipexole (Mirapex) 0.125 Mg Tablet, 0.125 MG PO HS, (Reported) Entered as Reported by: GLORY SLOAN on 04/10/22 1124 Promethazine HCl (Promethazine HCl) 12.5 Mg Tablet, 12.5 MG PO Q6H PRN for NAUSEA-2ND LINE Prescribed by: FAREED PRADO on 09/15/23 1209 Propranolol HCl (Propranolol HCl) 40 Mg Tablet, 40 MG PO BID, (Reported) Entered as Reported by: GLORY SLOAN on 04/10/22 1124 Sulfamethoxazole/Trimethoprim (Bactrim Ds Tablet) 800 Mg-160 Mg Tablet, 1 EACH PO DAILY PRN Prescribed by: GEOFF YOON on 04/18/23 0737 Trazodone HCl (Trazodone HCl) 50 Mg Tablet, 50 MG PO HS PRN for PRN, (Reported) Entered as Reported by: GLORY SLOAN on 04/10/22 1124 Review of Systems Review of Systems Constitutional: no symptoms reported EENTM: no symptoms reported Respiratory: no symptoms reported Cardiovascular: see HPI Gastrointestinal: see HPI Genitourinary: see HPI : No Musculoskeletal: see HPI Skin: no symptoms reported Psychiatric/Neurological: No Symptoms Reported Hematologic/Lymphatic: No Symptoms Reported Immunological/Allergic: no symptoms reported Past Mmuwyuo-Khrdjm-Inphbq Hx Patient Social History Tobacco Use?: No Substance use?: Yes Substance type: Marijuana Alcohol Use?: No Pt feels they are or have been: No Immunizations Up To Date Tetanus Booster (TDap): Less than 5yrs First/Initial COVID19 Vaccinat: NONE Second COVID19 Vaccination Hayden: NONE Third COVID19 Vaccination Date: NONE Seasonal Allergies Seasonal Allergies: No Past Medical History Surgery/Hospitalization HX: TYPE I DIABETIC, INSULIN PUMP, PERITONEAL DIALYSIS, HYPOTHRYIDISM, HYPOTENSION, HYPOGLYCEMIA, CATARACT, CARDIAC CATH, TUBAL, HLD, Surgeries: Yes (PERITONEAL DIALYSIS--SHUNTS X 2 ;CATARACT SURGERY; CARDIAC CATH;FOOT; BTL) Abdominal, Cardiac, Dialysis, Eye Surgery, Orthopedic, Tubal Ligation Respiratory: No Cardiac: Yes (orthostatic hypotension) Hypertension Neurological: Yes (Restless leg syn) Headaches /Migraines 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: Tubal Ligation Sexually Transmitted Disease: No HIV/AIDS: No Genitourinary: Yes (PERITONEAL DIALYSIS X 3 YEARS) Bladder Infection, Dialysis Gastrointestinal: Yes Irritable Bowel Musculoskeletal: No Endocrine: Yes (TYPE 1 DIABETES-DX AGE 7; INSULIN PUMP; MULTIPLE EPISODES OF DKA) Diabetes, Insulin dep, Hypothyroidsim HEENT: No Cancer: No Psychosocial: Yes Sleep Difficulties, Depression Integumentary: No Blood Disorders: Yes (ANEMIA) Adverse Reaction/Blood Tranf: No Family Medical History SOCIAL HISTORY: -SMOKED 1 PPD, QUIT 16 YEARS AGO -ETOH--DENIES USE -DRUGS--THC DAILY CARDIAC CATH 04/10/[address] LOREDO CONCLUSIONS: 1. No angiographically significant coronary artery disease. 2. Normal left ventricular end-diastolic pressure. 3. 10 mL of contrast was used for the entire study. 4. Left ventricular angiography was not performed to conserve contrast. 5. Ejection fraction was 55% to 60% on echocardiography of 12/2020 and 71% on myocardial perfusion imaging of 01/2021. Physical Exam Vital Signs Vital Signs - First Documented 09/15/23 07:10 Temp 36.8 Pulse 111 Resp 18 B/P (MAP) 219/93 (135) Pulse Ox 99 Capillary Refill : Less Than 3 Seconds Height, Weight, BMI Height: 5'2.00" Weight: 128lbs. 0.0oz. 58.413797zy; 24.00 BMI Method:Stated General Appearance: No Apparent Distress, Mild Distress HEENT: PERRL/EOMI, Normal ENT Inspection Neck: Normal Inspection Respiratory: Lungs Clear, Normal Breath Sounds, No Respiratory Distress Cardiovascular: Regular Rate, Rhythm, No Edema, No Murmur Gastrointestinal: Normal Bowel Sounds, Non Tender, Soft; No Distended Back: Normal Inspection Extremity: Normal Inspection, No Pedal Edema Neurologic/Psychiatric: Alert, Oriented x3, No Motor/Sensory Deficits, Normal Mood/Affect Skin: Normal Color, Warm/Dry Focused Exam Lactate Level 09/15/23 09:03: Lactic Acid Level 0.67 Lactic Acid Level Laboratory Tests Test 09/15/23 09:03 Lactic Acid Level 0.67 MMOL/L (0.50-2.00) Progress/Results/Core Measures Suspected Sepsis SIRS Temperature: Pulse: 111 Respiratory Rate: 18 Laboratory Tests 09/15/23 07:19: White Blood Count 19.3H Blood Pressure 219 /93 Mean: 135 09/15/23 09:03: Lactic Acid Level 0.67 Laboratory Tests 09/15/23 07:19: Creatinine 5.55#H, INR Comment 0.9, Platelet Count 240, Total Bilirubin 0.5 Results/Orders Lab Results Laboratory Tests Test 09/15/23 07:08 09/15/23 07:19 09/15/23 07:44 09/15/23 08:30 Range/Units Glucometer 365 H 70-110 MG/DL White Blood Count 19.3 H 4.3-11.0 10^3/uL Red Blood Count 3.70 L 3.80-5.11 10^6/uL Hemoglobin 10.7 L 11.5-16.0 g/dL Hematocrit 33 L 35-52 % Mean Corpuscular Volume 88 80-99 fL Mean Corpuscular Hemoglobin 29 25-34 pg Mean Corpuscular Hemoglobin Concent 33 32-36 g/dL Red Cell Distribution Width 14.4 10.0-14.5 % Platelet Count 240 130-400 10^3/uL Mean Platelet Volume 12.1 9.0-12.2 fL Immature Granulocyte % (Auto) 1 % Neutrophils (%) (Auto) 88 H 42-75 % Lymphocytes (%) (Auto) 5 L 12-44 % Monocytes (%) (Auto) 6 0-12 % Eosinophils (%) (Auto) 0 0-10 % Basophils (%) (Auto) 0 0-10 % Neutrophils # (Auto) 17.0 H 1.8-7.8 10^3/uL Lymphocytes # (Auto) 0.9 L 1.0-4.0 10^3/uL Monocytes # (Auto) 1.2 H 0.0-1.0 10^3/uL Eosinophils # (Auto) 0.0 0.0-0.3 10^3/uL Basophils # (Auto) 0.1 0.0-0.1 10^3/uL Immature Granulocyte # (Auto) 0.2 H 0.0-0.1 10^3/uL Neutrophils % (Manual) 88 % Lymphocytes % (Manual) 7 % Monocytes % (Manual) 3 % Eosinophils % (Manual) 0 % Basophils % (Manual) 0 % Band Neutrophils 2 % Macrocytosis Stomatocytes MODERATE Prothrombin Time 12.5 12.2-14.7 SEC INR Comment 0.9 0.8-1.4 Activated Partial Thromboplast Time 24 24-35 SEC Sodium Level 134 L 135-145 MMOL/L Potassium Level 4.2 3.6-5.0 MMOL/L Chloride Level 94 L 98-107 MMOL/L Carbon Dioxide Level 18 L 21-32 MMOL/L Anion Gap 22 H 5-14 MMOL/L Blood Urea Nitrogen 68 H 7-18 MG/DL Creatinine 5.55 #H 0.60-1.30 MG/DL Estimat Glomerular Filtration Rate 9 BUN/Creatinine Ratio 12 Glucose Level 418 *H 70-105 MG/DL Calcium Level 9.3 8.5-10.1 MG/DL Corrected Calcium 9.6 8.5-10.1 MG/DL Magnesium Level 2.1 1.6-2.4 MG/DL Total Bilirubin 0.5 0.1-1.0 MG/DL Aspartate Amino Transf (AST/SGOT) 142 H 5-34 U/L Alanine Aminotransferase (ALT/SGPT) 248 H 0-55 U/L Alkaline Phosphatase 81 40-136 U/L Total Protein 7.0 6.4-8.2 GM/DL Albumin 3.6 3.2-4.5 GM/DL Urine Color YELLOW Urine Clarity CLEAR Urine pH 5.5 5-9 Urine Specific [place] 1.010 L 1.016-1.022 Urine Protein 3+ H NEGATIVE Urine Glucose (UA) 2+ H NEGATIVE Urine Ketones 2+ H NEGATIVE Urine Nitrite NEGATIVE NEGATIVE Urine Bilirubin 1+ H NEGATIVE Urine Urobilinogen 0.2 < = 1.0 MG/DL Urine Leukocyte Esterase NEGATIVE NEGATIVE Urine RBC (Auto) 2+ H NEGATIVE Urine RBC NONE /HPF Urine WBC RARE /HPF Urine Squamous Epithelial Cells 2-5 /HPF Urine Crystals NONE /LPF Urine Bacteria TRACE /HPF Urine Casts NONE /LPF Urine Mucus NEGATIVE /LPF Urine Culture Indicated NO Influenza Type A (RT-PCR) Not Detected Not Detecte Influenza Type B (RT-PCR) Not Detected Not Detecte SARS-CoV-2 RNA (RT-PCR) Not Detected Not Detecte C-Reactive Protein High Sensitivity 0.73 H 0.00-0.50 MG/DL Test 09/15/23 09:03 Range/Units Lactic Acid Level 0.67 0.50-2.00 MMOL/L Micro Results Microbiology 09/15/23 Blood Culture - Preliminary, Resulted 09/15/23 Blood Culture - Preliminary, Resulted Gram Positive Narayan See Comments My Orders Orders - FAREED RIZZO MD Cbc And Automated Diff (09/15/23 07:44) Comprehensive Metabolic Panel (09/15/23 07:44) Magnesium (09/15/23 07:44) Ua Culture If Indicated (09/15/23 07:44) Ed Iv/Invasive Line Start (09/15/23 07:44) Covid 19 Inhouse Test (09/15/23 07:44) Influenza A And B By Pcr (09/15/23 07:44) Ondansetron Injection (Ondansetron Inj (09/15/23 07:45) Manual Differential (09/15/23 07:19) Hs C Reactive Protein (09/15/23 08:27) Blood Culture (09/15/23 08:27) Sputum Culture (09/15/23 08:27) Protime With Inr (09/15/23 08:27) Partial Thromboplastin Time (09/15/23 08:27) Chest 1 View, Ap/Pa Only (09/15/23 08:27) Vital Signs Adult Sepsis Patie Q15M (09/15/23 08:27) Remove Rings In Anticipation O (09/15/23 08:27) Lactic Acid Analyzer (09/15/23 08:27) Scopolamine Patch (Scopolamine Patch) (09/15/23 11:00) Promethazine Injection (Promethazine I (09/15/23 11:00) Ns (Ivpb) 250 Ml (Sodium Chloride 0.9% 2 (09/15/23 11:00) Medications Given in ED Vital Signs/I&O 09/15/23 09/15/23 07:10 12:23 Temp 36.8 Pulse 111 98 Resp 18 18 B/P (MAP) 219/93 (135) 167/81 Pulse Ox 99 100 Capillary Refill : Less Than 3 Seconds Blood Pressure Mean: 135 Progress Note #1: Progress Note Patient was interviewed and examined. Labs were obtained, reviewed, and interpreted by me. Leukocytosis was noted with WBC of 19.3. However, lactic acid was normal at 0.67 and CRP was normal at 0.73. There was slight anemia on the CBC with hemoglobin of 10.7. Coag panel was negative. Creatinine was 5.55 with a GFR of 12 which is patient's baseline. Urinalysis demonstrated 2+ ketones. Transaminases were elevated with AST of 142 and ALT of 248. Flu and COVID swabs were negative. Nausea and vomiting was treated with Zofran 8 mg IV. Progress Note #2: Time: 10:52 Progress Note Patient exhibited leukocytosis on her lab evaluation but no source of infection could be found. Patient expressed a desire for discharge with antiemetic prescriptions if her nausea was well controlled. She attempted an oral water challenge but became rather nauseated. She is being further treated with Phenergan 12.5 mg IV and 250 mL normal saline and a scopolamine patch. We will attempt an oral fluid challenge again after that treatment. Progress Note #3: Progress Note Patient was ready for discharge additional medications. Blood pressure improved to an acceptable level without targeted intervention. See discharge instructions for further discussion. Departure Impression Primary Impression: Nausea and vomiting Qualified Codes: R11.2 - Nausea with vomiting, unspecified Additional Impressions: Leukocytosis Qualified Codes: D72.829 - Elevated white blood cell count, unspecified End stage renal failure on dialysis Labile hypertension Hyperglycemia Disposition: 01 HOME, SELF-CARE Condition: Improved Departure-Patient Inst. Decision time for Depature: 12:04 Referrals: NO,LOCAL PHYSICIAN (PCP/Family) Primary Care Physician Patient Instructions: Nausea and Vomiting, Adult Add. Discharge Instructions: You may keep your scopolamine patch on for up to 24 hours. Wash your hands with soap and water if you touch the patch. Scopolamine patch may cause some blurry vision and dry mouth. If the symptoms are present and a nuisance, simply remove the patch. You may use Zofran (ondansetron) as prescribed for additional control of nausea and vomiting. [place] Phenergan (promethazine) for breakthrough nausea and vomiting. Phenergan may cause drowsiness, so use with caution. Do not use both Phenergan and Reglan at the same time. Take them at least 6 hours apart. You had an elevated white blood cell count of 19.3 in the emergency room today. No specific cause for this white blood cell count elevation was discovered. Please discuss this with your primary care provider in follow-up. No evidence of infection was found in your ER work-up. Continue peritoneal dialysis as previously directed. Start with a noncarbonated clear liquid diet and gradually advance your diet with small quantities of bland food as tolerated. Adjust your insulin rate and boluses as previously directed to manage your high blood sugars. Return to care if you have worsening symptoms despite following these instructions. All discharge instructions reviewed with patient and/or family. Voiced understanding. Scripts Promethazine HCl (Promethazine HCl) 12.5 Mg Tablet 12.5 MG PO Q6H PRN for NAUSEA-2ND LINE, #10 TAB Prov: FAREED RIZZO MD 09/15/23 Ondansetron (Ondansetron Odt) 4 Mg Tab.rapdis 4 MG SL Q4H PRN for NAUSEA/VOMITING, #10 TAB Prov: FAREED RIZZO MD 09/15/23 Copy Copies To 1: GUERA CIFUENTES MD, JOSHUA T MD Sep 15, 2023 07:48
[2023-09-15 08:11] LABS: ALBUMIN 3.6 GM/DL (3.2-4.5)
[2023-09-15 08:12] LABS: POTASSIUM 4.2 MMOL/L (3.6-5.0)
[2023-09-15 08:13] LABS: CALCIUM 9.3 MG/DL (8.5-10.1)
[2023-09-15 08:16] LABS: BILIRUBIN,TOTAL 0.5 MG/DL (0.1-1.0)
[2023-09-15 08:17] LABS: CREATININE SERUM 5.55 MG/DL (0.60-1.30)
[2023-09-15 08:20] LABS: MAGNESIUM 2.1 MG/DL (1.6-2.4)
[2023-09-15 08:25] LABS: BASOPHILS # (AUTO) 0.1 10^3/uL (0.0-0.1); BASOPHILS % (AUTO) 0 % (0-10); EOSINOPHILS % (AUTO) 0 % (0-10); HEMATOCRIT 33 % (35-52); HEMOGLOBIN 10.7 g/dL (11.5-16.0); LYMPHOCYTES # (AUTO) 0.9 10^3/uL (1.0-4.0); LYMPHOCYTES % (AUTO) 5 % (12-44); MEAN CORPUSCULAR HEMOGLOBIN 29 pg (25-34); MEAN CORPUSCULAR HGB CONC 33 g/dL (32-36); MEAN CORPUSCULAR VOLUME 88 fL (80-99); MEAN PLATELET VOLUME 12.1 fL (9.0-12.2); MONOCYTES # (AUTO) 1.2 10^3/uL (0.0-1.0); MONOCYTES % (AUTO) 6 % (0-12); NEUTROPHILS % (AUTO) 88 % (42-75); PLATELET COUNT 240 10^3/uL (130-400); WHITE BLOOD COUNT 19.3 10^3/uL (4.3-11.0)
[2023-09-15 08:55] LABS: BAND NEUTROPHILS 2 %; BASOPHILS % (MANUAL) 0 %; EOSINOPHILS % (MANUAL) 0 %; LYMPHOCYTES % (MANUAL) 7 %; MONOCYTES % (MANUAL) 3 %; NEUTROPHILS % (MANUAL) 88 %
[2023-09-15 08:56] LABS: STOMATOCYTES MODERATE
[2023-09-15 08:57] LABS: CLARITY,URINE CLEAR; COLOR,URINE YELLOW; GLUCOSE, URINE (UA) 2+ (NEGATIVE); PH,URINE 5.5 (5-9); PROTEIN,URINE 3+ (NEGATIVE)
[2023-09-15 08:58] LABS: BACTERIA,URINE TRACE /HPF; BILIRUBIN,URINE 1+ (NEGATIVE); KETONES,URINE 2+ (NEGATIVE); LEUKOCYTE ESTERASE ,URINE NEGATIVE (NEGATIVE); NITRITE,URINE NEGATIVE (NEGATIVE); WBC,URINE RARE /HPF
[2023-09-15 09:05] LABS: INR 0.9 (0.8-1.4); PROTHROMBIN TIME PATIENT 12.5 SEC (12.2-14.7)
--- NOTE | 2023-09-15 09:13 | Diagnostic Imaging Report ---
INDICATION: Followup leukocytosis, hypertension. COMPARISON: 09/08/2023. DISCUSSION: Single portable upright view of the chest was obtained. Normal heart size. No consolidation, pleural fluid, or pneumothorax. No osseous abnormality. IMPRESSION: 1. Negative chest. Dictated by: Dictated on workstation # [id number]
[2023-09-15] MEDS ORDERED: PROMETHAZINE INJ 25 MG/ML VIAL IVP ONE (11:00)
[2023-09-15] MEDS ORDERED: NS (IVPB) 250 ML 250 ML IV ONE (11:00)
[2023-09-15] MEDS ORDERED: SCOPOLAMINE 1.5 MG PATCH TD ONE (11:00)
[2023-09-15] MEDS ORDERED: ONDA4TAB11 SL (12:09)
[2023-09-15] MEDS ORDERED: PROM12.511 PO (12:09)
[2023-09-15 12:23] VITALS: BP 167/81
== END 2023-09-15 12:23 | disposition home or self-care (01) ==
LOC: EDUNIT# 06:48 → ER 06:50
DX: E10.22 Type 1 diabetes mellitus with diabetic chronic kidney disease (principal); E10.65 Type 1 diabetes mellitus with hyperglycemia; I12.0 Hypertensive chronic kidney disease with stage 5 chronic kidney disease or end stage renal disease; N18.6 End stage renal disease; R74.01 Elevation of levels of liver transaminase levels; D72.829 Elevated white blood cell count, unspecified; Z99.2 Dependence on renal dialysis; Z87.891 Personal history of nicotine dependence; Z11.52 Encounter for screening for COVID-19
CPT/HCPCS: 36415; 71045; 80053; 81000; 82947; 83605; 83735; 85007; 85027; 85610; 85730; 86141; 87040; 87636; 96361; 96374; 96375

== ENCOUNTER → 2023-09-19 | Outpatient (CLI) | payer MEDICARE, MEDICAID ==
[~2023-09-19] MED LIST changes: +PROM12.511 PO
== END ==
LOC: LAB 12:55
PROVIDERS: ATTEND Nurse Practitioner Family
DX: E10.22 Type 1 diabetes mellitus with diabetic chronic kidney disease (principal); N18.30 Chronic kidney disease, stage 3 unspecified
CPT/HCPCS: 36415; 82947; 84681